=== PATIENT | male | born 1970 | race Caucasian/White ===

== ENCOUNTER 2017-11-14 18:24 | Emergency (ER) | payer MEDICAID, SELFPAY ==
[2017-11-14 18:26] VITALS: BP 196/112; PULSE 100; RESP 18; TEMP 36.4; O2SAT 94; BMI 51.5
--- NOTE | 2017-11-14 19:15 | RAD_ITS ---
STUDY: X-RAY - LEFT FOOT CLINICAL: Male, 47 years old. Pain, swelling TECHNIQUE: 3 view(s) of the foot. COMPARISON: None. FINDINGS: Normal talus, calcaneus, and tarsal bones. Normal visualized subtalar, talonavicular, calcaneocuboid, tarsal and tarsometatarsal articulations. Normal metatarsi. Normal metatarsophalangeal joint of the great toe. Normal tibial and fibular sesamoid bones. Normal interphalangeal joint of the great toe. Normal phalanges of the great toe. Normal second through fifth metatarsophalangeal joints. Normal interphalangeal joints and phalanges of the lesser toes. Radiopaque foreign body in the ball of the foot between the first and second metatarsal heads. RAD/Foot min 3 Views IMPRESSION: No fracture or dislocation. Small radiopaque foreign body ball of the foot between the first and second metatarsal heads. Electronically Signed: Richard Campa DO at 20:45 EDT , Service support ,
--- NOTE | 2017-11-14 19:16 | RAD_ITS ---
STUDY: X-RAY - RIGHT FOOT CLINICAL: Male, 47 years old. Pain TECHNIQUE: 3 view(s) of the foot. COMPARISON: None. FINDINGS: Normal talus, calcaneus, and tarsal bones. Normal visualized subtalar, talonavicular, calcaneocuboid, tarsal and tarsometatarsal articulations. Normal metatarsi. Normal metatarsophalangeal joint of the great toe. Normal tibial and fibular sesamoid bones. Normal interphalangeal joint of the great toe. Normal phalanges of the great toe. Normal second through fifth metatarsophalangeal joints. Normal interphalangeal joints and phalanges of the lesser toes. The soft tissue structures are unremarkable. RAD/Foot min 3 Views IMPRESSION: Normal x-ray examination of the foot. Electronically Signed: Richard Campa DO at 21:42 EDT , Service support ,
--- NOTE | 2017-11-14 19:33 | ED.VISSUMM ---
- ER Visit Summary Date of Service: 11/14/17 Chief Complaint: Bilateral foot pain History of Present Illness: The patient is a 47 M presenting with bilateral foot pain. She states this has been ongoing for the past 5-6 months. He has an appointment with his primary care physician on November 24. He states he walks frequently. He [facility]. The pain is in the bottom of his feet. He also states he ran out of his Lasix a month ago. He denies chest pain or shortness of breath. Denies fever or other complaints. Physical Examination: Vitals are stable. Patient is afebrile. Alert no acute distress. HEENT exam is unremarkable. Neck is supple. Lungs are clear and equal bilaterally. Heart is regular rate and rhythm. Abdomen is soft nontender nondistended. Extremities symmetric edema, no warmth or signs of cellulitis. Normal distal pulses. Skin is warm and dry. No focal neurologic deficit. Remainder of exam is unremarkable. Emergency Department Course and Treatment: BGT 154. Right foot x-ray shows no acute process. Left foot x-ray shows no fracture or dislocation. Small radiopaque foreign body ball of the foot between the first and second metatarsal heads. Patient is given Keflex and lasix. He is advised to follow-up with podiatry and his primary care physician. Advised return ED if worsening complaints. Disposition: Discharge home Impression: Bilateral foot pain, foreign body left foot. This note was generated with [employer] dictation software. It may contain incorrect words, spelling, and punctuation that were not noted in review of the chart prior to signing ED Disposition - Plan for ED Patient: Chief Complaint: Lower Extremity Injury Referrals: Care Physician,No Primary [Primary Care Provider] -
[2017-11-14 19:56] LABS: Bedside Glucose 154 mg/dL (70-110)
--- NOTE | 2017-11-14 21:56 | ED.DEP ---
ED Disposition - Plan for ED Patient: Chief Complaint: Lower Extremity Injury Instructions: ED Foreign Body Soft Tissue Prescriptions: Cephalexin [Keflex] 500 mg PO Q6 #40 capsule Furosemide [Lasix] 60 mg PO DAILY #90 tablet Referrals: Care Physician,Mariella Primary [Primary Care Provider] - Jesus Ramos DPM [STAFF PHYSICIAN] -
[2017-11-14] MEDS: Cephalexin 250 MG Capsule 500 MG PO (22:04)
[2017-11-14] MEDS: oxyCODONE 5 MG Tablet PO (22:04)
== END 2017-11-14 22:06 | disposition home or self-care (01) ==
PROVIDERS: Emergency Provider Emergency Medicine
DX: M79.672 Pain in left foot (principal); M79.671 Pain in right foot; S90.852A Superficial foreign body, left foot, initial encounter; E11.9 Type 2 diabetes mellitus without complications; I10 Essential (primary) hypertension
CPT/HCPCS: 73630; 82962; 99283

== ENCOUNTER 2017-12-11 15:31 | Emergency (ER) | payer MEDICAID, SELFPAY ==
[2017-12-11 15:33] VITALS: BP 163/97; PULSE 106; RESP 17; TEMP 36.7; O2SAT 97; BMI 58.4
--- NOTE | 2017-12-11 15:52 | ED.VISSUMM ---
- ER Visit Summary Date of Service: 12/11/17 Chief Complaint: [] Right knee pain after fall yesterday History of Present Illness: The patient is a 47 M [] patient indicates he slipped and fell struck his right knee while walking up stairs yesterday he has had persistent pain he comes in for evaluation he has no head neck chest or abdominal pain no other extremity pain no hip pain no tib-fib foot or ankle pain he is a very large gentleman he denies any past history Physical Examination: [] On exam again very large body habitus he is awake and alert he points directly to his right knee no other complaints head neck chest unremarkable lungs are clear the heart tones are distant abdomen is obese the lower extremities revealed bilateral brawny edema 4+ that he states is not new and chronic he has had for some time the right knee has mild discomfort to the right knee there is no instability deformity. His hip is nontender he has full extension of the knee he has discomfort with flexion his tib-fib ankle and foot are unremarkable the rest of his exam is entirely unremarkable neurologically he is awake alert moving all 4 resting comforting the bed as long as he does not move the knee he has no complaints Test Results: [] Emergency Department Course and Treatment: [] X-ray shows nothing acute other than arthritis see that report of explained the above the patient also the concept of an occult injury he does have crutches at home he can use he will ice the knee follow-up his family physician is given referral to orthopedics [place] [facility] tablets at bedtime and is to return for change in symptoms Treatment Plan: [] Disposition: [] Home stable Impression: [] Acute right knee injury This note was generated with [employer] dictation software. It may contain incorrect words, spelling, and punctuation that were not noted in review of the chart prior to signing ED Disposition - Plan for ED Patient: Chief Complaint: Lower Extremity Injury Referrals: Care Physician,No Primary [Primary Care Provider] -
--- NOTE | 2017-12-11 16:02 | RAD_ITS ---
STUDY: X-RAY - RIGHT KNEE REASON FOR EXAM: Male, 47 years old. Increased right knee pain and swelling after fall. TECHNIQUE: 4 view(s) of the knee. COMPARISON: None. FINDINGS: Normal visualized distal femur. Normal visualized proximal tibia and fibula. Normal proximal tibiofibular articulation. There is moderate degenerative arthrosis of the medial femorotibial compartment with moderate joint space narrowing. There is moderate degenerative arthrosis of the lateral femorotibial compartment with moderate joint space narrowing. There is moderate degenerative arthrosis of the patellofemoral articulation. Moderate suprapatellar effusion is present. RAD/Knee 4 or More Views IMPRESSION: Moderate tricompartmental osteoarthrosis with no evidence of acute fracture. Electronically Signed: Agustin Kaur DO at 16:52 EDT , Service support ,
[2017-12-11] MEDS: HYDROcodone Bitartrate/Apap 5/325 Tablet PO (16:25)
--- NOTE | 2017-12-11 16:58 | ED.DEP ---
ED Disposition - Plan for ED Patient: Chief Complaint: Lower Extremity Injury Instructions: ED Meniscal Injury Knee Poss Prescriptions: Hydrocodone Bitart/Apap 5-325 [[place] 5MG-325MG] 1 tab PO Q4H PRN PRN 2 Days #7 tab PRN Reason: Pain Naproxen [Naprosyn] 500 mg PO BID PRN #20 tab Referrals: Care Physician,No Primary [Primary Care Provider] - Maciel Funes MD [STAFF PHYSICIAN] -
--- NOTE | 2017-12-11 17:00 | ED.DEP ---
ED Disposition - Plan for ED Patient: Chief Complaint: Lower Extremity Injury Instructions: ED Meniscal Injury Knee Poss Prescriptions: Hydrocodone Bitart/Apap 5-325 [[place] 5MG-325MG] 1 tab PO Q4H PRN PRN 2 Days #7 tab PRN Reason: Pain Naproxen [Naprosyn] 500 mg PO BID PRN #20 tab Referrals: Maciel Funes MD [STAFF PHYSICIAN] - Care Physician,No Primary [Primary Care Provider] -
--- NOTE | 2017-12-11 17:28 | ED.RN ---
pt stated he had crutches at home and was used to using them. denied need for new crutches.
== END 2017-12-11 17:29 | disposition home or self-care (01) ==
PROVIDERS: Emergency Provider Emergency Medicine
DX: S89.91XA Unspecified injury of right lower leg, initial encounter (principal); M17.11 Unilateral primary osteoarthritis, right knee; W01.198A Fall on same level from slipping, tripping and stumbling with subsequent striking against other object, initial encounter; Y93.01 Activity, walking, marching and hiking; Y92.89 Other specified places as the place of occurrence of the external cause; Y99.8 Other external cause status
CPT/HCPCS: 73564; 99283

== ENCOUNTER 2018-03-07 01:33 | Emergency (ER) | payer MEDICAID, SELFPAY ==
[2018-03-07 01:33] VITALS: BP 124/91; PULSE 104; RESP 22; TEMP 36.8; O2SAT 92; BMI 58.6
--- NOTE | 2018-03-07 01:58 | CT_ITS ---
CT/Abdomen/Pelvis W IV Cont ONLY IMPRESSION: Atelectasis and/or small infiltrate in the visualized lingula. Fatty liver. Moderate splenomegaly, slightly increased from previous exam. Previous cholecystectomy. Small hiatal hernia. No evidence for acute pathology. No demonstrated urinary calculi or hydronephrosis. No evidence for diverticulitis or appendicitis. Electronically Signed: Raymundo Jain MD at 3:18 EDT , Service support ,
--- NOTE | 2018-03-07 02:01 | ED.DCSUM_ITS ---
- ER Visit Summary Date of Service: 03/07/18 Chief Complaint: Abdominal pain History of Present Illness: The patient is a 47 M who presents for 12 hours of abdominal pain. Patient states the pain is mainly in the right side of his abdomen and feels like someone is punching him repeatedly. Pain waxes and wanes in intensity. Patient denies any associated nausea, vomiting, diarrhea, constipation, urinary complaints. No chest pain or shortness of breath. Patient states he has been gassy today. Pain is worse if he lays down. He had similar pain 3 months ago that resolved without any intervention. Medical history remarkable for borderline diabetes, GERD, [place] surgery for reflux, cholecystectomy. Patient still has his appendix. He is not on any medications. He does smoke tobacco. No alcohol use. Physical Examination: Vital signs: afebrile, hemodynamically stable, no hypoxia on room air General: well nourished, well developed, orbitally obese, in no distress Skin: warm, dry, no rash, no pallor HEENT: normocephalic and atraumatic; PERRL, EOMI, moist mucous membranes Cardiovascular: Tachycardic rate and rhythm without murmurs, nonpitting peripheral edema, 2+ pulses all distal extremities Respiratory: No increased work of breathing, lungs show occasional mild expiratory wheezes, no rales, rhonchi Abdominal: Abdomen is soft, obese, tender in the right mid and lower quadrant, hyperactive bowel sounds, no guarding or rebound, no masses; exam limited secondary to body habitus MSK: Moves all extremities, no deformities, normal strength, chronic skin changes of the bilateral lower extremities Neuro: Awake and alert, oriented ?4. No facial droop, sensation and motor function intact and symmetric Test Results: Abnormal Lab Results 03/07/18 03/07/18 03/07/18 01:43 01:43 03:10 WBC 10.9 RBC 5.49 Hgb 15.8 Hct 47.6 MCV 86.7 MCH 28.8 MCHC 33.2 RDW 13.5 RDW Differential 42.4 Plt Count 69 L MPV 13.7 H Immature Gran % (Auto) 0.500 Neut % (Auto) 74.6 H Lymph % (Auto) 13.5 L [place] % (Auto) 8.4 Eos % (Auto) 2.8 Baso % (Auto) 0.2 Absolute Neuts (auto) 8.2 H Absolute Lymphs (auto) 1.48 Total Counted Not Reportable Sodium 136 Potassium 3.9 Chloride 99 Carbon Dioxide 29.0 Anion Gap 8 BUN 7 Creatinine 1.05 Estim Creat Clear Calc 92.63 Est GFR (MDRD) Af Amer 97 Est GFR (MDRD) Non-Af 80 BUN/Creatinine Ratio 6.7 L Glucose 257 H Calcium 8.3 L Total Bilirubin 0.30 AST 17 ALT 39 Alkaline Phosphatase 78 Total Protein 7.1 Albumin 3.1 L Globulin 4.0 Albumin/Globulin Ratio 0.8 L Lipase 134 Urine Color Yellow Urine Clarity Clear Urine pH 6.0 Ur Specific [place] 1.020 Urine Protein Negative Urine Glucose (UA) 250 H Urine Ketones Negative Urine Occult Blood 10 H Urine Nitrite Negative Urine Bilirubin Negative Urine Urobilinogen Normal Ur Leukocyte Esterase Negative Urine RBC 0 SEEN Urine WBC 0 SEEN Ur Squamous Epith Cells 0 SEEN Urine Bacteria 0 SEEN Urine Mucus 0 SEEN Clinical Impression(s) from Imaging Studies Abdomen/Pelvis CT 03/07/18 01:58 IMPRESSION: Atelectasis and/or small infiltrate in the visualized lingula. Fatty liver. Moderate splenomegaly, slightly increased from previous exam. Previous cholecystectomy. Small hiatal hernia. No evidence for acute pathology. No demonstrated urinary calculi or hydronephrosis. No evidence for diverticulitis or appendicitis. Electronically Signed: Raymundo Jain MD at 3:18 EDT , Service support , Medications Given Discontinued Medications Hydrocodone Bitart/Acetaminophen ([place] 5mg-325mg) 1 tablet PO X1 ONE Stop: 03/07/18 03:35 Last Admin: 03/07/18 03:39 Dose: 1 tablet Dicyclomine HCl (Bentyl) 20 mg PO X1 ONE Stop: 03/07/18 03:35 Last Admin: 03/07/18 03:39 Dose: 20 mg Sodium Chloride () 1,000 mls @ 1,000 mls/hr IV .Q1H ONE Stop: 03/07/18 02:57 Last Admin: 03/07/18 02:05 Dose: 1,000 mls/hr Morphine Sulfate () 8 mg IV X1 ONE Stop: 03/07/18 01:59 Last Admin: 03/07/18 02:05 Dose: 8 mg Ondansetron HCl (Zofran) 4 mg IV X1 ONE Stop: 03/07/18 01:59 Last Admin: 03/07/18 02:05 Dose: 4 mg Emergency Department Course and Treatment: Patient was given morphine and Zofran for symptomatic relief as well as IV hydration. Labs were checked and CT of the abdomen and pelvis performed. Labs showed a blood glucose of 257, which is sufficient for the diagnosis of diabetes. Patient had no hepatic derangements, electrolyte derangements, and no leukocytosis. Patient had thrombocytopenia which is chronic for patient per chart review. Urinalysis was negative for infection. Patient did have glucosuria but no ketonuria. CT the abdomen and pelvis showed no appendicitis or diverticulitis. It showed no acute process to explain patient's symptoms that would require surgery or admission for further workup. There was concern for possible lingular infiltrate versus atelectasis. Patient has no symptoms concerning for pneumonia , such as fever, cough or shortness of breath, and his exam was not concerning for pneumonia. Thus this is likely atelectasis. Patient was reevaluated and stated he felt better but still had some pain. He was given a dose of [place] and Bentyl for further pain relief. He was given a prescription for Bentyl and Zofran for symptomatic control at home. He will use [id number] pain medication for further pain control. He is to follow-up with his doctor at his scheduled visit this week to discuss his blood sugar and diagnosis of diabetes as well as his abdominal pain. Patient was not started on metformin, as he had contrast today and also has an appointment with his doctor in a few days. Thus management of his diabetes will be deferred to the primary care doctor. Treatment Plan: [] Disposition: [] Impression: New diagnosis of diabetes, abdominal pain This note was generated with [employer] dictation software. It may contain incorrect words, spelling, and punctuation that were not noted in review of the chart prior to signing ED Disposition - Plan for ED Patient: Disposition: Home or Assisted Living Chief Complaint: Abd Pain Instructions: ED Abdominal Pain Unkn Cause, ED Hyperglycemia New Susp Diabetes Prescriptions: Ondansetron [Zofran Odt] 4 mg PO Q8H PRN PRN #10 tab PRN Reason: Nausea Dicyclomine HCl [Bentyl] 20 mg PO TIDAC #20 cap Referrals: Care Physician,No Primary [Primary Care Provider] - Doctor,Your [STAFF PHYSICIAN] - Keep Phil appointment (BLOOD GLUCOSE = 257) Additional Instructions: Your workup today did not show a definite reason for your abdominal pain. Your appendix was normal, and there were no concerning findings that would require admission or surgery. Please use the Zofran as needed for nausea. You may use the dicyclomine for crampy abdominal pain. You may also use [id number] pain medication as needed for additional pain control. Your blood sugar was 257 on your workup, which is consistent with diabetes. Please discuss this with your doctor at your appointment this week, as you will need management of your diabetes. You were not started on any medications today , such as metformin, because you received IV contrast dye during your workup and also because you have a follow-up with your primary care doctor within a few days. If you have any worsening of your condition or any new concerning symptoms, please return immediately to the emergency department for another evaluation.
[2018-03-07] MEDS: Ondansetron 4 MG/2 ML Vial IV (02:05)
[2018-03-07] MEDS: morphine 8 MG/ML Syringe IV (02:05)
[2018-03-07] MEDS: 0.9% Normal Saline 1,000 ML 1000 ML IV (02:05)
[2018-03-07 02:07] LABS: Absolute Lymphocyte Count 1.48 X10^3/ul (0.83-4.51); Absolute Neutrophil Count 8.2 X10^3/uL (2.0-7.7); Basophil# 0.02 X10^3/uL; Basophil% 0.2 % (0-1); Eosinophil# 0.31 X10^3/uL; Eosinophils% 2.8 % (0-5); Hematocrit 47.6 % (40-54); Hemoglobin 15.8 g/dl (13.0-16.5); Lymphocyte # 1.48 X10^3/ul (4.0); Lymphocyte % 13.5 % (19-41); Mean Corp Hgb Conc 33.2 g/gl (32-36); Mean Corpuscular Hgb 28.8 pg (27.0-32.0); Mean Corpuscular Volume 86.7 fL (80-94); Mean Platelet Vol. 13.7 fl (6.2-12.0); Monocyte# 0.92 X10^3/uL; Monocyte% 8.4 % (0-10); Neutrophil # 8.15 X10^3/uL (2.7-7.7); Neutrophil % 74.6 % (47-70); POSITIVE COUNT NO; POSITIVE DIFFERENTIAL NO; POSITIVE MORPHOLOGY NO; Platelet Count 69 K/mm3 (150-450); RBC Distribution Width CV 13.5 % (11.6-14.6); RBC Distribution Width SD 42.4 fl (35.1-43.9); Red Blood Count 5.49 M/mm3 (4.6-6.2); White Blood Count 10.9 K/mm3 (4.4-11.0)
[2018-03-07 02:21] LABS: ALB/GLOB Ratio 0.8 RATIO (0.9-2.4); AST(SGOT) 17 U/L (15-37); Alanine Aminotransfer ALT/SGPT 39 U/L (16-61); Albumin, Serum 3.1 g/dL (3.2-5.0); Alkaline Phosphatase 78 U/L (45-117); Anion Gap 8 (5-15); BUN 7 mg/dL (7-18); BUN/Creat Ratio 6.7 RATIO (10-20); Calcium,Total 8.3 mg/dL (8.5-10.1); Chloride 99 mmol/L (98-107); Creatinine, Serum 1.05 mg/dL (0.70-1.30); EST Glomerular Filtration Rate 80 mL/min (>60); Est Glom Filt Rate - Afr Amer 97 mL/min (>60); Estimated Creatinine Clearance 92.63 ml/min; Glucose 257 mg/dL (74-106); Lipase 134 U/L (73-393); Potassium 3.9 mmol/L (3.5-5.1); Protein, Total 7.1 g/dL (6.4-8.2); Sodium Level 136 mmol/L (136-145)
[2018-03-07 03:15] LABS: Bacteria 0 SEEN /hpf (None Seen); Mucous, Urine 0 SEEN /hpf (<or=2+); Red Blood Cells-Urine 0 SEEN /hpf (0-5); Squamous Epithelial Cells - UA 0 SEEN /hpf (0-5); White Blood Cells 0 SEEN /hpf (0-5)
[2018-03-07 03:16] LABS: Color, Urine Yellow (Yellow); Glucose, Dipstick 250 mg/dl (Normal); Ketone-Dipstick Negative (Negative); Leukocyte Esterase-Dipstick Negative /ul (Negative); Nitrite-Dipstick Negative (Negative); Occult Blood-Urine 10 /ul (Negative); Protein-Dipstick Negative (Negative); Urine Bilirubin Dipstick Negative (Negative); Urine Clarity Clear (Clear); Urine Urobilinogen Normal (Normal)
--- NOTE | 2018-03-07 03:35 | ED.DEP ---
ED Disposition - Plan for ED Patient: Disposition: Home or Assisted Living Chief Complaint: Abd Pain Instructions: ED Abdominal Pain Unkn Cause, ED Hyperglycemia New Susp Diabetes Prescriptions: Ondansetron [Zofran Odt] 4 mg PO Q8H PRN PRN #10 tab PRN Reason: Nausea Dicyclomine HCl [Bentyl] 20 mg PO TIDAC #20 cap Referrals: Care Physician,No Primary [Primary Care Provider] - Doctor,Your [STAFF PHYSICIAN] - Keep Phil appointment (BLOOD GLUCOSE = 257) Additional Instructions: Your workup today did not show a definite reason for your abdominal pain. Your appendix was normal, and there were no concerning findings that would require admission or surgery. Please use the Zofran as needed for nausea. You may use the dicyclomine for crampy abdominal pain. You may also use [id number] pain medication as needed for additional pain control. Your blood sugar was 257 on your workup, which is consistent with diabetes. Please discuss this with your doctor at your appointment this week, as you will need management of your diabetes. You were not started on any medications today, such as metformin, because you received IV contrast dye during your workup and also because you have a follow-up with your primary care doctor within a few days. If you have any worsening of your condition or any new concerning symptoms, please return immediately to the emergency department for another evaluation.
--- NOTE | 2018-03-07 03:38 | DCINST.ED_ITS ---
ED Disposition - Plan for ED Patient: Disposition: Home or Assisted Living Chief Complaint: Abd Pain Instructions: ED Abdominal Pain Unkn Cause, ED Hyperglycemia New Susp Diabetes Prescriptions: Ondansetron [Zofran Odt] 4 mg PO Q8H PRN PRN #10 tab PRN Reason: Nausea Dicyclomine HCl [Bentyl] 20 mg PO TIDAC #20 cap Referrals: Care Physician,No Primary [Primary Care Provider] - Doctor,Your [STAFF PHYSICIAN] - Keep Phil appointment (BLOOD GLUCOSE = 257) Additional Instructions: Your workup today did not show a definite reason for your abdominal pain. Your appendix was normal, and there were no concerning findings that would require admission or surgery. Please use the Zofran as needed for nausea. You may use the dicyclomine for crampy abdominal pain. You may also use [id number] pain medication as needed for additional pain control. Your blood sugar was 257 on your workup, which is consistent with diabetes. Please discuss this with your doctor at your appointment this week, as you will need management of your diabetes. You were not started on any medications today , such as metformin, because you received IV contrast dye during your workup and also because you have a follow-up with your primary care doctor within a few days. If you have any worsening of your condition or any new concerning symptoms, please return immediately to the emergency department for another evaluation.
[2018-03-07] MEDS: HYDROcodone Bitartrate/Apap 5/325 Tablet PO (03:39)
[2018-03-07] MEDS: Dicyclomine 10 MG Capsule 20 MG PO (03:39)
[2018-03-07 03:42] VITALS: BP 135/77; PULSE 97; RESP 18; O2SAT 92
== END 2018-03-07 03:43 | disposition home or self-care (01) ==
PROVIDERS: Emergency Provider Emergency Medicine
DX: R10.9 Unspecified abdominal pain (principal); E11.9 Type 2 diabetes mellitus without complications; E66.9 Obesity, unspecified; K21.9 Gastro-esophageal reflux disease without esophagitis; Z72.0 Tobacco use; Z90.49 Acquired absence of other specified parts of digestive tract
CPT/HCPCS: 74177; 80053; 81001; 83690; 85025; 96361; 96374; 96375; 99284; J7030; Q9967; A4216; J2405

== ENCOUNTER 2018-03-10 08:43 | Emergency (ER) | payer MEDICAID, SELFPAY ==
[2018-03-10 08:45] VITALS: BP 186/102; PULSE 104; RESP 16; TEMP 36.7; O2SAT 93; BMI 55.7
--- NOTE | 2018-03-10 09:26 | ED.DCSUM_ITS ---
- ER Visit Summary Date of Service: 03/10/18 Chief Complaint: Fall with right knee pain History of Present Illness: The patient is a 47 M known history of osteoarthritis to both knees. Last evening around 7:30 PM he tripped and stumbled and fell landing on his right knee. Complaining of worsening pain since that time. He does have chronic knee pain. He is going to see a specialist about that next week. He denies any other injuries from the fall. Physical Examination: Well-appearing morbidly obese male. Vital signs are stable and afebrile. H EENT exam unremarkable atraumatic. C-spine nontender. Back nontender. Lungs clear to auscultation. Heart regular rhythm no murmur. Chest wall nontender. Abdomen is soft nontender, nondistended normal bowel sounds no peritoneal signs. No signs of trauma. Pelvic girdle intact. He can move all 4 extremities are neurovascular intact. He is mild discomfort with flexion-extension of his right knee but he is able to do it. Right hip ankle and foot are nontender. He does have chronic swelling of both legs from lymphedema. Dorsi and plantar flexion is intact. Specifically the right knee the ligaments appear to be intact. The quadriceps patellar tendon and infrapatellar tendon appear to be intact. He can lift his leg off the bed. No gross bony deformities. Neurologically is awake and alert without focal motor deficits. Test Results: Right knee x-ray shows arthritic changes but no acute process. Mild joint space narrowing. No fracture. Emergency Department Course and Treatment: Patient treated with 2 p.o. [place]. Treatment Plan: [place] for pain. Limited Motrin. Ice and elevate the right knee. Follow-up with his specialist next week. Disposition: Discharge Impression: Right knee contusion status post fall Acute on chronic right knee pain with a history of osteoarthritis This note was generated with [employer] dictation software. It may contain incorrect words, spelling, and punctuation that were not noted in review of the chart prior to signing ED Disposition - Plan for ED Patient: Chief Complaint: Other, Pain/Inj Referrals: Gavin Raymundo MD [Primary Care Provider] -
[2018-03-10] MEDS: HYDROcodone Bitartrate/Apap 5/325 Tablet PO (09:28)
--- NOTE | 2018-03-10 09:52 | ED.DEP ---
ED Disposition - Plan for ED Patient: Disposition: Home or Assisted Living Chief Complaint: Other, Pain/Inj Instructions: ED Contusion Lower Ext Prescriptions: Hydrocodone/Acetaminophen [[place] 7.5-325 Tablet] 1 ea PO Q6H PRN PRN #20 tab PRN Reason: Pain Referrals: Gavin Raymundo MD [Primary Care Provider] - Additional Instructions: Ice and elevate the right knee. [place] for pain and Motrin for pain and inflammation. Follow-up with your specialist next week.
--- NOTE | 2018-03-10 09:56 | DCINST.ED_ITS ---
ED Disposition - Plan for ED Patient: Disposition: Home or Assisted Living Chief Complaint: Other, Pain/Inj Instructions: ED Contusion Lower Ext Prescriptions: Hydrocodone/Acetaminophen [[place] 7.5-325 Tablet] 1 ea PO Q6H PRN PRN #20 tab PRN Reason: Pain Referrals: Gavin Raymundo MD [Primary Care Provider] - Additional Instructions: Ice and elevate the right knee. [place] for pain and Motrin for pain and inflammation. Follow-up with your specialist next week.
== END 2018-03-10 10:15 | disposition home or self-care (01) ==
PROVIDERS: Emergency Provider Emergency Medicine; Family Provider Internal Medicine; PCP Internal Medicine
DX: M17.0 Bilateral primary osteoarthritis of knee (principal); S80.01XA Contusion of right knee, initial encounter; W01.0XXA Fall on same level from slipping, tripping and stumbling without subsequent striking against object, initial encounter; Y93.9 Activity, unspecified; Y92.9 Unspecified place or not applicable; Y99.9 Unspecified external cause status; R19.7 Diarrhea, unspecified; E11.9 Type 2 diabetes mellitus without complications; I10 Essential (primary) hypertension; Z72.0 Tobacco use
CPT/HCPCS: 73562; 99283

== ENCOUNTER → 2018-03-25 12:34 | Outpatient (CLI) | payer MEDICAID, SELFPAY ==
--- NOTE | 2018-03-25 12:36 | VDLE_ITS ---
Reason For Study: SWELLING RIGHT LEFT GSV is normal. GSV is normal. CFV is compressible, spontaneous, phasic, CFV is compressible, spontaneous, phasic, competent and demonstrates normal competent, and demonstrates normal augmentation. augmentation. FV, POP V, and T/P Trunk dilated and non- FV is compressible, spontaneous, phasic, compressible with intraluminal echoes. competent and demonstrates normal PTV is compressible. augmentation. RT PerV is compressible. POP V is compressible, spontaneous, phasic, Procedure competent and demonstrates normal Exam performed in department. augmentation. A preliminary report was called and/or faxed T/P Trunk is compressible. to [place]. PTV is compressible. LT PerV is compressible. Interpretation Summary Acute deep vein thrombosis is noted in the right femoral vein. Acute deep vein thrombosis is noted in the right popliteal vein. Acute deep vein thrombosis is noted in the right tibio-peroneal trunk. The remainder of the right lower extremity deep venous system is patent and compressible. The right common femoral vein is competent. Deep veins of the left lower extremity are patent and compressible segmentally. There is no evidence of left lower extremity deep vein thrombosis. Valvular competence appears intact within the proximal deep venous system on the left . The greater saphenous veins appear bilaterally patent and compressible segmentally. Ordering Physician: Gavin Raymundo Referring Physician: Gavin Raymundo Performed By: Hilda Fritz RVT and Student
--- NOTE | 2018-03-28 07:31 | LEAS ---
Arterial Study - Arterial Study Arterial Study: This is a 47-year-old male with a history of hypertension, diabetes mellitus, obesity, and smoking. The patient presents with bilateral lower extremity pain. Suspecting the presence of atherosclerotic peripheral arterial occlusive disease, the patient was brought to the noninvasive vascular laboratory at this time for the purpose of bilateral noninvasive lower extremity arterial assessment. Doppler signal assessment was used to evaluate the pulses at ankle level bilaterally. The posterior tibial and dorsalis pedis pulses were triphasic bilaterally. Segmental limb pressures were obtained bilaterally. The right ankle pressure, as determined by posterior tibial pulse, was measured at 201 mmHg. The right ankle pressure, as determined by dorsalis pedis pulse, was measured at 177 mmHg. The right digital pressure was measured at 192 mmHg. The left ankle pressure, as determined by posterior tibial pulse, was measured at 212 mmHg. The left ankle pressure, as determined by dorsalis pedis pulse, was measured at 210 mmHg. The left digital pressure was measured at 169 mmHg. Resting ankle-brachial indices were calculated bilaterally. The resting right ankle-brachial index was calculated to be 1.16. The resting left ankle-brachial index was calculated to be 1.22. Digital-brachial indices were calculated bilaterally. The right digital-brachial index was calculated to be 1.10. The left digital-brachial index was calculated to be 0.97. Impression: Based upon the findings of this resting noninvasive lower extremity arterial study, there is no evidence of significant atherosclerotic peripheral arterial occlusive disease in the lower extremities bilaterally. Triphasic waveforms were noted at ankle level bilaterally. Resting ankle-brachial indices were bilaterally normal. Digital-brachial indices were also normal bilaterally. In summary, this represents a normal resting noninvasive lower extremity arterial study bilaterally.
--- NOTE | 2018-03-28 07:37 | LEAS_ITS ---
Arterial Study - Arterial Study Arterial Study: This is a 47-year-old male with a history of hypertension, diabetes mellitus, obesity, and smoking. The patient presents with bilateral lower extremity pain. Suspecting the presence of atherosclerotic peripheral arterial occlusive disease, the patient was brought to the noninvasive vascular laboratory at this time for the purpose of bilateral noninvasive lower extremity arterial assessment. Doppler signal assessment was used to evaluate the pulses at ankle level bilaterally. The posterior tibial and dorsalis pedis pulses were triphasic bilaterally. Segmental limb pressures were obtained bilaterally. The right ankle pressure, as determined by posterior tibial pulse, was measured at 201 mmHg. The right ankle pressure, as determined by dorsalis pedis pulse, was measured at 177 mmHg. The right digital pressure was measured at 192 mmHg. The left ankle pressure, as determined by posterior tibial pulse, was measured at 212 mmHg. The left ankle pressure, as determined by dorsalis pedis pulse, was measured at 210 mmHg. The left digital pressure was measured at 169 mmHg. Resting ankle-brachial indices were calculated bilaterally. The resting right ankle-brachial index was calculated to be 1.16. The resting left ankle- brachial index was calculated to be 1.22. Digital-brachial indices were calculated bilaterally. The right digital- brachial index was calculated to be 1.10. The left digital-brachial index was calculated to be 0.97. Impression: Based upon the findings of this resting noninvasive lower extremity arterial study, there is no evidence of significant atherosclerotic peripheral arterial occlusive disease in the lower extremities bilaterally. Triphasic waveforms were noted at ankle level bilaterally. Resting ankle-brachial indices were bilaterally normal. Digital-brachial indices were also normal bilaterally. In summary, this represents a normal resting noninvasive lower extremity arterial study bilaterally.
== END ==
PROVIDERS: Family Provider Internal Medicine; PCP Internal Medicine; Visit Provider Internal Medicine
DX: I73.9 Peripheral vascular disease, unspecified (principal); M79.89 Other specified soft tissue disorders
CPT/HCPCS: 93922; 93970

== ENCOUNTER → 2018-04-13 10:30 | Outpatient (CLI) | payer MEDICAID, SELFPAY ==
[2018-04-13 12:28] LABS: Anion Gap 3 (5-15); BUN 5 mg/dL (7-18); BUN/Creat Ratio 6.3 RATIO (10-20); Calcium,Total 8.2 mg/dL (8.5-10.1); Chloride 99 mmol/L (98-107); Cholesterol 171 mg/dL (200); Creatinine, Serum 0.79 mg/dL (0.70-1.30); EST Glomerular Filtration Rate 112 mL/min (>60); Est Glom Filt Rate - Afr Amer 135 mL/min (>60); Glucose 225 mg/dL (74-106); High Density Lipoprotein 39 mg/dL; Potassium 3.9 mmol/L (3.5-5.1); Sodium Level 135 mmol/L (136-145); Triglycerides 138 mg/dL; Very Low Density Lipoprotein 28 mg/dL (5-40)
[2018-04-13 12:29] LABS: Hemoglobin A1c 8.8 % (4.2-6.3)
== END ==
PROVIDERS: Family Provider Internal Medicine; PCP Internal Medicine; Referring Provider Internal Medicine; Visit Provider Internal Medicine
DX: E11.9 Type 2 diabetes mellitus without complications (principal); I10 Essential (primary) hypertension
CPT/HCPCS: 36415; 80048; 80061; 83036

== ENCOUNTER 2018-04-26 12:03 | Outpatient (RCR) | payer MEDICAID, SELFPAY ==
--- NOTE | 2018-04-27 14:59 | HP.OTEVAL ---
Patient's Visit Information EUSEBIA HECTOR is a 47 year old M, referred to Occupational Therapy by Gavin Raymundo MD, with a diagnosis of lymphedema. Date of Evaluation: 04/26/18 Occupational Therapist: Marley Coulter, ISHMAELR/Holley, CHT - Subjective Subjective: pt arrives to OT for evaluation for LE lymphedema- pt states he has struggled with LE edema for years. He states he was told to get compression hose for his LE but insurance would not pay for them. pt states he understands insurance will not cover the compression hose but he is going to try to get assistance from [employer]. Pt states he has been through lymphedema mtg. before but states he does not follow any exercise or skin care. - Pain bilateral leg pain 7 Pain Intensity Range: 3, 9 - Lymphedema (Circumferential Measure) Ankle: right 37cm left 32cm Lower calf: right 43cm left 35mc Largest calf: right 57cm left 53cm Below knee: right 54cm left 50cm - Lower Limb Functional Index Lower Extremity Functional Score: 25 - Goals Demonstrate adequate knowledge of self-massage by 2nd week: Yes Demonstrate adequate knowledge skin care/prec by 2nd week: Yes Demonstrate adequate knowledge therapeutic exercises by d/c: Yes Select approp compression garment w/donning/care/wear by d/c: Yes Voice need to replace compression garment every 4-6mo by dc: Yes - Rehabilitation General Assessment: Pt demo with stage III lymphedema- skin discoloration and dry flaking skin- noted scratch barrow due to itchy skin. pt demo need for Ed on lymphedema mtg, skin care and use of compression garments. Therapist ed. pt on skin care- need of compression garment, and ex to help mtg LE lymphedema. pt demo understanding and reported he was going to get script from and get his compression socks from [facility]- pt know insurance does not cover the compression socks- he states he does not have the money right now but is going to see if he can get help from [employer]. Advised 30-40mmHg compression sock with closed toe. Rehabilitation Potential: Questionable - Anticipated Interventions Anticipated Interventions: Education re Diagnosis, Manual Lymph Drainage, Education re Life-long lymphedema Management, Education re Skin Care and Precautions, Education re Self Massage Techniques, Education re Correct Donning Tech,Care&Wearing Sched Comp Garments, Home Program - Visit Plan TEXT: Thank you for the opportunity to evaluate your patient. For Medicare and Medicare HMO plans, please review the plan of care and approve it. It will need to be FAXED BACK to us at [phone] for Medicare purposes. Please let me know if there are questions or concerns regarding this plan of care. Physician Signature: Date:
--- NOTE | 2018-10-17 14:39 | HP.OT.NRP ---
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 The following Plan of Care was established for this patient: - Anticipated Interventions Anticipated Interventions: Education re Diagnosis, Manual Lymph Drainage, Education re Life-long lymphedema Management, Education re Skin Care and Precautions, Education re Self Massage Techniques, Education re Correct Donning Tech,Care&Wearing Sched Comp Garments, Home Program This patient was last seen in our office 04/26/19. Pertinent comments regarding their Occupational therapy will appear below: PT was seen for inital OT eval only. No further apts scheduled and due to timelapse in therapy services pt D/C at this time. At this point I will be discontinuing this patient from occupational therapy. I would be happy to see this patient again in the future if found appropriate by the physician. Thank you! Marley Coulter, OTR/L, CHT
== END 2018-04-26 19:00 | disposition home or self-care (01) ==
LOC: OT 12:03
PROVIDERS: Family Provider Internal Medicine; PCP Internal Medicine; Referring Provider Internal Medicine; Visit Provider Internal Medicine
DX: I89.0 Lymphedema, not elsewhere classified (principal)
CPT/HCPCS: 97166

== ENCOUNTER 2018-05-11 08:24 | Outpatient (RCR) | payer MEDICAID, SELFPAY | END 2018-05-11 23:59 | LOC: DC 08:24 | PROVIDERS: Family Provider Internal Medicine; PCP Internal Medicine; Visit Provider Internal Medicine | DX: E11.9 Type 2 diabetes mellitus without complications (principal); Z71.3 Dietary counseling and surveillance ==

== ENCOUNTER → 2018-05-19 20:14 | Outpatient (CLI) | payer MEDICAID, SELFPAY | PROVIDERS: Family Provider Internal Medicine; PCP Internal Medicine; Visit Provider Internal Medicine | DX: G47.30 Sleep apnea, unspecified (principal) | CPT/HCPCS: 95811 ==

== ENCOUNTER 2018-08-13 10:10 | Inpatient (IN) | payer MEDICAID, SELFPAY ==
[2018-08-13 10:12] VITALS: BP 161/92; PULSE 104; RESP 16; TEMP 36.3; O2SAT 94; BMI 55.0
--- NOTE | 2018-08-13 10:47 | VDLE_ITS ---
Reason For Study: SWELLING RIGHT SFJ is compressible. There is a vascularized echoic structure in the right groin region that measures 4.2 x 1.87 cm. FV is compressible, spontaneous, phasic, competent and demonstrates normal augmentation. POP V is compressible, spontaneous, phasic, competent and demonstrates normal augmentation. T/P Trunk is compressible. PTV is compressible. RT PerV is compressible. GSV is normal. Procedure Technically limited study due to pt body habitus. CFV was not well visualized due to pannus. FV and proximal calf veins were not well visualized. Interpretation Summary Deep veins of the right lower extremity are patent and compressible segmentally. There is no evidence of right lower extremity deep vein thrombosis. Valvular competence appears intact within the proximal deep venous system on the right . The right greater saphenous vein appears patent and compressible segmentally. The right common femoral vein, femoral vein, and proximal calf veins were not well visualized. A vascularized structure is noted in the right groin, measuring 4.2 cm x 1.87 cm. This may represent lymphadenopathy. Clinical correlation is advised. Ordering Physician: Alice Jolly Performed By: Genoveva Blandon, MARCOS, RVT
[2018-08-13 11:22] LABS: Absolute Lymphocyte Count 1.03 X10^3/ul (0.83-4.51); Absolute Neutrophil Count 12.2 X10^3/uL (2.0-7.7); Anion Gap 7 (5-15); BUN 14 mg/dL (7-18); BUN/Creat Ratio 15.4 RATIO (10-20); Basophil# 0.03 X10^3/uL; Basophil% 0.2 % (0-1); Calcium,Total 9.1 mg/dL (8.5-10.1); Chloride 95 mmol/L (98-107); Creatinine, Serum 0.91 mg/dL (0.70-1.30); EST Glomerular Filtration Rate 94 mL/min (>60); Eosinophil# 0.09 X10^3/uL; Eosinophils% 0.6 % (0-5); Est Glom Filt Rate - Afr Amer 114 mL/min (>60); Estimated Creatinine Clearance 105.73 ml/min; Glucose 403 mg/dL (74-106); Hematocrit 46.7 % (40-54); Hemoglobin 15.4 g/dl (13.0-16.5); Lymphocyte # 1.03 X10^3/ul (4.0); Lymphocyte % 7.1 % (19-41); Mean Corpuscular Hgb 28.8 pg (27.0-32.0); Mean Corpuscular Volume 87.5 fL (80-94); Mean Platelet Vol. 13.1 fl (6.2-12.0); Monocyte# 1.14 X10^3/uL; Monocyte% 7.8 % (0-10); Neutrophil # 12.16 X10^3/uL (2.7-7.7); Neutrophil % 83.3 % (47-70); POSITIVE COUNT NO; POSITIVE DIFFERENTIAL NO; POSITIVE MORPHOLOGY NO; Platelet Count 125 K/mm3 (150-450); Potassium 4.1 mmol/L (3.5-5.1); RBC Distribution Width SD 44.8 fl (35.1-43.9); Red Blood Count 5.34 M/mm3 (4.6-6.2); Sodium Level 132 mmol/L (136-145); White Blood Count 14.6 K/mm3 (4.4-11.0)
[2018-08-13 11:39] LABS: Lactic Acid 1.7 mmol/L (0.4-2.0)
--- NOTE | 2018-08-13 12:01 | ED.VISSUMM ---
- ER Visit Summary Date of Service: 08/13/18 Chief Complaint: [Redness and swelling to the right thigh] History of Present Illness: The patient is a 48 M [presents the emergency department with 3-day history of redness and swelling to his right thigh. Patient complains of pain in the right leg. Patient denies any fever or chills. Patient is concerned because he was diagnosed with DVT a month ago and will had been on Eliquis however he states that he has been off of that for 2-3 weeks due to the fact that he did not get any refills on his medication. Patient denies any chest pain or shortness of breath. He] Physical Examination: [HEENT-PERRLA, EOMI. Cranial nerves II through XII grossly intact. TMs clear. Mucous membranes moist. No adenopathy. Cardiovascular-regular rate and rhythm without murmur or ectopy Lungs-clear to auscultation, chest wall stable without crepitus or subcu emphysema Abdomen-normoactive bowel sounds, soft, nontender, no rebound or rigidity, no peritoneal signs. Extremities-intact ?4, normal range of motion, normal pulses. Right leg-patient has diffuse erythema and cellulitis of the lower extremity involving the lower leg as well as the upper thigh. Test Results: [Venous duplex of the right leg was negative for DVT. CBC with differential showed a white of 14.6, hemoglobin 15, hematocrit 47, placed 125. Chemistries unremarkable. Glucose was elevated 403. Lactate was 1.7.] Emergency Department Course and Treatment: [Patient was started on Unasyn 3 g IV.] Treatment Plan: [Admit for IV antibiotics] Disposition: [Admit] Impression: [Cellulitis right leg Hyperglycemia] This note was generated with [employer] dictation software. It may contain incorrect words, spelling, and punctuation that were not noted in review of the chart prior to signing ED Disposition - Plan for ED Patient: Referrals: Gavin Raymundo MD [Primary Care Provider] -
[2018-08-13 12:32] VITALS: BP 171/108; PULSE 98; RESP 18
--- NOTE | 2018-08-13 12:36 | PCM.HP.STD ---
Problem List (1) Thrombocytopenia Status: Chronic (2) DVT (deep venous thrombosis) Status: Resolved (3) Sleep apnea Status: Chronic (4) Osteoarthritis Status: Chronic (5) Bilateral lower extremity edema Status: Chronic (6) Type 2 diabetes mellitus Status: Chronic (7) History of gallstones Status: Resolved (8) History of esophageal disorder Status: Chronic (9) Hypertension Status: Chronic History of Present Illness Date of Admission: 08/13/18 Chief Complaint: Right thigh swelling and redness. The patient is a 48 year old M who presents to the Emergency Room due right lower extremity redness, warmth and discomfort. Patient states he was concerned for DVT. He was diagnosed with DVT around March or April 2018 in the right lower extremity. He took Eliquis for 1 month and then stopped taking on his own. Patient reports in the past 3 days his right thigh area became red, warm to touch and painful. He denies fever, chills. Denies chest pain, shortness of breath. Lower extremity ultrasounds in ER negative for DVT. Patient reports he is not taking any medications currently and has a history of type 2 diabetes mellitus, hypertension, osteoarthritis, KRYSTAL, tobacco dependence, peripheral vascular disease/chronic lymphedema, chronic thrombocytopenia and history of DVT as noted above. Blood pressure elevated in ER. Blood glucose greater than 400 on admission. When asked patient why he is not taking his medications and stopped taking his Eliquis after 1 month, patient states he ran out. He states he called his primary care physician office and is not sending new scripts. Discussed with primary care provider who states patient refuses to be seen in office. Past Medical History Past Medical History (Chronic Problems): Chronic Problems (Last Reviewed 04/19/18 @ 15:19 by Ailin Brady) Thrombocytopenia (Chronic) Sleep apnea (Chronic) Osteoarthritis (Chronic) Bilateral lower extremity edema (Chronic) Type 2 diabetes mellitus (Chronic) History of esophageal disorder (Chronic) Hypertension (Chronic) Medical History: Medical History (Last Reviewed 04/19/18 @ 15:19 by Ailin Brady) DVT (deep venous thrombosis) (Acute) I82.409 History of gallstones (Acute) Z87.19 History of esophageal disorder (Chronic) Z87.19 Hypertension (Chronic) I10 Allergies ketorolac [From Toradol] Adverse Reaction (Verified 08/13/18 10:11) Upset Stomach NSAIDS (Non-Steroidal Anti-Inflamma Adverse Reaction (Verified 08/13/18 10:11) Upset Stomach Home Medications: Ambulatory Orders Medication Instructions Recorded Ondansetron [Zofran Odt] 4 mg PO Q8H PRN PRN #10 tab 03/07/18 apixaban 5 mg (74 tabs) tablets in See Rx Instructions PO PER PKG DIR 03/25/18 a dose pack #74 tab metformin 1,000 mg tablet 1,000 mg PO BID #180 tab 04/13/18 lisinopril 40 mg tablet 40 mg PO DAILY #90 tab 04/19/18 tramadol 50 mg tablet 50 mg PO Q12H PRN #60 tab 04/19/18 Blood Pressure Test Kit [Blood 1 unit .ROUTE .MEDSULY 08/13/18 Pressure Monitor Manual] Blood Sugar Diagnostic [Contour 0 unit .ROUTE .MEDSUPPLY 08/13/18 Test Strip] Blood-Glucose Meter [Contour] 0 unit .ROUTE .MEDSUPPLY 08/13/18 Compr.stocking,Thigh,Reg,Large 0 unit .ROUTE .MEDSUPPLY 08/13/18 [Compression Thigh Stocking] Lancets 0 unit .ROUTE .MEDSUPPLY 08/13/18 Surgical History: - - Amando fundoplication, cholecystectomy. Psychiatric History: No pertinent psych hx Lives: Alone Smoking Status: Current every day smoker Tobacco Use: Cigarettes Alcohol: None Drugs: None - *Family History Maternal Family History: Family History (Last Reviewed 08/13/18 @ 12:38 by PAT Hunt) Mother Hypertension Diabetes Heart disease Sister Hypertension Diabetes Crohns disease Brother Diabetes Paternal Family History: Family History (Last Reviewed 08/13/18 @ 12:38 by PAT Hunt) Mother Hypertension Diabetes Heart disease Sister Hypertension Diabetes Crohns disease Brother Diabetes Review of Systems Constitutional: Denies: Chills, Fever, Weight Change HEENT: Denies: Head Aches, Sinus Congestion, Sinus Drainage Cardiovascular: Reports: Edema - Chronic bilateral lower extremities. Denies: Chest Pain, Palpitations Respiratory: Denies: Cough, Shortness of breath at rest, Sputum production Gastrointestinal: Denies: Abdominal Pain, Nausea, Vomiting Genitourinary: Denies: Dysuria Musculoskeletal: Reports: - - Right thigh pain. Denies: Joint Pain, Joint Tenderness Skin: Reports: - - Right thigh redness, warmth. Neurological: Denies: Numbness, Tingling, Focal weakness Psychiatric: Denies: Anxiety, Depression, Homicidal Ideations, Suicidal Ideations Hematologic/ Lymphatic: Denies: Easy Bruising, Easy Bleeding VTE Information - Inpt Only VTE Present on Admission: No VTE Mechan Device Prophylaxis: None VTE Pharm Prophylaxis ordered?: Yes - Physical Exam General: Alert, Oriented x3, Cooperative, No apparent distress HEENT: Atraumatic, PERRLA, EOMI, Normocephalic Neck: Supple, No JVD, Negative Carotid Bruits Lungs: Clear to auscultation, Diminished Cardiovascular: Regular rate, Regular Rhythm, Normal S1, Normal S2, No murmurs Abdomen: Bowel Sounds Present, Soft, Non Tender, Non-Distended, Obese Extremities: No clubbing, No cyanosis, Capillary Refill Less than 3 Seconds, Edema - Bilateral lower extremities, chronic Skin: - - Chronic venous stasis changes bilateral lower extremities with dryness/flaking, right groin area with beefy red area/gunner appearance, diffuse erythema right thigh with warmth. Musculoskeletal: No Tenderness to Palpation of Joints or Extremities Neurological: Cranial nerves II-XII grossly intact, Neuro grossly intact Psych/Mental Status: Normal Affect, Appropriate Vital Signs Temp Pulse Resp BP Pulse Ox 97.4 F L 98 18 171/108 H 94 08/13/18 10:12 08/13/18 12:32 08/13/18 12:32 08/13/18 12:32 08/13/18 10:12 Weight: 395 lb Body Mass Index (BMI) 55.0 Finger Stick Blood Glucose 154 Laboratory Tests Past 24 Hrs 08/13/18 08/13/18 08/13/18 10:53 10:53 10:53 WBC 14.6 H RBC 5.34 Hgb 15.4 Hct 46.7 MCV 87.5 MCH 28.8 MCHC 33.0 RDW 14.0 RDW Differential 44.8 H Plt Count 125 L MPV 13.1 H Immature Gran % (Auto) 1.000 H Neut % (Auto) 83.3 H Lymph % (Auto) 7.1 L [place] % (Auto) 7.8 Eos % (Auto) 0.6 Baso % (Auto) 0.2 Absolute Neuts (auto) 12.2 H Absolute Lymphs (auto) 1.03 Total Counted Not Reportable Sodium 132 L Potassium 4.1 Chloride 95 L Carbon Dioxide 30.0 Anion Gap 7 BUN 14 Creatinine 0.91 Estim Creat Clear Calc 105.73 Est GFR (MDRD) Af Amer 114 Est GFR (MDRD) Non-Af 94 BUN/Creatinine Ratio 15.4 Glucose 403 H Lactic Acid 1.7 Calcium 9.1 Assessment/Plan All Active Problems (Last Reviewed 04/19/18 @ 15:19 by Ailin Brady) DVT (deep venous thrombosis) (Resolved) History of gallstones (Resolved) 1. Right lower extremity cellulitis-diffuse erythema right thigh. Right groin area with beefy red area/gunner appearance. Started on IV Unasyn in the ER. Add Diflucan. Mild leukocytosis. Afebrile. PRN pain regimen. Elevate right lower extremity. 2. Type 2 diabetes mellitus with hyperglycemia on admission-glucose greater than 400 on admission. Hemoglobin A1c from April 2018 8.8%. Patient was placed on metformin in the past which she has not been taking. Accu-Chek ACHS with SSI. Resume metformin at discharge. 3. Hypertension, uncontrolled due to noncompliance-resume previously prescribed lisinopril. Hydralazine as needed for systolic blood pressure greater than 160. 4. Osteoarthritis-patient takes tramadol every 12 as needed. 5. Recent history of DVT April 2018-previously prescribed Eliquis which he took for a month, then discontinued. Duplex ultrasound on admission negative for DVT. 6. Obstructive sleep apnea-patient with sleep study May 2018, prescribed BiPAP 26/04. Patient non-compliant. 7. Chronic venous stasis bilateral lower extremities/chronic lymphedema-Jens wraps bilateral lower extremities. 8. Chronic thrombocytopenia-patient was referred to hematology which he has not followed up with. 9. Morbid obesity- Encourage diet and lifestyle modifications. DVT prophylaxis- Lovenox SC This patient was seen by PAT Hunt under the supervision of Dr. Arriaza.
[2018-08-13 14:22] VITALS: BMI 55.0; BMI 55.1
[2018-08-13 14:30] VITALS: PULSE 110
[2018-08-13] MEDS: Lisinopril 40 MG Tablet PO (14:49)
[2018-08-13] MEDS: Insulin Lispro 100 UNIT/ML INSULN.PEN SC (14:53)
[2018-08-13 15:39] LABS: Hemoglobin A1c 10.5 % (4.2-6.3)
[2018-08-13 15:41] LABS: Bedside Glucose 325 mg/dL (70-110)
--- NOTE | 2018-08-13 16:23 | CM.UR ---
apns completed. Met face to face with patient, introduced myself and explained my role. He states he has his sister to help if needed. States he rides bus for transportation. Denies any needs. States CPAP went to old address and he is trying to track it down. The landlord is trying to contact the tenants to see if they received it. Complained that pcp is only giving meds on monthly supplies with no refills. States he would call but never get anything taken care of. Instructed that he when he is out of refills to have the pharmacy send a refill request to provider--explained that will get filled faster then him calling the office. Natanael Magaña RN, CCM.
[2018-08-13] MEDS: 0.9% Normal Saline 1,000 ML 150 ML IV (18:18)
[2018-08-13] MEDS: Enoxaparin 40 MG/0.4 ML Syringe SC (18:19)
[2018-08-13 18:20] VITALS: BP 158/65; PULSE 101
[2018-08-13] MEDS: Metoprolol(XL)Succ 25 MG Tablet PO (18:20)
[2018-08-13] MEDS: traMADol 50 MG Tablet PO (18:37)
[2018-08-13 22:00] VITALS: BP 137/68; PULSE 88; RESP 16; TEMP 37.4; O2SAT 92
[2018-08-13] MEDS: oxyCODONE 5 MG Tablet PO (22:12)
[2018-08-13] MEDS: Insulin Lispro 100 UNIT/ML INSULN.PEN 20 UNIT SC (22:13)
[2018-08-13] MEDS: Acetaminophen 325 MG Tablet 650 MG PO (22:13)
[2018-08-13] MEDS: 0.9% NaCl Peripheral Flush Adult/Peds IV (22:17)
[2018-08-13 22:45] VITALS: PULSE 89; O2SAT 92
[2018-08-13 23:25] LABS: Bedside Glucose 458 mg/dL (70-110)
[2018-08-14] VITALS (7 sets, daily range): BP systolic 134–144; BP diastolic 71–82; PULSE 83–100; RESP 16–18; TEMP 36.6–37; O2SAT 94–96
[2018-08-14 00:10] LABS: Bedside Glucose > 500 mg/dL (70-110)
[2018-08-14] MEDS: 0.9% NaCl Peripheral Flush Adult/Peds IV (00:10)
[2018-08-14 00:32] LABS: Glucose 260 mg/dL (74-106)
[2018-08-14] MEDS: Enoxaparin 40 MG/0.4 ML Syringe SC (05:57)
[2018-08-14] MEDS: oxyCODONE 5 MG Tablet PO ×3 (05:57→22:33)
[2018-08-14] MEDS: 0.9% Normal Saline 1,000 ML 150 ML IV ×2 (05:58→14:50)
[2018-08-14 07:03] LABS: Erythrocyte Sedimentation Rate 35 mm/hr (0-15)
[2018-08-14] MEDS: Insulin Lispro 100 UNIT/ML INSULN.PEN SC ×4 (07:04→22:34)
[2018-08-14 07:06] LABS: Hematocrit 49.7 % (40-54); Hemoglobin 15.7 g/dl (13.0-16.5); Mean Corp Hgb Conc 31.6 g/gl (32-36); Mean Corpuscular Hgb 28.9 pg (27.0-32.0); Mean Corpuscular Volume 91.4 fL (80-94); Mean Platelet Vol. 12.6 fl (6.2-12.0); Platelet Count 141 K/mm3 (150-450); RBC Distribution Width CV 14.4 % (11.6-14.6); RBC Distribution Width SD 48.4 fl (35.1-43.9); Red Blood Count 5.44 M/mm3 (4.6-6.2); White Blood Count 13.3 K/mm3 (4.4-11.0)
[2018-08-14 07:16] LABS: Bedside Glucose 165 mg/dL (70-110)
[2018-08-14 07:19] LABS: Scan Indicated on CBC? Y/N NO
[2018-08-14 07:22] LABS: ALB/GLOB Ratio 0.6 RATIO (0.9-2.4); AST(SGOT) 26 U/L (15-37); Alanine Aminotransfer ALT/SGPT 37 U/L (16-61); Albumin, Serum 2.6 g/dL (3.2-5.0); Alkaline Phosphatase 87 U/L (45-117); Anion Gap 9 (5-15); BUN 14 mg/dL (7-18); BUN/Creat Ratio 17.2 RATIO (10-20); Calcium,Total 8.8 mg/dL (8.5-10.1); Chloride 101 mmol/L (98-107); Cholesterol 140 mg/dL (200); Creatinine, Serum 0.81 mg/dL (0.70-1.30); EST Glomerular Filtration Rate 108 mL/min (>60); Est Glom Filt Rate - Afr Amer 130 mL/min (>60); Estimated Creatinine Clearance 118.79 ml/min; Globulin 4.6 g/dL (2.2-4.2); Glucose 127 mg/dL (74-106); High Density Lipoprotein 25 mg/dL; Magnesium 2.2 mg/dL (1.6-2.6); Phosphorus 3.9 mg/dL (2.5-4.9); Potassium 3.7 mmol/L (3.5-5.1); Protein, Total 7.2 g/dL (6.4-8.2); Sodium Level 143 mmol/L (136-145); Triglycerides 142 mg/dL; Very Low Density Lipoprotein 28 mg/dL (5-40)
[2018-08-14] MEDS: Metoprolol(XL)Succ 25 MG Tablet PO (09:31)
[2018-08-14] MEDS: Lisinopril 40 MG Tablet PO (09:33)
[2018-08-14] MEDS: Docusate Sodium 100 MG Capsule PO ×2 (09:33→22:34)
--- NOTE | 2018-08-14 12:14 | PN_ITS ---
Subjective: Patient seen and examined. Reports improvement in right lower extremity pain, redness, warmth. Denies fever, chills. States he ambulated to restroom without any right lower extremity pain. Denies other current complaints. - Physical Exam General: Alert, Oriented x3, Cooperative HEENT: Atraumatic, PERRLA, EOMI, Normocephalic Neck: Supple, No JVD, Negative Carotid Bruits Lungs: Clear to auscultation, Diminished Cardiovascular: Regular rate, Regular Rhythm, Normal S1, Normal S2, No murmurs Abdomen: Bowel Sounds Present, Soft, Non Tender, Non-Distended, Obese Extremities: No clubbing, No cyanosis, Edema - Bilateral lower extremities, chronic. Right greater than left. Skin: - - Chronic venous stasis changes bilateral lower extremities with dryness/flaking, right groin area with beefy red area/gunner appearance, diffuse erythema right thigh with warmth, improving. Musculoskeletal: No Tenderness to Palpation of Joints or Extremities Neurological: Cranial nerves II-XII grossly intact, Neuro grossly intact Psych/Mental Status: Normal Affect, Appropriate Vital Signs Temp Pulse Resp BP Pulse Ox 98.6 F 84 18 144/78 H 96 08/14/18 07:39 08/14/18 09:31 08/14/18 07:39 08/14/18 07:39 08/14/18 07:39 Oxygen Flow Rate (L/min) 2 Oxygen Delivery Method Nasal Cannula Weight: 395 lb Body Mass Index (BMI) 55.0 Finger Stick Blood Glucose 154 Intake and Output for Last 24 Hours 08/12/18 08/13/18 08/14/18 23:59 23:59 23:59 Intake Total 3902 / 3902 Balance 3902 / 3902 Laboratory Tests Past 24 Hrs 08/13/18 08/14/18 08/14/18 10:53 00:15 05:35 WBC 13.3 H RBC 5.44 Hgb 15.7 Hct 49.7 MCV 91.4 MCH 28.9 MCHC 31.6 L RDW 14.4 RDW Differential 48.4 H Plt Count 141 L MPV 12.6 H ESR 35 H Sodium Potassium Chloride Carbon Dioxide Anion Gap BUN Creatinine Estim Creat Clear Calc Est GFR (MDRD) Af Amer Est GFR (MDRD) Non-Af BUN/Creatinine Ratio Glucose 260 H Hemoglobin A1c 10.5 H Calcium Phosphorus Magnesium Total Bilirubin AST ALT Alkaline Phosphatase C-React Prot Ext Range Total Protein Albumin Globulin Albumin/Globulin Ratio Triglycerides Cholesterol LDL Cholesterol VLDL Cholesterol HDL Cholesterol 08/14/18 05:35 WBC RBC Hgb Hct MCV MCH MCHC RDW RDW Differential Plt Count MPV ESR Sodium 143 Potassium 3.7 Chloride 101 Carbon Dioxide 33.0 H Anion Gap 9 BUN 14 Creatinine 0.81 Estim Creat Clear Calc 118.79 Est GFR (MDRD) Af Amer 130 Est GFR (MDRD) Non-Af 108 BUN/Creatinine Ratio 17.2 Glucose 127 H Hemoglobin A1c Calcium 8.8 Phosphorus 3.9 Magnesium 2.2 Total Bilirubin 0.40 AST 26 ALT 37 Alkaline Phosphatase 87 C-React Prot Ext Range 90.10 H Total Protein 7.2 Albumin 2.6 L Globulin 4.6 H Albumin/Globulin Ratio 0.6 L Triglycerides 142 Cholesterol 140 LDL Cholesterol 87 VLDL Cholesterol 28 HDL Cholesterol 25 L POC Glucose 08/14/18 08/14/18 08/13/18 06:57 00:00 22:00 POC Glucose 165 H > 500 H* 458 H* 08/13/18 14:52 POC Glucose 325 H Medical Necessity - Tobacco Use Smoking Status: Current every day smoker Tobacco Use: Cigarettes Assessment/Plan All Active Problems (Last Reviewed 04/19/18 @ 15:19 by Ailin Brady) DVT (deep venous thrombosis) (Resolved) History of gallstones (Resolved) 1. Right lower extremity cellulitis-diffuse erythema right thigh. Right groin area with beefy red area/gunner appearance. Continue IV Unasyn and Diflucan. Mild leukocytosis, improving. Afebrile. PRN pain regimen. Elevate right lower extremity. 2. Type 2 diabetes mellitus with hyperglycemia on admission-glucose greater than 400 on admission. Hemoglobin A1c from April 2018 8.8%. Repeat hemoglobin A1c this admission 10.5%. Patient was placed on metformin in the past which she has not been taking. Accu-Chek ACHS with SSI. Resume metformin. 3. Hypertension, uncontrolled due to noncompliance-resume previously prescribed lisinopril. Hydralazine as needed for systolic blood pressure greater than 160. 4. Osteoarthritis-patient takes tramadol every 12 as needed. 5. Recent history of DVT April 2018-previously prescribed Eliquis which he took for a month, then discontinued. Duplex ultrasound on admission negative for DVT. 6. Obstructive sleep apnea-patient with sleep study May 2018, prescribed BiPAP 26/04. Patient non-compliant. 7. Chronic venous stasis bilateral lower extremities/chronic lymphedema-Jens wraps bilateral lower extremities. 8. Chronic thrombocytopenia-patient was referred to hematology which he has not followed up with. 9. Morbid obesity- Encourage diet and lifestyle modifications. 10. Tobacco dependence-encourage smoking cessation. DVT prophylaxis- Lovenox SC Discharge planning: [facility] will need [facility] possibly home health at discharge. This patient was seen by PAT Hunt under the supervision of Dr. Arriaza.
[2018-08-14 13:51] LABS: Bedside Glucose 286 mg/dL (70-110)
[2018-08-14 17:01] LABS: Bedside Glucose 236 mg/dL (70-110)
[2018-08-14 23:16] LABS: Bedside Glucose 195 mg/dL (70-110)
[2018-08-15 04:30] VITALS: BP 138/89; PULSE 89; RESP 16; TEMP 36.8; O2SAT 94
[2018-08-15 05:22] LABS: Hematocrit 51.3 % (40-54); Hemoglobin 16.1 g/dl (13.0-16.5); Mean Corp Hgb Conc 31.4 g/gl (32-36); Mean Corpuscular Hgb 28.6 pg (27.0-32.0); Mean Corpuscular Volume 91.3 fL (80-94); Mean Platelet Vol. 12.6 fl (6.2-12.0); Platelet Count 154 K/mm3 (150-450); RBC Distribution Width CV 14.3 % (11.6-14.6); RBC Distribution Width SD 47.7 fl (35.1-43.9); Red Blood Count 5.62 M/mm3 (4.6-6.2)
[2018-08-15 05:30] LABS: Scan Indicated on CBC? Y/N NO
[2018-08-15 05:40] LABS: Anion Gap 7 (5-15); BUN 11 mg/dL (7-18); BUN/Creat Ratio 14.6 RATIO (10-20); Calcium,Total 8.8 mg/dL (8.5-10.1); Chloride 100 mmol/L (98-107); Creatinine, Serum 0.76 mg/dL (0.70-1.30); EST Glomerular Filtration Rate 117 mL/min (>60); Est Glom Filt Rate - Afr Amer 142 mL/min (>60); Glucose 144 mg/dL (74-106); Potassium 3.9 mmol/L (3.5-5.1); Sodium Level 140 mmol/L (136-145)
[2018-08-15] MEDS: oxyCODONE 5 MG Tablet PO ×2 (06:33→13:03)
[2018-08-15] MEDS: Insulin Lispro 100 UNIT/ML INSULN.PEN SC ×2 (06:36→11:39)
[2018-08-15] MEDS: Enoxaparin 40 MG/0.4 ML Syringe SC (06:36)
[2018-08-15 06:56] LABS: Bedside Glucose 169 mg/dL (70-110)
[2018-08-15 08:05] VITALS: BP 146/75; PULSE 90; RESP 18; TEMP 36.9; O2SAT 94
[2018-08-15] MEDS: Docusate Sodium 100 MG Capsule PO (08:05)
[2018-08-15 08:06] VITALS: PULSE 90
[2018-08-15] MEDS: Metoprolol(XL)Succ 25 MG Tablet PO (08:06)
[2018-08-15] MEDS: Lisinopril 40 MG Tablet PO (08:06)
[2018-08-15] MEDS: traMADol 50 MG Tablet PO (08:06)
--- NOTE | 2018-08-15 11:17 | CASEMGMT ---
RN CM Note Intro role of CM to patient in room. discussed physician recommendation for skilled home health and/or CCN on dc. Pt is agreeable to [facility] through [facility] and when dc'd from Home Health, is agreeable to [facility]. -Call to Vania @ [facility]. They do not do wound care. Chart reviewed and ismael wraps are being applied, but appears to not have active wound care. Vania states they are able to take referral. Information/order faxed to [phone]. -Call to Noemy @ [facility], they will take referral. Notified that pt will have skilled HHS on dc. Information faxed to [phone]. Srinivas MTZ RN [facility]
--- NOTE | 2018-08-15 11:42 | DCINST_ITS ---
You will use the following diet at home:: Calorie/Carbohydrate Controlled (specify 1200, 1400, etc) Discharge Activity: Return to Normal Activity Call your doctor if you observe: Shortness of breath, Dizziness, Fainting spells, Chest pain Allergies/Adverse Reactions: Allergies ketorolac [From Toradol] Adverse Reaction (Verified 08/13/18 10:11) Upset Stomach NSAIDS (Non-Steroidal Anti-Inflamma Adverse Reaction (Verified 08/13/18 10:11) Upset Stomach Medications to take at Discharge Ondansetron [Zofran Odt] 4 mg PO Q8H PRN PRN #10 tab 03/07/18 tramadol 50 mg tablet 50 mg PO Q12H PRN #60 tab 04/19/18 Blood Pressure Test Kit [Blood Pressure Monitor Manual] 1 unit .ROUTE .MEDSUPPLY 08/13/18 Blood Sugar Diagnostic [Contour Test Strip] 0 unit .ROUTE .MEDSUPPLY 08/13/18 Blood-Glucose Meter [Contour] 0 unit .ROUTE .MEDSUPPLY 08/13/18 Compr.stocking,Thigh,Reg,Large [Compression Thigh Stocking] 0 unit .ROUTE .MEDSUPPLY 08/13/18 Lancets 0 unit .ROUTE .MEDSUPPLY 08/13/18 Amox/Clavulanate Tablet [Augmentin Tablet] 875 mg PO Q12H #14 tablet 08/15/18 Apixaban [Eliquis] See Rx Instructions PO PER PKG DIR #120 tab 08/15/18 Lisinopril [Zestril] 40 mg PO DAILY #60 tab 08/15/18 Metformin HCl [Glucophage] 1,000 mg PO BID #120 tab 08/15/18 Metoprolol(XL)Succ [Toprol Xl (Beta Valente)] 25 mg PO DAILY #60 tablet 08/15/18 The following prescriptions were given: Amox/Clavulanate Tablet [Augmentin Tablet] 875 mg PO Q12H #14 tablet Apixaban [Eliquis] See Rx Instructions PO PER PKG DIR #120 tab Lisinopril [Zestril] 40 mg PO DAILY #60 tab Metoprolol(XL)Succ [Toprol Xl (Beta Valente)] 25 mg PO DAILY #60 tablet Metformin HCl [Glucophage] 1,000 mg PO BID #120 tab Primary Care Physician: Gavin Raymundo MD [Primary Care Provider] - Please follow up with your Primary Care Physician in: 1 Week Test Results: Test results from this visit will be discussed in further detail at your follow- up appointment, if applicable. Proposed Discharge Date: 08/15/18
[2018-08-15 12:06] LABS: Bedside Glucose 222 mg/dL (70-110)
--- NOTE | 2018-08-15 12:54 | PCM.DC.SUM ---
<Amanda Newman - Last Filed: 08/15/18 13:02> Discharge Date and Diagnosis Date of Admission: 08/13/18 Date of Discharge: 08/15/18 - Primary Discharge Diagnosis 1. Right lower extremity cellulitis 2. Type 2 diabetes mellitus, uncontrolled secondary to noncompliance 3. Hypertension, uncontrolled due to noncompliance 4. Osteoarthritis 5. Recent history of DVT April 2018 6. Obstructive sleep apnea 7. Chronic venous stasis bilateral lower extremities/chronic lymphedema 8. Chronic thrombocytopenia 9. Morbid obesity 10. Tobacco dependence - Secondary Discharge Diagnosis Chronic Problems (Last Reviewed 04/19/18 @ 15:19 by Ailin Brady) Thrombocytopenia (Chronic) Sleep apnea (Chronic) Osteoarthritis (Chronic) Bilateral lower extremity edema (Chronic) Type 2 diabetes mellitus (Chronic) History of esophageal disorder (Chronic) Hypertension (Chronic) Hospital Course and Treatment Operations: None Procedures: None Summary of Care Provided: The patient is a 48 year old M admitted 08/13/18 due to right thigh swelling and redness. 1. Right lower extremity cellulitis-diffuse erythema right thigh on admission. Patient received IV Unasyn during admission. Discharged on Augmentin 875 mg p.o. twice daily for 7 days. Follow-up with primary care physician in 1 week. 2. Type 2 diabetes mellitus with hyperglycemia on admission-glucose greater than 400 on admission. Hemoglobin A1c from April 2018 8.8%. Repeat hemoglobin A1c this admission 10.5%. Patient was placed on metformin in the past which she has not been taking. Resume metformin thousand milligrams twice daily at discharge. 3. Hypertension, uncontrolled due to noncompliance-resume previously prescribed lisinopril. Metoprolol 25 mg daily added. 4. Osteoarthritis-patient takes tramadol every 12 as needed. 5. Recent history of DVT April 2018-previously prescribed Eliquis which he took for a month, then discontinued. Duplex ultrasound on admission negative for DVT. However, given patient did not complete recommended course of Eliquis for acute DVT, will resume Eliquis 5 mg p.o. twice daily at discharge. 6. Obstructive sleep apnea-patient with sleep study May 2018, prescribed BiPAP 26/04. Patient non-compliant. 7. Chronic venous stasis bilateral lower extremities/chronic lymphedema-Jens wraps bilateral lower extremities. 8. Chronic thrombocytopenia-patient was referred to hematology which he has not followed up with. 9. Morbid obesity- Encourage diet and lifestyle modifications. 10. Tobacco dependence-encourage smoking cessation. General: Alert, Oriented x3, Cooperative HEENT: Atraumatic, PERRLA, EOMI, Normocephalic Neck: Supple, No JVD, Negative Carotid Bruits Lungs: Clear to auscultation, Diminished Cardiovascular: Regular rate, Regular Rhythm, Normal S1, Normal S2, No murmurs Abdomen: Bowel Sounds Present, Soft, Non Tender, Non-Distended, Obese Extremities: No clubbing, No cyanosis, Edema - Bilateral lower extremities, chronic. Skin: Chronic venous stasis changes bilateral lower extremities with dryness/flaking, right thigh erythema improved. Musculoskeletal: No Tenderness to Palpation of Joints or Extremities Neurological: Cranial nerves II-XII grossly intact, Neuro grossly intact Psych/Mental Status: Normal Affect, Appropriate Patient seen and examined prior to discharge. Physical assessment as noted above. Patient is stable for discharge with follow up recommendations as noted above. This patient was seen by PAT Hunt under the supervision of Dr. Villavicencio. - Physical Exam Vital Signs Temp Pulse Resp BP Pulse Ox 98.5 F 90 18 146/75 H 94 08/15/18 08:05 08/15/18 08:06 08/15/18 08:05 08/15/18 08:05 08/15/18 08:05 Oxygen Flow Rate (L/min) 2 Oxygen Delivery Method Nasal Cannula Weight: 395 lb 0.035 oz Body Mass Index (BMI) 55.0 Finger Stick Blood Glucose 154 Intake and Output for Last 24 Hours 08/13/18 08/14/18 08/15/18 23:59 23:59 23:59 Intake Total 5160 / 5160 1242 / 1242 Balance 5160 / 5160 1242 / 1242 Microbiology Past 72 Hours 08/13/18 10:53 Blood Culture - Preliminary Blood Culture (Wb) - Left Forearm No growth in 48 hours. 08/13/18 12:00 Blood Culture - Preliminary Blood Culture (Wb) - Anticubital Left No growth in 48 hours. Laboratory Tests Past 24 Hrs 08/15/18 08/15/18 05:00 05:00 WBC 14.0 H RBC 5.62 Hgb 16.1 Hct 51.3 MCV 91.3 MCH 28.6 MCHC 31.4 L RDW 14.3 RDW Differential 47.7 H Plt Count 154 MPV 12.6 H Sodium 140 Potassium 3.9 Chloride 100 Carbon Dioxide 33.0 H Anion Gap 7 BUN 11 Creatinine 0.76 Estim Creat Clear Calc 126.60 Est GFR (MDRD) Af Amer 142 Est GFR (MDRD) Non-Af 117 BUN/Creatinine Ratio 14.6 Glucose 144 H Calcium 8.8 POC Glucose 08/15/18 08/15/18 08/14/18 11:38 06:35 22:29 POC Glucose 222 H 169 H 195 H 08/14/18 08/14/18 16:46 11:53 POC Glucose 236 H 286 H Discharge Diet: 1800 Calorie Control Diet, Carb Control Diet Discharge Activity: Return to Normal Activity Call your doctor if you observe: Shortness of breath, Dizziness, Fainting spells, Chest pain Home Medications: Medications to take at Discharge Ondansetron [Zofran Odt] 4 mg PO Q8H PRN PRN #10 tab 03/07/18 tramadol 50 mg tablet 50 mg PO Q12H PRN #60 tab 04/19/18 Blood Pressure Test Kit [Blood Pressure Monitor Manual] 1 unit .ROUTE .MEDSUPPLY 08/13/18 Blood Sugar Diagnostic [Contour Test Strip] 0 unit .ROUTE .MEDSUPPLY 08/13/18 Blood-Glucose Meter [Contour] 0 unit .ROUTE .MEDSUPPLY 08/13/18 Compr.stocking,Thigh,Reg,Large [Compression Thigh Stocking] 0 unit .ROUTE .MEDSUPPLY 08/13/18 Lancets 0 unit .ROUTE .MEDSUPPLY 08/13/18 Amox/Clavulanate Tablet [Augmentin Tablet] 875 mg PO Q12H #14 tablet 08/15/18 Apixaban [Eliquis] See Rx Instructions PO PER PKG DIR #120 tab 08/15/18 Lisinopril [Zestril] 40 mg PO DAILY #60 tab 08/15/18 Metformin HCl [Glucophage] 1,000 mg PO BID #120 tab 08/15/18 Metoprolol(XL)Succ [Toprol Xl (Beta Valente)] 25 mg PO DAILY #60 tablet 08/15/18 Following Prescrptions Were Given to Patient: Amox/Clavulanate Tablet [Augmentin Tablet] 875 mg PO Q12H #14 tablet Apixaban [Eliquis] See Rx Instructions PO PER PKG DIR #120 tab Lisinopril [Zestril] 40 mg PO DAILY #60 tab Metoprolol(XL)Succ [Toprol Xl (Beta Valente)] 25 mg PO DAILY #60 tablet Metformin HCl [Glucophage] 1,000 mg PO BID #120 tab Other Amb Orders: Glucometer Location: None Selected Primary Care Physician: Gavin Raymundo MD [Primary Care Provider] - Please follow up with your Primary Care Physician in: 1 Week Disposition: Home with Home Health Minutes spent on discharge:: 35 Patient Condition:: Stable Medical Necessity - Tobacco Use Smoking Status: Current every day smoker Tobacco Use: Cigarettes Meaningful Use Info Meaningful Use Diagnoses (Choose all that apply): None applicable <Kiko Villavicencio - Last Filed: 08/15/18 16:02> Discharge Date and Diagnosis - Secondary Discharge Diagnosis Chronic Problems (Last Reviewed 04/19/18 @ 15:19 by Ailin Brady) Thrombocytopenia (Chronic) Sleep apnea (Chronic) Osteoarthritis (Chronic) Bilateral lower extremity edema (Chronic) Type 2 diabetes mellitus (Chronic) History of esophageal disorder (Chronic) Hypertension (Chronic) Hospital Course and Treatment Summary of Care Provided: The patient is a 48 year old M [] - Physical Exam Vital Signs Temp Pulse Resp BP Pulse Ox 98.5 F 90 18 146/75 H 94 08/15/18 08:05 08/15/18 08:06 08/15/18 08:05 08/15/18 08:05 08/15/18 08:05 Oxygen Flow Rate (L/min) 2 Oxygen Delivery Method Nasal Cannula Weight: 395 lb 0.035 oz Body Mass Index (BMI) 55.0 Finger Stick Blood Glucose 154 Intake and Output for Last 24 Hours 08/13/18 08/14/18 08/15/18 23:59 23:59 23:59 Intake Total 5160 / 5160 1242 / 1242 Balance 5160 / 5160 1242 / 1242 Microbiology Past 72 Hours 08/13/18 10:53 Blood Culture - Preliminary Blood Culture (Wb) - Left Forearm No growth in 48 hours. 08/13/18 12:00 Blood Culture - Preliminary Blood Culture (Wb) - Anticubital Left No growth in 48 hours. Laboratory Tests Past 24 Hrs 08/15/18 08/15/18 05:00 05:00 WBC 14.0 H RBC 5.62 Hgb 16.1 Hct 51.3 MCV 91.3 MCH 28.6 MCHC 31.4 L RDW 14.3 RDW Differential 47.7 H Plt Count 154 MPV 12.6 H Sodium 140 Potassium 3.9 Chloride 100 Carbon Dioxide 33.0 H Anion Gap 7 BUN 11 Creatinine 0.76 Estim Creat Clear Calc 126.60 Est GFR (MDRD) Af Amer 142 Est GFR (MDRD) Non-Af 117 BUN/Creatinine Ratio 14.6 Glucose 144 H Calcium 8.8 POC Glucose 08/15/18 08/15/18 08/14/18 11:38 06:35 22:29 POC Glucose 222 H 169 H 195 H 08/14/18 16:46 POC Glucose 236 H Code Visit Addendum: Dr. Villavicencio I personally examined the patient and reviewed the chart. I agree with the above. 48-year-old male who presented with right lower extremity cellulitis. He was recently diagnosed, in March with a right DVT, and stopped taking his anticoagulation. He states that he is looking and feeling much better after a couple days worth of Unasyn. He would like to go home today and will be discharged on p.o. Augmentin and will need to follow-up with his primary care doctor. Also attempt to get him home health to help with his care. Inpatient E&M: [id number] Disch Hosp
[2018-08-15 14:15] VITALS: BP 135/70; PULSE 90; RESP 18; TEMP 36.9; O2SAT 93
--- NOTE | 2018-08-16 15:44 | CASEMGMT ---
ASHLEY PAZ Discharge Follow-up Phone Call: MARLIN: 12 Strata: 4 Call Date: 08/16/18 Discharge Date: 08/15/18 Time of Call: 1545 Duration: 3 min Admitting Diagnosis: Cellulitis ASHLEY PAZ completed follow-up phone call after recent hospitalization. Patient states that his leg still hurts but he followed up with PCP today and was instructed that if redness gets worse to return to ED. Patient states he was able to fill prescriptions without any issues and has been taking as prescribed. Patient denied any questions or concerns regarding discharge instructions. Patient states that [facility] will be out to see him tomorrow. Patient denied further needs at this time.
== END 2018-08-15 14:29 | disposition home health service (06) | DRG 383 ==
LOC: ED 11:07 → MS3 12:29
PROVIDERS: Nurse Practitioner Family; Student in an Organized Health Care Education/Training Program; Admitting Provider Internal Medicine; Emergency Provider Emergency Medicine; Family Provider Internal Medicine; PCP Internal Medicine; Visit Provider Family Medicine
DX: L03.115 Cellulitis of right lower limb (principal); G47.33 Obstructive sleep apnea (adult) (pediatric); E11.65 Type 2 diabetes mellitus with hyperglycemia; E66.01 Morbid (severe) obesity due to excess calories; Z68.43 Body mass index [BMI] 50.0-59.9, adult; E87.1 Hypo-osmolality and hyponatremia; D69.6 Thrombocytopenia, unspecified; I10 Essential (primary) hypertension; Z23 Encounter for immunization; F17.210 Nicotine dependence, cigarettes, uncomplicated; M19.90 Unspecified osteoarthritis, unspecified site; I89.0 Lymphedema, not elsewhere classified; I87.8 Other specified disorders of veins; Z91.14 Patient's other noncompliance with medication regimen; Z86.718 Personal history of other venous thrombosis and embolism; Z82.49 Family history of ischemic heart disease and other diseases of the circulatory system
CPT/HCPCS: 36415; 80048; 80053; 80061; 82947; 82962; 83036; 83605; 83735; 84100; 85025; 85027; 85652; 86140; 87040; 93971; 94762; 99283; 99406; J7030; 90686; A4216; J0295

== ENCOUNTER 2018-09-25 00:35 | Emergency (ER) | payer MEDICAID, SELFPAY ==
[2018-09-08 13:39] VITALS: BMI 55.0
[2018-09-25 00:36] VITALS: BP 178/99; PULSE 100; RESP 20; TEMP 36.8; O2SAT 94; BMI 53.9
--- NOTE | 2018-09-25 01:04 | CT_ITS ---
STUDY: CT ABDOMEN AND PELVIS WITHOUT CONTRAST REASON FOR EXAM: Male, 48 years old. Periumbilical pain. Patient has had a cholecystectomy. RADIATION DOSAGE (If Supplied By Facility): CTDIvol = ( 20.55 ) mGy, DLP = ( 1532.74 ) mGycm TECHNIQUE: Transaxial images were obtained from the dome of the diaphragm to the symphysis pubis without oral contrast, and without intravenous contrast. Sagittal and coronal images were reconstructed. Individualized dose optimization techniques were used for this CT. COMPARISON: None. FINDINGS: The visualized lung bases are unremarkable. The visualized portions of the heart are within normal limits. Normal liver. There are surgical clips in the gallbladder fossa consistent with a prior cholecystectomy. There is mild splenomegaly. Normal pancreas. Normal bilateral adrenal glands. Normal right kidney. Normal left kidney. There is a small hiatal hernia. There is no evidence for dilated bowel, ascites or pneumoperitoneum. Small bowel has a grossly normal appearance. Stool is visible throughout the colon with scattered colonic diverticula. The appendix is visualized and appears normal. Normal abdominal aorta. Normal inferior vena cava. Normal retroperitoneum. Normal urinary bladder. There are prostatic calcifications. There is a small umbilical hernia containing fat. 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 There is multilevel spondylosis of the thoracic spine. The lumbar vertebral bodies have normal height and alignment. CT/Abdomen/Pelvis W IV Cont ONLY IMPRESSION: 1. No CT evidence of acute intra-abdominal disease. 2. Mild splenomegaly. 3. Colonic diverticulosis. 4. Small hiatal hernia. 5. Cholecystectomy. Electronically Signed: Jaquelin Huerta MD at 2:40 EDT , Service support ,
[2018-09-25 01:16] LABS: Bacteria 0 SEEN /hpf (None Seen); Mucous, Urine 0 SEEN /hpf (<or=2+); Squamous Epithelial Cells - UA 0 SEEN /hpf (0-5); White Blood Cells 0 SEEN /hpf (0-5)
[2018-09-25 01:19] LABS: Color, Urine Yellow (Yellow); Glucose, Dipstick 100 mg/dl (Normal); Ketone-Dipstick 5 mg/dl (Negative); Leukocyte Esterase-Dipstick Negative /ul (Negative); Nitrite-Dipstick Negative (Negative); Occult Blood-Urine 10 /ul (Negative); Protein-Dipstick 30 mg/dl (Negative); Specific Gravity, Urine 1.025 (1.002-1.030); Urine Bilirubin Dipstick Negative (Negative); Urine Clarity Sl. Cloudy (Clear); Urine Urobilinogen Normal (Normal)
[2018-09-25 01:52] LABS: AST(SGOT) 18 U/L (15-37); Alanine Aminotransfer ALT/SGPT 35 U/L (16-61); Albumin, Serum 3.4 g/dL (3.2-5.0); Alkaline Phosphatase 71 U/L (45-117); Anion Gap 4 (5-15); BUN 14 mg/dL (7-18); BUN/Creat Ratio 17.5 RATIO (10-20); Bilirubin, Direct 0.09 mg/dL (0.00-0.30); Calcium,Total 8.2 mg/dL (8.5-10.1); Chloride 101 mmol/L (98-107); EST Glomerular Filtration Rate 109 mL/min (>60); Est Glom Filt Rate - Afr Amer 132 mL/min (>60); Estimated Creatinine Clearance 120.27 ml/min; Glucose 215 mg/dL (74-106); Lipase 115 U/L (73-393); Potassium 3.9 mmol/L (3.5-5.1); Protein, Total 7.4 g/dL (6.4-8.2); Sodium Level 135 mmol/L (136-145)
[2018-09-25 01:57] LABS: Hematocrit 48.4 % (40-54); Mean Corp Hgb Conc 33.1 g/gl (32-36); Mean Corpuscular Hgb 28.6 pg (27.0-32.0); Mean Corpuscular Volume 86.6 fL (80-94); Mean Platelet Vol. 11.5 fl (6.2-12.0); Neutrophil % 77.3 % (47-70); POSITIVE COUNT NO; POSITIVE DIFFERENTIAL NO; POSITIVE MORPHOLOGY NO; Platelet Count 102 K/mm3 (150-450); RBC Distribution Width CV 13.7 % (11.6-14.6); RBC Distribution Width SD 43.2 fl (35.1-43.9); Red Blood Count 5.59 M/mm3 (4.6-6.2); White Blood Count 9.1 K/mm3 (4.4-11.0)
[2018-09-25 01:58] LABS: Absolute Lymphocyte Count 1.22 X10^3/ul (0.83-4.51); Absolute Neutrophil Count 7.1 X10^3/uL (2.0-7.7); Basophil# 0.03 X10^3/uL; Basophil% 0.3 % (0-1); Eosinophil# 0.15 X10^3/uL; Eosinophils% 1.6 % (0-5); Lymphocyte # 1.22 X10^3/ul (4.0); Lymphocyte % 13.4 % (19-41); Monocyte# 0.61 X10^3/uL; Monocyte% 6.7 % (0-10); Neutrophil # 7.06 X10^3/uL (2.7-7.7)
[2018-09-25 02:03] LABS: Red Blood Cells-Urine 0-5 SEEN /hpf (0-5)
--- NOTE | 2018-09-25 03:00 | ED.VISSUMM ---
- ER Visit Summary Date of Service: 09/25/18 Chief Complaint: [] History of Present Illness: The patient is a 48 M [] Physical Examination: [] Test Results: [] Emergency Department Course and Treatment: [] Treatment Plan: [] Disposition: [] Impression: [] This note was generated with [employer] dictation software. It may contain incorrect words, spelling, and punctuation that were not noted in review of the chart prior to signing ED Disposition - Plan for ED Patient: Referrals: Gavin Raymundo MD [Primary Care Provider] -
--- NOTE | 2018-09-25 03:02 | ED.VISSUMM ---
- ER Visit Summary Date of Service: 09/25/18 Chief Complaint: Periumbilical abdominal pain History of Present Illness: The patient is a 48 M history of noncemented diabetes and hypertension. Patient had a prior cholecystectomy. He states that he thinks he is constipated. However he had a bowel movement today at 3 PM. He said since 5 PM he has had periumbilical abdominal pain. He denies any trauma. He denies any nausea, vomiting or diarrhea. No melena. No fever. No back pain. No dysuria. Physical Examination: Middle-aged male. No acute distress. Vital signs are stable and afebrile. HEENT exam unremarkable. Neck nontender no lymphadenopathy. Lungs clear to auscultation bilaterally. Heart regular rhythm no murmur. Abdomen soft. Morbidly obese. Periumbilical tenderness. But no rebound, guarding or rigidity. He does appear to have a small umbilical hernia. It is not incarcerated or strangulated. There are no peritoneal signs. There are no masses. No signs of obstruction. Positive bowel sounds. Patient moving all 4 extremities. His chronic venous stasis changes and edema both lower extremities. His back is nontender. Neurologically is awake and alert. Test Results: CBC shows a white count of 9. Hemoglobin is 16. Electrolytes unremarkable normal creatinine and gap. Liver enzymes normal. Lipase normal. UA normal. CT abdomen pelvis with IV contrast shows no acute abnormality. He has a small umbilical hernia. Mild splenomegaly. Diverticulosis. Small hiatal hernia. Emergency Department Course and Treatment: Repeat exams at both oh 2:14 AM and 03 100 a.m. patient's abdomen is benign. We went over all his test results. More than likely his pain is caused by the umbilical hernia. Treatment Plan: Follow-up with a general surgeon about his umbilical hernia. Disposition: Discharge Impression: Abdominal pain uncertain etiology Umbilical hernia This note was generated with [employer] dictation software. It may contain incorrect words, spelling, and punctuation that were not noted in review of the chart prior to signing ED Disposition - Plan for ED Patient: Referrals: Gavin Raymundo MD [Primary Care Provider] -
--- NOTE | 2018-09-25 03:05 | ED.DEP ---
ED Disposition - Plan for ED Patient: Disposition: Home or Assisted Living Instructions: ED Abdominal Pain Unkn Cause Referrals: Gavin Raymundo MD [Primary Care Provider] - As Needed Additional Instructions: Your lab work is normal tonight. Your CAT scan shows a small hernia around her bellybutton this may be the cause your pain. There is no signs of constipation. Follow-up with your primary care physician. They can refer you to a local general surgeon for evaluation of possible umbilical hernia repair.
[2018-09-25 03:12] VITALS: BP 145/77; PULSE 93; RESP 18; O2SAT 97
--- NOTE | 2018-09-25 03:31 | ED.DCSUM_ITS ---
- ER Visit Summary Date of Service: 09/25/18 Chief Complaint: [] History of Present Illness: The patient is a 48 M [] Physical Examination: [] Test Results: [] Emergency Department Course and Treatment: [] Treatment Plan: [] Disposition: [] Impression: [] This note was generated with [employer] dictation software. It may contain incorrect words, spelling, and punctuation that were not noted in review of the chart prior to signing ED Disposition - Plan for ED Patient: Referrals: Gavin Raymundo MD [Primary Care Provider] -
== END 2018-09-25 03:13 | disposition home or self-care (01) ==
PROVIDERS: Emergency Provider Emergency Medicine; Family Provider Internal Medicine; PCP Internal Medicine
DX: R10.9 Unspecified abdominal pain (principal); K42.9 Umbilical hernia without obstruction or gangrene; E11.9 Type 2 diabetes mellitus without complications; I10 Essential (primary) hypertension; Z90.49 Acquired absence of other specified parts of digestive tract; Z72.0 Tobacco use
CPT/HCPCS: 74177; 80048; 80076; 81001; 83690; 85025; 99283; Q9967; A4216

== ENCOUNTER → 2019-05-08 | Outpatient (CLI) | payer MEDICAID, SELFPAY ==
[2019-03-28 15:00] VITALS: BMI 53.9
[2019-05-08 12:40] LABS: Anion Gap 3 (5-15); BUN 8 mg/dL (7-18); Calcium,Total 8.6 mg/dL (8.5-10.1); Chloride 103 mmol/L (98-107); Cholesterol 162 mg/dL (200); EST Glomerular Filtration Rate 110 mL/min (>60); Est Glom Filt Rate - Afr Amer 133 mL/min (>60); Glucose 137 mg/dL (74-106); High Density Lipoprotein 40 mg/dL; Potassium 4.4 mmol/L (3.5-5.1); Sodium Level 139 mmol/L (136-145); Thyroid Stim Hormone (TSH) 2.11 uIU/mL (0.358-3.74); Triglycerides 157 mg/dL; Very Low Density Lipoprotein 31 mg/dL (5-40)
[2019-05-08 12:44] LABS: Hemoglobin A1c 7.9 % (4.2-6.3)
== END | disposition home or self-care (01) ==
LOC: BIMLAB 09:03
PROVIDERS: Family Provider Internal Medicine; PCP Internal Medicine; Visit Provider Nurse Practitioner Family
DX: E11.9 Type 2 diabetes mellitus without complications (principal); I10 Essential (primary) hypertension
CPT/HCPCS: 36415; 80048; 80061; 83036; 84443

== ENCOUNTER → 2019-05-11 15:00 | Outpatient (CLI) | payer MEDICAID, SELFPAY ==
[2019-05-11 14:07] VITALS: BMI 53.9
[2019-05-12 13:15] LABS: Microalbumin,Random Urine 16.8 mg/L (NO RANGE EST.); Microalbumin:Creatinine Ratio 12.4 mg/g CRE (<30 mg/g CRE)
== END ==
PROVIDERS: Family Provider Internal Medicine; PCP Internal Medicine; Visit Provider Nurse Practitioner Family
DX: E11.9 Type 2 diabetes mellitus without complications (principal); I10 Essential (primary) hypertension
CPT/HCPCS: 82043; 82570

== ENCOUNTER 2019-06-19 23:50 | Emergency (ER) | payer MEDICAID, SELFPAY ==
[2019-06-02 10:28] VITALS: BMI 55.6
[2019-06-19 23:50] VITALS: BP 166/95; PULSE 102; RESP 16; TEMP 36.8; O2SAT 98; BMI 56.5
--- NOTE | 2019-06-20 00:09 | ED.DCSUM_ITS ---
History of Present Illness Chief Complaint: Upper Extremity Injury Informant: Patient Onset: Weeks Context: Gradual Onset Timing: Waxes and wanes Current Severity: Moderate Maximum Severity: Moderate Narrative: Patient presents with right forearm pain for the past couple of weeks. 2 weeks ago he was helping a friend work on a lawnmower when it started to drop and he t ried to catch it. He has pain in the forearm. He was seen by his PCP and had x-rays taken that were unremarkable. He has been on Ultram, 1 tab twice daily to help control pain. He is currently out of pain meds and that increased pain tonight. There has been no new injury. - Past Medical History (1) Hypertension Status: Chronic (2) Osteoarthritis Status: Chronic (3) Sleep apnea Status: Chronic (4) Thrombocytopenia Status: Chronic (5) Type 2 diabetes mellitus Status: Chronic Past Medical History - Allergies and Home Meds Allergies/Adverse Reactions: Allergies ketorolac [From Toradol] Adverse Reaction (Verified 06/19/19 23:55) Upset Stomach NSAIDS (Non-Steroidal Anti-Inflamma Adverse Reaction (Verified 06/19/19 23:55) Upset Stomach Primary Care Physician: Gavin Raymundo MD [Primary Care Provider] - Surgical History: - - Amando fundoplication, cholecystectomy. Lives: Spouse/ Significant Other Smoking Status: Never smoker Review of Systems General: Denies: Chills, Fever Eyes: Denies: Visual changes - bilaterally ENT: Denies: Bilateral ear pain Cardiovascular: Denies: Chest pain Respiratory: Denies: Dyspnea, Cough Gastrointestinal: Denies: Abdominal pain, Nausea, Vomiting, Diarrhea Musculoskeletal: Reports: Arthralgias Neurological: Reports: Parasthesia - Occasional paresthesias in fingertips Hematologic: Denies: Easy bruising Allergy: Denies: Uticaria Physical Exam Vital Signs/Narrative: Vital Signs Temp Pulse Resp BP Pulse Ox 06/19/19 23:50 98.3 F 102 H 16 166/95 H 98 Inital Vital Signs reviewed: Yes General: Well nourished, Well developed Head: Normocephalic ENT: Moist mucous membranes Cardiovascular: Regular rate, Regular rhythm Respiratory: No distress, CTA bilaterally Abdomen: Soft, Nontender Extremities: - - Mild muscular tenderness over the proximal forearm. Full range of motion noted at all joint spaces. No sign of infection. Strong distal pulses. Skin: Normal color Neurological: Alert, Oriented x3, Normal Strength, Normal Sensation Psychological: Normal affect Diagnostic/Tx/Re-eval - Medical Decision Making Oars report was performed. Patient was given a prescription for 14 tabs of Ult lynne on June 02. There was another prescription for 14 tabs of Ultram on June 14. Patient be given new prescription for Ultram. He will also be given a sling. He is to follow-up with orthopedics on the as scheduled. ED Disposition - Plan for ED Patient: Disposition: Home or Assisted Living Diagnosis: Right forearm pain Instructions: CONTUSION, Upper Extremity Prescriptions: traMADol [Ultram] 50 mg PO Q4H PRN PRN 3 Days #20 tablet PRN Reason: Pain Referrals: Gavin Raymundo MD [Primary Care Provider] - Additional Instructions: Keep scheduled appointment with orthopedics.
[2019-06-20 00:14] VITALS: BP 158/80; BP 162/89; PULSE 95; RESP 16; RESP 19; O2SAT 95; O2SAT 97
[2019-06-20] MEDS: traMADol 50 MG Tablet 100 MG PO (00:26)
== END 2019-06-20 00:33 | disposition home or self-care (01) ==
PROVIDERS: Emergency Provider Emergency Medicine; Family Provider Internal Medicine; PCP Internal Medicine
DX: M79.631 Pain in right forearm (principal); E11.9 Type 2 diabetes mellitus without complications; G47.30 Sleep apnea, unspecified; I10 Essential (primary) hypertension; M19.90 Unspecified osteoarthritis, unspecified site; Z88.6 Allergy status to analgesic agent; Z90.49 Acquired absence of other specified parts of digestive tract; D69.6 Thrombocytopenia, unspecified
CPT/HCPCS: 99283

== ENCOUNTER 2019-07-17 08:42 | Inpatient (IN) | payer MEDICAID, SELFPAY ==
[2019-07-17 08:44] VITALS: BP 131/92; PULSE 111; RESP 17; TEMP 37; O2SAT 94; BMI 54.9
--- NOTE | 2019-07-17 08:59 | RAD_ITS ---
STUDY: X-RAY - LEFT FOOT CLINICAL: Male, 49 years old. LEFT LITTLE TOE REDNESS, EDEMA, BLEEDING, PAIN TECHNIQUE: 3 view(s) of the foot. COMPARISON: None. FINDINGS: Normal talus, calcaneus, and tarsal bones. Normal visualized subtalar, talonavicular, calcaneocuboid, tarsal and tarsometatarsal articulations. Normal metatarsi. Normal metatarsophalangeal joint of the great toe. Normal tibial and fibular sesamoid bones. Normal interphalangeal joint of the great toe. Normal phalanges of the great toe. Normal second through fifth metatarsophalangeal joints. Normal interphalangeal joints and phalanges of the lesser toes. Diffuse soft tissue swelling. RAD/Foot min 3 Views IMPRESSION: Diffuse soft tissue swelling Electronically Signed: Jeronimo Gomez, at 10:00 EST , Service support ,
--- NOTE | 2019-07-17 08:59 | ED.DCSUM_ITS ---
History of Present Illness Chief Complaint: Cellulitis Detail of Chief Complaint: My left little toe blew up . Onset: Today Context: Sudden Onset Timing: Continuous Quality: Swelling left little toe with bleeding Location: Left little toe Current Severity: Mild Maximum Severity: Moderate Worsened by: Water from shower Relieved by: Nothing Associated Symptoms: Thirst, dry mouth and redness to left lower extremity Narrative: Patient is a 49-year-old male with history of obstructive sleep apnea, hypertension and lymphedema who presents because his left little toe began to bleed when water struck his toe while taking a shower. He is unaware of any drainage. He states he does not feel well. He feels fatigued. He denies fever. He denies history of osteomyelitis. He denies symptoms of claudication. He denies history of diabetes. Patient was unaware that his toe was discolored and swollen. He was unaware that his left foot was red. Prior similar symptoms: No Recent Illness/Hospitalization: No - Past Medical History (1) Hypertension Status: Chronic (2) Osteoarthritis Status: Chronic (3) Sleep apnea Status: Chronic (4) Thrombocytopenia Status: Chronic (5) Type 2 diabetes mellitus Status: Chronic Past Medical History - Allergies and Home Meds Allergies/Adverse Reactions: Allergies ketorolac [From Toradol] Adverse Reaction (Verified 07/17/19 08:44) Upset Stomach NSAIDS (Non-Steroidal Anti-Inflamma Adverse Reaction (Verified 07/17/19 08:44) Upset Stomach Primary Care Physician: Gavin Raymundo MD [Primary Care Provider] - Prior records reviewed: Yes - Old records patient has type 2 diabetes. Surgical History: - - Amando fundoplication, cholecystectomy. Lives: Alone Smoking Status: Current every day smoker Alcohol: Rare Drugs: None Review of Systems General: Reports: Malaise. Denies: Chills, Fever, Subjective Eyes: Denies: Visual changes - bilaterally, Blurred Vision - bilaterally, Diplopia ENT: Denies: Bilateral ear pain, Rhinorrhea, Sore throat Cardiovascular: Denies: Chest pain, Palpitations Respiratory: Denies: Dyspnea, Cough, Dyspnea on exertion, Orthopnea, Paroxysmal nocturnal dyspnea Gastrointestinal: Denies: Abdominal pain, Nausea, Vomiting, Diarrhea, Melena, Hematochezia Genitourinary: Reports: Frequency. Denies: Dysuria, Hematuria Musculoskeletal: Reports: Swelling, Extremity Pain. Denies: Myalgias, Arthralgias, Neck pain, Back pain Skin: Reports: Wounds. Denies: Rash Neurological: Reports: Weakness. Denies: Headache, Parasthesia Endocrine: Denies: Polyuria, Polydipsia Hematologic: Denies: Easy bruising, Easy bleeding Allergy: Denies: Uticaria, Swelling of the mouth, Swelling of the tongue Physical Exam Vital Signs/Narrative: Vital Signs Temp Pulse Resp BP Pulse Ox 07/17/19 08:44 98.6 F 111 H 17 131/92 H 94 Inital Vital Signs reviewed: Yes General: Well nourished, Well developed, Obese, No Acute Distress Head: Normocephalic, Atraumatic Eyes: Perrl, EOMI. Negative for: Pale conjunctiva, Scleral icterus ENT: No rhinorrhea, TM's clear, Dry mucous membranes Neck: Supple, Nontender, No lymphadenopathy, No JVD Cardiovascular: Regular rhythm, No murmurs, Normal S1, Normal S2, Tachycardia Respiratory: No distress, CTA bilaterally, Chest nontender Abdomen: Soft, Nontender, Nondistended, Normal bowel sounds Rectal: Deferred Back: Nontender Extremities: - - Mcgee has venous dermatitis noted bilaterally. There is discoloration of the left little toe with serosanguineous colored drainage noted. There is an odor appreciated. There is evidence of cellulitis. There is no popliteal lymphadenopathy. Difficult assess for inguinal based on body h abitus. He denies tenderness. DP and PT pulse are not palpable. Skin: Normal color, Rash - Venous stasis dermatitis bilaterally. Negative for: Cyanosis, Diaphoresis, Jaundice Neurological: Alert, Oriented x3, Cranial nerves II-XII grossly intact, Normal Strength. Negative for: Normal Sensation Psychological: Normal affect Diagnostic/Tx/Re-eval Chest X-Ray - ED: Read by ED Physician, - - 3 view x-ray left foot reveals no evidence of osteomyelitis. There is no subq air noted. There is no evidence of fracture, subluxation or dislocation. There is no evidence of foreign body. Impressions Foot X-Ray 07/17/19 08:59 IMPRESSION: Diffuse soft tissue swelling Electronically Signed: Jeronimo Gomez, at 10:00 EST , Service support , 07/17/19 08:59 Foot min 3 Views [RAD] Stat Laboratory Results 07/17/19 07/17/19 07/17/19 09:15 09:15 09:15 WBC 16.3 H RBC 5.59 Hgb 15.6 Hct 47.7 MCV 85.3 MCH 27.9 MCHC 32.7 RDW Std Deviation 40.9 RDW Coeff of Maria Fernanda 13.2 Plt Count 196 MPV 11.4 Immature Gran % (Auto) 1.300 H Neut % (Auto) 85.8 H Lymph % (Auto) 4.6 L [place] % (Auto) 7.2 Eos % (Auto) 0.6 Baso % (Auto) 0.5 Absolute Neuts (auto) 14.0 H Absolute Lymphs (auto) 0.75 L Nucleated RBC % 0 ESR 56 H Sodium 131 L Potassium 3.9 Chloride 97 L Carbon Dioxide 29.0 Anion Gap 5 BUN 11 Creatinine 0.91 Estim Creat Clear Calc 104.58 Est GFR (MDRD) Af Amer 113 Est GFR (MDRD) Non-Af 94 BUN/Creatinine Ratio 12.0 Glucose 258 H Lactic Acid 1.4 Calcium 8.4 L Total Bilirubin 1.00 AST 10 L ALT 21 Alkaline Phosphatase 67 Total Protein 7.5 Albumin 2.9 L Globulin 4.6 H Albumin/Globulin Ratio 0.6 L White count is elevated. Lactate is normal. Radiologist agrees with no evidence of osteomyelitis. Patient does have sepsis. Hospitalist has been paged for admission. ESR is elevated 56. - Medical Decision Making [place] patient appears dehydrated. With him having increased thirst and urination need to assess blood sugar since there is a past history of type 2 diabetes even though patient denies. Concern patient has infection. Antibiotics were not administered immediately since twice antibiotics will defer if patient has severe sepsis versus not. X-ray was obtained to evaluate for any evidence of osteomyelitis. Appropriate blood work was obtained. He did receive a liter of normal saline. White count was elevated greater than 16,000. Blood cultures were ordered and 4.5 g of Zosyn was ordered. Vancomycin was also ordered.. ED Disposition - Plan for ED Patient: Disposition: Acute Care Hospital [facility] Diagnosis: Cellulitis of foot, left, Sepsis, Hyperglycemia due to type 2 diabetes mellitus, Sinus tachycardia seen on pvc monitor Referrals: Gavin Raymundo MD [Primary Care Provider] -
[2019-07-17] MEDS: 0.9% Normal Saline 1,000 ML 1000 ML IV (09:20)
[2019-07-17 09:35] LABS: Absolute Lymphocyte Count 0.75 X10^3/uL (0.83-4.51); Basophil# 0.08 X10^3/uL; Basophil% 0.5 % (0-1); Eosinophils% 0.6 % (0-5); Hematocrit 47.7 % (40-54); Hemoglobin 15.6 g/dL (13.0-16.5); Lymphocyte # 0.75 X10^3/ul (4.0); Lymphocyte % 4.6 % (19-41); Mean Corp Hgb Conc 32.7 g/dL (32-36); Mean Corpuscular Hgb 27.9 pg (27.0-32.0); Mean Corpuscular Volume 85.3 fL (80-94); Mean Platelet Vol. 11.4 fl (6.2-12.0); Monocyte# 1.17 X10^3/uL; Monocyte% 7.2 % (0-10); NRBC Flagged by Analyzer 0 % (0-5); Neutrophil # 13.99 X10^3/uL (2.7-7.7); Neutrophil % 85.8 % (47-70); Platelet Count 196 K/mm3 (150-450); RBC Distribution Width CV 13.2 % (11.6-14.6); RBC Distribution Width SD 40.9 fl (35.1-43.9); Red Blood Count 5.59 M/mm3 (4.6-6.2); White Blood Count 16.3 K/mm3 (4.4-11.0)
[2019-07-17 09:39] LABS: Erythrocyte Sedimentation Rate 56 mm/hr (0-15)
[2019-07-17 09:48] LABS: ALB/GLOB Ratio 0.6 RATIO (0.9-2.4); AST(SGOT) 10 U/L (15-37); Alanine Aminotransfer ALT/SGPT 21 U/L (16-61); Albumin, Serum 2.9 g/dL (3.2-5.0); Alkaline Phosphatase 67 U/L (45-117); Anion Gap 5 (5-15); BUN 11 mg/dL (7-18); Calcium,Total 8.4 mg/dL (8.5-10.1); Chloride 97 mmol/L (98-107); Creatinine, Serum 0.91 mg/dL (0.70-1.30); EST Glomerular Filtration Rate 94 mL/min (>60); Est Glom Filt Rate - Afr Amer 113 mL/min (>60); Estimated Creatinine Clearance 104.58 ml/min; Globulin 4.6 g/dL (2.2-4.2); Glucose 258 mg/dL (74-106); Potassium 3.9 mmol/L (3.5-5.1); Protein, Total 7.5 g/dL (6.4-8.2); Sodium Level 131 mmol/L (136-145)
[2019-07-17 09:54] LABS: Lactic Acid 1.4 mmol/L (0.4-1.9)
[2019-07-17] MEDS: Morphine 4 MG/ML Syringe IV (10:03)
--- NOTE | 2019-07-17 10:08 | NURSING ---
DR BARNETT FOR DR TORRES
[2019-07-17 10:09] VITALS: BP 130/85; PULSE 79; RESP 18; TEMP 36.8; O2SAT 97
--- NOTE | 2019-07-17 10:18 | NURSING ---
313 CELLULITIS WHTI SEPSIS, HYPERGLYCEMIA ANIBAL
[2019-07-17 11:19] VITALS: BMI 54.9; BMI 55.0
[2019-07-17 11:42] VITALS: BP 144/81; PULSE 101; RESP 18; TEMP 36.9; O2SAT 92
[2019-07-17] MEDS: Insulin Lispro 100 UNIT/ML INSULN.PEN SC ×3 (12:03→21:36)
[2019-07-17] MEDS: Acetaminophen 325 MG Tablet 650 MG PO ×2 (12:03→21:37)
[2019-07-17 12:15] LABS: Bedside Glucose 246 mg/dL (70-110)
--- NOTE | 2019-07-17 12:53 | PCM.RX.CS ---
Consult Pharmacy has been consulted to manage selected antiobiotic: Vancomycin Type of Consult: New start Suspected Infection: Skin/Soft tissue Prior Doses of Antibiotics Received/Current Regimen: Vancomycin 2000mg IV x1 in the ER on 07/17/19 at 1035 Labs: Sodium 131 mmol/L (136-145) L 07/17/19 09:15 Potassium 3.9 mmol/L (3.5-5.1) 07/17/19 09:15 Chloride 97 mmol/L (98-107) L 07/17/19 09:15 Carbon Dioxide 29.0 mmol/L (21.0-32.0) 07/17/19 09:15 Anion Gap 5 (5-15) 07/17/19 09:15 BUN 11 mg/dL (7-18) 07/17/19 09:15 Creatinine 0.91 mg/dL (0.70-1.30) 07/17/19 09:15 Est GFR (MDRD) Af Amer 113 mL/min (>60) 07/17/19 09:15 Est GFR (MDRD) Non-Af 94 mL/min (>60) 07/17/19 09:15 BUN/Creatinine Ratio 12.0 RATIO (10-20) 07/17/19 09:15 Glucose 258 mg/dL (74-106) H 07/17/19 09:15 Weight used for dosin kg Estimated Creatinine Clearance: 162ml/min Goal Trough: 15-20 mcg/mL Pharmacy Plan for Drug Dosing: Pt received a x1 dose of Vancomycin in the ER on 07/17/19 at 1035. Ordered goal trough for the pt is 15-20. Initial recommendation for the pt based on weight and renal function is Vancomycin 1500mg q8h to start 07/17/19 at 1800. Trough will be drawn before the 4th total dose on 07/18/19 at 0930. CrCl was calculated based on an adjusted body weight of 116.7kg Pharmacy Service will continue to monitor and adjust dosing as required. Follow-Up Labs: Trough Vancomycin - 07/18/19 @ 0930
--- NOTE | 2019-07-17 15:52 | ART_ITS ---
Reason For Study: Ulcer/Gangrene Lt 5th toe Procedure A bilateral lower extremity continuous wave Doppler with analog waveform analysis,segmental pressures,and ankle brachial indexes without exercise. Left Segmental Pressures Left brachial= 146mmHg. Left posterior tibial artery = 191mmHg. The left posterior tibial artery waveforms are triphasic. Right Segmental Pressures Right brachial= 149mmHg. Right posterior tibial artery = 185mmHg. Right dorsalis pedis artery = 184mmHg. Right digit = 136 mmHg. The right dorsalis pedis waveforms are triphasic. The right posterior tibial artery waveforms are triphasic. Indices The right ankle brachial index by the dorsalis pedis is 1.23. The right ankle brachial index by the posterior tibial artery is 1.24. The right digital-brachial index is 0.91. The left ankle brachial index by the posterior tibial artery is 1.28. Interpretation Summary Triphasic Doppler waveforms are noted at ankle level bilaterally. Pulse-volume recordings appear satisfactory at calf, ankle, and digital levels bilaterally. Resting ankle-brachial indices are normal bilaterally. The right digital-brachial index is normal. The left digital-brachial index was not determined. Arterial flow appears normal at ankle level bilaterally, and at digital level on the right. Arterial flow at digital level on the left was not fully assessed. Clinical correlation is advised. Ordering Physician: Jesus Ramos Referring Physician: Gavin Raymundo Performed By: Bella Evans RVT
--- NOTE | 2019-07-17 16:11 | HP.PCM_ITS ---
History of Present Illness Date of Admission: 07/17/19 Chief Complaint: Left lower extremity cellulitis The patient is a 49 year old M with a PMH as below who presents with left lower extremity cellulitis. He states that he was feeling fine today however he got up to take shower and when he looked down into the tub he noticed blood coming from his toe. That is when he decided to come into the hospital, prior to this morning he did not notice any issues with his lower extremity. On evaluation he was found to have a leukocytosis though he was afebrile. He also was found to have cellulitis and a swollen left pinky toe. He denies any significant lower extremity pain but he does have a history of diabetes and neuropathy, with decreased sensation. Foot x-ray was negative for any bony destruction. He denies any shortness of breath, chest pain, lightheadedness, dizziness. Past Medical History Past Medical History (Chronic Problems): Chronic Problems (Last Reviewed 06/02/19 @ 10:27 by Chen Ward) Dry skin dermatitis (Chronic) Thrombocytopenia (Chronic) Sleep apnea (Chronic) Osteoarthritis (Chronic) Bilateral lower extremity edema (Chronic) Type 2 diabetes mellitus (Chronic) History of esophageal disorder (Chronic) Hypertension (Chronic) Medical History: Medical History (Last Reviewed 06/02/19 @ 10:27 by Chen Ward) History of esophageal disorder (Chronic) Z87.19 Hypertension (Chronic) I10 DVT (deep venous thrombosis) (Resolved) I82.409 History of gallstones (Resolved) Z87.19 Allergies ketorolac [From Toradol] Adverse Reaction (Verified 07/17/19 08:44) Upset Stomach NSAIDS (Non-Steroidal Anti-Inflamma Adverse Reaction (Verified 07/17/19 08:44) Upset Stomach Home Medications: Ambulatory Orders Medication Instructions Recorded acetaminophen 500 mg tablet 500 mg PO Q6H #90 tab 02/07/19 blood sugar diagnostic 1 strip MISCELLANEOUS .MEDSUPPLY 02/07/19 #100 ea lisinopril 40 mg tablet 40 mg PO DAILY #90 tab 02/07/19 metformin 1,000 mg tablet 1,000 mg PO BID #180 tab 02/07/19 hydrocortisone 2.5 % topical cream 1 applic TOPICAL BID #30 g 02/22/19 metoprolol succinate 25 mg 25 mg PO DAILY #90 tab 02/22/19 tablet,extended release 24 hr dulaglutide 1.5 mg/0.5 mL 1.5 mg SC QWEEK #6 ml 03/28/19 subcutaneous pen injector alcohol swabs 4 pad TOPICAL DAILY #4000 ea 04/25/19 lancets 28 gauge 28 gauge MISCELLANEOUS .MEDSUPPLY 05/19/19 #100 ea hydrochlorothiazide 12.5 mg tablet 12.5 mg PO DAILY #90 tab 06/02/19 tramadol 50 mg tablet 50 mg PO Q12H PRN #14 tab 06/27/19 Surgical History: - - Amando fundoplication, cholecystectomy. Psychiatric History: No pertinent psych hx Lives: Alone Smoking Status: Current every day smoker Tobacco Use: Cigarettes Alcohol: Rare Drugs: None - *Family History Maternal Family History: Family History (Last Reviewed 06/02/19 @ 10:27 by Chen Ward) Mother Hypertension Diabetes Heart disease Sister Hypertension Diabetes Crohns disease Brother Diabetes Review of Systems Constitutional: Denies: Chills, Fever, Weight Change HEENT: Denies: Head Aches, Sinus Congestion, Sinus Drainage Cardiovascular: Denies: Chest Pain, Palpitations Respiratory: Denies: Cough, Shortness of breath at rest, Sputum production Gastrointestinal: Denies: Abdominal Pain, Nausea, Vomiting Genitourinary: Denies: Dysuria Musculoskeletal: Denies: Joint Pain, Joint Tenderness Skin: Reports: Wounds - Left pinky toe swollen and bleeding. Denies: Rash Neurological: Reports: Numbness, Tingling. Denies: Focal weakness Psychiatric: Denies: Anxiety, Depression Hematologic/ Lymphatic: Denies: Easy Bruising, Easy Bleeding VTE Information - Inpt Only VTE Present on Admission: No Patient Problems: Active and Suspected Problems (Last Reviewed 06/02/19 @ 10:27 by Chen Ward) Cellulitis of foot, left (Acute) Sepsis (Acute) Hyperglycemia due to type 2 diabetes mellitus (Acute) Sinus tachycardia seen on [facility] (Acute) - Physical Exam Vitals/I&O's: Vital Signs Temp Pulse Resp BP Pulse Ox 98.5 F 101 H 18 144/81 H 92 07/17/19 11:42 07/17/19 11:42 07/17/19 11:42 07/17/19 11:42 07/17/19 11:42 Oxygen Delivery Method Room Air Weight: 394 lb 2.984 oz Body Mass Index (BMI) 54.9 Finger Stick Blood Glucose 154 Intake and Output for Last 24 Hours 07/15/19 07/16/19 07/17/19 23:59 23:59 23:59 Intake Total 100 / 100 Balance 100 / 100 General: Alert, Oriented x3, Cooperative, No apparent distress HEENT: Atraumatic, PERRLA, EOMI, Normocephalic Oral: Moist Mucosa Neck: Supple, No JVD Lungs: Clear to auscultation, Normal air movement, No rhonchi, No wheeze, No rales, Diminished Cardiovascular: Regular rate, Regular Rhythm, Normal S1, Normal S2, No murmurs Abdomen: Soft, Non Tender, Non-Distended, No Hepato-splenomegaly, Obese Extremities: Edema, - - Left pinky toe appears necrotic with drainage as well as some cellulitis extending up the foot Skin: No rashes, No breakdown Neurological: Neuro grossly intact, Sensory exam intact to light touch and pain - Though he does have slight diminished sensation in his lower extremities Psych/Mental Status: Normal Affect, Appropriate Laboratory Results 07/17/19 09:15: WBC 16.3 H, RBC 5.59, Hgb 15.6, Hct 47.7, MCV 85.3, MCH 27.9, MCHC 32.7, RDW Std Deviation 40.9, RDW Coeff of Maria Fernanda 13.2, Plt Count 196, MPV 11.4, Immature Gran % (Auto) 1.300 H, Neut % (Auto) 85.8 H, Lymph % (Auto) 4.6 L , [place] % (Auto) 7.2, Eos % (Auto) 0.6, Baso % (Auto) 0.5, Absolute Neuts (auto) 14.0 H, Absolute Lymphs (auto) 0.75 L, Nucleated RBC % 0, ESR 56 H 07/17/19 09:15: Sodium 131 L, Potassium 3.9, Chloride 97 L, Carbon Dioxide 29.0, Anion Gap 5, BUN 11, Creatinine 0.91, Estim Creat Clear Calc 104.58, Est GFR (MDRD) Af Amer 113, Est GFR (MDRD) Non-Af 94, BUN/Creatinine Ratio 12.0, Glucose 258 H, Calcium 8.4 L, Total Bilirubin 1.00, AST 10 L, ALT 21, Alkaline Phosphatase 67, Total Protein 7.5, Albumin 2.9 L, Globulin 4.6 H, Albumin/Globulin Ratio 0.6 L 07/17/19 09:15: Lactic Acid 1.4 07/17/19 11:45: POC Glucose 246 H Current Medications Acetaminophen (Tylenol) 650 mg PO Q6H PRN PRN PRN Reason: Pain Score 1-3/Temp > 100.7 F Last Admin: 07/17/19 12:03 Dose: 650 mg Documented by: Enoxaparin Sodium (Lovenox) 40 mg SC DAILY [facility] Glucagon () 1 mg IM .X1 PRN PRN Reason: Hypoglycemia Sodium Chloride () 1,000 mls @ 100 mls/hr IV .Q10H BLAIR Vancomycin IV Pharmacy to Dose (1 ea/ Sodium Chloride) 500 mls @ 250 mls/hr IV X1 PRN; Protocol PRN Reason: Rx to Dose Sodium Chloride () 250 mls @ 15 mls/hr IV .[id number] PRN PRN Reason: Saline Flush Dextrose (Dextrose 10%-Water) 250 mls @ 999 mls/hr IV .Q16M PRN; Protocol PRN Reason: HYPOGLYCEMIA Piperacillin Sod/Tazobactam (Sod 3.375 gm/ Sodium Chloride) 50 mls @ 12.5 mls/hr IV Q8 BLAIR Vancomycin HCl 1,500 mg/ (Sodium Chloride) 530 mls @ 250 mls/hr IV Q8H BLAIR Insulin Glargine (Lantus (Bkc)) 5 units SC QHS BLAIR Insulin Human Lispro (Humalog Kwikpen (Bkc)) 0 unit SC ACHS BLAIR; Protocol Last Admin: 07/17/19 12:03 Dose: 4 u Documented by: Sodium Chloride () 10 - 40 ml IV UD PRN PRN Reason: SALINE FLUSH Assessment/Plan All Active Problems (Last Reviewed 06/02/19 @ 10:27 by Chen Ward) Cellulitis of foot, left (Acute) Sepsis (Acute) Hyperglycemia due to type 2 diabetes mellitus (Acute) Sinus tachycardia seen on [facility] facility psychiatrist (Acute) Cellulitis of right lower extremity (Acute) DVT (deep venous thrombosis) (Resolved) History of gallstones (Resolved) 1. Abscess secondary to left lower extremity cellulitis with gangrenous left pinky toe/chronic venous stasis changes -Leukocytosis of 16 without any fevers -Lactate on admission was 1.4 -Continue vancomycin and Zosyn, will obtain a wound MRSA PCR -Consult to podiatry for likely surgical intervention 2. DM 2/morbid obesity -He is on metformin and dulaglutide -On admission blood sugar was 246, states that he does not have diabetes -We will start him on long-acting insulin as well as sliding scale insulin -A1c is 10.2 in February 07, 2019 -BMI is in the 50s, discussed weight loss and lifestyle modifications, will put him on a calorie restricted diet 3. HTN -Blood pressures in the 130s to 140s -Continue with his home blood pressure medications -We will monitor his renal function with his lisinopril and hydrochlorothiazide DVT: Lovenox He has a history of noncompliance and not following up with his primary care doctor, this will significantly complicate his care both on the inpatient side as well as on the outpatient side. Code Visit Inpatient E&M: 21980 Init Hosp L3
--- NOTE | 2019-07-17 16:17 | CHAPLAIN ---
Type of Pastoral Visit _x__ Initial Visit ___ Follow-up Visit ___ On-call Visit ___ General Patient Visit ___ Spiritual Assessment ___ Family Conference ___ Bereavement ___ Rapid Response ___ Code Blue ___ Other (describe below) Pastoral Care Referral From _x__ Patient ___ Family ___ Nurse ___ Physician ___ Flatwork Supervisor ___ School Bus Driver ___ Other (describe below) Sacrament/Intervention ___ Active listening ___ Anointing ___ Sabianism ___ Bereavement ___ Communion ___ Acmi exploration ___ ___ Life review ___ Prayer ___ Reconciliation ___ Sacrament of Sick _x__ Supportive presence ___ Wedding ___ Other (describe below) Pastoral Comments patient states his need and urgent decision about toe amputation; DR comes into room and visit ends; offer of future support is given and pt asks for return visit at another time
[2019-07-17 16:56] LABS: Bedside Glucose 237 mg/dL (70-110)
[2019-07-17 17:30] LABS: M R Staph aureus DNA By PCR Negative (Negative); Probe Check PASS; Specimen Processing Control PASS; Staph aureus DNA By PCR NEGATIVE (Negative)
[2019-07-17] MEDS: 0.9% Saline Lock 10 ML Syringe IV (18:19)
--- NOTE | 2019-07-17 18:30 | PCM.CONS.GEN ---
Reason for Consult Date of Consultation: 07/17/19 Reason for Consultation: Left foot/5th toe infection History of Present Illness: The patient is a 49 year old gentleman with multiple medical problems including diabetes presented with left lower extremity cellulitis and necrotic 5th toe. He relates he has been doing well, relates he noticed blood from left 5th toe, he came to hospital for further evaluation and treatment. He was admitted with cellulitis, found that left 5th toe is necrotic. His WBC is elevated, ESR and CRP elevated. There is cellulitis with edema to the left 5th toe, along with some oder. He relates there is pain but has hx of peripheral neuropathy. Foot xrays of the left foot have been obtained and were negative for gas or bone destruction. Patient relates he is a smoker, has been trying to cut down on how much he smokes. He has no other pedal complaints. Past Medical History Past Medical History (Chronic Problems): Chronic Problems (Last Reviewed 06/02/19 @ 10:27 by Chen Ward) Dry skin dermatitis (Chronic) Thrombocytopenia (Chronic) Sleep apnea (Chronic) Osteoarthritis (Chronic) Bilateral lower extremity edema (Chronic) Type 2 diabetes mellitus (Chronic) History of esophageal disorder (Chronic) Hypertension (Chronic) Medical History: Medical History (Last Reviewed 06/02/19 @ 10:27 by Chen Ward) History of esophageal disorder (Chronic) Z87.19 Hypertension (Chronic) I10 DVT (deep venous thrombosis) (Resolved) I82.409 History of gallstones (Resolved) Z87.19 Allergies ketorolac [From Toradol] Adverse Reaction (Verified 07/17/19 08:44) Upset Stomach NSAIDS (Non-Steroidal Anti-Inflamma Adverse Reaction (Verified 07/17/19 08:44) Upset Stomach Home Medications: Ambulatory Orders Medication Instructions Recorded acetaminophen 500 mg tablet 500 mg PO Q6H #90 tab 02/07/19 blood sugar diagnostic 1 strip MISCELLANEOUS .MEDSUPPLY 02/07/19 #100 ea lisinopril 40 mg tablet 40 mg PO DAILY #90 tab 02/07/19 metformin 1,000 mg tablet 1,000 mg PO BID #180 tab 02/07/19 hydrocortisone 2.5 % topical cream 1 applic TOPICAL BID #30 g 02/22/19 metoprolol succinate 25 mg 25 mg PO DAILY #90 tab 02/22/19 tablet,extended release 24 hr dulaglutide 1.5 mg/0.5 mL 1.5 mg SC QWEEK #6 ml 03/28/19 subcutaneous pen injector alcohol swabs 4 pad TOPICAL DAILY #4000 ea 04/25/19 lancets 28 gauge 28 gauge MISCELLANEOUS .MEDSUPPLY 05/19/19 #100 ea hydrochlorothiazide 12.5 mg tablet 12.5 mg PO DAILY #90 tab 06/02/19 tramadol 50 mg tablet 50 mg PO Q12H PRN #14 tab 06/27/19 Surgical History: - - Amando fundoplication, cholecystectomy. Psychiatric History: No pertinent psych hx Lives: Alone Smoking Status: Current every day smoker Tobacco Use: Cigarettes Alcohol: Rare Drugs: None - *Family History Maternal Family History: Family History (Last Reviewed 06/02/19 @ 10:27 by Chen Ward) Mother Hypertension Diabetes Heart disease Sister Hypertension Diabetes Crohns disease Brother Diabetes Patient Problems: Active and Suspected Problems (Last Reviewed 06/02/19 @ 10:27 by Chen Ward) Cellulitis of foot, left (Acute) Sepsis (Acute) Hyperglycemia due to type 2 diabetes mellitus (Acute) Sinus tachycardia seen on security monitor (Acute) - Physical Exam Vitals/I&O's: Vital Signs Temp Pulse Resp BP Pulse Ox 98.5 F 101 H 18 144/81 H 92 07/17/19 11:42 07/17/19 11:42 07/17/19 11:42 07/17/19 11:42 07/17/19 11:42 Oxygen Delivery Method Room Air Weight: 178.8 kg Body Mass Index (BMI) 54.9 Finger Stick Blood Glucose 154 Intake and Output for Last 24 Hours 07/15/19 07/16/19 07/17/19 23:59 23:59 23:59 Intake Total 100 / 100 Balance 100 / 100 General: Alert, Oriented x3, Cooperative, No apparent distress Extremities: Capillary Refill Less than 3 Seconds, - - There is noted to be gangrene and necrosis with drainage from the left 5th toe with some maloder present, there is cellulitis to the foot as well. There is a superficial abrasion to the dorsal 1st ID space left foot with no evidence of infection, down to superficial subcutaneous tissue layer, otherwise there are no other open lesions to the foot, ankle or leg. Pedal pulses palpable to the left foot, CFT < 2 seconds to all toes with exception of the left 5th toe which is necrotic. Decreased sensation to the foot consistent with peripheral neuropathy. Musculoskeletal: No Tenderness to Palpation of Joints or Extremities Psych/Mental Status: Alert and oriented to time, place, person, mood and affect Laboratory Results 07/17/19 09:15: WBC 16.3 H, RBC 5.59, Hgb 15.6, Hct 47.7, MCV 85.3, MCH 27.9, MCHC 32.7, RDW Std Deviation 40.9, RDW Coeff of Maria Fernanda 13.2, Plt Count 196, MPV 11.4, Immature Gran % (Auto) 1.300 H, Neut % (Auto) 85.8 H, Lymph % (Auto) 4.6 L, [place] % (Auto) 7.2, Eos % (Auto) 0.6, Baso % (Auto) 0.5, Absolute Neuts (auto) 14.0 H, Absolute Lymphs (auto) 0.75 L, Nucleated RBC % 0, ESR 56 H 07/17/19 09:15: Sodium 131 L, Potassium 3.9, Chloride 97 L, Carbon Dioxide 29.0, Anion Gap 5, BUN 11, Creatinine 0.91, Estim Creat Clear Calc 104.58, Est GFR (MDRD) Af Amer 113, Est GFR (MDRD) Non-Af 94, BUN/Creatinine Ratio 12.0, Glucose 258 H, Calcium 8.4 L, Total Bilirubin 1.00, AST 10 L, ALT 21, Alkaline Phosphatase 67, Total Protein 7.5, Albumin 2.9 L, Globulin 4.6 H, Albumin/Globulin Ratio 0.6 L 07/17/19 09:15: Lactic Acid 1.4 07/17/19 11:45: POC Glucose 246 H 07/17/19 15:45: S.aureus Protein A PCR NEGATIVE, MRSA (PCR) Negative 07/17/19 16:38: POC Glucose 237 H Current Medications Acetaminophen (Tylenol) 650 mg PO Q6H PRN PRN PRN Reason: Pain Score 1-3/Temp > 100.7 F Last Admin: 07/17/19 12:03 Dose: 650 mg Documented by: Enoxaparin Sodium (Lovenox) 40 mg SC DAILY [facility] Glucagon () 1 mg IM .X1 PRN PRN Reason: Hypoglycemia Hydrochlorothiazide () 12.5 mg PO DAILY [facility] Sodium Chloride () 1,000 mls @ 100 mls/hr IV .Q10H [facility] Vancomycin IV Pharmacy to Dose (1 ea/ Sodium Chloride) 500 mls @ 250 mls/hr IV X1 PRN; Protocol PRN Reason: Rx to Dose Sodium Chloride () 250 mls @ 15 mls/hr IV .[id number] PRN PRN Reason: Saline Flush Dextrose (Dextrose 10%-Water) 250 mls @ 999 mls/hr IV .Q16M PRN; Protocol PRN Reason: HYPOGLYCEMIA Piperacillin Sod/Tazobactam (Sod 3.375 gm/ Sodium Chloride) 50 mls @ 12.5 mls/hr IV Q8 [facility] Last Admin: 07/17/19 18:16 Dose: 12.5 mls/hr Documented by: Vancomycin HCl 1,500 mg/ (Sodium Chloride) 530 mls @ 250 mls/hr IV Q8H [facility] Last Admin: 07/17/19 18:17 Dose: 250 mls/hr Documented by: Insulin Glargine (Lantus (Bkc)) 5 units SC QHS [facility] Insulin Human Lispro (Humalog Kwikpen (Bkc)) 0 unit SC ACHS [facility]; Protocol Last Admin: 07/17/19 16:39 Dose: 4 u Documented by: Lisinopril (Zestril) 40 mg PO DAILY [facility] Metoprolol Succinate (Toprol Xl (Beta Valente)) 25 mg PO DAILY [facility] Sodium Chloride () 10 - 40 ml IV UD PRN PRN Reason: SALINE FLUSH Last Admin: 07/17/19 18:19 Dose: 20 ml Documented by: Tramadol HCl (Ultram) 50 mg PO Q12H PRN PRN PRN Reason: Pain Score 1-10/10 Assessment/Plan All Active Problems (Last Reviewed 06/02/19 @ 10:27 by Chen Ward) Cellulitis of foot, left (Acute) Sepsis (Acute) Hyperglycemia due to type 2 diabetes mellitus (Acute) Sinus tachycardia seen on security monitor (Acute) Cellulitis of right lower extremity (Acute) DVT (deep venous thrombosis) (Resolved) History of gallstones (Resolved) Gangrene left 5th toe Cellulitis left foot Diabetes with peripheral neuropathy Possible lower extremity peripheral arterial disease Tobacco Use Reviewed diagnostic data. Given the findings the left 5th toe is nonsalvagable, and we discussed debridement/amputation of the left 5th toe - reviewed rationale of this with patient in great detail. He was agreeable, and we will plan to proceed with this tomorrow afternoon. Today a culture was obtained from the left 5th toe and was sent to microbiology. Patient has been started on IV antibiotics - Vancomycin and Zosyn. Noninvasive lower extremity arterial study was ordered. Reviewed with patient the importance of proper blood sugar control as well as advised tobacco cessation in order to help optimize healing. Patient understands risks of nonhealing. Podiatry will continue to follow. Spoke with and reviewed with Dr. Villavicencio.
[2019-07-17] MEDS: traMADol 50 MG Tablet PO (19:58)
[2019-07-17 20:00] VITALS: BP 125/78; PULSE 95; RESP 18; TEMP 36.9; O2SAT 94
[2019-07-17 21:56] LABS: Bedside Glucose 241 mg/dL (70-110)
[2019-07-17] MEDS: 0.9% Normal Saline 1,000 ML 100 ML IV (22:56)
[2019-07-18] VITALS (11 sets, daily range): BP systolic 121–154; BP diastolic 78–94; PULSE 86–91; RESP 16–18; TEMP 36.4–36.7; O2SAT 91–98; BMI 55.1
--- NOTE | 2019-07-18 05:55 | EKG12_ITS ---
Test Reason : MORNING EKG Blood Pressure : / mmHG Vent. Rate : 084 BPM Atrial Rate : 084 BPM P-R Int : 144 ms QRS Dur : 090 ms QT Int : 390 ms P-R-T Axes : 012 062 069 degrees QTc Int : 460 ms Normal sinus rhythm Normal ECG Confirmed by DIANDRA STAFFORD, MIKE ([id number]), supervising editor trailer LOS REY ([id number]) on 07/19/2019 11:54:32 AM Referred By: Kiko Villavicencio Confirmed By:MIKE JIM MD
[2019-07-18 06:20] LABS: Absolute Neutrophil Count 7.2 X10^3/uL (2.0-7.7); Basophil# 0.04 X10^3/uL; Basophil% 0.4 % (0-1); Eosinophil# 0.21 X10^3/uL; Eosinophils% 2.2 % (0-5); Hematocrit 44.6 % (40-54); Hemoglobin 13.9 g/dL (13.0-16.5); Lymphocyte % 12.5 % (19-41); Mean Corp Hgb Conc 31.2 g/dL (32-36); Mean Corpuscular Hgb 27.1 pg (27.0-32.0); Mean Corpuscular Volume 86.9 fL (80-94); Mean Platelet Vol. 11.2 fl (6.2-12.0); Monocyte# 0.74 X10^3/uL; Monocyte% 7.7 % (0-10); NRBC Flagged by Analyzer 0 % (0-5); Neutrophil # 7.22 X10^3/uL (2.7-7.7); Platelet Count 173 K/mm3 (150-450); RBC Distribution Width CV 13.6 % (11.6-14.6); RBC Distribution Width SD 43.6 fl (35.1-43.9); Red Blood Count 5.13 M/mm3 (4.6-6.2); White Blood Count 9.6 K/mm3 (4.4-11.0)
[2019-07-18 06:36] LABS: Anion Gap 3 (5-15); BUN 11 mg/dL (7-18); BUN/Creat Ratio 13.2 RATIO (10-20); Calcium,Total 7.8 mg/dL (8.5-10.1); Chloride 105 mmol/L (98-107); Creatinine, Serum 0.83 mg/dL (0.70-1.30); EST Glomerular Filtration Rate 104 mL/min (>60); Est Glom Filt Rate - Afr Amer 126 mL/min (>60); Estimated Creatinine Clearance 114.66 ml/min; Glucose 200 mg/dL (74-106); Potassium 3.9 mmol/L (3.5-5.1); Sodium Level 137 mmol/L (136-145)
[2019-07-18] MEDS: Insulin Lispro 100 UNIT/ML INSULN.PEN SC ×4 (06:46→21:50)
--- NOTE | 2019-07-18 08:55 | AMP_PTH ---
PATIENT: EUSEBIA HECTOR LOC: MS3 U#:[id number] AGE/SX: 49/M ROOM: MT313 RE07/17/[address]: Dr. Kiko Villavicencio MD : 1970 BED: 1 DIS: 07/20/2019 SPEC #: [id number] RECD: 07/18/19 13:57 STATUS: CHRISSY ANI #: [id number] VALENTINA: 07/18/19 08:[address]: Jesus Ramos DEPT: SURGICAL PATHOLOGY RECD BY: Darlin Watson ENTERED: 07/19/19 10:42 SP TYPE: Amputation OTHR DR: MD Dr. Kiko Gaffney MD Dr. Robert Leininger, MD Tissues: A - Toe, NOS B - Bone of foot, NOS Procedures: Decalcification bone/plaque Surgery Specimen Level IV HEADER OPERATION: Left amputation toe, 5th/debridement, foot PRE-OP DIAGNOSIS: Gangrene left 5th toe TISSUE SUBMITTED: A. Left 5th toe, B. Clearance fragment left 5th metatarsal MICROSCOPIC DIAGNOSIS A. Left fifth toe, amputation: Skin and soft tissue with ulceration and associated acute and chronic inflammation and granulation. Bone with acute osteomyelitis. B. Clearance fragment, left fifth metatarsal, biopsy: Osseocartilaginous fragments with acute osteomyelitis. AM:marely 07/24/19 COMMENT Case has been reviewed in consultation with Dr. Ac who concurs with the above diagnosis. IDC:CHRISTIAN MICROSCOPIC DESCRIPTION Slides are reviewed. GROSS DESCRIPTION A - Received in fixative is one container labeled with the patient's name and designated left fifth toe. The specimen consists of two irregular fragments. One fragment consists of a portion of nail, skin, bone and soft tissue measuring 3.5 cm in length and 2.5 cm in diameter. The second fragment consists mostly of bone measuring 3.5 cm in length and 1.5 cm in average diameter. The skin contains an area of ulceration measuring 1.7 x 1.2 x 0.2 cm. Tree Wrapper longitudinal segment of both fragments are submitted in two cassettes after decalcification. B - Received in fixative is one container labeled with the patient's name and designated clearance fragment. The specimen consists of two irregular fragments of calderon bone measuring 1 x 0.2 x 0.2 cm. The specimen is totally submitted in one cassette after decalcification. / AM:marely 07/19/19 TC:2 CPT: 92427 x2, 94772 x2
--- NOTE | 2019-07-18 09:36 | PCM.PN.HOSP ---
Patient Problems: Active and Suspected Problems (Last Reviewed 06/02/19 @ 10:27 by Chen Ward) Cellulitis of foot, left (Acute) Sepsis (Acute) Hyperglycemia due to type 2 diabetes mellitus (Acute) Sinus tachycardia seen on senior sales associate (Acute) Subjective: Feels about the same, is having a little bit of leg pain on the left Vitals/I&O's: Vital Signs Temp Pulse Resp BP Pulse Ox 97.8 F 89 16 154/91 H 94 07/18/19 07:33 07/18/19 07:33 07/18/19 07:33 07/18/19 07:33 07/18/19 07:33 Oxygen Delivery Method Room Air Weight: 394 lb 2.984 oz Body Mass Index (BMI) 54.9 Finger Stick Blood Glucose 154 Intake and Output for Last 24 Hours 07/16/19 07/17/19 07/18/19 23:59 23:59 23:59 Intake Total 2220 / 2220 821.67 / 821.67 Output Total 300 / 300 Balance 2220 / 2220 521.67 / 521.67 General: Alert, Oriented x3, Cooperative, No apparent distress HEENT: Atraumatic, PERRLA, EOMI, Normocephalic Oral: Moist Mucosa Neck: Supple, No JVD Lungs: Clear to auscultation, Normal air movement, No rhonchi, No wheeze, No rales, Diminished Cardiovascular: Regular rate, Regular Rhythm, Normal S1, Normal S2, No murmurs Abdomen: Soft, Non Tender, Non-Distended, No Hepato-splenomegaly, Obese Extremities: Edema 2+ non-pitting, - - Left pinky toe appears necrotic with drainage as well as some cellulitis extending up the foot Skin: No rashes, No breakdown Neurological: Neuro grossly intact, Sensory exam intact to light touch and pain - Though he does have slight diminished sensation in his lower extremities Psych/Mental Status: Normal Affect, Appropriate Laboratory Results 07/17/19 09:15: ESR 56 H 07/17/19 09:15: Sodium 131 L, Potassium 3.9, Chloride 97 L, Carbon Dioxide 29.0, Anion Gap 5, BUN 11, Creatinine 0.91, Estim Creat Clear Calc 104.58, Est GFR (MDRD) Af Amer 113, Est GFR (MDRD) Non-Af 94, BUN/Creatinine Ratio 12.0, Glucose 258 H, Calcium 8.4 L, Total Bilirubin 1.00, AST 10 L, ALT 21, Alkaline Phosphatase 67, Total Protein 7.5, Albumin 2.9 L, Globulin 4.6 H, Albumin/Globulin Ratio 0.6 L 07/17/19 09:15: Lactic Acid 1.4 07/17/19 11:45: POC Glucose 246 H 07/17/19 15:45: S.aureus Protein A PCR NEGATIVE, MRSA (PCR) Negative 07/17/19 16:38: POC Glucose 237 H 07/17/19 21:32: POC Glucose 241 H 07/18/19 05:20: WBC 9.6, RBC 5.13, Hgb 13.9, Hct 44.6, MCV 86.9, MCH 27.1, MCHC 31.2 L, RDW Std Deviation 43.6, RDW Coeff of Maria Fernanda 13.6, Plt Count 173, MPV 11.2, Immature Gran % (Auto) 2.200 H, Neut % (Auto) 75.0 H, Lymph % (Auto) 12.5 L, [place] % (Auto) 7.7, Eos % (Auto) 2.2, Baso % (Auto) 0.4, Absolute Neuts (auto) 7.2, Absolute Lymphs (auto) 1.20, Nucleated RBC % 0 07/18/19 05:20: Sodium 137, Potassium 3.9, Chloride 105, Carbon Dioxide 29.0, Anion Gap 3 L, BUN 11, Creatinine 0.83, Estim Creat Clear Calc 114.66, Est GFR (MDRD) Af Amer 126, Est GFR (MDRD) Non-Af 104, BUN/Creatinine Ratio 13.2, Glucose 200 H, Calcium 7.8 L 07/18/19 05:20: Hemoglobin A1c 9.0 H 07/18/19 09:15: Vancomycin Trough Pending Current Medications Acetaminophen (Tylenol) 650 mg PO Q6H PRN PRN PRN Reason: Pain Score 1-3/Temp > 100.7 F Last Admin: 07/17/19 21:37 Dose: 650 mg Documented by: Enoxaparin Sodium (Lovenox) 40 mg SC DAILY [facility] Glucagon () 1 mg IM .X1 PRN PRN Reason: Hypoglycemia Hydrochlorothiazide () 12.5 mg PO DAILY [facility] Sodium Chloride () 1,000 mls @ 100 mls/hr IV .Q10H [facility] Last Infusion: 07/18/19 04:06 Dose: 100 mls/hr Documented by: Vancomycin IV Pharmacy to Dose (1 ea/ Sodium Chloride) 500 mls @ 250 mls/hr IV X1 PRN; Protocol PRN Reason: Rx to Dose Sodium Chloride () 250 mls @ 15 mls/hr IV .[id number] PRN PRN Reason: Saline Flush Last Infusion: 07/18/19 06:47 Dose: 0 mls/hr Documented by: Dextrose (Dextrose 10%-Water) 250 mls @ 999 mls/hr IV .Q16M PRN; Protocol PRN Reason: HYPOGLYCEMIA Piperacillin Sod/Tazobactam (Sod 3.375 gm/ Sodium Chloride) 50 mls @ 12.5 mls/hr IV Q8 [facility] Last Admin: 07/18/19 06:45 Dose: 12.5 mls/hr Documented by: Vancomycin HCl 1,500 mg/ (Sodium Chloride) 530 mls @ 250 mls/hr IV Q8H [facility] Last Infusion: 07/18/19 04:07 Dose: Infused Documented by: Insulin Glargine (Lantus (Bk)) 5 units SC QHS [facility] Last Admin: 07/17/19 21:37 Dose: 5 units Documented by: Insulin Human Lispro (Humalog Kwikpen (Bk)) 0 unit SC ACHS [facility]; Protocol Last Admin: 07/18/19 06:46 Dose: 4 u Documented by: Lisinopril (Zestril) 40 mg PO DAILY [facility] Metoprolol Succinate (Toprol Xl (Beta Valente)) 25 mg PO DAILY [facility] Sodium Chloride () 10 - 40 ml IV UD PRN PRN Reason: SALINE FLUSH Last Admin: 07/17/19 18:19 Dose: 20 ml Documented by: Tramadol HCl (Ultram) 50 mg PO Q12H PRN PRN PRN Reason: Pain Score 1-10/10 Last Admin: 07/17/19 19:58 Dose: 50 mg Documented by: STROKE Vital Signs/Narrative: Vital Signs Temp Pulse Resp BP Pulse Ox 07/18/19 07:33 97.8 F 89 16 154/91 H 94 Medical Necessity - Tobacco Use Smoking Status: Current every day smoker Tobacco Use: Cigarettes Assessment/Plan All Active Problems (Last Reviewed 06/02/19 @ 10:27 by Chen Ward) Cellulitis of foot, left (Acute) Sepsis (Acute) Hyperglycemia due to type 2 diabetes mellitus (Acute) Sinus tachycardia seen on senior sales associate (Acute) Cellulitis of right lower extremity (Acute) DVT (deep venous thrombosis) (Resolved) History of gallstones (Resolved) 1. Abscess secondary to left lower extremity cellulitis with gangrenous left pinky toe/chronic venous stasis changes -Leukocytosis resolved, afebrile, cultures are pending -Lactate on admission was 1.4 -Continue vancomycin and Zosyn, MRSA PCR was negative -Consult ID -Appreciate podiatry recs, vascular studies are pending -OR today for toe amputation 2. DM 2/morbid obesity -He is on metformin and dulaglutide -On admission blood sugar was 246, states that he does not have diabetes -We will start him on long-acting insulin as well as sliding scale insulin -A1c is 10.2 in February 07, 2019 -BMI is in the 50s, discussed weight loss and lifestyle modifications, will put him on a calorie restricted diet 3. HTN -Blood pressures in the 130s to 140s -Continue with his home blood pressure medications -We will monitor his renal function with his lisinopril and hydrochlorothiazide DVT: Carolynx Code Visit Inpatient E&M: 64398 Subs Hosp L2
--- NOTE | 2019-07-18 09:45 | CON.PCM_ITS ---
Problem List (1) Cellulitis of foot, left Status: Acute Reason for Consult: gangrene Consulted by: Dr. Villavicencio History of Present Illness: The patient is a 49 year old M with uncontrolled T2DM, tobacco abuse, presented yesterday with 5 days of L 5th toe pain. No inciting trauma, no animal exposures, no unusual contamination. No fever. Was in shower, had large amount of blood and pus spontaneously drain. Came to ED, admitted on vanc/zosyn. Pain and redness improved today. Seen by Dr. Ramos, surgery planned. No n/v/d. Full ROS performed and neg except as noted above. - Medical History Past Medical History (Chronic Problems): Chronic Problems (Last Reviewed 06/02/19 @ 10:27 by Chen Ward) Dry skin dermatitis (Chronic) Thrombocytopenia (Chronic) Sleep apnea (Chronic) Osteoarthritis (Chronic) Bilateral lower extremity edema (Chronic) Type 2 diabetes mellitus (Chronic) History of esophageal disorder (Chronic) Hypertension (Chronic) Allergies/Adverse Reactions: Allergies ketorolac [From Toradol] Adverse Reaction (Verified 07/17/19 08:44) Upset Stomach NSAIDS (Non-Steroidal Anti-Inflamma Adverse Reaction (Verified 07/17/19 08:44) Upset Stomach Home Medications: Ambulatory Orders Medication Instructions Recorded acetaminophen 500 mg tablet 500 mg PO Q6H #90 tab 02/07/19 blood sugar diagnostic 1 strip MISCELLANEOUS .MEDSUPPLY 02/07/19 #100 ea lisinopril 40 mg tablet 40 mg PO DAILY #90 tab 02/07/19 metformin 1,000 mg tablet 1,000 mg PO BID #180 tab 02/07/19 hydrocortisone 2.5 % topical cream 1 applic TOPICAL BID #30 g 02/22/19 metoprolol succinate 25 mg 25 mg PO DAILY #90 tab 02/22/19 tablet,extended release 24 hr dulaglutide 1.5 mg/0.5 mL 1.5 mg SC QWEEK #6 ml 03/28/19 subcutaneous pen injector alcohol swabs 4 pad TOPICAL DAILY #4000 ea 04/25/19 lancets 28 gauge 28 gauge MISCELLANEOUS .MEDSUPPLY 05/19/19 #100 ea hydrochlorothiazide 12.5 mg tablet 12.5 mg PO DAILY #90 tab 06/02/19 tramadol 50 mg tablet 50 mg PO Q12H PRN #14 tab 06/27/19 - Social History Tobacco Use: cigarettes Vital Signs Temp Pulse Resp BP Pulse Ox 97.8 F 89 16 154/91 H 94 07/18/19 07:33 07/18/19 07:33 07/18/19 07:33 07/18/19 07:33 07/18/19 07:33 Oxygen Delivery Method Room Air Weight: 178.8 kg Body Mass Index (BMI) 54.9 Finger Stick Blood Glucose 154 Laboratory Tests Past 24 Hrs 07/17/19 07/17/19 07/17/19 09:15 09:15 15:45 WBC RBC Hgb Hct MCV MCH MCHC RDW Std Deviation RDW Coeff of Maria Fernanda Plt Count MPV Immature Gran % (Auto) Neut % (Auto) Lymph % (Auto) [place] % (Auto) Eos % (Auto) Baso % (Auto) Absolute Neuts (auto) Absolute Lymphs (auto) Nucleated RBC % Sodium 131 L Potassium 3.9 Chloride 97 L Carbon Dioxide 29.0 Anion Gap 5 BUN 11 Creatinine 0.91 Estim Creat Clear Calc 104.58 Est GFR (MDRD) Af Amer 113 Est GFR (MDRD) Non-Af 94 BUN/Creatinine Ratio 12.0 Glucose 258 H Hemoglobin A1c Lactic Acid 1.4 Calcium 8.4 L Total Bilirubin 1.00 AST 10 L ALT 21 Alkaline Phosphatase 67 Total Protein 7.5 Albumin 2.9 L Globulin 4.6 H Albumin/Globulin Ratio 0.6 L Vancomycin Trough S.aureus Protein A PCR NEGATIVE MRSA (PCR) Negative 07/18/19 07/18/19 07/18/19 05:20 05:20 05:20 WBC 9.6 RBC 5.13 Hgb 13.9 Hct 44.6 MCV 86.9 MCH 27.1 MCHC 31.2 L RDW Std Deviation 43.6 RDW Coeff of Maria Fernanda 13.6 Plt Count 173 MPV 11.2 Immature Gran % (Auto) 2.200 H Neut % (Auto) 75.0 H Lymph % (Auto) 12.5 L [place] % (Auto) 7.7 Eos % (Auto) 2.2 Baso % (Auto) 0.4 Absolute Neuts (auto) 7.2 Absolute Lymphs (auto) 1.20 Nucleated RBC % 0 Sodium 137 Potassium 3.9 Chloride 105 Carbon Dioxide 29.0 Anion Gap 3 L BUN 11 Creatinine 0.83 Estim Creat Clear Calc 114.66 Est GFR (MDRD) Af Amer 126 Est GFR (MDRD) Non-Af 104 BUN/Creatinine Ratio 13.2 Glucose 200 H Hemoglobin A1c 9.0 H Lactic Acid Calcium 7.8 L Total Bilirubin AST ALT Alkaline Phosphatase Total Protein Albumin Globulin Albumin/Globulin Ratio Vancomycin Trough S.aureus Protein A PCR MRSA (PCR) 07/18/19 09:15 WBC RBC Hgb Hct MCV MCH MCHC RDW Std Deviation RDW Coeff of Maria Fernanda Plt Count MPV Immature Gran % (Auto) Neut % (Auto) Lymph % (Auto) [place] % (Auto) Eos % (Auto) Baso % (Auto) Absolute Neuts (auto) Absolute Lymphs (auto) Nucleated RBC % Sodium Potassium Chloride Carbon Dioxide Anion Gap BUN Creatinine Estim Creat Clear Calc Est GFR (MDRD) Af Amer Est GFR (MDRD) Non-Af BUN/Creatinine Ratio Glucose Hemoglobin A1c Lactic Acid Calcium Total Bilirubin AST ALT Alkaline Phosphatase Total Protein Albumin Globulin Albumin/Globulin Ratio Vancomycin Trough Pending S.aureus Protein A PCR MRSA (PCR) - Other Studies Radiology: [] reviewed Other Studies: [] Route of nutrition/ use of supplements: [] Nutritional Intake: [] IV Site: [] [place]ulkner Catheter: [] - Physical Exam General: Alert, Oriented x3, Cooperative, No apparent distress HEENT: Atraumatic, PERRLA, EOMI Neck: Supple, No Nodes Lungs: Clear to auscultation, Normal air movement Cardiovascular: Regular rate, Regular Rhythm, No murmurs Abdomen: Soft, Non Tender, Non-Distended, Obese Extremities: Edema Skin: Ulcer/ Wound - foot wrapped IV Site: Peripheral, without redness Musculoskeletal: No Tenderness to Palpation of Joints or Extremities Neurological: Cranial nerves II-XII grossly intact - Assessment/Plan Antibiotics: [] Assessment/Plan: [] Active and Suspected Problems (Last Reviewed 06/02/19 @ 10:27 by Chen Ward) Cellulitis of foot, left (Acute) Sepsis (Acute) Hyperglycemia due to type 2 diabetes mellitus (Acute) Sinus tachycardia seen on registered nurse cardiac (Acute) sepsis due to L 5th toe gangrene with uncontrolled DM - cont vanc/zosyn. OR planned for today. Staph aureus pcr neg. Wbc now normalized. Will follow, thank you, d/w Dr. Villavicencio.
[2019-07-18] MEDS: Metoprolol(XL)Succ 25 MG Tablet PO (09:47)
--- NOTE | 2019-07-18 10:53 | CASEMGMT ---
RN CM Note: pt not in room to complete RN CM assessment at this time. Srinivas BSN RN ACM
[2019-07-18 11:10] LABS: Bedside Glucose 217 mg/dL (70-110)
--- NOTE | 2019-07-18 11:49 | NURSING ---
Pt going down to surgery with Dr Ramos today at noon so will leave dressing in place.
[2019-07-18] MEDS: Bupivacaine Mpf 0.5% 30 ML VIAL (12:08)
[2019-07-18] MEDS: Lactated Ringers 1,000 ML 100 ML IV ×2 (12:15→18:35)
--- NOTE | 2019-07-18 12:37 | OP.PCM_ITS ---
Report of Operation Date of Procedure: 07/18/19 Pre-Operative Diagnosis: Gangrene, necrotic ulcer down to bone left 5th toe, osteomyelitis 5th toe, cellulitis left foot Post-Operative Diagnosis: Same Surgery/Procedure Performed:: Debridement of all nonviable, infected, necrotic soft tissue and bone left foot w/ left 5th toe amputation, bone biopsy of left 5th metatarsal director technical: None Type of Anesthesia:: Local MAC Specimen's removed: 1. Left 5th toe bone sent to microbiology. 2. Left 5th toe sent to pathology. 3. Clearance fragment left 5th metatarsal sent to microbiology and pathology Estimated Blood Loss (mL): 1mL Description of Procedure: Indications: The patient is a 49 year old male with multiple medical problems including uncontrolled diabetes, peripheral neuropathy who presented with left 5th toe ulceration with necrosis down to bone, and significant cellulitis to the toe extending to the foot and ankle. We discussed the options with the patient in great detail, and patient elected to proceed with the procedure. This was discussed with him in detail, reviewed the possible benefits vs risks. They were advised the risks include, but are not limited to pain, further infections, need for further surgery, nonhealing, delay healing, scarring, poor cosmetic result, numbness, weakness, loss of function, complex regional pain syndrome, blood clots, loss of limb, loss of life. They expressed understanding and agreement, they were able to repeat back, all questions were answered. The consent form was reviewed and it was freely signed. No guarantees were given nor implied. Operative Procedure: The patient was brought into the operating room, and was place on the operating room table in the supine position. He was carefully secured to the operating room table with a safely belt around his waist. A time out was performed, the patient was properly identified and the surgical plan was confirmed. He was already on IV antibiotics per Infectious Disease. A well padded pneumatic tourniquet was placed around the left ankle. The patient received MAC anesthesia per the anesthesiologist, then a total of 10mL of 0.5% Marcaine plain was given as a left foot 5th ray block after the skin was cleansed with 70% isopropyl alcohol. The left foot was scrubbed, prepped and draped in the usual aseptic fashion. The left foot was elevated for 3 minutes, and the left ankle pneumatic tourniquet was inflated to 250mmHg. There was noted to be significant necrosis down to bone of the 5th toe with drainage, edema and maloder consistent with infection. Using a 15 scalpel blade, all nonviable, necrotic, infected soft tissue and bone was debrided, this entailed having to remove the entire 5th toe at the level of the 5th metatarsal phalangeal joint. The toe was disarticulated at the 5th metatarsal phalangeal joint. All of the phalanges of the 5th toe were noted to be nonviable, soft, with areas of yellow/black and mcintyre discoloration consistent with osteomyelitis. There was also purulence in the soft tissues of the toe with chronic abscess formation. All nonviable bone and soft tissue was debrided in excisional fashion. A bone culture was obtained from the toe and was sent to microbiology for further evaluation. The removed tissue was sent to pathology for further evaluation as well. The site was flushed out with copious amounts of normal saline solution. The head of the 5th metatarsal was visualized and appears to have some degenerative changes from osteoarthritis, but otherwise overall appeared to be healthy viable and free of infection. Using a bone cutting rongeur a piece of the bone was resected from the head of the 5th metatarsal and it was sent to microbiology and pathology as a clearance fragments. All remaining tissues appeared to be healthy and viable, free of any infection. The site was again flushed out with copious amounts of normal saline solution. A flap was created with the remaining viable skin using a 15 blade, the skin edges were brought together and were reapproximated using 3-0 Prolene. The pneumatic tourniquet was deflated, and there was immediate return of good vascular flow to the left foot, with normal temperature gradient and CFT < 2 seconds to the amputation site and to all remaining toes. Total tourniquet time was 25 minutes. A dressing was applied which consisted of betadine soaked adaptic, 4x4 gauze, kerlix and ismael dressing. Patient tolerated the above procedure well with no complications. He was transferred back to the floor with vital signs stable and in good condition.e will be followed as inpatient. Post op xrays were ordered of the left foot - these were reviewed which confirmed 5th toe debridement/removal. There is also noted to be foreign body to the plantar 1st intermetatarsal space - upon reviewed of yesterday's xrays this was present as well. Clinically there is no evidence of infection, there was a wound to the dorsal 1st IM space which was small and stable, we will need to treat this with local wound care, and we may need to eventually go back for foreign body removal once infection clears. No weightbearing left foot, keep left foot elevated. Grafts/Implants Used: None - Complications None
--- NOTE | 2019-07-18 13:02 | RAD_ITS ---
STUDY: X-RAY - LEFT FOOT CLINICAL: Male, 49 years old. Postop. TECHNIQUE: 3 view(s) of the foot. COMPARISON: 07/17/2019 radiographs. FINDINGS: Interval amputation of the fifth toe. The fifth metatarsal remains and is unremarkable. Prominent soft tissue swelling of the operative bed. RAD/Foot min 3 Views IMPRESSION: Interval amputation of the fifth toe. No acute fracture or apparent complication. Electronically Signed: Max Rollins, at 3:18 EST Tel , Service support ,
[2019-07-18] MEDS: Lisinopril 40 MG Tablet PO (13:42)
[2019-07-18] MEDS: hydroCHLOROthiazide 12.5mg 12.5 MG PO (13:42)
--- NOTE | 2019-07-18 16:04 | CHAPLAIN ---
Type of Pastoral Visit ___ Initial Visit _x__ Follow-up Visit ___ On-call Visit ___ General Patient Visit ___ Spiritual Assessment ___ Family Conference ___ Bereavement ___ Rapid Response ___ Code Blue ___ Other (describe below) Pastoral Care Referral From _x__ Patient ___ Family ___ Nurse ___ Physician ___ Development And Housing Director ___ Manager Target ___ Other (describe below) Sacrament/Intervention _x__ Active listening ___ Anointing ___ Episcopal ___ Bereavement ___ Communion ___ Cami exploration ___ ___ Life review _x__ Prayer ___ Reconciliation ___ Sacrament of Sick _x__ Supportive presence ___ Wedding ___ Other (describe below) Pastoral Comments
[2019-07-18 16:16] LABS: Bedside Glucose 228 mg/dL (70-110)
[2019-07-18] MEDS: traMADol 50 MG Tablet PO (16:51)
[2019-07-18 17:00] LABS: Bedside Glucose 192 mg/dL (70-110)
[2019-07-18] MEDS: Morphine 2 MG/ML Syringe IV (21:41)
[2019-07-18 23:11] LABS: Bedside Glucose 188 mg/dL (70-110)
[2019-07-19 02:06] VITALS: BP 126/58; PULSE 86; RESP 16; TEMP 36.3; O2SAT 93
--- NOTE | 2019-07-19 06:27 | PN_ITS ---
Patient Problems: Active and Suspected Problems (Last Reviewed 06/02/19 @ 10:27 by Chen Ward) Cellulitis of foot, left (Acute) Sepsis (Acute) Hyperglycemia due to type 2 diabetes mellitus (Acute) Sinus tachycardia seen on court monitor (Acute) Subjective: Patient was seen this morning for follow up on left foot. He was sitting up in chair resting comfortably. No complaints of fever, chills, nausea or vomiting. No new complaints this morning. - Physical Exam Vitals/I&O's: Vital Signs Temp Pulse Resp BP Pulse Ox 97.4 F L 86 16 126/58 H 93 07/19/19 02:06 07/19/19 02:06 07/19/19 02:06 07/19/19 02:06 07/19/19 02:06 Oxygen Delivery Method Room Air Weight: 178.8 kg Body Mass Index (BMI) 55.1 Finger Stick Blood Glucose 154 Intake and Output for Last 24 Hours 07/17/19 07/18/19 07/19/19 23:59 23:59 23:59 Intake Total 2220 / 2220 3406.75 / 3406.75 1110 / 1110 Output Total 300 / 300 Balance 2220 / 2220 3106.75 / 3106.75 1110 / 1110 General: Alert, Oriented x3, Cooperative, No apparent distress Extremities: Capillary Refill Less than 3 Seconds, - - s/p debridement 5th toe, remaining tissues healthy and viable, sutures intact, no maloder, no necrosis, no fluctuance, no crepitus, no streaking - cellulitis resolving and much improved. Reviewed noninvasive lower extremity arterial studies and good flow noted to foot. Musculoskeletal: No Tenderness to Palpation of Joints or Extremities Psych/Mental Status: Alert and oriented to time, place, person, mood and affect Microbiology Past 72 Hours 07/17/19 15:45 Wound - Left Foot Gram Stain - Final 07/17/19 15:45 Wound - Left Foot Wound Culture - Preliminary Gram positive organism Laboratory Results 07/18/19 05:20: Sodium 137, Potassium 3.9, Chloride 105, Carbon Dioxide 29.0, Anion Gap 3 L, BUN 11, Creatinine 0.83, Estim Creat Clear Calc 114.66, Est GFR ( MDRD) Af Amer 126, Est GFR (MDRD) Non-Af 104, BUN/Creatinine Ratio 13.2, Glucose 200 H, Calcium 7.8 L 07/18/19 05:20: Hemoglobin A1c 9.0 H 07/18/19 06:44: POC Glucose 228 H 07/18/19 09:15: Vancomycin Trough 11.0 07/18/19 10:51: POC Glucose 217 H 07/18/19 16:46: POC Glucose 192 H 07/18/19 21:49: POC Glucose 188 H Current Medications Acetaminophen (Tylenol) 650 mg PO Q6H PRN PRN PRN Reason: Pain Score 1-10/Temp > 100.7 F Last Admin: 07/17/19 21:37 Dose: 650 mg Documented by: Enoxaparin Sodium (Lovenox) 40 mg SC DAILY [facility] Last Admin: 07/18/19 13:43 Dose: Not Given Documented by: Glucagon () 1 mg IM .X1 PRN PRN Reason: Hypoglycemia Hydrochlorothiazide () 12.5 mg PO DAILY [facility] Last Admin: 07/18/19 13:42 Dose: 12.5 mg Documented by: Vancomycin IV Pharmacy to Dose (1 ea/ Sodium Chloride) 500 mls @ 250 mls/hr IV X1 PRN; Protocol PRN Reason: Rx to Dose Sodium Chloride () 250 mls @ 15 mls/hr IV .[id number] PRN PRN Reason: Saline Flush Last Infusion: 07/19/19 02:08 Dose: 15 mls/hr Documented by: Dextrose (Dextrose 10%-Water) 250 mls @ 999 mls/hr IV .Q16M PRN; Protocol PRN Reason: HYPOGLYCEMIA Piperacillin Sod/Tazobactam (Sod 3.375 gm/ Sodium Chloride) 50 mls @ 12.5 mls/hr IV Q8 [facility] Last Infusion: 07/19/19 02:08 Dose: Infused Documented by: Vancomycin HCl 1,500 mg/ (Sodium Chloride) 530 mls @ 250 mls/hr IV Q8H [facility] Last Infusion: 07/19/19 04:14 Dose: Infused Documented by: Lactated Ringer's () 1,000 mls @ 100 mls/hr IV .Q10H [facility] Last Infusion: 07/19/19 04:14 Dose: 100 mls/hr Documented by: Insulin Glargine (Lantus (Bkc)) 10 units SC QHS [facility] Last Admin: 07/18/19 21:51 Dose: 10 u Documented by: Insulin Human Lispro (Humalog Kwikpen (Bkc)) 0 unit SC [facility]; Protocol Last Admin: 07/18/19 21:50 Dose: 2 u Documented by: Lisinopril (Zestril) 40 mg PO DAILY [facility] Last Admin: 07/18/19 13:42 Dose: 40 mg Documented by: Metoprolol Succinate (Toprol Xl (Beta Valente)) 25 mg PO DAILY [facility] Last Admin: 07/18/19 09:47 Dose: 25 mg Documented by: Morphine Sulfate () 2 mg IV Q6H PRN PRN PRN Reason: Pain Score 7-10/10 Last Admin: 07/18/19 21:41 Dose: 2 mg Documented by: Oxycodone HCl (Oxyir) 5 mg PO Q4H PRN PRN PRN Reason: Pain Score 4-6/10 Sodium Chloride () 10 - 40 ml IV UD PRN PRN Reason: SALINE FLUSH Last Admin: 07/17/19 18:19 Dose: 20 ml Documented by: Medical Necessity - Tobacco Use Smoking Status: Current every day smoker Tobacco Use: Cigarettes Assessment/Plan All Active Problems (Last Reviewed 06/02/19 @ 10:27 by Chen Ward) Cellulitis of foot, left (Acute) Sepsis (Acute) Hyperglycemia due to type 2 diabetes mellitus (Acute) Sinus tachycardia seen on court monitor (Acute) Cellulitis of right lower extremity (Acute) DVT (deep venous thrombosis) (Resolved) History of gallstones (Resolved) Gangrene left 5th toe s/p debridement amputation on 07/18/19 Cellulitis left foot Diabetes with peripheral neuropathy Possible lower extremity peripheral arterial disease Tobacco Use Dressing change performed left foot this morning. Site healing, and cellulitis resolved. Remaining tissue appears healthy and viable. Painted site with Betadine solution and applied gauze, kerlix and ismael dressing - keep clean, dry and intact - change daily. Ok to put weight on left heel, no weight on forefoot. Keep foot elevated. Patient on antibiotics per ID, continue to follow culture results. Reviewed noninvasive lower extremity arterial studies and good flow noted. From podiatry standpoint ok to d/c home (patient relates he has sister who will help him) when ok with medicine team and ID service. Leave dressing clean, dry and intact and patient to follow up in 2-3 days at office, sooner if needed. Otherwise will continue to follow daily while inpatient.
[2019-07-19] MEDS: Insulin Lispro 100 UNIT/ML INSULN.PEN SC ×4 (06:39→22:20)
[2019-07-19 06:56] LABS: Bedside Glucose 179 mg/dL (70-110)
[2019-07-19 09:01] VITALS: BP 132/76; PULSE 89; RESP 16; TEMP 37.3; O2SAT 94
[2019-07-19 09:24] VITALS: PULSE 89
[2019-07-19] MEDS: Enoxaparin 40 MG/0.4 ML Syringe SC (09:24)
[2019-07-19] MEDS: Metoprolol(XL)Succ 25 MG Tablet PO (09:24)
[2019-07-19] MEDS: hydroCHLOROthiazide 12.5mg 12.5 MG PO (09:24)
[2019-07-19] MEDS: Lisinopril 40 MG Tablet PO (09:24)
[2019-07-19] MEDS: oxyCODONE 5 MG Tablet PO ×2 (09:29→17:43)
[2019-07-19] MEDS: 0.9% Saline Lock 10 ML Syringe IV (10:58)
[2019-07-19 11:01] LABS: Bedside Glucose 238 mg/dL (70-110)
--- NOTE | 2019-07-19 11:40 | PCM.PN.HOSP ---
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) Subjective: Has a little bit of pain at the surgical site but otherwise doing okay Vitals/I&O's: Vital Signs Temp Pulse Resp BP Pulse Ox 99.2 F H 89 16 132/76 H 94 07/19/19 09:01 07/19/19 09:24 07/19/19 09:01 07/19/19 09:01 07/19/19 09:01 Oxygen Delivery Method Room Air Weight: 394 lb 2.984 oz Body Mass Index (BMI) 55.1 Finger Stick Blood Glucose 154 Intake and Output for Last 24 Hours 07/17/19 07/18/19 07/19/19 23:59 23:59 23:59 Intake Total 2220 / 2220 3406.75 / 3406.75 1227.75 / 1227.75 Output Total 300 / 300 Balance 2220 / 2220 3106.75 / 3106.75 1227.75 / 1227.75 General: Alert, Oriented x3, Cooperative, No apparent distress HEENT: Atraumatic, PERRLA, EOMI, Normocephalic Oral: Moist Mucosa Neck: Supple, No JVD Lungs: Clear to auscultation, Normal air movement, No rhonchi, No wheeze, No rales, Diminished Cardiovascular: Regular rate, Regular Rhythm, Normal S1, Normal S2, No murmurs Abdomen: Soft, Non Tender, Non-Distended, No Hepato-splenomegaly, Obese Extremities: Edema 2+ non-pitting, - -s/p amputation of left pinky toe, dressing is CDI Skin: No rashes, No breakdown Neurological: Neuro grossly intact, Sensory exam intact to light touch and pain - Though he does have slight diminished sensation in his lower extremities Psych/Mental Status: Normal Affect, Appropriate Microbiology Past 72 Hours 07/17/19 15:45 Wound - Left Foot Gram Stain - Final 07/17/19 15:45 Wound - Left Foot Wound Culture - Preliminary Gram positive organism 07/17/19 15:45 Wound - Left Foot Anaerobic Culture - Preliminary 07/17/19 09:59 Blood Culture (Wb) - Right Hand Blood Culture - Preliminary No growth in 48 hours. 07/17/19 09:49 Blood Culture (Wb) - Anticubital Left Blood Culture - Preliminary No growth in 48 hours. Laboratory Results 07/18/19 06:44: POC Glucose 228 H 07/18/19 16:46: POC Glucose 192 H 07/18/19 21:49: POC Glucose 188 H 07/19/19 06:38: POC Glucose 179 H 07/19/19 10:54: POC Glucose 238 H Current Medications Acetaminophen (Tylenol) 650 mg PO Q6H PRN PRN PRN Reason: Pain Score 1-10/Temp > 100.7 F Last Admin: 07/17/19 21:37 Dose: 650 mg Documented by: Enoxaparin Sodium (Lovenox) 40 mg SC DAILY [facility] Last Admin: 07/19/19 09:24 Dose: 40 mg Documented by: Glucagon () 1 mg IM .X1 PRN PRN Reason: Hypoglycemia Hydrochlorothiazide () 12.5 mg PO DAILY [facility] Last Admin: 07/19/19 09:24 Dose: 12.5 mg Documented by: Vancomycin IV Pharmacy to Dose (1 ea/ Sodium Chloride) 500 mls @ 250 mls/hr IV X1 PRN; Protocol PRN Reason: Rx to Dose Sodium Chloride () 250 mls @ 15 mls/hr IV .[id number] PRN PRN Reason: Saline Flush Last Infusion: 07/19/19 06:39 Dose: 0 mls/hr Documented by: Dextrose (Dextrose 10%-Water) 250 mls @ 999 mls/hr IV .Q16M PRN; Protocol PRN Reason: HYPOGLYCEMIA Piperacillin Sod/Tazobactam (Sod 3.375 gm/ Sodium Chloride) 50 mls @ 12.5 mls/hr IV Q8 [facility] Last Infusion: 07/19/19 10:40 Dose: Infused Documented by: Vancomycin HCl 1,500 mg/ (Sodium Chloride) 530 mls @ 250 mls/hr IV Q8H [facility] Last Admin: 07/19/19 09:30 Dose: 200 mls/hr Documented by: Lactated Ringer's () 1,000 mls @ 100 mls/hr IV .Q10H [facility] Last Infusion: 07/19/19 04:14 Dose: 100 mls/hr Documented by: Insulin Glargine (Lantus (Bkc)) 10 units SC QHS [facility] Last Admin: 07/18/19 21:51 Dose: 10 u Documented by: Insulin Human Lispro (Humalog Kwikpen (Bk)) 0 unit SC [facility]; Protocol Last Admin: 07/19/19 10:57 Dose: 4 u Documented by: Lisinopril (Zestril) 40 mg PO DAILY [facility] Last Admin: 07/19/19 09:24 Dose: 40 mg Documented by: Metoprolol Succinate (Toprol Xl (Beta Valente)) 25 mg PO DAILY [facility] Last Admin: 07/19/19 09:24 Dose: 25 mg Documented by: Morphine Sulfate () 2 mg IV Q6H PRN PRN PRN Reason: Pain Score 7-10/10 Last Admin: 07/18/19 21:41 Dose: 2 mg Documented by: Oxycodone HCl (Oxyir) 5 mg PO Q4H PRN PRN PRN Reason: Pain Score 4-6/10 Last Admin: 07/19/19 09:29 Dose: 5 mg Documented by: Sodium Chloride () 10 - 40 ml IV UD PRN PRN Reason: SALINE FLUSH Last Admin: 07/19/19 10:58 Dose: 20 ml Documented by: STROKE Vital Signs/Narrative: Vital Signs Temp Pulse Resp BP Pulse Ox 07/19/19 09:24 89 07/19/19 09:01 99.2 F H 89 16 132/76 H 94 Medical Necessity - Tobacco Use Smoking Status: Current every day smoker Tobacco Use: Cigarettes Assessment/Plan All Active Problems (Last Reviewed 06/02/19 @ 10:27 by Chen Ward) Cellulitis of foot, left (Acute) Sepsis (Acute) Hyperglycemia due to type 2 diabetes mellitus (Acute) 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 Sepsis secondary to left lower extremity cellulitis with gangrenous left pinky toe s/p amputation 07/18/2019/chronic venous stasis changes -Leukocytosis resolved, afebrile, cultures are pending -Lactate on admission was 1.4 -Continue vancomycin and Zosyn, MRSA PCR was negative -Consult ID -Appreciate podiatry recs, vascular studies are unremarkable as he had dressings on his LLE -Cx are pending 2. DM 2/morbid obesity -He is on metformin and dulaglutide -On admission blood sugar was 246, states that he does not have diabetes -We will start him on long-acting insulin as well as sliding scale insulin -A1c is 10.2 in February 07, 2019 -BMI is in the 50s, discussed weight loss and lifestyle modifications, will put him on a calorie restricted diet 3. HTN -Blood pressures in the 130s to 140s -Continue with his home blood pressure medications -We will monitor his renal function with his lisinopril and hydrochlorothiazide DVT: Lovenox Code Visit Inpatient E&M: 74678 Subs Hosp L2
[2019-07-19 13:34] VITALS: BP 165/76; PULSE 82; RESP 16; TEMP 36.7; O2SAT 92
--- NOTE | 2019-07-19 14:25 | CASEMGMT ---
RN CM Face to Face with patient for initial transition planning/care coordination assessment. RN CM introduced self and role at [facility]. Patient sitting in chair, alert and oriented. Patient willing to participate in assessment and is able to answer all questions appropriately. Care providers, pharmacy, and demographics verified. Patient wishes to discharge home, will monitor for need for HHC pending course of treatment. Patient states he has no further needs or concerns at this time. CM to follow for discharge planning needs that may arise. PCP: Zackary Specialists: Richard podiatrlety Preferred Pharmacy: [facility] Insurance: [employer] Prescription Benefit: yes Living Will/HPOA: none LNOK: Brother Living Arrangements: Patient lives alone in 1st floor apartment with no steps to enter the home. Transportation: [facility] DME/HHC: Patient is being setup with [facility] through [employer]. Patient may benefit from walker at discharge. CM to assist with setup. Patient has had [facility] in the past. Disposition Plan: Patient to discharge home with family support and follow-up plans in place. Will monitor for need for HHC. Bella MTZ, RN, CM
[2019-07-19 16:05] VITALS: BP 140/75; PULSE 80; RESP 16; TEMP 36.9; O2SAT 96
[2019-07-19] MEDS: Lactated Ringers 1,000 ML 100 ML IV (16:13)
[2019-07-19 16:25] LABS: Bedside Glucose 169 mg/dL (70-110)
--- NOTE | 2019-07-19 16:36 | PCM.PN.ID ---
Patient Problems: Active and Suspected Problems (Last Reviewed 06/02/19 @ 10:27 by Chen Ward) Cellulitis of foot, left (Acute) Sepsis (Acute) Hyperglycemia due to type 2 diabetes mellitus (Acute) Sinus tachycardia seen on shelter monitor (Acute) Subjective: Feeling good, pain controlled, no fever, no n/v/d - Physical Exam Vitals/I&O's: Vital Signs Temp Pulse Resp BP Pulse Ox 98.5 F 80 16 140/75 H 96 07/19/19 16:05 07/19/19 16:05 07/19/19 16:05 07/19/19 16:05 07/19/19 16:05 Oxygen Delivery Method Room Air Weight: 178.8 kg Body Mass Index (BMI) 55.1 Finger Stick Blood Glucose 154 Intake and Output for Last 24 Hours 07/17/19 07/18/19 07/19/19 23:59 23:59 23:59 Intake Total 2220 / 2220 3406.75 / 3406.75 2186.08 / 2186.08 Output Total 300 / 300 Balance 2220 / 2220 3106.75 / 3106.75 2186.08 / 2186.08 General: Alert, Cooperative, No apparent distress Lungs: Clear to auscultation, Normal air movement Cardiovascular: Regular rate, Regular Rhythm Abdomen: Soft, Non Tender, Non-Distended Skin: Ulcer/ Wound - foot wrapped Microbiology Past 72 Hours 07/18/19 12:20 Tissue - Toe Gram Stain - Final 07/18/19 12:20 Tissue - Toe Wound Culture - Preliminary Gram positive organism 07/18/19 13:00 Tissue - Toe Gram Stain - Final 07/18/19 13:00 Tissue - Toe Wound Culture - Preliminary Gram positive organism 07/17/19 15:45 Wound - Left Foot Gram Stain - Final 07/17/19 15:45 Wound - Left Foot Wound Culture - Preliminary Gram positive organism 07/17/19 15:45 Wound - Left Foot Anaerobic Culture - Preliminary 07/17/19 09:59 Blood Culture (Wb) - Right Hand Blood Culture - Preliminary No growth in 48 hours. 07/17/19 09:49 Blood Culture (Wb) - Anticubital Left Blood Culture - Preliminary No growth in 48 hours. Laboratory Results 07/18/19 16:46: POC Glucose 192 H 07/18/19 21:49: POC Glucose 188 H 07/19/19 06:38: POC Glucose 179 H 07/19/19 10:54: POC Glucose 238 H 07/19/19 16:11: POC Glucose 169 H Current Medications Acetaminophen (Tylenol) 650 mg PO Q6H PRN PRN PRN Reason: Pain Score 1-10/Temp > 100.7 F Last Admin: 07/17/19 21:37 Dose: 650 mg Documented by: Enoxaparin Sodium (Lovenox) 40 mg SC DAILY [facility] Last Admin: 07/19/19 09:24 Dose: 40 mg Documented by: Glucagon () 1 mg IM .X1 PRN PRN Reason: Hypoglycemia Hydrochlorothiazide () 12.5 mg PO DAILY [facility] Last Admin: 07/19/19 09:24 Dose: 12.5 mg Documented by: Vancomycin IV Pharmacy to Dose (1 ea/ Sodium Chloride) 500 mls @ 250 mls/hr IV X1 PRN; Protocol PRN Reason: Rx to Dose Sodium Chloride () 250 mls @ 15 mls/hr IV .[id number] PRN PRN Reason: Saline Flush Last Infusion: 07/19/19 06:39 Dose: 0 mls/hr Documented by: Dextrose (Dextrose 10%-Water) 250 mls @ 999 mls/hr IV .Q16M PRN; Protocol PRN Reason: HYPOGLYCEMIA Piperacillin Sod/Tazobactam (Sod 3.375 gm/ Sodium Chloride) 50 mls @ 12.5 mls/hr IV Q8 [facility] Last Admin: 07/19/19 13:33 Dose: 12.5 mls/hr Documented by: Vancomycin HCl 1,500 mg/ (Sodium Chloride) 530 mls @ 250 mls/hr IV Q8H [facility] Last Infusion: 07/19/19 13:07 Dose: Infused Documented by: Lactated Ringer's () 1,000 mls @ 100 mls/hr IV .Q10H [facility] Last Admin: 07/19/19 16:13 Dose: 100 mls/hr Documented by: Insulin Glargine (Lantus (Bk)) 10 units SC QHS [facility] Last Admin: 07/18/19 21:51 Dose: 10 u Documented by: Insulin Human Lispro (Humalog Kwikpen (Bk)) 0 unit SC ACHS [facility]; Protocol Last Admin: 07/19/19 10:57 Dose: 4 u Documented by: Lisinopril (Zestril) 40 mg PO DAILY [facility] Last Admin: 07/19/19 09:24 Dose: 40 mg Documented by: Metoprolol Succinate (Toprol Xl (Beta Valente)) 25 mg PO DAILY [facility] Last Admin: 07/19/19 09:24 Dose: 25 mg Documented by: Morphine Sulfate () 2 mg IV Q6H PRN PRN PRN Reason: Pain Score 7-10/10 Last Admin: 07/18/19 21:41 Dose: 2 mg Documented by: Oxycodone HCl (Oxyir) 5 mg PO Q4H PRN PRN PRN Reason: Pain Score 4-6/10 Last Admin: 07/19/19 09:29 Dose: 5 mg Documented by: Sodium Chloride () 10 - 40 ml IV UD PRN PRN Reason: SALINE FLUSH Last Admin: 07/19/19 10:58 Dose: 20 ml Documented by: Medical Necessity - Tobacco Use Smoking Status: Current every day smoker Tobacco Use: Cigarettes Route of nutrition/ use of supplements: [] Nutritional Intake: [] IV Site: [] Faulkner Catheter: [] - Assessment/Plan Antibiotics: [] Assessment/Plan: [] Active and Suspected Problems (Last Reviewed 06/02/19 @ 10:27 by Chen Ward) Cellulitis of foot, left (Acute) Sepsis (Acute) Hyperglycemia due to type 2 diabetes mellitus (Acute) Sinus tachycardia seen on shelter monitor (Acute) sepsis due to L 5th toe gangrene with uncontrolled DM - cont vanc/zosyn. S/p OR yesterday. Staph aureus pcr neg. Wbc now normalized. Cxs with GPCs. Plan on home with po abx tomorrow now that he has had good source control. Will follow, d/w Dr. Villavicencio.
[2019-07-19 22:09] VITALS: BP 149/81; PULSE 84; RESP 18; TEMP 36.5; O2SAT 94
[2019-07-19 23:01] LABS: Bedside Glucose 203 mg/dL (70-110)
[2019-07-20 02:01] VITALS: BP 148/78; PULSE 85; RESP 16; TEMP 37.2; O2SAT 93
[2019-07-20] MEDS: oxyCODONE 5 MG Tablet PO ×3 (02:12→11:14)
[2019-07-20] MEDS: Lactated Ringers 1,000 ML 100 ML IV (05:57)
[2019-07-20 06:01] LABS: Absolute Lymphocyte Count 1.39 X10^3/uL (0.83-4.51); Basophil# 0.04 X10^3/uL; Basophil% 0.6 % (0-1); Eosinophil# 0.22 X10^3/uL; Hematocrit 42.1 % (40-54); Hemoglobin 13.2 g/dL (13.0-16.5); Lymphocyte # 1.39 X10^3/ul (4.0); Lymphocyte % 19.1 % (19-41); Mean Corp Hgb Conc 31.4 g/dL (32-36); Mean Corpuscular Hgb 26.9 pg (27.0-32.0); Mean Corpuscular Volume 85.9 fL (80-94); Mean Platelet Vol. 11.2 fl (6.2-12.0); Monocyte# 0.52 X10^3/uL; Monocyte% 7.2 % (0-10); NRBC Flagged by Analyzer 0 % (0-5); Neutrophil # 4.95 X10^3/uL (2.7-7.7); Platelet Count 169 K/mm3 (150-450); RBC Distribution Width CV 13.2 % (11.6-14.6); RBC Distribution Width SD 41.8 fl (35.1-43.9); White Blood Count 7.3 K/mm3 (4.4-11.0)
[2019-07-20 06:13] LABS: Anion Gap 6 (5-15); BUN 10 mg/dL (7-18); Calcium,Total 8.8 mg/dL (8.5-10.1); Chloride 105 mmol/L (98-107); Creatinine, Serum 0.83 mg/dL (0.70-1.30); EST Glomerular Filtration Rate 104 mL/min (>60); Est Glom Filt Rate - Afr Amer 126 mL/min (>60); Estimated Creatinine Clearance 111.16 ml/min; Glucose 169 mg/dL (74-106); Potassium 3.7 mmol/L (3.5-5.1); Sodium Level 142 mmol/L (136-145)
[2019-07-20] MEDS: Insulin Lispro 100 UNIT/ML INSULN.PEN SC ×2 (06:43→11:14)
[2019-07-20 06:56] LABS: Bedside Glucose 163 mg/dL (70-110)
[2019-07-20] MEDS: Acetaminophen 325 MG Tablet 650 MG PO (07:32)
[2019-07-20 07:34] VITALS: BP 148/68; PULSE 87; RESP 18; TEMP 36.4; O2SAT 92
[2019-07-20 07:37] VITALS: PULSE 70
--- NOTE | 2019-07-20 07:45 | DCINST_ITS ---
Weight Bearing Status: Partial weight bearing - Ok to put weight on left heel, but no weight on toes or ball of foot Keep extremity elevated above heart level: Left Leg - Keep left foot elevated at all times Call your doctor if your incision/area has: Continuous Slow Oozing, Sudden Increased Bleeding, Foul Smelling Discharge Call your doctor if you observe: Fever of 101 or Higher, Uncontrolled pain Cleanse incision/area with: - - Left foot dressing: Leave dressing clean, dry and intact until Wednesday, then change dressing daily. Apply betadine solution to incision site with overlying gauze and ismael dressing. Change daily starting on Wednesday. Allergies/Adverse Reactions: Allergies ketorolac [From Toradol] Adverse Reaction (Verified 07/17/19 08:44) Upset Stomach NSAIDS (Non-Steroidal Anti-Inflamma Adverse Reaction (Verified 07/17/19 08:44) Upset Stomach Medications to take at Discharge acetaminophen 500 mg tablet 500 mg PO Q6H #90 tab 02/07/19 blood sugar diagnostic 1 strip MISCELLANEOUS .MEDSUPPLY #100 ea 02/07/19 lisinopril 40 mg tablet 40 mg PO DAILY #90 tab 02/07/19 metformin 1,000 mg tablet 1,000 mg PO BID #180 tab 02/07/19 hydrocortisone 2.5 % topical cream 1 applic TOPICAL BID #30 g 02/22/19 metoprolol succinate 25 mg tablet,extended release 24 hr 25 mg PO DAILY #90 tab 02/22/19 dulaglutide 1.5 mg/0.5 mL subcutaneous pen injector 1.5 mg SC QWEEK #6 ml 03/28/19 alcohol swabs 4 pad TOPICAL DAILY #4000 ea 04/25/19 lancets 28 gauge 28 gauge MISCELLANEOUS .MEDSUPPLY #100 ea 05/19/19 hydrochlorothiazide 12.5 mg tablet 12.5 mg PO DAILY #90 tab 06/02/19 tramadol 50 mg tablet 50 mg PO Q12H PRN #14 tab 06/27/19 Primary Care Physician: Gavin Raymundo MD [Primary Care Provider] - Test Results: Test results from this visit will be discussed in further detail at your follow- up appointment, if applicable. Please Follow Up With: Jesus Ramos DPM When: 1 week, sooner if needed
--- NOTE | 2019-07-20 09:29 | NURSING ---
wound photo: left foot
[2019-07-20] MEDS: Amox/Clavulanate 875 MG Tablet PO (10:23)
[2019-07-20 10:27] VITALS: BP 154/74; PULSE 82
[2019-07-20] MEDS: Lisinopril 40 MG Tablet PO (10:27)
[2019-07-20] MEDS: Metoprolol(XL)Succ 25 MG Tablet PO (10:27)
[2019-07-20] MEDS: hydroCHLOROthiazide 12.5mg 12.5 MG PO (10:27)
[2019-07-20] MEDS: Enoxaparin 40 MG/0.4 ML Syringe SC (10:27)
--- NOTE | 2019-07-20 10:36 | PN.ID_ITS ---
Patient Problems: Active and Suspected Problems (Last Reviewed 06/02/19 @ 10:27 by Chen Ward) Cellulitis of foot, left (Acute) Sepsis (Acute) Hyperglycemia due to type 2 diabetes mellitus (Acute) Sinus tachycardia seen on satellite project site monitor (Acute) Subjective: Feeling ok, no fever, no n/v/d. - Physical Exam Vitals/I&O's: Vital Signs Temp Pulse Resp BP Pulse Ox 97.6 F L 82 18 154/74 H 92 07/20/19 07:34 07/20/19 10:27 07/20/19 07:34 07/20/19 10:27 07/20/19 07:34 Oxygen Delivery Method Room Air Weight: 178.8 kg Body Mass Index (BMI) 55.1 Finger Stick Blood Glucose 154 Intake and Output for Last 24 Hours 07/18/19 07/19/19 07/20/19 23:59 23:59 23:59 Intake Total 3406.75 / 3406.75 3566.08 / 3566.08 2608.33 / 2608.33 Output Total 300 / 300 Balance 3106.75 / 3106.75 3566.08 / 3566.08 2608.33 / 2608.33 General: Alert, Cooperative, No apparent distress Lungs: Clear to auscultation, Normal air movement Cardiovascular: Regular rate, Regular Rhythm Abdomen: Soft, Non Tender, Non-Distended Skin: Ulcer/ Wound - foot wrapped Microbiology Past 72 Hours 07/18/19 12:20 Tissue - Toe Gram Stain - Final 07/18/19 12:20 Tissue - Toe Wound Culture - Preliminary Gram positive organism 07/18/19 12:20 Tissue - Toe Anaerobic Culture - Preliminary Checking for anaerobes, further studies to follow. 07/18/19 13:00 Tissue - Toe Gram Stain - Final 07/18/19 13:00 Tissue - Toe Wound Culture - Preliminary Gram positive organism 07/18/19 13:00 Tissue - Toe Anaerobic Culture - Preliminary Checking for anaerobes, further studies to follow. 07/17/19 15:45 Wound - Left Foot Gram Stain - Final 07/17/19 15:45 Wound - Left Foot Wound Culture - Preliminary Staphylococcus simulans Gram positive carlos 07/17/19 09:59 Blood Culture (Wb) - Right Hand Blood Culture - Preliminary No growth in 48 hours. 07/17/19 09:49 Blood Culture (Wb) - Anticubital Left Blood Culture - Preliminary No growth in 48 hours. Laboratory Results 07/19/19 10:54: POC Glucose 238 H 07/19/19 16:11: POC Glucose 169 H 07/19/19 22:19: POC Glucose 203 H 07/20/19 05:26: WBC 7.3, RBC 4.90, Hgb 13.2, Hct 42.1, MCV 85.9, MCH 26.9 L, MCHC 31.4 L, RDW Std Deviation 41.8, RDW Coeff of Maria Fernanda 13.2, Plt Count 169, MPV 11.2, Immature Gran % (Auto) 2.100 H, Neut % (Auto) 68.0, Lymph % (Auto) 19.1, Benson % (Auto) 7.2, Eos % (Auto) 3.0, Baso % (Auto) 0.6, Absolute Neuts (auto) 5.0, Absolute Lymphs (auto) 1.39, Nucleated RBC % 0 07/20/19 05:26: Sodium 142, Potassium 3.7, Chloride 105, Carbon Dioxide 31.0, Anion Gap 6, BUN 10, Creatinine 0.83, Estim Creat Clear Calc 111.16, Est GFR (MDRD) Af Amer 126, Est GFR (MDRD) Non-Af 104, BUN/Creatinine Ratio 12.0, Glucose 169 H, Calcium 8.8 07/20/19 06:40: POC Glucose 163 H Current Medications Acetaminophen (Tylenol) 650 mg PO Q6H PRN PRN PRN Reason: Pain Score 1-10/Temp > 100.7 F Last Admin: 07/20/19 07:32 Dose: 650 mg Documented by: Amoxicillin/Clavulanate Potassium (Augmentin Tablet) 875 mg PO BID [facility] Last Admin: 07/20/19 10:23 Dose: 875 mg Documented by: Enoxaparin Sodium (Lovenox) 40 mg SC DAILY [facility] Last Admin: 07/20/19 10:27 Dose: 40 mg Documented by: Glucagon () 1 mg IM .X1 PRN PRN Reason: Hypoglycemia Hydrochlorothiazide () 12.5 mg PO DAILY [facility] Last Admin: 07/20/19 10:27 Dose: 12.5 mg Documented by: Sodium Chloride () 250 mls @ 15 mls/hr IV .[id number] PRN PRN Reason: Saline Flush Last Infusion: 07/19/19 06:39 Dose: 0 mls/hr Documented by: Dextrose (Dextrose 10%-Water) 250 mls @ 999 mls/hr IV .Q16M PRN; Protocol PRN Reason: HYPOGLYCEMIA Lactated Ringer's () 1,000 mls @ 100 mls/hr IV .Q10H [facility] Last Admin: 07/20/19 05:57 Dose: 100 mls/hr Documented by: Insulin Glargine (Lantus (Bk)) 10 units SC QHS [facility] Last Admin: 07/19/19 22:25 Dose: 10 u Documented by: Insulin Human Lispro (Humalog Kwikpen ([facility])) 0 unit SC ACHS [facility]; Protocol Last Admin: 07/20/19 06:43 Dose: 2 u Documented by: Lisinopril (Zestril) 40 mg PO DAILY [facility] Last Admin: 07/20/19 10:27 Dose: 40 mg Documented by: Metoprolol Succinate (Toprol Xl (Beta Valente)) 25 mg PO DAILY [facility] Last Admin: 07/20/19 10:27 Dose: 25 mg Documented by: Morphine Sulfate () 2 mg IV Q6H PRN PRN PRN Reason: Pain Score 7-10/10 Last Admin: 07/18/19 21:41 Dose: 2 mg Documented by: Oxycodone HCl (Oxyir) 5 mg PO Q4H PRN PRN PRN Reason: Pain Score 4-6/10 Last Admin: 07/20/19 06:46 Dose: 5 mg Documented by: Sodium Chloride () 10 - 40 ml IV UD PRN PRN Reason: SALINE FLUSH Last Admin: 07/19/19 10:58 Dose: 20 ml Documented by: Medical Necessity - Tobacco Use Smoking Status: Current every day smoker Tobacco Use: Cigarettes Route of nutrition/ use of supplements: [] Nutritional Intake: [] IV Site: [] Faulkner Catheter: [] - Assessment/Plan Antibiotics: [] Assessment/Plan: [] Active and Suspected Problems (Last Reviewed 06/02/19 @ 10:27 by Chen Ward) Cellulitis of foot, left (Acute) Sepsis (Acute) Hyperglycemia due to type 2 diabetes mellitus (Acute) Sinus tachycardia seen on satellite project site monitor (Acute) sepsis due to L 5th toe gangrene with uncontrolled DM - On vanc/zosyn. S/p OR 07/18/19. Staph aureus pcr neg. Wbc now normalized. Cxs with MS-staph simulans and GPR. Clearance cx also with GPC. Ok for home today on 4 weeks of po augmentin now that he has had good source control. ID followup with me in 2 weeks at wound center. Will follow cxs. Will follow, d/w Dr. Villavicencio.
[2019-07-20 11:06] LABS: Bedside Glucose 182 mg/dL (70-110)
--- NOTE | 2019-07-20 11:31 | PCM.DC ---
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 frame tender (Acute) You will use the following diet at home:: Calorie/Carbohydrate Controlled (specify 1200, 1400, etc) - 1800 Your food should be the consistency of: Regular Your liquids should be the consistency of: Regular/Thin Discharge Activity: Return to Normal Activity Weight Bearing Status: Partial weight bearing - Ok to put weight on left heel, but no weight on toes or ball of foot Keep extremity elevated above heart level: Left Leg - Keep left foot elevated at all times Call your doctor if your incision/area has: Continuous Slow Oozing, Sudden Increased Bleeding, Foul Smelling Discharge Call your doctor if you observe: Fever of 101 or Higher, Shortness of breath, Dizziness, Fainting spells, Swelling in the ankles, Chest pain, Increased palpitations (irregular heartbeat), Uncontrolled pain Cleanse incision/area with: - - Left foot dressing: Leave dressing clean, dry and intact until Wednesday, then change dressing daily. Apply betadine solution to incision site with overlying gauze and ismael dressing. Change daily starting on Wednesday. Allergies/Adverse Reactions: Allergies ketorolac [From Toradol] Adverse Reaction (Verified 07/17/19 08:44) Upset Stomach NSAIDS (Non-Steroidal Anti-Inflamma Adverse Reaction (Verified 07/17/19 08:44) Upset Stomach Medications to take at Discharge acetaminophen 500 mg tablet 500 mg PO Q6H #90 tab 02/07/19 blood sugar diagnostic 1 strip MISCELLANEOUS .MEDSUPPLY #100 ea 02/07/19 lisinopril 40 mg tablet 40 mg PO DAILY #90 tab 02/07/19 metformin 1,000 mg tablet 1,000 mg PO BID #180 tab 02/07/19 hydrocortisone 2.5 % topical cream 1 applic TOPICAL BID #30 g 02/22/19 metoprolol succinate 25 mg tablet,extended release 24 hr 25 mg PO DAILY #90 tab 02/22/19 dulaglutide 1.5 mg/0.5 mL subcutaneous pen injector 1.5 mg SC QWEEK #6 ml 03/28/19 alcohol swabs 4 pad TOPICAL DAILY #4000 ea 04/25/19 lancets 28 gauge 28 gauge MISCELLANEOUS .MEDSUPPLY #100 ea 05/19/19 hydrochlorothiazide 12.5 mg tablet 12.5 mg PO DAILY #90 tab 06/02/19 tramadol 50 mg tablet 50 mg PO Q12H PRN #14 tab 06/27/19 Amox/Clavulanate Tablet [Augmentin Tablet] 875 mg PO BID #56 tab 07/20/19 Oxycodone [Oxyir] 5 mg PO Q4H PRN PRN 3 Days #10 tablet 07/20/19 The following prescriptions were given: Amox/Clavulanate Tablet [Augmentin Tablet] 875 mg PO BID #56 tab Transmission Status: Received by [id number] Oxycodone [Oxyir] 5 mg PO Q4H PRN PRN 3 Days #10 tablet PRN Reason: Pain Score 4-6/10 Transmission Status: Received by [id number] Primary Care Physician: Gavin Raymundo MD [Primary Care Provider] - Please follow up with your Primary Care Physician in: 3-5 days Test Results: Test results from this visit will be discussed in further detail at your follow-up appointment, if applicable. Please Follow Up With: Jesus Ramos DPM When: 1 week, sooner if needed Please Follow Up With: Stoney Soto MD - At wound center When: 2 weeks
--- NOTE | 2019-07-20 11:36 | PCM.DC.SUM ---
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 seen on glass artist (Acute) - Secondary Discharge Diagnosis Chronic Problems (Last Reviewed 06/02/19 @ 10:27 by Chen Ward) Dry skin dermatitis (Chronic) Thrombocytopenia (Chronic) Sleep apnea (Chronic) Osteoarthritis (Chronic) Bilateral lower extremity edema (Chronic) Type 2 diabetes mellitus (Chronic) History of esophageal disorder (Chronic) Hypertension (Chronic) Hospital Course and Treatment Imaging Results: Left Foot XR: IMPRESSION: Diffuse soft tissue swelling Arterial Study: Procedure A bilateral lower extremity continuous wave Doppler with analog waveform analysis,segmental pressures,and ankle brachial indexes without exercise. Left Segmental Pressures Left brachial= 146mmHg. Left posterior tibial artery = 191mmHg. The left posterior tibial artery waveforms are triphasic. Right Segmental Pressures Right brachial= 149mmHg. Right posterior tibial artery = 185mmHg. Right dorsalis pedis artery = 184mmHg. Right digit = 136 mmHg. The right dorsalis pedis waveforms are triphasic. The right posterior tibial artery waveforms are triphasic. Indices The right ankle brachial index by the dorsalis pedis is 1.23. The right ankle brachial index by the posterior tibial artery is 1.24. The right digital-brachial index is 0.91. The left ankle brachial index by the posterior tibial artery is 1.28. Interpretation Summary Triphasic Doppler waveforms are noted at ankle level bilaterally. Pulse-volume recordings appear satisfactory at calf, ankle, and digital levels bilaterally. Resting ankle-brachial indices are normal bilaterally. The right digital-brachial index is normal. The left digital-brachial index was not determined. Arterial flow appears normal at ankle level bilaterally, and at digital level on the right. Arterial flow at digital level on the left was not fully assessed. Clinical correlation is advised. 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 Left 5th toe bone sent to microbiology. 2. Left 5th toe sent to pathology. 3. Clearance fragment left 5th metatarsal sent to microbiology and pathology Estimated Blood Loss (mL): 1mL Consultations 07/17/19 11:18 Consult: Onc/Wound/landscape engineer Routine Comment: Reason for Consult:: Left toe Podiatry ID Operations: - - Left toe amputation Procedures: None Summary of Care Provided: Per HPI: The patient is a 49 year old M with a PMH as below who presents with left lower extremity cellulitis. He states that he was feeling fine today however he got up to take shower and when he looked down into the tub he noticed blood coming from his toe. That is when he decided to come into the hospital, prior to this morning he did not notice any issues with his lower extremity. On evaluation he was found to have a leukocytosis though he was afebrile. He also was found to have cellulitis and a swollen left pinky toe. He denies any significant lower extremity pain but he does have a history of diabetes and neuropathy, with decreased sensation. Foot x-ray was negative for any bony destruction. He denies any shortness of breath, chest pain, lightheadedness, dizziness. Hospital Course: 1. Sepsis secondary to left lower extremity cellulitis with gangrenous left pinky toe status post amputation 07/18/2019/chronic venous stasis [id number] morbidly obese male with diabetes presents with left lower extremity cellulitis. He states he noticed it when he was taking a shower and he looked down and there was blood coming from his foot. He was having any significant pain prior to surgery. However he did have some pain postoperatively that the Ultram that he is normally on was not helping with. He obtained decent pain control with oxycodone and he was discharged with 10 tablets in the need to follow-up with both podiatry as well as his primary care physician in the next week. He underwent amputation and because of a good source control and initial culture data with Staphylococcus simulans that was pansensitive, infectious disease felt that he would be able to be discharged today on 4 weeks of p.o. Augmentin and follow-up with infectious disease in 2 weeks. He did have vascular studies which were grossly unremarkable however the left lower extremity study could not be completed because of the bandaging around his foot. I did discuss with him the need for weight loss and lifestyle modifications because of his morbid obesity. I discussed the plan with him in terms of discharge today on the risks and benefits of going home. He did express understanding. 2. 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 (Acute) - Physical Exam Vitals/I&O's: Vital Signs Temp Pulse Resp BP Pulse Ox 97.6 F L 82 18 154/74 H 92 07/20/19 07:34 07/20/19 10:27 07/20/19 07:34 07/20/19 10:27 07/20/19 07:34 Oxygen Delivery Method Room Air Weight: 394 lb 2.984 oz Body Mass Index (BMI) 55.1 Finger Stick Blood Glucose 154 Intake and Output for Last 24 Hours 07/18/19 07/19/19 07/20/19 23:59 23:59 23:59 Intake Total 3406.75 / 3406.75 3566.08 / 3566.08 2608.33 / 2608.33 Output Total 300 / 300 Balance 3106.75 / 3106.75 3566.08 / 3566.08 2608.33 / 2608.33 General: Alert, Oriented x3, Cooperative, No apparent distress HEENT: Atraumatic, PERRLA, EOMI, Normocephalic Oral: Moist Mucosa Neck: Supple, No JVD Lungs: Clear to auscultation, Normal air movement, No rhonchi, No wheeze, No rales, Diminished Cardiovascular: Regular rate, Regular Rhythm, Normal S1, Normal S2, No murmurs Abdomen: Soft, Non Tender, Non-Distended, No Hepato-splenomegaly, Obese Extremities: Edema 2+ non-pitting, - -s/p amputation of left pinky toe, dressing is CDI Skin: No rashes, No breakdown Neurological: Neuro grossly intact, Sensory exam intact to light touch and pain Psych/Mental Status: Normal Affect, Appropriate Microbiology Past 72 Hours 07/18/19 12:20 Tissue - Toe Gram Stain - Final 07/18/19 12:20 Tissue - Toe Wound Culture - Preliminary Gram positive organism 07/18/19 12:20 Tissue - Toe Anaerobic Culture - Preliminary Checking for anaerobes, further studies to follow. 07/18/19 13:00 Tissue - Toe Gram Stain - Final 07/18/19 13:00 Tissue - Toe Wound Culture - Preliminary Gram positive organism 07/18/19 13:00 Tissue - Toe Anaerobic Culture - Preliminary Checking for anaerobes, further studies to follow. 07/17/19 15:45 Wound - Left Foot Gram Stain - Final 07/17/19 15:45 Wound - Left Foot Wound Culture - Preliminary Staphylococcus simulans Gram positive carlos 07/17/19 09:59 Blood Culture (Wb) - Right Hand Blood Culture - Preliminary No growth in 48 hours. 07/17/19 09:49 Blood Culture (Wb) - Anticubital Left Blood Culture - Preliminary No growth in 48 hours. Laboratory Results 07/19/19 16:11: POC Glucose 169 H 07/19/19 22:19: POC Glucose 203 H 07/20/19 05:26: WBC 7.3, RBC 4.90, Hgb 13.2, Hct 42.1, MCV 85.9, MCH 26.9 L, MCHC 31.4 L, RDW Std Deviation 41.8, RDW Coeff of Maria Fernanda 13.2, Plt Count 169, MPV 11.2, Immature Gran % (Auto) 2.100 H, Neut % (Auto) 68.0, Lymph % (Auto) 19.1, [place] % (Auto) 7.2, Eos % (Auto) 3.0, Baso % (Auto) 0.6, Absolute Neuts (auto) 5.0, Absolute Lymphs (auto) 1.39, Nucleated RBC % 0 07/20/19 05:26: Sodium 142, Potassium 3.7, Chloride 105, Carbon Dioxide 31.0, Anion Gap 6, BUN 10, Creatinine 0.83, Estim Creat Clear Calc 111.16, Est GFR (MDRD) Af Amer 126, Est GFR (MDRD) Non-Af 104, BUN/Creatinine Ratio 12.0, Glucose 169 H, Calcium 8.8 07/20/19 06:40: POC Glucose 163 H 07/20/19 10:54: POC Glucose 182 H Current Medications Acetaminophen (Tylenol) 650 mg PO Q6H PRN PRN PRN Reason: Pain Score 1-10/Temp > 100.7 F Last Admin: 07/20/19 07:32 Dose: 650 mg Documented by: Amoxicillin/Clavulanate Potassium (Augmentin Tablet) 875 mg PO BID [facility] Last Admin: 07/20/19 10:23 Dose: 875 mg Documented by: Enoxaparin Sodium (Lovenox) 40 mg SC DAILY [facility] Last Admin: 07/20/19 10:27 Dose: 40 mg Documented by: Glucagon () 1 mg IM .X1 PRN PRN Reason: Hypoglycemia Hydrochlorothiazide () 12.5 mg PO DAILY [facility] Last Admin: 07/20/19 10:27 Dose: 12.5 mg Documented by: Sodium Chloride () 250 mls @ 15 mls/hr IV .[id number] PRN PRN Reason: Saline Flush Last Infusion: 07/19/19 06:39 Dose: 0 mls/hr Documented by: Dextrose (Dextrose 10%-Water) 250 mls @ 999 mls/hr IV .Q16M PRN; Protocol PRN Reason: HYPOGLYCEMIA Lactated Ringer's () 1,000 mls @ 100 mls/hr IV .Q10H [facility] Last Admin: 07/20/19 05:57 Dose: 100 mls/hr Documented by: Insulin Glargine (Lantus (Bkc)) 10 units SC QHS [facility] Last Admin: 07/19/19 22:25 Dose: 10 u Documented by: Insulin Human Lispro (Humalog Kwikpen (Bk)) 0 unit SC ACHS [facility]; Protocol Last Admin: 07/20/19 11:14 Dose: 2 u Documented by: Lisinopril (Zestril) 40 mg PO DAILY [facility] Last Admin: 07/20/19 10:27 Dose: 40 mg Documented by: Metoprolol Succinate (Toprol Xl (Beta Valente)) 25 mg PO DAILY [facility] Last Admin: 07/20/19 10:27 Dose: 25 mg Documented by: Morphine Sulfate () 2 mg IV Q6H PRN PRN PRN Reason: Pain Score 7-10/10 Last Admin: 07/18/19 21:41 Dose: 2 mg Documented by: Oxycodone HCl (Oxyir) 5 mg PO Q4H PRN PRN PRN Reason: Pain Score 4-6/10 Last Admin: 07/20/19 11:14 Dose: 5 mg Documented by: Sodium Chloride () 10 - 40 ml IV UD PRN PRN Reason: SALINE FLUSH Last Admin: 07/19/19 10:58 Dose: 20 ml Documented by: Discharge Activity: Return to Normal Activity Weight Bearing Status: Partial weight bearing - Ok to put weight on left heel, but no weight on toes or ball of foot Keep extremity elevated above heart level: Left Leg - Keep left foot elevated at all times Call your doctor if your incision/area has: Continuous Slow Oozing, Sudden Increased Bleeding, Foul Smelling Discharge Call your doctor if you observe: Fever of 101 or Higher, Shortness of breath, Dizziness, Fainting spells, Swelling in the ankles, Chest pain, Increased palpitations (irregular heartbeat), Uncontrolled pain Cleanse incision/area with: - - Left foot dressing: Leave dressing clean, dry and intact until Wednesday, then change dressing daily. Apply betadine solution to incision site with overlying gauze and ismael dressing. Change daily starting on Wednesday. Home Medications: Medications to take at Discharge acetaminophen 500 mg tablet 500 mg PO Q6H #90 tab 02/07/19 blood sugar diagnostic 1 strip MISCELLANEOUS .MEDSUPPLY #100 ea 02/07/19 lisinopril 40 mg tablet 40 mg PO DAILY #90 tab 02/07/19 metformin 1,000 mg tablet 1,000 mg PO BID #180 tab 02/07/19 hydrocortisone 2.5 % topical cream 1 applic TOPICAL BID #30 g 02/22/19 metoprolol succinate 25 mg tablet,extended release 24 hr 25 mg PO DAILY #90 tab 02/22/19 dulaglutide 1.5 mg/0.5 mL subcutaneous pen injector 1.5 mg SC QWEEK #6 ml 03/28/19 alcohol swabs 4 pad TOPICAL DAILY #4000 ea 04/25/19 lancets 28 gauge 28 gauge MISCELLANEOUS .MEDSUPPLY #100 ea 05/19/19 hydrochlorothiazide 12.5 mg tablet 12.5 mg PO DAILY #90 tab 06/02/19 tramadol 50 mg tablet 50 mg PO Q12H PRN #14 tab 06/27/19 Amox/Clavulanate Tablet [Augmentin Tablet] 875 mg PO BID #56 tab 07/20/19 Oxycodone [Oxyir] 5 mg PO Q4H PRN PRN 3 Days #10 tablet 07/20/19 Following Prescrptions Were Given to Patient: Amox/Clavulanate Tablet [Augmentin Tablet] 875 mg PO BID #56 tab Transmission Status: Received by [facility]/pharmacy #[id number] Oxycodone [Oxyir] 5 mg PO Q4H PRN PRN 3 Days #10 tablet PRN Reason: Pain Score 4-6/10 Transmission Status: Received by [facility]/pharmacy #[id number] Primary Care Physician: Gavin Raymundo MD [Primary Care Provider] - Please follow up with your Primary Care Physician in: 3-5 days Please Follow Up With: Jesus Ramos DPM When: 1 week, sooner if needed Please Follow Up With: Stoney Soto MD - At wound center When: 2 weeks Disposition: Home Minutes spent on discharge:: 35 Patient Condition:: Stable Medical Necessity - Tobacco Use Smoking Status: Current every day smoker Tobacco Use: Cigarettes Meaningful Use Info Meaningful Use Diagnoses (Choose all that apply): None applicable Code Visit Inpatient E&M: 95818 Disch Hosp
--- NOTE | 2019-07-20 12:00 | CASEMGMT ---
ASHLEY PAZ in to discuss discharge needs with patient. Patient states that his sister will be helping with dressing changes. ASHLEY PAZ explained to patient that HHC may come once per week to see patient if he would like HHC. Patient states his sister will help him with wound care and he will follow-up with podiatry and PCP. Patient states he checks his BS regularly. ASHLEY PAZ inquired about walker for patient. Patient states sister obtained walker for him. Patient denies further needs at this time.
--- NOTE | 2019-07-21 13:24 | CASEMGMT ---
Addendum entered by Bella Conley 07/21/19 13:44: Lace/Strata: 06/14 Original Note: Case Management DC F/u Call: DC Date: 07/20/2019 DC Diagnosis: Cellulitis of foot, left (Acute), Sepsis (Acute), Hyperglycemia due to type 2 diabetes mellitus (Acute), Sinus tachycardia seen on hospital monitor (Acute) DC Disposition: Home Lace/Strata: 05/14 Called patient on cell phone listed on demographics, patient answered, introduced self and role. Patient states he is doing good, confirmed filled his DC medications. Denies any questions, concerns, or issues with [facility]CI, medications, or f/u. Patient scheduled f/u appointment with Dr Raymundo 07/24/2019 at 0930, Dr Richard DPM on 07/27/2019 at 0945. Thanked patient for receiving care here at [facility] and ended conversation. Shannon Conley RNCM
== END 2019-07-20 13:55 | disposition home or self-care (01) | DRG 710 ==
LOC: ED 10:06 → MS3 10:23
PROVIDERS: Anesthesiology; Podiatrist; Admitting Provider Family Medicine; Emergency Provider Emergency Medicine; Family Provider Internal Medicine; PCP Internal Medicine; Referring Provider Family Medicine; Visit Provider Family Medicine
PROC: 0Y6Y0Z0 Detachment at Left 5th Toe, Complete, Open Approach (ICD-10-PCS; principal; 2019-07-18 08:40)
DX: A41.9 Sepsis, unspecified organism (principal); L03.116 Cellulitis of left lower limb; Z68.43 Body mass index [BMI] 50.0-59.9, adult; I10 Essential (primary) hypertension; E11.42 Type 2 diabetes mellitus with diabetic polyneuropathy; E11.65 Type 2 diabetes mellitus with hyperglycemia; E11.69 Type 2 diabetes mellitus with other specified complication; E11.52 Type 2 diabetes mellitus with diabetic peripheral angiopathy with gangrene; F17.210 Nicotine dependence, cigarettes, uncomplicated; E66.01 Morbid (severe) obesity due to excess calories; L02.612 Cutaneous abscess of left foot; M86.8X7 Other osteomyelitis, ankle and foot; L85.3 Xerosis cutis; M19.90 Unspecified osteoarthritis, unspecified site; G47.30 Sleep apnea, unspecified; B95.7 Other staphylococcus as the cause of diseases classified elsewhere; Z79.84 Long term (current) use of oral hypoglycemic drugs
CPT/HCPCS: 36415; 73630; 80048; 80053; 80202; 82962; 83036; 83605; 85025; 85652; 87015; 87040; 87070; 87075; 87077; 87102; 87116; 87176; 87186; 87205; 87206; 87640; 88304; 88305; 88311; 93005; 93923; 97802; 99284; 99406; J7030; J7040; J7050; J7120; A4216; J2405

== ENCOUNTER 2019-07-31 11:51 | Emergency (ER) | payer MEDICAID, SELFPAY ==
[2019-07-24 09:31] VITALS: BMI 55.1
[2019-07-31 11:52] VITALS: BP 185/99; PULSE 103; RESP 17; TEMP 36.8; O2SAT 96; BMI 50.9
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
[2019-07-31 12:53] VITALS: BP 179/105; PULSE 101; RESP 16; O2SAT 98
== END 2019-07-31 12:53 | disposition home or self-care (01) ==
PROVIDERS: Emergency Provider Emergency Medicine; PCP Internal Medicine
DX: S50.11XA Contusion of right forearm, initial encounter (principal); V43.62XA Car passenger injured in collision with other type car in traffic accident, initial encounter; Y93.9 Activity, unspecified; Y92.410 Unspecified street and highway as the place of occurrence of the external cause; Y99.9 Unspecified external cause status; E11.9 Type 2 diabetes mellitus without complications; I10 Essential (primary) hypertension
CPT/HCPCS: 99282

== ENCOUNTER → 2019-09-12 | Outpatient (CLI) | payer MEDICAID, SELFPAY ==
[2019-09-05 14:49] VITALS: BMI 50.9
== END | disposition home or self-care (01) ==
PROVIDERS: PCP Internal Medicine; Referring Provider Podiatrist; Visit Provider Podiatrist
DX: L02.612 Cutaneous abscess of left foot (principal)
CPT/HCPCS: 87070; 87077; 87186; 87205

== ENCOUNTER 2019-09-18 08:39 | Day surgery (SDC) | payer MEDICAID, SELFPAY ==
[2019-08-04 13:23] VITALS: BMI 50.9
[2019-09-12 14:32] LABS: ALB/GLOB Ratio 0.8 RATIO (0.9-2.4); AST(SGOT) 12 U/L (15-37); Alanine Aminotransfer ALT/SGPT 27 U/L (16-61); Albumin, Serum 3.3 g/dL (3.2-5.0); Alkaline Phosphatase 60 U/L (45-117); Anion Gap 2 (5-15); BUN 10 mg/dL (7-18); BUN/Creat Ratio 11.2 RATIO (10-20); Calcium,Total 9.1 mg/dL (8.5-10.1); Chloride 102 mmol/L (98-107); Creatinine, Serum 0.89 mg/dL (0.70-1.30); EST Glomerular Filtration Rate 96 mL/min (>60); Est Glom Filt Rate - Afr Amer 116 mL/min (>60); Globulin 3.9 g/dL (2.2-4.2); Glucose 225 mg/dL (74-106); Potassium 4.2 mmol/L (3.5-5.1); Protein, Total 7.2 g/dL (6.4-8.2); Sodium Level 136 mmol/L (136-145)
[2019-09-13 15:16] LABS: Hemoglobin 15.7 g/dL (13.0-16.5); Red Blood Count 5.56 M/mm3 (4.6-6.2); White Blood Count 11.8 K/mm3 (4.4-11.0)
[2019-09-13 15:17] LABS: Hematocrit 47.9 % (40-54); Mean Corp Hgb Conc 32.8 g/dL (32-36); Mean Corpuscular Hgb 28.2 pg (27.0-32.0); Mean Corpuscular Volume 86.2 fL (80-94); Platelet Count 104 K/mm3 (150-450); RBC Distribution Width CV 13.9 % (11.6-14.6); RBC Distribution Width SD 43.1 fl (35.1-43.9)
[2019-09-13 15:18] LABS: Eosinophils% 1.4 % (0-5); Lymphocyte % 12.5 % (19-41); Monocyte% 5.6 % (0-10); Neutrophil % 78.6 % (47-70)
[2019-09-13 15:19] LABS: Absolute Neutrophil Count 9.3 X10^3/uL (2.0-7.7); Basophil% 0.6 % (0-1)
[2019-09-13 15:20] LABS: Absolute Lymphocyte Count 1.48 X10^3/uL (0.83-4.51); Basophil# 0.07 X10^3/uL; Eosinophil# 0.17 X10^3/uL; Lymphocyte # 1.48 X10^3/ul (4.0); Monocyte# 0.66 X10^3/uL; NRBC Flagged by Analyzer 0 % (0-5)
[2019-09-14 13:37] VITALS: BMI 50.9
[2019-09-18] VITALS (8 sets, daily range): BP systolic 120–145; BP diastolic 71–95; PULSE 92–100; RESP 18; TEMP 36.4–37.2; O2SAT 92–98; BMI 55.8
--- NOTE | 2019-09-18 09:15 | RAD_ITS ---
STUDY: X-RAY - LEFT FOOT CLINICAL: Male, 49 years old. REMOVAL FB LEFT FOOT IN SURGERY. TECHNIQUE: 2 view(s) of the foot. COMPARISON: 07/18/2019 FINDINGS: 2 intraoperative images demonstrate amputation of the fifth digit. No radiodense foreign body is visible. RAD/Foot 2 Views IMPRESSION: Intraoperative images. Electronically Signed: Charles Liriano MD at 11:56 EDT Tel , Service support ,
[2019-09-18] MEDS: Lactated Ringers 1,000 ML 100 ML IV (09:20)
[2019-09-18 09:36] LABS: Bedside Glucose 160 mg/dL (70-110)
--- NOTE | 2019-09-18 09:47 | DCINST_ITS ---
Discharge Diet: Light diet - advance as tolerated Discharge Activity: May Not Drive Weight Bearing Status: Partial weight bearing - Limit weightbearing on left foot, No weight bearing Keep extremity elevated above heart level: Left Leg - Keep left foot elevated as much as possible Call your doctor if your incision/area has: Continuous Slow Oozing, Sudden Increased Bleeding, Foul Smelling Discharge Call your doctor if you observe: Fever of 101 or Higher, Shortness of breath, Chest pain, Calf discomfort, Uncontrolled pain Cleanse incision/area with: Do not get Incision Wet, Keep Dressing Clean & Dry, - - Keep dressing clean, dry and intact for 3 days, then change dressing daily - paint site with betadine solution and apply gauze dressing - change daily starting on . Allergies/Adverse Reactions: Allergies ketorolac [From Toradol] Adverse Reaction (Verified 09/13/19 14:57) Upset Stomach NSAIDS (Non-Steroidal Anti-Inflamma Adverse Reaction (Verified 09/13/19 14:57) Upset Stomach Medications to take at Discharge blood sugar diagnostic 1 strip MISCELLANEOUS .MEDSUPPLY #100 ea 02/07/19 lisinopril 40 mg tablet 40 mg PO DAILY #90 tab 02/07/19 metformin 1,000 mg tablet 1,000 mg PO BID #180 tab 02/07/19 metoprolol succinate 25 mg tablet,extended release 24 hr 25 mg PO DAILY #90 tab 02/22/19 dulaglutide 1.5 mg/0.5 mL subcutaneous pen injector 1.5 mg SC QWEEK #6 ml 03/28/19 alcohol swabs 4 pad TOPICAL DAILY #4000 ea 04/25/19 hydrochlorothiazide 25 mg tablet 25 mg PO DAILY #90 tab 07/24/19 albuterol sulfate 90 mcg/actuation aerosol inhaler 1 - 2 puff INHALATION Q6H PRN #8.5 g 08/04/19 lancets 28 gauge See Rx Instructions .ROUTE .COMPLEX #100 unspecified 09/01/19 amlodipine 10 mg tablet 10 mg PO DAILY #90 tab 09/05/19 glimepiride 4 mg tablet 4 mg PO QAM #90 tab 09/05/19 hydrocortisone 2.5 % topical cream 1 applic TOPICAL BID #454 g 09/05/19 Acetaminophen 500 mg PO Q6H PRN 09/13/19 traMADol [Ultram] 50 mg PO Q8H PRN PRN 3 Days #10 tab 09/18/19 The following prescriptions were given: traMADol [Ultram] 50 mg PO Q8H PRN PRN 3 Days #10 tab PRN Reason: Pain Score 1-04/20 Transmission Status: Received by [facility]/pharmacy #[id number] Primary Care Physician: Gavin Raymundo MD [Primary Care Provider] - Test Results: Test results from this visit will be discussed in further detail at your follow- up appointment, if applicable. Please Follow Up With: Jesus Ramos DPM When: 1 week, sooner if needed
--- NOTE | 2019-09-18 09:50 | PCM.OPRPT ---
Report of Operation Date of Procedure: 09/18/19 Pre-Operative Diagnosis: Foreign body left foot Post-Operative Diagnosis: Same Surgery/Procedure Performed:: Removal of deep foreign body from left foot. Debridement of ulcer left foot down to fascia layer cloud solutions architect: yes - Dr. Ines Steiner Type of Anesthesia:: Local MAC Specimen's removed: Foreign body from left foot sent to pathology Description of Procedure: Indications: The patient is a 49 year old gentleman who has chronic ulcer to the 1st intermetatasal space and there is noted to be foreign body on xray of the left foot. We discussed the options with the patient, and patient elected to proceed with procedures.This was discussed in great detail, and ultimately patient elected to proceed with this procedure. Discussed and reviewed the possible benefits vs risks. Patient expressed understanding and agreement, and able to repeat back, all questions were answered. The consent form was reviewed and it was freely signed by the patient. No guaranties were given nor implied. Operative Procedure: The patient was brought into the operating room, and was place on the operating room table in the supine position. He was carefully secured to the operating room table with a safely belt around his waist. A time out was performed, the patient was properly identified and the surgical plan was confirmed. Patient was given 2 gram of IV Ancef for antibiotic prophylaxis. A well padded pneumatic tourniquet was placed around the left ankle. The patient received a total of 10mL of 0.5% Marcaine plain was given as a left foot block after the skin was cleansed with 70% isopropyl alcohol. The left foot was scrubbed, prepped and draped in the usual aseptic fashion. The left foot was exsanguinated using as Esmarch bandage, and the left ankle pneumatic tourniquet was inflated to 250mmHg. There was noted to be an ulceration dorsal 1st intermetatarsal space which probed to the fascia layer with some fibrotic tissue. The ulceration was debrided in excisional fashion using a 15 blade down to the fascia layer. The area of debridement was 0.8cm x 0.8cm and 1.5cm in depth. The ulceration was healthy and viable post debridement. The site was flushed out with copious amounts of normal saline solution. Intraoperative fluoroscopy was used and the foreign body was noted. Because the foreign body was in the plantar space a small incision was made to the plantar 1st intermetatasal space Careful dissection was completed through the subcutaneous tissue. The foreign body was identified on intraoperative fluoroscopy. Visualizing the foreign body it was removed in toto. It was consistent with a piece of glass to the deep plantar space (fascia/muscle layer). It was passed from the surgical site as specimen to go to pathology for further evaluation. The site was flushed out with copious amounts of normal saline solution. The remaining tissues were noted to be healthy and viable. The skin was reapproximated using 3-0 Nylon. The pneumatic tourniquet was deflated (total tourniquet time was 19 minutes), and there was immediate return of good vascular flow to the left foot, with normal temperature gradient and CFT < 2 seconds to all toes. A dressing was applied which consisted of adaptic, 4x4 gauze, kerlix, webril and and ismael dressing. Patient tolerated the above procedure well with no complications. He was transported from the operating room to the recovery room in good condition. Post operative orders placed. Post operating instructions were reviewed with patient. Keep left foot elevated, keep dressing left foot clean, dry and intact, and limit weightbearing left foot. He is to change dressing daily starting in 3 days - paint w/ Betadine solution and apply gauze dressing. Continue with Augmentin as culture was positive for strep. Xrays were obtained and confirmed removal of the foreign body with no complications. Patient to follow up in 1 week, sooner if needed. Grafts/Implants Used: None - Complications None
[2019-09-18] MEDS: Bupivacaine Mpf 0.5% 30 ML VIAL (09:53)
--- NOTE | 2019-09-18 10:30 | FORE_PTH ---
PATIENT: EUSEBIA HECTOR [place] [facility] [id number] AGE/SX: 49/M ROOM: RE09/18/[address]: Dr. Jesus Ramos DPM : 1970 BED: DIS: 09/18/2019 SPEC #: [id number] RECD: 09/18/19 12:59 STATUS: CHRISSY RELucrecia #: [id number] VALENTINA: 09/18/19 10:[address]: Jesus Ramos DEPT: SURGICAL PATHOLOGY RECD BY: Aaron Edwards ENTERED: 09/18/19 14:03 SP TYPE: FOREIGN B JAY DR: MD Soto Gaffney, RISK MANAGEMENT PROFESSIONAL-Shara Tissues: FOREIGN BODY Procedures: Surgery Specimen Level I HEADER OPERATION: Removal foreign body foot PRE-OP DIAGNOSIS: Foreign body TISSUE SUBMITTED: Foreign body left foot MICROSCOPIC DIAGNOSIS Foreign body of left foot, removal: Unremarkable fragment of glass (gross diagnosis only). AM:marely 09/19/19 MICROSCOPIC DESCRIPTION Slides are reviewed. GROSS DESCRIPTION Received is one container labeled with the patient's name and designated foreign body left foot. The specimen consists of an irregular fragment of clear glass measuring 0.3 x 0.2 x 0.1 cm. No sections are submitted (gross only). / AM:marely 09/18/19 CPT: 97277
--- NOTE | 2019-09-18 11:11 | RAD_ITS ---
STUDY: X-RAY - LEFT FOOT CLINICAL: Male, 49 years old. POST OP PORTABLE, LEFT FOOT REMOVAL OF FOREIGN BODY. TECHNIQUE: 3 view(s) of the foot. COMPARISON: 07/18/2019 FINDINGS: Fifth digit amputation. Soft tissue swelling. No fractures or osteolytic lesions are seen. No retained radiodense foreign body is identified. RAD/Foot min 3 Views IMPRESSION: No retained radiodense foreign body is identified. Electronically Signed: Charles Liriano MD at 12:26 EDT Tel , Service support ,
== END 2019-09-18 11:43 | disposition home or self-care (01) ==
LOC: SDC 08:40 → AC 08:40
PROVIDERS: Nurse Practitioner Family; PCP Internal Medicine; Referring Provider Podiatrist; Visit Provider Podiatrist
PROC: (CPT 11043; principal; 2019-09-18 10:15)
DX: S90.852A Superficial foreign body, left foot, initial encounter (principal); W45.8XXA Other foreign body or object entering through skin, initial encounter; L97.529 Non-pressure chronic ulcer of other part of left foot with unspecified severity; I10 Essential (primary) hypertension; E11.9 Type 2 diabetes mellitus without complications; E66.9 Obesity, unspecified; F17.210 Nicotine dependence, cigarettes, uncomplicated; Z86.718 Personal history of other venous thrombosis and embolism; Z68.43 Body mass index [BMI] 50.0-59.9, adult
CPT/HCPCS: 11043; 28192; 36415; 73620; 73630; 76000; 80053; 82962; 85025; 88300; J7120; J2405

== ENCOUNTER 2020-01-23 10:02 | Inpatient (IN) | payer MEDICAID, SELFPAY ==
[2019-11-29 15:44] VITALS: BMI 55.8
[2020-01-23] VITALS (8 sets, daily range): BP systolic 144–173; BP diastolic 75–101; PULSE 89–107; RESP 14–20; TEMP 36.7–37.1; O2SAT 94–98; BMI 48.8; BMI 55.2
--- NOTE | 2020-01-23 10:49 | ED.VIS.GEN ---
History of Present Illness Chief Complaint: Lower Extremity Injury Onset: Today Narrative: 49-year-old male with uncontrolled diabetes presents with concern for osteomyelitis of the right second toe. Patient was seen by vacuum forming machine operator this morning and advised to go to the hospital for admission and amputation. Patient denies any fever, chills, nausea, vomiting. States that he dropped a piece of wood on this toe approximately 10 days ago but was refusing to come to the emergency department. Past Medical History - Allergies and Home Meds Allergies/Adverse Reactions: Allergies ketorolac [From Toradol] Adverse Reaction (Verified 01/23/20 10:05) Upset Stomach NSAIDS (Non-Steroidal Anti-Inflamma Adverse Reaction (Verified 01/23/20 10:05) Upset Stomach Primary Care Physician: Gavin Raymundo MD [Primary Care Provider] - Prior records reviewed: Yes Past Medical History: - - DM HTN Obesity Surgical History: - - Amando fundoplication, cholecystectomy. Smoking Status: Current every day smoker Review of Systems General: Denies: Chills, Fever, Sweats Eyes: Denies: Visual changes - bilaterally, Diplopia ENT: Denies: Rhinorrhea, Sore throat Cardiovascular: Denies: Chest pain, Palpitations Respiratory: Denies: Dyspnea, Cough, Dyspnea on exertion Gastrointestinal: Denies: Abdominal pain, Nausea, Vomiting, Diarrhea, Melena, Hematochezia Genitourinary: Denies: Dysuria, Hematuria, Frequency Musculoskeletal: Denies: Back pain, Extremity Pain Skin: Reports: Wounds. Denies: Rash Neurological: Denies: Headache, Weakness, Numbness Physical Exam Vital Signs/Narrative: Vital Signs Temp Pulse Resp BP Pulse Ox 01/23/20 10:03 98.5 F 103 H 20 H 168/101 H 96 Inital Vital Signs reviewed: Yes General: Well nourished, Well developed, No Acute Distress Head: Normocephalic, Atraumatic Eyes: Perrl, EOMI ENT: Moist mucous membranes, No rhinorrhea Neck: Supple, Nontender Cardiovascular: Regular rate, Regular rhythm, No murmurs Respiratory: No distress, CTA bilaterally, Chest nontender Abdomen: Soft, Nontender, Nondistended, Normal bowel sounds Back: Nontender, Normal Inspection Extremities: Nontender, No edema Skin: Normal color, No rash, - - Open wound to the dorsal aspect of the right second toe. Foul odor. Scant drainage. Neurological: Alert, Oriented x3, Cranial nerves II-XII grossly intact, Normal Strength, Normal Sensation Psychological: Normal affect, Normal Mood Diagnostic/Tx/Re-eval - Medical Decision Making Patient appears well nontoxic. Vital signs show slight tachycardia. Patient is stable at this time. Lab work will be drawn. Patient was given Zosyn and vancomycin and will be admitted to the hospitalist service at request of Dr. Ramos. Impression: 1. Right second toe osteomyelitis ED Disposition - Plan for ED Patient: Disposition: Acute Care Hospital [facility] Referrals: Gavin Raymundo MD [Primary Care Provider] -
--- NOTE | 2020-01-23 11:02 | NURSING ---
DR LOIS BOGGS
--- NOTE | 2020-01-23 11:04 | NURSING ---
MED SURG KITTOE OSTEOMYELITIS
--- NOTE | 2020-01-23 11:17 | PCM.HP.STD ---
Problem List (1) Sepsis Status: Resolved (2) Hyperglycemia due to type 2 diabetes mellitus Status: Resolved (3) Sinus tachycardia seen on framing consultant Status: Resolved (4) Dry skin dermatitis Status: Chronic (5) Cellulitis of right lower extremity Status: Acute (6) Thrombocytopenia Status: Chronic (7) Sleep apnea Status: Chronic (8) Osteoarthritis Status: Chronic (9) Bilateral lower extremity edema Status: Chronic (10) Type 2 diabetes mellitus Status: Chronic (11) History of esophageal disorder Status: Chronic (12) Hypertension Status: Chronic History of Present Illness Date of Admission: 01/23/20 Chief Complaint: Second right toe infection The patient is a 49 year old M multiple comorbidities including morbid obesity with BMI of 55, diabetes mellitus type 2 who presented with an ulceration and drainage involving the second left toe. Patient had apparently bumped her right to about a week prior to his admission. He initially has stated in getting medical care however on the morning of his presentation he did notice worsening of his symptoms. He called his primary care physician and was instructed to present to the ED.. Patient's evaluation in the ED was consistent with osteomyelitis in the second right toe. Antibiotics initiated in the ED admitted to regular nursing floor with consultation placed to both podiatry medicine as well as infectious disease Past Medical History Past Medical History (Chronic Problems): Chronic Problems (Last Reviewed 01/23/20 @ 12:[address] To Cameron MD) Dry skin dermatitis (Chronic) Thrombocytopenia (Chronic) Sleep apnea (Chronic) Osteoarthritis (Chronic) Bilateral lower extremity edema (Chronic) Type 2 diabetes mellitus (Chronic) History of esophageal disorder (Chronic) Hypertension (Chronic) Medical History: Medical History (Last Reviewed 01/23/20 @ 12:[address] To Cameron MD) History of esophageal disorder (Chronic) Z87.19 Hypertension (Chronic) I10 Amputation of toe of left foot S98.132A 07/2019, pinkie toe DVT (deep venous thrombosis) (Resolved) I82.409 History of gallstones (Resolved) Z87.19 Allergies ketorolac [From Toradol] Adverse Reaction (Verified 01/23/20 10:05) Upset Stomach NSAIDS (Non-Steroidal Anti-Inflamma Adverse Reaction (Verified 01/23/20 10:05) Upset Stomach Home Medications: Ambulatory Orders Medication Instructions Recorded blood sugar diagnostic 1 strip MISCELLANEOUS .MEDSUPPLY 02/07/19 #100 ea lisinopril 40 mg tablet 40 mg PO DAILY #90 tab 02/07/19 metformin 1,000 mg tablet 1,000 mg PO BID #180 tab 02/07/19 metoprolol succinate 25 mg 25 mg PO DAILY #90 tab 02/22/19 tablet,extended release 24 hr dulaglutide 1.5 mg/0.5 mL 1.5 mg SC QWEEK #6 ml 03/28/19 subcutaneous pen injector alcohol swabs 4 pad TOPICAL DAILY #4000 ea 04/25/19 hydrochlorothiazide 25 mg tablet 25 mg PO DAILY #90 tab 07/24/19 albuterol sulfate 90 mcg/actuation 1 - 2 puff INHALATION Q6H PRN #8.5 08/04/19 aerosol inhaler g lancets 28 gauge See Rx Instructions .ROUTE 09/01/19 .COMPLEX #100 unspecified amlodipine 10 mg tablet 10 mg PO DAILY #90 tab 09/05/19 hydrocortisone 2.5 % topical cream 1 applic TOPICAL BID #454 g 09/05/19 Acetaminophen 500 mg PO Q6H PRN 09/13/19 [email or web address],[email or web address],xlrg See Rx Instructions .ROUTE 11/29/19 .MEDSUPPLY #2 ea glimepiride 4 mg tablet 4 mg PO QAM #90 tab 11/29/19 Surgical History: - - Amando fundoplication, cholecystectomy. Psychiatric History: No pertinent psych hx Smoking Status: Current every day smoker - *Family History Maternal Family History: Family History (Last Reviewed 01/23/20 @ 12:[address] To Cameron MD) Mother Hypertension Diabetes Heart disease Sister Hypertension Diabetes Crohns disease Brother Diabetes Review of Systems Constitutional: Denies: Anorexia, Chills, Fever, Night Sweats, Weight Change HEENT: Denies: Head Aches, Sinus Congestion, Sinus Drainage Cardiovascular: Denies: Chest Pain, Orthopnea, Palpitations, Paroxysmal Noc. Dyspnea Respiratory: Denies: Cough, Shortness of breath at rest, Shortness of breath upon exertion, Sputum production Gastrointestinal: Denies: Abdominal Pain, Hematemesis, Hematochezia, Nausea, Melena, Vomiting Genitourinary: Denies: Dysuria, Frequency, Hematuria, Urgency Musculoskeletal: Denies: Joint Pain, Joint Tenderness Skin: Reports: Rash, Skin Changes, Wounds Neurological: Denies: Focal weakness, Numbness, Tingling Psychiatric: Denies: Homicidal Ideations, Suicidal Ideations Hematologic/ Lymphatic: Denies: Easy Bruising, Easy Bleeding VTE Information - Inpt Only VTE Present on Admission: No VTE Mechan Device Prophylaxis: None VTE Pharm Prophylaxis ordered?: No Reason prophylaxis not ordered:: Medical Contraindication Objective: GENERAL: cooperative HEENT: Atraumatic; EYES; Anicteric, Normal Conjunctiva NECK; supple, normal thyroid, RESPIRATORY: Diminished to auscultation CARDIOVASCULAR: Regular S1 S2, GI: soft, normoactive bowel sounds, : No Renal angle tenderness; EXTREMITIES: No edema, no clubbing, MUSCULOSKELETAL: Ulceration involving the second toe NEURO: Awake; no lateralizing signs. SKIN: stasis dermatitis involving the lower extremities PSYCH; Flat affect - Physical Exam Vitals/I&O's: Vital Signs Temp Pulse Resp BP Pulse Ox 98.7 F 94 18 161/84 H 95 01/23/20 11:14 01/23/20 11:14 01/23/20 11:14 01/23/20 11:14 01/23/20 11:14 Oxygen Delivery Method Room Air Weight: 158.757 kg Body Mass Index (BMI) 48.8 Finger Stick Blood Glucose 154 Laboratory Results 01/23/20 11:05: WBC Pending, RBC Pending, Hgb Pending, Hct Pending, MCV Pending, MCH Pending, MCHC Pending, RDW Std Deviation Pending, RDW Coeff of Maria Fernanda Pending, Plt Count Pending, Neut % (Auto) Pending, Absolute Neuts (auto) Pending, ESR Pending 01/23/20 11:05: Sodium Pending, Potassium Pending, Chloride Pending, Carbon Dioxide Pending, Anion Gap Pending, BUN Pending, Creatinine Pending, Est GFR (MDRD) Af Amer Pending, Est GFR (MDRD) Non-Af Pending, BUN/Creatinine Ratio Pending, Glucose Pending, Calcium Pending, C-React Prot High Sens Pending Current Medications Vancomycin HCl 1,500 mg/ (Sodium Chloride) 530 mls @ 250 mls/hr IV X1 ONE Stop: 01/23/20 13:07 Assessment/Plan All Active Problems (Last Reviewed 01/23/20 @ 12:[address] To Cameron MD) Cellulitis of foot, left (Acute) Sepsis (Resolved) Hyperglycemia due to type 2 diabetes mellitus (Resolved) Sinus tachycardia seen on framing consultant (Resolved) Cellulitis of right lower extremity (Acute) DVT (deep venous thrombosis) (Resolved) History of gallstones (Resolved) Patient is a 49-year-old gentleman presented with second left toe infection 1. Diabetic foot infection involving the second left toe ?Patient presentation consistent with cellulitis as well as osteomyelitis. Admitted to regular nursing floor started on broad-spectrum antibiotic therapy with Flagyl and Levaquin as well as vancomycin. Consult was placed to both podiatry medicine and infectious disease. Did order for wound cultures as well as MRSA PCR 2. Diabetes mellitus type II -Control with complications including diabetic polyneuropathy as well as diabetic foot infections, patient's oral hypoglycemics held. Placed on long acting insulin, Accu-Cheks a.c. and at bedtime and covered with sliding scale insulin 3. Hypertension - Blood pressure controlled, home medications continued with dose adjustment as needed 4. Thrombocytopenia Do suspect underlying nonalcoholic fatty liver disease contributing to patient low platelet count 5. Morbid obesity with BMI of 55.2 ?Weight loss advised including patient being advised to follow-up with PCP for possible referral for evaluation for gastric bypass 6. Tobacco dependence - Counseled on cessation, offered nicotine patch for tobacco cravings 7. DVT prophylaxis ?Avoided the use of chemoprophylaxis in view of patient low platelet count Inpatient E&M: 86034 Init Hosp L3
--- NOTE | 2020-01-23 11:19 | NURSING ---
DR ABREU IN ER
[2020-01-23 11:21] LABS: Basophil# 0.04 X10^3/uL; Basophil% 0.5 % (0-1); Eosinophil# 0.16 X10^3/uL; Hematocrit 48.4 % (40-54); Hemoglobin 15.9 g/dL (13.0-16.5); Mean Corp Hgb Conc 32.9 g/dL (32-36); Mean Corpuscular Hgb 28.5 pg (27.0-32.0); Mean Corpuscular Volume 86.7 fL (80-94); Mean Platelet Vol. 12.2 fl (6.2-12.0); Monocyte# 0.44 X10^3/uL; Monocyte% 5.6 % (0-10); NRBC Flagged by Analyzer 0 % (0-5); Neutrophil # 6.02 X10^3/uL (2.7-7.7); Neutrophil % 76.8 % (47-70); POSITIVE COUNT YES; Platelet Count 85 K/mm3 (150-450); RBC Distribution Width CV 13.2 % (11.6-14.6); RBC Distribution Width SD 41.6 fl (35.1-43.9); Red Blood Count 5.58 M/mm3 (4.6-6.2); White Blood Count 7.9 K/mm3 (4.4-11.0)
[2020-01-23 11:22] LABS: Differential Indicated SCAN CRITERIA MET
[2020-01-23 11:38] LABS: Anion Gap 5 (5-15); BUN 6 mg/dL (7-18); BUN/Creat Ratio 7.8 RATIO (10-20); Calcium,Total 8.4 mg/dL (8.5-10.1); Chloride 99 mmol/L (98-107); Creatinine, Serum 0.77 mg/dL (0.70-1.30); EST Glomerular Filtration Rate 114 mL/min (>60); Est Glom Filt Rate - Afr Amer 138 mL/min (>60); Glucose 243 mg/dL (74-106); Potassium 3.9 mmol/L (3.5-5.1); Sodium Level 135 mmol/L (136-145)
[2020-01-23 11:43] LABS: Platelet Estimate MOD DEC (ADEQ); Red Cell Morphology NORM C+C NORMAL (NORM C&C)
[2020-01-23 11:44] LABS: Erythrocyte Sedimentation Rate 42 mm/hr (0-15)
--- NOTE | 2020-01-23 12:10 | NURSING ---
wound photo: right 2nd toe
--- NOTE | 2020-01-23 12:18 | RAD_ITS ---
STUDY: X-RAY - RIGHT FOOT CLINICAL: Male, 49 years old. 2ND DIGIT OSTEOMYELITIS TECHNIQUE: 3 view(s) of the foot. COMPARISON: None. FINDINGS: There is a plantar calcaneal spur. Normal visualized subtalar, talonavicular, calcaneocuboid, tarsal and tarsometatarsal articulations. Normal metatarsi. Normal metatarsophalangeal joint of the great toe. Normal tibial and fibular sesamoid bones. Normal interphalangeal joint of the great toe. Normal phalanges of the great toe. Normal second through fifth metatarsophalangeal joints. Diffuse soft tissue swelling. Prominent soft tissue swelling overlying the second toe. There appears to be resorption of the distal portion of the distal phalanx of the second toe. RAD/Foot min 3 Views IMPRESSION: Soft tissue swelling overlying the second toe with erosive changes involving the tuft of the distal phalanx of the second toe. Electronically Signed: Jeronimo Gomez, at 13:04 EDT , Service support ,
[2020-01-23 12:59] LABS: AST(SGOT) 15 U/L (15-37); Alanine Aminotransfer ALT/SGPT 28 U/L (16-61); Alkaline Phosphatase 66 U/L (45-117); Bilirubin, Direct 0.15 mg/dL (0.00-0.30); Globulin 4.2 g/dL (2.2-4.2); Phosphorus 2.4 mg/dL (2.5-4.9); Prealbumin 19.4 mg/dL (20.0-40.0); Protein, Total 7.2 g/dL (6.4-8.2)
[2020-01-23] MEDS: metroNIDAZOLE 500 MG/100 ML BAG 100 MG IV ×2 (14:05→22:53)
[2020-01-23] MEDS: 0.9% Normal Saline 1,000 ML 75 ML IV (14:05)
--- NOTE | 2020-01-23 14:39 | PCM.RX.CS ---
Consult Pharmacy has been consulted to manage selected antiobiotic: Vancomycin Type of Consult: New start Suspected Infection: Skin/Soft tissue, Osteomyelitis Prior Doses of Antibiotics Received/Current Regimen: VANCOMYCIN IV 1500MG GIVEN 01/22 @ 1153 IN ED Labs: Sodium 135 mmol/L (136-145) L 01/23/20 11:05 Potassium 3.9 mmol/L (3.5-5.1) 01/23/20 11:05 Chloride 99 mmol/L (98-107) 01/23/20 11:05 Carbon Dioxide 31.0 mmol/L (21.0-32.0) 01/23/20 11:05 Anion Gap 5 (5-15) 01/23/20 11:05 BUN 6 mg/dL (7-18) L 01/23/20 11:05 Creatinine 0.77 mg/dL (0.70-1.30) 01/23/20 11:05 Est GFR (MDRD) Af Amer 138 mL/min (>60) 01/23/20 11:05 Est GFR (MDRD) Non-Af 114 mL/min (>60) 01/23/20 11:05 BUN/Creatinine Ratio 7.8 RATIO (10-20) L 01/23/20 11:05 Glucose 243 mg/dL (74-106) H 01/23/20 11:05 Weight used for dosin.5 kg Estimated Creatinine Clearance: 192 Goal Trough: 15-20 mcg/mL Pharmacy Plan for Drug Dosing: NEW START IV VANCOMYCIN Consulting Physician: LOIS Indication: DIABETIC FOOT CELLULITIS/OSTEOMYELITIS Goal Trough: 15-20 MG/DL SrCr: 0.77 CrCl: 192 MG/DL - USING ADJ BW Comments: PT RECEIVED A 1500MG DOSE IN ED AT 1153 Vancomcyin Dose: 1500MG Q8H STARTING AT 1800. WILL DRAW TROUGH BEFORE 4TH DOSE PER POLICY Pharmacy Service will continue to monitor and adjust dosing as required. Labs to be done on [date and time ordered]: 01/24/20 @ 8230
[2020-01-23] MEDS: Insulin Lispro 100 UNIT/ML INSULN.PEN SC ×2 (16:02→22:57)
[2020-01-23 16:11] LABS: Bedside Glucose 238 mg/dL (70-110)
--- NOTE | 2020-01-23 17:06 | PCM.CONS.GEN ---
Reason for Consult Date of Consultation: 01/23/20 Reason for Consultation: Right 2nd toe History of Present Illness: The patient is a 49 year old male w/ hx of DM and other medical problems presented with maloderous swollen 2nd toe with ulceration present. He relates he injured it on 01/13/2020, but delayed coming in until today. He relates he has been putting betadine on it and was taking some left over antibiotic. Patient is concerned he is going to miss his brother's wedding on Wednesday. Patient has no other concerns, no complaints of fever, chills, nausea or vomiting. Past Medical History Past Medical History (Chronic Problems): Chronic Problems (Last Reviewed 01/23/20 @ 12:[address] To Cameron MD) Dry skin dermatitis (Chronic) Thrombocytopenia (Chronic) Sleep apnea (Chronic) Osteoarthritis (Chronic) Bilateral lower extremity edema (Chronic) Type 2 diabetes mellitus (Chronic) History of esophageal disorder (Chronic) Hypertension (Chronic) Medical History: Medical History (Last Reviewed 01/23/20 @ 12:[address] To Cameron MD) History of esophageal disorder (Chronic) Z87.19 Hypertension (Chronic) I10 Amputation of toe of left foot S98.132A 07/2019, pinkie toe DVT (deep venous thrombosis) (Resolved) I82.409 History of gallstones (Resolved) Z87.19 Allergies ketorolac [From Toradol] Adverse Reaction (Verified 01/23/20 10:05) Upset Stomach NSAIDS (Non-Steroidal Anti-Inflamma Adverse Reaction (Verified 01/23/20 10:05) Upset Stomach Home Medications: Ambulatory Orders Medication Instructions Recorded albuterol sulfate 90 mcg/actuation 1 - 2 puff INHALATION Q6H PRN #8.5 08/04/19 aerosol inhaler g Acetaminophen 500 mg PO Q6H PRN 09/13/19 Amlodipine Besylate [Norvasc] 10 mg PO DAILY 01/23/20 Dulaglutide [Trulicity] 1.5 mg SUBCUT QWEEK 01/23/20 Glimepiride 4 mg PO QAM 01/23/20 Hydrochlorothiazide [Hctz] 25 mg PO DAILY 01/23/20 Hydrocortisone 1 applic TOPICAL BID 01/23/20 Lisinopril 40 mg PO DAILY 01/23/20 Metformin HCl 1,000 mg PO BID 01/23/20 Metoprolol Succinate [Toprol Xl] 25 mg PO DAILY 01/23/20 Surgical History: - - Amando fundoplication, cholecystectomy. Psychiatric History: No pertinent psych hx Smoking Status: Current every day smoker - *Family History Maternal Family History: Family History (Last Reviewed 01/23/20 @ 12:[address] To Cameron MD) Mother Hypertension Diabetes Heart disease Sister Hypertension Diabetes Crohns disease Brother Diabetes Review of Systems Constitutional: Denies: Chills, Fever, Malaise Musculoskeletal: Reports: Foot Pain - right 2nd toe Skin: Reports: Wounds - Physical Exam Vitals/I&O's: Vital Signs Temp Pulse Resp BP Pulse Ox 98.7 F 96 16 147/75 H 94 01/23/20 16:03 01/23/20 16:03 01/23/20 16:03 01/23/20 16:03 01/23/20 16:03 Oxygen Delivery Method Room Air Weight: 179.5 kg Body Mass Index (BMI) 55.2 Finger Stick Blood Glucose 154 Intake and Output for Last 24 Hours 01/21/20 01/22/20 01/23/20 23:59 23:59 23:59 Intake Total 681.25 / 681.25 Balance 681.25 / 681.25 General: Alert, Oriented x3, Cooperative, No apparent distress Extremities: No Calf Tenderness, - - Right 2nd toe with ulcer dorsal aspect down to bone, there is maloder, cellulitis, edema and drainage c/w infection. No other open lesions, no streaking, no visible abscess, no fluctuance present bilateral. There is POP to the 2nd toe, right, otherwise no other pain to the foot or ankle bilateral. Sensation decreased c/w peripheral neuropathy bilateral foot/ankle. Pulses intact to foot/ankle bilateral. Chronic venous skin changes bilateral lower extremitty. Psych/Mental Status: Appropriate, Alert and oriented to time, place, person, mood and affect Laboratory Results 01/23/20 11:05: WBC 7.9, RBC 5.58, Hgb 15.9, Hct 48.4, MCV 86.7, MCH 28.5, MCHC 32.9, RDW Std Deviation 41.6, RDW Coeff of Maria Fernanda 13.2, Plt Count 85 L, MPV 12.2 H, Immature Gran % (Auto) 1.100 H, Neut % (Auto) 76.8 H, Lymph % (Auto) 14.0 L, [place] % (Auto) 5.6, Eos % (Auto) 2.0, Baso % (Auto) 0.5, Absolute Neuts (auto) 6.0, Absolute Lymphs (auto) 1.10, Nucleated RBC % 0, Platelet Estimate MOD DEC, RBC Morphology NORM C+C, ESR 42 H 01/23/20 11:05: Sodium 135 L, Potassium 3.9, Chloride 99, Carbon Dioxide 31.0, Anion Gap 5, BUN 6 L, Creatinine 0.77, Estim Creat Clear Calc 123.60, Est GFR (MDRD) Af Amer 138, Est GFR (MDRD) Non-Af 114, BUN/Creatinine Ratio 7.8 L, Glucose 243 H, Calcium 8.4 L, C-React Prot High Sens 12.80 H 01/23/20 11:05: Hemoglobin A1c 11.0 H 01/23/20 11:05: Phosphorus 2.4 L, Total Bilirubin 0.50, Direct Bilirubin 0.15, AST 15, ALT 28, Alkaline Phosphatase 66, C-React Prot Ext Range 12.90 H, Total Protein 7.2, Albumin 3.0 L, Globulin 4.2, Prealbumin 19.4 L 01/23/20 12:00: S.aureus Protein A PCR Cancelled, MRSA (PCR) Cancelled 01/23/20 15:35: COVID-19 (ASHLEY) Pending 01/23/20 15:57: POC Glucose 238 H Current Medications Acetaminophen (Tylenol) 650 mg PO Q6H PRN PRN PRN Reason: Pain Score 1-10/Temp > 100.7 F Al Hydroxide/Mg Hydroxide (Mylanta Ii) 30 ml PO Q6H PRN PRN PRN Reason: Gastric Burning Albuterol Sulfate (Ventolin Aerosols) 2.5 mg INHALATION Q2H PRN PRN PRN Reason: DYSPNEA/WHEEZING/SOB Amlodipine Besylate (Norvasc) 10 mg PO DAILY BLAIR Dextrose (D50w Syringe) 0 gm IV X1 PRN; Protocol PRN Reason: Hypoglycemia Glucagon () 1 mg IM .X1 PRN PRN Reason: Hypoglycemia Hydrochlorothiazide (Hctz) 25 mg PO DAILY BLAIR Metronidazole (Flagyl) 500 mg in 100 mls @ 100 mls/hr IV Q8 BLAIR Last Infusion: 01/23/20 15:05 Dose: Infused Documented by: Levofloxacin (Levaquin Iv) 750 mg in 150 mls @ 100 mls/hr IV Q24 [facility] Sodium Chloride () 1,000 mls @ 75 mls/hr IV .[id number] [facility] Last Infusion: 01/23/20 15:05 Dose: 75 mls/hr Documented by: Vancomycin IV Pharmacy to Dose (1 ea/ Sodium Chloride) 500 mls @ 250 mls/hr IV X1 PRN; Protocol PRN Reason: Rx to Dose Sodium Chloride () 250 mls @ 15 mls/hr IV .[id number] PRN PRN Reason: Saline Flush Sodium Chloride () 250 mls @ 15 mls/hr IV .[id number] PRN PRN Reason: Additional IVPB Infusion Vancomycin HCl 1,500 mg/ (Sodium Chloride) 530 mls @ 250 mls/hr IV Q8H [facility] Insulin Glargine (Lantus (Bk)) 10 units SC BID [facility] Insulin Human Lispro (Humalog Kwikpen ([facility])) 0 unit SC ACHS [facility]; Protocol Last Admin: 01/23/20 16:02 Dose: 4 units Documented by: Lisinopril (Zestril) 40 mg PO DAILY [facility] Melatonin (Melatonin) 3 mg PO QHS PRN PRN PRN Reason: INSOMNIA Metoprolol Succinate (Toprol Xl (Beta Valente)) 25 mg PO DAILY [facility] Morphine Sulfate () 4 mg IV Q3H PRN PRN PRN Reason: Pain Score 6-10/10 Nitroglycerin (Nitrostat) 0.4 mg SUBLINGUAL Q5M PRN PRN Reason: CARDIAC/CHEST PAIN Nutritional Formula ([place] Flavor) [facility] Ondansetron HCl (Zofran) 4 mg IV Q8H PRN PRN PRN Reason: NAUSEA/VOMITING Oxycodone HCl (Oxyir) 5 mg PO Q4H PRN PRN PRN Reason: Pain Score 4-5/10 Promethazine HCl (Phenergan) 25 mg IM Q6H PRN PRN PRN Reason: Breakthrough nausea/vomiting Senna/Docusate Sodium (Senokot-S, Michelle-Colace) 2 tablet PO BID PRN PRN PRN Reason: Constipation Sodium Chloride () 10 - 40 ml IV UD PRN PRN Reason: SALINE FLUSH Assessment/Plan All Active Problems (Last Reviewed 01/23/20 @ 12:[address] To Cameron MD) Cellulitis of foot, left (Acute) Sepsis (Resolved) Hyperglycemia due to type 2 diabetes mellitus (Resolved) Sinus tachycardia seen on laboratory monitor (Resolved) Cellulitis of right lower extremity (Acute) DVT (deep venous thrombosis) (Resolved) History of gallstones (Resolved) Osteomyelitis right 2nd toe Ulcer down to necrotic bone right 2nd toe Uncontrolled diabetes Reviewed diagnostic data. Right foot xrays were obtained at our office - there is osteolysis to the 2nd toe, no gas noted. Labs with normal WBC, patient afebrile. Given findings of right 2nd toe discussed options, antibiotics as well as debridement/amputation. Reviewed with patient in detail. A culture has been obtained, broad spectrum IV antibiotics Levofloxacin and Vancomycin have been started, continue to follow culture. Patient would also like to proceed w/ debridement/amputation right 2nd toe. We will plan to proceed w/ this tomorrow. NPO after midnight. Patient did have LEAS in Jul 2019 and did show good arterial flow to feet. Reviewed importance of proper blood sugar/diabetes control to optimize healing and foot/ankle health. Appreciate medicine team assistance.
[2020-01-23 23:05] LABS: Bedside Glucose 221 mg/dL (70-110)
[2020-01-24] VITALS (11 sets, daily range): BP systolic 97–167; BP diastolic 57–99; PULSE 83–90; RESP 16–18; TEMP 36.4–37.1; O2SAT 92–96; BMI 55.2
--- NOTE | 2020-01-24 05:00 | EKG12_ITS ---
Test Reason : AM EKG Blood Pressure : / mmHG Vent. Rate : 085 BPM Atrial Rate : 085 BPM P-R Int : 144 ms QRS Dur : 082 ms QT Int : 386 ms P-R-T Axes : 011 051 063 degrees QTc Int : 459 ms Normal sinus rhythm Normal ECG When compared with ECG of 18-JUL-2019 04:26, No significant change was found Confirmed by NEVILLE STAFFORD, TRAY ([id number]), copy editor YESENIA GONZALEZ ([id number]) on 01/26/2020 9:10:16 AM Referred By: LOIS Confirmed By:ADI LOZADA MD
[2020-01-24] MEDS: metroNIDAZOLE 500 MG/100 ML BAG 100 MG IV ×3 (05:03→21:29)
[2020-01-24] MEDS: Metoprolol(XL)Succ 25 MG Tablet PO (05:14)
[2020-01-24] MEDS: 0.9% Saline Lock 10 ML Syringe IV (05:14)
[2020-01-24] MEDS: Insulin Lispro 100 UNIT/ML INSULN.PEN SC ×4 (05:25→21:30)
[2020-01-24 05:26] LABS: Bedside Glucose 246 mg/dL (70-110)
--- NOTE | 2020-01-24 07:14 | RAD_ITS ---
STUDY: X-RAY - RIGHT FOOT CLINICAL: Male, 49 years old. AMPUTATION 2ND TOE, 15 SEC FLUORO TIME TECHNIQUE: 2 view(s) of the foot. COMPARISON: Comparison is made with prior study January 23, 2020. FINDINGS: Intraoperative imaging provided for amputation of the distal and middle phalanges of the second toe as well as the distal aspect of the proximal phalanx. RAD/Foot 2 Views IMPRESSION: Status post resection of the middle and distal phalanges of the second toe as well as the distal portion of the proximal phalanx of the second toe. Electronically Signed: Jeronimo Gomez, at 12:33 EDT , Service support ,
[2020-01-24 07:19] LABS: Absolute Lymphocyte Count 1.23 X10^3/uL (0.83-4.51); Absolute Neutrophil Count 5.6 X10^3/uL (2.0-7.7); Basophil# 0.05 X10^3/uL; Basophil% 0.7 % (0-1); Eosinophils% 2.6 % (0-5); Hematocrit 48.5 % (40-54); Hemoglobin 15.5 g/dL (13.0-16.5); Lymphocyte # 1.23 X10^3/ul (4.0); Lymphocyte % 16.2 % (19-41); Mean Corpuscular Hgb 28.3 pg (27.0-32.0); Mean Corpuscular Volume 88.5 fL (80-94); Mean Platelet Vol. 12.2 fl (6.2-12.0); Monocyte# 0.39 X10^3/uL; Monocyte% 5.1 % (0-10); NRBC Flagged by Analyzer 0 % (0-5); Neutrophil # 5.62 X10^3/uL (2.7-7.7); Neutrophil % 74.1 % (47-70); POSITIVE COUNT YES; Platelet Count 77 K/mm3 (150-450); RBC Distribution Width CV 13.1 % (11.6-14.6); RBC Distribution Width SD 42.5 fl (35.1-43.9); Red Blood Count 5.48 M/mm3 (4.6-6.2); White Blood Count 7.6 K/mm3 (4.4-11.0)
--- NOTE | 2020-01-24 07:21 | PCM.PN.HOSP ---
Reason for Visit: second left toe infection Subjective: Patient is a 49-year-old gentleman presented with second left toe infection - Patient scheduled to undergo partial right second toe amputation Objective: GENERAL: cooperative HEENT: Atraumatic; EYES; Anicteric, Normal Conjunctiva NECK; supple, normal thyroid, RESPIRATORY: Diminished to auscultation CARDIOVASCULAR: Regular S1 S2, GI: soft, normoactive bowel sounds, : No Renal angle tenderness; EXTREMITIES: No edema, no clubbing, MUSCULOSKELETAL: Ulceration involving the second toe NEURO: Awake; no lateralizing signs. SKIN: stasis dermatitis involving the lower extremities PSYCH; Flat affect Vitals/I&O's: Vital Signs Temp Pulse Resp BP Pulse Ox 97.6 F L 84 18 167/99 H 95 01/24/20 05:15 01/24/20 05:15 01/24/20 05:15 01/24/20 05:15 01/24/20 05:15 Oxygen Delivery Method Room Air Weight: 179.5 kg Body Mass Index (BMI) 55.2 Finger Stick Blood Glucose 154 Intake and Output for Last 24 Hours 01/22/20 01/23/20 01/24/20 23:59 23:59 23:59 Intake Total 2336.25 / 2686.25 1210.0 / 1210.0 Balance 2336.25 / 2686.25 1210.0 / 1210.0 Laboratory Results 01/23/20 11:05: WBC 7.9, RBC 5.58, Hgb 15.9, Hct 48.4, MCV 86.7, MCH 28.5, MCHC 32.9, RDW Std Deviation 41.6, RDW Coeff of Maria Fernanda 13.2, Plt Count 85 L, MPV 12.2 H, Immature Gran % (Auto) 1.100 H, Neut % (Auto) 76.8 H, Lymph % (Auto) 14.0 L, Christian % (Auto) 5.6, Eos % (Auto) 2.0, Baso % (Auto) 0.5, Absolute Neuts (auto) 6.0, Absolute Lymphs (auto) 1.10, Nucleated RBC % 0, Platelet Estimate MOD DEC, RBC Morphology NORM C+C, ESR 42 H 01/23/20 11:05: Sodium 135 L, Potassium 3.9, Chloride 99, Carbon Dioxide 31.0, Anion Gap 5, BUN 6 L, Creatinine 0.77, Estim Creat Clear Calc 123.60, Est GFR (MDRD) Af Amer 138, Est GFR (MDRD) Non-Af 114, BUN/Creatinine Ratio 7.8 L, Glucose 243 H, Calcium 8.4 L, C-React Prot High Sens 12.80 H 01/23/20 11:05: Hemoglobin A1c 11.0 H 01/23/20 11:05: Phosphorus 2.4 L, Total Bilirubin 0.50, Direct Bilirubin 0.15, AST 15, ALT 28, Alkaline Phosphatase 66, C-React Prot Ext Range 12.90 H, Total Protein 7.2, Albumin 3.0 L, Globulin 4.2, Prealbumin 19.4 L 01/23/20 12:00: S.aureus Protein A PCR Cancelled, MRSA (PCR) Cancelled 01/23/20 15:35: COVID-19 (ASHLEY) Negative 01/23/20 15:57: POC Glucose 238 H 01/23/20 22:45: POC Glucose 221 H 01/24/20 05:19: POC Glucose 246 H 01/24/20 07:10: WBC 7.6, RBC 5.48, Hgb 15.5, Hct 48.5, MCV 88.5, MCH 28.3, MCHC 32.0, RDW Std Deviation 42.5, RDW Coeff of Maria Fernanda 13.1, Plt Count 77 L, MPV 12.2 H, Immature Gran % (Auto) 1.300 H, Neut % (Auto) 74.1 H, Lymph % (Auto) 16.2 L, Christian % (Auto) 5.1, Eos % (Auto) 2.6, Baso % (Auto) 0.7, Absolute Neuts (auto) 5.6, Absolute Lymphs (auto) 1.23, Nucleated RBC % 0 01/24/20 07:10: Sodium Pending, Potassium Pending, Chloride Pending, Carbon Dioxide Pending, Anion Gap Pending, BUN Pending, Creatinine Pending, Est GFR (MDRD) Af Amer Pending, Est GFR (MDRD) Non-Af Pending, BUN/Creatinine Ratio Pending, Glucose Pending, Calcium Pending, Total Bilirubin Pending, AST Pending, ALT Pending, Alkaline Phosphatase Pending, Total Protein Pending, Albumin Pending Current Medications Acetaminophen (Tylenol) 650 mg PO Q6H PRN PRN PRN Reason: Pain Score 1-10/Temp > 100.7 F Al Hydroxide/Mg Hydroxide (Mylanta Ii) 30 ml PO Q6H PRN PRN PRN Reason: Gastric Burning Albuterol Sulfate (Ventolin Aerosols) 2.5 mg INHALATION Q2H PRN PRN PRN Reason: DYSPNEA/WHEEZING/SOB Amlodipine Besylate (Norvasc) 10 mg PO DAILY [facility] Dextrose (D50w Syringe) 0 gm IV X1 PRN; Protocol PRN Reason: Hypoglycemia Glucagon () 1 mg IM .X1 PRN PRN Reason: Hypoglycemia Hydrochlorothiazide (Hctz) 25 mg PO DAILY [facility] Metronidazole (Flagyl) 500 mg in 100 mls @ 100 mls/hr IV Q8 [facility] Last Infusion: 01/24/20 06:05 Dose: Infused Documented by: Levofloxacin (Levaquin Iv) 750 mg in 150 mls @ 100 mls/hr IV Q24 [facility] Sodium Chloride () 1,000 mls @ 75 mls/hr IV .[id number] [facility] Last Infusion: 01/24/20 06:10 Dose: 75 mls/hr Documented by: Vancomycin IV Pharmacy to Dose (1 ea/ Sodium Chloride) 500 mls @ 250 mls/hr IV X1 PRN; Protocol PRN Reason: Rx to Dose Sodium Chloride () 250 mls @ 15 mls/hr IV .[id number] PRN PRN Reason: Saline Flush Sodium Chloride () 250 mls @ 15 mls/hr IV .[id number] PRN PRN Reason: Additional IVPB Infusion Vancomycin HCl 1,500 mg/ (Sodium Chloride) 530 mls @ 250 mls/hr IV Q8H [facility] Last Infusion: 01/24/20 04:29 Dose: Infused Documented by: Insulin Glargine (Lantus (Bkc)) 10 units SC BID [facility] Last Admin: 01/23/20 22:58 Dose: 10 u Documented by: Insulin Human Lispro (Humalog Kwikpen (Bkc)) 0 unit SC ACHS [facility]; Protocol Last Admin: 01/24/20 05:25 Dose: 4 units Documented by: Lisinopril (Zestril) 40 mg PO DAILY [facility] Melatonin (Melatonin) 3 mg PO QHS PRN PRN PRN Reason: INSOMNIA Metoprolol Succinate (Toprol Xl (Beta Valente)) 25 mg PO DAILY [facility] Last Admin: 01/24/20 05:14 Dose: 25 mg Documented by: Morphine Sulfate () 4 mg IV Q3H PRN PRN PRN Reason: Pain Score 6-10/10 Nitroglycerin (Nitrostat) 0.4 mg SUBLINGUAL Q5M PRN PRN Reason: CARDIAC/CHEST PAIN Nutritional Formula ([place] Flavor) [facility] Last Admin: 01/23/20 17:38 Dose: Not Given Documented by: Ondansetron HCl (Zofran) 4 mg IV Q8H PRN PRN PRN Reason: NAUSEA/VOMITING Oxycodone HCl (Oxyir) 5 mg PO Q4H PRN PRN PRN Reason: Pain Score 4-5/10 Promethazine HCl (Phenergan) 25 mg IM Q6H PRN PRN PRN Reason: Breakthrough nausea/vomiting Senna/Docusate Sodium (Senokot-S, Michelle-Colace) 2 tablet PO BID PRN PRN PRN Reason: Constipation Sodium Chloride () 10 - 40 ml IV UD PRN PRN Reason: SALINE FLUSH Last Admin: 01/24/20 05:14 Dose: 10 ml Documented by: STROKE Vital Signs/Narrative: Vital Signs Temp Pulse Resp BP Pulse Ox 01/24/20 05:15 97.6 F L 84 18 167/99 H 95 01/24/20 05:14 84 01/24/20 05:08 97.6 F L 84 18 167/99 H 95 Medical Necessity - Tobacco Use Smoking Status: Current every day smoker Assessment/Plan All Active Problems (Last Reviewed 01/23/20 @ 12:[address] To Cameron MD) Cellulitis of foot, left (Acute) Sepsis (Resolved) Hyperglycemia due to type 2 diabetes mellitus (Resolved) Sinus tachycardia seen on cafeteria monitor (Resolved) Cellulitis of right lower extremity (Acute) DVT (deep venous thrombosis) (Resolved) History of gallstones (Resolved) Patient is a 49-year-old gentleman presented with second left toe infection 1. Diabetic foot infection involving the second left toe ?Patient presentation consistent with cellulitis as well as osteomyelitis. Admitted to regular nursing floor started on broad-spectrum antibiotic therapy with Flagyl and Levaquin as well as vancomycin. Consult was placed to both podiatry medicine and infectious disease. Did order for wound cultures as well as MRSA PCR -01/24/2020: Patient scheduled to undergo partial right second toe amputation 2. Diabetes mellitus type II - UnControlled with complications including diabetic polyneuropathy as well as diabetic foot infections, patient's oral hypoglycemics held. Placed on long acting insulin, Accu-Cheks a.c. and at bedtime and covered with sliding scale insulin ?01/24/2020 hemoglobin A1c was 11 3. Hypertension - Blood pressure controlled, home medications continued with dose adjustment as needed 4. Thrombocytopenia Do suspect underlying nonalcoholic fatty liver disease contributing to patient low platelet count 5. Morbid obesity with BMI of 55.2 ?Weight loss advised including patient being advised to follow-up with PCP for possible referral for evaluation for gastric bypass 6. Tobacco dependence - Counseled on cessation, offered nicotine patch for tobacco cravings 7. DVT prophylaxis ?Avoided the use of chemoprophylaxis in view of patient low platelet count Inpatient E&M: 52427 Subs Hosp L3
--- NOTE | 2020-01-24 07:30 | BON_PTH ---
PATIENT: EUSEBIA HECTOR LOC: MS3 U#:[id number] AGE/SX: 49/M ROOM: NH325 RE01/23/[address]: Dr. To Cameron MD : 1970 BED: 1 DIS: 01/25/2020 SPEC #: [id number] RECD: 01/24/20 09:54 STATUS: CHRISSY RE #: [id number] VALENTINA: 01/24/20 07:[address]: Genevieve John DEPT: SURGICAL PATHOLOGY RECD BY: Darlin Watson ENTERED: 01/24/20 11:44 SP TYPE: Bone OTHR DR: MD Dr. Gavin Silverio MD Dr. Jeffrey Wunning, DPM Dr. Stoney Soto MD Tissues: A - Bone of foot, NOS B - Bone of foot, NOS Procedures: Decalcification bone/plaque Surgery Specimen Level IV HEADER OPERATION: Debridement of nonviable, infected and necrotic soft tissue PRE-OP DIAGNOSIS: Osteomyelitis right second toe TISSUE SUBMITTED: A - Soft tissue and bone, right foot, B - Clearance fragment, right foot MICROSCOPIC DIAGNOSIS A. Skin, soft tissue and bone of right foot, excision: Skin and soft tissue with ulceration and associated acute and chronic inflammation and granulation. Hyperkeratosis. Bone with chronic reparative and reactive change. No evidence of osteomyelitis. B. Right foot bone, clearance fragment, biopsy: Skin and soft tissue with reactive change. Bone with reparative change. No evidence of osteomyelitis. AM:marely 01/29/20 MICROSCOPIC DESCRIPTION Slides are reviewed. GROSS DESCRIPTION A - Received in fixative is one container labeled with the patient's name and designated soft tissue and bone right foot. The specimen consists of a piece of bone with underlying tissue measuring 3 x 1.5 x 1 cm. No obvious area of ulceration is noted. Also present in the container is a detached piece of bone measuring 2 x 1 x 1 cm. Bull Bucker sections are submitted in two cassettes as follows: 1 - skin with underlying tissue, 2 - bone after decalcification. Bone is submitted in entirety. B - Received in fixative is one container labeled with the patient's name and designated clearance fragment right foot. The specimen consists of three pieces of bone that in aggregate measure 1.8 x 1 x 0.3 cm. The entire specimen is submitted in one cassette after decalcification. / SJ:marely 01/24/20 TC:2 CPT: 27588 x2, 74644 x2
[2020-01-24] MEDS: Bupivacaine Mpf 0.5% 30 ML VIAL (07:35)
[2020-01-24 07:45] LABS: ALB/GLOB Ratio 0.7 RATIO (0.9-2.4); AST(SGOT) 13 U/L (15-37); Alanine Aminotransfer ALT/SGPT 27 U/L (16-61); Albumin, Serum 2.9 g/dL (3.2-5.0); Alkaline Phosphatase 62 U/L (45-117); Anion Gap 3 (5-15); BUN 9 mg/dL (7-18); BUN/Creat Ratio 11.7 RATIO (10-20); Calcium,Total 8.3 mg/dL (8.5-10.1); Chloride 100 mmol/L (98-107); Creatinine, Serum 0.77 mg/dL (0.70-1.30); EST Glomerular Filtration Rate 114 mL/min (>60); Est Glom Filt Rate - Afr Amer 138 mL/min (>60); Globulin 4.1 g/dL (2.2-4.2); Glucose 231 mg/dL (74-106); Potassium 4.3 mmol/L (3.5-5.1); Sodium Level 137 mmol/L (136-145)
--- NOTE | 2020-01-24 08:15 | PCM.OPRPT ---
Problem List (1) Osteomyelitis of toe of right foot Status: Acute (2) Cellulitis of right lower extremity Status: Acute Report of Operation Date of Procedure: 01/24/20 Pre-Operative Diagnosis: Infected right second toe with ulcer and suspected osteomyelitis Post-Operative Diagnosis: Infected right second toe with ulcer and suspected osteomyelitis Surgery/Procedure Performed:: partial right second toe amputation Description of Surgical Findings:: Hemostasis: No tourniquet utilized, anatomic dissection performed Materials: 3-0 nylon Specimens were sent Complications: None The patient tolerated the procedure and anesthesia well. He was transported to the PACU with vital signs stable and vascular status intact to the right lower extremity. Postoperative x-rays were obtained prior to leaving the operating room demonstrating adequate resection of the infected second toe. No acute injuries or soft tissue emphysema or foreign body were noted. Postoperative orders will be entered. He will resume IV antibiotics on the medical floor. artificial glass eye maker: none - Surgeon: Genevieve John DPM Type of Anesthesia:: Local MAC - Preoperative: Having cc of one-to-one mixture of 0.5% Marcaine plain and 1% lidocaine plain administered in typical right foot second ray block fashion Specimen's removed: 1. Pathology: Soft tissue and bone right foot. 2. Microbiology: Soft tissue and bone right foot (aerobic, anaerobic, acid-fast, fungal). 3. Pathology: Right second toe clearance fragment. 4. Microbiology: Right second toe clearance fragment (aerobic, anaerobic, acid-fast, fungal) Estimated Blood Loss (mL): < 50mL Description of Procedure: Indications: This 49-year-old male with significant past medical history of diabetes with peripheral neuropathy (hemoglobin A1c 11%), hypertension, sleep apnea, thrombocytopenia, obesity, and osteoarthritis presented to the foot and ankle center earlier this week with an ulcer that began within the past couple of weeks. Specifically, he relates he injured this on January 12 but elected not to seek medical treatment. There was progressive odor, illness, swelling and drainage. He was advised to get admitted to the hospital for antibiotics and surgical intervention. He has a limb threatening infection. There is positive probe to bone. The x-rays of the right foot do not demonstrate an acute fracture, dislocation, soft tissue emphysema, or foreign body. There is dorsal contraction of lesser toes consistent with a hammertoe deformity and foot edema. His preoperative diagnostic data with lab work was additionally reviewed. He did not demonstrate leukocytosis however he does have elevation in sedimentation rate (42) and C-reactive protein (12.9). The preoperative indications, planned procedure, possible benefits, risks, anticipated healing time and management were discussed in detail with the patient. No guarantees were made. He understands complications and risks may include but are not limited to the following: delayed or nonhealing, pain, scarring, infection, need for revisional surgery, allergy, blood clot, loss of limb, function, life, transfer lesion or new ulcer formation. He understands COVID-19 is a current situation and her chronic ulcer is preventing her from performing her daily activities. He understands the inherent risks with the virus being present in the community and understands significant precautions are being taken to prevent communicable spread during her hospital session. He therefore elects to proceed forward with the procedure at this time. I answered all of his questions. The surgical consent and the surgical limb were signed. The preoperative diagnostic data was also reviewed including labs. He does appear he also thrombocytopenia and this is noted will be taken to consideration during the surgical procedure. Procedure in detail: The patient was transferred to the operating room via cart and placed on the operating table in the supine position. Final verification of the patient, surgery, and limb designation were performed via the timeout procedure. IV MAC sedation was initiated by the anesthesia team and local anesthetic was administered by the podiatry team. No tourniquet was utilized. His lower extremity was bumped to allow good exposure. The right lower extremity was prepped and draped in the usual aseptic manner. Surgery began as a following: Attention was first directed to the right second toe in which a fishmouth incision was made to allow for removal of the devitalized ulcer with nonviable skin and bone of the second toe. The toe was disarticulated at the proximal interphalangeal joint level. This was removed from the table and sent to pathology and microbiology as noted. This was copiously irrigated with normal saline. All tendons were pulled to length and debrided. Clean instrumentation, adjacent drapes, and gloves were applied to prevent contamination prior to the clearance fragment selection. A clearance fragment was obtained from the diaphysis of the proximal phalanx second toe bone and sent to both microbiology and pathology. Pressure was applied to maintain hemostasis and minimal electrocauterization was necessary. No pulsatile bleeding at this time. There was brisk capillary refill time to the resected areas and the tissue appeared to be healthy without infection or necrosis. There was no purulence, odor, streaking, discolored, or deterioration of the remaining third toe. Saline irrigation was performed again. Gentle no touch technique closure was used to reapproximate the surgical wound with 3-0 nylon with simple suture technique. A postoperative x-ray was obtained with the mini C arm demonstrating adequate resection of part of the second toe. No acute injuries or foreign bodies were identified. A postoperative dressing was applied with Betadine soaked gauze, gauze, Kerlix, and an Jens wrap applied in a noncompressive manner. After procedure: The patient tolerated the procedure and anesthesia well. He was transported to the PACU with vital signs stable and vascular status intact to right lower extremity. He was advised to keep his dressing clean, dry, and intact until follow-up. He was advised to only put weight on her heel with her surgical shoe. It is noted he has neuropathy and I do not anticipate a lot of pain with this procedure. He was advised to elevate the right limb for pain control and edema management. Postoperative x-ray was reviewed as noted. I will continue to follow him closely while in house. He is already started on a vancomycin, levofloxacin, and Flagyl. His culture and pathology results are pending. Infectious disease specialist was also consulted. He understands this may be a great stage procedure and he is at risk for continued limb loss. It is also noted that he had noninvasive vascular studies performed to lower extremities in July 2019 which appeared normal. He had good waveforms, normal ABIs, and normal digital brachial indices. Nutritional services have also been consulted to optimize his diabetes habits and healing potential. His postoperative orders were entered electronically. Genevieve John DPM, [facility] Grafts/Implants Used: none - Complications none - Admit VTE Documentation VTE Present on Admission: No VTE Mechan Device Prophylaxis: SCD's VTE Pharm Prophylaxis ordered?: No Reason prophylaxis not ordered:: Procedure Not Indicated - will consider after surgery
[2020-01-24] MEDS: levoFLOXacin IV 750 MG/150 ML BAG 100 MG IV (09:13)
[2020-01-24] MEDS: hydroCHLOROthiazide 25 MG Tablet PO (09:18)
[2020-01-24] MEDS: Lisinopril 40 MG Tablet PO (09:19)
[2020-01-24] MEDS: amLODIPine 10 MG Tablet PO (09:19)
[2020-01-24] MEDS: oxyCODONE 5 MG Tablet PO ×3 (09:25→21:40)
[2020-01-24] MEDS: 0.9% Normal Saline 1,000 ML 75 ML IV (09:31)
[2020-01-24 10:03] LABS: Vancomycin, Trough Level 10.2 ug/mL (5.0-15.0)
--- NOTE | 2020-01-24 10:08 | PHA.PHARE_ITS ---
Consult Pharmacy has been consulted to manage selected antiobiotic: Vancomycin Type of Consult: Follow-up Labs: Sodium 137 mmol/L (136-145) 01/24/20 07:10 Potassium 4.3 mmol/L (3.5-5.1) 01/24/20 07:10 Chloride 100 mmol/L (98-107) 01/24/20 07:10 Carbon Dioxide 34.0 mmol/L (21.0-32.0) H 01/24/20 07:10 Anion Gap 3 (5-15) L 01/24/20 07:10 BUN 9 mg/dL (7-18) 01/24/20 07:10 Creatinine 0.77 mg/dL (0.70-1.30) 01/24/20 07:10 Est GFR (MDRD) Af Amer 138 mL/min (>60) 01/24/20 07:10 Est GFR (MDRD) Non-Af 114 mL/min (>60) 01/24/20 07:10 BUN/Creatinine Ratio 11.7 RATIO (-20) 01/24/20 07:10 Glucose 231 mg/dL (74-106) H 01/24/20 07:10 Vancomycin Trough 10.2 ug/mL (5.0-15.0) 01/24/20 09:05 Weight used for dosin kg Goal Trough: 15-20 mcg/mL Pharmacy Plan for Drug Dosing: Trough below goal. Concerned with dose/interval compared to patient's BSA that he is likely not yet close to steady state and an increase in dose may result in a large increase in eventual trough. Recommend to continue same dose and re- check trough tomorrow at same time. Pharmacy Service will continue to monitor and adjust dosing as required. Follow-Up Labs: Trough Vancomycin - 01/24 @ [id number]
--- NOTE | 2020-01-24 10:20 | CASEMGMT ---
ASHLEY CM Face to Face with patient for initial transition planning/care coordination assessment. RN CM introduced self and role at [facility]. Patient sitting in chair, alert and oriented. Patient willing to participate in assessment and is able to answer all questions appropriately. Care providers, pharmacy, and demographics verified. Patient wishes to discharge home, with possible HHC, will monitor for need. RN CM informed patient that HHC will not come daily and would need someone to assist with dressing changes. Patient states that his sister would be able to assist. Patient states he has no further needs or concerns at this time. CM to follow for discharge planning needs that may arise. PCP: Zackary Specialists: Richard convertible top installer Preferred Pharmacy: [facility] Insurance: [employer] Prescription Benefit: yes Living Will/HPOA: none LNOK: brother, sister Living Arrangements: Patient lives alone in first floor apartment with no steps to enter. Patient states he is independent at home. Transportation: [employer] or cousin DME/HHC: Patient states he does not have any DME at home. CM to monitor for need for DME and HHC at discharge pending course of treatment. Disposition Plan: Patient to discharge home with family support and follow-up plans in place. Will monitor for HHC. Bella MTZ, RN, CM
[2020-01-24 11:56] LABS: Bedside Glucose 265 mg/dL (70-110)
--- NOTE | 2020-01-24 16:05 | CON.PCM_ITS ---
Problem List (1) Osteomyelitis of toe of right foot Status: Acute Reason for Consult: osteo Consulted by: Dr. Cameron History of Present Illness: The patient is a 49 year old M with obesity, uncontrolled DM, presented with one week of worsening R 2nd toe redness, swelling, serous drainage, and mild pain after dropping something on that toe. No fever, no chills, no recent abx. Denies neuropathy. Came to ED, admitted on vanc/levaquin/flagyl, taken to OR this AM by Dr. John for distal toe amputation. Feeling ok now. Full ROS performed and neg except as noted above. - Medical History Past Medical History (Chronic Problems): Chronic Problems (Last Reviewed 01/23/20 @ 12:[address] To Cameron MD) Dry skin dermatitis (Chronic) Thrombocytopenia (Chronic) Sleep apnea (Chronic) Osteoarthritis (Chronic) Bilateral lower extremity edema (Chronic) Type 2 diabetes mellitus (Chronic) History of esophageal disorder (Chronic) Hypertension (Chronic) Allergies/Adverse Reactions: Allergies ketorolac [From Toradol] Adverse Reaction (Verified 01/23/20 10:05) Upset Stomach NSAIDS (Non-Steroidal Anti-Inflamma Adverse Reaction (Verified 01/23/20 10:05) Upset Stomach Home Medications: Ambulatory Orders Medication Instructions Recorded albuterol sulfate 90 mcg/actuation 1 - 2 puff INHALATION Q6H PRN #8.5 08/04/19 aerosol inhaler g Acetaminophen 500 mg PO Q6H PRN 09/13/19 Amlodipine Besylate [Norvasc] 10 mg PO DAILY 01/23/20 Dulaglutide [Trulicity] 1.5 mg SUBCUT QWEEK 01/23/20 Glimepiride 4 mg PO QAM 01/23/20 Hydrochlorothiazide [Hctz] 25 mg PO DAILY 01/23/20 Hydrocortisone 1 applic TOPICAL BID 01/23/20 Lisinopril 40 mg PO DAILY 01/23/20 Metformin HCl 1,000 mg PO BID 01/23/20 Metoprolol Succinate [Toprol Xl] 25 mg PO DAILY 01/23/20 - Social History SMOKING STATUS:: Former smoker Vital Signs Temp Pulse Resp BP Pulse Ox 98.4 F 83 18 129/77 H 96 01/24/20 14:30 01/24/20 14:30 01/24/20 14:30 01/24/20 14:30 01/24/20 14:30 Oxygen Delivery Method Room Air Weight: 179.5 kg Body Mass Index (BMI) 55.2 Finger Stick Blood Glucose 154 Microbiology Past 72 Hours 01/24/20 07:50 Gram Stain - Final Other - Other 01/24/20 07:50 Gram Stain - Final Other - Other 01/23/20 12:00 Gram Stain - Final Wound - Toe Wound Culture - Preliminary Gram negative carlos Gram positive organism Alpha hemolytic organism Laboratory Tests Past 24 Hrs 01/23/20 01/24/20 01/24/20 15:35 07:10 07:10 WBC 7.6 RBC 5.48 Hgb 15.5 Hct 48.5 MCV 88.5 MCH 28.3 MCHC 32.0 RDW Std Deviation 42.5 RDW Coeff of Maria Fernanda 13.1 Plt Count 77 L MPV 12.2 H Immature Gran % (Auto) 1.300 H Neut % (Auto) 74.1 H Lymph % (Auto) 16.2 L [place] % (Auto) 5.1 Eos % (Auto) 2.6 Baso % (Auto) 0.7 Absolute Neuts (auto) 5.6 Absolute Lymphs (auto) 1.23 Nucleated RBC % 0 Sodium 137 Potassium 4.3 Chloride 100 Carbon Dioxide 34.0 H Anion Gap 3 L BUN 9 Creatinine 0.77 Estim Creat Clear Calc 123.60 Est GFR (MDRD) Af Amer 138 Est GFR (MDRD) Non-Af 114 BUN/Creatinine Ratio 11.7 Glucose 231 H Calcium 8.3 L Total Bilirubin 0.50 AST 13 L ALT 27 Alkaline Phosphatase 62 Total Protein 7.0 Albumin 2.9 L Globulin 4.1 Albumin/Globulin Ratio 0.7 L Vancomycin Trough COVID-19 ([facility]) Negative 01/24/20 09:05 WBC RBC Hgb Hct MCV MCH MCHC RDW Std Deviation RDW Coeff of Maria Fernanda Plt Count MPV Immature Gran % (Auto) Neut % (Auto) Lymph % (Auto) [place] % (Auto) Eos % (Auto) Baso % (Auto) Absolute Neuts (auto) Absolute Lymphs (auto) Nucleated RBC % Sodium Potassium Chloride Carbon Dioxide Anion Gap BUN Creatinine Estim Creat Clear Calc Est GFR (MDRD) Af Amer Est GFR (MDRD) Non-Af BUN/Creatinine Ratio Glucose Calcium Total Bilirubin AST ALT Alkaline Phosphatase Total Protein Albumin Globulin Albumin/Globulin Ratio Vancomycin Trough 10.2 COVID-19 ([facility]) - Other Studies Radiology: [] reviewed Other Studies: [] Route of nutrition/ use of supplements: [] Nutritional Intake: [] IV Site: [] Faulkner Catheter: [] - Physical Exam General: Alert, Oriented x3, Cooperative, No apparent distress HEENT: Atraumatic, PERRLA, EOMI Neck: Supple, No Nodes Lungs: Clear to auscultation, Normal air movement Cardiovascular: Regular rate, Regular Rhythm Abdomen: Soft, Non Tender, Non-Distended, Obese Extremities: Edema Skin: Ulcer/ Wound - reviewed photo R foot IV Site: Peripheral, without redness Musculoskeletal: No Tenderness to Palpation of Joints or Extremities Neurological: Cranial nerves II-XII grossly intact - Assessment/Plan Antibiotics: [] Assessment/Plan: [] Active and Suspected Problems (Last Reviewed 01/23/20 @ 12:[address] To Cameron MD) Osteomyelitis of toe of right foot (Acute) R toe osteo with uncontrolled DM - now s/p distal amputation 01/24/[address] John. Wound cx pending. Will cover with vanc/ceftriaxone/flagyl for now. If clean margins, should only need short course po abx at discharge. Will follow, thank you.
[2020-01-24 17:05] LABS: Bedside Glucose 260 mg/dL (70-110)
[2020-01-24 22:01] LABS: Bedside Glucose 263 mg/dL (70-110)
[2020-01-25 02:32] VITALS: BP 126/76; PULSE 84; RESP 18; TEMP 36.9; O2SAT 94
[2020-01-25] MEDS: metroNIDAZOLE 500 MG/100 ML BAG 100 MG IV (05:50)
[2020-01-25 06:25] LABS: Absolute Lymphocyte Count 1.33 X10^3/uL (0.83-4.51); Absolute Neutrophil Count 7.1 X10^3/uL (2.0-7.7); Basophil# 0.05 X10^3/uL; Basophil% 0.5 % (0-1); Eosinophils% 2.1 % (0-5); Hematocrit 49.1 % (40-54); Hemoglobin 15.6 g/dL (13.0-16.5); Lymphocyte # 1.33 X10^3/ul (4.0); Lymphocyte % 14.3 % (19-41); Mean Corp Hgb Conc 31.8 g/dL (32-36); Mean Platelet Vol. 12.9 fl (6.2-12.0); Monocyte# 0.51 X10^3/uL; Monocyte% 5.5 % (0-10); NRBC Flagged by Analyzer 0 % (0-5); Neutrophil # 7.11 X10^3/uL (2.7-7.7); Neutrophil % 76.3 % (47-70); POSITIVE COUNT YES; Platelet Count 76 K/mm3 (150-450); RBC Distribution Width CV 13.3 % (11.6-14.6); RBC Distribution Width SD 42.4 fl (35.1-43.9); Red Blood Count 5.58 M/mm3 (4.6-6.2); White Blood Count 9.3 K/mm3 (4.4-11.0)
--- NOTE | 2020-01-25 06:50 | PCM.PROGNOTE ---
Patient Problems: Active and Suspected Problems (Last Reviewed 01/23/20 @ 12:[address] To Cameron MD) Osteomyelitis of toe of right foot (Acute) Subjective: This 49-year-old male with diabetes was seen postoperative day #1 partial right second toe amputation. He relates his pain at worst is a 5 out of 10. He denies fever, chill, nausea, vomiting, leg pain, shortness of breath, chest pain. He has a surgical shoe in place and has a walker at home already. - Physical Exam Vitals/I&O's: Vital Signs Temp Pulse Resp BP Pulse Ox 98.5 F 84 18 126/76 H 94 01/25/20 02:32 01/25/20 02:32 01/25/20 02:32 01/25/20 02:32 01/25/20 02:32 Oxygen Delivery Method Room Air Weight: 179.5 kg Body Mass Index (BMI) 55.2 Finger Stick Blood Glucose 154 Intake and Output for Last 24 Hours 01/23/20 01/24/20 01/25/20 23:59 23:59 23:59 Intake Total 2336.25 / 2686.25 4187.50 / 4187.50 1221.25 / 1221.25 Balance 2336.25 / 2686.25 4187.50 / 4187.50 1221.25 / 1221.25 General: Alert, Oriented x3, Cooperative Extremities: No cyanosis, Capillary Refill Less than 3 Seconds, No Calf Tenderness - Negative Tammie and Andrade sign bilateral, Diminished Peripheral Pulses, Edema Skin: Incision - Well aligned and coapted to partial second toe amputation site. No gapping, necrosis, erythema, streaking. No odor has resolved. The car apartments are soft to palpate around the surgical site. There is no bogginess or fluctuance on palpation. There is no crepitus. Musculoskeletal: No Tenderness to Palpation of Joints or Extremities, - - Partial right second toe amputation Neurological: - - Lack of normal epicritic sensation light touch is consistent with neuropathy status Psych/Mental Status: Normal Affect, Appropriate Microbiology Past 72 Hours 01/24/20 07:50 Other - Other Gram Stain - Final 01/24/20 07:50 Other - Other Gram Stain - Final 01/23/20 12:00 Wound - Toe Gram Stain - Final 01/23/20 12:00 Wound - Toe Wound Culture - Preliminary Gram negative carlos Gram positive organism Alpha hemolytic organism Laboratory Results 01/24/20 07:10: WBC 7.6, RBC 5.48, Hgb 15.5, Hct 48.5, MCV 88.5, MCH 28.3, MCHC 32.0, RDW Std Deviation 42.5, RDW Coeff of Maria Fernanda 13.1, Plt Count 77 L, MPV 12.2 H, Immature Gran % (Auto) 1.300 H, Neut % (Auto) 74.1 H, Lymph % (Auto) 16.2 L, [place] % (Auto) 5.1, Eos % (Auto) 2.6, Baso % (Auto) 0.7, Absolute Neuts (auto) 5.6, Absolute Lymphs (auto) 1.23, Nucleated RBC % 0 01/24/20 07:10: Sodium 137, Potassium 4.3, Chloride 100, Carbon Dioxide 34.0 H, Anion Gap 3 L, BUN 9, Creatinine 0.77, Estim Creat Clear Calc 123.60, Est GFR (MDRD) Af Amer 138, Est GFR (MDRD) Non-Af 114, BUN/Creatinine Ratio 11.7, Glucose 231 H, Calcium 8.3 L, Total Bilirubin 0.50, AST 13 L, ALT 27, Alkaline Phosphatase 62, Total Protein 7.0, Albumin 2.9 L, Globulin 4.1, Albumin/Globulin Ratio 0.7 L 01/24/20 09:05: Vancomycin Trough 10.2 01/24/20 11:20: POC Glucose 265 H 01/24/20 16:28: POC Glucose 260 H 01/24/20 21:28: POC Glucose 263 H 01/25/20 06:14: WBC 9.3, RBC 5.58, Hgb 15.6, Hct 49.1, MCV 88.0, MCH 28.0, MCHC 31.8 L, RDW Std Deviation 42.4, RDW Coeff of Maria Fernanda 13.3, Plt Count 76 L, MPV 12.9 H, Immature Gran % (Auto) 1.300 H, Neut % (Auto) 76.3 H, Lymph % (Auto) 14.3 L, [place] % (Auto) 5.5, Eos % (Auto) 2.1, Baso % (Auto) 0.5, Absolute Neuts (auto) 7.1, Absolute Lymphs (auto) 1.33, Nucleated RBC % 0 01/25/20 06:14: Sodium Pending, Potassium Pending, Chloride Pending, Carbon Dioxide Pending, Anion Gap Pending, BUN Pending, Creatinine Pending, Est GFR (MDRD) Af Amer Pending, Est GFR (MDRD) Non-Af Pending, BUN/Creatinine Ratio Pending, Glucose Pending, Calcium Pending, Total Bilirubin Pending, AST Pending, ALT Pending, Alkaline Phosphatase Pending, Total Protein Pending, Albumin Pending Current Medications Acetaminophen (Tylenol) 650 mg PO Q6H PRN PRN PRN Reason: Pain Score 1-10/Temp > 100.7 F Al Hydroxide/Mg Hydroxide (Mylanta Ii) 30 ml PO Q6H PRN PRN PRN Reason: Gastric Burning Albuterol Sulfate (Ventolin Aerosols) 2.5 mg INHALATION Q2H PRN PRN PRN Reason: DYSPNEA/WHEEZING/SOB Amlodipine Besylate (Norvasc) 10 mg PO DAILY [facility] Last Admin: 01/24/20 09:19 Dose: 10 mg Documented by: Dextrose (D50w Syringe) 0 gm IV X1 PRN; Protocol PRN Reason: Hypoglycemia Glucagon () 1 mg IM .X1 PRN PRN Reason: Hypoglycemia Hydrochlorothiazide (Hctz) 25 mg PO DAILY [facility] Last Admin: 01/24/20 09:18 Dose: 25 mg Documented by: Metronidazole (Flagyl) 500 mg in 100 mls @ 100 mls/hr IV Q8 [facility] Last Admin: 01/25/20 05:50 Dose: 100 mls/hr Documented by: Sodium Chloride () 1,000 mls @ 75 mls/hr IV .[id number] [facility] Last Infusion: 01/25/20 05:50 Dose: 0 mls/hr Documented by: Vancomycin IV Pharmacy to Dose (1 ea/ Sodium Chloride) 500 mls @ 250 mls/hr IV X1 PRN; Protocol PRN Reason: Rx to Dose Sodium Chloride () 250 mls @ 15 mls/hr IV .[id number] PRN PRN Reason: Saline Flush Sodium Chloride () 250 mls @ 15 mls/hr IV .[id number] PRN PRN Reason: Additional IVPB Infusion Vancomycin HCl 1,500 mg/ (Sodium Chloride) 530 mls @ 250 mls/hr IV Q8H [facility] Last Infusion: 01/25/20 04:34 Dose: Infused Documented by: Ceftriaxone Sodium 2 gm/ (Sodium Chloride) 50 mls @ 100 mls/hr IV Q24 [facility] Last Infusion: 01/24/20 17:30 Dose: Infused Documented by: Insulin Glargine (Lantus ([facility])) 10 units SC BID [facility] Last Admin: 01/24/20 21:30 Dose: 10 u Documented by: Insulin Human Lispro (Humalog Kwikpen ([facility])) 0 unit SC ACHS [facility]; Protocol Last Admin: 01/24/20 21:30 Dose: 6 units Documented by: Lisinopril (Zestril) 40 mg PO DAILY [facility] Last Admin: 01/24/20 09:19 Dose: 40 mg Documented by: Melatonin (Melatonin) 3 mg PO QHS PRN PRN PRN Reason: INSOMNIA Metoprolol Succinate (Toprol Xl (Beta Valente)) 25 mg PO DAILY [facility] Last Admin: 01/24/20 05:14 Dose: 25 mg Documented by: Morphine Sulfate () 4 mg IV Q3H PRN PRN PRN Reason: Pain Score 6-10/10 Nitroglycerin (Nitrostat) 0.4 mg SUBLINGUAL Q5M PRN PRN Reason: CARDIAC/CHEST PAIN Nutritional Formula (Glen - Coffee Flavor) [facility] Last Admin: 01/24/20 16:29 Dose: Not Given Documented by: Ondansetron HCl (Zofran) 4 mg IV Q8H PRN PRN PRN Reason: NAUSEA/VOMITING Oxycodone HCl (Oxyir) 5 mg PO Q4H PRN PRN PRN Reason: Pain Score 4-5/10 Last Admin: 01/24/20 21:40 Dose: 5 mg Documented by: Promethazine HCl (Phenergan) 25 mg IM Q6H PRN PRN PRN Reason: Breakthrough nausea/vomiting Senna/Docusate Sodium (Senokot-S, Michelle-Colace) 2 tablet PO BID PRN PRN PRN Reason: Constipation Sodium Chloride () 10 - 40 ml IV UD PRN PRN Reason: SALINE FLUSH Last Admin: 01/24/20 05:14 Dose: 10 ml Documented by: Medical Necessity - Tobacco Use Smoking Status: Current every day smoker Assessment/Plan All Active Problems (Last Reviewed 01/23/20 @ 12:[address] To Cameron MD) Osteomyelitis of toe of right foot (Acute) Cellulitis of foot, left (Acute) Sepsis (Resolved) Hyperglycemia due to type 2 diabetes mellitus (Resolved) Sinus tachycardia seen on telemetry monitor (Resolved) Cellulitis of right lower extremity (Acute) DVT (deep venous thrombosis) (Resolved) History of gallstones (Resolved) POD #1 partial right second toe amputation secondary to osteomyelitis right 2nd toe and ulcer down to necrotic bone oe Uncontrolled diabetes Reviewed diagnostic data and his case this morning. He is afebrile and his vitals remained stable. His white blood cell count is 9.3. CMP this morning is pending. His postoperative x-ray demonstrates adequate partial resection of the second toe. No acute injuries, soft tissue emphysema, or retained foreign body is noted. His cultures obtained from surgery including the clearance fragment that was sent to microbiology and also pathology are pending. Infectious disease consultation is appreciated. To continue on vancomycin, ceftriaxone, and Flagyl. Likely he will be able to be discharged on oral antibiotics. During resection and surgery the new margin appeared healthy without current infectious tissue. A new Betadine gauze dressing was applied today. To keep clean, dry, and intact. After discharge, I recommend he follows up at the [facility] center in 1 week. He was advised to try to maintain a nonweightbearing status but it is okay to place the heel down for transfers only. He already has a walker at home. He was also advised to elevate the limb while at rest and to keep his Jens wrap intact to help with lower extremity edema. Reviewed importance of proper blood sugar/diabetes control to optimize healing and foot/ankle health. Appreciate medicine team assistance. Please not hesitate to call if you have any questions. Okay to discharge from a podiatry surgical standpoint. Medical stabilization will be confirmed. Genevieve John DPM, [facility] [phone]
--- NOTE | 2020-01-25 06:58 | DCINST_ITS ---
Discharge Activity: May Shower - use shower bag to keep surgical site clean and dry, Use Walker Weight Bearing Status: Partial weight bearing - heel weightbear for transfers with surgical shoe Keep extremity elevated above heart level: Right Leg Call your doctor if your incision/area has: Continuous Slow Oozing, Sudden Increased Bleeding, Increased Pain/ Swelling, Increased Redness, Foul Smelling Discharge, Swelling at the incision site Call your doctor if you observe: Fever of 101 or Higher, Calf discomfort, Uncontrolled pain Cleanse incision/area with: Keep Dressing Clean & Dry Allergies/Adverse Reactions: Allergies ketorolac [From Toradol] Adverse Reaction (Verified 01/23/20 10:05) Upset Stomach NSAIDS (Non-Steroidal Anti-Inflamma Adverse Reaction (Verified 01/23/20 10:05) Upset Stomach Medications to take at Discharge albuterol sulfate 90 mcg/actuation aerosol inhaler 1 - 2 puff INHALATION Q6H PRN #8.5 g 08/04/19 Acetaminophen 500 mg PO Q6H PRN 09/13/19 Amlodipine Besylate [Norvasc] 10 mg PO DAILY 01/23/20 Dulaglutide [Trulicity] 1.5 mg SUBCUT QWEEK 01/23/20 Glimepiride 4 mg PO QAM 01/23/20 Hydrochlorothiazide [Hctz] 25 mg PO DAILY 01/23/20 Hydrocortisone 1 applic TOPICAL BID 01/23/20 Lisinopril 40 mg PO DAILY 01/23/20 Metformin HCl 1,000 mg PO BID 01/23/20 Metoprolol Succinate [Toprol Xl] 25 mg PO DAILY 01/23/20 Primary Care Physician: Gavin Raymundo MD [Primary Care Provider] - Test Results: Test results from this visit will be discussed in further detail at your follow- up appointment, if applicable. Please Follow Up With: Genevieve John DPM When: 1 week [facility]. Call [phone] sooner if questions/concerns. Proposed Discharge Date: 01/25/20
[2020-01-25 07:00] LABS: Bedside Glucose 210 mg/dL (70-110)
[2020-01-25] MEDS: Insulin Lispro 100 UNIT/ML INSULN.PEN SC ×2 (07:07→10:34)
[2020-01-25 07:10] LABS: ALB/GLOB Ratio 0.7 RATIO (0.9-2.4); AST(SGOT) 24 U/L (15-37); Alanine Aminotransfer ALT/SGPT 32 U/L (16-61); Albumin, Serum 2.9 g/dL (3.2-5.0); Alkaline Phosphatase 62 U/L (45-117); Anion Gap 5 (5-15); BUN 10 mg/dL (7-18); BUN/Creat Ratio 13.4 RATIO (10-20); Calcium,Total 8.3 mg/dL (8.5-10.1); Chloride 100 mmol/L (98-107); Creatinine, Serum 0.75 mg/dL (0.70-1.30); EST Glomerular Filtration Rate 118 mL/min (>60); Est Glom Filt Rate - Afr Amer 143 mL/min (>60); Estimated Creatinine Clearance 126.89 ml/min; Globulin 4.3 g/dL (2.2-4.2); Glucose 196 mg/dL (74-106); Potassium 3.9 mmol/L (3.5-5.1); Protein, Total 7.2 g/dL (6.4-8.2); Sodium Level 133 mmol/L (136-145)
[2020-01-25] MEDS: oxyCODONE 5 MG Tablet PO (07:10)
--- NOTE | 2020-01-25 07:49 | PN_ITS ---
Patient Problems: Active and Suspected Problems (Last Reviewed 01/23/20 @ 12:[address] To Cameron MD) Osteomyelitis of toe of right foot (Acute) Objective: GENERAL: cooperative HEENT: Atraumatic; EYES; Anicteric, Normal Conjunctiva NECK; supple, normal thyroid, RESPIRATORY: Diminished to auscultation CARDIOVASCULAR: Regular S1 S2, GI: soft, normoactive bowel sounds, : No Renal angle tenderness; EXTREMITIES: No edema, no clubbing, MUSCULOSKELETAL: Ulceration involving the second toe NEURO: Awake; no lateralizing signs. SKIN: stasis dermatitis involving the lower extremities PSYCH; Flat affect Vitals/I&O's: Vital Signs Temp Pulse Resp BP Pulse Ox 98.5 F 84 18 126/76 H 94 01/25/20 02:32 01/25/20 02:32 01/25/20 02:32 01/25/20 02:32 01/25/20 02:32 Oxygen Delivery Method Room Air Weight: 179.5 kg Body Mass Index (BMI) 55.2 Finger Stick Blood Glucose 154 Intake and Output for Last 24 Hours 01/23/20 01/24/20 01/25/20 23:59 23:59 23:59 Intake Total 2336.25 / 2686.25 4187.50 / 4187.50 1321.25 / 1321.25 Balance 2336.25 / 2686.25 4187.50 / 4187.50 1321.25 / 1321.25 Microbiology Past 72 Hours 01/24/20 07:50 Other - Other Gram Stain - Final 01/24/20 07:50 Other - Other Gram Stain - Final 01/23/20 12:00 Wound - Toe Gram Stain - Final 01/23/20 12:00 Wound - Toe Wound Culture - Preliminary Gram negative carlos Gram positive organism Alpha hemolytic organism Laboratory Results 01/24/20 09:05: Vancomycin Trough 10.2 01/24/20 11:20: POC Glucose 265 H 01/24/20 16:28: POC Glucose 260 H 01/24/20 21:28: POC Glucose 263 H 01/25/20 06:14: WBC 9.3, RBC 5.58, Hgb 15.6, Hct 49.1, MCV 88.0, MCH 28.0, MCHC 31.8 L, RDW Std Deviation 42.4, RDW Coeff of Maria Fernanda 13.3, Plt Count 76 L, MPV 12.9 H, Immature Gran % (Auto) 1.300 H, Neut % (Auto) 76.3 H, Lymph % (Auto) 14.3 L, [place] % (Auto) 5.5, Eos % (Auto) 2.1, Baso % (Auto) 0.5, Absolute Neuts (auto) 7.1, Absolute Lymphs (auto) 1.33, Nucleated RBC % 0 01/25/20 06:14: Sodium 133 L, Potassium 3.9, Chloride 100, Carbon Dioxide 28.0, Anion Gap 5, BUN 10, Creatinine 0.75, Estim Creat Clear Calc 126.89, Est GFR (MDRD) Af Amer 143, Est GFR (MDRD) Non-Af 118, BUN/Creatinine Ratio 13.4, Glucose 196 H, Calcium 8.3 L, Total Bilirubin 0.50, AST 24, ALT 32, Alkaline Phosphatase 62, Total Protein 7.2, Albumin 2.9 L, Globulin 4.3 H, Albumin/Globulin Ratio 0.7 L 01/25/20 06:31: POC Glucose 210 H Current Medications Acetaminophen (Tylenol) 650 mg PO Q6H PRN PRN PRN Reason: Pain Score 1-10/Temp > 100.7 F Al Hydroxide/Mg Hydroxide (Mylanta Ii) 30 ml PO Q6H PRN PRN PRN Reason: Gastric Burning Albuterol Sulfate (Ventolin Aerosols) 2.5 mg INHALATION Q2H PRN PRN PRN Reason: DYSPNEA/WHEEZING/SOB Amlodipine Besylate (Norvasc) 10 mg PO DAILY [facility] Last Admin: 01/24/20 09:19 Dose: 10 mg Documented by: Dextrose (D50w Syringe) 0 gm IV X1 PRN; Protocol PRN Reason: Hypoglycemia Glucagon () 1 mg IM .X1 PRN PRN Reason: Hypoglycemia Hydrochlorothiazide (Hctz) 25 mg PO DAILY [facility] Last Admin: 01/24/20 09:18 Dose: 25 mg Documented by: Metronidazole (Flagyl) 500 mg in 100 mls @ 100 mls/hr IV Q8 [facility] Last Infusion: 01/25/20 06:50 Dose: Infused Documented by: Sodium Chloride () 1,000 mls @ 75 mls/hr IV .[id number] [facility] Last Infusion: 01/25/20 06:50 Dose: 75 mls/hr Documented by: Vancomycin IV Pharmacy to Dose (1 ea/ Sodium Chloride) 500 mls @ 250 mls/hr IV X1 PRN; Protocol PRN Reason: Rx to Dose Sodium Chloride () 250 mls @ 15 mls/hr IV .[id number] PRN PRN Reason: Saline Flush Sodium Chloride () 250 mls @ 15 mls/hr IV .[id number] PRN PRN Reason: Additional IVPB Infusion Vancomycin HCl 1,500 mg/ (Sodium Chloride) 530 mls @ 250 mls/hr IV Q8H [facility] Last Infusion: 01/25/20 04:34 Dose: Infused Documented by: Ceftriaxone Sodium 2 gm/ (Sodium Chloride) 50 mls @ 100 mls/hr IV Q24 [facility] Last Infusion: 01/24/20 17:30 Dose: Infused Documented by: Insulin Glargine (Lantus (Bk)) 10 units SC BID [facility] Last Admin: 01/24/20 21:30 Dose: 10 u Documented by: Insulin Human Lispro (Humalog Kwikpen ([facility])) 0 unit SC ACHS [facility]; Protocol Last Admin: 01/25/20 07:07 Dose: 4 units Documented by: Lisinopril (Zestril) 40 mg PO DAILY [facility] Last Admin: 01/24/20 09:19 Dose: 40 mg Documented by: Melatonin (Melatonin) 3 mg PO QHS PRN PRN PRN Reason: INSOMNIA Metoprolol Succinate (Toprol Xl (Beta Valente)) 25 mg PO DAILY [facility] Last Admin: 01/24/20 05:14 Dose: 25 mg Documented by: Morphine Sulfate () 4 mg IV Q3H PRN PRN PRN Reason: Pain Score 6-10/10 Nitroglycerin (Nitrostat) 0.4 mg SUBLINGUAL Q5M PRN PRN Reason: CARDIAC/CHEST PAIN Nutritional Formula (Glen - [place] Flavor) [facility] Last Admin: 01/24/20 16:29 Dose: Not Given Documented by: Ondansetron HCl (Zofran) 4 mg IV Q8H PRN PRN PRN Reason: NAUSEA/VOMITING Oxycodone HCl (Oxyir) 5 mg PO Q4H PRN PRN PRN Reason: Pain Score 4-5/10 Last Admin: 01/25/20 07:10 Dose: 5 mg Documented by: Promethazine HCl (Phenergan) 25 mg IM Q6H PRN PRN PRN Reason: Breakthrough nausea/vomiting Senna/Docusate Sodium (Senokot-S, Michelle-Colace) 2 tablet PO BID PRN PRN PRN Reason: Constipation Sodium Chloride () 10 - 40 ml IV UD PRN PRN Reason: SALINE FLUSH Last Admin: 01/24/20 05:14 Dose: 10 ml Documented by: Medical Necessity - Tobacco Use Smoking Status: Current every day smoker Assessment/Plan All Active Problems (Last Reviewed 01/23/20 @ 12:[address] To Cameron MD) Osteomyelitis of toe of right foot (Acute) Cellulitis of foot, left (Acute) Sepsis (Resolved) Hyperglycemia due to type 2 diabetes mellitus (Resolved) Sinus tachycardia seen on nuclear monitoring technician (Resolved) Cellulitis of right lower extremity (Acute) DVT (deep venous thrombosis) (Resolved) History of gallstones (Resolved) Patient is a 49-year-old gentleman presented with second left toe infection 1. Diabetic foot infection involving the second left toe ?Patient presentation consistent with cellulitis as well as osteomyelitis. Admitted to regular nursing floor started on broad-spectrum antibiotic therapy with Flagyl and Levaquin as well as vancomycin. Consult was placed to both podiatry medicine and infectious disease. Did order for wound cultures as well as MRSA PCR -01/24/2020: Patient scheduled to undergo partial right second toe amputation 2. Diabetes mellitus type II - UnControlled with complications including diabetic polyneuropathy as well as diabetic foot infections, patient's oral hypoglycemics held. Placed on long acting insulin, Accu-Cheks a.c. and at bedtime and covered with sliding scale insulin ?01/24/2020 hemoglobin A1c was 11 3. Hypertension - Blood pressure controlled, home medications continued with dose adjustment as needed 4. Thrombocytopenia Do suspect underlying nonalcoholic fatty liver disease contributing to patient low platelet count 5. Morbid obesity with BMI of 55.2 ?Weight loss advised including patient being advised to follow-up with PCP for possible referral for evaluation for gastric bypass 6. Tobacco dependence - Counseled on cessation, offered nicotine patch for tobacco cravings 7. DVT prophylaxis ?Avoided the use of chemoprophylaxis in view of patient low platelet count
[2020-01-25] MEDS: 0.9% Normal Saline 1,000 ML 75 ML IV (08:20)
[2020-01-25 08:21] VITALS: BP 135/73; PULSE 88; RESP 18; TEMP 36.6; O2SAT 94
--- NOTE | 2020-01-25 10:14 | PCM.PN.ID ---
Patient Problems: Active and Suspected Problems (Last Reviewed 01/23/20 @ 12:[address] To Cameron MD) Osteomyelitis of toe of right foot (Acute) Subjective: Feeling well, no fever, no n/v/d. - Physical Exam Vitals/I&O's: Vital Signs Temp Pulse Resp BP Pulse Ox 97.8 F 88 18 135/73 H 94 01/25/20 08:21 01/25/20 08:21 01/25/20 08:21 01/25/20 08:21 01/25/20 08:21 Oxygen Delivery Method Room Air Weight: 179.5 kg Body Mass Index (BMI) 55.2 Finger Stick Blood Glucose 154 Intake and Output for Last 24 Hours 01/23/20 01/24/20 01/25/20 23:59 23:59 23:59 Intake Total 2336.25 / 2686.25 4187.50 / 4187.50 1537.50 / 1537.50 Balance 2336.25 / 2686.25 4187.50 / 4187.50 1537.50 / 1537.50 General: Alert, Cooperative, No apparent distress Lungs: Clear to auscultation, Normal air movement Cardiovascular: Regular rate, Regular Rhythm Abdomen: Soft, Non Tender, Non-Distended Extremities: Edema Skin: Ulcer/ Wound - foot wrapped Microbiology Past 72 Hours 01/23/20 12:00 Wound - Toe Gram Stain - Final 01/23/20 12:00 Wound - Toe Wound Culture - Preliminary Proteus mirabilis Gram positive organism Alpha hemolytic organism 01/23/20 12:00 Wound - Toe Anaerobic Culture - Preliminary Checking for anaerobes, further studies to follow. 01/24/20 07:50 Other - Other Gram Stain - Final 01/24/20 07:50 Other - Other Gram Stain - Final Laboratory Results 01/24/20 11:20: POC Glucose 265 H 01/24/20 16:28: POC Glucose 260 H 01/24/20 21:28: POC Glucose 263 H 01/25/20 06:14: WBC 9.3, RBC 5.58, Hgb 15.6, Hct 49.1, MCV 88.0, MCH 28.0, MCHC 31.8 L, RDW Std Deviation 42.4, RDW Coeff of Maria Fernanda 13.3, Plt Count 76 L, MPV 12.9 H, Immature Gran % (Auto) 1.300 H, Neut % (Auto) 76.3 H, Lymph % (Auto) 14.3 L, [place] % (Auto) 5.5, Eos % (Auto) 2.1, Baso % (Auto) 0.5, Absolute Neuts (auto) 7.1, Absolute Lymphs (auto) 1.33, Nucleated RBC % 0 01/25/20 06:14: Sodium 133 L, Potassium 3.9, Chloride 100, Carbon Dioxide 28.0, Anion Gap 5, BUN 10, Creatinine 0.75, Estim Creat Clear Calc 126.89, Est GFR (MDRD) Af Amer 143, Est GFR (MDRD) Non-Af 118, BUN/Creatinine Ratio 13.4, Glucose 196 H, Calcium 8.3 L, Total Bilirubin 0.50, AST 24, ALT 32, Alkaline Phosphatase 62, Total Protein 7.2, Albumin 2.9 L, Globulin 4.3 H, Albumin/Globulin Ratio 0.7 L 01/25/20 06:31: POC Glucose 210 H 01/25/20 09:25: Vancomycin Trough Pending Current Medications Acetaminophen (Tylenol) 650 mg PO Q6H PRN PRN PRN Reason: Pain Score 1-10/Temp > 100.7 F Al Hydroxide/Mg Hydroxide (Mylanta Ii) 30 ml PO Q6H PRN PRN PRN Reason: Gastric Burning Albuterol Sulfate (Ventolin Aerosols) 2.5 mg INHALATION Q2H PRN PRN PRN Reason: DYSPNEA/WHEEZING/SOB Amlodipine Besylate (Norvasc) 10 mg PO DAILY [facility] Last Admin: 01/24/20 09:19 Dose: 10 mg Documented by: Dextrose (D50w Syringe) 0 gm IV X1 PRN; Protocol PRN Reason: Hypoglycemia Glucagon () 1 mg IM .X1 PRN PRN Reason: Hypoglycemia Hydrochlorothiazide (Hctz) 25 mg PO DAILY [facility] Last Admin: 01/24/20 09:18 Dose: 25 mg Documented by: Metronidazole (Flagyl) 500 mg in 100 mls @ 100 mls/hr IV Q8 [facility] Last Infusion: 01/25/20 06:50 Dose: Infused Documented by: Sodium Chloride () 1,000 mls @ 75 mls/hr IV .[id number] [facility] Last Infusion: 01/25/20 09:43 Dose: 0 mls/hr Documented by: Vancomycin IV Pharmacy to Dose (1 ea/ Sodium Chloride) 500 mls @ 250 mls/hr IV X1 PRN; Protocol PRN Reason: Rx to Dose Sodium Chloride () 250 mls @ 15 mls/hr IV .[id number] PRN PRN Reason: Saline Flush Sodium Chloride () 250 mls @ 15 mls/hr IV .[id number] PRN PRN Reason: Additional IVPB Infusion Vancomycin HCl 1,500 mg/ (Sodium Chloride) 530 mls @ 250 mls/hr IV Q8H [facility] Last Infusion: 01/25/20 04:34 Dose: Infused Documented by: Ceftriaxone Sodium 2 gm/ (Sodium Chloride) 50 mls @ 100 mls/hr IV Q24 [facility] Last Admin: 01/25/20 09:42 Dose: 100 mls/hr Documented by: Insulin Glargine (Lantus (Bkc)) 10 units SC BID [facility] Last Admin: 01/24/20 21:30 Dose: 10 u Documented by: Insulin Human Lispro (Humalog Kwikpen (Bkc)) 0 unit SC ACHS [facility]; Protocol Last Admin: 01/25/20 07:07 Dose: 4 units Documented by: Lisinopril (Zestril) 40 mg PO DAILY [facility] Last Admin: 01/24/20 09:19 Dose: 40 mg Documented by: Melatonin (Melatonin) 3 mg PO QHS PRN PRN PRN Reason: INSOMNIA Metoprolol Succinate (Toprol Xl (Beta Valente)) 25 mg PO DAILY [facility] Last Admin: 01/24/20 05:14 Dose: 25 mg Documented by: Morphine Sulfate () 4 mg IV Q3H PRN PRN PRN Reason: Pain Score 6-10/10 Nitroglycerin (Nitrostat) 0.4 mg SUBLINGUAL Q5M PRN PRN Reason: CARDIAC/CHEST PAIN Nutritional Formula ([place] Flavor) 1 packet PO BIDCM [facility] Last Admin: 01/25/20 09:39 Dose: Not Given Documented by: Ondansetron HCl (Zofran) 4 mg IV Q8H PRN PRN PRN Reason: NAUSEA/VOMITING Oxycodone HCl (Oxyir) 5 mg PO Q4H PRN PRN PRN Reason: Pain Score 4-5/10 Last Admin: 01/25/20 07:10 Dose: 5 mg Documented by: Promethazine HCl (Phenergan) 25 mg IM Q6H PRN PRN PRN Reason: Breakthrough nausea/vomiting Senna/Docusate Sodium (Senokot-S, Michelle-Colace) 2 tablet PO BID PRN PRN PRN Reason: Constipation Sodium Chloride () 10 - 40 ml IV UD PRN PRN Reason: SALINE FLUSH Last Admin: 01/24/20 05:14 Dose: 10 ml Documented by: Medical Necessity - Tobacco Use Smoking Status: Current every day smoker Route of nutrition/ use of supplements: [] Nutritional Intake: [] IV Site: [] Faulkner Catheter: [] - Assessment/Plan Antibiotics: [] Assessment/Plan: [] Active and Suspected Problems (Last Reviewed 01/23/20 @ 12:[address] To Cameron MD) Osteomyelitis of toe of right foot (Acute) R toe osteo with uncontrolled DM - now s/p distal amputation 01/24/[address] John. Wound cx with proteus and GPC x2. Surg cx and path pending. Ok for d/c home on 5 days /feb. If margins are (+), will need course extended. Will follow as needed, wrote rx, d/w primary team.
[2020-01-25] MEDS: amLODIPine 10 MG Tablet PO (10:30)
[2020-01-25 10:31] VITALS: PULSE 88
[2020-01-25] MEDS: Metoprolol(XL)Succ 25 MG Tablet PO (10:31)
[2020-01-25] MEDS: Lisinopril 40 MG Tablet PO (10:31)
[2020-01-25] MEDS: hydroCHLOROthiazide 25 MG Tablet PO (10:31)
--- NOTE | 2020-01-25 10:39 | PCM.DC ---
- Discharge Diagnoses Current Active Problems: Current Active and Chronic Problems (Last Reviewed 01/23/20 @ 12:[address] To Cameron MD) Osteomyelitis of toe of right foot (Acute) You will use the following diet at home:: Calorie/Carbohydrate Controlled (specify 1200, 1400, etc) - 1800 Your food should be the consistency of: Regular Discharge Activity: May Shower - use shower bag to keep surgical site clean and dry, Use Walker Weight Bearing Status: Partial weight bearing - heel weightbear for transfers with surgical shoe Keep extremity elevated above heart level: Right Leg Call your doctor if your incision/area has: Continuous Slow Oozing, Sudden Increased Bleeding, Increased Pain/ Swelling, Increased Redness, Foul Smelling Discharge, Swelling at the incision site Call your doctor if you observe: Fever of 101 or Higher, Calf discomfort, Uncontrolled pain Cleanse incision/area with: Keep Dressing Clean & Dry Allergies/Adverse Reactions: Allergies ketorolac [From Toradol] Adverse Reaction (Verified 01/23/20 10:05) Upset Stomach NSAIDS (Non-Steroidal Anti-Inflamma Adverse Reaction (Verified 01/23/20 10:05) Upset Stomach Medications to take at Discharge albuterol sulfate 90 mcg/actuation aerosol inhaler 1 - 2 puff INHALATION Q6H PRN #8.5 g 08/04/19 Acetaminophen 500 mg PO Q6H PRN 09/13/19 Amlodipine Besylate [Norvasc] 10 mg PO DAILY 01/23/20 Dulaglutide [Trulicity] 1.5 mg SUBCUT QWEEK 01/23/20 Glimepiride 4 mg PO QAM 01/23/20 Hydrochlorothiazide [Hctz] 25 mg PO DAILY 01/23/20 Hydrocortisone 1 applic TOPICAL BID 01/23/20 Lisinopril 40 mg PO DAILY 01/23/20 Metformin HCl 1,000 mg PO BID 01/23/20 Metoprolol Succinate [Toprol Xl] 25 mg PO DAILY 01/23/20 Amoxicillin/Potassium Clav [Augmentin 875-125 Tablet] 1 ea PO BID #10 tab 01/25/20 Doxycycline 100 mg PO BID #10 cap 01/25/20 The following prescriptions were given: Amoxicillin/Potassium Clav [Augmentin 875-125 Tablet] 1 ea PO BID #10 tab Transmission Status: Received by [facility]/pharmacy #[id number] Doxycycline 100 mg PO BID #10 cap Transmission Status: Re[facility] by [id number] Primary Care Physician: Gavin Raymundo MD [Primary Care Provider] - Please follow up with your Primary Care Physician in: IN 1-2 WEEKS Test Results: Test results from this visit will be discussed in further detail at your follow-up appointment, if applicable. Please Follow Up With: Genevieve John DPM When: [facility]. Call [phone] sooner if questions/concerns. Proposed Discharge Date: 01/25/20
--- NOTE | 2020-01-25 10:42 | DS.PCM_ITS ---
Discharge Date and Diagnosis - Problem List Patient Problems: Active and Suspected Problems (Last Reviewed 01/23/20 @ 12:[address] To Cameron MD) Osteomyelitis of toe of right foot (Acute) Date of Admission: 01/23/20 Date of Discharge: 01/25/20 - Primary Discharge Diagnosis Acute Problems: Active Problems (Last Reviewed 01/23/20 @ 12:[address] To Cameorn MD) Osteomyelitis of toe of right foot (Acute) - Secondary Discharge Diagnosis Chronic Problems: Chronic Problems (Last Reviewed 01/23/20 @ 12:[address] To Cameron MD) Dry skin dermatitis (Chronic) Thrombocytopenia (Chronic) Sleep apnea (Chronic) Osteoarthritis (Chronic) Bilateral lower extremity edema (Chronic) Type 2 diabetes mellitus (Chronic) History of esophageal disorder (Chronic) Hypertension (Chronic) Hospital Course and Treatment Imaging Results: Clinical Impression(s) from Imaging Studies Foot X-Ray 01/23/20 12:18 IMPRESSION: Soft tissue swelling overlying the second toe with erosive changes involving the tuft of the distal phalanx of the second toe. Electronically Signed: Jeronimo Gomez, at 13:04 EDT , Service support , Foot X-Ray 01/24/20 07:14 IMPRESSION: Status post resection of the middle and distal phalanges of the second toe as well as the distal portion of the proximal phalanx of the second toe. Electronically Signed: Jeronimo Gomez at 12:33 EDT , Service support , Operations: - - Left toe amputation Summary of Care Provided: Patient is a 49-year-old gentleman presented with second left toe infection 1. Diabetic foot infection involving the second left toe ?Patient presentation consistent with cellulitis as well as osteomyelitis. Admitted to regular nursing floor started on broad-spectrum antibiotic therapy with Flagyl and Levaquin as well as vancomycin. Consult was placed to both podiatry medicine and infectious disease. Did order for wound cultures as well as MRSA PCR -01/24/2020: Patient underwent partial right second toe amputation ?01/25/2020 this was discussed with Dr. Soto with infectious disease regarding patient antibiotic therapy. 2. Diabetes mellitus type II - UnControlled with complications including diabetic polyneuropathy as well as diabetic foot infections, patient's oral hypoglycemics held. Placed on long acting insulin, Accu-Cheks a.c. and at bedtime and covered with sliding scale insulin ?01/24/2020 hemoglobin A1c was 11 3. Hypertension - Blood pressure controlled, home medications continued with dose adjustment as needed 4. Thrombocytopenia Do suspect underlying nonalcoholic fatty liver disease contributing to patient low platelet count 5. Morbid obesity with BMI of 55.2 ?Weight loss advised including patient being advised to follow-up with PCP for possible referral for evaluation for gastric bypass 6. Tobacco dependence - Counseled on cessation, offered nicotine patch for tobacco cravings 7. DVT prophylaxis ?Avoided the use of chemoprophylaxis in view of patient low platelet count Patient Problems: Active and Suspected Problems (Last Reviewed 01/23/20 @ 12:[address] To Cameron MD) Osteomyelitis of toe of right foot (Acute) Objective: GENERAL: cooperative HEENT: Atraumatic; EYES; Anicteric, Normal Conjunctiva NECK; supple, normal thyroid, RESPIRATORY: Diminished to auscultation CARDIOVASCULAR: Regular S1 S2, GI: soft, normoactive bowel sounds, NEURO: Awake; no lateralizing signs. SKIN: stasis dermatitis involving the lower extremities PSYCH; Flat affect - Physical Exam Vitals/I&O's: Vital Signs Temp Pulse Resp BP Pulse Ox 97.8 F 88 18 135/73 H 94 01/25/20 08:21 01/25/20 10:31 01/25/20 08:21 01/25/20 08:21 01/25/20 08:21 Oxygen Delivery Method Room Air Weight: 179.5 kg Body Mass Index (BMI) 55.2 Finger Stick Blood Glucose 154 Intake and Output for Last 24 Hours 01/23/20 01/24/20 01/25/20 23:59 23:59 23:59 Intake Total 2336.25 / 2686.25 4187.50 / 4187.50 1610.00 / 1610.00 Balance 2336.25 / 2686.25 4187.50 / 4187.50 1610.00 / 1610.00 Microbiology Past 72 Hours 01/23/20 12:00 Wound - Toe Gram Stain - Final 01/23/20 12:00 Wound - Toe Wound Culture - Preliminary Proteus mirabilis Gram positive organism Alpha hemolytic organism 01/23/20 12:00 Wound - Toe Anaerobic Culture - Preliminary Checking for anaerobes, further studies to follow. 01/24/20 07:50 Other - Other Gram Stain - Final 01/24/20 07:50 Other - Other Gram Stain - Final Laboratory Results 01/24/20 11:20: POC Glucose 265 H 01/24/20 16:28: POC Glucose 260 H 01/24/20 21:28: POC Glucose 263 H 01/25/20 06:14: WBC 9.3, RBC 5.58, Hgb 15.6, Hct 49.1, MCV 88.0, MCH 28.0, MCHC 31.8 L, RDW Std Deviation 42.4, RDW Coeff of Maria Fernanda 13.3, Plt Count 76 L, MPV 12.9 H, Immature Gran % (Auto) 1.300 H, Neut % (Auto) 76.3 H, Lymph % (Auto) 14.3 L, [place] % (Auto) 5.5, Eos % (Auto) 2.1, Baso % (Auto) 0.5, Absolute Neuts (auto) 7.1, Absolute Lymphs (auto) 1.33, Nucleated RBC % 0 01/25/20 06:14: Sodium 133 L, Potassium 3.9, Chloride 100, Carbon Dioxide 28.0, Anion Gap 5, BUN 10, Creatinine 0.75, Estim Creat Clear Calc 126.89, Est GFR (MDRD) Af Amer 143, Est GFR (MDRD) Non-Af 118, BUN/Creatinine Ratio 13.4, Glucose 196 H, Calcium 8.3 L, Total Bilirubin 0.50, AST 24, ALT 32, Alkaline Phosphatase 62, Total Protein 7.2, Albumin 2.9 L, Globulin 4.3 H, Albumin/Globulin Ratio 0.7 L 01/25/20 06:31: POC Glucose 210 H 01/25/20 09:25: Vancomycin Trough Pending Current Medications Acetaminophen (Tylenol) 650 mg PO Q6H PRN PRN PRN Reason: Pain Score 1-10/Temp > 100.7 F Al Hydroxide/Mg Hydroxide (Mylanta Ii) 30 ml PO Q6H PRN PRN PRN Reason: Gastric Burning Albuterol Sulfate (Ventolin Aerosols) 2.5 mg INHALATION Q2H PRN PRN PRN Reason: DYSPNEA/WHEEZING/SOB Amlodipine Besylate (Norvasc) 10 mg PO DAILY [facility] Last Admin: 01/25/20 10:30 Dose: 10 mg Documented by: Dextrose (D50w Syringe) 0 gm IV X1 PRN; Protocol PRN Reason: Hypoglycemia Glucagon () 1 mg IM .X1 PRN PRN Reason: Hypoglycemia Hydrochlorothiazide (Hctz) 25 mg PO DAILY [facility] Last Admin: 01/25/20 10:31 Dose: 25 mg Documented by: Metronidazole (Flagyl) 500 mg in 100 mls @ 100 mls/hr IV Q8 [facility] Last Infusion: 01/25/20 06:50 Dose: Infused Documented by: Sodium Chloride () 1,000 mls @ 75 mls/hr IV .[id number] [facility] Last Infusion: 01/25/20 10:30 Dose: 0 mls/hr Documented by: Vancomycin IV Pharmacy to Dose (1 ea/ Sodium Chloride) 500 mls @ 250 mls/hr IV X1 PRN; Protocol PRN Reason: Rx to Dose Sodium Chloride () 250 mls @ 15 mls/hr IV .[id number] PRN PRN Reason: Saline Flush Sodium Chloride () 250 mls @ 15 mls/hr IV .[id number] PRN PRN Reason: Additional IVPB Infusion Vancomycin HCl 1,500 mg/ (Sodium Chloride) 530 mls @ 250 mls/hr IV Q8H [facility] Last Admin: 01/25/20 10:30 Dose: 250 mls/hr Documented by: Ceftriaxone Sodium 2 gm/ (Sodium Chloride) 50 mls @ 100 mls/hr IV Q24 [facility] Last Infusion: 01/25/20 10:12 Dose: Infused Documented by: Insulin Glargine (Lantus (Bkc)) 10 units SC BID [facility] Last Admin: 01/25/20 10:33 Dose: 10 u Documented by: Insulin Human Lispro (Humalog Kwikpen (Bk)) 0 unit SC ACHS [facility]; Protocol Last Admin: 01/25/20 10:34 Dose: 6 units Documented by: Lisinopril (Zestril) 40 mg PO DAILY [facility] Last Admin: 01/25/20 10:31 Dose: 40 mg Documented by: Melatonin (Melatonin) 3 mg PO QHS PRN PRN PRN Reason: INSOMNIA Metoprolol Succinate (Toprol Xl (Beta Valente)) 25 mg PO DAILY [facility] Last Admin: 01/25/20 10:31 Dose: 25 mg Documented by: Morphine Sulfate () 4 mg IV Q3H PRN PRN PRN Reason: Pain Score 6-10/10 Nitroglycerin (Nitrostat) 0.4 mg SUBLINGUAL Q5M PRN PRN Reason: CARDIAC/CHEST PAIN Nutritional Formula ([place] Flavor) [facility] Admin: 01/25/20 09:39 Dose: Not Given Documented by: Ondansetron HCl (Zofran) 4 mg IV Q8H PRN PRN PRN Reason: NAUSEA/VOMITING Oxycodone HCl (Oxyir) 5 mg PO Q4H PRN PRN PRN Reason: Pain Score 4-5/10 Last Admin: 01/25/20 07:10 Dose: 5 mg Documented by: Promethazine HCl (Phenergan) 25 mg IM Q6H PRN PRN PRN Reason: Breakthrough nausea/vomiting Senna/Docusate Sodium (Senokot-S, Michelle-Colace) 2 tablet PO BID PRN PRN PRN Reason: Constipation Sodium Chloride () 10 - 40 ml IV UD PRN PRN Reason: SALINE FLUSH Last Admin: 01/24/20 05:14 Dose: 10 ml Documented by: Discharge Diet: 1800 Calorie Control Diet Discharge Activity: May Shower - use shower bag to keep surgical site clean and dry, Use Walker Weight Bearing Status: Partial weight bearing - heel weightbear for transfers with surgical shoe Keep extremity elevated above heart level: Right Leg Call your doctor if your incision/area has: Continuous Slow Oozing, Sudden Increased Bleeding, Increased Pain/ Swelling, Increased Redness, Foul Smelling Discharge, Swelling at the incision site Call your doctor if you observe: Fever of 101 or Higher, Calf discomfort, Uncontrolled pain Cleanse incision/area with: Keep Dressing Clean & Dry Home Medications: Medications to take at Discharge albuterol sulfate 90 mcg/actuation aerosol inhaler 1 - 2 puff INHALATION Q6H PRN #8.5 g 08/04/19 Acetaminophen 500 mg PO Q6H PRN 09/13/19 Amlodipine Besylate [Norvasc] 10 mg PO DAILY 01/23/20 Dulaglutide [Trulicity] 1.5 mg SUBCUT QWEEK 01/23/20 Glimepiride 4 mg PO QAM 01/23/20 Hydrochlorothiazide [Hctz] 25 mg PO DAILY 01/23/20 Hydrocortisone 1 applic TOPICAL BID 01/23/20 Lisinopril 40 mg PO DAILY 01/23/20 Metformin HCl 1,000 mg PO BID 01/23/20 Metoprolol Succinate [Toprol Xl] 25 mg PO DAILY 01/23/20 Amoxicillin/Potassium Clav [Augmentin 875-125 Tablet] 1 ea PO BID #10 tab 01/25/20 Doxycycline 100 mg PO BID #10 cap 01/25/20 Following Prescrptions Were Given to Patient: Amoxicillin/Potassium Clav [Augmentin 875-125 Tablet] 1 ea PO BID #10 tab Transmission Status: [id number] Doxycycline 100 mg PO BID #10 cap Transmission Status: [facility] #[id number] Primary Care Physician: Gavin Raymundo MD [Primary Care Provider] - Please follow up with your Primary Care Physician in: IN 1-2 WEEKS Please Follow Up With: Genevieve John DPM When: [facility]. Call [phone] sooner if questions/concerns. Disposition: Home Minutes spent on discharge:: 35 Patient Condition:: Stable Medical Necessity - Tobacco Use Smoking Status: Current every day smoker Meaningful Use Info Meaningful Use Diagnoses (Choose all that apply): None applicable Inpatient E&M: 06336 Disch Hosp
[2020-01-25 11:17] LABS: Vancomycin, Trough Level 13.2 ug/mL (5.0-15.0)
[2020-01-25 12:00] LABS: Bedside Glucose 268 mg/dL (70-110)
--- NOTE | 2020-01-25 12:56 | CASEMGMT ---
ASHLEY PAZ discussed discharge planning with patient. Per patient, hand developer does not want dressing changed [facility] Patient is declining need for HHC at this time. Patient states that he has access to a walker at his apartment.
[2020-01-25 13:08] VITALS: BP 140/81; PULSE 93; RESP 18; TEMP 36.9; O2SAT 94
--- NOTE | 2020-01-25 15:03 | PHA.DC.MC ---
Pharmacy Service has performed discharge medication reconciliation and counseling for this patient. 1. DOXYCYCLINE 100MG PO BID X5 DAYS 2. AUGMENTIN 875/125MG PO BID X5 DAYS The patient's discharge medication list was reviewed for discrepancies and discrepancies were resolved. Home Medications albuterol sulfate 90 mcg/actuation aerosol inhaler 1 - 2 puff INHALATION Q6H PRN #8.5 g 08/04/19 Acetaminophen 500 mg PO Q6H PRN 09/13/19 Amlodipine Besylate [Norvasc] 10 mg PO DAILY 01/23/20 Dulaglutide [Trulicity] 1.5 mg SUBCUT QWEEK 01/23/20 Glimepiride 4 mg PO QAM 01/23/20 Hydrochlorothiazide [Hctz] 25 mg PO DAILY 01/23/20 Hydrocortisone 1 applic TOPICAL BID 01/23/20 Lisinopril 40 mg PO DAILY 01/23/20 Metformin HCl 1,000 mg PO BID 01/23/20 Metoprolol Succinate [Toprol Xl] 25 mg PO DAILY 01/23/20 Amoxicillin/Potassium Clav [Augmentin 875-125 Tablet] 1 ea PO BID #10 tab 01/25/20 Doxycycline 100 mg PO BID #10 cap 01/25/20 The patient was counseled on the following discharge medications and changes in medications for homegoing were reviewed. The Reason for Use, instructions for use, and potential side effects were reviewed for all new medications. The patient's questions regarding all of their medications were answered. The patient was able to verbally demonstrate an understanding of their discharge medications. Patient counseled by pharmacy stock clerkMicheal
--- NOTE | 2020-01-26 16:45 | CASEMGMT ---
RN CM Discharge Follow-up Phone Call: MARLIN: Indy Strata: 3 Call Date: 01/26/20 Discharge Date: 01/25/20 Time of Call: [id number] Duration: Admitting Diagnosis: Osteomyelitis of the toe RN CM attempted to complete follow-up phone call after recent hospitalization. No answer, voice mail box full and unable to leave message.
== END 2020-01-25 13:14 | disposition home or self-care (01) | DRG 314 ==
LOC: ED 11:06 → MS3 11:18
PROVIDERS: Podiatrist; Admitting Provider Internal Medicine; Emergency Provider Emergency Medicine; PCP Internal Medicine; Visit Provider Internal Medicine
PROC: 0Y6R0Z1 Detachment at Right 2nd Toe, High, Open Approach (ICD-10-PCS; principal; 2020-01-24 07:15)
DX: M86.9 Osteomyelitis, unspecified (principal); E11.628 Type 2 diabetes mellitus with other skin complications; E11.42 Type 2 diabetes mellitus with diabetic polyneuropathy; L03.115 Cellulitis of right lower limb; E11.621 Type 2 diabetes mellitus with foot ulcer; L97.514 Non-pressure chronic ulcer of other part of right foot with necrosis of bone; L85.3 Xerosis cutis; D69.6 Thrombocytopenia, unspecified; G47.30 Sleep apnea, unspecified; M19.90 Unspecified osteoarthritis, unspecified site; R60.0 Localized edema; I10 Essential (primary) hypertension; M20.40 Other hammer toe(s) (acquired), unspecified foot; K76.0 Fatty (change of) liver, not elsewhere classified; F17.200 Nicotine dependence, unspecified, uncomplicated; E11.69 Type 2 diabetes mellitus with other specified complication; E66.01 Morbid (severe) obesity due to excess calories; Z68.43 Body mass index [BMI] 50.0-59.9, adult; Z83.3 Family history of diabetes mellitus; Z82.49 Family history of ischemic heart disease and other diseases of the circulatory system
CPT/HCPCS: 36415; 73620; 73630; 76000; 80048; 80053; 80076; 80202; 82962; 83036; 84100; 84134; 85025; 85652; 86140; 86141; 87015; 87040; 87070; 87075; 87076; 87077; 87102; 87116; 87186; 87205; 87206; 87635; 88304; 88305; 88311; 93005; 97802; 99284; 99406; G2023; J7030; J7040; J7050; A4216; J0696; U0003

== ENCOUNTER → 2020-03-25 10:37 | Outpatient (CLI) | payer MEDICAID, SELFPAY ==
[2020-02-05 08:41] VITALS: BMI 55.2
--- NOTE | 2020-03-25 10:41 | MRI_ITS ---
STUDY: MRI LEFT FOREFOOT WITHOUT CONTRAST REASON FOR EXAM: Nonhealing area at the base of the first and second toes, question residual metal foreign body postop attempted removal. TECHNIQUE: Standardized fat and water weighted pulse sequences were obtained in all 3 orthogonal planes. COMPARISON: Radiographs 09/18/2019. FINDINGS: Although there is image degradation secondary to patient motion, there is still significant diagnostically useful information available from this examination. Normal metatarsophalangeal joint of the hallux. Normal tibial and fibular sesamoids, with normal sesamoids-first metatarsal articulations. Normal interphalangeal joint of the hallux. Normal proximal and distal phalanges of the great toe. Normal medial and lateral heads of the flexor hallucis brevis tendons. Normal flexor and extensor hallucis longus tendons. Normal second through fourth metatarsophalangeal (MTP) joints. Normal interphalangeal joints of the second through fourth toes. Normal proximal, middle and distal phalanges of the second through fourth toes. There is amputation of the fifth digit at the level of the metacarpophalangeal joint. There are hammertoe deformities. Normal first through fourth intermetatarsal spaces. Normal flexor and extensor tendons of the second through fourth toes. Normal visualized metatarsi. Normal intrinsic muscles of the forefoot. There is mild edema in the dorsal subcutis adipose space. There is no focal fluid collection to indicate soft tissue abscess. There is no demonstrated signal void to indicate foreign body. MRI/Lower Ext/No Jt/w/o IMPRESSION: Mild edema in the dorsal subcutis adipose space. No demonstrated soft tissue abscess, foreign body or osteomyelitis. Electronically Signed: Rodney Benjamin MD at 12:47 EDT Tel , Service support ,
== END ==
PROVIDERS: PCP Internal Medicine; Referring Provider Podiatrist; Visit Provider Podiatrist
DX: L97.529 Non-pressure chronic ulcer of other part of left foot with unspecified severity (principal)
CPT/HCPCS: 73718

== ENCOUNTER 2020-07-16 12:00 | Inpatient (IN) | payer MEDICAID, SELFPAY ==
[2020-02-05 08:41] VITALS: BMI 55.2
[2020-07-16 12:01] VITALS: BP 162/115; PULSE 129; RESP 17; TEMP 35.8; O2SAT 95; BMI 51.0
--- NOTE | 2020-07-16 12:12 | ED.DCSUM_ITS ---
History of Present Illness Chief Complaint: Lower Extremity Injury Informant: Patient Narrative: 2-year-old male with history of diabetic foot ulcer on his right foot presents for pain and swelling in the dorsum of his right foot. He states that his previous ulcer had been improving until last week. Today he states there was a lot of blood came out of the ulcer and it ruptured. He has pain with ambulation. He denies systemic signs or symptoms. He states he sees patient for podiatry. He has not called his user interface developer. He has not been on any antibiotics. - Past Medical History (1) Osteomyelitis of toe of right foot Status: Chronic (2) Cellulitis of foot, left Status: Deleted (3) Hyperglycemia due to type 2 diabetes mellitus Status: Deleted Past Medical History - Allergies and Home Meds Allergies/Adverse Reactions: Allergies ketorolac [From Toradol] Adverse Reaction (Verified 07/16/20 12:01) Upset Stomach NSAIDS (Non-Steroidal Anti-Inflamma Adverse Reaction (Verified 07/16/20 12:01) Upset Stomach Prior records reviewed: Yes Past Medical History: - - Reviewed in problem list Surgical History: - - Amando fundoplication, cholecystectomy. Lives: Alone Smoking Status: Current every day smoker Alcohol: None Drugs: None - Family History Maternal Family History: Family History (Last Reviewed 07/16/20 @ 16:[address] Mc Gonzales DO) Mother Hypertension Diabetes Heart disease Sister Hypertension Diabetes Crohns disease Brother Diabetes Paternal Family History: Family History (Last Reviewed 07/16/20 @ 16:[address] Mc Gonzales DO) Mother Hypertension Diabetes Heart disease Sister Hypertension Diabetes Crohns disease Brother Diabetes Family History: Reports: - - Denies known paternal medical history including cardiac history. Review of Systems General: Denies: Chills, Fever, Sweats Eyes: Denies: Visual changes - bilaterally, Diplopia ENT: Denies: Rhinorrhea, Sore throat Cardiovascular: Denies: Chest pain, Palpitations Respiratory: Denies: Dyspnea, Cough, Dyspnea on exertion Gastrointestinal: Denies: Abdominal pain, Nausea, Vomiting, Diarrhea, Melena, Hematochezia Genitourinary: Denies: Dysuria, Hematuria, Frequency Musculoskeletal: Reports: Swelling - Right foot, Extremity Pain - Right foot Skin: Reports: Wounds - Ulceration on undersurface of right foot., -. Denies: Rash Neurological: Denies: Headache, Weakness Physical Exam Vital Signs/Narrative: Vital Signs Temp Pulse Resp BP Pulse Ox 07/16/20 12:01 96.4 F L 129 H 17 162/115 H 95 General: Well developed, Obese, Unkempt Head: Normocephalic, Atraumatic Eyes: Perrl, EOMI ENT: Moist mucous membranes, No rhinorrhea Cardiovascular: Regular rate, Regular rhythm Respiratory: No distress, CTA bilaterally Extremities: Tenderness - Right foot plantar surface, - - Right foot is tender to palpation on the plantar surface. There is a 3 cm stage III ulcer on the distal plantar surface. Does not appear to be any drainage. No crepitance.. Negative for: Calf Tenderness Skin: Negative for: Cyanosis, Diaphoresis Neurological: Alert, Oriented x3 Psychological: Normal affect, Normal Mood Diagnostic/Tx/Re-eval Clinical Impression(s) from Imaging Studies Foot X-Ray 07/16/20 12:12 IMPRESSION: Status post partial dictation the second toe. This is unchanged. Destruction of the distal portion of the fourth metatarsal as well as the proximal pharynx of the fourth toe. Minimal resorptive changes at the head of the fifth metatarsal. Soft tissue swelling. Ulcerated lesion along the plantar aspect of the foot at the fourth and fifth metatarsal phalangeal joints. Electronically Signed: Jeronimo Gomez, at 13:21 EST , Service support , Laboratory Data 07/16/20 07/16/20 13:16 13:16 WBC 9.7 RBC 5.71 Hgb 14.7 Hct 46.9 MCV 82.1 MCH 25.7 L MCHC 31.3 L RDW Std Deviation 41.1 RDW Coeff of Maria Fernanda 13.6 Plt Count 121 L MPV 11.8 Immature Gran % (Auto) 0.500 Neut % (Auto) 78.3 H Lymph % (Auto) 12.9 L [place] % (Auto) 6.8 Eos % (Auto) 1.1 Baso % (Auto) 0.4 Absolute Neuts (auto) 7.6 Absolute Lymphs (auto) 1.25 Nucleated RBC % 0 ESR 85 H Sodium 135 L Potassium 3.9 Chloride 99 Carbon Dioxide 30.0 Anion Gap 6 BUN 7 Creatinine 0.87 Estim Creat Clear Calc 108.19 Est GFR (MDRD) Af Amer 119 Est GFR (MDRD) Non-Af 98 BUN/Creatinine Ratio 8.0 L Glucose 260 H Calcium 8.7 C-React Prot Ext Range 61.10 H - Medical Decision Making 50-year-old male presenting with right foot pain and worsening ulceration on the right foot. X-ray of the right foot does show new findings of bony destruction of the fourth metatarsal and phalanx as well as the fifth phalanx. Patient was discussed with Dr. Ramos felt the patient need to be admitted for IV antibiotics. He will be on consult. Patient's lab work does not show any leukocytosis. His sed rate and CRP are elevated. Function is normal. Patient was given vancomycin and Zosyn in the ED. He will be admitted for osteomyelitis. Ration: 1. Osteomyelitis fourth metatarsal and phalanx 2. Osteomyelitis fifth metatarsal ED Disposition - Plan for ED Patient:
--- NOTE | 2020-07-16 12:12 | RAD_ITS ---
STUDY: X-RAY - RIGHT FOOT CLINICAL: Male, 50 years old. Open wound on bottom of foot, pain. TECHNIQUE: 3 view(s) of the foot. COMPARISON: Comparison is made with prior study dated 01/23/2020. FINDINGS: Small plantar spurs. Normal visualized subtalar, talonavicular, calcaneocuboid, tarsal and tarsometatarsal articulations. At this time, there is evidence of a destruction of the distal aspect of the fourth metatarsal. Minimal resorption of the distal aspect of the fifth metatarsal. Normal metatarsophalangeal joint of the great toe. Normal tibial and fibular sesamoid bones. Normal interphalangeal joint of the great toe. Normal phalanges of the great toe. There is destruction of the proximal phalanx of the fourth toe. The patient is status post amputation of the second toe to the proximal portion of the proximal phalanx of the second toe. Soft tissue swelling. There is evidence of an ulcerated lesion underlying the plantar aspect of the fourth and fifth metatarsophalangeal joints. RAD/Foot min 3 Views IMPRESSION: Status post partial dictation the second toe. This is unchanged. Destruction of the distal portion of the fourth metatarsal as well as the proximal pharynx of the fourth toe. Minimal resorptive changes at the head of the fifth metatarsal. Soft tissue swelling. Ulcerated lesion along the plantar aspect of the foot at the fourth and fifth metatarsal phalangeal joints. Electronically Signed: Jeronimo Gomez, at 13:21 EST , Service support ,
[2020-07-16] MEDS: Ondansetron 4 MG/2 ML Vial IM (13:11)
[2020-07-16] MEDS: Morphine 4 MG/ML Syringe IV (13:12)
[2020-07-16 13:22] VITALS: BP 115/68; PULSE 116; RESP 20; TEMP 35.8; O2SAT 94
[2020-07-16 13:57] LABS: Anion Gap 6 (5-15); BUN 7 mg/dL (7-18); Calcium,Total 8.7 mg/dL (8.5-10.1); Chloride 99 mmol/L (98-107); Creatinine, Serum 0.87 mg/dL (0.70-1.30); EST Glomerular Filtration Rate 98 mL/min (>60); Est Glom Filt Rate - Afr Amer 119 mL/min (>60); Estimated Creatinine Clearance 108.19 ml/min; Glucose 260 mg/dL (74-106); Potassium 3.9 mmol/L (3.5-5.1); Sodium Level 135 mmol/L (136-145)
[2020-07-16 13:58] LABS: Erythrocyte Sedimentation Rate 85 mm/hr (0-20)
[2020-07-16 14:00] LABS: Absolute Lymphocyte Count 1.25 X10^3/uL (0.83-4.51); Absolute Neutrophil Count 7.6 X10^3/uL (2.0-7.7); Basophil# 0.04 X10^3/uL; Basophil% 0.4 % (0-1); Eosinophil# 0.11 X10^3/uL; Eosinophils% 1.1 % (0-5); Hematocrit 46.9 % (40-54); Hemoglobin 14.7 g/dL (13.0-16.5); Lymphocyte # 1.25 X10^3/ul (4.0); Lymphocyte % 12.9 % (19-41); Mean Corp Hgb Conc 31.3 g/dL (32-36); Mean Corpuscular Hgb 25.7 pg (27.0-32.0); Mean Corpuscular Volume 82.1 fL (80-94); Mean Platelet Vol. 11.8 fl (6.2-12.0); Monocyte# 0.66 X10^3/uL; Monocyte% 6.8 % (0-10); NRBC Flagged by Analyzer 0 % (0-5); Neutrophil # 7.57 X10^3/uL (2.7-7.7); Neutrophil % 78.3 % (47-70); Platelet Count 121 K/mm3 (150-450); RBC Distribution Width CV 13.6 % (11.6-14.6); RBC Distribution Width SD 41.1 fl (35.1-43.9); Red Blood Count 5.71 M/mm3 (4.6-6.2); White Blood Count 9.7 K/mm3 (4.4-11.0)
--- NOTE | 2020-07-16 15:42 | PCM.HP.STD ---
<Amanda Newman FELT HAT MELLOWING MACHINE OPERATOR - Last Filed: 07/16/20 16:08> Problem List (1) Osteomyelitis of toe of right foot Status: Chronic (2) KRYSTAL (obstructive sleep apnea) Status: Chronic (3) Sinus tachycardia seen on monitoring engineer Status: Resolved (4) Dry skin dermatitis Status: Chronic (5) Thrombocytopenia Status: Chronic (6) Osteoarthritis Status: Chronic (7) Bilateral lower extremity edema Status: Chronic (8) Type 2 diabetes mellitus Status: Chronic (9) History of esophageal disorder Status: Chronic (10) Hypertension Status: Chronic History of Present Illness Date of Admission: 07/16/20 Chief Complaint: Right foot wound, pain. The patient is a 50 year old M who presents to the emergency room due to worsening right foot wound and pain. Patient states he has had a wound on the plantar aspect of his right foot for a while now which has worsened over the past week and today busted open. Patient reports increased drainage and significant pain. He denies fever, chills. Denies nausea, vomiting. Denies other associated symptoms or complaints. Denies other wound areas. He has a past medical history of type 2 diabetes mellitus, hypertension, morbid obesity, tobacco dependence, KRYSTAL. He has history of multiple foot wounds and is status post amputation on right second toe and left fifth digit. Past Medical History Past Medical History (Chronic Problems): Chronic Problems (Last Reviewed 02/05/20 @ 08:36 by Kiki Ng) Osteomyelitis of toe of right foot (Chronic) KRYSTAL (obstructive sleep apnea) (Chronic) Dry skin dermatitis (Chronic) Thrombocytopenia (Chronic) Osteoarthritis (Chronic) Bilateral lower extremity edema (Chronic) Type 2 diabetes mellitus (Chronic) History of esophageal disorder (Chronic) Hypertension (Chronic) Medical History: Medical History (Last Reviewed 02/05/20 @ 08:36 by Kiki Ng) History of esophageal disorder (Chronic) Z87.19 Hypertension (Chronic) I10 Amputation of toe of left foot S98.132A 07/2019, pinkie toe DVT (deep venous thrombosis) (Resolved) I82.409 History of gallstones (Resolved) Z87.19 Allergies ketorolac [From Toradol] Adverse Reaction (Verified 07/16/20 12:01) Upset Stomach NSAIDS (Non-Steroidal Anti-Inflamma Adverse Reaction (Verified 07/16/20 12:01) Upset Stomach Home Medications: Ambulatory Orders Medication Instructions Recorded Dulaglutide [Trulicity] 1.5 mg SUBCUT QWEEK 01/23/20 Metformin HCl 1,000 mg PO BID 01/23/20 Surgical History: - - Amando fundoplication, cholecystectomy, toe amputations x2. Psychiatric History: No pertinent psych hx Lives: Alone Smoking Status: Current every day smoker Alcohol: None Drugs: None - *Family History Maternal Family History: Family History (Last Reviewed 07/16/20 @ 15:48 by Amanda Newman NP, FELT HAT MELLOWING MACHINE OPERATOR-C) Mother Hypertension Diabetes Heart disease Sister Hypertension Diabetes Crohns disease Brother Diabetes Paternal Family History: Family History (Last Reviewed 07/16/20 @ 15:48 by Amanda Newman NP, FELT HAT MELLOWING MACHINE OPERATOR-C) Mother Hypertension Diabetes Heart disease Sister Hypertension Diabetes Crohns disease Brother Diabetes History Items: - - Denies known paternal medical history including cardiac history. Review of Systems Constitutional: Denies: Chills, Fever, Weight Change HEENT: Denies: Head Aches, Sinus Congestion, Sinus Drainage Cardiovascular: Denies: Chest Pain, Palpitations Respiratory: Denies: Cough, Shortness of breath at rest, Sputum production Gastrointestinal: Denies: Abdominal Pain, Nausea, Vomiting Genitourinary: Denies: Dysuria Musculoskeletal: Reports: - - Right foot pain. Denies: Joint Pain, Joint Tenderness Skin: Reports: - - Right foot wound Neurological: Denies: Numbness, Tingling, Focal weakness Psychiatric: Denies: Anxiety, Depression, Homicidal Ideations, Suicidal Ideations Hematologic/ Lymphatic: Denies: Easy Bruising, Easy Bleeding VTE Information - Inpt Only VTE Present on Admission: No VTE Mechan Device Prophylaxis: None VTE Pharm Prophylaxis ordered?: Yes - Physical Exam Vitals/I&O's: Vital Signs Temp Pulse Resp BP Pulse Ox 96.4 F L 116 H 20 H 115/68 94 07/16/20 13:22 07/16/20 13:22 07/16/20 13:22 07/16/20 13:22 07/16/20 13:22 Oxygen Delivery Method Room Air Weight: 365 lb 15.477 oz Body Mass Index (BMI) 51.0 Finger Stick Blood Glucose 154 General: Alert, Oriented x3, Cooperative HEENT: Atraumatic, PERRLA, EOMI, Normocephalic Neck: Supple, No JVD, Negative Carotid Bruits Lungs: Clear to auscultation, Normal air movement Cardiovascular: Regular rate, No murmurs Abdomen: Bowel Sounds Present, Soft, Non Tender, Non-Distended, Obese Extremities: No clubbing, No cyanosis, Capillary Refill Less than 3 Seconds, Edema - Chronic lower extremity edema Skin: No rashes, No breakdown, - - Significant dryness bilateral lower extremities. Right foot wound on the plantar aspect of the foot with foul-smelling drainage. Musculoskeletal: No Tenderness to Palpation of Joints or Extremities Neurological: Cranial nerves II-XII grossly intact, Neuro grossly intact Psych/Mental Status: Normal Affect, Appropriate Laboratory Results 07/16/20 13:16: WBC 9.7, RBC 5.71, Hgb 14.7, Hct 46.9, MCV 82.1, MCH 25.7 L, MCHC 31.3 L, RDW Std Deviation 41.1, RDW Coeff of Maria Fernanda 13.6, Plt Count 121 L, MPV 11.8, Immature Gran % (Auto) 0.500, Neut % (Auto) 78.3 H, Lymph % (Auto) 12.9 L, [place] % (Auto) 6.8, Eos % (Auto) 1.1, Baso % (Auto) 0.4, Absolute Neuts (auto) 7.6, Absolute Lymphs (auto) 1.25, Nucleated RBC % 0, ESR 85 H 07/16/20 13:16: Sodium 135 L, Potassium 3.9, Chloride 99, Carbon Dioxide 30.0, Anion Gap 6, BUN 7, Creatinine 0.87, Estim Creat Clear Calc 108.19, Est GFR (MDRD) Af Amer 119, Est GFR (MDRD) Non-Af 98, BUN/Creatinine Ratio 8.0 L, Glucose 260 H, Calcium 8.7, C-React Prot Ext Range 61.10 H Current Medications Piperacillin Sod/Tazobactam (Sod 3.375 gm/ Sodium Chloride) 50 mls @ 100 mls/hr IV X1 ONE Stop: 07/16/20 15:56 Vancomycin HCl 2,000 mg/ (Sodium Chloride) 540 mls @ 250 mls/hr IV X1 ONE Stop: 07/16/20 18:24 Assessment/Plan All Active Problems (Last Reviewed 02/05/20 @ 08:36 by Kiki Ng) Sinus tachycardia seen on monitoring engineer (Resolved) DVT (deep venous thrombosis) (Resolved) History of gallstones (Resolved) 1. Infected nonhealing chronic right plantar diabetic foot ulcer with probable osteomyelitis-obtain wound cultures. Podiatry and infectious disease consult. Obtain ABIs. Begin Vancomycin, zosyn. Wound RN consult. 2. Type 2 diabetes mellitus-hold oral regimen. Hemoglobin A1c January 28 2011%. Accu-Cheks with sliding scale insulin. Repeat hemoglobin A1c. 3. Hypertension-appears he was previously on metoprolol and lisinopril however is no longer taking. He has not had recent follow-up with PCP. Initiate lisinopril 10 mg daily. 4. Morbid obesity-encouraged diet lifestyle applications. 5. Tobacco dependence-encourage cessation. Declines nicotine replacement patch. DVT prophylaxis-Lovenox subcu This patient was seen by PAT Hunt under the supervision of Dr. Gonzales. <Mc Gonzales - Last Filed: 07/16/20 16:33> Problem List (1) Osteomyelitis of toe of right foot Status: Chronic (2) KRYSTAL (obstructive sleep apnea) Status: Chronic (3) Sinus tachycardia seen on monitoring engineer Status: Resolved (4) Dry skin dermatitis Status: Chronic (5) Thrombocytopenia Status: Chronic (6) Osteoarthritis Status: Chronic (7) Bilateral lower extremity edema Status: Chronic (8) Type 2 diabetes mellitus Status: Chronic (9) History of esophageal disorder Status: Chronic (10) Hypertension Status: Chronic History of Present Illness The patient is a 50 year old M [place] with a right foot wound and pain. Patient was found to have osteomyelitis of the fourth and fifth digits of the right foot. Patient would be admitted for further evaluation of this right foot wound and osteomyelitis. [] Past Medical History Medical History: Medical History (Last Reviewed 07/16/20 @ 16:[address] Mc Gonzales, DO) History of esophageal disorder (Chronic) Z87.19 Hypertension (Chronic) I10 Amputation of toe of left foot S98.132A 07/2019, pinkie toe DVT (deep venous thrombosis) (Resolved) I82.409 History of gallstones (Resolved) Z87.19 Allergies ketorolac [From Toradol] Adverse Reaction (Verified 07/16/20 12:01) Upset Stomach NSAIDS (Non-Steroidal Anti-Inflamma Adverse Reaction (Verified 07/16/20 12:01) Upset Stomach Surgical History: - Psychiatric History: No pertinent psych hx Lives: Alone Smoking Status: Current every day smoker Alcohol: None Drugs: None - *Family History Maternal Family History: Family History (Last Reviewed 07/16/20 @ 16:[address] Mc Gonzales DO) Mother Hypertension Diabetes Heart disease Sister Hypertension Diabetes Crohns disease Brother Diabetes Paternal Family History: Family History (Last Reviewed 07/16/20 @ 16:[address] Mc Gonzales DO) Mother Hypertension Diabetes Heart disease Sister Hypertension Diabetes Crohns disease Brother Diabetes Review of Systems Constitutional: Denies: Chills, Fever, Weight Change HEENT: Denies: Head Aches, Sinus Congestion, Sinus Drainage Cardiovascular: Denies: Chest Pain, Palpitations Respiratory: Denies: Cough, Shortness of breath at rest Gastrointestinal: Denies: Abdominal Pain, Nausea, Vomiting Genitourinary: Denies: Dysuria Musculoskeletal: Reports: -. Denies: Joint Pain, Joint Tenderness Skin: Reports: - Neurological: Denies: Focal weakness, Numbness, Tingling Psychiatric: Denies: Anxiety, Depression, Homicidal Ideations, Suicidal Ideations Hematologic/ Lymphatic: Denies: Easy Bruising, Easy Bleeding VTE Information - Inpt Only VTE Present on Admission: No VTE Mechan Device Prophylaxis: None VTE Pharm Prophylaxis ordered?: Yes - Physical Exam Vitals/I&O's: Vital Signs Temp Pulse Resp BP Pulse Ox 36.9 C 97 18 157/67 H 95 07/16/20 16:03 07/16/20 16:03 07/16/20 16:03 07/16/20 16:03 07/16/20 16:03 Oxygen Delivery Method Room Air Weight: 166 kg Body Mass Index (BMI) 51.0 Finger Stick Blood Glucose 154 General: Alert, Cooperative HEENT: Atraumatic, Normocephalic Lungs: Clear to auscultation, Normal air movement Cardiovascular: Regular rate, No murmurs Abdomen: Bowel Sounds Present, Soft, Non Tender, Non-Distended, Obese Extremities: No clubbing, No cyanosis, Capillary Refill Less than 3 Seconds, Edema, Peripheral Pulses Normal Skin: No rashes, No breakdown, - Neurological: Cranial nerves II-XII grossly intact, Neuro grossly intact Psych/Mental Status: Normal Affect, Appropriate Laboratory Results 07/16/20 13:16: WBC 9.7, RBC 5.71, Hgb 14.7, Hct 46.9, MCV 82.1, MCH 25.7 L, MCHC 31.3 L, RDW Std Deviation 41.1, RDW Coeff of Maria Fernanda 13.6, Plt Count 121 L, MPV 11.8, Immature Gran % (Auto) 0.500, Neut % (Auto) 78.3 H, Lymph % (Auto) 12.9 L, [place] % (Auto) 6.8, Eos % (Auto) 1.1, Baso % (Auto) 0.4, Absolute Neuts (auto) 7.6, Absolute Lymphs (auto) 1.25, Nucleated RBC % 0, ESR 85 H 07/16/20 13:16: Sodium 135 L, Potassium 3.9, Chloride 99, Carbon Dioxide 30.0, Anion Gap 6, BUN 7, Creatinine 0.87, Estim Creat Clear Calc 108.19, Est GFR (MDRD) Af Amer 119, Est GFR (MDRD) Non-Af 98, BUN/Creatinine Ratio 8.0 L, Glucose 260 H, Calcium 8.7, C-React Prot Ext Range 61.10 H Current Medications Vancomycin HCl 2,000 mg/ (Sodium Chloride) 540 mls @ 250 mls/hr IV X1 ONE Stop: 07/16/20 18:24 Sodium Chloride (0.9% Saline Lock 10 Ml Syringe) 10 - 40 ml IV UD PRN PRN Reason: SALINE FLUSH Assessment/Plan Patient seen and examined independently. Data reviewed. I agree with the above note by the nurse practitioner. 1. Right fourth and fifth MTP osteomyelitis: Discussed with patient that he will eventually need amputation. Will need to continue with IV antibiotics with vancomycin and Pipracil/tazobactam. Check ankle-brachial indices. Podiatry and infectious disease consultation. 2. Diabetes mellitus type 2: Insulin glargine and sliding scale insulin monitor. Previous A1c was 11 from January 23, 2020. 3. VTE prophylaxis with enoxaparin. Inpatient E&M: 78202 In Hosp L3
[2020-07-16 16:03] VITALS: BP 157/67; PULSE 97; RESP 17; RESP 18; TEMP 36.9; O2SAT 95
[2020-07-16 16:16] VITALS: BMI 51.0
[2020-07-16 17:26] VITALS: BP 145/79; PULSE 91; RESP 18; TEMP 36.8; O2SAT 96
[2020-07-16 17:28] VITALS: BMI 50.7
--- NOTE | 2020-07-16 17:28 | PCM.RX.CS ---
Consult Pharmacy has been consulted to manage selected antiobiotic: Vancomycin Type of Consult: New start Suspected Infection: Osteomyelitis Prior Doses of Antibiotics Received/Current Regimen: 2000MG X1 IN E.R. STARTING AT 16:48 TODAY Labs: Sodium 135 mmol/L (136-145) L 07/16/20 13:16 Potassium 3.9 mmol/L (3.5-5.1) 07/16/20 13:16 Chloride 99 mmol/L (98-107) 07/16/20 13:16 Carbon Dioxide 30.0 mmol/L (21.0-32.0) 07/16/20 13:16 Anion Gap 6 (5-15) 07/16/20 13:16 BUN 7 mg/dL (7-18) 07/16/20 13:16 Creatinine 0.87 mg/dL (0.70-1.30) 07/16/20 13:16 Est GFR (MDRD) Af Amer 119 mL/min (>60) 07/16/20 13:16 Est GFR (MDRD) Non-Af 98 mL/min (>60) 07/16/20 13:16 BUN/Creatinine Ratio 8.0 RATIO (10-20) L 07/16/20 13:16 Glucose 260 mg/dL (74-106) H 07/16/20 13:16 Weight used for dosin kg Estimated Creatinine Clearance: >100ML/MIN Goal Trough: 15-20 mcg/mL Pharmacy Plan for Drug Dosing: Starting 8 hours after the E.R. dose, continue with 1500mg IV q8h per [facility] dosing protocol. Will check the trough before the 4th total dose tomorrow. Pharmacy Service will continue to monitor and adjust dosing as required. Follow-Up Labs: Trough Vancomycin Labs to be done on [date and time ordered]: 07/17/20 16:30
[2020-07-16] MEDS: Morphine 2 MG/ML Syringe IV ×2 (17:48→21:11)
[2020-07-16] MEDS: 0.9% Saline Lock 10 ML Syringe IV ×2 (17:54→21:11)
[2020-07-16 17:57] LABS: Hemoglobin A1c 10.6 % (3.8-5.6)
[2020-07-16 18:01] LABS: Bedside Glucose 154 mg/dL (70-110)
[2020-07-16] MEDS: Insulin Lispro 100 UNIT/ML INSULN.PEN SC ×2 (18:08→22:03)
--- NOTE | 2020-07-16 18:08 | MRI_ITS ---
STUDY: MRI RIGHT FOREFOOT WITHOUT CONTRAST REASON FOR EXAM: Right chronic foot infection, diabetic, toe amputation 4 months ago. TECHNIQUE: Standardized fat and water weighted pulse sequences were obtained in all 3 orthogonal planes. COMPARISON: Radiographs 07/16/2020. FINDINGS: Although there is image degradation secondary to patient motion, there is still significant diagnostically useful information available from this examination. There is bone edema of the fourth metatarsal, fourth proximal phalanx and fourth middle phalangeal base (inversion recovery sagittal images 19-21) with corresponding decreased T1 bone marrow signal and osseous destruction of the fourth metatarsal head and fourth proximal phalanx (T1 series 7 images 21-28). There is bone edema of the fifth metatarsal and phalanges of the fifth digit (inversion recovery sagittal images 20-26) with corresponding decreased T1 bone marrow signal (T1 axial series 7 images 22-32) with pathologic fracture of the fifth metatarsal neck (T2 series 5 image 25). There is no demonstrated osteomyelitis of the first through third metatarsals or phalanges of the first and third digits. There is amputation of the second digit at the level of the proximal phalangeal diaphysis. There is edema in the subcutis adipose space and ulcerations at the plantar aspect of the forefoot and at the lateral aspect of the fifth metatarsophalangeal joint. There is no demonstrated focal fluid collection to indicate soft tissue abscess. MRI/Lower Ext/No Jt/w/o IMPRESSION: Osteomyelitis of the fourth and fifth metatarsals, phalanges of the fifth digit and fourth proximal and middle phalanges. Pathologic fracture of the fifth metatarsal neck. Electronically Signed: Rodney Benjamin MD at 7:31 EST Tel , Service support ,
--- NOTE | 2020-07-16 18:09 | ART_ITS ---
Reason For Study: Chronic ulcers Procedure A bilateral lower extremity continuous wave Doppler with analog waveform analysis,segmental pressures,and ankle brachial indexes without exercise. Left Segmental Pressures Left posterior tibial artery = 150mmHg. Left dorsalis pedis artery = 133mmHg. Left digit = 132 mmHg. The left dorsalis pedis waveforms are triphasic. The left posterior tibial artery waveforms are triphasic. Right Segmental Pressures Right brachial= 123mmHg. Right posterior tibial artery = 144mmHg. Right dorsalis pedis artery = 141mmHg. Right digit = 91 mmHg. The right dorsalis pedis waveforms are triphasic. The right posterior tibial artery waveforms are triphasic. Indices The right ankle brachial index by the dorsalis pedis is 1.15. The right ankle brachial index by the posterior tibial artery is 1.17. The right digital-brachial index is 0.74. The left ankle brachial index by the dorsalis pedis is 1.08. The left ankle brachial index by the posterior tibial artery is 1.22. The left digital-brachial index is 1.07. Interpretation Summary Triphasic Doppler waveforms are noted at ankle level bilaterally. Pulse-volume recordings appear satisfactory at all levels bilaterally. Resting ankle-brachial indices are normal bilaterally. Digital-brachial indices are normal bilaterally. There is no evidence of significant arterial occlusive disease in the lower extremities bilaterally. Ordering Physician: Jesus Ramos Referring Physician: Gavin Raymundo Performed By: Bella Evans RVT
--- NOTE | 2020-07-16 18:10 | PCM.CONS.GEN ---
Reason for Consult Date of Consultation: 07/16/20 Reason for Consultation: Right foot ulcer/infection History of Present Illness: The patient is a 50 year old male with multiple medical problems including uncontrolled diabetes presented to the ER today for worsening (chronic) ulcer right foot. He developed ulceration and I last saw him in office Mar 2020, he was no show to follow up appointment. We tried to call him multiple times and even sent him a letter advising him to follow up. He never did follow up as advised. Patient is very nonadherent. He now has much worse ulceration, with infection. Xrays with clear evidence of osteomyelitis to the 4th and 5th rays on the right foot, ESR and CRP is elevated. WBC normal, patient afebrile and otherwise relates he feels ok. He does relate to pain to the foot, patient does have hx of diabetic neuropathy. He also has hx of right 2nd toe amputation and left 5th toe amputation. Patient relates his blood sugars are not controlled, he relates he is lazy and does not take his medication. He also continues to smoke tobacco. He also has a recurrent wound on the left foot at the level of the 1st interdigital space, he relates he will heal and then re open. Past Medical History Past Medical History (Chronic Problems): Chronic Problems (Last Reviewed 07/16/20 @ 16:[address] 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 Mc Gonzales, ) History of esophageal disorder (Chronic) Z87.19 Hypertension (Chronic) I10 Amputation of toe of left foot S98.132A 07/2019, pinkie toe DVT (deep venous thrombosis) (Resolved) I82.409 History of gallstones (Resolved) Z87.19 Allergies ketorolac [From Toradol] Adverse Reaction (Verified 07/16/20 12:01) Upset Stomach NSAIDS (Non-Steroidal Anti-Inflamma Adverse Reaction (Verified 07/16/20 12:01) Upset Stomach Home Medications: Ambulatory Orders Medication Instructions Recorded Dulaglutide [Trulicity] 1.5 mg SUBCUT QWEEK 01/23/20 Metformin HCl 1,000 mg PO BID 01/23/20 Surgical History: - Psychiatric History: No pertinent psych hx Lives: Alone Smoking Status: Current every day smoker Tobacco Use: Cigarettes Alcohol: None Drugs: None - *Family History Maternal Family History: Family History (Last Reviewed 07/16/20 @ 16:[address] Mc Gonzales DO) Mother Hypertension Diabetes Heart disease Sister Hypertension Diabetes Crohns disease Brother Diabetes Paternal Family History: Family History (Last Reviewed 07/16/20 @ 16:[address] Mc Gonzales DO) Mother Hypertension Diabetes Heart disease Sister Hypertension Diabetes Crohns disease Brother Diabetes History Items: - - Denies known paternal medical history including cardiac history. Review of Systems Constitutional: Denies: Chills, Fever Gastrointestinal: Denies: Nausea, Vomiting Musculoskeletal: Reports: Foot Pain Skin: Reports: Wounds - Physical Exam Vitals/I&O's: Vital Signs Temp Pulse Resp BP Pulse Ox 98.3 F 91 18 145/79 H 96 07/16/20 17:26 07/16/20 17:26 07/16/20 17:26 07/16/20 17:26 07/16/20 17:26 Oxygen Delivery Method Room Air Weight: 164.9 kg Body Mass Index (BMI) 50.7 Finger Stick Blood Glucose 154 Intake and Output for Last 24 Hours 07/14/20 07/15/20 07/16/20 23:59 23:59 23:59 Intake Total 50 / 50 Balance 50 / 50 General: Alert, Oriented x3, Cooperative, No apparent distress Cardiovascular: - - No evidence of acute ischemia to the foot or ankle bilateral. Extremities: Capillary Refill Less than 3 Seconds, No Calf Tenderness, Edema - right foot, - - Right foot: Extensive ulceration to the 4th and 5th rays, extending sub 2nd and 3rd met heads, probes to 4th and 5th metatarsals and toes with necrosis present, there is maloder present, no visible abscess, there is edema present, no crepitus or fluctuance, no visible streaking, no blisters. Skin: - - There is ulcer down to subcutaneous tissue left foot at 1st ID space, no probe to bone or deep tissue, no evidence of infection - tissue healthy and viable. Chronic venous stasis skin changes bilateral lower extremity. Musculoskeletal: - - Patient relates to pain to the right lateral forefoot with palpation. Psych/Mental Status: Normal Affect, Alert and oriented to time, place, person, mood and affect Laboratory Results 07/16/20 13:16: WBC 9.7, RBC 5.71, Hgb 14.7, Hct 46.9, MCV 82.1, MCH 25.7 L, MCHC 31.3 L, RDW Std Deviation 41.1, RDW Coeff of Maria Fernanda 13.6, Plt Count 121 L, MPV 11.8, Immature Gran % (Auto) 0.500, Neut % (Auto) 78.3 H, Lymph % (Auto) 12.9 L, Republic % (Auto) 6.8, Eos % (Auto) 1.1, Baso % (Auto) 0.4, Absolute Neuts (auto) 7.6, Absolute Lymphs (auto) 1.25, Nucleated RBC % 0, ESR 85 H 07/16/20 13:16: Sodium 135 L, Potassium 3.9, Chloride 99, Carbon Dioxide 30.0, Anion Gap 6, BUN 7, Creatinine 0.87, Estim Creat Clear Calc 108.19, Est GFR (MDRD) Af Amer 119, Est GFR (MDRD) Non-Af 98, BUN/Creatinine Ratio 8.0 L, Glucose 260 H, Calcium 8.7, C-React Prot Ext Range 61.10 H 07/16/20 13:16: Hemoglobin A1c 10.6 H 07/16/20 17:56: POC Glucose 154 H Current Medications Acetaminophen (Acetaminophen 325 Mg Tablet) 650 mg PO Q6H PRN PRN PRN Reason: Pain Score 1-10/Temp > 100.7 F Dextrose (Dextrose 50%-Water 25 Gm/50 Ml Disp.Syrin) 0 gm IV X1 PRN; Protocol PRN Reason: Hypoglycemia Enoxaparin Sodium (Enoxaparin 40 Mg/0.4 Ml Syringe) 40 mg SC DAILY BLAIR Glucagon (Glucagon 1 Mg/Ml Syringe) 1 mg IM .X1 PRN PRN Reason: Hypoglycemia Vancomycin HCl 2,000 mg/ (Sodium Chloride) 540 mls @ 250 mls/hr IV X1 ONE Stop: 07/16/20 18:24 Last Admin: 07/16/20 16:48 Dose: 250 mls/hr Documented by: Vancomycin IV Pharmacy to Dose (1 ea/ Sodium Chloride) 500 mls @ 250 mls/hr IV X1 PRN; Protocol PRN Reason: Rx to Dose Piperacillin Sod/Tazobactam (Sod 3.375 gm/ Sodium Chloride) 50 mls @ 12.5 mls/hr IV Q8 BLAIR Vancomycin HCl 1,500 mg/ (Sodium Chloride) 530 mls @ 250 mls/hr IV Q8H BLAIR Insulin Glargine (Insulin Glargine 100 Units/Ml Pen) 20 units SC QHS BLAIR Insulin Human Lispro (Insulin Lispro 100 Unit/Ml Insuln.Pen) 0 unit SC ACHS BLAIR; Protocol Lisinopril (Lisinopril 10 Mg Tablet) 10 mg PO DAILY BLAIR Morphine Sulfate (Morphine 2 Mg/Ml Syringe) 2 mg IV Q3H PRN PRN PRN Reason: Pain Score 6-10 Last Admin: 07/16/20 17:48 Dose: 2 mg Documented by: Ondansetron HCl (Ondansetron 4 Mg/2 Ml Vial) 4 mg IV Q8H PRN PRN PRN Reason: NAUSEA/VOMITING Oxycodone HCl (Oxycodone 5 Mg Tablet) 10 mg PO Q4H PRN PRN PRN Reason: Pain Score 4-5 Sodium Chloride (0.9% Saline Lock 10 Ml Syringe) 10 - 40 ml IV UD PRN PRN Reason: SALINE FLUSH Last Admin: 07/16/20 17:54 Dose: 10 ml Documented by: Assessment/Plan All Active Problems (Last Reviewed 07/16/20 @ 16:[address] 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 Reviewed labs and right foot xrays. There is radiographic evidence of bone destruction to the 4th and 5th toes and metatarsals. Patient will at least need a 4th and 5th ray amputation right foot, as these do not appear salvagable due to the extent of the infection. We discussed concern of possible 2nd and 3rd ray/metatarsal involvement as well, and discussed possible transmetatarsal amputation (TMA) to the right foot. MRI was ordered for further evaluation to see extent of involvement of the osteomyelitis - would like to see if 2nd and 3rd rays/metatarsals are involved - if so recommend TMA. Patient is agreeable to get MRI for further evaluation. Also new LEAS noninvasive vascular studies were ordered. Timing of surgery will be possibly Wednesday or pending further workup. Wound care to right foot in meantime: betadine, gauze, kerlix and ismael dressing changes. Patient is on board spectrum antibiotics, Vanc and Zosyn, ID has been consulted. A deep wound culture has been obtained and sent to microbiology. Left foot ulcer: no evidence of infection at this time. A left foot xray was ordered. Wound care: aquacel Ag and gauze dressing changes daily. Reviewed importance of strict blood sugar control as well as tobacco cessation to help optimize healing. Podiatry will continue to follow closely. Thank you for consultation.
--- NOTE | 2020-07-16 18:12 | RAD_ITS ---
STUDY: X-RAY - LEFT FOOT CLINICAL: Male, 50 years old. ulcer between 1st and 2nd toes TECHNIQUE: 3 view(s) of the foot. COMPARISON: 09/18/2019. FINDINGS: No significant change. Stable appearance of amputation of the fifth digit. No acute abnormalities. No fractures, dislocations, or focal destructive lesions of the bones. Normal talus, calcaneus, and tarsal bones. Degenerative changes of the visualized subtalar, talonavicular, calcaneocuboid, tarsal and tarsometatarsal articulations. Normal metatarsi. Normal metatarsophalangeal joint of the great toe. Normal tibial and fibular sesamoid bones. Normal interphalangeal joint of the great toe. Normal phalanges of the great toe. Normal second through fifth metatarsophalangeal joints. Normal interphalangeal joints and phalanges of the lesser toes. The soft tissue structures are unremarkable. No gross soft tissue air. RAD/Foot min 3 Views IMPRESSION: No definite change or acute abnormality. There has been indentation of the fifth digit. Electronically Signed: Omer Mathews MD at 19:57 EST , Service support ,
--- NOTE | 2020-07-16 18:19 | NURSING ---
Pandemic documentation Date 07/16/2020 Time 1731
[2020-07-16] MEDS: oxyCODONE 5 MG Tablet 10 MG PO (22:08)
[2020-07-16 22:10] LABS: Bedside Glucose 218 mg/dL (70-110)
[2020-07-16 23:30] VITALS: BP 129/72; PULSE 89; RESP 18; TEMP 36.3; O2SAT 92
[2020-07-17] VITALS (12 sets, daily range): BP systolic 101–171; BP diastolic 60–84; PULSE 79–92; RESP 18; TEMP 36.3–36.9; O2SAT 90–100; BMI 50.7
--- NOTE | 2020-07-17 | BON_PTH ---
PATIENT: EUSEBIA HECTOR LOC: MS3 U#:[id number] AGE/SX: 50/M ROOM: MI319 RE07/16/[address]: Dr. To Cameron MD : 1970 BED: 1 DIS: 07/23/2020 SPEC #: [id number] RECD: 07/17/20 14:00 STATUS: CHRISSY REQ #: [id number] VALENTINA: 07/17/20 00:[address]: Jesus Ramos DEPT: SURGICAL PATHOLOGY RECD BY: Dannie Dean ENTERED: 07/18/20 07:41 SP TYPE: Bone OTHR DR: DO Dr. Gavin Vazquez MD Dr. Ghasem E Ashelfah, MD Dr. Jeffrey Wunning, DPM Dr. Stoney Soto MD Tissues: A - Foot, NOS B - Bone of foot, NOS C - Bone of foot, NOS Procedures: Decalcification bone/plaque Surgery Specimen Level III Surgery Specimen Level IV Comments: @ Ordering doctor for DEC edited from to DR.JWUNNI Cora BAILEY at 07/18/20940 @ Ordering doctor for SUIV edited from to @ marianne BAILEY at 07/18/20 09 @ Submitting doctor edited from to DR.JWUNNI Cora BAILEY at 07/18/20940 HEADER OPERATION: Right foot debridement with fourth and fifth ray amputation PRE-OP DIAGNOSIS: Osteomyelitis / right foot ulcer TISSUE SUBMITTED: A - Biopsy ulcer left foot, B - Right fourth and fifth metatarsal amputation, C - Clearance fragments fourth and fifth metatarsal MICROSCOPIC DIAGNOSIS A. Left foot ulcer, biopsy: Focal ulceration and acute inflammation. Focal verrucous changes. B. Fourth and fifth metatarsal amputation: Focal ulceration, associated acute inflammation and granulation tissue reaction. Bone with acute osteomyelitis. C. Clearance fragments fourth and fifth metatarsal: Pieces of bone with chronic inflammation and reactive changes. Negative for acute osteomyelitis. SJ:marely 07/24/2020 COMMENT Case has been reviewed in consultation with Dr. Mcbride who concurs with the above diagnosis. IDC:AM MICROSCOPIC DESCRIPTION Slides are reviewed. GROSS DESCRIPTION A - Received in fixative is one container labeled with the patient's name and designated biopsy ulcer left foot. The specimen consists of calderon skin measuring in aggregate 1.5 x 0.3 x 0.2 cm. The specimen is submitted in its entirety in one cassette. B - Received in fixative is one container labeled with the patient's name and designated fourth and fifth metatarsal amputation. The specimen consists of multiple (greater than 15 fragments of light to dark calderon skin and soft tissue and bone ranging in size from 1.5 to 7.8 cm. The largest fragment consists of fourth and fifth toes. The fifth toe in the medial aspect contains a cutaneous ulcer with scab formation measuring 1.5 cm in greatest dimension. The fifth toe contains no lesions and no nail is identified. Agriculture Engineer sections are submitted in four cassettes after decalcification as follows: 1 - fifth toe, longitudinally sectioned, 2 - fourth toe, longitudinally sectioned, 3 - healthcare sales representative sections of soft tissue fragments in container, 4 - healthcare sales representative sections of bone fragments in container. C - Received in fixative is one container labeled with the patient's name and designated clearance fragment fourth and fifth metatarsal. The specimen consists of one irregular fragment of calderon-white bone measuring 2.5 x 1.6 x 0.2 cm. The specimen is totally submitted in one cassette after decalcification. / AM:marely 07/18/2020 TC:2 CPT: 42880, 94154 x2, 44667 x2
[2020-07-17 01:15] LABS: Bedside Glucose 206 mg/dL (70-110)
[2020-07-17 04:16] LABS: Bedside Glucose 165 mg/dL (70-110)
[2020-07-17 06:02] LABS: Absolute Lymphocyte Count 1.35 X10^3/uL (0.83-4.51); Absolute Neutrophil Count 3.9 X10^3/uL (2.0-7.7); Basophil# 0.05 X10^3/uL; Basophil% 0.8 % (0-1); Eosinophils% 3.3 % (0-5); Hematocrit 44.1 % (40-54); Lymphocyte # 1.35 X10^3/ul (4.0); Mean Corp Hgb Conc 31.7 g/dL (32-36); Mean Corpuscular Hgb 26.7 pg (27.0-32.0); Mean Corpuscular Volume 84.2 fL (80-94); Mean Platelet Vol. 11.9 fl (6.2-12.0); Monocyte# 0.58 X10^3/uL; Monocyte% 9.4 % (0-10); NRBC Flagged by Analyzer 0 % (0-5); Neutrophil % 63.5 % (47-70); POSITIVE COUNT YES; Platelet Count 95 K/mm3 (150-450); RBC Distribution Width CV 13.9 % (11.6-14.6); RBC Distribution Width SD 42.9 fl (35.1-43.9); Red Blood Count 5.24 M/mm3 (4.6-6.2); White Blood Count 6.1 K/mm3 (4.4-11.0)
[2020-07-17 06:29] LABS: Anion Gap 4 (5-15); BUN 9 mg/dL (7-18); BUN/Creat Ratio 11.3 RATIO (10-20); Calcium,Total 8.6 mg/dL (8.5-10.1); Chloride 104 mmol/L (98-107); EST Glomerular Filtration Rate 110 mL/min (>60); Est Glom Filt Rate - Afr Amer 133 mL/min (>60); Estimated Creatinine Clearance 117.66 ml/min; Glucose 170 mg/dL (74-106); Potassium 3.8 mmol/L (3.5-5.1); Sodium Level 137 mmol/L (136-145)
[2020-07-17] MEDS: Morphine 2 MG/ML Syringe IV ×4 (06:37→21:51)
[2020-07-17] MEDS: 0.9% Saline Lock 10 ML Syringe IV ×2 (06:38→21:51)
[2020-07-17] MEDS: Insulin Lispro 100 UNIT/ML INSULN.PEN SC ×3 (06:42→22:44)
--- NOTE | 2020-07-17 09:05 | NURSING ---
wound photo: right plantar foot
--- NOTE | 2020-07-17 09:07 | NURSING ---
wound photo: right lateral foot
--- NOTE | 2020-07-17 09:08 | NURSING ---
wound photo: right medial 5th toe
--- NOTE | 2020-07-17 09:08 | NURSING ---
wound photo: left foot
--- NOTE | 2020-07-17 10:45 | CASEMGMT ---
RN CM Face to Face with patient for initial transition planning/care coordination assessment. RN CM introduced self and role at [facility]. Patient sitting in chair, alert and oriented. Patient willing to participate in assessment and is able to answer all questions appropriately. Care providers, pharmacy, and demographics verified. Patient wishes to discharge home but will consider SNF if necessary . Patient states he has no further needs or concerns at this time. CM to follow for discharge planning needs that may arise. 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 Patient states he is independent at home. [facility] DME/HHC: Patient states he has grab bars and glucometer at home. Patient has had [facility] in the past. CM will monitor for HHC vs SNF pending course of treatment and progress with therapy. Disposition Plan: TBD Bella MTZ, RN, CM
[2020-07-17 10:58] LABS: M R Staph aureus DNA By PCR POSITIVE (Negative); Probe Check PASS; Staph aureus DNA By PCR POSITIVE (Negative)
[2020-07-17 11:00] LABS: Bedside Glucose 167 mg/dL (70-110)
[2020-07-17 12:21] LABS: Hemoglobin A1c 10.3 % (3.8-5.6)
--- NOTE | 2020-07-17 13:11 | PCM.OPRPT ---
Report of Operation Date of Procedure: 07/17/20 Pre-Operative Diagnosis: 1. Necrotic ulceration down to bone with osteomyelitis, abscess right foot. 2. Chronic ulceration left foot Post-Operative Diagnosis: Same Surgery/Procedure Performed:: Debridement of all nonviable, infected, and necrotic soft tissue and bone with partial 4th and 5th ray amputation right foot. Ulcer biopsy left foot structural welder: None Type of Anesthesia:: General Specimen's removed: 1. Debrided soft tissue and bone 4th and 5th rays right foot sent to pathology with bone culture sent to microbiology. 2. Clearance fragment from 4th and 5th metatarsals right foot sent to pathology and microbiology. 3. Biopsy of left foot ulcer sent to pathology Estimated Blood Loss (mL): 10mL Description of Procedure: Indications: This is a 50 year old gentleman with uncontrolled diabetes, tobacco use and very nonadherent with medical care who has significant infection to the right foot. There is deep infection and necrosis to the right foot with osteomyelitis to the 4th and 5th rays. This was seen on xrays as well as MRI. We discussed the options and patient was agreeable to right foot 4th and 5th ray amputation with debridement of all nonviable, infected and necrotic soft tissue and bone. He also has a chronic on and off ulceration to the dorsal left foot at level of the 1st interdigital space. Due to this we discussed a biopsy of the site for further evaluation. Reviewed the procedures with him in detail, reviewed the possible benefits vs risks, goals, and expectations. He was advised the risks included but are not limited to worsening infection, blood clots, bleeding, need for further surgery, nonhealing, fractures, pain, loss of limb, deformity, charcot foot, deformity, weakness, inability to walk, chronic disability, loss of life. He understands he is a very high risk of more proximal amputation such as transmetatarsal amputation or even a below or above knee amputation. Advised this will be a very long healing process, and ultimately this may not heal. He understands he will need to get this blood sugar under control, as well as stop all tobacco use to help optimize healing. The consent forms were reviewed with him and he agreed and freely signed them. No guarantees were given, no warranties were given. Also of note pre op left foot xrays obtained and reviewed - no noted signs of osteomyelitis, no gas, no foreign body noted. Operative procedure: The patient was brought back to the operating room and was placed on the operating room table in the supine position. The patient received general anesthesia per the anesthesia team. The patient was already on IV antibiotics, Vancomycin and Zosyn. A time out was performed and the patient was properly identified and the surgical plan was confirmed. A well padded right ankle pneumatic tourniquet was appled around the right ankle. Left foot ulcer biopsy: The skin was cleansed with Betadine solution. The foot was also draped in clean fashion. There was noted to be ulceration to the dorsal 1st interdigital space down to the subcutaneous tissue layer. It measured ~1cm in length and 0.5cm in width and 0.3cm in depth. The ulcer is granular with some hypertrophic margins. Three 3mm punch biopsies were obtained from the ulcer site being sure to get a good applications sales representative sample, which included the margins and base of the ulceration site. The biopsies were placed in formalin and sent to pathology for further evaluation. The site was cleansed with Betadine solution, and a gauze, kerlix and ismael dressing applied. Right foot debridement of soft tissue and bone: The right foot was scrubbed, prepped, and draped in the usual aseptic fashion. It was noted the right foot had extensive ulceration to the 4th and 5th rays extending sub 3rd and 2nd metatarsal heads. The tissue at the 4th and 5th rays was very necrotic down to exposed necrotic bone, there was significant necrotic fascia and subcutaneous tissue at this level as well, there was significant maloder and drainage consistent with infection. There was also significant edema present. The aggregate size of the ulcers was visualized at 8.5cm x 5cm and probed at least 4cm deep in to the foot in all directions. There was significant probing, tunneling, and undermining present at the site. The right foot was elevated and the right ankle tourniquet was inflated to 250mmHg. At this time all nonviable, infected, necrotic soft tissue and bone was resected and excised from the foot using a 15 blade as well as a rongeur. There was deep abscess to the 4th and 5th rays with extensive nonviable and necrotic tissue which was all excised down to healthy viable bleeding soft tissue and bone. The 4th and 5th toes were removed in this process as well as the majority of the 4th and 5th metatarsals (using a powered sagittal saw) as these were significant necrotic and infected. The ulceration sub 2nd/3rd met heads (was mostly sub 3rd met head) also had nonviable tissue down to fascia layer and was debrided using a 15 blade removing all nonviable tissue. All debrided tissue was sent as specimen to pathology, and also to bone culture from the nonviable bone fo the 4th and 5th metatarsals and toes was sent to microbiology as culture. The bases of the 4th and 5th metatarsals did appear to be healthy and viable, which were left intact. The site was flushed with copious amounts of normal saline solution. A bone culture was taken from the residual 4th and 5th metatarsal bases and sent to pathology and microbiology. There was no exposed 1,2,3 metatarsal bones or bones of these toes - these did not appear to be infected or involved at this time. Post debridement the ulcer measured 9cm x 6cm and 2.3cm in depth. The site was packed with betadine soaked gauze, then overlying dressing was applied which consisted of 4x4 gauze, Surgicel, Kerlix, Webril and ismael bandages. The tourniquet was deflated and there was immediate return of flow to the foot, CFT < 2 seconds to 1,2,3 toes. Total tourniquet time was 26 minutes. Also of note prior to dressing application a total of 10mL of 0.5% Bupivacaine was given as a local nerve block around the surgical site right foot. The patient was transported from the operating room to the recovery room with vital signs stable and in good condition. Post operative orders placed. No weightbearing right foot, keep foot elevated. Right foot xrays were obtained which confirmed 4th / 5th partial ray amputation of the right foot. Patient will be followed as inpatient. Grafts/Implants Used: None - Complications None
[2020-07-17] MEDS: Bupivacaine Mpf 0.5% 30 ML VIAL (13:18)
--- NOTE | 2020-07-17 13:37 | PN_ITS ---
<Amanda Newman MANUFACTURING MECHANIC - Last Filed: 07/17/20 13:43> Subjective: Patient seen and examined. Reports continued right foot pain. Denies other symptoms or complaints. Denies fever, chills. - Physical Exam Vitals/I&O's: Vital Signs Temp Pulse Resp BP Pulse Ox 97.3 F L 83 18 151/72 H 93 07/17/20 09:50 07/17/20 09:50 07/17/20 09:50 07/17/20 09:50 07/17/20 09:50 Oxygen Delivery Method Room Air Weight: 363 lb 8.676 oz Body Mass Index (BMI) 50.7 Finger Stick Blood Glucose 154 Intake and Output for Last 24 Hours 07/15/20 07/16/20 07/17/20 23:59 23:59 23:59 Intake Total 590 / 1090 1130 / 1130 Output Total 0 / 0 Balance 590 / 1090 1130 / 1130 General: Alert, Oriented x3, Cooperative HEENT: Atraumatic, PERRLA, EOMI, Normocephalic Neck: Supple, No JVD, Negative Carotid Bruits Lungs: Clear to auscultation, Normal air movement Cardiovascular: Regular rate, No murmurs Abdomen: Bowel Sounds Present, Soft, Non Tender, Non-Distended, Obese Extremities: No clubbing, No cyanosis, Capillary Refill Less than 3 Seconds, Edema - Chronic lower extremity swelling Skin: - - Significant dryness bilateral lower extremities. Right foot wound on the plantar aspect of the foot with foul-smelling drainage. Musculoskeletal: No Tenderness to Palpation of Joints or Extremities Neurological: Cranial nerves II-XII grossly intact, Neuro grossly intact Psych/Mental Status: Normal Affect, Appropriate Microbiology Past 72 Hours 07/16/20 17:45 Wound - Right Foot Gram Stain - Final 07/16/20 17:45 Wound - Right Foot Wound Culture - Preliminary Gram positive organism 07/17/20 00:01 Mucosa - Nose SARS-CoV-2 Antigen (Rapid) - Final Laboratory Results 07/16/20 13:16: WBC 9.7, RBC 5.71, Hgb 14.7, Hct 46.9, MCV 82.1, MCH 25.7 L, MCHC 31.3 L, RDW Std Deviation 41.1, RDW Coeff of Maria Fernanda 13.6, Plt Count 121 L, MPV 11.8, Immature Gran % (Auto) 0.500, Neut % (Auto) 78.3 H, Lymph % (Auto) 12.9 L, Sierra % (Auto) 6.8, Eos % (Auto) 1.1, Baso % (Auto) 0.4, Absolute Neuts (auto) 7.6, Absolute Lymphs (auto) 1.25, Nucleated RBC % 0, ESR 85 H 07/16/20 13:16: Sodium 135 L, Potassium 3.9, Chloride 99, Carbon Dioxide 30.0, Anion Gap 6, BUN 7, Creatinine 0.87, Estim Creat Clear Calc 108.19, Est GFR (MDRD) Af Amer 119, Est GFR (MDRD) Non-Af 98, BUN/Creatinine Ratio 8.0 L, Glucose 260 H, Calcium 8.7, C-React Prot Ext Range 61.10 H 07/16/20 13:16: Hemoglobin A1c 10.6 H 07/16/20 17:56: POC Glucose 154 H 07/16/20 21:55: POC Glucose 218 H 07/17/20 01:03: POC Glucose 206 H 07/17/20 04:10: POC Glucose 165 H 07/17/20 05:42: WBC 6.1, RBC 5.24, Hgb 14.0, Hct 44.1, MCV 84.2, MCH 26.7 L, MCHC 31.7 L, RDW Std Deviation 42.9, RDW Coeff of Maria Fernanda 13.9, Plt Count 95 L, MPV 11.9, Immature Gran % (Auto) 1.000 H, Neut % (Auto) 63.5, Lymph % (Auto) 22.0, Sierra % (Auto) 9.4, Eos % (Auto) 3.3, Baso % (Auto) 0.8, Absolute Neuts (auto) 3.9, Absolute Lymphs (auto) 1.35, Nucleated RBC % 0 07/17/20 05:42: Sodium 137, Potassium 3.8, Chloride 104, Carbon Dioxide 29.0, Anion Gap 4 L, BUN 9, Creatinine 0.80, Estim Creat Clear Calc 117.66, Est GFR (MDRD) Af Amer 133, Est GFR (MDRD) Non-Af 110, BUN/Creatinine Ratio 11.3, Glucose 170 H, Calcium 8.6 07/17/20 05:42: Hemoglobin A1c 10.3 H 07/17/20 08:00: S.aureus Protein A PCR POSITIVE H, MRSA (PCR) POSITIVE H 07/17/20 09:47: POC Glucose 167 H Current Medications Acetaminophen (Acetaminophen 325 Mg Tablet) 650 mg PO Q6H PRN PRN PRN Reason: Pain Score 1-10/Temp > 100.7 F Dextrose (Dextrose 50%-Water 25 Gm/50 Ml Disp.Syrin) 0 gm IV X1 PRN; Protocol PRN Reason: Hypoglycemia Enoxaparin Sodium (Enoxaparin 40 Mg/0.4 Ml Syringe) 40 mg SC DAILY [facility] Glucagon (Glucagon 1 Mg/Ml Syringe) 1 mg IM .X1 PRN PRN Reason: Hypoglycemia Vancomycin IV Pharmacy to Dose (1 ea/ Sodium Chloride) 500 mls @ 250 mls/hr IV X1 PRN; Protocol PRN Reason: Rx to Dose Piperacillin Sod/Tazobactam (Sod 3.375 gm/ Sodium Chloride) 50 mls @ 12.5 mls/hr IV Q8 [facility] Last Infusion: 07/17/20 10:37 Dose: Infused Documented by: Vancomycin HCl 1,500 mg/ (Sodium Chloride) 530 mls @ 250 mls/hr IV Q8H [facility] Last Admin: 07/17/20 09:39 Dose: 250 mls/hr Documented by: Insulin Glargine (Insulin Glargine 100 Units/Ml Pen) 20 units SC QHS [facility] Last Admin: 07/16/20 22:02 Dose: 10 units Documented by: Insulin Human Lispro (Insulin Lispro 100 Unit/Ml Insuln.Pen) 0 unit SC ACHS [facility]; Protocol Last Admin: 07/17/20 06:42 Dose: 2 units Documented by: Lisinopril (Lisinopril 10 Mg Tablet) 10 mg PO DAILY [facility] Morphine Sulfate (Morphine 2 Mg/Ml Syringe) 2 mg IV Q3H PRN PRN PRN Reason: Pain Score 6-10 Last Admin: 07/17/20 09:45 Dose: 2 mg Documented by: Ondansetron HCl (Ondansetron 4 Mg/2 Ml Vial) 4 mg IV Q8H PRN PRN PRN Reason: NAUSEA/VOMITING Oxycodone HCl (Oxycodone 5 Mg Tablet) 10 mg PO Q4H PRN PRN PRN Reason: Pain Score 4-5 Last Admin: 07/16/20 22:08 Dose: 10 mg Documented by: Sodium Chloride (0.9% Saline Lock 10 Ml Syringe) 10 - 40 ml IV UD PRN PRN Reason: SALINE FLUSH Last Admin: 07/17/20 06:38 Dose: 10 ml Documented by: Medical Necessity - Tobacco Use Smoking Status: Current every day smoker Tobacco Use: Cigarettes Assessment/Plan 1. 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 Podiatry and infectious disease consult. ABIs ordered. Continue vancomycin, zosyn. Wound RN consult. Patient underwent debridement of infected and necrotic tissue and bone with partial fourth and fifth amputation right foot. MRSA and MSSA PCR positive. 2. Type 2 diabetes mellitus-hold oral regimen. Hemoglobin A1c 10.3%. Accu- Cheks with sliding scale insulin. Initiated on Lantus 20 units nightly. 3. Hypertension-appears he was previously on metoprolol and lisinopril however is no longer taking. He has not had recent follow-up with PCP. Initiate lisinopril 10 mg daily. 4. Morbid obesity-encouraged diet lifestyle applications. 5. Tobacco dependence-encourage cessation. Declines nicotine replacement patch. DVT prophylaxis-Lovenox subcu This patient was seen by PAT Hunt under the supervision of Dr. Mitchell. <Jazzy Mitchell E - Last Filed: 07/18/20 09:02> - Physical Exam Vitals/I&O's: Vital Signs Temp Pulse Resp BP Pulse Ox 97.6 F L 91 18 130/78 H 99 07/17/20 14:18 07/17/20 14:18 07/17/20 14:18 07/17/20 14:18 07/17/20 14:18 Oxygen Flow Rate (L/min) 2 Oxygen Delivery Method Nasal Cannula Weight: 363 lb 8.676 oz Body Mass Index (BMI) 50.7 Finger Stick Blood Glucose 138 Intake and Output for Last 24 Hours 07/15/20 07/16/20 07/17/20 23:59 23:59 23:59 Intake Total 590 / 1090 1660 / 1660 Output Total 0 / 0 Balance 590 / 1090 1660 / 1660 Microbiology Past 72 Hours 07/16/20 17:45 Wound - Right Foot Gram Stain - Final 07/16/20 17:45 Wound - Right Foot Wound Culture - Preliminary Gram positive organism 07/17/20 00:01 Mucosa - Nose SARS-CoV-2 Antigen (Rapid) - Final Laboratory Results 07/16/20 13:16: Hemoglobin A1c 10.6 H 07/16/20 17:56: POC Glucose 154 H 07/16/20 21:55: POC Glucose 218 H 07/17/20 01:03: POC Glucose 206 H 07/17/20 04:10: POC Glucose 165 H 07/17/20 05:42: WBC 6.1, RBC 5.24, Hgb 14.0, Hct 44.1, MCV 84.2, MCH 26.7 L, MCHC 31.7 L, RDW Std Deviation 42.9, RDW Coeff of Maria Fernanda 13.9, Plt Count 95 L, MPV 11.9, Immature Gran % (Auto) 1.000 H, Neut % (Auto) 63.5, Lymph % (Auto) 22.0, Sierra % (Auto) 9.4, Eos % (Auto) 3.3, Baso % (Auto) 0.8, Absolute Neuts (auto) 3.9, Absolute Lymphs (auto) 1.35, Nucleated RBC % 0 07/17/20 05:42: Sodium 137, Potassium 3.8, Chloride 104, Carbon Dioxide 29.0, Anion Gap 4 L, BUN 9, Creatinine 0.80, Estim Creat Clear Calc 117.66, Est GFR (MDRD) Af Amer 133, Est GFR (MDRD) Non-Af 110, BUN/Creatinine Ratio 11.3, Glucose 170 H, Calcium 8.6 07/17/20 05:42: Hemoglobin A1c 10.3 H 07/17/20 08:00: S.aureus Protein A PCR POSITIVE H, MRSA (PCR) POSITIVE H 07/17/20 09:47: POC Glucose 167 H 07/17/20 13:28: POC Glucose 138 H Current Medications Acetaminophen (Acetaminophen 325 Mg Tablet) 650 mg PO Q6H PRN PRN PRN Reason: Pain Score 1-10/Temp > 100.7 F Dextrose (Dextrose 50%-Water 25 Gm/50 Ml Disp.Syrin) 0 gm IV X1 PRN; Protocol PRN Reason: Hypoglycemia Enoxaparin Sodium (Enoxaparin 40 Mg/0.4 Ml Syringe) 40 mg SC DAILY [facility] Glucagon (Glucagon 1 Mg/Ml Syringe) 1 mg IM .X1 PRN PRN Reason: Hypoglycemia Vancomycin IV Pharmacy to Dose (1 ea/ Sodium Chloride) 500 mls @ 250 mls/hr IV X1 PRN; Protocol PRN Reason: Rx to Dose Piperacillin Sod/Tazobactam (Sod 3.375 gm/ Sodium Chloride) 50 mls @ 12.5 mls/hr IV Q8 [facility] Last Infusion: 07/17/20 10:37 Dose: Infused Documented by: Vancomycin HCl 1,500 mg/ (Sodium Chloride) 530 mls @ 250 mls/hr IV Q8H [facility] Last Infusion: 07/17/20 13:58 Dose: Infused Documented by: Insulin Glargine (Insulin Glargine 100 Units/Ml Pen) 20 units SC QHS [facility] Last Admin: 07/16/20 22:02 Dose: 10 units Documented by: Insulin Human Lispro (Insulin Lispro 100 Unit/Ml Insuln.Pen) 0 unit SC ACHS [facility]; Protocol Last Admin: 07/17/20 06:42 Dose: 2 units Documented by: Lisinopril (Lisinopril 10 Mg Tablet) 10 mg PO DAILY [facility] Morphine Sulfate (Morphine 2 Mg/Ml Syringe) 2 mg IV Q3H PRN PRN PRN Reason: Pain Score 6-10 Last Admin: 07/17/20 09:45 Dose: 2 mg Documented by: Ondansetron HCl (Ondansetron 4 Mg/2 Ml Vial) 4 mg IV Q8H PRN PRN PRN Reason: NAUSEA/VOMITING Oxycodone HCl (Oxycodone 5 Mg Tablet) 10 mg PO Q4H PRN PRN PRN Reason: Pain Score 4-5 Last Admin: 07/16/20 22:08 Dose: 10 mg Documented by: Sodium Chloride (0.9% Saline Lock 10 Ml Syringe) 10 - 40 ml IV UD PRN PRN Reason: SALINE FLUSH Last Admin: 07/17/20 06:38 Dose: 10 ml Documented by: Assessment/Plan Hospitalist note: I am seeing this patient in conjunction with Amanda Newman. I independently seen and examined the patient. Progress note above, laboratory data and imaging studies reviewed and I concur with above treatment plan. Patient just came out from the OR, he is alert but sleepy, arousable. He complained of significant right foot pain. His vital signs are stable. - Physical Exam General: Alert, sleepy but arousable, cooperative, No apparent distress. HEENT: Atraumatic, PERRLA, EOMI. Neck: Supple, No JVD, Negative Carotid Bruits, Trachea Midline, Thyroid Normal. Lungs: Clear to auscultation, Normal air movement, No rhonchi, No wheeze, No rales. Cardiovascular: Regular rate, Regular Rhythm, Normal S1, Normal S2, PMI Normal. Abdomen: Bowel Sounds Present, Soft, Non Tender, Non-Distended, No Hepato- splenomegaly. Extremities: No clubbing, No cyanosis, No edema, surgical incision/wound of the right foot Skin: No rashes, No breakdown Neurological: Cranial nerves are intact, neuro grossly intact Vital Signs are stable. Assessment and plan: #1 infected/necrotic nonhealing diabetic plantar ulcer of the right foot/osteomyelitis of the fourth and fifth metatarsals: Status post debridement, partial fourth and fifth ray amputation of the right foot, postoperative day 0. Patient is on IV vancomycin and Zosyn. Wound cultures pending. Podiatry medicine as well as infectious disease are on the case. Plan to continue same treatment. #2 other chronic medical problems: Stable, continue current medications as above. This note was generated with Chatty dictation software. It may contain incorrect words, spelling, and punctuation that were not noted in checking the note before signing. Inpatient E&M: 41013 Subs Hosp L2
--- NOTE | 2020-07-17 14:00 | RAD_ITS ---
STUDY: X-RAY - RIGHT FOOT CLINICAL: Male, 50 years old. POST OP TECHNIQUE: 3 view(s) of the foot. COMPARISON: 07/16/2020. FINDINGS: Since prior study, there has been amputation of the fourth and fifth metatarsals and digits, just beyond the metatarsal bases. There is extensive soft tissue air and irregularity related to the recent surgery. Stable appearance of previous amputation of the second digit. RAD/Foot min 3 Views IMPRESSION: Immediately status post amputation of the fourth and fifth rays. Electronically Signed: Omer Mathews MD at 17:17 EST , Service support ,
[2020-07-17 14:10] LABS: Bedside Glucose 138 mg/dL (70-110)
[2020-07-17] MEDS: Lisinopril 10 MG Tablet PO (15:10)
--- NOTE | 2020-07-17 15:13 | CHAPLAIN ---
Type of Pastoral Visit ___ Initial Visit ___ Follow-up Visit ___ On-call Visit ___ General Patient Visit ___ Spiritual Assessment ___ Family Conference ___ Bereavement ___ Rapid Response ___ Code Blue _x__ Other (describe below) Pastoral Care Referral From ___ Patient ___ Family ___ Nurse ___ Physician ___ Print Manager ___ Mud Plant Operator ___ Other (describe below) Sacrament/Intervention ___ Active listening ___ Anointing ___ Shinto ___ Bereavement ___ Communion ___ Cami exploration ___ ___ Life review ___ Prayer ___ Reconciliation ___ Sacrament of Sick ___ Supportive presence ___ Wedding ___ Other (describe below) Pastoral Comments patient out of room when attempt to visit was made
[2020-07-17 15:21] LABS: Bedside Glucose 134 mg/dL (70-110)
--- NOTE | 2020-07-17 15:55 | CON.PCM_ITS ---
Problem List (1) Osteomyelitis of toe of right foot Status: Chronic Reason for Consult: osteo Consulted by: Dr. Mitchell History of Present Illness: The patient is a 50 year old M with DM, admitted 01/2020 with R 1st toe osteo. Now with 2 weeks of progressive R foot pain, swelling, redness, drainage. No fever or chills, no inciting event, no recent abx. Came to ED, seen by podiatry, MRI done, taken to OR today for partial ray resection. Feeling ok, on vanc/zosyn. Full ROS performed and neg except as noted above. - Medical History Past Medical History (Chronic Problems): Chronic Problems (Last Reviewed 07/16/20 @ 16:[address] Mc Gonzales, DO) Osteomyelitis of toe of right foot (Chronic) KRYSTAL (obstructive sleep apnea) (Chronic) Dry skin dermatitis (Chronic) Thrombocytopenia (Chronic) Osteoarthritis (Chronic) Bilateral lower extremity edema (Chronic) Type 2 diabetes mellitus (Chronic) History of esophageal disorder (Chronic) Hypertension (Chronic) Allergies/Adverse Reactions: Allergies ketorolac [From Toradol] Adverse Reaction (Verified 07/16/20 12:01) Upset Stomach NSAIDS (Non-Steroidal Anti-Inflamma Adverse Reaction (Verified 07/16/20 12:01) Upset Stomach Home Medications: Ambulatory Orders Medication Instructions Recorded Dulaglutide [Trulicity] 1.5 mg SUBCUT QWEEK 01/23/20 Metformin HCl 1,000 mg PO BID 01/23/20 - Social History SMOKING STATUS:: Former smoker Vital Signs Temp Pulse Resp BP Pulse Ox 97.8 F 87 18 125/68 H 92 07/17/20 15:00 07/17/20 15:00 07/17/20 15:00 07/17/20 15:00 07/17/20 15:00 Oxygen Flow Rate (L/min) 2 Oxygen Delivery Method Room Air Weight: 164.9 kg Body Mass Index (BMI) 50.7 Finger Stick Blood Glucose 138 Microbiology Past 72 Hours 07/16/20 17:45 Gram Stain - Final Wound - Right Foot Wound Culture - Preliminary Gram positive organism 07/17/20 00:01 SARS-CoV-2 Antigen (Rapid) - Final Mucosa - Nose Laboratory Tests Past 24 Hrs 07/16/20 07/17/20 07/17/20 13:16 05:42 05:42 WBC 6.1 RBC 5.24 Hgb 14.0 Hct 44.1 MCV 84.2 MCH 26.7 L MCHC 31.7 L RDW Std Deviation 42.9 RDW Coeff of Maria Fernanda 13.9 Plt Count 95 L MPV 11.9 Immature Gran % (Auto) 1.000 H Neut % (Auto) 63.5 Lymph % (Auto) 22.0 Parmer % (Auto) 9.4 Eos % (Auto) 3.3 Baso % (Auto) 0.8 Absolute Neuts (auto) 3.9 Absolute Lymphs (auto) 1.35 Nucleated RBC % 0 Sodium 137 Potassium 3.8 Chloride 104 Carbon Dioxide 29.0 Anion Gap 4 L BUN 9 Creatinine 0.80 Estim Creat Clear Calc 117.66 Est GFR (MDRD) Af Amer 133 Est GFR (MDRD) Non-Af 110 BUN/Creatinine Ratio 11.3 Glucose 170 H Hemoglobin A1c 10.6 H Calcium 8.6 S.aureus Protein A PCR MRSA (PCR) 07/17/20 07/17/20 05:42 08:00 WBC RBC Hgb Hct MCV MCH MCHC RDW Std Deviation RDW Coeff of Maria Fernanda Plt Count MPV Immature Gran % (Auto) Neut % (Auto) Lymph % (Auto) Parmer % (Auto) Eos % (Auto) Baso % (Auto) Absolute Neuts (auto) Absolute Lymphs (auto) Nucleated RBC % Sodium Potassium Chloride Carbon Dioxide Anion Gap BUN Creatinine Estim Creat Clear Calc Est GFR (MDRD) Af Amer Est GFR (MDRD) Non-Af BUN/Creatinine Ratio Glucose Hemoglobin A1c 10.3 H Calcium S.aureus Protein A PCR POSITIVE H MRSA (PCR) POSITIVE H - Other Studies Radiology: [] reviewed Other Studies: [] Route of nutrition/ use of supplements: [] Nutritional Intake: [] IV Site: [] Faulkner Catheter: [] - Physical Exam General: Alert, Cooperative, No apparent distress HEENT: Atraumatic, PERRLA, EOMI Neck: Supple, No Nodes Lungs: Clear to auscultation, Normal air movement Cardiovascular: Regular rate, Regular Rhythm Abdomen: Soft, Non Tender, Non-Distended Extremities: Edema Skin: Ulcer/ Wound IV Site: Peripheral, without redness Musculoskeletal: No Tenderness to Palpation of Joints or Extremities Neurological: Cranial nerves II-XII grossly intact - Assessment/Plan Antibiotics: [] Assessment/Plan: [] R foot osteo - pcr (+) mrsa, now s/p OR 07/17/20 for partial ray resection. On vanc/zosyn. Will follow, thank you
[2020-07-17 17:05] LABS: Bedside Glucose 178 mg/dL (70-110)
[2020-07-17 17:20] LABS: Bedside Glucose 189 mg/dL (70-110)
[2020-07-17] MEDS: Acetaminophen 325 MG Tablet 650 MG PO (17:48)
[2020-07-17] MEDS: oxyCODONE 5 MG Tablet 10 MG PO (17:48)
--- NOTE | 2020-07-17 19:13 | PCM.RX.CS ---
Consult Pharmacy has been consulted to manage selected antiobiotic: Vancomycin Type of Consult: Follow-up Labs: Sodium 137 mmol/L (136-145) 07/17/20 05:42 Potassium 3.8 mmol/L (3.5-5.1) 07/17/20 05:42 Chloride 104 mmol/L (98-107) 07/17/20 05:42 Carbon Dioxide 29.0 mmol/L (21.0-32.0) 07/17/20 05:42 Anion Gap 4 (5-15) L 07/17/20 05:42 BUN 9 mg/dL (7-18) 07/17/20 05:42 Creatinine 0.80 mg/dL (0.70-1.30) 07/17/20 05:42 Est GFR (MDRD) Af Amer 133 mL/min (>60) 07/17/20 05:42 Est GFR (MDRD) Non-Af 110 mL/min (>60) 07/17/20 05:42 BUN/Creatinine Ratio 11.3 RATIO (10-20) 07/17/20 05:42 Glucose 170 mg/dL (74-106) H 07/17/20 05:42 Vancomycin Trough 18.0 ug/mL (5.0-15.0) H 07/17/20 16:30 Microbiology: Microbiology 07/16/20 17:45 Wound - Right Foot Gram Stain - Final 07/16/20 17:45 Wound - Right Foot Wound Culture - Preliminary Gram positive organism 07/17/20 00:01 Mucosa - Nose SARS-CoV-2 Antigen (Rapid) - Final Goal Trough: 15-20 mcg/mL Pharmacy Plan for Drug Dosing: VANCOMYCIN LEVEL RECEIVED Current Vancomycin Dose: 1500mg IV Q8h Number of Doses Received: 3 (1 initial dose, 2 scheduled) Vancomycin Level: 18 Hours Since Last Dose: 7hr Renal Function: 0.8 Renal Function Trend: stable Lab/Micro: Wound Cx: G(+) organism Vancomycin Plan/Comments: Patient had level drawn which resulted in a value of 18 (goal 15-20). Patient within therapeutic range. Will continue current dose and check a trough in 2 days to ensure pt still within therapeutic range. Pending Level: 07/19/20 @1630 Pharmacy Service will continue to monitor and adjust dosing as required.
[2020-07-17 22:55] LABS: Bedside Glucose 185 mg/dL (70-110)
[2020-07-18] MEDS: 0.9% Saline Lock 10 ML Syringe IV ×3 (03:26→21:48)
[2020-07-18] MEDS: Morphine 2 MG/ML Syringe IV ×3 (03:26→21:47)
[2020-07-18 06:17] LABS: Hematocrit 42.3 % (40-54); Mean Corp Hgb Conc 30.7 g/dL (32-36); Mean Corpuscular Hgb 26.3 pg (27.0-32.0); Mean Corpuscular Volume 85.6 fL (80-94); Mean Platelet Vol. 11.8 fl (6.2-12.0); Platelet Count 103 K/mm3 (150-450); RBC Distribution Width CV 13.8 % (11.6-14.6); RBC Distribution Width SD 42.9 fl (35.1-43.9); Red Blood Count 4.94 M/mm3 (4.6-6.2); White Blood Count 7.4 K/mm3 (4.4-11.0)
[2020-07-18 06:20] VITALS: BP 124/53; PULSE 90; RESP 18; TEMP 35.9; O2SAT 94
[2020-07-18 06:38] LABS: Anion Gap 2 (5-15); BUN 11 mg/dL (7-18); BUN/Creat Ratio 9.6 RATIO (10-20); Calcium,Total 8.3 mg/dL (8.5-10.1); Chloride 102 mmol/L (98-107); Creatinine, Serum 1.15 mg/dL (0.70-1.30); EST Glomerular Filtration Rate 72 mL/min (>60); Est Glom Filt Rate - Afr Amer 87 mL/min (>60); Estimated Creatinine Clearance 81.85 ml/min; Glucose 158 mg/dL (74-106); Potassium 4.3 mmol/L (3.5-5.1); Sodium Level 136 mmol/L (136-145)
[2020-07-18] MEDS: Insulin Lispro 100 UNIT/ML INSULN.PEN SC ×3 (06:38→21:40)
[2020-07-18 07:06] LABS: Bedside Glucose 168 mg/dL (70-110)
[2020-07-18 08:16] VITALS: BP 124/70; PULSE 89; RESP 16; TEMP 36.8; O2SAT 93
--- NOTE | 2020-07-18 08:23 | PCM.PROGNOTE ---
Subjective: Patient was seen this morning for follow up on right and left feet. He is resting in recliner with feet up. He relates to some pain to the right foot, does not appear to be severe at this time. He has no complaints of fever, chills, nausea or vomiting. - Physical Exam Vitals/I&O's: Vital Signs Temp Pulse Resp BP Pulse Ox 98.2 F 89 16 124/70 H 93 07/18/20 08:16 07/18/20 08:16 07/18/20 08:16 07/18/20 08:16 07/18/20 08:16 Oxygen Flow Rate (L/min) 2 Oxygen Delivery Method Room Air Weight: 164.9 kg Body Mass Index (BMI) 50.7 Finger Stick Blood Glucose 138 Intake and Output for Last 24 Hours 07/16/20 07/17/20 07/18/20 23:59 23:59 23:59 Intake Total 590 / 1090 2840 / 3320 1060 / 1060 Output Total 1550 / 2000 1350 / 1350 Balance 590 / 1090 1290 / 1320 -290 / -290 General: Alert, Oriented x3, Cooperative, No apparent distress Extremities: Capillary Refill Less than 3 Seconds, No Calf Tenderness, - - s/p right foot debridement 4th and 5th rays, done to bone, tissues healthy and viable, bleeding controlled at this time, no purulence, no visible abscess, no necrosis noted; left foot s/p biopsy to ulcer 1st interdigital space - tissues healthy and viable, down to subcutaneous tissue Skin: - - No acute ischemia to the foot or ankle bilateral. Psych/Mental Status: Appropriate, Alert and oriented to time, place, person, mood and affect Microbiology Past 72 Hours 07/16/20 17:45 Wound - Right Foot Gram Stain - Final 07/16/20 17:45 Wound - Right Foot Wound Culture - Preliminary Gram positive organism 07/17/20 00:01 Mucosa - Nose SARS-CoV-2 Antigen (Rapid) - Final Laboratory Results 07/17/20 05:42: Hemoglobin A1c 10.3 H 07/17/20 06:35: POC Glucose 178 H 07/17/20 08:00: S.aureus Protein A PCR POSITIVE H, MRSA (PCR) POSITIVE H 07/17/20 09:47: POC Glucose 167 H 07/17/20 13:28: POC Glucose 138 H 07/17/20 15:13: POC Glucose 134 H 07/17/20 16:30: Vancomycin Trough 18.0 H 07/17/20 17:08: POC Glucose 189 H 07/17/20 22:42: POC Glucose 185 H 07/18/20 06:10: WBC 7.4, RBC 4.94, Hgb 13.0, Hct 42.3, MCV 85.6, MCH 26.3 L, MCHC 30.7 L, RDW Std Deviation 42.9, RDW Coeff of Maria Fernanda 13.8, Plt Count 103 L, MPV 11.8 07/18/20 06:10: Sodium 136, Potassium 4.3, Chloride 102, Carbon Dioxide 32.0, Anion Gap 2 L, BUN 11, Creatinine 1.15, Estim Creat Clear Calc 81.85, Est GFR (MDRD) Af Amer 87, Est GFR (MDRD) Non-Af 72, BUN/Creatinine Ratio 9.6 L, Glucose 158 H, Calcium 8.3 L 07/18/20 06:36: POC Glucose 168 H Current Medications Acetaminophen (Acetaminophen 325 Mg Tablet) 650 mg PO Q6H PRN PRN PRN Reason: Pain Score 1-10/Temp > 100.7 F Last Admin: 07/17/20 17:48 Dose: 650 mg Documented by: Dextrose (Dextrose 50%-Water 25 Gm/50 Ml Disp.Syrin) 0 gm IV X1 PRN; Protocol PRN Reason: Hypoglycemia Enoxaparin Sodium (Enoxaparin 40 Mg/0.4 Ml Syringe) 40 mg SC DAILY [facility] Glucagon (Glucagon 1 Mg/Ml Syringe) 1 mg IM .X1 PRN PRN Reason: Hypoglycemia Vancomycin IV Pharmacy to Dose (1 ea/ Sodium Chloride) 500 mls @ 250 mls/hr IV X1 PRN; Protocol PRN Reason: Rx to Dose Piperacillin Sod/Tazobactam (Sod 3.375 gm/ Sodium Chloride) 50 mls @ 12.5 mls/hr IV Q8 [facility] Last Admin: 07/18/20 06:38 Dose: 12.5 mls/hr Documented by: Vancomycin HCl 1,500 mg/ (Sodium Chloride) 530 mls @ 250 mls/hr IV Q8H [facility] Last Infusion: 07/18/20 03:44 Dose: Infused Documented by: Sodium Chloride () 250 mls @ 15 mls/hr IV .[id number] PRN PRN Reason: Saline Flush Last Infusion: 07/17/20 20:03 Dose: 15 mls/hr Documented by: Sodium Chloride () 250 mls @ 15 mls/hr IV .[id number] PRN PRN Reason: Additional IVPB Infusion Insulin Glargine (Insulin Glargine 100 Units/Ml Pen) 20 units SC QHS [facility] Last Admin: 07/17/20 22:43 Dose: 20 units Documented by: Insulin Human Lispro (Insulin Lispro 100 Unit/Ml Insuln.Pen) 0 unit SC ACHS [facility]; Protocol Last Admin: 07/18/20 06:38 Dose: 2 units Documented by: Lisinopril (Lisinopril 10 Mg Tablet) 10 mg PO DAILY [facility] Last Admin: 07/17/20 15:10 Dose: 10 mg Documented by: Morphine Sulfate (Morphine 2 Mg/Ml Syringe) 2 mg IV Q3H PRN PRN PRN Reason: Pain Score 6-10 Last Admin: 07/18/20 08:15 Dose: 2 mg Documented by: Ondansetron HCl (Ondansetron 4 Mg/2 Ml Vial) 4 mg IV Q8H PRN PRN PRN Reason: NAUSEA/VOMITING Oxycodone HCl (Oxycodone 5 Mg Tablet) 10 mg PO Q4H PRN PRN PRN Reason: Pain Score 4-5 Last Admin: 07/17/20 17:48 Dose: 10 mg Documented by: Sodium Chloride (0.9% Saline Lock 10 Ml Syringe) 10 - 40 ml IV UD PRN PRN Reason: SALINE FLUSH Last Admin: 07/18/20 03:26 Dose: 10 ml Documented by: Medical Necessity - Tobacco Use Smoking Status: Current every day smoker Tobacco Use: Cigarettes Assessment/Plan All Active Problems (Last Reviewed 07/16/20 @ 16:[address] Mc Gonzales, DO) Sinus tachycardia seen on front desk monitor (Resolved) DVT (deep venous thrombosis) (Resolved) History of gallstones (Resolved) Right foot ulcer down to necrotic bone w/ osteomyelitis s/p debridement on 07/17/2020 Diabetic neuropathy bilateral foot Uncontrolled diabetes Tobacco use Recurrent left foot ulcer down to subcutaneous tissue Reviewed diagnostic data. Feet evaluated. Tissues appear healthy and viable at this time. Right foot- dakin's soln, gauze, kerlix and ismael; Left foot - aquacel ag and gauze/ismael dressing. Change left foot dressing daily. We will likely plan for a wound vac to right foot tomorrow. No weightbearing right foot, keep right foot elevated at all times. Also new LEAS noninvasive vascular studies were ordered. Patient is on broad spectrum antibiotics, Vanc and Zofelix, ID/Dr. Soto on culture. Reviewed culture results. Reviewed importance of strict blood sugar control as well as tobacco cessation to help optimize healing. d/c planning - recommend nursing facility placement if possible. Podiatry will continue to follow closely.
--- NOTE | 2020-07-18 08:44 | NURSING ---
wound photo: right foot
--- NOTE | 2020-07-18 09:02 | PN_ITS ---
Subjective: Chief complaint: Follow-up after admission for infected diabetic right plantar foot nonhealing ulcer/wound/right foot abscess/osteomyelitis. Patient seen and examined. No acute events overnight. This morning, complaining of right foot pain, 8-9 out of 10 in severity, not radiating. Denies fever or chills. His vital signs are stable. - Physical Exam Vitals/I&O's: Vital Signs Temp Pulse Resp BP Pulse Ox 98.2 F 89 16 124/70 H 93 07/18/20 08:16 07/18/20 08:16 07/18/20 08:16 07/18/20 08:16 07/18/20 08:16 Oxygen Flow Rate (L/min) 2 Oxygen Delivery Method Room Air Weight: 363 lb 8.676 oz Body Mass Index (BMI) 50.7 Finger Stick Blood Glucose 138 Intake and Output for Last 24 Hours 07/16/20 07/17/20 07/18/20 23:59 23:59 23:59 Intake Total 590 / 1090 2840 / 3320 1060 / 1060 Output Total 1550 / 2000 1350 / 1350 Balance 590 / 1090 1290 / 1320 -290 / -290 General: Alert, Oriented x3, Cooperative, No apparent distress HEENT: Atraumatic, PERRLA, EOMI, Normocephalic Oral: Moist Mucosa, No Gingival or Mucosal Lesions/ Ulcerations Neck: Supple, No JVD, Negative Carotid Bruits, Trachea Midline, Thyroid Normal Size and Texture Lungs: Clear to auscultation, Normal air movement, No rhonchi, No wheeze, No rales Cardiovascular: Regular rate, Regular Rhythm, Normal S1, Normal S2, PMI Normal Abdomen: Bowel Sounds Present, Soft, Non Tender, Non-Distended, No Hepato- splenomegaly, Obese Extremities: No clubbing, No cyanosis, Edema - Stasis dermatitis. Skin: No rashes, Ulcer/ Wound Lymphatic: No Cervical, Supraclavicular, or Inguinal Adenopathy Neurological: Cranial nerves II-XII grossly intact, Motor Exam 5/5 strength throughout Psych/Mental Status: Normal Affect, Appropriate, Alert and oriented to time, pl ismael, person, mood and affect Microbiology Past 72 Hours 07/16/20 17:45 Wound - Right Foot Gram Stain - Final 07/16/20 17:45 Wound - Right Foot Wound Culture - Preliminary Gram positive organism 07/17/20 00:01 Mucosa - Nose SARS-CoV-2 Antigen (Rapid) - Final Laboratory Results 07/17/20 05:42: Hemoglobin A1c 10.3 H 07/17/20 06:35: POC Glucose 178 H 07/17/20 08:00: S.aureus Protein A PCR POSITIVE H, MRSA (PCR) POSITIVE H 07/17/20 09:47: POC Glucose 167 H 07/17/20 13:28: POC Glucose 138 H 07/17/20 15:13: POC Glucose 134 H 07/17/20 16:30: Vancomycin Trough 18.0 H 07/17/20 17:08: POC Glucose 189 H 07/17/20 22:42: POC Glucose 185 H 07/18/20 06:10: WBC 7.4, RBC 4.94, Hgb 13.0, Hct 42.3, MCV 85.6, MCH 26.3 L, MCHC 30.7 L, RDW Std Deviation 42.9, RDW Coeff of Maria Fernanda 13.8, Plt Count 103 L, MPV 11.8 07/18/20 06:10: Sodium 136, Potassium 4.3, Chloride 102, Carbon Dioxide 32.0, Anion Gap 2 L, BUN 11, Creatinine 1.15, Estim Creat Clear Calc 81.85, Est GFR (MDRD) Af Amer 87, Est GFR (MDRD) Non-Af 72, BUN/Creatinine Ratio 9.6 L, Glucose 158 H, Calcium 8.3 L 07/18/20 06:36: POC Glucose 168 H Microbiology 07/16/20 17:45 Wound - Right Foot Gram Stain - Final 07/16/20 17:45 Wound - Right Foot Wound Culture - Preliminary Gram positive organism 07/17/20 00:01 Mucosa - Nose SARS-CoV-2 Antigen (Rapid) - Final Clinical Impression(s) from Imaging Studies Foot X-Ray 07/16/20 12:12 IMPRESSION: Status post partial dictation the second toe. This is unchanged. Destruction of the distal portion of the fourth metatarsal as well as the proximal pharynx of the fourth toe. Minimal resorptive changes at the head of the fifth metatarsal. Soft tissue swelling. Ulcerated lesion along the plantar aspect of the foot at the fourth and fifth metatarsal phalangeal joints. Electronically Signed: Jeronimo Gomez, at 13:21 EST , Service support , Lower Extremity MRI 07/16/20 18:08 IMPRESSION: Osteomyelitis of the fourth and fifth metatarsals, phalanges of the fifth digit and fourth proximal and middle phalanges. Pathologic fracture of the fifth metatarsal neck. Electronically Signed: Rodney Benjaimn MD at 7:31 EST Tel , Service support , Foot X-Ray 07/16/20 18:12 IMPRESSION: No definite change or acute abnormality. There has been indentation of the fifth digit. Electronically Signed: Omer Mathews MD at 19:57 EST , Service support , Foot X-Ray 07/17/20 14:00 IMPRESSION: Immediately status post amputation of the fourth and fifth rays. Electronically Signed: Omer Mathews MD at 17:17 EST , Service support , Current Medications Acetaminophen (Acetaminophen 325 Mg Tablet) 650 mg PO Q6H PRN PRN PRN Reason: Pain Score 1-10/Temp > 100.7 F Last Admin: 07/17/20 17:48 Dose: 650 mg Documented by: Dextrose (Dextrose 50%-Water 25 Gm/50 Ml Disp.Syrin) 0 gm IV X1 PRN; Protocol PRN Reason: Hypoglycemia Enoxaparin Sodium (Enoxaparin 40 Mg/0.4 Ml Syringe) 40 mg SC DAILY [facility] Glucagon (Glucagon 1 Mg/Ml Syringe) 1 mg IM .X1 PRN PRN Reason: Hypoglycemia Vancomycin IV Pharmacy to Dose (1 ea/ Sodium Chloride) 500 mls @ 250 mls/hr IV X1 PRN; Protocol PRN Reason: Rx to Dose Piperacillin Sod/Tazobactam (Sod 3.375 gm/ Sodium Chloride) 50 mls @ 12.5 mls/hr IV Q8 [facility] Last Admin: 07/18/20 06:38 Dose: 12.5 mls/hr Documented by: Vancomycin HCl 1,500 mg/ (Sodium Chloride) 530 mls @ 250 mls/hr IV Q8H [facility] Last Infusion: 07/18/20 03:44 Dose: Infused Documented by: Sodium Chloride () 250 mls @ 15 mls/hr IV .[id number] PRN PRN Reason: Saline Flush Last Infusion: 07/17/20 20:03 Dose: 15 mls/hr Documented by: Sodium Chloride () 250 mls @ 15 mls/hr IV .[id number] PRN PRN Reason: Additional IVPB Infusion Insulin Glargine (Insulin Glargine 100 Units/Ml Pen) 20 units SC QHS [facility] Last Admin: 07/17/20 22:43 Dose: 20 units Documented by: Insulin Human Lispro (Insulin Lispro 100 Unit/Ml Insuln.Pen) 0 unit SC ACHS [facility]; Protocol Last Admin: 07/18/20 06:38 Dose: 2 units Documented by: Lisinopril (Lisinopril 10 Mg Tablet) 10 mg PO DAILY [facility] Last Admin: 07/17/20 15:10 Dose: 10 mg Documented by: Morphine Sulfate (Morphine 2 Mg/Ml Syringe) 2 mg IV Q3H PRN PRN PRN Reason: Pain Score 6-10 Last Admin: 07/18/20 08:15 Dose: 2 mg Documented by: Ondansetron HCl (Ondansetron 4 Mg/2 Ml Vial) 4 mg IV Q8H PRN PRN PRN Reason: NAUSEA/VOMITING Oxycodone HCl (Oxycodone 5 Mg Tablet) 10 mg PO Q4H PRN PRN PRN Reason: Pain Score 4-5 Last Admin: 07/17/20 17:48 Dose: 10 mg Documented by: Sodium Chloride (0.9% Saline Lock 10 Ml Syringe) 10 - 40 ml IV UD PRN PRN Reason: SALINE FLUSH Last Admin: 07/18/20 03:26 Dose: 10 ml Documented by: Sodium Hypochlorite (Dakin's Nadya Half Strength (=0.25%)) 1 applic TOPICAL DAILY [facility]; Protocol Medical Necessity - Tobacco Use Smoking Status: Current every day smoker Tobacco Use: Cigarettes Assessment/Plan This is a 60 years old male patient presented to the emergency room because of increasing pain and swelling of the dorsum of the right foot in the setting of chronic nonhealing diabetic right foot ulcer, found to have infected necrotic nonhealing plantar ulcer of the right foot with osteomyelitis and he underwent surgery. #1 infected/necrotic nonhealing diabetic plantar ulcer of the right foot/osteomyelitis of the fourth and fifth metatarsals: Status post debridement, partial fourth and fifth ray amputation of the right foot, postoperative day 1. Remained on IV vancomycin and Zosyn. He has been afebrile, no leukocytosis. MRSA screen was positive. Wound cultures revealed staph aureus, gram-negative carlos, sensitivities pending. Podiatry medicine as well as infectious disease are on the case. Plan to continue same treatment, pain control, plan for placement of wound VAC tomorrow. Patient will need placement to retirement facility. #2 type 2 diabetes mellitus: Uncontrolled. Currently, blood sugar has been stable. Currently, he is on Lantus and sliding scale and sliding scale, Metform in held. Hemoglobin A1c was 10.6%. Plan to continue same treatment. #3 hypertension: Blood pressure stable, continue lisinopril. #4 chronic thrombocytopenia: Unclear etiology. Platelet count is at baseline, no active bleeding. Plan to monitor. #5 DVT prophylaxis: Subcu Lovenox. This note was generated with [employer] dictation software. It may contain incorrect words, spelling, and punctuation that were not noted in checking the note before signing. Inpatient E&M: 91782 Subs Hosp L2
[2020-07-18] MEDS: Lisinopril 10 MG Tablet PO (09:03)
[2020-07-18] MEDS: Enoxaparin 40 MG/0.4 ML Syringe SC (09:03)
[2020-07-18] MEDS: oxyCODONE 5 MG Tablet 10 MG PO ×3 (09:07→19:31)
[2020-07-18] MEDS: DAKIN'S SOL HALF STRENGTH (=0.25%) 1 APPLIC TOPICAL (09:47)
--- NOTE | 2020-07-18 10:10 | PCM.PN.ID ---
Subjective: Feeling ok, mild soreness in foot, no fever, no n/v/d. - Physical Exam Vitals/I&O's: Vital Signs Temp Pulse Resp BP Pulse Ox 98.2 F 89 16 124/70 H 93 07/18/20 08:16 07/18/20 08:16 07/18/20 08:16 07/18/20 08:16 07/18/20 08:16 Oxygen Flow Rate (L/min) 2 Oxygen Delivery Method Room Air Weight: 164.9 kg Body Mass Index (BMI) 50.7 Finger Stick Blood Glucose 138 Intake and Output for Last 24 Hours 07/16/20 07/17/20 07/18/20 23:59 23:59 23:59 Intake Total 590 / 1090 2840 / 3320 1256.5 / 1256.5 Output Total 1550 / 2000 1350 / 1350 Balance 590 / 1090 1290 / 1320 -93.5 / -93.5 General: Alert, Cooperative, No apparent distress Lungs: Clear to auscultation, Normal air movement Cardiovascular: Regular rate, Regular Rhythm Abdomen: Soft, Non Tender, Non-Distended Skin: No rashes Microbiology Past 72 Hours 07/16/20 17:45 Wound - Right Foot Gram Stain - Final 07/16/20 17:45 Wound - Right Foot Wound Culture - Preliminary Gram positive organism 07/17/20 00:01 Mucosa - Nose SARS-CoV-2 Antigen (Rapid) - Final Laboratory Results 07/17/20 05:42: Hemoglobin A1c 10.3 H 07/17/20 06:35: POC Glucose 178 H 07/17/20 08:00: S.aureus Protein A PCR POSITIVE H, MRSA (PCR) POSITIVE H 07/17/20 09:47: POC Glucose 167 H 07/17/20 13:28: POC Glucose 138 H 07/17/20 15:13: POC Glucose 134 H 07/17/20 16:30: Vancomycin Trough 18.0 H 07/17/20 17:08: POC Glucose 189 H 07/17/20 22:42: POC Glucose 185 H 07/18/20 06:10: WBC 7.4, RBC 4.94, Hgb 13.0, Hct 42.3, MCV 85.6, MCH 26.3 L, MCHC 30.7 L, RDW Std Deviation 42.9, RDW Coeff of Maria Fernanda 13.8, Plt Count 103 L, MPV 11.8 07/18/20 06:10: Sodium 136, Potassium 4.3, Chloride 102, Carbon Dioxide 32.0, Anion Gap 2 L, BUN 11, Creatinine 1.15, Estim Creat Clear Calc 81.85, Est GFR (MDRD) Af Amer 87, Est GFR (MDRD) Non-Af 72, BUN/Creatinine Ratio 9.6 L, Glucose 158 H, Calcium 8.3 L 07/18/20 06:36: POC Glucose 168 H Current Medications Acetaminophen (Acetaminophen 325 Mg Tablet) 650 mg PO Q6H PRN PRN PRN Reason: Pain Score 1-10/Temp > 100.7 F Last Admin: 07/17/20 17:48 Dose: 650 mg Documented by: Dextrose (Dextrose 50%-Water 25 Gm/50 Ml Disp.Syrin) 0 gm IV X1 PRN; Protocol PRN Reason: Hypoglycemia Enoxaparin Sodium (Enoxaparin 40 Mg/0.4 Ml Syringe) 40 mg SC DAILY [facility] Last Admin: 07/18/20 09:03 Dose: 40 mg Documented by: Glucagon (Glucagon 1 Mg/Ml Syringe) 1 mg IM .X1 PRN PRN Reason: Hypoglycemia Vancomycin IV Pharmacy to Dose (1 ea/ Sodium Chloride) 500 mls @ 250 mls/hr IV X1 PRN; Protocol PRN Reason: Rx to Dose Piperacillin Sod/Tazobactam (Sod 3.375 gm/ Sodium Chloride) 50 mls @ 12.5 mls/hr IV Q8 [facility] Last Admin: 07/18/20 06:38 Dose: 12.5 mls/hr Documented by: Vancomycin HCl 1,500 mg/ (Sodium Chloride) 530 mls @ 250 mls/hr IV Q8H [facility] Last Admin: 07/18/20 09:03 Dose: 250 mls/hr Documented by: Sodium Chloride () 250 mls @ 15 mls/hr IV .[id number] PRN PRN Reason: Saline Flush Last Infusion: 07/18/20 09:09 Dose: 0 mls/hr Documented by: Sodium Chloride () 250 mls @ 15 mls/hr IV .[id number] PRN PRN Reason: Additional IVPB Infusion Insulin Glargine (Insulin Glargine 100 Units/Ml Pen) 20 units SC QHS [facility] Last Admin: 07/17/20 22:43 Dose: 20 units Documented by: Insulin Human Lispro (Insulin Lispro 100 Unit/Ml Insuln.Pen) 0 unit SC ACHS [facility]; Protocol Last Admin: 07/18/20 06:38 Dose: 2 units Documented by: Lisinopril (Lisinopril 10 Mg Tablet) 10 mg PO DAILY [facility] Last Admin: 07/18/20 09:03 Dose: 10 mg Documented by: Morphine Sulfate (Morphine 2 Mg/Ml Syringe) 2 mg IV Q3H PRN PRN PRN Reason: Pain Score 6-10 Last Admin: 07/18/20 08:15 Dose: 2 mg Documented by: Ondansetron HCl (Ondansetron 4 Mg/2 Ml Vial) 4 mg IV Q8H PRN PRN PRN Reason: NAUSEA/VOMITING Oxycodone HCl (Oxycodone 5 Mg Tablet) 10 mg PO Q4H PRN PRN PRN Reason: Pain Score 4-5 Last Admin: 07/18/20 09:07 Dose: 10 mg Documented by: Sodium Chloride (0.9% Saline Lock 10 Ml Syringe) 10 - 40 ml IV UD PRN PRN Reason: SALINE FLUSH Last Admin: 07/18/20 03:26 Dose: 10 ml Documented by: Sodium Hypochlorite (Dakin's Nadya Half Strength (=0.25%)) 1 applic TOPICAL DAILY [facility]; Protocol Last Admin: 07/18/20 09:47 Dose: 1 applicatio Documented by: Medical Necessity - Tobacco Use Smoking Status: Current every day smoker Tobacco Use: Cigarettes Route of nutrition/ use of supplements: [] Nutritional Intake: [] IV Site: [] Faulkner Catheter: [] - Assessment/Plan Antibiotics: [] Assessment/Plan: [] R foot osteo - pcr (+) mrsa, now s/p OR 07/17/20 for partial ray resection. On vanc/zosyn. he is open to going to a facility. Will follow
[2020-07-18 11:11] LABS: Bedside Glucose 201 mg/dL (70-110)
--- NOTE | 2020-07-18 11:50 | CASEMGMT ---
ASHLEY PAZ in to discuss discharge planning with patient. Patient is agreeable to go to SNF at discharge. ASHLEY PAZ provided patient with list of in-network facilities. After reviewing list patient would like [facility]. ASHLEY PAZ updated ALLISON Morales.
--- NOTE | 2020-07-18 13:32 | CASEMGMT ---
Social Work Note Pt is agreeable to [facility]. SW placed a call to Sonja at [facility] and provided referral. SW faxed referral. Plan: [facility] pending acceptance and pre-cert Bella Morales MSW, AUTOMATIC STEEL TIE ADJUSTER
[2020-07-18 14:13] VITALS: BP 110/80; PULSE 71; RESP 16; TEMP 36.5; O2SAT 92
--- NOTE | 2020-07-18 15:50 | CASEMGMT ---
Social Work Note SW received call from Sonja at [facility] stating pt exceeds their weight limit, unable to accept pt. SW in to speak with pt. SW updated pt that [facility] is not able to accept pt. Pt states next choice is [facility]. ALLISON placed a call to [facility] and spoke with Mila. Mila states admissions has left for the day. ALLISON informed Mila that this worker will be faxing a referral over for pt. Mila states she will relay the message to admissions for tomorrow. Plan: SNF pending acceptance and pre-cert Bella Morales HEAD ATHLETIC TRAINER/STRENGTH COACH, RFID SPECIALIST
[2020-07-18 16:00] LABS: Bedside Glucose 150 mg/dL (70-110)
--- NOTE | 2020-07-18 16:09 | CHAPLAIN ---
Type of Pastoral Visit _x__ Initial Visit ___ Follow-up Visit ___ On-call Visit ___ General Patient Visit ___ Spiritual Assessment ___ Family Conference ___ Bereavement ___ Rapid Response ___ Code Blue ___ Other (describe below) Pastoral Care Referral From _x__ Patient ___ Family ___ Nurse ___ Physician ___ Chiropractic Teacher ___ Tyre Fitter ___ Other (describe below) Sacrament/Intervention _x__ Active listening ___ Anointing ___ Jehovah'S Witness ___ Bereavement ___ Communion _x__ Cami exploration ___ _x__ Life review _x__ Prayer ___ Reconciliation ___ Sacrament of Sick _x__ Supportive presence ___ Wedding ___ Other (describe below) Pastoral Comments
[2020-07-18 17:37] LABS: Vancomycin, Trough Level 21.6 ug/mL (5.0-15.0)
--- NOTE | 2020-07-18 19:32 | PCM.RX.CS ---
Consult Pharmacy has been consulted to manage selected antiobiotic: Vancomycin Type of Consult: Follow-up Suspected Infection: Osteomyelitis Prior Doses of Antibiotics Received/Current Regimen: Currently on 1500mg iv q8h. Labs: Sodium 136 mmol/L (136-145) 07/18/20 06:10 Potassium 4.3 mmol/L (3.5-5.1) 07/18/20 06:10 Chloride 102 mmol/L (98-107) 07/18/20 06:10 Carbon Dioxide 32.0 mmol/L (21.0-32.0) 07/18/20 06:10 Anion Gap 2 (5-15) L 07/18/20 06:10 BUN 11 mg/dL (7-18) 07/18/20 06:10 Creatinine 1.15 mg/dL (0.70-1.30) 07/18/20 06:10 Est GFR (MDRD) Af Amer 87 mL/min (>60) 07/18/20 06:10 Est GFR (MDRD) Non-Af 72 mL/min (>60) 07/18/20 06:10 BUN/Creatinine Ratio 9.6 RATIO (10-20) L 07/18/20 06:10 Glucose 158 mg/dL (74-106) H 07/18/20 06:10 Vancomycin Trough 21.6 ug/mL (5.0-15.0) H 07/18/20 16:35 Microbiology: Microbiology 07/16/20 17:45 Wound - Right Foot Gram Stain - Final 07/16/20 17:45 Wound - Right Foot Wound Culture - Preliminary Staphylococcus aureus Gram negative carlos Gram positive carlos 07/17/20 13:31 Bone - Right Foot Gram Stain - Final 07/17/20 13:31 Bone - Right Foot Wound Culture - Preliminary No growth-Final to follow 07/17/20 13:02 Bone - Right Foot Gram Stain - Final 07/17/20 13:02 Bone - Right Foot Wound Culture - Preliminary Mixed Gram Positive Organisms 07/17/20 00:01 Mucosa - Nose SARS-CoV-2 Antigen (Rapid) - Final Weight used for dosin kg Estimated Creatinine Clearance: >100ml/min Goal Trough: 15-20 mcg/mL Pharmacy Plan for Drug Dosing: Trough today was 21.6 (goal 15-20mcg/ml). Will hold further dosing and get a random level in AM 1.8.21. Will determine further dosing at that time. Pharmacy Service will continue to monitor and adjust dosing as required. Follow-Up Labs: Trough Vancomycin - random level 07.19.20 @0600
[2020-07-18 20:15] VITALS: BP 130/72; PULSE 86; RESP 18; TEMP 36.7; O2SAT 94
[2020-07-18 21:45] LABS: Bedside Glucose 192 mg/dL (70-110)
[2020-07-19 01:58] VITALS: BP 130/75; PULSE 78; RESP 18; TEMP 36.5; O2SAT 93
[2020-07-19] MEDS: 0.9% Saline Lock 10 ML Syringe IV (02:03)
[2020-07-19] MEDS: Morphine 2 MG/ML Syringe IV (02:03)
[2020-07-19] MEDS: oxyCODONE 5 MG Tablet 10 MG PO ×3 (06:27→19:37)
[2020-07-19 07:36] LABS: Vancomycin, Random Level 18.1 ug/mL (0.0-15.0)
[2020-07-19 07:47] VITALS: BP 132/79; PULSE 82; RESP 16; TEMP 36.4; O2SAT 98
--- NOTE | 2020-07-19 07:47 | PCM.RX.CS ---
Consult Pharmacy has been consulted to manage selected antiobiotic: Vancomycin Type of Consult: Follow-up Suspected Infection: Osteomyelitis Prior Doses of Antibiotics Received/Current Regimen: Was on 1500mg iv q8h. Held 07.18.20 due to trough level 21.6. Labs: Sodium 136 mmol/L (136-145) 07/18/20 06:10 Potassium 4.3 mmol/L (3.5-5.1) 07/18/20 06:10 Chloride 102 mmol/L (98-107) 07/18/20 06:10 Carbon Dioxide 32.0 mmol/L (21.0-32.0) 07/18/20 06:10 Anion Gap 2 (5-15) L 07/18/20 06:10 BUN 11 mg/dL (7-18) 07/18/20 06:10 Creatinine 1.15 mg/dL (0.70-1.30) 07/18/20 06:10 Est GFR (MDRD) Af Amer 87 mL/min (>60) 07/18/20 06:10 Est GFR (MDRD) Non-Af 72 mL/min (>60) 07/18/20 06:10 BUN/Creatinine Ratio 9.6 RATIO (10-20) L 07/18/20 06:10 Glucose 158 mg/dL (74-106) H 07/18/20 06:10 Vancomycin Trough 21.6 ug/mL (5.0-15.0) H 07/18/20 16:35 Random Vancomycin 18.1 ug/mL (0.0-15.0) H 07/19/20 06:45 Microbiology: Microbiology 07/16/20 17:45 Wound - Right Foot Gram Stain - Final 07/16/20 17:45 Wound - Right Foot Wound Culture - Preliminary Staphylococcus aureus Gram negative carlos Gram positive carlos 07/17/20 13:31 Bone - Right Foot Gram Stain - Final 07/17/20 13:31 Bone - Right Foot Wound Culture - Preliminary No growth-Final to follow 07/17/20 13:02 Bone - Right Foot Gram Stain - Final 07/17/20 13:02 Bone - Right Foot Wound Culture - Preliminary Mixed Gram Positive Organisms 07/17/20 00:01 Mucosa - Nose SARS-CoV-2 Antigen (Rapid) - Final Weight used for dosin kg Estimated Creatinine Clearance: >100ml/min Goal Trough: 15-20 mcg/mL Pharmacy Plan for Drug Dosing: Random level this AM 18.1 (goal 15-20mcg/ml) 14 hrs post last dose. Renal same. Will change dose from 1500mg iv q8h to 1500mg iv q12h starting this AM. A repeat trough is ordered for 07.20.20 before 4th dose of new regimen. Pharmacy Service will continue to monitor and adjust dosing as required. Follow-Up Labs: Trough Vancomycin - 1.9.21 @2130 before 2200 dose
--- NOTE | 2020-07-19 08:02 | PN_ITS ---
Subjective: Patient was seen this morning for follow up on feet. He relates he slept well, no new complaints. No fever, chills, nausea or vomiting. He is looking at nursing facility options. - Physical Exam Vitals/I&O's: Vital Signs Temp Pulse Resp BP Pulse Ox 97.6 F L 82 16 132/79 H 98 07/19/20 07:47 07/19/20 07:47 07/19/20 07:47 07/19/20 07:47 07/19/20 07:47 Oxygen Flow Rate (L/min) 2 Oxygen Delivery Method Room Air Weight: 164.9 kg Body Mass Index (BMI) 50.7 Finger Stick Blood Glucose 138 Intake and Output for Last 24 Hours 07/17/20 07/18/20 07/19/20 23:59 23:59 23:59 Intake Total 2840 / 3320 3470.0 / 3820.0 850 / 850 Output Total 1550 / 2000 3475 / 4775 3075 / 3075 Balance 1290 / 1320 -5.0 / -955.0 -2225 / -2225 General: Alert, Oriented x3, Cooperative, No apparent distress Extremities: Capillary Refill Less than 3 Seconds, Edema - bilateral lower extremity with chronic venous stasis skin changes., - - s/p right foot debridement 4th and 5th rays, done to bone, tissues healthy and viable, bleeding controlled at this time, no purulence, no visible abscess, no necrosis noted Psych/Mental Status: Appropriate, Alert and oriented to time, place, person, mood and affect Microbiology Past 72 Hours 07/16/20 17:45 Wound - Right Foot Gram Stain - Final 07/16/20 17:45 Wound - Right Foot Wound Culture - Preliminary Staphylococcus aureus Gram negative carlos Gram positive carlos 07/17/20 13:31 Bone - Right Foot Gram Stain - Final 07/17/20 13:31 Bone - Right Foot Wound Culture - Preliminary No growth-Final to follow 07/17/20 13:02 Bone - Right Foot Gram Stain - Final 07/17/20 13:02 Bone - Right Foot Wound Culture - Preliminary Mixed Gram Positive Organisms 07/17/20 00:01 Mucosa - Nose SARS-CoV-2 Antigen (Rapid) - Final Laboratory Results 07/17/20 08:00: S.aureus Protein A PCR POSITIVE H, MRSA (PCR) POSITIVE H 07/18/20 11:02: POC Glucose 201 H 07/18/20 15:57: POC Glucose 150 H 07/18/20 16:35: Vancomycin Trough 21.6 H 07/18/20 21:39: POC Glucose 192 H 07/19/20 06:45: Random Vancomycin 18.1 H Current Medications Acetaminophen (Acetaminophen 325 Mg Tablet) 650 mg PO Q6H PRN PRN PRN Reason: Pain Score 1-10/Temp > 100.7 F Last Admin: 07/17/20 17:48 Dose: 650 mg Documented by: Dextrose (Dextrose 50%-Water 25 Gm/50 Ml Disp.Syrin) 0 gm IV X1 PRN; Protocol PRN Reason: Hypoglycemia Enoxaparin Sodium (Enoxaparin 40 Mg/0.4 Ml Syringe) 40 mg SC DAILY [facility] Last Admin: 07/18/20 09:03 Dose: 40 mg Documented by: Glucagon (Glucagon 1 Mg/Ml Syringe) 1 mg IM .X1 PRN PRN Reason: Hypoglycemia Vancomycin IV Pharmacy to Dose (1 ea/ Sodium Chloride) 500 mls @ 250 mls/hr IV X1 PRN; Protocol PRN Reason: Rx to Dose Piperacillin Sod/Tazobactam (Sod 3.375 gm/ Sodium Chloride) 50 mls @ 12.5 mls/hr IV Q8 [facility] Last Admin: 07/19/20 05:23 Dose: 12.5 mls/hr Documented by: Sodium Chloride () 250 mls @ 15 mls/hr IV .[id number] PRN PRN Reason: Saline Flush Last Infusion: 07/18/20 15:20 Dose: Infused Documented by: Sodium Chloride () 250 mls @ 15 mls/hr IV .[id number] PRN PRN Reason: Additional IVPB Infusion Vancomycin HCl 1,500 mg/ (Sodium Chloride) 530 mls @ 250 mls/hr IV Q12H [facility] Insulin Glargine (Insulin Glargine 100 Units/Ml Pen) 20 units SC QHS [facility] Last Admin: 07/18/20 21:41 Dose: 20 units Documented by: Insulin Human Lispro (Insulin Lispro 100 Unit/Ml Insuln.Pen) 0 unit SC ACHS [facility]; Protocol Last Admin: 07/19/20 06:23 Dose: Not Given Documented by: Lisinopril (Lisinopril 10 Mg Tablet) 10 mg PO DAILY [facility] Last Admin: 07/18/20 09:03 Dose: 10 mg Documented by: Morphine Sulfate (Morphine 2 Mg/Ml Syringe) 2 mg IV Q3H PRN PRN PRN Reason: Pain Score 6-10 Last Admin: 07/19/20 02:03 Dose: 2 mg Documented by: Ondansetron HCl (Ondansetron 4 Mg/2 Ml Vial) 4 mg IV Q8H PRN PRN PRN Reason: NAUSEA/VOMITING Oxycodone HCl (Oxycodone 5 Mg Tablet) 10 mg PO Q4H PRN PRN PRN Reason: Pain Score 4-5 Last Admin: 07/19/20 06:27 Dose: 10 mg Documented by: Sodium Chloride (0.9% Saline Lock 10 Ml Syringe) 10 - 40 ml IV UD PRN PRN Reason: SALINE FLUSH Last Admin: 07/19/20 02:03 Dose: 10 ml Documented by: Sodium Hypochlorite (Dakin's Nadya Half Strength (=0.25%)) 1 applic TOPICAL DAILY [facility]; Protocol Last Admin: 07/18/20 09:47 Dose: 1 applicatio Documented by: Medical Necessity - Tobacco Use Smoking Status: Current every day smoker Tobacco Use: Cigarettes Assessment/Plan Right foot ulcer down to necrotic bone w/ osteomyelitis s/p debridement on 07/17/2020 Diabetic neuropathy bilateral foot Uncontrolled diabetes Tobacco use Recurrent left foot ulcer down to subcutaneous tissue Reviewed diagnostic data. Awaiting surgical pathology results. Plan for a wound vac to right foot today. No weightbearing right foot, keep right foot elevated at all times. Also new LEAS noninvasive vascular studies were ordered - reviewed and appears to have good arterial flow to feet. Leg edema: patient with venous insufficiency, ordered venous doppler for further evaluation. Patient is on broad spectrum antibiotics, Vanc and Zosyn, ID/Dr. Soto on culture. Reviewed culture results. Reviewed importance of strict blood sugar control as well as tobacco cessation to help optimize healing. d/c planning - recommend nursing facility placement if possible. Podiatry will continue to follow closely.
--- NOTE | 2020-07-19 08:04 | VDLE_ITS ---
Reason For Study: Swelling RIGHT LEFT GSV is normal. GSV is normal. CFV is compressible, spontaneous, phasic, CFV is compressible, spontaneous, phasic, competent and demonstrates normal competent, and demonstrates normal augmentation. augmentation. FV is compressible, spontaneous, phasic, FV is compressible, spontaneous, phasic, competent and demonstrates normal competent and demonstrates normal augmentation. augmentation. PTV is compressible. POP V is compressible, spontaneous, phasic, RT PerV is compressible. competent and demonstrates normal Rt PopV and Rt T/P Trunk are dilated and augmentation. partially compressible consistent with acute T/P Trunk is compressible. DVT. PTV is compressible. Procedure LT PerV is compressible. Exam performed portable in patient room. A preliminary report was called and/or faxed to Olga RAMIREZ. Interpretation Summary Acute deep vein thrombosis is noted in the right popliteal vein. Acute deep vein thrombosis is noted in the right tibio-peroneal trunk. The remainder of the right lower extremity deep venous system is patent and compressible. Deep veins of the left lower extremity are patent and compressible segmentally. There is no evidence of left lower extremity deep vein thrombosis. Valvular competence appears intact within the proximal deep venous systems bilaterally. The great saphenous veins appear bilaterally patent and compressible segmentally. Ordering Physician: Jesus Ramos Referring Physician: Gavin Raymundo Performed By: Tabatha Mensah, MARCOS, RVT
[2020-07-19 08:33] LABS: Bedside Glucose 137 mg/dL (70-110)
[2020-07-19] MEDS: Enoxaparin 40 MG/0.4 ML Syringe SC (09:39)
[2020-07-19] MEDS: Lisinopril 10 MG Tablet PO (09:40)
--- NOTE | 2020-07-19 10:31 | PN_ITS ---
Subjective: Chief complaint: Follow-up after admission for infected diabetic right plantar foot nonhealing ulcer/wound/right foot abscess/osteomyelitis. Patient seen and examined. No acute events overnight. Still complaining of right foot pain, gets better with pain medications. No other complaints. Denied fever or chills. Vital signs are stable. - Physical Exam Vitals/I&O's: Vital Signs Temp Pulse Resp BP Pulse Ox 97.6 F L 82 16 132/79 H 98 07/19/20 07:47 07/19/20 07:47 07/19/20 07:47 07/19/20 07:47 07/19/20 07:47 Oxygen Flow Rate (L/min) 2 Oxygen Delivery Method Room Air Weight: 363 lb 8.676 oz Body Mass Index (BMI) 50.7 Finger Stick Blood Glucose 138 Intake and Output for Last 24 Hours 07/17/20 07/18/20 07/19/20 23:59 23:59 23:59 Intake Total 2840 / 3320 3470.0 / 3820.0 900 / 900 Output Total 1550 / 2000 3475 / 4775 3075 / 3075 Balance 1290 / 1320 -5.0 / -955.0 -2175 / -2175 General: Alert, Oriented x3, Cooperative, No apparent distress HEENT: Atraumatic, PERRLA, EOMI, Normocephalic Oral: Moist Mucosa, No Gingival or Mucosal Lesions/ Ulcerations Neck: Supple, No JVD, Negative Carotid Bruits, Trachea Midline, Thyroid Normal Size and Texture Lungs: Clear to auscultation, No rhonchi, No wheeze, No rales, Diminished Cardiovascular: Regular rate, Regular Rhythm, Normal S1, Normal S2, PMI Normal Abdomen: Bowel Sounds Present, Soft, Non Tender, Non-Distended, No Hepato- splenomegaly, Obese Extremities: No clubbing, No cyanosis, Edema - Stasis dermatitis, lymphedema. Skin: No rashes, Ulcer/ Wound Lymphatic: No Cervical, Supraclavicular, or Inguinal Adenopathy Neurological: Cranial nerves II-XII grossly intact, Neuro grossly intact Psych/Mental Status: Normal Affect, Appropriate, Alert and oriented to time, place, person, mood and affect Microbiology Past 72 Hours 07/17/20 13:02 Bone - Right Foot Gram Stain - Final 07/17/20 13:02 Bone - Right Foot Wound Culture - Preliminary Staphylococcus aureus Alpha Hemolytic Streptococcus Beta streptococcus 07/17/20 13:02 Bone - Right Foot Anaerobic Culture - Preliminary Checking for anaerobes, further studies to follow. 07/16/20 17:45 Wound - Right Foot Gram Stain - Final 07/16/20 17:45 Wound - Right Foot Wound Culture - Preliminary Meth. resistant Staph. aureus Pseudomonas stutzeri Gram positive carlos 07/16/20 17:45 Wound - Right Foot Anaerobic Culture - Preliminary Checking for anaerobes, further studies to follow. 07/17/20 13:31 Bone - Right Foot Gram Stain - Final 07/17/20 13:31 Bone - Right Foot Wound Culture - Preliminary No growth-Final to follow 07/17/20 13:31 Bone - Right Foot Anaerobic Culture - Preliminary No growth in 48 hours. 07/17/20 00:01 Mucosa - Nose SARS-CoV-2 Antigen (Rapid) - Final Laboratory Results 07/17/20 08:00: S.aureus Protein A PCR POSITIVE H, MRSA (PCR) POSITIVE H 07/18/20 11:02: POC Glucose 201 H 07/18/20 15:57: POC Glucose 150 H 07/18/20 16:35: Vancomycin Trough 21.6 H 07/18/20 21:39: POC Glucose 192 H 07/19/20 06:23: POC Glucose 137 H 07/19/20 06:45: Random Vancomycin 18.1 H Microbiology 07/17/20 13:02 Bone - Right Foot Gram Stain - Final 07/17/20 13:02 Bone - Right Foot Wound Culture - Preliminary Staphylococcus aureus Alpha Hemolytic Streptococcus Beta streptococcus 07/17/20 13:02 Bone - Right Foot Anaerobic Culture - Preliminary Checking for anaerobes, further studies to follow. 07/16/20 17:45 Wound - Right Foot Gram Stain - Final 07/16/20 17:45 Wound - Right Foot Wound Culture - Preliminary Meth. resistant Staph. aureus Pseudomonas stutzeri Gram positive carlos 07/16/20 17:45 Wound - Right Foot Anaerobic Culture - Preliminary Checking for anaerobes, further studies to follow. 07/17/20 13:31 Bone - Right Foot Gram Stain - Final 07/17/20 13:31 Bone - Right Foot Wound Culture - Preliminary No growth-Final to follow 07/17/20 13:31 Bone - Right Foot Anaerobic Culture - Preliminary No growth in 48 hours. 07/17/20 00:01 Mucosa - Nose SARS-CoV-2 Antigen (Rapid) - Final Current Medications Acetaminophen (Acetaminophen 325 Mg Tablet) 650 mg PO Q6H PRN PRN PRN Reason: Pain Score 1-10/Temp > 100.7 F Last Admin: 07/17/20 17:48 Dose: 650 mg Documented by: Dextrose (Dextrose 50%-Water 25 Gm/50 Ml Disp.Syrin) 0 gm IV X1 PRN; Protocol PRN Reason: Hypoglycemia Enoxaparin Sodium (Enoxaparin 40 Mg/0.4 Ml Syringe) 40 mg SC DAILY [facility] Last Admin: 07/19/20 09:39 Dose: 40 mg Documented by: Glucagon (Glucagon 1 Mg/Ml Syringe) 1 mg IM .X1 PRN PRN Reason: Hypoglycemia Vancomycin IV Pharmacy to Dose (1 ea/ Sodium Chloride) 500 mls @ 250 mls/hr IV X1 PRN; Protocol PRN Reason: Rx to Dose Piperacillin Sod/Tazobactam (Sod 3.375 gm/ Sodium Chloride) 50 mls @ 12.5 mls/hr IV Q8 [facility] Last Infusion: 07/19/20 09:29 Dose: Infused Documented by: Sodium Chloride () 250 mls @ 15 mls/hr IV .[id number] PRN PRN Reason: Saline Flush Last Infusion: 07/18/20 15:20 Dose: Infused Documented by: Sodium Chloride () 250 mls @ 15 mls/hr IV .[id number] PRN PRN Reason: Additional IVPB Infusion Vancomycin HCl 1,500 mg/ (Sodium Chloride) 530 mls @ 250 mls/hr IV Q12H [facility] Last Admin: 07/19/20 09:40 Dose: 250 mls/hr Documented by: Insulin Glargine (Insulin Glargine 100 Units/Ml Pen) 20 units SC QHS [facility] Last Admin: 07/18/20 21:41 Dose: 20 units Documented by: Insulin Human Lispro (Insulin Lispro 100 Unit/Ml Insuln.Pen) 0 unit SC ACHS [facility]; Protocol Last Admin: 07/19/20 06:23 Dose: Not Given Documented by: Lisinopril (Lisinopril 10 Mg Tablet) 10 mg PO DAILY [facility] Last Admin: 07/19/20 09:40 Dose: 10 mg Documented by: Morphine Sulfate (Morphine 2 Mg/Ml Syringe) 2 mg IV Q3H PRN PRN PRN Reason: Pain Score 6-10 Last Admin: 07/19/20 02:03 Dose: 2 mg Documented by: Ondansetron HCl (Ondansetron 4 Mg/2 Ml Vial) 4 mg IV Q8H PRN PRN PRN Reason: NAUSEA/VOMITING Oxycodone HCl (Oxycodone 5 Mg Tablet) 10 mg PO Q4H PRN PRN PRN Reason: Pain Score 4-5 Last Admin: 07/19/20 06:27 Dose: 10 mg Documented by: Sodium Chloride (0.9% Saline Lock 10 Ml Syringe) 10 - 40 ml IV UD PRN PRN Reason: SALINE FLUSH Last Admin: 07/19/20 02:03 Dose: 10 ml Documented by: Sodium Hypochlorite (Dakin's Nadya Half Strength (=0.25%)) 1 applic TOPICAL DAILY [facility]; Protocol Last Admin: 07/19/20 09:40 Dose: Not Given Documented by: Medical Necessity - Tobacco Use Smoking Status: Current every day smoker Tobacco Use: Cigarettes Assessment/Plan This is a 60 years old male patient presented to the emergency room because of increasing pain and swelling of the dorsum of the right foot in the setting of chronic nonhealing diabetic right foot ulcer, found to have infected necrotic nonhealing plantar ulcer of the right foot with osteomyelitis and he underwent surgery. #1 Polymicrobial infected/necrotic nonhealing diabetic plantar ulcer of the right foot/osteomyelitis of the fourth and fifth metatarsals: Status post debridement, partial fourth and fifth ray amputation of the right foot, postope rative day 2, status post wound VAC placement today. Remained on IV vancomycin and Zosyn. He has been afebrile, no leukocytosis. MRSA screen was positive. Wound cultures revealed MSSA, Pseudomonas stutzeri and gram-negative rods, final is pending. Podiatry medicine as well as infectious disease are on the case. Plan to continue same treatment, patient will need placement to longterm facility. #2 type 2 diabetes mellitus: Uncontrolled. Currently, blood sugar has been stable. Currently, he is on Lantus and sliding scale and sliding scale, Metformin held. Hemoglobin A1c was 10.6%. Plan to continue same treatment. #3 hypertension: Blood pressure stable, continue lisinopril. #4 chronic thrombocytopenia: Unclear etiology. Platelet count is at baseline, no active bleeding. Plan to monitor. #5 DVT prophylaxis: Subcu Lovenox. This note was generated with [employer] dictation software. It may contain incorrect words, spelling, and punctuation that were not noted in checking the note before signing. Inpatient E&M: [id number] Subs Hosp L2
--- NOTE | 2020-07-19 11:22 | CASEMGMT ---
Social Work Note SW placed a call to [facility] for update on referral. Admissions not available. SW left message for admissions to call this worker back regarding referral. SW waiting for call back. Plan: SNF pending acceptance and pre-cert Bella Morales MSW, REAL ESTATE INSPECTOR
[2020-07-19] MEDS: Insulin Lispro 100 UNIT/ML INSULN.PEN SC ×2 (11:26→21:40)
[2020-07-19 11:30] VITALS: BP 136/72; PULSE 84; RESP 16; TEMP 37; O2SAT 94
[2020-07-19 11:30] LABS: Bedside Glucose 205 mg/dL (70-110)
--- NOTE | 2020-07-19 12:10 | CASEMGMT ---
Addendum entered by Bella Morales 07/19/20 15:55: IV antibiotics scripts received. ALLISON placed a call to Rosa at [facility] and left message regarding IV antibiotics and stop date. SW waiting for call back. Addendum entered by Bella Morales 07/19/20 13:45: SW received call from Rosa at [facility] stating she would like to know how long pt will be on IV antibiotics. Rosa states that typically [facility] doesn't pay for IV antibiotics so she would like to know how long pt will be on IV antibiotics to determine costs and see if [facility] will accept or not. SW informed Rosa that the ID physician hasn't been in yet today, will get script for IV antibiotics once ID see's pt today. Rosa states understanding. Original Note: Social Work Note SW received call from Mary Ann at [facility] stating they are not able to accept pt as their weight limit is 350. SW in to speak with pt. SW updated pt that [facility] is not able to accept. SW informed pt that there are other SNF in [facility], and [place] that accept pt's insurance. Pt states he would be agreeable to the senior living [address] in [place], I think it is [facility]. SW informed pt that this worker can make referral to [facility]. SW asked pt if he had another choice in the event [facility] is not able to accept pt, and pt states if [facility] is not able to accept pt, pt will return home. Pt denied wanting to go to any other SNF. SW informed pt that this worker will update him on [facility] calls this worker regarding referral. Pt states understanding. SW placed a call to Rosa in admissions at [facility]. SW left message regarding referral. SW faxed referral. Plan: [facility] pending acceptance and pre-cert Bella Morales MIRROR INSTALLER, PANEL CUTTER
[2020-07-19 14:27] VITALS: BP 154/79; PULSE 83; RESP 16; TEMP 36.6; O2SAT 94
--- NOTE | 2020-07-19 15:13 | PN.ID_ITS ---
Subjective: Feeling ok, no fever - Physical Exam Vitals/I&O's: Vital Signs Temp Pulse Resp BP Pulse Ox 97.9 F 83 16 154/79 H 94 07/19/20 14:27 07/19/20 14:27 07/19/20 14:27 07/19/20 14:27 07/19/20 14:27 Oxygen Flow Rate (L/min) 2 Oxygen Delivery Method Room Air Weight: 164.9 kg Body Mass Index (BMI) 50.7 Finger Stick Blood Glucose 138 Intake and Output for Last 24 Hours 07/17/20 07/18/20 07/19/20 23:59 23:59 23:59 Intake Total 2840 / 3320 3470.0 / 3820.0 1880 / 1880 Output Total 1550 / 2000 3475 / 4775 4650 / 4650 Balance 1290 / 1320 -5.0 / -955.0 -2770 / -2770 General: Alert, Cooperative, No apparent distress Lungs: Clear to auscultation, Normal air movement Cardiovascular: Regular rate, Regular Rhythm Abdomen: Soft, Non Tender, Non-Distended Skin: Ulcer/ Wound - foot wrapped Microbiology Past 72 Hours 07/17/20 13:02 Bone - Right Foot Gram Stain - Final 07/17/20 13:02 Bone - Right Foot Wound Culture - Preliminary Staphylococcus aureus Alpha Hemolytic Streptococcus Streptococcus group B 07/17/20 13:02 Bone - Right Foot Anaerobic Culture - Preliminary Checking for anaerobes, further studies to follow. 07/16/20 17:45 Wound - Right Foot Gram Stain - Final 07/16/20 17:45 Wound - Right Foot Wound Culture - Preliminary Meth. resistant Staph. aureus Pseudomonas stutzeri Gram positive carlos 07/16/20 17:45 Wound - Right Foot Anaerobic Culture - Preliminary Checking for anaerobes, further studies to follow. 07/17/20 13:31 Bone - Right Foot Gram Stain - Final 07/17/20 13:31 Bone - Right Foot Wound Culture - Preliminary No growth-Final to follow 07/17/20 13:31 Bone - Right Foot Anaerobic Culture - Preliminary No growth in 48 hours. 07/17/20 00:01 Mucosa - Nose SARS-CoV-2 Antigen (Rapid) - Final Laboratory Results 07/18/20 15:57: POC Glucose 150 H 07/18/20 16:35: Vancomycin Trough 21.6 H 07/18/20 21:39: POC Glucose 192 H 07/19/20 06:23: POC Glucose 137 H 07/19/20 06:45: Random Vancomycin 18.1 H 07/19/20 11:22: POC Glucose 205 H Current Medications Acetaminophen (Acetaminophen 325 Mg Tablet) 650 mg PO Q6H PRN PRN PRN Reason: Pain Score 1-10/Temp > 100.7 F Last Admin: 07/17/20 17:48 Dose: 650 mg Documented by: Dextrose (Dextrose 50%-Water 25 Gm/50 Ml Disp.Syrin) 0 gm IV X1 PRN; Protocol PRN Reason: Hypoglycemia Enoxaparin Sodium (Enoxaparin 40 Mg/0.4 Ml Syringe) 40 mg SC DAILY [facility] Last Admin: 07/19/20 09:39 Dose: 40 mg Documented by: Glucagon (Glucagon 1 Mg/Ml Syringe) 1 mg IM .X1 PRN PRN Reason: Hypoglycemia Vancomycin IV Pharmacy to Dose (1 ea/ Sodium Chloride) 500 mls @ 250 mls/hr IV X1 PRN; Protocol PRN Reason: Rx to Dose Piperacillin Sod/Tazobactam (Sod 3.375 gm/ Sodium Chloride) 50 mls @ 12.5 mls/hr IV Q8 [facility] Last Admin: 07/19/20 14:20 Dose: 12.5 mls/hr Documented by: Sodium Chloride () 250 mls @ 15 mls/hr IV .[id number] PRN PRN Reason: Saline Flush Last Infusion: 07/18/20 15:20 Dose: Infused Documented by: Sodium Chloride () 250 mls @ 15 mls/hr IV .[id number] PRN PRN Reason: Additional IVPB Infusion Vancomycin HCl 1,500 mg/ (Sodium Chloride) 530 mls @ 250 mls/hr IV Q12H [facility] Last Infusion: 07/19/20 12:14 Dose: Infused Documented by: Insulin Glargine (Insulin Glargine 100 Units/Ml Pen) 20 units SC QHS [facility] Last Admin: 07/18/20 21:41 Dose: 20 units Documented by: Insulin Human Lispro (Insulin Lispro 100 Unit/Ml Insuln.Pen) 0 unit SC ACHS [facility]; Protocol Last Admin: 07/19/20 11:26 Dose: 4 units Documented by: Lisinopril (Lisinopril 10 Mg Tablet) 10 mg PO DAILY [facility] Last Admin: 07/19/20 09:40 Dose: 10 mg Documented by: Morphine Sulfate (Morphine 2 Mg/Ml Syringe) 2 mg IV Q3H PRN PRN PRN Reason: Pain Score 6-10 Last Admin: 07/19/20 02:03 Dose: 2 mg Documented by: Ondansetron HCl (Ondansetron 4 Mg/2 Ml Vial) 4 mg IV Q8H PRN PRN PRN Reason: NAUSEA/VOMITING Oxycodone HCl (Oxycodone 5 Mg Tablet) 10 mg PO Q4H PRN PRN PRN Reason: Pain Score 4-5 Last Admin: 07/19/20 11:29 Dose: 10 mg Documented by: Sodium Chloride (0.9% Saline Lock 10 Ml Syringe) 10 - 40 ml IV UD PRN PRN Reason: SALINE FLUSH Last Admin: 07/19/20 02:03 Dose: 10 ml Documented by: Sodium Hypochlorite (Dakin's Nadya Half Strength (=0.25%)) 1 applic TOPICAL DAILY [facility]; Protocol Last Admin: 07/19/20 09:40 Dose: Not Given Documented by: Medical Necessity - Tobacco Use Smoking Status: Current every day smoker Tobacco Use: Cigarettes Route of nutrition/ use of supplements: [] Nutritional Intake: [] IV Site: [] [place]ulkner Catheter: [] - Assessment/Plan Antibiotics: [] Assessment/Plan: [] R foot osteo - pcr (+) mrsa, now s/p OR 07/17/20 for partial ray resection. On vanc/zosyn. He is open to going to a facility. Wound and surg cx with MRSA, strep x2, GPR, pseudomonas. Will write for picc and 6 weeks vanc/zosyn, stop date 08/28/20, weekly bmp, cbc, vanc trough, and esr. ID followup in 2 weeks. If he is not going to a facility, will have to see how abx can be simplified. Will follow
--- NOTE | 2020-07-19 16:10 | NURSING ---
called access specialist notified that pt ordered picc line. they will call back with time.
[2020-07-19 16:21] LABS: Bedside Glucose 138 mg/dL (70-110)
[2020-07-19 20:18] VITALS: BP 148/70; PULSE 85; RESP 18; TEMP 36.8; O2SAT 94
[2020-07-19] MEDS: APIXABAN 5 MG TABLET PO (21:39)
[2020-07-19 21:41] LABS: Bedside Glucose 194 mg/dL (70-110)
[2020-07-20 02:23] VITALS: BP 144/70; PULSE 81; RESP 18; TEMP 36.5; O2SAT 95
[2020-07-20] MEDS: Insulin Lispro 100 UNIT/ML INSULN.PEN SC ×4 (06:44→21:33)
[2020-07-20] MEDS: oxyCODONE 5 MG Tablet 10 MG PO ×4 (06:47→21:42)
[2020-07-20 06:51] LABS: Bedside Glucose 178 mg/dL (70-110)
[2020-07-20 08:25] VITALS: BP 126/77; PULSE 76; RESP 18; TEMP 36.5; O2SAT 96
--- NOTE | 2020-07-20 09:05 | PCM.PROGNOTE ---
Subjective: Chief complaint: Follow-up after admission for infected diabetic right plantar foot nonhealing ulcer/wound/right foot abscess/osteomyelitis. He developed acute right lower extremity DVT. Patient seen and examined. No acute events overnight. Right foot pain is getting better, manageable with current pain medications. No other complaints. Vital signs are stable. - Physical Exam Vitals/I&O's: Vital Signs Temp Pulse Resp BP Pulse Ox 97.7 F L 81 18 144/70 H 95 07/20/20 02:23 07/20/20 02:23 07/20/20 02:23 07/20/20 02:23 07/20/20 02:23 Oxygen Flow Rate (L/min) 2 Oxygen Delivery Method Room Air Weight: 363 lb 8.676 oz Body Mass Index (BMI) 50.7 Finger Stick Blood Glucose 138 Intake and Output for Last 24 Hours 07/18/20 07/19/20 07/20/20 23:59 23:59 23:59 Intake Total 3470.0 / 3820.0 3110 / 3360 800 / 800 Output Total 3475 / 4775 5600 / 7500 4900 / 4900 Balance -5.0 / -955.0 -2490 / -4140 -4100 / -4100 General: Alert, Oriented x3, Cooperative, No apparent distress HEENT: Atraumatic, PERRLA, EOMI, Normocephalic Oral: Moist Mucosa, No Gingival or Mucosal Lesions/ Ulcerations Neck: Supple, No JVD, Negative Carotid Bruits, Trachea Midline, Thyroid Normal Size and Texture Lungs: Clear to auscultation, Normal air movement, No rhonchi, No wheeze, No rales Cardiovascular: Regular rate, Regular Rhythm, Normal S1, Normal S2, PMI Normal Abdomen: Bowel Sounds Present, Soft, Non Tender, Non-Distended, No Hepato-splenomegaly, Obese Extremities: No clubbing, No cyanosis, Edema - Stasis dermatitis, lymphedema. Skin: No rashes, Ulcer/ Wound Lymphatic: No Cervical, Supraclavicular, or Inguinal Adenopathy Neurological: Cranial nerves II-XII grossly intact, Neuro grossly intact Psych/Mental Status: Normal Affect, Appropriate, Alert and oriented to time, place, person, mood and affect Microbiology Past 72 Hours 07/16/20 17:45 Wound - Right Foot Gram Stain - Final 07/16/20 17:45 Wound - Right Foot Wound Culture - Preliminary Meth. resistant Staph. aureus Pseudomonas stutzeri Gram positive carlos 07/16/20 17:45 Wound - Right Foot Anaerobic Culture - Preliminary Checking for anaerobes, further studies to follow. 07/17/20 13:02 Bone - Right Foot Gram Stain - Final 07/17/20 13:02 Bone - Right Foot Wound Culture - Final Meth. resistant Staph. aureus Pediococcus pentosaceus Streptococcus agalactiae (B) 07/17/20 13:02 Bone - Right Foot Anaerobic Culture - Preliminary Checking for anaerobes, further studies to follow. 07/17/20 13:31 Bone - Right Foot Gram Stain - Final 07/17/20 13:31 Bone - Right Foot Wound Culture - Preliminary No growth-Final to follow 07/17/20 13:31 Bone - Right Foot Anaerobic Culture - Preliminary No growth in 48 hours. Laboratory Results 07/19/20 11:22: POC Glucose 205 H 07/19/20 16:18: POC Glucose 138 H 07/19/20 21:37: POC Glucose 194 H 07/20/20 06:43: POC Glucose 178 H Current Medications Acetaminophen (Acetaminophen 325 Mg Tablet) 650 mg PO Q6H PRN PRN PRN Reason: Pain Score 1-10/Temp > 100.7 F Last Admin: 07/17/20 17:48 Dose: 650 mg Documented by: Apixaban (Apixaban 5 Mg Tablet) 5 mg PO BID [facility] Last Admin: 07/19/20 21:39 Dose: 5 mg Documented by: Dextrose (Dextrose 50%-Water 25 Gm/50 Ml Disp.Syrin) 0 gm IV X1 PRN; Protocol PRN Reason: Hypoglycemia Glucagon (Glucagon 1 Mg/Ml Syringe) 1 mg IM .X1 PRN PRN Reason: Hypoglycemia Vancomycin IV Pharmacy to Dose (1 ea/ Sodium Chloride) 500 mls @ 250 mls/hr IV X1 PRN; Protocol PRN Reason: Rx to Dose Piperacillin Sod/Tazobactam (Sod 3.375 gm/ Sodium Chloride) 50 mls @ 12.5 mls/hr IV Q8 [facility] Last Admin: 07/20/20 06:41 Dose: 12.5 mls/hr Documented by: Sodium Chloride () 250 mls @ 15 mls/hr IV .[id number] PRN PRN Reason: Saline Flush Last Infusion: 07/18/20 15:20 Dose: Infused Documented by: Sodium Chloride () 250 mls @ 15 mls/hr IV .[id number] PRN PRN Reason: Additional IVPB Infusion Vancomycin HCl 1,500 mg/ (Sodium Chloride) 530 mls @ 250 mls/hr IV Q12H [facility] Last Infusion: 07/19/20 23:40 Dose: Infused Documented by: Insulin Glargine (Insulin Glargine 100 Units/Ml Pen) 20 units SC QHS [facility] Last Admin: 07/19/20 21:40 Dose: 20 units Documented by: Insulin Human Lispro (Insulin Lispro 100 Unit/Ml Insuln.Pen) 0 unit SC ACHS [facility]; Protocol Last Admin: 07/20/20 06:44 Dose: 2 units Documented by: Lisinopril (Lisinopril 10 Mg Tablet) 10 mg PO DAILY [facility] Last Admin: 07/19/20 09:40 Dose: 10 mg Documented by: Morphine Sulfate (Morphine 2 Mg/Ml Syringe) 2 mg IV Q3H PRN PRN PRN Reason: Pain Score 6-10 Last Admin: 07/19/20 02:03 Dose: 2 mg Documented by: Ondansetron HCl (Ondansetron 4 Mg/2 Ml Vial) 4 mg IV Q8H PRN PRN PRN Reason: NAUSEA/VOMITING Oxycodone HCl (Oxycodone 5 Mg Tablet) 10 mg PO Q4H PRN PRN PRN Reason: Pain Score 4-5 Last Admin: 07/20/20 06:47 Dose: 10 mg Documented by: Sodium Chloride (0.9% Saline Lock 10 Ml Syringe) 10 - 40 ml IV UD PRN PRN Reason: SALINE FLUSH Last Admin: 07/19/20 02:03 Dose: 10 ml Documented by: Sodium Hypochlorite (Dakin's Nadya Half Strength (=0.25%)) 1 applic TOPICAL DAILY [facility]; Protocol Last Admin: 07/19/20 09:40 Dose: Not Given Documented by: Medical Necessity - Tobacco Use Smoking Status: Current every day smoker Tobacco Use: Cigarettes Assessment/Plan This is a 60 years old male patient presented to the emergency room because of increasing pain and swelling of the dorsum of the right foot in the setting of chronic nonhealing diabetic right foot ulcer, found to have infected necrotic nonhealing plantar ulcer of the right foot with osteomyelitis and he underwent surgery. #1 Polymicrobial infected/necrotic nonhealing diabetic plantar ulcer of the right foot/osteomyelitis of the fourth and fifth metatarsals: Status post debridement, partial fourth and fifth ray amputation of the right foot, postoperative day 3, status post wound VAC placement today. Remained on IV vancomycin and Zosyn. Vital signs are stable, afebrile. Wound culture revealed MRSA, Streptococcus agalactiae, sensitivity reviewed. Podiatry medicine as well as infectious disease are on the case. Plan to continue same treatment, awaiting placement to correction facility, repeat CBC and BMP tomorrow morning. #2 acute right lower extremity DVT: Venous Doppler revealed right popliteal and chronic tibiofemoral trunk DVT. He is on Eliquis, will continue. #3 type 2 diabetes mellitus: Uncontrolled. Currently, blood sugar has been stable. Currently, he is on Lantus and sliding scale and sliding scale, Metformin held. Hemoglobin A1c was 10.6%. Plan to continue same treatment. #4 hypertension: Blood pressure stable, continue lisinopril. #5 chronic thrombocytopenia: Unclear etiology. Platelet count is at baseline, no active bleeding. Plan to monitor. #6 DVT prophylaxis: Continue Eliquis for acute DVT.. This note was generated with [employer] dictation software. It may contain incorrect words, spelling, and punctuation that were not noted in checking the note before signing. Inpatient E&M: 48981 Subs Hosp L2
[2020-07-20] MEDS: 0.9% Saline Lock 10 ML Syringe IV ×2 (09:45→21:42)
[2020-07-20] MEDS: Morphine 2 MG/ML Syringe IV (09:45)
[2020-07-20] MEDS: DAKIN'S SOL HALF STRENGTH (=0.25%) 1 APPLIC TOPICAL (09:46)
[2020-07-20] MEDS: Lisinopril 10 MG Tablet PO (09:46)
[2020-07-20] MEDS: APIXABAN 5 MG TABLET PO ×2 (09:46→21:33)
--- NOTE | 2020-07-20 11:14 | PCM.PROGNOTE ---
Subjective: Patient was seen this morning for follow up on feet. He had venous doppler yesterday was possible for acute DVT, he is now on Eliquis. Patient is resting comfortably in chair with feet up, no complaints, no complaints of fever, chills, nausea or vomiting. - Physical Exam Vitals/I&O's: Vital Signs Temp Pulse Resp BP Pulse Ox 97.7 F L 76 18 126/77 H 96 07/20/20 08:25 07/20/20 08:25 07/20/20 08:25 07/20/20 08:25 07/20/20 08:25 Oxygen Flow Rate (L/min) 2 Oxygen Delivery Method Room Air Weight: 164.9 kg Body Mass Index (BMI) 50.7 Finger Stick Blood Glucose 138 Intake and Output for Last 24 Hours 07/18/20 07/19/20 07/20/20 23:59 23:59 23:59 Intake Total 3470.0 / 3820.0 3110 / 3360 850 / 850 Output Total 3475 / 4775 5600 / 7500 5200 / 5200 Balance -5.0 / -955.0 -2490 / -4140 -4350 / -4350 General: Alert, Oriented x3, Cooperative, No apparent distress Extremities: Capillary Refill Less than 3 Seconds, - - s/p right foot debridement 4th and 5th rays, with intact wound vac, no active bleeding or complication. Left foot ulcer 1st ID space healing well, tissues healthy and granular down to subcutaneous tissue with no evidence of bleeding or infection. Psych/Mental Status: Appropriate, Alert and oriented to time, place, person, mood and affect Microbiology Past 72 Hours 07/16/20 17:45 Wound - Right Foot Gram Stain - Final 07/16/20 17:45 Wound - Right Foot Wound Culture - Preliminary Meth. resistant Staph. aureus Pseudomonas stutzeri Gram positive carlos 07/16/20 17:45 Wound - Right Foot Anaerobic Culture - Preliminary Checking for anaerobes, further studies to follow. 07/17/20 13:02 Bone - Right Foot Gram Stain - Final 07/17/20 13:02 Bone - Right Foot Wound Culture - Final Meth. resistant Staph. aureus Pediococcus pentosaceus Streptococcus agalactiae (B) 07/17/20 13:02 Bone - Right Foot Anaerobic Culture - Preliminary Checking for anaerobes, further studies to follow. 07/17/20 13:31 Bone - Right Foot Gram Stain - Final 07/17/20 13:31 Bone - Right Foot Wound Culture - Preliminary No growth-Final to follow 07/17/20 13:31 Bone - Right Foot Anaerobic Culture - Preliminary No growth in 48 hours. Laboratory Results 07/19/20 11:22: POC Glucose 205 H 07/19/20 16:18: POC Glucose 138 H 07/19/20 21:37: POC Glucose 194 H 07/20/20 06:43: POC Glucose 178 H Current Medications Acetaminophen (Acetaminophen 325 Mg Tablet) 650 mg PO Q6H PRN PRN PRN Reason: Pain Score 1-10/Temp > 100.7 F Last Admin: 07/17/20 17:48 Dose: 650 mg Documented by: Apixaban (Apixaban 5 Mg Tablet) 5 mg PO BID [facility] Last Admin: 07/20/20 09:46 Dose: 5 mg Documented by: Dextrose (Dextrose 50%-Water 25 Gm/50 Ml Disp.Syrin) 0 gm IV X1 PRN; Protocol PRN Reason: Hypoglycemia Glucagon (Glucagon 1 Mg/Ml Syringe) 1 mg IM .X1 PRN PRN Reason: Hypoglycemia Vancomycin IV Pharmacy to Dose (1 ea/ Sodium Chloride) 500 mls @ 250 mls/hr IV X1 PRN; Protocol PRN Reason: Rx to Dose Piperacillin Sod/Tazobactam (Sod 3.375 gm/ Sodium Chloride) 50 mls @ 12.5 mls/hr IV Q8 [facility] Last Infusion: 07/20/20 10:41 Dose: Infused Documented by: Sodium Chloride () 250 mls @ 15 mls/hr IV .[id number] PRN PRN Reason: Saline Flush Last Infusion: 07/18/20 15:20 Dose: Infused Documented by: Sodium Chloride () 250 mls @ 15 mls/hr IV .[id number] PRN PRN Reason: Additional IVPB Infusion Vancomycin HCl 1,500 mg/ (Sodium Chloride) 530 mls @ 250 mls/hr IV Q12H [facility] Last Admin: 07/20/20 09:41 Dose: 250 mls/hr Documented by: Insulin Glargine (Insulin Glargine 100 Units/Ml Pen) 20 units SC QHS [facility] Last Admin: 07/19/20 21:40 Dose: 20 units Documented by: Insulin Human Lispro (Insulin Lispro 100 Unit/Ml Insuln.Pen) 0 unit SC ACHS [facility]; Protocol Last Admin: 07/20/20 06:44 Dose: 2 units Documented by: Lisinopril (Lisinopril 10 Mg Tablet) 10 mg PO DAILY [facility] Last Admin: 07/20/20 09:46 Dose: 10 mg Documented by: Morphine Sulfate (Morphine 2 Mg/Ml Syringe) 2 mg IV Q3H PRN PRN PRN Reason: Pain Score 6-10 Last Admin: 07/20/20 09:45 Dose: 2 mg Documented by: Ondansetron HCl (Ondansetron 4 Mg/2 Ml Vial) 4 mg IV Q8H PRN PRN PRN Reason: NAUSEA/VOMITING Oxycodone HCl (Oxycodone 5 Mg Tablet) 10 mg PO Q4H PRN PRN PRN Reason: Pain Score 4-5 Last Admin: 07/20/20 06:47 Dose: 10 mg Documented by: Sodium Chloride (0.9% Saline Lock 10 Ml Syringe) 10 - 40 ml IV UD PRN PRN Reason: SALINE FLUSH Last Admin: 07/20/20 09:45 Dose: 10 ml Documented by: Sodium Hypochlorite (Dakin's Nadya Half Strength (=0.25%)) 1 applic TOPICAL DAILY [facility]; Protocol Last Admin: 07/20/20 09:46 Dose: 1 applicatio Documented by: Medical Necessity - Tobacco Use Smoking Status: Current every day smoker Tobacco Use: Cigarettes Assessment/Plan Right foot ulcer down to necrotic bone w/ osteomyelitis s/p debridement on 07/17/2020 Diabetic neuropathy bilateral foot Uncontrolled diabetes Tobacco use Recurrent left foot ulcer down to subcutaneous tissue Acute right lower extremity DVT Reviewed diagnostic data. Awaiting surgical pathology results. Continue with wound vac right foot ulcer. Left foot ulcer: Aquacel ag, 4x4 gauze and ismael dressing changes, which was completed today. No weightbearing right foot, keep right foot elevated at all times. Noninvasive vascular studies were ordered - reviewed and appears to have good arterial flow to feet. Leg edema: patient with venous insufficiency, ordered venous doppler for further evaluation - was positive for acute DVT. Patient is on broad spectrum antibiotics, Vanc and Oleg, ID/Dr. Soto on culture. Reviewed culture results. Reviewed importance of strict blood sugar control as well as tobacco cessation to help optimize healing. d/c planning - recommend nursing facility placement. Podiatry will continue to follow closely.
[2020-07-20 11:30] LABS: Bedside Glucose 151 mg/dL (70-110)
--- NOTE | 2020-07-20 13:30 | NURSING ---
Access[facility] called for update on PICC line ETA, they stated they did not have him on the schedule. Order information given at this time, nurse will be to our facility between [id number]. Zen RAMIREZ aware.
[2020-07-20 14:30] VITALS: BP 145/67; PULSE 89; RESP 18; TEMP 36.6; O2SAT 95
[2020-07-20 17:01] LABS: Bedside Glucose 171 mg/dL (70-110)
[2020-07-20 21:49] VITALS: BP 151/91; PULSE 87; RESP 18; TEMP 36.7; O2SAT 94
[2020-07-20 21:51] LABS: Bedside Glucose 204 mg/dL (70-110)
[2020-07-20 22:53] LABS: Vancomycin, Trough Level 16.5 ug/mL (5.0-15.0)
--- NOTE | 2020-07-20 23:24 | PCM.RX.CS ---
Consult Pharmacy has been consulted to manage selected antiobiotic: Vancomycin Type of Consult: Follow-up Suspected Infection: Osteomyelitis Labs: Sodium 136 mmol/L (136-145) 07/18/20 06:10 Potassium 4.3 mmol/L (3.5-5.1) 07/18/20 06:10 Chloride 102 mmol/L (98-107) 07/18/20 06:10 Carbon Dioxide 32.0 mmol/L (21.0-32.0) 07/18/20 06:10 Anion Gap 2 (5-15) L 07/18/20 06:10 BUN 11 mg/dL (7-18) 07/18/20 06:10 Creatinine 1.15 mg/dL (0.70-1.30) 07/18/20 06:10 Est GFR (MDRD) Af Amer 87 mL/min (>60) 07/18/20 06:10 Est GFR (MDRD) Non-Af 72 mL/min (>60) 07/18/20 06:10 BUN/Creatinine Ratio 9.6 RATIO (10-20) L 07/18/20 06:10 Glucose 158 mg/dL (74-106) H 07/18/20 06:10 Vancomycin Trough 16.5 ug/mL (5.0-15.0) H 07/20/20 21:15 Random Vancomycin 18.1 ug/mL (0.0-15.0) H 07/19/20 06:45 Microbiology: Microbiology 07/16/20 17:45 Wound - Right Foot Gram Stain - Final 07/16/20 17:45 Wound - Right Foot Wound Culture - Preliminary Meth. resistant Staph. aureus Pseudomonas stutzeri Gram positive carlos 07/16/20 17:45 Wound - Right Foot Anaerobic Culture - Preliminary Checking for anaerobes, further studies to follow. 07/17/20 13:02 Bone - Right Foot Gram Stain - Final 07/17/20 13:02 Bone - Right Foot Wound Culture - Final Meth. resistant Staph. aureus Pediococcus pentosaceus Streptococcus agalactiae (B) 07/17/20 13:02 Bone - Right Foot Anaerobic Culture - Preliminary Checking for anaerobes, further studies to follow. 07/17/20 13:31 Bone - Right Foot Gram Stain - Final 07/17/20 13:31 Bone - Right Foot Wound Culture - Preliminary No growth-Final to follow 07/17/20 13:31 Bone - Right Foot Anaerobic Culture - Preliminary No growth in 48 hours. 07/17/20 00:01 Mucosa - Nose SARS-CoV-2 Antigen (Rapid) - Final Weight used for dosin.9 kg Estimated Creatinine Clearance: >120 Goal Trough: 15-20 mcg/mL Pharmacy Plan for Drug Dosing: Vancomycin trough level of 16.5 was within target range of 15-20. Will continue same dosing and re-draw trough 07/24/20. Pharmacy Service will continue to monitor and adjust dosing as required. Follow-Up Labs: Trough Vancomycin Labs to be done on [date and time ordered]: 07/24/20 @[id number]
[2020-07-21 03:37] VITALS: BP 138/83; PULSE 81; RESP 16; TEMP 36.5; O2SAT 98
[2020-07-21 05:56] LABS: Absolute Lymphocyte Count 0.99 X10^3/uL (0.83-4.51); Absolute Neutrophil Count 5.6 X10^3/uL (2.0-7.7); Basophil# 0.03 X10^3/uL; Basophil% 0.4 % (0-1); Eosinophil# 0.25 X10^3/uL; Eosinophils% 3.3 % (0-5); Hematocrit 40.1 % (40-54); Hemoglobin 12.6 g/dL (13.0-16.5); Lymphocyte # 0.99 X10^3/ul (4.0); Lymphocyte % 13.1 % (19-41); Mean Corp Hgb Conc 31.4 g/dL (32-36); Mean Corpuscular Hgb 26.1 pg (27.0-32.0); Mean Corpuscular Volume 83.2 fL (80-94); Mean Platelet Vol. 11.2 fl (6.2-12.0); Monocyte# 0.66 X10^3/uL; Monocyte% 8.7 % (0-10); NRBC Flagged by Analyzer 0 % (0-5); Neutrophil # 5.59 X10^3/uL (2.7-7.7); Neutrophil % 73.8 % (47-70); POSITIVE COUNT YES; Platelet Count 91 K/mm3 (150-450); RBC Distribution Width CV 13.8 % (11.6-14.6); RBC Distribution Width SD 42.3 fl (35.1-43.9); Red Blood Count 4.82 M/mm3 (4.6-6.2); White Blood Count 7.6 K/mm3 (4.4-11.0)
[2020-07-21] MEDS: Acetaminophen 325 MG Tablet 650 MG PO ×2 (06:27→16:05)
[2020-07-21] MEDS: oxyCODONE 5 MG Tablet 10 MG PO ×4 (06:27→21:41)
[2020-07-21 06:36] LABS: Bedside Glucose 142 mg/dL (70-110)
[2020-07-21 06:38] LABS: Anion Gap 5 (5-15); BUN 13 mg/dL (7-18); BUN/Creat Ratio 11.3 RATIO (10-20); Calcium,Total 8.9 mg/dL (8.5-10.1); Chloride 103 mmol/L (98-107); Creatinine, Serum 1.15 mg/dL (0.70-1.30); EST Glomerular Filtration Rate 72 mL/min (>60); Est Glom Filt Rate - Afr Amer 87 mL/min (>60); Estimated Creatinine Clearance 81.85 ml/min; Glucose 140 mg/dL (74-106); Potassium 3.6 mmol/L (3.5-5.1); Sodium Level 141 mmol/L (136-145)
[2020-07-21 07:55] VITALS: BP 176/82; PULSE 80; RESP 16; TEMP 36.4; O2SAT 94
--- NOTE | 2020-07-21 08:27 | PCM.PROGNOTE ---
Subjective: Patient was seen today for follow up on feet, no new complaints. No complaints of fever, chills, nausea or vomiting. He is waiting on nursing facility approval. - Physical Exam Vitals/I&O's: Vital Signs Temp Pulse Resp BP Pulse Ox 97.6 F L 80 16 176/82 H 94 07/21/20 07:55 07/21/20 07:55 07/21/20 07:55 07/21/20 07:55 07/21/20 07:55 Oxygen Flow Rate (L/min) 2 Oxygen Delivery Method Room Air Weight: 164.9 kg Body Mass Index (BMI) 50.7 Finger Stick Blood Glucose 138 Intake and Output for Last 24 Hours 07/19/20 07/20/20 07/21/20 23:59 23:59 23:59 Intake Total 3110 / 3360 1960 / 1959 50 / 50 Output Total 5600 / 7500 46915 / 18243 2600 / 2600 Balance -2490 / -4140 -8115 / -8115 -2550 / -2550 General: Alert, Oriented x3, Cooperative, No apparent distress Extremities: Capillary Refill Less than 3 Seconds, - - Dressings bilateral feet clean, dry and intact with no strikethrough. Microbiology Past 72 Hours 07/17/20 13:31 Bone - Right Foot Gram Stain - Final 07/17/20 13:31 Bone - Right Foot Wound Culture - Final No growth aerobically. 07/17/20 13:31 Bone - Right Foot Anaerobic Culture - Preliminary No growth in 48 hours. 07/16/20 17:45 Wound - Right Foot Gram Stain - Final 07/16/20 17:45 Wound - Right Foot Wound Culture - Preliminary Meth. resistant Staph. aureus Pseudomonas stutzeri Gram positive carlos 07/16/20 17:45 Wound - Right Foot Anaerobic Culture - Preliminary Checking for anaerobes, further studies to follow. 07/17/20 13:02 Bone - Right Foot Gram Stain - Final 07/17/20 13:02 Bone - Right Foot Wound Culture - Final Meth. resistant Staph. aureus Pediococcus pentosaceus Streptococcus agalactiae (B) 07/17/20 13:02 Bone - Right Foot Anaerobic Culture - Preliminary Checking for anaerobes, further studies to follow. Laboratory Results 07/20/20 11:23: POC Glucose 151 H 07/20/20 16:55: POC Glucose 171 H 07/20/20 21:15: Vancomycin Trough 16.5 H 07/20/20 21:32: POC Glucose 204 H 07/21/20 05:34: WBC 7.6, RBC 4.82, Hgb 12.6 L, Hct 40.1, MCV 83.2, MCH 26.1 L, MCHC 31.4 L, RDW Std Deviation 42.3, RDW Coeff of Maria Fernanda 13.8, Plt Count 91 L, MPV 11.2, Immature Gran % (Auto) 0.700, Neut % (Auto) 73.8 H, Lymph % (Auto) 13.1 L, [place] % (Auto) 8.7, Eos % (Auto) 3.3, Baso % (Auto) 0.4, Absolute Neuts (auto) 5.6, Absolute Lymphs (auto) 0.99, Nucleated RBC % 0 07/21/20 05:34: Sodium 141, Potassium 3.6, Chloride 103, Carbon Dioxide 33.0 H, Anion Gap 5, BUN 13, Creatinine 1.15, Estim Creat Clear Calc 81.85, Est GFR (MDRD) Af Amer 87, Est GFR (MDRD) Non-Af 72, BUN/Creatinine Ratio 11.3, Glucose 140 H, Calcium 8.9 07/21/20 06:30: POC Glucose 142 H Current Medications Acetaminophen (Acetaminophen 325 Mg Tablet) 650 mg PO Q6H PRN PRN PRN Reason: Pain Score 1-10/Temp > 100.7 F Last Admin: 07/21/20 06:27 Dose: 650 mg Documented by: Apixaban (Apixaban 5 Mg Tablet) 5 mg PO BID [facility] Last Admin: 07/20/20 21:33 Dose: 5 mg Documented by: Dextrose (Dextrose 50%-Water 25 Gm/50 Ml Disp.Syrin) 0 gm IV X1 PRN; Protocol PRN Reason: Hypoglycemia Glucagon (Glucagon 1 Mg/Ml Syringe) 1 mg IM .X1 PRN PRN Reason: Hypoglycemia Hydralazine HCl (Hydralazine 20 Mg/Ml Vial) 10 mg IV Q8H PRN PRN PRN Reason: for SBP>160 Vancomycin IV Pharmacy to Dose (1 ea/ Sodium Chloride) 500 mls @ 250 mls/hr IV X1 PRN; Protocol PRN Reason: Rx to Dose Piperacillin Sod/Tazobactam (Sod 3.375 gm/ Sodium Chloride) 50 mls @ 12.5 mls/hr IV Q8 [facility] Last Admin: 07/21/20 06:27 Dose: 12.5 mls/hr Documented by: Sodium Chloride () 250 mls @ 15 mls/hr IV .[id number] PRN PRN Reason: Saline Flush Last Infusion: 07/18/20 15:20 Dose: Infused Documented by: Sodium Chloride () 250 mls @ 15 mls/hr IV .[id number] PRN PRN Reason: Additional IVPB Infusion Vancomycin HCl 1,500 mg/ (Sodium Chloride) 530 mls @ 250 mls/hr IV Q12H [facility] Last Infusion: 07/20/20 23:42 Dose: Infused Documented by: Insulin Glargine (Insulin Glargine 100 Units/Ml Pen) 20 units SC QHS [facility] Last Admin: 07/20/20 21:33 Dose: 20 units Documented by: Insulin Human Lispro (Insulin Lispro 100 Unit/Ml Insuln.Pen) 0 unit SC ACHS [facility]; Protocol Last Admin: 07/21/20 06:31 Dose: Not Given Documented by: Lisinopril (Lisinopril 10 Mg Tablet) 10 mg PO DAILY [facility] Last Admin: 07/20/20 09:46 Dose: 10 mg Documented by: Morphine Sulfate (Morphine 2 Mg/Ml Syringe) 2 mg IV Q3H PRN PRN PRN Reason: Pain Score 6-10 Last Admin: 07/20/20 09:45 Dose: 2 mg Documented by: Ondansetron HCl (Ondansetron 4 Mg/2 Ml Vial) 4 mg IV Q8H PRN PRN PRN Reason: NAUSEA/VOMITING Oxycodone HCl (Oxycodone 5 Mg Tablet) 10 mg PO Q4H PRN PRN PRN Reason: Pain Score 4-5 Last Admin: 07/21/20 06:27 Dose: 10 mg Documented by: Sodium Chloride (0.9% Saline Lock 10 Ml Syringe) 10 - 40 ml IV UD PRN PRN Reason: SALINE FLUSH Last Admin: 07/20/20 21:42 Dose: 10 ml Documented by: Sodium Hypochlorite (Dakin's Nadya Half Strength (=0.25%)) 1 applic TOPICAL DAILY [facility]; Protocol Last Admin: 07/21/20 07:55 Dose: Not Given Documented by: Medical Necessity - Tobacco Use Smoking Status: Current every day smoker Tobacco Use: Cigarettes Assessment/Plan Right foot ulcer down to necrotic bone w/ osteomyelitis s/p debridement on 07/17/2020 Diabetic neuropathy bilateral foot Uncontrolled diabetes Tobacco use Recurrent left foot ulcer down to subcutaneous tissue Acute right lower extremity DVT Reviewed diagnostic data. Awaiting surgical pathology results. Continue with wound vac right foot ulcer. Left foot ulcer: Aquacel ag, 4x4 gauze and ismael dressing changes. No weightbearing right foot, keep right foot elevated at all times. Noninvasive vascular studies were ordered - reviewed and appears to have good arterial flow to feet. Leg edema: patient with venous insufficiency, ordered venous doppler for further evaluation - was positive for acute DVT. Patient is on broad spectrum antibiotics, Vanc and Zosyn, ID/Dr. Soto on culture. Reviewed culture results. Reviewed importance of strict blood sugar control as well as tobacco cessation to help optimize healing. d/c planning - recommend nursing facility placement. Podiatry will continue to follow closely.
--- NOTE | 2020-07-21 08:58 | PN_ITS ---
Subjective: Chief complaint: Follow-up after admission for infected diabetic right plantar foot nonhealing ulcer/wound/right foot abscess/osteomyelitis. He developed acute right lower extremity DVT. Patient seen and examined. No acute events overnight. Today, he denied any complaints. No significant right foot pain. Blood pressure slightly elevated this morning, other vital signs are stable. - Physical Exam Vitals/I&O's: Vital Signs Temp Pulse Resp BP Pulse Ox 97.6 F L 80 16 176/82 H 94 07/21/20 07:55 07/21/20 07:55 07/21/20 07:55 07/21/20 07:55 07/21/20 07:55 Oxygen Flow Rate (L/min) 2 Oxygen Delivery Method Room Air Weight: 363 lb 8.676 oz Body Mass Index (BMI) 50.7 Finger Stick Blood Glucose 138 Intake and Output for Last 24 Hours 07/19/20 07/20/20 07/21/20 23:59 23:59 23:59 Intake Total 3110 / 3360 1960 / 1960 50 / 50 Output Total 5600 / 7500 90045 / 73100 2600 / 2600 Balance -2490 / -4140 -8115 / -8115 -2550 / -2550 General: Alert, Oriented x3, Cooperative, No apparent distress HEENT: Atraumatic, PERRLA, EOMI, Normocephalic Oral: Moist Mucosa, No Gingival or Mucosal Lesions/ Ulcerations Neck: Supple, No JVD, Negative Carotid Bruits, Trachea Midline, Thyroid Normal Size and Texture Lungs: Clear to auscultation, Normal air movement, No wheeze, No rales Cardiovascular: Regular rate, Regular Rhythm, Normal S1, Normal S2, PMI Normal Abdomen: Bowel Sounds Present, Soft, Non Tender, Non-Distended, No Hepato- splenomegaly, Obese Extremities: No clubbing, No cyanosis, Edema - Stasis dermatitis, lymphedema. Skin: No rashes, Ulcer/ Wound Neurological: Cranial nerves II-XII grossly intact, Neuro grossly intact Psych/Mental Status: Normal Affect, Appropriate Microbiology Past 72 Hours 07/17/20 13:31 Bone - Right Foot Gram Stain - Final 07/17/20 13:31 Bone - Right Foot Wound Culture - Final No growth aerobically. 07/17/20 13:31 Bone - Right Foot Anaerobic Culture - Preliminary No growth in 48 hours. 07/16/20 17:45 Wound - Right Foot Gram Stain - Final 07/16/20 17:45 Wound - Right Foot Wound Culture - Preliminary Meth. resistant Staph. aureus Pseudomonas stutzeri Gram positive carlos 07/16/20 17:45 Wound - Right Foot Anaerobic Culture - Preliminary Checking for anaerobes, further studies to follow. 07/17/20 13:02 Bone - Right Foot Gram Stain - Final 07/17/20 13:02 Bone - Right Foot Wound Culture - Final Meth. resistant Staph. aureus Pediococcus pentosaceus Streptococcus agalactiae (B) 07/17/20 13:02 Bone - Right Foot Anaerobic Culture - Preliminary Checking for anaerobes, further studies to follow. Laboratory Results 07/20/20 11:23: POC Glucose 151 H 07/20/20 16:55: POC Glucose 171 H 07/20/20 21:15: Vancomycin Trough 16.5 H 07/20/20 21:32: POC Glucose 204 H 07/21/20 05:34: WBC 7.6, RBC 4.82, Hgb 12.6 L, Hct 40.1, MCV 83.2, MCH 26.1 L, MCHC 31.4 L, RDW Std Deviation 42.3, RDW Coeff of Maria Fernanda 13.8, Plt Count 91 L, MPV 11.2, Immature Gran % (Auto) 0.700, Neut % (Auto) 73.8 H, Lymph % (Auto) 13.1 L, [place] % (Auto) 8.7, Eos % (Auto) 3.3, Baso % (Auto) 0.4, Absolute Neuts (auto) 5.6, Absolute Lymphs (auto) 0.99, Nucleated RBC % 0 07/21/20 05:34: Sodium 141, Potassium 3.6, Chloride 103, Carbon Dioxide 33.0 H, Anion Gap 5, BUN 13, Creatinine 1.15, Estim Creat Clear Calc 81.85, Est GFR (MDRD) Af Amer 87, Est GFR (MDRD) Non-Af 72, BUN/Creatinine Ratio 11.3, Glucose 140 H, Calcium 8.9 07/21/20 06:30: POC Glucose 142 H Current Medications Acetaminophen (Acetaminophen 325 Mg Tablet) 650 mg PO Q6H PRN PRN PRN Reason: Pain Score 1-10/Temp > 100.7 F Last Admin: 07/21/20 06:27 Dose: 650 mg Documented by: Apixaban (Apixaban 5 Mg Tablet) 5 mg PO BID [facility] Last Admin: 07/20/20 21:33 Dose: 5 mg Documented by: Dextrose (Dextrose 50%-Water 25 Gm/50 Ml Disp.Syrin) 0 gm IV X1 PRN; Protocol PRN Reason: Hypoglycemia Glucagon (Glucagon 1 Mg/Ml Syringe) 1 mg IM .X1 PRN PRN Reason: Hypoglycemia Hydralazine HCl (Hydralazine 20 Mg/Ml Vial) 10 mg IV Q8H PRN PRN PRN Reason: for SBP>160 Vancomycin IV Pharmacy to Dose (1 ea/ Sodium Chloride) 500 mls @ 250 mls/hr IV X1 PRN; Protocol PRN Reason: Rx to Dose Piperacillin Sod/Tazobactam (Sod 3.375 gm/ Sodium Chloride) 50 mls @ 12.5 mls/hr IV Q8 [facility] Last Admin: 07/21/20 06:27 Dose: 12.5 mls/hr Documented by: Sodium Chloride () 250 mls @ 15 mls/hr IV .[id number] PRN PRN Reason: Saline Flush Last Infusion: 07/18/20 15:20 Dose: Infused Documented by: Sodium Chloride () 250 mls @ 15 mls/hr IV .[id number] PRN PRN Reason: Additional IVPB Infusion Vancomycin HCl 1,500 mg/ (Sodium Chloride) 530 mls @ 250 mls/hr IV Q12H [facility] Last Infusion: 07/20/20 23:42 Dose: Infused Documented by: Insulin Glargine (Insulin Glargine 100 Units/Ml Pen) 20 units SC QHS [facility] Last Admin: 07/20/20 21:33 Dose: 20 units Documented by: Insulin Human Lispro (Insulin Lispro 100 Unit/Ml Insuln.Pen) [facility]; Protocol Last Admin: 07/21/20 06:31 Dose: Not Given Documented by: Lisinopril (Lisinopril 10 Mg Tablet) 10 mg PO DAILY [facility] Last Admin: 07/20/20 09:46 Dose: 10 mg Documented by: Morphine Sulfate (Morphine 2 Mg/Ml Syringe) 2 mg IV Q3H PRN PRN PRN Reason: Pain Score 6-10 Last Admin: 07/20/20 09:45 Dose: 2 mg Documented by: Ondansetron HCl (Ondansetron 4 Mg/2 Ml Vial) 4 mg IV Q8H PRN PRN PRN Reason: NAUSEA/VOMITING Oxycodone HCl (Oxycodone 5 Mg Tablet) 10 mg PO Q4H PRN PRN PRN Reason: Pain Score 4-5 Last Admin: 07/21/20 06:27 Dose: 10 mg Documented by: Sodium Chloride (0.9% Saline Lock 10 Ml Syringe) 10 - 40 ml IV UD PRN PRN Reason: SALINE FLUSH Last Admin: 07/20/20 21:42 Dose: 10 ml Documented by: Sodium Hypochlorite (Dakin's Nadya Half Strength (=0.25%)) 1 applic TOPICAL DAILY [facility]; Protocol Last Admin: 07/21/20 07:55 Dose: Not Given Documented by: Medical Necessity - Tobacco Use Smoking Status: Current every day smoker Tobacco Use: Cigarettes Assessment/Plan This is a 60 years old male patient presented to the emergency room because of increasing pain and swelling of the dorsum of the right foot in the setting of chronic nonhealing diabetic right foot ulcer, found to have infected necrotic nonhealing plantar ulcer of the right foot with osteomyelitis and he underwent surgery. #1 Polymicrobial infected/necrotic nonhealing diabetic plantar ulcer of the right foot/osteomyelitis of the fourth and fifth metatarsals: Status post debridement, partial fourth and fifth ray amputation of the right foot, postoperative day 4, status post wound VAC placement today. Remained on IV vancomycin and Zosyn. Vital signs are stable, afebrile. Repeat CBC and BMP today was unremarkable apart from chronic thrombocytopenia. Wound culture re vealed MRSA, Streptococcus agalactiae, sensitivity reviewed. Podiatry medicine as well as infectious disease are on the case. Plan to continue same treatment, awaiting placement to halfway facility. #2 acute right lower extremity DVT: Venous Doppler revealed right popliteal and chronic tibiofemoral trunk DVT. Continue Eliquis. #3 type 2 diabetes mellitus: Uncontrolled. Currently, blood sugar has been stable. Currently, he is on Lantus and sliding scale and sliding scale, Metformin held. Hemoglobin A1c was 10.6%. Plan to continue same treatment. #4 hypertension: Blood pressure slightly elevated this morning, continue lisinopril. Start IV Thorazine as needed. #5 chronic thrombocytopenia: Unclear etiology. Platelet count is at baseline, no active bleeding. Plan to monitor. #6 DVT prophylaxis: Continue Eliquis for acute DVT. This note was generated with [employer] dictation software. It may contain incorrect words, spelling, and punctuation that were not noted in checking the note before signing. Inpatient E&M: 00076 Subs Hosp L2
[2020-07-21] MEDS: APIXABAN 5 MG TABLET PO ×2 (09:52→21:33)
[2020-07-21] MEDS: Lisinopril 10 MG Tablet PO (09:52)
[2020-07-21] MEDS: Insulin Lispro 100 UNIT/ML INSULN.PEN SC ×2 (11:02→21:32)
[2020-07-21 11:05] LABS: Bedside Glucose 197 mg/dL (70-110)
[2020-07-21 12:31] VITALS: BP 149/78; PULSE 79; RESP 16; TEMP 36.4; O2SAT 94
[2020-07-21 16:06] VITALS: BP 147/83; PULSE 79; RESP 16; TEMP 36.5; O2SAT 96
[2020-07-21 16:06] LABS: Bedside Glucose 147 mg/dL (70-110)
[2020-07-21 21:45] VITALS: BP 155/87; PULSE 79; RESP 18; TEMP 36.7; O2SAT 99
[2020-07-21 21:50] LABS: Bedside Glucose 205 mg/dL (70-110)
[2020-07-22] VITALS (10 sets, daily range): BP systolic 148–184; BP diastolic 73–112; PULSE 75–87; RESP 16–18; TEMP 36.3–36.9; O2SAT 95–98
[2020-07-22] MEDS: hydrALAZINE 20 MG/ML Vial 10 MG IV ×2 (02:13→22:15)
[2020-07-22] MEDS: 0.9% Saline Lock 10 ML Syringe IV ×3 (02:14→22:19)
[2020-07-22] MEDS: oxyCODONE 5 MG Tablet 10 MG PO ×4 (02:25→20:32)
[2020-07-22] MEDS: Acetaminophen 325 MG Tablet 650 MG PO ×3 (02:25→20:32)
--- NOTE | 2020-07-22 06:21 | PCM.PROGNOTE ---
Subjective: This 50-year-old diabetic male was seen bedside of right status post open fourth and fifth ray resection with drainage. He is a wound VAC in place and relates his pain is moderate. He denies fever, chill, nausea, vomiting, loss of appetite or calf pain. He is waiting for long term facility placement. He also is status post punch biopsy on the left foot. He relates after discharge from the hospital he plans to follow-up as advised with his physicians and participate more in his medical plan. - Physical Exam Vitals/I&O's: Vital Signs Temp Pulse Resp BP Pulse Ox 98 F 82 18 156/90 H 96 07/22/20 02:17 07/22/20 02:30 07/22/20 02:17 07/22/20 02:30 07/22/20 02:17 Oxygen Flow Rate (L/min) 2 Oxygen Delivery Method Room Air Weight: 164.9 kg Body Mass Index (BMI) 50.7 Finger Stick Blood Glucose 138 Intake and Output for Last 24 Hours 07/20/20 07/21/20 07/22/20 23:59 23:59 23:59 Intake Total 1960 / 1960 2560.5 / 2560.5 50 / 50 Output Total 70652 / 84312 3800 / 3800 1275 / 1275 Balance -8115 / -8115 -1239.5 / -1239.5 -1225 / -1225 General: Alert, Oriented x3, Cooperative HEENT: Atraumatic Extremities: No cyanosis, Capillary Refill Less than 3 Seconds, No Calf Tenderness - Negative Andrade and Homans signs bilateral lower extremities, Diminished Peripheral Pulses, Edema - Skin wrinkles noted bilateral suggests reduced lower extremity edema Skin: Ulcer/ Wound - Right: Open ray resection with granular healthy base. There is no active bleeding, maceration, or necrosis. Left: Punch biopsy site is healthy and granular without local signs of infection. There is no bilateral purulence, erythema, odor, streaking fluctuance, or bogginess Musculoskeletal: Muscle Wasting, - - Surgical ray resections right. Compartments remain soft to palpate bilateral lower extremities Neurological: - - Lack of normal epicritic sensation light touch is consistent with neuropathy status Psych/Mental Status: Normal Affect, Appropriate Microbiology Past 72 Hours 07/16/20 17:45 Wound - Right Foot Gram Stain - Final 07/16/20 17:45 Wound - Right Foot Wound Culture - Preliminary Meth. resistant Staph. aureus Pseudomonas stutzeri Gram positive carlos 07/16/20 17:45 Wound - Right Foot Anaerobic Culture - Preliminary Checking for anaerobes, further studies to follow. 07/17/20 13:31 Bone - Right Foot Gram Stain - Final 07/17/20 13:31 Bone - Right Foot Wound Culture - Final No growth aerobically. 07/17/20 13:31 Bone - Right Foot Anaerobic Culture - Preliminary No growth in 48 hours. 07/17/20 13:02 Bone - Right Foot Gram Stain - Final 07/17/20 13:02 Bone - Right Foot Wound Culture - Final Meth. resistant Staph. aureus Pediococcus pentosaceus Streptococcus agalactiae (B) 07/17/20 13:02 Bone - Right Foot Anaerobic Culture - Preliminary Checking for anaerobes, further studies to follow. Laboratory Results 07/21/20 05:34: Sodium 141, Potassium 3.6, Chloride 103, Carbon Dioxide 33.0 H, Anion Gap 5, BUN 13, Creatinine 1.15, Estim Creat Clear Calc 81.85, Est GFR (MDRD) Af Amer 87, Est GFR (MDRD) Non-Af 72, BUN/Creatinine Ratio 11.3, Glucose 140 H, Calcium 8.9 07/21/20 06:30: POC Glucose 142 H 07/21/20 11:00: POC Glucose 197 H 07/21/20 16:00: POC Glucose 147 H 07/21/20 21:30: POC Glucose 205 H Current Medications Acetaminophen (Acetaminophen 325 Mg Tablet) 650 mg PO Q6H PRN PRN PRN Reason: Pain Score 1-10/Temp > 100.7 F Last Admin: 07/22/20 02:25 Dose: 650 mg Documented by: Apixaban (Apixaban 5 Mg Tablet) 5 mg PO BID [facility] Last Admin: 07/21/20 21:33 Dose: 5 mg Documented by: Dextrose (Dextrose 50%-Water 25 Gm/50 Ml Disp.Syrin) 0 gm IV X1 PRN; Protocol PRN Reason: Hypoglycemia Glucagon (Glucagon 1 Mg/Ml Syringe) 1 mg IM .X1 PRN PRN Reason: Hypoglycemia Hydralazine HCl (Hydralazine 20 Mg/Ml Vial) 10 mg IV Q8H PRN PRN PRN Reason: for SBP>160 Last Admin: 07/22/20 02:13 Dose: 10 mg Documented by: Vancomycin IV Pharmacy to Dose (1 ea/ Sodium Chloride) 500 mls @ 250 mls/hr IV X1 PRN; Protocol PRN Reason: Rx to Dose Piperacillin Sod/Tazobactam (Sod 3.375 gm/ Sodium Chloride) 50 mls @ 12.5 mls/hr IV Q8 [facility] Last Infusion: 07/22/20 01:31 Dose: Infused Documented by: Sodium Chloride () 250 mls @ 15 mls/hr IV .[id number] PRN PRN Reason: Saline Flush Last Infusion: 07/22/20 01:31 Dose: 15 mls/hr Documented by: Sodium Chloride () 250 mls @ 15 mls/hr IV .[id number] PRN PRN Reason: Additional IVPB Infusion Vancomycin HCl 1,500 mg/ (Sodium Chloride) 530 mls @ 250 mls/hr IV Q12H [facility] Last Infusion: 07/21/20 23:39 Dose: Infused Documented by: Insulin Glargine (Insulin Glargine 100 Units/Ml Pen) 20 units SC QHS [facility] Last Admin: 07/21/20 21:32 Dose: 20 units Documented by: Insulin Human Lispro (Insulin Lispro 100 Unit/Ml Insuln.Pen) 0 unit SC [facility]; Protocol Last Admin: 07/21/20 21:32 Dose: 4 units Documented by: Lisinopril (Lisinopril 10 Mg Tablet) 10 mg PO DAILY [facility] Last Admin: 07/21/20 09:52 Dose: 10 mg Documented by: Morphine Sulfate (Morphine 2 Mg/Ml Syringe) 2 mg IV Q3H PRN PRN PRN Reason: Pain Score 6-10 Last Admin: 07/20/20 09:45 Dose: 2 mg Documented by: Ondansetron HCl (Ondansetron 4 Mg/2 Ml Vial) 4 mg IV Q8H PRN PRN PRN Reason: NAUSEA/VOMITING Oxycodone HCl (Oxycodone 5 Mg Tablet) 10 mg PO Q4H PRN PRN PRN Reason: Pain Score 4-5 Last Admin: 07/22/20 02:25 Dose: 10 mg Documented by: Sodium Chloride (0.9% Saline Lock 10 Ml Syringe) 10 - 40 ml IV UD PRN PRN Reason: SALINE FLUSH Last Admin: 07/22/20 02:14 Dose: 10 ml Documented by: Sodium Hypochlorite (Dakin's Nadya Half Strength (=0.25%)) 1 applic TOPICAL DAILY [facility]; Protocol Last Admin: 07/21/20 07:55 Dose: Not Given Documented by: Medical Necessity - Tobacco Use Smoking Status: Current every day smoker Tobacco Use: Cigarettes Assessment/Plan Right foot ulcer down to necrotic bone w/ osteomyelitis s/p debridement on 07/17/2020 (Dr. Ramos) Diabetic neuropathy bilateral foot Uncontrolled diabetes Tobacco use Recurrent left foot ulcer down to subcutaneous tissue now s/p punch biopsy 07/17/2020 Acute right lower extremity DVT Reviewed diagnostic data. He is afebrile and his vital signs remained stable. He did not have leukocytosis yesterday; white blood cell count 7.6. Continue with wound vac right foot ulcer. His ulcer surgical site was evaluated today and a dry dressing was applied. Wound VAC will be reapplied later today. Left foot ulcer: Aquacel ag, 4x4 gauze and jens dressing changes. The site appears stable. His biopsy results are pending. No weightbearing right foot, keep right foot elevated at all times. Noninvasive vascular studies were ordered - reviewed and appears to have good arterial flow to feet. Leg edema: patient with venous insufficiency. To elevate and wear Jens wraps for compression at this time. It is noted he was also positive for acute DVT; medical management per hospitalist service with [facility]. Patient is on broad spectrum antibiotics, Vanc and Zosyn, ID/Dr. Soto on culture. PICC line ordered; stop date 08-28-20. Reviewed culture results; polymicrobial. Clearance fragments of the fourth and fifth rays are negative for bacterial growth and the final result is pending. Reviewed importance of strict blood sugar control as well as tobacco cessation to help optimize healing. Compliance will be needed in the outpatient setting this was discussed. d/c planning - recommend nursing facility placement. [facility] approval still pending. Podiatry will continue to follow closely. Please do not hesitate to call if you have any questions. Genevieve John DPM, [facility] [phone]
[2020-07-22 06:45] LABS: Bedside Glucose 124 mg/dL (70-110)
--- NOTE | 2020-07-22 08:20 | PN_ITS ---
Reason for Visit: 1. Infected diabetic right plantar foot nonhealing ulcer with osteomyelitis 2. Acute lower extremity DVT Subjective: Patient is a 50-year-old gentleman on admission for infected diabetic right plantar foot nonhealing ulcer with osteomyelitis. Hospital stay complicated by development of acute right lower extremity DVT Objective: GENERAL: cooperative HEENT: Atraumatic; EYES; Anicteric, Normal Conjunctiva NECK; supple, normal thyroid, RESPIRATORY: Diminished to auscultation CARDIOVASCULAR: Regular S1 S2, GI: soft, normoactive bowel sounds, : No Renal angle tenderness; EXTREMITIES: Right foot in surgical dressing MUSCULOSKELETAL: no muscle waisting NEURO: Awake; no lateralizing signs. SKIN: No Rash PSYCH; Flat affect Vitals/I&O's: Vital Signs Temp Pulse Resp BP Pulse Ox 97.5 F L 80 16 148/81 H 98 07/22/20 07:52 07/22/20 07:52 07/22/20 07:52 07/22/20 07:52 07/22/20 07:52 Oxygen Flow Rate (L/min) 2 Oxygen Delivery Method Room Air Weight: 164.9 kg Body Mass Index (BMI) 50.7 Finger Stick Blood Glucose 138 Intake and Output for Last 24 Hours 07/20/20 07/21/20 07/22/20 23:59 23:59 23:59 Intake Total 1960 / 1960 2560.5 / 2560.5 50 / 50 Output Total 30494 / 55325 3800 / 3800 2225 / 2225 Balance -8115 / -8115 -1239.5 / -1239.5 -2175 / -2175 Microbiology Past 72 Hours 07/16/20 17:45 Wound - Right Foot Gram Stain - Final 07/16/20 17:45 Wound - Right Foot Wound Culture - Preliminary Meth. resistant Staph. aureus Pseudomonas stutzeri Gram positive carlos 07/16/20 17:45 Wound - Right Foot Anaerobic Culture - Preliminary Checking for anaerobes, further studies to follow. 07/17/20 13:31 Bone - Right Foot Gram Stain - Final 07/17/20 13:31 Bone - Right Foot Wound Culture - Final No growth aerobically. 07/17/20 13:31 Bone - Right Foot Anaerobic Culture - Preliminary No growth in 48 hours. 07/17/20 13:02 Bone - Right Foot Gram Stain - Final 07/17/20 13:02 Bone - Right Foot Wound Culture - Final Meth. resistant Staph. aureus Pediococcus pentosaceus Streptococcus agalactiae (B) 07/17/20 13:02 Bone - Right Foot Anaerobic Culture - Preliminary Checking for anaerobes, further studies to follow. Laboratory Results 07/21/20 11:00: POC Glucose 197 H 07/21/20 16:00: POC Glucose 147 H 07/21/20 21:30: POC Glucose 205 H 07/22/20 06:35: POC Glucose 124 H Current Medications Acetaminophen (Acetaminophen 325 Mg Tablet) 650 mg PO Q6H PRN PRN PRN Reason: Pain Score 1-10/Temp > 100.7 F Last Admin: 07/22/20 02:25 Dose: 650 mg Documented by: Apixaban (Apixaban 5 Mg Tablet) 5 mg PO BID [facility] Last Admin: 07/21/20 21:33 Dose: 5 mg Documented by: Dextrose (Dextrose 50%-Water 25 Gm/50 Ml Disp.Syrin) 0 gm IV X1 PRN; Protocol PRN Reason: Hypoglycemia Glucagon (Glucagon 1 Mg/Ml Syringe) 1 mg IM .X1 PRN PRN Reason: Hypoglycemia Hydralazine HCl (Hydralazine 20 Mg/Ml Vial) 10 mg IV Q8H PRN PRN PRN Reason: for SBP>160 Last Admin: 07/22/20 02:13 Dose: 10 mg Documented by: Vancomycin IV Pharmacy to Dose (1 ea/ Sodium Chloride) 500 mls @ 250 mls/hr IV X1 PRN; Protocol PRN Reason: Rx to Dose Piperacillin Sod/Tazobactam (Sod 3.375 gm/ Sodium Chloride) 50 mls @ 12.5 mls/hr IV Q8 [facility] Last Admin: 07/22/20 06:33 Dose: 12.5 mls/hr Documented by: Sodium Chloride () 250 mls @ 15 mls/hr IV .[id number] PRN PRN Reason: Saline Flush Last Infusion: 07/22/20 01:31 Dose: 15 mls/hr Documented by: Sodium Chloride () 250 mls @ 15 mls/hr IV .[id number] PRN PRN Reason: Additional IVPB Infusion Vancomycin HCl 1,500 mg/ (Sodium Chloride) 530 mls @ 250 mls/hr IV Q12H [facility] Last Infusion: 07/21/20 23:39 Dose: Infused Documented by: Insulin Glargine (Insulin Glargine 100 Units/Ml Pen) 20 units SC QHS [facility] Last Admin: 07/21/20 21:32 Dose: 20 units Documented by: Insulin Human Lispro (Insulin Lispro 100 Unit/Ml Insuln.Pen) 0 unit SC ACHS S ; Protocol Last Admin: 07/22/20 06:36 Dose: Not Given Documented by: Lisinopril (Lisinopril 10 Mg Tablet) 10 mg PO DAILY [facility] Last Admin: 07/21/20 09:52 Dose: 10 mg Documented by: Morphine Sulfate (Morphine 2 Mg/Ml Syringe) 2 mg IV Q3H PRN PRN PRN Reason: Pain Score 6-10 Last Admin: 07/20/20 09:45 Dose: 2 mg Documented by: Ondansetron HCl (Ondansetron 4 Mg/2 Ml Vial) 4 mg IV Q8H PRN PRN PRN Reason: NAUSEA/VOMITING Oxycodone HCl (Oxycodone 5 Mg Tablet) 10 mg PO Q4H PRN PRN PRN Reason: Pain Score 4-5 Last Admin: 07/22/20 06:32 Dose: 10 mg Documented by: Sodium Chloride (0.9% Saline Lock 10 Ml Syringe) 10 - 40 ml IV UD PRN PRN Reason: SALINE FLUSH Last Admin: 07/22/20 02:14 Dose: 10 ml Documented by: Sodium Hypochlorite (Dakin's Nadya Half Strength (=0.25%)) 1 applic TOPICAL DAILY [facility]; Protocol Last Admin: 07/21/20 07:55 Dose: Not Given Documented by: STROKE Vital Signs/Narrative: Vital Signs Temp Pulse Resp BP Pulse Ox 07/22/20 07:52 97.5 F L 80 16 148/81 H 98 Medical Necessity - Tobacco Use Smoking Status: Current every day smoker Tobacco Use: Cigarettes Assessment/Plan Patient is a 50-year-old gentleman on admission for infected diabetic right plantar foot nonhealing ulcer with osteomyelitis. Hospital stay complicated by development of acute right lower extremity DVT 1. Polymicrobial infected/necrotic nonhealing diabetic plantar ulcer of the right foot/osteomyelitis of the fourth and fifth metatarsal Status post partial fourth and fifth ray amputation of the right foot on 07/17/[address] Jesus Ramos, a wound VAC placed on 07/21/2020. Patient is currently on vancomycin as well as Zosyn Microbiology 07/16/20 17:45 Gram Stain - Final Wound - Right Foot Wound Culture - Preliminary Meth. resistant Staph. aureus Pseudomonas stutzeri Gram positive carlos Anaerobic Culture - Preliminary Checking for anaerobes, further studies to follow. 07/17/20 13:31 Gram Stain - Final Bone - Right Foot Wound Culture - Final No growth aerobically. Anaerobic Culture - Preliminary No growth in 48 hours. Consultation placed to both podiatry medicine as well as infectious disease 2. Acute right lower extremity DVT ?Currently on Eliquis 3. Diabetes mellitus type II - uncontrolled with hemoglobin A1c of 10.6 -patient's oral hypoglycemics held. -Placed on long acting insulin, Accu-Cheks a.c. and at bedtime and covered with sliding scale insulin 4. Hypertension - Blood pressure controlled, home medications continued with dose adjustment as needed 5. Chronic thrombocytopenia ?Platelet count at baseline 6. Morbid obesity - With a BMI of 50.7 patient was counseled on weight reduction Inpatient E&M: [id number] [facility] L[facility]
[2020-07-22] MEDS: APIXABAN 5 MG TABLET PO ×2 (10:08→22:15)
[2020-07-22] MEDS: Lisinopril 10 MG Tablet PO (10:08)
--- NOTE | 2020-07-22 10:58 | CASEMGMT ---
Social Work Note ALLISON placed a call to Rosa at [facility] regarding referral. Rosa states she never received this worker's voicemail from Wednesday with stop dates for IV antibiotics. ALLISON provided IV antibiotics again for Orsa. Rosa states she will speak with facility regarding IV antibiotics and then give this worker a call back. Bella Morales ENGINE SETTER, HUMAN SERVICES CARE SPECIALIST
[2020-07-22 11:06] LABS: Bedside Glucose 157 mg/dL (70-110)
[2020-07-22] MEDS: DAKIN'S SOL HALF STRENGTH (=0.25%) 1 APPLIC TOPICAL (11:07)
[2020-07-22] MEDS: Insulin Lispro 100 UNIT/ML INSULN.PEN SC ×3 (11:08→22:16)
--- NOTE | 2020-07-22 13:24 | NURSING ---
wound photo: right foot
[2020-07-22] MEDS: Morphine 2 MG/ML Syringe IV (13:34)
--- NOTE | 2020-07-22 14:08 | CASEMGMT ---
Addendum entered by Bella Morales 07/22/20 16:41: SW received call from Rosa at [facility] stating due to pt's IV antibiotics and wound vac care, they are unable to accept pt. SW in to speak with pt. SW updated pt that [facility] is not able to accept pt. Pt states the physician mentioned possibly different antibiotics at discharge and pt may be able to go home. SW explained [facility], how RN will NOT be out everyday. Pt states she would like to speak to his sister in law regarding SNFs. SW to follow up with pt tomorrow. Original Note: Social Work Note SW placed a call to Rosa at [facility] again to inquire if [facility] is able to accept pt or not. SW waiting for call back. Bella Morales SHUTTLER, HOT BILLET SHEAR OPERATOR
--- NOTE | 2020-07-22 15:42 | PCM.PN.ID ---
Subjective: Feeling ok, tired of being here. No fever. - Physical Exam Vitals/I&O's: Vital Signs Temp Pulse Resp BP Pulse Ox 98 F 75 16 151/74 H 95 07/22/20 14:35 07/22/20 14:35 07/22/20 14:35 07/22/20 14:35 07/22/20 14:35 Oxygen Flow Rate (L/min) 2 Oxygen Delivery Method Room Air Weight: 164.9 kg Body Mass Index (BMI) 50.7 Finger Stick Blood Glucose 138 Intake and Output for Last 24 Hours 07/20/20 07/21/20 07/22/20 23:59 23:59 23:59 Intake Total 1960 / 1960 2560.5 / 2560.5 1524.50 / 1524.50 Output Total 14398 / 44249 3800 / 3800 3475 / 3475 Balance -8115 / -8115 -1239.5 / -1239.5 -1950.50 / -1950.50 General: Alert, Cooperative, No apparent distress Lungs: Clear to auscultation, Normal air movement Cardiovascular: Regular rate, Regular Rhythm Abdomen: Soft, Non Tender, Non-Distended Skin: Ulcer/ Wound - reviewed photo Microbiology Past 72 Hours 07/17/20 13:02 Bone - Right Foot Gram Stain - Final 07/17/20 13:02 Bone - Right Foot Wound Culture - Final Meth. resistant Staph. aureus Pediococcus pentosaceus Streptococcus agalactiae (B) 07/17/20 13:02 Bone - Right Foot Anaerobic Culture - Preliminary Gram negative carlos Gram negative carlos#2 Anaerobic cocci 07/16/20 17:45 Wound - Right Foot Gram Stain - Final 07/16/20 17:45 Wound - Right Foot Wound Culture - Preliminary Meth. resistant Staph. aureus Pseudomonas stutzeri Gram positive carlos 07/16/20 17:45 Wound - Right Foot Anaerobic Culture - Preliminary Gram negative carlos Gram negative carlos#2 Anaerobic cocci 07/17/20 13:31 Bone - Right Foot Gram Stain - Final 07/17/20 13:31 Bone - Right Foot Wound Culture - Final No growth aerobically. 07/17/20 13:31 Bone - Right Foot Anaerobic Culture - Preliminary Checking for anaerobes, further studies to follow. Laboratory Results 07/17/20 08:00: S.aureus Protein A PCR POSITIVE H, MRSA (PCR) POSITIVE H 07/21/20 16:00: POC Glucose 147 H 07/21/20 21:30: POC Glucose 205 H 07/22/20 06:35: POC Glucose 124 H 07/22/20 11:02: POC Glucose 157 H Current Medications Acetaminophen (Acetaminophen 325 Mg Tablet) 650 mg PO Q6H PRN PRN PRN Reason: Pain Score 1-10/Temp > 100.7 F Last Admin: 07/22/20 11:08 Dose: 650 mg Documented by: Apixaban (Apixaban 5 Mg Tablet) 5 mg PO BID [facility] Last Admin: 07/22/20 10:08 Dose: 5 mg Documented by: Dextrose (Dextrose 50%-Water 25 Gm/50 Ml Disp.Syrin) 0 gm IV X1 PRN; Protocol PRN Reason: Hypoglycemia Glucagon (Glucagon 1 Mg/Ml Syringe) 1 mg IM .X1 PRN PRN Reason: Hypoglycemia Hydralazine HCl (Hydralazine 20 Mg/Ml Vial) 10 mg IV Q8H PRN PRN PRN Reason: for SBP>160 Last Admin: 07/22/20 02:13 Dose: 10 mg Documented by: Vancomycin IV Pharmacy to Dose (1 ea/ Sodium Chloride) 500 mls @ 250 mls/hr IV X1 PRN; Protocol PRN Reason: Rx to Dose Piperacillin Sod/Tazobactam (Sod 3.375 gm/ Sodium Chloride) 50 mls @ 12.5 mls/hr IV Q8 [facility] Last Admin: 07/22/20 13:36 Dose: 12.5 mls/hr Documented by: Sodium Chloride () 250 mls @ 15 mls/hr IV .[id number] PRN PRN Reason: Saline Flush Last Infusion: 07/22/20 13:37 Dose: 0 mls/hr Documented by: Sodium Chloride () 250 mls @ 15 mls/hr IV .[id number] PRN PRN Reason: Additional IVPB Infusion Vancomycin HCl 1,500 mg/ (Sodium Chloride) 530 mls @ 250 mls/hr IV Q12H [facility] Last Infusion: 07/22/20 12:23 Dose: Infused Documented by: Insulin Glargine (Insulin Glargine 100 Units/Ml Pen) 20 units SC QHS [facility] Last Admin: 07/21/20 21:32 Dose: 20 units Documented by: Insulin Human Lispro (Insulin Lispro 100 Unit/Ml Insuln.Pen) 0 unit SC ACHS [facility]; Protocol Last Admin: 07/22/20 11:08 Dose: 2 units Documented by: L-Arginine/L-Glutamine/Calcium HMB (Glen (Unflavored) Packet) 1 packet PO BIDCM [facility] Lisinopril (Lisinopril 10 Mg Tablet) 10 mg PO DAILY [facility] Last Admin: 07/22/20 10:08 Dose: 10 mg Documented by: Morphine Sulfate (Morphine 2 Mg/Ml Syringe) 2 mg IV Q3H PRN PRN PRN Reason: Pain Score 6-10 Last Admin: 07/22/20 13:34 Dose: 2 mg Documented by: Ondansetron HCl (Ondansetron 4 Mg/2 Ml Vial) 4 mg IV Q8H PRN PRN PRN Reason: NAUSEA/VOMITING Oxycodone HCl (Oxycodone 5 Mg Tablet) 10 mg PO Q4H PRN PRN PRN Reason: Pain Score 4-5 Last Admin: 07/22/20 11:08 Dose: 10 mg Documented by: Sodium Chloride (0.9% Saline Lock 10 Ml Syringe) 10 - 40 ml IV UD PRN PRN Reason: SALINE FLUSH Last Admin: 07/22/20 02:14 Dose: 10 ml Documented by: Sodium Hypochlorite (Dakin's Nadya Half Strength (=0.25%)) 1 applic TOPICAL DAILY [facility]; Protocol Last Admin: 07/22/20 11:07 Dose: 1 applicatio Documented by: Medical Necessity - Tobacco Use Smoking Status: Current every day smoker Tobacco Use: Cigarettes Route of nutrition/ use of supplements: [] Nutritional Intake: [] IV Site: [] Faulnker Catheter: [] - Assessment/Plan Antibiotics: [] Assessment/Plan: [] R foot osteo - pcr (+) mrsa, now s/p OR 07/17/20 for partial ray resection. On vanc/zosyn. He is open to going to a facility. Wound and surg cx with MRSA, strep, pediococcus, GPR, pseudomonas stutzeri. Wrote picc and 6 weeks vanc/zosyn, stop date 08/28/20, weekly bmp, cbc, vanc trough, and esr. ID followup in 2 weeks. If he is not going to a facility, will have to see how abx can be simplified. Will follow
[2020-07-22] MEDS: Juven (unflavored) Packet 1 PACKET PO (16:04)
[2020-07-22 16:11] LABS: Bedside Glucose 174 mg/dL (70-110)
[2020-07-22 22:40] LABS: Bedside Glucose 161 mg/dL (70-110)
[2020-07-23 04:07] VITALS: BP 145/85; PULSE 94; RESP 18; TEMP 36.4; O2SAT 100
[2020-07-23] MEDS: oxyCODONE 5 MG Tablet 10 MG PO ×2 (04:11→17:05)
[2020-07-23 07:01] LABS: Bedside Glucose 140 mg/dL (70-110)
[2020-07-23 08:00] VITALS: BP 140/93; PULSE 82; RESP 18; TEMP 36.6; O2SAT 97
[2020-07-23] MEDS: 0.9% Saline Lock 10 ML Syringe IV (08:01)
[2020-07-23] MEDS: Lisinopril 10 MG Tablet PO (08:01)
[2020-07-23] MEDS: Morphine 2 MG/ML Syringe IV (08:01)
[2020-07-23] MEDS: APIXABAN 5 MG TABLET PO (08:02)
--- NOTE | 2020-07-23 08:05 | NURSING ---
wound photo: left foot
--- NOTE | 2020-07-23 08:06 | PCM.PN.HOSP ---
Reason for Visit: 1. Infected diabetic right plantar foot nonhealing ulcer with osteomyelitis 2. Acute lower extremity DVT Subjective: Patient is a 50-year-old gentleman on admission for infected diabetic right plantar foot nonhealing ulcer with osteomyelitis. Hospital stay complicated by development of acute right lower extremity DVT 07/23/2020; patient seen had a relatively uneventful night. Still awaiting for placement. Patient has apparently been rejected by 3 facilities. Patient may need to go home with IV antibiotics were discussed with ID about adjusting antibiotics which may be able to be given at home at less frequent intervals Objective: GENERAL: cooperative HEENT: Atraumatic; EYES; Anicteric, Normal Conjunctiva NECK; supple, normal thyroid, RESPIRATORY: Diminished to auscultation CARDIOVASCULAR: Regular S1 S2, GI: soft, normoactive bowel sounds, : No Renal angle tenderness; EXTREMITIES: Right foot in surgical dressing MUSCULOSKELETAL: no muscle waisting NEURO: Awake; no lateralizing signs. SKIN: No Rash PSYCH; Flat affect Vitals/I&O's: Vital Signs Temp Pulse Resp BP Pulse Ox 97.6 F L 94 18 145/85 H 100 07/23/20 04:07 07/23/20 04:07 07/23/20 04:07 07/23/20 04:07 07/23/20 04:07 Oxygen Flow Rate (L/min) 2 Oxygen Delivery Method Room Air Weight: 164.9 kg Body Mass Index (BMI) 50.7 Finger Stick Blood Glucose 138 Intake and Output for Last 24 Hours 07/21/20 07/22/20 07/23/20 23:59 23:59 23:59 Intake Total 2560.5 / 2560.5 3024.50 / 3024.50 1078 / 1078 Output Total 3800 / 3800 5025 / 5025 2175 / 2175 Balance -1239.5 / -1239.5 -2000.50 / -2000.50 -1097 / -1097 Microbiology Past 72 Hours 07/17/20 13:02 Bone - Right Foot Gram Stain - Final 07/17/20 13:02 Bone - Right Foot Wound Culture - Final Meth. resistant Staph. aureus Pediococcus pentosaceus Streptococcus agalactiae (B) 07/17/20 13:02 Bone - Right Foot Anaerobic Culture - Preliminary Gram negative carlos Gram negative carlos#2 Anaerobic cocci 07/16/20 17:45 Wound - Right Foot Gram Stain - Final 07/16/20 17:45 Wound - Right Foot Wound Culture - Preliminary Meth. resistant Staph. aureus Pseudomonas stutzeri Gram positive carlos 07/16/20 17:45 Wound - Right Foot Anaerobic Culture - Preliminary Gram negative carlos Gram negative carlos#2 Anaerobic cocci 07/17/20 13:31 Bone - Right Foot Gram Stain - Final 07/17/20 13:31 Bone - Right Foot Wound Culture - Final No growth aerobically. 07/17/20 13:31 Bone - Right Foot Anaerobic Culture - Preliminary Checking for anaerobes, further studies to follow. Laboratory Results 07/17/20 08:00: S.aureus Protein A PCR POSITIVE H, MRSA (PCR) POSITIVE H 07/22/20 11:02: POC Glucose 157 H 07/22/20 16:01: POC Glucose 174 H 07/22/20 22:02: POC Glucose 161 H 07/23/20 06:27: POC Glucose 140 H Current Medications Acetaminophen (Acetaminophen 325 Mg Tablet) 650 mg PO Q6H PRN PRN PRN Reason: Pain Score 1-10/Temp > 100.7 F Last Admin: 07/22/20 20:32 Dose: 650 mg Documented by: Apixaban (Apixaban 5 Mg Tablet) 5 mg PO BID [facility] Last Admin: 07/23/20 08:02 Dose: 5 mg Documented by: Dextrose (Dextrose 50%-Water 25 Gm/50 Ml Disp.Syrin) 0 gm IV X1 PRN; Protocol PRN Reason: Hypoglycemia Glucagon (Glucagon 1 Mg/Ml Syringe) 1 mg IM .X1 PRN PRN Reason: Hypoglycemia Hydralazine HCl (Hydralazine 20 Mg/Ml Vial) 10 mg IV Q8H PRN PRN PRN Reason: for SBP>160 Last Admin: 07/22/20 22:15 Dose: 10 mg Documented by: Vancomycin IV Pharmacy to Dose (1 ea/ Sodium Chloride) 500 mls @ 250 mls/hr IV X1 PRN; Protocol PRN Reason: Rx to Dose Piperacillin Sod/Tazobactam (Sod 3.375 gm/ Sodium Chloride) 50 mls @ 12.5 mls/hr IV Q8 [facility] Last Admin: 07/23/20 06:28 Dose: 12.5 mls/hr Documented by: Sodium Chloride () 250 mls @ 15 mls/hr IV .[id number] PRN PRN Reason: Saline Flush Last Admin: 07/23/20 04:11 Dose: 15 mls/hr Documented by: Sodium Chloride () 250 mls @ 15 mls/hr IV .[id number] PRN PRN Reason: Additional IVPB Infusion Vancomycin HCl 1,500 mg/ (Sodium Chloride) 530 mls @ 250 mls/hr IV Q12H [facility] Last Infusion: 07/23/20 00:11 Dose: Infused Documented by: Insulin Glargine (Insulin Glargine 100 Units/Ml Pen) 20 units SC QHS [facility] Last Admin: 07/22/20 22:16 Dose: 20 units Documented by: Insulin Human Lispro (Insulin Lispro 100 Unit/Ml Insuln.Pen) 0 unit SC ACHS [facility]; Protocol Last Admin: 07/23/20 06:28 Dose: Not Given Documented by: L-Arginine/L-Glutamine/Calcium HMB (Glen (Unflavored) Packet) 1 packet PO BIDCM [facility] Last Admin: 07/23/20 07:55 Dose: Not Given Documented by: Lisinopril (Lisinopril 10 Mg Tablet) 10 mg PO DAILY [facility] Last Admin: 07/23/20 08:01 Dose: 10 mg Documented by: Morphine Sulfate (Morphine 2 Mg/Ml Syringe) 2 mg IV Q3H PRN PRN PRN Reason: Pain Score 6-10 Last Admin: 07/23/20 08:01 Dose: 2 mg Documented by: Ondansetron HCl (Ondansetron 4 Mg/2 Ml Vial) 4 mg IV Q8H PRN PRN PRN Reason: NAUSEA/VOMITING Oxycodone HCl (Oxycodone 5 Mg Tablet) 10 mg PO Q4H PRN PRN PRN Reason: Pain Score 4-5 Last Admin: 07/23/20 04:11 Dose: 10 mg Documented by: Sodium Chloride (0.9% Saline Lock 10 Ml Syringe) 10 - 40 ml IV UD PRN PRN Reason: SALINE FLUSH Last Admin: 07/23/20 08:01 Dose: 10 ml Documented by: STROKE Vital Signs/Narrative: Vital Signs Temp Pulse Resp BP Pulse Ox 07/23/20 04:07 97.6 F L 94 18 145/85 H 100 Medical Necessity - Tobacco Use Smoking Status: Current every day smoker Tobacco Use: Cigarettes Assessment/Plan Patient is a 50-year-old gentleman on admission for infected diabetic right plantar foot nonhealing ulcer with osteomyelitis. Hospital stay complicated by development of acute right lower extremity DVT 1. Polymicrobial infected/necrotic nonhealing diabetic plantar ulcer of the right foot/osteomyelitis of the fourth and fifth metatarsal Status post partial fourth and fifth ray amputation of the right foot on 07/17/[address] Jesus Ramos, a wound VAC placed on 07/21/2020. Patient is currently on vancomycin as well as Zosyn Microbiology 07/16/20 17:45 Gram Stain - Final Wound - Right Foot Wound Culture - Preliminary Meth. resistant Staph. aureus Pseudomonas stutzeri Gram positive carlos Anaerobic Culture - Preliminary Checking for anaerobes, further studies to follow. 07/17/20 13:31 Gram Stain - Final Bone - Right Foot Wound Culture - Final No growth aerobically. Anaerobic Culture - Preliminary No growth in 48 hours. Consultation placed to both podiatry medicine as well as infectious disease - 07/23/2020; patient seen had a relatively uneventful night. Still awaiting for placement. Patient has apparently been rejected by 3 facilities. Patient may need to go home with IV antibiotics were discussed with ID about adjusting antibiotics which may be able to be given at home at less frequent intervals 2. Acute right lower extremity DVT ?Currently on Eliquis 3. Diabetes mellitus type II - uncontrolled with hemoglobin A1c of 10.6 -patient's oral hypoglycemics held. -Placed on long acting insulin, Accu-Cheks a.c. and at bedtime and covered with sliding scale insulin 4. Hypertension - Blood pressure controlled, home medications continued with dose adjustment as needed 5. Chronic thrombocytopenia ?Platelet count at baseline 6. Morbid obesity - With a BMI of 50.7 patient was counseled on weight reduction Inpatient E&M: [id number] [facility] L2
[2020-07-23 09:18] LABS: Hematocrit 44.8 % (40-54); Hemoglobin 13.8 g/dL (13.0-16.5); Mean Corp Hgb Conc 30.8 g/dL (32-36); Mean Corpuscular Hgb 25.8 pg (27.0-32.0); Mean Corpuscular Volume 83.9 fL (80-94); Mean Platelet Vol. 12.3 fl (6.2-12.0); POSITIVE COUNT YES; Platelet Count 76 K/mm3 (150-450); RBC Distribution Width CV 13.9 % (11.6-14.6); RBC Distribution Width SD 42.9 fl (35.1-43.9); Red Blood Count 5.34 M/mm3 (4.6-6.2); White Blood Count 7.1 K/mm3 (4.4-11.0)
[2020-07-23 09:22] LABS: Scan Indicated on CBC? Y/N NO
[2020-07-23 09:38] LABS: Anion Gap 5 (5-15); BUN 13 mg/dL (7-18); BUN/Creat Ratio 9.9 RATIO (10-20); Calcium,Total 9.4 mg/dL (8.5-10.1); Chloride 103 mmol/L (98-107); Creatinine, Serum 1.31 mg/dL (0.70-1.30); EST Glomerular Filtration Rate 62 mL/min (>60); Est Glom Filt Rate - Afr Amer 74 mL/min (>60); Estimated Creatinine Clearance 71.85 ml/min; Glucose 154 mg/dL (74-106); Potassium 3.6 mmol/L (3.5-5.1); Sodium Level 141 mmol/L (136-145)
--- NOTE | 2020-07-23 11:09 | PCM.PN.ID ---
Subjective: Feeling ok, no fever - Physical Exam Vitals/I&O's: Vital Signs Temp Pulse Resp BP Pulse Ox 97.8 F 82 18 140/93 H 97 07/23/20 08:00 07/23/20 08:00 07/23/20 08:00 07/23/20 08:00 07/23/20 08:00 Oxygen Flow Rate (L/min) 2 Oxygen Delivery Method Room Air Weight: 164.9 kg Body Mass Index (BMI) 50.7 Finger Stick Blood Glucose 138 Intake and Output for Last 24 Hours 07/21/20 07/22/20 07/23/20 23:59 23:59 23:59 Intake Total 2560.5 / 2560.5 3024.50 / 3024.50 1078 / 1078 Output Total 3800 / 3800 5025 / 5025 2175 / 2175 Balance -1239.5 / -1239.5 -2000.50 / -2000.50 -1097 / -1097 General: Alert, Cooperative, No apparent distress Lungs: Clear to auscultation, Normal air movement Cardiovascular: Regular rate, Regular Rhythm Abdomen: Soft, Non Tender, Non-Distended Skin: Ulcer/ Wound - reviewed photo Microbiology Past 72 Hours 07/17/20 13:02 Bone - Right Foot Gram Stain - Final 07/17/20 13:02 Bone - Right Foot Wound Culture - Final Meth. resistant Staph. aureus Pediococcus pentosaceus Streptococcus agalactiae (B) 07/17/20 13:02 Bone - Right Foot Anaerobic Culture - Preliminary Bacteroides thetaiotaomicron Gram negative carlos#2 Anaerobic cocci 07/16/20 17:45 Wound - Right Foot Gram Stain - Final 07/16/20 17:45 Wound - Right Foot Wound Culture - Preliminary Meth. resistant Staph. aureus Pseudomonas stutzeri Gram positive carlos 07/16/20 17:45 Wound - Right Foot Anaerobic Culture - Final Bacteroides thetaiotaomicron Clostridium clostridioforme Anaerobic cocci 07/17/20 13:31 Bone - Right Foot Gram Stain - Final 07/17/20 13:31 Bone - Right Foot Wound Culture - Final No growth aerobically. 07/17/20 13:31 Bone - Right Foot Anaerobic Culture - Preliminary Checking for anaerobes, further studies to follow. Laboratory Results 07/17/20 08:00: S.aureus Protein A PCR POSITIVE H, MRSA (PCR) POSITIVE H 07/22/20 16:01: POC Glucose 174 H 07/22/20 22:02: POC Glucose 161 H 07/23/20 06:27: POC Glucose 140 H 07/23/20 08:45: WBC 7.1, RBC 5.34, Hgb 13.8, Hct 44.8, MCV 83.9, MCH 25.8 L, MCHC 30.8 L, RDW Std Deviation 42.9, RDW Coeff of Maria Fernanda 13.9, Plt Count 76 L, MPV 12.3 H 07/23/20 08:45: Sodium 141, Potassium 3.6, Chloride 103, Carbon Dioxide 33.0 H, Anion Gap 5, BUN 13, Creatinine 1.31 H, Estim Creat Clear Calc 71.85, Est GFR (MDRD) Af Amer 74, Est GFR (MDRD) Non-Af 62, BUN/Creatinine Ratio 9.9 L, Glucose 154 H, Calcium 9.4 Current Medications Acetaminophen (Acetaminophen 325 Mg Tablet) 650 mg PO Q6H PRN PRN PRN Reason: Pain Score 1-10/Temp > 100.7 F Last Admin: 07/22/20 20:32 Dose: 650 mg Documented by: Apixaban (Apixaban 5 Mg Tablet) 5 mg PO BID [facility] Last Admin: 07/23/20 08:02 Dose: 5 mg Documented by: Dextrose (Dextrose 50%-Water 25 Gm/50 Ml Disp.Syrin) 0 gm IV X1 PRN; Protocol PRN Reason: Hypoglycemia Glucagon (Glucagon 1 Mg/Ml Syringe) 1 mg IM .X1 PRN PRN Reason: Hypoglycemia Hydralazine HCl (Hydralazine 20 Mg/Ml Vial) 10 mg IV Q8H PRN PRN PRN Reason: for SBP>160 Last Admin: 07/22/20 22:15 Dose: 10 mg Documented by: Vancomycin IV Pharmacy to Dose (1 ea/ Sodium Chloride) 500 mls @ 250 mls/hr IV X1 PRN; Protocol PRN Reason: Rx to Dose Piperacillin Sod/Tazobactam (Sod 3.375 gm/ Sodium Chloride) 50 mls @ 12.5 mls/hr IV Q8 [facility] Last Admin: 07/23/20 06:28 Dose: 12.5 mls/hr Documented by: Sodium Chloride () 250 mls @ 15 mls/hr IV .[id number] PRN PRN Reason: Saline Flush Last Admin: 07/23/20 04:11 Dose: 15 mls/hr Documented by: Sodium Chloride () 250 mls @ 15 mls/hr IV .[id number] PRN PRN Reason: Additional IVPB Infusion Vancomycin HCl 1,500 mg/ (Sodium Chloride) 530 mls @ 250 mls/hr IV Q12H [facility] Last Admin: 07/23/20 09:57 Dose: 250 mls/hr Documented by: Insulin Glargine (Insulin Glargine 100 Units/Ml Pen) 20 units SC QHS [facility] Last Admin: 07/22/20 22:16 Dose: 20 units Documented by: Insulin Human Lispro (Insulin Lispro 100 Unit/Ml Insuln.Pen) 0 unit SC ACHS [facility]; Protocol Last Admin: 07/23/20 06:28 Dose: Not Given Documented by: L-Arginine/L-Glutamine/Calcium HMB (Glen (Unflavored) Packet) 1 packet PO BIDCM [facility] Last Admin: 07/23/20 07:55 Dose: Not Given Documented by: Lisinopril (Lisinopril 10 Mg Tablet) 10 mg PO DAILY [facility] Last Admin: 07/23/20 08:01 Dose: 10 mg Documented by: Morphine Sulfate (Morphine 2 Mg/Ml Syringe) 2 mg IV Q3H PRN PRN PRN Reason: Pain Score 6-10 Last Admin: 07/23/20 08:01 Dose: 2 mg Documented by: Ondansetron HCl (Ondansetron 4 Mg/2 Ml Vial) 4 mg IV Q8H PRN PRN PRN Reason: NAUSEA/VOMITING Oxycodone HCl (Oxycodone 5 Mg Tablet) 10 mg PO Q4H PRN PRN PRN Reason: Pain Score 4-5 Last Admin: 07/23/20 04:11 Dose: 10 mg Documented by: Sodium Chloride (0.9% Saline Lock 10 Ml Syringe) 10 - 40 ml IV UD PRN PRN Reason: SALINE FLUSH Last Admin: 07/23/20 08:01 Dose: 10 ml Documented by: Medical Necessity - Tobacco Use Smoking Status: Current every day smoker Tobacco Use: Cigarettes Route of nutrition/ use of supplements: [] Nutritional Intake: [] IV Site: [] Faulkner Catheter: [] - Assessment/Plan Antibiotics: [] Assessment/Plan: [] R foot osteo - pcr (+) mrsa, now s/p OR 07/17/20 for partial ray resection. On vanc/zosyn. He is open to going to a facility. Wound and surg cx with MRSA, strep, pediococcus, GPR, pseudomonas stutzeri, multiple anaerobes. Cannot be accepted to any facility due to insurance coverage. Will change abx to po linezolid/levaquin/flagyl for 2 week course. Bone margins were clear based on micro, path pending. ID followup in 2 weeks. He does not drink etoh. Encouraged him not to restart smoking. Will follow, d/w cyanide case hardener
[2020-07-23 11:35] LABS: Bedside Glucose 146 mg/dL (70-110)
--- NOTE | 2020-07-23 12:10 | CASEMGMT ---
ASHLEY PAZ NOTE: Per SW, Bella, unable to find SNF acceptance and pt is agreeable to going home w/HHC. Per PT notes, pt is able to ambulate w/a walker and maintain NWB status. ASHLEY PAZ to room to discuss discharge planning w/pt. He was provided w/list of HHC agencies w/ quality performance measures and he states 1st preference is [facility]. He states if [place] unable to accept him, he states he has no other preference. Discussed any DME needs. He states he needs a walker. Provided w/a list of local DME companies and he has no preference and is agreeable to [facility]. Pt denies need for other DME. He states he may need a tub/transfer bench for the tub/shower, but he is not sure if it will fit. ASHLEY PAZ recommended he have [facility] PT evaluate and give recommendations when they come to his home. He states thinks this would be best and states plans to sponge bathe in the interim until they evaluate his safety to shower. Pt denies need for C aide. Pt denies other discharge planning needs/concerns. He states he feels safe w/discharging home and that his cousin will take him home @ d/c. Referral packet faxed to [facility] and call placed to Cord[facility]. Referral made for SN, PT/OT. Adriano MTZ RN, CM
--- NOTE | 2020-07-23 12:32 | PN_ITS ---
Subjective: This 50-year-old diabetic male was seen bedside of right status post open fourth and fifth ray resection with drainage. He is a wound VAC in place and relates his pain is controlled. He denies fever, chill, nausea, vomiting, loss of appetite or calf pain. He was not approved for correction facility placement and will be discharged home within the next day. - Physical Exam Vitals/I&O's: Vital Signs Temp Pulse Resp BP Pulse Ox 97.8 F 82 18 140/93 H 97 07/23/20 08:00 07/23/20 08:00 07/23/20 08:00 07/23/20 08:00 07/23/20 08:00 Oxygen Flow Rate (L/min) 2 Oxygen Delivery Method Room Air Weight: 164.9 kg Body Mass Index (BMI) 50.7 Finger Stick Blood Glucose 138 Intake and Output for Last 24 Hours 07/21/20 07/22/20 07/23/20 23:59 23:59 23:59 Intake Total 2560.5 / 2560.5 3024.50 / 3024.50 1658 / 1658 Output Total 3800 / 3800 5025 / 5025 2175 / 2175 Balance -1239.5 / -1239.5 -2000.50 / -2000.50 -517 / -517 General: Alert, Oriented x3, Cooperative HEENT: Atraumatic Extremities: No Calf Tenderness, Edema Skin: - - Left lower extremity clean and intact. Wound VAC to right lower extremity is intact with no evidence of leaking. This is further secured with an Jens wrap Musculoskeletal: No Tenderness to Palpation of Joints or Extremities, Muscle Wasting, - - Fourth and fifth ray resection right. Active range of motion digits bilateral lower extremities Psych/Mental Status: Normal Affect, Appropriate Microbiology Past 72 Hours 07/17/20 13:02 Bone - Right Foot Gram Stain - Final 07/17/20 13:02 Bone - Right Foot Wound Culture - Final Meth. resistant Staph. aureus Pediococcus pentosaceus Streptococcus agalactiae (B) 07/17/20 13:02 Bone - Right Foot Anaerobic Culture - Preliminary Bacteroides thetaiotaomicron Gram negative carlos#2 Anaerobic cocci 07/16/20 17:45 Wound - Right Foot Gram Stain - Final 07/16/20 17:45 Wound - Right Foot Wound Culture - Preliminary Meth. resistant Staph. aureus Pseudomonas stutzeri Gram positive carlos 07/16/20 17:45 Wound - Right Foot Anaerobic Culture - Final Bacteroides thetaiotaomicron Clostridium clostridioforme Anaerobic cocci 07/17/20 13:31 Bone - Right Foot Gram Stain - Final 07/17/20 13:31 Bone - Right Foot Wound Culture - Final No growth aerobically. 07/17/20 13:31 Bone - Right Foot Anaerobic Culture - Preliminary Checking for anaerobes, further studies to follow. Laboratory Results 07/17/20 08:00: S.aureus Protein A PCR POSITIVE H, MRSA (PCR) POSITIVE H 07/22/20 16:01: POC Glucose 174 H 07/22/20 22:02: POC Glucose 161 H 07/23/20 06:27: POC Glucose 140 H 07/23/20 08:45: WBC 7.1, RBC 5.34, Hgb 13.8, Hct 44.8, MCV 83.9, MCH 25.8 L, MCHC 30.8 L, RDW Std Deviation 42.9, RDW Coeff of Maria Fernanda 13.9, Plt Count 76 L, MPV 12.3 H 07/23/20 08:45: Sodium 141, Potassium 3.6, Chloride 103, Carbon Dioxide 33.0 H, Anion Gap 5, BUN 13, Creatinine 1.31 H, Estim Creat Clear Calc 71.85, Est GFR (MDRD) Af Amer 74, Est GFR (MDRD) Non-Af 62, BUN/Creatinine Ratio 9.9 L, Glucose 154 H, Calcium 9.4 07/23/20 11:27: POC Glucose 146 H Current Medications Acetaminophen (Acetaminophen 325 Mg Tablet) 650 mg PO Q6H PRN PRN PRN Reason: Pain Score 1-10/Temp > 100.7 F Last Admin: 07/22/20 20:32 Dose: 650 mg Documented by: Apixaban (Apixaban 5 Mg Tablet) 5 mg PO BID [facility] Last Admin: 07/23/20 08:02 Dose: 5 mg Documented by: Dextrose (Dextrose 50%-Water 25 Gm/50 Ml Disp.Syrin) 0 gm IV X1 PRN; Protocol PRN Reason: Hypoglycemia Glucagon (Glucagon 1 Mg/Ml Syringe) 1 mg IM .X1 PRN PRN Reason: Hypoglycemia Hydralazine HCl (Hydralazine 20 Mg/Ml Vial) 10 mg IV Q8H PRN PRN PRN Reason: for SBP>160 Last Admin: 07/22/20 22:15 Dose: 10 mg Documented by: Vancomycin IV Pharmacy to Dose (1 ea/ Sodium Chloride) 500 mls @ 250 mls/hr IV X1 PRN; Protocol PRN Reason: Rx to Dose Piperacillin Sod/Tazobactam (Sod 3.375 gm/ Sodium Chloride) 50 mls @ 12.5 mls/hr IV Q8 [facility] Last Infusion: 07/23/20 10:28 Dose: Infused Documented by: Sodium Chloride () 250 mls @ 15 mls/hr IV .[id number] PRN PRN Reason: Saline Flush Last Admin: 07/23/20 04:11 Dose: 15 mls/hr Documented by: Sodium Chloride () 250 mls @ 15 mls/hr IV .[id number] PRN PRN Reason: Additional IVPB Infusion Vancomycin HCl 1,500 mg/ (Sodium Chloride) 530 mls @ 250 mls/hr IV Q12H [facility] Last Infusion: 07/23/20 12:06 Dose: Infused Documented by: Insulin Glargine (Insulin Glargine 100 Units/Ml Pen) 20 units SC QHS [facility] Last Admin: 07/22/20 22:16 Dose: 20 units Documented by: Insulin Human Lispro (Insulin Lispro 100 Unit/Ml Insuln.Pen) 0 unit SC ACHS [facility]; Protocol Last Admin: 07/23/20 11:29 Dose: Not Given Documented by: L-Arginine/L-Glutamine/Calcium HMB (Glen (Unflavored) Packet) 1 packet PO BIDCM [facility] Last Admin: 07/23/20 07:55 Dose: Not Given Documented by: Lisinopril (Lisinopril 10 Mg Tablet) 10 mg PO DAILY [facility] Last Admin: 07/23/20 08:01 Dose: 10 mg Documented by: Morphine Sulfate (Morphine 2 Mg/Ml Syringe) 2 mg IV Q3H PRN PRN PRN Reason: Pain Score 6-10 Last Admin: 07/23/20 08:01 Dose: 2 mg Documented by: Ondansetron HCl (Ondansetron 4 Mg/2 Ml Vial) 4 mg IV Q8H PRN PRN PRN Reason: NAUSEA/VOMITING Oxycodone HCl (Oxycodone 5 Mg Tablet) 10 mg PO Q4H PRN PRN PRN Reason: Pain Score 4-5 Last Admin: 07/23/20 04:11 Dose: 10 mg Documented by: Sodium Chloride (0.9% Saline Lock 10 Ml Syringe) 10 - 40 ml IV UD PRN PRN Reason: SALINE FLUSH Last Admin: 07/23/20 08:01 Dose: 10 ml Documented by: Medical Necessity - Tobacco Use Smoking Status: Current every day smoker Tobacco Use: Cigarettes Assessment/Plan Right foot ulcer down to necrotic bone w/ osteomyelitis s/p debridement on 07/17/2020 (Dr. Ramos) Diabetic neuropathy bilateral foot Uncontrolled diabetes Tobacco use Recurrent left foot ulcer down to subcutaneous tissue now s/p punch biopsy 07/17/2020 Acute right lower extremity DVT Reviewed diagnostic data. He is afebrile and his vital signs remained stable. He did not have leukocytosis; white blood cell count 7.1. Continue with wound vac right foot ulcer; 150 mmHg continuous every 72 hrs. Left foot ulcer: Aquacel ag, 4x4 gauze and jens dressing changes. No weightbearing right foot, keep right foot elevated at all times. Patient is on broad spectrum antibiotics, Vanc and Zosyn, ID/Dr. Soto on culture. PICC line ordered; stop date 08-28-20. Reviewed culture results; polymicrobial. Clearance fragments of the fourth and fifth rays are negative for bacterial growth and the final result is pending. F/u ID 2 wks d/c planning - Will be d/c home. He was not approved for SNF. DVT and medical management per hospitalist service is appreciated. To follow up with Dr. Ramos at [facility] in 1 week. Genevieve John DPM, FACFAS [facility] [phone]
--- NOTE | 2020-07-23 12:50 | CASEMGMT ---
Addendum entered by Grisel Vincent 07/23/20 16:06: Call received back from [facility]. She was made aware pt is ready for discharge today and that next wound vac change is due tomorrow 07/24. She states they are able to accept pt and able to do start of care tomorrow for wound vac dsg change. Call placed back to [facility] and referral cancelled. Pt made aware [facility] able to accept and start of care will be tomorrow. He was provided w/their contact information. Dr Cameron made aware [facility] has been set up for pt for start of care tomorrow. RNPeri, made aware. Green sheet placed on chart w/instructions to fax d/c instructions and summary to [facility] once they are available. [facility]: Addendum entered by Grisel Vincent 07/23/20 15:49: Call placed to [facility]. They do not have the staffing to accept pt at this time. Addendum entered by Grisel Vincent 07/23/20 15:39: Call placed to [facility] and referral made. Addendum entered by Grisel Vincent 07/23/20 15:23: Referral packet faxed to [facility] and to [facility]. Call placed to [facility] and spoke w/Destinee. She states she will call this RN CM back re: acceptance. Addendum entered by Grisel Vincent 07/23/20 15:13: Call received back from [facility]. They are not in-network w/pt's specific [employer] insurance. He states they attempted a one-time authorization for approval, but would this was not approved. Addendum entered by Grisel Vincent 07/23/20 14:58: Per Vanessa wound nurse, approval for Wound Vac has been received. Addendum entered by Grisel Vincent 07/23/20 14:55: Call placed to [facility] and referral made. Awaiting response re: acceptance. Script for WW faxed to [facility]. Call placed to Vicky at [facility] and she was made aware anticipate pt being discharged home today. She states they will deliver the walker to pt's room today. Original Note: ASHLEY PAZ NOTE: Call received from Cordelia @ [facility]. They are not able to accept pt d/t staffing. Adriano MTZ RN CM
--- NOTE | 2020-07-23 12:53 | CASEMGMT ---
Social Work Note Pt is able to discharge on PO antibiotics now. ALLISON in to speak with pt. ALLISON updated pt that he can discharge on PO antibiotics. ALLISON updated pt that this worker can check with [facility] again now that pt is on PO, they may be willing to accept pt now. ALLISON explained other option of home with [facility] and RN changing wound vac. Pt agreeable to home with [facility]. Pt states he is able to ambulate and prefers to return home. ALLISON updated RN CM. Plan: Home with [facility] Bella Morales TESTING CONSULTANT, CIVIL TRANSPORTATION ENGINEER
[2020-07-23 14:00] VITALS: BP 154/86; PULSE 100; RESP 16; TEMP 36.6; O2SAT 100
--- NOTE | 2020-07-23 16:58 | PCM.DC ---
- Discharge Diagnoses Current Active Problems: Current Active and Chronic Problems (Last Updated 07/18/20 @ 08:[address] Jazzy Mitchell MD) Osteomyelitis of toe of right foot (Chronic) KRYSTAL (obstructive sleep apnea) (Chronic) Dry skin dermatitis (Chronic) Thrombocytopenia (Chronic) Osteoarthritis (Chronic) Bilateral lower extremity edema (Chronic) Type 2 diabetes mellitus (Chronic) History of esophageal disorder (Chronic) Hypertension (Chronic) You will use the following diet at home:: Calorie/Carbohydrate Controlled (specify 1200, 1400, etc) - 1800 Discharge Activity: Return to Normal Activity, May not drive while taking narcotic pain medications. Allergies/Adverse Reactions: Allergies ketorolac [From Toradol] Adverse Reaction (Verified 07/16/20 12:01) Upset Stomach NSAIDS (Non-Steroidal Anti-Inflamma Adverse Reaction (Verified 07/16/20 12:01) Upset Stomach Medications to take at Discharge Dulaglutide [Trulicity] 1.5 mg SUBCUT QWEEK 01/23/20 Metformin HCl 1,000 mg PO BID 01/23/20 Acetaminophen [Tylenol Tablet] 650 mg PO Q6H PRN PRN tablet 07/23/20 Apixaban [Eliquis] 5 mg PO BID #120 tab 07/23/20 Glen (unflavored) [Glen Packet] 1 packet PO BIDCM #120 packet 07/23/20 Linezolid 600 mg PO BID #28 tab 07/23/20 Lisinopril [Zestril] 10 mg PO DAILY #60 tab 07/23/20 Metronidazole [Flagyl] 500 mg PO TID #42 tab 07/23/20 levoFLOXacin tablet [Levaquin tablet] 750 mg PO DAILY #14 tab 07/23/20 The following prescriptions were given: Apixaban [Eliquis] 5 mg PO BID #120 tab Transmission Status: Pending to [facility] Metronidazole [Flagyl] 500 mg PO TID #42 tab Prescription Printed Glen (unflavored) [Glen Packet] 1 packet PO BIDCM #120 packet Transmission Status: Pending to [facility] levoFLOXacin tablet [Levaquin tablet] 750 mg PO DAILY #14 tab Prescription Printed Linezolid 600 mg PO BID #28 tab Prescription Printed Lisinopril [Zestril] 10 mg PO DAILY #60 tab Transmission Status: Pending to [facility] Primary Care Physician: Gavin Raymundo MD [Primary Care Provider] - Please follow up with your Primary Care Physician in: in 1 week Test Results: Test results from this visit will be discussed in further detail at your follow-up appointment, if applicable. Please Follow Up With: Stoney Soto MD When: in 2 weeks Proposed Discharge Date: 07/23/20
--- NOTE | 2020-07-23 17:01 | PCM.DC.SUM ---
Discharge Date and Diagnosis Date of Admission: 07/16/20 Date of Discharge: 07/23/20 - Primary Discharge Diagnosis Acute Problems: Polymicrobial infected/necrotic nonhealing diabetic plantar ulcer of the right foot/osteomyelitis of the fourth and fifth metatarsa - Secondary Discharge Diagnosis Chronic Problems: Chronic Problems (Last Updated 07/18/20 @ 08:[address] Jazzy Mitchell MD) Osteomyelitis of toe of right foot (Chronic) KRYSTAL (obstructive sleep apnea) (Chronic) Dry skin dermatitis (Chronic) Thrombocytopenia (Chronic) Osteoarthritis (Chronic) Bilateral lower extremity edema (Chronic) Type 2 diabetes mellitus (Chronic) History of esophageal disorder (Chronic) Hypertension (Chronic) Hospital Course and Treatment Imaging Results: Microbiology 07/17/20 13:02 Bone - Right Foot Gram Stain - Final 07/17/20 13:02 Bone - Right Foot Wound Culture - Final Meth. resistant Staph. aureus Pediococcus pentosaceus Streptococcus agalactiae (B) 07/17/20 13:02 Bone - Right Foot Anaerobic Culture - Preliminary Bacteroides thetaiotaomicron Gram negative carlos#2 Anaerobic cocci 07/16/20 17:45 Wound - Right Foot Gram Stain - Final 07/16/20 17:45 Wound - Right Foot Wound Culture - Preliminary Meth. resistant Staph. aureus Pseudomonas stutzeri Gram positive carlos 07/16/20 17:45 Wound - Right Foot Anaerobic Culture - Final Bacteroides thetaiotaomicron Clostridium clostridioforme Anaerobic cocci 07/17/20 13:31 Bone - Right Foot Gram Stain - Final 07/17/20 13:31 Bone - Right Foot Wound Culture - Final No growth aerobically. 07/17/20 13:31 Bone - Right Foot Anaerobic Culture - Preliminary Checking for anaerobes, further studies to follow. 07/17/20 00:01 Mucosa - Nose SARS-CoV-2 Antigen (Rapid) - Final Clinical Impression(s) from Imaging Studies Foot X-Ray 07/16/20 12:12 IMPRESSION: Status post partial dictation the second toe. This is unchanged. Destruction of the distal portion of the fourth metatarsal as well as the proximal pharynx of the fourth toe. Minimal resorptive changes at the head of the fifth metatarsal. Soft tissue swelling. Ulcerated lesion along the plantar aspect of the foot at the fourth and fifth metatarsal phalangeal joints. Electronically Signed: Jeronimo Gomez, at 13:21 EST , Service support , Lower Extremity MRI 07/16/20 18:08 IMPRESSION: Osteomyelitis of the fourth and fifth metatarsals, phalanges of the fifth digit and fourth proximal and middle phalanges. Pathologic fracture of the fifth metatarsal neck. Electronically Signed: Rodney Benjamin MD at 7:31 EST Tel , Service support , Foot X-Ray 07/16/20 18:12 IMPRESSION: No definite change or acute abnormality. There has been indentation of the fifth digit. Electronically Signed: Omer Mathews MD at 19:57 EST , Service support , Foot X-Ray 07/17/20 14:00 IMPRESSION: Immediately status post amputation of the fourth and fifth rays. Electronically Signed: Omer Mathews MD at 17:17 EST , Service support , Consultations 07/16/20 17:15 Consult: Onc/Wound/coding compliance auditor Routine Comment: Operations: - - Left toe amputation Summary of Care Provided: Patient is a 50-year-old gentleman on admission for infected diabetic right plantar foot nonhealing ulcer with osteomyelitis. Hospital stay complicated by development of acute right lower extremity DVT 1. Polymicrobial infected/necrotic nonhealing diabetic plantar ulcer of the right foot/osteomyelitis of the fourth and fifth metatarsal Status post partial fourth and fifth ray amputation of the right foot on 07/17/[address] Jesus Ramos, a wound VAC placed on 07/21/2020. Patient is currently on vancomycin as well as Zosyn. Consultation placed to both podiatry medicine as well as infectious disease - 07/23/2020; patient seen had a relatively uneventful night. Still awaiting for placement. Patient has apparently been rejected by 3 facilities. Patient may need to go home with IV antibiotics were discussed with ID about adjusting antibiotics which may be able to be given at home at less frequent intervals - antibiotics adjusted to PO version by ID. Patient was discharged home with home Health 2. Acute right lower extremity DVT ?Currently on Eliquis. Rx written on DC 3. Diabetes mellitus type II - uncontrolled with hemoglobin A1c of 10.6 -patient's oral hypoglycemics held. -Placed on long acting insulin, Accu-Cheks a.c. and at bedtime and covered with sliding scale insulin 4. Hypertension - Blood pressure controlled, home medications continued with dose adjustment as needed 5. Chronic thrombocytopenia ?Platelet count at baseline 6. Tobacco dependence - Counselled on cessation 7. Morbid obesity - With a BMI of 50.7 patient was counseled on weight reduction - Physical Exam Vitals/I&O's: Vital Signs Temp Pulse Resp BP Pulse Ox 97.8 F 100 16 154/86 H 100 07/23/20 14:00 07/23/20 14:00 07/23/20 14:00 07/23/20 14:00 07/23/20 14:00 Oxygen Flow Rate (L/min) 2 Oxygen Delivery Method Room Air Weight: 164.9 kg Body Mass Index (BMI) 50.7 Finger Stick Blood Glucose 138 Intake and Output for Last 24 Hours 07/21/20 07/22/20 07/23/20 23:59 23:59 23:59 Intake Total 2560.5 / 2560.5 3024.50 / 3024.50 2108 / 2108 Output Total 3800 / 3800 5025 / 5025 3025 / 3025 Balance -1239.5 / -1239.5 -2000.50 / -2000.50 -917 / -917 General: Alert HEENT: Atraumatic Neurological: Neuro grossly intact Microbiology Past 72 Hours 07/17/20 13:02 Bone - Right Foot Gram Stain - Final 07/17/20 13:02 Bone - Right Foot Wound Culture - Final Meth. resistant Staph. aureus Pediococcus pentosaceus Streptococcus agalactiae (B) 07/17/20 13:02 Bone - Right Foot Anaerobic Culture - Preliminary Bacteroides thetaiotaomicron Gram negative carlos#2 Anaerobic cocci 07/16/20 17:45 Wound - Right Foot Gram Stain - Final 07/16/20 17:45 Wound - Right Foot Wound Culture - Preliminary Meth. resistant Staph. aureus Pseudomonas stutzeri Gram positive carlos 07/16/20 17:45 Wound - Right Foot Anaerobic Culture - Final Bacteroides thetaiotaomicron Clostridium clostridioforme Anaerobic cocci 07/17/20 13:31 Bone - Right Foot Gram Stain - Final 07/17/20 13:31 Bone - Right Foot Wound Culture - Final No growth aerobically. 07/17/20 13:31 Bone - Right Foot Anaerobic Culture - Preliminary Checking for anaerobes, further studies to follow. Laboratory Results 07/22/20 22:02: POC Glucose 161 H 07/23/20 06:27: POC Glucose 140 H 07/23/20 08:45: WBC 7.1, RBC 5.34, Hgb 13.8, Hct 44.8, MCV 83.9, MCH 25.8 L, MCHC 30.8 L, RDW Std Deviation 42.9, RDW Coeff of Maria Fernanda 13.9, Plt Count 76 L, MPV 12.3 H 07/23/20 08:45: Sodium 141, Potassium 3.6, Chloride 103, Carbon Dioxide 33.0 H, Anion Gap 5, BUN 13, Creatinine 1.31 H, Estim Creat Clear Calc 71.85, Est GFR (MDRD) Af Amer 74, Est GFR (MDRD) Non-Af 62, BUN/Creatinine Ratio 9.9 L, Glucose 154 H, Calcium 9.4 07/23/20 11:27: POC Glucose 146 H Current Medications Acetaminophen (Acetaminophen 325 Mg Tablet) 650 mg PO Q6H PRN PRN PRN Reason: Pain Score 1-10/Temp > 100.7 F Last Admin: 07/22/20 20:32 Dose: 650 mg Documented by: Apixaban (Apixaban 5 Mg Tablet) 5 mg PO BID BLAIR Last Admin: 07/23/20 08:02 Dose: 5 mg Documented by: Dextrose (Dextrose 50%-Water 25 Gm/50 Ml Disp.Syrin) 0 gm IV X1 PRN; Protocol PRN Reason: Hypoglycemia Glucagon (Glucagon 1 Mg/Ml Syringe) 1 mg IM .X1 PRN PRN Reason: Hypoglycemia Hydralazine HCl (Hydralazine 20 Mg/Ml Vial) 10 mg IV Q8H PRN PRN PRN Reason: for SBP>160 Last Admin: 07/22/20 22:15 Dose: 10 mg Documented by: Vancomycin IV Pharmacy to Dose (1 ea/ Sodium Chloride) 500 mls @ 250 mls/hr IV X1 PRN; Protocol PRN Reason: Rx to Dose Piperacillin Sod/Tazobactam (Sod 3.375 gm/ Sodium Chloride) 50 mls @ 12.5 mls/hr IV Q8 [facility] Last Admin: 07/23/20 13:37 Dose: 12.5 mls/hr Documented by: Sodium Chloride () 250 mls @ 15 mls/hr IV .[id number] PRN PRN Reason: Saline Flush Last Admin: 07/23/20 04:11 Dose: 15 mls/hr Documented by: Sodium Chloride () 250 mls @ 15 mls/hr IV .[id number] PRN PRN Reason: Additional IVPB Infusion Vancomycin HCl 1,500 mg/ (Sodium Chloride) 530 mls @ 250 mls/hr IV Q12H [facility] Last Infusion: 07/23/20 12:06 Dose: Infused Documented by: Insulin Glargine (Insulin Glargine 100 Units/Ml Pen) 20 units SC QHS [facility] Last Admin: 07/22/20 22:16 Dose: 20 units Documented by: Insulin Human Lispro (Insulin Lispro 100 Unit/Ml Insuln.Pen) [facility]; Protocol Last Admin: 07/23/20 11:29 Dose: Not Given Documented by: L-Arginine/L-Glutamine/Calcium HMB (Glen (Unflavored) Packet) 1 packet PO BIDCM [facility] Last Admin: 07/23/20 07:55 Dose: Not Given Documented by: Lisinopril (Lisinopril 10 Mg Tablet) 10 mg PO DAILY [facility] Last Admin: 07/23/20 08:01 Dose: 10 mg Documented by: Morphine Sulfate (Morphine 2 Mg/Ml Syringe) 2 mg IV Q3H PRN PRN PRN Reason: Pain Score 6-10 Last Admin: 07/23/20 08:01 Dose: 2 mg Documented by: Ondansetron HCl (Ondansetron 4 Mg/2 Ml Vial) 4 mg IV Q8H PRN PRN PRN Reason: NAUSEA/VOMITING Oxycodone HCl (Oxycodone 5 Mg Tablet) 10 mg PO Q4H PRN PRN PRN Reason: Pain Score 4-5 Last Admin: 07/23/20 04:11 Dose: 10 mg Documented by: Sodium Chloride (0.9% Saline Lock 10 Ml Syringe) 10 - 40 ml IV UD PRN PRN Reason: SALINE FLUSH Last Admin: 07/23/20 08:01 Dose: 10 ml Documented by: Discharge Diet: 1800 Calorie Control Diet Discharge Activity: Return to Normal Activity, May not drive while taking narcotic pain medications. Home Medications: Medications to take at Discharge Dulaglutide [Trulicity] 1.5 mg SUBCUT QWEEK 01/23/20 Metformin HCl 1,000 mg PO BID 01/23/20 Acetaminophen [Tylenol Tablet] 650 mg PO Q6H PRN PRN tablet 07/23/20 Apixaban [Eliquis] 5 mg PO BID #120 tab 07/23/20 Glen (unflavored) [Glen Packet] 1 packet PO BIDCM #120 packet 07/23/20 Linezolid 600 mg PO BID #28 tab 07/23/20 Lisinopril [Zestril] 10 mg PO DAILY #60 tab 07/23/20 Metronidazole [Flagyl] 500 mg PO TID #42 tab 07/23/20 levoFLOXacin tablet [Levaquin tablet] 750 mg PO DAILY #14 tab 07/23/20 Following Prescriptions Were Given to Patient: Apixaban [Eliquis] 5 mg PO BID #120 tab Transmission Status: Pending to [facility] Metronidazole [Flagyl] 500 mg PO TID #42 tab Prescription Printed Glen (unflavored) [Glen Packet] 1 packet PO BIDCM #120 packet Transmission Status: Pending to [facility] levoFLOXacin tablet [Levaquin tablet] 750 mg PO DAILY #14 tab Prescription Printed Linezolid 600 mg PO BID #28 tab Prescription Printed Lisinopril [Zestril] 10 mg PO DAILY #60 tab Transmission Status: Pending to [facility] Primary Care Physician: Gavin Raymundo MD [Primary Care Provider] - Please follow up with your Primary Care Physician in: in 1 week Please Follow Up With: Stoney Soto MD When: in 2 weeks Disposition: Home with Home Health Minutes spent on discharge:: 45 Patient Condition:: Stable Medical Necessity - Tobacco Use Smoking Status: Current every day smoker Tobacco Use: Cigarettes Meaningful Use Info Meaningful Use Diagnoses (Choose all that apply): None applicable Inpatient E&M: 73177 Disch Hosp
[2020-07-23] MEDS: Acetaminophen 325 MG Tablet 650 MG PO (17:04)
[2020-07-23 17:05] LABS: Bedside Glucose 118 mg/dL (70-110)
--- NOTE | 2020-07-23 17:53 | DCINST_ITS ---
Discharge Diet: 1800 Calorie Control Diet Discharge Activity: Return to Normal Activity, May not drive while taking narcotic pain medications., May Shower - with shower bag to right foot (surgical site) Weight Bearing Status: Partial weight bearing - heel right for transfers only; use assistive device. use surgical shoe and weightbear as tolerated to left foot also Keep extremity elevated above heart level: Right Leg Call your doctor if your incision/area has: Continuous Slow Oozing, Sudden Increased Bleeding, Increased Pain/ Swelling, Increased Redness, Foul Smelling Discharge, Swelling at the incision site Call your doctor if you observe: Fever of 101 or Higher, Calf discomfort, Uncontrolled pain Cleanse incision/area with: Keep Dressing Clean & Dry Additional Dressing/Incision Instructions:: Left: change wound/biopsy site every 24-48 hours with aquacel ag and dry gauze. right: wound vac every 72 hours; 150 mmHg continuous Allergies/Adverse Reactions: Allergies ketorolac [From Toradol] Adverse Reaction (Verified 07/16/20 12:01) Upset Stomach NSAIDS (Non-Steroidal Anti-Inflamma Adverse Reaction (Verified 07/16/20 12:01) Upset Stomach Medications to take at Discharge Dulaglutide [Trulicity] 1.5 mg SUBCUT QWEEK 01/23/20 Metformin HCl 1,000 mg PO BID 01/23/20 Acetaminophen [Tylenol Tablet] 650 mg PO Q6H PRN PRN tab 07/23/20 Apixaban [Eliquis] 5 mg PO BID #120 tab 07/23/20 Glen (unflavored) [Glen Packet] 1 packet PO BIDCM #120 packet 07/23/20 Linezolid 600 mg PO BID #28 tab 07/23/20 Lisinopril [Zestril] 10 mg PO DAILY #60 tab 07/23/20 Metronidazole [Flagyl] 500 mg PO TID #42 tab 07/23/20 levoFLOXacin tablet [Levaquin tablet] 750 mg PO DAILY #14 tab 07/23/20 The following prescriptions were given: Apixaban [Eliquis] 5 mg PO BID #120 tab Transmission Status: Received by [facility] Metronidazole [Flagyl] 500 mg PO TID #42 tab Prescription Printed Glen (unflavored) [Glen Packet] 1 packet PO BIDCM #120 packet Transmission Status: Received by [facility] levoFLOXacin tablet [Levaquin tablet] 750 mg PO DAILY #14 tab Prescription Printed Linezolid 600 mg PO BID #28 tab Prescription Printed Lisinopril [Zestril] 10 mg PO DAILY #60 tab Transmission Status: Received by [facility] Primary Care Physician: Gavin Raymundo MD [Primary Care Provider] - Please follow up with your Primary Care Physician in: in 1 week Test Results: Test results from this visit will be discussed in further detail at your follow- up appointment, if applicable. Please Follow Up With: Stoney Soto MD When: in 2 weeks Please Follow Up With: Jesus Ramos DPM When: 1 week [facility]; [phone] Proposed Discharge Date: 07/23/20
--- NOTE | 2020-07-25 11:41 | CASEMGMT ---
ASHLEY PAZ Discharge Follow-up Phone Call: MARLIN: Ivelisse Strata: 4 Call Date: 07/25/2020 Discharge Date: 07/23/2020 Time of Call: 1145 Duration: 1 min Admitting Diagnosis: Infected right plantar diabetic foot ulcer RN JACKSON attempted to complete call after recent hospitalization. No answer, voice message left with return contact information. Patient was setup with C with [facility] at discharge.
== END 2020-07-23 18:15 | disposition home health service (06) | DRG 305 ==
LOC: ED 12:22 → MS3 16:30
PROVIDERS: Anesthesiology; Hospitalist; Internal Medicine Infectious Disease; Nurse Practitioner Family; Podiatrist; Emergency Provider Student in an Organized Health Care Education/Training Program; PCP Internal Medicine; Visit Provider Internal Medicine
PROC: 0Y6M0ZF Detachment at Right Foot, Partial 5th Ray, Open Approach (ICD-10-PCS; principal; 2020-07-17 12:00)
DX: M86.671 Other chronic osteomyelitis, right ankle and foot (principal); E11.621 Type 2 diabetes mellitus with foot ulcer; L97.514 Non-pressure chronic ulcer of other part of right foot with necrosis of bone; G47.33 Obstructive sleep apnea (adult) (pediatric); D69.6 Thrombocytopenia, unspecified; L85.3 Xerosis cutis; I87.2 Venous insufficiency (chronic) (peripheral); I82.401 Acute embolism and thrombosis of unspecified deep veins of right lower extremity; A49.02 Methicillin resistant Staphylococcus aureus infection, unspecified site; I10 Essential (primary) hypertension; M19.90 Unspecified osteoarthritis, unspecified site; Z79.01 Long term (current) use of anticoagulants; Z79.4 Long term (current) use of insulin; Z79.899 Other long term (current) drug therapy; Z82.49 Family history of ischemic heart disease and other diseases of the circulatory system; Z83.3 Family history of diabetes mellitus; Z86.718 Personal history of other venous thrombosis and embolism; E66.01 Morbid (severe) obesity due to excess calories; Z68.43 Body mass index [BMI] 50.0-59.9, adult; E11.40 Type 2 diabetes mellitus with diabetic neuropathy, unspecified; E11.69 Type 2 diabetes mellitus with other specified complication; E11.65 Type 2 diabetes mellitus with hyperglycemia; F17.210 Nicotine dependence, cigarettes, uncomplicated
CPT/HCPCS: 36415; 36569; 73630; 73718; 80048; 80202; 82962; 83036; 85025; 85027; 85652; 86140; 87015; 87070; 87075; 87077; 87102; 87116; 87176; 87186; 87205; 87206; 87426; 87640; 88304; 88305; 88311; 93923; 93970; 97110; 97116; 97162; 97166; 97530; 97535; 99284; J7040; J7050; A4216; J2405

== ENCOUNTER 2020-08-06 09:45 | Outpatient (RCR) | payer MEDICAID, SELFPAY ==
[2020-07-17 10:00] VITALS: BMI 50.7
[2020-07-30 10:05] VITALS: BP 155/95; PULSE 100; RESP 18; TEMP 36; BMI 110.7
--- NOTE | 2020-07-30 11:36 | PCM.WC.HP ---
(1) Non-pressure chronic ulcer of other part of right foot with fat layer exposed Status: Acute Code(s): L97.512 - Non-pressure chronic ulcer of other part of right foot with fat layer exposed (2) Non-pressure chronic ulcer of other part of left foot with fat layer exposed Status: Acute Code(s): L97.522 - Non-pressure chronic ulcer of other part of left foot with fat layer exposed (3) Bilateral lower extremity edema Status: Chronic Code(s): R60.0 - Localized edema (4) Osteomyelitis of toe of right foot Status: Chronic Code(s): M86.9 - Osteomyelitis, unspecified (5) Type 2 diabetes mellitus Status: Chronic Code(s): E11.9 - Type 2 diabetes mellitus without complications History of Present Illness Date of Service: 08/02/20 Chief Complaint: Right foot plantar lateral ulceration status post fourth and fifth ray partial amputation. Left foot ulceration dorsal first interspace History of Wound: Patient is a 50-year-old male who presents to the wound care center for follow-up of hospital visit after surgical amputation of right fourth and fifth digits after osteomyelitis. Patient had removal of the fourth and fifth partial ray's by Dr. Ramos on 07/17/2020. Positive margins was noted on clearance fragments of right fourth and fifth rays. A biopsy was also obtained of left ulcer site near the first interspace dorsally. Patient has large deficit to foot given removal of infection severity. Patient is on a wound VAC. Patient was discharged on levofloxacin linezolid and Flagyl. Patient has since had wound VAC on with some issues with home health care application. Patient has no new pedal complaints. Past Medical History Past Medical History: Chronic Problems (Last Updated 07/18/20 @ 08:[address] Jazzy Mitchell MD) Osteomyelitis of toe of right foot (Chronic) KRYSTAL (obstructive sleep apnea) (Chronic) Dry skin dermatitis (Chronic) Thrombocytopenia (Chronic) Osteoarthritis (Chronic) Bilateral lower extremity edema (Chronic) Type 2 diabetes mellitus (Chronic) History of esophageal disorder (Chronic) Hypertension (Chronic) Surgical History: - - Right fourth fifth ray amputation partial Allergies/Adverse Reactions: Allergies ketorolac [From Toradol] Adverse Reaction (Verified 07/31/20 13:29) Upset Stomach NSAIDS (Non-Steroidal Anti-Inflamma Adverse Reaction (Verified 07/31/20 13:29) Upset Stomach Home Medications: Ambulatory Orders Medication Instructions Recorded Metformin HCl 1,000 mg PO BID 01/23/20 Acetaminophen [Tylenol Tablet] 650 mg PO Q6H PRN PRN tab 07/23/20 Apixaban [Eliquis] 5 mg PO BID #120 tab 07/23/20 Linezolid 600 mg PO BID #28 tab 07/23/20 Metronidazole [Flagyl] 500 mg PO TID #42 tab 07/23/20 levoFLOXacin tablet [Levaquin 750 mg PO DAILY #14 tab 07/23/20 tablet] lisinopril 20 mg tablet 20 mg PO DAILY 07/26/20 Hydrocodone Bitart/Apap 5-325 1 tab PO Q6H PRN PRN 7 Days #20 tab 07/30/20 [[place] 5MG-325MG] dulaglutide 3 mg/0.5 mL 3 mg SC QWEEK #2 ml 07/31/20 subcutaneous pen injector sitagliptin 100 mg tablet 100 mg PO DAILY #60 tab 07/31/20 - Family History Paternal Family History: Family History (Last Reviewed 07/16/20 @ 16:[address] Mc Gonzales, DO) Mother Hypertension Diabetes Heart disease Sister Hypertension Diabetes Crohns disease Brother Diabetes - - Denies known paternal medical history including cardiac history. Smoking Status: Current some day smoker Review of Systems Constitutional: Denies: Chills, Fever HEENT: Denies: Hard of Hearing Cardiovascular: Reports: Edema. Denies: Chest Pain Gastrointestinal: Denies: Nausea, Vomiting Musculoskeletal: Reports: - - Amputations to bilateral feet Skin: Reports: Wounds - Bilateral feet Neurological: Reports: Numbness, Tingling - Physical Exam Vital Signs Temp Pulse Resp BP 96.8 F L 100 18 155/95 H 07/30/20 10:05 07/30/20 10:05 07/30/20 10:05 07/30/20 10:05 General: Alert, Oriented x3 HEENT: Atraumatic Abdomen: Obese Extremities: No clubbing, No cyanosis, No Calf Tenderness, Cool - Left worse than right, Edema, Peripheral Pulses Normal, - - Elongated dystrophic discolored thickened yellowed toenails noted 1,3 right and 1,2,3,4 left Skin: Ulcer/ Wound - Left foot dorsal first interspace and right plantar lateral foot. No malodor, erythema, purulence, probing to bone, streaking, or other signs of infection. Skin is atrophic and hairless. Granular base with serosanguineous drainage after debridement. Right foot ulcer mild periwound maceration not Wound Measurements and Assessment WC - Nurse 1 - General Ulcer Measurement Start: 07/30/20 09:57 Freq: Status: Active Protocol: Activity Type Activity Date Activity User E-Sign Co-Sign Detail Recorded Client Recorded Date Recorded By Document 07/30/20 10:05 [email or web address] [id number] 07/30/20 10:27 MW 07/30/20 10:05 Wound Center Nurse 1 [Ulcer Assessment] #1 Right lateral foot/amp site -Combined with other wound No -Current Size (cm) - Length 8.0 -Current Size (cm) - Width 9.2 -Current Size (cm) - Depth 0.6 -Total Square Cm 73.60 -Date of Last Picture (Recall this 07/30/20 field) -Photo Taken Yes -Epithelialization None Present -Tunneling No -Undermining/Tunneling No -Circular Undermining No -Exudate Amt Large -Exudate Type Serosanguineous -Wound Margin Thickened -Granulation Amt Large (67-100%) -Granulation Quality Red -Slough/Fibrin Yes -Necrosis Amt Small (1-33%) -Necrotic Tissue Type Adherent Slough -Structure Exposed N/A -Texture (Michelle-wound Skin Appearance) Assessed, Localized Edema ,Scarring -Moisture (Michelle-wound Skin Appearance Assessed, ) Maceration -Color (Michelle-wound Skin Appearance) Assessed, Hemosiderin Staining -Temperature (Michelle-wound Skin No Abnormality Appearance) (Pt Warm) -Tenderness on Palpation (Michelle-wound Yes Skin Appearance) -Ulcer Cleansing soap and water -Foul Odor after Cleansing No -Anesthetic Used 4% Lidocaine Solution [Edema Assessment] -Lower Limb Edema Present Yes -Right Calf (cm) 51.0 -Right Ankle (cm) 29.5 -Left Calf (cm) 46.5 -Left Ankle (cm) 28.0 WC - Nurse 2 - General Ulcer CM Notes Start: 07/30/20 09:57 Freq: Status: Active Protocol: Activity Type Activity Date Activity User E-Sign Co-Sign Detail Recorded Client Recorded Date Recorded By Document 07/30/20 10:56 [id number] 07/30/20 11:01 07/30/20 10:56 Wound Center Nurse 2 [Procedure/Treatment] 2-left dorsal foot -Time 11:01 -Correct Patient Yes -Correct Side, Site, Position Yes -Correct Procedure Yes -Procedure Performed Yes -Type of Procedure Debridement -Clinical Debridement Subcutaneous -Tissue Removed Subcutaneous -Post Debridement (cm) - Length 1.0 -Post Debridement (cm) - Width 0.5 -Post Debridement (cm) - Depth 0.4 -Total Square (Post) (cm) 0.50 -Area of Debridement (cm) - Length 1.0 -Area of Debridement (cm) - Width 0.5 -Total Square (Area) (cm) 0.50 -Tunneling No -Undermining/Tunneling No -Circular Undermining No -Wound/Ulcer Outcome Not Healed -Ulcer Cleansing Rinsed/ Irrigated with Saline -Foul Odor after Cleansing No -Bioengineered Tissue No -Bleeding Controlled with Pressure -Offloading No -Treatment Response Procedure Tolerated Well -Debridement - Subq, 1st 20sq cm No #1 Right lateral foot/amp site -Time 10:57 -Correct Patient Yes -Correct Side, Site, Position Yes -Correct Procedure Yes -Procedure Performed Yes -Type of Procedure Debridement -Clinical Debridement Subcutaneous -Tissue Removed Subcutaneous -Post Debridement (cm) - Length 7.5 -Post Debridement (cm) - Width 8.5 -Post Debridement (cm) - Depth 3.1 -Total Square (Post) (cm) 63.75 -Area of Debridement (cm) - Length 7.5 -Area of Debridement (cm) - Width 8.5 -Total Square (Area) (cm) 63.75 -Tunneling No -Undermining/Tunneling No -Circular Undermining No -Wound/Ulcer Outcome Not Healed -Ulcer Cleansing Rinsed/ Irrigated with Saline -Foul Odor after Cleansing No -Bioengineered Tissue No -Bleeding Controlled with Pressure -Offloading Yes -Type of Offloading Camwalker -Treatment Response Procedure Tolerated Well -Debridement - Subq, 1st 20sq cm Yes -Debridement, SubQ, ea addt'l 20sq cm 3 or part thereof [See Physician Procedure note for Specifics] Pain Scale: 0-10 Numeric [Pain] -Is Patient Pain Free? Yes Musculoskeletal: - - Right second partial digit amp and fourth and fifth ray partial amputations, left 5th toe amputation Neurological: - - Lack of epicritic sensation consistent with neuropathy Psych/Mental Status: Normal Affect, Appropriate Debridement Note Post-Debridement Measurements/Treatment WC - Nurse 2 - General Ulcer CM Notes Start: 07/30/20 09:57 Freq: Status: Active Protocol: Activity Type Activity Date Activity User E-Sign Co-Sign Detail Recorded Client Recorded Date Recorded By Document 07/30/20 10:56 [id number] 07/30/20 11:01 07/30/20 10:56 Wound Center Nurse 2 2-left dorsal foot -Time 11:01 -Correct Patient Yes -Correct Side, Site, Position Yes -Correct Procedure Yes -Procedure Performed Yes -Type of Procedure Debridement -Clinical Debridement Subcutaneous -Tissue Removed Subcutaneous -Post Debridement (cm) - Length 1.0 -Post Debridement (cm) - Width 0.5 -Post Debridement (cm) - Depth 0.4 -Total Square (Post) (cm) 0.50 -Area of Debridement (cm) - Length 1.0 -Area of Debridement (cm) - Width 0.5 -Total Square (Area) (cm) 0.50 -Tunneling No -Undermining/Tunneling No -Circular Undermining No -Wound/Ulcer Outcome Not Healed -Ulcer Cleansing Rinsed/ Irrigated with Saline -Foul Odor after Cleansing No -Bioengineered Tissue No -Bleeding Controlled with Pressure -Offloading No -Treatment Response Procedure Tolerated Well -Debridement - Subq, 1st 20sq cm No #1 Right lateral foot/amp site -Time 10:57 -Correct Patient Yes -Correct Side, Site, Position Yes -Correct Procedure Yes -Procedure Performed Yes -Type of Procedure Debridement -Clinical Debridement Subcutaneous -Tissue Removed Subcutaneous -Post Debridement (cm) - Length 7.5 -Post Debridement (cm) - Width 8.5 -Post Debridement (cm) - Depth 3.1 -Total Square (Post) (cm) 63.75 -Area of Debridement (cm) - Length 7.5 -Area of Debridement (cm) - Width 8.5 -Total Square (Area) (cm) 63.75 -Tunneling No -Undermining/Tunneling No -Circular Undermining No -Wound/Ulcer Outcome Not Healed -Ulcer Cleansing Rinsed/ Irrigated with Saline -Foul Odor after Cleansing No -Bioengineered Tissue No -Bleeding Controlled with Pressure -Offloading Yes -Type of Offloading Camwalker -Treatment Response Procedure Tolerated Well -Debridement - Subq, 1st 20sq cm Yes -Debridement, SubQ, ea addt'l 20sq cm 3 or part thereof Pain Scale: 0-10 Numeric Is Patient Pain Free? Yes Wound debrided: Plantar lateral foot Laterality: Right Wound Grade/Stage: Sams 3 Type of Debridement: Excisional debridement Anesthesia Used: 4% Lidocaine Solution Depth: in the subcutaneous layer Percentage of wound debrided: 100 Instrument Used: 5mm curette Tissue Removed: Tissue removed includes fibrous, devitalized, biofilm, and slough tissue Severity: Fat Layer Exposed Amount of bleeding with debridement: Mild Bleeding Controlled with: Pressure Patient tolerated procedure well - Additional Wound Wound debrided: Dorsal first interspace left foot Laterality: Left Wound Grade/Stage: Sams 2 Type of Debridement: Excisional debridement Anesthesia Used: 4% Lidocaine Solution Depth: in the subcutaneous layer Percentage of wound debrided: 100 Instrument Used: 5mm curette Tissue Removed: Tissue removed includes fibrous, devitalized, biofilm, and slough tissue Severity: Fat Layer Exposed Amount of bleeding with debridement: Mild Bleeding Controlled with: Pressure Patient tolerated procedure: Patient tolerated procedure well Assessment/Plan Active Problems (Last Updated 07/18/20 @ 08:[address] Jazzy Mitchell MD) Non-pressure chronic ulcer of other part of right foot with fat layer exposed (Acute) Non-pressure chronic ulcer of other part of left foot with fat layer exposed (Acute) Osteomyelitis of toe of right foot (Chronic) Bilateral lower extremity edema (Chronic) Type 2 diabetes mellitus (Chronic) Assessment: Left foot ulceration dorsal first interspace Sams 2. Right foot plantar lateral aspect of foot status post osteomyelitis and fourth fifth ray resection Sams grade 3. Uncontrolled diabetes with neuropathy. Onychogryphosis. Obesity Plan: Patient seen and examined. Bilateral foot wounds were sharply debrided without incident with well tolerant by patient. Patient related that he is to see his primary care provider tomorrow. Patient noted to have a last A1c of 10.3. Discussed with patient the importance of offloading ulcer site, good nutrition including protein vitamin C, proper blood sugar control, and proper wound care to optimize healing. Patient relates that he is walking on his foot as little as possible when he does put any pressure he is in severe pain. Given recent surgery patient was given prescription for [place]. Patient to continue wound VAC with tracking to dorsal foot. We will consider advanced wound products such as TheraSkin in the future. Patient may also be a good candidate for HBO given recent osteomyelitis. Nails of left 1,2,3,4 and right 1,3 bilateral feet were sharply debrided with nail nippers in length and thickness by angling to nail nippers. This was done without incident. This was medically necessary due to patient's findings of neuropathy and care by a nonprofessional is not recommended. Patient to follow-up in 1 week. This note was generated with [employer] dictation software. It may contain incorrect words, spelling, and punctuation that were not noted in checking the note before signing.
[2020-08-06 09:44] VITALS: BP 149/81; PULSE 101; RESP 20; TEMP 35.8; BMI 110.7
--- NOTE | 2020-08-06 10:15 | PCM.WC.PN ---
(1) Non-pressure chronic ulcer of other part of right foot with fat layer exposed Status: Acute Code(s): L97.512 - Non-pressure chronic ulcer of other part of right foot with fat layer exposed (2) Non-pressure chronic ulcer of other part of left foot with fat layer exposed Status: Acute Code(s): L97.522 - Non-pressure chronic ulcer of other part of left foot with fat layer exposed (3) Bilateral lower extremity edema Status: Chronic Code(s): R60.0 - Localized edema (4) Osteomyelitis of toe of right foot Status: Chronic Code(s): M86.9 - Osteomyelitis, unspecified (5) Type 2 diabetes mellitus Status: Chronic Code(s): E11.9 - Type 2 diabetes mellitus without complications Type of Wound Date of Service: 08/06/20 Chief Complaint: Right foot plantar lateral ulceration status post fourth and fifth ray partial amputation. Left foot ulceration dorsal first interspace History of Wound: Patient is a 50-year-old male who presents to the wound care center for follow-up of hospital visit after surgical amputation of right fourth and fifth digits after osteomyelitis. Patient had removal of the fourth and fifth partial ray's by Dr. Ramos on 07/17/2020. Positive margins was noted on clearance fragments of right fourth and fifth rays. A biopsy was also obtained of left ulcer site near the first interspace dorsally which showed verrucual changes. Patient has large deficit to foot given removal of infection severity. Patient is on a wound VAC. Patient was discharged on levofloxacin linezolid and Flagyl. Patient has since had wound VAC on with some issues with home health care application. Patient has no new pedal complaints. Progress of Wound: Improving right foot ulceration. Stable left foot ulceration Subjective: Patient seen and examined bedside. Patient denies any new pedal complaints. Patient denies any nausea, fever, chills, chest pain, shortness of breath, cough, streaking, purulence, vomiting. - Physical Exam Vital Signs Temp Pulse Resp BP 96.4 F L 101 H 20 H 149/81 H 08/06/20 09:44 08/06/20 09:44 08/06/20 09:44 08/06/20 09:44 General: Alert, Oriented x3 HEENT: Atraumatic Abdomen: Obese Extremities: No clubbing, No cyanosis, Capillary Refill Less than 3 Seconds, No Calf Tenderness, Diminished Peripheral Pulses, Edema Skin: Ulcer/ Wound - Right plantar lateral foot and left dorsal first interspace ulcerations. No malodor, erythema, purulence, probing to bone, streaking, or other signs of infection. Skin is atrophic and hairless. Granular base with serosanguineous drainage after debridement. Less maceration noted to right foot Wound Measurements and Assessment WC - Nurse 1 - General Ulcer Measurement Start: 07/30/20 09:57 Freq: Status: Active Protocol: Activity Type Activity Date Activity User E-Sign Co-Sign Detail Recorded Client Recorded Date Recorded By Document 08/06/20 09:44 DL [id number] 08/06/20 09:53 DL 08/06/20 09:44 Wound Center Nurse 1 [Ulcer Assessment] 2-left dorsal foot -Current Size (cm) - Length 0.8 -Current Size (cm) - Width 0.3 -Current Size (cm) - Depth 0.2 -Total Square Cm 0.24 -Photo Taken No -Exudate Amt None Present -Wound Margin Distinct, Outline Attached -Granulation Amt None Present (0 %) -Necrosis Amt Large (67-100%) -Necrotic Tissue Type Adherent Slough -Structure Exposed N/A -Texture (Michelle-wound Skin Appearance) Scarring -Moisture (Michelle-wound Skin Appearance Dry/Scaly ) -Color (Michelle-wound Skin Appearance) Hemosiderin Staining -Temperature (Michelle-wound Skin No Abnormality Appearance) (Pt Warm) -Tenderness on Palpation (Michelle-wound No Skin Appearance) -Ulcer Cleansing Wound Cleanser -Foul Odor after Cleansing No -Anesthetic Used 4% Lidocaine Solution #1 Right lateral foot/amp site -Current Size (cm) - Length 8 -Current Size (cm) - Width 6.5 -Current Size (cm) - Depth 0.4 -Total Square Cm 52.0 -Photo Taken No -Exudate Amt Medium -Exudate Type Serosanguineous -Wound Margin Distinct, Outline Attached -Granulation Amt Large (67-100%) -Granulation Quality Red -Necrosis Amt Small (1-33%) -Necrotic Tissue Type Adherent Slough -Structure Exposed N/A -Texture (Michelle-wound Skin Appearance) Scarring -Moisture (Michelle-wound Skin Appearance Maceration ) -Color (Michelle-wound Skin Appearance) Hemosiderin Staining -Temperature (Michelle-wound Skin No Abnormality Appearance) (Pt Warm) -Tenderness on Palpation (Michelle-wound No Skin Appearance) -Ulcer Cleansing Wound Cleanser -Foul Odor after Cleansing No -Anesthetic Used 4% Lidocaine Solution WC - Nurse 2 - General Ulcer CM Notes Start: 07/30/20 09:57 Freq: Status: Active Protocol: Activity Type Activity Date Activity User E-Sign Co-Sign Detail Recorded Client Recorded Date Recorded By Document 08/06/20 10:03 JERSON [id number] 08/06/20 10:09 JERSON 08/06/20 10:03 Wound Center Nurse 2 [Procedure/Treatment] 2-left dorsal foot -Time 10:03 -Correct Patient Yes -Correct Side, Site, Position Yes -Correct Procedure Yes -Procedure Performed Yes -Type of Procedure Debridement -Clinical Debridement Subcutaneous -Tissue Removed Subcutaneous -Post Debridement (cm) - Length 1 -Post Debridement (cm) - Width 0.3 -Post Debridement (cm) - Depth 0.2 -Total Square (Post) (cm) 0.3 -Area of Debridement (cm) - Length 1 -Area of Debridement (cm) - Width 0.3 -Total Square (Area) (cm) 0.3 -Tunneling No -Undermining/Tunneling No -Circular Undermining No -Wound/Ulcer Outcome Not Healed -Ulcer Cleansing Rinsed/ Irrigated with Saline -Foul Odor after Cleansing No -Bioengineered Tissue No -Bleeding Controlled with Pressure -Offloading No -Treatment Response Procedure Tolerated Well -Debridement - Subq, 1st 20sq cm Yes -Debridement, SubQ, ea addt'l 20sq cm 2 or part thereof #1 Right lateral foot/amp site -Time 10:04 -Correct Patient Yes -Correct Side, Site, Position Yes -Correct Procedure Yes -Procedure Performed Yes -Type of Procedure Debridement -Clinical Debridement Subcutaneous -Tissue Removed Subcutaneous -Post Debridement (cm) - Length 6.5 -Post Debridement (cm) - Width 6.2 -Post Debridement (cm) - Depth 1 -Total Square (Post) (cm) 40.30 -Area of Debridement (cm) - Length 6.5 -Area of Debridement (cm) - Width 6.2 -Total Square (Area) (cm) 40.30 -Tunneling No -Undermining/Tunneling No -Circular Undermining No -Wound/Ulcer Outcome Not Healed -Ulcer Cleansing Rinsed/ Irrigated with Saline -Foul Odor after Cleansing No -Bioengineered Tissue No -Bleeding Controlled with Pressure -Offloading No -Treatment Response Procedure Tolerated Well -Debridement - Subq, 1st 20sq cm No -Debridement, SubQ, ea addt'l 20sq cm 2 or part thereof [See Physician Procedure note for Specifics] Pain Scale: 0-10 Numeric [Pain] -Is Patient Pain Free? Yes Musculoskeletal: - - Unable to reach feet due to body habitus. Right fourth and fifth ray resection, partial second toe amp. Left fifth digit amp. Neurological: - - Lack of epicritic sensation consistent with neuropathy Psych/Mental Status: Normal Affect, Appropriate, Alert and oriented to time, place, person, mood and affect Debridement Note Post-Debridement Measurements/Treatment WC - Nurse 2 - General Ulcer CM Notes Start: 07/30/20 09:57 Freq: Status: Active Protocol: Activity Type Activity Date Activity User E-Sign Co-Sign Detail Recorded Client Recorded Date Recorded By Document 07/30/20 10:56 [id number] 07/30/20 11:01 Document 08/06/20 10:03 [id number] 08/06/20 10:09 07/30/20 08/06/20 10:56 10:03 Wound Center Nurse 2 2-left dorsal foot -Time 11:01 10:03 -Correct Patient Yes Yes -Correct Side, Site, Position Yes Yes -Correct Procedure Yes Yes -Procedure Performed Yes Yes -Type of Procedure Debridement Debridement -Clinical Debridement Subcutaneous Subcutaneous -Tissue Removed Subcutaneous Subcutaneous -Post Debridement (cm) - Length 1.0 1 -Post Debridement (cm) - Width 0.5 0.3 -Post Debridement (cm) - Depth 0.4 0.2 -Total Square (Post) (cm) 0.50 0.3 -Area of Debridement (cm) - Length 1.0 1 -Area of Debridement (cm) - Width 0.5 0.3 -Total Square (Area) (cm) 0.50 0.3 -Tunneling No No -Undermining/Tunneling No No -Circular Undermining No No -Wound/Ulcer Outcome Not Healed Not Healed -Ulcer Cleansing Rinsed/ Rinsed/ Irrigated with Irrigated with Saline Saline -Foul Odor after Cleansing No No -Bioengineered Tissue No No -Bleeding Controlled with Pressure Pressure -Offloading No No -Treatment Response Procedure Procedure Tolerated Well Tolerated Well -Debridement - Subq, 1st 20sq cm No Yes -Debridement, SubQ, ea addt'l 20sq cm 2 or part thereof #1 Right lateral foot/amp site -Time 10:57 10:04 -Correct Patient Yes Yes -Correct Side, Site, Position Yes Yes -Correct Procedure Yes Yes -Procedure Performed Yes Yes -Type of Procedure Debridement Debridement -Clinical Debridement Subcutaneous Subcutaneous -Tissue Removed Subcutaneous Subcutaneous -Post Debridement (cm) - Length 7.5 6.5 -Post Debridement (cm) - Width 8.5 6.2 -Post Debridement (cm) - Depth 3.1 1 -Total Square (Post) (cm) 63.75 40.30 -Area of Debridement (cm) - Length 7.5 6.5 -Area of Debridement (cm) - Width 8.5 6.2 -Total Square (Area) (cm) 63.75 40.30 -Tunneling No No -Undermining/Tunneling No No -Circular Undermining No No -Wound/Ulcer Outcome Not Healed Not Healed -Ulcer Cleansing Rinsed/ Rinsed/ Irrigated with Irrigated with Saline Saline -Foul Odor after Cleansing No No -Bioengineered Tissue No No -Bleeding Controlled with Pressure Pressure -Offloading Yes No -Type of Offloading Camwalker -Treatment Response Procedure Procedure Tolerated Well Tolerated Well -Debridement - Subq, 1st 20sq cm Yes No -Debridement, SubQ, ea addt'l 20sq cm 3 2 or part thereof Pain Scale: 0-10 Numeric Is Patient Pain Free? Yes Yes Wound debrided: Lateral plantar foot Laterality: Right Wound Grade/Stage: Sams 3 Type of Debridement: Excisional debridement Anesthesia Used: 4% Lidocaine Solution Depth: in the subcutaneous layer Percentage of wound debrided: 100 Instrument Used: 3mm curette Tissue Removed: Tissue removed includes fibrous, devitalized, biofilm, and slough tissue Severity: Fat Layer Exposed Amount of bleeding with debridement: Mild Bleeding Controlled with: Pressure Patient tolerated procedure well - Additional Wound Wound debrided: Dorsal first interspace Laterality: Left Wound Grade/Stage: Sams 2 Type of Debridement: Excisional debridement Anesthesia Used: 4% Lidocaine Solution Depth: in the subcutaneous layer Percentage of wound debrided: 100 Instrument Used: 3mm curette Tissue Removed: Tissue removed includes fibrous, devitalized, biofilm, and slough tissue Severity: Fat Layer Exposed Amount of bleeding with debridement: Mild Bleeding Controlled with: Pressure Patient tolerated procedure: Patient tolerated procedure well Assessment/Plan Active Problems (Last Updated 07/18/20 @ 08:[address] Jazzy Mitchell MD) Non-pressure chronic ulcer of other part of right foot with fat layer exposed (Acute) Non-pressure chronic ulcer of other part of left foot with fat layer exposed (Acute) Osteomyelitis of toe of right foot (Chronic) Bilateral lower extremity edema (Chronic) Type 2 diabetes mellitus (Chronic) Assessment: Left foot ulceration dorsal first interspace Sams 2. Right foot plantar lateral aspect of foot status post osteomyelitis and fourth fifth ray resection Sams grade 3. Uncontrolled diabetes with neuropathy. Morbid obesity Plan: Patient seen and examined. Bilateral foot wounds were sharply debrided without incident with well tolerant by patient due to neuropathy. Patient noted to have a last A1c of 10.3. Patient noted to have positive margins from recent surgery amputation of fourth and fifth rays right foot. Verruca changes noted to ulcer biopsy of left dorsal first interspace. Discussed with patient the importance of offloading ulcer site, good nutrition including protein vitamin C, proper blood sugar control, and proper wound care to optimize healing. Patient relates that he is walking on his foot as little as possible when he does put any pressure he is in severe pain. He has a cam boot. And physical therapy has been working with him at home. Given recent surgery patient was given prescription for [place] 07/30/2020. Patient did not ask for another refill this visit. Patient to continue wound VAC with tracking to dorsal foot. Patient relates that the [facility] [employer] states that they cannot come on on the weekends to complete a Wednesday wound VAC change scheduled. Due to him seeing me on Tuesdays it was decided that we will try a twice a week VAC change schedule and see how that is tolerated. Ideally patient would have 3 changes per week. To continue for Fibracol to the left ulceration. We will consider advanced wound products such as TheraSkin in the future. Patient may also be a good candidate for HBO given recent osteomyelitis. Patient to follow-up in 1 week. This note was generated with [employer] software. It may contain incorrect words, spelling, and punctuation that were not noted in checking the note before signing.
== END 2020-08-11 23:59 ==
LOC: WC 09:45
PROVIDERS: PCP Internal Medicine; Referring Provider Podiatrist; Visit Provider Podiatrist Foot & Ankle Surgery
DX: E11.621 Type 2 diabetes mellitus with foot ulcer (principal); L97.512 Non-pressure chronic ulcer of other part of right foot with fat layer exposed; L97.522 Non-pressure chronic ulcer of other part of left foot with fat layer exposed; M86.171 Other acute osteomyelitis, right ankle and foot; R60.0 Localized edema; E11.40 Type 2 diabetes mellitus with diabetic neuropathy, unspecified; E11.65 Type 2 diabetes mellitus with hyperglycemia; E11.69 Type 2 diabetes mellitus with other specified complication; E66.01 Morbid (severe) obesity due to excess calories; G47.33 Obstructive sleep apnea (adult) (pediatric); I10 Essential (primary) hypertension; M19.90 Unspecified osteoarthritis, unspecified site; L60.2 Onychogryphosis; Z79.01 Long term (current) use of anticoagulants; Z79.84 Long term (current) use of oral hypoglycemic drugs; Z79.899 Other long term (current) drug therapy; Z82.49 Family history of ischemic heart disease and other diseases of the circulatory system; Z83.3 Family history of diabetes mellitus; Z88.6 Allergy status to analgesic agent
CPT/HCPCS: 11042; 11045; 97605; 99213; G0463

== ENCOUNTER 2020-09-03 09:45 | Outpatient (RCR) | payer MEDICAID, SELFPAY ==
[2020-08-12 00:40] VITALS: BP 149/81; PULSE 101; RESP 20; TEMP 35.8; BMI 50.7
[2020-08-13 09:55] VITALS: BP 122/78; PULSE 76; RESP 18; TEMP 35.9; BMI 50.7
--- NOTE | 2020-08-13 10:30 | PCM.WC.PN ---
(1) Non-pressure chronic ulcer of other part of right foot with fat layer exposed Status: Acute Code(s): L97.512 - Non-pressure chronic ulcer of other part of right foot with fat layer exposed (2) Non-pressure chronic ulcer of other part of left foot with fat layer exposed Status: Acute Code(s): L97.522 - Non-pressure chronic ulcer of other part of left foot with fat layer exposed (3) Osteomyelitis of toe of right foot Status: Chronic Code(s): M86.9 - Osteomyelitis, unspecified (4) Bilateral lower extremity edema Status: Chronic Code(s): R60.0 - Localized edema (5) Type 2 diabetes mellitus Status: Chronic Qualifiers: Diabetes mellitus complication status: with skin complications Diabetes mellitus complication detail: with foot ulcer Code(s): E11.9 - Type 2 diabetes mellitus without complications Type of Wound Date of Service: 08/13/20 Chief Complaint: Right foot plantar lateral ulceration status post fourth and fifth ray partial amputation. Left foot ulceration dorsal first interspace History of Wound: Patient is a 50-year-old male who presents to the wound care center for follow-up of hospital visit after surgical amputation of right fourth and fifth digits after osteomyelitis. Patient had removal of the fourth and fifth partial ray's by Dr. Ramos on 07/17/2020. Positive margins was noted on clearance fragments of right fourth and fifth rays. A biopsy was also obtained of left ulcer site near the first interspace dorsally which showed verrucual changes. Patient has large deficit to foot given removal of infection severity. Patient is on a wound VAC. Patient was discharged on levofloxacin linezolid and Flagyl. Patient has since had wound VAC on. Patient states that they have sorted out the home health care issue and the VAC is being applied properly with washing of the lower extremities. Patient has no new pedal complaints. Progress of Wound: Improving right foot ulceration. Stable left foot ulceration Subjective: Patient seen and examined bedside. Patient denies any new pedal complaints. Patient denies any nausea, fever, chills, chest pain, shortness of breath, cough, streaking, purulence, vomiting. Patient reports home health care issue has been started out with dressing changes - Physical Exam Vital Signs Temp Pulse Resp BP 96.7 F L 76 18 122/78 H 08/13/20 09:55 08/13/20 09:55 02/02/21 09:55 08/13/20 09:55 General: Alert, Oriented x3 HEENT: Atraumatic Abdomen: Obese Extremities: No clubbing, No cyanosis, Capillary Refill Less than 3 Seconds, No Calf Tenderness, Diminished Peripheral Pulses, Edema, - - Left second digit tuft noted callus with some discoloration due to dried blood in it. This was debrided away with a curette with no underlying ulceration noted. Skin: Ulcer/ Wound - Right lateral foot. No malodor, erythema, purulence, probing to bone, streaking, or other signs of infection. Skin is atrophic and hairless. Maceration to periwound has improved. Granular base with serosanguineous drainage after debridement less depth noted, - - Left dorsal first interspace ulceration. No malodor, erythema, purulence, probing to bone, streaking, or other signs of infection. Skin is atrophic and hairless. Granular base with serosanguineous drainage after debridement depth is less Wound Measurements and Assessment WC - Nurse 1 - General Ulcer Measurement Start: 08/13/20 09:55 Freq: Status: Active Protocol: Activity Type Activity Date Activity User E-Sign Co-Sign Detail Recorded Client Recorded Date Recorded By Document 08/13/20 09:55 JERSON [id number] 08/13/20 10:05 JERSON 08/13/20 09:55 Wound Center Nurse 1 [Ulcer Assessment] 2-left dorsal foot -Combined with other wound No -Current Size (cm) - Length 0.1 -Current Size (cm) - Width 0.1 -Current Size (cm) - Depth 0.1 -Total Square Cm 0.01 -Photo Taken No -Epithelialization Large 67-100% -Tunneling No -Undermining/Tunneling No -Circular Undermining No -Exudate Amt None Present -Wound Margin Flat & Intact -Granulation Amt None Present (0 %) -Slough/Fibrin Yes -Necrosis Amt Small (1-33%) -Necrotic Tissue Type Adherent Slough -Structure Exposed N/A -Texture (Michelle-wound Skin Appearance) Assessed -Moisture (Michelle-wound Skin Appearance Assessed,Dry/ ) Scaly -Color (Michelle-wound Skin Appearance) Assessed -Temperature (Michelle-wound Skin No Abnormality Appearance) (Pt Warm) -Tenderness on Palpation (Michelle-wound No Skin Appearance) -Ulcer Cleansing Wound Cleanser -Foul Odor after Cleansing No -Anesthetic Used 4% Lidocaine Solution #1 Right lateral foot/amp site -Combined with other wound No -Current Size (cm) - Length 4.8 -Current Size (cm) - Width 8.1 -Current Size (cm) - Depth 0.3 -Total Square Cm 38.88 -Photo Taken No -Epithelialization Large 67-100% -Tunneling No -Undermining/Tunneling No -Circular Undermining No -Exudate Amt Medium -Exudate Type Serosanguineous -Wound Margin Flat & Intact -Granulation Amt Large (67-100%) -Granulation Quality Red -Slough/Fibrin Yes -Necrosis Amt Small (1-33%) -Necrotic Tissue Type Adherent Slough -Structure Exposed N/A -Texture (Michelle-wound Skin Appearance) Assessed -Moisture (Michelle-wound Skin Appearance Assessed, ) Weeping -Color (Michelle-wound Skin Appearance) Assessed -Temperature (Michelle-wound Skin No Abnormality Appearance) (Pt Warm) -Tenderness on Palpation (Michelle-wound No Skin Appearance) -Ulcer Cleansing Rinsed/ Irrigated with Saline -Foul Odor after Cleansing No -Anesthetic Used 4% Lidocaine Solution [Edema Assessment] -Lower Limb Edema Present No Musculoskeletal: No Tenderness to Palpation of Joints or Extremities, - - Toe amputations Neurological: - - Lack of epicritic sensation consistent with neuropathy Psych/Mental Status: Normal Affect, Appropriate Debridement Note Wound debrided: Dorsal first interspace Laterality: Left Wound Grade/Stage: Sams 1 Type of Debridement: Excisional debridement Anesthesia Used: 4% Lidocaine Solution Depth: in the subcutaneous layer Percentage of wound debrided: 100 Instrument Used: 3mm curette Tissue Removed: Tissue removed includes fibrous, devitalized, biofilm, and slough tissue Severity: Fat Layer Exposed Amount of bleeding with debridement: Mild Bleeding Controlled with: Pressure Patient tolerated procedure well - Additional Wound Wound debrided: Lateral foot Laterality: Right Wound Grade/Stage: Sams 3 Type of Debridement: Excisional debridement Anesthesia Used: 4% Lidocaine Solution Depth: in the subcutaneous layer Percentage of wound debrided: 100 Instrument Used: 5mm curette Tissue Removed: Tissue removed includes fibrous, devitalized, biofilm, and slough tissue Severity: Fat Layer Exposed Amount of bleeding with debridement: Moderate Bleeding Controlled with: Pressure Patient tolerated procedure: Patient tolerated procedure well Assessment/Plan Assessment: Left foot ulceration dorsal first interspace Sams 1. Right foot plantar lateral aspect of foot status post osteomyelitis and fourth fifth ray resection Sams grade 3. Uncontrolled diabetes with neuropathy. Morbid obesity Plan: Patient seen and examined. Bilateral foot wounds were sharply debrided without incident with well tolerant by patient due to neuropathy after verbal assent obtained. Patient noted to have a last A1c of 10.3. Patient noted to have positive margins from recent surgery amputation of fourth and fifth rays right foot. Verruca changes noted to ulcer biopsy of left dorsal first interspace. Patient is still taking antibiotics. Discussed with patient the importance of offloading ulcer site, good nutrition including protein vitamin C, proper blood sugar control, and proper wound care to optimize healing. Patient relates that he is walking on his foot as little as possible when he does put any pressure he has pain which has improved. He has a cam boot. And physical therapy has been working with him at home. Given recent surgery patient was given prescription for [place] 07/30/2020. Patient did not ask for another refill this visit. Patient to continue wound VAC with tracking to dorsal foot. To continue for Fibracol to the left ulceration. Applied for TheraSkin for right foot ulceration. If approved this will be applied under VAC at next visit. Patient may also be a good candidate for HBO given recent osteomyelitis. Patient to follow-up in 1 week. This note was generated with [employer] dictation software. It may contain incorrect words, spelling, and punctuation that were not noted in checking the note before signing.
[2020-08-20 10:26] VITALS: BP 153/82; PULSE 115; RESP 18; TEMP 36; BMI 50.7
--- NOTE | 2020-08-20 12:32 | PCM.WC.PN ---
(1) Non-pressure chronic ulcer of other part of right foot with fat layer exposed Status: Acute Code(s): L97.512 - Non-pressure chronic ulcer of other part of right foot with fat layer exposed (2) Non-pressure chronic ulcer of other part of left foot with fat layer exposed Status: Acute Code(s): L97.522 - Non-pressure chronic ulcer of other part of left foot with fat layer exposed (3) Osteomyelitis of toe of right foot Status: Chronic Code(s): M86.9 - Osteomyelitis, unspecified (4) Bilateral lower extremity edema Status: Chronic Code(s): R60.0 - Localized edema (5) Type 2 diabetes mellitus Status: Chronic Qualifiers: Diabetes mellitus complication status: with skin complications Diabetes mellitus complication detail: with foot ulcer Code(s): E11.9 - Type 2 diabetes mellitus without complications Type of Wound Date of Service: 08/20/20 Chief Complaint: Right foot plantar lateral ulceration status post fourth and fifth ray partial amputation. Left foot ulceration dorsal first interspace History of Wound: Patient is a 50-year-old male who presents to the wound care center for follow-up of hospital visit after surgical amputation of right fourth and fifth digits after osteomyelitis. Patient had removal of the fourth and fifth partial ray's by Dr. Ramos on 07/17/2020. Positive margins was noted on clearance fragments of right fourth and fifth rays. A biopsy was also obtained of left ulcer site near the first interspace dorsally which showed verrucual changes. Patient has large deficit to foot given removal of infection severity. Patient is on a wound VAC. Patient was discharged on levofloxacin linezolid and Flagyl. Patient has since had wound VAC on. Patient states that they have largely sorted out the home health care issue with the wound VAC being applied properly with washing of the lower extremities. Patient relates the foam was placed directly on his skin to top of foot bridging which is reason for new wound today. Progress of Wound: Improving right foot ulceration. worsening of left foot ulceration. new dorsal right foot ucleration Subjective: Patient seen and examined resting comfortably. Patient relates new wound to top of right foot where wound vac foam was placed directly on skin. Patient denies any nausea, fever, chills, chest pain, shortness of breath, cough, streaking, purulence, vomiting. - Physical Exam Vital Signs Temp Pulse Resp BP 96.8 F L 115 H 18 153/82 H 08/20/20 10:26 08/20/20 10:26 08/20/20 10:26 08/20/20 10:26 General: Alert, Oriented x3 HEENT: Atraumatic Abdomen: Obese Extremities: No clubbing, No cyanosis, Capillary Refill Less than 3 Seconds, No Calf Tenderness, Diminished Peripheral Pulses, Edema Skin: Ulcer/ Wound - left dorsal 1st intersapce, right dorsal foot, right lateral/plantar foot. No malodor, erythema, purulence, probing to bone, streaking, or other signs of infection. Skin is atrophic and hairless. Granular base with serosanguineous drainage after debridement, - - some increase in depth and surrounding maceration noted to dorsal 1st left interspace ulceration Wound Measurements and Assessment WC - Nurse 1 - General Ulcer Measurement Start: 08/13/20 09:55 Freq: Status: Active Protocol: Activity Type Activity Date Activity User E-Sign Co-Sign Detail Recorded Client Recorded Date Recorded By Document 08/20/20 10:26 [facility] [id number] 08/20/20 10:36 [facility] 08/20/20 10:26 Wound Center Nurse 1 [Ulcer Assessment] #3- r dorsal foot -Combined with other wound No -Current Size (cm) - Length 1.1 -Current Size (cm) - Width 1.5 -Current Size (cm) - Depth 0.1 -Total Square Cm 1.65 -Photo Taken No -Epithelialization None Present -Tunneling No -Undermining/Tunneling No -Circular Undermining No -Exudate Amt Small -Exudate Type Serosanguineous -Wound Margin Distinct, Outline Attached -Granulation Amt Small (1-33%) -Granulation Quality Red -Slough/Fibrin Yes -Necrosis Amt Medium (34-66%) -Necrotic Tissue Type Adherent Slough -Texture (Michelle-wound Skin Appearance) Assessed, Scarring -Moisture (Michelle-wound Skin Appearance Assessed ) -Color (Michelle-wound Skin Appearance) Assessed -Temperature (Michelle-wound Skin No Abnormality Appearance) (Pt Warm) -Tenderness on Palpation (Michelle-wound No Skin Appearance) -Ulcer Cleansing soapy water -Foul Odor after Cleansing No -Anesthetic Used 4% Lidocaine Solution 2-left dorsal foot -Combined with other wound No -Current Size (cm) - Length 0.9 -Current Size (cm) - Width 0.3 -Current Size (cm) - Depth 0.1 -Total Square Cm 0.27 -Photo Taken No -Epithelialization None Present -Tunneling No -Undermining/Tunneling No -Circular Undermining No -Exudate Amt Small -Exudate Type Serosanguineous -Wound Margin Distinct, Outline Attached -Granulation Amt Small (1-33%) -Granulation Quality [place] -Slough/Fibrin Yes -Necrosis Amt Large (67-100%) -Necrotic Tissue Type Adherent Slough -Texture (Michelle-wound Skin Appearance) Assessed -Moisture (Michelle-wound Skin Appearance Assessed, ) Maceration -Color (Michelle-wound Skin Appearance) Assessed -Temperature (Michelle-wound Skin No Abnormality Appearance) (Pt Warm) -Tenderness on Palpation (Michelle-wound No Skin Appearance) -Ulcer Cleansing soapy water -Foul Odor after Cleansing No -Anesthetic Used 4% Lidocaine Solution #1 Right lateral foot/amp site -Combined with other wound No -Current Size (cm) - Length 7.5 -Current Size (cm) - Width 4.5 -Current Size (cm) - Depth 0.1 -Total Square Cm 33.75 -Photo Taken No -Epithelialization Small 1-33% -Tunneling No -Undermining/Tunneling No -Circular Undermining No -Exudate Amt Large -Exudate Type Serosanguineous -Wound Margin Distinct, Outline Attached -Granulation Amt Large (67-100%) -Granulation Quality Red -Slough/Fibrin Yes -Necrosis Amt Small (1-33%) -Necrotic Tissue Type Adherent Slough -Texture (Michelle-wound Skin Appearance) Assessed, Scarring -Moisture (Michelle-wound Skin Appearance Assessed ) -Color (Michelle-wound Skin Appearance) Assessed -Temperature (Michelle-wound Skin No Abnormality Appearance) (Pt Warm) -Tenderness on Palpation (Michelle-wound No Skin Appearance) -Ulcer Cleansing soapy water -Foul Odor after Cleansing No -Anesthetic Used 4% Lidocaine Solution WC - Nurse 2 - General Ulcer CM Notes Start: 08/13/20 09:55 Freq: Status: Active Protocol: Activity Type Activity Date Activity User E-Sign Co-Sign Detail Recorded Client Recorded Date Recorded By Document 08/20/20 11:36 JERSON [id number] 08/20/20 11:42 JERSON 08/20/20 11:36 Wound Center Nurse 2 [Procedure/Treatment] #3- r dorsal foot -Time 11:37 -Correct Patient Yes -Correct Side, Site, Position Yes -Correct Procedure Yes -Procedure Performed Yes -Type of Procedure Debridement -Clinical Debridement Subcutaneous -Tissue Removed Subcutaneous -Post Debridement (cm) - Length 0.5 -Post Debridement (cm) - Width 0.8 -Post Debridement (cm) - Depth 0.1 -Total Square (Post) (cm) 0.40 -Area of Debridement (cm) - Length 0.5 -Area of Debridement (cm) - Width 0.8 -Total Square (Area) (cm) 0.40 -Tunneling No -Undermining/Tunneling No -Circular Undermining No -Wound/Ulcer Outcome Not Healed -Ulcer Cleansing Rinsed/ Irrigated with Saline -Foul Odor after Cleansing No -Bioengineered Tissue No -Bleeding Controlled with Pressure -Offloading Yes -Type of Offloading Surgical Shoe -Treatment Response Procedure Tolerated Well -Debridement - Subq, 1st 20sq cm No 2-left dorsal foot -Time 11:37 -Correct Patient Yes -Correct Side, Site, Position Yes -Correct Procedure Yes -Procedure Performed Yes -Type of Procedure Debridement -Clinical Debridement Subcutaneous -Tissue Removed Subcutaneous -Post Debridement (cm) - Length 0.8 -Post Debridement (cm) - Width 0.3 -Post Debridement (cm) - Depth 0.5 -Total Square (Post) (cm) 0.24 -Area of Debridement (cm) - Length 0.8 -Area of Debridement (cm) - Width 0.3 -Total Square (Area) (cm) 0.24 -Tunneling No -Undermining/Tunneling No -Circular Undermining No -Wound/Ulcer Outcome Not Healed -Ulcer Cleansing Rinsed/ Irrigated with Saline -Foul Odor after Cleansing No -Bioengineered Tissue No -Bleeding Controlled with Pressure -Offloading Yes -Type of Offloading Surgical Shoe -Treatment Response Procedure Tolerated Well -Debridement - Subq, 1st 20sq cm No #1 Right lateral foot/amp site -Time 11:40 -Correct Patient Yes -Correct Side, Site, Position Yes -Correct Procedure Yes -Procedure Performed Yes -Type of Procedure Debridement -Clinical Debridement Subcutaneous -Tissue Removed Subcutaneous -Post Debridement (cm) - Length 5 -Post Debridement (cm) - Width 5 -Post Debridement (cm) - Depth 0.5 -Total Square (Post) (cm) 25 -Area of Debridement (cm) - Length 5 -Area of Debridement (cm) - Width 5 -Total Square (Area) (cm) 25 -Tunneling No -Undermining/Tunneling No -Circular Undermining No -Wound/Ulcer Outcome Not Healed -Ulcer Cleansing Rinsed/ Irrigated with Saline -Foul Odor after Cleansing No -Bioengineered Tissue No -Bleeding Controlled with Pressure -Offloading Yes -Type of Offloading Surgical Shoe -Treatment Response Procedure Tolerated Well -Debridement - Subq, 1st 20sq cm Yes -Debridement, SubQ, ea addt'l 20sq cm 1 or part thereof [See Physician Procedure note for Specifics] Pain Scale: 0-10 Numeric [Pain] -Is Patient Pain Free? Yes WC - Nurse 3 - General Ulcer D/C NN Start: 08/13/20 09:55 Freq: Status: Active Protocol: Activity Type Activity Date Activity User E-Sign Co-Sign Detail Recorded Client Recorded Date Recorded By Document 08/20/20 12:09 [facility] [id number] 08/20/20 12:11 [facility] 08/20/20 12:09 Wound Care Nurse 3 [Wound Dressing] #3- r dorsal foot -Ulcer Cleansing Rinsed/ Irrigated with Saline -Foul Odor after Cleansing No -Primary Dressing Applied Fibracol Plus 4x4 -Primary Dressing Covered/Secured Dry Gauze & with Roll Gauze, Secured with Tape -Other Covering drsg per d romain paste up artist -Fibracol Plus 4x4 1 2-left dorsal foot -Ulcer Cleansing Rinsed/ Irrigated with Saline -Foul Odor after Cleansing No -Primary Dressing Applied Fibracol Plus 4x4 -Primary Dressing Covered/Secured Dry Gauze & with Roll Gauze, Secured with Tape -Other Covering drsg per d romain paste up artist -Fibracol Plus 4x4 0 #1 Right lateral foot/amp site -Ulcer Cleansing Rinsed/ Irrigated with Saline -Foul Odor after Cleansing No -Negative Pressure Wound Therapy Continue -Setting (mmHg) 150 -Negative Pressure is Continuous -NPWT Application Charge ($) NPWT </= 50 sq cm [Compression Applied] Right -Compression Wrap Jens Wrap [Post Procedure Tolerated] -Treatment Response Procedure Tolerated Well Pain Scale: 0-10 Numeric [Pain] -Is Patient Pain Free? Yes WC - Visit Discharge [Visit Discharge Information] -Discharge Condition Stable -Ambulatory Status Ambulatory -Transportation Private Auto [Facility Notification] -Facility Type Home Health Musculoskeletal: No Tenderness to Palpation of Joints or Extremities Neurological: - - lack of epicritic sensation Psych/Mental Status: Normal Affect, Appropriate Debridement Note Post-Debridement Measurements/Treatment - Nurse 2 - General Ulcer CM Notes Start: 08/13/20 09:55 Freq: Status: Active Protocol: Activity Type Activity Date Activity User E-Sign Co-Sign Detail Recorded Client Recorded Date Recorded By Document 08/13/20 10:24 [id number] 08/13/20 10:31 Document 08/20/20 11:36 [id number] 08/20/20 11:42 08/13/20 08/20/20 10:24 11:36 Wound Center Nurse 2 #3- r dorsal foot -Time 11:37 -Correct Patient Yes -Correct Side, Site, Position Yes -Correct Procedure Yes -Procedure Performed Yes -Type of Procedure Debridement -Clinical Debridement Subcutaneous -Tissue Removed Subcutaneous -Post Debridement (cm) - Length 0.5 -Post Debridement (cm) - Width 0.8 -Post Debridement (cm) - Depth 0.1 -Total Square (Post) (cm) 0.40 -Area of Debridement (cm) - Length 0.5 -Area of Debridement (cm) - Width 0.8 -Total Square (Area) (cm) 0.40 -Tunneling No -Undermining/Tunneling No -Circular Undermining No -Wound/Ulcer Outcome Not Healed -Ulcer Cleansing Rinsed/ Irrigated with Saline -Foul Odor after Cleansing No -Bioengineered Tissue No -Bleeding Controlled with Pressure -Offloading Yes -Type of Offloading Surgical Shoe -Treatment Response Procedure Tolerated Well -Debridement - Subq, 1st 20sq cm No 2-left dorsal foot -Time 10:29 11:37 -Correct Patient Yes Yes -Correct Side, Site, Position Yes Yes -Correct Procedure Yes Yes -Procedure Performed Yes Yes -Type of Procedure Debridement Debridement -Clinical Debridement Subcutaneous Subcutaneous -Tissue Removed Subcutaneous Subcutaneous -Post Debridement (cm) - Length 0.7 0.8 -Post Debridement (cm) - Width 0.3 0.3 -Post Debridement (cm) - Depth 0.1 0.5 -Total Square (Post) (cm) 0.21 0.24 -Area of Debridement (cm) - Length 0.7 0.8 -Area of Debridement (cm) - Width 0.3 0.3 -Total Square (Area) (cm) 0.21 0.24 -Tunneling No No -Undermining/Tunneling No No -Circular Undermining No No -Wound/Ulcer Outcome Not Healed Not Healed -Ulcer Cleansing Rinsed/ Rinsed/ Irrigated with Irrigated with Saline Saline -Foul Odor after Cleansing No No -Bioengineered Tissue No No -Bleeding Controlled with Pressure Pressure -Offloading No Yes -Type of Offloading Surgical Shoe -Treatment Response Procedure Procedure Tolerated Well Tolerated Well -Debridement - Subq, 1st 20sq cm No No #1 Right lateral foot/amp site -Time 10:29 11:40 -Correct Patient Yes Yes -Correct Side, Site, Position Yes Yes -Correct Procedure Yes Yes -Procedure Performed Yes Yes -Type of Procedure Debridement Debridement -Clinical Debridement Subcutaneous Subcutaneous -Tissue Removed Subcutaneous Subcutaneous -Post Debridement (cm) - Length 6 5 -Post Debridement (cm) - Width 5 5 -Post Debridement (cm) - Depth 0.6 0.5 -Total Square (Post) (cm) 30 25 -Area of Debridement (cm) - Length 6 5 -Area of Debridement (cm) - Width 5 5 -Total Square (Area) (cm) 30 25 -Tunneling No No -Undermining/Tunneling No No -Circular Undermining No No -Wound/Ulcer Outcome Not Healed Not Healed -Ulcer Cleansing Rinsed/ Rinsed/ Irrigated with Irrigated with Saline Saline -Foul Odor after Cleansing No No -Bioengineered Tissue No No -Bleeding Controlled with Pressure Pressure -Offloading Yes Yes -Type of Offloading Camwalker Surgical Shoe -Treatment Response Procedure Procedure Tolerated Well Tolerated Well -Debridement - Subq, 1st 20sq cm Yes Yes -Debridement, SubQ, ea addt'l 20sq cm 1 1 or part thereof Pain Scale: 0-10 Numeric Is Patient Pain Free? Yes Yes WC - Nurse 3 - General Ulcer D/C NN Start: 08/13/20 09:55 Freq: Status: Active Protocol: Activity Type Activity Date Activity User E-Sign Co-Sign Detail Recorded Client Recorded Date Recorded By Document 08/13/20 11:29 DL [id number] 08/13/20 11:30 DL Document 08/20/20 12:09 [facility] [id number] 08/20/20 12:11 [facility] 08/13/20 08/20/20 11:29 12:09 Wound Care Nurse 3 #3- r dorsal foot -Ulcer Cleansing Rinsed/ Irrigated with Saline -Foul Odor after Cleansing No -Primary Dressing Applied Fibracol Plus 4x4 -Primary Dressing Covered/Secured with Dry Gauze & Roll Gauze, Secured with Tape -Other Covering drsg per d romain paste up artist -Fibracol Plus 4x4 1 2-left dorsal foot -Ulcer Cleansing Rinsed/ Rinsed/ Irrigated with Irrigated with Saline Saline -Foul Odor after Cleansing No No -Primary Dressing Applied Fibracol Plus Fibracol Plus 4x4 4x4 -Primary Dressing Covered/Secured with Dry Gauze, Dry Gauze & Secured with Roll Gauze, Tape Secured with Tape -Other Covering drsg per d romain paste up artist -Fibracol Plus 4x4 1 0 #1 Right lateral foot/amp site -Ulcer Cleansing Wound Cleanser Rinsed/ Irrigated with Saline -Foul Odor after Cleansing No -Negative Pressure Wound Therapy Continue Continue -Setting (mmHg) 150 150 -Negative Pressure is Continuous Continuous -NPWT Application Charge ($) NPWT > 50 sq cm NPWT </= 50 sq cm Right -Compression Wrap Jens Wrap Treatment Response Procedure Procedure Tolerated Well Tolerated Well Pain Scale: 0-10 Numeric Is Patient Pain Free? Yes Yes WC - Visit Discharge Discharge Condition Stable Stable Ambulatory Status Ambulatory Ambulatory Transportation [facility] Facility Type Home Health Home Health Wound debrided: dorsal 1st interspace Laterality: Left Wound Grade/Stage: sams 1 Type of Debridement: Excisional debridement Anesthesia Used: 4% Lidocaine Solution Depth: in the subcutaneous layer Percentage of wound debrided: 100 Instrument Used: 3mm curette Tissue Removed: Tissue removed includes fibrous, devitalized, biofilm, and slough tissue Severity: Fat Layer Exposed Amount of bleeding with debridement: Mild Patient tolerated procedure well - Additional Wound Wound debrided: dorsal foot Laterality: Right Wound Grade/Stage: sams 1 Type of Debridement: Excisional debridement Anesthesia Used: 4% Lidocaine Solution Depth: in the subcutaneous layer Percentage of wound debrided: 100 Instrument Used: 5mm curette Tissue Removed: Tissue removed includes fibrous, devitalized, biofilm, and slough tissue Severity: Fat Layer Exposed Amount of bleeding with debridement: Mild Bleeding Controlled with: Pressure Patient tolerated procedure: Patient tolerated procedure well - Additional Wound Wound debrided: lateral plantar foot Laterality: Right Wound Grade/Stage: sams 3 Type of Debridement: Excisional debridement Anesthesia Used: 4% Lidocaine Solution Depth: in the subcutaneous layer Percentage of wound debrided: 100 Instrument Used: 5mm curette Tissue Removed: Tissue removed includes fibrous, devitalized, biofilm, and slough tissue Severity: Fat Layer Exposed Amount of bleeding with debridement: Mild Bleeding Controlled with: Pressure Patient tolerated procedure: Patient tolerated procedure well Assessment/Plan Active Problems (Last Updated 07/18/20 @ 08:[address] Jazzy Mitchell MD) Non-pressure chronic ulcer of other part of right foot with fat layer exposed (Acute) Non-pressure chronic ulcer of other part of left foot with fat layer exposed (Acute) Osteomyelitis of toe of right foot (Chronic) Bilateral lower extremity edema (Chronic) Type 2 diabetes mellitus (Chronic) Assessment: Left foot ulceration dorsal first interspace Sams 1. Right foot plantar lateral aspect of foot status post osteomyelitis and fourth fifth ray resection Sams grade 3. dorsal right foot ulceration sams grade 1. Uncontrolled diabetes with neuropathy. Morbid obesity Plan: Patient seen and examined. Bilateral foot wounds were sharply debrided without incident with well tolerant by patient due to neuropathy after verbal assent obtained. Patient noted to have a last A1c of 10.3. Patient noted to have positive margins from recent surgery amputation of fourth and fifth rays right foot. Verruca changes noted to ulcer biopsy of left dorsal first interspace. Patient is still taking antibiotics. Discussed with patient the importance of offloading ulcer site, good nutrition including protein vitamin C, proper blood sugar control, and proper wound care to optimize healing. Patient relates that he is walking on his foot as little as possible when he does put any pressure he has pain which has improved. He has a cam boot. And physical therapy has been working with him at home. Given recent surgery patient was given prescription for Emerson 07/30/2020. Patient did not ask for another refill this visit. Patient to continue wound VAC with tracking to dorsal foot. Patient instructed to advocate for himself if foam is placed onto skin directly again as this is likely source of new dorsal right foot ulceration. To continue for Fibracol to the left ulceration and dorsal right foot. Applied for TheraSkin for right foot ulceration. If approved this will be applied under VAC at next visit. Less depth noted today with granular base. Patient may also be a good candidate for HBO given recent osteomyelitis. Patient to follow-up in 1 week. This note was generated with [employer] dictation software. It may contain incorrect words, spelling, and punctuation that were not noted in checking the note before signing.
[2020-08-27 10:58] VITALS: BP 140/78; PULSE 101; RESP 18; TEMP 35.9; BMI 50.7
--- NOTE | 2020-08-27 11:27 | WC ---
08/27/20 [facility] approval for [employer] Auth# [id number] Approved for 5 units of [id number] and 5 units of [id number] per Rosana at [facility].
--- NOTE | 2020-08-27 11:55 | PN.PCM_ITS ---
(1) Non-pressure chronic ulcer of other part of right foot with fat layer exposed Status: Acute Code(s): L97.512 - Non-pressure chronic ulcer of other part of right foot with fat layer exposed (2) Non-pressure chronic ulcer of other part of left foot with fat layer exposed Status: Acute Code(s): L97.522 - Non-pressure chronic ulcer of other part of left foot with fat layer exposed (3) Osteomyelitis of toe of right foot Status: Chronic Code(s): M86.9 - Osteomyelitis, unspecified (4) Bilateral lower extremity edema Status: Chronic Code(s): R60.0 - Localized edema (5) Type 2 diabetes mellitus Status: Chronic Qualifiers: Diabetes mellitus complication status: with skin complications Diabetes mellitus complication detail: with foot ulcer Code(s): E11.9 - Type 2 diabetes mellitus without complications (6) Foot ulcer, left Status: Acute Code(s): L97.529 - Non-pressure chronic ulcer of other part of left foot with unspecified severity Type of Wound Date of Service: 08/27/20 Chief Complaint: Right foot plantar lateral ulceration status post fourth and fifth ray partial amputation. Left foot ulceration dorsal first interspace History of Wound: Patient is a 50-year-old male who presents to the wound care center for follow-up of hospital visit after surgical amputation of right fourth and fifth digits after osteomyelitis. Patient had removal of the fourth and fifth partial ray's by Dr. Ramos on 07/17/2020. Positive margins was noted on clearance fragments of right fourth and fifth rays. A biopsy was also obtained of left ulcer site near the first interspace dorsally which showed verrucual changes. Patient has large deficit to foot given removal of infection severity. Patient has been on a wound VAC since discharge. Patient was discharged on levofloxacin linezolid and Flagyl. Patient states that they have largely sorted out the home health care issue with the wound VAC being applied properly but is having issues with them properly washing of the lower extremities. He states that the only rinse it with saline and do not use soap. Patient was approved for application of TheraSkin today. Progress of Wound: Improving right foot ulceration with some malodor noted likely secondary to not proper cleaning of area. Stable left foot ulceration. dorsal right foot ucleration healed Subjective: Patient seen and examined resting comfortably. Patient denies any new pedal complaints. Patient denies any nausea, fever, chills, chest pain, shortness of breath, cough, streaking, purulence, vomiting. Patient relates that the home health care agency is not washing his feet properly - Physical Exam Vital Signs Temp Pulse Resp BP 96.7 F L 101 H 18 140/78 H 08/27/20 10:58 08/27/20 10:58 08/27/20 10:58 08/27/20 10:58 General: Alert, Oriented x3 HEENT: Atraumatic Abdomen: Obese Extremities: No clubbing, No cyanosis, Capillary Refill Less than 3 Seconds, No Calf Tenderness, Diminished Peripheral Pulses, Edema Skin: Ulcer/ Wound - Right lateral foot. No erythema, purulence, probing to bone, streaking, or other signs of infection. Skin is atrophic and hairless. Granular base with serosanguineous drainage after debridement. Wound is noted to have lessened in size with healthy granular base. There is some malodor noted, - - Left dorsal first interspace ulceration. No malodor, erythema, purulence, probing to bone, streaking, or other signs of infection. There is some increase in maceration with no improvement noted to site. Skin is atrophic and hairless. Granular base with serosanguineous drainage after debridement Wound Measurements and Assessment WC - Nurse 1 - General Ulcer Measurement Start: 08/13/20 09:55 Freq: Status: Active Protocol: Activity Type Activity Date Activity User E-Sign Co-Sign Detail Recorded Client Recorded Date Recorded By Document 08/27/20 10:58 [id number] 08/27/20 11:10 08/27/20 10:58 Wound Center Nurse 1 [Ulcer Assessment] #3- r dorsal foot -Combined with other wound No -Current Size (cm) - Length 0 -Current Size (cm) - Width 0 -Current Size (cm) - Depth 0 -Total Square Cm 0 -Date of Last Picture (Recall this 08/27/20 field) -Photo Taken No -Epithelialization Large 67-100% 2-left dorsal foot -Combined with other wound No -Current Size (cm) - Length 0.8 -Current Size (cm) - Width 0.2 -Current Size (cm) - Depth 0.3 -Total Square Cm 0.16 -Photo Taken No -Epithelialization Large 67-100% -Tunneling No -Undermining/Tunneling No -Circular Undermining No -Exudate Amt Small -Exudate Type Serosanguineous -Wound Margin Flat & Intact -Granulation Amt Large (67-100%) -Granulation Quality Red -Slough/Fibrin Yes -Necrosis Amt Small (1-33%) -Necrotic Tissue Type Adherent Slough -Structure Exposed N/A -Texture (Michelle-wound Skin Appearance) Assessed, Localized Edema -Moisture (Michelle-wound Skin Appearance Assessed,Dry/ ) Scaly -Color (Michelle-wound Skin Appearance) Assessed -Temperature (Michelle-wound Skin No Abnormality Appearance) (Pt Warm) -Tenderness on Palpation (Michelle-wound No Skin Appearance) -Ulcer Cleansing Wound Cleanser -Foul Odor after Cleansing No -Anesthetic Used 4% Lidocaine Solution #1 Right lateral foot/amp site -Combined with other wound No -Current Size (cm) - Length 7.6 -Current Size (cm) - Width 3.0 -Current Size (cm) - Depth 0.1 -Total Square Cm 22.80 -Photo Taken No -Epithelialization Large 67-100% -Tunneling No -Undermining/Tunneling No -Circular Undermining No -Exudate Amt Large -Exudate Type Serosanguineous -Wound Margin Flat & Intact -Granulation Amt Large (67-100%) -Granulation Quality Red -Slough/Fibrin Yes -Necrosis Amt Small (1-33%) -Necrotic Tissue Type Adherent Slough -Structure Exposed N/A -Texture (Michelle-wound Skin Appearance) Assessed, Localized Edema -Moisture (Michelle-wound Skin Appearance Assessed,Dry/ ) Scaly -Color (Michelle-wound Skin Appearance) Assessed -Temperature (Michelle-wound Skin No Abnormality Appearance) (Pt Warm) -Tenderness on Palpation (Michelle-wound No Skin Appearance) -Ulcer Cleansing Wound Cleanser -Foul Odor after Cleansing No -Anesthetic Used 4% Lidocaine Solution WC - Nurse 2 - General Ulcer CM Notes Start: 08/13/20 09:55 Freq: Status: Active Protocol: Activity Type Activity Date Activity User E-Sign Co-Sign Detail Recorded Client Recorded Date Recorded By Document 08/27/20 11:21 JERSON [id number] 08/27/20 11:39 JERSON 08/27/20 11:21 Wound Center Nurse 2 [Procedure/Treatment] 2-left dorsal foot -Time 11:22 -Correct Patient Yes -Correct Side, Site, Position Yes -Correct Procedure Yes -Procedure Performed Yes -Type of Procedure Debridement -Clinical Debridement Subcutaneous -Tissue Removed Subcutaneous -Post Debridement (cm) - Length 0.8 -Post Debridement (cm) - Width 0.3 -Post Debridement (cm) - Depth 0.4 -Total Square (Post) (cm) 0.24 -Area of Debridement (cm) - Length 0.8 -Area of Debridement (cm) - Width 0.3 -Total Square (Area) (cm) 0.24 -Tunneling No -Undermining/Tunneling No -Circular Undermining No -Wound/Ulcer Outcome Not Healed -Ulcer Cleansing Rinsed/ Irrigated with Saline -Foul Odor after Cleansing No -Bioengineered Tissue No -Bleeding Controlled with Pressure -Offloading No -Treatment Response Procedure Tolerated Well -Debridement - Subq, 1st 20sq cm Yes #1 Right lateral foot/amp site -Time 11:23 -Correct Patient Yes -Correct Side, Site, Position Yes -Correct Procedure Yes -Procedure Performed Yes -Type of Procedure Debridement -Clinical Debridement Subcutaneous -Tissue Removed Subcutaneous -Post Debridement (cm) - Length 5.5 -Post Debridement (cm) - Width 3.0 -Post Debridement (cm) - Depth 0.3 -Total Square (Post) (cm) 16.50 -Area of Debridement (cm) - Length 5.5 -Area of Debridement (cm) - Width 3.0 -Total Square (Area) (cm) 16.50 -Tunneling No -Undermining/Tunneling No -Circular Undermining No -Wound/Ulcer Outcome Not Healed -Ulcer Cleansing Rinsed/ Irrigated with Saline -Foul Odor after Cleansing No -Bioengineered Tissue Yes -Type of Bioengineered Tissue Theraskin -Expiration Date 02/25/25 -Product Lot Number [id number] -Percent Used 100 -Lot number of Saline Used [id number] -Bleeding Controlled with Pressure -Offloading Yes -Type of Offloading Camwalker -Treatment Response Procedure Tolerated Well -Debridement - Subq, 1st 20sq cm No -Apply Skin Sub - 1st 25 sq cm - Feet 1 -Theraskin (per sq cm) 39 [See Physician Procedure note for Specifics] Pain Scale: 0-10 Numeric [Pain] -Is Patient Pain Free? Yes WC - Nurse 3 - General Ulcer D/C NN Start: 08/13/20 09:55 Freq: Status: Active Protocol: Activity Type Activity Date Activity User E-Sign Co-Sign Detail Recorded Client Recorded Date Recorded By Document 08/27/20 11:42 [id number] 08/27/20 11:43 08/27/20 11:42 Wound Care Nurse 3 [Wound Dressing] 2-left dorsal foot -Ulcer Cleansing Rinsed/ Irrigated with Saline -Foul Odor after Cleansing No -Primary Dressing Applied Aquacel AG 4x4 -Primary Dressing Covered/Secured Dry Gauze & with Roll Gauze, Secured with Tape -Aquacel AG 4x4 1 #1 Right lateral foot/amp site -Ulcer Cleansing Rinsed/ Irrigated with Saline -Foul Odor after Cleansing No -Primary Dressing Covered/Secured Dry Gauze & with Roll Gauze, Secured with Tape [Compression Applied] Right -Compression Wrap Jens Wrap Pain Scale: 0-10 Numeric [Pain] -Is Patient Pain Free? Yes - Visit Discharge [Visit Discharge Information] -Discharge Condition Stable -Ambulatory Status Ambulatory -Transportation Private Auto -Accompanied by brother -Medication Reconcilliation completed Yes & provided to patient/care provider -Clinical Summary of Care Provided Yes Musculoskeletal: No Tenderness to Palpation of Joints or Extremities, - - Amputation to right partial second digit and fourth and fifth rays as well as left fifth digit Neurological: - - Lack of epicritic sensation consistent with neuropathy Psych/Mental Status: Normal Affect, Appropriate Debridement Note Post-Debridement Measurements/Treatment - Nurse 2 - General Ulcer CM Notes Start: 08/13/20 09:55 Freq: Status: Active Protocol: Activity Type Activity Date Activity User E-Sign Co-Sign Detail Recorded Client Recorded Date Recorded By Document 08/13/20 10:24 [id number] 08/13/20 10:31 Document 08/20/20 11:36 [id number] 08/20/20 11:42 Document 08/27/20 11:21 [id number] 08/27/20 11:39 08/13/20 08/20/20 08/27/20 10:24 11:36 11:21 Wound Center Nurse 2 #3- r dorsal foot -Time 11:37 -Correct Patient Yes -Correct Side, Site, Position Yes -Correct Procedure Yes -Procedure Performed Yes -Type of Procedure Debridement -Clinical Debridement Subcutaneous -Tissue Removed Subcutaneous -Post Debridement (cm) - Length 0.5 -Post Debridement (cm) - Width 0.8 -Post Debridement (cm) - Depth 0.1 -Total Square (Post) (cm) 0.40 -Area of Debridement (cm) - Length 0.5 -Area of Debridement (cm) - Width 0.8 -Total Square (Area) (cm) 0.40 -Tunneling No -Undermining/Tunneling No -Circular Undermining No -Wound/Ulcer Outcome Not Healed -Ulcer Cleansing Rinsed/ Irrigated with Saline -Foul Odor after Cleansing No -Bioengineered Tissue No -Bleeding Controlled with Pressure -Offloading Yes -Type of Offloading Surgical Shoe -Treatment Response Procedure Tolerated Well -Debridement - Subq, 1st 20sq cm No 2-left dorsal foot -Time 10: 11:37 11:22 -Correct Patient Yes Yes Yes -Correct Side, Site, Position Yes Yes Yes -Correct Procedure Yes Yes Yes -Procedure Performed Yes Yes Yes -Type of Procedure Debridement Debridement Debridement -Clinical Debridement Subcutaneous Subcutaneous Subcutaneous -Tissue Removed Subcutaneous Subcutaneous Subcutaneous -Post Debridement (cm) - Length 0.7 0.8 0.8 -Post Debridement (cm) - Width 0.3 0.3 0.3 -Post Debridement (cm) - Depth 0.1 0.5 0.4 -Total Square (Post) (cm) 0.21 0.24 0.24 -Area of Debridement (cm) - Length 0.7 0.8 0.8 -Area of Debridement (cm) - Width 0.3 0.3 0.3 -Total Square (Area) (cm) 0.21 0.24 0.24 -Tunneling No No No -Undermining/Tunneling No No No -Circular Undermining No No No -Wound/Ulcer Outcome Not Healed Not Healed Not Healed -Ulcer Cleansing Rinsed/ Rinsed/ Rinsed/ Irrigated with Irrigated with Irrigated with Saline Saline Saline -Foul Odor after Cleansing No No No -Bioengineered Tissue No No No -Bleeding Controlled with Pressure Pressure Pressure -Offloading No Yes No -Type of Offloading Surgical Shoe -Treatment Response Procedure Procedure Procedure Tolerated Well Tolerated Well Tolerated Well -Debridement - Subq, 1st 20sq cm No No Yes #1 Right lateral foot/amp site -Time 10:29 11:40 11:23 -Correct Patient Yes Yes Yes -Correct Side, Site, Position Yes Yes Yes -Correct Procedure Yes Yes Yes -Procedure Performed Yes Yes Yes -Type of Procedure Debridement Debridement Debridement -Clinical Debridement Subcutaneous Subcutaneous Subcutaneous -Tissue Removed Subcutaneous Subcutaneous Subcutaneous -Post Debridement (cm) - Length 6 5 5.5 -Post Debridement (cm) - Width 5 5 3.0 -Post Debridement (cm) - Depth 0.6 0.5 0.3 -Total Square (Post) (cm) 30 25 16.50 -Area of Debridement (cm) - Length 6 5 5.5 -Area of Debridement (cm) - Width 5 5 3.0 -Total Square (Area) (cm) 30 25 16.50 -Tunneling No No No -Undermining/Tunneling No No No -Circular Undermining No No No -Wound/Ulcer Outcome Not Healed Not Healed Not Healed -Ulcer Cleansing Rinsed/ Rinsed/ Rinsed/ Irrigated with Irrigated with Irrigated with Saline Saline Saline -Foul Odor after Cleansing No No No -Bioengineered Tissue No No Yes -Type of Bioengineered Tissue Theraskin -Expiration Date 02/25/25 -Product Lot Number [id number] -Percent Used 100 -Lot number of Saline Used [id number] -Bleeding Controlled with Pressure Pressure Pressure -Offloading Yes Yes Yes -Type of Offloading Camwalker Surgical Shoe Camwalker -Treatment Response Procedure Procedure Procedure Tolerated Well Tolerated Well Tolerated Well -Debridement - Subq, 1st 20sq cm Yes Yes No -Debridement, SubQ, ea addt'l 20sq cm 1 1 or part thereof -Apply Skin Sub - 1st 25 sq cm - Feet 1 -Theraskin (per sq cm) 39 Pain Scale: 0-10 Numeric Is Patient Pain Free? Yes Yes Yes - Nurse 3 - General Ulcer D/C NN Start: 08/13/20 09:55 Freq: Status: Active Protocol: Activity Type Activity Date Activity User E-Sign Co-Sign Detail Recorded Client Recorded Date Recorded By Document 08/13/20 11:29 DL [id number] 08/13/20 11:30 DL Document 08/20/20 12:09 [id number] [id number] 08/20/20 12:11 BM Document 08/27/20 11:42 JERSON [id number] 08/27/20 11:43 JERSON 08/13/20 08/20/2021 11:29 12:09 11:42 Wound Care Nurse 3 #3- r dorsal foot -Ulcer Cleansing Rinsed/ Irrigated with Saline -Foul Odor after Cleansing No -Primary Dressing Applied Fibracol Plus 4x4 -Primary Dressing Covered/Secured with Dry Gauze & Roll Gauze, Secured with Tape -Other Covering drsg per d romain branch operations specialist -Fibracol Plus 4x4 1 2-left dorsal foot -Ulcer Cleansing Rinsed/ Rinsed/ Rinsed/ Irrigated with Irrigated with Irrigated with Saline Saline Saline -Foul Odor after Cleansing No No No -Primary Dressing Applied Fibracol Plus Fibracol Plus Aquacel AG 4x4 4x4 4x4 -Primary Dressing Covered/Secured with Dry Gauze, Dry Gauze & Dry Gauze & Secured with Roll Gauze, Roll Gauze, Tape Secured with Secured with Tape Tape -Other Covering drsg per d romain branch operations specialist -Aquacel AG 4x4 1 -Fibracol Plus 4x4 1 0 #1 Right lateral foot/amp site -Ulcer Cleansing Wound Cleanser Rinsed/ Rinsed/ Irrigated with Irrigated with Saline Saline -Foul Odor after Cleansing No No -Negative Pressure Wound Therapy Continue Continue -Setting (mmHg) 150 150 -Negative Pressure is Continuous Continuous -Primary Dressing Covered/Secured with Dry Gauze & Roll Gauze, Secured with Tape -NPWT Application Charge ($) NPWT > 50 sq cm NPWT </= 50 sq cm Right -Compression Wrap Jens Wrap Jens Wrap Treatment Response Procedure Procedure Tolerated Well Tolerated Well Pain Scale: 0-10 Numeric Is Patient Pain Free? Yes Yes Yes WC - Visit Discharge Discharge Condition Stable Stable Stable Ambulatory Status Ambulatory Ambulatory Ambulatory Transportation Private Auto Private Auto Private Auto Accompanied by brother Medication Reconcilliation completed & Yes provided to patient/care provider Clinical Summary of Care Provided Yes Facility Type Home Health Home Health Wound debrided: Lateral foot Laterality: Right Wound Grade/Stage: Sams 3 Type of Debridement: Excisional debridement Anesthesia Used: 4% Lidocaine Solution Depth: in the subcutaneous layer Percentage of wound debrided: 100 Instrument Used: 5mm curette Tissue Removed: Tissue removed includes fibrous, devitalized, biofilm, and slough tissue Severity: Fat Layer Exposed Amount of bleeding with debridement: Mild Bleeding Controlled with: Pressure Patient tolerated procedure well - Additional Wound Wound debrided: Dorsal first interspace Laterality: Left Wound Grade/Stage: Sams 1 Type of Debridement: Excisional debridement Depth: in the subcutaneous layer Percentage of wound debrided: 100 Instrument Used: 3mm curette Tissue Removed: Tissue removed includes fibrous, devitalized, biofilm, and slough tissue Severity: Fat Layer Exposed Amount of bleeding with debridement: Mild Bleeding Controlled with: Pressure Patient tolerated procedure: Patient tolerated procedure well Assessment/Plan Active Problems (Last Updated 07/18/20 @ 08:[address] Jazzy Mitchell MD) Non-pressure chronic ulcer of other part of right foot with fat layer exposed (A cute) Non-pressure chronic ulcer of other part of left foot with fat layer exposed (Acute) Foot ulcer, left (Acute) Osteomyelitis of toe of right foot (Chronic) Bilateral lower extremity edema (Chronic) Type 2 diabetes mellitus (Chronic) Assessment: Left foot ulceration dorsal first interspace Sams 1. Right foot plantar lateral aspect of foot status post osteomyelitis and fourth fifth ray resection Sams grade 3. dorsal right foot ulceration healed. Uncontrolled diabetes with neuropathy. Morbid obesity Plan: Patient seen and examined. Bilateral foot wounds were sharply debrided without incident with well tolerant by patient due to neuropathy after verbal assent obtained. Patient noted to have a last A1c of 10.3 patient relates re cent blood sugars have been in the low 100s. Patient noted to have positive margins from recent surgery amputation of fourth and fifth rays right foot. Verruca changes noted to ulcer biopsy of left dorsal first interspace. Patient is still taking antibiotics. Discussed with patient the importance of offloading ulcer site, good nutrition including protein vitamin C, proper blood sugar control, and proper wound care to optimize healing. Patient relates that he is walking on his foot as little as possible when he does put any pressure he has pain which has improved. He has a cam boot. Patient was approved for TheraSkin application today. Decision was made not to place VAC over as the malodor noted to the right lower extremity was severe and patient may benefit from more frequent washing of the limb and allowing break from the VAC. May resume VAC at future date. Patient instructed to advocate for himself if foam is placed onto skin directly again or if leg is not being properly cleaned. Patient states that when home health care showed up he had soap base and water and washcloth already to go but home health care nurse refused to utilize and only rinsed the leg with saline. To use Aquacel silver to the left ulceration. TheraSkin graft application #1 was applied to right foot after sharp debridement which was well tolerated and verbal consent by the patient for the procedure and application. This was secured with wound veil and steri strips. 4x4, kerlix jens were then applied. Less depth noted today with granular base to right foot ulcer. Patient to follow-up in 1 week. This note was generated with [employer] dictation software. It may contain incorrect words, spelling, and punctuation that were not noted in checking the note before signing.
[2020-09-03 09:18] VITALS: BP 142/74; PULSE 104; RESP 17; BMI 50.7
--- NOTE | 2020-09-03 23:36 | PCM.WC.PN ---
(1) Non-pressure chronic ulcer of other part of right foot with fat layer exposed Status: Acute Code(s): L97.512 - Non-pressure chronic ulcer of other part of right foot with fat layer exposed (2) Non-pressure chronic ulcer of other part of left foot with fat layer exposed Status: Chronic Code(s): L97.522 - Non-pressure chronic ulcer of other part of left foot with fat layer exposed (3) Osteomyelitis of toe of right foot Status: Chronic Code(s): M86.9 - Osteomyelitis, unspecified (4) Bilateral lower extremity edema Status: Chronic Code(s): R60.0 - Localized edema (5) Type 2 diabetes mellitus Status: Chronic Qualifiers: Diabetes mellitus complication status: with skin complications Diabetes mellitus complication detail: with foot ulcer Code(s): E11.9 - Type 2 diabetes mellitus without complications (6) Foot ulcer, left Status: Chronic Code(s): L97.529 - Non-pressure chronic ulcer of other part of left foot with unspecified severity Type of Wound Date of Service: 09/03/20 Chief Complaint: Right foot plantar lateral ulceration status post fourth and fifth ray partial amputation. Left foot ulceration dorsal first interspace History of Wound: Patient is a 50-year-old male who presents to the wound care center for follow-up of hospital visit after surgical amputation of right fourth and fifth digits after osteomyelitis. Patient had removal of the fourth and fifth partial ray's by Dr. Ramos on 07/17/2020. Positive margins was noted on clearance fragments of right fourth and fifth rays. A biopsy was also obtained of left ulcer site near the first interspace dorsally which showed verrucual changes. Patient has large deficit to foot given removal of infection severity. Patient was on a wound VAC since discharge. Patient was discharged on levofloxacin linezolid and Flagyl. Patient states that they have largely sorted out the home health care issue with the wound VAC being applied properly but is having issues with them properly washing of the lower extremities. He states that the only rinse it with saline and do not use soap. Patient was approved for application of TheraSkin. Progress of Wound: right foot ulceration with intact wound veil noted. Stable left foot ulceration. dorsal right foot ucleration healed Subjective: Patient seen and examined resting comfortably. Patient denies any new pedal complaints. Patient denies any nausea, fever, chills, chest pain, shortness of breath, cough, streaking, purulence, vomiting. - Physical Exam Vital Signs Temp Pulse Resp BP 96.7 F L 104 H 17 142/74 H 08/27/20 10:58 09/03/20 09:18 09/03/20 09:18 09/03/20 09:18 General: Alert, Oriented x3 HEENT: Atraumatic Abdomen: Obese Extremities: No clubbing, No cyanosis, Capillary Refill Less than 3 Seconds, No Calf Tenderness, Diminished Peripheral Pulses, Edema Skin: Ulcer/ Wound - right lateral foot. at sight af 4/5 ray amputation. Wound veil and steri strips intact with underlying graft, left inplace. Left dorsal 1st interspace. No malodor, erythema, purulence, probing to bone, streaking, or other signs of infection. Skin is atrophic and hairless. Granular base Wound Measurements and Assessment WC - Nurse 1 - General Ulcer Measurement Start: 08/13/20 09:55 Freq: Status: Active Protocol: Activity Type Activity Date Activity User E-Sign Co-Sign Detail Recorded Client Recorded Date Recorded By Document 09/03/20 09:18 MS [id number] 09/03/20 09:26 MS 09/03/20 09:18 Wound Center Nurse 1 [Ulcer Assessment] 2-left dorsal foot -Current Size (cm) - Length 1 -Current Size (cm) - Width 0.3 -Current Size (cm) - Depth 0.1 -Total Square Cm 0.3 -Exudate Amt Small -Wound Margin Distinct, Outline Attached -Slough/Fibrin No -Moisture (Michelle-wound Skin Appearance Dry/Scaly ) -Color (Michelle-wound Skin Appearance) Hemosiderin Staining -Temperature (Michelle-wound Skin No Abnormality Appearance) (Pt Warm) -Tenderness on Palpation (Michelle-wound No Skin Appearance) -Ulcer Cleansing soap and water -Foul Odor after Cleansing No -Anesthetic Used 4% Lidocaine Solution WC - Nurse 2 - General Ulcer CM Notes Start: 08/13/20 09:55 Freq: Status: Active Protocol: Activity Type Activity Date Activity User E-Sign Co-Sign Detail Recorded Client Recorded Date Recorded By Document 09/03/20 09:47 [id number] 09/03/20 09:53 JF 09/03/20 09:47 Wound Center Nurse 2 [Procedure/Treatment] -Time 09:48 -Correct Patient Yes -Correct Side, Site, Position Yes -Correct Procedure Yes -Procedure Performed Yes -Type of Procedure Debridement -Clinical Debridement Subcutaneous -Tissue Removed Subcutaneous -Post Debridement (cm) - Length 0.8 -Post Debridement (cm) - Width 0.3 -Post Debridement (cm) - Depth 0.3 -Total Square (Post) (cm) 0.24 -Area of Debridement (cm) - Length 0.8 -Area of Debridement (cm) - Width 0.3 -Total Square (Area) (cm) 0.24 -Tunneling No -Undermining/Tunneling No -Circular Undermining No -Wound/Ulcer Outcome Not Healed -Ulcer Cleansing Rinsed/ Irrigated with Saline -Foul Odor after Cleansing No -Bioengineered Tissue No -Bleeding Controlled with Pressure -Offloading No -Treatment Response Procedure Tolerated Well -Debridement - Subq, 1st 20sq cm Yes #1 Right lateral foot/amp site -Correct Patient No -Correct Side, Site, Position No -Correct Procedure No -Procedure Performed No -Wound/Ulcer Outcome Not Healed [See Physician Procedure note for Specifics] Pain Scale: 0-10 Numeric [Pain] -Is Patient Pain Free? Yes - Nurse 3 - General Ulcer D/C NN Start: 08/13/20 09:55 Freq: Status: Active Protocol: Activity Type Activity Date Activity User E-Sign Co-Sign Detail Recorded Client Recorded Date Recorded By Document 09/03/20 10:06 MS [id number] 09/03/20 10:08 MS 09/03/20 10:06 Wound Care Nurse 3 [Wound Dressing] 2-left dorsal foot -Ulcer Cleansing Rinsed/ Irrigated with Saline -Foul Odor after Cleansing No -Primary Dressing Applied Aquacel AG 4x4 -Primary Dressing Covered/Secured Dry Gauze, with Secured with Tape -Aquacel AG 4x4 1 #1 Right lateral foot/amp site -Other Dressing abd [Compression Applied] Right -Other jens Pain Scale: 0-10 Numeric [Pain] -Is Patient Pain Free? Yes - Visit Discharge [Visit Discharge Information] -Discharge Condition Stable -Ambulatory Status Ambulatory Musculoskeletal: No Tenderness to Palpation of Joints or Extremities, Muscle Wasting Neurological: - - lack of epicritic sensation consistent with neuropathy Psych/Mental Status: Normal Affect, Appropriate Debridement Note Post-Debridement Measurements/Treatment - Nurse 2 - General Ulcer CM Notes Start: 08/13/20 09:55 Freq: Status: Active Protocol: Activity Type Activity Date Activity User E-Sign Co-Sign Detail Recorded Client Recorded Date Recorded By Document 08/13/20 10:24 [id number] 08/13/20 10:31 Document 08/20/20 11:36 [id number] 08/20/20 11:42 Document 08/27/20 11:21 [id number] 08/27/20 11:39 Document 09/03/20 09:47 [id number] 09/03/20 09:53 08/13/20 08/20/20 08/27/20 10:24 11:36 11:21 Wound Center Nurse 2 #3- r dorsal foot -Time 11:37 -Correct Patient Yes -Correct Side, Site, Position Yes -Correct Procedure Yes -Procedure Performed Yes -Type of Procedure Debridement -Clinical Debridement Subcutaneous -Tissue Removed Subcutaneous -Post Debridement (cm) - Length 0.5 -Post Debridement (cm) - Width 0.8 -Post Debridement (cm) - Depth 0.1 -Total Square (Post) (cm) 0.40 -Area of Debridement (cm) - Length 0.5 -Area of Debridement (cm) - Width 0.8 -Total Square (Area) (cm) 0.40 -Tunneling No -Undermining/Tunneling No -Circular Undermining No -Wound/Ulcer Outcome Not Healed -Ulcer Cleansing Rinsed/ Irrigated with Saline -Foul Odor after Cleansing No -Bioengineered Tissue No -Bleeding Controlled with Pressure -Offloading Yes -Type of Offloading Surgical Shoe -Treatment Response Procedure Tolerated Well -Debridement - Subq, 1st 20sq cm No 2-left dorsal foot -Time 10:29 11:37 11:22 -Correct Patient Yes Yes Yes -Correct Side, Site, Position Yes Yes Yes -Correct Procedure Yes Yes Yes -Procedure Performed Yes Yes Yes -Type of Procedure Debridement Debridement Debridement -Clinical Debridement Subcutaneous Subcutaneous Subcutaneous -Tissue Removed Subcutaneous Subcutaneous Subcutaneous -Post Debridement (cm) - Length 0.7 0.8 0.8 -Post Debridement (cm) - Width 0.3 0.3 0.3 -Post Debridement (cm) - Depth 0.1 0.5 0.4 -Total Square (Post) (cm) 0.21 0.24 0.24 -Area of Debridement (cm) - Length 0.7 0.8 0.8 -Area of Debridement (cm) - Width 0.3 0.3 0.3 -Total Square (Area) (cm) 0.21 0.24 0.24 -Tunneling No No No -Undermining/Tunneling No No No -Circular Undermining No No No -Wound/Ulcer Outcome Not Healed Not Healed Not Healed -Ulcer Cleansing Rinsed/ Rinsed/ Rinsed/ Irrigated with Irrigated with Irrigated with Saline Saline Saline -Foul Odor after Cleansing No No No -Bioengineered Tissue No No No -Bleeding Controlled with Pressure Pressure Pressure -Offloading No Yes No -Type of Offloading Surgical Shoe -Treatment Response Procedure Procedure Procedure Tolerated Well Tolerated Well Tolerated Well -Debridement - Subq, 1st 20sq cm No No Yes #1 Right lateral foot/amp site -Time 10:29 11:40 11:23 -Correct Patient Yes Yes Yes -Correct Side, Site, Position Yes Yes Yes -Correct Procedure Yes Yes Yes -Procedure Performed Yes Yes Yes -Type of Procedure Debridement Debridement Debridement -Clinical Debridement Subcutaneous Subcutaneous Subcutaneous -Tissue Removed Subcutaneous Subcutaneous Subcutaneous -Post Debridement (cm) - Length 6 5 5.5 -Post Debridement (cm) - Width 5 5 3.0 -Post Debridement (cm) - Depth 0.6 0.5 0.3 -Total Square (Post) (cm) 30 25 16.50 -Area of Debridement (cm) - Length 6 5 5.5 -Area of Debridement (cm) - Width 5 5 3.0 -Total Square (Area) (cm) 30 25 16.50 -Tunneling No No No -Undermining/Tunneling No No No -Circular Undermining No No No -Wound/Ulcer Outcome Not Healed Not Healed Not Healed -Ulcer Cleansing Rinsed/ Rinsed/ Rinsed/ Irrigated with Irrigated with Irrigated with Saline Saline Saline -Foul Odor after Cleansing No No No -Bioengineered Tissue No No Yes -Type of Bioengineered Tissue Theraskin -Expiration Date 02/25/25 -Product Lot Number [id number] -Percent Used 100 -Lot number of Saline Used [id number] -Bleeding Controlled with Pressure Pressure Pressure -Offloading Yes Yes Yes -Type of Offloading Camwalker Surgical Shoe Camwalker -Treatment Response Procedure Procedure Procedure Tolerated Well Tolerated Well Tolerated Well -Debridement - Subq, 1st 20sq cm Yes Yes No -Debridement, SubQ, ea addt'l 20sq cm 1 1 or part thereof -Apply Skin Sub - 1st 25 sq cm - Feet 1 -Theraskin (per sq cm) 39 Pain Scale: 0-10 Numeric Is Patient Pain Free? Yes Yes Yes 09/03/20 09:47 Wound Center Nurse 2 #3- r dorsal foot -Time -Correct Patient -Correct Side, Site, Position -Correct Procedure -Procedure Performed -Type of Procedure -Clinical Debridement -Tissue Removed -Post Debridement (cm) - Length -Post Debridement (cm) - Width -Post Debridement (cm) - Depth -Total Square (Post) (cm) -Area of Debridement (cm) - Length -Area of Debridement (cm) - Width -Total Square (Area) (cm) -Tunneling -Undermining/Tunneling -Circular Undermining -Wound/Ulcer Outcome -Ulcer Cleansing -Foul Odor after Cleansing -Bioengineered Tissue -Bleeding Controlled with -Offloading -Type of Offloading -Treatment Response -Debridement - Subq, 1st 20sq cm 2-left dorsal foot -Time 09:48 -Correct Patient Yes -Correct Side, Site, Position Yes -Correct Procedure Yes -Procedure Performed Yes -Type of Procedure Debridement -Clinical Debridement Subcutaneous -Tissue Removed Subcutaneous -Post Debridement (cm) - Length 0.8 -Post Debridement (cm) - Width 0.3 -Post Debridement (cm) - Depth 0.3 -Total Square (Post) (cm) 0.24 -Area of Debridement (cm) - Length 0.8 -Area of Debridement (cm) - Width 0.3 -Total Square (Area) (cm) 0.24 -Tunneling No -Undermining/Tunneling No -Circular Undermining No -Wound/Ulcer Outcome Not Healed -Ulcer Cleansing Rinsed/ Irrigated with Saline -Foul Odor after Cleansing No -Bioengineered Tissue No -Bleeding Controlled with Pressure -Offloading No -Type of Offloading -Treatment Response Procedure Tolerated Well -Debridement - Subq, 1st 20sq cm Yes #1 Right lateral foot/amp site -Time -Correct Patient No -Correct Side, Site, Position No -Correct Procedure No -Procedure Performed No -Type of Procedure -Clinical Debridement -Tissue Removed -Post Debridement (cm) - Length -Post Debridement (cm) - Width -Post Debridement (cm) - Depth -Total Square (Post) (cm) -Area of Debridement (cm) - Length -Area of Debridement (cm) - Width -Total Square (Area) (cm) -Tunneling -Undermining/Tunneling -Circular Undermining -Wound/Ulcer Outcome Not Healed -Ulcer Cleansing -Foul Odor after Cleansing -Bioengineered Tissue -Type of Bioengineered Tissue -Expiration Date -Product Lot Number -Percent Used -Lot number of Saline Used -Bleeding Controlled with -Offloading -Type of Offloading -Treatment Response -Debridement - Subq, 1st 20sq cm -Debridement, SubQ, ea addt'l 20sq cm or part thereof -Apply Skin Sub - 1st 25 sq cm - Feet -Theraskin (per sq cm) Pain Scale: 0-10 Numeric Is Patient Pain Free? Yes WC - Nurse 3 - General Ulcer D/C NN Start: 08/13/20 09:55 Freq: Status: Active Protocol: Activity Type Activity Date Activity User E-Sign Co-Sign Detail Recorded Client Recorded Date Recorded By Document 08/13/20 11:29 DL [id number] 08/13/20 11:30 DL Document 08/20/20 12:09 BMF [id number] 08/20/20 12:11 BMF Document 08/27/20 11:42 JF [id number] 08/27/20 11:43 JF Document 09/03/20 10:06 MS [id number] 09/03/20 10:08 MS 08/13/20 08/20/20 08/27/20 11:29 12:09 11:42 Wound Care Nurse 3 #3- r dorsal foot -Ulcer Cleansing Rinsed/ Irrigated with Saline -Foul Odor after Cleansing No -Primary Dressing Applied Fibracol Plus 4x4 -Primary Dressing Covered/Secured with Dry Gauze & Roll Gauze, Secured with Tape -Other Covering drsg per d romain stitch bonding machine tender helper -Fibracol Plus 4x4 1 2-left dorsal foot -Ulcer Cleansing Rinsed/ Rinsed/ Rinsed/ Irrigated with Irrigated with Irrigated with Saline Saline Saline -Foul Odor after Cleansing No No No -Primary Dressing Applied Fibracol Plus Fibracol Plus Aquacel AG 4x4 4x4 4x4 -Primary Dressing Covered/Secured with Dry Gauze, Dry Gauze & Dry Gauze & Secured with Roll Gauze, Roll Gauze, Tape Secured with Secured with Tape Tape -Other Covering drsg per d romain stitch bonding machine tender helper -Aquacel AG 4x4 1 -Fibracol Plus 4x4 1 0 #1 Right lateral foot/amp site -Ulcer Cleansing Wound Cleanser Rinsed/ Rinsed/ Irrigated with Irrigated with Saline Saline -Foul Odor after Cleansing No No -Negative Pressure Wound Therapy Continue Continue -Setting (mmHg) 150 150 -Negative Pressure is Continuous Continuous -Other Dressing -Primary Dressing Covered/Secured with Dry Gauze & Roll Gauze, Secured with Tape -NPWT Application Charge ($) NPWT > 50 sq cm NPWT </= 50 sq cm Right -Compression Wrap Jens Wrap Jens Wrap -Other Treatment Response Procedure Procedure Tolerated Well Tolerated Well Pain Scale: 0-10 Numeric Is Patient Pain Free? Yes Yes Yes WC - Visit Discharge Discharge Condition Stable Stable Stable Ambulatory Status Ambulatory Ambulatory Ambulatory Transportation Private Auto Private Auto Private Auto Accompanied by brother Medication Reconcilliation completed & Yes provided to patient/care provider Clinical Summary of Care Provided Yes Facility Type [facility] 09/03/20 10:06 Wound Care Nurse 3 #3- r dorsal foot -Ulcer Cleansing -Foul Odor after Cleansing -Primary Dressing Applied -Primary Dressing Covered/Secured with -Other Covering -Fibracol Plus 4x4 2-left dorsal foot -Ulcer Cleansing Rinsed/ Irrigated with Saline -Foul Odor after Cleansing No -Primary Dressing Applied Aquacel AG 4x4 -Primary Dressing Covered/Secured with Dry Gauze, Secured with Tape -Other Covering -Aquacel AG 4x4 1 -Fibracol Plus 4x4 #1 Right lateral foot/amp site -Ulcer Cleansing -Foul Odor after Cleansing -Negative Pressure Wound Therapy -Setting (mmHg) -Negative Pressure is -Other Dressing abd -Primary Dressing Covered/Secured with -NPWT Application Charge ($) Right -Compression Wrap -Other jens Treatment Response Pain Scale: 0-10 Numeric Is Patient Pain Free? Yes WC - Visit Discharge Discharge Condition Stable Ambulatory Status Ambulatory Transportation Accompanied by Medication Reconcilliation completed & provided to patient/care provider Clinical Summary of Care Provided Facility Type Wound debrided: dorsal 1st interspace Laterality: Left Wound Grade/Stage: sams 1 Type of Debridement: Excisional debridement Anesthesia Used: 4% Lidocaine Solution Depth: in the subcutaneous layer Percentage of wound debrided: 100 Instrument Used: 3mm curette Tissue Removed: Tissue removed includes fibrous, devitalized, biofilm, and slough tissue Severity: Fat Layer Exposed Amount of bleeding with debridement: Mild Bleeding Controlled with: Pressure Patient tolerated procedure well No debridement was completed today - of right lateral foot ulcer due to graft incorporation Assessment/Plan Active Problems (Last Reviewed 09/04/20 @ 09:28 by Renetta Bradley) Non-pressure chronic ulcer of other part of right foot with fat layer exposed (Acute) Non-pressure chronic ulcer of other part of left foot with fat layer exposed (Chronic) Foot ulcer, left (Chronic) Osteomyelitis of toe of right foot (Chronic) Bilateral lower extremity edema (Chronic) Type 2 diabetes mellitus (Chronic) Assessment: Left foot ulceration dorsal first interspace Sams 1. Right foot plantar lateral aspect of foot status post osteomyelitis and fourth fifth ray resection Sams grade 3. dorsal right foot ulceration healed. Uncontrolled diabetes with neuropathy. Morbid obesity Plan: Patient seen and examined. Left foot wounds were sharply debrided without incident with well tolerant by patient due to neuropathy after verbal assent obtained. Patient noted to have a last A1c of 10.3 patient relates recent blood sugars have been in the low 100s. Patient noted to have positive margins from recent surgery amputation of fourth and fifth rays right foot. Verruca changes noted to ulcer biopsy of left dorsal first interspace. Patient is still taking antibiotics. Discussed with patient the importance of offloading ulcer site, good nutrition including protein vitamin C, proper blood sugar control, and proper wound care to optimize healing. Patient relates that he is walking on his foot as little as possible when he does put any pressure he has pain which has improved. He has a cam boot. Patient was approved for TheraSkin application today. Decision was made not to place VAC over as the malodor noted to the right lower extremity was severe and patient may benefit from more frequent washing of the limb and allowing break from the VAC. May resume VAC at future date. Patient instructed to advocate for himself if foam is placed onto skin directly again or if leg is not being properly cleaned. To use Aquacel silver to the left ulceration. TheraSkin graft application #[address] under steri strips and wound veil. Less depth noted today with granular base to left foot ulcer. Patient to follow-up in 1 week. This note was generated with Dragon dictation software. It may contain incorrect words, spelling, and punctuation that were not noted in checking the note before signing.
== END 2020-09-08 23:59 ==
LOC: WC 09:45
PROVIDERS: PCP Internal Medicine; Referring Provider Podiatrist; Visit Provider Podiatrist Foot & Ankle Surgery
DX: E11.621 Type 2 diabetes mellitus with foot ulcer (principal); L97.512 Non-pressure chronic ulcer of other part of right foot with fat layer exposed; L97.522 Non-pressure chronic ulcer of other part of left foot with fat layer exposed; R60.0 Localized edema; M86.9 Osteomyelitis, unspecified; E66.01 Morbid (severe) obesity due to excess calories; E11.40 Type 2 diabetes mellitus with diabetic neuropathy, unspecified; Z89.421 Acquired absence of other right toe(s)
CPT/HCPCS: 11042; 11045; 15275; 97605; 97606; Q4121

== ENCOUNTER 2020-10-08 08:00 | Outpatient (RCR) | payer MEDICAID, SELFPAY ==
[2020-09-04 09:31] VITALS: BMI 47.7
[2020-09-09 00:33] VITALS: BP 142/74; PULSE 104; RESP 17; TEMP 35.9
[2020-09-10 10:55] VITALS: BP 132/82; PULSE 101; RESP 22; TEMP 36.7; BMI 47.7
--- NOTE | 2020-09-11 13:31 | PN.PCM_ITS ---
(1) Obese Status: Acute Code(s): E66.9 - Obesity, unspecified (2) Non-pressure chronic ulcer of other part of right foot with fat layer exposed Status: Chronic Code(s): L97.512 - Non-pressure chronic ulcer of other part of right foot with fat layer exposed (3) Non-pressure chronic ulcer of other part of left foot with fat layer exposed Status: Chronic Code(s): L97.522 - Non-pressure chronic ulcer of other part of left foot with fat layer exposed (4) Osteomyelitis of toe of right foot Status: Resolved Code(s): M86.9 - Osteomyelitis, unspecified (5) KRYSTAL (obstructive sleep apnea) Status: Chronic Code(s): G47.33 - Obstructive sleep apnea (adult) (pediatric) (6) Bilateral lower extremity edema Status: Chronic Code(s): R60.0 - Localized edema (7) Type 2 diabetes mellitus Status: Chronic Qualifiers: Diabetes mellitus complication status: with neurologic complications Diabetes mellitus complication detail: with polyneuropathy Code(s): E11.9 - Type 2 diabetes mellitus without complications Type of Wound Date of Service: 09/10/20 Chief Complaint: Right foot plantar lateral ulceration status post fourth and fifth ray partial amputation. Left foot ulceration dorsal first interspace History of Wound: Patient is a 50-year-old male who presents to the wound care center for follow-up of hospital visit after surgical amputation of right fourth and fifth digits after osteomyelitis. Patient had removal of the fourth and fifth partial ray's by Dr. Ramos on 07/17/2020. Positive margins was noted on clearance fragments of right fourth and fifth rays. A biopsy was also obtained of left ulcer site near the first interspace dorsally which showed verrucual changes. Patient has large deficit to foot given removal of infection severity. Patient was on a wound VAC since discharge. Patient was discharged on levofloxacin linezolid and Flagyl. Patient states that they have largely sorted out the home health care issue with the wound VAC being applied properly but is having issues with them properly washing of the lower extremities. He states that the only rinse it with saline and do not use soap. Patient was approved for application of TheraSkin. Progress of Wound: right foot ulceration improved. Stable left foot ulceration. dorsal right foot ucleration healed. new plantar left foot ulceration Subjective: Patient seen and examined resting comfortably. Patient denies any new pedal complaints. Patient denies any nausea, fever, chills, chest pain, shortness of breath, cough, streaking, purulence, vomiting. - Physical Exam Vital Signs Temp Pulse Resp BP 98.1 F 101 H 22 H 132/82 H 09/10/20 10:55 09/10/20 10:55 09/10/20 10:55 09/10/20 10:55 General: Alert, Oriented x3 HEENT: Atraumatic Abdomen: Obese Extremities: No clubbing, No cyanosis, Capillary Refill Less than 3 Seconds, No Calf Tenderness, Diminished Peripheral Pulses, Edema Skin: Ulcer/ Wound - lateral right foot and dorsal left interspace. Granular base, no signs of infection, no erythema or edema, doesn't probe to bone, serosanginous drainage, no malodor, - - plantar 1st metatarsal new ulceration. Into sub q, callus cap, no malodor, no probing, serosanginous drainage, gruanular base Wound Measurements and Assessment WC - Nurse 1 - General Ulcer Measurement Start: 09/10/20 10:55 Freq: Status: Active Protocol: Activity Type Activity Date Activity User E-Sign Co-Sign Detail Recorded Client Recorded Date Recorded By Document 09/10/20 10:55 DL [id number] 09/10/20 11:10 DL 09/10/20 10:55 Wound Center Nurse 1 [Ulcer Assessment] 2-left dorsal foot -Current Size (cm) - Length 0.7 -Current Size (cm) - Width 0.2 -Current Size (cm) - Depth 0.1 -Total Square Cm 0.14 -Photo Taken No -Exudate Amt None Present -Wound Margin Flat & Intact -Granulation Amt Small (1-33%) -Granulation Quality Red -Necrosis Amt Small (1-33%) -Necrotic Tissue Type Adherent Slough -Structure Exposed N/A -Texture (Michelle-wound Skin Appearance) Scarring -Moisture (Michelle-wound Skin Appearance Dry/Scaly ) -Color (Michelle-wound Skin Appearance) Hemosiderin Staining -Temperature (Michelle-wound Skin No Abnormality Appearance) (Pt Warm) -Tenderness on Palpation (Michelle-wound No Skin Appearance) -Ulcer Cleansing Wound Cleanser -Foul Odor after Cleansing No -Anesthetic Used 4% Lidocaine Solution #1 Right lateral foot/amp site -Current Size (cm) - Length 4 -Current Size (cm) - Width 1.5 -Current Size (cm) - Depth 0.1 -Total Square Cm 6.0 -Photo Taken No -Exudate Amt Medium -Exudate Type Serosanguineous -Wound Margin Thickened -Granulation Amt Medium (34-66%) -Granulation Quality Red -Necrosis Amt Medium (34-66%) -Necrotic Tissue Type Adherent Slough -Structure Exposed N/A -Texture (Michelle-wound Skin Appearance) Scarring -Moisture (Michelle-wound Skin Appearance Dry/Scaly ) -Color (Michelle-wound Skin Appearance) Hemosiderin Staining -Temperature (Michelle-wound Skin No Abnormality Appearance) (Pt Warm) -Tenderness on Palpation (Michelle-wound No Skin Appearance) -Ulcer Cleansing Wound Cleanser -Foul Odor after Cleansing No -Anesthetic Used 4% Lidocaine Solution [Edema Assessment] -Right Calf (cm) 47.5 -Right Ankle (cm) 29 WC - Nurse 2 - General Ulcer CM Notes Start: 09/10/20 10:55 Freq: Status: Active Protocol: Activity Type Activity Date Activity User E-Sign Co-Sign Detail Recorded Client Recorded Date Recorded By Document 09/10/20 11:43 JERSON [id number] 09/10/20 12:01 JERSON 09/10/20 11:43 Wound Center Nurse 2 [Procedure/Treatment] 3-left plantar foot -Time 12:01 -Correct Patient Yes -Correct Side, Site, Position Yes -Correct Procedure Yes -Procedure Performed Yes -Type of Procedure Debridement -Clinical Debridement Subcutaneous -Tissue Removed Subcutaneous -Post Debridement (cm) - Length 0.5 -Post Debridement (cm) - Width 0.5 -Post Debridement (cm) - Depth 0.5 -Total Square (Post) (cm) 0.25 -Area of Debridement (cm) - Length 0.5 -Area of Debridement (cm) - Width 0.5 -Total Square (Area) (cm) 0.25 -Tunneling No -Undermining/Tunneling No -Circular Undermining No -Wound/Ulcer Outcome Not Healed -Ulcer Cleansing Rinsed/ Irrigated with Saline -Foul Odor after Cleansing No -Bioengineered Tissue No -Bleeding Controlled with Pressure -Offloading No -Treatment Response Procedure Tolerated Well -Debridement - Subq, 1st 20sq cm No 2-left dorsal foot -Time 11:47 -Correct Patient Yes -Correct Side, Site, Position Yes -Correct Procedure Yes -Procedure Performed Yes -Type of Procedure Debridement -Clinical Debridement Subcutaneous -Tissue Removed Subcutaneous -Post Debridement (cm) - Length 0.8 -Post Debridement (cm) - Width 0.2 -Post Debridement (cm) - Depth 0.2 -Total Square (Post) (cm) 0.16 -Area of Debridement (cm) - Length 0.8 -Area of Debridement (cm) - Width 0.2 -Total Square (Area) (cm) 0.16 -Tunneling No -Undermining/Tunneling No -Circular Undermining No -Wound/Ulcer Outcome Not Healed -Ulcer Cleansing Rinsed/ Irrigated with Saline -Foul Odor after Cleansing No -Bioengineered Tissue No -Bleeding Controlled with Pressure -Offloading No -Treatment Response Procedure Tolerated Well -Debridement - Subq, 1st 20sq cm Yes #1 Right lateral foot/amp site -Time 11:43 -Correct Patient Yes -Correct Side, Site, Position Yes -Correct Procedure Yes -Procedure Performed Yes -Type of Procedure Debridement -Clinical Debridement Subcutaneous -Tissue Removed Subcutaneous -Post Debridement (cm) - Length 7 -Post Debridement (cm) - Width 2 -Post Debridement (cm) - Depth 0.2 -Total Square (Post) (cm) 14 -Area of Debridement (cm) - Length 7 -Area of Debridement (cm) - Width 2 -Total Square (Area) (cm) 14 -Tunneling No -Undermining/Tunneling No -Circular Undermining No -Wound/Ulcer Outcome Not Healed -Ulcer Cleansing Rinsed/ Irrigated with Saline -Foul Odor after Cleansing No -Bioengineered Tissue Yes -Type of Bioengineered Tissue Theraskin -Expiration Date 02/25/25 -Product Lot Number [id number] -Percent Used 100 -Lot number of Saline Used [id number] -Bleeding Controlled with Pressure -Offloading Yes -Type of Offloading Camwalker -Treatment Response Procedure Tolerated Well -Debridement - Subq, 1st 20sq cm No -Apply Skin Sub - 1st 25 sq cm - Legs 1 -Theraskin (per sq cm) 39 [See Physician Procedure note for Specifics] Pain Scale: 0-10 Numeric [Pain] -Is Patient Pain Free? Yes WC - Nurse 3 - General Ulcer D/C NN Start: 09/10/20 10:55 Freq: Status: Active Protocol: Activity Type Activity Date Activity User E-Sign Co-Sign Detail Recorded Client Recorded Date Recorded By Document 09/10/20 12:16 GULSHAN [id number] 09/10/20 12:18 DL 09/10/20 12:16 Wound Care Nurse 3 [Wound Dressing] 3-left plantar foot -Foul Odor after Cleansing No -Other Dressing theraskin -Primary Dressing Covered/Secured Dry Gauze & with Roll Gauze, Secured with Tape 2-left dorsal foot -Foul Odor after Cleansing No -Other Dressing Theraskin -Primary Dressing Covered/Secured Dry Gauze & with Roll Gauze, Secured with Tape #1 Right lateral foot/amp site -Foul Odor after Cleansing No -Other Dressing Theraskin -Primary Dressing Covered/Secured Dry Gauze & with Roll Gauze, Secured with Tape [Compression Applied] Right -Compression Wrap Jens Wrap [Post Procedure Tolerated] -Treatment Response Procedure Tolerated Well Pain Scale: 0-10 Numeric [Pain] -Is Patient Pain Free? Yes WC - Visit Discharge [Visit Discharge Information] -Discharge Condition Stable -Ambulatory Status Ambulatory -Transportation Private Auto Musculoskeletal: No Tenderness to Palpation of Joints or Extremities, - - toe amputations Neurological: - - lack of epicritic sensation consistent with neuropathy Psych/Mental Status: Normal Affect, Appropriate Debridement Note Post-Debridement Measurements/Treatment - Nurse 2 - General Ulcer CM Notes Start: 09/10/20 10:55 Freq: Status: Active Protocol: Activity Type Activity Date Activity User E-Sign Co-Sign Detail Recorded Client Recorded Date Recorded By Document 09/10/20 11:43 JERSON [id number] 09/10/20 12:01 JERSON 09/10/20 11:43 Wound Center Nurse 2 3-left plantar foot -Time 12:01 -Correct Patient Yes -Correct Side, Site, Position Yes -Correct Procedure Yes -Procedure Performed Yes -Type of Procedure Debridement -Clinical Debridement Subcutaneous -Tissue Removed Subcutaneous -Post Debridement (cm) - Length 0.5 -Post Debridement (cm) - Width 0.5 -Post Debridement (cm) - Depth 0.5 -Total Square (Post) (cm) 0.25 -Area of Debridement (cm) - Length 0.5 -Area of Debridement (cm) - Width 0.5 -Total Square (Area) (cm) 0.25 -Tunneling No -Undermining/Tunneling No -Circular Undermining No -Wound/Ulcer Outcome Not Healed -Ulcer Cleansing Rinsed/ Irrigated with Saline -Foul Odor after Cleansing No -Bioengineered Tissue No -Bleeding Controlled with Pressure -Offloading No -Treatment Response Procedure Tolerated Well -Debridement - Subq, 1st 20sq cm No 2-left dorsal foot -Time 11:47 -Correct Patient Yes -Correct Side, Site, Position Yes -Correct Procedure Yes -Procedure Performed Yes -Type of Procedure Debridement -Clinical Debridement Subcutaneous -Tissue Removed Subcutaneous -Post Debridement (cm) - Length 0.8 -Post Debridement (cm) - Width 0.2 -Post Debridement (cm) - Depth 0.2 -Total Square (Post) (cm) 0.16 -Area of Debridement (cm) - Length 0.8 -Area of Debridement (cm) - Width 0.2 -Total Square (Area) (cm) 0.16 -Tunneling No -Undermining/Tunneling No -Circular Undermining No -Wound/Ulcer Outcome Not Healed -Ulcer Cleansing Rinsed/ Irrigated with Saline -Foul Odor after Cleansing No -Bioengineered Tissue No -Bleeding Controlled with Pressure -Offloading No -Treatment Response Procedure Tolerated Well -Debridement - Subq, 1st 20sq cm Yes #1 Right lateral foot/amp site -Time 11:43 -Correct Patient Yes -Correct Side, Site, Position Yes -Correct Procedure Yes -Procedure Performed Yes -Type of Procedure Debridement -Clinical Debridement Subcutaneous -Tissue Removed Subcutaneous -Post Debridement (cm) - Length 7 -Post Debridement (cm) - Width 2 -Post Debridement (cm) - Depth 0.2 -Total Square (Post) (cm) 14 -Area of Debridement (cm) - Length 7 -Area of Debridement (cm) - Width 2 -Total Square (Area) (cm) 14 -Tunneling No -Undermining/Tunneling No -Circular Undermining No -Wound/Ulcer Outcome Not Healed -Ulcer Cleansing Rinsed/ Irrigated with Saline -Foul Odor after Cleansing No -Bioengineered Tissue Yes -Type of Bioengineered Tissue Theraskin -Expiration Date 02/25/25 -Product Lot Number [id number] -Percent Used 100 -Lot number of Saline Used [id number] -Bleeding Controlled with Pressure -Offloading Yes -Type of Offloading Camwalker -Treatment Response Procedure Tolerated Well -Debridement - Subq, 1st 20sq cm No -Apply Skin Sub - 1st 25 sq cm - Legs 1 -Theraskin (per sq cm) 39 Pain Scale: 0-10 Numeric Is Patient Pain Free? Yes - Nurse 3 - General Ulcer D/C NN Start: 09/10/20 10:55 Freq: Status: Active Protocol: Activity Type Activity Date Activity User E-Sign Co-Sign Detail Recorded Client Recorded Date Recorded By Document 09/10/20 12:16 DL [id number] 09/10/20 12:18 DL 09/10/20 12:16 Wound Care Nurse 3 3-left plantar foot -Foul Odor after Cleansing No -Other Dressing theraskin -Primary Dressing Covered/Secured with Dry Gauze & Roll Gauze, Secured with Tape 2-left dorsal foot -Foul Odor after Cleansing No -Other Dressing Theraskin -Primary Dressing Covered/Secured with Dry Gauze & Roll Gauze, Secured with Tape #1 Right lateral foot/amp site -Foul Odor after Cleansing No -Other Dressing Theraskin -Primary Dressing Covered/Secured with Dry Gauze & Roll Gauze, Secured with Tape Right -Compression Wrap Jens Wrap Treatment Response Procedure Tolerated Well Pain Scale: 0-10 Numeric Is Patient Pain Free? Yes - Visit Discharge Discharge Condition Stable Ambulatory Status Ambulatory Transportation Private Auto Wound debrided: lateral foot Laterality: Right Wound Grade/Stage: sams 3 Type of Debridement: Excisional debridement Anesthesia Used: 4% Lidocaine Solution Depth: in the subcutaneous layer Percentage of wound debrided: 100 Instrument Used: 5mm curette Tissue Removed: Tissue removed includes fibrous, devitalized, biofilm, and slough tissue Severity: Fat Layer Exposed Amount of bleeding with debridement: Mild Bleeding Controlled with: Pressure Patient tolerated procedure well - Additional Wound Wound debrided: dorsal 1st interspace Laterality: Left Wound Grade/Stage: sams 1 Type of Debridement: Excisional debridement Anesthesia Used: 4% Lidocaine Solution Depth: in the subcutaneous layer Percentage of wound debrided: 100 Instrument Used: 3mm curette Tissue Removed: Tissue removed includes fibrous, devitalized, biofilm, and slough tissue Severity: Fat Layer Exposed Amount of bleeding with debridement: Mild Bleeding Controlled with: Pressure Patient tolerated procedure: Patient tolerated procedure well - Additional Wound Wound debrided: plantar 1st metatarsal Laterality: Left Wound Grade/Stage: sams 1 Type of Debridement: Excisional debridement Anesthesia Used: 4% Lidocaine Solution Depth: in the subcutaneous layer Percentage of wound debrided: 100 Instrument Used: 3mm curette Tissue Removed: Tissue removed includes fibrous, devitalized, biofilm, and slough tissue Amount of bleeding with debridement: Mild Bleeding Controlled with: Pressure Patient tolerated procedure: Patient tolerated procedure well Assessment/Plan Active Problems (Last Reviewed 09/04/20 @ 09:28 by Renetta Bradley) Non-pressure chronic ulcer of other part of right foot with fat layer exposed (Chronic) Non-pressure chronic ulcer of other part of left foot with fat layer exposed (Chronic) Obese (Acute) KRYSTAL (obstructive sleep apnea) (Chronic) Bilateral lower extremity edema (Chronic) Type 2 diabetes mellitus (Chronic) Assessment: Left foot ulceration dorsal first interspace Sams 1. Left foot ucleration plantar 1st metatarsal head sams 1. Right foot plantar lateral aspect of foot status post osteomyelitis and fourth fifth ray resection Sams grade 3. dorsal right foot ulceration healed. Uncontrolled diabetes with neuropathy. Morbid obesity Plan: Patient seen and examined. Left foot wounds were sharply debrided without incident with well tolerant by patient due to neuropathy after verbal assent obtained. Patient noted to have a last A1c of 10.3 patient relates recent blood sugars have been in the low 100s. Patient noted to have positive margins from recent surgery amputation of fourth and fifth rays right foot. Verruca changes noted to ulcer biopsy of left dorsal first interspace. Discussed with patient the importance of offloading ulcer site, good nutrition including protein vitamin C, proper blood sugar control, and proper wound care to optimize healing. Patient relataes he has lost 30 pounds since being hospitalized. He admits to walking some to do this but mostly with diet. Patient relates that he is walking on his foot as little as possible when he does put any pressure he has pain which has improved. He has a cam boot. Patient was approved for TheraSkin application today. Decision was made not discontinue wound VAC. Patient instructed to advocate for himself if foam is placed onto skin directly again or if leg is not being properly cleaned. To use Aquacel silver to the left ulceration. TheraSkin graft application #[address] under steri strips and wound veil. Less depth noted today with granular base to left foot ulcer. Patient to follow-up in 1 week. This note was generated with [employer] software. It may contain incorrect words, spelling, and punctuation that were not noted in checking the note before signing.
[2020-09-17 10:08] VITALS: BP 121/82; PULSE 96; RESP 18; TEMP 36; BMI 47.7
--- NOTE | 2020-09-17 12:36 | PCM.WC.PN ---
(1) Obese Status: Acute Code(s): E66.9 - Obesity, unspecified (2) Non-pressure chronic ulcer of other part of right foot with fat layer exposed Status: Chronic Code(s): L97.512 - Non-pressure chronic ulcer of other part of right foot with fat layer exposed (3) Non-pressure chronic ulcer of other part of left foot with fat layer exposed Status: Chronic Code(s): L97.522 - Non-pressure chronic ulcer of other part of left foot with fat layer exposed (4) Osteomyelitis of toe of right foot Status: Resolved Code(s): M86.9 - Osteomyelitis, unspecified (5) KRYSTAL (obstructive sleep apnea) Status: Chronic Code(s): G47.33 - Obstructive sleep apnea (adult) (pediatric) (6) Bilateral lower extremity edema Status: Chronic Code(s): R60.0 - Localized edema (7) Type 2 diabetes mellitus Status: Chronic Qualifiers: Diabetes mellitus complication status: with neurologic complications Diabetes mellitus complication detail: with polyneuropathy Code(s): E11.9 - Type 2 diabetes mellitus without complications Type of Wound Date of Service: 09/17/20 Chief Complaint: Right foot plantar lateral ulceration status post fourth and fifth ray partial amputation. Left foot ulceration dorsal first interspace History of Wound: Patient is a 50-year-old male who presents to the wound care center for follow-up of hospital visit after surgical amputation of right fourth and fifth digits after osteomyelitis. Patient had removal of the fourth and fifth partial ray's by Dr. Ramos on 07/17/2020. Positive margins was noted on clearance fragments of right fourth and fifth rays. A biopsy was also obtained of left ulcer site near the first interspace dorsally which showed verrucual changes. Patient has large deficit to foot given removal of infection severity. Patient was on a wound VAC since discharge. Patient was discharged on levofloxacin linezolid and Flagyl. Patient states that they have largely sorted out the home health care issue with the wound VAC being applied properly but is having issues with them properly washing of the lower extremities. He has since discontinued the wound VAC. He states that the only rinse it with saline and do not use soap. Patient was approved for application of TheraSkin. Progress of Wound: right foot ulceration improved. Improved dorsal interspace left foot ulceration. dorsal right foot ucleration healed. Stable plantar left foot ulceration Subjective: Patient seen and examined resting comfortably. Patient denies any new pedal complaints. Patient denies any nausea, fever, chills, chest pain, shortness of breath, cough, streaking, purulence, vomiting. - Physical Exam Vital Signs Temp Pulse Resp BP 96.8 F L 96 18 121/82 H 09/17/20 10:08 09/17/20 10:08 09/17/20 10:08 09/17/20 10:08 General: Alert, Oriented x3 HEENT: Atraumatic Abdomen: Obese Extremities: No clubbing, No cyanosis, Capillary Refill Less than 3 Seconds, No Calf Tenderness, Diminished Peripheral Pulses, Edema Skin: Ulcer/ Wound - Right lateral foot and left plantar forefoot ulcer and left dorsal first interspace ulceration. No malodor, erythema, purulence, probing to bone, streaking, or other signs of infection. Skin is atrophic and hairless. Granular base Wound Measurements and Assessment WC - Nurse 1 - General Ulcer Measurement Start: 09/10/20 10:55 Freq: Status: Active Protocol: Activity Type Activity Date Activity User E-Sign Co-Sign Detail Recorded Client Recorded Date Recorded By Document 09/17/20 10:08 MW [id number] 09/17/20 10:17 MW 09/17/20 10:08 Wound Center Nurse 1 [Ulcer Assessment] 3-left plantar foot -Combined with other wound No -Photo Taken No -Epithelialization None Present -Exudate Amt Medium -Exudate Type Serosanguineous -Texture (Michelle-wound Skin Appearance) Assessed, Localized Edema -Moisture (Michelle-wound Skin Appearance Assessed,Dry/ ) Scaly -Color (Michelle-wound Skin Appearance) Assessed, Hemosiderin Staining -Temperature (Michelle-wound Skin No Abnormality Appearance) (Pt Warm) -Ulcer Cleansing MICHELLE ULCER SOAP /WATER -Foul Odor after Cleansing No 2-left dorsal foot -Combined with other wound No -Photo Taken No -Exudate Amt Medium -Exudate Type Serosanguineous -Texture (Michelle-wound Skin Appearance) Assessed, Localized Edema -Moisture (Michelle-wound Skin Appearance Assessed,Dry/ ) Scaly -Color (Michelle-wound Skin Appearance) Assessed, Hemosiderin Staining -Temperature (Michelle-wound Skin No Abnormality Appearance) (Pt Warm) -Tenderness on Palpation (Michelle-wound Yes Skin Appearance) -Ulcer Cleansing MICHELLE ULCER SOAP / WATER -Foul Odor after Cleansing No #1 Right lateral foot/amp site -Combined with other wound No -Epithelialization None Present -Exudate Amt Medium -Exudate Type Serosanguineous -Texture (Michelle-wound Skin Appearance) Assessed, Localized Edema -Moisture (Michelle-wound Skin Appearance Assessed,Dry/ ) Scaly -Color (Michelle-wound Skin Appearance) Assessed, Hemosiderin Staining -Temperature (Michelle-wound Skin No Abnormality Appearance) (Pt Warm) -Tenderness on Palpation (Michelle-wound Yes Skin Appearance) -Ulcer Cleansing MICHELLE ULCER SOAP / WATER -Foul Odor after Cleansing No [Edema Assessment] -Lower Limb Edema Present No WC - Nurse 2 - General Ulcer CM Notes Start: 09/10/20 10:55 Freq: Status: Active Protocol: Activity Type Activity Date Activity User E-Sign Co-Sign Detail Recorded Client Recorded Date Recorded By Document 09/17/20 10:48 JERSON [id number] 09/17/20 11:01 JERSON 09/17/20 10:48 Wound Center Nurse 2 [Procedure/Treatment] 3-left plantar foot -Time 10:59 -Correct Patient Yes -Correct Side, Site, Position Yes -Correct Procedure Yes -Procedure Performed Yes -Type of Procedure Debridement -Clinical Debridement Subcutaneous -Tissue Removed Subcutaneous -Post Debridement (cm) - Length 0.5 -Post Debridement (cm) - Width 0.5 -Post Debridement (cm) - Depth 0.5 -Total Square (Post) (cm) 0.25 -Area of Debridement (cm) - Length 0.5 -Area of Debridement (cm) - Width 0.5 -Total Square (Area) (cm) 0.25 -Tunneling No -Undermining/Tunneling No -Circular Undermining No -Wound/Ulcer Outcome Not Healed -Ulcer Cleansing Rinsed/ Irrigated with Saline -Foul Odor after Cleansing No -Bioengineered Tissue No -Bleeding Controlled with Pressure -Offloading No -Treatment Response Procedure Tolerated Well -Debridement - Subq, 1st 20sq cm Yes 2-left dorsal foot -Time 10:49 -Correct Patient Yes -Correct Side, Site, Position Yes -Correct Procedure Yes -Procedure Performed Yes -Type of Procedure Debridement -Clinical Debridement Subcutaneous -Tissue Removed Subcutaneous -Post Debridement (cm) - Length 0.1 -Post Debridement (cm) - Width 0.1 -Post Debridement (cm) - Depth 0.1 -Total Square (Post) (cm) 0.01 -Area of Debridement (cm) - Length 0.1 -Area of Debridement (cm) - Width 0.1 -Total Square (Area) (cm) 0.01 -Tunneling No -Undermining/Tunneling No -Circular Undermining No -Wound/Ulcer Outcome Not Healed -Ulcer Cleansing Rinsed/ Irrigated with Saline -Foul Odor after Cleansing No -Bioengineered Tissue No -Bleeding Controlled with Pressure -Offloading No -Treatment Response Procedure Tolerated Well -Debridement - Subq, 1st 20sq cm No #1 Right lateral foot/amp site -Time 10:50 -Correct Patient Yes -Correct Side, Site, Position Yes -Correct Procedure Yes -Procedure Performed Yes -Type of Procedure Debridement -Clinical Debridement Subcutaneous -Tissue Removed Subcutaneous -Post Debridement (cm) - Length 4 -Post Debridement (cm) - Width 1.5 -Post Debridement (cm) - Depth 0.1 -Total Square (Post) (cm) 6.0 -Area of Debridement (cm) - Length 4 -Area of Debridement (cm) - Width 1.5 -Total Square (Area) (cm) 6.0 -Tunneling No -Undermining/Tunneling No -Circular Undermining No -Wound/Ulcer Outcome Not Healed -Ulcer Cleansing Rinsed/ Irrigated with Saline -Foul Odor after Cleansing No -Bioengineered Tissue Yes -Type of Bioengineered Tissue Theraskin -Expiration Date 12/25/23 -Product Lot Number [id number] -Percent Used 100 -Lot number of Saline Used [id number] -Bleeding Controlled with Pressure -Offloading Yes -Type of Offloading Camwalker -Treatment Response Procedure Tolerated Well -Debridement - Subq, 1st 20sq cm No -Apply Skin Sub - 1st 25 sq cm - Feet 1 -Theraskin (per sq cm) 13 [See Physician Procedure note for Specifics] Pain Scale: 0-10 Numeric [Pain] -Is Patient Pain Free? Yes WC - Nurse 3 - General Ulcer D/C NN Start: 09/10/20 10:55 Freq: Status: Active Protocol: Activity Type Activity Date Activity User E-Sign Co-Sign Detail Recorded Client Recorded Date Recorded By Document 09/17/20 11:07 MS [id number] 09/17/20 11:09 MS 09/17/20 11:07 Wound Care Nurse 3 [Wound Dressing] 3-left plantar foot -Ulcer Cleansing Not Cleansed -Other Dressing THERASKIN -Primary Dressing Covered/Secured Dry Gauze, with Secured with Tape 2-left dorsal foot -Ulcer Cleansing Not Cleansed -Other Dressing THERSKIN -Primary Dressing Covered/Secured Dry Gauze, with Secured with Tape #1 Right lateral foot/amp site -Ulcer Cleansing Not Cleansed -Other Dressing THERSKIN -Primary Dressing Covered/Secured Dry Gauze, with Secured with Tape [Compression Applied] Left -Other JENS WRAP Right -Other JENS WRAP - Visit Discharge [Visit Discharge Information] -Discharge Condition Stable -Ambulatory Status Ambulatory -Medication Reconcilliation completed No & provided to patient/care provider -Clinical Summary of Care Provided Yes Musculoskeletal: - - toe Amputations noted Neurological: - - Lack of epicritic sensation consistent with neuropathy Psych/Mental Status: Normal Affect, Appropriate Debridement Note Post-Debridement Measurements/Treatment WC - Nurse 2 - General Ulcer CM Notes Start: 09/10/20 10:55 Freq: Status: Active Protocol: Activity Type Activity Date Activity User E-Sign Co-Sign Detail Recorded Client Recorded Date Recorded By Document 09/10/20 11:43 JF [id number] 09/10/20 12:01 Document 09/17/20 10:48 JF [id number] 09/17/20 11:01 09/10/20 09/17/20 11:43 10:48 Wound Center Nurse 2 3-left plantar foot -Time 12:01 10:59 -Correct Patient Yes Yes -Correct Side, Site, Position Yes Yes -Correct Procedure Yes Yes -Procedure Performed Yes Yes -Type of Procedure Debridement Debridement -Clinical Debridement Subcutaneous Subcutaneous -Tissue Removed Subcutaneous Subcutaneous -Post Debridement (cm) - Length 0.5 0.5 -Post Debridement (cm) - Width 0.5 0.5 -Post Debridement (cm) - Depth 0.5 0.5 -Total Square (Post) (cm) 0.25 0.25 -Area of Debridement (cm) - Length 0.5 0.5 -Area of Debridement (cm) - Width 0.5 0.5 -Total Square (Area) (cm) 0.25 0.25 -Tunneling No No -Undermining/Tunneling No No -Circular Undermining No No -Wound/Ulcer Outcome Not Healed Not Healed -Ulcer Cleansing Rinsed/ Rinsed/ Irrigated with Irrigated with Saline Saline -Foul Odor after Cleansing No No -Bioengineered Tissue No No -Bleeding Controlled with Pressure Pressure -Offloading No No -Treatment Response Procedure Procedure Tolerated Well Tolerated Well -Debridement - Subq, 1st 20sq cm No Yes 2-left dorsal foot -Time 11:47 10:49 -Correct Patient Yes Yes -Correct Side, Site, Position Yes Yes -Correct Procedure Yes Yes -Procedure Performed Yes Yes -Type of Procedure Debridement Debridement -Clinical Debridement Subcutaneous Subcutaneous -Tissue Removed Subcutaneous Subcutaneous -Post Debridement (cm) - Length 0.8 0.1 -Post Debridement (cm) - Width 0.2 0.1 -Post Debridement (cm) - Depth 0.2 0.1 -Total Square (Post) (cm) 0.16 0.01 -Area of Debridement (cm) - Length 0.8 0.1 -Area of Debridement (cm) - Width 0.2 0.1 -Total Square (Area) (cm) 0.16 0.01 -Tunneling No No -Undermining/Tunneling No No -Circular Undermining No No -Wound/Ulcer Outcome Not Healed Not Healed -Ulcer Cleansing Rinsed/ Rinsed/ Irrigated with Irrigated with Saline Saline -Foul Odor after Cleansing No No -Bioengineered Tissue No No -Bleeding Controlled with Pressure Pressure -Offloading No No -Treatment Response Procedure Procedure Tolerated Well Tolerated Well -Debridement - Subq, 1st 20sq cm Yes No #1 Right lateral foot/amp site -Time 11:43 10:50 -Correct Patient Yes Yes -Correct Side, Site, Position Yes Yes -Correct Procedure Yes Yes -Procedure Performed Yes Yes -Type of Procedure Debridement Debridement -Clinical Debridement Subcutaneous Subcutaneous -Tissue Removed Subcutaneous Subcutaneous -Post Debridement (cm) - Length 7 4 -Post Debridement (cm) - Width 2 1.5 -Post Debridement (cm) - Depth 0.2 0.1 -Total Square (Post) (cm) 14 6.0 -Area of Debridement (cm) - Length 7 4 -Area of Debridement (cm) - Width 2 1.5 -Total Square (Area) (cm) 14 6.0 -Tunneling No No -Undermining/Tunneling No No -Circular Undermining No No -Wound/Ulcer Outcome Not Healed Not Healed -Ulcer Cleansing Rinsed/ Rinsed/ Irrigated with Irrigated with Saline Saline -Foul Odor after Cleansing No No -Bioengineered Tissue Yes Yes -Type of Bioengineered Tissue Theraskin Theraskin -Expiration Date 02/25/25 12/25/23 -Product Lot Number [id number] -Percent Used 100 100 -Lot number of Saline Used [id number] -Bleeding Controlled with Pressure Pressure -Offloading Yes Yes -Type of Offloading Camwalker Camwalker -Treatment Response Procedure Procedure Tolerated Well Tolerated Well -Debridement - Subq, 1st 20sq cm No No -Apply Skin Sub - 1st 25 sq cm - Legs 1 -Apply Skin Sub - 1st 25 sq cm - Feet 1 -Theraskin (per sq cm) 39 13 Pain Scale: 0-10 Numeric Is Patient Pain Free? Yes Yes WC - Nurse 3 - General Ulcer D/C NN Start: 09/10/20 10:55 Freq: Status: Active Protocol: Activity Type Activity Date Activity User E-Sign Co-Sign Detail Recorded Client Recorded Date Recorded By Document 09/10/20 12:16 DL [id number] 09/10/20 12:18 DL Document 09/17/20 11:07 MS [id number] 09/17/20 11:09 MS 09/10/20 09/17/20 12:16 11:07 Wound Care Nurse 3 3-left plantar foot -Ulcer Cleansing Not Cleansed -Foul Odor after Cleansing No -Other Dressing theraskin THER[place]IN -Primary Dressing Covered/Secured with Dry Gauze & Dry Gauze, Roll Gauze, Secured with Secured with Tape Tape 2-left dorsal foot -Ulcer Cleansing Not Cleansed -Foul Odor after Cleansing No -Other Dressing Theraskin THERSKIN -Primary Dressing Covered/Secured with Dry Gauze & Dry Gauze, Roll Gauze, Secured with Secured with Tape Tape #1 Right lateral foot/amp site -Ulcer Cleansing Not Cleansed -Foul Odor after Cleansing No -Other Dressing Theraskin THERSKIN -Primary Dressing Covered/Secured with Dry Gauze & Dry Gauze, Roll Gauze, Secured with Secured with Tape Tape Left -Other JENS WRAP Right -Compression Wrap Jens Wrap -Other JENS WRAP Treatment Response Procedure Tolerated Well Pain Scale: 0-10 Numeric Is Patient Pain Free? Yes WC - Visit Discharge Discharge Condition Stable Stable Ambulatory Status Ambulatory Ambulatory Transportation Private Auto Medication Reconcilliation completed & No provided to patient/care provider Clinical Summary of Care Provided Yes Wound debrided: Lateral foot Laterality: Right Wound Grade/Stage: Sams 3 Type of Debridement: Excisional debridement Anesthesia Used: 4% Lidocaine Solution Depth: in the subcutaneous layer Percentage of wound debrided: 100 Instrument Used: 7mm curette Tissue Removed: Tissue removed includes fibrous, devitalized, biofilm, and slough tissue Severity: Fat Layer Exposed Amount of bleeding with debridement: Mild Bleeding Controlled with: Pressure Patient tolerated procedure well - Additional Wound Wound debrided: Dorsal interspace first Laterality: Left Wound Grade/Stage: Sams 1 Type of Debridement: Excisional debridement Anesthesia Used: 4% Lidocaine Solution Depth: in the subcutaneous layer Percentage of wound debrided: 100 Instrument Used: 3mm curette Tissue Removed: Tissue removed includes fibrous, devitalized, biofilm, and slough tissue Severity: Fat Layer Exposed Amount of bleeding with debridement: Mild Bleeding Controlled with: Pressure Patient tolerated procedure: Patient tolerated procedure well - Additional Wound Wound debrided: Plantar forefoot Laterality: Left Wound Grade/Stage: Sams 1 Type of Debridement: Excisional debridement Anesthesia Used: 4% Lidocaine Solution Depth: in the subcutaneous layer Percentage of wound debrided: 100 Instrument Used: 3mm curette Tissue Removed: Tissue removed includes fibrous, devitalized, biofilm, and slough tissue Severity: Fat Layer Exposed Amount of bleeding with debridement: Mild Bleeding Controlled with: Pressure Patient tolerated procedure: Patient tolerated procedure well Assessment/Plan Active Problems (Last Reviewed 09/04/20 @ 09:28 by Renetta Bradley) Non-pressure chronic ulcer of other part of right foot with fat layer exposed (Chronic) Non-pressure chronic ulcer of other part of left foot with fat layer exposed (Chronic) Obese (Acute) KRYSTAL (obstructive sleep apnea) (Chronic) Bilateral lower extremity edema (Chronic) Type 2 diabetes mellitus (Chronic) Assessment: Left foot ulceration dorsal first interspace Sams 1. Left foot ucleration plantar 1st metatarsal head sams 1. Right foot plantar lateral aspect of foot status post osteomyelitis and fourth fifth ray resection Sams grade 3. dorsal right foot ulceration healed. Uncontrolled diabetes with neuropathy. Morbid obesity Plan: Patient seen and examined. Left foot wounds were sharply debrided without incident with well tolerant by patient due to neuropathy after verbal assent obtained. Patient noted to have a last A1c of 10.3 patient relates recent blood sugars have been in the low 100s. Patient noted to have positive margins from recent surgery amputation of fourth and fifth rays right foot. Verruca changes noted to ulcer biopsy of left dorsal first interspace. Discussed with patient the importance of offloading ulcer site, good nutrition including protein vitamin C, proper blood sugar control, and proper wound care to optimize healing. Patient relataes he has lost 30 pounds since being hospitalized. He admits to walking some to do this but mostly with diet. Patient relates that he is walking on his foot as little as possible when he does put any pressure he has pain which has improved. He has a cam boot. Patient was approved for TheraSkin and another application done today. Patient instructed to advocate for himself if foam is placed onto skin directly again or if leg is not being properly cleaned. To use Aquacel silver to the left ulceration. TheraSkin graft application #[address] under steri strips and wound veil. I recommend application of advanced wound healing product to the right foot. Prior authorization was confirmed. The indications, benefits, anticipated application and healing time management were reviewed in detail. Verbal consent was obtained in the procedure for today. Site was debrided and graft was applied according to standard protocol and was further secured with a wound veil and Steri-Strips. Less depth noted today with granular base to left foot ulcer. Patient to follow-up in 1 week. This note was generated with [employer] dictation software. It may contain incorrect words, spelling, and punctuation that were not noted in checking the note before signing.
[2020-09-24 09:48] VITALS: BP 149/89; PULSE 91; RESP 20; TEMP 36.2; BMI 47.7
--- NOTE | 2020-09-24 10:44 | PN.PCM_ITS ---
(1) Obese Status: Acute Code(s): E66.9 - Obesity, unspecified (2) Non-pressure chronic ulcer of other part of right foot with fat layer exposed Status: Chronic Code(s): L97.512 - Non-pressure chronic ulcer of other part of right foot with fat layer exposed (3) Non-pressure chronic ulcer of other part of left foot with fat layer exposed Status: Chronic Code(s): L97.522 - Non-pressure chronic ulcer of other part of left foot with fat layer exposed (4) Osteomyelitis of toe of right foot Status: Resolved Code(s): M86.9 - Osteomyelitis, unspecified (5) KRYSTAL (obstructive sleep apnea) Status: Chronic Code(s): G47.33 - Obstructive sleep apnea (adult) (pediatric) (6) Bilateral lower extremity edema Status: Chronic Code(s): R60.0 - Localized edema (7) Type 2 diabetes mellitus Status: Chronic Qualifiers: Diabetes mellitus complication status: with neurologic complications Diabetes mellitus complication detail: with polyneuropathy Code(s): E11.9 - Type 2 diabetes mellitus without complications Type of Wound Date of Service: 09/24/20 Chief Complaint: Right foot plantar lateral ulceration status post fourth and fifth ray partial amputation. Left foot ulceration dorsal first interspace. Left foot plantar foot ulceration History of Wound: Patient is a 50-year-old male who presents to the wound care center for follow-up of hospital visit after surgical amputation of right fourth and fifth digits after osteomyelitis. Patient had removal of the fourth and fifth partial ray's by Dr. Ramos on 07/17/2020. Positive margins was noted on clearance fragments of right fourth and fifth rays. A biopsy was also obtained of left ulcer site near the first interspace dorsally which showed verrucual changes. Patient has large deficit to foot given removal of infection severity. Patient was on a wound VAC since discharge. Patient was discharged on levofloxacin linezolid and Flagyl. Patient states that they have largely sorted out the home health care issue with the wound VAC being applied properly but is having issues with them properly washing of the lower extremities. He has since discontinued the wound VAC. He states that the only rinse it with saline and do not use soap. Patient was approved for application of TheraSkin. Patient also has wound to the dorsal left first interspace and plantar left foot. He relates that the dorsal wound is recurrent. Progress of Wound: right foot ulceration improved. Improved dorsal interspace left foot ulceration. dorsal right foot ucleration healed. Stable plantar left foot ulceration Subjective: Patient seen and examined resting comfortably. Patient denies any new pedal complaints. Patient denies any nausea, fever, chills, chest pain, shortness of breath, cough, streaking, purulence, vomiting. - Physical Exam Vital Signs Temp Pulse Resp BP 97.2 F L 91 20 H 149/89 H 09/24/20 09:48 09/24/20 09:48 09/24/20 09:48 09/24/20 09:48 General: Alert, Oriented x3 HEENT: Atraumatic Abdomen: Obese Extremities: Capillary Refill Less than 3 Seconds, No Calf Tenderness, Diminished Peripheral Pulses, Edema - Right worse than left. Right foot skin is shiny. Skin: Ulcer/ Wound - Right lateral foot ulceration covered with graft Adaptic touch and Steri-Strips. Left foot ulcerations noted to improved in size. No malodor, erythema, purulence, probing to bone, streaking, fluctuation, crepitus, or other signs of infection. Skin is atrophic and hairless. Granular base Wound Measurements and Assessment WC - Nurse 1 - General Ulcer Measurement Start: 09/10/20 10:55 Freq: Status: Active Protocol: Activity Type Activity Date Activity User E-Sign Co-Sign Detail Recorded Client Recorded Date Recorded By Document 09/24/20 09:48 DL [id number] 09/24/20 10:00 DL 09/24/20 09:48 Wound Center Nurse 1 [Ulcer Assessment] 3-left plantar foot -Photo Taken No -Exudate Amt Small -Exudate Type Serosanguineous -Texture (Michelle-wound Skin Appearance) Scarring -Moisture (Michelle-wound Skin Appearance Dry/Scaly ) -Color (Michelle-wound Skin Appearance) Hemosiderin Staining -Temperature (Michelle-wound Skin No Abnormality Appearance) (Pt Warm) -Tenderness on Palpation (Michelle-wound No Skin Appearance) -Ulcer Cleansing Wound Cleanser -Foul Odor after Cleansing No 2-left dorsal foot -Photo Taken No -Exudate Amt Small -Exudate Type Serosanguineous -Texture (Michelle-wound Skin Appearance) Scarring -Moisture (Michelle-wound Skin Appearance Dry/Scaly ) -Color (Michelle-wound Skin Appearance) Hemosiderin Staining -Temperature (Michelle-wound Skin No Abnormality Appearance) (Pt Warm) -Tenderness on Palpation (Michelle-wound No Skin Appearance) -Ulcer Cleansing Wound Cleanser -Foul Odor after Cleansing No #1 Right lateral foot/amp site -Photo Taken No -Exudate Amt Medium -Texture (Michelle-wound Skin Appearance) No Abnormality, Scarring -Moisture (Michelle-wound Skin Appearance Dry/Scaly ) -Color (Michelle-wound Skin Appearance) Hemosiderin Staining -Temperature (Michelle-wound Skin No Abnormality Appearance) (Pt Warm) -Tenderness on Palpation (Michelle-wound No Skin Appearance) -Ulcer Cleansing Wound Cleanser -Foul Odor after Cleansing No WC - Nurse 2 - General Ulcer CM Notes Start: 09/10/20 10:55 Freq: Status: Active Protocol: Activity Type Activity Date Activity User E-Sign Co-Sign Detail Recorded Client Recorded Date Recorded By Document 09/24/20 10:27 JERSON [id number] 09/24/20 10:35 JERSON 09/24/20 10:27 Wound Center Nurse 2 [Procedure/Treatment] 3-left plantar foot -Time 10:34 -Correct Patient Yes -Correct Side, Site, Position Yes -Correct Procedure Yes -Procedure Performed Yes -Type of Procedure Debridement -Clinical Debridement Subcutaneous -Tissue Removed Subcutaneous -Post Debridement (cm) - Length 0.3 -Post Debridement (cm) - Width 0.3 -Post Debridement (cm) - Depth 0.2 -Total Square (Post) (cm) 0.09 -Area of Debridement (cm) - Length 0.3 -Area of Debridement (cm) - Width 0.3 -Total Square (Area) (cm) 0.09 -Tunneling No -Undermining/Tunneling No -Circular Undermining No -Wound/Ulcer Outcome Not Healed -Ulcer Cleansing Rinsed/ Irrigated with Saline -Foul Odor after Cleansing No -Bioengineered Tissue No -Bleeding Controlled with Pressure -Offloading No -Treatment Response Procedure Tolerated Well -Debridement - Subq, 1st 20sq cm Yes 2-left dorsal foot -Correct Patient No -Correct Side, Site, Position No -Correct Procedure No -Procedure Performed No #1 Right lateral foot/amp site -Correct Patient No -Correct Side, Site, Position No -Correct Procedure No -Procedure Performed No -Wound/Ulcer Outcome Not Healed [See Physician Procedure note for Specifics] Pain Scale: 0-10 Numeric [Pain] -Is Patient Pain Free? Yes Musculoskeletal: No Tenderness to Palpation of Joints or Extremities, - - Foot amputation Neurological: - - Decrease in epicritic sensation consistent with neuropathy Psych/Mental Status: Normal Affect, Appropriate Debridement Note Post-Debridement Measurements/Treatment WC - Nurse 2 - General Ulcer CM Notes Start: 09/10/20 10:55 Freq: Status: Active Protocol: Activity Type Activity Date Activity User E-Sign Co-Sign Detail Recorded Client Recorded Date Recorded By Document 09/10/20 11:43 [id number] 09/10/20 12:01 Document 09/17/20 10:48 [id number] 09/17/20 11:01 Document 09/24/20 10:27 [id number] 09/24/20 10:35 09/10/20 09/17/20 09/24/20 11:43 10:48 10:27 Wound Center Nurse 2 3-left plantar foot -Time 12:01 10:59 10:34 -Correct Patient Yes Yes Yes -Correct Side, Site, Position Yes Yes Yes -Correct Procedure Yes Yes Yes -Procedure Performed Yes Yes Yes -Type of Procedure Debridement Debridement Debridement -Clinical Debridement Subcutaneous Subcutaneous Subcutaneous -Tissue Removed Subcutaneous Subcutaneous Subcutaneous -Post Debridement (cm) - Length 0.5 0.5 0.3 -Post Debridement (cm) - Width 0.5 0.5 0.3 -Post Debridement (cm) - Depth 0.5 0.5 0.2 -Total Square (Post) (cm) 0.25 0.25 0.09 -Area of Debridement (cm) - Length 0.5 0.5 0.3 -Area of Debridement (cm) - Width 0.5 0.5 0.3 -Total Square (Area) (cm) 0.25 0.25 0.09 -Tunneling No No No -Undermining/Tunneling No No No -Circular Undermining No No No -Wound/Ulcer Outcome Not Healed Not Healed Not Healed -Ulcer Cleansing Rinsed/ Rinsed/ Rinsed/ Irrigated with Irrigated with Irrigated with Saline Saline Saline -Foul Odor after Cleansing No No No -Bioengineered Tissue No No No -Bleeding Controlled with Pressure Pressure Pressure -Offloading No No No -Treatment Response Procedure Procedure Procedure Tolerated Well Tolerated Well Tolerated Well -Debridement - Subq, 1st 20sq cm No Yes Yes 2-left dorsal foot -Time 11:47 10:49 -Correct Patient Yes Yes No -Correct Side, Site, Position Yes Yes No -Correct Procedure Yes Yes No -Procedure Performed Yes Yes No -Type of Procedure Debridement Debridement -Clinical Debridement Subcutaneous Subcutaneous -Tissue Removed Subcutaneous Subcutaneous -Post Debridement (cm) - Length 0.8 0.1 -Post Debridement (cm) - Width 0.2 0.1 -Post Debridement (cm) - Depth 0.2 0.1 -Total Square (Post) (cm) 0.16 0.01 -Area of Debridement (cm) - Length 0.8 0.1 -Area of Debridement (cm) - Width 0.2 0.1 -Total Square (Area) (cm) 0.16 0.01 -Tunneling No No -Undermining/Tunneling No No -Circular Undermining No No -Wound/Ulcer Outcome Not Healed Not Healed -Ulcer Cleansing Rinsed/ Rinsed/ Irrigated with Irrigated with Saline Saline -Foul Odor after Cleansing No No -Bioengineered Tissue No No -Bleeding Controlled with Pressure Pressure -Offloading No No -Treatment Response Procedure Procedure Tolerated Well Tolerated Well -Debridement - Subq, 1st 20sq cm Yes No #1 Right lateral foot/amp site -Time 11:43 10:50 -Correct Patient Yes Yes No -Correct Side, Site, Position Yes Yes No -Correct Procedure Yes Yes No -Procedure Performed Yes Yes No -Type of Procedure Debridement Debridement -Clinical Debridement Subcutaneous Subcutaneous -Tissue Removed Subcutaneous Subcutaneous -Post Debridement (cm) - Length 7 4 -Post Debridement (cm) - Width 2 1.5 -Post Debridement (cm) - Depth 0.2 0.1 -Total Square (Post) (cm) 14 6.0 -Area of Debridement (cm) - Length 7 4 -Area of Debridement (cm) - Width 2 1.5 -Total Square (Area) (cm) 14 6.0 -Tunneling No No -Undermining/Tunneling No No -Circular Undermining No No -Wound/Ulcer Outcome Not Healed Not Healed Not Healed -Ulcer Cleansing Rinsed/ Rinsed/ Irrigated with Irrigated with Saline Saline -Foul Odor after Cleansing No No -Bioengineered Tissue Yes Yes -Type of Bioengineered Tissue Theraskin Therdulce mariain -Expiration Date 02/25/25 12/25/23 -Product Lot Number [id number] -Percent Used 100 100 -Lot number of Saline Used [id number] -Bleeding Controlled with Pressure Pressure -Offloading Yes Yes -Type of Offloading Camwalker Camwalker -Treatment Response Procedure Procedure Tolerated Well Tolerated Well -Debridement - Subq, 1st 20sq cm No No -Apply Skin Sub - 1st 25 sq cm - Legs 1 -Apply Skin Sub - 1st 25 sq cm - Feet 1 -Theraskin (per sq cm) 39 13 Pain Scale: 0-10 Numeric Is Patient Pain Free? Yes Yes Yes - Nurse 3 - General Ulcer D/C NN Start: 09/10/20 10:55 Freq: Status: Active Protocol: Activity Type Activity Date Activity User E-Sign Co-Sign Detail Recorded Client Recorded Date Recorded By Document 09/10/20 12:16 DL [id number] 09/10/20 12:18 DL Document 09/17/20 11:07 MS [id number] 09/17/20 11:09 MS 09/10/20 09/17/20 12:16 11:07 Wound Care Nurse 3 3-left plantar foot -Ulcer Cleansing Not Cleansed -Foul Odor after Cleansing No -Other Dressing theraskin THERASKIN -Primary Dressing Covered/Secured with Dry Gauze & Dry Gauze, Roll Gauze, Secured with Secured with Tape Tape 2-left dorsal foot -Ulcer Cleansing Not Cleansed -Foul Odor after Cleansing No -Other Dressing Theraskin THERSKIN -Primary Dressing Covered/Secured with Dry Gauze & Dry Gauze, Roll Gauze, Secured with Secured with Tape Tape #1 Right lateral foot/amp site -Ulcer Cleansing Not Cleansed -Foul Odor after Cleansing No -Other Dressing Theraskin THERSKIN -Primary Dressing Covered/Secured with Dry Gauze & Dry Gauze, Roll Gauze, Secured with Secured with Tape Tape Left -Other JENS WRAP Right -Compression Wrap Jens Wrap -Other JENS WRAP Treatment Response Procedure Tolerated Well Pain Scale: 0-10 Numeric Is Patient Pain Free? Yes WC - Visit Discharge Discharge Condition Stable Stable Ambulatory Status Ambulatory Ambulatory Transportation Private Auto Medication Reconcilliation completed & No provided to patient/care provider Clinical Summary of Care Provided Yes Wound debrided: Lateral foot Laterality: Right No debridement was completed today - Graft was left in place. Resecured with Steri-Strips as needed - Additional Wound Wound debrided: Plantar foot ulcer Laterality: Left Wound Grade/Stage: Sams 1 Type of Debridement: Excisional debridement Anesthesia Used: 4% Lidocaine Solution Depth: in the subcutaneous layer Percentage of wound debrided: 100 Instrument Used: 3mm curette Tissue Removed: Tissue removed includes fibrous, devitalized, biofilm, and slough tissue Severity: Fat Layer Exposed Amount of bleeding with debridement: Mild Bleeding Controlled with: Pressure Patient tolerated procedure: Patient tolerated procedure well - Additional Wound Wound debrided: Dorsal first aspirated ulceration Laterality: Left Amount of bleeding with debridement: None - No debridement today Assessment/Plan Active Problems (Last Reviewed 09/04/20 @ 09:28 by Renetta Bradley) Non-pressure chronic ulcer of other part of right foot with fat layer exposed (Chronic) Non-pressure chronic ulcer of other part of left foot with fat layer exposed (Chronic) Obese (Acute) KRYSTAL (obstructive sleep apnea) (Chronic) Bilateral lower extremity edema (Chronic) Type 2 diabetes mellitus (Chronic) Assessment: Left foot ulceration dorsal first interspace Sams 1. Left foot ucleration plantar 1st metatarsal head sams 1. Right foot plantar lateral aspect of foot status post osteomyelitis and fourth fifth ray resection Sams grade 3. dorsal right foot ulceration healed. Edema. Uncontrolled diabetes with neuropathy. Morbid obesity Plan: Patient seen and examined. There is noted to be a significant increase in edema to the right lower extremity. Specially at the level of the foot. Discussed with patient that his compression need to start just behind the toes otherwise the foot will swell up more. Patient states that this just noticed today. Advised patient to watch this and if any questions or concerns to contact the office. Left foot wounds were sharply debrided without incident with well tolerant by patient due to neuropathy after verbal assent obtained. Patient noted to have a last A1c of 10.3 patient relates recent blood sugars have been in the low 100s. Patient noted to have positive margins from recent surgery amputation of fourth and fifth rays right foot. Verruca changes noted to ulcer biopsy of left dorsal first interspace. Discussed with patient the importance of offloading ulcer site, good nutrition including protein vitamin C, proper blood sugar control, and proper wound care to optimize healing. Patient relataes he has lost 30 pounds since being hospitalized. He admits to walking some to do this but mostly with diet. Patient relates that he is walking on his foot as little as possible when he does put any pressure he has pain which has improved. He has a cam boot. Patient has his cam boot is falling apart. Recommend the patient contact physician office to give him the cam boot to see if a replacement can be obtained. Patient was approved for TheraSkin. Graft left in place this week and will reapply next week. Hydrogel dressing placed to left foot ulcer. Steri-Strips reinforce were necessary. Patient instructed to advocate for himself if foam is placed onto skin directly again or if leg is not being properly cleaned. I recommend application of advanced wound healing product to the right foot. Prior authorization was confirmed. The indications, benefits, anticipated application and healing time management were reviewed in detail. Verbal consent was obtained in the procedure for today. Site was debrided and graft was applied according to standard protocol and was further secured with a wound veil and Steri-Strips. Less depth noted today with granular base to left foot ulcer. Patient to follow-up in 1 week. This note was generated with [employer] dictation software. It may contain incorrect words, spelling, and punctuation that were not noted in checking the note before signing.
[2020-10-01 08:03] VITALS: BP 191/100; RESP 16; TEMP 37.3; BMI 47.7
--- NOTE | 2020-10-01 11:07 | PN.PCM_ITS ---
(1) Obese Status: Acute Code(s): E66.9 - Obesity, unspecified (2) Non-pressure chronic ulcer of other part of right foot with fat layer exposed Status: Chronic Code(s): L97.512 - Non-pressure chronic ulcer of other part of right foot with fat layer exposed (3) Non-pressure chronic ulcer of other part of left foot with fat layer exposed Status: Chronic Code(s): L97.522 - Non-pressure chronic ulcer of other part of left foot with fat layer exposed (4) Osteomyelitis of toe of right foot Status: Resolved Code(s): M86.9 - Osteomyelitis, unspecified (5) KRYSTAL (obstructive sleep apnea) Status: Chronic Code(s): G47.33 - Obstructive sleep apnea (adult) (pediatric) (6) Bilateral lower extremity edema Status: Chronic Code(s): R60.0 - Localized edema (7) Type 2 diabetes mellitus Status: Chronic Qualifiers: Diabetes mellitus complication status: with neurologic complications Diabetes mellitus complication detail: with polyneuropathy Code(s): E11.9 - Type 2 diabetes mellitus without complications Type of Wound Date of Service: 10/01/20 Chief Complaint: Right foot plantar lateral ulceration status post fourth and fifth ray partial amputation. Left foot ulceration dorsal first interspace. Left foot plantar foot ulceration History of Wound: Patient is a 50-year-old male who presents to the wound care center for follow-up of hospital visit after surgical amputation of right fourth and fifth digits after osteomyelitis. Patient had removal of the fourth and fifth partial ray's by Dr. Ramos on 07/17/2020. Positive margins was noted on clearance fragments of right fourth and fifth rays. A biopsy was also obtained of left ulcer site near the first interspace dorsally which showed verrucual changes. Patient has large deficit to foot given removal of infection severity. Patient was on a wound VAC since discharge. Patient was discharged on levofloxacin linezolid and Flagyl. Patient states that they have largely sorted out the home health care issue with the wound VAC being applied properly but is having issues with them properly washing of the lower extremities. He has since discontinued the wound VAC. He states that the only rinse it with saline and do not use soap. Patient was approved for application of TheraSkin. Patient also has wound to the dorsal left first interspace and plantar left foot. He relates that the dorsal wound is recurrent. Patient relates weight loss which is improved his health overall. Progress of Wound: right foot ulceration improved. Improved dorsal interspace left foot ulceration. dorsal right foot ucleration healed. Stable plantar left foot ulceration Subjective: Patient seen and examined resting comfortably. Patient denies any new pedal co mplaints. Patient denies any nausea, fever, chills, chest pain, shortness of breath, cough, streaking, purulence, vomiting. - Physical Exam Vital Signs Temp Pulse Resp BP 99.1 F 91 16 191/100 H 10/01/20 08:03 09/24/20 09:48 10/01/20 08:03 10/01/20 08:03 General: Alert, Oriented x3 HEENT: Atraumatic Extremities: No clubbing, No cyanosis, Capillary Refill Less than 3 Seconds, No Calf Tenderness, Diminished Peripheral Pulses, Edema Skin: Ulcer/ Wound - Right lateral foot, left dorsal first interspace and left plantar medial foot ulcers. No malodor, erythema, purulence, probing to bone, streaking, fluctuation, crepitus, or other signs of infection. Skin is atrophic and hairless. Granular base Wound Measurements and Assessment WC - Nurse 1 - General Ulcer Measurement Start: 09/10/20 10:55 Freq: Status: Active Protocol: Activity Type Activity Date Activity User E-Sign Co-Sign Detail Recorded Client Recorded Date Recorded By Document 10/01/20 08:03 [facility] [id number] 10/01/20 08:16 [facility] 10/01/20 08:03 Wound Center Nurse 1 [Ulcer Assessment] 3-left plantar foot -Combined with other wound No -Current Size (cm) - Length 0.1 -Current Size (cm) - Width 0.1 -Current Size (cm) - Depth 0.1 -Total Square Cm 0.01 -Photo Taken No -Epithelialization Large 67-100% -Tunneling No -Undermining/Tunneling No -Circular Undermining No -Exudate Amt None Present -Texture (Michelle-wound Skin Appearance) Assessed,Callus ,Scarring -Moisture (Michelle-wound Skin Appearance Assessed,Dry/ ) Scaly -Color (Michelle-wound Skin Appearance) Assessed -Temperature (Michelle-wound Skin No Abnormality Appearance) (Pt Warm) -Tenderness on Palpation (Michelle-wound No Skin Appearance) -Ulcer Cleansing soapy water -Foul Odor after Cleansing No -Anesthetic Used 5% Lidocaine Gel 2-left dorsal foot -Combined with other wound No -Current Size (cm) - Length 0.6 -Current Size (cm) - Width 0.2 -Current Size (cm) - Depth 0.3 -Total Square Cm 0.12 -Photo Taken No -Epithelialization Small 1-33% -Tunneling No -Undermining/Tunneling No -Circular Undermining No -Exudate Amt Small -Exudate Type Serosanguineous -Wound Margin Distinct, Outline Attached -Granulation Amt Large (67-100%) -Granulation Quality Red -Slough/Fibrin Yes -Necrosis Amt Small (1-33%) -Necrotic Tissue Type Adherent Slough -Texture (Michelle-wound Skin Appearance) Assessed, Scarring -Moisture (Michelle-wound Skin Appearance Assessed,Dry/ ) Scaly -Color (Michelle-wound Skin Appearance) Assessed -Temperature (Michelle-wound Skin No Abnormality Appearance) (Pt Warm) -Tenderness on Palpation (Michelle-wound No Skin Appearance) -Ulcer Cleansing soapy water -Foul Odor after Cleansing No -Anesthetic Used 5% Lidocaine Gel #1 Right lateral foot/amp site -Combined with other wound No -Current Size (cm) - Length 3.7 -Current Size (cm) - Width 2.4 -Current Size (cm) - Depth 0.1 -Total Square Cm 8.88 -Photo Taken No -Epithelialization Small 1-33% -Tunneling No -Undermining/Tunneling No -Circular Undermining No -Exudate Amt Medium -Exudate Type Serosanguineous -Wound Margin Distinct, Outline Attached -Granulation Amt Medium (34-66%) -Granulation Quality Pale,Red -Slough/Fibrin Yes -Necrosis Amt Medium (34-66%) -Necrotic Tissue Type Adherent Slough -Texture (Michelle-wound Skin Appearance) Assessed, Scarring -Moisture (Michelle-wound Skin Appearance Assessed, ) Maceration,Dry/ Scaly -Color (Michelle-wound Skin Appearance) Assessed,Palor -Temperature (Michelle-wound Skin No Abnormality Appearance) (Pt Warm) -Tenderness on Palpation (Michelle-wound No Skin Appearance) -Ulcer Cleansing soapy water -Foul Odor after Cleansing No -Anesthetic Used 5% Lidocaine Gel WC - Nurse 2 - General Ulcer CM Notes Start: 09/10/20 10:55 Freq: Status: Active Protocol: Activity Type Activity Date Activity User E-Sign Co-Sign Detail Recorded Client Recorded Date Recorded By Document 10/01/20 08:26 JERSON [id number] 10/01/20 08:34 JERSON 10/01/20 08:26 Wound Center Nurse 2 [Procedure/Treatment] 3-left plantar foot -Time 08:28 -Correct Patient Yes -Correct Side, Site, Position Yes -Correct Procedure Yes -Procedure Performed Yes -Type of Procedure Debridement -Clinical Debridement Subcutaneous -Tissue Removed Subcutaneous -Post Debridement (cm) - Length 0.4 -Post Debridement (cm) - Width 0.4 -Post Debridement (cm) - Depth 0.3 -Total Square (Post) (cm) 0.16 -Area of Debridement (cm) - Length 0.4 -Area of Debridement (cm) - Width 0.4 -Total Square (Area) (cm) 0.16 -Tunneling No -Undermining/Tunneling No -Circular Undermining No -Wound/Ulcer Outcome Not Healed -Ulcer Cleansing Rinsed/ Irrigated with Saline -Foul Odor after Cleansing No -Bioengineered Tissue No -Bleeding Controlled with Pressure -Offloading No -Treatment Response Procedure Tolerated Well -Debridement - Subq, 1st 20sq cm Yes 2-left dorsal foot -Time 08:29 -Correct Patient Yes -Correct Side, Site, Position Yes -Correct Procedure Yes -Procedure Performed Yes -Type of Procedure Debridement -Clinical Debridement Subcutaneous -Tissue Removed Subcutaneous -Post Debridement (cm) - Length 1 -Post Debridement (cm) - Width 0.3 -Post Debridement (cm) - Depth 0.3 -Total Square (Post) (cm) 0.3 -Area of Debridement (cm) - Length 1 -Area of Debridement (cm) - Width 0.3 -Total Square (Area) (cm) 0.3 -Tunneling No -Undermining/Tunneling No -Circular Undermining No -Wound/Ulcer Outcome Not Healed -Ulcer Cleansing Rinsed/ Irrigated with Saline -Foul Odor after Cleansing No -Bioengineered Tissue No -Bleeding Controlled with Pressure -Offloading No -Treatment Response Procedure Tolerated Well -Debridement - Subq, 1st 20sq cm No #1 Right lateral foot/amp site -Time 08:29 -Correct Patient Yes -Correct Side, Site, Position Yes -Correct Procedure Yes -Procedure Performed Yes -Type of Procedure Debridement -Clinical Debridement Subcutaneous -Tissue Removed Subcutaneous -Post Debridement (cm) - Length 3.8 -Post Debridement (cm) - Width 0.7 -Post Debridement (cm) - Depth 0.2 -Total Square (Post) (cm) 2.66 -Area of Debridement (cm) - Length 3.8 -Area of Debridement (cm) - Width 0.7 -Total Square (Area) (cm) 2.66 -Tunneling No -Undermining/Tunneling No -Circular Undermining No -Wound/Ulcer Outcome Not Healed -Ulcer Cleansing Rinsed/ Irrigated with Saline -Foul Odor after Cleansing No -Bioengineered Tissue Yes -Type of Bioengineered Tissue Theraskin -Expiration Date 01/05/24 -Product Lot Number [id number] -Percent Used 100 -Lot number of Saline Used [id number] -Bleeding Controlled with Pressure -Offloading Yes -Type of Offloading Surgical Shoe -Treatment Response Procedure Tolerated Well -Debridement - Subq, 1st 20sq cm No -Apply Skin Sub - 1st 25 sq cm - Feet 1 -Theraskin (per sq cm) 13 [See Physician Procedure note for Specifics] Pain Scale: 0-10 Numeric [Pain] -Is Patient Pain Free? Yes - Nurse 3 - General Ulcer D/C NN Start: 09/10/20 10:55 Freq: Status: Active Protocol: Activity Type Activity Date Activity User E-Sign Co-Sign Detail Recorded Client Recorded Date Recorded By Document 10/01/20 08:49 [facility] [id number] 10/01/20 08:49 [facility] 10/01/20 08:49 Wound Care Nurse 3 [Wound Dressing] 3-left plantar foot -Other Dressing theraskin -Primary Dressing Covered/Secured Dry Gauze & with Roll Gauze, Secured with Tape 2-left dorsal foot -Other Dressing theraskin -Primary Dressing Covered/Secured Dry Gauze & with Roll Gauze, Secured with Tape #1 Right lateral foot/amp site -Other Dressing theraskin -Primary Dressing Covered/Secured Dry Gauze & with Roll Gauze, Secured with Tape,Other -Other Covering abd [Compression Applied] Left -Compression Wrap Jens Wrap Right -Compression Wrap Jens Wrap [Post Procedure Tolerated] -Treatment Response Procedure Tolerated Well Pain Scale: 0-10 Numeric [Pain] -Is Patient Pain Free? Yes - Visit Discharge [Visit Discharge Information] -Discharge Condition Stable -Ambulatory Status Ambulatory -Transportation Private Auto [Facility Notification] -Facility Type Home Health Musculoskeletal: - - Toe amputation noted Neurological: - - Decrease in epicritic sensation consistent with neuropathy Psych/Mental Status: Normal Affect, Appropriate Debridement Note Post-Debridement Measurements/Treatment - Nurse 2 - General Ulcer CM Notes Start: 09/10/20 10:55 Freq: Status: Active Protocol: Activity Type Activity Date Activity User E-Sign Co-Sign Detail Recorded Client Recorded Date Recorded By Document 09/10/20 11:43 [id number] 09/10/20 12:01 Document 09/17/20 10:48 [id number] 09/17/20 11:01 Document 09/24/20 10:27 [id number] 09/24/20 10:35 Document 10/01/20 08:26 [id number] 10/01/20 08:34 09/10/20 09/17/20 09/24/20 11:43 10:48 10:27 Wound Center Nurse 2 3-left plantar foot -Time 12:01 10:59 10:34 -Correct Patient Yes Yes Yes -Correct Side, Site, Position Yes Yes Yes -Correct Procedure Yes Yes Yes -Procedure Performed Yes Yes Yes -Type of Procedure Debridement Debridement Debridement -Clinical Debridement Subcutaneous Subcutaneous Subcutaneous -Tissue Removed Subcutaneous Subcutaneous Subcutaneous -Post Debridement (cm) - Length 0.5 0.5 0.3 -Post Debridement (cm) - Width 0.5 0.5 0.3 -Post Debridement (cm) - Depth 0.5 0.5 0.2 -Total Square (Post) (cm) 0.25 0.25 0.09 -Area of Debridement (cm) - Length 0.5 0.5 0.3 -Area of Debridement (cm) - Width 0.5 0.5 0.3 -Total Square (Area) (cm) 0.25 0.25 0.09 -Tunneling No No No -Undermining/Tunneling No No No -Circular Undermining No No No -Wound/Ulcer Outcome Not Healed Not Healed Not Healed -Ulcer Cleansing Rinsed/ Rinsed/ Rinsed/ Irrigated with Irrigated with Irrigated with Saline Saline Saline -Foul Odor after Cleansing No No No -Bioengineered Tissue No No No -Bleeding Controlled with Pressure Pressure Pressure -Offloading No No No -Treatment Response Procedure Procedure Procedure Tolerated Well Tolerated Well Tolerated Well -Debridement - Subq, 1st 20sq cm No Yes Yes 2-left dorsal foot -Time 11:47 10:49 -Correct Patient Yes Yes No -Correct Side, Site, Position Yes Yes No -Correct Procedure Yes Yes No -Procedure Performed Yes Yes No -Type of Procedure Debridement Debridement -Clinical Debridement Subcutaneous Subcutaneous -Tissue Removed Subcutaneous Subcutaneous -Post Debridement (cm) - Length 0.8 0.1 -Post Debridement (cm) - Width 0.2 0.1 -Post Debridement (cm) - Depth 0.2 0.1 -Total Square (Post) (cm) 0.16 0.01 -Area of Debridement (cm) - Length 0.8 0.1 -Area of Debridement (cm) - Width 0.2 0.1 -Total Square (Area) (cm) 0.16 0.01 -Tunneling No No -Undermining/Tunneling No No -Circular Undermining No No -Wound/Ulcer Outcome Not Healed Not Healed -Ulcer Cleansing Rinsed/ Rinsed/ Irrigated with Irrigated with Saline Saline -Foul Odor after Cleansing No No -Bioengineered Tissue No No -Bleeding Controlled with Pressure Pressure -Offloading No No -Treatment Response Procedure Procedure Tolerated Well Tolerated Well -Debridement - Subq, 1st 20sq cm Yes No #1 Right lateral foot/amp site -Time 11:43 10:50 -Correct Patient Yes Yes No -Correct Side, Site, Position Yes Yes No -Correct Procedure Yes Yes No -Procedure Performed Yes Yes No -Type of Procedure Debridement Debridement -Clinical Debridement Subcutaneous Subcutaneous -Tissue Removed Subcutaneous Subcutaneous -Post Debridement (cm) - Length 7 4 -Post Debridement (cm) - Width 2 1.5 -Post Debridement (cm) - Depth 0.2 0.1 -Total Square (Post) (cm) 14 6.0 -Area of Debridement (cm) - Length 7 4 -Area of Debridement (cm) - Width 2 1.5 -Total Square (Area) (cm) 14 6.0 -Tunneling No No -Undermining/Tunneling No No -Circular Undermining No No -Wound/Ulcer Outcome Not Healed Not Healed Not Healed -Ulcer Cleansing Rinsed/ Rinsed/ Irrigated with Irrigated with Saline Saline -Foul Odor after Cleansing No No -Bioengineered Tissue Yes Yes -Type of Bioengineered Tissue Theraskin Theraskin -Expiration Date 02/25/25 12/25/23 -Product Lot Number [id number] -Percent Used 100 100 -Lot number of Saline Used [id number] -Bleeding Controlled with Pressure Pressure -Offloading Yes Yes -Type of Offloading Camwalker Camwalker -Treatment Response Procedure Procedure Tolerated Well Tolerated Well -Debridement - Subq, 1st 20sq cm No No -Apply Skin Sub - 1st 25 sq cm - Legs 1 -Apply Skin Sub - 1st 25 sq cm - Feet 1 -Theraskin (per sq cm) 39 13 Pain Scale: 0-10 Numeric Is Patient Pain Free? Yes Yes Yes 10/01/20 08:26 Wound Center Nurse 2 3-left plantar foot -Time 08:28 -Correct Patient Yes -Correct Side, Site, Position Yes -Correct Procedure Yes -Procedure Performed Yes -Type of Procedure Debridement -Clinical Debridement Subcutaneous -Tissue Removed Subcutaneous -Post Debridement (cm) - Length 0.4 -Post Debridement (cm) - Width 0.4 -Post Debridement (cm) - Depth 0.3 -Total Square (Post) (cm) 0.16 -Area of Debridement (cm) - Length 0.4 -Area of Debridement (cm) - Width 0.4 -Total Square (Area) (cm) 0.16 -Tunneling No -Undermining/Tunneling No -Circular Undermining No -Wound/Ulcer Outcome Not Healed -Ulcer Cleansing Rinsed/ Irrigated with Saline -Foul Odor after Cleansing No -Bioengineered Tissue No -Bleeding Controlled with Pressure -Offloading No -Treatment Response Procedure Tolerated Well -Debridement - Subq, 1st 20sq cm Yes 2-left dorsal foot -Time 08:29 -Correct Patient Yes -Correct Side, Site, Position Yes -Correct Procedure Yes -Procedure Performed Yes -Type of Procedure Debridement -Clinical Debridement Subcutaneous -Tissue Removed Subcutaneous -Post Debridement (cm) - Length 1 -Post Debridement (cm) - Width 0.3 -Post Debridement (cm) - Depth 0.3 -Total Square (Post) (cm) 0.3 -Area of Debridement (cm) - Length 1 -Area of Debridement (cm) - Width 0.3 -Total Square (Area) (cm) 0.3 -Tunneling No -Undermining/Tunneling No -Circular Undermining No -Wound/Ulcer Outcome Not Healed -Ulcer Cleansing Rinsed/ Irrigated with Saline -Foul Odor after Cleansing No -Bioengineered Tissue No -Bleeding Controlled with Pressure -Offloading No -Treatment Response Procedure Tolerated Well -Debridement - Subq, 1st 20sq cm No #1 Right lateral foot/amp site -Time 08:29 -Correct Patient Yes -Correct Side, Site, Position Yes -Correct Procedure Yes -Procedure Performed Yes -Type of Procedure Debridement -Clinical Debridement Subcutaneous -Tissue Removed Subcutaneous -Post Debridement (cm) - Length 3.8 -Post Debridement (cm) - Width 0.7 -Post Debridement (cm) - Depth 0.2 -Total Square (Post) (cm) 2.66 -Area of Debridement (cm) - Length 3.8 -Area of Debridement (cm) - Width 0.7 -Total Square (Area) (cm) 2.66 -Tunneling No -Undermining/Tunneling No -Circular Undermining No -Wound/Ulcer Outcome Not Healed -Ulcer Cleansing Rinsed/ Irrigated with Saline -Foul Odor after Cleansing No -Bioengineered Tissue Yes -Type of Bioengineered Tissue Theraskin -Expiration Date 01/05/24 -Product Lot Number [id number] -Percent Used 100 -Lot number of Saline Used [id number] -Bleeding Controlled with Pressure -Offloading Yes -Type of Offloading Surgical Shoe -Treatment Response Procedure Tolerated Well -Debridement - Subq, 1st 20sq cm No -Apply Skin Sub - 1st 25 sq cm - Legs -Apply Skin Sub - 1st 25 sq cm - Feet 1 -Theraskin (per sq cm) 13 Pain Scale: 0-10 Numeric Is Patient Pain Free? Yes WC - Nurse 3 - General Ulcer D/C NN Start: 09/10/20 10:55 Freq: Status: Active Protocol: Activity Type Activity Date Activity User E-Sign Co-Sign Detail Recorded Client Recorded Date Recorded By Document 09/10/20 12:16 DL [id number] 09/10/20 12:18 DL Document 09/17/20 11:07 MS [id number] 09/17/20 11:09 MS Document 09/24/20 11:33 JF [id number] 09/24/20 11:34 JF Document 10/01/20 08:49 BMF [id number] 10/01/20 08:49 BMF 09/10/20 09/17/20 09/24/20 12:16 11:07 11:33 Wound Care Nurse 3 3-left plantar foot -Ulcer Cleansing Not Cleansed Rinsed/ Irrigated with Saline -Foul Odor after Cleansing No No -Primary Dressing Applied C Hydrogel ($) -Other Dressing theraskin THERASKIN -Primary Dressing Covered/Secured with Dry Gauze & Dry Gauze, Dry Gauze & Roll Gauze, Secured with Roll Gauze, Secured with Tape Secured with Tape Tape 2-left dorsal foot -Ulcer Cleansing Not Cleansed Rinsed/ Irrigated with Saline -Foul Odor after Cleansing No No -Other Dressing Theraskin THERSKIN -Primary Dressing Covered/Secured with Dry Gauze & Dry Gauze, Dry Gauze & Roll Gauze, Secured with Roll Gauze, Secured with Tape Secured with Tape Tape #1 Right lateral foot/amp site -Ulcer Cleansing Not Cleansed Rinsed/ Irrigated with Saline -Foul Odor after Cleansing No No -Other Dressing Theraskin THERSKIN -Primary Dressing Covered/Secured with Dry Gauze & Dry Gauze, Dry Gauze & Roll Gauze, Secured with Roll Gauze, Secured with Tape Secured with Tape Tape -Other Covering Left -Compression Wrap Jens Wrap -Other JENS WRAP Right -Compression Wrap Jens Wrap Jens Wrap -Other JENS WRAP Treatment Response Procedure Tolerated Well Pain Scale: 0-10 Numeric Is Patient Pain Free? Yes Yes WC - Visit Discharge Discharge Condition Stable Stable Stable Ambulatory Status Ambulatory Ambulatory Ambulatory Transportation Private Auto Private Auto Medication Reconcilliation completed & No Yes provided to patient/care provider Clinical Summary of Care Provided Yes Yes Facility Type 10/01/20 08:49 Wound Care Nurse 3 3-left plantar foot -Ulcer Cleansing -Foul Odor after Cleansing -Primary Dressing Applied -Other Dressing theraskin -Primary Dressing Covered/Secured with Dry Gauze & Roll Gauze, Secured with Tape 2-left dorsal foot -Ulcer Cleansing -Foul Odor after Cleansing -Other Dressing theraskin -Primary Dressing Covered/Secured with Dry Gauze & Roll Gauze, Secured with Tape #1 Right lateral foot/amp site -Ulcer Cleansing -Foul Odor after Cleansing -Other Dressing theraskin -Primary Dressing Covered/Secured with Dry Gauze & Roll Gauze, Secured with Tape,Other -Other Covering abd Left -Compression Wrap Jens Wrap -Other Right -Compression Wrap Jens Wrap -Other Treatment Response Procedure Tolerated Well Pain Scale: 0-10 Numeric Is Patient Pain Free? Yes WC - Visit Discharge Discharge Condition Stable Ambulatory Status Ambulatory Transportation Private Auto Medication Reconcilliation completed & provided to patient/care provider Clinical Summary of Care Provided Facility Type Home Health Wound debrided: Lateral forefoot Laterality: Right Wound Grade/Stage: Sams 3 Type of Debridement: Excisional debridement Anesthesia Used: 4% Lidocaine Solution Depth: in the subcutaneous layer Percentage of wound debrided: 100 Instrument Used: 5mm curette Tissue Removed: Tissue removed includes fibrous, devitalized, biofilm, and slough tissue Severity: Fat Layer Exposed Amount of bleeding with debridement: Mild Bleeding Controlled with: Pressure Patient tolerated procedure well - Additional Wound Wound debrided: Left dorsal first interspace Laterality: Left Wound Grade/Stage: Sams 1 Type of Debridement: Excisional debridement Anesthesia Used: 4% Lidocaine Solution Depth: in the subcutaneous layer Percentage of wound debrided: 100 Instrument Used: 3mm curette Tissue Removed: Tissue removed includes fibrous, devitalized, biofilm, and slough tissue Severity: Fat Layer Exposed Amount of bleeding with debridement: Mild Bleeding Controlled with: Pressure Patient tolerated procedure: Patient tolerated procedure well - Additional Wound Wound debrided: Plantar medial forefoot Laterality: Left Wound Grade/Stage: Sams 1 Type of Debridement: Excisional debridement Anesthesia Used: 4% Lidocaine Solution Depth: in the subcutaneous layer Percentage of wound debrided: 100 Instrument Used: 3mm curette Tissue Removed: Tissue removed includes fibrous, devitalized, biofilm, and slough tissue Severity: Fat Layer Exposed Amount of bleeding with debridement: Mild Bleeding Controlled with: Pressure Patient tolerated procedure: Patient tolerated procedure well Assessment/Plan Active Problems (Last Reviewed 09/04/20 @ 09:28 by Renetta Bradley) Non-pressure chronic ulcer of other part of right foot with fat layer exposed (Chronic) Non-pressure chronic ulcer of other part of left foot with fat layer exposed (Chronic) Obese (Acute) KRYSTAL (obstructive sleep apnea) (Chronic) Bilateral lower extremity edema (Chronic) Type 2 diabetes mellitus (Chronic) Assessment: Left foot ulceration dorsal first interspace Sams 1. Left foot ucleration plantar 1st metatarsal head sams 1. Right foot plantar lateral aspect of foot status post osteomyelitis and fourth fifth ray resection Sams grade 3. dorsal right foot ulceration healed. Edema. Uncontrolled diabetes with neuropathy. Morbid obesity Plan: Patient seen and examined. Amount of edema noted to forefoot has improved. Discussed with patient that his compression needs to start just behind the toes. Patient states that he just noticed today. Advised patient to watch this and if any questions or concerns to contact the office. foot wounds were sharply debrided without incident with well tolerant by patient due to neuropathy after verbal assent obtained. Patient noted to have a last A1c of 10.3 patient relates recent blood sugars have been in the low 100s. Patient noted to have positive margins from recent surgery amputation of fourth and fifth rays right foot. Verruca changes noted to ulcer biopsy of left dorsal first interspace. Discussed with patient the importance of offloading ulcer site, good nutrition including protein vitamin C, proper blood sugar control, and proper wound care to optimize healing. Patient relates he has lost 30 pounds since being hospitalized. He admits to walking some to do this but mostly with diet. Patient relates that he is walking on his foot as little as possible when he does put any pressure he has pain which has improved. He has a cam boot. Patient was approved for TherAura Systemsin. Another graft application was carried out today. Hydrogel dressing placed to left foot ulcer. I recommend application of advanced wound healing product to the indicated ulceration. Prior authorization was confirmed. The indications, benefits, anticipated application and healing time management were reviewed in detail. Verbal consent was obtained in the procedure for today. Site was debrided and graft was applied according to standard protocol and was further secured with a Adaptic touch and Steri-Strips. Less depth noted today with granular base to left foot ulcer. Patient to follow-up in 1 week. This note was generated with [employer] dictation software. It may contain incorrect words, spelling, and punctuation that were not noted in checking the note before signing.
[2020-10-08 08:00] VITALS: BP 139/85; PULSE 96; RESP 16; BMI 47.7
--- NOTE | 2020-10-08 08:11 | WC ---
david left intact to r lat foot/amp site
--- NOTE | 2020-10-08 08:28 | PCM.WC.PN ---
(1) Non-pressure chronic ulcer of other part of left foot with fat layer exposed Status: Chronic Code(s): L97.522 - Non-pressure chronic ulcer of other part of left foot with fat layer exposed (2) Non-pressure chronic ulcer of other part of right foot with fat layer exposed Status: Chronic Code(s): L97.512 - Non-pressure chronic ulcer of other part of right foot with fat layer exposed (3) Obese Status: Acute Code(s): E66.9 - Obesity, unspecified (4) Osteomyelitis of toe of right foot Status: Resolved Code(s): M86.9 - Osteomyelitis, unspecified (5) KRYSTAL (obstructive sleep apnea) Status: Chronic Code(s): G47.33 - Obstructive sleep apnea (adult) (pediatric) (6) Bilateral lower extremity edema Status: Chronic Code(s): R60.0 - Localized edema (7) Type 2 diabetes mellitus Status: Chronic Qualifiers: Diabetes mellitus complication status: with neurologic complications Diabetes mellitus complication detail: with polyneuropathy Code(s): E11.9 - Type 2 diabetes mellitus without complications Type of Wound Date of Service: 10/08/20 Chief Complaint: Right foot plantar lateral ulceration status post fourth and fifth ray partial amputation. Left foot ulceration dorsal first interspace. Left foot plantar foot ulceration History of Wound: Patient is a 50-year-old male who presents to the wound care center for follow-up of hospital visit after surgical amputation of right fourth and fifth digits after osteomyelitis. Patient had removal of the fourth and fifth partial ray's by Dr. Ramos on 07/17/2020. Positive margins was noted on clearance fragments of right fourth and fifth rays. A biopsy was also obtained of left ulcer site near the first interspace dorsally which showed verrucual changes. Patient has large deficit to foot given removal of infection severity. Patient was on a wound VAC since discharge. Patient was discharged on levofloxacin linezolid and Flagyl. Patient states that they have largely sorted out the home health care issue with the wound VAC being applied properly but is having issues with them properly washing of the lower extremities. He has since discontinued the wound VAC. He states that the only rinse it with saline and do not use soap. Patient was approved for application of TheraSkin. Patient also has wound to the dorsal left first interspace and plantar left foot. He relates that the dorsal wound is recurrent. Patient relates weight loss which is improved his health overall. Progress of Wound: Left foot dorsal ulcer is healed. Left foot plantar ulcer has gotten smaller. Right foot ulcers stable under Steri-Strips and wound veil with graft application Subjective: Patient seen and examined resting comfortably. Patient denies any new pedal complaints. Patient denies any nausea, fever, chills, chest pain, shortness of breath, cough, streaking, purulence, vomiting. - Physical Exam Vital Signs Temp Pulse Resp BP 99.1 F 96 16 139/85 H 10/01/20 08:03 10/08/20 08:00 10/08/20 08:00 10/08/20 08:00 General: Alert, Oriented x3 HEENT: Atraumatic Abdomen: Obese Extremities: No clubbing, No cyanosis, Capillary Refill Less than 3 Seconds, No Calf Tenderness, Diminished Peripheral Pulses, Edema Skin: Ulcer/ Wound - Right lateral foot with graft secured with Adaptic touch and Steri-Strips. Left dorsal first interspace ulceration noted to be healed. Left plantar medial foot ulceration no malodor, erythema, purulence, probing to bone, streaking, fluctuation, crepitus, or other signs of infection., - - Skin is atrophic and hairless Wound Measurements and Assessment WC - Nurse 1 - General Ulcer Measurement Start: 09/10/20 10:55 Freq: Status: Active Protocol: Activity Type Activity Date Activity User E-Sign Co-Sign Detail Recorded Client Recorded Date Recorded By Document 10/08/20 08:00 [facility] [id number] 10/08/20 08:10 [facility] 10/08/20 08:00 Wound Center Nurse 1 [Ulcer Assessment] 3-left plantar foot -Combined with other wound No -Current Size (cm) - Length 0.2 -Current Size (cm) - Width 0.2 -Current Size (cm) - Depth 0.5 -Total Square Cm 0.04 -Epithelialization Large 67-100% -Tunneling No -Undermining/Tunneling Yes -Undermining/Tunneling Starts (O' 12 clock) -Undermining/Tunneling Ends (O'clock) 12 -Maximum Distance (cm) 0.3 -Circular Undermining Yes -Exudate Amt None Present -Wound Margin Distinct, Outline Attached -Granulation Amt None Present (0 %) -Slough/Fibrin Yes -Necrosis Amt Large (67-100%) -Necrotic Tissue Type Adherent Slough -Texture (Michelle-wound Skin Appearance) Assessed,Callus -Moisture (Michelle-wound Skin Appearance Assessed,Dry/ ) Scaly -Color (Michelle-wound Skin Appearance) Assessed -Temperature (Michelle-wound Skin No Abnormality Appearance) (Pt Warm) -Tenderness on Palpation (Michelle-wound No Skin Appearance) -Ulcer Cleansing soapy water -Foul Odor after Cleansing No -Anesthetic Used 5% Lidocaine Gel 2-left dorsal foot -Combined with other wound No -Current Size (cm) - Length 0.1 -Current Size (cm) - Width 0.1 -Current Size (cm) - Depth 0.1 -Total Square Cm 0.01 -Epithelialization Large 67-100% -Tunneling No -Undermining/Tunneling No -Circular Undermining No -Exudate Amt None Present -Texture (Michelle-wound Skin Appearance) Assessed, Scarring -Moisture (Michelle-wound Skin Appearance Assessed ) -Color (Michelle-wound Skin Appearance) Assessed -Temperature (Michelle-wound Skin No Abnormality Appearance) (Pt Warm) -Tenderness on Palpation (Michelle-wound No Skin Appearance) -Ulcer Cleansing soapy water -Foul Odor after Cleansing No -Anesthetic Used 5% Lidocaine Gel #1 Right lateral foot/amp site -Combined with other wound No -Current Size (cm) - Length 0.1 -Current Size (cm) - Width 0.1 -Current Size (cm) - Depth 0.1 -Total Square Cm 0.01 -Texture (Michelle-wound Skin Appearance) Assessed -Moisture (Michelle-wound Skin Appearance Assessed ) -Color (Michelle-wound Skin Appearance) Assessed WC - Nurse 2 - General Ulcer CM Notes Start: 09/10/20 10:55 Freq: Status: Active Protocol: Activity Type Activity Date Activity User E-Sign Co-Sign Detail Recorded Client Recorded Date Recorded By Document 10/08/20 08:25 JERSON [id number] 10/08/20 08:27 JERSON 10/08/20 08:25 Wound Center Nurse 2 [Procedure/Treatment] 3-left plantar foot -Time 08:25 -Correct Patient Yes -Correct Side, Site, Position Yes -Correct Procedure Yes -Procedure Performed Yes -Type of Procedure Debridement -Clinical Debridement Subcutaneous -Tissue Removed Subcutaneous -Post Debridement (cm) - Length 0.1 -Post Debridement (cm) - Width 0.1 -Post Debridement (cm) - Depth 0.1 -Total Square (Post) (cm) 0.01 -Area of Debridement (cm) - Length 0.1 -Area of Debridement (cm) - Width 0.1 -Total Square (Area) (cm) 0.01 -Tunneling No -Undermining/Tunneling No -Circular Undermining No -Wound/Ulcer Outcome Not Healed -Ulcer Cleansing Rinsed/ Irrigated with Saline -Foul Odor after Cleansing No -Bioengineered Tissue No -Bleeding Controlled with Pressure -Offloading No -Treatment Response Procedure Tolerated Well -Debridement - Subq, 1st 20sq cm Yes 2-left dorsal foot -Correct Patient No -Correct Side, Site, Position No -Correct Procedure No -Procedure Performed No -Post Debridement (cm) - Length 0 -Post Debridement (cm) - Width 0 -Post Debridement (cm) - Depth 0 -Total Square (Post) (cm) 0 -Area of Debridement (cm) - Length 0 -Area of Debridement (cm) - Width 0 -Total Square (Area) (cm) 0 -Wound/Ulcer Outcome Healed- Epithelialized #1 Right lateral foot/amp site -Correct Patient No -Correct Side, Site, Position No -Correct Procedure No -Procedure Performed No -Wound/Ulcer Outcome Not Healed [See Physician Procedure note for Specifics] Pain Scale: 0-10 Numeric [Pain] -Is Patient Pain Free? Yes Musculoskeletal: No Tenderness to Palpation of Joints or Extremities, - - Multiple toe amputations noted Neurological: - - Decrease in epicritic sensation consistent with neuropathy Psych/Mental Status: Normal Affect, Appropriate Debridement Note Post-Debridement Measurements/Treatment WC - Nurse 2 - General Ulcer CM Notes Start: 09/10/20 10:55 Freq: Status: Active Protocol: Activity Type Activity Date Activity User E-Sign Co-Sign Detail Recorded Client Recorded Date Recorded By Document 09/10/20 11:43 JERSON [id number] 09/10/20 12:01 Document 09/17/20 10:48 JERSON [id number] 09/17/20 11:01 Document 09/24/20 10:27 JERSON [id number] 09/24/20 10:35 Document 10/01/20 08:26 JERSON [id number] 10/01/20 08:34 Document 10/08/20 08:25 [id number] 10/08/20 08:27 JF 09/10/20 09/17/20 09/24/20 11:43 10:48 10:27 Wound Center Nurse 2 3-left plantar foot -Time 12:01 10:59 10:34 -Correct Patient Yes Yes Yes -Correct Side, Site, Position Yes Yes Yes -Correct Procedure Yes Yes Yes -Procedure Performed Yes Yes Yes -Type of Procedure Debridement Debridement Debridement -Clinical Debridement Subcutaneous Subcutaneous Subcutaneous -Tissue Removed Subcutaneous Subcutaneous Subcutaneous -Post Debridement (cm) - Length 0.5 0.5 0.3 -Post Debridement (cm) - Width 0.5 0.5 0.3 -Post Debridement (cm) - Depth 0.5 0.5 0.2 -Total Square (Post) (cm) 0.25 0.25 0.09 -Area of Debridement (cm) - Length 0.5 0.5 0.3 -Area of Debridement (cm) - Width 0.5 0.5 0.3 -Total Square (Area) (cm) 0.25 0.25 0.09 -Tunneling No No No -Undermining/Tunneling No No No -Circular Undermining No No No -Wound/Ulcer Outcome Not Healed Not Healed Not Healed -Ulcer Cleansing Rinsed/ Rinsed/ Rinsed/ Irrigated with Irrigated with Irrigated with Saline Saline Saline -Foul Odor after Cleansing No No No -Bioengineered Tissue No No No -Bleeding Controlled with Pressure Pressure Pressure -Offloading No No No -Treatment Response Procedure Procedure Procedure Tolerated Well Tolerated Well Tolerated Well -Debridement - Subq, 1st 20sq cm No Yes Yes 2-left dorsal foot -Time 11:47 10:49 -Correct Patient Yes Yes No -Correct Side, Site, Position Yes Yes No -Correct Procedure Yes Yes No -Procedure Performed Yes Yes No -Type of Procedure Debridement Debridement -Clinical Debridement Subcutaneous Subcutaneous -Tissue Removed Subcutaneous Subcutaneous -Post Debridement (cm) - Length 0.8 0.1 -Post Debridement (cm) - Width 0.2 0.1 -Post Debridement (cm) - Depth 0.2 0.1 -Total Square (Post) (cm) 0.16 0.01 -Area of Debridement (cm) - Length 0.8 0.1 -Area of Debridement (cm) - Width 0.2 0.1 -Total Square (Area) (cm) 0.16 0.01 -Tunneling No No -Undermining/Tunneling No No -Circular Undermining No No -Wound/Ulcer Outcome Not Healed Not Healed -Ulcer Cleansing Rinsed/ Rinsed/ Irrigated with Irrigated with Saline Saline -Foul Odor after Cleansing No No -Bioengineered Tissue No No -Bleeding Controlled with Pressure Pressure -Offloading No No -Treatment Response Procedure Procedure Tolerated Well Tolerated Well -Debridement - Subq, 1st 20sq cm Yes No #1 Right lateral foot/amp site -Time 11:43 10:50 -Correct Patient Yes Yes No -Correct Side, Site, Position Yes Yes No -Correct Procedure Yes Yes No -Procedure Performed Yes Yes No -Type of Procedure Debridement Debridement -Clinical Debridement Subcutaneous Subcutaneous -Tissue Removed Subcutaneous Subcutaneous -Post Debridement (cm) - Length 7 4 -Post Debridement (cm) - Width 2 1.5 -Post Debridement (cm) - Depth 0.2 0.1 -Total Square (Post) (cm) 14 6.0 -Area of Debridement (cm) - Length 7 4 -Area of Debridement (cm) - Width 2 1.5 -Total Square (Area) (cm) 14 6.0 -Tunneling No No -Undermining/Tunneling No No -Circular Undermining No No -Wound/Ulcer Outcome Not Healed Not Healed Not Healed -Ulcer Cleansing Rinsed/ Rinsed/ Irrigated with Irrigated with Saline Saline -Foul Odor after Cleansing No No -Bioengineered Tissue Yes Yes -Type of Bioengineered Tissue Theraskin Theraskin -Expiration Date 02/25/25 12/25/23 -Product Lot Number [id number] -Percent Used 100 100 -Lot number of Saline Used [id number] -Bleeding Controlled with Pressure Pressure -Offloading Yes Yes -Type of Offloading Camwalker Camwalker -Treatment Response Procedure Procedure Tolerated Well Tolerated Well -Debridement - Subq, 1st 20sq cm No No -Apply Skin Sub - 1st 25 sq cm - Legs 1 -Apply Skin Sub - 1st 25 sq cm - Feet 1 -Theraskin (per sq cm) 39 13 Pain Scale: 0-10 Numeric Is Patient Pain Free? Yes Yes Yes 10/01/20 10/08/20 08:26 08:25 Wound Center Nurse 2 3-left plantar foot -Time 08:28 08:25 -Correct Patient Yes Yes -Correct Side, Site, Position Yes Yes -Correct Procedure Yes Yes -Procedure Performed Yes Yes -Type of Procedure Debridement Debridement -Clinical Debridement Subcutaneous Subcutaneous -Tissue Removed Subcutaneous Subcutaneous -Post Debridement (cm) - Length 0.4 0.1 -Post Debridement (cm) - Width 0.4 0.1 -Post Debridement (cm) - Depth 0.3 0.1 -Total Square (Post) (cm) 0.16 0.01 -Area of Debridement (cm) - Length 0.4 0.1 -Area of Debridement (cm) - Width 0.4 0.1 -Total Square (Area) (cm) 0.16 0.01 -Tunneling No No -Undermining/Tunneling No No -Circular Undermining No No -Wound/Ulcer Outcome Not Healed Not Healed -Ulcer Cleansing Rinsed/ Rinsed/ Irrigated with Irrigated with Saline Saline -Foul Odor after Cleansing No No -Bioengineered Tissue No No -Bleeding Controlled with Pressure Pressure -Offloading No No -Treatment Response Procedure Procedure Tolerated Well Tolerated Well -Debridement - Subq, 1st 20sq cm Yes Yes 2-left dorsal foot -Time 08:29 -Correct Patient Yes No -Correct Side, Site, Position Yes No -Correct Procedure Yes No -Procedure Performed Yes No -Type of Procedure Debridement -Clinical Debridement Subcutaneous -Tissue Removed Subcutaneous -Post Debridement (cm) - Length 1 0 -Post Debridement (cm) - Width 0.3 0 -Post Debridement (cm) - Depth 0.3 0 -Total Square (Post) (cm) 0.3 0 -Area of Debridement (cm) - Length 1 0 -Area of Debridement (cm) - Width 0.3 0 -Total Square (Area) (cm) 0.3 0 -Tunneling No -Undermining/Tunneling No -Circular Undermining No -Wound/Ulcer Outcome Not Healed Healed- Epithelialized -Ulcer Cleansing Rinsed/ Irrigated with Saline -Foul Odor after Cleansing No -Bioengineered Tissue No -Bleeding Controlled with Pressure -Offloading No -Treatment Response Procedure Tolerated Well -Debridement - Subq, 1st 20sq cm No #1 Right lateral foot/amp site -Time 08:29 -Correct Patient Yes No -Correct Side, Site, Position Yes No -Correct Procedure Yes No -Procedure Performed Yes No -Type of Procedure Debridement -Clinical Debridement Subcutaneous -Tissue Removed Subcutaneous -Post Debridement (cm) - Length 3.8 -Post Debridement (cm) - Width 0.7 -Post Debridement (cm) - Depth 0.2 -Total Square (Post) (cm) 2.66 -Area of Debridement (cm) - Length 3.8 -Area of Debridement (cm) - Width 0.7 -Total Square (Area) (cm) 2.66 -Tunneling No -Undermining/Tunneling No -Circular Undermining No -Wound/Ulcer Outcome Not Healed Not Healed -Ulcer Cleansing Rinsed/ Irrigated with Saline -Foul Odor after Cleansing No -Bioengineered Tissue Yes -Type of Bioengineered Tissue Theraskin -Expiration Date 01/05/24 -Product Lot Number [id number] -Percent Used 100 -Lot number of Saline Used [id number] -Bleeding Controlled with Pressure -Offloading Yes -Type of Offloading Surgical Shoe -Treatment Response Procedure Tolerated Well -Debridement - Subq, 1st 20sq cm No -Apply Skin Sub - 1st 25 sq cm - Legs -Apply Skin Sub - 1st 25 sq cm - Feet 1 -Theraskin (per sq cm) 13 Pain Scale: 0-10 Numeric Is Patient Pain Free? Yes Yes WC - Nurse 3 - General Ulcer D/C NN Start: 09/10/20 10:55 Freq: Status: Active Protocol: Activity Type Activity Date Activity User E-Sign Co-Sign Detail Recorded Client Recorded Date Recorded By Document 09/10/20 12:16 DL [id number] 09/10/20 12:18 DL Document 09/17/20 11:07 MS [id number] 09/17/20 11:09 MS Document 09/24/20 11:33 [id number] 09/24/20 11:34 JF Document 10/01/20 08:49 [facility] [id number] 10/01/20 08:49 BM 09/10/20 09/17/20 09/24/20 12:16 11:07 11:33 Wound Care Nurse 3 3-left plantar foot -Ulcer Cleansing Not Cleansed Rinsed/ Irrigated with Saline -Foul Odor after Cleansing No No -Primary Dressing Applied C Hydrogel ($) -Other Dressing theraskin THERASKIN -Primary Dressing Covered/Secured with Dry Gauze & Dry Gauze, Dry Gauze & Roll Gauze, Secured with Roll Gauze, Secured with Tape Secured with Tape Tape 2-left dorsal foot -Ulcer Cleansing Not Cleansed Rinsed/ Irrigated with Saline -Foul Odor after Cleansing No No -Other Dressing Theraskin THERSKIN -Primary Dressing Covered/Secured with Dry Gauze & Dry Gauze, Dry Gauze & Roll Gauze, Secured with Roll Gauze, Secured with Tape Secured with Tape Tape #1 Right lateral foot/amp site -Ulcer Cleansing Not Cleansed Rinsed/ Irrigated with Saline -Foul Odor after Cleansing No No -Other Dressing Theraskin THERSKIN -Primary Dressing Covered/Secured with Dry Gauze & Dry Gauze, Dry Gauze & Roll Gauze, Secured with Roll Gauze, Secured with Tape Secured with Tape Tape -Other Covering Left -Compression Wrap Jens Wrap -Other JENS WRAP Right -Compression Wrap Jens Wrap Jens Wrap -Other JENS WRAP Treatment Response Procedure Tolerated Well Pain Scale: 0-10 Numeric Is Patient Pain Free? Yes Yes WC - Visit Discharge Discharge Condition Stable Stable Stable Ambulatory Status Ambulatory Ambulatory Ambulatory Transportation Private Auto Private Auto Medication Reconcilliation completed & No Yes provided to patient/care provider Clinical Summary of Care Provided Yes Yes Facility Type 10/01/20 08:49 Wound Care Nurse 3 3-left plantar foot -Ulcer Cleansing -Foul Odor after Cleansing -Primary Dressing Applied -Other Dressing theraskin -Primary Dressing Covered/Secured with Dry Gauze & Roll Gauze, Secured with Tape 2-left dorsal foot -Ulcer Cleansing -Foul Odor after Cleansing -Other Dressing theraskin -Primary Dressing Covered/Secured with Dry Gauze & Roll Gauze, Secured with Tape #1 Right lateral foot/amp site -Ulcer Cleansing -Foul Odor after Cleansing -Other Dressing theraskin -Primary Dressing Covered/Secured with Dry Gauze & Roll Gauze, Secured with Tape,Other -Other Covering abd Left -Compression Wrap Jens Wrap -Other Right -Compression Wrap Jens Wrap -Other Treatment Response Procedure Tolerated Well Pain Scale: 0-10 Numeric Is Patient Pain Free? Yes WC - Visit Discharge Discharge Condition Stable Ambulatory Status Ambulatory Transportation Private Auto Medication Reconcilliation completed & provided to patient/care provider Clinical Summary of Care Provided Facility Type Home Health Wound debrided: Plantar medial forefoot Laterality: Left Wound Grade/Stage: Sams 1 Type of Debridement: Excisional debridement Anesthesia Used: 4% Lidocaine Solution Depth: in the subcutaneous layer Percentage of wound debrided: 100 Instrument Used: 3mm curette Tissue Removed: Tissue removed includes fibrous, devitalized, biofilm, and slough tissue Severity: Fat Layer Exposed Bleeding Controlled with: Pressure Patient tolerated procedure well Assessment/Plan Active Problems (Last Reviewed 09/04/20 @ 09:28 by Renetta Bradley) Non-pressure chronic ulcer of other part of right foot with fat layer exposed (Chronic) Non-pressure chronic ulcer of other part of left foot with fat layer exposed (Chronic) Obese (Acute) KRYSTAL (obstructive sleep apnea) (Chronic) Bilateral lower extremity edema (Chronic) Type 2 diabetes mellitus (Chronic) Assessment: Left foot ulceration dorsal first interspace Sams 1-healed. Left foot ucleration plantar 1st metatarsal head sams 1. Right foot plantar lateral aspect of foot status post osteomyelitis and fourth fifth ray resection Sams grade 3. dorsal right foot ulceration healed. Edema. Uncontrolled diabetes with neuropathy. Morbid obesity Plan: Patient seen and examined. foot wounds were sharply debrided without incident with well tolerant by patient due to neuropathy after verbal assent obtained. Right foot graft was left intact resecured with more Steri-Strips. Patient noted to have a last A1c of 10.3 patient relates recent blood sugars have been in the low 100s. Patient noted to have positive margins from recent surgery amputation of fourth and fifth rays right foot. Verruca changes noted to ulcer biopsy of left dorsal first interspace. Discussed with patient the importance of offloading ulcer site, good nutrition including protein vitamin C, proper blood sugar control, and proper wound care to optimize healing. Patient relates he has lost 30 pounds since being hospitalized. He admits to walking some to do this but mostly with diet. Patient relates that he is walking on his foot as little as possible when he does put any pressure he has pain which has improved. He has a cam boot. Patient was approved for TheraSkin. TheraSkin dressing was clean dry intact to right foot. Hydrogel dressing placed to left foot ulcer. Less depth noted today with granular base to left foot plantar ulcer. Dorsal left foot ulcer has healed. Patient to follow-up in 1 week. This note was generated with [employer] software. It may contain incorrect words, spelling, and punctuation that were not noted in checking the note before signing.
== END 2020-10-09 23:59 ==
LOC: WC 08:00
PROVIDERS: PCP Internal Medicine; Referring Provider Podiatrist; Visit Provider Podiatrist Foot & Ankle Surgery
DX: E11.621 Type 2 diabetes mellitus with foot ulcer (principal); L97.512 Non-pressure chronic ulcer of other part of right foot with fat layer exposed; L97.522 Non-pressure chronic ulcer of other part of left foot with fat layer exposed; E11.40 Type 2 diabetes mellitus with diabetic neuropathy, unspecified; G47.33 Obstructive sleep apnea (adult) (pediatric); R60.0 Localized edema; E66.01 Morbid (severe) obesity due to excess calories; Z89.421 Acquired absence of other right toe(s)
CPT/HCPCS: 11042; 15271; 15275; Q4121

== ENCOUNTER 2020-10-28 19:26 | Emergency (ER) | payer MEDICAID, SELFPAY ==
[2020-10-22 08:02] VITALS: BMI 47.7
[2020-10-28 19:27] VITALS: BP 156/93; PULSE 100; RESP 18; TEMP 36.3; O2SAT 99; BMI 41.1
--- NOTE | 2020-10-28 19:53 | ED.VIS.GEN ---
History of Present Illness Chief Complaint: Lower Extremity Injury Informant: Patient Narrative: 50-year-old male presenting with right foot pain. He states he had surgery on this a couple of months ago. Patient states that he had amputations of his lateral foot and toes. Patient states he was previously on Nazlini and antibiotics however he has recovered. He notes pain with ambulation especially with weightbearing. He states he feels better when it is elevated. Patient states that he has no new trauma that he knows of. He is in a walking boot. Patient has been seen by wound care. His home health care nurse came today and dressed his wound. She stated that his wound looks fine. He continued to complain of pain and then sent to the ER. He no longer has any pain medication that is narcotic. Patient states he feels otherwise well has not had fever, chills, nausea, vomiting. He denies any calf pain. Past Medical History - Allergies and Home Meds Allergies/Adverse Reactions: Allergies ketorolac [From Toradol] Adverse Reaction (Verified 10/28/20 19:29) Upset Stomach NSAIDS (Non-Steroidal Anti-Inflamma Adverse Reaction (Verified 10/28/20 19:29) Upset Stomach Primary Care Physician: Gavin Raymundo MD [Primary Care Provider] - Prior records reviewed: Yes Past Medical History: - - Osteomyelitis, obstructive sleep apnea, hypertension, diabetes, history of DVT on Eliquis. Surgical History: - - Right fourth fifth ray amputation partial Lives: Alone Smoking Status: Current some day smoker Alcohol: None Drugs: None - Family History Paternal Family History: Family History (Last Reviewed 09/04/20 @ 09:28 by Renetta Bradley) Mother Hypertension Diabetes Heart disease Sister Hypertension Diabetes Crohns disease Brother Diabetes Family History: Reports: - - Denies known paternal medical history including cardiac history. Review of Systems General: Denies: Chills, Fever, Sweats Eyes: Denies: Visual changes - bilaterally, Diplopia ENT: Denies: Rhinorrhea, Sore throat Cardiovascular: Denies: Chest pain, Palpitations Respiratory: Denies: Dyspnea, Cough, Dyspnea on exertion Gastrointestinal: Denies: Abdominal pain, Nausea, Vomiting, Diarrhea, Melena, Hematochezia Genitourinary: Denies: Dysuria, Hematuria, Frequency Musculoskeletal: Reports: Extremity Pain - Right foot. Denies: Neck pain, Back pain Skin: Reports: -. Denies: Rash, Abscess Neurological: Denies: Headache, Weakness, Numbness Psych: Denies: Depression, Anxiety, Suicidal thoughts, Suicidal ideations, -, - Physical Exam Vital Signs/Narrative: Vital Signs Temp Pulse Resp BP Pulse Ox 10/28/20 19:27 97.3 F L 100 18 156/93 H 99 Inital Vital Signs reviewed: Yes General: Obese, No Acute Distress Head: Normocephalic, Atraumatic Eyes: Perrl, EOMI ENT: Moist mucous membranes, Sinus tenderness Neck: Supple Cardiovascular: Regular rate, Regular rhythm Respiratory: No distress, CTA bilaterally Extremities: - - Tenderness palpation on the plantar surface of the distal right foot. DP/PT +2/4 and symmetric bilaterally. Sensation intact. There is tenderness to palpation over previous surgical site. There is no drainage or discharge from the site. There is no cellulitic change. Skin: Negative for: Cyanosis, Diaphoresis Neurological: Alert, Oriented x3, Cranial nerves II-XII grossly intact Psychological: Normal affect, Normal Mood Diagnostic/Tx/Re-eval Clinical Impression(s) from Imaging Studies Foot X-Ray 10/28/20 20:15 IMPRESSION: New erosive changes of the bases of the first through fifth metatarsals as well as widening of the first tarsometatarsal joint. This is concerning for osteomyelitis and septic arthritis. Status post amputation of the second, fourth and fifth rays. Electronically Signed: Julio C Santiago MD at 20:53 EDT Tel , Service support , Laboratory Data 10/28/20 10/28/20 10/28/20 20:15 20:15 20:15 WBC 10.4 RBC 5.31 Hgb 13.3 Hct 43.1 MCV 81.2 MCH 25.0 L MCHC 30.9 L RDW Std Deviation 43.8 RDW Coeff of Maria Fernanda 14.8 H Plt Count 327 MPV 11.5 Immature Gran % (Auto) 1.400 H Neut % (Auto) 74.9 H Lymph % (Auto) 13.6 L [place] % (Auto) 7.1 Eos % (Auto) 2.4 Baso % (Auto) 0.6 Absolute Neuts (auto) 7.8 H Absolute Lymphs (auto) 1.42 Nucleated RBC % 0 ESR > 130 H Sodium 133 L Potassium 4.2 Chloride 100 Carbon Dioxide 30.0 Anion Gap 3 L BUN 6 L Creatinine 0.87 Estim Creat Clear Calc 108.19 Est GFR (MDRD) Af Amer 120 Est GFR (MDRD) Non-Af 99 BUN/Creatinine Ratio 6.9 L Glucose 121 H Calcium 9.3 C-React Prot Ext Range 10/28/20 20:15 WBC RBC Hgb Hct MCV MCH MCHC RDW Std Deviation RDW Coeff of Maria Fernanda Plt Count MPV Immature Gran % (Auto) Neut % (Auto) Lymph % (Auto) [place] % (Auto) Eos % (Auto) Baso % (Auto) Absolute Neuts (auto) Absolute Lymphs (auto) Nucleated RBC % ESR Sodium Potassium Chloride Carbon Dioxide Anion Gap BUN Creatinine Estim Creat Clear Calc Est GFR (MDRD) Af Amer Est GFR (MDRD) Non-Af BUN/Creatinine Ratio Glucose Calcium C-React Prot Ext Range 96.00 H - Medical Decision Making 2-year-old male presenting with right foot pain. He has had amputation of the distal foot partially previously by Dr. Ramos. Patient states his pain initially improved however now is worse. He denies any fever, chills, systemic signs or symptoms. He had lab work shows no leukocytosis. Renal function electrolytes unremarkable. His CRP and sed rate are both elevated. Patient has no obvious open wound or fluctuant mass. Patient has x-ray of the right foot which shows inflammatory changes at the bases of the first through fifth metatarsals as well as slight widening of the first metatarsal as interpreted by myself and radiology does agree. Patient was discussed with Dr. Ramos who reviewed the x-rays and felt as if the patient has Charcot foot. He has an appointment with Dr. Garduno tomorrow and he is to keep this appointment. He did recommend the patient go home on doxycycline 100 mg p.o. twice daily as well as Augmentin 875 mg twice daily. Patient is to be strictly nonweightbearing on the right foot. I did confirm he has a wheelchair at home. Patient given return precautions. He stable at discharge. Impression: 1. Charcot foot ED Disposition - Plan for ED Patient: Disposition: Home or Assisted Living Instructions: What Is Charcot Foot?, Osteomyelitis Prescriptions: Amox/Clavulanate Tablet [Augmentin Tablet] 875 mg PO Q12H #20 tab Prescription Printed Doxycycline 100 mg PO BID #20 capsule Prescription Printed Hydrocodone Bitart/Apap 5-325 [Nazlini 5MG-325MG] 1 tablet PO Q6H PRN PRN 3 Days #12 tab PRN Reason: Pain Prescription Printed Referrals: Gavin Raymundo MD [Primary Care Provider] -
--- NOTE | 2020-10-28 20:15 | RAD_ITS ---
INDICATION: foot pain EXAMINATION/TECHNIQUE: X-RAY - RIGHT XR Foot Min 3 Views COMPARISON: 07/17/2020. FINDINGS: Status post amputation of the fourth and fifth metatarsals and digits, just beyond the metatarsal bases. Status post amputation of the second digit. Since prior study, there are erosive changes of the bases of the first through fifth metatarsals as well as widening of the first tarsometatarsal joint. RAD/Foot min 3 Views IMPRESSION: New erosive changes of the bases of the first through fifth metatarsals as well as widening of the first tarsometatarsal joint. This is concerning for osteomyelitis and septic arthritis. Status post amputation of the second, fourth and fifth rays. Electronically Signed: Julio C Santiago MD at 20:53 EDT Tel , Service support ,
[2020-10-28 20:20] LABS: Absolute Lymphocyte Count 1.42 X10^3/uL (0.83-4.51); Absolute Neutrophil Count 7.8 X10^3/uL (2.0-7.7); Basophil# 0.06 X10^3/uL; Basophil% 0.6 % (0-1); Eosinophil# 0.25 X10^3/uL; Eosinophils% 2.4 % (0-5); Hematocrit 43.1 % (40-54); Hemoglobin 13.3 g/dL (13.0-16.5); Lymphocyte # 1.42 X10^3/ul (0.83-4.51); Lymphocyte % 13.6 % (19-41); Mean Corp Hgb Conc 30.9 g/dL (32-36); Mean Corpuscular Volume 81.2 fL (80-94); Mean Platelet Vol. 11.5 fl (6.2-12.0); Monocyte# 0.74 X10^3/uL; Monocyte% 7.1 % (0-10); NRBC Flagged by Analyzer 0 % (0-5); Neutrophil # 7.82 X10^3/uL (2.7-7.7); Neutrophil % 74.9 % (47-70); Platelet Count 327 K/mm3 (150-450); RBC Distribution Width CV 14.8 % (11.6-14.6); RBC Distribution Width SD 43.8 fl (35.1-43.9); Red Blood Count 5.31 M/mm3 (4.6-6.2); White Blood Count 10.4 K/mm3 (4.4-11.0)
[2020-10-28] MEDS: Ondansetron 4 MG/2 ML Vial IV (20:25)
[2020-10-28] MEDS: Morphine 4 MG/ML Syringe IV (20:27)
[2020-10-28 20:43] LABS: Anion Gap 3 (5-15); BUN 6 mg/dL (7-18); BUN/Creat Ratio 6.9 RATIO (10-20); Calcium,Total 9.3 mg/dL (8.5-10.1); Chloride 100 mmol/L (98-107); Creatinine, Serum 0.87 mg/dL (0.70-1.30); EST Glomerular Filtration Rate 99 mL/min (>60); Est Glom Filt Rate - Afr Amer 120 mL/min (>60); Estimated Creatinine Clearance 108.19 ml/min; Glucose 121 mg/dL (74-106); Potassium 4.2 mmol/L (3.5-5.1); Sodium Level 133 mmol/L (136-145)
[2020-10-28 21:52] LABS: Erythrocyte Sedimentation Rate > 130 mm/hr (0-20)
[2020-10-28] MEDS: Amox/Clavulanate 875 MG Tablet PO (22:08)
[2020-10-28] MEDS: Doxycycline 100 MG CAPSULE PO (22:08)
== END 2020-10-28 22:12 | disposition home or self-care (01) ==
PROVIDERS: Emergency Provider Student in an Organized Health Care Education/Training Program; PCP Internal Medicine
DX: A52.16 Charcot's arthropathy (tabetic) (principal); E66.9 Obesity, unspecified; G47.33 Obstructive sleep apnea (adult) (pediatric); I10 Essential (primary) hypertension; E11.9 Type 2 diabetes mellitus without complications; Z82.49 Family history of ischemic heart disease and other diseases of the circulatory system; Z83.3 Family history of diabetes mellitus; Z86.718 Personal history of other venous thrombosis and embolism; Z88.6 Allergy status to analgesic agent
CPT/HCPCS: 73630; 80048; 85025; 85652; 86140; 99285; A4216; J2405

== ENCOUNTER 2020-10-29 08:00 | Outpatient (RCR) | payer MEDICAID, SELFPAY ==
[2020-10-10 00:41] VITALS: BP 139/85; PULSE 96; RESP 16; TEMP 37.3
[2020-10-15 07:57] VITALS: BP 160/94; PULSE 106; RESP 16; TEMP 37; BMI 47.7
--- NOTE | 2020-10-15 08:24 | PCM.WC.PN ---
(1) Non-pressure chronic ulcer of other part of right foot with fat layer exposed Status: Chronic Code(s): L97.512 - Non-pressure chronic ulcer of other part of right foot with fat layer exposed (2) Non-pressure chronic ulcer of other part of left foot with fat layer exposed Status: Resolved Code(s): L97.522 - Non-pressure chronic ulcer of other part of left foot with fat layer exposed (3) Obese Status: Chronic Code(s): E66.9 - Obesity, unspecified (4) Osteomyelitis of toe of right foot Status: Resolved Code(s): M86.9 - Osteomyelitis, unspecified (5) Bilateral lower extremity edema Status: Chronic Code(s): R60.0 - Localized edema (6) Type 2 diabetes mellitus Status: Chronic Code(s): E11.9 - Type 2 diabetes mellitus without complications (7) History of amputation of foot Status: Chronic Code(s): Z89.439 - Acquired absence of unspecified foot Type of Wound Date of Service: 10/15/20 Chief Complaint: Right foot plantar lateral ulceration status post fourth and fifth ray partial amputation. Left foot ulceration dorsal first interspace-healed. Left foot plantar foot ulceration-healed History of Wound: Patient is a 50-year-old male who presents to the wound care center for follow-up of hospital visit after surgical amputation of right fourth and fifth digits after osteomyelitis. Patient had removal of the fourth and fifth partial ray's by Dr. Ramos on 07/17/2020. Positive margins was noted on clearance fragments of right fourth and fifth rays. A biopsy was also obtained of left ulcer site near the first interspace dorsally which showed verrucual changes. Patient has large deficit to foot given removal of infection severity. Patient was on a wound VAC since discharge. Patient was discharged on levofloxacin linezolid and Flagyl. Patient states that they have largely sorted out the home health care issue with the wound VAC being applied properly but is having issues with them properly washing of the lower extremities. He has since discontinued the wound VAC. He states that the only rinse it with saline and do not use soap. Patient was approved for application of TheraSkin. Patient relates weight loss which is improved his health overall. Progress of Wound: Left foot dorsal ulcer is healed. Left foot plantar ulcer has healed. Right foot ulcers much improved smaller appearance. Subjective: Patient seen and examined resting comfortably. Patient denies any new pedal complaints. Patient denies any nausea, fever, chills, chest pain, shortness of breath, cough, streaking, purulence, vomiting. No new pedal complaints. He does state that his toe mouth. Has not been putting the compression up to his knees - Physical Exam Vital Signs Temp Pulse Resp BP 98.6 F 106 H 16 160/94 H 10/15/20 07:57 10/15/20 07:57 10/15/20 07:57 10/15/20 07:57 General: Alert, Oriented x3 HEENT: Atraumatic Abdomen: Obese Extremities: No clubbing, No cyanosis, Capillary Refill Less than 3 Seconds, No Calf Tenderness, Diminished Peripheral Pulses, Edema - Noted cut off of compression to mid ghosh. Right worse than left. Right lower extremity is Bonnick parents due to this. Compression is helping though it needs to be placed from toes to knees Skin: Ulcer/ Wound - Right lateral foot. No malodor, erythema, purulence, probing to bone, streaking, fluctuation, crepitus, or other signs of infection. Skin is atrophic and hairless. Granular base wound is noted to have decreased in size., - - Ulceration to left dorsal first interspace and plantar medial forefoot have healed. Wound Measurements and Assessment WC - Nurse 1 - General Ulcer Measurement Start: 10/15/20 07:57 Freq: Status: Active Protocol: Activity Type Activity Date Activity User E-Sign Co-Sign Detail Recorded Client Recorded Date Recorded By Document 10/15/20 07:57 [facility] [id number] 10/15/20 08:09 [facility] 10/15/20 07:57 Wound Center Nurse 1 [Ulcer Assessment] 3-left plantar foot -Combined with other wound No -Current Size (cm) - Length 0.1 -Current Size (cm) - Width 0.1 -Current Size (cm) - Depth 0.2 -Total Square Cm 0.01 -Photo Taken No -Epithelialization None Present -Tunneling No -Undermining/Tunneling No -Circular Undermining No -Exudate Amt None Present -Wound Margin Distinct, Outline Attached -Granulation Amt None Present (0 %) -Slough/Fibrin Yes -Necrosis Amt Small (1-33%) -Necrotic Tissue Type Adherent Slough -Texture (Michelle-wound Skin Appearance) Assessed,Callus ,Scarring -Moisture (Michelle-wound Skin Appearance Assessed,Dry/ ) Scaly -Color (Michelle-wound Skin Appearance) Assessed -Temperature (Michelle-wound Skin No Abnormality Appearance) (Pt Warm) -Tenderness on Palpation (Michelle-wound No Skin Appearance) -Ulcer Cleansing soapy water -Foul Odor after Cleansing No -Anesthetic Used 4% Lidocaine Solution #1 Right lateral foot/amp site -Combined with other wound No -Current Size (cm) - Length 2.5 -Current Size (cm) - Width 1.8 -Current Size (cm) - Depth 0.4 -Total Square Cm 4.50 -Photo Taken No -Epithelialization None Present -Tunneling No -Undermining/Tunneling No -Circular Undermining No -Exudate Amt Medium -Exudate Type Serosanguineous -Wound Margin Distinct, Outline Attached -Granulation Amt Small (1-33%) -Granulation Quality Red -Slough/Fibrin Yes -Necrosis Amt Large (67-100%) -Necrotic Tissue Type Adherent Slough -Texture (Michelle-wound Skin Appearance) Assessed, Scarring -Moisture (Michelle-wound Skin Appearance Assessed,Dry/ ) Scaly -Color (Michelle-wound Skin Appearance) Assessed -Temperature (Michelle-wound Skin No Abnormality Appearance) (Pt Warm) -Tenderness on Palpation (Michelle-wound No Skin Appearance) -Ulcer Cleansing soapy water -Foul Odor after Cleansing No -Anesthetic Used 4% Lidocaine Solution [Edema Assessment] -Lower Limb Edema Present Yes -Right Calf (cm) 49.6 -Right Ankle (cm) 28.8 -Left Calf (cm) 44.8 -Left Ankle (cm) 26.4 WC - Nurse 2 - General Ulcer CM Notes Start: 10/15/20 07:57 Freq: Status: Active Protocol: Activity Type Activity Date Activity User E-Sign Co-Sign Detail Recorded Client Recorded Date Recorded By Document 10/15/20 08:17 JERSON [id number] 10/15/20 08:24 JERSON 10/15/20 08:17 Wound Center Nurse 2 [Procedure/Treatment] 3-left plantar foot -Correct Patient No -Correct Side, Site, Position No -Correct Procedure No -Procedure Performed No -Post Debridement (cm) - Length 0 -Post Debridement (cm) - Width 0 -Post Debridement (cm) - Depth 0 -Total Square (Post) (cm) 0 -Area of Debridement (cm) - Length 0 -Area of Debridement (cm) - Width 0 -Total Square (Area) (cm) 0 -Wound/Ulcer Outcome Healed- Epithelialized #1 Right lateral foot/amp site -Time 08:17 -Correct Patient Yes -Correct Side, Site, Position Yes -Correct Procedure Yes -Procedure Performed Yes -Type of Procedure Debridement -Clinical Debridement Subcutaneous -Tissue Removed Subcutaneous -Post Debridement (cm) - Length 3.9 -Post Debridement (cm) - Width 0.7 -Post Debridement (cm) - Depth 0.2 -Total Square (Post) (cm) 2.73 -Area of Debridement (cm) - Length 3.9 -Area of Debridement (cm) - Width 0.7 -Total Square (Area) (cm) 2.73 -Tunneling No -Undermining/Tunneling No -Circular Undermining No -Wound/Ulcer Outcome Not Healed -Ulcer Cleansing Rinsed/ Irrigated with Saline -Foul Odor after Cleansing No -Bioengineered Tissue Yes -Type of Bioengineered Tissue Theraskin -Expiration Date 09/04/24 -Product Lot Number [id number] -Percent Used 100 -Lot number of Saline Used [id number] -Bleeding Controlled with Pressure -Offloading Yes -Type of Offloading Surgical Shoe -Treatment Response Procedure Tolerated Well -Debridement - Subq, 1st 20sq cm No -Apply Skin Sub - 1st 25 sq cm - Feet 1 -Theraskin (per sq cm) 26 [See Physician Procedure note for Specifics] Pain Scale: 0-10 Numeric [Pain] -Is Patient Pain Free? Yes Musculoskeletal: No Tenderness to Palpation of Joints or Extremities, - - Bilateral toe amputations Neurological: - - Decrease in epicritic sensation Psych/Mental Status: Normal Affect, Appropriate Debridement Note Post-Debridement Measurements/Treatment WC - Nurse 2 - General Ulcer CM Notes Start: 10/15/20 07:57 Freq: Status: Active Protocol: Activity Type Activity Date Activity User E-Sign Co-Sign Detail Recorded Client Recorded Date Recorded By Document 10/15/20 08:17 JERSON [id number] 10/15/20 08:24 JERSON 10/15/20 08:17 Wound Center Nurse 2 3-left plantar foot -Correct Patient No -Correct Side, Site, Position No -Correct Procedure No -Procedure Performed No -Post Debridement (cm) - Length 0 -Post Debridement (cm) - Width 0 -Post Debridement (cm) - Depth 0 -Total Square (Post) (cm) 0 -Area of Debridement (cm) - Length 0 -Area of Debridement (cm) - Width 0 -Total Square (Area) (cm) 0 -Wound/Ulcer Outcome Healed- Epithelialized #1 Right lateral foot/amp site -Time 08:17 -Correct Patient Yes -Correct Side, Site, Position Yes -Correct Procedure Yes -Procedure Performed Yes -Type of Procedure Debridement -Clinical Debridement Subcutaneous -Tissue Removed Subcutaneous -Post Debridement (cm) - Length 3.9 -Post Debridement (cm) - Width 0.7 -Post Debridement (cm) - Depth 0.2 -Total Square (Post) (cm) 2.73 -Area of Debridement (cm) - Length 3.9 -Area of Debridement (cm) - Width 0.7 -Total Square (Area) (cm) 2.73 -Tunneling No -Undermining/Tunneling No -Circular Undermining No -Wound/Ulcer Outcome Not Healed -Ulcer Cleansing Rinsed/ Irrigated with Saline -Foul Odor after Cleansing No -Bioengineered Tissue Yes -Type of Bioengineered Tissue Theraskin -Expiration Date 09/04/24 -Product Lot Number [id number] -Percent Used 100 -Lot number of Saline Used [id number] -Bleeding Controlled with Pressure -Offloading Yes -Type of Offloading Surgical Shoe -Treatment Response Procedure Tolerated Well -Debridement - Subq, 1st 20sq cm No -Apply Skin Sub - 1st 25 sq cm - Feet 1 -Theraskin (per sq cm) 26 Pain Scale: 0-10 Numeric Is Patient Pain Free? Yes Wound debrided: Lateral forefoot Laterality: Right Wound Grade/Stage: Sams 3 Type of Debridement: Excisional debridement Anesthesia Used: 4% Lidocaine Solution Depth: in the subcutaneous layer Percentage of wound debrided: 70 Instrument Used: 3mm curette Tissue Removed: Tissue removed includes fibrous, devitalized, biofilm, and slough tissue Severity: Fat Layer Exposed Amount of bleeding with debridement: Mild Bleeding Controlled with: Pressure Patient tolerated procedure well Assessment/Plan Assessment: Left foot ulceration dorsal first interspace Sams 1-healed. Left foot ucleration plantar 1st metatarsal head sams 1-healed. Right foot plantar lateral aspect of foot status post osteomyelitis and fourth fifth ray resection Sams grade 3. dorsal right foot ulceration healed. Edema. Uncontrolled diabetes with neuropathy. Morbid obesity Plan: Patient seen and examined. Right foot wounds were sharply debrided without incident with well tolerant by patient due to neuropathy after verbal assent obtained. Left foot wounds noted to have healed. Patient noted to have a last A1c of 10.3 patient relates recent blood sugars have been in the low 100s. Patient noted to have positive margins from recent surgery amputation of fourth and fifth rays right foot. Verruca changes noted to ulcer biopsy of left dorsal first interspace. Discussed with patient the importance of offloading ulcer site, good nutrition including protein vitamin C, proper blood sugar control, and proper wound care to optimize healing. Patient relates he has lost 30 pounds since being hospitalized. He admits to walking some to do this but mostly with diet. Patient relates that he is walking on his foot as little as possible when he does put any pressure he has pain which has improved. He has a cam boot. Patient noted to have edema to bilateral lower extremities. It is visible that the compression is only on going up to mid ghosh. Reviewed with patient the need to go from toes to knee for compression in order to get the fluid off of him. Shellie put these orders into his home health care note. Patient advised to advocate for himself when home health care comes to do the dressings. Patient was approved for Cardiio. I recommend application of advanced wound healing product to the indicated ulceration. Prior authorization was confirmed. The indications, benefits, anticipated application and healing time management were reviewed in detail. Verbal consent was obtained in the procedure for today. Site was debrided and graft was applied according to standard protocol and was further secured with a Adaptic touch and Steri-Strips. Patient to follow-up in 1 week. This note was generated with [employer] dictation software. It may contain incorrect words, spelling, and punctuation that were not noted in checking the note before signing.
[2020-10-22 08:02] VITALS: BP 141/87; PULSE 96; RESP 18; TEMP 35.4; BMI 47.7
--- NOTE | 2020-10-22 08:44 | PCM.WC.PN ---
(1) Non-pressure chronic ulcer of other part of right foot with fat layer exposed Status: Chronic Code(s): L97.512 - Non-pressure chronic ulcer of other part of right foot with fat layer exposed (2) Non-pressure chronic ulcer of other part of left foot with fat layer exposed Status: Resolved Code(s): L97.522 - Non-pressure chronic ulcer of other part of left foot with fat layer exposed (3) Obese Status: Chronic Code(s): E66.9 - Obesity, unspecified (4) Osteomyelitis of toe of right foot Status: Resolved Code(s): M86.9 - Osteomyelitis, unspecified (5) Bilateral lower extremity edema Status: Chronic Code(s): R60.0 - Localized edema (6) Type 2 diabetes mellitus Status: Chronic Code(s): E11.9 - Type 2 diabetes mellitus without complications (7) History of amputation of foot Status: Chronic Code(s): Z89.439 - Acquired absence of unspecified foot Type of Wound Date of Service: 10/22/20 Chief Complaint: Right foot plantar lateral ulceration status post fourth and fifth ray partial amputation. Left foot ulceration dorsal first interspace-healed. Left foot plantar foot ulceration-healed History of Wound: Patient is a 50-year-old male who presents to the wound care center for follow-up of hospital visit after surgical amputation of right fourth and fifth digits after osteomyelitis. Patient had removal of the fourth and fifth partial ray's by Dr. Ramos on 07/17/2020. Positive margins was noted on clearance fragments of right fourth and fifth rays. A biopsy was also obtained of left ulcer site near the first interspace dorsally which showed verrucual changes. Patient has large deficit to foot given removal of infection severity. Patient was on a wound VAC since discharge. Patient was discharged on levofloxacin linezolid and Flagyl. Patient states that they have largely sorted out the home health care issue with the wound VAC being applied properly but is having issues with them properly washing of the lower extremities. He has since discontinued the wound VAC. He states that the only rinse it with saline and do not use soap. Patient was approved for application of TheraSkin. Patient relates weight loss which is improved his health overall. Progress of Wound: Left foot dorsal ulcer is healed. Left foot plantar ulcer has healed. Right foot ulcers covered by wound veil and skin graft substitute, stable Subjective: Patient seen and examined resting comfortably. Patient denies any new pedal complaints. Patient denies any nausea, fever, chills, chest pain, shortness of breath, cough, streaking, purulence, vomiting. - Physical Exam Vital Signs Temp Pulse Resp BP 95.7 F L 96 18 141/87 H 10/22/20 08:02 10/22/20 08:02 10/22/20 08:02 10/22/20 08:02 General: Alert, Oriented x3 HEENT: Atraumatic Abdomen: Obese Extremities: No clubbing, No cyanosis, Capillary Refill Less than 3 Seconds, No Calf Tenderness - Negative Andrade sign, Diminished Peripheral Pulses, Edema - Right worse than left. Skin: Ulcer/ Wound - Right lateral foot. Covered with overlying dressing and Steri-Strips. Skin graft substitute dressing left intact. Left foot ulcerations remain healed Wound Measurements and Assessment - Nurse 1 - General Ulcer Measurement Start: 10/15/20 07:57 Freq: Status: Active Protocol: Activity Type Activity Date Activity User E-Sign Co-Sign Detail Recorded Client Recorded Date Recorded By Document 10/22/20 08:02 [facility] [id number] 10/22/20 08:11 [facility] 10/22/20 08:02 Wound Center Nurse 1 [Ulcer Assessment] #1 Right lateral foot/amp site -Combined with other wound No -Current Size (cm) - Length 0.1 -Current Size (cm) - Width 0.1 -Current Size (cm) - Depth 0.1 -Total Square Cm 0.01 -Texture (Michelle-wound Skin Appearance) Assessed -Moisture (Michelle-wound Skin Appearance Assessed ) -Color (Michelle-wound Skin Appearance) Assessed -Temperature (Michelle-wound Skin No Abnormality Appearance) (Pt Warm) [Edema Assessment] -Lower Limb Edema Present Yes -Right Calf (cm) 50.2 -Right Ankle (cm) 32 WC - Nurse 2 - General Ulcer CM Notes Start: 10/15/20 07:57 Freq: Status: Active Protocol: Activity Type Activity Date Activity User E-Sign Co-Sign Detail Recorded Client Recorded Date Recorded By Document 10/22/20 08:38 [id number] 10/22/20 08:39 JERSON 10/22/20 08:38 Wound Center Nurse 2 [Procedure/Treatment] #1 Right lateral foot/amp site -Correct Patient No -Correct Side, Site, Position No -Correct Procedure No -Procedure Performed No -Wound/Ulcer Outcome Not Healed [See Physician Procedure note for Specifics] Pain Scale: 0-10 Numeric [Pain] -Is Patient Pain Free? Yes - Nurse 3 - General Ulcer D/C NN Start: 10/15/20 07:57 Freq: Status: Active Protocol: Activity Type Activity Date Activity User E-Sign Co-Sign Detail Recorded Client Recorded Date Recorded By Document 10/22/20 08:38 [id number] 10/22/20 08:42 DL 10/22/20 08:38 Wound Care Nurse 3 [Wound Dressing] #1 Right lateral foot/amp site -Foul Odor after Cleansing No -Other Dressing graft left inplace -Primary Dressing Covered/Secured Dry Gauze & with Roll Gauze, Secured with Tape -Other Covering jens [Post Procedure Tolerated] -Treatment Response Procedure Tolerated Well Pain Scale: 0-10 Numeric [Pain] -Is Patient Pain Free? Yes - Visit Discharge [Visit Discharge Information] -Discharge Condition Stable -Ambulatory Status Ambulatory -Transportation Private Auto Musculoskeletal: - - Multiple foot amputations Neurological: - - Decrease in epicritic sensation Psych/Mental Status: Normal Affect, Appropriate Debridement Note Post-Debridement Measurements/Treatment - Nurse 2 - General Ulcer CM Notes Start: 10/15/20 07:57 Freq: Status: Active Protocol: Activity Type Activity Date Activity User E-Sign Co-Sign Detail Recorded Client Recorded Date Recorded By Document 10/15/20 08:17 [id number] 10/15/20 08:24 Document 10/22/20 08:38 [id number] 10/22/20 08:39 10/15/20 10/22/20 08:17 08:38 Wound Center Nurse 2 3-left plantar foot -Correct Patient No -Correct Side, Site, Position No -Correct Procedure No -Procedure Performed No -Post Debridement (cm) - Length 0 -Post Debridement (cm) - Width 0 -Post Debridement (cm) - Depth 0 -Total Square (Post) (cm) 0 -Area of Debridement (cm) - Length 0 -Area of Debridement (cm) - Width 0 -Total Square (Area) (cm) 0 -Wound/Ulcer Outcome Healed- Epithelialized #1 Right lateral foot/amp site -Time 08:17 -Correct Patient Yes No -Correct Side, Site, Position Yes No -Correct Procedure Yes No -Procedure Performed Yes No -Type of Procedure Debridement -Clinical Debridement Subcutaneous -Tissue Removed Subcutaneous -Post Debridement (cm) - Length 3.9 -Post Debridement (cm) - Width 0.7 -Post Debridement (cm) - Depth 0.2 -Total Square (Post) (cm) 2.73 -Area of Debridement (cm) - Length 3.9 -Area of Debridement (cm) - Width 0.7 -Total Square (Area) (cm) 2.73 -Tunneling No -Undermining/Tunneling No -Circular Undermining No -Wound/Ulcer Outcome Not Healed Not Healed -Ulcer Cleansing Rinsed/ Irrigated with Saline -Foul Odor after Cleansing No -Bioengineered Tissue Yes -Type of Bioengineered Tissue Theraskin -Expiration Date 09/04/24 -Product Lot Number [id number] -Percent Used 100 -Lot number of Saline Used [id number] -Bleeding Controlled with Pressure -Offloading Yes -Type of Offloading Surgical Shoe -Treatment Response Procedure Tolerated Well -Debridement - Subq, 1st 20sq cm No -Apply Skin Sub - 1st 25 sq cm - Feet 1 -Theraskin (per sq cm) 26 Pain Scale: 0-10 Numeric Is Patient Pain Free? Yes Yes - Nurse 3 - General Ulcer D/C NN Start: 10/15/20 07:57 Freq: Status: Active Protocol: Activity Type Activity Date Activity User E-Sign Co-Sign Detail Recorded Client Recorded Date Recorded By Document 10/15/20 08:33 [facility] [id number] 10/15/20 08:33 [facility] Document 10/22/20 08:38 [id number] 10/22/20 08:42 10/15/20 10/22/20 08:33 08:38 Wound Care Nurse 3 #1 Right lateral foot/amp site -Foul Odor after Cleansing No -Other Dressing theraskin graft left inplace -Primary Dressing Covered/Secured with Dry Gauze & Dry Gauze & Roll Gauze, Roll Gauze, Secured with Secured with Tape,Other Tape -Other Covering abd jens Right -Compression Wrap Jens Wrap Left -Compression Wrap Jens Wrap Treatment Response Procedure Procedure Tolerated Well Tolerated Well Pain Scale: 0-10 Numeric Is Patient Pain Free? Yes Yes WC - Visit Discharge Discharge Condition Stable Stable Ambulatory Status Ambulatory Ambulatory Transportation Private Auto Private Auto Facility Type Home Health Assessment/Plan Active Problems (Last Reviewed 09/04/20 @ 09:28 by Renetta Bradley) Non-pressure chronic ulcer of other part of right foot with fat layer exposed (Chronic) Obese (Chronic) History of amputation of foot (Chronic) Bilateral lower extremity edema (Chronic) Type 2 diabetes mellitus (Chronic) Assessment: Left foot ulceration dorsal first interspace Sams 1-healed. Left foot ucleration plantar 1st metatarsal head sams 1-healed. Right foot plantar lateral aspect of foot status post osteomyelitis and fourth fifth ray resection Sams grade 3. dorsal right foot ulceration healed. Edema. Uncontrolled diabetes with neuropathy. Morbid obesity Plan: Patient seen and examined. Skin graft substitute and overlying dressing to right foot remains intact and does not show any signs of infection. Left foot wounds remain healed. Patient noted to have a last A1c of 10.3 patient relates recent blood sugars have been in the low 100s. Patient noted to have positive margins from recent surgery amputation of fourth and fifth rays right foot. Verruca changes noted to ulcer biopsy of left dorsal first interspace. Discussed with patient the importance of offloading ulcer site, good nutrition including protein vitamin C, proper blood sugar control, and proper wound care to optimize healing. Patient relates he has lost 30 pounds since being hospitalized. He admits to walking some to do this but mostly with diet. Patient relates that he is walking on his foot as little as possible when he does put any pressure he has pain which has improved. He has a cam boot. Patient noted to have edema to bilateral lower extremities. It is visible that the compression is only on going up to mid ghosh. Reviewed with patient the need to go from toes to knee for compression in order to get the fluid off of him. Put these orders into his home health care note. Patient advised to advocate for himself when home health care comes to do the dressings. Patient was approved for [facility] [employer]. Patient to follow-up in 1 week. This note was generated with [employer] dictation software. It may contain incorrect words, spelling, and punctuation that were not noted in checking the note before signing. 20 to 29 minutes was spent on this encounter. This included both face to face and non face to face care, which includes but not limited to time preparing for the visit (which includes but not limited to reviewing medical record, any pertinent paperwork, as well as previous imaging and/or test results), reviewing/obtaining the noted history, performing the noted examination, counseling and providing education to the patient as well as to patient's family and/or patient caregivers per patient request. This also includes ordering any medication(s), test(s), and/or procedure(s) as indicated and as documented in the medical record, interpreting / sharing this information when indicated (and with patient's permission) as documented, communicating with other healthcare providers as needed/as requested, the time documenting information in the medical record, as well as any further care coordination.
[2020-10-29 08:04] VITALS: BP 119/71; PULSE 93; RESP 20; TEMP 35.5; BMI 47.7
--- NOTE | 2020-10-29 08:39 | PN.PCM_ITS ---
(1) Non-pressure chronic ulcer of other part of right foot with fat layer exposed Status: Chronic Code(s): L97.512 - Non-pressure chronic ulcer of other part of right foot with fat layer exposed (2) Non-pressure chronic ulcer of other part of left foot with fat layer exposed Status: Resolved Code(s): L97.522 - Non-pressure chronic ulcer of other part of left foot with fat layer exposed (3) Obese Status: Chronic Code(s): E66.9 - Obesity, unspecified (4) Osteomyelitis of toe of right foot Status: Resolved Code(s): M86.9 - Osteomyelitis, unspecified (5) Bilateral lower extremity edema Status: Chronic Code(s): R60.0 - Localized edema (6) Type 2 diabetes mellitus Status: Chronic Code(s): E11.9 - Type 2 diabetes mellitus without complications (7) History of amputation of foot Status: Chronic Code(s): Z89.439 - Acquired absence of unspecified foot (8) Osteomyelitis Status: Suspected Qualifiers: Osteomyelitis location: foot Laterality: right Code(s): M86.9 - Osteomyelitis, unspecified (9) Charcot arthropathy of midfoot Status: Suspected Code(s): M14.679 - Charcot's joint, unspecified ankle and foot (10) Right foot pain Status: Acute Code(s): M79.671 - Pain in right foot Type of Wound Date of Service: 10/29/20 Chief Complaint: Right foot plantar lateral ulceration status post fourth and fifth ray partial amputation-healed. Left foot ulceration dorsal first inte rspace-healed. Left foot plantar foot ulceration-healed. New right foot pain History of Wound: Patient is a 50-year-old male who presents to the wound care center for follow-up of hospital visit after surgical amputation of right fourth and fifth digits after osteomyelitis. Patient had removal of the fourth and fifth partial ray's by Dr. Ramos on 07/17/2020. Positive margins was noted on clearance fragments of right fourth and fifth rays. A biopsy was also obtained of left ulcer site near the first interspace dorsally which showed verrucual changes. Patient has large deficit to foot given removal of infection severity. Patient was on a wound VAC since discharge. Patient was discharged on levofloxacin linezolid and Flagyl. Patient states that they have largely sorted out the home health care issue with the wound VAC being applied properly but is having issues with them properly washing of the lower extremities. He has since discontinued the wound VAC. He states that the only rinse it with saline and do not use soap. Patient was approved for application of TheraSkin. Patient relates weight loss which is improved his health overall. Patient went to the hospital emergency department on 10/28/2020 for worsening right foot pain with ambulation. Patient was worked up and was noted to have a white blood cell count of 10.4, ESR greater than 130, CRP of 96. X-rays were obtained which showed fractures along the base of metatarsals 1 2 and 3. This is concerning for osteomyelitis or Charcot arthropathy. Patient was discharged with instructions to be strict nonweightbearing to his right foot. Patient was to follow-up with me today for further evaluation. Progress of Wound: Left foot dorsal ulcer is healed. Left foot plantar ulcer has healed. Right foot healed. New right foot pain Subjective: Patient seen and examined resting comfortably. Patient had new right foot pain syndrome to the emergency department yesterday. Patient relates pain with ambulation. Patient denies any nausea, fever, chills, chest pain, shortness of breath, cough, streaking, purulence, vomiting. - Physical Exam Vital Signs Temp Pulse Resp BP 96 F L 93 20 H 119/71 10/29/20 08:04 10/29/20 08:04 10/29/20 08:04 10/29/20 08:04 General: Alert, Oriented x3 HEENT: Atraumatic Abdomen: Obese Extremities: No clubbing, No cyanosis, Capillary Refill Less than 3 Seconds, No Calf Tenderness, Diminished Peripheral Pulses - Absent DP on the right likely due to swelling, 2/4 PT right. 2 out of 4 DP PT on left, Edema - Right significantly worse than left lower extremity, - - Right foot noted to be warmer than left foot significantly. Skin: Ulcer/ Wound - Ulceration to right lateral foot and left dorsal and plantar first MPJ area are healed. No surrounding erythema, no signs of infection. Wound Measurements and Assessment WC - Nurse 1 - General Ulcer Measurement Start: 10/15/20 07:57 Freq: Status: Active Protocol: Activity Type Activity Date Activity User E-Sign Co-Sign Detail Recorded Client Recorded Date Recorded By Document 10/29/20 08:04 DL [id number] 10/29/20 08:13 DL 10/29/20 08:04 Wound Center Nurse 1 [Ulcer Assessment] #1 Right lateral foot/amp site -Current Size (cm) - Length 0.1 -Current Size (cm) - Width 0.1 -Current Size (cm) - Depth 0.1 -Total Square Cm 0.01 -Photo Taken No -Exudate Amt Small -Exudate Type Serosanguineous -Wound Margin Thickened -Granulation Amt Small (1-33%) -Granulation Quality Lander -Necrosis Amt Large (67-100%) -Necrotic Tissue Type Adherent Slough -Structure Exposed N/A -Texture (Michelle-wound Skin Appearance) Localized Edema ,Scarring -Moisture (Michelle-wound Skin Appearance Dry/Scaly ) -Color (Michelle-wound Skin Appearance) Hemosiderin Staining -Temperature (Michelle-wound Skin No Abnormality Appearance) (Pt Warm) -Tenderness on Palpation (Michelle-wound No Skin Appearance) -Ulcer Cleansing Wound Cleanser -Foul Odor after Cleansing No -Anesthetic Used 4% Lidocaine Solution [Edema Assessment] -Right Calf (cm) 49 -Right Ankle (cm) 29.5 WC - Nurse 2 - General Ulcer CM Notes Start: 10/15/20 07:57 Freq: Status: Active Protocol: Activity Type Activity Date Activity User E-Sign Co-Sign Detail Recorded Client Recorded Date Recorded By Document 10/29/20 08:22 [id number] 10/29/20 08:26 JERSON 10/29/20 08:22 Wound Center Nurse 2 [Procedure/Treatment] #1 Right lateral foot/amp site -Correct Patient No -Correct Side, Site, Position No -Correct Procedure No -Procedure Performed No -Post Debridement (cm) - Length 0 -Post Debridement (cm) - Width 0 -Post Debridement (cm) - Depth 0 -Total Square (Post) (cm) 0 -Area of Debridement (cm) - Length 0 -Area of Debridement (cm) - Width 0 -Total Square (Area) (cm) 0 -Wound/Ulcer Outcome Healed- Epithelialized [See Physician Procedure note for Specifics] Pain Scale: 0-10 Numeric [Pain] -Is Patient Pain Free? Yes WC - Nurse 3 - General Ulcer D/C NN Start: 10/15/20 07:57 Freq: Status: Active Protocol: Activity Type Activity Date Activity User E-Sign Co-Sign Detail Recorded Client Recorded Date Recorded By Document 10/29/20 08:27 [id number] 10/29/20 08:27 10/29/20 08:27 Wound Care Nurse 3 [Compression Applied] Right -Compression Wrap Jens Wrap Pain Scale: 0-10 Numeric [Pain] -Is Patient Pain Free? Yes - Visit Discharge [Visit Discharge Information] -Discharge Condition Stable -Ambulatory Status Wheelchair -Transportation Private Auto -Medication Reconcilliation completed Yes & provided to patient/care provider -Clinical Summary of Care Provided Yes Musculoskeletal: Tenderness - Right midfoot, - - History toe amputations Neurological: - - Absent epicritic sensation to feet bilaterally Psych/Mental Status: Normal Affect, Appropriate Debridement Note Post-Debridement Measurements/Treatment - Nurse 2 - General Ulcer CM Notes Start: 10/15/20 07:57 Freq: Status: Active Protocol: Activity Type Activity Date Activity User E-Sign Co-Sign Detail Recorded Client Recorded Date Recorded By Document 10/15/20 08:17 [id number] 10/15/20 08:24 Document 10/22/20 08:38 [id number] 10/22/20 08:39 Document 10/29/20 08:22 [id number] 10/29/20 08:26 10/15/20 10/22/20 10/29/20 08:17 08:38 08:22 Wound Center Nurse 2 3-left plantar foot -Correct Patient No -Correct Side, Site, Position No -Correct Procedure No -Procedure Performed No -Post Debridement (cm) - Length 0 -Post Debridement (cm) - Width 0 -Post Debridement (cm) - Depth 0 -Total Square (Post) (cm) 0 -Area of Debridement (cm) - Length 0 -Area of Debridement (cm) - Width 0 -Total Square (Area) (cm) 0 -Wound/Ulcer Outcome Healed- Epithelialized #1 Right lateral foot/amp site -Time 08:17 -Correct Patient Yes No No -Correct Side, Site, Position Yes No No -Correct Procedure Yes No No -Procedure Performed Yes No No -Type of Procedure Debridement -Clinical Debridement Subcutaneous -Tissue Removed Subcutaneous -Post Debridement (cm) - Length 3.9 0 -Post Debridement (cm) - Width 0.7 0 -Post Debridement (cm) - Depth 0.2 0 -Total Square (Post) (cm) 2.73 0 -Area of Debridement (cm) - Length 3.9 0 -Area of Debridement (cm) - Width 0.7 0 -Total Square (Area) (cm) 2.73 0 -Tunneling No -Undermining/Tunneling No -Circular Undermining No -Wound/Ulcer Outcome Not Healed Not Healed Healed- Epithelialized -Ulcer Cleansing Rinsed/ Irrigated with Saline -Foul Odor after Cleansing No -Bioengineered Tissue Yes -Type of Bioengineered Tissue Theraskin -Expiration Date 09/04/24 -Product Lot Number [id number] -Percent Used 100 -Lot number of Saline Used [id number] -Bleeding Controlled with Pressure -Offloading Yes -Type of Offloading Surgical Shoe -Treatment Response Procedure Tolerated Well -Debridement - Subq, 1st 20sq cm No -Apply Skin Sub - 1st 25 sq cm - Feet 1 -Theraskin (per sq cm) 26 Pain Scale: 0-10 Numeric Is Patient Pain Free? Yes Yes Yes - Nurse 3 - General Ulcer D/C NN Start: 10/15/20 07:57 Freq: Status: Active Protocol: Activity Type Activity Date Activity User E-Sign Co-Sign Detail Recorded Client Recorded Date Recorded By Document 10/15/20 08:33 [facility] [id number] 10/15/20 08:33 [facility] Document 10/22/20 08:38 DL [id number] 10/22/20 08:42 DL Document 10/29/20 08:27 [id number] 10/29/20 08:27 10/15/20 10/22/20 10/29/20 08:33 08:38 08:27 Wound Care Nurse 3 #1 Right lateral foot/amp site -Foul Odor after Cleansing No -Other Dressing theraskin graft left inplace -Primary Dressing Covered/Secured with Dry Gauze & Dry Gauze & Roll Gauze, Roll Gauze, Secured with Secured with Tape,Other Tape -Other Covering abd jens Right -Compression Wrap Jens Wrap Jens Wrap Left -Compression Wrap Jens Wrap Treatment Response Procedure Procedure Tolerated Well Tolerated Well Pain Scale: 0-10 Numeric Is Patient Pain Free? Yes Yes Yes - Visit Discharge Discharge Condition Stable Stable Stable Ambulatory Status Ambulatory Ambulatory Wheelchair Transportation Private Auto Private Auto Private Auto Medication Reconcilliation completed & Yes provided to patient/care provider Clinical Summary of Care Provided Yes Facility Type Home Health Assessment/Plan Active Problems (Last Reviewed 09/04/20 @ 09:28 by Renetta Bradley) Non-pressure chronic ulcer of other part of right foot with fat layer exposed (Chronic) Obese (Chronic) History of amputation of foot (Chronic) Bilateral lower extremity edema (Chronic) Type 2 diabetes mellitus (Chronic) Assessment: Left foot ulceration dorsal first interspace Sams 1-healed. Left foot ucleration plantar 1st metatarsal head sams 1-healed. Right foot plantar lateral ulceration history of Sams 3-healed. dorsal right foot ulceration healed. Edema. Uncontrolled diabetes with neuropathy. Morbid obesity. Osteomyelitis versus Charcot arthropathy right foot. Pain right foot Plan: Patient seen and examined. All ulcerations noted to have healed to right and left foot. Patient presented to the emergency department 10/28/2020 for worsening right foot pain. I personally reviewed the emergency room documentation work-up. Patient was worked up by the emergency department at that time which included labs which were significant for white blood cell count of 10.4, ESR greater than 130, CRP 96. X-rays were obtained which showed fracture to the base of metatarsals 1 2 and 3 which were concerning for osteomyelitis versus Charcot arthropathy. Patient at that time was instructed to be strict nonweightbearing is to follow-up with me today and at the wound care center. Discussed with the patient at length potential causes for his foot pain. Discussed his lab results as well has his x-ray results. Discussed with the patient and described at length what Charcot versus osteomyelitis would mean. Discussed need to work this up further in order to prevent future complications. Discussed admitting him into the hospital for this further work- up. Discussed the importance of nonweightbearing to the right foot. Discussed potential for further amputation if work-up reveals bone infection. Discussed that the wound has healed to his right foot and has not demonstrated clinical signs of infection but patient has had a history of bone infection at this site and even though it was treated there is always the potential for bacteria to have remained. Discussed the importance of strict nonweightbearing to the right foot if further work-up demonstrates Charcot. All questions were answered. Patient will be admitted to podiatry service. Have discussed case with Dr. Ramos who is on-call this week. Shanita the further work-up will likely include an MRI with potential bone biopsy or further surgical intervention. Patient noted to have a last A1c of 10.3 on 07/17/2020. Patient relates that he is walking on his foot as little as possible when he does put any pressure he has pain which has improved. He has a cam boot. He presented today in a wheelchair in order to obtain nonweightbearing. Patient noted to have edema to bilateral lower extremities. Right is significantly worse than the left. Compression was placed on the right lower extremity via Jens wraps. Patient was sent to the hospital for direct admission for further work-up. All questions were answered to patient satisfaction. This note was generated with [employer] dictation software. It may contain incorrect words, spelling, and punctuation that were not noted in checking the note before signing. Problems addressed require a moderate medical decision making level which includes a chronic illnesses with exacerbation, progression, or side effects of treatment; or undiagnosed new problem with uncertain prognosis; or acute illness with systemic symptoms; or acute complicated injury
== END 2020-10-29 08:45 | disposition short-term general hospital (02) ==
LOC: WC 08:00
PROVIDERS: PCP Internal Medicine; Referring Provider Podiatrist; Visit Provider Podiatrist Foot & Ankle Surgery
DX: E11.621 Type 2 diabetes mellitus with foot ulcer (principal); L97.512 Non-pressure chronic ulcer of other part of right foot with fat layer exposed; L97.522 Non-pressure chronic ulcer of other part of left foot with fat layer exposed; E66.9 Obesity, unspecified; R60.0 Localized edema; E11.9 Type 2 diabetes mellitus without complications; M86.9 Osteomyelitis, unspecified; Z89.439 Acquired absence of unspecified foot; E11.40 Type 2 diabetes mellitus with diabetic neuropathy, unspecified; E11.65 Type 2 diabetes mellitus with hyperglycemia; E66.01 Morbid (severe) obesity due to excess calories; E11.69 Type 2 diabetes mellitus with other specified complication
CPT/HCPCS: 15275; 99213; Q4121; G0463

== ENCOUNTER 2020-10-29 09:04 | Inpatient (IN) | payer MEDICAID, SELFPAY ==
[2020-10-29] VITALS (10 sets, daily range): BP systolic 118–153; BP diastolic 66–91; PULSE 79–89; RESP 16–20; TEMP 36.3–36.8; O2SAT 93–99; BMI 41.1; BMI 45.1; BMI 45.2
--- NOTE | 2020-10-29 09:02 | MRI_ITS ---
We are attempting to reach an attending provider to discuss findings. An addendum with communication details will be sent when the communication is complete. STUDY: MRI RIGHT MIDFOOT REASON FOR EXAM: Male, 50 years old. osteomyelitis vs charcot foot TECHNIQUE: Standardized fat and water weighted pulse sequences were obtained in all 3 orthogonal planes. COMPARISON: 07/16/2020. FINDINGS: Patient motion. Advanced progressive midfoot bone marrow replacement and bone destruction with significant bone marrow edema, soft tissue swelling and joint effusions (sagittal images 5 through 28 series 4). Bones involved include the first metatarsal, second metatarsal, third metatarsal, fourth metatarsal stump, fifth metatarsal stump, medial cuneiform, middle cuneiform, lateral cuneiform, cuboid and navicular. Surgical amputation at the second digit. Surgical amputation at the fourth and fifth metatarsals. Diffuse soft tissue swelling/cellulitis with lateral wound (axial image 21 series 6) and plantar ulceration (sagittal image 29 series 3). Surgical truncation of the flexor and extensor tendons at the amputated digits. Remainder of the visualized flexor and extensor tendons intact. Moderate peroneus longus tendinosis. Mild extensor digitorum tenosynovitis (axial image 4 series 6). Diffuse muscle atrophy. Chronic Lisfranc ligament rupture. MRI/Lower Ext/No Jt/w/o IMPRESSION: Advanced progressive midfoot bone marrow replacement and bone destruction with significant soft tissue swelling, joint effusions and bone marrow edema (findings highly suspicious for acute osteomyelitis versus rapidly progressing Charcot arthropathy; correlate WBC, blood cultures, ESR and CRP) Chronic Lisfranc ligament rupture Moderate peroneus longus tendinosis and mild extensor digitorum tenosynovitis Diffuse soft tissue swelling/cellulitis with wound/ulceration Electronically Signed: Mc Pruitt DO at 11:12 EDT Tel , Service support ,
--- NOTE | 2020-10-29 10:59 | HP.PCM_ITS ---
Problem List (1) Osteomyelitis of left foot Status: Acute Qualifiers: Osteomyelitis type: subacute Qualified Code(s): M86.272 - Subacute osteomyelitis, left ankle and foot (2) Non-pressure chronic ulcer of other part of right foot with fat layer exposed Status: Chronic (3) Non-pressure chronic ulcer of other part of left foot with fat layer exposed Status: Inactive (4) Foot ulcer, left Status: Inactive (5) Obese Status: Chronic (6) History of amputation of foot Status: Chronic (7) Charcot arthropathy of midfoot Status: Suspected (8) Right foot pain Status: Acute (9) Osteomyelitis of toe of right foot Status: Resolved (10) KRYSTAL (obstructive sleep apnea) Status: Chronic (11) Dry skin dermatitis Status: Chronic (12) Thrombocytopenia Status: Chronic (13) Osteoarthritis Status: Chronic (14) Bilateral lower extremity edema Status: Chronic (15) Type 2 diabetes mellitus Status: Chronic (16) History of esophageal disorder Status: Chronic (17) Hypertension Status: Chronic History of Present Illness Date of Admission: 10/29/20 Chief Complaint: Right foot pain for 3 weeks The patient is a 50 year old M with history of diabetes mellitus type 2 and other comorbidities was admitted from wound center when patient complain of right foot pain mainly on weightbearing for last 2 to 3 weeks. The pain is mainly on plantar aspect of right lateral half of foot. Patient denies fever chills, nausea vomiting, headache or other systemic symptoms. Patient was admitted on first week of July 2020 for right foot wound/ulcer and had fourth fifth ray amputation for metatarsal osteomyelitis. Patient also had right second toe amputation in the past. Patient says he does not have ulcer or wound at this time but it is painful to walk on the foot. [] He states his glucose control usually been 130s to 140s. Past Medical History Past Medical History (Chronic Problems): Chronic Problems (Last Reviewed 09/04/20 @ 09:28 by Renetta Bradley) Non-pressure chronic ulcer of other part of right foot with fat layer exposed (Chronic) Obese (Chronic) History of amputation of foot (Chronic) KRYSTAL (obstructive sleep apnea) (Chronic) Dry skin dermatitis (Chronic) Thrombocytopenia (Chronic) Osteoarthritis (Chronic) Bilateral lower extremity edema (Chronic) Type 2 diabetes mellitus (Chronic) History of esophageal disorder (Chronic) Hypertension (Chronic) Medical History: Medical History (Last Reviewed 09/04/20 @ 09:28 by Renetta Bradley) History of esophageal disorder (Chronic) Z87.19 Hypertension (Chronic) I10 Amputation of toe of left foot S98.132A 07/2019, pinkie toe DVT (deep venous thrombosis) (Inactive) I82.409 Allergies ketorolac [From Toradol] Adverse Reaction (Verified 10/28/20 19:29) Upset Stomach NSAIDS (Non-Steroidal Anti-Inflamma Adverse Reaction (Verified 10/28/20 19:29) Upset Stomach Home Medications: Ambulatory Orders Medication Instructions Recorded Metformin HCl 1,000 mg PO BID 01/23/20 Acetaminophen [Tylenol Tablet] 650 mg PO Q6H PRN PRN tab 07/23/20 Hydrocodone Bitart/Apap 5-325 1 tablet PO Q6H PRN PRN 3 Days #12 10/28/20 [[place] 5MG-325MG] tab Amox/Clavulanate Tablet [Augmentin 875 mg PO Q12H 10/29/20 Tablet] Doxycycline 100 mg PO BID 10/29/20 Lisinopril 20 mg PO DAILY 10/29/20 Sitagliptin Phosphate [Januvia] 100 mg PO DAILY 10/29/20 Surgical History: - - Right fourth fifth ray amputation partial Psychiatric History: No pertinent psych hx Smoking Status: Current every day smoker - *Family History Paternal Family History: Family History (Last Reviewed 09/04/20 @ 09:28 by Renetta Bradley) Mother Hypertension Diabetes Heart disease Sister Hypertension Diabetes Crohns disease Brother Diabetes History Items: - - Denies known paternal medical history including cardiac history. Review of Systems Constitutional: Denies: Chills, Fever, Weight Change HEENT: Denies: Head Aches, Sinus Congestion, Sinus Drainage Cardiovascular: Denies: Chest Pain, Palpitations Respiratory: Denies: Cough, Shortness of breath at rest, Sputum production Gastrointestinal: Denies: Abdominal Pain, Constipation, Diarrhea, Hematemesis, Hematochezia, Nausea, Melena, Vomiting Genitourinary: Denies: Dysuria Musculoskeletal: Reports: Joint Pain, Joint stiffness, Joint swelling, Joint Tenderness, Leg Pain Skin: Denies: Rash, Wounds Neurological: Reports: Balance problems, Numbness. Denies: Focal weakness, Tingling Psychiatric: Denies: Anxiety, Depression, Homicidal Ideations, Suicidal Ideations Hematologic/ Lymphatic: Denies: Easy Bruising, Easy Bleeding VTE Information - Inpt Only VTE Present on Admission: No VTE Mechan Device Prophylaxis: None VTE Pharm Prophylaxis ordered?: Yes Patient Problems: Active and Suspected Problems (Last Reviewed 09/04/20 @ 09:28 by Renetta Bradley) Charcot arthropathy of midfoot (Suspected) Right foot pain (Acute) Osteomyelitis of left foot (Acute) Objective: Physical exam General: Alert, Oriented x3, Cooperative, BMI 45.2 kg/m?, morbid obesity HEENT: Atraumatic, PERRLA, EOMI, Normocephalic Oral: No Gingival or Mucosal Lesions/ Ulcerations Neck: Supple, No JVD, Negative Carotid Bruits Lungs: Air entry diminished in bilateral lung bases. No crepitation/rhonchi Cardiovascular: Regular rate, Regular Rhythm, Normal S1, Normal S2, No murmurs Abdomen: Bowel Sounds Present, Soft, Non Tender, Non-Distended : No renal angle tenderness. No suprapubic tenderness. Extremities: Right second, fourth and fifth toe amputation. Tenderness over lateral half of the right foot. Jens wrap bandage on. No edema Skin: No rashes, No breakdown Musculoskeletal: Tenderness to the palpation of right midfoot joints. Neurological: Cranial nerves II-XII grossly intact, Deep Tendon Reflexes 2+/4 and Symmetrical. Decreased sensation over right foot. Psych/Mental Status: Normal Affect, Appropriate. - Physical Exam Vitals/I&O's: Body Mass Index (BMI) 41.1 Finger Stick Blood Glucose 138 Assessment/Plan All Active Problems (Last Reviewed 09/04/20 @ 09:28 by Renetta Bradley) Right foot pain (Acute) Osteomyelitis of left foot (Acute) Osteomyelitis of toe of right foot (Resolved) There is a 50-year-old patient who was admitted from wound center for right foot pain for 3 weeks. 1.. Persistent right foot pain with concern of infection/osteomyelitis: Radiologist Dr. Velarde called me to inform that patient has rapidly progressive bone destruction of right midfoot associated with soft tissue swelling, joint effusion and bone marrow edema suggestive of acute mastoiditis. Discussed with assurance services manager health care Dr. Ramos. Patient is going for bone biopsy. Will start antibiotic after bone biopsy. Previous bone culture in July 2020 showed MRSA, Streptococcus agalactiae, Fusobacterium, anaerobic cocci, pseudomonas, Clostridium and bacteroids species. Patient had arterial Doppler study in July, and reported no evidence of significant arterial occlusive disease lower extremities bilaterally. Resting KRIS and distal brachial indices normal bilaterally. 2. Right lower extremity DVT in July 2020. Patient only had 1 month of probably Eliquis. Will repeat venous Doppler to see the status of blood clot. 3. Type 2 diabetes mellitus-hold oral regimen. A1c 10.3% on July 17. Repeat A1c. Continue Accu-Cheks and before meals and at bedtime with a scheduled dose insulin 4. Hypertension-blood pressure is well controlled. Continue home medications 4. Morbid obesity-encouraged diet lifestyle applications. 5. Tobacco dependence-encourage cessation. DVT prophylaxis-patient is going for surgery therefore start Eliquis 2.5 mg twice daily after 6 to 8 hours of surgery when hemostasis is achieved. If venous Doppler positive of VTE, will need therapeutic dose of Eliquis. Clinical Impression(s) from Imaging Studies Lower Extremity MRI 10/29/20 09:02 IMPRESSION: Advanced progressive midfoot bone marrow replacement and bone destruction with significant soft tissue swelling, joint effusions and bone marrow edema (findings highly suspicious for acute osteomyelitis versus rapidly progressing Charcot arthropathy; correlate WBC, blood cultures, ESR and CRP) Chronic Lisfranc ligament rupture Moderate peroneus longus tendinosis and mild extensor digitorum tenosynovitis Diffuse soft tissue swelling/cellulitis with wound/ulceration Inpatient E&M: 64568 Subs Hosp L2
--- NOTE | 2020-10-29 12:06 | VDLE_ITS ---
Reason For Study: Pain RIGHT GSV is normal. CFV is compressible, spontaneous, phasic, competent and demonstrates normal augmentation. FV is compressible, spontaneous, phasic, competent and demonstrates normal augmentation. PTV is compressible. RT PerV is compressible. Rt PopV and Rt T/P Trunk partially compressible consistent with acute DVT. No noticable change as compared to 07/19/20. Procedure This is a venous duplex using B-mode, color flow and spectral Doppler. Exam performed portable in patient room. A preliminary report was called and/or faxed to [facility]. VL/Venous Duplex US, Unilateral Interpretation Summary Partially compressible right popliteal and tibioperoneal trunk with hyperechoic thrombus consistent with chronic deep venous thrombosis. Patent and compressible right great saphenous vein No apparent change from the previous examination of July 2020 Ordering Physician: Justin Al Referring Physician: Gavin Raymundo Performed By: Bella Evans RVT
[2020-10-29 12:52] LABS: Absolute Neutrophil Count 6.1 X10^3/uL (2.0-7.7); Basophil# 0.05 X10^3/uL; Basophil% 0.6 % (0-1); Eosinophil# 0.18 X10^3/uL; Eosinophils% 2.3 % (0-5); Hematocrit 40.5 % (40-54); Hemoglobin 12.5 g/dL (13.0-16.5); Lymphocyte % 11.4 % (19-41); Mean Corp Hgb Conc 30.9 g/dL (32-36); Mean Corpuscular Hgb 25.3 pg (27.0-32.0); Mean Platelet Vol. 11.6 fl (6.2-12.0); Monocyte% 7.6 % (0-10); NRBC Flagged by Analyzer 0 % (0-5); Neutrophil # 6.08 X10^3/uL (2.7-7.7); Neutrophil % 76.7 % (47-70); Platelet Count 289 K/mm3 (150-450); RBC Distribution Width CV 14.6 % (11.6-14.6); RBC Distribution Width SD 43.9 fl (35.1-43.9); Red Blood Count 4.94 M/mm3 (4.6-6.2); White Blood Count 7.9 K/mm3 (4.4-11.0)
[2020-10-29 13:14] LABS: ALB/GLOB Ratio 0.4 RATIO (0.9-2.4); AST(SGOT) 9 U/L (15-37); Alanine Aminotransfer ALT/SGPT 18 U/L (16-61); Albumin, Serum 2.4 g/dL (3.2-5.0); Alkaline Phosphatase 88 U/L (45-117); Anion Gap 5 (5-15); BUN 5 mg/dL (7-18); BUN/Creat Ratio 6.7 RATIO (10-20); Chloride 100 mmol/L (98-107); Creatinine, Serum 0.75 mg/dL (0.70-1.30); EST Glomerular Filtration Rate 118 mL/min (>60); Est Glom Filt Rate - Afr Amer 142 mL/min (>60); Globulin 5.6 g/dL (2.2-4.2); Glucose 112 mg/dL (74-106); Potassium 4.2 mmol/L (3.5-5.1); Prealbumin 10.3 mg/dL (20.0-40.0); Sodium Level 135 mmol/L (136-145)
[2020-10-29 13:21] LABS: Hemoglobin A1c 6.8 % (3.8-5.6)
[2020-10-29 13:48] LABS: Vitamin D,25 Hydroxy 10.6 ng/mL
--- NOTE | 2020-10-29 14:00 | RAD_ITS ---
STUDY: Fluoroscopically guided bone biopsy. CLINICAL: Male, 50 years old. BONE BIOPSY TECHNIQUE: COMPARISON: None. FINDINGS: The images reveal status post amputation of the fourth and fifth metacarpal bones and corresponding toes. There is a radiopaque metallic structure projecting over the first metatarsal base and medial tarsometatarsal joints. RAD/Foot 2 Views IMPRESSION: Fluoroscopic guidance provided for bone biopsy procedure. For details please see operative report. Electronically Signed: Theresa De Los Santos MD at 1:00 EDT , Service support ,
[2020-10-29] MEDS: Lactated Ringers 1,000 ML 100 ML IV (14:11)
--- NOTE | 2020-10-29 14:30 | BONBX_PTH ---
PATIENT: EUSEBIA HECTOR LOC: MS3 U#:[id number] AGE/SX: 50/M ROOM: W[facility]312 RE10/29/[address]: Dr. Justin Al MD : 1970 BED: 1 DIS: 10/31/2020 SPEC #: [id number] RECD: 10/30/20 07:30 STATUS: CHRISSY REQ #: [id number] VALENTINA: 10/29/20 14:[address]: Jesus Ramos DEPT: SURGICAL PATHOLOGY RECD BY: Nica Sams ENTERED: 10/30/20 11:04 SP TYPE: Bone OTHR DR: MD Dr. Jesus Gaffney, DPM MD Dr. Stoney Webb MD Tissues: A - Foot, NOS B - Foot, NOS Procedures: Decalcification bone/plaque Surgery Specimen Level V Comments: @ Ordering doctor for DEC edited from to @ marianne BAILYE at 10/30/201451 @ Ordering doctor for SUV edited from to @ by LYNN at 10/30/20 145 @ Submitting doctor edited from to DR.JWUNNI Cora BAILEY at 10/30/202 HEADER OPERATION: Left foot bone biopsy PRE-OP DIAGNOSIS: Osteomyelitis left foot TISSUE SUBMITTED: A - Bone biopsy tarsometatarsal joint #1, B - Bone biopsy tarsometatarsal joint #2 MICROSCOPIC DIAGNOSIS A. Bone biopsy tarsometatarsal joint #1: Pieces of bone with chronic inflammation and reactive changes, negative for acute osteomyelitis. B. Bone biopsy tarsometatarsal joint #2: Pieces of bone with attached pieces of fibroconnective tissue with chronic inflammation and reactive changes, negative for acute osteomyelitis. SJ:marely 10/31/2020 MICROSCOPIC DESCRIPTION Slides are reviewed. GROSS DESCRIPTION A - Received in fixative is one container labeled with the patient's name and designated bone biopsy tarsometatarsal joint #1. The specimen consists of two irregular fragments of calderon bone measuring in aggregate 1 x 0.5 x 0.5 cm. The specimen is submitted in its entirety in one cassette after decalcification. B - Received in fixative is one container labeled with the patient's name and designated bone biopsy tarsometatarsal joint #2. The specimen consists of two elongated fragments of calderon-white bone each measuring 1 cm in length and each with a diameter of 0.2 cm. Adherent to one fragment is an elongated blood clot measuring 1.5 x 0.2 cm. The specimen is submitted in its entirety in one cassette after decalcification. / JUDITH:marely 10/30/20 TC:3 CPT: 32843 x2, 06657 x2
[2020-10-29 15:11] LABS: Bedside Glucose 111 mg/dL (70-110)
[2020-10-29] MEDS: Bupivacaine Mpf 0.5% 30 ML VIAL (15:20)
[2020-10-29] MEDS: Lidocaine 1% (30 ml sdv) 30 ML Vial (15:42)
--- NOTE | 2020-10-29 15:46 | OP.PCM_ITS ---
Report of Operation Date of Procedure: 10/29/20 Pre-Operative Diagnosis: Osteomyelitis, charcot neuroarthropathy right foot Post-Operative Diagnosis: Same Surgery/Procedure Performed:: Bone biopsy of tarsometatarsal joint right foot head golf professional: yes - Dr. Alonzo Type of Anesthesia:: Local MAC, Local Specimen's removed: 1. Bone biopsy from tarsometatarsal joint right foot sent to pathology and microbiology #1. 2. Bone biopsy from tarsometatarsal joint right foot sent to pathology and microbiology #2 Estimated Blood Loss (mL): 5mL Description of Procedure: Indications: This is a 50 year old who has concern for charcot neuroarthropathy vs osteomyelitis to the right foot at the level of the tarsometatarsal joint. He is diabetic with peripheral neuropathy, medical nonadherence, he is morbidity obese and is a smoker, he has not quit despite extensive discussions on the importance of quitting, he also has a history of osteomyelitis. There are significant destructive changes to the tarsometatarsal joint with significant progression since July 2020. ESR and CRP are elevated. Patient was admitted for further workup and management. Due to the findings we discussed bone biopsy for further evaluation. The rationale of the procedure was discussed with him in detail, reviewed the possible benefits vs risks, and potential complications. Reviewed the goals and expectations. Reviewed alternative options. Explained to patient he is a very high risk for limb loss given the findings. The patient expressed understanding and agreement and elected to proceed forward with the biopsy for further evaluation at this time. The consent forms were reviewed with him, and he freely signed them. All of his questions were answered. Operative procedure: The patient was brought back into the operating room and was placed on the operating room in the supine position. The patient was secured to the operating room table with a safety belt around his waist. The patient received MAC anesthesia per the anesthesia team, the foot was cleansed with 70% Isopropyl alcohol and a 50/50 mixture of 10mL of 1% Lidocaine plain and 0.5% Bupivacaine plain was given as a local block around the midfoot. The right lower extremity was scrubbed, prepped, and draped in the usual aseptic fashion. A time out was performed and the patient was properly identified and the surgical plan was confirmed. Pre operative antibiotics were not given until after the biopsy taken. Further attention was directed to the right foot. It was noted to have swelling, but no open lesions, no visible abscess, no cellulitis, no erythema, no necrosis, no blistering was present. There was instability to the tarsometatarsal joint. Using a 15 scalpel blade a small less than 1cm linear longitudinal incision was made to the dorsal medial midfoot and another one overlying the dorsal central midfoot. Careful dissection was completed down through the subcutaneous tissue layer to the tarsometatarsal joints and bones. Under the guidance of intra-operative fluoroscopy, and using the Nas bone biopsy tray, a bone biopsy was completed at these levels, being sure to obtain bone from the sites. The bone from these sites was noted to be yellowish, soft with degenerative changes noted. These were sent to pathology and microbiology for further evaluation. There was no noted purulence, no visible abscess, no cellulitis, and no visible crystals noted. Fluoroscopic images of the biopsy sites were saved and placed in patient's chart. The sites were flushed out with copious amounts of normal saline solution. The skin was reapproximated using 3-0 Nylon. An additional 6mL of 0.5% Bupivacaine was given as a local nerve block around the surgical site for pain control. A dressing was applied which consisted of Betadine soaked Adaptic, 4x4 gauze, Kerlix and ismael bandage. There is no evidence of ischemia to the foot or ankle. The patient tolerated the above procedure well and the anesthesia well with no complications. He was transported from the operating room to the recovery room with vital signs stable and in good condition. Patient will be transferred back to the floor and continued to be followed as an inpatient. Grafts/Implants Used: None - Complications None
[2020-10-29 16:46] LABS: Bedside Glucose 88 mg/dL (70-110)
--- NOTE | 2020-10-29 17:03 | PCM.RX.CS ---
Consult Pharmacy has been consulted to manage selected antiobiotic: Vancomycin Type of Consult: New start Suspected Infection: Osteomyelitis Labs: Sodium 135 mmol/L (136-145) L 10/29/20 12:28 Potassium 4.2 mmol/L (3.5-5.1) 10/29/20 12:28 Chloride 100 mmol/L (98-107) 10/29/20 12:28 Carbon Dioxide 30.0 mmol/L (21.0-32.0) 10/29/20 12:28 Anion Gap 5 (5-15) 10/29/20 12:28 BUN 5 mg/dL (7-18) L 10/29/20 12:28 Creatinine 0.75 mg/dL (0.70-1.30) 10/29/20 12:28 Est GFR (MDRD) Af Amer 142 mL/min (>60) 10/29/20 12:28 Est GFR (MDRD) Non-Af 118 mL/min (>60) 10/29/20 12:28 BUN/Creatinine Ratio 6.7 RATIO (10-20) L 10/29/20 12:28 Glucose 112 mg/dL (74-106) H 10/29/20 12:28 Goal Trough: 15-20 mcg/mL Pharmacy Plan for Drug Dosing: NEW START IV VANCOMYCIN Consulting Physician: Dr. lA Indication: Osteomyelitis Goal Trough: 15-20 SrCr: 0.75 CrCl: 173 mL/min (using AdjBW = 103.9kg) Comments: Initial dose 2g IV x1 ordered and administered 10/29 @1649 Vancomcyin Dose: 1500mg IV Q8h to start 10/30/20 @0100 Pending Level: 10/30/20 @1630, prior to 4th toal dose per protocol Pharmacy Service will continue to monitor and adjust dosing as required.
--- NOTE | 2020-10-29 17:23 | PCM.CONS.GEN ---
Reason for Consult Date of Consultation: 10/29/20 Reason for Consultation: Right foot Osteomyelitis vs Charcot Neuroarthropathy History of Present Illness: The patient is a 50 year old male with multiple medical problems was admitted today for concern for osteomyelitis vs charcot neuroarthropathy of the right foot. Patient was seen in the ER last night for right foot pain. Xrays were taken and showed significant destructive changes to the tarsometatarsal joints of the right foot. WBC was normal, patient afebrile, but ESR and CRP significantly elevated. Patient has been following a the wound center with Dr. Otoole for healing 4th/5th ray amputation wound. Patient had 4th/5th ray amputation on the right foot in Jul 2020 due to osteomyelitis with significant infection. The patient was also diagnosed with a DVT to the lower extremity at that time but appears he did not complete full course of anticoagulation. Patient has swelling, and warmth to the right foot as well. Antibiotics have not been started this admission until a bone biopsy is completed. Patient relates his blood sugars have been better controlled. He relates he continues to smoke tobacco. Past Medical History Past Medical History (Chronic Problems): Chronic Problems (Last Reviewed 09/04/20 @ 09:28 by Renetta Bradley) Non-pressure chronic ulcer of other part of right foot with fat layer exposed (Chronic) Obese (Chronic) History of amputation of foot (Chronic) KRYSTAL (obstructive sleep apnea) (Chronic) Dry skin dermatitis (Chronic) Thrombocytopenia (Chronic) Osteoarthritis (Chronic) Bilateral lower extremity edema (Chronic) Type 2 diabetes mellitus (Chronic) History of esophageal disorder (Chronic) Hypertension (Chronic) Medical History: Medical History (Last Reviewed 09/04/20 @ 09:28 by Renetta Bradley) History of esophageal disorder (Chronic) Z87.19 Hypertension (Chronic) I10 Amputation of toe of left foot S98.132A 07/2019, pinkie toe DVT (deep venous thrombosis) (Inactive) I82.409 Allergies ketorolac [From Toradol] Adverse Reaction (Verified 10/28/20 19:29) Upset Stomach NSAIDS (Non-Steroidal Anti-Inflamma Adverse Reaction (Verified 10/28/20 19:29) Upset Stomach Home Medications: Ambulatory Orders Medication Instructions Recorded Metformin HCl 1,000 mg PO BID 01/23/20 Acetaminophen [Tylenol Tablet] 650 mg PO Q6H PRN PRN tab 07/23/20 Hydrocodone Bitart/Apap 5-325 1 tablet PO Q6H PRN PRN 3 Days #12 10/28/20 [[place] 5MG-325MG] tab Amox/Clavulanate Tablet [Augmentin 875 mg PO Q12H 10/29/20 Tablet] Doxycycline 100 mg PO BID 10/29/20 Lisinopril 20 mg PO DAILY 10/29/20 Sitagliptin Phosphate [Januvia] 100 mg PO DAILY 10/29/20 Surgical History: - - Right fourth fifth ray amputation partial Psychiatric History: No pertinent psych hx Smoking Status: Current every day smoker Tobacco Use: Cigarettes - *Family History Paternal Family History: Family History (Last Reviewed 09/04/20 @ 09:28 by Renetta Bradley) Mother Hypertension Diabetes Heart disease Sister Hypertension Diabetes Crohns disease Brother Diabetes History Items: - - Denies known paternal medical history including cardiac history. Patient Problems: Active and Suspected Problems (Last Reviewed 09/04/20 @ 09:28 by Renetta Bradley) Charcot arthropathy of midfoot (Suspected) Right foot pain (Acute) Osteomyelitis of left foot (Acute) - Physical Exam Vitals/I&O's: Vital Signs Temp Pulse Resp BP Pulse Ox 97.8 F 79 18 153/91 H 96 10/29/20 16:30 10/29/20 16:30 10/29/20 16:30 10/29/20 16:30 10/29/20 16:30 Oxygen Delivery Method Room Air Weight: 146.9 kg Body Mass Index (BMI) 45.1 Finger Stick Blood Glucose 138 Intake and Output for Last 24 Hours 10/27/20 10/28/20 10/29/20 23:59 23:59 23:59 Intake Total 1006.5 / 1006.5 Output Total 400 / 400 Balance 606.5 / 606.5 General: Alert, Oriented x3, Cooperative, No apparent distress Musculoskeletal: - - Right foot with edema and increased temperature. Midfoot is unstable right foot. Ulcers are healed right foot with no drainage, no cellulitis, no visible abscess. Psych/Mental Status: Normal Affect, Appropriate, Alert and oriented to time, place, person, mood and affect Laboratory Results 10/29/20 09:06: C-React Prot Ext Range Cancelled 10/29/20 12:28: WBC 7.9, RBC 4.94, Hgb 12.5 L, Hct 40.5, MCV 82.0, MCH 25.3 L, MCHC 30.9 L, RDW Std Deviation 43.9, RDW Coeff of Maria Fernanda 14.6, Plt Count 289, MPV 11.6, Immature Gran % (Auto) 1.400 H, Neut % (Auto) 76.7 H, Lymph % (Auto) 11.4 L, [place] % (Auto) 7.6, Eos % (Auto) 2.3, Baso % (Auto) 0.6, Absolute Neuts (auto) 6.1, Absolute Lymphs (auto) 0.90, Nucleated RBC % 0 10/29/20 12:28: Sodium 135 L, Potassium 4.2, Chloride 100, Carbon Dioxide 30.0, Anion Gap 5, BUN 5 L, Creatinine 0.75, Estim Creat Clear Calc 125.50, Est GFR (MDRD) Af Amer 142, Est GFR (MDRD) Non-Af 118, BUN/Creatinine Ratio 6.7 L, Glucose 112 H, Calcium 9.0, Total Bilirubin 0.40, AST 9 L, ALT 18, Alkaline Phosphatase 88, Total Protein 8.0, Albumin 2.4 L, Globulin 5.6 H, Albumin/Globulin Ratio 0.4 L 10/29/20 12:28: Hemoglobin A1c 6.8 H 10/29/20 12:28: Vitamin D 25-Hydroxy 10.6 10/29/20 12:28: C-React Prot Ext Range 81.70 H, Prealbumin 10.3 L 10/29/20 14:08: POC Glucose 111 H 10/29/20 16:43: POC Glucose 88 Current Medications Acetaminophen (Acetaminophen 325 Mg Tablet) 650 mg PO Q6H PRN PRN PRN Reason: Pain Score 1-10/Temp > 100.7 F Al Hydroxide/Mg Hydroxide (Mag Hydrox/Al Hydrox/Simeth 30 Ml Udc) 30 ml PO Q6H PRN PRN PRN Reason: Gastric Burning Albuterol Sulfate (Albuterol 2.5 Mg/3 Ml Vial.Neb.) 2.5 mg INHALATION Q2H PRN PRN PRN Reason: SOB/Wheezing Apixaban (Apixaban 5 Mg Tablet) 5 mg PO BID [facility] Dextrose (Dextrose 50%-Water 25 Gm/50 Ml Disp.Syrin) 0 gm IV X1 PRN; Protocol PRN Reason: Hypoglycemia Glucagon (Glucagon 1 Mg/Ml Syringe) 1 mg IM .X1 PRN PRN Reason: Hypoglycemia Hydromorphone HCl (Hydromorphone 0.5 Mg/0.5 Ml Syringe) 0.5 mg IV Q4H PRN PRN PRN Reason: Pain Score 6-10 Sodium Chloride () 250 mls @ 15 mls/hr IV .[id number] PRN PRN Reason: Saline Flush Last Infusion: 10/29/20 17:15 Dose: 0 mls/hr Documented by: Sodium Chloride () 250 mls @ 15 mls/hr IV .[id number] PRN PRN Reason: Additional IVPB Infusion Piperacillin Sod/Tazobactam (Sod 3.375 gm/ Sodium Chloride) 50 mls @ 12.5 mls/hr IV Q8 [facility] Vancomycin IV Pharmacy to Dose (1 each/ Sodium Chloride) 500 mls @ 250 mls/hr IV PRN PRN; Protocol PRN Reason: VANCO DOSING PROTOCOL Vancomycin HCl 2,000 mg/ (Sodium Chloride) 540 mls @ 250 mls/hr IV X1 ONE Stop: 10/29/20 18:39 Last Admin: 10/29/20 16:49 Dose: 250 mls/hr Documented by: Vancomycin HCl 1,500 mg/ (Sodium Chloride) 530 mls @ 250 mls/hr IV Q8H [facility] Insulin Human Lispro (Insulin Lispro 100 Unit/Ml Insuln.Pen) 0 unit SC ACHS [facility]; Protocol Last Admin: 10/29/20 16:44 Dose: Not Given Documented by: Insulin Human NPH (Insulin Nph Human 100 Units/Ml Pen) 5 units SC QHS [facility] Linagliptin (Linagliptin 5 Mg Tablet) 5 mg PO DAILY [facility] Lisinopril (Lisinopril 20 Mg Tablet) 20 mg PO DAILY [facility] Nitroglycerin (Nitroglycerin (Inpatient Use) 0.4 Mg Tab.Subl) 0.4 mg SL Q5M PRN PRN Reason: CARDIAC/CHEST PAIN Oxycodone HCl (Oxycodone 5 Mg Tablet) 5 mg PO Q4H PRN PRN PRN Reason: Pain Score 4-5 Prochlorperazine Edisylate (Prochlorperazine 10 Mg/2 Ml Vial) 5 mg IV Q4H PRN PRN PRN Reason: Breakthrough Nausea/Vomiting Senna/Docusate Sodium (Senna/Docusate Sodium 1 Tablet) 2 tablet PO BID PRN PRN PRN Reason: Constipation Sodium Chloride (0.9% Saline Lock 10 Ml Syringe) 10 - 40 ml IV UD PRN PRN Reason: SALINE FLUSH Assessment/Plan All Active Problems (Last Reviewed 09/04/20 @ 09:28 by Renetta Bradley) Right foot pain (Acute) Osteomyelitis of left foot (Acute) Osteomyelitis of toe of right foot (Resolved) Osteomyelitis right tarsometatasal joints vs Charcot neuroarthropathy Diabetes with peripheral neuropathy Tobacco use Vitamin D deficiency Other comorbidities Reviewed diagnostic data. MRI of the right foot has been obtained, and reviewed, I did review with the radiologist, who relates findings a concerning for osteomyelitis but could also be Charcot neuroarthropathy. Right foot xrays with significant destructive changes to the tarsometatarsal joints, there is no gas to the tissues, there is no abscess on MRI. Discussed bone biopsy with patient for further evaluation, which he would like to proceed with. Hold antibiotics until after biopsy. No weightbearing right foot. Keep foot elevated. Vitamin D check. Patient with hx of DVT, venous doppler to recheck which has been ordered by hospitalist/medicine team. Again recommended smoking/tobacco cessation with patient and the importance of this to help optimize foot healing. Patient is at very high risk for limb loss given severity of the bone changes to the foot. Podiatry will continue to follow. Discussed with Dr. Al.
[2020-10-29] MEDS: APIXABAN 5 MG TABLET PO (21:28)
[2020-10-29] MEDS: Insulin NPH Human 100 UNITS/ML PEN SC (21:35)
[2020-10-29 21:45] LABS: Bedside Glucose 134 mg/dL (70-110)
[2020-10-30 04:30] VITALS: BP 128/68; PULSE 72; RESP 16; TEMP 36.7; O2SAT 96
[2020-10-30] MEDS: oxyCODONE 5 MG Tablet PO (06:16)
[2020-10-30 06:21] LABS: Bedside Glucose 106 mg/dL (70-110)
[2020-10-30 06:42] LABS: Absolute Lymphocyte Count 1.03 X10^3/uL (0.83-4.51); Absolute Neutrophil Count 6.7 X10^3/uL (2.0-7.7); Basophil# 0.03 X10^3/uL; Basophil% 0.3 % (0-1); Eosinophils% 2.3 % (0-5); Hematocrit 40.1 % (40-54); Hemoglobin 12.3 g/dL (13.0-16.5); Lymphocyte # 1.03 X10^3/ul (0.83-4.51); Lymphocyte % 11.8 % (19-41); Mean Corp Hgb Conc 30.7 g/dL (32-36); Mean Corpuscular Hgb 25.1 pg (27.0-32.0); Mean Corpuscular Volume 81.8 fL (80-94); Mean Platelet Vol. 11.3 fl (6.2-12.0); Monocyte# 0.72 X10^3/uL; Monocyte% 8.2 % (0-10); NRBC Flagged by Analyzer 0 % (0-5); Neutrophil # 6.68 X10^3/uL (2.7-7.7); Neutrophil % 76.4 % (47-70); Platelet Count 260 K/mm3 (150-450); RBC Distribution Width CV 14.6 % (11.6-14.6); RBC Distribution Width SD 43.5 fl (35.1-43.9); White Blood Count 8.8 K/mm3 (4.4-11.0)
[2020-10-30 06:50] LABS: International Normalized Ratio 1.3; Prothrombin Time (Protime)PT. 15.2 SECONDS (11.7-14.9)
[2020-10-30 07:04] LABS: Magnesium 2.2 mg/dL (1.6-2.6); Phosphorus 3.2 mg/dL (2.5-4.9)
--- NOTE | 2020-10-30 07:18 | PN_ITS ---
Patient Problems: Active and Suspected Problems (Last Reviewed 09/04/20 @ 09:28 by Renetta Bradley) Charcot arthropathy of midfoot (Suspected) Right foot pain (Acute) Osteomyelitis of left foot (Acute) Subjective: Patient was seen this morning for follow up on right foot. He relates he slept well, and relates foot is feeling better. No complaints of fever, chills, nausea or vomiting. - Physical Exam Vitals/I&O's: Vital Signs Temp Pulse Resp BP Pulse Ox 98.1 F 72 16 128/68 H 96 10/30/20 04:30 10/30/20 04:30 10/30/20 04:30 10/30/20 04:30 10/30/20 04:30 Oxygen Delivery Method Room Air Weight: 147.7 kg Body Mass Index (BMI) 45.1 Finger Stick Blood Glucose 138 Intake and Output for Last 24 Hours 10/28/20 10/29/20 10/30/20 23:59 23:59 23:59 Intake Total 1546.5 / 1546.5 1780 / 1780 Output Total 400 / 400 1350 / 1350 Balance 1146.5 / 1146.5 430 / 430 General: Alert, Oriented x3, Cooperative, No apparent distress Extremities: Capillary Refill Less than 3 Seconds, No Calf Tenderness, - - Two small incisions to the right foot - well coapted, no dehiscence, sutures are intact, there is no cellulitis to the foot or ankle bilateral, no open lesions bilateral foot or ankle. Psych/Mental Status: Alert and oriented to time, place, person, mood and affect Laboratory Results 10/29/20 09:06: C-React Prot Ext Range Cancelled 10/29/20 12:28: WBC 7.9, RBC 4.94, Hgb 12.5 L, Hct 40.5, MCV 82.0, MCH 25.3 L, MCHC 30.9 L, RDW Std Deviation 43.9, RDW Coeff of Maria Fernanda 14.6, Plt Count 289, MPV 11.6, Immature Gran % (Auto) 1.400 H, Neut % (Auto) 76.7 H, Lymph % (Auto) 11.4 L, [place] % (Auto) 7.6, Eos % (Auto) 2.3, Baso % (Auto) 0.6, Absolute Neuts (auto) 6.1, Absolute Lymphs (auto) 0.90, Nucleated RBC % 0 10/29/20 12:28: Sodium 135 L, Potassium 4.2, Chloride 100, Carbon Dioxide 30.0, Anion Gap 5, BUN 5 L, Creatinine 0.75, Estim Creat Clear Calc 125.50, Est GFR (MDRD) Af Amer 142, Est GFR (MDRD) Non-Af 118, BUN/Creatinine Ratio 6.7 L, Glucose 112 H, Calcium 9.0, Total Bilirubin 0.40, AST 9 L, ALT 18, Alkaline Phosphatase 88, Total Protein 8.0, Albumin 2.4 L, Globulin 5.6 H, Albumin/Globulin Ratio 0.4 L 10/29/20 12:28: Hemoglobin A1c 6.8 H 10/29/20 12:28: Vitamin D 25-Hydroxy 10.6 10/29/20 12:28: C-React Prot Ext Range 81.70 H, Prealbumin 10.3 L 10/29/20 14:08: POC Glucose 111 H 10/29/20 16:43: POC Glucose 88 10/29/20 21:34: POC Glucose 134 H 10/30/20 06:10: WBC 8.8, RBC 4.90, Hgb 12.3 L, Hct 40.1, MCV 81.8, MCH 25.1 L, MCHC 30.7 L, RDW Std Deviation 43.5, RDW Coeff of Maria Fernanda 14.6, Plt Count 260, MPV 11.3, Immature Gran % (Auto) 1.000 H, Neut % (Auto) 76.4 H, Lymph % (Auto) 11.8 L, [place] % (Auto) 8.2, Eos % (Auto) 2.3, Baso % (Auto) 0.3, Absolute Neuts (auto) 6.7, Absolute Lymphs (auto) 1.03, Nucleated RBC % 0 10/30/20 06:10: PT 15.2 H, INR 1.3 10/30/20 06:10: Phosphorus 3.2, Magnesium 2.2 10/30/20 06:14: POC Glucose 106 Current Medications Acetaminophen (Acetaminophen 325 Mg Tablet) 650 mg PO Q6H PRN PRN PRN Reason: Pain Score 1-10/Temp > 100.7 F Al Hydroxide/Mg Hydroxide (Mag Hydrox/Al Hydrox/Simeth 30 Ml Udc) 30 ml PO Q6H PRN PRN PRN Reason: Gastric Burning Albuterol Sulfate (Albuterol 2.5 Mg/3 Ml Vial.Neb.) 2.5 mg INHALATION Q2H PRN PRN PRN Reason: SOB/Wheezing Apixaban (Apixaban 5 Mg Tablet) 5 mg PO BID [facility] Last Admin: 10/29/20 21:28 Dose: 5 mg Documented by: Dextrose (Dextrose 50%-Water 25 Gm/50 Ml Disp.Syrin) 0 gm IV X1 PRN; Protocol PRN Reason: Hypoglycemia Glucagon (Glucagon 1 Mg/Ml Syringe) 1 mg IM .X1 PRN PRN Reason: Hypoglycemia Hydromorphone HCl (Hydromorphone 0.5 Mg/0.5 Ml Syringe) 0.5 mg IV Q4H PRN PRN PRN Reason: Pain Score 6-10 Sodium Chloride () 250 mls @ 15 mls/hr IV .[id number] PRN PRN Reason: Saline Flush Last Infusion: 10/29/20 18:59 Dose: 15 mls/hr Documented by: Sodium Chloride () 250 mls @ 15 mls/hr IV .[id number] PRN PRN Reason: Additional IVPB Infusion Piperacillin Sod/Tazobactam (Sod 3.375 gm/ Sodium Chloride) 50 mls @ 12.5 mls/hr IV Q8 [facility] Last Admin: 10/30/20 06:09 Dose: 12.5 mls/hr Documented by: Vancomycin IV Pharmacy to Dose (1 each/ Sodium Chloride) 500 mls @ 250 mls/hr IV PRN PRN; Protocol PRN Reason: VANCO DOSING PROTOCOL Vancomycin HCl 1,500 mg/ (Sodium Chloride) 530 mls @ 250 mls/hr IV Q8H [facility] Last Infusion: 10/30/20 03:11 Dose: Infused Documented by: Insulin Human Lispro (Insulin Lispro 100 Unit/Ml Insuln.Pen) 0 unit SC ACHS [facility]; Protocol Last Admin: 10/30/20 06:16 Dose: Not Given Documented by: Insulin Human NPH (Insulin Nph Human 100 Units/Ml Pen) 5 units SC QHS [facility] Last Admin: 10/29/20 21:35 Dose: 5 u Documented by: Linagliptin (Linagliptin 5 Mg Tablet) 5 mg PO DAILY [facility] Lisinopril (Lisinopril 20 Mg Tablet) 20 mg PO DAILY [facility] Nitroglycerin (Nitroglycerin (Inpatient Use) 0.4 Mg Tab.Subl) 0.4 mg SL Q5M PRN PRN Reason: CARDIAC/CHEST PAIN Oxycodone HCl (Oxycodone 5 Mg Tablet) 5 mg PO Q4H PRN PRN PRN Reason: Pain Score 4-5 Last Admin: 10/30/20 06:16 Dose: 5 mg Documented by: Prochlorperazine Edisylate (Prochlorperazine 10 Mg/2 Ml Vial) 5 mg IV Q4H PRN PRN PRN Reason: Breakthrough Nausea/Vomiting Senna/Docusate Sodium (Senna/Docusate Sodium 1 Tablet) 2 tablet PO BID PRN PRN PRN Reason: Constipation Sodium Chloride (0.9% Saline Lock 10 Ml Syringe) 10 - 40 ml IV UD PRN PRN Reason: SALINE FLUSH Medical Necessity - Tobacco Use Smoking Status: Current every day smoker Tobacco Use: Cigarettes Assessment/Plan All Active Problems (Last Reviewed 09/04/20 @ 09:28 by Renetta Bradley) Right foot pain (Acute) Osteomyelitis of left foot (Acute) Osteomyelitis of toe of right foot (Resolved) Osteomyelitis right tarsometatasal joints vs Charcot neuroarthropathy Diabetes with peripheral neuropathy Tobacco use Vitamin D deficiency Other comorbidities Reviewed diagnostic data. MRI of the right foot has been obtained, and reviewed, I did review with the radiologist, who relates findings a concerning for osteomyelitis but could also be Charcot neuroarthropathy. Right foot xrays with significant destructive changes to the tarsometatarsal joints, there is no gas to the tissues, there is no abscess on MRI. Bone biopsy has been obtained and results are pending at this time. Patient is on IV antibiotics - Vancomycin and Zosyn. No weightbearing right foot. Keep foot elevated. Vitamin D was noted to be lowat 10.6 - recommend Vitamin D supplementation. Patient with hx of DVT, venous doppler to recheck which has been ordered by hospitalist/medicine team. Again recommended smoking/tobacco cessation with patient and the importance of this to help optimize foot healing. Patient is at very high risk for limb loss given severity of the bone changes to the foot. Podiatry will continue to follow.
[2020-10-30 07:41] VITALS: O2SAT 91
[2020-10-30] MEDS: LINAGLIPTIN 5 MG TABLET PO (09:08)
[2020-10-30] MEDS: APIXABAN 5 MG TABLET PO ×2 (09:08→21:57)
[2020-10-30] MEDS: Lisinopril 20 MG Tablet PO (09:08)
--- NOTE | 2020-10-30 09:25 | CASEMGMT ---
Addendum entered by Grisel Vincent 10/30/20 10:12: Pt states he received Meals on Wheels and also family brings food to him at times. Original Note: RN CM CALL CENTER NURSE CM to room to meet with pt for initial transition planning/care coordination assessment. RN CM introduced self and role at [facility]. Patient resting in bed, alert and oriented. Patient willing to participate in assessment and is able to answer all questions appropriately. Care providers, pharmacy, and demographics verified. PCP: Dr Raymundo Specialists: Dr Ramos, chief technician. Dr Otoole [facility] Preferred Pharmacy: [facility] Insurance: [employer] Prescription Benefit: yes Living Will/HPOA: none LNOK: Brother Living Arrangements: Patient lives alone in a first floor apartment with no steps to enter. Patient states he is independent at home. Transportation: [employer], family DME: Patient states he has grab bars, glucometer, and walker at home. Pt states HHC is working on getting him a W/C, but he has not received it yet. HHC: Patient has had [facility] in the past. Is active w/[facility]: nurse comes 2 x's/week for dressing changes. Call placed to [facility] at this time and spoke w/Giovana. She was made aware pt has been admitted to [facility]. Patient wishes to discharge home with resumption of [facility], if he is able to, but will consider SNF if necessary . CM to follow for discharge planning needs that may arise. Discharge Plan: TBD CM will monitor for HHC vs SNF pending course of treatment. Adriano MTZ RN, CM
[2020-10-30 10:30] VITALS: BP 133/82; PULSE 88; RESP 16; TEMP 36.7; O2SAT 95
[2020-10-30 12:51] LABS: Bedside Glucose 131 mg/dL (70-110)
--- NOTE | 2020-10-30 14:38 | CASEMGMT ---
Call from Rosa at [facility] and she states that they did try to set pt up with a wheelchair but when the [employer] company called to deliver, pt declined w/c at that time. Rosa states to let her know about [facility] and if pt will need this set up again. CM to follow. Jennifer RAMIREZ CM
[2020-10-30 16:30] VITALS: BP 122/70; PULSE 80; RESP 16; TEMP 36.6; O2SAT 96
--- NOTE | 2020-10-30 17:13 | CON.PCM_ITS ---
Problem List (1) Right foot pain Status: Acute Reason for Consult: R foot pain Consulted by: Dr. John History of Present Illness: The patient is a 50 year old M with h/o DM foot osteo, presented with 2-3 weeks of R foot pain, some swelling. No redness or drainage. No recent abx other than doxy and augmentin from ED 10/28. Admitted, taken to OR 10/29 for bone biopsies. Then started on vanc/zosyn. No fever, no n/v/d. No covid vaccinat ion. Full ROS performed and neg except as noted above. - Medical History Past Medical History (Chronic Problems): Chronic Problems (Last Reviewed 09/04/20 @ 09:28 by Renetta Bradley) Non-pressure chronic ulcer of other part of right foot with fat layer exposed (Chronic) Obese (Chronic) History of amputation of foot (Chronic) KRYSTAL (obstructive sleep apnea) (Chronic) Dry skin dermatitis (Chronic) Thrombocytopenia (Chronic) Osteoarthritis (Chronic) Bilateral lower extremity edema (Chronic) Type 2 diabetes mellitus (Chronic) History of esophageal disorder (Chronic) Hypertension (Chronic) Allergies/Adverse Reactions: Allergies ketorolac [From Toradol] Adverse Reaction (Verified 10/28/20 19:29) Upset Stomach NSAIDS (Non-Steroidal Anti-Inflamma Adverse Reaction (Verified 10/28/20 19:29) Upset Stomach Home Medications: Ambulatory Orders Medication Instructions Recorded Metformin HCl 1,000 mg PO BID 01/23/20 Acetaminophen [Tylenol Tablet] 650 mg PO Q6H PRN PRN tab 07/23/20 Hydrocodone Bitart/Apap 5-325 1 tablet PO Q6H PRN PRN 3 Days #12 10/28/20 [[place] 5MG-325MG] tab Amox/Clavulanate Tablet [Augmentin 875 mg PO Q12H 10/29/20 Tablet] Doxycycline 100 mg PO BID 10/29/20 Lisinopril 20 mg PO DAILY 10/29/20 Sitagliptin Phosphate [Januvia] 100 mg PO DAILY 10/29/20 - Social History SMOKING STATUS:: Former smoker Vital Signs Temp Pulse Resp BP Pulse Ox 98.1 F 88 16 133/82 H 95 10/30/20 10:30 10/30/20 10:30 10/30/20 10:30 10/30/20 10:30 10/30/20 10:30 Oxygen Delivery Method Room Air Weight: 147.7 kg Body Mass Index (BMI) 45.1 Finger Stick Blood Glucose 138 Microbiology Past 72 Hours 10/29/20 Unknown Gram Stain - Final Bone - Right Foot 10/29/20 Unknown Gram Stain - Final Bone - Right Foot Laboratory Tests Past 24 Hrs 10/30/20 10/30/20 10/30/20 06:10 06:10 06:10 WBC 8.8 RBC 4.90 Hgb 12.3 L Hct 40.1 MCV 81.8 MCH 25.1 L MCHC 30.7 L RDW Std Deviation 43.5 RDW Coeff of Maria Fernanda 14.6 Plt Count 260 MPV 11.3 Immature Gran % (Auto) 1.000 H Neut % (Auto) 76.4 H Lymph % (Auto) 11.8 L [place] % (Auto) 8.2 Eos % (Auto) 2.3 Baso % (Auto) 0.3 Absolute Neuts (auto) 6.7 Absolute Lymphs (auto) 1.03 Nucleated RBC % 0 PT 15.2 H INR 1.3 Phosphorus 3.2 Magnesium 2.2 Vancomycin Trough 10/30/20 16:21 WBC RBC Hgb Hct MCV MCH MCHC RDW Std Deviation RDW Coeff of Maria Fernanda Plt Count MPV Immature Gran % (Auto) Neut % (Auto) Lymph % (Auto) [place] % (Auto) Eos % (Auto) Baso % (Auto) Absolute Neuts (auto) Absolute Lymphs (auto) Nucleated RBC % PT INR Phosphorus Magnesium Vancomycin Trough Pending - Other Studies Radiology: [] reviewed Other Studies: [] Route of nutrition/ use of supplements: [] Nutritional Intake: [] IV Site: [] [place] Catheter: [] - Physical Exam General: Alert, Oriented x3, Cooperative, No apparent distress HEENT: Atraumatic, PERRLA, EOMI Neck: Supple, No Nodes Lungs: Clear to auscultation, Normal air movement Cardiovascular: Regular rate, Regular Rhythm Abdomen: Soft, Non Tender, Non-Distended Extremities: Edema Skin: Ulcer/ Wound - foot wrapped IV Site: Peripheral, without redness Musculoskeletal: No Tenderness to Palpation of Joints or Extremities Neurological: Cranial nerves II-XII grossly intact - Assessment/Plan Antibiotics: [] Assessment/Plan: [] Active and Suspected Problems (Last Reviewed 09/04/20 @ 09:28 by Renetta Bradley) Charcot arthropathy of midfoot (Suspected) Right foot pain (Acute) Osteomyelitis of left foot (Acute) On empiric vanc/zosyn, bone bx and cx from 10/29 pending. Recommended covid vaccine after discharge. Will follow, thank you
[2020-10-30 17:20] LABS: Vancomycin, Trough Level 16.6 ug/mL (5.0-15.0)
[2020-10-30 17:50] LABS: Bedside Glucose 146 mg/dL (70-110)
--- NOTE | 2020-10-30 18:01 | PN_ITS ---
Patient Problems: Active and Suspected Problems (Last Reviewed 09/04/20 @ 09:28 by Renetta Bradley) Charcot arthropathy of midfoot (Suspected) Right foot pain (Acute) Osteomyelitis of left foot (Acute) Reason for Visit: Follow-up for severe right foot pain most probably rapid progressive osteomyelitis Objective: Patient does not have shortness of breath or chest pain or fever. General: Alert, Oriented x3, Cooperative HEENT: Atraumatic, PERRLA, EOMI, Normocephalic Oral: No Gingival or Mucosal Lesions/ Ulcerations Neck: Supple, No JVD, Negative Carotid Bruits Lungs: Air entry diminished in bilateral lung bases. No crepitation/rhonchi Cardiovascular: Regular rate, Regular Rhythm, Normal S1, Normal S2, No murmurs Abdomen: Bowel Sounds Present, Soft, Non Tender, Non-Distended : No renal angle tenderness. No suprapubic tenderness. Extremities: Right second, fourth and fifth toe amputation. Jens wrap bandage on. No edema. Skin: No rashes, No breakdown Musculoskeletal: Tenderness present over right midfoot joints. Neurological: Cranial nerves II-XII grossly intact, Deep Tendon Reflexes 2+/4 and Symmetrical, Neuro grossly intact Psych/Mental Status: Normal Affect, Appropriate. Vitals/I&O's: Vital Signs Temp Pulse Resp BP Pulse Ox 97.9 F 80 16 122/70 H 96 10/30/20 16:30 10/30/20 16:30 10/30/20 16:30 10/30/20 16:30 10/30/20 16:30 Oxygen Delivery Method Room Air Weight: 325 lb 9.964 oz Body Mass Index (BMI) 45.1 Finger Stick Blood Glucose 138 Intake and Output for Last 24 Hours 10/28/20 10/29/20 10/30/20 23:59 23:59 23:59 Intake Total 1546.5 / 1546.5 2603.5 / 2603.5 Output Total 400 / 400 2400 / 2400 Balance 1146.5 / 1146.5 203.5 / 203.5 Microbiology Past 72 Hours 10/29/20 Unknown Bone - Right Foot Gram Stain - Final 10/29/20 Unknown Bone - Right Foot Gram Stain - Final Laboratory Results 10/29/20 21:34: POC Glucose 134 H 10/30/20 06:10: WBC 8.8, RBC 4.90, Hgb 12.3 L, Hct 40.1, MCV 81.8, MCH 25.1 L, MCHC 30.7 L, RDW Std Deviation 43.5, RDW Coeff of Maria Fernanda 14.6, Plt Count 260, MPV 11.3, Immature Gran % (Auto) 1.000 H, Neut % (Auto) 76.4 H, Lymph % (Auto) 11.8 L, [place] % (Auto) 8.2, Eos % (Auto) 2.3, Baso % (Auto) 0.3, Absolute Neuts (auto) 6.7, Absolute Lymphs (auto) 1.03, Nucleated RBC % 0 10/30/20 06:10: PT 15.2 H, INR 1.3 10/30/20 06:10: Phosphorus 3.2, Magnesium 2.2 10/30/20 06:14: POC Glucose 106 10/30/20 11:49: POC Glucose 131 H 10/30/20 16:21: Vancomycin Trough 16.6 H 10/30/20 17:44: POC Glucose 146 H Current Medications Acetaminophen (Acetaminophen 325 Mg Tablet) 650 mg PO Q6H PRN PRN PRN Reason: Pain Score 1-10/Temp > 100.7 F Al Hydroxide/Mg Hydroxide (Mag Hydrox/Al Hydrox/Simeth 30 Ml Udc) 30 ml PO Q6H PRN PRN PRN Reason: Gastric Burning Albuterol Sulfate (Albuterol 2.5 Mg/3 Ml Vial.Neb.) 2.5 mg INHALATION Q2H PRN PRN PRN Reason: SOB/Wheezing Apixaban (Apixaban 5 Mg Tablet) 5 mg PO BID [facility] Last Admin: 10/30/20 09:08 Dose: 5 mg Documented by: Dextrose (Dextrose 50%-Water 25 Gm/50 Ml Disp.Syrin) 0 gm IV X1 PRN; Protocol PRN Reason: Hypoglycemia Ergocalciferol (Ergocalciferol 50,000 Unit Capsule) 50,000 unit PO Q7D [facility] Glucagon (Glucagon 1 Mg/Ml Syringe) 1 mg IM .X1 PRN PRN Reason: Hypoglycemia Hydromorphone HCl (Hydromorphone 0.5 Mg/0.5 Ml Syringe) 0.5 mg IV Q4H PRN PRN PRN Reason: Pain Score 6-10 Sodium Chloride () 250 mls @ 15 mls/hr IV .[id number] PRN PRN Reason: Saline Flush Last Infusion: 10/30/20 11:13 Dose: Infused Documented by: Sodium Chloride () 250 mls @ 15 mls/hr IV .[id number] PRN PRN Reason: Additional IVPB Infusion Piperacillin Sod/Tazobactam (Sod 3.375 gm/ Sodium Chloride) 50 mls @ 12.5 mls/hr IV Q8 [facility] Last Admin: 10/30/20 15:57 Dose: 12.5 mls/hr Documented by: Vancomycin IV Pharmacy to Dose (1 each/ Sodium Chloride) 500 mls @ 250 mls/hr IV PRN PRN; Protocol PRN Reason: VANCO DOSING PROTOCOL Vancomycin HCl 1,500 mg/ (Sodium Chloride) 530 mls @ 250 mls/hr IV Q8H [facility] Last Admin: 10/30/20 17:30 Dose: 250 mls/hr Documented by: Insulin Human Lispro (Insulin Lispro 100 Unit/Ml Insuln.Pen) 0 unit SC ACHS [facility]; Protocol Last Admin: 10/30/20 17:45 Dose: Not Given Documented by: Insulin Human NPH (Insulin Nph Human 100 Units/Ml Pen) 5 units SC QHS [facility] Last Admin: 10/29/20 21:35 Dose: 5 u Documented by: Linagliptin (Linagliptin 5 Mg Tablet) 5 mg PO DAILY [facility] Last Admin: 10/30/20 09:08 Dose: 5 mg Documented by: Lisinopril (Lisinopril 20 Mg Tablet) 20 mg PO DAILY [facility] Last Admin: 10/30/20 09:08 Dose: 20 mg Documented by: Nitroglycerin (Nitroglycerin (Inpatient Use) 0.4 Mg Tab.Subl) 0.4 mg SL Q5M PRN PRN Reason: CARDIAC/CHEST PAIN Oxycodone HCl (Oxycodone 5 Mg Tablet) 5 mg PO Q4H PRN PRN PRN Reason: Pain Score 4-5 Last Admin: 10/30/20 06:16 Dose: 5 mg Documented by: Prochlorperazine Edisylate (Prochlorperazine 10 Mg/2 Ml Vial) 5 mg IV Q4H PRN PRN PRN Reason: Breakthrough Nausea/Vomiting Senna/Docusate Sodium (Senna/Docusate Sodium 1 Tablet) 2 tablet PO BID PRN PRN PRN Reason: Constipation Sodium Chloride (0.9% Saline Lock 10 Ml Syringe) 10 - 40 ml IV UD PRN PRN Reason: SALINE FLUSH STROKE Vital Signs/Narrative: Vital Signs Temp Pulse Resp BP Pulse Ox 10/30/20 16:30 97.9 F 80 16 122/70 H 96 Medical Necessity - Tobacco Use Smoking Status: Current every day smoker Tobacco Use: Cigarettes Assessment/Plan All Active Problems (Last Reviewed 09/04/20 @ 09:28 by Renetta Bradley) Right foot pain (Acute) Osteomyelitis of left foot (Acute) Osteomyelitis of toe of right foot (Resolved) There is a 50-year-old patient who was admitted from wound center for right foot pain for 3 weeks. 1.. Persistent right foot pain with concern of infection/osteomyelitis: Radiologist Dr. Velarde called me to inform that patient has rapidly pro gressive bone destruction of right midfoot associated with soft tissue swelling, joint effusion and bone marrow edema suggestive of acute mastoiditis. Discussed with skoog machine operator Dr. Ramos. Patient is going for bone biopsy. Will start antibiotic after bone biopsy. Previous bone culture in July 2020 showed MRSA, Streptococcus agalactiae, Fusobacterium, anaerobic cocci, pseudomonas, Clostridium and bacteroids species. Patient had arterial Doppler study in July, and reported no evidence of significant arterial occlusive disease lower extremities bilaterally. Resting KRIS and distal brachial indices normal bilaterally. 10/30: Patient had bone biopsy done on 10/29. Started on IV vancomycin and Zosyn. Seen by ID. Initial Gram stain does not show organism. Patient did not had Co vid vaccine. She had low vitamin D 25 hydroxy therefore started on vitamin D replacement. 2. Right lower extremity DVT in July 2020. Patient only had 1 month of probably Eliquis. Will repeat venous Doppler to see the status of blood clot. 3. Type 2 diabetes mellitus-hold oral regimen. A1c 10.3% on July 17. Repeat A1c. Continue Accu-Cheks and before meals and at bedtime with a scheduled dose insulin 4. Hypertension-blood pressure is well controlled. Continue home medications 4. Morbid obesity-encouraged diet lifestyle applications. 5. Tobacco dependence-encourage cessation. DVT prophylaxis-patient is going for surgery therefore start Eliquis 2.5 mg twice daily after 6 to 8 hours of surgery when hemostasis is achieved. If venous Doppler positive of VTE, will need therapeutic dose of Eliquis. Clinical Impression(s) from Imaging Studies Lower Extremity MRI 10/29/20 09:02 IMPRESSION: Advanced progressive midfoot bone marrow replacement and bone destruction with significant soft tissue swelling, joint effusions and bone marrow edema (findings highly suspicious for acute osteomyelitis versus rapidly progressing Charcot arthropathy; correlate WBC, blood cultures, ESR and CRP) Chronic Lisfranc ligament rupture Moderate peroneus longus tendinosis and mild extensor digitorum tenosynovitis Diffuse soft tissue swelling/cellulitis with wound/ulceration Inpatient E&M: 04020 Subs Hosp L2
[2020-10-30 22:02] VITALS: BP 119/70; PULSE 82; RESP 18; TEMP 36.9; O2SAT 97
--- NOTE | 2020-10-30 22:05 | PCM.RX.CS ---
Consult Pharmacy has been consulted to manage selected antiobiotic: Vancomycin Type of Consult: Follow-up Suspected Infection: Skin/Soft tissue Labs: Sodium 135 mmol/L (136-145) L 10/29/20 12:28 Potassium 4.2 mmol/L (3.5-5.1) 10/29/20 12:28 Chloride 100 mmol/L (98-107) 10/29/20 12:28 Carbon Dioxide 30.0 mmol/L (21.0-32.0) 10/29/20 12:28 Anion Gap 5 (5-15) 10/29/20 12:28 BUN 5 mg/dL (7-18) L 10/29/20 12:28 Creatinine 0.75 mg/dL (0.70-1.30) 10/29/20 12:28 Est GFR (MDRD) Af Amer 142 mL/min (>60) 10/29/20 12:28 Est GFR (MDRD) Non-Af 118 mL/min (>60) 10/29/20 12:28 BUN/Creatinine Ratio 6.7 RATIO (10-20) L 10/29/20 12:28 Glucose 112 mg/dL (74-106) H 10/29/20 12:28 Vancomycin Trough 16.6 ug/mL (5.0-15.0) H 10/30/20 16:21 Microbiology: Microbiology 10/29/20 Unknown Bone - Right Foot Gram Stain - Final 10/29/20 Unknown Bone - Right Foot Gram Stain - Final Goal Trough: 15-20 mcg/mL Pharmacy Plan for Drug Dosing: Pharmacy Service will continue to monitor and adjust dosing as required. TROUGH 16.6 NO CHANGES FOLLOW UP TROUGH IN 4 DAYS Labs to be done on [date and time ordered]: 11/03 @ 5501
[2020-10-30 22:36] LABS: Bedside Glucose 110 mg/dL (70-110)
[2020-10-31 03:30] VITALS: BP 130/78; PULSE 84; RESP 18; TEMP 36.8; O2SAT 97
[2020-10-31] MEDS: 0.9% Saline Lock 10 ML Syringe IV (06:28)
[2020-10-31 06:45] LABS: Bedside Glucose 106 mg/dL (70-110)
--- NOTE | 2020-10-31 07:00 | NURSING ---
Pt transferred to Room 312 at this time. Report given to Pamella RAMIREZ. No concerns voiced by pt. Pt being transported by CLIENT EVALUATOR. All belongings and medications with pt.
--- NOTE | 2020-10-31 07:56 | PN_ITS ---
Patient Problems: Active and Suspected Problems (Last Reviewed 09/04/20 @ 09:28 by Renetta Bradley) Charcot arthropathy of midfoot (Suspected) Right foot pain (Acute) Osteomyelitis of left foot (Acute) Subjective: Patient was seen this morning. He relates he wants to go home. No fever, chills, nausea or vomiting. - Physical Exam Vitals/I&O's: Vital Signs Temp Pulse Resp BP Pulse Ox 98.2 F 84 18 130/78 H 97 10/31/20 03:30 10/31/20 03:30 10/31/20 03:30 10/31/20 03:30 10/31/20 03:30 Oxygen Delivery Method Room Air Weight: 149.4 kg Body Mass Index (BMI) 45.1 Finger Stick Blood Glucose 138 Intake and Output for Last 24 Hours 10/29/20 10/30/20 10/31/20 23:59 23:59 23:59 Intake Total 1546.5 / 1546.5 3183.5 / 3483.5 880.00 / 880.00 Output Total 400 / 400 2400 / 3125 2024 / 2024 Balance 1146.5 / 1146.5 783.5 / 358.5 -1145.00 / -1145.00 General: Alert, Oriented x3, Cooperative, No apparent distress Skin: - - Incision sites well coapted, no dehiscence, no cellulitis, no visible abscess, no fluctuance, no crepitus, no maloder to the right foot. Psych/Mental Status: Normal Affect, Alert and oriented to time, place, person, mood and affect Microbiology Past 72 Hours 10/29/20 Unknown Bone - Right Foot Gram Stain - Final 10/29/20 Unknown Bone - Right Foot Gram Stain - Final Laboratory Results 10/30/20 11:49: POC Glucose 131 H 10/30/20 16:21: Vancomycin Trough 16.6 H 10/30/20 17:44: POC Glucose 146 H 10/30/20 22:00: POC Glucose 110 10/31/20 06:26: POC Glucose 106 Current Medications Acetaminophen (Acetaminophen 325 Mg Tablet) 650 mg PO Q6H PRN PRN PRN Reason: Pain Score 1-10/Temp > 100.7 F Al Hydroxide/Mg Hydroxide (Mag Hydrox/Al Hydrox/Simeth 30 Ml Udc) 30 ml PO Q6H PRN PRN PRN Reason: Gastric Burning Albuterol Sulfate (Albuterol 2.5 Mg/3 Ml Vial.Neb.) 2.5 mg INHALATION Q2H PRN PRN PRN Reason: SOB/Wheezing Apixaban (Apixaban 5 Mg Tablet) 5 mg PO BID [facility] Last Admin: 10/30/20 21:57 Dose: 5 mg Documented by: Dextrose (Dextrose 50%-Water 25 Gm/50 Ml Disp.Syrin) 0 gm IV X1 PRN; Protocol PRN Reason: Hypoglycemia Ergocalciferol (Ergocalciferol 50,000 Unit Capsule) 50,000 unit PO Q7D [facility] Last Admin: 10/30/20 20:27 Dose: 50,000 unit Documented by: Glucagon (Glucagon 1 Mg/Ml Syringe) 1 mg IM .X1 PRN PRN Reason: Hypoglycemia Hydromorphone HCl (Hydromorphone 0.5 Mg/0.5 Ml Syringe) 0.5 mg IV Q4H PRN PRN PRN Reason: Pain Score 6-10 Sodium Chloride () 250 mls @ 15 mls/hr IV .[id number] PRN PRN Reason: Saline Flush Last Infusion: 10/30/20 11:13 Dose: Infused Documented by: Sodium Chloride () 250 mls @ 15 mls/hr IV .[id number] PRN PRN Reason: Additional IVPB Infusion Piperacillin Sod/Tazobactam (Sod 3.375 gm/ Sodium Chloride) 50 mls @ 12.5 mls/hr IV Q8 [facility] Last Admin: 10/31/20 06:51 Dose: 12.5 mls/hr Documented by: Vancomycin IV Pharmacy to Dose (1 each/ Sodium Chloride) 500 mls @ 250 mls/hr IV PRN PRN; Protocol PRN Reason: VANCO DOSING PROTOCOL Vancomycin HCl 1,500 mg/ (Sodium Chloride) 530 mls @ 250 mls/hr IV Q8H [facility] Last Infusion: 10/31/20 06:55 Dose: Infused Documented by: Insulin Human Lispro (Insulin Lispro 100 Unit/Ml Insuln.Pen) 0 unit SC ACHS [facility]; Protocol Last Admin: 10/31/20 06:29 Dose: Not Given Documented by: Insulin Human NPH (Insulin Nph Human 100 Units/Ml Pen) 5 units SC QHS [facility] Last Admin: 10/30/20 22:01 Dose: Not Given Documented by: Linagliptin (Linagliptin 5 Mg Tablet) 5 mg PO DAILY [facility] Last Admin: 10/30/20 09:08 Dose: 5 mg Documented by: Lisinopril (Lisinopril 20 Mg Tablet) 20 mg PO DAILY [facility] Last Admin: 10/30/20 09:08 Dose: 20 mg Documented by: Nitroglycerin (Nitroglycerin (Inpatient Use) 0.4 Mg Tab.Subl) 0.4 mg SL Q5M PRN PRN Reason: CARDIAC/CHEST PAIN Oxycodone HCl (Oxycodone 5 Mg Tablet) 5 mg PO Q4H PRN PRN PRN Reason: Pain Score 4-5 Last Admin: 10/30/20 06:16 Dose: 5 mg Documented by: Prochlorperazine Edisylate (Prochlorperazine 10 Mg/2 Ml Vial) 5 mg IV Q4H PRN PRN PRN Reason: Breakthrough Nausea/Vomiting Senna/Docusate Sodium (Senna/Docusate Sodium 1 Tablet) 2 tablet PO BID PRN PRN PRN Reason: Constipation Sodium Chloride (0.9% Saline Lock 10 Ml Syringe) 10 - 40 ml IV UD PRN PRN Reason: SALINE FLUSH Last Admin: 10/31/20 06:28 Dose: 20 ml Documented by: Medical Necessity - Tobacco Use Smoking Status: Current every day smoker Tobacco Use: Cigarettes Assessment/Plan All Active Problems (Last Reviewed 09/04/20 @ 09:28 by Renetta Bradley) Right foot pain (Acute) Osteomyelitis of left foot (Acute) Osteomyelitis of toe of right foot (Resolved) Osteomyelitis right tarsometatasal joints vs Charcot neuroarthropathy Diabetes with peripheral neuropathy Tobacco use Vitamin D deficiency Other comorbidities Reviewed diagnostic data. MRI of the right foot has been obtained, and reviewed, I did review with the radiologist, who relates findings a concerning for osteomyelitis but could also be Charcot neuroarthropathy. Right foot xrays with significant destructive changes to the tarsometatarsal joints, there is no gas to the tissues, there is no abscess on MRI. Bone biopsy has been obtained and results are pending at this time - microbiology and pathology. Patient is on IV antibiotics w/ ID service/Dr. Soto on consult. No weightbearing right foot. Keep foot elevated. Vitamin D was noted to be lowat 10.6 - pt on Vitamin D supplementation. Recent DVT right LE: Patient on Eliquis. Again recommended smoking/tobacco cessation with patient and the importance of this to help optimize foot healing. Patient is at very high risk for limb loss given severity of the bone changes to the foot. Podiatry will continue to follow.
[2020-10-31 08:46] VITALS: BP 123/65; PULSE 70; RESP 18; TEMP 36.7; O2SAT 97
[2020-10-31] MEDS: LINAGLIPTIN 5 MG TABLET PO (09:34)
[2020-10-31] MEDS: APIXABAN 5 MG TABLET PO (09:35)
[2020-10-31] MEDS: Lisinopril 20 MG Tablet PO (09:35)
[2020-10-31 09:38] LABS: Anion Gap 6 (5-15); BUN 7 mg/dL (7-18); BUN/Creat Ratio 10.2 RATIO (10-20); Calcium,Total 8.4 mg/dL (8.5-10.1); Chloride 106 mmol/L (98-107); Creatinine, Serum 0.68 mg/dL (0.70-1.30); EST Glomerular Filtration Rate 130 mL/min (>60); Est Glom Filt Rate - Afr Amer 157 mL/min (>60); Estimated Creatinine Clearance 138.42 ml/min; Glucose 105 mg/dL (74-106); Potassium 3.7 mmol/L (3.5-5.1); Sodium Level 140 mmol/L (136-145)
--- NOTE | 2020-10-31 10:18 | DCINST_ITS ---
- Discharge Diagnoses Current Active Problems: Current Active and Chronic Problems (Last Reviewed 09/04/20 @ 09:28 by Renetta Bradley) Non-pressure chronic ulcer of other part of right foot with fat layer exposed (Chronic) Obese (Chronic) History of amputation of foot (Chronic) Right foot pain (Acute) Osteomyelitis of left foot (Acute) KRYSTAL (obstructive sleep apnea) (Chronic) Dry skin dermatitis (Chronic) Thrombocytopenia (Chronic) Osteoarthritis (Chronic) Bilateral lower extremity edema (Chronic) Type 2 diabetes mellitus (Chronic) History of esophageal disorder (Chronic) Hypertension (Chronic) You will use the following diet at home:: Calorie/Carbohydrate Controlled (specify 1200, 1400, etc) - 1800 ADA diet Your food should be the consistency of: Regular Your liquids should be the consistency of: Regular/Thin Discharge Activity: May Not Drive - Follow with PCP. Patient had right foot pain Weight Bearing Status: No weight bearing - In right foot Keep extremity elevated above heart level: Right Leg Call your doctor if you observe: Fever of 101 or Higher, Coldness, Increased Pain, Numbness or Tingling, Change in Color, Inability to urinate, Inability to have a bowel movement, Shortness of breath, Dizziness, Fainting spells, Swelling in the ankles, Chest pain, Prolonged hiccoughing, Increased palpitations (irregular heartbeat), Calf discomfort, Uncontrolled pain Allergies/Adverse Reactions: Allergies ketorolac [From Toradol] Adverse Reaction (Verified 10/28/20 19:29) Upset Stomach NSAIDS (Non-Steroidal Anti-Inflamma Adverse Reaction (Verified 10/28/20 19:29) Upset Stomach Medications to take at Discharge Metformin HCl 1,000 mg PO BID 01/23/20 Acetaminophen [Tylenol Tablet] 650 mg PO Q6H PRN PRN tab 07/23/20 Hydrocodone Bitart/Apap 5-325 [Jupiter 5/325] 1 tablet PO Q6H PRN PRN 3 Days #12 tab 10/28/20 Lisinopril 20 mg PO DAILY 10/29/20 Sitagliptin Phosphate [Januvia] 100 mg PO DAILY 10/29/20 Amox/Clavulanate Tablet [Augmentin Tablet] 875 mg PO Q12H #14 tablet 10/31/20 Apixaban [Eliquis] 5 mg PO BID #60 tab.ds.pk 04/22/21 Doxycycline 100 mg PO BID #14 capsule 10/31/20 Ergocalciferol [Vitamin D] 50,000 unit PO Q7D #4 capsule 10/31/20 The following prescriptions were given: Amox/Clavulanate Tablet [Augmentin Tablet] 875 mg PO Q12H #14 tablet Transmission Status: Pending to [facility]/pharmacy #[id number] Doxycycline 100 mg PO BID #14 capsule Transmission Status: Pending to [facility]/pharmacy #[id number] Apixaban [Eliquis] 5 mg PO BID #60 tab.ds.pk Transmission Status: Pending to [facility]/pharmacy #[id number] Ergocalciferol [Vitamin D] 50,000 unit PO Q7D #4 capsule Transmission Status: Pending to [facility]/pharmacy #[id number] Primary Care Physician: Gavin Raymundo MD [Primary Care Provider] - Please follow up with your Primary Care Physician in: IN 2 WEEKS Test Results: Test results from this visit will be discussed in further detail at your follow- up appointment, if applicable. Please Follow Up With: Jesus Ramos DPM When: IN 1-2 WEEKS Please Follow Up With: Stoney Soto MD When: As needed in 3 to 4 weeks
--- NOTE | 2020-10-31 10:20 | PCM.DC.SUM ---
Discharge Date and Diagnosis - Problem List Patient Problems: Active and Suspected Problems (Last Reviewed 09/04/20 @ 09:28 by Renetta Bradley) Charcot arthropathy of midfoot (Suspected) Right foot pain (Acute) Osteomyelitis of left foot (Acute) Date of Admission: 10/29/20 Date of Discharge: 10/31/20 - Primary Discharge Diagnosis Acute Problems: Active Problems (Last Reviewed 09/04/20 @ 09:28 by Renetta Bradley) Right foot pain (Acute) Osteomyelitis of left foot (Acute) Suspected Problems: Suspected Problems (Last Reviewed 09/04/20 @ 09:28 by Renetta Bradley) Charcot arthropathy of midfoot (Suspected) - Secondary Discharge Diagnosis Chronic Problems: Chronic Problems (Last Reviewed 09/04/20 @ 09:28 by Renetta Bradley) Non-pressure chronic ulcer of other part of right foot with fat layer exposed (Chronic) Obese (Chronic) History of amputation of foot (Chronic) KRYSTAL (obstructive sleep apnea) (Chronic) Dry skin dermatitis (Chronic) Thrombocytopenia (Chronic) Osteoarthritis (Chronic) Bilateral lower extremity edema (Chronic) Type 2 diabetes mellitus (Chronic) History of esophageal disorder (Chronic) Hypertension (Chronic) Hospital Course and Treatment Operations: - - Left toe amputation Summary of Care Provided: ] There is a 50-year-old patient who was admitted from wound center for right foot pain for 3 weeks. 1.. Persistent right foot pain with concern of infection/osteomyelitis or Charcot joint: Radiologist Dr. Velarde called me to inform that patient has rapidly progressive bone destruction of right midfoot associated with soft tissue swelling, joint effusion and bone marrow edema suggestive of acute mastoiditis. Discussed with personal protection specialist Dr. Ramos. Patient is going for bone biopsy. Will start antibiotic after bone biopsy. Previous bone culture in July 2020 showed MRSA, Streptococcus agalactiae, Fusobacterium, anaerobic cocci, pseudomonas, Clostridium and bacteroids species. Patient had arterial Doppler study in July, and reported no evidence of significant arterial occlusive disease lower extremities bilaterally. Resting KRIS and distal brachial indices normal bilaterally. Patient had bone biopsy done on 10/29. Started on IV vancomycin and Zosyn. Seen by ID. Initial Gram stain does not show organism. Cussed with ID and recommended 7 days course of doxy 100 mg twice daily and Augmentin 875 mg twice daily. Prescriptions given. Patient did not had Covid vaccine. She had low vitamin D 25 hydroxy therefore started on vitamin D replacement. 2. Right lower extremity DVT in July 2020. Patient only had 1 month of probably Eliquis. Venous Doppler shows partially compressible right popliteal and tibioperoneal trunk consistent with chronic deep vein thrombosis; No apparent change from the previous examination of July 2020. Prescription a given for 2-month supply of Eliquis 5 mg twice daily. Recommended total 3 months of anticoagulant treatment, starting from this present admission. 3. Type 2 diabetes mellitus-hold oral regimen. A1c 10.3% on July 17. Repeat A1c. Continue Accu-Cheks and before meals and at bedtime with a scheduled dose insulin 4. Hypertension-blood pressure is well controlled. Continue home medications 4. Morbid obesity-encouraged diet lifestyle applications. 5. Tobacco dependence-encourage cessation. Discharge medication reconciliation done. Discharge follow-up instructions completed. Discharge process discussed with the patient and all questions were answered to patient's satisfaction. Total time spent, exact 35 minutes on discharge meds reconciliation, examination, coordination of care with nurses and ancillary staff, review of imaging and blood test and discussion with the patient on follow-up instructions Clinical Impression(s) from Imaging Studies Lower Extremity MRI 10/29/20 09:02 IMPRESSION: Advanced progressive midfoot bone marrow replacement and bone destruction with significant soft tissue swelling, joint effusions and bone marrow edema (findings highly suspicious for acute osteomyelitis versus rapidly progressing Charcot arthropathy; correlate WBC, blood cultures, ESR and CRP) Chronic Lisfranc ligament rupture Moderate peroneus longus tendinosis and mild extensor digitorum tenosynovitis Diffuse soft tissue swelling/cellulitis with wound/ulceration Electronically Signed: Mc Pruitt DO at 11:12 EDT Tel , Service support , ADDENDUM: 10/29/20 1126 IMPRESSION: Advanced progressive midfoot bone marrow replacement and bone destruction with significant soft tissue swelling, joint effusions and bone marrow edema (findings highly suspicious for acute osteomyelitis versus rapidly progressing Charcot arthropathy; correlate WBC, blood cultures, ESR and CRP) Chronic Lisfranc ligament rupture Moderate peroneus longus tendinosis and mild extensor digitorum tenosynovitis Diffuse soft tissue swelling/cellulitis with wound/ulceration N.B. : The above information has been verbally conveyed by Mc Pruitt DO to Dr. Servando MD, on 10/29/2020 11:19:47 (ET). Electronically Signed: Mc Pruitt DO at 11:12 EDT Tel , Service support , Venous Doppler Study 10/29/20 12:06 Interpretation Summary Partially compressible right popliteal and tibioperoneal trunk with hyperechoic thrombus consistent with chronic deep venous thrombosis. Patent and compressible right great saphenous vein No apparent change from the previous examination of July 2020 Foot X-Ray 10/29/20 14:00 IMPRESSION: Fluoroscopic guidance provided for bone biopsy procedure. For details please see operative report. Electronically Signed: Theresa De Los Santos MD at 1:00 EDT , Service support , Patient Problems: Active and Suspected Problems (Last Reviewed 09/04/20 @ 09:28 by Renetta Bradley) Charcot arthropathy of midfoot (Suspected) Right foot pain (Acute) Osteomyelitis of left foot (Acute) Objective: Patient denies right foot pain. Advised no weightbearing. General: Alert, Oriented x3, Cooperative, morbid obesity 45.9 kg/m?, present on admission HEENT: Atraumatic, PERRLA, EOMI, Normocephalic Oral: No Gingival or Mucosal Lesions/ Ulcerations Neck: Supple, No JVD, Negative Carotid Bruits Lungs: Air entry diminished in bilateral lung bases. No crepitation/rhonchi Cardiovascular: Regular rate, Regular Rhythm, Normal S1, Normal S2, No murmurs Abdomen: Bowel Sounds Present, Soft, Non Tender, Non-Distended : No renal angle tenderness. No suprapubic tenderness. Extremities: Right second, fourth and fifth toe amputation. Jens wrap bandage on. No edema. Skin: No rashes, No breakdown Musculoskeletal: Tenderness present over right midfoot joints. Neurological: Cranial nerves II-XII grossly intact, Deep Tendon Reflexes 2+/4 and Symmetrical, Neuro grossly intact Psych/Mental Status: Normal Affect, Appropriate. - Physical Exam Vitals/I&O's: Vital Signs Temp Pulse Resp BP Pulse Ox 98.1 F 70 18 123/65 H 97 10/31/20 08:46 10/31/20 08:46 10/31/20 08:46 10/31/20 08:46 10/31/20 08:46 Oxygen Delivery Method Room Air Weight: 329 lb 5.93 oz Body Mass Index (BMI) 45.1 Finger Stick Blood Glucose 138 Intake and Output for Last 24 Hours 10/29/20 10/30/20 10/31/20 23:59 23:59 23:59 Intake Total 1546.5 / 1546.5 3183.5 / 3483.5 880.00 / 880.00 Output Total 400 / 400 2400 / 3125 2024 / 2024 Balance 1146.5 / 1146.5 783.5 / 358.5 -1145.00 / -1145.00 Microbiology Past 72 Hours 10/29/20 Unknown Bone - Right Foot Gram Stain - Final 10/29/20 Unknown Bone - Right Foot Gram Stain - Final Laboratory Results 10/30/20 11:49: POC Glucose 131 H 10/30/20 16:21: Vancomycin Trough 16.6 H 10/30/20 17:44: POC Glucose 146 H 10/30/20 22:00: POC Glucose 110 10/31/20 06:26: POC Glucose 106 10/31/20 08:58: Sodium 140, Potassium 3.7, Chloride 106, Carbon Dioxide 28.0, Anion Gap 6, BUN 7, Creatinine 0.68 L, Estim Creat Clear Calc 138.42, Est GFR (MDRD) Af Amer 157, Est GFR (MDRD) Non-Af 130, BUN/Creatinine Ratio 10.2, Glucose 105, Calcium 8.4 L Current Medications Acetaminophen (Acetaminophen 325 Mg Tablet) 650 mg PO Q6H PRN PRN PRN Reason: Pain Score 1-10/Temp > 100.7 F Al Hydroxide/Mg Hydroxide (Mag Hydrox/Al Hydrox/Simeth 30 Ml Udc) 30 ml PO Q6H PRN PRN PRN Reason: Gastric Burning Albuterol Sulfate (Albuterol 2.5 Mg/3 Ml Vial.Neb.) 2.5 mg INHALATION Q2H PRN PRN PRN Reason: SOB/Wheezing Apixaban (Apixaban 5 Mg Tablet) 5 mg PO BID [facility] Last Admin: 10/31/20 09:35 Dose: 5 mg Documented by: Dextrose (Dextrose 50%-Water 25 Gm/50 Ml Disp.Syrin) 0 gm IV X1 PRN; Protocol PRN Reason: Hypoglycemia Ergocalciferol (Ergocalciferol 50,000 Unit Capsule) 50,000 unit PO Q7D [facility] Last Admin: 10/30/20 20:27 Dose: 50,000 unit Documented by: Glucagon (Glucagon 1 Mg/Ml Syringe) 1 mg IM .X1 PRN PRN Reason: Hypoglycemia Hydromorphone HCl (Hydromorphone 0.5 Mg/0.5 Ml Syringe) 0.5 mg IV Q4H PRN PRN PRN Reason: Pain Score 6-10 Sodium Chloride () 250 mls @ 15 mls/hr IV .[id number] PRN PRN Reason: Saline Flush Last Infusion: 10/30/20 11:13 Dose: Infused Documented by: Sodium Chloride () 250 mls @ 15 mls/hr IV .[id number] PRN PRN Reason: Additional IVPB Infusion Piperacillin Sod/Tazobactam (Sod 3.375 gm/ Sodium Chloride) 50 mls @ 12.5 mls/hr IV Q8 [facility] Last Admin: 10/31/20 06:51 Dose: 12.5 mls/hr Documented by: Vancomycin IV Pharmacy to Dose (1 each/ Sodium Chloride) 500 mls @ 250 mls/hr IV PRN PRN; Protocol PRN Reason: VANCO DOSING PROTOCOL Vancomycin HCl 1,500 mg/ (Sodium Chloride) 530 mls @ 250 mls/hr IV Q8H [facility] Last Infusion: 10/31/20 06:55 Dose: Infused Documented by: Insulin Human Lispro (Insulin Lispro 100 Unit/Ml Insuln.Pen) 0 unit SC ACHS [facility]; Protocol Last Admin: 10/31/20 06:29 Dose: Not Given Documented by: Insulin Human NPH (Insulin Nph Human 100 Units/Ml Pen) 5 units SC QHS [facility] Last Admin: 10/30/20 22:01 Dose: Not Given Documented by: Linagliptin (Linagliptin 5 Mg Tablet) 5 mg PO DAILY [facility] Last Admin: 10/31/20 09:34 Dose: 5 mg Documented by: Lisinopril (Lisinopril 20 Mg Tablet) 20 mg PO DAILY [facility] Last Admin: 10/31/20 09:35 Dose: 20 mg Documented by: Nitroglycerin (Nitroglycerin (Inpatient Use) 0.4 Mg Tab.Subl) 0.4 mg SL Q5M PRN PRN Reason: CARDIAC/CHEST PAIN Oxycodone HCl (Oxycodone 5 Mg Tablet) 5 mg PO Q4H PRN PRN PRN Reason: Pain Score 4-5 Last Admin: 10/30/20 06:16 Dose: 5 mg Documented by: Prochlorperazine Edisylate (Prochlorperazine 10 Mg/2 Ml Vial) 5 mg IV Q4H PRN PRN PRN Reason: Breakthrough Nausea/Vomiting Senna/Docusate Sodium (Senna/Docusate Sodium 1 Tablet) 2 tablet PO BID PRN PRN PRN Reason: Constipation Sodium Chloride (0.9% Saline Lock 10 Ml Syringe) 10 - 40 ml IV UD PRN PRN Reason: SALINE FLUSH Last Admin: 10/31/20 06:28 Dose: 20 ml Documented by: Discharge Activity: May Not Drive - Follow with PCP. Patient had right foot pain Weight Bearing Status: No weight bearing - In right foot Keep extremity elevated above heart level: Right Leg Call your doctor if you observe: Fever of 101 or Higher, Coldness, Increased Pain, Numbness or Tingling, Change in Color, Inability to urinate, Inability to have a bowel movement, Shortness of breath, Dizziness, Fainting spells, Swelling in the ankles, Chest pain, Prolonged hiccoughing, Increased palpitations (irregular heartbeat), Calf discomfort, Uncontrolled pain Home Medications: Medications to take at Discharge Metformin HCl 1,000 mg PO BID 01/23/20 Acetaminophen [Tylenol Tablet] 650 mg PO Q6H PRN PRN tab 07/23/20 Hydrocodone Bitart/Apap 5-325 [Sloan 5/325] 1 tablet PO Q6H PRN PRN 3 Days #12 tab 10/28/20 Lisinopril 20 mg PO DAILY 10/29/20 Sitagliptin Phosphate [Januvia] 100 mg PO DAILY 10/29/20 Amox/Clavulanate Tablet [Augmentin Tablet] 875 mg PO Q12H #14 tablet 10/31/20 Apixaban [Eliquis] 5 mg PO BID #60 tab.ds.pk 10/31/20 Doxycycline 100 mg PO BID #14 capsule 10/31/20 Ergocalciferol [Vitamin D] 50,000 unit PO Q7D #4 capsule 10/31/20 Following Prescriptions Were Given to Patient: Amox/Clavulanate Tablet [Augmentin Tablet] 875 mg PO Q12H #14 tablet Transmission Status: Received by [facility]/pharmacy #[id number] Doxycycline 100 mg PO BID #14 capsule Transmission Status: Received by [facility]/pharmacy #[id number] Apixaban [Eliquis] 5 mg PO BID #60 tab.ds.pk Transmission Status: Received by [facility]/pharmacy #[id number] Ergocalciferol [Vitamin D] 50,000 unit PO Q7D #4 capsule Transmission Status: Received by [facility]/pharmacy #[id number] Primary Care Physician: Gavin Raymundo MD [Primary Care Provider] - Please follow up with your Primary Care Physician in: IN 2 WEEKS Please Follow Up With: Jesus Ramos DPM When: IN 1-2 WEEKS Please Follow Up With: Stoney Soto MD When: As needed in 3 to 4 weeks Medical Necessity - Tobacco Use Smoking Status: Current every day smoker Tobacco Use: Cigarettes Meaningful Use Info Meaningful Use Diagnoses (Choose all that apply): None applicable Inpatient E&M: [id number] [facility]
[2020-10-31] MEDS: Insulin Lispro 100 UNIT/ML INSULN.PEN SC (10:40)
[2020-10-31 10:46] LABS: Bedside Glucose 187 mg/dL (70-110)
--- NOTE | 2020-10-31 10:46 | CASEMGMT ---
RN CM in to pt room. Pt agreeable to N to resume care. Pt asking about w/c. States he was never called and declined the w/c. He states last he heard that it was in process and info was needed from MD. Pt has rx for Eliquis. This CM called [facility] and pt copay is $0. TC to N, spoke with Tyson. Aware pt is dc'ing today and regarding w/c. Info faxed to N. Pt denies further needs.
--- NOTE | 2020-10-31 10:53 | PCM.PN.ID ---
Patient Problems: Active and Suspected Problems (Last Reviewed 09/04/20 @ 09:28 by Renetta Bradley) Charcot arthropathy of midfoot (Suspected) Right foot pain (Acute) Osteomyelitis of left foot (Acute) Subjective: Feeling better, no n/v/d, no fever - Physical Exam Vitals/I&O's: Vital Signs Temp Pulse Resp BP Pulse Ox 98.1 F 70 18 123/65 H 97 10/31/20 08:46 10/31/20 08:46 10/31/20 08:46 10/31/20 08:46 10/31/20 08:46 Oxygen Delivery Method Room Air Weight: 149.4 kg Body Mass Index (BMI) 45.1 Finger Stick Blood Glucose 138 Intake and Output for Last 24 Hours 10/29/20 10/30/20 10/31/20 23:59 23:59 23:59 Intake Total 1546.5 / 1546.5 3183.5 / 3483.5 880.00 / 880.00 Output Total 400 / 400 2400 / 3125 2024 / 2024 Balance 1146.5 / 1146.5 783.5 / 358.5 -1145.00 / -1145.00 General: Alert, Cooperative, No apparent distress Lungs: Clear to auscultation, Normal air movement Cardiovascular: Regular rate, Regular Rhythm Abdomen: Soft, Non Tender, Non-Distended Skin: Ulcer/ Wound - foot wrapped Microbiology Past 72 Hours 10/29/20 Unknown Bone - Right Foot Gram Stain - Final 10/29/20 Unknown Bone - Right Foot Gram Stain - Final Laboratory Results 10/30/20 11:49: POC Glucose 131 H 10/30/20 16:21: Vancomycin Trough 16.6 H 10/30/20 17:44: POC Glucose 146 H 10/30/20 22:00: POC Glucose 110 10/31/20 06:26: POC Glucose 106 10/31/20 08:58: Sodium 140, Potassium 3.7, Chloride 106, Carbon Dioxide 28.0, Anion Gap 6, BUN 7, Creatinine 0.68 L, Estim Creat Clear Calc 138.42, Est GFR (MDRD) Af Amer 157, Est GFR (MDRD) Non-Af 130, BUN/Creatinine Ratio 10.2, Glucose 105, Calcium 8.4 L 10/31/20 10:38: POC Glucose 187 H Current Medications Acetaminophen (Acetaminophen 325 Mg Tablet) 650 mg PO Q6H PRN PRN PRN Reason: Pain Score 1-10/Temp > 100.7 F Al Hydroxide/Mg Hydroxide (Mag Hydrox/Al Hydrox/Simeth 30 Ml Udc) 30 ml PO Q6H PRN PRN PRN Reason: Gastric Burning Albuterol Sulfate (Albuterol 2.5 Mg/3 Ml Vial.Neb.) 2.5 mg INHALATION Q2H PRN PRN PRN Reason: SOB/Wheezing Apixaban (Apixaban 5 Mg Tablet) 5 mg PO BID [facility] Last Admin: 10/31/20 09:35 Dose: 5 mg Documented by: Dextrose (Dextrose 50%-Water 25 Gm/50 Ml Disp.Syrin) 0 gm IV X1 PRN; Protocol PRN Reason: Hypoglycemia Ergocalciferol (Ergocalciferol 50,000 Unit Capsule) 50,000 unit PO Q7D [facility] Last Admin: 10/30/20 20:27 Dose: 50,000 unit Documented by: Glucagon (Glucagon 1 Mg/Ml Syringe) 1 mg IM .X1 PRN PRN Reason: Hypoglycemia Hydromorphone HCl (Hydromorphone 0.5 Mg/0.5 Ml Syringe) 0.5 mg IV Q4H PRN PRN PRN Reason: Pain Score 6-10 Sodium Chloride () 250 mls @ 15 mls/hr IV .[id number] PRN PRN Reason: Saline Flush Last Infusion: 10/30/20 11:13 Dose: Infused Documented by: Sodium Chloride () 250 mls @ 15 mls/hr IV .[id number] PRN PRN Reason: Additional IVPB Infusion Piperacillin Sod/Tazobactam (Sod 3.375 gm/ Sodium Chloride) 50 mls @ 12.5 mls/hr IV Q8 [facility] Last Admin: 10/31/20 06:51 Dose: 12.5 mls/hr Documented by: Vancomycin IV Pharmacy to Dose (1 each/ Sodium Chloride) 500 mls @ 250 mls/hr IV PRN PRN; Protocol PRN Reason: VANCO DOSING PROTOCOL Vancomycin HCl 1,500 mg/ (Sodium Chloride) 530 mls @ 250 mls/hr IV Q8H [facility] Last Admin: 10/31/20 10:29 Dose: 250 mls/hr Documented by: Insulin Human Lispro (Insulin Lispro 100 Unit/Ml Insuln.Pen) 0 unit SC ACHS [facility]; Protocol Last Admin: 10/31/20 10:40 Dose: 2 units Documented by: Insulin Human NPH (Insulin Nph Human 100 Units/Ml Pen) 5 units SC QHS [facility] Last Admin: 10/30/20 22:01 Dose: Not Given Documented by: Linagliptin (Linagliptin 5 Mg Tablet) 5 mg PO DAILY [facility] Last Admin: 10/31/20 09:34 Dose: 5 mg Documented by: Lisinopril (Lisinopril 20 Mg Tablet) 20 mg PO DAILY [facility] Last Admin: 10/31/20 09:35 Dose: 20 mg Documented by: Nitroglycerin (Nitroglycerin (Inpatient Use) 0.4 Mg Tab.Subl) 0.4 mg SL Q5M PRN PRN Reason: CARDIAC/CHEST PAIN Oxycodone HCl (Oxycodone 5 Mg Tablet) 5 mg PO Q4H PRN PRN PRN Reason: Pain Score 4-5 Last Admin: 10/30/20 06:16 Dose: 5 mg Documented by: Prochlorperazine Edisylate (Prochlorperazine 10 Mg/2 Ml Vial) 5 mg IV Q4H PRN PRN PRN Reason: Breakthrough Nausea/Vomiting Senna/Docusate Sodium (Senna/Docusate Sodium 1 Tablet) 2 tablet PO BID PRN PRN PRN Reason: Constipation Sodium Chloride (0.9% Saline Lock 10 Ml Syringe) 10 - 40 ml IV UD PRN PRN Reason: SALINE FLUSH Last Admin: 10/31/20 06:28 Dose: 20 ml Documented by: Medical Necessity - Tobacco Use Smoking Status: Current every day smoker Tobacco Use: Cigarettes Route of nutrition/ use of supplements: [] Nutritional Intake: [] IV Site: [] [place] Catheter: [] - Assessment/Plan Antibiotics: [] Assessment/Plan: [] Active and Suspected Problems (Last Reviewed 09/04/20 @ 09:28 by Renetta Bradley) Charcot arthropathy of midfoot (Suspected) Right foot pain (Acute) Osteomyelitis of left foot (Acute) On empiric vanc/zosyn, bone bx and cx from 10/29 neg so far. Recommended covid vaccine after discharge. Ok for home with one week of po doxy and augmentin, will need course extended/adjusted based on further cxs. I do not see any pending path orders. Will follow
[2020-10-31 12:50] VITALS: BP 132/82; PULSE 89; RESP 18; TEMP 36.8; O2SAT 96
== END 2020-10-31 13:08 | disposition home or self-care (01) | DRG 344 ==
LOC: PCU 10-30 11:11 → MS3 10-31 07:29
PROVIDERS: Admitting Provider Podiatrist; PCP Internal Medicine; Visit Provider Internal Medicine
PROC: 0QBN0ZX Excision of Right Metatarsal, Open Approach, Diagnostic (ICD-10-PCS; principal; 2020-10-29 14:15)
DX: M86.272 Subacute osteomyelitis, left ankle and foot (principal); E11.610 Type 2 diabetes mellitus with diabetic neuropathic arthropathy; L97.512 Non-pressure chronic ulcer of other part of right foot with fat layer exposed; E11.621 Type 2 diabetes mellitus with foot ulcer; L97.522 Non-pressure chronic ulcer of other part of left foot with fat layer exposed; G47.33 Obstructive sleep apnea (adult) (pediatric); D69.6 Thrombocytopenia, unspecified; I10 Essential (primary) hypertension; E66.01 Morbid (severe) obesity due to excess calories; M19.90 Unspecified osteoarthritis, unspecified site; L85.3 Xerosis cutis; Z89.439 Acquired absence of unspecified foot; Z86.718 Personal history of other venous thrombosis and embolism; Z68.42 Body mass index [BMI] 45.0-49.9, adult; F17.210 Nicotine dependence, cigarettes, uncomplicated; E11.42 Type 2 diabetes mellitus with diabetic polyneuropathy; E11.69 Type 2 diabetes mellitus with other specified complication; M65.9 Synovitis and tenosynovitis, unspecified; E55.9 Vitamin D deficiency, unspecified; Z82.49 Family history of ischemic heart disease and other diseases of the circulatory system; Z91.19 Patient's noncompliance with other medical treatment and regimen; Z83.3 Family history of diabetes mellitus; Z79.01 Long term (current) use of anticoagulants
CPT/HCPCS: 36415; 73620; 73630; 73718; 76000; 80048; 80053; 80202; 82306; 82962; 83036; 83735; 84100; 84134; 85025; 85610; 85652; 86140; 87015; 87070; 87075; 87077; 87102; 87116; 87176; 87186; 87205; 87206; 88307; 88311; 93971; 96374; 96375; 97162; 97166; 97803; 99213; 99251; 99285; 99406; J7040; J7050; J7120; A4216; G0463; J2405

== ENCOUNTER 2020-12-31 20:01 | Emergency (ER) | payer MEDICAID, SELFPAY ==
[2020-12-03 15:50] VITALS: BMI 45.1
[2020-12-31 20:02] VITALS: BP 150/82; PULSE 107; RESP 18; TEMP 36; O2SAT 97; BMI 47.5
[2020-12-31 20:04] VITALS: BP 150/82; PULSE 106; RESP 18; O2SAT 97
--- NOTE | 2020-12-31 20:58 | RAD_ITS ---
STUDY: X-RAY - RIGHT HAND REASON FOR EXAM: Male, 50 years old. pain/injury TECHNIQUE: 4 view(s) of the hand. COMPARISON: None. FINDINGS: There are healed fracture deformities of the proximal shaft of the third metacarpal bone and fourth middle carpal base. Mild to moderate soft tissue swelling is present over the dorsum of the hand. Small intraosseous cysts are present in the pisiform. Normal radiocarpal articulation. Normal distal radioulnar joint. Normal visualized carpal bones. Normal carpal articulations Normal carpometacarpal articulation of the thumb. Normal second through fifth carpometacarpal joints. Normal metacarpophalangeal joint of the thumb. Normal interphalangeal joint of the thumb. Normal proximal and distal phalanges of the thumb. Normal metacarpophalangeal joints of the second through fifth fingers. Normal proximal and distal interphalangeal joints of the second through fifth fingers. Normal phalanges of the second through fifth fingers. RAD/Hand Min 3 Views IMPRESSION: 1. There are healed fracture deformities of the proximal shaft of the third metacarpal bone and fourth middle carpal base. Mild to moderate soft tissue swelling is present over the dorsum of the hand. Electronically Signed: Horacio Cota MD at 21:20 EDT , Service support ,
--- NOTE | 2020-12-31 21:00 | EDS_ITS ---
HPI History of Present Illness Chief Complaint: Upper Extremity Injury Informant: patient Occured/Mechanism Mechanism/Context: Yes other see comment below Comment: Helping to carry riding lawnmower, injured his hand in the process Onset/Context/Timing Onset: Days (2) Context: Sudden Onset Timing: Continuous Quality of Pain: Aching Location: Right hand Current Severity: Moderate Maximum Severity: Moderate Worsened by: Certain movements/palpation Relieved by: Remaining still Associated Symptoms Associated Symptoms: Negative for Parasthesia, Weakness and Loss of Funtion Narrative Narrative: [id number] male states he injured his right hand 2 days ago, he was helping someone to carry/lift a riding lawnmower, the other person's and fell and he tried to catch it with his right hand, injuring it acutely. No wounds to the skin. [facility] Medical History Amputation of toe of left foot Charcot arthropathy of midfoot DVT (deep venous thrombosis) History of esophageal disorder Hypertension KRYSTAL (obstructive sleep apnea) Osteoarthritis Type 2 diabetes mellitus Home Medications metformin 1,000 mg PO BID 01/23/20 [History Last Taken 10/29/20] acetaminophen 650 mg PO Q6H PRN PRN tab 07/23/20 [Rx Last Taken Unknown] lisinopril 20 mg PO DAILY 10/29/20 [History Last Taken 10/29/20] sitagliptin 100 mg PO DAILY 10/29/20 [History Last Taken 10/29/20] amoxicillin-pot clavulanate 875 mg PO Q12H #14 tablet 10/31/20 [Rx Last Taken Unknown] apixaban 5 mg PO BID #60 tab.ds.pk 10/31/20 [Rx Last Taken Unknown] doxycycline monohydrate 100 mg PO BID #14 capsule 10/31/20 [Rx Last Taken Unknown] ergocalciferol (vitamin D2) 50,000 unit PO Q7D #4 capsule 10/31/20 [Rx Last Taken Unknown] Handicap Placard #1 ea 12/05/20 [Rx Last Taken Unknown] Allergy/AdvReac Type Severity Reaction Status Date / Time ketorolac [From Toradol] AdvReac Upset Verified 12/31/20 20:02 Stomach NSAIDS (Non-Steroidal AdvReac Upset Verified 12/31/20 20:02 Anti-Inflamma Stomach Family History Mother Hypertension Diabetes Heart disease Sister Hypertension Diabetes Crohns disease Brother Diabetes Social History Smoking Status: Current every day smoker alcohol intake: never substance use type: does not use what type of physical activity do you participate in: walking frequency: daily ROS ROS ED Constitutional Constitutional ED: Denies chills or fever(s) Musculoskeletal Musculoskeletal: Reports extremity pain; Denies neck pain Integumentary Denies Abrasions, rash or wounds Neurologic Neurologic: Denies paresthesias or weakness EXAM Physical Exam Const Vital Signs: 12/31/20 20:02 12/31/20 20:04 Temperature 96.8 F L Temperature Source Temporal Pulse Rate 107 H 106 H Respiratory Rate 18 18 Blood Pressure 150/82 H 150/82 H Blood Pressure Mean 104 104 Pulse Ox 97 97 Oxygen Delivery Method Room Air Room Air Positive well nourished and well developed General Appearance ED: well developed and NAD Neck full ROM and supple Back/Spine normal ROM and normal to inspection Extremity normal to inspection and full ROM Extremity Narrative: Tenderness in the right hand, metacarpals 3-5 approximately, more in the distal half of them. No deformities. Full range of motion of all digits and joints, including intact FDS/FDP/extensors throughout all fingers. Normal inspection, no evidence of any skin injury/break. Nontender at the wrist and elsewhere in the right upper extremity. Neuro oriented x3, no focal motor deficits and no sensory deficits noted Sensorium / Orientation: alert Psych mental status grossly normal and thought process normal Skin no wounds Rashes: no rashes MDM MDM MDM Narrative Medical decision making narrative: X-rays of the right hand were obtained. They were read by radiology, showing old healed fractures of the third metacarpal, as well as the base of the fourth metacarpal. Patient is not tender in these areas, furthermore there was a an x-ray of the right hand in 2010 that showed the old fracture of the third metacarpal. Patient is reassured that he likely simply contused his hand. Supportive care is advised. Discharge Plan Triage Chief Complaint: Upper Extremity Injury ED Provider: Arthur Valenzuela Dx/Rx/DC Orders Clinical Impression: Contusion of hand, right Instructions: ED Hand Contusion Prescriptions: No Action (DME) Handicap Placard See Rx Instructions .ROUTE .MEDSUPPLY Qty: 1 RF: 0 metformin 1,000 MG tablet 1,000 mg PO BID RF: 0 acetaminophen 325 MG tablet 650 mg PO Q6H PRN PRN (Reason: Pain Score 1-10/Temp > 100.7 F) RF: 0 lisinopril 20 MG tablet 20 mg PO DAILY RF: 0 sitagliptin 100 MG tablet 100 mg PO DAILY RF: 0 ergocalciferol (vitamin D2) 50,000 UNIT capsule 50,000 unit PO Q7D Qty: 4 RF: 0 apixaban 5 MG tablets,dose pack 5 mg PO BID Qty: 60 RF: 1 doxycycline monohydrate 100 MG capsule 100 mg PO BID Qty: 14 RF: 0 amoxicillin-pot clavulanate 875 MG tablet 875 mg PO Q12H Qty: 14 RF: 0 Primary Care Provider: Gavin Raymundo Referrals: Gavin Raymundo MD [Primary Care Provider] - 1 Week if not improving Disposition Disposition: Home, Self Care
== END 2020-12-31 22:00 | disposition home or self-care (01) ==
PROVIDERS: Emergency Provider Emergency Medicine; PCP Internal Medicine
DX: S60.221A Contusion of right hand, initial encounter (principal); X50.0XXA Overexertion from strenuous movement or load, initial encounter; Y93.89 Activity, other specified; Y92.9 Unspecified place or not applicable; Y99.9 Unspecified external cause status; E11.9 Type 2 diabetes mellitus without complications; G47.33 Obstructive sleep apnea (adult) (pediatric); I10 Essential (primary) hypertension; M19.90 Unspecified osteoarthritis, unspecified site; F17.200 Nicotine dependence, unspecified, uncomplicated; Z79.01 Long term (current) use of anticoagulants; Z79.1 Long term (current) use of non-steroidal anti-inflammatories (NSAID); Z79.84 Long term (current) use of oral hypoglycemic drugs
CPT/HCPCS: 73130; 99282

== ENCOUNTER 2021-01-13 21:50 | Inpatient (IN) | payer MEDICAID, SELFPAY ==
[2021-01-01 14:01] VITALS: BMI 47.5
[2021-01-13 21:50] VITALS: BP 139/67; PULSE 114; RESP 20; TEMP 35.8; O2SAT 91; BMI 41.8
--- NOTE | 2021-01-13 22:45 | EKG12_ITS ---
Test Reason : WOUND Blood Pressure : / mmHG Vent. Rate : 098 BPM Atrial Rate : 098 BPM P-R Int : 130 ms QRS Dur : 086 ms QT Int : 354 ms P-R-T Axes : 004 060 055 degrees QTc Int : 451 ms Normal sinus rhythm Normal ECG Confirmed by DIANDRA STAFFORD, MIKE ([id number]), social director CHARLIE THOMAS ([id number]) on 01/15/2021 1:59:30 PM Referred By: MR Confirmed By:MIKE JIM MD
--- NOTE | 2021-01-13 22:45 | RAD_ITS ---
STUDY: X-RAY - RIGHT FOOT CLINICAL: Male, 50 years old. infection TECHNIQUE: 3 view(s) of the foot. COMPARISON: None. FINDINGS: Large plantar wound with soft tissue ulceration. Extensive diffuse soft tissue swelling and edema. Osseous destruction of the mid foot which is likely osteomyelitis and/or possible superimposed Charcot joint. Prior amputation of the fourth and fifth toes as well as the distal second toe. RAD/Foot min 3 Views IMPRESSION: Larger plantar soft tissue ulceration with suspected osteomyelitis Electronically Signed: Jarret Kaiser DO at 0:31 EDT Tel , Service support ,
--- NOTE | 2021-01-13 23:08 | EDS_ITS ---
HPI History of Present Illness Chief Complaint: Wound Narrative Narrative: Patient presenting for evaluation due to infection of the right foot. Patient is about 2 months status post amputation of his toes on that foot. He has been dealing with wound care, had improvement of all of his wounds on his foot is been wearing a walking boot since then. Patient states that on last week he had an emergence of pain in that foot as well as a development of an ulcer. He also states that he developed a strange rash over his arms bilaterally. States that initially he thought maybe that was poison hyacinth, but did not hurt itch or burn but some calamine lotion on it and the did get any better. He does report that he is been having some subjective fevers. He now has foul drainage coming from his right foot. Pain is moderate, worse with palpation movement and ambulation PFSH [facility] Medical History Amputation of toe of left foot Cellulitis Charcot arthropathy of midfoot DVT (deep venous thrombosis) History of esophageal disorder Hypertension KRYSTAL (obstructive sleep apnea) Osteoarthritis Type 2 diabetes mellitus Venous insufficiency Home Medications metformin 1,000 mg PO BID 01/23/20 [History Last Taken 10/29/20] acetaminophen 650 mg PO Q6H PRN PRN tab 07/23/20 [Rx Last Taken Unknown] lisinopril 20 mg PO DAILY 10/29/20 [History Last Taken 10/29/20] sitagliptin 100 mg PO DAILY 10/29/20 [History Last Taken 10/29/20] apixaban 5 mg PO BID #60 tab.ds.pk 10/31/20 [Rx Last Taken Unknown] Handicap Placard #1 ea 12/05/20 [Rx Last Taken Unknown] dulaglutide [Trulicity] mg SUBCUT QWEEK 01/13/21 [History Last Taken Unknown] Allergy/AdvReac Type Severity Reaction Status Date / Time ketorolac [From Toradol] AdvReac Upset Verified 01/13/21 22:15 Stomach NSAIDS (Non-Steroidal AdvReac Upset Verified 01/13/21 22:15 Anti-Inflamma Stomach Family History Mother Hypertension Diabetes Heart disease Sister Hypertension Diabetes Crohns disease Brother Diabetes Social History Smoking Status: Current every day smoker tobacco type: cigarettes alcohol intake: never substance use type: does not use what type of physical activity do you participate in: walking frequency: daily ROS ROS ED Constitutional Constitutional ED: Reports fever(s) and subjective ENT ENT ED: Denies rhinorrhea Cardiovascular Cardiovascular: Denies chest pain Respiratory/Chest Respiratory/Chest: Denies cough or dyspnea Gastrointestinal Gastrointestinal: Denies abdominal pain, diarrhea, nausea or vomiting Genitourinary Genitourinary ED: Denies dysuria or hematuria Musculoskeletal Musculoskeletal: Reports other Details: Right foot pain and ulcer Integumentary Reports rash Neurologic Neurologic: Denies paresthesias or weakness Psychiatric Psychiatric: Denies depression Endocrine Endocrinology: Denies fatigue Allergic/Immunologic Allergic/Immunologic ED: Denies urticaria EXAM Physical Exam Const Vital Signs: 01/13/21 21:50 01/13/21 23:26 01/13/21 23:37 Temperature 96.4 F L 99.8 F H Temperature Source Temporal Oral Pulse Rate 114 H Respiratory Rate 20 H Blood Pressure 139/67 H Blood Pressure Mean 91 Pulse Ox 91 94 Oxygen Delivery Method Room Air Room Air 01/14/21 00:11 Temperature 99.8 F H Temperature Source Oral Pulse Rate 90 Respiratory Rate 25 H Blood Pressure 117/63 Blood Pressure Mean 81 Pulse Ox 95 Oxygen Delivery Method Room Air Positive well nourished, well developed and obese General Appearance ED: well developed and NAD Nutritional Appearance: obese HEENT Reports moist mucous membranes Negative for trauma or tenderness Eyes EOMs intact bilaterally Neck no lymphadenopathy, supple and no JVD Chest Wall inspection of chest normal Resp normal respiratory effort and clear to auscultation bilaterally Cardio regular rhythm, no murmurs and peripheral pulses 2+ throughout Rate: tachycardic GI normal to inspection, nondistended, normoactive bowel sounds, non-tender and no masses Palpation: soft Back/Spine normal to inspection Extremity Extremity Narrative: Chronic skin changes noted of the patient's lower extremities bilaterally. Examination of the patient's right foot shows approximately a 8 cm in diameter full-thickness ulcer over the lateral portion of the patient's sole of his foot. Is robles and dusky at the base with foul- smelling purulent drainage. There is no lymphangitic streaking. Patient does have evidence of slight petechia on the arms and legs, no purpura are noted. General Extremety ED: Negative for tenderness Neuro oriented x3 and no sensory deficits noted Sensorium / Orientation: alert Motor Exam: strength 5/5 throughout Psych mental status grossly normal Skin no rashes or lesions noted MDM MDM MDM Narrative Medical decision making narrative: Patient presented due to concern for infection in the right foot. Patient does have evidence of sepsis likely stemming from that. Sepsis work-up was initiated. Patient was noted to have a leukocytosis of 13.9. He has normal lactic acid. He has no significant electrolyte derangements. X-ray of the patient's foot by my personal review as well as radiology demonstrates evidence of osteomyelitis and a large ulcer. Patient was given Zosyn, ultimately trended back the patient's cultures and he was also given vancomycin due to a past history of MRSA. I spoke with podiatry who did recommend the patient be n.p.o. for likely operation tomorrow. I will admit the patient under the hospitalist. Lab Data Labs: Laboratory Results - last 24 hr 01/13/21 01/13/21 01/13/21 23:20 23:20 23:20 WBC 13.9 H RBC 4.42 L Hgb 11.8 L Hct 36.0 L MCV 81.4 MCH 26.7 L MCHC 32.8 RDW Std Deviation 46.2 H RDW Coeff of Maria Fernanda 15.5 H Plt Count 205 MPV 12.1 H Immature Gran % (Auto) 1.700 H Neut % (Auto) 83.9 H Lymph % (Auto) 5.2 L [place] % (Auto) 9.0 Eos % (Auto) 0.1 Baso % (Auto) 0.1 Absolute Neuts (auto) 11.7 H Absolute Lymphs (auto) 0.72 L Nucleated RBC % 0 PT 15.9 H INR 1.3 APTT 39.2 H Sodium 132 L Potassium 3.3 L Chloride 99 Carbon Dioxide 26.0 Anion Gap 7 BUN 16 Creatinine 1.03 Estim Creat Clear Calc 91.38 Est GFR (MDRD) Af Amer 98 Est GFR (MDRD) Non-Af 81 BUN/Creatinine Ratio 15.5 Glucose 125 H Lactic Acid Calcium 8.3 L Total Bilirubin 0.50 AST 22 ALT 19 Alkaline Phosphatase 58 Total Protein 7.3 Albumin 2.5 L Globulin 4.8 H Albumin/Globulin Ratio 0.5 L 01/13/21 23:20 WBC RBC Hgb Hct MCV MCH MCHC RDW Std Deviation RDW Coeff of Maria Fernanda Plt Count MPV Immature Gran % (Auto) Neut % (Auto) Lymph % (Auto) [place] % (Auto) Eos % (Auto) Baso % (Auto) Absolute Neuts (auto) Absolute Lymphs (auto) Nucleated RBC % PT INR APTT Sodium Potassium Chloride Carbon Dioxide Anion Gap BUN Creatinine Estim Creat Clear Calc Est GFR (MDRD) Af Amer Est GFR (MDRD) Non-Af BUN/Creatinine Ratio Glucose Lactic Acid 1.1 Calcium Total Bilirubin AST ALT Alkaline Phosphatase Total Protein Albumin Globulin Albumin/Globulin Ratio Radiography Diagnostic Testing: Radiology Impression Foot X-Ray 01/13/21 22:45 IMPRESSION: Larger plantar soft tissue ulceration with suspected osteomyelitis Electronically Signed: Jarret Kaiser DO at 0:31 EDT Tel , Service support , EKG Initial EKG: Attestation: I personally reviewed and interpreted this EKG as follows: (Sinus rhythm at [address] segments normal T waves normal LA and QTc intervals no evidence of acute ischemia or arrhythmia) Discharge Plan Triage Chief Complaint: Wound ED Provider: Rell Rosenthal Dx/Rx/DC Orders Clinical Impression: Sepsis, Osteomyelitis Prescriptions: No Action (DME) Handicap Placard See Rx Instructions .ROUTE .MEDSUPPLY Qty: 1 RF: 0 metformin 1,000 MG tablet 1,000 mg PO BID RF: 0 acetaminophen 325 MG tablet 650 mg PO Q6H PRN PRN (Reason: Pain Score 1-10/Temp > 100.7 F) RF: 0 lisinopril 20 MG tablet 20 mg PO DAILY RF: 0 sitagliptin 100 MG tablet 100 mg PO DAILY RF: 0 apixaban 5 MG tablets,dose pack 5 mg PO BID Qty: 60 RF: 1 Trulicity 3 mg/0.5 mL pen injector SUBCUT QWEEK RF: 0 Primary Care Provider: Gavin Raymundo Referrals: Gavin Raymundo MD [Primary Care Provider] - Disposition Disposition: Acute Care [facility]
[2021-01-13] MEDS: Morphine 4 MG/ML Syringe IV (23:19)
[2021-01-13] MEDS: Ondansetron 4 MG/2 ML Vial IV (23:20)
[2021-01-13 23:26] VITALS: O2SAT 94
[2021-01-13 23:37] VITALS: TEMP 37.7
[2021-01-14 00:11] VITALS: BP 117/63; PULSE 90; RESP 25; TEMP 37.7; O2SAT 95
[2021-01-14 00:14] LABS: Absolute Lymphocyte Count 0.72 X10^3/uL (0.83-4.51); Absolute Neutrophil Count 11.7 X10^3/uL (2.0-7.7); Basophil# 0.02 X10^3/uL; Basophil% 0.1 % (0-1); Eosinophil# 0.01 X10^3/uL; Eosinophils% 0.1 % (0-5); Hemoglobin 11.8 g/dL (13.0-16.5); Lymphocyte # 0.72 X10^3/ul (0.83-4.51); Lymphocyte % 5.2 % (19-41); Mean Corp Hgb Conc 32.8 g/dL (32-36); Mean Corpuscular Hgb 26.7 pg (27.0-32.0); Mean Corpuscular Volume 81.4 fL (80-94); Mean Platelet Vol. 12.1 fl (6.2-12.0); Monocyte# 1.25 X10^3/uL; NRBC Flagged by Analyzer 0 % (0-5); Neutrophil # 11.65 X10^3/uL (2.7-7.7); Neutrophil % 83.9 % (47-70); Platelet Count 205 K/mm3 (150-450); RBC Distribution Width CV 15.5 % (11.6-14.6); RBC Distribution Width SD 46.2 fl (35.1-43.9); Red Blood Count 4.42 M/mm3 (4.6-6.2); White Blood Count 13.9 K/mm3 (4.4-11.0)
[2021-01-14 00:31] LABS: ALB/GLOB Ratio 0.5 RATIO (0.9-2.4); AST(SGOT) 22 U/L (15-37); Alanine Aminotransfer ALT/SGPT 19 U/L (16-61); Albumin, Serum 2.5 g/dL (3.2-5.0); Alkaline Phosphatase 58 U/L (45-117); Anion Gap 7 (5-15); BUN 16 mg/dL (7-18); BUN/Creat Ratio 15.5 RATIO (10-20); Calcium,Total 8.3 mg/dL (8.5-10.1); Chloride 99 mmol/L (98-107); Creatinine, Serum 1.03 mg/dL (0.70-1.30); EST Glomerular Filtration Rate 81 mL/min (>60); Est Glom Filt Rate - Afr Amer 98 mL/min (>60); Estimated Creatinine Clearance 91.38 ml/min; Globulin 4.8 g/dL (2.2-4.2); Glucose 125 mg/dL (74-106); Potassium 3.3 mmol/L (3.5-5.1); Protein, Total 7.3 g/dL (6.4-8.2); Sodium Level 132 mmol/L (136-145)
[2021-01-14 00:32] LABS: Lactic Acid 1.1 mmol/L (0.4-1.9)
[2021-01-14 00:45] LABS: International Normalized Ratio 1.3; Prothrombin Time (Protime)PT. 15.9 SECONDS (11.7-14.9)
[2021-01-14 00:46] LABS: Partial Thromboplast Time 39.2 Seconds (24.1-36.2)
--- NOTE | 2021-01-14 01:23 | PCM.HP.STD ---
HPI - General General Date of Admission: 01/14/21 HPI Narrative EUSEBIA HECTOR, is a 50 M with a significant history of diabetes and charcot foot who presents to emergency department with a draining wound on the plantar side of his right foot that he noticed about a week ago. Patient used to wear surgical boot so is unsure of exact progression of wound. However he thinks that the wound started with a boil that burst opened. Associated for symptom is excruciating pain of the right foot. He described the pain as sharpness; numbness and tingling. The pain worsens with activity and improves with rest. Patient follows up with Dr. Ramos, band singer. He reports that 2 to 3 months he had amputation of fourth and fifth metatarsal; and skin grafts to sites. [facility] Medical History Amputation of toe of left foot Cellulitis Charcot arthropathy of midfoot DVT (deep venous thrombosis) History of esophageal disorder Hypertension KRYSTAL (obstructive sleep apnea) Osteoarthritis Type 2 diabetes mellitus Venous insufficiency Home Medications metformin 1,000 mg PO BID 01/23/20 [History Last Taken 01/13/21] acetaminophen 650 mg PO Q6H PRN PRN tab 07/23/20 [Rx Last Taken Unknown] lisinopril 20 mg PO DAILY 10/29/20 [History Last Taken 01/13/21] sitagliptin 100 mg PO DAILY 10/29/20 [History Last Taken 01/13/21] apixaban 5 mg PO BID #60 tab.ds.pk 10/31/20 [Rx Last Taken 01/13/21 16:00] Handicap Placard #1 ea 12/05/20 [Rx Last Taken Unknown] dulaglutide [Trulicity] 3 mg SUBCUT TU 01/13/21 [History Last Taken 01/07/21] Allergy/AdvReac Type Severity Reaction Status Date / Time ketorolac [From Toradol] AdvReac Upset Verified 01/13/21 22:15 Stomach NSAIDS (Non-Steroidal AdvReac Upset Verified 01/13/21 22:15 Anti-Inflamma Stomach Family History Mother Hypertension Diabetes Heart disease Sister Hypertension Diabetes Crohns disease Brother Diabetes Surgical History History of cholecystectomy History of esophageal surgery Status post amputation of right foot through metatarsal bone Social History Smoking Status: Current every day smoker tobacco type: cigarettes alcohol intake: never substance use type: does not use what type of physical activity do you participate in: walking frequency: daily ROS ROS Narrative 12 point review of system is negative except as stated in HPI. Vital Signs Vital Signs Vital Signs: 01/13/21 21:50 01/13/21 23:26 01/13/21 23:37 Temperature 96.4 F L 99.8 F H Temperature Source Temporal Oral Pulse Rate 114 H Respiratory Rate 20 H Blood Pressure 139/67 H Blood Pressure Mean 91 Pulse Ox 91 94 Oxygen Delivery Method Room Air Room Air 01/14/21 00:11 Temperature 99.8 F H Temperature Source Oral Pulse Rate 90 Respiratory Rate 25 H Blood Pressure 117/63 Blood Pressure Mean 81 Pulse Ox 95 Oxygen Delivery Method Room Air Weight Weight: 136.078 kg Body Mass Index (BMI) 41.8 Physical Exam Narrative Physical exam: General: Well-nourished, well-developed, no acute distress Head: Normocephalic, atraumatic, no tenderness Eyes: PERRLA, EOMI ENT, no trauma, moist mucous membranes, no rhinorrhea Neck: Nontender, full range of motion, no spinal tenderness, deformities, step-off CVS: Regular rate and rhythm Respiratory no acute distress, rhonchi. Abdomen: Soft, nontender, nondistended, normal bowel sounds, no masses : Deferred Back: Nontender, no CVA tenderness, no midline spinal tenderness, deformities, step-offs Extremities: Amputated fourth and fifth metatarsal of right foot. Amputated second digit of right foot. Amputated fifth digit of left toe. Edematous right foot Skin: Scattered petechial rash. Ulcer at the plantar side of right foot. Ulcer between big toe and second toe of left foot. Neuro: Alert, oriented, cranial nerves II through XII grossly intact. Results Lab / Micro Data Result Diagrams: 01/13/21 23:20 01/13/21 23:20 Labs: Laboratory Results - last 24 hr 01/13/21 01/13/21 01/13/21 23:20 23:20 23:20 WBC 13.9 H RBC 4.42 L Hgb 11.8 L Hct 36.0 L MCV 81.4 MCH 26.7 L MCHC 32.8 RDW Std Deviation 46.2 H RDW Coeff of Maria Fernanda 15.5 H Plt Count 205 MPV 12.1 H Immature Gran % (Auto) 1.700 H Neut % (Auto) 83.9 H Lymph % (Auto) 5.2 L [place] % (Auto) 9.0 Eos % (Auto) 0.1 Baso % (Auto) 0.1 Absolute Neuts (auto) 11.7 H Absolute Lymphs (auto) 0.72 L Nucleated RBC % 0 PT 15.9 H INR 1.3 APTT 39.2 H Sodium 132 L Potassium 3.3 L Chloride 99 Carbon Dioxide 26.0 Anion Gap 7 BUN 16 Creatinine 1.03 Estim Creat Clear Calc 91.38 Est GFR (MDRD) Af Amer 98 Est GFR (MDRD) Non-Af 81 BUN/Creatinine Ratio 15.5 Glucose 125 H Lactic Acid Calcium 8.3 L Total Bilirubin 0.50 AST 22 ALT 19 Alkaline Phosphatase 58 Total Protein 7.3 Albumin 2.5 L Globulin 4.8 H Albumin/Globulin Ratio 0.5 L 01/13/21 23:20 WBC RBC Hgb Hct MCV MCH MCHC RDW Std Deviation RDW Coeff of Maria Fernanda Plt Count MPV Immature Gran % (Auto) Neut % (Auto) Lymph % (Auto) [place] % (Auto) Eos % (Auto) Baso % (Auto) Absolute Neuts (auto) Absolute Lymphs (auto) Nucleated RBC % PT INR APTT Sodium Potassium Chloride Carbon Dioxide Anion Gap BUN Creatinine Estim Creat Clear Calc Est GFR (MDRD) Af Amer Est GFR (MDRD) Non-Af BUN/Creatinine Ratio Glucose Lactic Acid 1.1 Calcium Total Bilirubin AST ALT Alkaline Phosphatase Total Protein Albumin Globulin Albumin/Globulin Ratio Radiology Impression Foot X-Ray 01/13/21 22:45 IMPRESSION: Larger plantar soft tissue ulceration with suspected osteomyelitis Electronically Signed: Jarret Kaiser DO at 0:31 EDT Tel , Service support , Assessment & Plan Assessment/Plan (1) Osteomyelitis: QUALIFIERS: Laterality: right Osteomyelitis location: foot Osteomyelitis type: other acute Qualified Code(s): M86.171 - Other acute osteomyelitis, right ankle and foot (2) Sepsis: QUALIFIERS: Sepsis acute organ dysfunction status: without acute organ dysfunction Sepsis type: sepsis due to unspecified organism Qualified Code(s): A41.9 - Sepsis, unspecified organism (3) Type 2 diabetes mellitus: QUALIFIERS: Diabetes mellitus complication detail: with neuropathic arthropathy Diabetes mellitus complication status: with diabetic arthropathy Diabetes mellitus intermediate insulin use: without intermediate use Qualified Code(s): 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 Lactic acid less than 2. Infected wound of right dorsal foot. Foot x-ray:Larger plantar soft tissue ulceration with suspected osteomyelitis. Actual foot x-ray image was independently interpreted. I agree with the latest interpretation. Blood culture x2 was ordered at the emergency department; follow. Review of records showed a bone culture of the right foot on 10/29/2020 showed Streptococcus agalactiae. Also bone culture of the right foot on 07/17/2020 showed MRSA and other organisms. Imaging department doctor reported discussed the case with Dr. Ramos band singer who recommended that patient be kept n.p.o. for possible intervention. Podiatry consult and if the disease consult. Started on Zosyn and vancomycin in the emergency department and continued. We will keep n.p.o. Gentle IV hydration while n.p.o. Diabetes mellitus Patient with euglycemia on presentation Hold home Metformin and sitagliptin Accu-Chek [id number] with correction scale insulin ordered. Tobacco abuse Counselled. Declined nicotine patch History of DVT Hold Eliquis in the setting of a possible surgical intervention. Morbid Obesity BMI:41.8. Complicates care. Lifestyle modification recommended. DVT prophylaxis: SCD ordered Charges/Coding Visit Charges Inpatient E&M: 06360 Init Hosp L3
[2021-01-14 01:27] VITALS: BP 112/58; PULSE 89; RESP 20; TEMP 37.3; O2SAT 95
[2021-01-14 02:32] VITALS: BP 130/64; PULSE 88; RESP 18; TEMP 37.4; O2SAT 95; BMI 45.7
[2021-01-14] MEDS: Morphine 2 MG/ML Syringe IV ×4 (03:05→22:37)
[2021-01-14] MEDS: 0.9% Normal Saline 1,000 ML 50 ML IV (03:05)
--- NOTE | 2021-01-14 03:56 | PCM.RX.CS ---
Consult Pharmacy has been consulted to manage selected antiobiotic: Vancomycin Type of Consult: New start Suspected Infection: Sepsis Labs: Sodium 132 mmol/L (136-145) L 01/13/21 23:20 Potassium 3.3 mmol/L (3.5-5.1) L 01/13/21 23:20 Chloride 99 mmol/L (98-107) 01/13/21 23:20 Carbon Dioxide 26.0 mmol/L (21.0-32.0) 01/13/21 23:20 Anion Gap 7 (5-15) 01/13/21 23:20 BUN 16 mg/dL (7-18) 01/13/21 23:20 Creatinine 1.03 mg/dL (0.70-1.30) 01/13/21 23:20 Est GFR (MDRD) Af Amer 98 mL/min (>60) 01/13/21 23:20 Est GFR (MDRD) Non-Af 81 mL/min (>60) 01/13/21 23:20 BUN/Creatinine Ratio 15.5 RATIO (10-20) 01/13/21 23:20 Glucose 125 mg/dL (74-106) H 01/13/21 23:20 Weight used for dosin.8 kg Estimated Creatinine Clearance: 127 Goal Trough: 15-20 mcg/mL Pharmacy Plan for Drug Dosing: Pharmacy Service will continue to monitor and adjust dosing as required. Medications Vancomycin HCl 1,500 mg/ (Sodium Chloride) 530 mls @ 250 mls/hr IV Q8H BLAIR Discontinued Medications Vancomycin HCl 2,000 mg/ (Sodium Chloride) 540 mls @ 250 mls/hr IV X1 ONE Stop: 01/14/21 03:17 Last Admin: 01/14/21 03:39 Dose: Infused Documented by: Follow-Up Labs: Trough Vancomycin Labs to be done on [date and time ordered]: 01/15 @ 8811
[2021-01-14 05:36] LABS: Bedside Glucose 110 mg/dL (70-110)
--- NOTE | 2021-01-14 06:00 | EKG12_ITS ---
Test Reason : AM EKG Blood Pressure : / mmHG Vent. Rate : 078 BPM Atrial Rate : 078 BPM P-R Int : 144 ms QRS Dur : 092 ms QT Int : 404 ms P-R-T Axes : 018 048 042 degrees QTc Int : 460 ms Normal sinus rhythm Normal ECG When compared with ECG of 24-JAN-2020 04:54, No significant change was found Confirmed by VALERIA STAFFORD, JOHN ([id number]), research editor YESENIA GONZALEZ ([id number]) on 01/21/2021 7:50:36 AM Referred By: BRIAN Confirmed By:JOHN SHAW MD
[2021-01-14 06:06] LABS: Absolute Lymphocyte Count 1.43 X10^3/uL (0.83-4.51); Absolute Neutrophil Count 10.3 X10^3/uL (2.0-7.7); Basophil# 0.04 X10^3/uL; Basophil% 0.3 % (0-1); Eosinophil# 0.08 X10^3/uL; Eosinophils% 0.6 % (0-5); Hematocrit 36.6 % (40-54); Hemoglobin 12.6 g/dL (13.0-16.5); Lymphocyte # 1.43 X10^3/ul (0.83-4.51); Lymphocyte % 10.9 % (19-41); Mean Corp Hgb Conc 34.4 g/dL (32-36); Mean Corpuscular Hgb 28.2 pg (27.0-32.0); Mean Corpuscular Volume 81.9 fL (80-94); Mean Platelet Vol. 11.3 fl (6.2-12.0); Monocyte# 1.17 X10^3/uL; Monocyte% 8.9 % (0-10); NRBC Flagged by Analyzer 0 % (0-5); Neutrophil # 10.28 X10^3/uL (2.7-7.7); Neutrophil % 78.3 % (47-70); Platelet Count 209 K/mm3 (150-450); RBC Distribution Width CV 15.7 % (11.6-14.6); RBC Distribution Width SD 46.9 fl (35.1-43.9); Red Blood Count 4.47 M/mm3 (4.6-6.2); White Blood Count 13.1 K/mm3 (4.4-11.0)
[2021-01-14 06:33] LABS: Anion Gap 8 (5-15); BUN 13 mg/dL (7-18); BUN/Creat Ratio 14.4 RATIO (10-20); Calcium,Total 8.4 mg/dL (8.5-10.1); Chloride 101 mmol/L (98-107); EST Glomerular Filtration Rate 95 mL/min (>60); Est Glom Filt Rate - Afr Amer 115 mL/min (>60); Estimated Creatinine Clearance 104.58 ml/min; Glucose 109 mg/dL (74-106); Potassium 3.4 mmol/L (3.5-5.1); Sodium Level 136 mmol/L (136-145)
--- NOTE | 2021-01-14 07:13 | PCM.CONS.GEN ---
Assessment & Plan Assessment/Plan (1) Tobacco abuse: (2) Type 2 diabetes mellitus: QUALIFIERS: Diabetes mellitus intermodal dispatcher insulin use: without intermodal dispatcher use Diabetes mellitus complication status: with diabetic arthropathy Diabetes mellitus complication detail: with neuropathic arthropathy Qualified Code(s): E11.610 - Type 2 diabetes mellitus with diabetic neuropathic arthropathy PLAN: Patient seen and examined at bedside resting comfortably. Patient noted to have 3 distinct wounds to his right foot. These been there approximately 1 week. There is concern for infection especially down to level of bone as 2 of the wounds probe to this level. Patient has history of Charcot foot that began in October 2020. There has been some noted collapse of the midfoot with fracturing noted. There is some healing noted at this time. At that time other was no wounds. 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 He is currently utilizing a cam walker. Patient to remain nonweightbearing to the right lower extremity Continue daily dressing changes of quarter inch iodoform packing to both tunneling wounds to both the fifth ray amputation site and plantar wound. Silver to be applied to the lateral foot wound. Cover with dry sterile dressing. Wound cultures were taken today will follow results MRI ordered to assess potential osteomyelitis. It is noted that the foot may light up due to Charcot changes as well. Discussed with the patient possibility of going to the operating room in order to clean out ulceration sites and obtain bone cultures to assess infection. Discussed that I want to get an MRI first. Discussed that operation may take place tomorrow if MRI is concerning for osteomyelitis. Discontinue patient n.p.o. status at this time. Patient is noted to be on Vanco and Zosyn with ID consult placed Tentative OR surgical debridement pending MRI results. Follow wound cultures. Thank you for the consult. Podiatry will continue to follow. Please contact if any questions or concerns This note was generated with [employer] dictation software. It may contain incorrect words, spelling, and punctuation that were not noted in checking the note before signing. 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 Patient has significant medical history including history of osteomyelitis and foot wound, tobacco abuse, diabetes, venous insufficiency, Charcot, obesity. Patient relates that he continues to lose weight and his blood sugars are much better controlled in the low 100s now. He relates he noticed a blister to the bottom of his foot about 1 week ago. He relates it was like a boil. He relates it poped and clearish fluid came out. He denies any pus. He denies any systemic signs of illness. He relates he has been wearing his CAM boot. Dr Ramos had ordered a CAM boot for him and it has been casted. He is supposed to pick it up from [employer] tomorrow. He has history of Charcot foot to his right foot that started in October 2020. He has also a history of osteomyelitis to the fifth digit requiring a amputation of his partial fifth ray. He has been seen at the wound care center for healing complications from that surgery. Patient had just healed this wound when the Charcot event happened. Is noted that he had complete midfoot collapse across metatarsals 1 through 5 with the Charcot event. It is noted he had bone cultures obtained 10/29/2020 with Streptococcus agalactiae. He was discharged from the hospital with doxycycline and Augmentin per infectious disease recommendations in October. He denies any nausea, fever, chills, vomiting, diarrhea, constipation, chest pain, shortness of breath FOR[facility]LY [facility], [facility] Medical History Amputation of toe of left foot Cellulitis Charcot arthropathy of midfoot DVT (deep venous thrombosis) History of esophageal disorder Hypertension KRYSTAL (obstructive sleep apnea) Osteoarthritis Type 2 diabetes mellitus Venous insufficiency Home Medications metformin 1,000 mg PO BID 01/23/20 [History Last Taken 01/13/21] acetaminophen 650 mg PO Q6H PRN PRN tab 07/23/20 [Rx Last Taken Unknown] lisinopril 20 mg PO DAILY 10/29/20 [History Last Taken 01/13/21] sitagliptin 100 mg PO DAILY 10/29/20 [History Last Taken 01/13/21] apixaban 5 mg PO BID #60 tab.ds.pk 10/31/20 [Rx Last Taken 01/13/21 16:00] Handicap Placard #1 ea 12/05/20 [Rx Last Taken Unknown] dulaglutide [Trulicity] 3 mg SUBCUT TU 01/13/21 [History Last Taken 01/07/21] Allergy/AdvReac Type Severity Reaction Status Date / Time ketorolac [From Toradol] AdvReac Upset Verified 01/13/21 22:15 Stomach NSAIDS (Non-Steroidal AdvReac Upset Verified 01/13/21 22:15 Anti-Inflamma Stomach Family History Mother Hypertension Diabetes Heart disease Sister Hypertension Diabetes Crohns disease Brother Diabetes Surgical History History of cholecystectomy History of esophageal surgery Status post amputation of right foot through metatarsal bone Social History Smoking Status: Current every day smoker tobacco type: cigarettes alcohol intake: never substance use type: does not use what type of physical activity do you participate in: walking frequency: daily ROS Constitutional Constitutional: Denies chills or fever(s) Cardiovascular Cardiovascular: Denies chest pain Respiratory/Chest Respiratory/Chest: Denies cough Gastrointestinal Gastrointestinal: Denies nausea or vomiting Musculoskeletal Musculoskeletal: Denies muscle cramps or muscle weakness Integumentary Integumentary: Reports wounds Neurologic Neurologic: Reports numbness and tingling Physical Exam Const alert and no apparent distress General Appearance: cooperative and comfortable HEENT Head and Scalp: atraumatic Resp normal respiratory effort Effort and Inspection: able to speak in complete sentences Extremity normal capillary refill and no calf tenderness General Extremity: edema right lower extremity (foot especially) moderate, no tenderness to palpation of joints or extremities and other findings Other Details: Capillary refill time less than 3 seconds noted to digits ; Negative for clubbing or cyanosis Peripheral Pulses: Yes posterior tibial pulses present right 1+ and dorsalis pedis pulses present right (nonpalpable) Skin General Skin Exam: atrophy and dry skin; Negative for ecchymosis, erythema, eschar, pallor or dermatitis Rashes: no rashes Wounds: wounds noted Wound Narrative: ulcers noted to right midfoot plantar [id number] and lateral 1.5x1x0.1cm as well as at 5th ray resection amputation site 1.5x0.5x2cm No purulence, streaking, fluctuation, crepitus, or abscess felt. There is mild malodor, serosanginous drainage, probing to bone to both plantar wound as well as to amputation site ulcer. Skin is atrophic and hairless. There is significant foot edema. This has been present for several months secondary to charcot foot. Largely fibrotic base with mcintyre discoloration noted to plantar wound. Neuro Gait (Neuro): normal gait, antalgic and assistive device used other (CAM boot) Sensory Exam: extremities light-touch: decreased Motor Exam: strength 5/5 throughout and general weakness Psych Appearance: appropriate Attitude: calm Lab / Micro Data Result Diagrams: 01/14/21 05:42 01/14/21 05:42 Labs: Laboratory Results - last 24 hr 01/13/21 01/13/21 01/13/21 23:20 23:20 23:20 WBC 13.9 H RBC 4.42 L Hgb 11.8 L Hct 36.0 L MCV 81.4 MCH 26.7 L MCHC 32.8 RDW Std Deviation 46.2 H RDW Coeff of Maria Fernanda 15.5 H Plt Count 205 MPV 12.1 H Immature Gran % (Auto) 1.700 H Neut % (Auto) 83.9 H Lymph % (Auto) 5.2 L [place] % (Auto) 9.0 Eos % (Auto) 0.1 Baso % (Auto) 0.1 Absolute Neuts (auto) 11.7 H Absolute Lymphs (auto) 0.72 L Nucleated RBC % 0 PT 15.9 H INR 1.3 APTT 39.2 H Sodium 132 L Potassium 3.3 L Chloride 99 Carbon Dioxide 26.0 Anion Gap 7 BUN 16 Creatinine 1.03 Estim Creat Clear Calc 91.38 Est GFR (MDRD) Af Amer 98 Est GFR (MDRD) Non-Af 81 BUN/Creatinine Ratio 15.5 Glucose 125 H Lactic Acid Calcium 8.3 L Total Bilirubin 0.50 AST 22 ALT 19 Alkaline Phosphatase 58 Total Protein 7.3 Albumin 2.5 L Globulin 4.8 H Albumin/Globulin Ratio 0.5 L POC Glucose 01/13/21 01/14/21 01/14/21 23:20 05:31 05:42 WBC RBC Hgb Hct MCV MCH MCHC RDW Std Deviation RDW Coeff of Maria Fernanda Plt Count MPV Immature Gran % (Auto) Neut % (Auto) Lymph % (Auto) [place] % (Auto) Eos % (Auto) Baso % (Auto) Absolute Neuts (auto) Absolute Lymphs (auto) Nucleated RBC % PT INR APTT Sodium 136 Potassium 3.4 L Chloride 101 Carbon Dioxide 27.0 Anion Gap 8 BUN 13 Creatinine 0.90 Estim Creat Clear Calc 104.58 Est GFR (MDRD) Af Amer 115 Est GFR (MDRD) Non-Af 95 BUN/Creatinine Ratio 14.4 Glucose 109 H Lactic Acid 1.1 Calcium 8.4 L Total Bilirubin AST ALT Alkaline Phosphatase Total Protein Albumin Globulin Albumin/Globulin Ratio POC Glucose 110 01/14/21 05:42 WBC 13.1 H RBC 4.47 L Hgb 12.6 L Hct 36.6 L MCV 81.9 MCH 28.2 MCHC 34.4 RDW Std Deviation 46.9 H RDW Coeff of Maria Ferannda 15.7 H Plt Count 209 MPV 11.3 Immature Gran % (Auto) 1.000 H Neut % (Auto) 78.3 H Lymph % (Auto) 10.9 L [place] % (Auto) 8.9 Eos % (Auto) 0.6 Baso % (Auto) 0.3 Absolute Neuts (auto) 10.3 H Absolute Lymphs (auto) 1.43 Nucleated RBC % 0 PT INR APTT Sodium Potassium Chloride Carbon Dioxide Anion Gap BUN Creatinine Estim Creat Clear Calc Est GFR (MDRD) Af Amer Est GFR (MDRD) Non-Af BUN/Creatinine Ratio Glucose Lactic Acid Calcium Total Bilirubin AST ALT Alkaline Phosphatase Total Protein Albumin Globulin Albumin/Globulin Ratio POC Glucose Radiology Impression Foot X-Ray 01/13/21 22:45 IMPRESSION: Larger plantar soft tissue ulceration with suspected osteomyelitis Electronically Signed: Jarret Kaiser DO at 0:31 EDT Tel , Service support ,
--- NOTE | 2021-01-14 07:29 | PN.HOSP_ITS ---
Subjective Subjective Patient seen and examined. Still complains of right foot pain. He denies any fever or chills and review of systems otherwise negative. Podiatry on board. He has remained hemodynamically stable. Objective Data Objective Data Vital Signs: Vital Signs Temp Pulse Resp BP Pulse Ox 99.4 F H 88 18 130/64 H 95 01/14/21 02:32 01/14/21 02:32 01/14/21 02:32 01/14/21 02:32 01/14/21 02:32 Oxygen Delivery Method Room Air Weight: 328 lb 0.765 oz Body Mass Index (BMI) 45.7 Intake & Output: Intake and Output for Last 24 Hours 01/12/21 01/13/21 01/14/21 23:59 23:59 23:59 Intake Total 685.00 / 685.00 Balance 685.00 / 685.00 Lab / Micro Data Result Diagrams: 01/14/21 05:42 01/14/21 05:42 Labs: Laboratory Results - last 24 hr 01/13/21 01/13/21 01/13/21 23:20 23:20 23:20 WBC 13.9 H RBC 4.42 L Hgb 11.8 L Hct 36.0 L MCV 81.4 MCH 26.7 L MCHC 32.8 RDW Std Deviation 46.2 H RDW Coeff of Maria Fernanda 15.5 H Plt Count 205 MPV 12.1 H Immature Gran % (Auto) 1.700 H Neut % (Auto) 83.9 H Lymph % (Auto) 5.2 L Person % (Auto) 9.0 Eos % (Auto) 0.1 Baso % (Auto) 0.1 Absolute Neuts (auto) 11.7 H Absolute Lymphs (auto) 0.72 L Nucleated RBC % 0 PT 15.9 H INR 1.3 APTT 39.2 H Sodium 132 L Potassium 3.3 L Chloride 99 Carbon Dioxide 26.0 Anion Gap 7 BUN 16 Creatinine 1.03 Estim Creat Clear Calc 91.38 Est GFR (MDRD) Af Amer 98 Est GFR (MDRD) Non-Af 81 BUN/Creatinine Ratio 15.5 Glucose 125 H Lactic Acid Calcium 8.3 L Total Bilirubin 0.50 AST 22 ALT 19 Alkaline Phosphatase 58 Total Protein 7.3 Albumin 2.5 L Globulin 4.8 H Albumin/Globulin Ratio 0.5 L POC Glucose 01/13/21 01/14/21 01/14/21 23:20 05:31 05:42 WBC RBC Hgb Hct MCV MCH MCHC RDW Std Deviation RDW Coeff of Maria Fernanda Plt Count MPV Immature Gran % (Auto) Neut % (Auto) Lymph % (Auto) Person % (Auto) Eos % (Auto) Baso % (Auto) Absolute Neuts (auto) Absolute Lymphs (auto) Nucleated RBC % PT INR APTT Sodium 136 Potassium 3.4 L Chloride 101 Carbon Dioxide 27.0 Anion Gap 8 BUN 13 Creatinine 0.90 Estim Creat Clear Calc 104.58 Est GFR (MDRD) Af Amer 115 Est GFR (MDRD) Non-Af 95 BUN/Creatinine Ratio 14.4 Glucose 109 H Lactic Acid 1.1 Calcium 8.4 L Total Bilirubin AST ALT Alkaline Phosphatase Total Protein Albumin Globulin Albumin/Globulin Ratio POC Glucose 110 01/14/21 05:42 WBC 13.1 H RBC 4.47 L Hgb 12.6 L Hct 36.6 L MCV 81.9 MCH 28.2 MCHC 34.4 RDW Std Deviation 46.9 H RDW Coeff of Maria Fernanda 15.7 H Plt Count 209 MPV 11.3 Immature Gran % (Auto) 1.000 H Neut % (Auto) 78.3 H Lymph % (Auto) 10.9 L Person % (Auto) 8.9 Eos % (Auto) 0.6 Baso % (Auto) 0.3 Absolute Neuts (auto) 10.3 H Absolute Lymphs (auto) 1.43 Nucleated RBC % 0 PT INR APTT Sodium Potassium Chloride Carbon Dioxide Anion Gap BUN Creatinine Estim Creat Clear Calc Est GFR (MDRD) Af Amer Est GFR (MDRD) Non-Af BUN/Creatinine Ratio Glucose Lactic Acid Calcium Total Bilirubin AST ALT Alkaline Phosphatase Total Protein Albumin Globulin Albumin/Globulin Ratio POC Glucose Radiography Diagnostic Testing: Radiology Impression Foot X-Ray 01/13/21 22:45 IMPRESSION: Larger plantar soft tissue ulceration with suspected osteomyelitis Electronically Signed: Jarret Kaiser DO at 0:31 EDT Tel , Service support , Physical Exam Const alert, oriented x3 and no apparent distress Exam Limitations: no limitations HEENT head/scalp atraumatic and moist oral mucous membranes Head and Scalp: normocephalic Eyes PERRL, EOMs intact bilaterally and conjunctivae normal Neck no lymphadenopathy Resp normal respiratory effort, no retractions, no use of accessory muscles and clear to auscultation bilaterally Cardio regular rate, regular rhythm, S1 normal heart sound, S2 normal heart sound and no murmurs GI normal to inspection, nondistended, normoactive bowel sounds, soft to palpation, non-tender and non-distended Extremity Extremity Narrative: right foot wrapped in bandage Peripheral Pulses: Yes pulses 2+ throughout Skin Skin Narrative: right foot wrapped in bandage Neuro oriented x3 Sensorium / Orientation: awake and alert Psych affect normal Assessment & Plan Assessment/Plan (1) Sepsis: QUALIFIERS: Sepsis type: sepsis due to unspecified organism Sepsis acute organ dysfunction status: without acute organ dysfunction Qualified Code(s): A41.9 - Sepsis, unspecified organism (2) Osteomyelitis: QUALIFIERS: Osteomyelitis type: other acute Osteomyelitis location: foot Laterality: right Qualified Code(s): M86.171 - Other acute osteomyelitis, right ankle and foot PLAN: #Sepsis due to acute osteomyelitis * xray of the foot showed a large plantar, soft tissue ulceration with suspected osteomyelitis * on IV vancomycin and zosyn * MRI ordered; blood cultuers pending * currenlty NPO for possible surgical intervention by podiatry * being gently hydrated with IVF * PT/OT on board * #Type 2 diabetes mellitus * Home meds of Metformin and sitagliptin on hold. * On insulin sliding scale. Accu-Cheks AC at bedtime. * #History of DVT: Eliquis is currently on hold in light of possible surgical in tervention. #Super morbid obesity: BMI is 45.8. Complicates acute care, recovery and expected prognosis. DVT prophylaxis: SCDs Charges/Coding Visit Charges Inpatient E&M: 92404 Subs Hosp L3
--- NOTE | 2021-01-14 07:43 | MRI_ITS ---
STUDY: MRI RIGHT MIDFOOT REASON FOR EXAM: New plantar and lateral foot ulcers, neuropathic osteoarthropathy versus osteomyelitis. TECHNIQUE: Standardized fat and water weighted pulse sequences were obtained in all 3 orthogonal planes. COMPARISON: MRI images 10/29/2020 and radiographs 01/13/2021. FINDINGS: There is bone edema of the tarsal bones of the midfoot, bases and diaphyses of the first, second and third metatarsals, and remaining amputated fourth and fifth metatarsals (inversion recovery sagittal images 11-26) with with arthropathy of the tarsometatarsal and midfoot articulations. There is chronic rupture of Lisfranc ligament. These changes are most suggestive of neuropathic osteoarthropathy. There are is interval development of osseous erosion of the plantar aspect of the cuboid (T2 series 6 images 22-26; T1 sagittal images 16, 17) with an underlying skin ulcer and therefore consistent with osteomyelitis. There is a focal fluid collection at the plantar aspect of the first and second metatarsal diaphyses (T2 series 6 images 11, 12) measuring approximately 2.5 x 2.2 cm (AP x transverse) containing small pockets of gas suggestive of abscess. There is an ulcer at the lateral aspect of the foot (T1 series 5 images 12-14). There is diffuse edema in the subcutis adipose space. There is a tibiotalar joint effusion (inversion recovery sagittal image 20). There is a talonavicular joint effusion (inversion recovery sagittal image 23) and subluxation of the talonavicular joint. There is a calcaneonavicular joint effusion (inversion recovery sagittal images 14-16). There is mild tibialis anterior tenosynovitis (inversion recovery sagittal image 22). MRI/Lower Ext/No Jt/w/o IMPRESSION: Interval development of osseous erosion of the plantar aspect of the cuboid with underlying ulcer consistent with osteomyelitis. Soft tissue abscess at the plantar aspect of the first and second metatarsals. Bone edema of the tarsal bones of the midfoot and metatarsals with arthropathy, most suggestive of neuropathic osteoarthropathy. Edema in the subcutis adipose space and ulceration at the lateral aspect of the foot. Mild tibialis anterior tenosynovitis. Tibiotalar, talonavicular and calcaneocuboid joint effusions. Electronically Signed: Rodney Benjamin MD at 10:50 EDT Tel , Service support ,
[2021-01-14 07:48] LABS: Hemoglobin A1c 5.9 % (3.8-5.6)
[2021-01-14 08:30] VITALS: BP 117/56; PULSE 81; RESP 16; TEMP 36.7; O2SAT 96
[2021-01-14] MEDS: Potassium Chloride Oral Tablet 20 MEQ 40 MEQ PO (08:53)
--- NOTE | 2021-01-14 09:00 | NURSING ---
pt to MRI via bed
[2021-01-14] MEDS: Lisinopril 20 MG Tablet PO (10:42)
[2021-01-14 11:29] LABS: M R Staph aureus DNA By PCR Negative (Negative); Probe Check PASS; Specimen Processing Control PASS; Staph aureus DNA By PCR NEGATIVE (Negative)
[2021-01-14 12:15] LABS: Bedside Glucose 141 mg/dL (70-110)
--- NOTE | 2021-01-14 12:15 | CASEMGMT ---
ASHLEY PAZ Assessment: Face to Face with pt for initial transition planning/care coordination assessment. ASHLEY PAZ introduced self and role at [facility], pt voices understanding and consents to assessment. Pt is A/O x4 and answers all questions appropriately at this time. Pt sitting up in bed in no distress. Care providers, pharmacy, and demographics verified/updated. Admitting Dx: sepsis secondary to osteomyelitis PCP: Zackary Specialists:Richard, podiatry [facility] Insurance: [employer] Prescription Benefit: yes LW/HPOA: Pt denies having a LW/DPOA. LNOK: Ed Rosalind, brother Living Arrangements: Pt lives in a ground level apartment with no steps to enter. Pt states he is able to bathe self and dress self. States he is sponge bathing. Pt denies concerns at home. Transportation: Pt does not drive, he uses transportation through [employer]. Denies concerns with transportation. DME/HHC/SNF: Pt has a walker, w/c and grab bars in his home. Pt denies need for further DME. Pt has previously had [facility] as well as [facility]. Pt states he is willing to have [place] back. Pt states he was not comfortable with the nursing skills. Discussed with patient the possibility of needing [facility] for wound care again and potential IV antibiotics. Pt states that he just recently finished giving his brother IV antibiotics at home. He states he could perform these himself if need be. Pt denied need for a list of HHC providers including quality and resource use data and consistent with the patient?s preferred geographic region, medical needs, and insurance network. He states he will use anyone that accepts him except for N. Pt states no concerns with going home at time of dc. Pt states no further concerns/needs. CM to follow. Advised pt to ask CM if any further question/concerns/needs arise, voices understanding. Pt Goal: Home with HHC Plan: Home with HHC
--- NOTE | 2021-01-14 14:26 | CHAPLAIN ---
Type of Pastoral Visit _x__ Initial Visit ___ Follow-up Visit ___ On-call Visit ___ General Patient Visit ___ Spiritual Assessment ___ Family Conference ___ Bereavement ___ Rapid Response ___ Code Blue ___ Other (describe below) Pastoral Care Referral From _x__ Patient ___ Family ___ Nurse ___ Physician ___ Switch Repairer ___ Counter Checker ___ Other (describe below) Sacrament/Intervention _x__ Active listening ___ Anointing ___ Mandaen ___ Bereavement ___ Communion ___ Cami exploration ___ ___ Life review _x__ Prayer ___ Reconciliation ___ Sacrament of Sick _x__ Supportive presence ___ Wedding ___ Other (describe below) Pastoral Comments surgery scheduled for tomorrow
--- NOTE | 2021-01-14 16:00 | CASEMGMT ---
Late entry: The following [facility] agencies were contacted who were on the [employer] website as providers but stated they [facility] not [facility]: [facility], [facility], Shira, and [facility]. The following do not staff [place]: [facility], [facility], [facility]), [place] [facility] and [facility]. [facility] and [facility] are reviewing the patient's information. Although pt prefers not to have [facility]. Will wait for acceptance.
[2021-01-14 17:05] LABS: Bedside Glucose 132 mg/dL (70-110)
[2021-01-14] MEDS: 0.9% Saline Lock 10 ML Syringe IV (17:50)
[2021-01-14 22:30] VITALS: BP 111/63; PULSE 80; RESP 18; TEMP 36.8; O2SAT 94
[2021-01-14 22:45] LABS: Bedside Glucose 133 mg/dL (70-110)
[2021-01-15] VITALS (13 sets, daily range): BP systolic 101–125; BP diastolic 61–71; PULSE 74–84; RESP 16–18; TEMP 36.2–36.8; O2SAT 92–98; BMI 46.0
[2021-01-15 01:53] LABS: Vancomycin, Trough Level 19.3 ug/mL (5.0-15.0)
--- NOTE | 2021-01-15 02:12 | PCM.RX.CS ---
Consult Pharmacy has been consulted to manage selected antiobiotic: Vancomycin Type of Consult: Follow-up Labs: Sodium 136 mmol/L (136-145) 01/14/21 05:42 Potassium 3.4 mmol/L (3.5-5.1) L 01/14/21 05:42 Chloride 101 mmol/L (98-107) 01/14/21 05:42 Carbon Dioxide 27.0 mmol/L (21.0-32.0) 01/14/21 05:42 Anion Gap 8 (5-15) 01/14/21 05:42 BUN 13 mg/dL (7-18) 01/14/21 05:42 Creatinine 0.90 mg/dL (0.70-1.30) 01/14/21 05:42 Est GFR (MDRD) Af Amer 115 mL/min (>60) 01/14/21 05:42 Est GFR (MDRD) Non-Af 95 mL/min (>60) 01/14/21 05:42 BUN/Creatinine Ratio 14.4 RATIO (10-20) 01/14/21 05:42 Glucose 109 mg/dL (74-106) H 01/14/21 05:42 Vancomycin Trough 19.3 ug/mL (5.0-15.0) H 01/15/21 01:27 Microbiology: Microbiology 01/13/21 15:00 Mucosa - Nose SARS-CoV-2 Antigen (Rapid) - Final 01/13/21 23:20 Blood Culture (Wb) - Left Hand Blood Culture - Preliminary 01/14/21 07:00 Wound - Right Foot Gram Stain - Final Goal Trough: 15-20 mcg/mL Pharmacy Plan for Drug Dosing: Pharmacy Service will continue to monitor and adjust dosing as required. TROUGH 19.3 AND SCr DECREASED TO 0.9. NO CHANGES Follow-Up Labs: Trough Vancomycin Labs to be done on [date and time ordered]: 01/19 @ 3872
[2021-01-15 05:22] LABS: Absolute Lymphocyte Count 1.23 X10^3/uL (0.83-4.51); Basophil# 0.05 X10^3/uL; Basophil% 0.4 % (0-1); Eosinophil# 0.27 X10^3/uL; Eosinophils% 2.4 % (0-5); Hematocrit 36.7 % (40-54); Hemoglobin 11.6 g/dL (13.0-16.5); Lymphocyte # 1.23 X10^3/ul (0.83-4.51); Lymphocyte % 10.7 % (19-41); Mean Corp Hgb Conc 31.6 g/dL (32-36); Mean Corpuscular Hgb 26.2 pg (27.0-32.0); Mean Corpuscular Volume 82.8 fL (80-94); Mean Platelet Vol. 11.6 fl (6.2-12.0); Monocyte# 0.81 X10^3/uL; Monocyte% 7.1 % (0-10); NRBC Flagged by Analyzer 0 % (0-5); Neutrophil # 8.96 X10^3/uL (2.7-7.7); Platelet Count 177 K/mm3 (150-450); RBC Distribution Width CV 15.9 % (11.6-14.6); RBC Distribution Width SD 48.6 fl (35.1-43.9); Red Blood Count 4.43 M/mm3 (4.6-6.2); White Blood Count 11.5 K/mm3 (4.4-11.0)
[2021-01-15 05:41] LABS: Anion Gap 7 (5-15); BUN 19 mg/dL (7-18); BUN/Creat Ratio 25.5 RATIO (10-20); Calcium,Total 8.4 mg/dL (8.5-10.1); Chloride 104 mmol/L (98-107); Creatinine, Serum 0.74 mg/dL (0.70-1.30); EST Glomerular Filtration Rate 118 mL/min (>60); Est Glom Filt Rate - Afr Amer 143 mL/min (>60); Glucose 104 mg/dL (74-106); Potassium 3.5 mmol/L (3.5-5.1); Sodium Level 138 mmol/L (136-145)
[2021-01-15] MEDS: Morphine 2 MG/ML Syringe IV (05:54)
--- NOTE | 2021-01-15 07:22 | PN.HOSP_ITS ---
Subjective Subjective Patient seen and examined. He still complains of pain in his foot. Review of systems otherwise negative. He has remained hemodynamically stable. Objective Data Objective Data Vital Signs: Vital Signs Temp Pulse Resp BP Pulse Ox 98.2 F 79 18 112/65 95 01/15/21 05:55 01/15/21 05:55 01/15/21 05:55 01/15/21 05:55 01/15/21 05:55 Oxygen Delivery Method Room Air Weight: 328 lb 0.765 oz Body Mass Index (BMI) 45.7 Intake & Output: Intake and Output for Last 24 Hours 01/13/21 01/14/21 01/15/21 23:59 23:59 23:59 Intake Total 1845.00 / 1845.00 904.17 / 904.17 Output Total 750 / 750 500 / 500 Balance 1095.00 / 1095.00 404.17 / 404.17 Lab / Micro Data Result Diagrams: 01/15/21 05:06 01/15/21 05:06 Labs: Laboratory Results - last 24 hr 01/14/21 01/14/21 01/14/21 05:42 07:00 12:11 WBC RBC Hgb Hct MCV MCH MCHC RDW Std Deviation RDW Coeff of Maria Fernanda Plt Count MPV Immature Gran % (Auto) Neut % (Auto) Lymph % (Auto) Coffee % (Auto) Eos % (Auto) Baso % (Auto) Absolute Neuts (auto) Absolute Lymphs (auto) Nucleated RBC % Sodium Potassium Chloride Carbon Dioxide Anion Gap BUN Creatinine Estim Creat Clear Calc Est GFR (MDRD) Af Amer Est GFR (MDRD) Non-Af BUN/Creatinine Ratio Glucose Hemoglobin A1c 5.9 H Calcium Vancomycin Trough S.aureus Protein A PCR NEGATIVE MRSA (PCR) Negative POC Glucose 141 H 01/14/21 01/14/21 01/15/21 16:59 22:36 01:27 WBC RBC Hgb Hct MCV MCH MCHC RDW Std Deviation RDW Coeff of Maria Fernanda Plt Count MPV Immature Gran % (Auto) Neut % (Auto) Lymph % (Auto) Coffee % (Auto) Eos % (Auto) Baso % (Auto) Absolute Neuts (auto) Absolute Lymphs (auto) Nucleated RBC % Sodium Potassium Chloride Carbon Dioxide Anion Gap BUN Creatinine Estim Creat Clear Calc Est GFR (MDRD) Af Amer Est GFR (MDRD) Non-Af BUN/Creatinine Ratio Glucose Hemoglobin A1c Calcium Vancomycin Trough 19.3 H S.aureus Protein A PCR MRSA (PCR) POC Glucose 132 H 133 H 01/15/21 01/15/21 05:06 05:06 WBC 11.5 H RBC 4.43 L Hgb 11.6 L Hct 36.7 L MCV 82.8 MCH 26.2 L MCHC 31.6 L D RDW Std Deviation 48.6 H RDW Coeff of Maria Fernanda 15.9 H Plt Count 177 MPV 11.6 Immature Gran % (Auto) 1.400 H Neut % (Auto) 78.0 H Lymph % (Auto) 10.7 L Coffee % (Auto) 7.1 Eos % (Auto) 2.4 Baso % (Auto) 0.4 Absolute Neuts (auto) 9.0 H Absolute Lymphs (auto) 1.23 Nucleated RBC % 0 Sodium 138 Potassium 3.5 Chloride 104 Carbon Dioxide 27.0 Anion Gap 7 BUN 19 H Creatinine 0.74 Estim Creat Clear Calc 127.20 Est GFR (MDRD) Af Amer 143 Est GFR (MDRD) Non-Af 118 BUN/Creatinine Ratio 25.5 H Glucose 104 Hemoglobin A1c Calcium 8.4 L Vancomycin Trough S.aureus Protein A PCR MRSA (PCR) POC Glucose Micro: Microbiology 01/13/21 15:00 Mucosa - Nose SARS-CoV-2 Antigen (Rapid) - Final 01/13/21 23:20 Blood Culture (Wb) - Left Hand Blood Culture - Preliminary 01/14/21 07:00 Wound - Right Foot Gram Stain - Final Radiography Diagnostic Testing: Radiology Impression Lower Extremity MRI 01/14/21 07:43 IMPRESSION: Interval development of osseous erosion of the plantar aspect of the cuboid with underlying ulcer consistent with osteomyelitis. Soft tissue abscess at the plantar aspect of the first and second metatarsals. Bone edema of the tarsal bones of the midfoot and metatarsals with arthropathy, most suggestive of neuropathic osteoarthropathy. Edema in the subcutis adipose space and ulceration at the lateral aspect of the foot. Mild tibialis anterior tenosynovitis. Tibiotalar, talonavicular and calcaneocuboid joint effusions. Electronically Signed: Rodney Benjamin MD at 10:50 EDT Tel , Service support , Physical Exam Const alert, oriented x3 and no apparent distress Exam Limitations: no limitations HEENT head/scalp atraumatic and moist oral mucous membranes Head and Scalp: normocephalic Eyes PERRL, EOMs intact bilaterally and conjunctivae normal Neck no lymphadenopathy Resp normal respiratory effort, no retractions, no use of accessory muscles and clear to auscultation bilaterally Cardio regular rate, regular rhythm, S1 normal heart sound, S2 normal heart sound and no murmurs GI normal to inspection, nondistended, normoactive bowel sounds, soft to palpation, non-tender and non-distended Extremity no clubbing, cyanosis or edema Extremity Narrative: right foot wrapped in bandage Peripheral Pulses: Yes pulses 2+ throughout Skin Skin Narrative: right foot wrapped in bandage Neuro oriented x3 Sensorium / Orientation: awake and alert Psych affect normal Assessment & Plan Assessment/Plan (1) Sepsis: QUALIFIERS: Sepsis type: sepsis due to unspecified organism Sepsis acute organ dysfunction status: without acute organ dysfunction Qualified Code(s): A41.9 - Sepsis, unspecified organism (2) Osteomyelitis: QUALIFIERS: Osteomyelitis type: other acute Osteomyelitis location: foot Laterality: right Qualified Code(s): M86.171 - Other acute osteomyelitis, right ankle and foot PLAN: #Sepsis due to acute osteomyelitis * xray of the foot showed a large plantar, soft tissue ulceration with suspected osteomyelitis * on IV vancomycin and zosyn * MRI of the rivht foot showed evidence of osteomyelitis of the plantar aspect of the foot with soft tissue abscess at the plantar aspect and bone edema of the tarsal bones of the midfoot. * preliminary blood cultures show gram positive cocci in chains. wound gram stain showing 4+ rbcs and 1+ wbcs as well as 3+ gram positve cocci and 1+ gram negative rods, with rare gram positive rods. * podiatry on board * PT/OT on board * #Type 2 diabetes mellitus * Home meds of Metformin and sitagliptin on hold. * On insulin sliding scale. Accu-Cheks AC at bedtime. * #History of DVT: Eliquis is currently on hold in light of possible surgical intervention. #Super morbid obesity: BMI is 45.8. Complicates acute care, recovery and expected prognosis. DVT prophylaxis: SCDs Charges/Coding Visit Charges Inpatient E&M: 28376 Subs Hosp L2
[2021-01-15] MEDS: Morphine 4 MG/ML Syringe IV ×3 (09:48→21:21)
--- NOTE | 2021-01-15 09:55 | CASEMGMT ---
RN CM in to pt room to make aware that this CM called multiple agencies and as of now the only agency who will accept is [facility], which is provider pt requested not to have. Pt states he will take them back if they are the only choice. Pt then states he spoke to his brother lastnight and he feels since he lives alone that he may need to go to a facility for some therapy short term. [facility]. He states if neither of them take him, then he will go home. TC to [facility] to make aware to keep referral for now and that pt is having surgery today, spoke with Giovana. Referral info sent yesterday. CM to follow.
--- NOTE | 2021-01-15 11:29 | CASEMGMT ---
Addendum entered by Pepper Petit 01/15/21 12:14: Social Work SW spoke with [facility] and they do have beds available. Initial clinical information faxed. Will follow up tomorrow. GURMEET Sahni Original Note: Social Work SW received referral that pt is to have surgery today and may need SNF at time of discharge. SW met with pt in room and provided a list of SNF providers including quality and resource use data and consistent with the patient's preferred geographic region, medical needs, and insurance network. Pt initially stating he thinks he can return home however, upon discussing possible need for dressing changes to foot and IV ATB pt states he would likely be better off in a SNF for a short stay as he does not want to be dependent upon his brother for his medical care. Pt reviewed list provided and pt preferred providers are [facility].[place] [facility]. Pt surgery scheduled for today. SW will follow up after surgery for SNF placement. GURMEET Sahni
[2021-01-15 11:50] LABS: Bedside Glucose 91 mg/dL (70-110)
--- NOTE | 2021-01-15 12:23 | RAD_ITS ---
STUDY: X-RAY - RIGHT FOOT CLINICAL: Male, 50 years old. I D TECHNIQUE: 2 view(s) of the foot. COMPARISON: Comparison is made with prior study dated 01/13/2021. FINDINGS: Intraoperative imaging provided for incision and drainage. RAD/Foot 2 Views IMPRESSION: Intraoperative images are provided for incision and drainage. Electronically Signed: Jeronimo Gomez MD at 15:30 EDT , Service support ,
--- NOTE | 2021-01-15 12:27 | PCM.OPRPT ---
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: (2) Tobacco abuse: (3) Osteomyelitis: (4) Type 2 diabetes mellitus: (5) Charcot arthropathy of midfoot: (6) Obese: (7) History of amputation of foot: (8) Right foot pain: (9) Bilateral lower extremity edema: (10) Venous insufficiency: Report of Operation Date of Procedure: 01/15/21 Pre-Operative Diagnosis: Right foot ulcer down to bone suspected osteomyelitis Diabetes with neuropathy Charcot foot Post-Operative Diagnosis: Same Surgery/Procedure Performed:: Debridement of ulceration into the level of bone with biopsy of bone and wound VAC application Description of Surgical Findings:: materials:wound vac, pulse lavage hemostasis: ankle tournaquet 250mmhg local: 20cc 1% lidocaine plain and 0.5% marcaine plain in 1:1 mix Surgeon: Cheri Otoole research archaeologist: None (Oh Greco PGY1) Type of Anesthesia: Local MAC Specimen's removed: bone cuboid right foot post lavage cultures Drains: wound vac Estimated Blood Loss (mL): 75 Description of Procedure: Indication for procedure: Patient is a 50-year-old male who presents with worsening foot infection and ulceration to his right lower extremity. Patient is been seen by Dr. Ramos and myself in the past. Patient seen by me in the past for healing of foot ulceration which had since healed. Patient saw Dr. Ramos for Charcot foot right foot. Patient has been in a cam boot since then and has had a [employer] boot ordered. Patient had wound development to the bottom aspect of his foot approximately 1 week duration before going to the hospital. Imaging was obtained which is suspicious for both Charcot arthropathy changes as well as osteomyelitis to the plantar cuboid bone. Imaging was also suspicious for abscess underneath the first and second metatarsals. Discussed with the patient the need to go to surgery in order to clean out the ulceration sites as well as to take a biopsy of the bone. Discussed with patient that a more aggressive bone debridement to help smooth out the plantar aspect the foot to help prevent future ulcerations would also be recommended. Patient was agreement with this type of bone debridement. Discussed application of wound VAC to help facilitate more healing. Patient is agreement with treatment plan. Patient is continuing antibiotics on the floor. It is noted that ID is consulted as well. Patient is aware that the wound will not be able to be closed during surgery given its size. Patient is aware that he will need to go undergo wound healing afterwards. Discussed returning to the wound care center after discharge for continued care. Discussed possibility of IV antibiotics Discussed possibility of COVID exposure. Patient had all risk benefits alternatives the complications including but not limited to infection, delayed healing, nonhealing, need for further surgery or amputation was discussed with the patient. No guarantees were given or implied. Patient agreed to proceed with the procedure. All questions were answered. Description of procedure: Patient was seen in the preoperative holding area where chart was reviewed and patient was examined and all questions were answered to patient satisfaction. Patient then transferred to the OR and placed on the OR table in supine position. After administration of IV line IV sedation additional 20 cc of half percent Marcaine plain and 1% lidocaine plain one-to-one mixture was injected in ankle block type fashion. A well-padded ankle tourniquet was applied but not inflated at this time. The operative foot and ankle were then prepped and draped in the usual sterile fashion. The operative limb was elevated and exsanguinated and the ankle tourniquet was inflated at 250mmHg. It was then lowered on sterile field. The plantar ulceration as well as the fourth and fifth ray amputation site ulceration were then debrided with a #15 blade with fresh skin edges made. It is noted that the 2 wounds communicate with 1 another. It is also noted that the wound probes near the fourth metatarsal remnant but does not probe to bone. Is also noted that the wound does probe to the cuboid bone plantar aspect. There is copious amounts of devitalized slough tissue especially to the plantar foot wound. This was all excised sharply with a #15 blade and pickups and hemostats distal include muscle and tendon as well as subcutaneous tissue. The tunneling between the 2 wounds was also debrided as much as possible. There did not seem to be any tracking noted to the medial aspect of the foot where the MRI demonstrated abscesses. It is noted though upon compression of the foot that pus was tracking more from the distal aspect of the foot. Skin about 1 cc of pus was expressed. It was decided not to try to track the wound to these potential sites as there is not much pus to be found and the malodor had resolved. Site was then flushed with cold months normal sterile saline utilizing a pulse lavage to all ulcer sites. A sagittal saw was then introduced in order to debride the plantar aspect of the cuboid bone. This was sent as specimen. A rongure and bur were also utilized to remove the bone and provide a smooth plantar surface. Mini C arm was also utilized with fluoroscopy in order to assess the bone. No sharp bony edges were felt as well as demonstrated on x-ray exam. Swab cultures were also obtained post lavage. Site was then flushed again with normal sterile saline to remove any remaining bony pieces. Once this was done it was decided that bleeding was well enough controlled in order to apply a wound VAC. Black foam was placed to both the plantar and fourth and fifth digit amputation site ulcerations with good seal. Is also noted that there is a wound to the lateral aspect of the foot that had Xeroform placed upon it to protect the site underneath the wound VAC. This wound is superficial in nature. Once wound VAC was applied 4 x 4's and Jens wrap were then placed. The ankle tourniquet was deflated with prompt brisk hyperemic response noted to all digits patient's right foot that were remaining. It is noted there is significant swelling so Jens wrap compression was continued up to the level of the knee. Patient was then transferred from OR to PACU positive in bed status intact. After. Postoperative my patient be transferred back up to the floor for continued care. Podiatry will continue to monitor. Will appreciate ID input upon resulting of the OR cultures. Discussion with the patient showed that he was amendable to going to a facility for recovery. I recommend continuing wound VAC therapy and SNF placement to best optimize patient for healing potential. There is 3 different ulceration sites noted to right foot. There is 1 to the plantar aspect of the right lateral foot that predebridement measured 3.3 x 3.8 x 2 cm and post debridement measured 3.5 x 4 x 7 cm. Another ulceration is noted to the lateral foot at the fourth and fifth ray amputation site which predebridement measured 1.8 x 0.7 x 0.2 cm and post debridement measured 2 x 1.3 x 7 cm. There is also wound to the lateral aspect of the midfoot measuring predebridement 1.8 x 1.3 x 0.1 cm and post debridement 1.9 x 1.4 x 0.2 cm. The wound to the plantar foot and fifth ray amputation went into the level of bone. The lateral foot ulceration went into subcu. These were sharply debrided with a 15 blade as noted above with removal of all devitalized tissue Complications none Admit VTE Documentation VTE Present on Admission: Yes VTE Mechan Device Prophylaxis: SCD's VTE Pharm Prophylaxis ordered?: Yes
--- NOTE | 2021-01-15 12:30 | BON_PTH ---
PATIENT: EUSEBIA HECTOR LOC: 3 U#:[id number] AGE/SX: 50/M ROOM: [facility] [place] RE01/14/[address]: Dr. To Cameron MD : 1970 BED: 1 DIS: 01/21/2021 SPEC #: [id number] RECD: 01/15/21 14:13 STATUS: CHRISSY REQ #: [id number] VALENTINA: 01/15/21 12:[address]: Cheri Otoole DEPT: SURGICAL PATHOLOGY RECD BY: Nica Sams ENTERED: 01/16/21 07:38 SP TYPE: Bone OTHR DR: MD Dr. Del Gaffney MD Dr. Kelly Kubiak, DPM MD Dr. 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 CHRISTIAN:marely 01/22/2021 MICROSCOPIC DESCRIPTION Slides are reviewed. GROSS DESCRIPTION Received in fixative is one container labeled with the patient's name and designated right foot bone, cuboid. The specimen consists of two irregular fragments of calderon bone that in aggregate measure 1.5 x 0.5 x 0.3 cm. The specimen is totally submitted in one cassette after decalcification. / AM:marely 01/16/21 TC:2 CPT: 62785, 68241
[2021-01-15] MEDS: Bupivacaine Mpf 0.5% 30 ML VIAL (13:00)
[2021-01-15] MEDS: Lidocaine 1% (30 ml sdv) 30 ML Vial (13:00)
--- NOTE | 2021-01-15 14:10 | RAD_ITS ---
STUDY: X-RAY - RIGHT FOOT CLINICAL: Male, 50 years old. post op TECHNIQUE: 3 view(s) of the foot. COMPARISON: 01/13/2021 FINDINGS: Diffuse soft tissue swelling has increased since the prior study along the plantar surface. Prior amputation of the second digit and fourth/fifth metatarsals redemonstrated. Unhealed fractures at the base of the first through third metatarsals with moderate degree of bony derangement. Lateral displacement of the third and fourth metatarsals, away from the first metatarsal. Overall similar since prior study. RAD/Foot min 3 Views IMPRESSION: 1. Increased soft tissue swelling of the plantar foot. Status post superficial/vacuum surgical drainage catheter. 2. Extensive bony derangement of the midfoot likely related to neuropathic arthropathy and/or previous injury. Possibility of osteomyelitis is also considered. Little interval change of osseous structures since prior study. Electronically Signed: Junaid De La Garza MD ([place]) at 17:12 EDT , Service support ,
[2021-01-15] MEDS: Lisinopril 20 MG Tablet PO (15:06)
[2021-01-15 15:44] LABS: Probe Check PASS; Staph aureus DNA By PCR POSITIVE (Negative)
--- NOTE | 2021-01-15 15:44 | CM.UR ---
Pt screened with [facility] Palliative Care Screening Tool due to strata 3, pt did not meet criteria.
[2021-01-15 15:46] LABS: M R Staph aureus DNA By PCR POSITIVE (Negative)
[2021-01-15 17:40] LABS: Bedside Glucose 103 mg/dL (70-110)
[2021-01-15] MEDS: 0.9% Normal Saline 1,000 ML 50 ML IV (18:20)
--- NOTE | 2021-01-15 18:46 | NURSING ---
Called [facility] and spoke with Olga regarding wound vac serial number [id number]. confirmation number [id number]
[2021-01-15] MEDS: 0.9% Saline Lock 10 ML Syringe IV (21:21)
[2021-01-15 22:05] LABS: Bedside Glucose 120 mg/dL (70-110)
[2021-01-16] VITALS (8 sets, daily range): BP systolic 105–119; BP diastolic 55–70; PULSE 76–81; RESP 16–18; TEMP 36.4–36.7; O2SAT 92–97
[2021-01-16] MEDS: Morphine 4 MG/ML Syringe IV ×3 (03:48→21:09)
[2021-01-16] MEDS: 0.9% Saline Lock 10 ML Syringe IV ×2 (03:48→18:09)
[2021-01-16 06:26] LABS: Bedside Glucose 95 mg/dL (70-110)
[2021-01-16 06:48] LABS: Absolute Lymphocyte Count 1.25 X10^3/uL (0.83-4.51); Absolute Neutrophil Count 10.8 X10^3/uL (2.0-7.7); Basophil# 0.06 X10^3/uL; Basophil% 0.4 % (0-1); Eosinophil# 0.38 X10^3/uL; Eosinophils% 2.8 % (0-5); Hematocrit 36.3 % (40-54); Hemoglobin 11.4 g/dL (13.0-16.5); Lymphocyte # 1.25 X10^3/ul (0.83-4.51); Lymphocyte % 9.2 % (19-41); Mean Corp Hgb Conc 31.4 g/dL (32-36); Mean Corpuscular Hgb 26.8 pg (27.0-32.0); Mean Corpuscular Volume 85.4 fL (80-94); Mean Platelet Vol. 11.7 fl (6.2-12.0); Monocyte# 0.88 X10^3/uL; Monocyte% 6.5 % (0-10); NRBC Flagged by Analyzer 0 % (0-5); Neutrophil # 10.78 X10^3/uL (2.7-7.7); Neutrophil % 79.6 % (47-70); Platelet Count 197 K/mm3 (150-450); RBC Distribution Width SD 50.6 fl (35.1-43.9); Red Blood Count 4.25 M/mm3 (4.6-6.2); White Blood Count 13.6 K/mm3 (4.4-11.0)
[2021-01-16 07:18] LABS: Anion Gap 7 (5-15); BUN 15 mg/dL (7-18); BUN/Creat Ratio 18.4 RATIO (10-20); Calcium,Total 8.2 mg/dL (8.5-10.1); Chloride 105 mmol/L (98-107); Creatinine, Serum 0.82 mg/dL (0.70-1.30); EST Glomerular Filtration Rate 106 mL/min (>60); Est Glom Filt Rate - Afr Amer 129 mL/min (>60); Estimated Creatinine Clearance 114.79 ml/min; Glucose 96 mg/dL (74-106); Potassium 3.6 mmol/L (3.5-5.1); Sodium Level 138 mmol/L (136-145)
--- NOTE | 2021-01-16 07:25 | PN.HOSP_ITS ---
Subjective Subjective Patient seen and examined. He had debridement with bone biopsy and wound vac application of the right foot yesterday. He has no complaints today and pain is well controlled. Review of systems is otherwise negative. Objective Data Objective Data Vital Signs: Vital Signs Temp Pulse Resp BP Pulse Ox 97.6 F L 81 16 105/55 L 94 01/16/21 03:39 01/16/21 03:39 01/16/21 03:39 01/16/21 03:39 01/16/21 03:39 Oxygen Delivery Method Room Air Weight: 330 lb 6.4 oz Body Mass Index (BMI) 46.0 Intake & Output: Intake and Output for Last 24 Hours 01/14/21 01/15/21 01/16/21 23:59 23:59 23:59 Intake Total 1845.00 / 1845.00 2945.00 / 3595.00 1730 / 1730 Output Total 750 / 750 1875 / 2575 2500 / 2500 Balance 1095.00 / 1095.00 1070.00 / 1020.00 -770 / -770 Lab / Micro Data Result Diagrams: 01/16/21 06:14 01/16/21 06:14 Labs: Laboratory Results - last 24 hr 01/15/21 01/15/21 01/15/21 11:17 13:20 16:42 WBC RBC Hgb Hct MCV MCH MCHC RDW Std Deviation RDW Coeff of Maria Fernanda Plt Count MPV Immature Gran % (Auto) Neut % (Auto) Lymph % (Auto) Early % (Auto) Eos % (Auto) Baso % (Auto) Absolute Neuts (auto) Absolute Lymphs (auto) Nucleated RBC % Sodium Potassium Chloride Carbon Dioxide Anion Gap BUN Creatinine Estim Creat Clear Calc Est GFR (MDRD) Af Amer Est GFR (MDRD) Non-Af BUN/Creatinine Ratio Glucose Calcium S.aureus Protein A PCR POSITIVE H MRSA (PCR) POSITIVE H POC Glucose 91 103 01/15/21 01/16/21 01/16/21 21:06 06:09 06:14 WBC 13.6 H RBC 4.25 L Hgb 11.4 L Hct 36.3 L MCV 85.4 MCH 26.8 L MCHC 31.4 L RDW Std Deviation 50.6 H RDW Coeff of Maria Fernanda 16.0 H Plt Count 197 MPV 11.7 Immature Gran % (Auto) 1.500 H Neut % (Auto) 79.6 H Lymph % (Auto) 9.2 L Early % (Auto) 6.5 Eos % (Auto) 2.8 Baso % (Auto) 0.4 Absolute Neuts (auto) 10.8 H Absolute Lymphs (auto) 1.25 Nucleated RBC % 0 Sodium Potassium Chloride Carbon Dioxide Anion Gap BUN Creatinine Estim Creat Clear Calc Est GFR (MDRD) Af Amer Est GFR (MDRD) Non-Af BUN/Creatinine Ratio Glucose Calcium S.aureus Protein A PCR MRSA (PCR) POC Glucose 120 H 95 01/16/21 06:14 WBC RBC Hgb Hct MCV MCH MCHC RDW Std Deviation RDW Coeff of Maria Fernanda Plt Count MPV Immature Gran % (Auto) Neut % (Auto) Lymph % (Auto) [place] % (Auto) Eos % (Auto) Baso % (Auto) Absolute Neuts (auto) Absolute Lymphs (auto) Nucleated RBC % Sodium 138 Potassium 3.6 Chloride 105 Carbon Dioxide 26.0 Anion Gap 7 BUN 15 Creatinine 0.82 Estim Creat Clear Calc 114.79 Est GFR (MDRD) Af Amer 129 Est GFR (MDRD) Non-Af 106 BUN/Creatinine Ratio 18.4 Glucose 96 Calcium 8.2 L S.aureus Protein A PCR MRSA (PCR) POC Glucose Micro: Microbiology 01/14/21 07:00 Wound - Right Foot Gram Stain - Final 01/14/21 07:00 Wound - Right Foot Wound Culture - Preliminary Streptococcus group B Gram positive carlos 01/13/21 23:20 Blood Culture (Wb) - Left Hand Blood Culture - Preliminary Streptococcus agalactiae (B) 01/13/21 15:00 Mucosa - Nose SARS-CoV-2 Antigen (Rapid) - Final Radiography Diagnostic Testing: Radiology Impression Foot X-Ray 01/15/21 12:23 IMPRESSION: Intraoperative images are provided for incision and drainage. Electronically Signed: Jeronimo Gomez MD at 15:30 EDT , Service support , Physical Exam Const alert, oriented x3 and no apparent distress Exam Limitations: no limitations HEENT head/scalp atraumatic and moist oral mucous membranes Head and Scalp: normocephalic Eyes PERRL, EOMs intact bilaterally and conjunctivae normal Neck no lymphadenopathy Resp normal respiratory effort, no retractions, no use of accessory muscles and clear to auscultation bilaterally Cardio regular rate, regular rhythm, S1 normal heart sound, S2 normal heart sound and no murmurs GI normal to inspection, nondistended, normoactive bowel sounds, soft to palpation, non-tender and non-distended Extremity no clubbing, cyanosis or edema Extremity Narrative: right foot wrapped in bandage; wound vac in place Skin Skin Narrative: right foot wrapped in bandage Neuro oriented x3 Sensorium / Orientation: awake and alert Psych affect normal Assessment & Plan Assessment/Plan (1) Sepsis: QUALIFIERS: Sepsis type: sepsis due to unspecified organism Sepsis acute organ dysfunction status: without acute organ dysfunction Qualified Code(s): A41.9 - Sepsis, unspecified organism (2) Osteomyelitis: QUALIFIERS: Osteomyelitis type: other acute Osteomyelitis location: foot Laterality: right Qualified Code(s): M86.171 - Other acute osteomyelitis, right ankle and foot PLAN: #Sepsis due to acute osteomyelitis * on IV vancomycin and zosyn * MRI of the [facility] foot showed evidence of osteomyelitis of the plantar aspect of the foot with soft tissue abscess at the plantar aspect and bone edema of the tarsal bones of the midfoot. * preliminary blood cultures show gram positive cocci in chains. wound gram stain showing 4+ rbcs and 1+ wbcs as well as 3+ gram positve cocci and 1+ gram negative rods, with rare gram positive rods. * podiatry on board * s/p right foot debridement with wound vac application. * PT/OT on board * #Type 2 diabetes mellitus * Home meds of Metformin and sitagliptin on hold. * On insulin sliding scale. Accu-Cheks AC at bedtime. * #History of DVT: Eliquis is currently on hold in light of possible surgical intervention. Will resume when OK with surgery. #Super morbid obesity: BMI is 45.8. Complicates acute care, recovery and expected prognosis. DVT prophylaxis: SCDs. Resume eliquis when Ok with surgery Charges/Coding Visit Charges Inpatient E&M: 98856 Subs Hosp L2
[2021-01-16] MEDS: oxyCODONE 5 MG Tablet PO ×2 (08:51→16:25)
[2021-01-16] MEDS: Acetaminophen 325 MG Tablet 650 MG PO ×2 (08:51→16:25)
[2021-01-16] MEDS: Lisinopril 20 MG Tablet PO (10:26)
--- NOTE | 2021-01-16 11:16 | CASEMGMT ---
Addendum entered by Bella Morales 01/16/21 11:34: ALLISON received call from Sonja at [facility] stating she is waiting for confirmation from Business office if they can accept pt or not. Sonja to call this worker back. Original Note: Social Work Note ALLISON faxed updated clinicals to [facility], will fax PT/OT when available. Plan: [facility] pending acceptance and pre-cert Bella Morales COSMETICS SUPERVISOR, AFTER SCHOOL TEACHER
--- NOTE | 2021-01-16 13:05 | CASEMGMT ---
Social Work Note SW received message from Sonja at [facility] stating they are not able to accept pt. Pt's second choice for SNF is [facility]. SW placed a call to Chani at [facility] and left message regarding referral. SW faxed referral. Plan: SNF pending acceptance and pre-cert Bella Morales ED SPECIAL EDUCATION TEACHER, LABORATORY VETERINARIAN
--- NOTE | 2021-01-16 13:45 | PN_ITS ---
Subjective Subjective Patient seen and examined resting comfortably. He is status post I&D of his right foot. He relates his pain is well controlled with medication. He relates no issues with the wound VAC. Patient denies any new pedal complaints. Patient denies any nausea, fever, chills, chest pain, shortness of breath, cough, str eaking, purulence, vomiting. Objective Data Objective Data Vital Signs: Vital Signs Temp Pulse Resp BP Pulse Ox 97.5 F L 81 16 119/70 92 01/16/21 09:21 01/16/21 09:21 01/16/21 09:30 01/16/21 09:21 01/16/21 10:57 Oxygen Delivery Method Room Air Weight: 149.867 kg Body Mass Index (BMI) 46.0 Intake & Output: Intake and Output for Last 24 Hours 01/14/21 01/15/21 01/16/21 23:59 23:59 23:59 Intake Total 1845.00 / 1845.00 2945.00 / 3595.00 2507.5 / 2507.5 Output Total 750 / 750 1875 / 2575 2900 / 2900 Balance 1095.00 / 1095.00 1070.00 / 1020.00 -392.5 / -392.5 Lab / Micro Data Result Diagrams: 01/16/21 06:14 01/16/21 06:14 Labs: Laboratory Results - last 24 hr 01/15/21 01/15/21 01/15/21 13:20 16:42 21:06 WBC RBC Hgb Hct MCV MCH MCHC RDW Std Deviation RDW Coeff of Maria Fernanda Plt Count MPV Immature Gran % (Auto) Neut % (Auto) Lymph % (Auto) [place] % (Auto) Eos % (Auto) Baso % (Auto) Absolute Neuts (auto) Absolute Lymphs (auto) Nucleated RBC % Sodium Potassium Chloride Carbon Dioxide Anion Gap BUN Creatinine Estim Creat Clear Calc Est GFR (MDRD) Af Amer Est GFR (MDRD) Non-Af BUN/Creatinine Ratio Glucose Calcium S.aureus Protein A PCR POSITIVE H MRSA (PCR) POSITIVE H POC Glucose 103 120 H 01/16/21 01/16/21 01/16/21 06:09 06:14 06:14 WBC 13.6 H RBC 4.25 L Hgb 11.4 L Hct 36.3 L MCV 85.4 MCH 26.8 L MCHC 31.4 L RDW Std Deviation 50.6 H RDW Coeff of Maria Fernanda 16.0 H Plt Count 197 MPV 11.7 Immature Gran % (Auto) 1.500 H Neut % (Auto) 79.6 H Lymph % (Auto) 9.2 L [place] % (Auto) 6.5 Eos % (Auto) 2.8 Baso % (Auto) 0.4 Absolute Neuts (auto) 10.8 H Absolute Lymphs (auto) 1.25 Nucleated RBC % 0 Sodium 138 Potassium 3.6 Chloride 105 Carbon Dioxide 26.0 Anion Gap 7 BUN 15 Creatinine 0.82 Estim Creat Clear Calc 114.79 Est GFR (MDRD) Af Amer 129 Est GFR (MDRD) Non-Af 106 BUN/Creatinine Ratio 18.4 Glucose 96 Calcium 8.2 L S.aureus Protein A PCR MRSA (PCR) POC Glucose 95 Micro: Microbiology 01/15/21 13:23 Bone - Right Foot Gram Stain - Final 01/15/21 13:23 Bone - Right Foot Wound Culture - Preliminary Beta streptococcus 01/15/21 13:20 Tissue - Aerobic & Anaerobic Swabs Gram Stain - Final 01/15/21 13:20 Tissue - Aerobic & Anaerobic Swabs Wound Culture - Preliminary Gram positive organism 01/14/21 07:00 Wound - Right Foot Gram Stain - Final 01/14/21 07:00 Wound - Right Foot Wound Culture - Preliminary Streptococcus group B Gram positive carlos 01/14/21 07:00 Wound - Right Foot Anaerobic Culture - Preliminary Checking for anaerobes, further studies to follow. 01/13/21 23:20 Blood Culture (Wb) - Left Hand Blood Culture - Final Streptococcus agalactiae (B) 01/13/21 23:15 Blood Culture (Wb) - Anticubital Left Blood Culture - Preliminary No growth in 48 hours. 01/13/21 15:00 Mucosa - Nose SARS-CoV-2 Antigen (Rapid) - Final Radiography Diagnostic Testing: Radiology Impression Foot X-Ray 01/15/21 12:23 IMPRESSION: Intraoperative images are provided for incision and drainage. Electronically Signed: Jeronimo Gomez MD at 15:30 EDT , Service support , Physical Exam Const alert and no apparent distress General Appearance: cooperative and comfortable Resp normal respiratory effort Effort and Inspection: able to speak in complete sentences Extremity normal capillary refill and no calf tenderness General Extremity: edema right lower extremity (foot especially) moderate, no tenderness to palpation of joints or extremities and other findings Other Details: Capillary refill time less than 3 seconds noted to digits ; Negative for clubbing or cyanosis Skin General Skin Exam: atrophy and dry skin; Negative for ecchymosis, erythema, eschar, pallor or dermatitis Rashes: no rashes Wounds: wounds noted Wound Narrative: Wounds noted to right lower extremity x3. These are covered with a wound VAC with good seal no issues. There is noted amputation of fourth and fifth ray as well as second digit. 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: (2) Tobacco abuse: (3) Osteomyelitis: QUALIFIERS: Laterality: right Osteomyelitis location: foot Osteomyelitis type: other acute Qualified Code(s): M86.171 - Other acute osteomyelitis, right ankle and foot (4) Type 2 diabetes mellitus: QUALIFIERS: Diabetes mellitus complication detail: with neuropathic arthropathy Diabetes mellitus complication status: with diabetic arthropathy Diabetes mellitus usp insulin use: without ad terminal makeup operator use Qualified Code(s): E11.610 - Type 2 diabetes mellitus with diabetic neuropathic arthropathy (5) Charcot arthropathy of midfoot: (6) Obese: QUALIFIERS: Body mass index: BMI 40.0-44.9 Obesity classification: adult class 3 (BMI >= 40) Obesity type: due to excess calories Serious obesity comorbidity presence: with serious comorbidity Qualified Code(s): E66.01 - Morbid (severe) obesity due to excess calories; Z68.41 - Body mass index [BMI]40.0-44.9, adult (7) History of amputation of foot: (8) Right foot pain: (9) Bilateral lower extremity edema: (10) Venous insufficiency: PLAN: Noted wound VAC with good seal of the right foot. Patient seen and examined at bedside resting comfortably. Patient is status post I&D with bone debridement of right foot 01/15/[address] Otoole. Patient noted to have Charcot foot to the right foot. He reports no issues after surgery. Patient to remain nonweightbearing to the right lower extremity Continue wound VAC therapy change 3 times a week with black foam to the plantar and ray resection amputation site ulcerations and Xeroform to the lateral foot ulceration covered by wound VAC. This should be well-padded. Compression to be placed on top with Jesn wrap from toes to knee. Initial wound cultures demonstrate group B streptococcus and gram-positive rods from the foot wound. There is also noted to be strep agalactiae noted in his 1 blood culture. OR cultures of the cuboid bone is positive for beta Streptococcus. MRI was reviewed showing both Charcot changes and concern for osteomyelitis of the plantar cuboid area with ulcerations. Patient is noted to be on Vanco and Zosyn with ID consult placed I recommend IV antibiotics as further surgical debridement would unstable to foot further because it caused more potential collapse. Patient is also not a good risk for higher level amputation. Patient noted to have a [place] boot made for him and is ready to be picked up. This probably gives patient the best chance to prevent future ulcerations once his current ulcerations have healed. Nonweightbearing to the right lower extremity Podiatry will continue to follow. Please contact if any questions or concerns. Patient is to follow-up at the wound care center upon discharge with myself. Patient is agreeable to going to a SNF. This note was generated with [employer] dictation software. It may contain incorrect words, spelling, and punctuation that were not noted in checking the note before signing.
[2021-01-16 14:56] LABS: Bedside Glucose 107 mg/dL (70-110)
--- NOTE | 2021-01-16 15:04 | NURSING ---
This RN reviewed SN charting
[2021-01-16 16:35] LABS: Bedside Glucose 103 mg/dL (70-110)
[2021-01-16 21:16] LABS: Bedside Glucose 164 mg/dL (70-110)
[2021-01-17] MEDS: oxyCODONE 5 MG Tablet PO ×3 (02:19→21:01)
[2021-01-17] MEDS: Acetaminophen 325 MG Tablet 650 MG PO ×3 (02:19→21:02)
[2021-01-17 02:23] LABS: Absolute Lymphocyte Count 1.21 X10^3/uL (0.83-4.51); Absolute Neutrophil Count 8.2 X10^3/uL (2.0-7.7); Basophil# 0.07 X10^3/uL; Basophil% 0.6 % (0-1); Eosinophil# 0.39 X10^3/uL; Eosinophils% 3.6 % (0-5); Hematocrit 37.9 % (40-54); Hemoglobin 11.8 g/dL (13.0-16.5); Lymphocyte # 1.21 X10^3/ul (0.83-4.51); Mean Corp Hgb Conc 31.1 g/dL (32-36); Mean Corpuscular Hgb 26.3 pg (27.0-32.0); Mean Corpuscular Volume 84.6 fL (80-94); Mean Platelet Vol. 11.7 fl (6.2-12.0); Monocyte# 0.87 X10^3/uL; Monocyte% 7.9 % (0-10); NRBC Flagged by Analyzer 0 % (0-5); Neutrophil % 74.7 % (47-70); Platelet Count 203 K/mm3 (150-450); RBC Distribution Width SD 49.6 fl (35.1-43.9); Red Blood Count 4.48 M/mm3 (4.6-6.2)
[2021-01-17 02:28] VITALS: BP 145/73; PULSE 79; RESP 18; TEMP 36.7; O2SAT 95
[2021-01-17 03:41] LABS: Anion Gap 6 (5-15); BUN 15 mg/dL (7-18); BUN/Creat Ratio 15.2 RATIO (10-20); Chloride 108 mmol/L (98-107); Creatinine, Serum 0.99 mg/dL (0.70-1.30); EST Glomerular Filtration Rate 85 mL/min (>60); Est Glom Filt Rate - Afr Amer 103 mL/min (>60); Estimated Creatinine Clearance 95.08 ml/min; Glucose 99 mg/dL (74-106); Potassium 3.8 mmol/L (3.5-5.1); Sodium Level 141 mmol/L (136-145)
--- NOTE | 2021-01-17 03:58 | PCM.RX.CS ---
Consult Pharmacy has been consulted to manage selected antiobiotic: Vancomycin Type of Consult: Follow-up Suspected Infection: Sepsis Prior Doses of Antibiotics Received/Current Regimen: Medications Vancomycin HCl 1,500 mg/ (Sodium Chloride) 530 mls @ 250 mls/hr IV Q8H BLAIR Last Admin: 01/17/21 02:19 Dose: 250 mls/hr Labs: Sodium 141 mmol/L (136-145) 01/17/21 02:15 Potassium 3.8 mmol/L (3.5-5.1) 01/17/21 02:15 Chloride 108 mmol/L (98-107) H 01/17/21 02:15 Carbon Dioxide 27.0 mmol/L (21.0-32.0) 01/17/21 02:15 Anion Gap 6 (5-15) 01/17/21 02:15 BUN 15 mg/dL (7-18) 01/17/21 02:15 Creatinine 0.99 mg/dL (0.70-1.30) 01/17/21 02:15 Est GFR (MDRD) Af Amer 103 mL/min (>60) 01/17/21 02:15 Est GFR (MDRD) Non-Af 85 mL/min (>60) 01/17/21 02:15 BUN/Creatinine Ratio 15.2 RATIO (10-20) 01/17/21 02:15 Glucose 99 mg/dL (74-106) 01/17/21 02:15 Vancomycin Trough 25.0 ug/mL (5.0-15.0) H 01/17/21 02:15 Microbiology: Microbiology 01/15/21 13:23 Bone - Right Foot Gram Stain - Final 01/15/21 13:23 Bone - Right Foot Wound Culture - Preliminary Beta streptococcus 01/15/21 13:20 Tissue - Aerobic & Anaerobic Swabs Gram Stain - Final 01/15/21 13:20 Tissue - Aerobic & Anaerobic Swabs Wound Culture - Preliminary Gram positive organism 01/14/21 07:00 Wound - Right Foot Gram Stain - Final 01/14/21 07:00 Wound - Right Foot Wound Culture - Preliminary Streptococcus group B Gram positive carlos 01/14/21 07:00 Wound - Right Foot Anaerobic Culture - Preliminary Checking for anaerobes, further studies to follow. 01/13/21 23:20 Blood Culture (Wb) - Left Hand Blood Culture - Final Streptococcus agalactiae (B) 01/13/21 23:15 Blood Culture (Wb) - Anticubital Left Blood Culture - Preliminary No growth in 48 hours. 01/13/21 15:00 Mucosa - Nose SARS-CoV-2 Antigen (Rapid) - Final Weight used for dosin kg Estimated Creatinine Clearance: 95 Goal Trough: 15-20 mcg/mL Pharmacy Plan for Drug Dosing: Vancomycin trough level of 25.0 was high. Current dosing will be halted. Another random level will be drawn 01/17/21 at 1430, and further dosing will be determined from that level. Pharmacy Service will continue to monitor and adjust dosing as required. Follow-Up Labs: Trough Vancomycin - random Labs to be done on [date and time ordered]: 01/17/21 @1430
[2021-01-17 06:40] LABS: Bedside Glucose 86 mg/dL (70-110)
[2021-01-17 09:09] VITALS: BP 141/79; PULSE 82; RESP 18; TEMP 36.7; O2SAT 97
[2021-01-17 09:14] VITALS: PULSE 80
[2021-01-17] MEDS: Lisinopril 20 MG Tablet PO (09:35)
--- NOTE | 2021-01-17 09:52 | CASEMGMT ---
Social Work Note SW received message from Cahni at [facility] stating they are not able to accept pt. Pt's third choice for SNF was [facility]. ALLISON placed a call to Myrtle at [facility] and provided referral. ALLISON Faxed referral to [facility]. Plan: SNF pending acceptance and pre-cert. Bella Morales PECAN SHELLER, AUTOMOTIVE SERVICE MANAGEMENT TEACHER
--- NOTE | 2021-01-17 11:00 | PN.HOSP_ITS ---
Subjective Subjective Patient seen and examined. He had no complaints today. Review of systems is otherwise negative. He has remained hemodynamically stable. He is awaiting placement. Objective Data Objective Data Vital Signs: Vital Signs Temp Pulse Resp BP Pulse Ox 98.0 F 80 18 141/79 H 97 01/17/21 09:09 01/17/21 09:14 01/17/21 09:09 01/17/21 09:09 01/17/21 09:09 Oxygen Delivery Method Room Air Weight: 330 lb 6.4 oz Body Mass Index (BMI) 46.0 Intake & Output: Intake and Output for Last 24 Hours 01/15/21 01/16/21 01/17/21 23:59 23:59 23:59 Intake Total 2945.00 / 3595.00 3617.5 / 3817.5 1046.5 / 1046.5 Output Total 1875 / 2575 4020 / 4020 900 / 900 Balance 1070.00 / 1020.00 -402.5 / -202.5 146.5 / 146.5 Lab / Micro Data Result Diagrams: 01/17/21 02:15 01/17/21 02:15 Labs: Laboratory Results - last 24 hr 01/16/21 01/16/21 01/16/21 11:39 16:18 20:32 WBC RBC Hgb Hct MCV MCH MCHC RDW Std Deviation RDW Coeff of Maria Fernanda Plt Count MPV Immature Gran % (Auto) Neut % (Auto) Lymph % (Auto) [place] % (Auto) Eos % (Auto) Baso % (Auto) Absolute Neuts (auto) Absolute Lymphs (auto) Nucleated RBC % Sodium Potassium Chloride Carbon Dioxide Anion Gap BUN Creatinine Estim Creat Clear Calc Est GFR (MDRD) Af Amer Est GFR (MDRD) Non-Af BUN/Creatinine Ratio Glucose Calcium Vancomycin Trough POC Glucose 107 103 164 H 01/17/21 01/17/21 01/17/21 02:15 02:15 02:15 WBC 11.0 RBC 4.48 L Hgb 11.8 L Hct 37.9 L MCV 84.6 MCH 26.3 L MCHC 31.1 L RDW Std Deviation 49.6 H RDW Coeff of Maria Fernanda 16.0 H Plt Count 203 MPV 11.7 Immature Gran % (Auto) 2.200 H Neut % (Auto) 74.7 H Lymph % (Auto) 11.[address] [place] % (Auto) 7.9 Eos % (Auto) 3.6 Baso % (Auto) 0.6 Absolute Neuts (auto) 8.2 H Absolute Lymphs (auto) 1.21 Nucleated RBC % 0 Sodium 141 Potassium 3.8 Chloride 108 H Carbon Dioxide 27.0 Anion Gap 6 BUN 15 Creatinine 0.99 Estim Creat Clear Calc 95.08 Est GFR (MDRD) Af Amer 103 Est GFR (MDRD) Non-Af 85 BUN/Creatinine Ratio 15.2 Glucose 99 Calcium 8.0 L Vancomycin Trough 25.0 H POC Glucose 01/17/21 06:35 WBC RBC Hgb Hct MCV MCH MCHC RDW Std Deviation RDW Coeff of Maria Fernanda Plt Count MPV Immature Gran % (Auto) Neut % (Auto) Lymph % (Auto) [place] % (Auto) Eos % (Auto) Baso % (Auto) Absolute Neuts (auto) Absolute Lymphs (auto) Nucleated RBC % Sodium Potassium Chloride Carbon Dioxide Anion Gap BUN Creatinine Estim Creat Clear Calc Est GFR (MDRD) Af Amer Est GFR (MDRD) Non-Af BUN/Creatinine Ratio Glucose Calcium Vancomycin Trough POC Glucose 86 Micro: Microbiology 01/15/21 13:23 Bone - Right Foot Gram Stain - Final 01/15/21 13:23 Bone - Right Foot Wound Culture - Preliminary Streptococcus agalactiae (B) Gram positive carlos 01/15/21 13:23 Bone - Right Foot Anaerobic Culture - Preliminary Checking for anaerobes, further studies to follow. 01/15/21 13:20 Tissue - Aerobic & Anaerobic Swabs Gram Stain - Final 01/15/21 13:20 Tissue - Aerobic & Anaerobic Swabs Wound Culture - Preliminary Staphylococcus aureus Streptococcus agalactiae (B) Gram positive carlos 01/15/21 13:20 Tissue - Aerobic & Anaerobic Swabs Anaerobic Culture - Preliminary Checking for anaerobes, further studies to follow. 01/14/21 07:00 Wound - Right Foot Gram Stain - Final 01/14/21 07:00 Wound - Right Foot Wound Culture - Preliminary Streptococcus agalactiae (B) Corynebacterium minutissimum 01/14/21 07:00 Wound - Right Foot Anaerobic Culture - Preliminary Checking for anaerobes, further studies to follow. 01/13/21 23:20 Blood Culture (Wb) - Left Hand Blood Culture - Final Streptococcus agalactiae (B) 01/13/21 23:15 Blood Culture (Wb) - Anticubital Left Blood Culture - Preliminary No growth in 48 hours. 01/13/21 15:00 Mucosa - Nose SARS-CoV-2 Antigen (Rapid) - Final Radiography Diagnostic Testing: Radiology Impression Foot X-Ray 01/15/21 14:10 IMPRESSION: 1. Increased soft tissue swelling of the plantar foot. Status post superficial/vacuum surgical drainage catheter. 2. Extensive bony derangement of the midfoot likely related to neuropathic arthropathy and/or previous injury. Possibility of osteomyelitis is also considered. Little interval change of osseous structures since prior study. Electronically Signed: Junaid De La Garza MD ([place]) at 17:12 EDT , Service support , Physical Exam Const alert, oriented x3 and no apparent distress Exam Limitations: no limitations HEENT head/scalp atraumatic and moist oral mucous membranes Head and Scalp: normocephalic Eyes PERRL, EOMs intact bilaterally and conjunctivae normal Neck no lymphadenopathy Resp normal respiratory effort, no retractions, no use of accessory muscles and clear to auscultation bilaterally Cardio regular rate, regular rhythm, S1 normal heart sound, S2 normal heart sound and no murmurs GI normal to inspection, nondistended, normoactive bowel sounds, soft to palpation, non-tender and non-distended Extremity no clubbing, cyanosis or edema Extremity Narrative: right foot wrapped in bandage; wound vac in place Skin Skin Narrative: right foot wrapped in bandage; bandage soaked with breakthrough bleeding Neuro oriented x3 Sensorium / Orientation: awake and alert Psych affect normal Assessment & Plan Assessment/Plan (1) Sepsis: QUALIFIERS: Sepsis type: sepsis due to unspecified organism Sepsis acute organ dysfunction status: without acute organ dysfunction Qualified Code(s): A41.9 - Sepsis, unspecified organism (2) Osteomyelitis: QUALIFIERS: Osteomyelitis type: other acute Osteomyelitis location: foot Laterality: right Qualified Code(s): M86.171 - Other acute osteomyelitis, right ankle and foot PLAN: #Sepsis due to acute osteomyelitis * on IV vancomycin and zosyn * s/p debridement of the right foot ulcer by podiatry. today is POD 2. Has wound vac in place * MRI of the right foot showed evidence of osteomyelitis of the plantar aspect of the foot with soft tissue abscess at the plantar aspect and bone edema of the tarsal bones of the midfoot. * blood cultures gowing Strep Agalactiae. * wound cultures growing Strep agalactiae * podiatry on board * PT/OT on board * ID consulted; await rec's/ Patient may need senior care antibiotics * #Type 2 diabetes mellitus * Home meds of Metformin and sitagliptin on hold. * On insulin sliding scale. Accu-Cheks AC at bedtime. * #History of DVT: Eliquis is currently on hold in light of possible surgical intervention. Will resume when OK with surgery. #Super morbid obesity: BMI is 45.8. Complicates acute care, recovery and expected prognosis. DVT prophylaxis: SCDs. Resume eliquis when Ok with surgery Disposition: awaiting placement Charges/Coding Visit Charges Inpatient E&M: 19621 Subs Hosp L2
[2021-01-17 11:16] LABS: Bedside Glucose 100 mg/dL (70-110)
--- NOTE | 2021-01-17 12:36 | CON.PCM.ID_ITS ---
Assessment & Plan Assessment/Plan (1) Osteomyelitis of toe of right foot: PLAN: Based on the microbiology data we will treat with Unasyn 3 g IV every 6 hours for a total of 6 weeks through February 26. I did order a PICC line for IV access. I also ordered weekly blood work including a CBC, BMP, ESR while on Unasyn. HPI Consult Data Date of Consult: 01/17/21 HPI Narrative HPI Narrative: EUSEBIA HECTOR, is a 50 M who presents with progression of his right foot ulcer and concern of a complicated diabetic foot infection/osteomyelitis. During this hospitalization patient underwent diagnostic MRI of the right foot that showed evidence of deep infection including osteomyelitis. On Wednesday patient was taken to the operating room for debridement of the right foot and placement of wound VAC. In talking with the patient he denies any fevers or chills. No significant constitutional symptoms. He has had previous partial amputation of his right foot, he states t hat he has had a chronic foot ulcer for least 6 months. Currently on vancomycin plus Zosyn. Operative cultures as well as previous cultures of his right foot reviewed. Patient denies any gastrointestinal distress no cardiopulmonary symptoms. He does have underlying diabetes mellitus complicated by peripheral neuropathy and Charcot foot on the right foot. [facility] Medical History Amputation of toe of left foot Cellulitis Charcot arthropathy of midfoot DVT (deep venous thrombosis) History of esophageal disorder Hypertension KRYSTAL (obstructive sleep apnea) Osteoarthritis Type 2 diabetes mellitus Venous insufficiency Home Medications metformin 1,000 mg PO BID 01/23/20 [History Last Taken 01/13/21] acetaminophen 650 mg PO Q6H PRN PRN tab 07/23/20 [Rx Last Taken Unknown] lisinopril 20 mg PO DAILY 10/29/20 [History Last Taken 01/13/21] sitagliptin 100 mg PO DAILY 10/29/20 [History Last Taken 01/13/21] apixaban 5 mg PO BID #60 tab.ds.pk 10/31/20 [Rx Last Taken 01/13/21 16:00] Handicap Placard #1 ea 12/05/20 [Rx Last Taken Unknown] dulaglutide [Trulicity] 3 mg SUBCUT TU 01/13/21 [History Last Taken 01/07/21] Allergy/AdvReac Type Severity Reaction Status Date / Time ketorolac [From Toradol] AdvReac Upset Verified 01/13/21 22:15 Stomach NSAIDS (Non-Steroidal AdvReac Upset Verified 01/13/21 22:15 Anti-Inflamma Stomach Family History Mother Hypertension Diabetes Heart disease Sister Hypertension Diabetes Crohns disease Brother Diabetes Surgical History History of cholecystectomy History of esophageal surgery Status post amputation of right foot through metatarsal bone Social History Smoking Status: Current every day smoker tobacco type: cigarettes alcohol intake: never substance use type: does not use what type of physical activity do you participate in: walking frequency: daily ROS ROS Narrative Noncontributory Physical Exam Narrative Alert responsive does not appear toxic lungs are clear heart exam S1-S2 abdomen is obese but soft. Right foot postop dressings in place along with a wound VAC. Left foot looks benign Lab / Micro Data Result Diagrams: 01/17/21 02:15 01/17/21 02:15 Labs: Laboratory Results - last 24 hr 01/16/21 01/16/21 01/16/21 11:39 16:18 20:32 WBC RBC Hgb Hct MCV MCH MCHC RDW Std Deviation RDW Coeff of Maria Fernanda Plt Count MPV Immature Gran % (Auto) Neut % (Auto) Lymph % (Auto) [place] % (Auto) Eos % (Auto) Baso % (Auto) Absolute Neuts (auto) Absolute Lymphs (auto) Nucleated RBC % Sodium Potassium Chloride Carbon Dioxide Anion Gap BUN Creatinine Estim Creat Clear Calc Est GFR (MDRD) Af Amer Est GFR (MDRD) Non-Af BUN/Creatinine Ratio Glucose Calcium Vancomycin Trough POC Glucose 107 103 164 H 01/17/21 01/17/21 01/17/21 02:15 02:15 02:15 WBC 11.0 RBC 4.48 L Hgb 11.8 L Hct 37.9 L MCV 84.6 MCH 26.3 L MCHC 31.1 L RDW Std Deviation 49.6 H RDW Coeff of Maria Fernanda 16.0 H Plt Count 203 MPV 11.7 Immature Gran % (Auto) 2.200 H Neut % (Auto) 74.7 H Lymph % (Auto) 11.0 L [place] % (Auto) 7.9 Eos % (Auto) 3.6 Baso % (Auto) 0.6 Absolute Neuts (auto) 8.2 H Absolute Lymphs (auto) 1.21 Nucleated RBC % 0 Sodium 141 Potassium 3.8 Chloride 108 H Carbon Dioxide 27.0 Anion Gap 6 BUN 15 Creatinine 0.99 Estim Creat Clear Calc 95.08 Est GFR (MDRD) Af Amer 103 Est GFR (MDRD) Non-Af 85 BUN/Creatinine Ratio 15.2 Glucose 99 Calcium 8.0 L Vancomycin Trough 25.0 H POC Glucose 01/17/21 01/17/21 06:35 11:01 WBC RBC Hgb Hct MCV MCH MCHC RDW Std Deviation RDW Coeff of Maria Fernanda Plt Count MPV Immature Gran % (Auto) Neut % (Auto) Lymph % (Auto) [place] % (Auto) Eos % (Auto) Baso % (Auto) Absolute Neuts (auto) Absolute Lymphs (auto) Nucleated RBC % Sodium Potassium Chloride Carbon Dioxide Anion Gap BUN Creatinine Estim Creat Clear Calc Est GFR (MDRD) Af Amer Est GFR (MDRD) Non-Af BUN/Creatinine Ratio Glucose Calcium Vancomycin Trough POC Glucose 86 100 Micro: Microbiology 01/15/21 13:23 Gram Stain - Final Bone - Right Foot Wound Culture - Preliminary Streptococcus agalactiae (B) Gram positive carlos Anaerobic Culture - Preliminary Checking for anaerobes, further studies to follow. 01/15/21 13:20 Gram Stain - Final Tissue - Aerobic & Anaerobic Swabs Wound Culture - Preliminary Staphylococcus aureus Streptococcus agalactiae (B) Gram positive carlos Anaerobic Culture - Preliminary Checking for anaerobes, further studies to follow. 01/14/21 07:00 Gram Stain - Final Wound - Right Foot Wound Culture - Preliminary Streptococcus agalactiae (B) Corynebacterium minutissimum Anaerobic Culture - Preliminary Checking for anaerobes, further studies to follow. Radiology Impression Foot X-Ray 01/15/21 14:10 IMPRESSION: 1. Increased soft tissue swelling of the plantar foot. Status post superficial/vacuum surgical drainage catheter. 2. Extensive bony derangement of the midfoot likely related to neuropathic arthropathy and/or previous injury. Possibility of osteomyelitis is also considered. Little interval change of osseous structures since prior study. Electronically Signed: Junaid De La Garza MD ([place]) at 17:12 EDT , Service support ,
--- NOTE | 2021-01-17 13:03 | PN_ITS ---
Subjective Subjective Patient seen and examined resting comfortably. He is status post I&D of his right foot with widespread debridement. He relates his pain is well controlled with medication. He has a wound vac in place. I was contacted earlier today about strikethrough after he likely walked on while using the rest room. Patient denies any new pedal complaints. Patient denies any nausea, fever, chills, chest pain, shortness of breath, cough, diarrhea, vomiting. He was seen by infectious disease specialist, Dr. Marie, this afternoon as well. [facility] facility placement is pending. Objective Data Objective Data Vital Signs: Vital Signs Temp Pulse Resp BP Pulse Ox 98.0 F 80 18 141/79 H 97 01/17/21 09:09 01/17/21 09:14 01/17/21 09:09 01/17/21 09:09 01/17/21 09:09 Oxygen Delivery Method Room Air Weight: 149.867 kg Body Mass Index (BMI) 46.0 Intake & Output: Intake and Output for Last 24 Hours 01/15/21 01/16/21 01/17/21 23:59 23:59 23:59 Intake Total 2945.00 / 3595.00 3617.5 / 3817.5 1096.5 / 1096.5 Output Total 1875 / 2575 4020 / 4020 900 / 900 Balance 1070.00 / 1020.00 -402.5 / -202.5 196.5 / 196.5 Lab / Micro Data Result Diagrams: 01/17/21 02:15 01/17/21 02:15 Labs: Laboratory Results - last 24 hr 01/16/21 01/16/21 01/16/21 11:39 16:18 20:32 WBC RBC Hgb Hct MCV MCH MCHC RDW Std Deviation RDW Coeff of Maria Fernanda Plt Count MPV Immature Gran % (Auto) Neut % (Auto) Lymph % (Auto) [place] % (Auto) Eos % (Auto) Baso % (Auto) Absolute Neuts (auto) Absolute Lymphs (auto) Nucleated RBC % Sodium Potassium Chloride Carbon Dioxide Anion Gap BUN Creatinine Estim Creat Clear Calc Est GFR (MDRD) Af Amer Est GFR (MDRD) Non-Af BUN/Creatinine Ratio Glucose Calcium Vancomycin Trough POC Glucose 107 103 164 H 01/17/21 01/17/21 01/17/21 02:15 02:15 02:15 WBC 11.0 RBC 4.48 L Hgb 11.8 L Hct 37.9 L MCV 84.6 MCH 26.3 L MCHC 31.1 L RDW Std Deviation 49.6 H RDW Coeff of Maria Fernanda 16.0 H Plt Count 203 MPV 11.7 Immature Gran % (Auto) 2.200 H Neut % (Auto) 74.7 H Lymph % (Auto) 11.0 L [place] % (Auto) 7.9 Eos % (Auto) 3.6 Baso % (Auto) 0.6 Absolute Neuts (auto) 8.2 H Absolute Lymphs (auto) 1.21 Nucleated RBC % 0 Sodium 141 Potassium 3.8 Chloride 108 H Carbon Dioxide 27.0 Anion Gap 6 BUN 15 Creatinine 0.99 Estim Creat Clear Calc 95.08 Est GFR (MDRD) Af Amer 103 Est GFR (MDRD) Non-Af 85 BUN/Creatinine Ratio 15.2 Glucose 99 Calcium 8.0 L Vancomycin Trough 25.0 H POC Glucose 01/17/21 01/17/21 06:35 11:01 WBC RBC Hgb Hct MCV MCH MCHC RDW Std Deviation RDW Coeff of Maria Fernanda Plt Count MPV Immature Gran % (Auto) Neut % (Auto) Lymph % (Auto) [place] % (Auto) Eos % (Auto) Baso % (Auto) Absolute Neuts (auto) Absolute Lymphs (auto) Nucleated RBC % Sodium Potassium Chloride Carbon Dioxide Anion Gap BUN Creatinine Estim Creat Clear Calc Est GFR (MDRD) Af Amer Est GFR (MDRD) Non-Af BUN/Creatinine Ratio Glucose Calcium Vancomycin Trough POC Glucose 86 100 Micro: Microbiology 01/15/21 13:23 Bone - Right Foot Gram Stain - Final 01/15/21 13:23 Bone - Right Foot Wound Culture - Preliminary Streptococcus agalactiae (B) Gram positive carlos 01/15/21 13:23 Bone - Right Foot Anaerobic Culture - Preliminary Checking for anaerobes, further studies to follow. 01/15/21 13:20 Tissue - Aerobic & Anaerobic Swabs Gram Stain - Final 01/15/21 13:20 Tissue - Aerobic & Anaerobic Swabs Wound Culture - Preliminary Staphylococcus aureus Streptococcus agalactiae (B) Gram positive carlos 01/15/21 13:20 Tissue - Aerobic & Anaerobic Swabs Anaerobic Culture - Preliminary Checking for anaerobes, further studies to follow. 01/14/21 07:00 Wound - Right Foot Gram Stain - Final 01/14/21 07:00 Wound - Right Foot Wound Culture - Preliminary Streptococcus agalactiae (B) Corynebacterium minutissimum 01/14/21 07:00 Wound - Right Foot Anaerobic Culture - Preliminary Checking for anaerobes, further studies to follow. 01/13/21 23:20 Blood Culture (Wb) - Left Hand Blood Culture - Final Streptococcus agalactiae (B) 01/13/21 23:15 Blood Culture (Wb) - Anticubital Left Blood Culture - Preliminary No growth in 48 hours. 01/13/21 15:00 Mucosa - Nose SARS-CoV-2 Antigen (Rapid) - Final Radiography Diagnostic Testing: Radiology Impression Foot X-Ray 01/15/21 14:10 IMPRESSION: 1. Increased soft tissue swelling of the plantar foot. Status post superficial/vacuum surgical drainage catheter. 2. Extensive bony derangement of the midfoot likely related to neuropathic arthropathy and/or previous injury. Possibility of osteomyelitis is also considered. Little interval change of osseous structures since prior study. Electronically Signed: Junaid De La Garza MD ([place]) at 17:12 EDT , Service support , Physical Exam Const alert and no apparent distress General Appearance: cooperative and comfortable Resp normal respiratory effort Effort and Inspection: able to speak in complete sentences Extremity normal capillary refill and no calf tenderness General Extremity: edema right lower extremity (foot especially) moderate, no tenderness to palpation of joints or extremities and other findings Other Details: Capillary refill time less than 3 seconds noted to digits ; Negative for clubbing or cyanosis Skin General Skin Exam: atrophy and dry skin; Negative for ecchymosis, erythema, eschar, pallor or dermatitis Rashes: no rashes Wounds: wounds noted other granular base tunnel from plantar midfoot to dorsal lateral foot. no active hematogenous drainage noted upon vac removal. serosangenous drainage. no purulence on expression. no adjacent fluctuance or bogginess. 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: (2) Tobacco abuse: (3) Osteomyelitis: QUALIFIERS: Laterality: right Osteomyelitis location: foot Osteomyelitis type: other acute Qualified Code(s): M86.171 - Other acute osteomyelitis, right ankle and foot (4) Type 2 diabetes mellitus: QUALIFIERS: Diabetes mellitus complication detail: with neuropathic arthropathy Diabetes mellitus complication status: with diabetic arthropathy Diabetes mellitus salvage determiner insulin use: without salvage determiner use Qualified Code(s): E11.610 - Type 2 diabetes mellitus with diabetic neuropathic arthropathy (5) Charcot arthropathy of midfoot: (6) Obese: QUALIFIERS: Body mass index: BMI 40.0-44.9 Obesity classification: adult class 3 (BMI >= 40) Obesity type: due to excess calories Serious obesity comorbidity presence: with serious comorbidity Qualified Code(s): E66.01 - Morbid (severe) obesity due to excess calories; Z68.41 - Body mass index [BMI]40.0-44.9, adult (7) History of amputation of foot: (8) Right foot pain: (9) Bilateral lower extremity edema: (10) Venous insufficiency: PLAN: I reviewed and discussed his case. VAC removed and wound site erickson luated. Patient is status post I&D with bone debridement of right foot 01/15/[address] Otoole. Patient noted to have Charcot foot to the right foot. He reports no issues after surgery. Patient to remain nonweightbearing to the right lower extremity. Will work with pt for nwb status and see if walker versus knee roller is appropriate. Betadine wet to dry applied. Will consider vac placement again this weekend or early next week. Initial wound cultures demonstrate group B streptococcus and gram-positive rods from the foot wound. There is also noted to be strep agalactiae noted in his 1 blood culture. OR cultures of the cuboid bone is positive for beta Streptococcus. MRI was reviewed showing both Charcot changes and concern for osteomyelitis of the plantar cuboid area with ulcerations. WBC decreased to 11. ID recs appreciated.PICC line ordered. Unasyn 3 g q 8 hrs with stop date 02/26/21 and serial labs recommended. He is at risk for further amputation of foot or leg. Patient noted to have a [place] boot made for him and is ready to be picked up. This probably gives patient the best chance to prevent future ulcerations once his current ulcerations have healed.I advised him to hold on picking this up at this acute management time. Medical management per hospitalist is appreciated. Hemoglobin A1C noted at 5.9 %. [place] for nutritional supplementation is recommended. Podiatry will continue to follow while in house. To follow up with Dr. Otoole at wound care center at time of discharge. SNF placement pending; social work notes were reviewed. Discussed case with nursing staff. I answered all of his questions. Please contact if any questions or concerns. This note was generated with [employer] dictation software. It may contain incorrect words, spelling, and punctuation that were not noted in checking the note before signing.
[2021-01-17 13:52] VITALS: O2SAT 91
--- NOTE | 2021-01-17 14:00 | CASEMGMT ---
Social Work Note ALLISON received message from Myrtle at [facility] stating they are able to accept pt. SW in to speak with pt. SW introduced self and role at [facility]. SW updated pt that this worker did send referrals to both [facility] and [facility] and both are not able to accept pt but [facility] is able to accept pt. At first pt stated that he wasn't going to go to [facility]. SW informed pt that [facility] was his third choice. Pt states he knows he gave [facility] has his third choice. But then states he is agreeable to [facility]. ALLISON explained pre-cert process. Pt states understanding. ALLISON Faxed IV antibiotic script to [facility], Original on pt's chart. ALLISON placed a call to Myrtle at [facility] and asked her to submit for pre-cert. Myrtle to submit for pre-cert. Plan: [facility] pending pre-cert Bella Morales PNP, CELL TECHNICIAN
[2021-01-17 14:04] VITALS: BP 152/85; PULSE 76; PULSE 80; RESP 16; TEMP 36.8; O2SAT 94
[2021-01-17 15:30] LABS: Vancomycin, Random Level 20.4 ug/mL (0.0-15.0)
--- NOTE | 2021-01-17 15:59 | CASEMGMT ---
Social Work Note ALLISON placed a call to Myrtle at [facility], Myrtle states it is not likely she will get pre-cert over the weekend. Myrtle states [facility] will need a COVID test on day of discharge. ALLISON completed convalescent 7000 in [place]. ALLISON placed Green sheet, transport forms, COVID tool, and convalescent 7000 on pt's chart in the event pre-cert is obtained. Plan: [facility] pending pre-cert. Pre-cert must be obtained before can discharge. Pt will need COVID test on day of discharge. Bella Morales JUDICIAL ADMINISTRATIVE ASSISTANT, ESTIMATOR PRINTING
[2021-01-17] MEDS: 0.9% Saline Lock 10 ML Syringe IV (17:47)
[2021-01-17 17:56] LABS: Bedside Glucose 121 mg/dL (70-110)
[2021-01-17 20:43] VITALS: BP 143/79; PULSE 71; RESP 16; TEMP 36.9; O2SAT 94
[2021-01-17 22:00] LABS: Bedside Glucose 121 mg/dL (70-110)
[2021-01-18 03:12] VITALS: BP 147/86; PULSE 76; RESP 18; TEMP 36.8; O2SAT 93
[2021-01-18] MEDS: oxyCODONE 5 MG Tablet PO ×3 (03:17→19:15)
[2021-01-18] MEDS: Acetaminophen 325 MG Tablet 650 MG PO ×2 (03:18→12:05)
[2021-01-18 05:58] LABS: Absolute Lymphocyte Count 1.08 X10^3/uL (0.83-4.51); Absolute Neutrophil Count 6.8 X10^3/uL (2.0-7.7); Basophil# 0.05 X10^3/uL; Basophil% 0.5 % (0-1); Eosinophils% 4.3 % (0-5); Hematocrit 36.6 % (40-54); Hemoglobin 11.4 g/dL (13.0-16.5); Lymphocyte # 1.08 X10^3/ul (0.83-4.51); Lymphocyte % 11.6 % (19-41); Mean Corp Hgb Conc 31.1 g/dL (32-36); Mean Corpuscular Hgb 26.3 pg (27.0-32.0); Mean Corpuscular Volume 84.5 fL (80-94); Monocyte# 0.72 X10^3/uL; Monocyte% 7.7 % (0-10); NRBC Flagged by Analyzer 0 % (0-5); Neutrophil # 6.84 X10^3/uL (2.7-7.7); Neutrophil % 73.4 % (47-70); Platelet Count 212 K/mm3 (150-450); RBC Distribution Width CV 15.7 % (11.6-14.6); RBC Distribution Width SD 47.9 fl (35.1-43.9); Red Blood Count 4.33 M/mm3 (4.6-6.2); White Blood Count 9.3 K/mm3 (4.4-11.0)
[2021-01-18 06:31] LABS: Bedside Glucose 97 mg/dL (70-110)
[2021-01-18 06:40] LABS: Anion Gap 3 (5-15); BUN 15 mg/dL (7-18); BUN/Creat Ratio 14.3 RATIO (10-20); Calcium,Total 8.6 mg/dL (8.5-10.1); Chloride 108 mmol/L (98-107); Creatinine, Serum 1.05 mg/dL (0.70-1.30); EST Glomerular Filtration Rate 79 mL/min (>60); Est Glom Filt Rate - Afr Amer 96 mL/min (>60); Estimated Creatinine Clearance 89.64 ml/min; Glucose 96 mg/dL (74-106); Potassium 3.9 mmol/L (3.5-5.1); Sodium Level 142 mmol/L (136-145)
[2021-01-18 07:18] VITALS: O2SAT 93
--- NOTE | 2021-01-18 07:48 | PN.HOSP_ITS ---
Subjective Subjective Patient seen and examined. He had an uneventful night and has no complaints. Pain is well controlled. Review of systems otherwise negative. He is awaiting placement. Objective Data Objective Data Vital Signs: Vital Signs Temp Pulse Resp BP Pulse Ox 98.2 F 76 18 147/86 H 93 01/18/21 03:12 01/18/21 03:12 01/18/21 03:12 01/18/21 03:12 01/18/21 07:18 Oxygen Delivery Method Room Air Weight: 330 lb 6.4 oz Body Mass Index (BMI) 46.0 Intake & Output: Intake and Output for Last 24 Hours 01/16/21 01/17/21 01/18/21 23:59 23:59 23:59 Intake Total 3617.5 / 3817.5 1663.25 / 1663.25 679.25 / 679.25 Output Total 4020 / 4020 2350 / 2350 1325 / 1325 Balance -402.5 / -202.5 -686.75 / -686.75 -645.75 / -645.75 Lab / Micro Data Result Diagrams: 01/18/21 05:20 01/18/21 05:20 Labs: Laboratory Results - last 24 hr 01/17/21 01/17/21 01/17/21 11:01 14:30 16:32 WBC RBC Hgb Hct MCV MCH MCHC RDW Std Deviation RDW Coeff of Maria Fernanda Plt Count MPV Immature Gran % (Auto) Neut % (Auto) Lymph % (Auto) [place] % (Auto) Eos % (Auto) Baso % (Auto) Absolute Neuts (auto) Absolute Lymphs (auto) Nucleated RBC % Sodium Potassium Chloride Carbon Dioxide Anion Gap BUN Creatinine Estim Creat Clear Calc Est GFR (MDRD) Af Amer Est GFR (MDRD) Non-Af BUN/Creatinine Ratio Glucose Calcium Random Vancomycin 20.4 H POC Glucose 100 121 H 01/17/21 01/18/21 01/18/21 21:19 05:20 05:20 WBC 9.3 RBC 4.33 L Hgb 11.4 L Hct 36.6 L MCV 84.5 MCH 26.3 L MCHC 31.1 L RDW Std Deviation 47.9 H RDW Coeff of Maria Fernanda 15.7 H Plt Count 212 MPV 12.0 Immature Gran % (Auto) 2.500 H Neut % (Auto) 73.4 H Lymph % (Auto) 11.6 L [place] % (Auto) 7.7 Eos % (Auto) 4.3 Baso % (Auto) 0.5 Absolute Neuts (auto) 6.8 Absolute Lymphs (auto) 1.08 Nucleated RBC % 0 Sodium 142 Potassium 3.9 Chloride 108 H Carbon Dioxide 31.0 Anion Gap 3 L BUN 15 Creatinine 1.05 Estim Creat Clear Calc 89.64 Est GFR (MDRD) Af Amer 96 Est GFR (MDRD) Non-Af 79 BUN/Creatinine Ratio 14.3 Glucose 96 Calcium 8.6 Random Vancomycin POC Glucose 121 H 01/18/21 06:17 WBC RBC Hgb Hct MCV MCH MCHC RDW Std Deviation RDW Coeff of Maria Fernanda Plt Count MPV Immature Gran % (Auto) Neut % (Auto) Lymph % (Auto) [place] % (Auto) Eos % (Auto) Baso % (Auto) Absolute Neuts (auto) Absolute Lymphs (auto) Nucleated RBC % Sodium Potassium Chloride Carbon Dioxide Anion Gap BUN Creatinine Estim Creat Clear Calc Est GFR (MDRD) Af Amer Est GFR (MDRD) Non-Af BUN/Creatinine Ratio Glucose Calcium Random Vancomycin POC Glucose 97 Micro: Microbiology 01/15/21 13:23 Bone - Right Foot Gram Stain - Final 01/15/21 13:23 Bone - Right Foot Wound Culture - Preliminary Streptococcus agalactiae (B) Gram positive carlos 01/15/21 13:23 Bone - Right Foot Anaerobic Culture - Preliminary Checking for anaerobes, further studies to follow. 01/15/21 13:20 Tissue - Aerobic & Anaerobic Swabs Gram Stain - Final 01/15/21 13:20 Tissue - Aerobic & Anaerobic Swabs Wound Culture - Preliminary Staphylococcus aureus Streptococcus agalactiae (B) Gram positive carlos 01/15/21 13:20 Tissue - Aerobic & Anaerobic Swabs Anaerobic Culture - Preliminary Checking for anaerobes, further studies to follow. 01/14/21 07:00 Wound - Right Foot Gram Stain - Final 01/14/21 07:00 Wound - Right Foot Wound Culture - Preliminary Streptococcus agalactiae (B) Corynebacterium minutissimum 01/14/21 07:00 Wound - Right Foot Anaerobic Culture - Preliminary Checking for anaerobes, further studies to follow. 01/13/21 23:20 Blood Culture (Wb) - Left Hand Blood Culture - Final Streptococcus agalactiae (B) 01/13/21 23:15 Blood Culture (Wb) - Anticubital Left Blood Culture - Preliminary No growth in 48 hours. 01/13/21 15:00 Mucosa - Nose SARS-CoV-2 Antigen (Rapid) - Final Physical Exam Const alert, oriented x3 and no apparent distress Exam Limitations: no limitations HEENT head/scalp atraumatic and moist oral mucous membranes Head and Scalp: normocephalic Eyes PERRL, EOMs intact bilaterally and conjunctivae normal Neck no lymphadenopathy Resp normal respiratory effort, no retractions, no use of accessory muscles and clear to auscultation bilaterally Cardio regular rate, regular rhythm, S1 normal heart sound, S2 normal heart sound and no murmurs GI normal to inspection, nondistended, normoactive bowel sounds, soft to palpation, non-tender and non-distended Extremity no clubbing, cyanosis or edema Extremity Narrative: right foot wrapped in bandage; wound vac in place Skin Skin Narrative: right foot wrapped in bandage Neuro oriented x3 Sensorium / Orientation: awake and alert Psych affect normal Assessment & Plan Assessment/Plan (1) Sepsis: QUALIFIERS: Sepsis acute organ dysfunction status: without acute organ dysfunction Sepsis type: sepsis due to unspecified organism Qualified Code(s): A41.9 - Sepsis, unspecified organism (2) Osteomyelitis: QUALIFIERS: Laterality: right Osteomyelitis location: foot Osteomyelitis type: other acute Qualified Code(s): M86.171 - Other acute osteomyelitis, right ankle and foot PLAN: #Sepsis due to acute osteomyelitis * vanc and zosyn switched to IV unasyn per ID * s/p debridement of the right foot ulcer by podiatry. today is POD 3. * MRI of the right foot showed evidence of osteomyelitis of the plantar aspect of the foot with soft tissue abscess at the plantar aspect and bone edema of the tarsal bones of the midfoot. * blood and wound cultures growing Strep Agalactiae. * podiatry on board * PT/OT on board * ID on board, recommends IV unasyn for 6 weeks. PICC line ordered. * #Type 2 diabetes mellitus * Home meds of Metformin and sitagliptin on hold. * On insulin sliding scale. Accu-Cheks AC at bedtime. * #History of DVT:will resume eliquis today. #Super morbid obesity: BMI is 45.8. Complicates acute care, recovery and expected prognosis. DVT prophylaxis: SCDs. Resume eliquis today, ok with podiatry Disposition: awaiting placement Charges/Coding Visit Charges Inpatient E&M: 84073 Subs Hosp L2
[2021-01-18 08:11] VITALS: BP 137/81; PULSE 77; RESP 16; TEMP 36.6; O2SAT 96
[2021-01-18] MEDS: Lisinopril 20 MG Tablet PO (08:15)
[2021-01-18] MEDS: Morphine 4 MG/ML Syringe IV (08:23)
[2021-01-18] MEDS: 0.9% Saline Lock 10 ML Syringe IV ×2 (08:23→20:34)
--- NOTE | 2021-01-18 09:32 | PCM.PROGNOTE ---
Subjective Subjective This patient seen and examined resting comfortably. He is status post I&D of his right foot with widespread debridement. He relates his pain is well controlled with medication. He denies foot pain. He denies any nausea, fever, chills, chest pain, shortness of breath, cough, diarrhea, vomiting. prison facility placement is pending. Objective Data Objective Data Vital Signs: Vital Signs Temp Pulse Resp BP Pulse Ox 97.9 F 77 16 137/81 H 96 01/18/21 08:11 01/18/21 08:11 01/18/21 08:11 01/18/21 08:11 01/18/21 08:11 Oxygen Delivery Method Room Air Weight: 149.867 kg Body Mass Index (BMI) 46.0 Intake & Output: Intake and Output for Last 24 Hours 01/16/21 01/17/21 01/18/21 23:59 23:59 23:59 Intake Total 3617.5 / 3817.5 1663.25 / 1663.25 791.25 / 791.25 Output Total 4020 / 4020 2350 / 2350 1325 / 1325 Balance -402.5 / -202.5 -686.75 / -686.75 -533.75 / -533.75 Lab / Micro Data Result Diagrams: 01/18/21 05:20 01/18/21 05:20 Labs: Laboratory Results - last 24 hr 01/17/21 01/17/21 01/17/21 11:01 14:30 16:32 WBC RBC Hgb Hct MCV MCH MCHC RDW Std Deviation RDW Coeff of Maria Fernanda Plt Count MPV Immature Gran % (Auto) Neut % (Auto) Lymph % (Auto) [place] % (Auto) Eos % (Auto) Baso % (Auto) Absolute Neuts (auto) Absolute Lymphs (auto) Nucleated RBC % Sodium Potassium Chloride Carbon Dioxide Anion Gap BUN Creatinine Estim Creat Clear Calc Est GFR (MDRD) Af Amer Est GFR (MDRD) Non-Af BUN/Creatinine Ratio Glucose Calcium Random Vancomycin 20.4 H POC Glucose 100 121 H 01/17/21 01/18/21 01/18/21 21:19 05:20 05:20 WBC 9.3 RBC 4.33 L Hgb 11.4 L Hct 36.6 L MCV 84.5 MCH 26.3 L MCHC 31.1 L RDW Std Deviation 47.9 H RDW Coeff of Maria Fernanda 15.7 H Plt Count 212 MPV 12.0 Immature Gran % (Auto) 2.500 H Neut % (Auto) 73.4 H Lymph % (Auto) 11.6 L [place] % (Auto) 7.7 Eos % (Auto) 4.3 Baso % (Auto) 0.5 Absolute Neuts (auto) 6.8 Absolute Lymphs (auto) 1.08 Nucleated RBC % 0 Sodium 142 Potassium 3.9 Chloride 108 H Carbon Dioxide 31.0 Anion Gap 3 L BUN 15 Creatinine 1.05 Estim Creat Clear Calc 89.64 Est GFR (MDRD) Af Amer 96 Est GFR (MDRD) Non-Af 79 BUN/Creatinine Ratio 14.3 Glucose 96 Calcium 8.6 Random Vancomycin POC Glucose 121 H 01/18/21 06:17 WBC RBC Hgb Hct MCV MCH MCHC RDW Std Deviation RDW Coeff of Maria Fernanda Plt Count MPV Immature Gran % (Auto) Neut % (Auto) Lymph % (Auto) [place] % (Auto) Eos % (Auto) Baso % (Auto) Absolute Neuts (auto) Absolute Lymphs (auto) Nucleated RBC % Sodium Potassium Chloride Carbon Dioxide Anion Gap BUN Creatinine Estim Creat Clear Calc Est GFR (MDRD) Af Amer Est GFR (MDRD) Non-Af BUN/Creatinine Ratio Glucose Calcium Random Vancomycin POC Glucose 97 Micro: Microbiology 01/15/21 13:23 Bone - Right Foot Gram Stain - Final 01/15/21 13:23 Bone - Right Foot Wound Culture - Final Streptococcus agalactiae (B) Corynebacterium minutissimum 01/15/21 13:23 Bone - Right Foot Anaerobic Culture - Preliminary Checking for anaerobes, further studies to follow. 01/15/21 13:20 Tissue - Aerobic & Anaerobic Swabs Gram Stain - Final 01/15/21 13:20 Tissue - Aerobic & Anaerobic Swabs Wound Culture - Final Meth. resistant Staph. aureus Streptococcus agalactiae (B) Corynebacterium minutissimum 01/15/21 13:20 Tissue - Aerobic & Anaerobic Swabs Anaerobic Culture - Preliminary Checking for anaerobes, further studies to follow. 01/14/21 07:00 Wound - Right Foot Gram Stain - Final 01/14/21 07:00 Wound - Right Foot Wound Culture - Preliminary Streptococcus agalactiae (B) Corynebacterium minutissimum 01/14/21 07:00 Wound - Right Foot Anaerobic Culture - Preliminary Checking for anaerobes, further studies to follow. 01/13/21 23:20 Blood Culture (Wb) - Left Hand Blood Culture - Final Streptococcus agalactiae (B) 01/13/21 23:15 Blood Culture (Wb) - Anticubital Left Blood Culture - Preliminary No growth in 48 hours. 01/13/21 15:00 Mucosa - Nose SARS-CoV-2 Antigen (Rapid) - Final Physical Exam Const alert and no apparent distress General Appearance: cooperative and comfortable Resp normal respiratory effort Effort and Inspection: able to speak in complete sentences Extremity normal capillary refill and no calf tenderness General Extremity: edema right lower extremity (foot especially) moderate, no tenderness to palpation of joints or extremities and other findings Other Details: Capillary refill time less than 3 seconds noted to digits ; Negative for clubbing or cyanosis Skin General Skin Exam: atrophy and dry skin; Negative for ecchymosis, erythema, eschar, pallor or dermatitis Rashes: no rashes Wounds: wounds noted other granular base. no purulence on expression. 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: (2) Tobacco abuse: (3) Osteomyelitis: QUALIFIERS: Osteomyelitis type: other acute Osteomyelitis location: foot Laterality: right Qualified Code(s): M86.171 - Other acute osteomyelitis, right ankle and foot (4) Type 2 diabetes mellitus: QUALIFIERS: Diabetes mellitus fpc insulin use: without fpc use Diabetes mellitus complication status: with diabetic arthropathy Diabetes mellitus complication detail: with neuropathic arthropathy Qualified Code(s): E11.610 - Type 2 diabetes mellitus with diabetic neuropathic arthropathy (5) Charcot arthropathy of midfoot: (6) Obese: QUALIFIERS: Obesity type: due to excess calories Obesity classification: adult class 3 (BMI >= 40) Serious obesity comorbidity presence: with serious comorbidity Body mass index: BMI 40.0-44.9 Qualified Code(s): E66.01 - Morbid (severe) obesity due to excess calories; Z68.41 - Body mass index [BMI]40.0-44.9, adult (7) History of amputation of foot: (8) Right foot pain: (9) Bilateral lower extremity edema: (10) Venous insufficiency: PLAN: I reviewed and discussed his case. VAC removed and wound site evaluated. Patient is status post I&D with bone debridement of right foot 01/15/[address] Otoole. Patient noted to have Charcot foot to the right foot. He reports no issues after surgery. Patient to remain nonweightbearing to the right lower extremity. Will work with pt for nwb status and see if walker versus knee roller is appropriate. I reapplied the wound VAC this morning and he will continue with 150 mmHg continuous. The foam was applied to both the plantar and dorsal sites and was bridged together. Initial wound cultures demonstrate group B streptococcus, MRSA, and corynebacterium from the foot wound. There is also noted to be strep agalactiae noted in his 1 blood culture. OR cultures of the cuboid bone is positive for beta Streptococcus and corynebacterium. MRI was reviewed showing both Charcot changes and concern for osteomyelitis of the plantar cuboid area with ulcerations. WBC decreased to 9.3. ID recs appreciated.PICC line ordered. Unasyn 3 g q 8 hrs with stop date 02/26/21 and serial labs recommended. He is at risk for further amputation of foot or leg. Patient noted to have a [place] boot made for him and is ready to be picked up. This probably gives patient the best chance to prevent future ulcerations once his current ulcerations have healed.I advised him to hold on picking this up at this acute management time. Medical management per hospitalist is appreciated. Hemoglobin A1C noted at 5.9 %. [place] for nutritional supplementation is recommended. Podiatry will continue to follow while in house. To follow up with Dr. Otoole at wound care center at time of discharge. SNF placement pending; social work notes were reviewed. Discussed case with nursing staff. I answered all of his questions. Please contact if any questions or concerns. This note was generated with [employer] software. It may contain incorrect words, spelling, and punctuation that were not noted in checking the note before signing.
[2021-01-18 12:16] LABS: Bedside Glucose 108 mg/dL (70-110)
[2021-01-18 13:52] VITALS: BP 151/86; PULSE 68; RESP 18; TEMP 36.6; O2SAT 95
[2021-01-18 16:25] LABS: Bedside Glucose 112 mg/dL (70-110)
[2021-01-18 20:21] VITALS: BP 155/76; PULSE 69; RESP 16; TEMP 36.8; O2SAT 94
[2021-01-18] MEDS: Morphine 2 MG/ML Syringe IV (20:31)
[2021-01-18] MEDS: APIXABAN 5 MG TABLET PO (21:19)
[2021-01-18 21:21] LABS: Bedside Glucose 135 mg/dL (70-110)
[2021-01-19 02:38] VITALS: BP 143/71; PULSE 67; RESP 16; TEMP 36.5; O2SAT 97
[2021-01-19] MEDS: oxyCODONE 5 MG Tablet PO ×3 (02:43→20:11)
[2021-01-19] MEDS: Acetaminophen 325 MG Tablet 650 MG PO ×2 (02:44→20:10)
[2021-01-19 06:22] LABS: Absolute Lymphocyte Count 1.25 X10^3/uL (0.83-4.51); Absolute Neutrophil Count 5.1 X10^3/uL (2.0-7.7); Basophil# 0.05 X10^3/uL; Basophil% 0.6 % (0-1); Eosinophil# 0.45 X10^3/uL; Eosinophils% 5.8 % (0-5); Hematocrit 35.3 % (40-54); Lymphocyte # 1.25 X10^3/ul (0.83-4.51); Lymphocyte % 16.1 % (19-41); Mean Corp Hgb Conc 31.2 g/dL (32-36); Mean Corpuscular Hgb 26.1 pg (27.0-32.0); Mean Corpuscular Volume 83.8 fL (80-94); Mean Platelet Vol. 11.6 fl (6.2-12.0); Monocyte# 0.66 X10^3/uL; Monocyte% 8.5 % (0-10); NRBC Flagged by Analyzer 0 % (0-5); Neutrophil # 5.09 X10^3/uL (2.7-7.7); Neutrophil % 65.9 % (47-70); Platelet Count 207 K/mm3 (150-450); RBC Distribution Width CV 15.7 % (11.6-14.6); Red Blood Count 4.21 M/mm3 (4.6-6.2); White Blood Count 7.7 K/mm3 (4.4-11.0)
[2021-01-19 06:35] LABS: Bedside Glucose 91 mg/dL (70-110)
[2021-01-19 06:40] LABS: Anion Gap 5 (5-15); BUN 16 mg/dL (7-18); BUN/Creat Ratio 15.5 RATIO (10-20); Calcium,Total 8.3 mg/dL (8.5-10.1); Chloride 106 mmol/L (98-107); Creatinine, Serum 1.03 mg/dL (0.70-1.30); EST Glomerular Filtration Rate 81 mL/min (>60); Est Glom Filt Rate - Afr Amer 98 mL/min (>60); Estimated Creatinine Clearance 91.38 ml/min; Glucose 95 mg/dL (74-106); Potassium 3.5 mmol/L (3.5-5.1); Sodium Level 141 mmol/L (136-145)
[2021-01-19 07:15] VITALS: O2SAT 93
--- NOTE | 2021-01-19 07:39 | PN_ITS ---
Subjective Subjective This patient seen and examined resting comfortably. He is status post I&D of his right foot with widespread debridement. He relates his pain is well controlled with medication. He denies foot pain. He denies any fever, nausea, vomiting, chills, or calf pain. His wound vac is intact to the right foot. [facility] facility placement is pending. Objective Data Objective Data Vital Signs: Vital Signs Temp Pulse Resp BP Pulse Ox 97.7 F L 67 16 143/71 H 97 01/19/21 02:38 01/19/21 02:38 01/19/21 02:38 01/19/21 02:38 01/19/21 02:38 Oxygen Delivery Method Room Air Weight: 149.867 kg Body Mass Index (BMI) 46.0 Intake & Output: Intake and Output for Last 24 Hours 01/17/21 01/18/21 01/19/21 23:59 23:59 23:59 Intake Total 1663.25 / 1663.25 2758.00 / 3458.00 1707.75 / 1707.75 Output Total 2350 / 2350 2225 / 4025 3225 / 3225 Balance -686.75 / -686.75 533.00 / -567.00 -1517.25 / -1517.25 Lab / Micro Data Result Diagrams: 01/19/21 05:21 01/19/21 05:21 Labs: Laboratory Results - last 24 hr 01/18/21 01/18/21 01/18/21 12:00 16:21 21:17 WBC RBC Hgb Hct MCV MCH MCHC RDW Std Deviation RDW Coeff of Maria Fernanda Plt Count MPV Immature Gran % (Auto) Neut % (Auto) Lymph % (Auto) [place] % (Auto) Eos % (Auto) Baso % (Auto) Absolute Neuts (auto) Absolute Lymphs (auto) Nucleated RBC % Sodium Potassium Chloride Carbon Dioxide Anion Gap BUN Creatinine Estim Creat Clear Calc Est GFR (MDRD) Af Amer Est GFR (MDRD) Non-Af BUN/Creatinine Ratio Glucose Calcium POC Glucose 108 112 H 135 H 01/19/21 01/19/21 01/19/21 05:21 05:21 06:19 WBC 7.7 RBC 4.21 L Hgb 11.0 L Hct 35.3 L MCV 83.8 MCH 26.1 L MCHC 31.2 L RDW Std Deviation 48.0 H RDW Coeff of Maria Fernanda 15.7 H Plt Count 207 MPV 11.6 Immature Gran % (Auto) 3.100 H Neut % (Auto) 65.9 Lymph % (Auto) 16.1 L [place] % (Auto) 8.5 Eos % (Auto) 5.8 H Baso % (Auto) 0.6 Absolute Neuts (auto) 5.1 Absolute Lymphs (auto) 1.25 Nucleated RBC % 0 Sodium 141 Potassium 3.5 Chloride 106 Carbon Dioxide 30.0 Anion Gap 5 BUN 16 Creatinine 1.03 Estim Creat Clear Calc 91.38 Est GFR (MDRD) Af Amer 98 Est GFR (MDRD) Non-Af 81 BUN/Creatinine Ratio 15.5 Glucose 95 Calcium 8.3 L POC Glucose 91 Micro: Microbiology 01/14/21 07:00 Wound - Right Foot Gram Stain - Final 01/14/21 07:00 Wound - Right Foot Wound Culture - Preliminary Streptococcus agalactiae (B) Corynebacterium minutissimum Gram positive carlos 01/14/21 07:00 Wound - Right Foot Anaerobic Culture - Preliminary Checking for anaerobes, further studies to follow. 01/15/21 13:23 Bone - Right Foot Gram Stain - Final 01/15/21 13:23 Bone - Right Foot Wound Culture - Final Streptococcus agalactiae (B) Corynebacterium minutissimum 01/15/21 13:23 Bone - Right Foot Anaerobic Culture - Preliminary Checking for anaerobes, further studies to follow. 01/15/21 13:20 Tissue - Aerobic & Anaerobic Swabs Gram Stain - Final 01/15/21 13:20 Tissue - Aerobic & Anaerobic Swabs Wound Culture - Final Meth. resistant Staph. aureus Streptococcus agalactiae (B) Corynebacterium minutissimum 01/15/21 13:20 Tissue - Aerobic & Anaerobic Swabs Anaerobic Culture - Preliminary Checking for anaerobes, further studies to follow. 01/13/21 23:20 Blood Culture (Wb) - Left Hand Blood Culture - Final Streptococcus agalactiae (B) 01/13/21 23:15 Blood Culture (Wb) - Anticubital Left Blood Culture - Preliminary No growth in 48 hours. 01/13/21 15:00 Mucosa - Nose SARS-CoV-2 Antigen (Rapid) - Final Physical Exam Const alert and no apparent distress General Appearance: cooperative and comfortable Resp normal respiratory effort Effort and Inspection: able to speak in complete sentences Extremity normal capillary refill and no calf tenderness General Extremity: edema right lower extremity (foot especially) moderate, no tenderness to palpation of joints or extremities and other findings Other Details: Capillary refill time less than 3 seconds noted to digits ; Negative for clubbing or cyanosis Skin General Skin Exam: atrophy and dry skin; Negative for ecchymosis, erythema, eschar, pallor or dermatitis Rashes: no rashes Wounds: wounds noted other wound vac on continuous intact; no adjacent erythema or odor. 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: (2) Tobacco abuse: (3) Osteomyelitis: QUALIFIERS: Osteomyelitis type: other acute Osteomyelitis location: foot Laterality: right Qualified Code(s): M86.171 - Other acute osteomyelitis, right ankle and foot (4) Type 2 diabetes mellitus: QUALIFIERS: Diabetes mellitus long-term insulin use: 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 Diabetes mellitus complication status: with diabetic arthropathy Diabetes mellitus complication detail: with neuropathic arthropathy Qualified Code(s): E11.610 - Type 2 diabetes mellitus with diabetic neuropathic arthropathy (5) Charcot arthropathy of midfoot: (6) Obese: QUALIFIERS: Obesity type: due to excess calories Obesity class ification: adult class 3 (BMI >= 40) Serious obesity comorbidity presence: with serious comorbidity Body mass index: BMI 40.0-44.9 Qualified Code(s): E66.01 - Morbid (severe) obesity due to excess calories; Z68.41 - Body mass index [BMI]40.0-44.9, adult (7) History of amputation of foot: (8) Right foot pain: (9) Bilateral lower extremity edema: (10) Venous insufficiency: PLAN: I reviewed and discussed his case. VAC removed and wound site evaluated. He is afebrile and vital signs are stable. Patient is status post I&D with bone debridement of right foot 01/15/[address] Otoole. Patient noted to have Charcot foot to the right foot. He reports no issues after surgery. Patient to remain nonweightbearing to the right lower extremity. Will work with pt for nwb status and see if walker versus knee roller is appropriate. To continue wound VAC at 150 mmHg continuous. Initial wound cultures demonstrate group B streptococcus, MRSA, and corynebacterium from the foot wound. There is also noted to be strep agalactiae noted in his blood culture. OR cultures of the cuboid bone was positive for beta Streptococcus and corynebacterium. MRI was reviewed showing both Charcot changes and concern for osteomyelitis of the plantar cuboid area with ulcerations. WBC decreased to 7.7. ID recs appreciated. PICC line placed. Unasyn 3 g q 8 hrs with stop date 02/26/21 and serial labs recommended. He is at risk for further amputation of foot or leg.BIG [place] walker ready at [place] once healed. Medical management per hospitalist is appreciated. [place] for nutritional supplementation is recommended. Podiatry will continue to follow while in house. To follow up with Dr. Otoole at wound care center at time of discharge. SNF placement pending; social work notes were reviewed. I answered all of his questions. Please contact if any questions or concerns. Genevieve John DPM, [facility] [phone] This note was generated with [employer] dictation software. It may contain incorrect words, spelling, and punctuation that were not noted in checking the note before signing.
[2021-01-19 07:55] VITALS: BP 154/91; PULSE 68; RESP 16; TEMP 36.4; O2SAT 93
[2021-01-19] MEDS: Lisinopril 10 MG Tablet 30 MG PO (09:00)
[2021-01-19] MEDS: APIXABAN 5 MG TABLET PO ×2 (09:00→21:32)
[2021-01-19 11:00] LABS: Bedside Glucose 132 mg/dL (70-110)
--- NOTE | 2021-01-19 14:02 | PN.HOSP_ITS ---
Subjective Subjective Patient states he is feeling well. Denies any significant complaints of pain. Moving his bowels well. Frustrated as he is waiting for discharge per insurance company pre-CERT. Objective Data Objective Data Vital Signs: Vital Signs Temp Pulse Resp BP Pulse Ox 97.6 F L 68 16 154/91 H 93 01/19/21 07:55 01/19/21 07:55 01/19/21 07:55 01/19/21 07:55 01/19/21 07:55 Oxygen Delivery Method Room Air Weight: 149.867 kg Body Mass Index (BMI) 46.0 Intake & Output: Intake and Output for Last 24 Hours 01/17/21 01/18/21 01/19/21 23:59 23:59 23:59 Intake Total 1663.25 / 1663.25 2758.00 / 3458.00 2319.75 / 2319.75 Output Total 2350 / 2350 2225 / 4025 3475 / 3475 Balance -686.75 / -686.75 533.00 / -567.00 -1155.25 / -1155.25 Lab / Micro Data Result Diagrams: 01/19/21 05:21 01/19/21 05:21 Labs: Laboratory Results - last 24 hr 01/18/21 01/18/21 01/19/21 16:21 21:17 05:21 WBC 7.7 RBC 4.21 L Hgb 11.0 L Hct 35.3 L MCV 83.8 MCH 26.1 L MCHC 31.2 L RDW Std Deviation 48.0 H RDW Coeff of Maria Fernanda 15.7 H Plt Count 207 MPV 11.6 Immature Gran % (Auto) 3.100 H Neut % (Auto) 65.9 Lymph % (Auto) 16.1 L [place] % (Auto) 8.5 Eos % (Auto) 5.8 H Baso % (Auto) 0.6 Absolute Neuts (auto) 5.1 Absolute Lymphs (auto) 1.25 Nucleated RBC % 0 Sodium Potassium Chloride Carbon Dioxide Anion Gap BUN Creatinine Estim Creat Clear Calc Est GFR (MDRD) Af Amer Est GFR (MDRD) Non-Af BUN/Creatinine Ratio Glucose Calcium POC Glucose 112 H 135 H 01/19/21 01/19/21 01/19/21 05:21 06:19 10:57 WBC RBC Hgb Hct MCV MCH MCHC RDW Std Deviation RDW Coeff of Maria Fernanda Plt Count MPV Immature Gran % (Auto) Neut % (Auto) Lymph % (Auto) [place] % (Auto) Eos % (Auto) Baso % (Auto) Absolute Neuts (auto) Absolute Lymphs (auto) Nucleated RBC % Sodium 141 Potassium 3.5 Chloride 106 Carbon Dioxide 30.0 Anion Gap 5 BUN 16 Creatinine 1.03 Estim Creat Clear Calc 91.38 Est GFR (MDRD) Af Amer 98 Est GFR (MDRD) Non-Af 81 BUN/Creatinine Ratio 15.5 Glucose 95 Calcium 8.3 L POC Glucose 91 132 H Micro: Microbiology 01/14/21 07:00 Wound - Right Foot Gram Stain - Final 01/14/21 07:00 Wound - Right Foot Wound Culture - Final Streptococcus agalactiae (B) Corynebacterium minutissimum Atopobium vaginae 01/14/21 07:00 Wound - Right Foot Anaerobic Culture - Preliminary Checking for anaerobes, further studies to follow. 01/13/21 23:15 Blood Culture (Wb) - Anticubital Left Blood Culture - Final No growth in 5 days. 01/15/21 13:23 Bone - Right Foot Gram Stain - Final 01/15/21 13:23 Bone - Right Foot Wound Culture - Final Streptococcus agalactiae (B) Corynebacterium minutissimum 01/15/21 13:23 Bone - Right Foot Anaerobic Culture - Preliminary Checking for anaerobes, further studies to follow. 01/15/21 13:20 Tissue - Aerobic & Anaerobic Swabs Gram Stain - Final 01/15/21 13:20 Tissue - Aerobic & Anaerobic Swabs Wound Culture - Final Meth. resistant Staph. aureus Streptococcus agalactiae (B) Corynebacterium minutissimum 01/15/21 13:20 Tissue - Aerobic & Anaerobic Swabs Anaerobic Culture - Preliminary Checking for anaerobes, further studies to follow. 01/13/21 23:20 Blood Culture (Wb) - Left Hand Blood Culture - Final Streptococcus agalactiae (B) 01/13/21 15:00 Mucosa - Nose SARS-CoV-2 Antigen (Rapid) - Final Physical Exam Const alert, oriented x3, no apparent distress and well nourished Constitutional Narrative: Morbidly obese white male sitting up in bed, watching television, appears comfortable, nontoxic Exam Limitations: no limitations HEENT head/scalp atraumatic Head and Scalp: normocephalic Resp normal respiratory effort, no retractions, no use of accessory muscles and clear to auscultation bilaterally Resp Narrative: Distant but clear Cardio regular rate, regular rhythm, S1 normal heart sound, S2 normal heart sound, no murmurs, no rub, no gallops, no clicks and no JVD GI normal to inspection, nondistended, normoactive bowel sounds, soft to palpation, non-tender and non-distended Extremity Extremity Narrative: Wound VAC on right lower extremity, multiple amputated toes, dressing in place, cap refill is good Peripheral Pulses: Yes pulses 2+ throughout Neuro oriented x3 Sensorium / Orientation: awake and alert Assessment & Plan Assessment/Plan (1) Osteomyelitis of left foot: QUALIFIERS: Osteomyelitis type: subacute Qualified Code(s): M86.272 - Subacute osteomyelitis, left ankle and foot (2) Type 2 diabetes mellitus: QUALIFIERS: Diabetes mellitus skilled nursing insulin use: without skilled nursing use Diabetes mellitus complication status: with diabetic arthropathy Diabetes mellitus complication detail: with neuropathic arthropathy Qualified Code(s): E11.610 - Type 2 diabetes mellitus with diabetic neuropathic arthropathy (3) Hypertension: (4) Sepsis: QUALIFIERS: Sepsis type: sepsis due to unspecified organism Sepsis acute organ dysfunction status: without acute organ dysfunction Qualified Code(s): A41.9 - Sepsis, unspecified organism PLAN: Sepsis secondary to acute osteomyelitis of the left lower extremity/Bacteremia -Surgical debridement completed on 01/15/2021 -MRI of the right foot showed evidence of osteomyelitis of the plantar aspect of the foot with soft tissue abscess at the plantar aspect and bone edema of the tarsal bones of the midfoot. -Wound VAC in place--> patient to continue at discharge -Polymicrobial bone infection (group B streptococcus, MRSA, and corynebacterium) -Blood Cx + for strep agalactiae -Patient on Unasyn until 02/26/2021 -PICC in right upper extremity -Patient is at risk for further amputations -Podiatry has arranged for a [place] walker -We will follow with Dr. Otoole at the wound center at discharge -ID and podiatry are following DM-2 -Continue Januvia, Trulicity, and metformin -Recommend tight glycemic control -Accu-Cheks -Carb controlled diet -Blood sugars are well controlled Hypertension -Continue lisinopril but increase from 20 mg to 30 mg daily as blood pressures have been consistently elevated History of DVT -Continue apixaban KRYSTAL -Patient noncompliant with CPAP at night Super morbid obesity -BMI 46 -Recommend weight loss -Complicates overall care and prognosis DVT prophylaxis -Patient fully anticoagulated CODE STATUS -Full code Charges/Coding Visit Charges Inpatient E&M: 12249 Subs Hosp L2
[2021-01-19 14:21] VITALS: BP 155/73; PULSE 67; RESP 16; TEMP 36.5; O2SAT 97
[2021-01-19 16:06] LABS: Bedside Glucose 102 mg/dL (70-110)
[2021-01-19 19:59] VITALS: BP 155/89; PULSE 68; RESP 18; TEMP 36.8; O2SAT 97
[2021-01-19 21:41] LABS: Bedside Glucose 97 mg/dL (70-110)
[2021-01-20 02:20] VITALS: BP 144/69; PULSE 73; RESP 18; TEMP 36.4; O2SAT 94
[2021-01-20 06:40] LABS: Bedside Glucose 98 mg/dL (70-110)
[2021-01-20 07:45] VITALS: BP 181/96; PULSE 75; RESP 18; TEMP 36.6; O2SAT 98
[2021-01-20] MEDS: oxyCODONE 5 MG Tablet PO ×2 (07:49→16:13)
[2021-01-20] MEDS: APIXABAN 5 MG TABLET PO ×2 (07:49→22:29)
[2021-01-20] MEDS: Lisinopril 10 MG Tablet 30 MG PO (07:50)
[2021-01-20] MEDS: Acetaminophen 325 MG Tablet 650 MG PO ×2 (07:50→16:13)
--- NOTE | 2021-01-20 10:19 | CASEMGMT ---
Addendum entered by Bella Morales 01/20/21 14:52: SW placed a call to [facility] and spoke with Nehal and updated her to disregard referral as pt is wanting to discharge home. Original Note: Social Work Note SW updated that pt is now requesting to discharge home. SW in to speak with pt. Pt confirms he wishes to discharge home. SW explained pt will have wound vac and IV antibiotics at discharge. Pt states he has had HHC in the past, [facility], is agreeable to having them again. Pt states he has a neighbor who is/used to be an RN Aide who has told pt she would be able to assist if pt needed it. SW updated RN CM. Bella Morales SENIOR CARE MANAGER, BODY COMPONENT ENGINEER
--- NOTE | 2021-01-20 11:07 | PN.HOSP_ITS ---
Subjective Subjective Patient is a 50-year-old gentleman admitted with sepsis secondary to osteomyelitis involving the right lower extremity with bacteremia. Patient underwent Debridement of ulceration into the level of bone with biopsy of bone and wound VAC application on 01/15/2021 Objective Data Objective Data Vital Signs: Vital Signs Temp Pulse Resp BP Pulse Ox 97.9 F 75 18 181/96 H 98 01/20/21 07:45 01/20/21 07:45 01/20/21 07:45 01/20/21 07:45 01/20/21 07:45 Oxygen Delivery Method Room Air Weight: 149.867 kg Body Mass Index (BMI) 46.0 Intake & Output: Intake and Output for Last 24 Hours 01/18/21 01/19/21 01/20/21 23:59 23:59 23:59 Intake Total 2758.00 / 3458.00 3381.50 / 3981.50 1324.25 / 1324.25 Output Total 2225 / 4025 5025 / 6025 1700 / 1700 Balance 533.00 / -567.00 -1643.50 / -2043.50 -375.75 / -375.75 Lab / Micro Data Result Diagrams: 01/19/21 05:21 01/19/21 05:21 Labs: Laboratory Results - last 24 hr 01/19/21 16:03: POC Glucose 102 01/19/21 21:31: POC Glucose 97 01/20/21 06:33: POC Glucose 98 Micro: Microbiology 01/14/21 07:00 Wound - Right Foot Gram Stain - Final 01/14/21 07:00 Wound - Right Foot Wound Culture - Final Streptococcus agalactiae (B) Corynebacterium minutissimum Atopobium vaginae 01/14/21 07:00 Wound - Right Foot Anaerobic Culture - Preliminary Checking for anaerobes, further studies to follow. 01/13/21 23:15 Blood Culture (Wb) - Anticubital Left Blood Culture - Final No growth in 5 days. 01/15/21 13:23 Bone - Right Foot Gram Stain - Final 01/15/21 13:23 Bone - Right Foot Wound Culture - Final Streptococcus agalactiae (B) Corynebacterium minutissimum 01/15/21 13:23 Bone - Right Foot Anaerobic Culture - Preliminary Checking for anaerobes, further studies to follow. 01/15/21 13:20 Tissue - Aerobic & Anaerobic Swabs Gram Stain - Final 01/15/21 13:20 Tissue - Aerobic & Anaerobic Swabs Wound Culture - Final Meth. resistant Staph. aureus Streptococcus agalactiae (B) Corynebacterium minutissimum 01/15/21 13:20 Tissue - Aerobic & Anaerobic Swabs Anaerobic Culture - Preliminary Checking for anaerobes, further studies to follow. 01/13/21 23:20 Blood Culture (Wb) - Left Hand Blood Culture - Final Streptococcus agalactiae (B) 01/13/21 15:00 Mucosa - Nose SARS-CoV-2 Antigen (Rapid) - Final Physical Exam Narrative GENERAL: cooperative HEENT: Atraumatic; EYES; Anicteric, Normal Conjunctiva NECK; supple, normal thyroid, RESPIRATORY: Diminished to auscultation CARDIOVASCULAR: Regular S1 S2, GI: soft, normoactive bowel sounds, : No Renal angle tenderness; EXTREMITIES: Wound VAC right foot MUSCULOSKELETAL: no muscle waisting NEURO: Awake; no lateralizing signs. SKIN: No Rash PSYCH; Flat affect Assessment & Plan Assessment/Plan (1) Osteomyelitis of left foot: QUALIFIERS: Osteomyelitis type: subacute Qualified Code(s): M86. 272 - Subacute osteomyelitis, left ankle and foot (2) Type 2 diabetes mellitus: QUALIFIERS: Diabetes mellitus terminal block assembler insulin use: without terminal block assembler use Diabetes mellitus complication status: with diabetic arthropathy Diabetes mellitus complication detail: with neuropathic arthropathy Qualified Code(s): E11.610 - Type 2 diabetes mellitus with diabetic neuropathic arthropathy (3) Hypertension: (4) Sepsis: QUALIFIERS: Sepsis type: sepsis due to unspecified organism Sepsis acute organ dysfunction status: without acute organ dysfunction Qualified Code(s): A41.9 - Sepsis, unspecified organism PLAN: Patient is a 50-year-old gentleman admitted with sepsis secondary to osteomyelitis involving the right lower extremity with bacteremia. Patient underwent Debridement of ulceration into the level of bone with biopsy of bone and wound VAC application on 01/15/2021 1. Sepsis secondary to osteomyelitis involving the right foot with bacteremia ?Wound cultures grew group B strep MRSA and corynebacterium. Blood cultures positive for strep agalactiae. Patient was seen by infectious disease recommended treating patient with Unasyn for 6 weeks. Patient also underwent surgical debridement on 01/15/2021 2. Diabetes mellitus type II -patient's oral hypoglycemics held. Placed on long acting insulin, Accu-Cheks a.c. and at bedtime and covered with sliding scale insulin 3. Morbid obesity - With a BMI of 46.1 patient was counseled on weight reduction 4. Hypertension - Blood pressure controlled, home medications continued with dose adjustment as needed 5. Obstructive sleep apnea ?Patient apparently noncompliant with CPAP at night 6. History of previous DVT ?Patient is on apixaban Charges/Coding Visit Charges Inpatient E&M: 77125 Subs Hosp L2
--- NOTE | 2021-01-20 11:23 | PN_ITS ---
Subjective Subjective Patient was seen this morning for follow up on right foot. He is sitting in chair with feet up. He relates he wants to go home, he relates he does not want to go to nursing facility. He relates he will be able to stay off foot. [facility] set up and approval is pending. Objective Data Objective Data Vital Signs: Vital Signs Temp Pulse Resp BP Pulse Ox 97.9 F 75 18 181/96 H 98 01/20/21 07:45 01/20/21 07:45 01/20/21 07:45 01/20/21 07:45 01/20/21 07:45 Oxygen Delivery Method Room Air Weight: 149.867 kg Body Mass Index (BMI) 46.0 Intake & Output: Intake and Output for Last 24 Hours 01/18/21 01/19/21 01/20/21 23:59 23:59 23:59 Intake Total 2758.00 / 3458.00 3381.50 / 3981.50 1324.25 / 1324.25 Output Total 2225 / 4025 5025 / 6025 1700 / 1700 Balance 533.00 / -567.00 -1643.50 / -2043.50 -375.75 / -375.75 Lab / Micro Data Result Diagrams: 01/19/21 05:21 01/19/21 05:21 Labs: Laboratory Results - last 24 hr 01/19/21 16:03: POC Glucose 102 01/19/21 21:31: POC Glucose 97 01/20/21 06:33: POC Glucose 98 Micro: Microbiology 01/14/21 07:00 Wound - Right Foot Gram Stain - Final 01/14/21 07:00 Wound - Right Foot Wound Culture - Final Streptococcus agalactiae (B) Corynebacterium minutissimum Atopobium vaginae 01/14/21 07:00 Wound - Right Foot Anaerobic Culture - Preliminary Checking for anaerobes, further studies to follow. 01/13/21 23:15 Blood Culture (Wb) - Anticubital Left Blood Culture - Final No growth in 5 days. 01/15/21 13:23 Bone - Right Foot Gram Stain - Final 01/15/21 13:23 Bone - Right Foot Wound Culture - Final Streptococcus agalactiae (B) Corynebacterium minutissimum 01/15/21 13:23 Bone - Right Foot Anaerobic Culture - Preliminary Checking for anaerobes, further studies to follow. 01/15/21 13:20 Tissue - Aerobic & Anaerobic Swabs Gram Stain - Final 01/15/21 13:20 Tissue - Aerobic & Anaerobic Swabs Wound Culture - Final Meth. resistant Staph. aureus Streptococcus agalactiae (B) Corynebacterium minutissimum 01/15/21 13:20 Tissue - Aerobic & Anaerobic Swabs Anaerobic Culture - Preliminary Checking for anaerobes, further studies to follow. 01/13/21 23:20 Blood Culture (Wb) - Left Hand Blood Culture - Final Streptococcus agalactiae (B) 01/13/21 15:00 Mucosa - Nose SARS-CoV-2 Antigen (Rapid) - Final Physical Exam Const alert and no apparent distress General Appearance: cooperative and comfortable Resp normal respiratory effort Effort and Inspection: able to speak in complete sentences Extremity normal capillary refill and no calf tenderness General Extremity: edema right lower extremity (foot especially) moderate, no tenderness to palpation of joints or extremities and other findings Other Details: Capillary refill time less than 3 seconds noted to digits ; Negative for clubbing or cyanosis Skin General Skin Exam: atrophy and dry skin; Negative for ecchymosis, erythema, eschar, pallor or dermatitis Rashes: no rashes Wounds: wounds noted other Wound Narrative: Right foot: There is granular ulcerations to the plantar and dorsal midfoot down to bone - tissues healthy and viable, granular - appear to be healing well, no cellulitis, no purulence, no fluctuance, no visible abscess, no crepitus - healing well without complication at this time. No evidence of ischemia to the foot or ankle bilateral. No open lesions to the left foot. 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: (2) Tobacco abuse: (3) Osteomyelitis: QUALIFIERS: Laterality: right Osteomyelitis location: foot Osteomyelitis type: other acute Qualified Code(s): M86.171 - Other acute osteomyelitis, right ankle and foot (4) Type 2 diabetes mellitus: QUALIFIERS: Diabetes mellitus complication detail: with neuropathic arthropathy Diabetes mellitus complication status: with diabetic arthropathy Diabetes mellitus exterminator helper termite insulin use: without [facility] use Qualified Code(s): E11.610 - Type 2 diabetes mellitus with diabetic neuropathic arthropathy (5) Charcot arthropathy of midfoot: (6) Obese: QUALIFIERS: Body mass index: BMI 40.0-44.9 Obesity classification: adult class 3 (BMI >= 40) Obesity type: due to excess calories Serious obesity comorbidity presence: with serious comorbidity Qualified Code(s): E66.01 - Morbid (severe) obesity due to excess calories; Z68.41 - Body mass index [BMI]40.0-44.9, adult (7) History of amputation of foot: (8) Right foot pain: (9) Bilateral lower extremity edema: (10) Venous insufficiency: PLAN: s/p debridement right foot on 01/15/2021, VAC removed and wound site evaluated - it is healing and doing well. He is afebrile and vital signs are stable. Patient to remain nonweightbearing to the right lower extremity. Use wheelchair or knee walker. To continue wound VAC at 150 mmHg continuous - change MWF. Reviewed culture results. Wound cultures demonstrate group B streptococcus, MRSA, and corynebacterium from the foot wound. There is also noted to be strep agalactiae noted in his blood culture. OR cultures of the cuboid bone was positive for beta Streptococcus and corynebacterium. MRI was reviewed showing both Charcot changes and concern for osteomyelitis of the plantar cuboid area with ulcerations. WBC now normal. ID recs appreciated. PICC line placed. Unasyn 3 g q 8 hrs with stop date 02/26/21 and serial labs recommended. He is at risk for further amputation of foot or leg. He has a [employer] walker ready at [facility] once healed. Medical management per hospitalist is appreciated. [place] for nutritional supplementation is recommended. Patient with hx of LE DVT: Anticoagulation per medicine team. Podiatry will continue to follow while in house. To follow up with Dr. Otoole at wound care center at time of discharge. SNF placement has been recommended - however he refuses SNF placement and has elected to go home. He relates he will be able to stay off foot and receive appropriate care - he relates he did it before.
--- NOTE | 2021-01-20 11:40 | CASEMGMT ---
ASHLEY PAZ in to discuss discharge planning with patient. Patient states he would like to discharge home with [facility]. Patient states that he has neighbors that are will to help with care and that he has done his brother's IV ATBs previously. ASHLEY PAZ educated patient that his IV ATBs are every 6 hours for 6 weeks. Patient states understanding. Patient is agreeable to [facility] as he is active with them and no other agency is willing to accept the patient per previous attempted referrals. ASHLEY PAZ provided list of in-network infusion companies to patient and he would [facility]. ASHLEY PAZ called and spoke with Giovana at [facility], requesting updated clinicals. ASHLEY PAZ faxed updated clinicals to [facility]. ASHLEY PAZ sent referral to I for IV ATBs. P
[2021-01-20 12:31] LABS: Bedside Glucose 90 mg/dL (70-110)
--- NOTE | 2021-01-20 12:42 | CASEMGMT ---
Addendum entered by Bella Wood 01/20/21 14:28: ASHLEY PAZ received signed wound vac ordered from Dr. Ramos. ASHLEY PAZ faxed signed order to . ASHLEY PAZ updated Darletta regarding referrals and orders sent. Signed vac order placed in chart. Original Note: ASHLEY PAZ received call back from [facility] and they are able to accept the patient. ASHLEY PAZ updated regarding possible discharge for tomorrow 01/21 pending IV atb setup and home wound vac setup. ASHLEY PAZ completed order for home wound vac order online with [facility]. Dr. Ramos updated and sent wound vac order to sign. Clinical information and unsigned order for wound vac faxed to . ASHLEY PAZ updated Darletta regarding referrals made.
[2021-01-20 14:01] VITALS: BP 152/78; PULSE 67; RESP 18; TEMP 36.6; O2SAT 95
--- NOTE | 2021-01-20 15:00 | CASEMGMT ---
RN CM NOTE: Per Dr Ramos, pt may be interested in Knee Walker and a script was given to this RN CM. Script given to pt at this time. He was made aware insurances usually do not cover this item, but informed of locations he may be able to purchase these [id number], if he chooses to do so. He was also provided w/list of local DME companies. Pt voices appreciation. Adriano MTZ RN CM
[2021-01-20 16:16] LABS: Bedside Glucose 110 mg/dL (70-110)
[2021-01-20 20:00] VITALS: BP 152/64; PULSE 71; RESP 18; TEMP 37.1; O2SAT 98
[2021-01-20] MEDS: 0.9% Saline Lock 10 ML Syringe IV (20:26)
[2021-01-20] MEDS: Morphine 2 MG/ML Syringe IV (20:27)
[2021-01-20 22:35] LABS: Bedside Glucose 136 mg/dL (70-110)
[2021-01-21 02:00] VITALS: BP 139/62; PULSE 63; RESP 18; TEMP 36.8; O2SAT 96
[2021-01-21] MEDS: oxyCODONE 5 MG Tablet PO (02:58)
[2021-01-21 06:46] LABS: Bedside Glucose 82 mg/dL (70-110)
--- NOTE | 2021-01-21 07:05 | PCM.PN.HOSP ---
Subjective Subjective Patient seen had a relatively uneventful night. The initial plan was for patient to be discharged to long term facility however now requesting to go home with home health care. Case management/social work and case arranging for home health Objective Data Objective Data Vital Signs: Vital Signs Temp Pulse Resp BP Pulse Ox 98.3 F 63 18 139/62 H 96 01/21/21 02:00 01/21/21 02:00 01/21/21 02:00 01/21/21 02:00 01/21/21 02:00 Oxygen Delivery Method Room Air Weight: 149.867 kg Body Mass Index (BMI) 46.0 Intake & Output: Intake and Output for Last 24 Hours 01/19/21 01/20/21 01/21/21 23:59 23:59 23:59 Intake Total 3381.50 / 3981.50 4824.75 / 4824.75 397.25 / 397.25 Output Total 5025 / 6025 3600 / 4100 1250 / 1250 Balance -1643.50 / -2043.50 1224.75 / 724.75 -852.75 / -852.75 Lab / Micro Data Result Diagrams: 01/19/21 05:21 01/19/21 05:21 Labs: Laboratory Results - last 24 hr 01/20/21 12:02: POC Glucose 90 01/20/21 16:06: POC Glucose 110 01/20/21 22:28: POC Glucose 136 H 01/21/21 06:36: POC Glucose 82 Micro: Microbiology 01/15/21 13:20 Tissue - Aerobic & Anaerobic Swabs Gram Stain - Final 01/15/21 13:20 Tissue - Aerobic & Anaerobic Swabs Wound Culture - Final Meth. resistant Staph. aureus Streptococcus agalactiae (B) Corynebacterium minutissimum 01/15/21 13:20 Tissue - Aerobic & Anaerobic Swabs Anaerobic Culture - Preliminary Anaerobic cocci 01/14/21 07:00 Wound - Right Foot Gram Stain - Final 01/14/21 07:00 Wound - Right Foot Wound Culture - Final Streptococcus agalactiae (B) Corynebacterium minutissimum Atopobium vaginae 01/14/21 07:00 Wound - Right Foot Anaerobic Culture - Preliminary Checking for anaerobes, further studies to follow. 01/13/21 23:15 Blood Culture (Wb) - Anticubital Left Blood Culture - Final No growth in 5 days. 01/15/21 13:23 Bone - Right Foot Gram Stain - Final 01/15/21 13:23 Bone - Right Foot Wound Culture - Final Streptococcus agalactiae (B) Corynebacterium minutissimum 01/15/21 13:23 Bone - Right Foot Anaerobic Culture - Preliminary Checking for anaerobes, further studies to follow. 01/13/21 23:20 Blood Culture (Wb) - Left Hand Blood Culture - Final Streptococcus agalactiae (B) 01/13/21 15:00 Mucosa - Nose SARS-CoV-2 Antigen (Rapid) - Final Physical Exam Narrative GENERAL: cooperative HEENT: Atraumatic; EYES; Anicteric, Normal Conjunctiva NECK; supple, normal thyroid, RESPIRATORY: Diminished to auscultation CARDIOVASCULAR: Regular S1 S2, GI: soft, normoactive bowel sounds, : No Renal angle tenderness; EXTREMITIES: Wound VAC right foot MUSCULOSKELETAL: no muscle waisting NEURO: Awake; no lateralizing signs. SKIN: No Rash PSYCH; Flat affect Assessment & Plan Assessment/Plan (1) Osteomyelitis of left foot: QUALIFIERS: Osteomyelitis type: subacute Qualified Code(s): M86.272 - Subacute osteomyelitis, left ankle and foot (2) Type 2 diabetes mellitus: QUALIFIERS: Diabetes mellitus complication detail: with neuropathic arthropathy Diabetes mellitus complication status: with diabetic arthropathy Diabetes mellitus prison insulin use: without watermaster use Qualified Code(s): E11.610 - Type 2 diabetes mellitus with diabetic neuropathic arthropathy (3) Hypertension: (4) Sepsis: QUALIFIERS: Sepsis acute organ dysfunction status: without acute organ dysfunction Sepsis type: sepsis due to unspecified organism Qualified Code(s): A41.9 - Sepsis, unspecified organism PLAN: Patient is a 50-year-old gentleman admitted with sepsis secondary to osteomyelitis involving the right lower extremity with bacteremia. Patient underwent Debridement of ulceration into the level of bone with biopsy of bone and wound VAC application on 01/15/2021 1. Sepsis secondary to osteomyelitis involving the right foot with bacteremia ?Wound cultures grew group B strep MRSA and corynebacterium. Blood cultures positive for strep agalactiae. Patient was seen by infectious disease recommended treating patient with Unasyn for 6 weeks. Patient also underwent surgical debridement on 01/15/2021 2. Diabetes mellitus type II -patient's oral hypoglycemics held. Placed on long acting insulin, Accu-Cheks a.c. and at bedtime and covered with sliding scale insulin 3. Morbid obesity - With a BMI of 46.1 patient was counseled on weight reduction 4. Hypertension - Blood pressure controlled, home medications continued with dose adjustment as needed 5. Obstructive sleep apnea ?Patient apparently noncompliant with CPAP at night 6. History of previous DVT ?Patient is on apixaban 7. Physical deconditioning - Requested for PT OT eval and social services manager to assist with discharge planning .The initial plan was for patient to be discharged to long term facility however now requesting to go home with home health care. Case management/social work and case arranging for home health Charges/Coding Visit Charges Inpatient E&M: 71244 Subs Hosp L2
[2021-01-21] MEDS: Lisinopril 10 MG Tablet 30 MG PO (07:53)
[2021-01-21] MEDS: APIXABAN 5 MG TABLET PO (07:54)
[2021-01-21 08:00] VITALS: BP 170/88; PULSE 81; RESP 18; TEMP 36.6; O2SAT 97
[2021-01-21 08:25] VITALS: PULSE 81; O2SAT 97
--- NOTE | 2021-01-21 09:13 | NURSING ---
Home VAC approved. will switch pt to home VAC once discharge orders are in. Wound VAC dressing was changed yesterday by nursing staff. Good seal noted at 150mmHg low continuous suction.
--- NOTE | 2021-01-21 10:08 | CASEMGMT ---
Addendum entered by Grisel Vincent 01/21/21 11:47: Script for doxycycline monohydrate PO from Dr Soto faxed to [facility]. Call placed to [facility] and confirmation received that fax did go through. Addendum entered by Grisel Vincent 01/21/21 11:44: Discharge instructions and summary faxed to [facility] at this time. Original Note: ASHLEY PAZ NOTE: Call placed to [facility] and spoke w/Regine. She was made aware plan is for pt to discharge today after 1200 IV dose Unasyn and SOC for 1st IV home infusion for 1800 today. She states she will call [facility] and pt to coordinate delivery of medication/supplies. Call placed to Marlin @ [facility] and she was notified of above discharge plan. Pt made aware of above and denies having questions re: discharge plan. Inquired if pt feels he needs therapy or an aide w/HHC. He declines wanting either of these services. Adriano MTZ RN, CM
--- NOTE | 2021-01-21 10:12 | PCM.PN.ID ---
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 Otoole on 01/15/21. Surg cx now also showing MRSA, cont unasyn with stop date 02/26/21, will add po doxy for MRSA coverage. MRSA not seen in bone cx. ID followup in 2 weeks. Wrote rx. Will follow, d/w Dr. Cameron and adult protective caseworker (3) Type 2 diabetes mellitus: QUALIFIERS: Diabetes mellitus group home insulin use: 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 Diabetes mellitus complication status: with diabetic arthropathy Diabetes mellitus complication detail: with neuropathic arthropathy Qualified Code(s): E11.610 - Type 2 diabetes mellitus with diabetic neuropathic arthropathy
[2021-01-21] MEDS: Doxycycline 100 MG CAPSULE PO (10:18)
--- NOTE | 2021-01-21 10:54 | DS.PCM_ITS ---
Providers Date of Admission: 01/14/21 Primary Care Physician: Dr. Gavin Raymundo MD Consultations 01/14/21 02:24 Consult: Infectious Disease Routine Consulting Provider: Reilly Marie Reason for Consult: osteomyelitis EMERGENT Consult: No Notified: Yes Date Notified: 01/14/21 Time Notified: 09:41 Method of Notification: office Consult: Podiatry Routine Consulting Provider: Cheri Otoole Reason for Consult: Osteomyelitis EMERGENT Consult: No Notified: Yes Date Notified: 01/14/21 Time Notified: 07:13 Method of Notification: Text 01/20/21 11:02 Consult: Onc/Wound/electro mechanical assembler Routine Comment: Reason for Consult:: wound vac foot Reason For Visit: SEPSIS 2NDARY TO OSTEOMYELITIS Diagnosis Discharge Diagnosis (1) 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: Status: Acute Code(s): L97.414 - Non-pressure chronic ulcer of right heel and midfoot with necrosis of bone (2) Osteomyelitis: Status: Suspected Code(s): M86.9 - Osteomyelitis, unspecified Qualifiers: Laterality: right Osteomyelitis location: foot Osteomyelitis type: other acute Qualified Code(s): M86.171 - Other acute osteomyelitis, right ankle and foot (3) Type 2 diabetes mellitus: Status: Acute Code(s): E11.9 - Type 2 diabetes mellitus without complications Qualifiers: Diabetes mellitus complication detail: with neuropathic arthropathy Diabetes mellitus complication status: with diabetic arthropathy Diabetes mellitus exterminator helper insulin use: without exterminator helper use Qualified Code(s): E11.610 - Type 2 diabetes mellitus with diabetic neuropathic arthropathy Medications at Discharge Home Medications metformin 1,000 mg PO BID 01/23/20 acetaminophen 650 mg PO Q6H PRN PRN tab 07/23/20 lisinopril 20 mg PO DAILY 10/29/20 sitagliptin 100 mg PO DAILY 10/29/20 apixaban 5 mg PO BID #60 tab.ds.pk 10/31/20 Handicap Placard #1 ea 12/05/20 Trulicity 3 mg SUBCUT TU 01/13/21 ampicillin-sulbactam 3 g IV Q6 #1 ea 01/21/21 doxycycline monohydrate 100 mg PO BID #84 tab 01/21/21 Hospital Course Summary of Care Provided Minutes Spent on Discharge: 35 Hospital Course: 1. Sepsis secondary to osteomyelitis involving the right foot with bacteremia ?Wound cultures grew group B strep MRSA and corynebacterium. Blood cultures positive for strep agalactiae. Patient was seen by infectious disease recommended treating patient with Unasyn for 6 weeks. Patient also underwent surgical debridement on 01/15/2021. Doxycycline was also added to patient's therapy for 2 weeks 2. Diabetes mellitus type II -patient's oral hypoglycemics held. Placed on long acting insulin, Accu-Cheks a.c. and at bedtime and covered with sliding scale insulin 3. Morbid obesity - With a BMI of 46.1 patient was counseled on weight reduction 4. Hypertension - Blood pressure controlled, home medications continued with dose adjustment as needed 5. Obstructive sleep apnea ?Patient apparently noncompliant with CPAP at night 6. History of previous DVT ?Patient is on apixaban 7. Physical deconditioning - Requested for PT OT eval and social service coordinator to assist with discharge planning .The initial plan was for patient [facility] however now requesting to go home with home health care. Case management/social work and case arranged for home health Physical Exam Narrative GENERAL: cooperative HEENT: Atraumatic; EYES; Anicteric, Normal Conjunctiva NECK; supple, normal thyroid, RESPIRATORY: Diminished to auscultation CARDIOVASCULAR: Regular S1 S2, GI: soft, normoactive bowel sounds, : No Renal angle tenderness; EXTREMITIES: Wound VAC right foot MUSCULOSKELETAL: no muscle waisting NEURO: Awake; no lateralizing signs. SKIN: No Rash PSYCH; Flat affect Weight / BMI Weight Weight: 149.867 kg Body Mass Index (BMI) 46.0 ABG / Lab / Microbiology Data Result Diagrams: 01/19/21 05:21 01/19/21 05:21 Laboratory: Laboratory Results - last 24 hr 01/20/21 12:02: POC Glucose 90 01/20/21 16:06: POC Glucose 110 01/20/21 22:28: POC Glucose 136 H 01/21/21 06:36: POC Glucose 82 Microbiology: Microbiology 01/15/21 13:23 Bone - Right Foot Gram Stain - Final 01/15/21 13:23 Bone - Right Foot Wound Culture - Final Streptococcus agalactiae (B) Corynebacterium minutissimum 01/15/21 13:23 Bone - Right Foot Anaerobic Culture - Final Bacteroides thetaiotaomicron Prevotella disiens Clostridium ramosum Bacteroides caccae 01/15/21 13:20 Tissue - Aerobic & Anaerobic Swabs Gram Stain - Final 01/15/21 13:20 Tissue - Aerobic & Anaerobic Swabs Wound Culture - Final Meth. resistant Staph. aureus Streptococcus agalactiae (B) Corynebacterium minutissimum 01/15/21 13:20 Tissue - Aerobic & Anaerobic Swabs Anaerobic Culture - Final Anaerobic cocci Bacteroides thetaiotaomicron 01/14/21 07:00 Wound - Right Foot Gram Stain - Final 01/14/21 07:00 Wound - Right Foot Wound Culture - Final Streptococcus agalactiae (B) Corynebacterium minutissimum Atopobium vaginae 01/14/21 07:00 Wound - Right Foot Anaerobic Culture - Final Anaerobic cocci Bacteroides thetaiotaomicron Prevotella disiens Clostridium paraputrificum 01/13/21 23:15 Blood Culture (Wb) - Anticubital Left Blood Culture - Final No growth in 5 days. 01/13/21 23:20 Blood Culture (Wb) - Left Hand Blood Culture - Final Streptococcus agalactiae (B) 01/13/21 15:00 Mucosa - Nose SARS-CoV-2 Antigen (Rapid) - Final D/C Instructions Discharge Diet: 1800 Calorie Control Diet Discharge Activity: Return to Normal Activity Call your doctor if you observe: Fever of 101 or Higher, Shortness of breath, Fainting spells and Chest pain Meaningful Use Info Meaningful Use Diagnoses (Choose all that apply): None applicable Discharge Plan Admission Admit Date/Time: 01/14/21 01:22 Attending Provider: To Cameron Primary Care Provider: Gavin Raymundo Consulting Providers: Reilly Marie ; Cheri Otoole Instructions Additional Instructions / Restrictions: -Change wound VAC to right lower extremity 3 times a week with black foam placed at 150 mmHg low continuous pressure. This is to be covered with the tubing well-padded with Christos dressing placed on top. This is to be covered with compression such as an Jens wrap from toes to knee. Should also continue compression from toes to knee on the left lower extremity. Compression wrap should be changed every other day or sooner if they fall down. -wash with soap and water; do not soak -maintain non weightbearing status to right lower extremity with use of assistive device Discharge Orders/Prescriptions Prescriptions: New doxycycline monohydrate 100 mg tablet 100 mg PO BID Qty: 84 RF: 0 ampicillin-sulbactam 3 gram Recon Soln 3 g IV Q6 Qty: 1 RF: 0 Continued (DME) Handicap Placard See Rx Instructions .ROUTE .MEDSUPPLY Qty: 1 RF: 0 metformin 1,000 MG tablet 1,000 mg PO BID RF: 0 acetaminophen 325 MG tablet 650 mg PO Q6H PRN PRN (Reason: Pain Score 1-10/Temp > 100.7 F) RF: 0 lisinopril 20 MG tablet 20 mg PO DAILY RF: 0 sitagliptin 100 MG tablet 100 mg PO DAILY RF: 0 apixaban 5 MG tablets,dose pack 5 mg PO BID Qty: 60 RF: 1 Trulicity 3 mg/0.5 mL pen injector 3 mg SUBCUT TU RF: 0 Referrals / Follow Up: Wound Health [Outside] (with Dr. Otoole please call for appointment at [phone] in 1 week) Gavin Raymundo MD [Primary Care Provider] - In 1 Week Reilly Marie MD [STAFF PHYSICIAN] - Within 2 Weeks Disposition Disposition (needs filled in before D/C Order can be placed): Home Health Service Charges/Coding Visit Charges Inpatient E&M: 05093 Disch Hosp
--- NOTE | 2021-01-21 11:08 | PCM.DC ---
Discharge Instructions Diet Discharge Diet: 1800 Calorie Control Diet Dressing / Incision Call your doctor if you observe: Fever of 101 or Higher, Shortness of breath, Fainting spells and Chest pain Follow Up Care Test Results: Test results from this visit will be discussed in further detail at your follow-up appointment, if applicable. Discharge Plan Admission Admit Date/Time: 01/14/21 01:22 Attending Provider: To Cameron Primary Care Provider: Gavin Raymundo Consulting Providers: Reilly Marie ; Cheri Otoole Instructions Additional Instructions / Restrictions: -Change wound VAC to right lower extremity 3 times a week with black foam placed at 150 mmHg low continuous pressure. This is to be covered with the tubing well-padded with Christos dressing placed on top. This is to be covered with compression such as an Jens wrap from toes to knee. Should also continue compression from toes to knee on the left lower extremity. Compression wrap should be changed every other day or sooner if they fall down. -wash with soap and water; do not soak -maintain non weightbearing status to right lower extremity with use of assistive device Discharge Orders/Prescriptions Prescriptions: New doxycycline monohydrate 100 mg tablet 100 mg PO BID Qty: 84 RF: 0 ampicillin-sulbactam 3 gram Recon Soln 3 g IV Q6 Qty: 1 RF: 0 Continued (DME) Handicap Placard See Rx Instructions .ROUTE .MEDSUPPLY Qty: 1 RF: 0 metformin 1,000 MG tablet 1,000 mg PO BID RF: 0 acetaminophen 325 MG tablet 650 mg PO Q6H PRN PRN (Reason: Pain Score 1-10/Temp > 100.7 F) RF: 0 lisinopril 20 MG tablet 20 mg PO DAILY RF: 0 sitagliptin 100 MG tablet 100 mg PO DAILY RF: 0 apixaban 5 MG tablets,dose pack 5 mg PO BID Qty: 60 RF: 1 Trulicity 3 mg/0.5 mL pen injector 3 mg SUBCUT TU RF: 0 Referrals / Follow Up: Wound Health [Outside] (with Dr. Otoole please call for appointment at [phone] in 1 week) Gavin Raymundo MD [Primary Care Provider] - In 1 Week Reilly Marie MD [STAFF PHYSICIAN] - Within 2 Weeks Disposition Disposition (needs filled in before D/C Order can be placed): Home Health Service
[2021-01-21 11:30] LABS: Bedside Glucose 110 mg/dL (70-110)
--- NOTE | 2021-01-22 14:51 | CASEMGMT ---
ASHLEY PAZ Discharge Follow-up Phone Call: MARLIN: Oly Strata: 4 Call Date: 01/22/21 Discharge Date: 01/21/21 Time of Call: 1450 Duration: 1 min Admitting Diagnosis: sepsis secondary to osteomyelitis RN JACKSON attempted to complete follow-up phone call after recent hospitalization. No answer, voice message left with return contact information. Patient was setup with [facility] for wound vac and IV ATBs. Follow-up appt scheduled with PCP on 01/28
== END 2021-01-21 13:12 | disposition home health service (06) | DRG 314 ==
LOC: ED 01-14 01:27 → MS3 01-14 02:11
PROVIDERS: Anesthesiology; Internal Medicine; Podiatrist Foot & Ankle Surgery; Student in an Organized Health Care Education/Training Program; Admitting Provider Hospitalist; Emergency Provider Emergency Medicine; PCP Internal Medicine; Visit Provider Internal Medicine
PROC: 0QBL0ZZ Excision of Right Tarsal, Open Approach (ICD-10-PCS; principal; 2021-01-15 12:20)
DX: E11.69 Type 2 diabetes mellitus with other specified complication (principal); M86.171 Other acute osteomyelitis, right ankle and foot; E11.610 Type 2 diabetes mellitus with diabetic neuropathic arthropathy; L97.414 Non-pressure chronic ulcer of right heel and midfoot with necrosis of bone; E11.42 Type 2 diabetes mellitus with diabetic polyneuropathy; E11.621 Type 2 diabetes mellitus with foot ulcer; B95.1 Streptococcus, group B, as the cause of diseases classified elsewhere; B95.4 Other streptococcus as the cause of diseases classified elsewhere; E66.01 Morbid (severe) obesity due to excess calories; Z68.42 Body mass index [BMI] 45.0-49.9, adult; Z89.439 Acquired absence of unspecified foot; G47.33 Obstructive sleep apnea (adult) (pediatric); M19.90 Unspecified osteoarthritis, unspecified site; I87.2 Venous insufficiency (chronic) (peripheral); I10 Essential (primary) hypertension; F17.210 Nicotine dependence, cigarettes, uncomplicated; R21 Rash and other nonspecific skin eruption; Z79.899 Other long term (current) drug therapy; Z79.01 Long term (current) use of anticoagulants; Z79.84 Long term (current) use of oral hypoglycemic drugs; Z86.718 Personal history of other venous thrombosis and embolism; Z91.19 Patient's noncompliance with other medical treatment and regimen
CPT/HCPCS: 36415; 36569; 73620; 73630; 73718; 76000; 80048; 80053; 80202; 82962; 83036; 83605; 85025; 85610; 85730; 87015; 87040; 87070; 87075; 87077; 87102; 87116; 87186; 87205; 87206; 87426; 87640; 88304; 88305; 88311; 93005; 97110; 97162; 97166; 97530; 97535; 97802; 97803; 99285; 99406; J7030; J7040; J7050; A4216; J0295; J2405

== ENCOUNTER 2021-01-22 00:28 | Emergency (ER) | payer MEDICAID, SELFPAY ==
[2021-01-15 11:18] VITALS: BMI 46.0
[2021-01-22 00:29] VITALS: BP 166/86; PULSE 95; RESP 18; TEMP 36.9; O2SAT 95; BMI 47.7
--- NOTE | 2021-01-22 01:03 | EDS_ITS ---
HPI History of Present Illness Chief Complaint: Wound Check Informant: patient Narrative Narrative: 50-year-old male presenting for wound check. Patient was discharged from the hospital yesterday. He was concerned when he was at home he noted his wound VAC was alarming that it was leaking. He has a PICC line in place and his home nurse came to give him his antibiotics tonight. He states he was not sent home with any pain medications. He discussed with Dr. Ramos prior to arrival. Prior similar symptoms: Yes Recent Illness/Hospitalization: Yes [facility] Medical History Amputation of toe of left foot Cellulitis Charcot arthropathy of midfoot DVT (deep venous thrombosis) History of esophageal disorder Hypertension KRYSTAL (obstructive sleep apnea) Osteoarthritis Type 2 diabetes mellitus Venous insufficiency Home Medications metformin 1,000 mg PO BID 01/23/20 [History Last Taken 01/13/21] acetaminophen 650 mg PO Q6H PRN PRN tab 07/23/20 [Rx Last Taken Unknown] lisinopril 20 mg PO DAILY 10/29/20 [History Last Taken 01/13/21] sitagliptin 100 mg PO DAILY 10/29/20 [History Last Taken 01/13/21] apixaban 5 mg PO BID #60 tab.ds.pk 10/31/20 [Rx Last Taken 01/13/21 16:00] Handicap Placard #1 ea 12/05/20 [Rx Last Taken Unknown] Trulicity 3 mg SUBCUT TU 01/13/21 [History Last Taken 01/07/21] ampicillin-sulbactam 3 g IV Q6 #1 ea 01/21/21 [Rx Last Taken Unknown] doxycycline monohydrate 100 mg PO BID #84 tab 01/21/21 [Rx Last Taken Unknown] Allergy/AdvReac Type Severity Reaction Status Date / Time ketorolac [From Toradol] AdvReac Upset Verified 01/13/21 22:15 Stomach NSAIDS (Non-Steroidal AdvReac Upset Verified 01/13/21 22:15 Anti-Inflamma Stomach Family History Mother Hypertension Diabetes Heart disease Sister Hypertension Diabetes Crohns disease Brother Diabetes Surgical History History of cholecystectomy History of esophageal surgery Status post amputation of right foot through metatarsal bone Social History Smoking Status: Current every day smoker tobacco type: cigarettes alcohol intake: never substance use type: does not use what type of physical activity do you participate in: walking frequency: daily ROS ROS ED Constitutional Constitutional ED: Denies fever(s) Cardiovascular Cardiovascular: Denies chest pain Respiratory/Chest Respiratory/Chest: Denies dyspnea Gastrointestinal Gastrointestinal: Denies abdominal pain, nausea or vomiting Musculoskeletal Musculoskeletal: Reports other Details: Right foot pain Integumentary Denies rash Neurologic Neurologic: Denies headache(s) Psychiatric Psychiatric: Denies suicidal thoughts EXAM Physical Exam Const Vital Signs: 01/22/21 00:29 01/22/21 01:45 Temperature 98.4 F Temperature Source Temporal Pulse Rate 95 Respiratory Rate 18 18 Blood Pressure 166/86 H Blood Pressure Mean 112 Pulse Ox 95 Oxygen Delivery Method Room Air Positive well nourished and well developed General Appearance ED: well developed HEENT Reports normocephalic and head/scalp atraumatic Eyes PERRL and EOMs intact bilaterally Neck supple General: Negative for tenderness Chest Wall inspection of chest normal Resp normal respiratory effort and clear to auscultation bilaterally Cardio regular rate and regular rhythm no CVA tenderness Extremity Extremity Narrative: Right foot wound VAC in place. Dressing is sealed and no leakage is noted on wound VAC currently. Neuro oriented x3 Sensorium / Orientation: alert Psych mental status grossly normal MDM MDM MDM Narrative Medical decision making narrative: Discussed with Dr. Ramos. Recommends repeat x-ray and blood work. White count is 11.4. Right foot x-ray read by myself and radiology shows unchanged findings suggestive of neuropathic arthropathy and status post amputations. Cannot exclude osteomyelitis. On reevaluation, patient's wound VAC continues to be functioning in the emergency department. He feels improved and will follow-up with Dr. Ramos tomorrow. Lab Data Attestation: I reviewed the patient's lab results. Labs: Laboratory Results - last 24 hr 01/22/21 01/22/21 01:26 01:26 WBC 11.4 H RBC 4.79 Hgb 12.4 L Hct 39.4 L MCV 82.3 MCH 25.9 L MCHC 31.5 L RDW Std Deviation 46.7 H RDW Coeff of Maria Fernanda 15.5 H Plt Count 166 MPV 11.0 Immature Gran % (Auto) 2.400 H Neut % (Auto) 78.0 H Lymph % (Auto) 10.3 L [place] % (Auto) 6.5 Eos % (Auto) 2.4 Baso % (Auto) 0.4 Absolute Neuts (auto) 8.9 H Absolute Lymphs (auto) 1.18 Nucleated RBC % 0 Sodium 139 Potassium 3.5 Chloride 106 Carbon Dioxide 28.0 Anion Gap 5 BUN 16 Creatinine 1.08 Estim Creat Clear Calc 87.15 Est GFR (MDRD) Af Amer 93 Est GFR (MDRD) Non-Af 77 BUN/Creatinine Ratio 14.8 Glucose 113 H Calcium 8.6 Radiography Diagnostic Testing: Radiology Impression Foot X-Ray 01/22/21 01:15 IMPRESSION: Unchanged findings suggestive of neuropathic arthropathy and status post amputations at the level described above. Cannot exclude osteomyelitis. Correlation recommended. Electronically Signed: Theresa De Los Santos MD at 1:49 EDT , Service support , Discharge Plan Triage Chief Complaint: Wound Check ED Provider: Luiza Garcia Dx/Rx/DC Orders Clinical Impression: Visit for wound check Instructions: ED Wound Check (Infection) Prescriptions: No Action (DME) Handicap Placard See Rx Instructions .ROUTE .MEDSUPPLY Qty: 1 RF: 0 metformin 1,000 MG tablet 1,000 mg PO BID RF: 0 acetaminophen 325 MG tablet 650 mg PO Q6H PRN PRN (Reason: Pain Score 1-10/Temp > 100.7 F) RF: 0 lisinopril 20 MG tablet 20 mg PO DAILY RF: 0 sitagliptin 100 MG tablet 100 mg PO DAILY RF: 0 apixaban 5 MG tablets,dose pack 5 mg PO BID Qty: 60 RF: 1 Trulicity 3 mg/0.5 mL pen injector 3 mg SUBCUT TU RF: 0 doxycycline monohydrate 100 mg tablet 100 mg PO BID Qty: 84 RF: 0 ampicillin-sulbactam 3 gram Recon Soln 3 g IV Q6 Qty: 1 RF: 0 Primary Care Provider: Gavin Raymundo Referrals: Gavin Raymundo MD [Primary Care Provider] - Jesus Ramos DPM [STAFF PHYSICIAN] - Disposition Disposition: Home, Self Care
--- NOTE | 2021-01-22 01:15 | RAD_ITS ---
STUDY: X-RAY - RIGHT FOOT CLINICAL: Male, 50 years old. pain TECHNIQUE: 3 view(s) of the foot. COMPARISON: None. FINDINGS: Normal visualized talus and calcaneus. Destructive changes involving the cuneiform bones, partial destruction of the navicular and cuboid bone. Destructive changes involving the bases of the first second and third metatarsal bones. Status post amputation of the fourth and fifth metatarsals fourth and fifth toes. Status post amputation of the second toe from the mid distal proximal phalanx. Soft tissue swelling along the dorsum of the foot seen. RAD/Foot min 3 Views IMPRESSION: Unchanged findings suggestive of neuropathic arthropathy and status post amputations at the level described above. Cannot exclude osteomyelitis. Correlation recommended. Electronically Signed: Theresa De Los Santos MD at 1:49 EDT , Service support ,
[2021-01-22 01:39] LABS: Absolute Lymphocyte Count 1.18 X10^3/uL (0.83-4.51); Absolute Neutrophil Count 8.9 X10^3/uL (2.0-7.7); Basophil# 0.05 X10^3/uL; Basophil% 0.4 % (0-1); Eosinophil# 0.27 X10^3/uL; Eosinophils% 2.4 % (0-5); Hematocrit 39.4 % (40-54); Hemoglobin 12.4 g/dL (13.0-16.5); Lymphocyte # 1.18 X10^3/ul (0.83-4.51); Lymphocyte % 10.3 % (19-41); Mean Corp Hgb Conc 31.5 g/dL (32-36); Mean Corpuscular Hgb 25.9 pg (27.0-32.0); Mean Corpuscular Volume 82.3 fL (80-94); Monocyte# 0.74 X10^3/uL; Monocyte% 6.5 % (0-10); NRBC Flagged by Analyzer 0 % (0-5); Neutrophil # 8.91 X10^3/uL (2.7-7.7); Platelet Count 166 K/mm3 (150-450); RBC Distribution Width CV 15.5 % (11.6-14.6); RBC Distribution Width SD 46.7 fl (35.1-43.9); Red Blood Count 4.79 M/mm3 (4.6-6.2); White Blood Count 11.4 K/mm3 (4.4-11.0)
[2021-01-22 01:45] VITALS: RESP 18
[2021-01-22 01:45] LABS: Anion Gap 5 (5-15); BUN 16 mg/dL (7-18); BUN/Creat Ratio 14.8 RATIO (10-20); Calcium,Total 8.6 mg/dL (8.5-10.1); Chloride 106 mmol/L (98-107); Creatinine, Serum 1.08 mg/dL (0.70-1.30); EST Glomerular Filtration Rate 77 mL/min (>60); Est Glom Filt Rate - Afr Amer 93 mL/min (>60); Estimated Creatinine Clearance 87.15 ml/min; Glucose 113 mg/dL (74-106); Potassium 3.5 mmol/L (3.5-5.1); Sodium Level 139 mmol/L (136-145)
== END 2021-01-22 03:00 | disposition home or self-care (01) ==
PROVIDERS: Emergency Provider Emergency Medicine; PCP Internal Medicine
DX: Z48.00 Encounter for change or removal of nonsurgical wound dressing (principal); F17.210 Nicotine dependence, cigarettes, uncomplicated; Z89.431 Acquired absence of right foot; Z90.49 Acquired absence of other specified parts of digestive tract; E11.9 Type 2 diabetes mellitus without complications; G47.33 Obstructive sleep apnea (adult) (pediatric); I10 Essential (primary) hypertension; I87.2 Venous insufficiency (chronic) (peripheral); M19.90 Unspecified osteoarthritis, unspecified site; Z79.01 Long term (current) use of anticoagulants; Z79.1 Long term (current) use of non-steroidal anti-inflammatories (NSAID); Z79.84 Long term (current) use of oral hypoglycemic drugs
CPT/HCPCS: 73630; 80048; 85025; 99282; A4216

== ENCOUNTER 2021-02-04 08:30 | Outpatient (RCR) | payer MEDICAID, SELFPAY ==
[2021-01-29 13:10] VITALS: BP 120/67; PULSE 100; RESP 17; TEMP 36.3; BMI 47.7
--- NOTE | 2021-01-29 14:27 | PN.PCM_ITS ---
History of Present Illness Date of Service: 01/29/21 Chief Complaint: Right foot plantar lateral ulceration status post fourth and fifth ray partial amputation-healed History of Wound: Patient is a 50-year-old male who presents to the wound care center for follow-up of hospital visit after surgical debridement with Dr. Otoole on 01-15-21 including bone. He has been wearing a wound VAC. He was last seen by infectious disease on 01-22-21 in which MRSA was additionally identified in the adjacent wound in addition to his other organism growth in the bone. He is on IV Unasyn with a stop date of 02-26-21. He denies redness. His pain has increased to moderate level. Progress of Wound: stable Objective Data Objective Data Vital Signs: Vital Signs Temp Pulse Resp BP 97.4 F L 100 17 120/67 01/29/21 13:10 01/29/21 13:10 01/29/21 13:10 01/29/21 13:10 Body Mass Index (BMI) 47.7 Physical Exam Const alert and oriented x3 General Appearance: cooperative HEENT normocephalic Extremity Extremity Narrative: No calf tenderness Diminished pulses Muscle wasting noted Charcot foot with rocker-bottom deformity and fourth and fifth ray resection Compartments remain soft to palpate right lower extremity General Extremity: edema and no tenderness to palpation of joints or extremities; Negative for cyanosis Skin Skin Narrative: no purulence, no streaking, no erythema. There is peripheral ulcer maceration with a faint odor. There is devitalized subcutaneous and plantar muscle/tendon tissue. There is also positive probe to deep structures. No bogginess or fluctuance. General Skin Exam: Negative for erythema Neuro Neuro Narrative: lack of normal epicritic sensation via light touch is consistent with neuropathy status Psych cooperative and affect normal Debridement Note Debridement Note Post-Debridement Measurements and Additional Note: Post-Debridement Measurements/Treatment WC - Nurse 1 - General Ulcer Assessment Start: 01/29/21 13:06 Freq: Status: Active Protocol: NIGEL Activity Type Activity Date Activity User E-Sign Co-Sign Detail Recorded Client Recorded Date Recorded By Document 01/29/21 13:10 ML [id number] 01/29/21 13:30 ML Edit Result 01/29/21 13:10 ML (1) [id number] 01/29/21 13:36 ML Edit Result 01/29/21 13:10 ML (2) [id number] 01/29/21 13:36 ML (1) Type of service => Initial Visit Arrival Mode => Ambulatory Transfer Assistance => None Patient Identification Verified (Name & => Yes ) Patient Requires Transmission-Based => No Precautions Safety Precautions => NA Temperature (97.8 F-99.1 F) => 97.4 F L Temperature Source => Temporal Respiratory Rate (12-18) => 17 Respiratory rate source => Observation Have you changed medications since your => No last visit? Any new allergies or adverse reactions => No Had a fall/change in ADL's that may => No increase risk of falls Signs or symptoms of abuse and/or => No neglect since last visit Have you been in the hospital since your => No last visit? Has dressing in place as prescribed => Yes Has compression in place as prescribed => N/A Has offloadiing in place as prescribed => N/A Experienced any changes in pain level or => No management Left Footwear => Regular Shoe Right Footwear => No Footwear (2) Pulse Rate (60-100) => 100 Pulse Location => Monitor Blood Pressure (90/60-120/80) => 120/67 Blood Pressure Mean (mm Hg) => 84 Source => Monitor Position => Sitting Blood Pressure Location => Left Arm Is Patient Pain Free? => Yes 01/29/21 13:10 WC - Today's Visit Information Type of service Initial Visit Arrival Mode Ambulatory Transfer Assistance None Patient Identification Verified (Name & Yes ) Patient Requires Transmission-Based No Precautions Safety Precautions NA Height and Weight Body Mass Index (BMI) 47.7 BMI Classification Obese Vital Signs Temperature (97.8 F-99.1 F) 97.4 F L Temperature Source Temporal Pulse Rate (60-100) 100 Pulse Location Monitor Respiratory Rate (12-18) 17 Respiratory rate source Observation Blood Pressure (90/60-120/80) 120/67 Blood Pressure Mean (mm Hg) 84 Source Monitor Position Sitting Blood Pressure Location Left Arm History Since Last Visit- (Skip if this is Patient's initial visit) Have you changed medications since your No last visit? Any new allergies or adverse reactions No Had a fall/change in ADL's that may No increase risk of falls Signs or symptoms of abuse and/or No neglect since last visit Have you been in the hospital since your No last visit? Has dressing in place as prescribed Yes Has compression in place as prescribed N/A Has offloadiing in place as prescribed N/A Experienced any changes in pain level or No management Left Footwear Regular Shoe Right Footwear No Footwear Pain Scale: 0-10 Numeric Is Patient Pain Free? Yes WC - Nurse 1 - General Ulcer Measurement Start: 01/29/21 13:06 Freq: Status: Active Protocol: Activity Type Activity Date Activity User E-Sign Co-Sign Detail Recorded Client Recorded Date Recorded By Document 01/29/21 13:10 ML [id number] 01/29/21 13:30 ML 01/29/21 13:10 Wound Center Nurse 1 #5 RIGHT LATERAL FOOT POST OP -Current Size (cm) - Length 1 -Current Size (cm) - Width 0.6 -Current Size (cm) - Depth 0.7 -Total Square Cm 0.6 -Epithelialization Medium 34-66% -Exudate Amt Medium -Exudate Type Serosanguineous -Wound Margin Distinct, Outline Attached -Granulation Amt Medium (34-66%) -Necrosis Amt Medium (34-66%) -Necrotic Tissue Type Adherent Slough -Texture (Michelle-wound Skin Appearance) Callus -Moisture (Michelle-wound Skin Appearance) Maceration,Dry/ Scaly -Color (Michelle-wound Skin Appearance) Assessed -Temperature (Michelle-wound Skin No Abnormality Appearance) (Pt Warm) -Ulcer Cleansing Wound Cleanser -Foul Odor after Cleansing Yes -Anesthetic Used 4% Lidocaine Solution #4 R PLANTAR POST OP -Current Size (cm) - Length 3 -Current Size (cm) - Width 4 -Current Size (cm) - Depth 1.7 -Total Square Cm 12 -Epithelialization Medium 34-66% -Tunneling Position (O'clock) 11 -Tunneling Distance (cm) 1.1 -Exudate Amt Large -Exudate Type Serosanguineous -Wound Margin Distinct, Outline Attached -Granulation Amt Medium (34-66%) -Slough/Fibrin Yes -Necrosis Amt Medium (34-66%) -Necrotic Tissue Type Adherent Slough -Texture (Michelle-wound Skin Appearance) Assessed -Moisture (Michelle-wound Skin Appearance) Assessed -Color (Imchelle-wound Skin Appearance) Assessed -Temperature (Michelle-wound Skin No Abnormality Appearance) (Pt Warm) -Tenderness on Palpation (Michelle-wound No Skin Appearance) -Ulcer Cleansing Wound Cleanser -Foul Odor after Cleansing Yes -Anesthetic Used 4% Lidocaine Solution WC - Nurse 2 - General Ulcer CM Notes Start: 01/29/21 13:06 Freq: Status: Active Protocol: Activity Type Activity Date Activity User E-Sign Co-Sign Detail Recorded Client Recorded Date Recorded By Document 01/29/21 14:10 JERSON [id number] 01/29/21 14:17 JERSON 01/29/21 14:10 Wound Center Nurse 2 #5 RIGHT LATERAL FOOT POST OP -Time 14:11 -Correct Patient Yes -Correct Side, Site, Position Yes -Correct Procedure Yes -Procedure Performed Yes -Type of Procedure Debridement -Clinical Debridement Subcutaneous -Tissue Removed Subcutaneous -Post Debridement (cm) - Length 1 -Post Debridement (cm) - Width 0.7 -Post Debridement (cm) - Depth 0.7 -Total Square (Post) (cm) 0.7 -Area of Debridement (cm) - Length 1 -Area of Debridement (cm) - Width 0.7 -Total Square (Area) (cm) 0.7 -Tunneling No -Undermining/Tunneling No -Circular Undermining No -Wound/Ulcer Outcome Not Healed -Ulcer Cleansing Rinsed/ Irrigated with Saline -Foul Odor after Cleansing No -Bioengineered Tissue No -Bleeding Controlled with Pressure -Offloading Yes -Type of Offloading Surgical Shoe -Treatment Response Procedure Tolerated Well -Debridement - Subq, 1st 20sq cm Yes #4 R PLANTAR POST OP -Time 14:14 -Correct Patient Yes -Correct Side, Site, Position Yes -Correct Procedure Yes -Procedure Performed Yes -Type of Procedure Debridement -Clinical Debridement Muscle / Fascia -Tissue Removed Muscle -Post Debridement (cm) - Length 3.2 -Post Debridement (cm) - Width 4.2 -Post Debridement (cm) - Depth 2 -Total Square (Post) (cm) 13.44 -Area of Debridement (cm) - Length 3.2 -Area of Debridement (cm) - Width 4.2 -Total Square (Area) (cm) 13.44 -Tunneling No -Undermining/Tunneling No -Circular Undermining No -Wound/Ulcer Outcome Not Healed -Ulcer Cleansing Rinsed/ Irrigated with Saline -Foul Odor after Cleansing No -Bioengineered Tissue No -Bleeding Controlled with Pressure -Offloading Yes -Type of Offloading Surgical Shoe -Treatment Response Procedure Tolerated Well -Debridement - Muscle / Fascia, 1st Yes 20sq cm Pain Scale: 0-10 Numeric Is Patient Pain Free? 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: CODE(S): L97.414 - Non-pressure chronic ulcer of right heel and midfoot with necrosis of bone (2) Charcot arthropathy of midfoot: CODE(S): M14.679 - Charcot's joint, unspecified ankle and foot (3) Venous insufficiency: CODE(S): I87.2 - Venous insufficiency (chronic) (peripheral) (4) History of amputation of foot: CODE(S): Z89.439 - Acquired absence of unspecified foot (5) Bilateral lower extremity edema: CODE(S): R60.0 - Localized edema (6) Type 2 diabetes mellitus with diabetic polyneuropathy: CODE(S): E11.42 - Type 2 diabetes mellitus with diabetic polyneuropathy (7) Osteomyelitis of left foot: CODE(S): M86.9 - Osteomyelitis, unspecified QUALIFIERS: Osteomyelitis type: subacute Qualified Code(s): M86.272 - Subacute osteomyelitis, left ankle and foot (8) Ulcer of right foot with necrosis of muscle: CODE(S): L97.513 - Non-pressure chronic ulcer of other part of right foot with necrosis of muscle PLAN: I reviewed and discussed his case. It is noted that he is s/p debridement right foot on 01/15/[address] Otoole including bone. He has since been treated with a wound VAC and offloading. Debridement was performed today in the clinical setting including excisional muscle/tendon tissue. This is further documented in the nursing panel. Patient to remain nonweightbearing to the right lower extremity. Use wheelchair or knee walker. There are some maceration and mild odor noted. I recommend a break from the wound VAC this upcoming week. I recommend daily dressing changes with Dakin wet-to-dry gauze. To wash the peripheral area with antibacterial soap and water also. Reviewed culture results. Wound cultures demonstrate group B streptococcus, MRSA, and corynebacterium from the foot wound. There is also noted to be strep agalactiae noted in his blood culture. OR cultures of the cuboid bone was positive for beta Streptococcus and corynebacterium. MRI was reviewed showing both Charcot changes and concern for osteomyelitis of the plantar cuboid area wi th ulcerations. ID recs appreciated. PICC line placed. Unasyn 3 g q 8 hrs with stop date 02/26/21 and serial labs recommended. Doxycycline was also added. He is at risk for further amputation of foot or leg. He has a [place] walker ready at [employer] ([email or web address] once healed. I recommend [place] for nutritional supplementation to optimize healing. To follow-up with the wound healing center next week with Dr. Otoole or call the office sooner if he has any development of local or systemic illness progression. I answered all his questions. Note: [employer] speech recognition guidance services coordinator software was used to create portions of this document. Sound-alike and misspelled words, as well as other guidance services coordinator errors may be contained in the documentation.
[2021-02-04 08:12] VITALS: BP 144/75; PULSE 95; RESP 22; TEMP 37; BMI 47.7
--- NOTE | 2021-02-04 09:07 | PCM.WC.PN ---
History of Present Illness Date of Service: 02/04/21 Chief Complaint: Right foot plantar lateral ulceration status post fourth and fifth ray partial amputation-healed History of Wound: Patient is a 50-year-old male who presents to the wound care center for follow-up of hospital visit after surgical debridement with Dr. Otoole on 01-15-21 including bone. He has been wearing a wound VAC. Patient was discharged from the hospital on doxycycline and Augmentin per infectious disease. He denies redness. His pain has increased to moderate level. Patient is continue wound VAC therapy with assistance of home health care Progress of Wound: Improved Subjective Subjective Patient seen and examined resting comfortably. Patient denies any new pedal complaints. Patient denies any nausea, fever, chills, chest pain, shortness of breath, cough, streaking, purulence, vomiting. Objective Data Objective Data Vital Signs: Vital Signs Temp Pulse Resp BP 98.6 F 95 22 H 144/75 H 02/04/21 08:12 02/04/21 08:12 02/04/21 08:12 02/04/21 08:12 Body Mass Index (BMI) 47.7 Physical Exam Const alert and oriented x3 General Appearance: cooperative HEENT normocephalic Extremity Extremity Narrative: No calf tenderness Diminished pulses Muscle wasting noted Charcot foot with rocker-bottom deformity and fourth and fifth ray resection Compartments remain soft to palpate right lower extremity General Extremity: edema and no tenderness to palpation of joints or extremities; Negative for cyanosis Skin Skin Narrative: no purulence, no streaking, no erythema. Periwound maceration has resolved. There is devitalized subcutaneous and plantar muscle/tendon tissue. There is also positive probe to deep structures. No bogginess or fluctuance. Total lateral and plantar foot ulcerations no longer communicate. No signs of infection. Plantar wound goes to the level of muscle and lateral wound goes to level of fascia. General Skin Exam: Negative for erythema Neuro Neuro Narrative: lack of normal epicritic sensation via light touch is consistent with neuropathy status Psych cooperative and affect normal Debridement Note Debridement Note Post-Debridement Measurements and Additional Note: Post-Debridement Measurements/Treatment SANDEEP - Nurse 1 - General Ulcer Assessment Start: 01/29/21 13:06 Freq: Status: Active Protocol: NIGEL Activity Type Activity Date Activity User E-Sign Co-Sign Detail Recorded Client Recorded Date Recorded By Document 01/29/21 13:10 ML [id number] 01/29/21 13:30 ML Edit Result 01/29/21 13:10 ML (1) [id number] 01/29/21 13:36 ML Edit Result 01/29/21 13:10 ML (2) [id number] 01/29/21 13:36 ML Document 02/04/21 08:12 DL [id number] 02/04/21 08:27 DL (1) Type of service => Initial Visit Arrival Mode => Ambulatory Transfer Assistance => None Patient Identification Verified (Name & => Yes ) Patient Requires Transmission-Based => No Precautions Safety Precautions => NA Temperature (97.8 F-99.1 F) => 97.4 F L Temperature Source => Temporal Respiratory Rate (12-18) => 17 Respiratory rate source => Observation Have you changed medications since your => No last visit? Any new allergies or adverse reactions => No Had a fall/change in ADL's that may => No increase risk of falls Signs or symptoms of abuse and/or => No neglect since last visit Have you been in the hospital since your => No last visit? Has dressing in place as prescribed => Yes Has compression in place as prescribed => N/A Has offloadiing in place as prescribed => N/A Experienced any changes in pain level or => No management Left Footwear => Regular Shoe Right Footwear => No Footwear (2) Pulse Rate (60-100) => 100 Pulse Location => Monitor Blood Pressure (90/60-120/80) => 120/67 Blood Pressure Mean (mm Hg) => 84 Source => Monitor Position => Sitting Blood Pressure Location => Left Arm Is Patient Pain Free? => Yes 01/29/21 02/04/21 13:10 08:12 WC - Today's Visit Information Type of service Initial Visit Follow-up Visit (Physician/REGISTRY RN ) Arrival Mode Ambulatory Wheelchair Transfer Assistance None None Patient Identification Verified (Name & Yes Yes ) Patient Requires Transmission-Based No No Precautions Safety Precautions NA Finger Stick Blood Sugar(mg/dl) (if 98 indicated): Blood Sugar Stated by Patient Height and Weight Body Mass Index (BMI) 47.7 47.7 BMI Classification Obese Obese Vital Signs Temperature (97.8 F-99.1 F) 97.4 F L 98.6 F Temperature Source Temporal Temporal Pulse Rate (60-100) 100 95 Pulse Location Monitor Monitor Respiratory Rate (12-18) 17 22 H Respiratory rate source Observation Observation Blood Pressure (90/60-120/80) 120/67 144/75 H Blood Pressure Mean (mm Hg) 84 98 Source Monitor Monitor Position Sitting Blood Pressure Location Left Arm History Since Last Visit- (Skip if this is Patient's initial visit) Have you changed medications since your No No last visit? Any new allergies or adverse reactions No No Had a fall/change in ADL's that may No No increase risk of falls Signs or symptoms of abuse and/or No No neglect since last visit Have you been in the hospital since your No No last visit? Has dressing in place as prescribed Yes Yes Has compression in place as prescribed N/A Yes Has offloadiing in place as prescribed N/A Yes Experienced any changes in pain level or No No management Left Footwear Regular Shoe Right Footwear No Footwear Surgical Shoe with pressure relief insole Pain Scale: 0-10 Numeric Is Patient Pain Free? Yes Yes - Nurse 1 - General Ulcer Measurement Start: 01/29/21 13:06 Freq: Status: Active Protocol: Activity Type Activity Date Activity User E-Sign Co-Sign Detail Recorded Client Recorded Date Recorded By Document 01/29/21 13:10 ML [id number] 01/29/21 13:30 ML Document 02/04/21 08:12 DL [id number] 02/04/21 08:27 DL 01/29/21 02/04/21 13:10 08:12 Wound Center Nurse 1 #5 RIGHT LATERAL FOOT POST OP -Combined with other wound No -Current Size (cm) - Length 1 1.2 -Current Size (cm) - Width 0.6 0.8 -Current Size (cm) - Depth 0.7 0.7 -Total Square Cm 0.6 0.96 -Photo Taken No -Epithelialization Medium 34-66% None Present -Tunneling No -Undermining/Tunneling No -Exudate Amt Medium Medium -Exudate Type Serosanguineous Serosanguineous -Wound Margin Distinct, Thickened & Outline Rolled Under Attached -Granulation Amt Medium (34-66%) Medium (34-66%) -Granulation Quality [place] -Slough/Fibrin Yes -Necrosis Amt Medium (34-66%) Medium (34-66%) -Necrotic Tissue Type Adherent Slough Adherent Slough -Structure Exposed N/A -Texture (Michelle-wound Skin Appearance) Callus Assessed, Localized Edema -Moisture (Michelle-wound Skin Appearance) Maceration,Dry/ Assessed,Dry/ Scaly Scaly -Color (Michelle-wound Skin Appearance) Assessed No Abnormality, Assessed -Temperature (Michelle-wound Skin No Abnormality No Abnormality Appearance) (Pt Warm) (Pt Warm) -Tenderness on Palpation (Michelle-wound Yes Skin Appearance) -Ulcer Cleansing Wound Cleanser soap and water -Foul Odor after Cleansing Yes No -Anesthetic Used 4% Lidocaine 4% Lidocaine Solution Solution #4 R PLANTAR POST OP -Combined with other wound No -Current Size (cm) - Length 3 3.0 -Current Size (cm) - Width 4 3.8 -Current Size (cm) - Depth 1.7 1.4 -Total Square Cm 12 11.40 -Photo Taken No -Epithelialization Medium 34-66% None Present -Tunneling No -Tunneling Position (O'clock) 11 -Tunneling Distance (cm) 1.1 -Undermining/Tunneling No -Circular Undermining No -Exudate Amt Large Medium -Exudate Type Serosanguineous Serosanguineous -Wound Margin Distinct, Flat & Intact Outline Attached -Granulation Amt Medium (34-66%) Medium (34-66%) -Granulation Quality [place] -Slough/Fibrin Yes Yes -Necrosis Amt Medium (34-66%) Medium (34-66%) -Necrotic Tissue Type Adherent Slough Adherent Slough -Structure Exposed N/A -Texture (Michelle-wound Skin Appearance) Assessed Assessed,Callus ,Localized Edema -Moisture (Michelle-wound Skin Appearance) Assessed Assessed, Maceration -Color (Michelle-wound Skin Appearance) Assessed No Abnormality, Assessed -Temperature (Michelle-wound Skin No Abnormality No Abnormality Appearance) (Pt Warm) (Pt Warm) -Tenderness on Palpation (Michelle-wound No Yes Skin Appearance) -Ulcer Cleansing Wound Cleanser soap and water -Foul Odor after Cleansing Yes No -Anesthetic Used 4% Lidocaine 4% Lidocaine Solution Solution Lower Limb Edema Present No WC - Nurse 2 - General Ulcer CM Notes Start: 01/29/21 13:06 Freq: Status: Active Protocol: Activity Type Activity Date Activity User E-Sign Co-Sign Detail Recorded Client Recorded Date Recorded By Document 01/29/21 14:10 JF [id number] 01/29/21 14:17 JF Document 02/04/21 08:50 JF [id number] 02/04/21 08:54 01/29/21 02/04/21 14:10 08:50 Wound Center Nurse 2 #5 RIGHT LATERAL FOOT POST OP -Time 14:11 08:51 -Correct Patient Yes Yes -Correct Side, Site, Position Yes Yes -Correct Procedure Yes Yes -Procedure Performed Yes Yes -Type of Procedure Debridement Debridement -Clinical Debridement Subcutaneous Subcutaneous -Tissue Removed Subcutaneous Subcutaneous -Post Debridement (cm) - Length 1 1.1 -Post Debridement (cm) - Width 0.7 0.7 -Post Debridement (cm) - Depth 0.7 0.6 -Total Square (Post) (cm) 0.7 0.77 -Area of Debridement (cm) - Length 1 1.1 -Area of Debridement (cm) - Width 0.7 0.7 -Total Square (Area) (cm) 0.7 0.77 -Tunneling No No -Undermining/Tunneling No No -Circular Undermining No No -Wound/Ulcer Outcome Not Healed Not Healed -Ulcer Cleansing Rinsed/ Rinsed/ Irrigated with Irrigated with Saline Saline -Foul Odor after Cleansing No No -Bioengineered Tissue No No -Bleeding Controlled with Pressure Pressure -Offloading Yes Yes -Type of Offloading Surgical Shoe Surgical Shoe -Treatment Response Procedure Procedure Tolerated Well Tolerated Well -Debridement - Subq, 1st 20sq cm Yes Yes #4 R PLANTAR POST OP -Time 14:14 08:52 -Correct Patient Yes Yes -Correct Side, Site, Position Yes Yes -Correct Procedure Yes Yes -Procedure Performed Yes Yes -Type of Procedure Debridement Debridement -Clinical Debridement Muscle / Fascia Subcutaneous -Tissue Removed Muscle Subcutaneous -Post Debridement (cm) - Length 3.2 3.1 -Post Debridement (cm) - Width 4.2 3.5 -Post Debridement (cm) - Depth 2 2 -Total Square (Post) (cm) 13.44 10.85 -Area of Debridement (cm) - Length 3.2 3.1 -Area of Debridement (cm) - Width 4.2 3.5 -Total Square (Area) (cm) 13.44 10.85 -Tunneling No No -Undermining/Tunneling No No -Circular Undermining No No -Wound/Ulcer Outcome Not Healed Not Healed -Ulcer Cleansing Rinsed/ Rinsed/ Irrigated with Irrigated with Saline Saline -Foul Odor after Cleansing No No -Bioengineered Tissue No No -Bleeding Controlled with Pressure Pressure -Offloading Yes Yes -Type of Offloading Surgical Shoe Surgical Shoe -Treatment Response Procedure Procedure Tolerated Well Tolerated Well -Debridement - Subq, 1st 20sq cm No -Debridement - Muscle / Fascia, 1st Yes 20sq cm Pain Scale: 0-10 Numeric Is Patient Pain Free? Yes - Nurse 3 - General Ulcer D/C NN Start: 01/29/21 13:06 Freq: Status: Active Protocol: Activity Type Activity Date Activity User E-Sign Co-Sign Detail Recorded Client Recorded Date Recorded By Document 01/29/21 14:41 TOÑA [id number] 01/29/21 14:42 TOÑA 01/29/21 14:41 Wound Care Nurse 3 #5 RIGHT LATERAL FOOT POST OP -Ulcer Cleansing Rinsed/ Irrigated with Saline -Other Dressing wet to dry -Primary Dressing Covered/Secured with Dry Gauze, Secured with Tape #4 R PLANTAR POST OP -Other Dressing wet to dry -Primary Dressing Covered/Secured with Dry Gauze, Secured with Tape Left -Compression Wrap Jens Wrap Pain Scale: 0-10 Numeric Is Patient Pain Free? Yes - Visit Discharge Discharge Condition Stable Ambulatory Status Wheelchair Transportation Private Auto Wound debrided: lateral foot Laterality: Right Wound Grade/Stage: Sams 3 Type of Debridement: Excisional debridement Anesthesia Used: 4% Lidocaine Solution Depth: in the subcutaneous layer Percentage of wound debrided: 100 Instrument Used: 3mm curette Tissue Removed: includes fibrous, devitalized, biofilm, callus and slough tissue Severity: Fat Layer Exposed Amount of bleeding with debridement: Mild Bleeding Controlled with: Pressure Patient tolerated procedure: Patient tolerated procedure well Additional Wound Wound debrided: Plantar foot Laterality: Right Type of Debridement: Excisional debridement Anesthesia Used: 4% Lidocaine Solution Depth: to muscle Percentage of wound debrided: 100 Instrument Used: 3mm curette Tissue Removed: Includes fibrous, devitalized, biofilm, callus and slough tissue Severity: Necrosis of Muscle Amount of bleeding with debridement: Mild Bleeding Controlled with: Pressure Patient tolerated procedure: Patient tolerated procedure well Assessment/Plan Assessment/Plan (1) 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: CODE(S): L97.414 - Non-pressure chronic ulcer of right heel and midfoot with necrosis of bone (2) Charcot arthropathy of midfoot: CODE(S): M14.679 - Charcot's joint, unspecified ankle and foot (3) Venous insufficiency: CODE(S): I87.2 - Venous insufficiency (chronic) (peripheral) (4) History of amputation of foot: CODE(S): Z89.439 - Acquired absence of unspecified foot (5) Bilateral lower extremity edema: CODE(S): R60.0 - Localized edema (6) Type 2 diabetes mellitus with diabetic polyneuropathy: CODE(S): E11.42 - Type 2 diabetes mellitus with diabetic polyneuropathy (7) Osteomyelitis of left foot: CODE(S): M86.9 - Osteomyelitis, unspecified QUALIFIERS: Osteomyelitis type: subacute Qualified Code(s): M86.272 - Subacute osteomyelitis, left ankle and foot (8) Ulcer of right foot with necrosis of muscle: CODE(S): L97.513 - Non-pressure chronic ulcer of other part of right foot with necrosis of muscle PLAN: Patient seen and examined. Wounds are noted to have improved since last seen. I reviewed and discussed his case. It is noted that he is s/p debridement right foot on 01/15/[address] Otoole including bone. He has since been treated with a wound VAC and offloading. Debridement was performed today in the clinical setting including excisional muscle/tendon tissue to the plantar wound and subcu to the lateral wound. This is further documented in the nursing panel. Patient to remain nonweightbearing to the right lower extremity. Use wheelchair or knee walker. Patient to continue 3 times a week wound VAC changes. Discussed doing bridging to the dorsal foot. Discussed washing area prior to reapplication. Reviewed culture results. Wound cultures demonstrate group B streptococcus, MRSA, and corynebacterium from the foot wound. There is also noted to be strep agalactiae noted in his blood culture. OR cultures of the cuboid bone was positive for beta Streptococcus and corynebacterium. MRI was reviewed showing both Charcot changes and concern for osteomyelitis of the plantar cuboid area with ulcerations. Patient is noted to be taking doxycycline and Augmentin per infectious disease, Dr. Soto. He is at risk for further amputation of foot or leg. He has a CABAZON walker ready at [employer] once healed. I recommend [facility] for nutritional supplementation to optimize healing. All questions answered We will apply for TheraSkin wound graft as I recommend advanced wound graft therapy in order to speed healing process To follow-up in 1 week Note: [employer] speech recognition regional clinical research associate software was used to create portions of this document. Sound-alike and misspelled words, as well as other regional clinical research associate errors may be contained in the documentation.
== END 2021-02-08 23:59 ==
LOC: WC 08:30
PROVIDERS: PCP Internal Medicine; Visit Provider Podiatrist Foot & Ankle Surgery
DX: E11.621 Type 2 diabetes mellitus with foot ulcer (principal); L97.513 Non-pressure chronic ulcer of other part of right foot with necrosis of muscle; L97.414 Non-pressure chronic ulcer of right heel and midfoot with necrosis of bone; M86.272 Subacute osteomyelitis, left ankle and foot; M14.679 Charcot's joint, unspecified ankle and foot; I87.2 Venous insufficiency (chronic) (peripheral); E11.42 Type 2 diabetes mellitus with diabetic polyneuropathy; R60.0 Localized edema; Z89.439 Acquired absence of unspecified foot; Z98.890 Other specified postprocedural states
CPT/HCPCS: 11042; 11043; 97605; 99213; G0463

== ENCOUNTER 2021-03-11 10:00 | Outpatient (RCR) | payer MEDICAID, SELFPAY ==
[2021-02-09 00:38] VITALS: BP 144/75; PULSE 95; RESP 22; TEMP 37
[2021-02-11 09:15] VITALS: BP 135/69; PULSE 88; RESP 18; TEMP 36.6; BMI 47.7
[2021-02-11 13:18] LABS: M R Staph aureus DNA By PCR Negative (Negative); Probe Check PASS; Specimen Processing Control PASS; Staph aureus DNA By PCR NEGATIVE (Negative)
--- NOTE | 2021-02-11 14:01 | PN.PCM_ITS ---
History of Present Illness Date of Service: 02/11/21 Chief Complaint: Right foot plantar lateral ulceration status post fourth and fifth ray partial amputation-healed History of Wound: Patient is a 50-year-old male who presents to the wound care center for follow-up of hospital visit after surgical debridement with Dr. Otoole on 01-15-21 including bone. He has been wearing a wound VAC. Patient was discharged from the hospital on doxycycline and Augmentin per infectious disease. He denies redness. His pain has increased to moderate level. Patient is continue wound VAC therapy with assistance of home health care. Patient has obtained a knee scooter as well as an electric scooter to be able to offload his ulceration site Progress of Wound: Worsened as wound now probes to bone Subjective Subjective Patient seen and examined resting comfortably. Patient denies any new pedal complaints. Patient denies any nausea, fever, chills, chest pain, shortness of breath, cough, streaking, purulence, vomiting. Objective Data Objective Data Vital Signs: Vital Signs Temp Pulse Resp BP 97.8 F 88 18 135/69 H 02/11/21 09:15 02/11/21 09:15 02/11/21 09:15 02/11/21 09:15 Oxygen Delivery Method Room Air Body Mass Index (BMI) 47.7 Lab / Micro Data Micro: Microbiology 02/11/21 09:47 Wound - Heel, Left Gram Stain - Final 02/11/21 09:47 Wound - Heel, Left Wound Culture - Preliminary Streptococcus group B Gram positive carlos 02/11/21 09:47 Wound - Heel, Left Anaerobic Culture - Preliminary Checking for anaerobes, further studies to follow. Physical Exam Narrative Const alert and oriented x3 General Appearance: cooperative HEENT normocephalic Extremity Extremity Narrative: No calf tenderness Diminished pulses Compartments remain soft to palpate right lower extremity General Extremity: edema and no tenderness to palpation of joints or extremities; Negative for cyanosis Skin Skin Narrative: Ulceration noted to plantar and lateral right foot with plantar foot probing to bone and lateral to subcu no purulence, no streaking, no erythema. Periwound maceration has worsened to plantar foot. There is devitalized subcutaneous and plantar muscle/tendon tissue. There is also positive probe to deep structures with more bone exposed noted today. No bogginess or fluctuance. Total lateral and plantar foot ulcerations no longer communicate. No signs of infection. Increased serous drainage noted from plantar foot which was cultured. General Skin Exam: Negative for erythema MSK Muscle wasting noted Charcot foot with rocker-bottom deformity and fourth and fifth ray resection right Neuro Neuro Narrative: lack of normal epicritic sensation via light touch is consistent with neuropathy status Psych cooperative and affect normal Debridement Note Debridement Note Post-Debridement Measurements and Additional Note: Post-Debridement Measurements/Treatment WC - Nurse 1 - General Ulcer Assessment Start: 02/11/21 09:15 Freq: Status: Active Protocol: NIGEL Activity Type Activity Date Activity User E-Sign Co-Sign Detail Recorded Client Recorded Date Recorded By Document 02/11/21 09:15 MW [id number] 02/11/21 09:23 MW 02/11/21 09:15 WC - Today's Visit Information Type of service Follow-up Visit (Physician/[employer] HELPER ) Arrival Mode Ambulatory, Other Arrival Mode (Other) knee walker Transfer Assistance None Accompanied by self Patient Identification Verified (Name & Yes ) Patient Requires Transmission-Based No Precautions Safety Precautions NA Finger Stick Blood Sugar(mg/dl) (if 102 indicated): Blood Sugar Stated by Patient Height and Weight Body Mass Index (BMI) 47.7 BMI Classification Obese Vital Signs Temperature (97.8 F-99.1 F) 97.8 F Temperature Source Temporal Pulse Rate (60-100) 88 Pulse Location Monitor Respiratory Rate (12-18) 18 Respiratory rate source Observation Oxygen Delivery Method Room Air Blood Pressure (90/60-120/80) 135/69 H Blood Pressure Mean (mm Hg) 91 Source Monitor Position Sitting Blood Pressure Location Left Arm History Since Last Visit- (Skip if this is Patient's initial visit) Have you changed medications since your No last visit? Any new allergies or adverse reactions No Had a fall/change in ADL's that may No increase risk of falls Signs or symptoms of abuse and/or No neglect since last visit Have you been in the hospital since your No last visit? Has dressing in place as prescribed No Has compression in place as prescribed Yes Has offloadiing in place as prescribed N/A Experienced any changes in pain level or No management Left Footwear Regular Shoe Right Footwear Surgical Shoe with pressure relief insole Pain Scale: 0-10 Numeric Is Patient Pain Free? Yes SANDEEP - Nurse 1 - General Ulcer Measurement Start: 02/11/21 09:15 Freq: Status: Active Protocol: Activity Type Activity Date Activity User E-Sign Co-Sign Detail Recorded Client Recorded Date Recorded By Document 02/11/21 09:15 MW [id number] 02/11/21 09:23 MW Edit Result 02/11/21 09:15 MW (1) [id number] 02/11/21 09:25 MW (1) #4 R PLANTAR POST OP - Tunneling No => Yes - Tunneling Position (O'clock) => 10 - Tunneling Distance (cm) => 1.8 02/11/21 09:15 Wound Center Nurse 1 #5 RIGHT LATERAL FOOT POST OP -Combined with other wound No -Current Size (cm) - Length 0.7 -Current Size (cm) - Width 0.2 -Current Size (cm) - Depth 0.7 -Total Square Cm 0.14 -Photo Taken No -Epithelialization Small 1-33% -Undermining/Tunneling No -Circular Undermining No -Exudate Amt Small -Exudate Type Serosanguineous -Wound Margin Flat & Intact -Granulation Amt Large (67-100%) -Granulation Quality [place] -Slough/Fibrin Yes -Necrosis Amt Small (1-33%) -Necrotic Tissue Type Adherent Slough -Structure Exposed N/A -Texture (Michelle-wound Skin Appearance) Assessed, Scarring -Moisture (Michelle-wound Skin Appearance) No Abnormality, Assessed -Color (Michelle-wound Skin Appearance) Assessed, Hemosiderin Staining -Temperature (Michelle-wound Skin No Abnormality Appearance) (Pt Warm) -Tenderness on Palpation (Michelle-wound Yes Skin Appearance) -Ulcer Cleansing soap and water -Foul Odor after Cleansing No -Anesthetic Used 4% Lidocaine Solution #4 R PLANTAR POST OP -Combined with other wound No -Current Size (cm) - Length 2.8 -Current Size (cm) - Width 3.6 -Current Size (cm) - Depth 1.8 -Total Square Cm 10.08 -Photo Taken No -Epithelialization None Present -Tunneling Yes -Tunneling Position (O'clock) 10 -Tunneling Distance (cm) 1.8 -Undermining/Tunneling No -Circular Undermining No -Exudate Amt Medium -Exudate Type Purulent -Wound Margin Thickened -Granulation Amt Large (67-100%) -Granulation Quality Red -Slough/Fibrin Yes -Necrosis Amt Small (1-33%) -Necrotic Tissue Type Adherent Slough -Structure Exposed N/A -Texture (Michelle-wound Skin Appearance) Assessed,Callus ,Scarring -Moisture (Michelle-wound Skin Appearance) Assessed,Dry/ Scaly -Color (Michlele-wound Skin Appearance) Assessed, Hemosiderin Staining -Temperature (Michelle-wound Skin No Abnormality Appearance) (Pt Warm) -Tenderness on Palpation (Michelle-wound Yes Skin Appearance) -Ulcer Cleansing soap and water -Foul Odor after Cleansing No -Anesthetic Used 4% Lidocaine Solution Lower Limb Edema Present No WC - Nurse 2 - General Ulcer CM Notes Start: 02/11/21 09:15 Freq: Status: Active Protocol: Activity Type Activity Date Activity User E-Sign Co-Sign Detail Recorded Client Recorded Date Recorded By Document 02/11/21 09:40 JERSON [id number] 02/11/21 09:52 JERSON 02/11/21 09:40 Wound Center Nurse 2 #5 RIGHT LATERAL FOOT POST OP -Time 09:42 -Correct Patient Yes -Correct Side, Site, Position Yes -Correct Procedure Yes -Procedure Performed Yes -Type of Procedure Debridement -Clinical Debridement Subcutaneous -Tissue Removed Subcutaneous -Post Debridement (cm) - Length 1.5 -Post Debridement (cm) - Width 0.4 -Post Debridement (cm) - Depth 0.6 -Total Square (Post) (cm) 0.60 -Area of Debridement (cm) - Length 1.5 -Area of Debridement (cm) - Width 0.4 -Total Square (Area) (cm) 0.60 -Tunneling No -Circular Undermining No -Wound/Ulcer Outcome Not Healed -Ulcer Cleansing Rinsed/ Irrigated with Saline -Foul Odor after Cleansing No -Bioengineered Tissue No -Bleeding Controlled with Pressure -Offloading Yes -Type of Offloading Surgical Shoe -Treatment Response Procedure Tolerated Well -Debridement - Subq, 1st 20sq cm Yes #4 R PLANTAR POST OP -Time 09:51 -Correct Patient Yes -Correct Side, Site, Position Yes -Correct Procedure Yes -Procedure Performed Yes -Type of Procedure Debridement -Clinical Debridement Muscle / Fascia -Tissue Removed Muscle -Post Debridement (cm) - Length 3 -Post Debridement (cm) - Width 3.3 -Post Debridement (cm) - Depth 1.8 -Total Square (Post) (cm) 9.9 -Area of Debridement (cm) - Length 3 -Area of Debridement (cm) - Width 3.3 -Total Square (Area) (cm) 9.9 -Tunneling No -Circular Undermining No -Wound/Ulcer Outcome Not Healed -Ulcer Cleansing Rinsed/ Irrigated with Saline -Foul Odor after Cleansing No -Bioengineered Tissue No -Bleeding Controlled with Pressure -Offloading Yes -Type of Offloading Surgical Shoe -Treatment Response Procedure Tolerated Well -Debridement - Muscle / Fascia, 1st Yes 20sq cm Pain Scale: 0-10 Numeric Is Patient Pain Free? Yes - Nurse 3 - General Ulcer D/C NN Start: 02/11/21 09:15 Freq: Status: Active Protocol: Activity Type Activity Date Activity User E-Sign Co-Sign Detail Recorded Client Recorded Date Recorded By Document 02/11/21 10:08 MW [id number] 02/11/21 10:09 MW 02/11/21 10:08 Wound Care Nurse 3 #5 RIGHT LATERAL FOOT POST OP -Ulcer Cleansing Rinsed/ Irrigated with Saline -Foul Odor after Cleansing No -Negative Pressure Wound Therapy N/A -Other Dressing betadine -Primary Dressing Covered/Secured with Dry Gauze & Roll Gauze, Secured with Tape -Other Covering abd pad #4 R PLANTAR POST OP -Ulcer Cleansing Rinsed/ Irrigated with Saline -Foul Odor after Cleansing No -Negative Pressure Wound Therapy N/A -Other Dressing betadine -Primary Dressing Covered/Secured with Dry Gauze & Roll Gauze, Secured with Tape -Other Covering abd pad Right -Compression Wrap Jens Wrap Treatment Response Procedure Tolerated Well Pain Scale: 0-10 Numeric Is Patient Pain Free? Yes Teaching: Wound Center Dressing Your Wound -Person Taught Patient -Teaching Method Discussion, Demonstration -Response to teaching Verbalize understanding WC - Visit Discharge Discharge Condition Stable Ambulatory Status Ambulatory, Walker Transportation Private Auto Accompanied by self Medication Reconcilliation completed & No provided to patient/care provider Clinical Summary of Care Provided Yes Wound debrided: Lateral forefoot amputation site Laterality: Right Wound Grade/Stage: Sams 1 Type of Debridement: Excisional debridement Anesthesia Used: 4% Lidocaine Solution Depth: in the subcutaneous layer Percentage of wound debrided: 100 Instrument Used: 3mm curette Tissue Removed: includes fibrous, devitalized, biofilm, callus and slough tissue Severity: Fat Layer Exposed Amount of bleeding with debridement: Mild Bleeding Controlled with: Pressure Patient tolerated procedure: Patient tolerated procedure well Additional Wound Wound debrided: Plantar right foot Laterality: Right Wound Grade/Stage: Sams 3 Type of Debridement: Excisional debridement Anesthesia Used: 4% Lidocaine Solution Depth: to bone (Debrided to muscle) Percentage of wound debrided: 100 Instrument Used: 3mm curette Tissue Removed: Includes fibrous, devitalized, biofilm, callus and slough tissue Severity: Necrosis of Muscle (Probes to bone) Amount of bleeding with debridement: Mild Bleeding Controlled with: Pressure Patient tolerated procedure: Patient tolerated procedure well Assessment/Plan Assessment/Plan (1) Non-pressure chronic ulcer of other part of right foot with fat layer exposed: CODE(S): L97.512 - Non-pressure chronic ulcer of other part of right foot with fat layer exposed (2) 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: CODE(S): L97.414 - Non-pressure chronic ulcer of right heel and midfoot with necrosis of bone (3) Osteomyelitis: CODE(S): M86.9 - Osteomyelitis, unspecified QUALIFIERS: Osteomyelitis type: other acute Osteomyelitis location: foot Laterality: right Qualified Code(s): M86.171 - Other acute osteomyelitis, right ankle and foot (4) Type 2 diabetes mellitus with diabetic polyneuropathy: CODE(S): E11.42 - Type 2 diabetes mellitus with diabetic polyneuropathy QUALIFIERS: Diabetes mellitus prison insulin use: unspecified manager long term care insulin use status Qualified Code(s): E11.42 - Type 2 diabetes mellitus with diabetic polyneuropathy (5) Obese: CODE(S): E66.9 - Obesity, unspecified QUALIFIERS: Obesity type: due to excess calories Obesity classification: adult class 3 (BMI >= 40) Serious obesity comorbidity presence: with serious comorbidity Body mass index: BMI 40.0-44.9 Qualified Code(s): E66.01 - Morbid (severe) obesity due to excess calories; Z68.41 - Body mass index [BMI]40.0-44.9, adult (6) History of amputation of foot: CODE(S): Z89.439 - Acquired absence of unspecified foot QUALIFIERS: Laterality: right Qualified Code(s): Z89.431 - Acquired absence of right foot (7) Charcot's joint, right ankle and foot: CODE(S): M14.671 - Charcot's joint, right ankle and foot (8) Bilateral lower extremity edema: CODE(S): R60.0 - Localized edema PLAN: Patient seen and examined. Wounds are noted to have more drainage since last seen with some maceration noted. I reviewed and discussed his case. It is noted that he is s/p debridement right foot on 01/15/[address] Otoole including bone. He has since been treated with a wound VAC and offloading. Debridement was performed today in the clinical setting including excisional muscle/tendon tissue to the plantar wound and subcu to the lateral wound. This is further documented in the nursing panel. Patient to remain nonweightbearing to the right lower extremity. Use wheelchair or knee walker. Patient is noted to also have gotten an electric scooter in order to offload his foot Patient to continue 3 times a week wound VAC changes. Discussed doing bridging to the dorsal foot. Discussed washing area prior to reapplication. Patient is noted to be waiting for more wound VAC supplies that should be delivered tomorrow at home health care states they will come out to put the wound VAC on. Patient was discharged from the wound care center with a Betadine wet-to-dry dressing until the wound VAC could be replaced. Reviewed culture results 01/15/2021. Wound cultures demonstrate group B streptococcus, MRSA, and corynebacterium from the foot wound. There is also noted to be strep agalactiae noted in his blood culture. OR cultures of the cuboid bone was positive for beta Streptococcus and corynebacterium. MRI was reviewed showing both Charcot changes and concern for osteomyelitis of the plantar cuboid area with ulcerations. Patient is noted to be taking doxycycline and Augmentin per infectious disease, Dr. Soto. Given increased amount of drainage new cultures were obtained today. So far did appear to be growing the same bacteria that was noted on previous cultures of strep group B and gram-positive rods. Patient is to continue taking antibiotics as prescribed by infectious disease. He is at risk for further amputation of foot or leg. He has a [place] walker ready at [facility] once healed. If he feels he can get his foot in there with a minimal dressing he can begin wearing this for offloading. I recommend [place] for nutritional supplementation to optimize healing. All questions answered We will apply for TheraSkin wound graft as I recommend advanced wound graft therapy in order to speed healing process. This is still pending for approval To follow-up in 1 week Note: [employer] speech recognition title clerk software was used to create portions of this document. Sound-alike and misspelled words, as well as other title clerk errors may be contained in the documentation. The problems addressed require a low medical decision making level which includes two or more minor problems, a stable chronic illness, or an acute uncomplicated illness or injury.
[2021-02-18 11:32] VITALS: BP 131/77; PULSE 94; RESP 18; TEMP 36.3; BMI 47.7
--- NOTE | 2021-02-18 12:43 | PCM.WC.PN ---
History of Present Illness Date of Service: 02/18/21 Chief Complaint: Right foot plantar lateral ulceration status post fourth and fifth ray partial amputation-healed History of Wound: Patient is a 50-year-old male who presents to the wound care center for follow-up of hospital visit after surgical debridement with Dr. Otoole on 01-15-21 including bone. He has been wearing a wound VAC. Patient was discharged from the hospital on doxycycline and Augmentin per infectious disease. He denies redness. His pain has increased to moderate level. Patient is continue wound VAC therapy with assistance of home health care. Patient has obtained a knee scooter as well as an electric scooter to be able to offload his ulceration site Progress of Wound: Stable Subjective Subjective He relates he is still taking the antibiotics. Patient seen and examined resting comfortably. Patient denies any new pedal complaints. Patient denies any nausea, fever, chills, chest pain, shortness of breath, cough, streaking, purulence, vomiting. Objective Data Objective Data Vital Signs: Vital Signs Temp Pulse Resp BP 97.3 F L 94 18 131/77 H 02/18/21 11:32 02/18/21 11:32 02/18/21 11:32 02/18/21 11:32 Oxygen Delivery Method Room Air Body Mass Index (BMI) 47.7 Lab / Micro Data Micro: Microbiology 02/11/21 09:47 Wound - Heel, Left Gram Stain - Final 02/11/21 09:47 Wound - Heel, Left Wound Culture - Final Streptococcus agalactiae (B) Proprionibacterium acnes 02/11/21 09:47 Wound - Heel, Left Anaerobic Culture - Final Anaerobic cocci Physical Exam Narrative Const alert and oriented x3 General Appearance: cooperative HEENT normocephalic Extremity Extremity Narrative: No calf tenderness Diminished pulses Compartments remain soft to palpate right lower extremity General Extremity: edema and no tenderness to palpation of joints or extremities; Negative for cyanosis Skin Skin Narrative: Ulceration noted to plantar and lateral right foot with plantar foot wound probing to bone and lateral wound to subcu. no purulence, no streaking, no erythema. Periwound maceration has improved to plantar foot. There is devitalized subcutaneous and plantar muscle/tendon tissue. There is also positive probe to deep structures with less bone exposed noted today. No bogginess or fluctuance. Total lateral and plantar foot ulcerations no longer communicate. No signs of infection. Decreased serous drainage noted from plantar foot General Skin Exam: Negative for erythema MSK Muscle wasting noted Charcot foot with rocker-bottom deformity and fourth and fifth ray resection right Neuro Neuro Narrative: lack of normal epicritic sensation via light touch is consistent with neuropathy status Psych cooperative and affect normal Debridement Note Debridement Note Post-Debridement Measurements and Additional Note: Post-Debridement Measurements/Treatment WC - Nurse 1 - General Ulcer Assessment Start: 02/11/21 09:15 Freq: Status: Active Protocol: NIGEL Activity Type Activity Date Activity User E-Sign Co-Sign Detail Recorded Client Recorded Date Recorded By Document 02/11/21 09:15 MW [id number] 02/11/21 09:23 MW Document 02/18/21 11:32 MW [id number] 02/18/21 11:34 MW 02/11/21 02/18/21 09:15 11:32 WC - Today's Visit Information Type of service Follow-up Visit Follow-up Visit (Physician/ELECTROLYTIC DE SCALER (Physician/ELECTROLYTIC DE SCALER ) ) Arrival Mode Ambulatory, Ambulatory, Other Other Arrival Mode (Other) knee walker knee walker Transfer Assistance None None Accompanied by self self Patient Identification Verified (Name & Yes Yes ) Patient Requires Transmission-Based No No Precautions Safety Precautions NA Finger Stick Blood Sugar(mg/dl) (if 102 indicated): Blood Sugar Stated by Patient Height and Weight Body Mass Index (BMI) 47.7 47.7 BMI Classification Obese Obese Vital Signs Temperature (97.8 F-99.1 F) 97.8 F 97.3 F L Temperature Source Temporal Temporal Pulse Rate (60-100) 88 94 Pulse Location Monitor Monitor Respiratory Rate (12-18) 18 18 Respiratory rate source Observation Observation Oxygen Delivery Method Room Air Room Air Blood Pressure (90/60-120/80) 135/69 H 131/77 H Blood Pressure Mean (mm Hg) 91 95 Source Monitor Monitor Position Sitting Sitting Blood Pressure Location Left Arm Left Arm History Since Last Visit- (Skip if this is Patient's initial visit) Have you changed medications since your No No last visit? Any new allergies or adverse reactions No No Had a fall/change in ADL's that may No No increase risk of falls Signs or symptoms of abuse and/or No No neglect since last visit Have you been in the hospital since your No No last visit? Has dressing in place as prescribed No Yes Has compression in place as prescribed Yes Yes Has offloadiing in place as prescribed N/A N/A Experienced any changes in pain level or No No management Left Footwear Regular Shoe Regular Shoe Right Footwear Surgical Shoe Surgical Shoe with pressure with pressure relief insole relief insole Pain Scale: 0-10 Numeric Is Patient Pain Free? Yes Yes WC - Nurse 1 - General Ulcer Measurement Start: 02/11/21 09:15 Freq: Status: Active Protocol: Activity Type Activity Date Activity User E-Sign Co-Sign Detail Recorded Client Recorded Date Recorded By Document 02/11/21 09:15 MW [id number] 02/11/21 09:23 MW Edit Result 02/11/21 09:15 MW (1) [id number] 02/11/21 09:25 MW Document 02/18/21 11:34 MW [id number] 02/18/21 11:45 MW (1) #4 R PLANTAR POST OP - Tunneling No => Yes - Tunneling Position (O'clock) => 10 - Tunneling Distance (cm) => 1.8 02/11/21 02/18/21 09:15 11:34 Wound Center Nurse 1 #5 RIGHT LATERAL FOOT POST OP -Combined with other wound No No -Current Size (cm) - Length 0.7 0.2 -Current Size (cm) - Width 0.2 1.0 -Current Size (cm) - Depth 0.7 0.5 -Total Square Cm 0.14 0.20 -Photo Taken No No -Epithelialization Small 1-33% None Present -Tunneling No -Undermining/Tunneling No No -Circular Undermining No No -Exudate Amt Small Small -Exudate Type Serosanguineous Serosanguineous -Wound Margin Flat & Intact Thickened & Rolled Under -Granulation Amt Large (67-100%) Small (1-33%) -Granulation Quality [place] -Slough/Fibrin Yes Yes -Necrosis Amt Small (1-33%) Medium (34-66%) -Necrotic Tissue Type Adherent Slough Adherent Slough -Structure Exposed N/A N/A -Texture (Michelle-wound Skin Appearance) Assessed, Assessed, Scarring Localized Edema ,Scarring -Moisture (Michelle-wound Skin Appearance) No Abnormality, Assessed Assessed -Color (Michelle-wound Skin Appearance) Assessed, No Abnormality, Hemosiderin Assessed Staining -Temperature (Michelle-wound Skin No Abnormality No Abnormality Appearance) (Pt Warm) (Pt Warm) -Tenderness on Palpation (Michelle-wound Yes No Skin Appearance) -Ulcer Cleansing soap and water soap and water -Foul Odor after Cleansing No No -Anesthetic Used 4% Lidocaine 4% Lidocaine Solution Solution #4 R PLANTAR POST OP -Combined with other wound No No -Current Size (cm) - Length 2.8 2.3 -Current Size (cm) - Width 3.6 2.5 -Current Size (cm) - Depth 1.8 0.4 -Total Square Cm 10.08 5.75 -Photo Taken No No -Epithelialization None Present None Present -Tunneling Yes No -Tunneling Position (O'clock) 10 -Tunneling Distance (cm) 1.8 -Undermining/Tunneling No No -Circular Undermining No No -Exudate Amt Medium Medium -Exudate Type Purulent Serosanguineous -Wound Margin Thickened Flat & Intact -Granulation Amt Large (67-100%) Large (67-100%) -Granulation Quality [place] -Slough/Fibrin Yes Yes -Necrosis Amt Small (1-33%) Small (1-33%) -Necrotic Tissue Type Adherent Slough Adherent Slough -Structure Exposed N/A N/A -Texture (Michelle-wound Skin Appearance) Assessed,Callus Assessed,Callus ,Scarring ,Localized Edema,Scarring -Moisture (Michelle-wound Skin Appearance) Assessed,Dry/ Assessed, Scaly Maceration -Color (Michelle-wound Skin Appearance) Assessed, No Abnormality, Hemosiderin Assessed Staining -Temperature (Michelle-wound Skin No Abnormality No Abnormality Appearance) (Pt Warm) (Pt Warm) -Tenderness on Palpation (Michelle-wound Yes No Skin Appearance) -Ulcer Cleansing soap and water soap and water -Foul Odor after Cleansing No No -Anesthetic Used 4% Lidocaine 4% Lidocaine Solution Solution Lower Limb Edema Present No No WC - Nurse 2 - General Ulcer CM Notes Start: 02/11/21 09:15 Freq: Status: Active Protocol: Activity Type Activity Date Activity User E-Sign Co-Sign Detail Recorded Client Recorded Date Recorded By Document 02/11/21 09:40 JERSON [id number] 02/11/21 09:52 Document 02/18/21 12:14 [id number] 02/18/21 12:29 02/11/21 02/18/21 09:40 12:14 Wound Center Nurse 2 #5 RIGHT LATERAL FOOT POST OP -Time 09:42 12:14 -Correct Patient Yes Yes -Correct Side, Site, Position Yes Yes -Correct Procedure Yes Yes -Procedure Performed Yes Yes -Type of Procedure Debridement Debridement -Clinical Debridement Subcutaneous Subcutaneous -Tissue Removed Subcutaneous Subcutaneous -Post Debridement (cm) - Length 1.5 0.8 -Post Debridement (cm) - Width 0.4 0.3 -Post Debridement (cm) - Depth 0.6 0.5 -Total Square (Post) (cm) 0.60 0.24 -Area of Debridement (cm) - Length 1.5 0.8 -Area of Debridement (cm) - Width 0.4 0.3 -Total Square (Area) (cm) 0.60 0.24 -Tunneling No No -Undermining/Tunneling No -Circular Undermining No No -Wound/Ulcer Outcome Not Healed Not Healed -Ulcer Cleansing Rinsed/ Rinsed/ Irrigated with Irrigated with Saline Saline -Foul Odor after Cleansing No No -Bioengineered Tissue No No -Bleeding Controlled with Pressure -Offloading Yes -Type of Offloading Surgical Shoe -Treatment Response Procedure Tolerated Well -Debridement - Subq, 1st 20sq cm Yes Yes #4 R PLANTAR POST OP -Time 09:51 12:14 -Correct Patient Yes Yes -Correct Side, Site, Position Yes Yes -Correct Procedure Yes Yes -Procedure Performed Yes Yes -Type of Procedure Debridement Debridement -Clinical Debridement Muscle / Fascia Muscle / Fascia -Tissue Removed Muscle Muscle -Post Debridement (cm) - Length 3 2.7 -Post Debridement (cm) - Width 3.3 2.9 -Post Debridement (cm) - Depth 1.8 0.8 -Total Square (Post) (cm) 9.9 7.83 -Area of Debridement (cm) - Length 3 2.7 -Area of Debridement (cm) - Width 3.3 2.9 -Total Square (Area) (cm) 9.9 7.83 -Tunneling No No -Undermining/Tunneling No -Circular Undermining No No -Wound/Ulcer Outcome Not Healed Not Healed -Ulcer Cleansing Rinsed/ Rinsed/ Irrigated with Irrigated with Saline Saline -Foul Odor after Cleansing No No -Bioengineered Tissue No Yes -Type of Bioengineered Tissue Theraskin -Expiration Date 04/30/24 -Product Lot Number [id number] -Percent Used 100 -Lot number of Saline Used [id number] -Bleeding Controlled with Pressure Pressure -Offloading Yes Yes -Type of Offloading Surgical Shoe Surgical Shoe -Treatment Response Procedure Procedure Tolerated Well Tolerated Well -Debridement - Muscle / Fascia, 1st Yes No 20sq cm -Apply Skin Sub - 1st 25 sq cm - Feet 1 -Theraskin (per sq cm) 13 Pain Scale: 0-10 Numeric Is Patient Pain Free? Yes Yes - Nurse 3 - General Ulcer D/C NN Start: 02/11/21 09:15 Freq: Status: Active Protocol: Activity Type Activity Date Activity User E-Sign Co-Sign Detail Recorded Client Recorded Date Recorded By Document 02/11/21 10:08 MW [id number] 02/11/21 10:09 MW Document 02/18/21 12:30 [id number] 02/18/21 12:31 JERSON 02/11/21 02/18/21 10:08 12:30 Wound Care Nurse 3 #5 RIGHT LATERAL FOOT POST OP -Ulcer Cleansing Rinsed/ Rinsed/ Irrigated with Irrigated with Saline Saline -Foul Odor after Cleansing No -Negative Pressure Wound Therapy N/A Discontinue -Primary Dressing Applied Mepilex Border -Other Dressing betadine -Primary Dressing Covered/Secured with Dry Gauze & Roll Gauze, Secured with Tape -Other Covering abd pad -Mepilex Border 1 #4 R PLANTAR POST OP -Ulcer Cleansing Rinsed/ Rinsed/ Irrigated with Irrigated with Saline Saline -Foul Odor after Cleansing No No -Negative Pressure Wound Therapy N/A Continue -Setting (mmHg) 125 -Negative Pressure is Continuous -Other Dressing betadine -Primary Dressing Covered/Secured with Dry Gauze & Roll Gauze, Secured with Tape -Other Covering abd pad -NPWT Application Charge ($) NPWT </= 50 sq cm Right -Compression Wrap Jens Wrap Jens Wrap Treatment Response Procedure Tolerated Well Pain Scale: 0-10 Numeric Is Patient Pain Free? Yes Yes Teaching: Wound Center Dressing Your Wound -Person Taught Patient -Teaching Method Discussion, Demonstration -Response to teaching Verbalize understanding WC - Visit Discharge Discharge Condition Stable Stable Ambulatory Status Ambulatory, Ambulatory, Walker Walker Transportation Private Auto Accompanied by self Medication Reconcilliation completed & No Yes provided to patient/care provider Clinical Summary of Care Provided Yes Yes Wound debrided: Right lateral foot Laterality: Right Wound Grade/Stage: Sams 1 Type of Debridement: Excisional debridement Anesthesia Used: 4% Lidocaine Solution Depth: in the subcutaneous layer Percentage of wound debrided: 100 Instrument Used: 3mm curette Tissue Removed: includes fibrous, devitalized, biofilm, callus and slough tissue Severity: Fat Layer Exposed Amount of bleeding with debridement: Mild Bleeding Controlled with: Pressure Patient tolerated procedure: Patient tolerated procedure well Additional Wound Wound debrided: Plantar foot Laterality: Right Wound Grade/Stage: Sams 3 Type of Debridement: Excisional debridement Anesthesia Used: 4% Lidocaine Solution Depth: to bone (Debrided to muscle) Percentage of wound debrided: 100 Instrument Used: 3mm curette Tissue Removed: Includes fibrous, devitalized, biofilm, callus and slough tissue Severity: Necrosis of Bone Amount of bleeding with debridement: Mild Bleeding Controlled with: Pressure Patient tolerated procedure: Patient tolerated procedure well Assessment/Plan Assessment/Plan (1) Non-pressure chronic ulcer of other part of right foot with fat layer exposed: CODE(S): L97.512 - Non-pressure chronic ulcer of other part of right foot with fat layer exposed (2) 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: CODE(S): L97.414 - Non-pressure chronic ulcer of right heel and midfoot with necrosis of bone (3) Osteomyelitis: CODE(S): M86.9 - Osteomyelitis, unspecified QUALIFIERS: Laterality: right Osteomyelitis location: foot Osteomyelitis type: other acute Qualified Code(s): M86.171 - Other acute osteomyelitis, right ankle and foot (4) Type 2 diabetes mellitus with diabetic polyneuropathy: CODE(S): E11.42 - Type 2 diabetes mellitus with diabetic polyneuropathy QUALIFIERS: Diabetes mellitus top precipitator operator insulin use: unspecified top precipitator operator insulin use status Qualified Code(s): E11.42 - Type 2 diabetes mellitus with diabetic polyneuropathy (5) Obese: CODE(S): E66.9 - Obesity, unspecified QUALIFIERS: Body mass index: BMI 40.0-44.9 Obesity classification: adult class 3 (BMI >= 40) Obesity type: due to excess calories Serious obesity comorbidity presence: with serious comorbidity Qualified Code(s): E66.01 - Morbid (severe) obesity due to excess calories; Z68.41 - Body mass index [BMI]40.0-44.9, adult (6) History of amputation of foot: CODE(S): Z89.439 - Acquired absence of unspecified foot QUALIFIERS: Laterality: right Qualified Code(s): Z89.431 - Acquired absence of right foot (7) Charcot's joint, right ankle and foot: CODE(S): M14.671 - Charcot's joint, right ankle and foot (8) Bilateral lower extremity edema: CODE(S): R60.0 - Localized edema PLAN: Patient seen and examined. Wounds are noted to have more drainage since last seen with some maceration noted. I reviewed and discussed his case. It is noted that he is s/p debridement right foot on 01/15/[address] Otoole including bone. He was positive for osteomyelitis. He has since been treated with a wound VAC and offloading. Patient to remain nonweightbearing to the right lower extremity. Use wheelchair or knee walker. Patient is noted to also have gotten an electric scooter in order to offload his foot Reviewed culture results 01/15/2021. Wound cultures demonstrate group B streptococcus, MRSA, and corynebacterium from the foot wound. There is also noted to be strep agalactiae noted in his blood culture. OR cultures of the cuboid bone was positive for beta Streptococcus and corynebacterium. MRI was reviewed showing both Charcot changes and concern for osteomyelitis of the plantar cuboid area with ulcerations. Patient is noted to be taking doxycycline and Augmentin per infectious disease, Dr. Soto. Cultures are coming and 02/11/2021 demonstrated Streptococcus agalactiae, Propionibacterium acnes, anaerobic cocci. Patient to continue current antibiotic plan per infectious disease. He is at risk for further amputation of foot or leg. He has a SENECA-[place]YU[place] walker ready at [facility] [employer] [facility] once healed. If he feels he can get his foot in there with a minimal dressing he can begin wearing this for offloading. I recommend Glen for nutritional supplementation to optimize healing. All questions answered Patient was approved for TheraSkin wound graft applications. I recommend application of advanced wound healing product to the indicated ulceration. Prior authorization was confirmed. The indications, benefits, anticipated application and healing time management were reviewed in detail. Verbal consent was obtained in the procedure for today. Site was debrided and graft was applied according to standard protocol and was further secured with a nonadherent dressing and Steri-Strips. Patient instructed that they can change outer dressing but not to go beneath the Steri-Strips. Wound VAC was placed over top of skin graft application. Canister to be changed as needed. To follow-up in 1 week Note: Veniti speech recognition electrical engineering intern software was used to create portions of this document. Sound-alike and misspelled words, as well as other electrical engineering intern errors may be contained in the documentation.
[2021-02-25 09:14] VITALS: BP 131/75; PULSE 78; TEMP 36.1; BMI 47.7
--- NOTE | 2021-02-25 09:45 | PCM.WC.PN ---
History of Present Illness Date of Service: 02/25/21 Chief Complaint: Right foot plantar lateral ulceration status post fourth and fifth ray partial amputation-healed History of Wound: Patient is a 50-year-old male who presents to the wound care center for follow-up of hospital visit after surgical debridement with Dr. Otoole on 01-15-21 including bone. He has been wearing a wound VAC. Patient was discharged from the hospital on doxycycline and Augmentin per infectious disease. He denies redness. His pain has increased to moderate level. Patient is continue wound VAC therapy with assistance of home health care. Patient has obtained a knee scooter as well as an electric scooter to be able to offload his ulceration site Progress of Wound: Wound has improved with less size. Malodor present likely secondary to graft with wound VAC for 1 week duration Subjective Subjective Patient seen and examined resting comfortably. Patient denies any new pedal complaints. Patient denies any nausea, fever, chills, chest pain, shortness of breath, cough, streaking, purulence, vomiting. Objective Data Objective Data Vital Signs: Vital Signs Temp Pulse Resp BP 97.0 F L 78 18 131/75 H 02/25/21 09:14 02/25/21 09:14 02/18/21 11:32 02/25/21 09:14 Oxygen Delivery Method Room Air Body Mass Index (BMI) 47.7 Lab / Micro Data Micro: Microbiology 02/11/21 09:47 Wound - Heel, Left Gram Stain - Final 02/11/21 09:47 Wound - Heel, Left Wound Culture - Final Streptococcus agalactiae (B) Proprionibacterium acnes 02/11/21 09:47 Wound - Heel, Left Anaerobic Culture - Final Anaerobic cocci Physical Exam Narrative Const alert and oriented x3 General Appearance: cooperative HEENT normocephalic Extremity Extremity Narrative: No calf tenderness Diminished pulses Compartments remain soft to palpate right lower extremity General Extremity: edema and no tenderness to palpation of joints or extremities; Negative for cyanosis Skin Skin Narrative: Ulceration noted to plantar and lateral right foot with plantar foot wound probing to muscle and lateral wound to subcu. no purulence, no streaking, no erythema. Periwound maceration has improved to plantar foot. There is devitalized subcutaneous and plantar muscle/tendon tissue. No bogginess or fluctuance. Total lateral and plantar foot ulcerations no longer communicate. No signs of infection. Decreased serous drainage noted from plantar foot. There is malodor noted when removing the wound VAC and TheraSkin graft after being in place for 1 week. This seems to be just due to duration of dressing staying on versus actual infection. General Skin Exam: Negative for erythema MSK Muscle wasting noted Charcot foot with rocker-bottom deformity and fourth and fifth ray resection right Neuro Neuro Narrative: lack of normal epicritic sensation via light touch is consistent with neuropathy status Psych cooperative and affect normal Debridement Note Debridement Note Post-Debridement Measurements and Additional Note: Post-Debridement Measurements/Treatment - Nurse 1 - General Ulcer Assessment Start: 02/11/21 09:15 Freq: Status: Active Protocol: NIGEL Activity Type Activity Date Activity User E-Sign Co-Sign Detail Recorded Client Recorded Date Recorded By Document 02/11/21 09:15 MW [id number] 02/11/21 09:23 MW Document 02/18/21 11:32 MW [id number] 02/18/21 11:34 MW Document 02/25/21 09:14 KR [id number] 02/25/21 09:16 KR 02/11/21 02/18/21 02/25/21 09:15 11:32 09:14 - Today's Visit Information Type of service Follow-up Visit Follow-up Visit Follow-up Visit (Physician/PLANT CONTROL OPERATOR (Physician/PLANT CONTROL OPERATOR (Physician/PLANT CONTROL OPERATOR ) ) ) Arrival Mode Ambulatory, Ambulatory, Ambulatory Other Other Arrival Mode (Other) knee walker knee walker Transfer Assistance None None Accompanied by self self Patient Identification Verified (Name & Yes Yes Yes ) Patient Requires Transmission-Based No No Precautions Safety Precautions NA Finger Stick Blood Sugar(mg/dl) (if 102 indicated): Blood Sugar Stated by Patient Height and Weight Body Mass Index (BMI) 47.7 47.7 47.7 BMI Classification Obese Obese Obese Vital Signs Temperature (97.8 F-99.1 F) 97.8 F 97.3 F L 97.0 F L Temperature Source Temporal Temporal Temporal Pulse Rate (60-100) 88 94 78 Pulse Location Monitor Monitor Monitor Respiratory Rate (12-18) 18 18 Respiratory rate source Observation Observation Oxygen Delivery Method Room Air Room Air Blood Pressure (90/60-120/80) 135/69 H 131/77 H 131/75 H Blood Pressure Mean (mm Hg) 91 95 93 Source Monitor Monitor Monitor Position Sitting Sitting Semi-Fowlers Blood Pressure Location Left Arm Left Arm Right Arm History Since Last Visit- (Skip if this is Patient's initial visit) Have you changed medications since your No No No last visit? Any new allergies or adverse reactions No No No Had a fall/change in ADL's that may No No No increase risk of falls Signs or symptoms of abuse and/or No No No neglect since last visit Have you been in the hospital since your No No No last visit? Has dressing in place as prescribed No Yes Yes Has compression in place as prescribed Yes Yes N/A Has offloadiing in place as prescribed N/A N/A N/A Experienced any changes in pain level or No No No management Left Footwear Regular Shoe Regular Shoe Right Footwear Surgical Shoe Surgical Shoe with pressure with pressure relief insole relief insole Pain Scale: 0-10 Numeric Is Patient Pain Free? Yes Yes Yes WC - Nurse 1 - General Ulcer Measurement Start: 02/11/21 09:15 Freq: Status: Active Protocol: Activity Type Activity Date Activity User E-Sign Co-Sign Detail Recorded Client Recorded Date Recorded By Document 02/11/21 09:15 MW [id number] 02/11/21 09:23 MW Edit Result 02/11/21 09:15 MW (1) [id number] 02/11/21 09:25 MW Document 02/18/21 11:34 MW [id number] 02/18/21 11:45 MW Document 02/25/21 09:14 KR [id number] 02/25/21 09:16 KR (1) #4 R PLANTAR POST OP - Tunneling No => Yes - Tunneling Position (O'clock) => 10 - Tunneling Distance (cm) => 1.8 02/11/21 02/18/21 02/25/21 09:15 11:34 09:14 Wound Center Nurse 1 #5 RIGHT LATERAL FOOT POST OP -Combined with other wound No No -Current Size (cm) - Length 0.7 0.2 0.1 -Current Size (cm) - Width 0.2 1.0 0.1 -Current Size (cm) - Depth 0.7 0.5 0.1 -Total Square Cm 0.14 0.20 0.01 -Photo Taken No No -Epithelialization Small 1-33% None Present -Tunneling No -Undermining/Tunneling No No -Circular Undermining No No -Exudate Amt Small Small None Present -Exudate Type Serosanguineous Serosanguineous -Wound Margin Flat & Intact Thickened & Distinct, Rolled Under Outline Attached -Granulation Amt Large (67-100%) Small (1-33%) Small (1-33%) -Granulation Quality [place] -Slough/Fibrin Yes Yes -Necrosis Amt Small (1-33%) Medium (34-66%) None Present (0 %) -Necrotic Tissue Type Adherent Slough Adherent Slough -Structure Exposed N/A N/A -Texture (Michelle-wound Skin Appearance) Assessed, Assessed, Assessed, Scarring Localized Edema Scarring ,Scarring -Moisture (Michelle-wound Skin Appearance) No Abnormality, Assessed No Abnormality, Assessed Assessed -Color (Michelle-wound Skin Appearance) Assessed, No Abnormality, No Abnormality, Hemosiderin Assessed Assessed Staining -Temperature (Michelle-wound Skin No Abnormality No Abnormality No Abnormality Appearance) (Pt Warm) (Pt Warm) (Pt Warm) -Tenderness on Palpation (Michelle-wound Yes No No Skin Appearance) -Ulcer Cleansing soap and water soap and water SOAP AND WATER -Foul Odor after Cleansing No No No -Anesthetic Used 4% Lidocaine 4% Lidocaine 5% Lidocaine Solution Solution Gel #4 R PLANTAR POST OP -Combined with other wound No No -Current Size (cm) - Length 2.8 2.3 2.3 -Current Size (cm) - Width 3.6 2.5 2.1 -Current Size (cm) - Depth 1.8 0.4 0.3 -Total Square Cm 10.08 5.75 4.83 -Photo Taken No No -Epithelialization None Present None Present -Tunneling Yes No -Tunneling Position (O'clock) 10 -Tunneling Distance (cm) 1.8 -Undermining/Tunneling No No -Circular Undermining No No -Exudate Amt Medium Medium Large -Exudate Type Purulent Serosanguineous Serosanguineous -Wound Margin Thickened Flat & Intact Distinct, Outline Attached -Granulation Amt Large (67-100%) Large (67-100%) Medium (34-66%) -Granulation Quality Red [place] Red -Slough/Fibrin Yes Yes -Necrosis Amt Small (1-33%) Small (1-33%) Medium (34-66%) -Necrotic Tissue Type Adherent Slough Adherent Slough Adherent Slough -Structure Exposed N/A N/A -Texture (Michelle-wound Skin Appearance) Assessed,Callus Assessed,Callus Assessed, ,Scarring ,Localized Scarring Edema,Scarring -Moisture (Michelle-wound Skin Appearance) Assessed,Dry/ Assessed, No Abnormality, Scaly Maceration Assessed -Color (Michelle-wound Skin Appearance) Assessed, No Abnormality, No Abnormality, Hemosiderin Assessed Assessed Staining -Temperature (Michelle-wound Skin No Abnormality No Abnormality No Abnormality Appearance) (Pt Warm) (Pt Warm) (Pt Warm) -Tenderness on Palpation (Michelle-wound Yes No No Skin Appearance) -Ulcer Cleansing soap and water soap and water SOAP AND WATER -Foul Odor after Cleansing No No No -Anesthetic Used 4% Lidocaine 4% Lidocaine 4% Lidocaine Solution Solution Solution Lower Limb Edema Present No No WC - Nurse 2 - General Ulcer CM Notes Start: 02/11/21 09:15 Freq: Status: Active Protocol: Activity Type Activity Date Activity User E-Sign Co-Sign Detail Recorded Client Recorded Date Recorded By Document 02/11/21 09:40 [id number] 02/11/21 09:52 Document 02/18/21 12:14 [id number] 02/18/21 12:29 Document 02/25/21 09:25 [id number] 02/25/21 09:31 02/11/21 02/18/21 02/25/21 09:40 12:14 09:25 Wound Center Nurse 2 #5 RIGHT LATERAL FOOT POST OP -Time 09:42 12:14 09:30 -Correct Patient Yes Yes Yes -Correct Side, Site, Position Yes Yes Yes -Correct Procedure Yes Yes Yes -Procedure Performed Yes Yes Yes -Type of Procedure Debridement Debridement Debridement -Clinical Debridement Subcutaneous Subcutaneous Subcutaneous -Tissue Removed Subcutaneous Subcutaneous Subcutaneous -Post Debridement (cm) - Length 1.5 0.8 0.1 -Post Debridement (cm) - Width 0.4 0.3 0.1 -Post Debridement (cm) - Depth 0.6 0.5 0.1 -Total Square (Post) (cm) 0.60 0.24 0.01 -Area of Debridement (cm) - Length 1.5 0.8 0.1 -Area of Debridement (cm) - Width 0.4 0.3 0.1 -Total Square (Area) (cm) 0.60 0.24 0.01 -Tunneling No No No -Undermining/Tunneling No No -Circular Undermining No No No -Wound/Ulcer Outcome Not Healed Not Healed Not Healed -Ulcer Cleansing Rinsed/ Rinsed/ Rinsed/ Irrigated with Irrigated with Irrigated with Saline Saline Saline -Foul Odor after Cleansing No No No -Bioengineered Tissue No No No -Bleeding Controlled with Pressure Pressure -Offloading Yes Yes -Type of Offloading Surgical Shoe Surgical Shoe -Treatment Response Procedure Procedure Tolerated Well Tolerated Well -Debridement - Subq, 1st 20sq cm Yes Yes Yes #4 R PLANTAR POST OP -Time 09:51 12:14 09:25 -Correct Patient Yes Yes Yes -Correct Side, Site, Position Yes Yes Yes -Correct Procedure Yes Yes Yes -Procedure Performed Yes Yes Yes -Type of Procedure Debridement Debridement Debridement -Clinical Debridement Muscle / Fascia Muscle / Fascia Subcutaneous -Tissue Removed Muscle Muscle Subcutaneous -Post Debridement (cm) - Length 3 2.7 2.2 -Post Debridement (cm) - Width 3.3 2.9 2.2 -Post Debridement (cm) - Depth 1.8 0.8 0.5 -Total Square (Post) (cm) 9.9 7.83 4.84 -Area of Debridement (cm) - Length 3 2.7 2.2 -Area of Debridement (cm) - Width 3.3 2.9 2.2 -Total Square (Area) (cm) 9.9 7.83 4.84 -Tunneling No No No -Undermining/Tunneling No No -Circular Undermining No No No -Wound/Ulcer Outcome Not Healed Not Healed Not Healed -Ulcer Cleansing Rinsed/ Rinsed/ Rinsed/ Irrigated with Irrigated with Irrigated with Saline Saline Saline -Foul Odor after Cleansing No No No -Bioengineered Tissue No Yes Yes -Type of Bioengineered Tissue [employer] Therdulce mariain -Expiration Date 04/30/24 08/24/24 -Product Lot Number [id number] -Percent Used 100 100 -Lot number of Saline Used [id number] -Bleeding Controlled with Pressure Pressure Pressure -Offloading Yes Yes Yes -Type of Offloading Surgical Shoe Surgical Shoe Surgical Shoe -Treatment Response Procedure Procedure Procedure Tolerated Well Tolerated Well Tolerated Well -Debridement - Subq, 1st 20sq cm No -Debridement - Muscle / Fascia, 1st Yes No 20sq cm -Apply Skin Sub - 1st 25 sq cm - Feet 1 1 -[place]askin (per sq cm) 13 6 Pain Scale: 0-10 Numeric Is Patient Pain Free? Yes Yes Yes - Nurse 3 - General Ulcer D/C NN Start: 02/11/21 09:15 Freq: Status: Active Protocol: Activity Type Activity Date Activity User E-Sign Co-Sign Detail Recorded Client Recorded Date Recorded By Document 02/11/21 10:08 MW [id number] 02/11/21 10:09 MW Document 02/18/21 12:30 JF [id number] 02/18/21 12:31 JF Document 02/25/21 09:36 [id number] 02/25/21 09:37 02/11/21 02/18/21 02/25/21 10:08 12:30 09:36 Wound Care Nurse 3 #5 RIGHT LATERAL FOOT POST OP -Ulcer Cleansing Rinsed/ Rinsed/ Rinsed/ Irrigated with Irrigated with Irrigated with Saline Saline Saline -Foul Odor after Cleansing No No -Negative Pressure Wound Therapy N/A Discontinue -Primary Dressing Applied Mepilex Border -Other Dressing betadine -Primary Dressing Covered/Secured with Dry Gauze & Dry Gauze, Roll Gauze, Secured with Secured with Tape Tape -Other Covering abd pad -Mepilex Border 1 #4 R PLANTAR POST OP -Ulcer Cleansing Rinsed/ Rinsed/ Rinsed/ Irrigated with Irrigated with Irrigated with Saline Saline Saline -Foul Odor after Cleansing No No No -Negative Pressure Wound Therapy N/A Continue Continue -Setting (mmHg) 125 125 -Negative Pressure is Continuous Continuous -Other Dressing betadine -Primary Dressing Covered/Secured with Dry Gauze & Roll Gauze, Secured with Tape -Other Covering abd pad -NPWT Application Charge ($) NPWT </= 50 sq NPWT </= 50 sq cm cm Right -Compression Wrap Jens Wrap Jens Wrap Jens Wrap Treatment Response Procedure Tolerated Well Pain Scale: 0-10 Numeric Is Patient Pain Free? Yes Yes Yes Teaching: Wound Center Dressing Your Wound -Person Taught Patient -Teaching Method Discussion, Demonstration -Response to teaching Verbalize understanding WC - Visit Discharge Discharge Condition Stable Stable Stable Ambulatory Status Ambulatory, Ambulatory, Ambulatory, Walker Walker Walker Transportation Private Auto Private Auto Accompanied by self Medication Reconcilliation completed & No Yes Yes provided to patient/care provider Clinical Summary of Care Provided Yes Yes Yes Wound debrided: Plantar foot Laterality: Right Wound Grade/Stage: Sams 3 Type of Debridement: Excisional debridement Anesthesia Used: 4% Lidocaine Solution Depth: to muscle Percentage of wound debrided: 100 Instrument Used: 3mm curette Tissue Removed: includes fibrous, devitalized, biofilm, callus and slough tissue Severity: Necrosis of Muscle Amount of bleeding with debridement: Mild Bleeding Controlled with: Pressure Patient tolerated procedure: Patient tolerated procedure well Additional Wound Wound debrided: Bilateral foot Laterality: Right Wound Grade/Stage: Sams 1 Type of Debridement: Excisional debridement Anesthesia Used: 4% Lidocaine Solution Depth: in the subcutaneous layer Percentage of wound debrided: 100 Instrument Used: 3mm curette Tissue Removed: Includes fibrous, devitalized, biofilm, callus and slough tissue Severity: Fat Layer Exposed Amount of bleeding with debridement: Mild Bleeding Controlled with: Pressure Patient tolerated procedure: Patient tolerated procedure well Assessment/Plan Assessment/Plan (1) Non-pressure chronic ulcer of other part of right foot with fat layer exposed: CODE(S): L97.512 - Non-pressure chronic ulcer of other part of right foot with fat layer exposed (2) 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: CODE(S): L97.414 - Non-pressure chronic ulcer of right heel and midfoot with necrosis of bone (3) Osteomyelitis: CODE(S): M86.9 - Osteomyelitis, unspecified QUALIFIERS: Osteomyelitis type: other acute Osteomyelitis location: foot Laterality: right Qualified Code(s): M86.171 - Other acute osteomyelitis, right ankle and foot (4) Type 2 diabetes mellitus with diabetic polyneuropathy: CODE(S): E11.42 - Type 2 diabetes mellitus with diabetic polyneuropathy QUALIFIERS: Diabetes mellitus terminal supervisor insulin use: unspecified terminal supervisor insulin use status Qualified Code(s): E11.42 - Type 2 diabetes mellitus with diabetic polyneuropathy (5) Obese: CODE(S): E66.9 - Obesity, unspecified QUALIFIERS: Obesity type: due to excess calories Obesity classification: adult class 3 (BMI >= 40) Serious obesity comorbidity presence: with serious comorbidity Body mass index: BMI 40.0-44.9 Qualified Code(s): E66.01 - Morbid (severe) obesity due to excess calories; Z68.41 - Body mass index [BMI]40.0-44.9, adult (6) History of amputation of foot: CODE(S): Z89.439 - Acquired absence of unspecified foot QUALIFIERS: Laterality: right Qualified Code(s): Z89.431 - Acquired absence of right foot (7) Charcot's joint, right ankle and foot: CODE(S): M14.671 - Charcot's joint, right ankle and foot (8) Bilateral lower extremity edema: CODE(S): R60.0 - Localized edema PLAN: Patient seen and examined. Wound noted to have mild malodor but overall improvement and smaller size noted. Agree that this is from having the graft and wound VAC on in place for a full week rather than from any signs of infection. There is no other clinical signs of infection noted. I reviewed and discussed his case. It is noted that he is s/p debridement right foot on 01/15/[address] Otoole including bone. He was positive for osteomyelitis. He has since been treated with a wound VAC and offloading. Patient to remain nonweightbearing to the right lower extremity. Use wheelchair or knee walker. Patient is noted to also have gotten an electric scooter in order to offload his foot Reviewed culture results 01/15/2021. Wound cultures demonstrate group B streptococcus, MRSA, and corynebacterium from the foot wound. There is also noted to be strep agalactiae noted in his blood culture. OR cultures of the cuboid bone was positive for beta Streptococcus and corynebacterium. MRI was reviewed showing both Charcot changes and concern for osteomyelitis of the plantar cuboid area with ulcerations. Patient is noted to be taking doxycycline and Augmentin per infectious disease, Dr. Soto. Cultures are coming and 02/11/2021 demonstrated Streptococcus agalactiae, Propionibacterium acnes, anaerobic cocci. Patient to continue current antibiotic plan per infectious disease. He is at risk for further amputation of foot or leg. He has a SAMISH walker ready at [facility] once healed. If he feels he can get his foot in there with a minimal dressing he can begin wearing this for offloading. I recommend [place] for nutritional supplementation to optimize healing. All questions answered Patient was approved for TheraSkin wound graft applications. I recommend application of advanced wound healing product to the indicated ulceration. Prior authorization was confirmed. The indications, benefits, anticipated application and healing time management were reviewed in detail. Verbal consent was obtained in the procedure for today. Site was debrided and graft was applied according to standard protocol and was further secured with a nonadherent dressing and Steri-Strips. Patient instructed that they can change outer dressing but not to go beneath the Steri-Strips. Wound VAC was placed over top of skin graft application. Canister to be changed as needed. To follow-up in 1 week Note: [employer] speech recognition deburrer machine software was used to create portions of this document. Sound-alike and misspelled words, as well as other deburrer machine errors may be contained in the documentation.
[2021-03-04 09:52] VITALS: BP 143/75; PULSE 88; RESP 22; TEMP 36.9; BMI 47.7
--- NOTE | 2021-03-04 10:18 | PCM.WC.PN ---
History of Present Illness Date of Service: 03/04/21 Chief Complaint: Right foot plantar lateral ulceration status post fourth and fifth ray partial amputation-healed History of Wound: Patient is a 50-year-old male who presents to the wound care center for follow-up of hospital visit after surgical debridement with Dr. Otoole on 01-15-21 including bone. He has been wearing a wound VAC. Patient was discharged from the hospital on doxycycline and Augmentin per infectious disease. He denies redness. His pain has increased to moderate level. Patient is continue wound VAC therapy with assistance of home health care. Patient has obtained a knee scooter as well as an electric scooter to be able to offload his ulceration site Progress of Wound: Increased periwound maceration and odor noted Subjective Subjective Patient seen and examined resting comfortably. Patient denies any new pedal complaints. Patient denies any nausea, fever, chills, chest pain, shortness of breath, cough, streaking, purulence, vomiting. Objective Data Objective Data Vital Signs: Vital Signs Temp Pulse Resp BP 98.4 F 88 22 H 143/75 H 03/04/21 09:52 03/04/21 09:52 03/04/21 09:52 03/04/21 09:52 Oxygen Delivery Method Room Air Body Mass Index (BMI) 47.7 Lab / Micro Data Micro: Microbiology 02/11/21 09:47 Wound - Heel, Left Gram Stain - Final 02/11/21 09:47 Wound - Heel, Left Wound Culture - Final Streptococcus agalactiae (B) Proprionibacterium acnes 02/11/21 09:47 Wound - Heel, Left Anaerobic Culture - Final Anaerobic cocci Physical Exam Narrative Const alert and oriented x3 General Appearance: cooperative HEENT normocephalic Extremity Extremity Narrative: No calf tenderness Diminished pulses Compartments remain soft to palpate right lower extremity General Extremity: edema and no tenderness to palpation of joints or extremities; Negative for cyanosis Skin Skin Narrative: Ulceration noted to plantar and lateral right foot with plantar foot wound probing to bone and lateral foot wound healed no purulence, no streaking, no erythema. Periwound maceration has worsened to plantar foot. There is devitalized subcutaneous and plantar probes to bone. No bogginess or fluctuance. No signs of infection. Decreased serous drainage noted from plantar foot. There is malodor noted when removing the wound VAC and TheraSkin graft after being in place for 1 week. This seems to be just due to duration of dressing staying on versus actual infection. To continue to monitor General Skin Exam: Negative for erythema MSK Muscle wasting noted Charcot foot with rocker-bottom deformity and fourth and fifth ray resection right Neuro Neuro Narrative: lack of normal epicritic sensation via light touch is consistent with neuropathy status Psych cooperative and affect normal Debridement Note Debridement Note Post-Debridement Measurements and Additional Note: Post-Debridement Measurements/Treatment - Nurse 1 - General Ulcer Assessment Start: 02/11/21 09:15 Freq: Status: Active Protocol: SANDEEP.[email or web address] Activity Type Activity Date Activity User E-Sign Co-Sign Detail Recorded Client Recorded Date Recorded By Document 02/11/21 09:15 MW [id number] 02/11/21 09:23 MW Document 02/18/21 11:32 MW [id number] 02/18/21 11:34 MW Document 02/25/21 09:14 KR [id number] 02/25/21 09:16 KR Document 03/04/21 09:52 DL [id number] 03/04/21 10:00 DL 02/11/21 02/18/21 02/25/21 09:15 11:32 09:14 - Today's Visit Information Type of service Follow-up Visit Follow-up Visit Follow-up Visit (Physician/ORGANIC GARDENING TEACHER (Physician/ORGANIC GARDENING TEACHER (Physician/ORGANIC GARDENING TEACHER ) ) ) Arrival Mode Ambulatory, Ambulatory, Ambulatory Other Other Arrival Mode (Other) knee walker knee walker Transfer Assistance None None Accompanied by self self Patient Identification Verified (Name & Yes Yes Yes ) Patient Requires Transmission-Based No No Precautions Safety Precautions NA Finger Stick Blood Sugar(mg/dl) (if 102 indicated): Blood Sugar Stated by Patient Height and Weight Body Mass Index (BMI) 47.7 47.7 47.7 BMI Classification Obese Obese Obese Vital Signs Temperature (97.8 F-99.1 F) 97.8 F 97.3 F L 97.0 F L Temperature Source Temporal Temporal Temporal Pulse Rate (60-100) 88 94 78 Pulse Location Monitor Monitor Monitor Respiratory Rate (12-18) 18 18 Respiratory rate source Observation Observation Oxygen Delivery Method Room Air Room Air Blood Pressure (90/60-120/80) 135/69 H 131/77 H 131/75 H Blood Pressure Mean (mm Hg) 91 95 93 Source Monitor Monitor Monitor Position Sitting Sitting Semi-Fowlers Blood Pressure Location Left Arm Left Arm Right Arm History Since Last Visit- (Skip if this is Patient's initial visit) Have you changed medications since your No No No last visit? Any new allergies or adverse reactions No No No Had a fall/change in ADL's that may No No No increase risk of falls Signs or symptoms of abuse and/or No No No neglect since last visit Have you been in the hospital since your No No No last visit? Has dressing in place as prescribed No Yes Yes Has compression in place as prescribed Yes Yes N/A Has offloadiing in place as prescribed N/A N/A N/A Experienced any changes in pain level or No No No management Left Footwear Regular Shoe Regular Shoe Right Footwear Surgical Shoe Surgical Shoe with pressure with pressure relief insole relief insole Pain Scale: 0-10 Numeric Is Patient Pain Free? Yes Yes Yes 03/04/21 09:52 WC - Today's Visit Information Type of service Follow-up Visit (Physician/ORGANIC GARDENING TEACHER ) Arrival Mode Ambulatory, Walker Arrival Mode (Other) Transfer Assistance None Accompanied by Patient Identification Verified (Name & Yes ) Patient Requires Transmission-Based No Precautions Safety Precautions Finger Stick Blood Sugar(mg/dl) (if 128 indicated): Blood Sugar Stated by Patient Height and Weight Body Mass Index (BMI) 47.7 BMI Classification Obese Vital Signs Temperature (97.8 F-99.1 F) 98.4 F Temperature Source Temporal Pulse Rate (60-100) 88 Pulse Location Monitor Respiratory Rate (12-18) 22 H Respiratory rate source Observation Oxygen Delivery Method Blood Pressure (90/60-120/80) 143/75 H Blood Pressure Mean (mm Hg) 97 Source Monitor Position Blood Pressure Location History Since Last Visit- (Skip if this is Patient's initial visit) Have you changed medications since your No last visit? Any new allergies or adverse reactions No Had a fall/change in ADL's that may No increase risk of falls Signs or symptoms of abuse and/or No neglect since last visit Have you been in the hospital since your No last visit? Has dressing in place as prescribed Yes Has compression in place as prescribed Yes Has offloadiing in place as prescribed Yes Experienced any changes in pain level or No management Left Footwear Right Footwear Surgical Shoe with pressure relief insole Pain Scale: 0-10 Numeric Is Patient Pain Free? Yes WC - Nurse 1 - General Ulcer Measurement Start: 02/11/21 09:15 Freq: Status: Active Protocol: Activity Type Activity Date Activity User E-Sign Co-Sign Detail Recorded Client Recorded Date Recorded By Document 02/11/21 09:15 MW [id number] 02/11/21 09:23 MW Edit Result 02/11/21 09:15 MW (1) [id number] 02/11/21 09:25 MW Document 02/18/21 11:34 MW [id number] 02/18/21 11:45 MW Document 02/25/21 09:14 KR [id number] 02/25/21 09:16 KR Document 03/04/21 09:52 DL [id number] 03/04/21 10:00 DL (1) #4 R PLANTAR POST OP - Tunneling No => Yes - Tunneling Position (O'clock) => 10 - Tunneling Distance (cm) => 1.8 02/11/21 02/18/21 02/25/21 09:15 11:34 09:14 Wound Center Nurse 1 #5 RIGHT LATERAL FOOT POST OP -Combined with other wound No No -Current Size (cm) - Length 0.7 0.2 0.1 -Current Size (cm) - Width 0.2 1.0 0.1 -Current Size (cm) - Depth 0.7 0.5 0.1 -Total Square Cm 0.14 0.20 0.01 -Photo Taken No No -Epithelialization Small 1-33% None Present -Tunneling No -Undermining/Tunneling No No -Circular Undermining No No -Exudate Amt Small Small None Present -Exudate Type Serosanguineous Serosanguineous -Wound Margin Flat & Intact Thickened & Distinct, Rolled Under Outline Attached -Granulation Amt Large (67-100%) Small (1-33%) Small (1-33%) -Granulation Quality [place] -Slough/Fibrin Yes Yes -Necrosis Amt Small (1-33%) Medium (34-66%) None Present (0 %) -Necrotic Tissue Type Adherent Slough Adherent Slough -Structure Exposed N/A N/A -Texture (Michelle-wound Skin Appearance) Assessed, Assessed, Assessed, Scarring Localized Edema Scarring ,Scarring -Moisture (Michelle-wound Skin Appearance) No Abnormality, Assessed No Abnormality, Assessed Assessed -Color (Michelle-wound Skin Appearance) Assessed, No Abnormality, No Abnormality, Hemosiderin Assessed Assessed Staining -Temperature (Michelle-wound Skin No Abnormality No Abnormality No Abnormality Appearance) (Pt Warm) (Pt Warm) (Pt Warm) -Tenderness on Palpation (Michelle-wound Yes No No Skin Appearance) -Ulcer Cleansing soap and water soap and water SOAP AND WATER -Foul Odor after Cleansing No No No -Anesthetic Used 4% Lidocaine 4% Lidocaine 5% Lidocaine Solution Solution Gel #4 R PLANTAR POST OP -Combined with other wound No No -Current Size (cm) - Length 2.8 2.3 2.3 -Current Size (cm) - Width 3.6 2.5 2.1 -Current Size (cm) - Depth 1.8 0.4 0.3 -Total Square Cm 10.08 5.75 4.83 -Photo Taken No No -Epithelialization None Present None Present -Tunneling Yes No -Tunneling Position (O'clock) 10 -Tunneling Distance (cm) 1.8 -Undermining/Tunneling No No -Undermining/Tunneling Starts (O'clock ) -Undermining/Tunneling Ends (O'clock) -Maximum Distance (cm) -Circular Undermining No No -Exudate Amt Medium Medium Large -Exudate Type Purulent Serosanguineous Serosanguineous -Wound Margin Thickened Flat & Intact Distinct, Outline Attached -Granulation Amt Large (67-100%) Large (67-100%) Medium (34-66%) -Granulation Quality Red [place] Red -Slough/Fibrin Yes Yes -Necrosis Amt Small (1-33%) Small (1-33%) Medium (34-66%) -Necrotic Tissue Type Adherent Slough Adherent Slough Adherent Slough -Structure Exposed N/A N/A -Texture (Michelle-wound Skin Appearance) Assessed,Callus Assessed,Callus Assessed, ,Scarring ,Localized Scarring Edema,Scarring -Moisture (Michelle-wound Skin Appearance) Assessed,Dry/ Assessed, No Abnormality, Scaly Maceration Assessed -Color (Michelle-wound Skin Appearance) Assessed, No Abnormality, No Abnormality, Hemosiderin Assessed Assessed Staining -Temperature (Michelle-wound Skin No Abnormality No Abnormality No Abnormality Appearance) (Pt Warm) (Pt Warm) (Pt Warm) -Tenderness on Palpation (Michelle-wound Yes No No Skin Appearance) -Ulcer Cleansing soap and water soap and water SOAP AND WATER -Foul Odor after Cleansing No No No -Anesthetic Used 4% Lidocaine 4% Lidocaine 4% Lidocaine Solution Solution Solution Lower Limb Edema Present No No Right Calf (cm) Right Ankle (cm) 03/04/21 09:52 Wound Center Nurse 1 #5 RIGHT LATERAL FOOT POST OP -Combined with other wound -Current Size (cm) - Length 0 -Current Size (cm) - Width 0 -Current Size (cm) - Depth 0 -Total Square Cm 0 -Photo Taken Yes -Epithelialization -Tunneling -Undermining/Tunneling -Circular Undermining -Exudate Amt None Present -Exudate Type -Wound Margin Flat & Intact -Granulation Amt Large (67-100%) -Granulation Quality [place] -Slough/Fibrin -Necrosis Amt None Present (0 %) -Necrotic Tissue Type -Structure Exposed N/A -Texture (Michelle-wound Skin Appearance) Scarring -Moisture (Michelle-wound Skin Appearance) Dry/Scaly -Color (Michelle-wound Skin Appearance) Hemosiderin Staining -Temperature (Michelle-wound Skin No Abnormality Appearance) (Pt Warm) -Tenderness on Palpation (Michelle-wound No Skin Appearance) -Ulcer Cleansing Wound Cleanser -Foul Odor after Cleansing No -Anesthetic Used #4 R PLANTAR POST OP -Combined with other wound -Current Size (cm) - Length 1.8 -Current Size (cm) - Width 2.5 -Current Size (cm) - Depth 0.5 -Total Square Cm 4.50 -Photo Taken No -Epithelialization -Tunneling -Tunneling Position (O'clock) -Tunneling Distance (cm) -Undermining/Tunneling -Undermining/Tunneling Starts (O'clock 10 ) -Undermining/Tunneling Ends (O'clock) 12 -Maximum Distance (cm) 0.4 -Circular Undermining -Exudate Amt Large -Exudate Type Serosanguineous -Wound Margin Thickened -Granulation Amt Small (1-33%) -Granulation Quality [place] -Slough/Fibrin -Necrosis Amt Large (67-100%) -Necrotic Tissue Type Adherent Slough -Structure Exposed N/A -Texture (Michelle-wound Skin Appearance) Callus, Fluctuance -Moisture (Michelle-wound Skin Appearance) Dry/Scaly -Color (Michelle-wound Skin Appearance) Hemosiderin Staining -Temperature (Michelle-wound Skin No Abnormality Appearance) (Pt Warm) -Tenderness on Palpation (Michelle-wound No Skin Appearance) -Ulcer Cleansing Wound Cleanser -Foul Odor after Cleansing Yes, Due to Product Use -Anesthetic Used 4% Lidocaine Solution Lower Limb Edema Present Right Calf (cm) 48.2 Right Ankle (cm) 32 WC - Nurse 2 - General Ulcer CM Notes Start: 02/11/21 09:15 Freq: Status: Active Protocol: Activity Type Activity Date Activity User E-Sign Co-Sign Detail Recorded Client Recorded Date Recorded By Document 02/11/21 09:40 [id number] 02/11/21 09:52 Document 02/18/21 12:14 [id number] 02/18/21 12:29 Document 02/25/21 09:25 [id number] 02/25/21 09:31 02/11/21 02/18/21 02/25/21 09:40 12:14 09:25 Wound Center Nurse 2 #5 RIGHT LATERAL FOOT POST OP -Time 09:42 12:14 09:30 -Correct Patient Yes Yes Yes -Correct Side, Site, Position Yes Yes Yes -Correct Procedure Yes Yes Yes -Procedure Performed Yes Yes Yes -Type of Procedure Debridement Debridement Debridement -Clinical Debridement Subcutaneous Subcutaneous Subcutaneous -Tissue Removed Subcutaneous Subcutaneous Subcutaneous -Post Debridement (cm) - Length 1.5 0.8 0.1 -Post Debridement (cm) - Width 0.4 0.3 0.1 -Post Debridement (cm) - Depth 0.6 0.5 0.1 -Total Square (Post) (cm) 0.60 0.24 0.01 -Area of Debridement (cm) - Length 1.5 0.8 0.1 -Area of Debridement (cm) - Width 0.4 0.3 0.1 -Total Square (Area) (cm) 0.60 0.24 0.01 -Tunneling No No No -Undermining/Tunneling No No -Circular Undermining No No No -Wound/Ulcer Outcome Not Healed Not Healed Not Healed -Ulcer Cleansing Rinsed/ Rinsed/ Rinsed/ Irrigated with Irrigated with Irrigated with Saline Saline Saline -Foul Odor after Cleansing No No No -Bioengineered Tissue No No No -Bleeding Controlled with Pressure Pressure -Offloading Yes Yes -Type of Offloading Surgical Shoe Surgical Shoe -Treatment Response Procedure Procedure Tolerated Well Tolerated Well -Debridement - Subq, 1st 20sq cm Yes Yes Yes #4 R PLANTAR POST OP -Time 09:51 12:14 09:25 -Correct Patient Yes Yes Yes -Correct Side, Site, Position Yes Yes Yes -Correct Procedure Yes Yes Yes -Procedure Performed Yes Yes Yes -Type of Procedure Debridement Debridement Debridement -Clinical Debridement Muscle / Fascia Muscle / Fascia Subcutaneous -Tissue Removed Muscle Muscle Subcutaneous -Post Debridement (cm) - Length 3 2.7 2.2 -Post Debridement (cm) - Width 3.3 2.9 2.2 -Post Debridement (cm) - Depth 1.8 0.8 0.5 -Total Square (Post) (cm) 9.9 7.83 4.84 -Area of Debridement (cm) - Length 3 2.7 2.2 -Area of Debridement (cm) - Width 3.3 2.9 2.2 -Total Square (Area) (cm) 9.9 7.83 4.84 -Tunneling No No No -Undermining/Tunneling No No -Circular Undermining No No No -Wound/Ulcer Outcome Not Healed Not Healed Not Healed -Ulcer Cleansing Rinsed/ Rinsed/ Rinsed/ Irrigated with Irrigated with Irrigated with Saline Saline Saline -Foul Odor after Cleansing No No No -Bioengineered Tissue No Yes Yes -Type of Bioengineered Tissue [place] Ther[place]in -Expiration Date 04/30/24 08/24/24 -Product Lot Number [id number] -Percent Used 100 100 -Lot number of Saline Used [id number] -Bleeding Controlled with Pressure Pressure Pressure -Offloading Yes Yes Yes -Type of Offloading Surgical Shoe Surgical Shoe Surgical Shoe -Treatment Response Procedure Procedure Procedure Tolerated Well Tolerated Well Tolerated Well -Debridement - Subq, 1st 20sq cm No -Debridement - Muscle / Fascia, 1st Yes No 20sq cm -Apply Skin Sub - 1st 25 sq cm - Feet 1 1 -Theraskin (per sq cm) 13 6 Pain Scale: 0-10 Numeric Is Patient Pain Free? Yes Yes Yes WC - Nurse 3 - General Ulcer D/C NN Start: 02/11/21 09:15 Freq: Status: Active Protocol: Activity Type Activity Date Activity User E-Sign Co-Sign Detail Recorded Client Recorded Date Recorded By Document 02/11/21 10:08 [id number] 02/11/21 10:09 MW Document 02/18/21 12:30 [id number] 02/18/21 12:31 Document 02/25/21 09:36 [id number] 02/25/21 09:37 02/11/21 02/18/21 02/25/21 10:08 12:30 09:36 Wound Care Nurse 3 #5 RIGHT LATERAL FOOT POST OP -Ulcer Cleansing Rinsed/ Rinsed/ Rinsed/ Irrigated with Irrigated with Irrigated with Saline Saline Saline -Foul Odor after Cleansing No No -Negative Pressure Wound Therapy N/A Discontinue -Primary Dressing Applied Mepilex Border -Other Dressing betadine -Primary Dressing Covered/Secured with Dry Gauze & Dry Gauze, Roll Gauze, Secured with Secured with Tape Tape -Other Covering abd pad -Mepilex Border 1 #4 R PLANTAR POST OP -Ulcer Cleansing Rinsed/ Rinsed/ Rinsed/ Irrigated with Irrigated with Irrigated with Saline Saline Saline -Foul Odor after Cleansing No No No -Negative Pressure Wound Therapy N/A Continue Continue -Setting (mmHg) 125 125 -Negative Pressure is Continuous Continuous -Other Dressing betadine -Primary Dressing Covered/Secured with Dry Gauze & Roll Gauze, Secured with Tape -Other Covering abd pad -NPWT Application Charge ($) NPWT </= 50 sq NPWT </= 50 sq cm cm Right -Compression Wrap Jens Wrap Jens Wrap Jens Wrap Treatment Response Procedure Tolerated Well Pain Scale: 0-10 Numeric Is Patient Pain Free? Yes Yes Yes Teaching: Wound Center Dressing Your Wound -Person Taught Patient -Teaching Method Discussion, Demonstration -Response to teaching Verbalize understanding WC - Visit Discharge Discharge Condition Stable Stable Stable Ambulatory Status Ambulatory, Ambulatory, Ambulatory, Walker Walker Walker Transportation Private Auto Private Auto Accompanied by self Medication Reconcilliation completed & No Yes Yes provided to patient/care provider Clinical Summary of Care Provided Yes Yes Yes Wound debrided: Plantar foot Laterality: Right Wound Grade/Stage: Sams 3 Type of Debridement: Excisional debridement Anesthesia Used: 4% Lidocaine Solution Depth: to bone Percentage of wound debrided: 100 Instrument Used: 3mm curette Tissue Removed: includes fibrous, devitalized, biofilm, callus and slough tissue Severity: Necrosis of Bone Amount of bleeding with debridement: Mild Bleeding Controlled with: Pressure Patient tolerated procedure: Patient tolerated procedure well Assessment/Plan Assessment/Plan (1) Non-pressure chronic ulcer of other part of right foot with fat layer exposed: CODE(S): L97.512 - Non-pressure chronic ulcer of other part of right foot with fat layer exposed (2) 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: CODE(S): L97.414 - Non-pressure chronic ulcer of right heel and midfoot with necrosis of bone (3) Osteomyelitis: CODE(S): M86.9 - Osteomyelitis, unspecified QUALIFIERS: Osteomyelitis type: other acute Osteomyelitis location: foot Laterality: right Qualified Code(s): M86.171 - Other acute osteomyelitis, right ankle and foot (4) Type 2 diabetes mellitus with diabetic polyneuropathy: CODE(S): E11.42 - Type 2 diabetes mellitus with diabetic polyneuropathy QUALIFIERS: Diabetes mellitus server insulin use: unspecified server insulin use status Qualified Code(s): E11.42 - Type 2 diabetes mellitus with diabetic polyneuropathy (5) Obese: CODE(S): E66.9 - Obesity, unspecified QUALIFIERS: Obesity type: due to excess calories Obesity classification: adult class 3 (BMI >= 40) Serious obesity comorbidity presence: with serious comorbidity Body mass index: BMI 40.0-44.9 Qualified Code(s): E66.01 - Morbid (severe) obesity due to excess calories; Z68.41 - Body mass index [BMI]40.0-44.9, adult (6) History of amputation of foot: CODE(S): Z89.439 - Acquired absence of unspecified foot QUALIFIERS: Laterality: right Qualified Code(s): Z89.431 - Acquired absence of right foot (7) Charcot's joint, right ankle and foot: CODE(S): M14.671 - Charcot's joint, right ankle and foot (8) Bilateral lower extremity edema: CODE(S): R60.0 - Localized edema PLAN: Patient seen and examined. Wound noted to have mild malodor with worsening maceration. Wound probes to bone. I reviewed and discussed his case. It is noted that he is s/p debridement right foot on 01/15/[address] Otoole including bone. He was positive for osteomyelitis. He has since been treated with a wound VAC and offloading. Patient to remain nonweightbearing to the right lower extremity. Use wheelchair or knee walker. Patient is noted to also have gotten an electric scooter in order to offload his foot Reviewed culture results 01/15/2021. Wound cultures demonstrate group B streptococcus, MRSA, and corynebacterium from the foot wound. There is also noted to be strep agalactiae noted in his blood culture. OR cultures of the cuboid bone was positive for beta Streptococcus and corynebacterium. MRI was reviewed showing both Charcot changes and concern for osteomyelitis of the plantar cuboid area with ulcerations. Patient is noted to be taking doxycycline and Augmentin per infectious disease, Dr. Soto. Cultures are coming and 02/11/2021 demonstrated Streptococcus agalactiae, Propionibacterium acnes, anaerobic cocci. Patient relates that he finished his antibiotics a couple days ago and has a prescription that he has yet to filled. Encourage patient to fill prescription in order to complete complete antibiotic treatment course per infectious disease He is at risk for further amputation of foot or leg. He has a [facility] walker ready at [facility] once healed. If he feels he can get his foot in there with a minimal dressing he can begin wearing this for offloading. I recommend [place] for nutritional supplementation to optimize healing. All questions answered Patient was approved for TheraSkin wound graft applications. Discussed taking a break from grafting and wound VAC therapy in order to dry out the macerated wound bed. Recommended daily wet-to-dry Dakin's dressing changes at this time. We will put wound VAC on hold at this time. Will reassess next week. To follow-up in 1 week Note: [employer] speech recognition butadiene converter utility operator software was used to create portions of this document. Sound-alike and misspelled words, as well as other butadiene converter utility operator errors may be contained in the documentation.
[2021-03-11 10:09] VITALS: BP 149/76; PULSE 87; RESP 18; TEMP 36; BMI 47.7
--- NOTE | 2021-03-11 12:42 | PN.PCM_ITS ---
History of Present Illness Date of Service: 03/11/21 Chief Complaint: Right foot plantar lateral ulceration status post fourth and fifth ray partial amputation-healed History of Wound: Patient is a 50-year-old male who presents to the wound care center for follow-up of hospital visit after surgical debridement with Dr. Otoole on 01-15-21 including bone. He was using a wound VAC. Patient was discharged from the hospital on doxycycline and Augmentin per infectious disease. Patient has been approved for theraskin grafts for helaing. Patient has obtained a knee scooter as well as an electric scooter to be able to offload his ulceration site Progress of Wound: Improved Subjective Subjective Patient seen and examined resting comfortably. Patient denies any new pedal complaints. Patient denies any nausea, fever, chills, chest pain, shortness of breath, cough, streaking, purulence, vomiting. Relates he was unable to obtain the dakins solution Objective Data Objective Data Vital Signs: Vital Signs Temp Pulse Resp BP 96.8 F L 87 18 149/76 H 03/11/21 10:09 03/11/21 10:09 03/11/21 10:09 03/11/21 10:09 Oxygen Delivery Method Room Air Body Mass Index (BMI) 47.7 Lab / Micro Data Micro: Microbiology 02/11/21 09:47 Wound - Heel, Left Gram Stain - Final 02/11/21 09:47 Wound - Heel, Left Wound Culture - Final Streptococcus agalactiae (B) Proprionibacterium acnes 02/11/21 09:47 Wound - Heel, Left Anaerobic Culture - Final Anaerobic cocci Physical Exam Narrative Const alert and oriented x3 General Appearance: cooperative HEENT normocephalic Extremity Extremity Narrative: No calf tenderness Diminished pulses Compartments remain soft to palpate right lower extremity General Extremity: edema and no tenderness to palpation of joints or extremities; Negative for cyanosis Skin Skin Narrative: Ulceration noted to plantar and lateral right foot with plantar foot wound probing to bone and lateral foot remains healed no purulence, no streaking, no erythema. Periwound maceration has improved to plantar foot. There is devitalized subcutaneous and plantar probes to bone. No bogginess or fluctuance. No signs of infection. Decreased serous drainage noted from plantar foot. There is no malodor noted today General Skin Exam: Negative for erythema MSK Muscle wasting noted Charcot foot with rocker-bottom deformity and fourth and fifth ray resection right Neuro Neuro Narrative: lack of normal epicritic sensation via light touch is consistent with neuropathy status Psych cooperative and affect normal Debridement Note Debridement Note Post-Debridement Measurements and Additional Note: Post-Debridement Measurements/Treatment - Nurse 1 - General Ulcer Assessment Start: 02/11/21 09:15 Freq: Status: Active Protocol: SANDEEP.LOWEXT Activity Type Activity Date Activity User E-Sign Co-Sign Detail Recorded Client Recorded Date Recorded By Document 02/11/21 09:15 MW [id number] 02/11/21 09:23 MW Document 02/18/21 11:32 MW [id number] 02/18/21 11:34 MW Document 02/25/21 09:14 KR [id number] 02/25/21 09:16 KR Document 03/04/21 09:52 DL [id number] 03/04/21 10:00 DL Document 03/11/21 10:09 MW [id number] 03/11/21 10:19 MW 02/11/21 02/18/21 02/25/21 09:15 11:32 09:14 - Today's Visit Information Type of service Follow-up Visit Follow-up Visit Follow-up Visit (Physician/CHEMICAL LAB TECHNICIAN (Physician/CHEMICAL LAB TECHNICIAN (Physician/CHEMICAL LAB TECHNICIAN ) ) ) Arrival Mode Ambulatory, Ambulatory, Ambulatory Other Other Arrival Mode (Other) knee walker knee walker Transfer Assistance None None Accompanied by self self Patient Identification Verified (Name & Yes Yes Yes ) Patient Requires Transmission-Based No No Precautions Safety Precautions NA Finger Stick Blood Sugar(mg/dl) (if 102 indicated): Blood Sugar Stated by Patient Height and Weight Body Mass Index (BMI) 47.7 47.7 47.7 BMI Classification Obese Obese Obese Vital Signs Temperature (97.8 F-99.1 F) 97.8 F 97.3 F L 97.0 F L Temperature Source Temporal Temporal Temporal Pulse Rate (60-100) 88 94 78 Pulse Location Monitor Monitor Monitor Respiratory Rate (12-18) 18 18 Respiratory rate source Observation Observation Oxygen Delivery Method Room Air Room Air Blood Pressure (90/60-120/80) 135/69 H 131/77 H 131/75 H Blood Pressure Mean (mm Hg) 91 95 93 Source Monitor Monitor Monitor Position Sitting Sitting Semi-Fowlers Blood Pressure Location Left Arm Left Arm Right Arm History Since Last Visit- (Skip if this is Patient's initial visit) Have you changed medications since your No No No last visit? Any new allergies or adverse reactions No No No Had a fall/change in ADL's that may No No No increase risk of falls Signs or symptoms of abuse and/or No No No neglect since last visit Have you been in the hospital since your No No No last visit? Has dressing in place as prescribed No Yes Yes Has compression in place as prescribed Yes Yes N/A Has offloadiing in place as prescribed N/A N/A N/A Experienced any changes in pain level or No No No management Left Footwear Regular Shoe Regular Shoe Right Footwear Surgical Shoe Surgical Shoe with pressure with pressure relief insole relief insole Pain Scale: 0-10 Numeric Is Patient Pain Free? Yes Yes Yes 03/04/21 03/11/21 09:52 10:09 WC - Today's Visit Information Type of service Follow-up Visit Follow-up Visit (Physician/CHEMICAL LAB TECHNICIAN (Physician/CHEMICAL LAB TECHNICIAN ) ) Arrival Mode Ambulatory, Ambulatory, Walker Other Arrival Mode (Other) knee walker Transfer Assistance None None Accompanied by self Patient Identification Verified (Name & Yes Yes ) Patient Requires Transmission-Based No No Precautions Safety Precautions NA Finger Stick Blood Sugar(mg/dl) (if 128 128 indicated): Blood Sugar Stated by Stated by Patient Patient Height and Weight Body Mass Index (BMI) 47.7 47.7 BMI Classification Obese Obese Vital Signs Temperature (97.8 F-99.1 F) 98.4 F 96.8 F L Temperature Source Temporal Temporal Pulse Rate (60-100) 88 87 Pulse Location Monitor Monitor Respiratory Rate (12-18) 22 H 18 Respiratory rate source Observation Observation Oxygen Delivery Method Room Air Blood Pressure (90/60-120/80) 143/75 H 149/76 H Blood Pressure Mean (mm Hg) 97 100 Source Monitor Monitor Position Sitting Blood Pressure Location Left Arm History Since Last Visit- (Skip if this is Patient's initial visit) Have you changed medications since your No No last visit? Any new allergies or adverse reactions No No Had a fall/change in ADL's that may No No increase risk of falls Signs or symptoms of abuse and/or No No neglect since last visit Have you been in the hospital since your No No last visit? Has dressing in place as prescribed Yes Yes Has compression in place as prescribed Yes Yes Has offloadiing in place as prescribed Yes N/A Experienced any changes in pain level or No No management Left Footwear Regular Shoe Right Footwear Surgical Shoe Surgical Shoe with pressure with pressure relief insole relief insole Pain Scale: 0-10 Numeric Is Patient Pain Free? Yes Yes WC - Nurse 1 - General Ulcer Measurement Start: 02/11/21 09:15 Freq: Status: Active Protocol: Activity Type Activity Date Activity User E-Sign Co-Sign Detail Recorded Client Recorded Date Recorded By Document 02/11/21 09:15 MW [id number] 02/11/21 09:23 MW Edit Result 02/11/21 09:15 MW (1) [id number] 02/11/21 09:25 MW Document 02/18/21 11:34 MW [id number] 02/18/21 11:45 MW Document 02/25/21 09:14 KR [id number] 02/25/21 09:16 KR Document 03/04/21 09:52 DL [id number] 03/04/21 10:00 DL Document 03/11/21 10:09 MW [id number] 03/11/21 10:19 MW (1) #4 R PLANTAR POST OP - Tunneling No => Yes - Tunneling Position (O'clock) => 10 - Tunneling Distance (cm) => 1.8 02/11/21 02/18/21 02/25/21 09:15 11:34 09:14 Wound Center Nurse 1 #5 RIGHT LATERAL FOOT POST OP -Combined with other wound No No -Current Size (cm) - Length 0.7 0.2 0.1 -Current Size (cm) - Width 0.2 1.0 0.1 -Current Size (cm) - Depth 0.7 0.5 0.1 -Total Square Cm 0.14 0.20 0.01 -Photo Taken No No -Epithelialization Small 1-33% None Present -Tunneling No -Undermining/Tunneling No No -Circular Undermining No No -Exudate Amt Small Small None Present -Exudate Type Serosanguineous Serosanguineous -Wound Margin Flat & Intact Thickened & Distinct, Rolled Under Outline Attached -Granulation Amt Large (67-100%) Small (1-33%) Small (1-33%) -Granulation Quality [place] -Slough/Fibrin Yes Yes -Necrosis Amt Small (1-33%) Medium (34-66%) None Present (0 %) -Necrotic Tissue Type Adherent Slough Adherent Slough -Structure Exposed N/A N/A -Texture (Michelle-wound Skin Appearance) Assessed, Assessed, Assessed, Scarring Localized Edema Scarring ,Scarring -Moisture (Michelle-wound Skin Appearance) No Abnormality, Assessed No Abnormality, Assessed Assessed -Color (Michelle-wound Skin Appearance) Assessed, No Abnormality, No Abnormality, Hemosiderin Assessed Assessed Staining -Temperature (Michelle-wound Skin No Abnormality No Abnormality No Abnormality Appearance) (Pt Warm) (Pt Warm) (Pt Warm) -Tenderness on Palpation (Michelle-wound Yes No No Skin Appearance) -Ulcer Cleansing soap and water soap and water SOAP AND WATER -Foul Odor after Cleansing No No No -Anesthetic Used 4% Lidocaine 4% Lidocaine 5% Lidocaine Solution Solution Gel #4 R PLANTAR POST OP -Combined with other wound No No -Current Size (cm) - Length 2.8 2.3 2.3 -Current Size (cm) - Width 3.6 2.5 2.1 -Current Size (cm) - Depth 1.8 0.4 0.3 -Total Square Cm 10.08 5.75 4.83 -Photo Taken No No -Epithelialization None Present None Present -Tunneling Yes No -Tunneling Position (O'clock) 10 -Tunneling Distance (cm) 1.8 -Undermining/Tunneling No No -Undermining/Tunneling Starts (O'clock ) -Undermining/Tunneling Ends (O'clock) -Maximum Distance (cm) -Circular Undermining No No -Exudate Amt Medium Medium Large -Exudate Type Purulent Serosanguineous Serosanguineous -Wound Margin Thickened Flat & Intact Distinct, Outline Attached -Granulation Amt Large (67-100%) Large (67-100%) Medium (34-66%) -Granulation Quality Red [place] Red -Slough/Fibrin Yes Yes -Necrosis Amt Small (1-33%) Small (1-33%) Medium (34-66%) -Necrotic Tissue Type Adherent Slough Adherent Slough Adherent Slough -Structure Exposed N/A N/A -Texture (Michelle-wound Skin Appearance) Assessed,Callus Assessed,Callus Assessed, ,Scarring ,Localized Scarring Edema,Scarring -Moisture (Michelle-wound Skin Appearance) Assessed,Dry/ Assessed, No Abnormality, Scaly Maceration Assessed -Color (Michelle-wound Skin Appearance) Assessed, No Abnormality, No Abnormality, Hemosiderin Assessed Assessed Staining -Temperature (Michelle-wound Skin No Abnormality No Abnormality No Abnormality Appearance) (Pt Warm) (Pt Warm) (Pt Warm) -Tenderness on Palpation (Michelle-wound Yes No No Skin Appearance) -Ulcer Cleansing soap and water soap and water SOAP AND WATER -Foul Odor after Cleansing No No No -Anesthetic Used 4% Lidocaine 4% Lidocaine 4% Lidocaine Solution Solution Solution Lower Limb Edema Present No No Right Calf (cm) Right Ankle (cm) 03/04/21 03/11/21 09:52 10:09 Wound Center Nurse 1 #5 RIGHT LATERAL FOOT POST OP -Combined with other wound -Current Size (cm) - Length 0 -Current Size (cm) - Width 0 -Current Size (cm) - Depth 0 -Total Square Cm 0 -Photo Taken Yes -Epithelialization -Tunneling -Undermining/Tunneling -Circular Undermining -Exudate Amt None Present -Exudate Type -Wound Margin Flat & Intact -Granulation Amt Large (67-100%) -Granulation Quality [place] -Slough/Fibrin -Necrosis Amt None Present (0 %) -Necrotic Tissue Type -Structure Exposed N/A -Texture (Michelle-wound Skin Appearance) Scarring -Moisture (Michelle-wound Skin Appearance) Dry/Scaly -Color (Michelle-wound Skin Appearance) Hemosiderin Staining -Temperature (Michelle-wound Skin No Abnormality Appearance) (Pt Warm) -Tenderness on Palpation (Michelle-wound No Skin Appearance) -Ulcer Cleansing Wound Cleanser -Foul Odor after Cleansing No -Anesthetic Used #4 R PLANTAR POST OP -Combined with other wound No -Current Size (cm) - Length 1.8 1.2 -Current Size (cm) - Width 2.5 2.0 -Current Size (cm) - Depth 0.5 0.4 -Total Square Cm 4.50 2.40 -Photo Taken No No -Epithelialization None Present -Tunneling No -Tunneling Position (O'clock) -Tunneling Distance (cm) -Undermining/Tunneling No -Undermining/Tunneling Starts (O'clock 10 ) -Undermining/Tunneling Ends (O'clock) 12 -Maximum Distance (cm) 0.4 -Circular Undermining No -Exudate Amt Large Medium -Exudate Type Serosanguineous Serosanguineous -Wound Margin Thickened Thickened -Granulation Amt Small (1-33%) Medium (34-66%) -Granulation Quality [place] -Slough/Fibrin Yes -Necrosis Amt Large (67-100%) Medium (34-66%) -Necrotic Tissue Type Adherent Slough Adherent Slough -Structure Exposed N/A N/A -Texture (Michelle-wound Skin Appearance) Callus, Assessed, Fluctuance Scarring -Moisture (Michelle-wound Skin Appearance) Dry/Scaly Assessed, Maceration -Color (Michelle-wound Skin Appearance) Hemosiderin No Abnormality, Staining Assessed -Temperature (Michelle-wound Skin No Abnormality No Abnormality Appearance) (Pt Warm) (Pt Warm) -Tenderness on Palpation (Michelle-wound No No Skin Appearance) -Ulcer Cleansing Wound Cleanser Rinsed/ Irrigated with Saline -Foul Odor after Cleansing Yes, Due to No Product Use -Anesthetic Used 4% Lidocaine 4% Lidocaine Solution Solution Lower Limb Edema Present No Right Calf (cm) 48.2 Right Ankle (cm) 32 WC - Nurse 2 - General Ulcer CM Notes Start: 02/11/21 09:15 Freq: Status: Active Protocol: Activity Type Activity Date Activity User E-Sign Co-Sign Detail Recorded Client Recorded Date Recorded By Document 02/11/21 09:40 [id number] 02/11/21 09:52 JF Document 02/18/21 12:14 [id number] 02/18/21 12:29 JF Document 02/25/21 09:25 JF [id number] 02/25/21 09:31 JF Document 03/04/21 10:11 JF [id number] 03/04/21 10:20 Edit Result 03/04/21 10:11 JF (1) [id number] 03/05/21 06:59 PL Document 03/11/21 10:47 JF [id number] 03/11/21 10:56 JF (1) #5 RIGHT LATERAL FOOT POST OP - Debridement - Subq, 1st 20sq cm Yes => No 02/11/21 02/18/21 02/25/21 09:40 12:14 09:25 Wound Center Nurse 2 #5 RIGHT LATERAL FOOT POST OP -Time 09:42 12:14 09:30 -Correct Patient Yes Yes Yes -Correct Side, Site, Position Yes Yes Yes -Correct Procedure Yes Yes Yes -Procedure Performed Yes Yes Yes -Type of Procedure Debridement Debridement Debridement -Clinical Debridement Subcutaneous Subcutaneous Subcutaneous -Tissue Removed Subcutaneous Subcutaneous Subcutaneous -Post Debridement (cm) - Length 1.5 0.8 0.1 -Post Debridement (cm) - Width 0.4 0.3 0.1 -Post Debridement (cm) - Depth 0.6 0.5 0.1 -Total Square (Post) (cm) 0.60 0.24 0.01 -Area of Debridement (cm) - Length 1.5 0.8 0.1 -Area of Debridement (cm) - Width 0.4 0.3 0.1 -Total Square (Area) (cm) 0.60 0.24 0.01 -Tunneling No No No -Undermining/Tunneling No No -Circular Undermining No No No -Wound/Ulcer Outcome Not Healed Not Healed Not Healed -Ulcer Cleansing Rinsed/ Rinsed/ Rinsed/ Irrigated with Irrigated with Irrigated with Saline Saline Saline -Foul Odor after Cleansing No No No -Bioengineered Tissue No No No -Bleeding Controlled with Pressure Pressure -Offloading Yes Yes -Type of Offloading Surgical Shoe Surgical Shoe -Treatment Response Procedure Procedure Tolerated Well Tolerated Well -Debridement - Subq, 1st 20sq cm Yes Yes Yes #4 R PLANTAR POST OP -Time 09:51 12:14 09:25 -Correct Patient Yes Yes Yes -Correct Side, Site, Position Yes Yes Yes -Correct Procedure Yes Yes Yes -Procedure Performed Yes Yes Yes -Type of Procedure Debridement Debridement Debridement -Clinical Debridement Muscle / Fascia Muscle / Fascia Subcutaneous -Tissue Removed Muscle Muscle Subcutaneous -Post Debridement (cm) - Length 3 2.7 2.2 -Post Debridement (cm) - Width 3.3 2.9 2.2 -Post Debridement (cm) - Depth 1.8 0.8 0.5 -Total Square (Post) (cm) 9.9 7.83 4.84 -Area of Debridement (cm) - Length 3 2.7 2.2 -Area of Debridement (cm) - Width 3.3 2.9 2.2 -Total Square (Area) (cm) 9.9 7.83 4.84 -Tunneling No No No -Undermining/Tunneling No No -Circular Undermining No No No -Wound/Ulcer Outcome Not Healed Not Healed Not Healed -Ulcer Cleansing Rinsed/ Rinsed/ Rinsed/ Irrigated with Irrigated with Irrigated with Saline Saline Saline -Foul Odor after Cleansing No No No -Bioengineered Tissue No Yes Yes -Type of Bioengineered Tissue Theraskin Theraskin -Expiration Date 04/30/24 08/24/24 -Product Lot Number [id number] -Percent Used 100 100 -Lot number of Saline Used [id number] -Bleeding Controlled with Pressure Pressure Pressure -Offloading Yes Yes Yes -Type of Offloading Surgical Shoe Surgical Shoe Surgical Shoe -Treatment Response Procedure Procedure Procedure Tolerated Well Tolerated Well Tolerated Well -Debridement - Subq, 1st 20sq cm No -Debridement - Muscle / Fascia, 1st Yes No 20sq cm -Apply Skin Sub - 1st 25 sq cm - Feet 1 1 -Theraskin (per sq cm) 13 6 Pain Scale: 0-10 Numeric Is Patient Pain Free? Yes Yes Yes 03/04/21 03/11/21 10:11 10:47 Wound Center Nurse 2 #5 RIGHT LATERAL FOOT POST OP -Time 10:12 -Correct Patient No -Correct Side, Site, Position No -Correct Procedure No -Procedure Performed No -Type of Procedure -Clinical Debridement -Tissue Removed -Post Debridement (cm) - Length 0 -Post Debridement (cm) - Width 0 -Post Debridement (cm) - Depth 0 -Total Square (Post) (cm) 0 -Area of Debridement (cm) - Length 0 -Area of Debridement (cm) - Width 0 -Total Square (Area) (cm) 0 -Tunneling No -Undermining/Tunneling No -Circular Undermining No -Wound/Ulcer Outcome Healed- Epithelialized -Ulcer Cleansing Rinsed/ Irrigated with Saline -Foul Odor after Cleansing No -Bioengineered Tissue No -Bleeding Controlled with Pressure -Offloading No -Type of Offloading -Treatment Response Procedure Tolerated Well -Debridement - Subq, 1st 20sq cm No #4 R PLANTAR POST OP -Time 10:19 10:48 -Correct Patient Yes Yes -Correct Side, Site, Position Yes Yes -Correct Procedure Yes Yes -Procedure Performed Yes Yes -Type of Procedure Debridement Debridement -Clinical Debridement Subcutaneous Subcutaneous -Tissue Removed Subcutaneous Subcutaneous -Post Debridement (cm) - Length 1 1.3 -Post Debridement (cm) - Width 2.2 1.8 -Post Debridement (cm) - Depth 1.5 0.5 -Total Square (Post) (cm) 2.2 2.34 -Area of Debridement (cm) - Length 1 1.3 -Area of Debridement (cm) - Width 2.2 1.8 -Total Square (Area) (cm) 2.2 2.34 -Tunneling No No -Undermining/Tunneling No No -Circular Undermining No No -Wound/Ulcer Outcome Not Healed Not Healed -Ulcer Cleansing Rinsed/ Rinsed/ Irrigated with Irrigated with Saline Saline -Foul Odor after Cleansing No No -Bioengineered Tissue No Yes -Type of Bioengineered Tissue Theraskin -Expiration Date 08/10/24 -Product Lot Number [id number] -Percent Used 100 -Lot number of Saline Used [id number] -Bleeding Controlled with Pressure Pressure -Offloading Yes Yes -Type of Offloading Surgical Shoe Knee Walker -Treatment Response Procedure Procedure Tolerated Well Tolerated Well -Debridement - Subq, 1st 20sq cm Yes No -Debridement - Muscle / Fascia, 1st 20sq cm -Apply Skin Sub - 1st 25 sq cm - Feet 1 -Theraskin (per sq cm) 3 Pain Scale: 0-10 Numeric Is Patient Pain Free? Yes Yes WC - Nurse 3 - General Ulcer D/C NN Start: 02/11/21 09:15 Freq: Status: Active Protocol: Activity Type Activity Date Activity User E-Sign Co-Sign Detail Recorded Client Recorded Date Recorded By Document 02/11/21 10:08 MW [id number] 02/11/21 10:09 MW Document 02/18/21 12:30 JF [id number] 02/18/21 12:31 JF Document 02/25/21 09:36 JF [id number] 02/25/21 09:37 JF Document 03/04/21 10:38 DL [id number] 03/04/21 10:39 DL Document 03/11/21 11:06 MW [id number] 03/11/21 11:06 MW 02/11/21 02/18/21 02/25/21 10:08 12:30 09:36 Wound Care Nurse 3 #5 RIGHT LATERAL FOOT POST OP -Ulcer Cleansing Rinsed/ Rinsed/ Rinsed/ Irrigated with Irrigated with Irrigated with Saline Saline Saline -Foul Odor after Cleansing No No -Negative Pressure Wound Therapy N/A Discontinue -Primary Dressing Applied Mepilex Border -Other Dressing betadine -Primary Dressing Covered/Secured with Dry Gauze & Dry Gauze, Roll Gauze, Secured with Secured with Tape Tape -Other Covering abd pad -Mepilex Border 1 #4 R PLANTAR POST OP -Ulcer Cleansing Rinsed/ Rinsed/ Rinsed/ Irrigated with Irrigated with Irrigated with Saline Saline Saline -Foul Odor after Cleansing No No No -Negative Pressure Wound Therapy N/A Continue Continue -Setting (mmHg) 125 125 -Negative Pressure is Continuous Continuous -Other Dressing betadine -Primary Dressing Covered/Secured with Dry Gauze & Roll Gauze, Secured with Tape -Other Covering abd pad -NPWT Application Charge ($) NPWT </= 50 sq NPWT </= 50 sq cm cm Right -Lotion applied to leg before compression wrap -Compression Wrap Jens Wrap Jens Wrap Jens Wrap -Other Treatment Response Procedure Tolerated Well Pain Scale: 0-10 Numeric Is Patient Pain Free? Yes Yes Yes Teaching: Wound Center Compression Wraps & Stockings -Person Taught -Teaching Method -Response to teaching Dressing Your Wound -Person Taught Patient -Teaching Method Discussion, Demonstration -Response to teaching Verbalize understanding WC - Visit Discharge Discharge Condition Stable Stable Stable Ambulatory Status Ambulatory, Ambulatory, Ambulatory, Walker Walker Walker Transportation Private Auto Private Auto Accompanied by self Medication Reconcilliation completed & No Yes Yes provided to patient/care provider Clinical Summary of Care Provided Yes Yes Yes Notes: Facility Type Orders Sent 03/04/21 03/11/21 10:38 11:06 Wound Care Nurse 3 #5 RIGHT LATERAL FOOT POST OP -Ulcer Cleansing -Foul Odor after Cleansing -Negative Pressure Wound Therapy -Primary Dressing Applied -Other Dressing -Primary Dressing Covered/Secured with -Other Covering -Mepilex Border #4 R PLANTAR POST OP -Ulcer Cleansing Wound Cleanser Not Cleansed -Foul Odor after Cleansing No No -Negative Pressure Wound Therapy N/A -Setting (mmHg) -Negative Pressure is -Other Dressing betadine -Primary Dressing Covered/Secured with Dry Gauze & Dry Gauze & Roll Gauze, Roll Gauze, Secured with Secured with Tape Tape -Other Covering ABD PADS -NPWT Application Charge ($) Right -Lotion applied to leg before No compression wrap -Compression Wrap Jens Wrap -Other jens Treatment Response Procedure Procedure Tolerated Well Tolerated Well Pain Scale: 0-10 Numeric Is Patient Pain Free? Yes Yes Teaching: Wound Center Compression Wraps & Stockings -Person Taught Patient -Teaching Method Discussion, Demonstration -Response to teaching Verbalize understanding Dressing Your Wound -Person Taught Patient -Teaching Method Discussion, Demonstration -Response to teaching Verbalize understanding WC - Visit Discharge Discharge Condition Stable Stable Ambulatory Status Ambulatory Ambulatory, Walker Transportation Private Auto taxi Accompanied by Medication Reconcilliation completed & No provided to patient/care provider Clinical Summary of Care Provided Yes Notes: Pt to resume Dakins at home. Vac on hold. Facility Type Home Health Orders Sent Yes Wound debrided: plantar foot Laterality: Right Wound Grade/Stage: sanchez 3 Type of Debridement: Excisional debridement Anesthesia Used: 4% Lidocaine Solution Depth: to bone (debrided to sub q) Percentage of wound debrided: 100 Instrument Used: 3mm curette Tissue Removed: includes fibrous, devitalized, biofilm, callus and slough tissue Severity: Necrosis of Bone Amount of bleeding with debridement: Mild Bleeding Controlled with: Pressure Patient tolerated procedure: Patient tolerated procedure well Assessment/Plan Assessment/Plan (1) Non-pressure chronic ulcer of other part of right foot with fat layer exposed: CODE(S): L97.512 - Non-pressure chronic ulcer of other part of right foot with fat layer exposed (2) 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: CODE(S): L97.414 - Non-pressure chronic ulcer of right heel and midfoot with necrosis of bone (3) Osteomyelitis: CODE(S): M86.9 - Osteomyelitis, unspecified QUALIFIERS: Laterality: right Osteomyelitis location: foot Osteomyelitis type: other acute Qualified Code(s): M86.171 - Other acute osteomyelitis, right ankle and foot (4) Type 2 diabetes mellitus with diabetic polyneuropathy: CODE(S): E11.42 - Type 2 diabetes mellitus with diabetic polyneuropathy QUALIFIERS: 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 supervisor insulin use status Qualified Code(s): E11.42 - Type 2 diabetes mellitus with diabetic polyneuropathy (5) Obese: CODE(S): E66.9 - Obesity, unspecified QUALIFIERS: Body mass index: BMI 40.0-44.9 Obesity classification: adult class 3 (BMI >= 40) Obesity type: due to excess calories Serious obesity comorbidity presence: with serious comorbidity Qualified Code(s): E66.01 - Morbid (severe) obesity due to excess calories; Z68.41 - Body mass index [BMI]40.0-44.9, adult (6) History of amputation of foot: CODE(S): Z89.439 - Acquired absence of unspecified foot QUALIFIERS: Laterality: right Qualified Code(s): Z89.431 - Acquired absence of right foot (7) Charcot's joint, right ankle and foot: CODE(S): M14.671 - Charcot's joint, right ankle and foot (8) Bilateral lower extremity edema: CODE(S): R60.0 - Localized edema PLAN: Patient seen and examined with knee scooter. Wound noted to have improved with less maceration and resolution of odor. We will discontinue the wound vac at this time and just continue with graft therappy. Wound continues to probe to bone. Patient was unable to get dakins and has been doing betadine wet to dry instead. I reviewed and discussed his case. It is noted that he is s/p debridement right foot on 01/15/[address] Otoole including bone. He was positive for osteomyelitis. He has since been treated with a wound VAC and offloading. Patient to remain nonweightbearing to the right lower extremity. Use wheelchair or knee walker. Patient is noted to also have gotten an electric scooter in order to offload his foot Reviewed culture results 01/15/2021. Wound cultures demonstrate group B streptococcus, MRSA, and corynebacterium from the foot wound. There is also noted to be strep agalactiae noted in his blood culture. OR cultures of the cuboid bone was positive for beta Streptococcus and corynebacterium. MRI was reviewed showing both Charcot changes and concern for osteomyelitis of the plantar cuboid area with ulcerations. Patient is noted to be taking doxycycline and Augmentin per infectious disease, Dr. Soto. Cultures are coming and 02/11/2021 demonstrated Streptococcus agalactiae, Propionibacterium acnes, anaerobic cocci. Patient relates that he finished his antibiotics a couple days ago and has a prescription that he has yet to filled. Encourage patient to fill prescription in order to complete complete antibiotic treatment course per infectious disease He is at risk for further amputation of foot or leg. He has a [place] walker ready at [employer] once healed. If he feels he can get his foot in there with a minimal dressing he can begin wearing this for offloading. I recommend Glen for nutritional supplementation to optimize healing. All questions answered Patient was approved for TheraSkin wound graft applications. I recommend application of advanced wound healing product to the indicated ulceration. Prior authorization was confirmed. The indications, benefits, anticipated application and healing time management were reviewed in detail. Verbal consent was obtained in the procedure for today. Site was debrided and g raft was applied according to standard protocol and was further secured with a nonadherent dressing and Steri-Strips. Patient instructed that they can change outer dressing but not to go beneath the Steri-Strips. To follow-up in 2 weeks Note: [employer] speech recognition book critic software was used to create portions of this document. Sound-alike and misspelled words, as well as other book critic errors may be contained in the documentation.
== END 2021-03-11 23:59 ==
LOC: WC 10:00
PROVIDERS: PCP Internal Medicine; Visit Provider Podiatrist Foot & Ankle Surgery
DX: E11.621 Type 2 diabetes mellitus with foot ulcer (principal); L97.512 Non-pressure chronic ulcer of other part of right foot with fat layer exposed; L97.414 Non-pressure chronic ulcer of right heel and midfoot with necrosis of bone; M86.171 Other acute osteomyelitis, right ankle and foot; E11.42 Type 2 diabetes mellitus with diabetic polyneuropathy; E66.01 Morbid (severe) obesity due to excess calories; Z68.41 Body mass index [BMI] 40.0-44.9, adult; Z79.4 Long term (current) use of insulin; Z98.890 Other specified postprocedural states
CPT/HCPCS: 11042; 11043; 15275; 87070; 87075; 87077; 87186; 87205; 87640; 97605; Q4121

== ENCOUNTER 2021-04-08 09:45 | Outpatient (RCR) | payer MEDICAID, SELFPAY ==
[2021-03-12 00:40] VITALS: BP 149/76; PULSE 87; RESP 18; TEMP 36; BMI 47.7
--- NOTE | 2021-04-01 08:33 | PN.PCM_ITS ---
History of Present Illness Date of Service: 04/01/21 Chief Complaint: Right foot plantar lateral ulceration status post fourth and fifth ray partial amputation-healed History of Wound: Patient is a 50-year-old male who presents to the wound care center for follow-up of hospital visit after surgical debridement with Dr. Otoole on 01-15-21 including bone. He was using a wound VAC. Patient was discharged from the hospital on doxycycline and Augmentin per infectious disease. Patient has been approved for theraskin grafts for helaing. Patient has obtained a knee scooter as well as an electric scooter to be able to offload his ulceration site Progress of Wound: Stable Subjective Subjective Patient seen and examined resting comfortably. Patient denies any new pedal complaints. Patient denies any nausea, fever, chills, chest pain, shortness of breath, cough, streaking, purulence, vomiting. Objective Data Objective Data Vital Signs: Vital Signs Temp Pulse Resp BP 96.8 F L 87 18 149/76 H 03/12/21 00:40 03/12/21 00:40 03/12/21 00:40 03/12/21 00:40 Body Mass Index (BMI) 47.7 Physical Exam Narrative Const alert and oriented x3 General Appearance: cooperative HEENT normocephalic Extremity Extremity Narrative: No calf tenderness Diminished pulses Compartments remain soft to palpate right lower extremity General Extremity: edema and no tenderness to palpation of joints or extremities; Negative for cyanosis Skin Skin Narrative: Ulceration noted to plantar right foot with plantar foot wound probing to bone and lateral foot remains healed no purulence, no streaking, no erythema. Periwound maceration has improved to plantar foot. There is devitalized subcutaneous and plantar probes to bone. No bogginess or fluctuance. No signs of infection. Decreased serous drainage noted from plantar foot. There is no malodor noted today General Skin Exam: Negative for erythema MSK Muscle wasting noted Charcot foot with rocker-bottom deformity and fourth and fifth ray resection right Neuro Neuro Narrative: lack of normal epicritic sensation via light touch is consiste nt with neuropathy status Psych cooperative and affect normal Debridement Note Debridement Note Wound debrided: Plantar foot Laterality: Right Wound Grade/Stage: Sams 3 Type of Debridement: Excisional debridement Anesthesia Used: 4% Lidocaine Solution Depth: in the subcutaneous layer Percentage of wound debrided: 100 Instrument Used: 3mm curette Tissue Removed: includes fibrous, devitalized, biofilm, callus and slough tissue Severity: Fat Layer Exposed Amount of bleeding with debridement: Mild Bleeding Controlled with: Pressure Patient tolerated procedure: Patient tolerated procedure well Assessment/Plan Assessment/Plan (1) Non-pressure chronic ulcer of other part of right foot with fat layer exposed: CODE(S): L97.512 - Non-pressure chronic ulcer of other part of right foot with fat layer exposed (2) Charcot's joint, right ankle and foot: CODE(S): M14.671 - Charcot's joint, right ankle and foot (3) Type 2 diabetes mellitus with diabetic polyneuropathy: CODE(S): E11.42 - Type 2 diabetes mellitus with diabetic polyneuropathy QUALIFIERS: Diabetes mellitus joint terminal attack controller insulin use: unspecified joint terminal attack controller insulin use status Qualified Code(s): E11.42 - Type 2 diabetes mellitus with diabetic polyneuropathy (4) Osteomyelitis: CODE(S): M86.9 - Osteomyelitis, unspecified QUALIFIERS: Osteomyelitis type: other acute Osteomyelitis location: foot Laterality: right Qualified Code(s): M86.171 - Other acute osteomyelitis, right ankle and foot (5) Tobacco abuse: CODE(S): Z72.0 - Tobacco use (6) Venous insufficiency: CODE(S): I87.2 - Venous insufficiency (chronic) (peripheral) (7) Obese: CODE(S): E66.9 - Obesity, unspecified QUALIFIERS: Obesity type: due to excess calories Obesity classification: adult class 3 (BMI >= 40) Serious obesity comorbidity presence: with serious comorbidity Body mass index: BMI 40.0-44.9 Qualified Code(s): E66.01 - Morbid (severe) obesity due to excess calories; Z68.41 - Body mass index [BMI]40.0-44.9, adult (8) History of amputation of foot: CODE(S): Z89.439 - Acquired absence of unspecified foot QUALIFIERS: Laterality: right Qualified Code(s): Z89.431 - Acquired absence of right foot (9) Bilateral lower extremity edema: CODE(S): R60.0 - Localized edema PLAN: Patient seen and examined with knee scooter. Wound noted to have improved with less maceration and resolution of odor. We will discontinue the wound vac at this time and just continue with graft therapy. Wound continues to probe to bone. Patient was unable to get dakins and has been doing betadine wet to dry instead. I reviewed and discussed his case. It is noted that he is s/p debridement right foot on 01/15/[address] Otoole including bone. He was positive for osteomyelitis. He has since been treated with a wound VAC and offloading. Patient to remain nonweightbearing to the right lower extremity. Use wheelchair or knee walker. Patient is noted to also have gotten an electric scooter in order to offload his foot Reviewed culture results 01/15/2021. Wound cultures demonstrate group B streptococcus, MRSA, and corynebacterium from the foot wound. There is also noted to be strep agalactiae noted in his blood culture. OR cultures of the cuboid bone was positive for beta Streptococcus and corynebacterium. MRI was reviewed showing both Charcot changes and concern for osteomyelitis of the plantar cuboid area with ulcerations. Patient is noted to be taking doxycycline and Augmentin per infectious disease, Dr. Soto. Cultures are coming and 02/11/2021 demonstrated Streptococcus agalactiae, Propionibacterium acnes, anaerobic cocci. Patient relates that he finished his antibiotics a couple days ago and has a prescription that he has yet to filled. Encourage patient to fill prescription in order to complete complete antibiotic treatment course per infectious disease He is at risk for further amputation of foot or leg. He has a [place] walker ready at [employer] once healed. If he feels he can get his foot in there with a minimal dressing he can begin wearing this for offloading. I recommend Glen for nutritional supplementation to optimize healing. All questions answered Patient was approved for TherFinderlyin wound graft applications. I recommend application of advanced wound healing product to the indicated [facility] eration. Prior authorization was confirmed. The indications, benefits, anticipated application and healing time management were reviewed in detail. Verbal consent was obtained in the procedure for today. Site was debrided and graft was applied according to standard protocol and was further secured with a nonadherent dressing and Steri-Strips. Patient instructed that they can change outer dressing but not to go beneath the Steri-Strips. To follow-up in 2 weeks Note: [employer] speech recognition regulatory law specialist software was used to create portions of this document. Sound-alike and misspelled words, as well as other regulatory law specialist errors may be contained in the documentation.
--- NOTE | 2021-04-08 09:10 | PCM.WC.PN ---
History of Present Illness Date of Service: 04/08/21 Chief Complaint: Right foot plantar lateral ulceration status post fourth and fifth ray partial amputation-healed History of Wound: Patient is a 50-year-old male who presents to the wound care center for follow-up of hospital visit after surgical debridement with Dr. Otoole on 01-15-21 including bone. He was using a wound VAC. Patient was discharged from the hospital on doxycycline and Augmentin per infectious disease. Patient has been approved for theraskin grafts for healing. Patient has obtained a knee scooter as well as an electric scooter to be able to offload his ulceration site Patient has missed last several appointments. He has not given excuse for this. Progress of Wound: Worsening with new wound to lateral foot Subjective Subjective Patient seen and examined resting comfortably. Patient denies any new pedal complaints. Patient denies any nausea, fever, chills, chest pain, shortness of breath, cough, streaking, purulence, vomiting. Patient failed to give excuses as to why he had missed last several appointments. Objective Data Objective Data Vital Signs: Vital Signs Temp Pulse Resp BP 96.8 F L 87 18 149/76 H 03/12/21 00:40 03/12/21 00:40 03/12/21 00:40 03/12/21 00:40 Body Mass Index (BMI) 47.7 Physical Exam Narrative Const alert and oriented x3 General Appearance: cooperative HEENT normocephalic Extremity Extremity Narrative: No calf tenderness Diminished pulses Compartments remain soft to palpate right lower extremity General Extremity: edema especially to right lower extremity. No tenderness to palpation of joints or extremities; Negative for cyanosis Skin Skin Narrative: Ulceration noted to plantar and lateral right foot with plantar foot wound probing to bone and lateral foot has reopened significantly There is significant skin and callus buildup secondary to poor hygiene and lack of proper cleaning. A lot of this skin was removed there is underlying wounds noted to the lateral foot. Lateral right foot ulceration has no purulence, no streaking, no erythema. Plantar right foot ulceration has significant periwound maceration. There are some periwound erythema noted as well. There is devitalized subcutaneous and plantar probes to bone. There is a significant bone chip that was patient is way out of the wound that was easily removed. Wound probes to bone and probes multiple centimeters. No bogginess or fluctuance. Serosanguineous drainage noted from plantar foot. There is no malodor noted today General Skin Exam: Negative for erythema MSK Muscle wasting noted Charcot foot with rocker-bottom deformity and fourth and fifth ray resection right. Partial second toe amputation. Neuro Neuro Narrative: lack of normal epicritic sensation via light touch is consistent with neuropathy status Psych cooperative and affect normal Debridement Note Debridement Note Wound debrided: lateral foot Laterality: Right Wound Grade/Stage: Sams 1 Type of Debridement: Excisional debridement Anesthesia Used: 4% Lidocaine Solution Depth: in the subcutaneous layer Percentage of wound debrided: 100 Instrument Used: 3mm curette Tissue Removed: includes fibrous, devitalized, biofilm, callus and slough tissue Severity: Fat Layer Exposed Amount of bleeding with debridement: Mild Bleeding Controlled with: Pressure Patient tolerated procedure: Patient tolerated procedure well Post-Debridement Measurements and Additional Note: Wound Measurements and Assessment WC - Nurse 1 - General Ulcer Measurement Start: 04/08/21 09:20 Freq: Status: Active Protocol: Activity Type Activity Date Activity User E-Sign Co-Sign Detail Recorded Client Recorded Date Recorded By Document 04/08/21 09:20 DL [id number] 04/08/21 09:29 DL 04/08/21 09:20 Wound Center Nurse 1 [Ulcer Assessment] #4 R PLANTAR POST OP -Current Size (cm) - Length 0.5 -Current Size (cm) - Width 1.3 -Current Size (cm) - Depth 0.4 -Total Square Cm 0.65 -Photo Taken No -Undermining/Tunneling Starts (O' 11 clock) -Undermining/Tunneling Ends (O'clock) 1 -Maximum Distance (cm) 0.6 -Exudate Amt Medium -Exudate Type Serosanguineous -Wound Margin Thickened -Granulation Amt Large (67-100%) -Granulation Quality Pale,[place] -Necrosis Amt Small (1-33%) -Necrotic Tissue Type Adherent Slough -Structure Exposed N/A -Texture (Michelle-wound Skin Appearance) Callus,Scarring -Moisture (Michelle-wound Skin Appearance Maceration ) -Color (Michelle-wound Skin Appearance) Hemosiderin Staining -Temperature (Michelle-wound Skin No Abnormality Appearance) (Pt Warm) -Tenderness on Palpation (Michelle-wound No Skin Appearance) -Ulcer Cleansing Wound Cleanser -Anesthetic Used 4% Lidocaine Solution, Cetacaine [Edema Assessment] -Right Calf (cm) 52.2 -Right Ankle (cm) 32.5 WC - Nurse 2 - General Ulcer CM Notes Start: 04/08/21 09:20 Freq: Status: Active Protocol: Activity Type Activity Date Activity User E-Sign Co-Sign Detail Recorded Client Recorded Date Recorded By Document 04/08/21 10:04 JERSON [id number] 04/08/21 10:15 JERSON 04/08/21 10:04 Wound Center Nurse 2 [Procedure/Treatment] 6-right lateral foot -Time 10:14 -Correct Patient Yes -Correct Side, Site, Position Yes -Correct Procedure Yes -Procedure Performed Yes -Type of Procedure Debridement -Clinical Debridement Subcutaneous -Tissue Removed Subcutaneous -Post Debridement (cm) - Length 5.4 -Post Debridement (cm) - Width 1.6 -Post Debridement (cm) - Depth 0.2 -Total Square (Post) (cm) 8.64 -Area of Debridement (cm) - Length 5.4 -Area of Debridement (cm) - Width 1.6 -Total Square (Area) (cm) 8.64 -Tunneling No -Undermining/Tunneling No -Circular Undermining No -Wound/Ulcer Outcome Not Healed -Ulcer Cleansing Rinsed/ Irrigated with Saline -Foul Odor after Cleansing No -Bioengineered Tissue No -Bleeding Controlled with Pressure -Offloading Yes -Type of Offloading Knee Walker -Treatment Response Procedure Tolerated Well -Debridement - Open, 1st 20sq cm No -Debridement - Subq, 1st 20sq cm Yes #4 R PLANTAR POST OP -Time 10:05 -Correct Patient Yes -Correct Side, Site, Position Yes -Correct Procedure Yes -Procedure Performed Yes -Type of Procedure Debridement -Clinical Debridement Bone -Tissue Removed Fascia -Post Debridement (cm) - Length 1.1 -Post Debridement (cm) - Width 1.5 -Post Debridement (cm) - Depth 2.8 -Total Square (Post) (cm) 1.65 -Area of Debridement (cm) - Length 1.1 -Area of Debridement (cm) - Width 1.5 -Total Square (Area) (cm) 1.65 -Tunneling No -Undermining/Tunneling No -Circular Undermining No -Wound/Ulcer Outcome Not Healed -Ulcer Cleansing Rinsed/ Irrigated with Saline -Foul Odor after Cleansing No -Bioengineered Tissue No -Bleeding Controlled with Pressure -Type of Offloading Surgical Shoe -Treatment Response Procedure Tolerated Well -Debridement - Subq, 1st 20sq cm No -Debridement - Bone, 1st 20sq cm Yes [See Physician Procedure note for Specifics] Pain Scale: 0-10 Numeric [Pain] -Is Patient Pain Free? Yes - Nurse 3 - General Ulcer D/C NN Start: 04/08/21 09:20 Freq: Status: Active Protocol: Activity Type Activity Date Activity User E-Sign Co-Sign Detail Recorded Client Recorded Date Recorded By Document 04/08/21 10:24 [facility] [id number] 04/08/21 10:25 [facility] 04/08/21 10:24 Wound Care Nurse 3 [Wound Dressing] 6-right lateral foot -Ulcer Cleansing Soap and Water -Foul Odor after Cleansing No -Primary Dressing Applied Promogran Kesha Matter -Other Dressing drsg per mw rn -Primary Dressing Covered/Secured Dry Gauze & with Roll Gauze, Secured with Tape,Other -Other Covering abd -Promogran Kesha Matter 1 #4 R PLANTAR POST OP -Ulcer Cleansing Soap and Water -Foul Odor after Cleansing No -Primary Dressing Applied Nugauze, Iodoform -Other Dressing drsg per mw rn -Primary Dressing Covered/Secured Dry Gauze & with Roll Gauze, Secured with Tape,Other -Other Covering abd -Nugauze, Iodoform 1/4 1 [Compression Applied] -Compression Wrap Jens Wrap [Post Procedure Tolerated] -Treatment Response Procedure Tolerated Well Pain Scale: 0-10 Numeric [Pain] -Is Patient Pain Free? Yes - Visit Discharge [Visit Discharge Information] -Discharge Condition Stable -Ambulatory Status Ambulatory, Walker -Notes: knee walker [Facility Notification] -Facility Type Home Health Additional Wound Wound debrided: Plantar foot Laterality: Right Wound Grade/Stage: Sams 3 Type of Debridement: Excisional debridement Anesthesia Used: 4% Lidocaine Solution Depth: to bone Percentage of wound debrided: 100 Instrument Used: 3mm curette and - (Joe) Tissue Removed: Includes fibrous, devitalized, biofilm, callus and slough tissue Severity: Necrosis of Bone Amount of bleeding with debridement: Moderate Bleeding Controlled with: Pressure Patient tolerated procedure: Patient tolerated procedure well Assessment/Plan Assessment/Plan (1) Non-pressure chronic ulcer of other part of right foot with fat layer exposed: CODE(S): L97.512 - Non-pressure chronic ulcer of other part of right foot with fat layer exposed (2) Charcot's joint, right ankle and foot: CODE(S): M14.671 - Charcot's joint, right ankle and foot (3) Type 2 diabetes mellitus with diabetic polyneuropathy: CODE(S): E11.42 - Type 2 diabetes mellitus with diabetic polyneuropathy QUALIFIERS: Diabetes mellitus long wall mining machine helper insulin use: unspecified long wall mining machine helper insulin use status Qualified Code(s): E11.42 - Type 2 diabetes mellitus with diabetic polyneuropathy (4) Osteomyelitis: CODE(S): M86.9 - Osteomyelitis, unspecified QUALIFIERS: Laterality: right Osteomyelitis location: foot Osteomyelitis type: other acute Qualified Code(s): M86.171 - Other acute osteomyelitis, right ankle and foot (5) Tobacco abuse: CODE(S): Z72.0 - Tobacco use (6) Venous insufficiency: CODE(S): I87.2 - Venous insufficiency (chronic) (peripheral) (7) Obese: CODE(S): E66.9 - Obesity, unspecified QUALIFIERS: Body mass index: BMI 40.0-44.9 Obesity classification: adult class 3 (BMI >= 40) Obesity type: due to excess calories Serious obesity comorbidity presence: with serious comorbidity Qualified Code(s): E66.01 - Morbid (severe) obesity due to excess calories; Z68.41 - Body mass index [BMI]40.0-44.9, adult (8) History of amputation of foot: CODE(S): Z89.439 - Acquired absence of unspecified foot QUALIFIERS: Laterality: right Qualified Code(s): Z89.431 - Acquired absence of right foot (9) Bilateral lower extremity edema: CODE(S): R60.0 - Localized edema (10) Chronic ulcer of right foot with necrosis of bone: CODE(S): L97.514 - Non-pressure chronic ulcer of other part of right foot with necrosis of bone (11) Cellulitis of right foot: CODE(S): L03.115 - Cellulitis of right lower limb PLAN: Patient seen and examined with knee scooter. Patient noted to have missed last several appointments. Discussed with patient the importance of regular appointments in order to keep progress moving with ulceration. Patient is noted to have new ulceration opening up to his lateral foot at previous amputation site. This is extensive. Patient is also noted to have significant skin buildup due to poor hygiene. Discussed patient need for regular cleaning of his foot even if he has been soaking it he should still be scrubbing his foot. Today while the skin was removed and the foot was scrubbed well with the previous hygiene. Discussed that this buildup of callus he did tissue is probably why the lateral foot ulceration reopened. It is also noted that upon examination of the plantar foot wound that prominent bone was encountered. This was removed with a rongeur easily and was sent to lab for specimen. Patient was started on Augmentin which was sent to his pharmacy of choice. Patient also has significant maceration especially to plantar wound. This is also probing rather deep. There is concern for reactivation of his Charcot and osteomyelitis. Patient is noted to have finished his course of antibiotics per infectious disease. Patient was restarted on antibiotics and was sent told to follow-up with Dr. Soto infectious disease. Patient to remain nonweightbearing to his right foot. Prescription was also given for new foot x-ray. Patient to remain nonweightbearing to the right lower extremity. Use wheelchair or knee walker. Patient is noted to also have gotten an electric scooter in order to offload his foot Reviewed culture results 01/15/2021. Wound cultures demonstrate group B streptococcus, MRSA, and corynebacterium from the foot wound. There is also noted to be strep agalactiae noted in his blood culture. OR cultures of the cuboid bone was positive for beta Streptococcus and corynebacterium. MRI was reviewed showing both Charcot changes and concern for osteomyelitis of the plantar cuboid area with ulcerations. Patient is noted to be taking doxycycline and Augmentin per infectious disease, Dr. Soto. Cultures are coming and 02/11/2021 demonstrated Streptococcus agalactiae, Propionibacterium acnes, anaerobic cocci. He is at risk for further amputation of foot or leg. He has a [place] walker ready at [facility] once healed. If he feels he can get his foot in there with a minimal dressing he can begin wearing this for offloading. After verbal consent was obtained sharp excisional debridement was carried out to patient tolerance due to neuropathy. To start Betadine wet-to-dry quarter inch packing dressing changes to plantar wound and Kesha dressing changes to the lateral foot wound after foot is washed with soap and water. This to be changed every other day. This to be covered with dry sterile dressing. I recommend Glen for nutritional supplementation to optimize healing. All questions answered Patient was approved for TheraSkin wound graft applications. I recommend application of advanced wound healing product to the indicated ulceration. Prior authorization was confirmed. The indications, benefits, anticipated application and healing time management were reviewed in detail. Verbal consent was obtained in the procedure for today. Site was debrided and graft was applied according to standard protocol and was further secured with a nonadherent dressing and Steri-Strips. Patient instructed that they can change outer dressing but not to go beneath the Steri-Strips. To follow-up in 2 weeks Note: [employer] speech recognition branch office manager software was used to create portions of this document. Sound-alike and misspelled words, as well as other branch office manager errors may be contained in the documentation. The problems addressed require a low medical decision making level which includes two or more minor problems, a stable chronic illness, or an acute uncomplicated illness or injury.
[2021-04-08 09:20] VITALS: BP 150/66; PULSE 100; RESP 20; TEMP 36.4; BMI 47.7
== END 2021-04-10 23:59 ==
LOC: WC 09:45
PROVIDERS: PCP Internal Medicine; Visit Provider Podiatrist Foot & Ankle Surgery
DX: E11.621 Type 2 diabetes mellitus with foot ulcer (principal); L97.512 Non-pressure chronic ulcer of other part of right foot with fat layer exposed; M14.671 Charcot's joint, right ankle and foot; L97.514 Non-pressure chronic ulcer of other part of right foot with necrosis of bone; E66.01 Morbid (severe) obesity due to excess calories; E11.42 Type 2 diabetes mellitus with diabetic polyneuropathy; M86.171 Other acute osteomyelitis, right ankle and foot; I87.2 Venous insufficiency (chronic) (peripheral); Z68.41 Body mass index [BMI] 40.0-44.9, adult; Z89.431 Acquired absence of right foot; R60.0 Localized edema; L03.115 Cellulitis of right lower limb; E11.69 Type 2 diabetes mellitus with other specified complication; Z79.4 Long term (current) use of insulin
CPT/HCPCS: 11042; 11044; 87070; 87075; 87077; 87186; 87205

== ENCOUNTER → 2021-04-15 17:26 | Outpatient (CLI) | payer MEDICAID, SELFPAY | PROVIDERS: PCP Internal Medicine; Visit Provider Podiatrist Foot & Ankle Surgery | DX: L97.519 Non-pressure chronic ulcer of other part of right foot with unspecified severity (principal); A52.16 Charcot's arthropathy (tabetic); M86.9 Osteomyelitis, unspecified ==

== ENCOUNTER → 2021-04-25 08:01 | Outpatient (CLI) | payer MEDICAID, SELFPAY ==
[2021-04-25 09:26] LABS: Anion Gap 4 (5-15); BUN 15 mg/dL (7-18); Chloride 103 mmol/L (98-107); Creatinine, Serum 1.07 mg/dL (0.70-1.30); EST Glomerular Filtration Rate 78 mL/min (>60); Est Glom Filt Rate - Afr Amer 94 mL/min (>60); Glucose 200 mg/dL (74-106); Sodium Level 134 mmol/L (136-145)
== END ==
PROVIDERS: PCP Internal Medicine; Referring Provider Internal Medicine Infectious Disease; Visit Provider Internal Medicine Infectious Disease
DX: M86.071 Acute hematogenous osteomyelitis, right ankle and foot (principal)
CPT/HCPCS: 36415; 80048

== ENCOUNTER 2021-05-06 09:00 | Outpatient (RCR) | payer MEDICAID, SELFPAY ==
[2021-04-11 00:31] VITALS: BP 150/66; PULSE 100; RESP 20; TEMP 36.4; BMI 47.7
[2021-04-16 13:21] VITALS: BP 141/93; PULSE 107; RESP 16; TEMP 36.6; BMI 47.7
--- NOTE | 2021-04-16 14:10 | PCM.WC.PN ---
History of Present Illness Date of Service: 04/16/21 Chief Complaint: Right foot plantar and lateral ulcers History of Wound: Patient is a 50-year-old male who presents to the wound care center for follow-up complicated right foot ulcers with history of Charcot and osteomyelitis. It is noted that he had a prior surgical debridement with Dr. Otoole on 01-15-21 including bone. Also had bone debrided in clinic last week which was sent for microbiology assessment. He has recently been changing the dressing with Betadine and Kesha. He is not able to get Dakin's solution as recommended. He has been on oral Augmentin the past week. He has been trying to keep weight off of this however it is very difficult. He does have a knee roller. Progress of Wound: Stable and likely improved compared to chart review Objective Data Objective Data Vital Signs: Vital Signs Temp Pulse Resp BP 97.9 F 107 H 16 141/93 H 04/16/21 13:21 04/16/21 13:21 04/16/21 13:21 04/16/21 13:21 Body Mass Index (BMI) 47.7 Physical Exam Narrative Const alert and oriented x3 General Appearance: cooperative HEENT normocephalic Extremity Extremity Narrative: No calf tenderness Diminished pulses Compartments remain soft to palpate right lower extremity General Extremity: edema especially to right lower extremity. No tenderness to palpation of joints or extremities; Negative for cyanosis Skin Skin Narrative: Ulceration noted to plantar and lateral right foot with plantar foot wound probing to bone and deep tissue from both sites There is significant skin and callus buildup secondary to poor hygiene and lack of proper cleaning. Lateral right foot ulceration has no purulence, no streaking, no erythema. Plantar right foot ulceration has mild periwound maceration. no adjacent erythema or streaking. no odor. No bogginess or fluctuance. Serosanguineous drainage noted from plantar foot. There is no malodor noted today General Skin Exam: Negative for erythema MSK Muscle wasting noted Charcot foot with rocker-bottom deformity and fourth and fifth ray resection right. Partial second toe amputation. Neuro Neuro Narrative: lack of normal epicritic sensation via light touch is consistent with neuropathy status Psych cooperative and affect normal Debridement Note Debridement Note Wound debrided: plantar and latearl left foot Wound Grade/Stage: 3 Type of Debridement: Excisional debridement Anesthesia Used: 4% Lidocaine Solution Depth: in the subcutaneous layer Percentage of wound debrided: 100 Instrument Used: #15 blade Tissue Removed: fibrous, devitalized subcutaneous, biofilm, slough Severity: Fat Layer Exposed Amount of bleeding with debridement: Mild Bleeding Controlled with: Pressure Patient tolerated procedure: Patient tolerated procedure well Post-Debridement Measurements and Additional Note: Post-Debridement Measurements/Treatment WC - Nurse 1 - General Ulcer Assessment Start: 04/16/21 13:21 Freq: Status: Active Protocol: NIGEL Activity Type Activity Date Activity User E-Sign Co-Sign Detail Recorded Client Recorded Date Recorded By Document 04/16/21 13:21 ML [id number] 04/16/21 13:26 ML 04/16/21 13:21 WC - Today's Visit Information Type of service Follow-up Visit (Physician/REFUGE MANAGER ) Arrival Mode Other Arrival Mode (Other) knee scooter Transfer Assistance None Patient Identification Verified (Name & Yes ) Patient Requires Transmission-Based No Precautions Safety Precautions NA Finger Stick Blood Sugar(mg/dl) (if 130 indicated): Blood Sugar Stated by Patient Height and Weight Body Mass Index (BMI) 47.7 BMI Classification Obese Vital Signs Temperature (97.8 F-99.1 F) 97.9 F Temperature Source Temporal Pulse Rate (60-100) 107 H Pulse Location Monitor Respiratory Rate (12-18) 16 Blood Pressure (90/60-120/80) 141/93 H Blood Pressure Mean (mm Hg) 109 Source Monitor Position Sitting Blood Pressure Location Left Arm History Since Last Visit- (Skip if this is Patient's initial visit) Have you changed medications since your No last visit? Any new allergies or adverse reactions No Had a fall/change in ADL's that may No increase risk of falls Signs or symptoms of abuse and/or No neglect since last visit Have you been in the hospital since your No last visit? Has dressing in place as prescribed Yes Has compression in place as prescribed N/A Has offloadiing in place as prescribed N/A Experienced any changes in pain level or No management Left Footwear No Footwear Right Footwear Regular Shoe Pain Scale: 0-10 Numeric Is Patient Pain Free? Yes SANDEEP - Nurse 1 - General Ulcer Measurement Start: 04/16/21 13:21 Freq: Status: Active Protocol: Activity Type Activity Date Activity User E-Sign Co-Sign Detail Recorded Client Recorded Date Recorded By Document 04/16/21 13:21 ML [id number] 04/16/21 13:26 ML 04/16/21 13:21 Wound Center Nurse 1 6-right lateral foot -Current Size (cm) - Length 2 -Current Size (cm) - Width 0.8 -Current Size (cm) - Depth 1.6 -Total Square Cm 1.6 -Exudate Amt Medium -Exudate Type Serosanguineous -Wound Margin Distinct, Outline Attached -Granulation Amt Medium (34-66%) -Slough/Fibrin Yes -Necrosis Amt Medium (34-66%) -Texture (Michelle-wound Skin Appearance) Assessed -Moisture (Michelle-wound Skin Appearance) Maceration -Color (Michelle-wound Skin Appearance) Assessed -Temperature (Michelle-wound Skin No Abnormality Appearance) (Pt Warm) -Tenderness on Palpation (Michelle-wound No Skin Appearance) -Ulcer Cleansing Soap and Water -Foul Odor after Cleansing No -Anesthetic Used 4% Lidocaine Solution #4 R PLANTAR POST OP -Current Size (cm) - Length 0.7 -Current Size (cm) - Width 1 -Current Size (cm) - Depth 2.8 -Total Square Cm 0.7 -Maximum Distance #2 (cm) 3.1 -Circular Undermining Yes -Exudate Amt Large -Exudate Type Serosanguineous -Wound Margin Distinct, Outline Attached -Granulation Amt Medium (34-66%) -Slough/Fibrin Yes -Necrosis Amt Medium (34-66%) -Texture (Michelle-wound Skin Appearance) Assessed -Moisture (Michelle-wound Skin Appearance) Maceration -Color (Michelle-wound Skin Appearance) Assessed -Temperature (Michelle-wound Skin No Abnormality Appearance) (Pt Warm) -Ulcer Cleansing Soap and Water -Foul Odor after Cleansing No -Anesthetic Used 4% Lidocaine Solution WC - Nurse 2 - General Ulcer CM Notes Start: 04/16/21 13:21 Freq: Status: Active Protocol: Activity Type Activity Date Activity User E-Sign Co-Sign Detail Recorded Client Recorded Date Recorded By Document 04/16/21 14:00 JERSON [id number] 04/16/21 14:04 JF 04/16/21 14:00 Wound Center Nurse 2 6-right lateral foot -Time 14:00 -Correct Patient Yes -Correct Side, Site, Position Yes -Correct Procedure Yes -Procedure Performed Yes -Type of Procedure Debridement -Clinical Debridement Subcutaneous -Tissue Removed Subcutaneous -Post Debridement (cm) - Length 2 -Post Debridement (cm) - Width 0.9 -Post Debridement (cm) - Depth 1.6 -Total Square (Post) (cm) 1.8 -Area of Debridement (cm) - Length 2 -Area of Debridement (cm) - Width 0.9 -Total Square (Area) (cm) 1.8 -Tunneling No -Undermining/Tunneling No -Circular Undermining No -Wound/Ulcer Outcome Not Healed -Ulcer Cleansing Rinsed/ Irrigated with Saline -Foul Odor after Cleansing No -Bioengineered Tissue No -Bleeding Controlled with Pressure -Offloading Yes -Type of Offloading Surgical Shoe -Treatment Response Procedure Tolerated Well -Debridement - Subq, 1st 20sq cm Yes #4 R PLANTAR POST OP -Time 14:01 -Correct Patient Yes -Correct Side, Site, Position Yes -Correct Procedure Yes -Procedure Performed Yes -Type of Procedure Debridement -Clinical Debridement Subcutaneous -Tissue Removed Subcutaneous -Post Debridement (cm) - Length 0.8 -Post Debridement (cm) - Width 1.1 -Post Debridement (cm) - Depth 2.8 -Total Square (Post) (cm) 0.88 -Area of Debridement (cm) - Length 0.8 -Area of Debridement (cm) - Width 1.1 -Total Square (Area) (cm) 0.88 -Tunneling No -Circular Undermining No -Wound/Ulcer Outcome Not Healed -Ulcer Cleansing Rinsed/ Irrigated with Saline -Foul Odor after Cleansing No -Bioengineered Tissue No -Bleeding Controlled with Pressure -Offloading Yes -Type of Offloading Surgical Shoe -Treatment Response Procedure Tolerated Well -Debridement - Subq, 1st 20sq cm No Pain Scale: 0-10 Numeric Is Patient Pain Free? Yes Assessment/Plan Assessment/Plan (1) Non-pressure chronic ulcer of other part of right foot with fat layer exposed: CODE(S): L97.512 - Non-pressure chronic ulcer of other part of right foot with fat layer exposed (2) Charcot's joint, right ankle and foot: CODE(S): M14.671 - Charcot's joint, right ankle and foot (3) Type 2 diabetes mellitus with diabetic polyneuropathy: CODE(S): E11.42 - Type 2 diabetes mellitus with diabetic polyneuropathy QUALIFIERS: Diabetes mellitus [facility] insulin use: unspecified [facility] insulin use status Qualified Code(s): E11.42 - Type 2 diabetes mellitus with diabetic polyneuropathy (4) Osteomyelitis: CODE(S): M86.9 - Osteomyelitis, unspecified QUALIFIERS: Osteomyelitis type: other acute Osteomyelitis location: foot Laterality: right Qualified Code(s): M86.171 - Other acute osteomyelitis, right ankle and foot (5) Tobacco abuse: CODE(S): Z72.0 - Tobacco use (6) Venous insufficiency: CODE(S): I87.2 - Venous insufficiency (chronic) (peripheral) (7) Obese: CODE(S): E66.9 - Obesity, unspecified QUALIFIERS: Obesity type: due to excess calories Obesity classification: adult class 3 (BMI >= 40) Serious obesity comorbidity presence: with serious comorbidity Body mass index: BMI 40.0-44.9 Qualified Code(s): E66.01 - Morbid (severe) obesity due to excess calories; Z68.41 - Body mass index [BMI]40.0-44.9, adult (8) History of amputation of foot: CODE(S): Z89.439 - Acquired absence of unspecified foot QUALIFIERS: Laterality: right Qualified Code(s): Z89.431 - Acquired absence of right foot (9) Bilateral lower extremity edema: CODE(S): R60.0 - Localized edema (10) Chronic ulcer of right foot with necrosis of bone: CODE(S): L97.514 - Non-pressure chronic ulcer of other part of right foot with necrosis of bone (11) Cellulitis of right foot: CODE(S): L03.115 - Cellulitis of right lower limb PLAN: Patient seen and examined. Debridement was performed as noted in the clinical panel. It is also noted that upon examination of the plantar foot wound that prominent bone was encountered during his last visit with Dr. Otoole consent this to microbiology. Growth so far demonstrate MSSA, strep, and anaerobes which seems to be responding well to Augmentin. He also saw infectious disease today who will extend the course of 6 weeks. His labs will be updated including ESR, CBC, CMP. An order for a foot x-ray was provided previously and he did not get this done yet. This will be reviewed upon completion. There is concern for reactivation of his Charcot and osteomyelitis. Discussed with Dr. Soto. Patient to remain nonweightbearing to the right lower extremity. Use wheelchair or knee walker. Patient is noted to also have gotten an electric scooter in order to offload his foot He is at risk for further amputation of foot or leg. He has a [place] walker ready at [facility] once healed. If he feels he can get his foot in there with a minimal dressing he can begin wearing this for offloading. To continue Betadine wet-to-dry quarter inch packing dressing changes to plantar wound and Kesha dressing changes to the lateral foot wound after foot is washed with soap and water. This to be changed every other day. This to be covered with dry sterile dressing. I recommend [place] for nutritional supplementation to optimize healing. All questions answered. To follow-up next week with Dr. Otoole. Note: [employer] speech recognition roof cement and paint maker software was used to create portions of this document. Sound-alike and misspelled words, as well as other roof cement and paint maker errors may be contained in the documentation. The medical decision making level is limited based on data including the review of prior external notes, review of a prior test, or ordering a test. The medical decision making level is low. There is noted risk of morbidity after considering this treatment plan and diagnostic data.
--- NOTE | 2021-04-16 14:22 | PCM.PN.ID ---
Physical Exam Narrative Feeling better, on augmentin, foot improved, no fever, no n/v/d. Const alert and no apparent distress General Appearance: cooperative Resp normal air movement and clear to auscultation bilaterally Cardio regular rate and regular rhythm GI normal to inspection, nondistended, normoactive bowel sounds Extremity General Extremity: edema Skin Skin Narrative: R foot dressing in place ID ID: Route of nutrition/ use of supplements: [] Nutritional Intake: [] IV Site: [] [place] Catheter: [] Assessment & Plan Assessment/Plan (1) Osteomyelitis: QUALIFIERS: Osteomyelitis type: other acute Osteomyelitis location: foot Laterality: right Qualified Code(s): M86.171 - Other acute osteomyelitis, right ankle and foot PLAN: R foot osteo - piece of bone removed last week. Cx with mssa, strep, anaerobes. Agree with augmentin, seems to be responding well. Will extend course for ful 6 weeks, checking cbc, bmp, and esr now. Return to clinic as needed, d/w Dr. John
--- NOTE | 2021-04-21 09:54 | RAD_ITS ---
HISTORY: RT PLANTAR FOOT ULCER. TECHNIQUE: XR Foot Min 3 Views. Number of images including paperwork: 3. COMPARISON: 01/22/2021. FINDINGS: OSSEOUS STRUCTURES: Increased lucency and cortical erosion of the cuboid, third metatarsal base, and fourth metatarsal stump. Chronic partial amputation of the second toe, as well as fourth and fifth transmetatarsal amputation. JOINT SPACES: Persistent subluxations, erosions, and fragmentations of the midfoot. SOFT TISSUES: Severe soft tissue swelling. RAD/Foot min 3 Views IMPRESSION: Neuropathic arthropathy with increased erosions in the midfoot concerning for superimposed osteomyelitis with severe soft tissue swelling of the right foot. at 0837 Reported and signed by: Nohemi Haney MD Electronically Signed: Nohemi Haney MD at 8:36 EDT Tel , Service support ,
[2021-04-22 08:59] VITALS: BP 156/88; PULSE 91; RESP 24; TEMP 36; BMI 47.7
--- NOTE | 2021-04-22 12:27 | PN.PCM_ITS ---
History of Present Illness Date of Service: 04/25/21 Chief Complaint: Right foot plantar and lateral ulcers History of Wound: Patient is a 50-year-old male who presents to the wound care center for follow-up complicated right foot ulcers with history of Charcot and osteomyelitis. It is noted that he had a prior surgical debridement with Dr. Otoole on 01-15-21 including bone. Also had bone debrided in clinic last week which was sent for microbiology assessment. He has recently been changing the d ressing with Betadine and Kesha. He has not able to get Dakin's solution as recommended. He has been on oral Augmentin recently. He has been trying to keep weight off of this however it is very difficult. He does have a knee roller. Progress of Wound: Some improvement Subjective Subjective Patient seen and examined resting comfortably. Patient denies any new pedal complaints. Patient denies any nausea, fever, chills, chest pain, shortness of breath, cough, streaking, purulence, vomiting. Objective Data Objective Data Vital Signs: Vital Signs Temp Pulse Resp BP 96.8 F L 91 24 H 156/88 H 04/22/21 08:59 04/22/21 08:59 04/22/21 08:59 04/22/21 08:59 Body Mass Index (BMI) 47.7 Radiography Diagnostic Testing: Radiology Impression Foot X-Ray 04/21/21 09:54 IMPRESSION: Neuropathic arthropathy with increased erosions in the midfoot concerning for superimposed osteomyelitis with severe soft tissue swelling of the right foot. at 0837 Reported and signed by: Nohemi Haney MD Electronically Signed: Nohemi Haney MD at 8:36 EDT Tel , Service support , Physical Exam Narrative Const alert and oriented x3 General Appearance: cooperative HEENT normocephalic Extremity Extremity Narrative: No calf tenderness Diminished pulses Compartments remain soft to palpate right lower extremity General Extremity: edema especially to right lower extremity. No tenderness to palpation of joints or extremities; Negative for cyanosis Skin Skin Narrative: Ulceration noted to plantar and lateral right foot with plantar foot wound probing to bone and deep tissue from both sites There is significant peeling skin noted to periwound and plantar foot Lateral right foot ulceration has no purulence, no streaking, no erythema. Plantar right foot ulceration has mild periwound maceration. no adjacent erythema or streaking. Probes to bone. no odor. No bogginess or fluctuance. Serosanguineous drainage noted from plantar foot. There is no malodor noted today Avulsed 3rd nail right nail with dried blood noted. No open wound General Skin Exam: Negative for erythema MSK Muscle wasting noted Charcot foot with rocker-bottom deformity and fourth and fifth ray resection right. Partial second toe amputation. Neuro Neuro Narrative: lack of normal epicritic sensation via light touch is consistent with neuropathy status Psych cooperative and affect normal Debridement Note Debridement Note Wound debrided: Lateral foot Laterality: Left Wound Grade/Stage: Sams 1 Type of Debridement: Excisional debridement Anesthesia Used: 4% Lidocaine Solution Depth: in the subcutaneous layer Percentage of wound debrided: 100 Instrument Used: 3mm curette Tissue Removed: includes fibrous, devitalized, biofilm, callus and slough tissue Severity: Fat Layer Exposed Amount of bleeding with debridement: Mild Bleeding Controlled with: Pressure Patient tolerated procedure: Patient tolerated procedure well Post-Debridement Measurements and Additional Note: Post-Debridement Measurements/Treatment WC - Nurse 1 - General Ulcer Assessment Start: 04/16/21 13:21 Freq: Status: Active Protocol: SANDEEP.LOWEXT Activity Type Activity Date Activity User E-Sign Co-Sign Detail Recorded Client Recorded Date Recorded By Document 04/16/21 13:21 ML [id number] 04/16/21 13:26 ML Document 04/22/21 08:59 DL [id number] 04/22/21 09:04 DL 04/16/21 04/22/21 13:21 08:59 - Today's Visit Information Type of service Follow-up Visit Follow-up Visit (Physician/STUDENT DEVELOPMENT ADVISOR (Physician/STUDENT DEVELOPMENT ADVISOR ) ) Arrival Mode Other Ambulatory Arrival Mode (Other) knee scooter Transfer Assistance None None Patient Identification Verified (Name & Yes Yes ) Patient Requires Transmission-Based No No Precautions Safety Precautions NA Finger Stick Blood Sugar(mg/dl) (if 130 123 indicated): Blood Sugar Stated by Stated by Patient Patient Height and Weight Body Mass Index (BMI) 47.7 47.7 BMI Classification Obese Obese Vital Signs Temperature (97.8 F-99.1 F) 97.9 F 96.8 F L Temperature Source Temporal Temporal Pulse Rate (60-100) 107 H 91 Pulse Location Monitor Monitor Respiratory Rate (12-18) 16 24 H Respiratory rate source Observation Blood Pressure (90/60-120/80) 141/93 H 156/88 H Blood Pressure Mean (mm Hg) 109 110 Source Monitor Monitor Position Sitting Blood Pressure Location Left Arm History Since Last Visit- (Skip if this is Patient's initial visit) Have you changed medications since your No No last visit? Any new allergies or adverse reactions No No Had a fall/change in ADL's that may No No increase risk of falls Signs or symptoms of abuse and/or No No neglect since last visit Have you been in the hospital since your No No last visit? Has dressing in place as prescribed Yes Yes Has compression in place as prescribed N/A Yes Has offloadiing in place as prescribed N/A Yes Experienced any changes in pain level or No No management Left Footwear No Footwear Right Footwear Regular Shoe Pain Scale: 0-10 Numeric Is Patient Pain Free? Yes Yes WC - Nurse 1 - General Ulcer Measurement Start: 04/16/21 13:21 Freq: Status: Active Protocol: Activity Type Activity Date Activity User E-Sign Co-Sign Detail Recorded Client Recorded Date Recorded By Document 04/16/21 13:21 ML [id number] 04/16/21 13:26 ML Document 04/22/21 08:59 DL [id number] 04/22/21 09:04 DL 04/16/21 04/22/21 13:21 08:59 Wound Center Nurse 1 6-right lateral foot -Current Size (cm) - Length 2 1.5 -Current Size (cm) - Width 0.8 0.7 -Current Size (cm) - Depth 1.6 0.1 -Total Square Cm 1.6 1.05 -Photo Taken No -Exudate Amt Medium Small -Exudate Type Serosanguineous Serosanguineous -Wound Margin Distinct, Distinct, Outline Outline Attached Attached -Granulation Amt Medium (34-66%) Medium (34-66%) -Granulation Quality [place] -Slough/Fibrin Yes -Necrosis Amt Medium (34-66%) Medium (34-66%) -Necrotic Tissue Type Adherent Slough -Structure Exposed N/A -Texture (Michelle-wound Skin Appearance) Assessed Scarring -Moisture (Michelle-wound Skin Appearance) Maceration Maceration -Color (Michelle-wound Skin Appearance) Assessed Hemosiderin Staining -Temperature (Michelle-wound Skin No Abnormality No Abnormality Appearance) (Pt Warm) (Pt Warm) -Tenderness on Palpation (Michelle-wound No No Skin Appearance) -Ulcer Cleansing Soap and Water Wound Cleanser -Foul Odor after Cleansing No No -Anesthetic Used 4% Lidocaine 4% Lidocaine Solution Solution #4 R PLANTAR POST OP -Current Size (cm) - Length 0.7 1 -Current Size (cm) - Width 1 1.2 -Current Size (cm) - Depth 2.8 0.5 -Total Square Cm 0.7 1.2 -Photo Taken No -Maximum Distance #2 (cm) 3.1 -Circular Undermining Yes -Exudate Amt Large Medium -Exudate Type Serosanguineous Serosanguineous -Wound Margin Distinct, Distinct, Outline Outline Attached Attached -Granulation Amt Medium (34-66%) Medium (34-66%) -Granulation Quality [place],Red -Slough/Fibrin Yes -Necrosis Amt Medium (34-66%) Medium (34-66%) -Necrotic Tissue Type Adherent Slough -Structure Exposed N/A -Texture (Michelle-wound Skin Appearance) Assessed Scarring -Moisture (Michelle-wound Skin Appearance) Maceration Maceration -Color (Michelle-wound Skin Appearance) Assessed Hemosiderin Staining -Temperature (Michelle-wound Skin No Abnormality No Abnormality Appearance) (Pt Warm) (Pt Warm) -Tenderness on Palpation (Michelle-wound No Skin Appearance) -Ulcer Cleansing Soap and Water Soap and Water -Foul Odor after Cleansing No No -Anesthetic Used 4% Lidocaine 4% Lidocaine Solution Solution WC - Nurse 2 - General Ulcer CM Notes Start: 04/16/21 13:21 Freq: Status: Active Protocol: Activity Type Activity Date Activity User E-Sign Co-Sign Detail Recorded Client Recorded Date Recorded By Document 04/16/21 14:00 JF [id number] 04/16/21 14:04 JF Document 04/22/21 09:20 JF [id number] 04/22/21 09:25 JF 04/16/21 04/22/21 14:00 09:20 Wound Center Nurse 2 6-right lateral foot -Time 14:00 09:20 -Correct Patient Yes Yes -Correct Side, Site, Position Yes Yes -Correct Procedure Yes Yes -Procedure Performed Yes Yes -Type of Procedure Debridement Debridement -Clinical Debridement Subcutaneous Subcutaneous -Tissue Removed Subcutaneous Subcutaneous -Post Debridement (cm) - Length 2 0.6 -Post Debridement (cm) - Width 0.9 1.4 -Post Debridement (cm) - Depth 1.6 0.2 -Total Square (Post) (cm) 1.8 0.84 -Area of Debridement (cm) - Length 2 0.6 -Area of Debridement (cm) - Width 0.9 1.4 -Total Square (Area) (cm) 1.8 0.84 -Tunneling No No -Undermining/Tunneling No No -Circular Undermining No No -Wound/Ulcer Outcome Not Healed Not Healed -Ulcer Cleansing Rinsed/ Rinsed/ Irrigated with Irrigated with Saline Saline -Foul Odor after Cleansing No No -Bioengineered Tissue No No -Bleeding Controlled with Pressure Pressure -Offloading Yes Yes -Type of Offloading Surgical Shoe Knee Walker -Treatment Response Procedure Procedure Tolerated Well Tolerated Well -Debridement - Subq, 1st 20sq cm Yes Yes #4 R PLANTAR POST OP -Time 14:01 09:20 -Correct Patient Yes Yes -Correct Side, Site, Position Yes Yes -Correct Procedure Yes Yes -Procedure Performed Yes Yes -Type of Procedure Debridement Incision & Drainage -Clinical Debridement Subcutaneous Muscle / Fascia -Tissue Removed Subcutaneous Muscle -Post Debridement (cm) - Length 0.8 0.7 -Post Debridement (cm) - Width 1.1 1.4 -Post Debridement (cm) - Depth 2.8 2.8 -Total Square (Post) (cm) 0.88 0.98 -Area of Debridement (cm) - Length 0.8 0.7 -Area of Debridement (cm) - Width 1.1 1.4 -Total Square (Area) (cm) 0.88 0.98 -Tunneling No No -Undermining/Tunneling No -Circular Undermining No No -Wound/Ulcer Outcome Not Healed Not Healed -Ulcer Cleansing Rinsed/ Wound Cleanser Irrigated with Saline -Foul Odor after Cleansing No No -Bioengineered Tissue No -Bleeding Controlled with Pressure Pressure -Offloading Yes Yes -Type of Offloading Surgical Shoe Knee Walker -Treatment Response Procedure Procedure Tolerated Well Tolerated Well -Debridement - Subq, 1st 20sq cm No No -Debridement - Muscle / Fascia, 1st Yes 20sq cm Pain Scale: 0-10 Numeric Is Patient Pain Free? Yes Yes - Nurse 3 - General Ulcer D/C NN Start: 04/16/21 13:21 Freq: Status: Active Protocol: Activity Type Activity Date Activity User E-Sign Co-Sign Detail Recorded Client Recorded Date Recorded By Document 04/16/21 14:16 DL [id number] 04/16/21 14:18 DL Document 04/22/21 09:38 DL [id number] 04/22/21 09:40 DL 04/16/21 04/22/21 14:16 09:38 Wound Care Nurse 3 6-right lateral foot -Ulcer Cleansing Rinsed/ Wound Cleanser Irrigated with Saline -Foul Odor after Cleansing No No -Primary Dressing Applied Promogran Promogran Kesha Matter Kesha Matter -Primary Dressing Covered/Secured with Dry Gauze & Dry Gauze & Roll Gauze, Roll Gauze, Secured with Secured with Tape Tape -Promogran Kesha Matter 1 1 #4 R PLANTAR POST OP -Ulcer Cleansing Rinsed/ Rinsed/ Irrigated with Irrigated with Saline Saline -Foul Odor after Cleansing No No -Other Dressing Iodine Packing betadine -Primary Dressing Covered/Secured with Dry Gauze & Dry Gauze & Roll Gauze, Roll Gauze, Secured with Secured with Tape Tape Treatment Response Procedure Procedure Tolerated Well Tolerated Well Pain Scale: 0-10 Numeric Is Patient Pain Free? Yes Yes - Visit Discharge Discharge Condition Stable Stable Ambulatory Status Ambulatory Ambulatory, Walker Transportation Private Auto Private Auto Facility Type Home Health Home Health Orders Sent Yes Yes Additional Wound Wound debrided: Plantar foot Laterality: Left Wound Grade/Stage: Sams 3 Type of Debridement: Excisional debridement Anesthesia Used: 4% Lidocaine Solution Depth: to bone (Debrided to muscle) Percentage of wound debrided: 100 Instrument Used: 3mm curette Tissue Removed: Includes fibrous, devitalized, biofilm, callus and slough tissue Severity: Necrosis of Bone Amount of bleeding with debridement: Moderate Bleeding Controlled with: Pressure Patient tolerated procedure: Patient tolerated procedure well Assessment/Plan Assessment/Plan (1) Chronic ulcer of right foot with necrosis of bone: CODE(S): L97.514 - Non-pressure chronic ulcer of other part of right foot with necrosis of bone (2) Non-pressure chronic ulcer of other part of right foot with fat layer exposed: CODE(S): L97.512 - Non-pressure chronic ulcer of other part of right foot with fat layer exposed (3) Type 2 diabetes mellitus with diabetic polyneuropathy: CODE(S): E11.42 - Type 2 diabetes mellitus with diabetic polyneuropathy QUALIFIERS: Diabetes mellitus long term care administrator insulin use: unspecified long term care administrator insulin use status Qualified Code(s): E11.42 - Type 2 diabetes mellitus with diabetic polyneuropathy (4) Osteomyelitis: CODE(S): M86.9 - Osteomyelitis, unspecified QUALIFIERS: Laterality: right Osteomyelitis location: foot Osteomyelitis type: other acute Qualified Code(s): M86.171 - Other acute osteomyelitis, right ankle and foot (5) Tobacco abuse: CODE(S): Z72.0 - Tobacco use (6) Venous insufficiency: CODE(S): I87.2 - Venous insufficiency (chronic) (peripheral) (7) Obese: CODE(S): E66.9 - Obesity, unspecified QUALIFIERS: Body mass index: BMI 40.0-44.9 Obesity classification: adult class 3 (BMI >= 40) Obesity type: due to excess calories Serious obesity comorbidity presence: with serious comorbidity Qualified Code(s): E66.01 - Morbid (severe) obesity due to excess calories; Z68.41 - Body mass index [BMI]40.0-44.9, adult (8) History of amputation of foot: CODE(S): Z89.439 - Acquired absence of unspecified foot QUALIFIERS: Laterality: right Qualified Code(s): Z89.431 - Acquired absence of right foot (9) Bilateral lower extremity edema: CODE(S): R60.0 - Localized edema (10) Cellulitis of right foot: CODE(S): L03.115 - Cellulitis of right lower limb (11) Charcot's joint, right ankle and foot: CODE(S): M14.671 - Charcot's joint, right ankle and foot PLAN: Patient seen and examined. Patient noted to have stubbed his toe yesterday and ripped off his 3rd toenail. There is some dried blood, but no open wound noted. Hygiene is improved from my last visit with him. Lateral wound is better Debridement was performed as noted in the clinical panel. Bone culture was positive for OM. Patient saw Dr Soto, infectious disease, who agreed with continued course of augmentin for 6 weeks. Culture 04/08/21 demonstrate MSSA, strep, and anaerobic cocci. Recent lab work was reviewed. XR taken 04/21/21 were reviewed which show midfoot changes concerning for osteomyelitis and charcot. When compared to XR on 01/22/21 there is more consolidation noted. There is concern for reactivation of his Charcot and osteomyelitis Patient to remain nonweightbearing to the right lower extremity. Use wheelchair or knee walker. Patient is noted to also have gotten an electric scooter in order to offload his foot He is at risk for further amputation of foot or leg. He has a IONE walker ready at [facility] once healed. If he feels he can get his foot in there with a minimal dressing he can begin wearing this for offloading. To continue Betadine wet-to-dry quarter inch packing dressing changes to plantar wound and Kesha dressing changes to the lateral foot wound after foot is washed with soap and water. This to be changed every other day. This to be covered with dry sterile dressing. I recommend Glen for nutritional supplementation to optimize healing. All questions answered. To follow-up next week Note: [employer] speech recognition cost estimating clerk software was used to create portions of this document. Sound-alike and misspelled words, as well as other cost estimating clerk errors may be contained in the documentation.
[2021-04-29 09:00] VITALS: BP 165/90; PULSE 94; RESP 18; TEMP 36.1; BMI 47.7
--- NOTE | 2021-04-29 10:58 | PCM.WC.PN ---
History of Present Illness Date of Service: 04/29/21 Chief Complaint: Right foot plantar and lateral ulcers History of Wound: Patient is a 50-year-old male who presents to the wound care center for follow-up complicated right foot ulcers with history of Charcot and osteomyelitis. It is noted that he had a prior surgical debridement with Dr. Otoole on 01-15-21 including bone. Also had bone debrided in clinic last week which was sent for microbiology assessment. He has recently been changing the dressing with Betadine and Kesha. He has not able to get Dakin's solution as recommended. He has been on oral Augmentin recently. He has been trying to keep weight off of this however it is very difficult. He does have a knee roller. Progress of Wound: Some improvement Subjective Subjective Patient seen and examined resting comfortably. Patient denies any new pedal complaints. Patient denies any nausea, fever, chills, chest pain, shortness of breath, cough, streaking, purulence, vomiting. Patient relates the home health care has not been out to his house since last week Objective Data Objective Data Vital Signs: Vital Signs Temp Pulse Resp BP 96.9 F L 94 18 165/90 H 04/29/21 09:00 04/29/21 09:00 04/29/21 09:00 04/29/21 09:00 Oxygen Delivery Method Room Air Body Mass Index (BMI) 47.7 Physical Exam Narrative Const alert and oriented x3 General Appearance: cooperative HEENT normocephalic Extremity Extremity Narrative: No calf tenderness Diminished pulses Compartments remain soft to palpate right lower extremity General Extremity: edema especially to right lower extremity. No tenderness to palpation of joints or extremities; Negative for cyanosis Skin Skin Narrative: Ulceration noted to plantar and lateral right foot with plantar foot wound probing to bone and deep tissue from both sites Lateral right foot ulceration has no purulence, no streaking, no erythema. Plantar right foot ulceration has mild periwound maceration. no adjacent erythema or streaking. No longer probes to bone and said this probes to muscle. no odor. No bogginess or fluctuance. Serosanguineous drainage noted from plantar foot. There is no malodor noted today Avulsed 3rd nail. Skin especially to forefoot is very dry and has significant tissue buildup consistent with poor hygiene. General Skin Exam: Negative for erythema MSK Muscle wasting noted Charcot foot with rocker-bottom deformity and fourth and fifth ray resection right. Partial second toe amputation. Neuro Neuro Narrative: lack of normal epicritic sensation via light touch is consistent with neuropathy status Psych cooperative and affect normal Debridement Note Debridement Note Wound debrided: Lateral foot Laterality: Right Wound Grade/Stage: Sams 1 Type of Debridement: Excisional debridement Anesthesia Used: 4% Lidocaine Solution Depth: in the subcutaneous layer Percentage of wound debrided: 100 Instrument Used: 3mm curette Tissue Removed: includes fibrous, devitalized, biofilm, callus and slough tissue Severity: Fat Layer Exposed Amount of bleeding with debridement: Mild Bleeding Controlled with: Pressure Patient tolerated procedure: Patient tolerated procedure well Post-Debridement Measurements and Additional Note: Post-Debridement Measurements/Treatment - Nurse 1 - General Ulcer Assessment Start: 04/16/21 13:21 Freq: Status: Active Protocol: NIGEL Activity Type Activity Date Activity User E-Sign Co-Sign Detail Recorded Client Recorded Date Recorded By Document 04/16/21 13:21 ML [id number] 04/16/21 13:26 ML Document 04/22/21 08:59 DL [id number] 04/22/21 09:04 DL Document 04/29/21 09:00 BMF [id number] 04/29/21 09:11 BMF 04/16/21 04/22/21 04/29/21 13:21 08:59 09:00 - Today's Visit Information Type of service Follow-up Visit Follow-up Visit Follow-up Visit (Physician/MANAGER TECHNICAL TRAINING (Physician/MANAGER TECHNICAL TRAINING (Physician/MANAGER TECHNICAL TRAINING ) ) ) Arrival Mode Other Ambulatory Ambulatory Arrival Mode (Other) knee scooter Transfer Assistance None None None Patient Identification Verified (Name & Yes Yes ) Patient Requires Transmission-Based No No Precautions Safety Precautions NA Finger Stick Blood Sugar(mg/dl) (if 130 123 132 indicated): Blood Sugar Stated by Stated by Stated by Patient Patient Patient Height and Weight Body Mass Index (BMI) 47.7 47.7 47.7 BMI Classification Obese Obese Obese Vital Signs Temperature (97.8 F-99.1 F) 97.9 F 96.8 F L 96.9 F L Temperature Source Temporal Temporal Temporal Pulse Rate (60-100) 107 H 91 94 Pulse Location Monitor Monitor Monitor Respiratory Rate (12-18) 16 24 H 18 Respiratory rate source Observation Observation Oxygen Delivery Method Room Air Blood Pressure (90/60-120/80) 141/93 H 156/88 H 165/90 H Blood Pressure Mean (mm Hg) 109 110 115 Source Monitor Monitor Monitor Position Sitting Sitting Blood Pressure Location Left Arm Left Forearm History Since Last Visit- (Skip if this is Patient's initial visit) Have you changed medications since your No No No last visit? Any new allergies or adverse reactions No No No Had a fall/change in ADL's that may No No No increase risk of falls Signs or symptoms of abuse and/or No No No neglect since last visit Have you been in the hospital since your No No No last visit? Has dressing in place as prescribed Yes Yes Yes Has compression in place as prescribed N/A Yes Yes Has offloadiing in place as prescribed N/A Yes Yes Experienced any changes in pain level or No No No management Left Footwear No Footwear Regular Shoe Right Footwear Regular Shoe Surgical Shoe with pressure relief insole Pain Scale: 0-10 Numeric Is Patient Pain Free? Yes Yes Yes WC - Nurse 1 - General Ulcer Measurement Start: 04/16/21 13:21 Freq: Status: Active Protocol: Activity Type Activity Date Activity User E-Sign Co-Sign Detail Recorded Client Recorded Date Recorded By Document 04/16/21 13:21 ML [id number] 04/16/21 13:26 ML Document 04/22/21 08:59 DL [id number] 04/22/21 09:04 DL Document 04/29/21 09:00 [facility] [id number] 04/29/21 09:11 BMF 04/16/21 04/22/21 04/29/21 13:21 08:59 09:00 Wound Center Nurse 1 6-right lateral foot -Combined with other wound No -Current Size (cm) - Length 2 1.5 0.7 -Current Size (cm) - Width 0.8 0.7 0.5 -Current Size (cm) - Depth 1.6 0.1 0.4 -Total Square Cm 1.6 1.05 0.35 -Photo Taken No No -Epithelialization None Present -Tunneling No -Undermining/Tunneling No -Circular Undermining No -Exudate Amt Medium Small Medium -Exudate Type Serosanguineous Serosanguineous Sanguineous -Wound Margin Distinct, Distinct, Distinct, Outline Outline Outline Attached Attached Attached -Granulation Amt Medium (34-66%) Medium (34-66%) Medium (34-66%) -Granulation Quality [place] -Slough/Fibrin Yes Yes -Necrosis Amt Medium (34-66%) Medium (34-66%) Medium (34-66%) -Necrotic Tissue Type Adherent Slough Adherent Slough -Structure Exposed N/A -Texture (Michelle-wound Skin Appearance) Assessed Scarring Assessed, Scarring -Moisture (Michelle-wound Skin Appearance) Maceration Maceration Assessed,Dry/ Scaly -Color (Michelle-wound Skin Appearance) Assessed Hemosiderin Assessed Staining -Temperature (Michelle-wound Skin No Abnormality No Abnormality No Abnormality Appearance) (Pt Warm) (Pt Warm) (Pt Warm) -Tenderness on Palpation (Michelle-wound No No Skin Appearance) -Ulcer Cleansing Soap and Water Wound Cleanser Rinsed/ Irrigated with Saline -Foul Odor after Cleansing No No No -Anesthetic Used 4% Lidocaine 4% Lidocaine 5% Lidocaine Solution Solution Gel #4 R PLANTAR POST OP -Combined with other wound No -Current Size (cm) - Length 0.7 1 0.1 -Current Size (cm) - Width 1 1.2 0.3 -Current Size (cm) - Depth 2.8 0.5 0.7 -Total Square Cm 0.7 1.2 0.03 -Photo Taken No No -Epithelialization None Present -Tunneling No -Undermining/Tunneling No -Maximum Distance #2 (cm) 3.1 -Circular Undermining Yes No -Exudate Amt Large Medium Medium -Exudate Type Serosanguineous Serosanguineous Sanguineous -Wound Margin Distinct, Distinct, Distinct, Outline Outline Outline Attached Attached Attached -Granulation Amt Medium (34-66%) Medium (34-66%) Large (67-100%) -Granulation Quality [place] -Slough/Fibrin Yes No -Necrosis Amt Medium (34-66%) Medium (34-66%) None Present (0 %) -Necrotic Tissue Type Adherent Slough -Structure Exposed N/A -Texture (Michelle-wound Skin Appearance) Assessed Scarring Assessed,Callus ,Scarring -Moisture (Michelle-wound Skin Appearance) Maceration Maceration Assessed -Color (Michelle-wound Skin Appearance) Assessed Hemosiderin Assessed Staining -Temperature (Michelle-wound Skin No Abnormality No Abnormality No Abnormality Appearance) (Pt Warm) (Pt Warm) (Pt Warm) -Tenderness on Palpation (Mice[place]le-wound No No Skin Appearance) -Ulcer Cleansing Soap and Water Soap and Water Rinsed/ Irrigated with Saline -Foul Odor after Cleansing No No No -Anesthetic Used 4% Lidocaine 4% Lidocaine 5% Lidocaine Solution Solution Gel Lower Limb Edema Present Yes Right Calf (cm) 47.2 Right Ankle (cm) 25.5 WC - Nurse 2 - General Ulcer CM Notes Start: 04/16/21 13:21 Freq: Status: Active Protocol: Activity Type Activity Date Activity User E-Sign Co-Sign Detail Recorded Client Recorded Date Recorded By Document 04/16/21 14:00 JF [id number] 04/16/21 14:04 Document 04/22/21 09:20 JF [id number] 04/22/21 09:25 Document 04/29/21 09:43 [id number] 04/29/21 09:49 04/16/21 04/22/21 04/29/21 14:00 09:20 09:43 Wound Center Nurse 2 6-right lateral foot -Time 14:00 09:20 09:43 -Correct Patient Yes Yes Yes -Correct Side, Site, Position Yes Yes Yes -Correct Procedure Yes Yes Yes -Procedure Performed Yes Yes Yes -Type of Procedure Debridement Debridement Debridement -Clinical Debridement Subcutaneous Subcutaneous Subcutaneous -Tissue Removed Subcutaneous Subcutaneous Subcutaneous -Post Debridement (cm) - Length 2 0.6 1 -Post Debridement (cm) - Width 0.9 1.4 1.8 -Post Debridement (cm) - Depth 1.6 0.2 0.6 -Total Square (Post) (cm) 1.8 0.84 1.8 -Area of Debridement (cm) - Length 2 0.6 1 -Area of Debridement (cm) - Width 0.9 1.4 1.8 -Total Square (Area) (cm) 1.8 0.84 1.8 -Tunneling No No No -Undermining/Tunneling No No No -Circular Undermining No No No -Wound/Ulcer Outcome Not Healed Not Healed Not Healed -Ulcer Cleansing Rinsed/ Rinsed/ Rinsed/ Irrigated with Irrigated with Irrigated with Saline Saline Saline -Foul Odor after Cleansing No No No -Bioengineered Tissue No No No -Bleeding Controlled with Pressure Pressure Pressure -Offloading Yes Yes Yes -Type of Offloading Surgical Shoe Knee Walker Knee Walker -Treatment Response Procedure Procedure Procedure Tolerated Well Tolerated Well Tolerated Well -Debridement - Subq, 1st 20sq cm Yes Yes Yes #4 R PLANTAR POST OP -Time 14:01 09:20 09:43 -Correct Patient Yes Yes Yes -Correct Side, Site, Position Yes Yes Yes -Correct Procedure Yes Yes Yes -Procedure Performed Yes Yes Yes -Type of Procedure Debridement Incision & Debridement Drainage -Clinical Debridement Subcutaneous Muscle / Fascia Subcutaneous -Tissue Removed Subcutaneous Muscle Subcutaneous -Post Debridement (cm) - Length 0.8 0.7 0.4 -Post Debridement (cm) - Width 1.1 1.4 1.4 -Post Debridement (cm) - Depth 2.8 2.8 2.2 -Total Square (Post) (cm) 0.88 0.98 0.56 -Area of Debridement (cm) - Length 0.8 0.7 0.4 -Area of Debridement (cm) - Width 1.1 1.4 1.4 -Total Square (Area) (cm) 0.88 0.98 0.56 -Tunneling No No No -Undermining/Tunneling No No -Circular Undermining No No No -Wound/Ulcer Outcome Not Healed Not Healed -Ulcer Cleansing Rinsed/ Wound Cleanser Rinsed/ Irrigated with Irrigated with Saline Saline -Foul Odor after Cleansing No No No -Bioengineered Tissue No No -Bleeding Controlled with Pressure Pressure Pressure -Offloading Yes Yes Yes -Type of Offloading Surgical Shoe Knee Walker Knee Walker -Treatment Response Procedure Procedure Procedure Tolerated Well Tolerated Well Tolerated Well -Debridement - Subq, 1st 20sq cm No No No -Debridement - Muscle / Fascia, 1st Yes 20sq cm Pain Scale: 0-10 Numeric Is Patient Pain Free? Yes Yes Yes WC - Nurse 3 - General Ulcer D/C NN Start: 04/16/21 13:21 Freq: Status: Active Protocol: Activity Type Activity Date Activity User E-Sign Co-Sign Detail Recorded Client Recorded Date Recorded By Document 04/16/21 14:16 DL [id number] 04/16/21 14:18 DL Document 04/22/21 09:38 DL [id number] 04/22/21 09:40 DL Document 04/29/21 10:06 [facility] [id number] 04/29/21 10:07 [facility] 04/16/21 04/22/21 04/29/21 14:16 09:38 10:06 Wound Care Nurse 3 6-right lateral foot -Ulcer Cleansing Rinsed/ Wound Cleanser Rinsed/ Irrigated with Irrigated with Saline Saline -Foul Odor after Cleansing No No No -Primary Dressing Applied Promogran Promogran Promogran Kesha Matter Kesha Matter Kesha Matter -Primary Dressing Covered/Secured with Dry Gauze & Dry Gauze & Dry Gauze & Roll Gauze, Roll Gauze, Roll Gauze, Secured with Secured with Secured with Tape Tape Tape -Other Covering abd pad, drsg per mw rn -Promogran Kesha Matter 1 1 1 #4 R PLANTAR POST OP -Ulcer Cleansing Rinsed/ Rinsed/ Rinsed/ Irrigated with Irrigated with Irrigated with Saline Saline Saline -Foul Odor after Cleansing No No No -Primary Dressing Applied Other -Other Dressing Iodine Packing betadine iodine gauze, abd -Primary Dressing Covered/Secured with Dry Gauze & Dry Gauze & Dry Gauze & Roll Gauze, Roll Gauze, Roll Gauze, Secured with Secured with Secured with Tape Tape Tape -Other Covering drsg per mw rn Right -Compression Wrap Jens Wrap Treatment Response Procedure Procedure Procedure Tolerated Well Tolerated Well Tolerated Well Pain Scale: 0-10 Numeric Is Patient Pain Free? Yes Yes Yes WC - Visit Discharge Discharge Condition Stable Stable Stable Ambulatory Status Ambulatory Ambulatory, Ambulatory, Walker Walker Transportation Private Auto Private Auto Notes: knee walker Facility Type Home Health Home Health Home Health Orders Sent Yes Yes Additional Wound Wound debrided: Plantar foot Laterality: Right Type of Debridement: Excisional debridement Anesthesia Used: 4% Lidocaine Solution Depth: to muscle Percentage of wound debrided: 100 Instrument Used: 3mm curette Tissue Removed: Includes fibrous, devitalized, biofilm, callus and slough tissue Severity: Fat Layer Exposed Amount of bleeding with debridement: Mild Bleeding Controlled with: Pressure Patient tolerated procedure: Patient tolerated procedure well Assessment/Plan Assessment/Plan (1) Chronic ulcer of right foot with necrosis of bone: CODE(S): L97.514 - Non-pressure chronic ulcer of other part of right foot with necrosis of bone (2) Non-pressure chronic ulcer of other part of right foot with fat layer exposed: CODE(S): L97.512 - Non-pressure chronic ulcer of other part of right foot with fat layer exposed (3) Type 2 diabetes mellitus with diabetic polyneuropathy: CODE(S): E11.42 - Type 2 diabetes mellitus with diabetic polyneuropathy QUALIFIERS: Diabetes mellitus ferry terminal agent insulin use: unspecified senior care insulin use status Qualified Code(s): E11.42 - Type 2 diabetes mellitus with diabetic polyneuropathy (4) Osteomyelitis: CODE(S): M86.9 - Osteomyelitis, unspecified QUALIFIERS: Osteomyelitis type: other acute Osteomyelitis location: foot Laterality: right Qualified Code(s): M86.171 - Other acute osteomyelitis, right ankle and foot (5) Tobacco abuse: CODE(S): Z72.0 - Tobacco use (6) Venous insufficiency: CODE(S): I87.2 - Venous insufficiency (chronic) (peripheral) (7) Obese: CODE(S): E66.9 - Obesity, unspecified QUALIFIERS: Obesity type: due to excess calories Obesity classification: adult class 3 (BMI >= 40) Serious obesity comorbidity presence: with serious comorbidity Body mass index: BMI 40.0-44.9 Qualified Code(s): E66.01 - Morbid (severe) obesity due to excess calories; Z68.41 - Body mass index [BMI]40.0-44.9, adult (8) History of amputation of foot: CODE(S): Z89.439 - Acquired absence of unspecified foot QUALIFIERS: Laterality: right Qualified Code(s): Z89.431 - Acquired absence of right foot (9) Bilateral lower extremity edema: CODE(S): R60.0 - Localized edema (10) Cellulitis of right foot: CODE(S): L03.115 - Cellulitis of right lower limb (11) Charcot's joint, right ankle and foot: CODE(S): M14.671 - Charcot's joint, right ankle and foot PLAN: Patient seen and examined. Debridement was performed as noted in the clinical panel. There is less probing noted to plantar wound and skin island has formed on lateral foot wound. Bone culture was positive for OM 04/08/2021. Patient saw Dr Soto, infectious disease, who agreed with continued course of augmentin for 6 weeks. Culture 04/08/21 demonstrate MSSA, strep, and anaerobic cocci. Recent lab work was reviewed. XR taken 04/21/21 were reviewed which show midfoot changes concerning for osteomyelitis and charcot. When compared to XR on 01/22/21 there is more consolidation noted. There is concern for reactivation of his Charcot and osteomyelitis Patient to remain nonweightbearing to the right lower extremity. Use wheelchair or knee walker. Patient is noted to also have gotten an electric scooter in order to offload his foot He is at risk for further amputation of foot or leg. He has a AKUTAN walker ready at [employer] once healed. If he feels he can get his foot in there with a minimal dressing he can begin wearing this for offloading. To continue Betadine wet-to-dry quarter inch packing dressing changes to plantar wound and Kesha dressing changes to the lateral foot wound after foot is washed with soap and water. This to be changed every other day. This to be covered with dry sterile dressing. I recommend Glen for nutritional supplementation to optimize healing. All questions answered. To follow-up next week. Patient is aware that I am leaving the wound care center and that he will continue care with another practitioner. Patient is agreeable to this and understands. Patient is agreeable to see any practitioner at the wound care center. Discussed need to follow-up at the foot and ankle Center in 1 month for continued monitoring of his Charcot. Patient relates that he will call the office to set up this appointment. Note: [employer] speech recognition supervisor mold shop software was used to create portions of this document. Sound-alike and misspelled words, as well as other supervisor mold shop errors may be contained in the documentation.
[2021-05-06 08:08] VITALS: BP 142/76; PULSE 102; RESP 20; TEMP 36.2; BMI 47.7
--- NOTE | 2021-05-06 08:59 | PCM.WC.HP ---
History of Present Illness Date of Service: 05/06/21 Chief Complaint: Right foot plantar and lateral ulcers History of Wound: Patient is a 50-year-old male who presents to the wound care center for follow-up complicated right foot ulcers with history of Charcot and osteomyelitis. It is noted that he had a prior surgical debridement with Dr. Otoole on 01-15-21 including bone. Also had bone debrided in clinic last week which was sent for microbiology assessment. He has recently been changing the dressing with Betadine and Kesha. He has not able to get Dakin's solution as recommended. He has been on oral Augmentin recently. He has been trying to keep weight off of this however it is very difficult. He does have a knee roller. Progress of Wound: Some improvement [facility] Medical History (Updated 05/06/21 @ 09:[address] Steven Romano MD) Amputation of toe of left foot Cellulitis Charcot arthropathy of midfoot Chronic venous insufficiency DVT (deep venous thrombosis) History of esophageal disorder Hypertension KRYSTAL (obstructive sleep apnea) Osteoarthritis Tobacco abuse counseling Type 2 diabetes mellitus Venous insufficiency Home Medications metformin 1,000 mg PO BID 01/23/20 [History Last Taken 01/13/21] acetaminophen 650 mg PO Q6H PRN PRN tab 07/23/20 [Rx Last Taken Unknown] lisinopril 20 mg PO DAILY 10/29/20 [History Last Taken 01/13/21] sitagliptin 100 mg PO DAILY 10/29/20 [History Last Taken 01/13/21] apixaban 5 mg PO BID #60 tab.ds.pk 10/31/20 [Rx Last Taken 01/13/21 16:00] Handicap Placard #1 ea 12/05/20 [Rx Last Taken Unknown] Trulicity 3 mg SUBCUT TU 01/13/21 [History Last Taken 01/07/21] doxycycline monohydrate 100 mg PO BID #84 tab 01/21/21 [Rx Last Taken Unknown] oxycodone-acetaminophen 1 tab PO Q6H PRN PRN 3 Days #12 tablet 01/22/21 [Rx Last Taken Unknown] nicotine 21 mg/24 hr daily transdermal patch 1 patch TRANSDERMAL Q24H #28 ea 01/31/21 [Rx Last Taken Unknown] amoxicillin-pot clavulanate [Augmentin] 1 tab PO BID 14 Days #28 tab 04/08/21 [Rx Last Taken Unknown] Allergy/AdvReac Type Severity Reaction Status Date / Time ketorolac [From Toradol] AdvReac Upset Verified 01/31/21 11:07 Stomach NSAIDS (Non-Steroidal AdvReac Upset Verified 01/31/21 11:07 Anti-Inflamma Stomach Family History Mother Hypertension Diabetes Heart disease Sister Hypertension Diabetes Crohns disease Brother Diabetes Surgical History History of cholecystectomy History of esophageal surgery Status post amputation of right foot through metatarsal bone Social History Smoking Status: Current every day smoker tobacco type: cigarettes alcohol intake: never substance use type: does not use what type of physical activity do you participate in: walking frequency: daily Vital Signs Vital Signs Vital Signs: 05/06/21 08:08 Temperature 97.1 F L Temperature Source Temporal Pulse Rate 102 H Respiratory Rate 20 H Blood Pressure 142/76 H Blood Pressure Mean 98 Blood Pressure Source Monitor Weight Body Mass Index (BMI) 47.7 Physical Exam Const alert, oriented x3, no apparent distress and well nourished Constitutional Narrative: The patient is obese. General Appearance: cooperative, comfortable and well developed Orientation / Consciousness: awake, oriented to person, oriented to place and oriented to time HEENT normocephalic and head/scalp atraumatic Head and Scalp: normal to inspection, normocephalic and atraumatic External Ear: external ears normal Eyes PERRL and EOMs intact bilaterally General Eye: normal appearance of both eyes Resp normal respiratory effort, normal air movement, no retractions and no use of accessory muscles Effort and Inspection: able to speak in complete sentences Extremity no calf tenderness General Extremity: Negative for clubbing or cyanosis Skin Wound Narrative: There is moderate swelling and edema in the patient's right lower extremity. In addition, chronic hyperpigmentation is also noted in the gaiter area. The patient's right foot is extremely swollen and edematous. A Charcot foot deformity is noted. Only the first and third toes are present, the second fourth and fifth toes having been previously amputated. Ulcerations are noted on the plantar aspect and the lateral aspect of the right foot. The ulceration on the plantar portion of the foot is nearly healed, and quite small. Dimensions are documented elsewhere. There are paired ulcerations on the right lateral foot, the dimensions of which are also documented. There is no obvious sign of infection or cellulitis. There is a moderate amount of bioburden at each of the sites. Neuro oriented x3, CN's II-XII intact bilaterally and moves all extremities Sensorium / Orientation: awake, alert, oriented to person, oriented to place and oriented to time Psych Appearance: grossly normal and appropriate Attitude: calm Activity / Motor Behavior: appropriate eye contact Speech: normal speech Mood & Affect: euthymic mood Thought Process: normal thought process Thought Content: normal thought content Attention / Concentration: attention grossly intact Debridement Note Debridement Note Wound debrided: Right foot, plantar and lateral Laterality: Right Type of Debridement: Excisional debridement Anesthesia Used: 5% Lidocaine Gel Depth: Down to and including healthy tissue and in the subcutaneous layer Instrument Used: 3mm curette Tissue Removed: Bioburden Severity: Fat Layer Exposed Amount of bleeding with debridement: Mild Bleeding Controlled with: Compression and gauze Patient tolerated procedure: Patient tolerated procedure well Post-Debridement Measurements and Additional Note: Post-Debridement Measurements/Treatment - Nurse 1 - General Ulcer Assessment Start: 04/16/21 13:21 Freq: Status: Active Protocol: NIGEL Activity Type Activity Date Activity User E-Sign Co-Sign Detail Recorded Client Recorded Date Recorded By Document 04/16/21 13:21 ML [id number] 04/16/21 13:26 ML Document 04/22/21 08:59 DL [id number] 04/22/21 09:04 DL Document 04/29/21 09:00 [facility] [id number] 04/29/21 09:11 [facility] Document 05/06/21 08:08 DL [id number] 05/06/21 08:21 DL 04/16/21 04/22/21 04/29/21 13:21 08:59 09:00 - Today's Visit Information Type of service Follow-up Visit Follow-up Visit Follow-up Visit (Physician/PAPER PRODUCTION ENGINEER (Physician/PAPER PRODUCTION ENGINEER (Physician/PAPER PRODUCTION ENGINEER ) ) ) Arrival Mode Other Ambulatory Ambulatory Arrival Mode (Other) knee scooter Transfer Assistance None None None Patient Identification Verified (Name & Yes Yes ) Patient Requires Transmission-Based No No Precautions Safety Precautions NA Finger Stick Blood Sugar(mg/dl) (if 130 123 132 indicated): Blood Sugar Stated by Stated by Stated by Patient Patient Patient Height and Weight Body Mass Index (BMI) 47.7 47.7 47.7 BMI Classification Obese Obese Obese Vital Signs Temperature (97.8 F-99.1 F) 97.9 F 96.8 F L 96.9 F L Temperature Source Temporal Temporal Temporal Pulse Rate (60-100) 107 H 91 94 Pulse Location Monitor Monitor Monitor Respiratory Rate (12-18) 16 24 H 18 Respiratory rate source Observation Observation Oxygen Delivery Method Room Air Blood Pressure (90/60-120/80) 141/93 H 156/88 H 165/90 H Blood Pressure Mean 109 110 115 Source Monitor Monitor Monitor Position Sitting Sitting Blood Pressure Location Left Arm Left Forearm History Since Last Visit- (Skip if this is Patient's initial visit) Have you changed medications since your No No No last visit? Any new allergies or adverse reactions No No No Had a fall/change in ADL's that may No No No increase risk of falls Signs or symptoms of abuse and/or No No No neglect since last visit Have you been in the hospital since your No No No last visit? Has dressing in place as prescribed Yes Yes Yes Has compression in place as prescribed N/A Yes Yes Has offloadiing in place as prescribed N/A Yes Yes Experienced any changes in pain level or No No No management Left Footwear No Footwear Regular Shoe Right Footwear Regular Shoe Surgical Shoe with pressure relief insole Pain Scale: 0-10 Numeric Is Patient Pain Free? Yes Yes Yes 05/06/21 08:08 WC - Today's Visit Information Type of service Follow-up Visit (Physician/PAPER PRODUCTION ENGINEER ) Arrival Mode Ambulatory Arrival Mode (Other) Transfer Assistance None Patient Identification Verified (Name & Yes ) Patient Requires Transmission-Based No Precautions Safety Precautions Finger Stick Blood Sugar(mg/dl) (if 115 indicated): Blood Sugar Stated by Patient Height and Weight Body Mass Index (BMI) 47.7 BMI Classification Obese Vital Signs Temperature (97.8 F-99.1 F) 97.1 F L Temperature Source Temporal Pulse Rate (60-100) 102 H Pulse Location Monitor Respiratory Rate (12-18) 20 H Respiratory rate source Observation Oxygen Delivery Method Blood Pressure (90/60-120/80) 142/76 H Blood Pressure Mean 98 Source Monitor Position Blood Pressure Location History Since Last Visit- (Skip if this is Patient's initial visit) Have you changed medications since your No last visit? Any new allergies or adverse reactions No Had a fall/change in ADL's that may No increase risk of falls Signs or symptoms of abuse and/or No neglect since last visit Have you been in the hospital since your No last visit? Has dressing in place as prescribed Yes Has compression in place as prescribed N/A Has offloadiing in place as prescribed Yes Experienced any changes in pain level or No management Left Footwear Regular Shoe Right Footwear No Footwear Pain Scale: 0-10 Numeric Is Patient Pain Free? Yes WC - Nurse 1 - General Ulcer Measurement Start: 04/16/21 13:21 Freq: Status: Active Protocol: Activity Type Activity Date Activity User E-Sign Co-Sign Detail Recorded Client Recorded Date Recorded By Document 04/16/21 13:21 ML [id number] 04/16/21 13:26 ML Document 04/22/21 08:59 DL [id number] 04/22/21 09:04 DL Document 04/29/21 09:00 BMF [id number] 04/29/21 09:11 BMF Document 05/06/21 08:08 DL [id number] 05/06/21 08:21 DL 04/16/21 04/22/21 04/29/21 13:21 08:59 09:00 Wound Center Nurse 1 #7 R lat foot Inf -Current Size (cm) - Length -Current Size (cm) - Width -Current Size (cm) - Depth -Total Square Cm -Photo Taken -Exudate Amt -Exudate Type -Wound Margin -Granulation Amt -Granulation Quality -Necrosis Amt -Necrotic Tissue Type -Structure Exposed -Texture (Michelle-wound Skin Appearance) -Moisture (Michelle-wound Skin Appearance) -Color (Michelle-wound Skin Appearance) -Temperature (Michelle-wound Skin Appearance) -Ulcer Cleansing -Foul Odor after Cleansing -Anesthetic Used 6-right lateral foot -Combined with other wound No -Current Size (cm) - Length 2 1.5 0.7 -Current Size (cm) - Width 0.8 0.7 0.5 -Current Size (cm) - Depth 1.6 0.1 0.4 -Total Square Cm 1.6 1.05 0.35 -Photo Taken No No -Epithelialization None Present -Tunneling No -Undermining/Tunneling No -Circular Undermining No -Exudate Amt Medium Small Medium -Exudate Type Serosanguineous Serosanguineous Sanguineous -Wound Margin Distinct, Distinct, Distinct, Outline Outline Outline Attached Attached Attached -Granulation Amt Medium (34-66%) Medium (34-66%) Medium (34-66%) -Granulation Quality Shrub Oak Shrub Oak -Slough/Fibrin Yes Yes -Necrosis Amt Medium (34-66%) Medium (34-66%) Medium (34-66%) -Necrotic Tissue Type Adherent Slough Adherent Slough -Structure Exposed N/A -Texture (Michelle-wound Skin Appearance) Assessed Scarring Assessed, Scarring -Moisture (Michelle-wound Skin Appearance) Maceration Maceration Assessed,Dry/ Scaly -Color (Michelle-wound Skin Appearance) Assessed Hemosiderin Assessed Staining -Temperature (Michelle-wound Skin No Abnormality No Abnormality No Abnormality Appearance) (Pt Warm) (Pt Warm) (Pt Warm) -Tenderness on Palpation (Michelle-wound No No Skin Appearance) -Ulcer Cleansing Soap and Water Wound Cleanser Rinsed/ Irrigated with Saline -Foul Odor after Cleansing No No No -Anesthetic Used 4% Lidocaine 4% Lidocaine 5% Lidocaine Solution Solution Gel #4 R PLANTAR POST OP -Combined with other wound No -Current Size (cm) - Length 0.7 1 0.1 -Current Size (cm) - Width 1 1.2 0.3 -Current Size (cm) - Depth 2.8 0.5 0.7 -Total Square Cm 0.7 1.2 0.03 -Photo Taken No No -Epithelialization None Present -Tunneling No -Undermining/Tunneling No -Maximum Distance #2 (cm) 3.1 -Circular Undermining Yes No -Exudate Amt Large Medium Medium -Exudate Type Serosanguineous Serosanguineous Sanguineous -Wound Margin Distinct, Distinct, Distinct, Outline Outline Outline Attached Attached Attached -Granulation Amt Medium (34-66%) Medium (34-66%) Large (67-100%) -Granulation Quality Shrub Oak,Red Shrub Oak -Slough/Fibrin Yes No -Necrosis Amt Medium (34-66%) Medium (34-66%) None Present (0 %) -Necrotic Tissue Type Adherent Slough -Structure Exposed N/A -Texture (Michelle-wound Skin Appearance) Assessed Scarring Assessed,Callus ,Scarring -Moisture (Michelle-wound Skin Appearance) Maceration Maceration Assessed -Color (Michelle-wound Skin Appearance) Assessed Hemosiderin Assessed Staining -Temperature (Michelle-wound Skin No Abnormality No Abnormality No Abnormality Appearance) (Pt Warm) (Pt Warm) (Pt Warm) -Tenderness on Palpation (Michelle-wound No No Skin Appearance) -Ulcer Cleansing Soap and Water Soap and Water Rinsed/ Irrigated with Saline -Foul Odor after Cleansing No No No -Anesthetic Used 4% Lidocaine 4% Lidocaine 5% Lidocaine Solution Solution Gel Lower Limb Edema Present Yes Right Calf (cm) 47.2 Right Ankle (cm) 25.5 05/06/21 08:08 Wound Center Nurse 1 #7 R lat foot Inf -Current Size (cm) - Length 0.8 -Current Size (cm) - Width 0.7 -Current Size (cm) - Depth 0.1 -Total Square Cm 0.56 -Photo Taken Yes -Exudate Amt Small -Exudate Type Serosanguineous -Wound Margin Distinct, Outline Attached -Granulation Amt Small (1-33%) -Granulation Quality [place]rub [place] -Necrosis Amt Large (67-100%) -Necrotic Tissue Type Adherent Slough -Structure Exposed N/A -Texture (Michelle-wound Skin Appearance) Localized Edema ,Scarring -Moisture (Michelle-wound Skin Appearance) Not Assessed -Color (Michelle-wound Skin Appearance) Hemosiderin Staining -Temperature (Michelle-wound Skin No Abnormality Appearance) (Pt Warm) -Ulcer Cleansing Soap and Water -Foul Odor after Cleansing Yes, Due to Product Use -Anesthetic Used 4% Lidocaine Solution 6-right lateral foot -Combined with other wound -Current Size (cm) - Length 3.5 -Current Size (cm) - Width 2 -Current Size (cm) - Depth 0.1 -Total Square Cm 7.0 -Photo Taken No -Epithelialization -Tunneling -Undermining/Tunneling -Circular Undermining -Exudate Amt Medium -Exudate Type Serosanguineous -Wound Margin Thickened -Granulation Amt Small (1-33%) -Granulation Quality Red -Slough/Fibrin -Necrosis Amt Large (67-100%) -Necrotic Tissue Type Adherent Slough -Structure Exposed N/A -Texture (Michelle-wound Skin Appearance) Localized Edema ,Scarring -Moisture (Michelle-wound Skin Appearance) Maceration -Color (Michelle-wound Skin Appearance) Hemosiderin Staining -Temperature (Michelle-wound Skin No Abnormality Appearance) (Pt Warm) -Tenderness on Palpation (Michelle-wound No Skin Appearance) -Ulcer Cleansing Soap and Water -Foul Odor after Cleansing No -Anesthetic Used 4% Lidocaine Solution #4 R PLANTAR POST OP -Combined with other wound -Current Size (cm) - Length 0.1 -Current Size (cm) - Width 0.1 -Current Size (cm) - Depth 0.1 -Total Square Cm 0.01 -Photo Taken No -Epithelialization -Tunneling -Undermining/Tunneling -Maximum Distance #2 (cm) -Circular Undermining -Exudate Amt None Present -Exudate Type -Wound Margin Thickened -Granulation Amt None Present (0 %) -Granulation Quality -Slough/Fibrin -Necrosis Amt Large (67-100%) -Necrotic Tissue Type Eschar -Structure Exposed N/A -Texture (Michelle-wound Skin Appearance) Localized Edema ,Scarring -Moisture (Michelle-wound Skin Appearance) Dry/Scaly -Color (Michelle-wound Skin Appearance) Hemosiderin Staining -Temperature (Michelle-wound Skin No Abnormality Appearance) (Pt Warm) -Tenderness on Palpation (Michelle-wound Skin Appearance) -Ulcer Cleansing -Foul Odor after Cleansing -Anesthetic Used 4% Lidocaine Solution Lower Limb Edema Present Right Calf (cm) 48 Right Ankle (cm) 30.5 WC - Nurse 2 - General Ulcer CM Notes Start: 04/16/21 13:21 Freq: Status: Active Protocol: Activity Type Activity Date Activity User E-Sign Co-Sign Detail Recorded Client Recorded Date Recorded By Document 04/16/21 14:00 JF [id number] 04/16/21 14:04 JF Document 04/22/21 09:20 JF [id number] 04/22/21 09:25 JF Document 04/29/21 09:43 JF [id number] 04/29/21 09:49 JF 04/16/21 04/22/21 04/29/21 14:00 09:20 09:43 Wound Center Nurse 2 6-right lateral foot -Time 14:00 09:20 09:43 -Correct Patient Yes Yes Yes -Correct Side, Site, Position Yes Yes Yes -Correct Procedure Yes Yes Yes -Procedure Performed Yes Yes Yes -Type of Procedure Debridement Debridement Debridement -Clinical Debridement Subcutaneous Subcutaneous Subcutaneous -Tissue Removed Subcutaneous Subcutaneous Subcutaneous -Post Debridement (cm) - Length 2 0.6 1 -Post Debridement (cm) - Width 0.9 1.4 1.8 -Post Debridement (cm) - Depth 1.6 0.2 0.6 -Total Square (Post) (cm) 1.8 0.84 1.8 -Area of Debridement (cm) - Length 2 0.6 1 -Area of Debridement (cm) - Width 0.9 1.4 1.8 -Total Square (Area) (cm) 1.8 0.84 1.8 -Tunneling No No No -Undermining/Tunneling No No No -Circular Undermining No No No -Wound/Ulcer Outcome Not Healed Not Healed Not Healed -Ulcer Cleansing Rinsed/ Rinsed/ Rinsed/ Irrigated with Irrigated with Irrigated with Saline Saline Saline -Foul Odor after Cleansing No No No -Bioengineered Tissue No No No -Bleeding Controlled with Pressure Pressure Pressure -Offloading Yes Yes Yes -Type of Offloading Surgical Shoe Knee Walker Knee Walker -Treatment Response Procedure Procedure Procedure Tolerated Well Tolerated Well Tolerated Well -Debridement - Subq, 1st 20sq cm Yes Yes Yes #4 R PLANTAR POST OP -Time 14:01 09:20 09:43 -Correct Patient Yes Yes Yes -Correct Side, Site, Position Yes Yes Yes -Correct Procedure Yes Yes Yes -Procedure Performed Yes Yes Yes -Type of Procedure Debridement Incision & Debridement Drainage -Clinical Debridement Subcutaneous Muscle / Fascia Subcutaneous -Tissue Removed Subcutaneous Muscle Subcutaneous -Post Debridement (cm) - Length 0.8 0.7 0.4 -Post Debridement (cm) - Width 1.1 1.4 1.4 -Post Debridement (cm) - Depth 2.8 2.8 2.2 -Total Square (Post) (cm) 0.88 0.98 0.56 -Area of Debridement (cm) - Length 0.8 0.7 0.4 -Area of Debridement (cm) - Width 1.1 1.4 1.4 -Total Square (Area) (cm) 0.88 0.98 0.56 -Tunneling No No No -Undermining/Tunneling No No -Circular Undermining No No No -Wound/Ulcer Outcome Not Healed Not Healed -Ulcer Cleansing Rinsed/ Wound Cleanser Rinsed/ Irrigated with Irrigated with Saline Saline -Foul Odor after Cleansing No No No -Bioengineered Tissue No No -Bleeding Controlled with Pressure Pressure Pressure -Offloading Yes Yes Yes -Type of Offloading Surgical Shoe Knee Walker Knee Walker -Treatment Response Procedure Procedure Procedure Tolerated Well Tolerated Well Tolerated Well -Debridement - Subq, 1st 20sq cm No No No -Debridement - Muscle / Fascia, 1st Yes 20sq cm Pain Scale: 0-10 Numeric Is Patient Pain Free? Yes Yes Yes WC - Nurse 3 - General Ulcer D/C NN Start: 04/16/21 13:21 Freq: Status: Active Protocol: Activity Type Activity Date Activity User E-Sign Co-Sign Detail Recorded Client Recorded Date Recorded By Document 04/16/21 14:16 DL [id number] 04/16/21 14:18 DL Document 04/22/21 09:38 DL [id number] 04/22/21 09:40 DL Document 04/29/21 10:06 [facility] [id number] 04/29/21 10:07 BM 04/16/21 04/22/21 04/29/21 14:16 09:38 10:06 Wound Care Nurse 3 6-right lateral foot -Ulcer Cleansing Rinsed/ Wound Cleanser Rinsed/ Irrigated with Irrigated with Saline Saline -Foul Odor after Cleansing No No No -Primary Dressing Applied Promogran Promogran Promogran Kesha Matter Kesha Matter Kesha Matter -Primary Dressing Covered/Secured with Dry Gauze & Dry Gauze & Dry Gauze & Roll Gauze, Roll Gauze, Roll Gauze, Secured with Secured with Secured with Tape Tape Tape -Other Covering abd pad, drsg per mw rn -Promogran Kesha Matter 1 1 1 #4 R PLANTAR POST OP -Ulcer Cleansing Rinsed/ Rinsed/ Rinsed/ Irrigated with Irrigated with Irrigated with Saline Saline Saline -Foul Odor after Cleansing No No No -Primary Dressing Applied Other -Other Dressing Iodine Packing betadine iodine gauze, abd -Primary Dressing Covered/Secured with Dry Gauze & Dry Gauze & Dry Gauze & Roll Gauze, Roll Gauze, Roll Gauze, Secured with Secured with Secured with Tape Tape Tape -Other Covering drsg per mw rn Right -Compression Wrap Jens Wrap Treatment Response Procedure Procedure Procedure Tolerated Well Tolerated Well Tolerated Well Pain Scale: 0-10 Numeric Is Patient Pain Free? Yes Yes Yes WC - Visit Discharge Discharge Condition Stable Stable Stable Ambulatory Status Ambulatory Ambulatory, Ambulatory, Walker Walker Transportation Private Auto Private Auto Notes: knee walker Facility Type Home Health Home Health Home Health Orders Sent Yes Yes Assessment/Plan Assessment/Plan (1) Non-pressure chronic ulcer of other part of right foot with fat layer exposed: CODE(S): L97.512 - Non-pressure chronic ulcer of other part of right foot with fat layer exposed (2) Tobacco abuse counseling: CODE(S): Z71.6 - Tobacco abuse counseling (3) Charcot arthropathy of midfoot: CODE(S): M14.679 - Charcot's joint, unspecified ankle and foot (4) Type 2 diabetes mellitus with diabetic polyneuropathy: CODE(S): E11.42 - Type 2 diabetes mellitus with diabetic polyneuropathy QUALIFIERS: Diabetes mellitus termite exterminator helper insulin use: unspecified senior living insulin use status Qualified Code(s): E11.42 - Type 2 diabetes mellitus with diabetic polyneuropathy (5) Tobacco abuse: CODE(S): Z72.0 - Tobacco use (6) Cellulitis of right foot: CODE(S): L03.115 - Cellulitis of right lower limb (7) Charcot's joint, right ankle and foot: CODE(S): M14.671 - Charcot's joint, right ankle and foot (8) Osteomyelitis: CODE(S): M86.9 - Osteomyelitis, unspecified QUALIFIERS: Osteomyelitis type: other acute Osteomyelitis location: foot Laterality: right Qualified Code(s): M86.171 - Other acute osteomyelitis, right ankle and foot (9) Type 2 diabetes mellitus: CODE(S): E11.9 - Type 2 diabetes mellitus without complications QUALIFIERS: Diabetes mellitus termite exterminator helper insulin use: without termite exterminator helper use Diabetes mellitus complication status: with diabetic arthropathy Diabetes mellitus complication detail: with neuropathic arthropathy Qualified Code(s): E11.610 - Type 2 diabetes mellitus with diabetic neuropathic arthropathy (10) Venous insufficiency: CODE(S): I87.2 - Venous insufficiency (chronic) (peripheral) (11) Obese: CODE(S): E66.9 - Obesity, unspecified QUALIFIERS: Obesity type: due to excess calories Obesity classification: adult class 3 (BMI >= 40) Serious obesity comorbidity presence: with serious comorbidity Body mass index: BMI 40.0-44.9 Qualified Code(s): E66.01 - Morbid (severe) obesity due to excess calories; Z68.41 - Body mass index [BMI]40.0-44.9, adult (12) History of amputation of foot: CODE(S): Z89.439 - Acquired absence of unspecified foot QUALIFIERS: Laterality: right Qualified Code(s): Z89.431 - Acquired absence of right foot (13) Bilateral lower extremity edema: CODE(S): R60.0 - Localized edema (14) Hypertension: CODE(S): I10 - Essential (primary) hypertension (15) Chronic venous insufficiency: CODE(S): I87.2 - Venous insufficiency (chronic) (peripheral) PLAN: This is a 50-year-old obese, diabetic male with a Charcot right foot deformity. He has had several toe amputations on the right foot, with only the first and third digit remaining. A noninvasive lower extremity arterial study was performed in July of this year, revealing no evidence of significant arterial occlusive disease. The patient, who is a known diabetic, is under the care of a local physician, Dr. Raymundo, who oversees and monitors the patient's diabetes mellitus. The patient has swelling and edema in his lower extremities. He has been advised to elevate his lower extremities as much as possible. He claims to sleep on a flat mattress at night. Leg elevation, even during daytime hours, has been encouraged. Leg elevation is to be to heart level, or higher. The patient is noted to be a smoker. Smoking has been discouraged. Counseling has been provided. With respect to the ulcerations on the right foot, he is currently using a [employer] walker and a scooter, for offloading purposes. Offloading measures have been strongly encouraged. We are to continue the use of Kesha to the ulcerations on the right foot. Patient has home health nursing care 3 times weekly, which will be continued. The patient is to follow-up in 1 week. However, due to the complexity of his podiatric foot problems, it has been recommended that he associate with a local route cdl driver. We will attempt to transition his care to a podiatric specialist. Until that happens, he will continue with weekly appointments under my care. It is noted that he was formerly a patient of Dr. Otoole, a podiatric specialist, who has left the community to establish practice elsewhere. Optimization of the patient's nutrition has been recommended, with the use of nutritional supplements as necessary. Total time: 65 minutes.
== END 2021-05-11 23:59 ==
LOC: WC 09:00
PROVIDERS: PCP Internal Medicine; Referring Provider Podiatrist Foot & Ankle Surgery; Visit Provider Surgery
DX: E11.621 Type 2 diabetes mellitus with foot ulcer (principal); L97.514 Non-pressure chronic ulcer of other part of right foot with necrosis of bone; E11.42 Type 2 diabetes mellitus with diabetic polyneuropathy; M86.171 Other acute osteomyelitis, right ankle and foot; A49.01 Methicillin susceptible Staphylococcus aureus infection, unspecified site; E11.69 Type 2 diabetes mellitus with other specified complication; I87.2 Venous insufficiency (chronic) (peripheral); E66.01 Morbid (severe) obesity due to excess calories; Z68.41 Body mass index [BMI] 40.0-44.9, adult; R60.0 Localized edema; Z89.431 Acquired absence of right foot; L03.115 Cellulitis of right lower limb; M14.671 Charcot's joint, right ankle and foot; F17.210 Nicotine dependence, cigarettes, uncomplicated; G47.33 Obstructive sleep apnea (adult) (pediatric); I10 Essential (primary) hypertension; M19.90 Unspecified osteoarthritis, unspecified site; Z79.1 Long term (current) use of non-steroidal anti-inflammatories (NSAID); Z79.01 Long term (current) use of anticoagulants; Z79.4 Long term (current) use of insulin
CPT/HCPCS: 11042; 11043; 73630

== ENCOUNTER → 2021-05-28 11:50 | Outpatient (CLI) | payer MEDICAID, SELFPAY ==
--- NOTE | 2021-05-28 12:05 | RAD_ITS ---
STUDY: X-RAY - RIGHT FOOT CLINICAL: Male, 51 years old. Also. TECHNIQUE: 3 view(s) of the foot. COMPARISON: 04/21/2021. FINDINGS: Again seen is evidence for Charcot joints involving the tarsals and metatarsal phalangeal joints with destructive process or scarring in the lateral portion. There is partial destruction of the lateral navicular when compared to the prior study. The talus and calcaneus appear intact. There is evidence of pes planus deformity. Again seen is absence of the fourth and fifth metatarsals. The bases of the metatarsals seen on the previous study demonstrated marked erosive changes. Erosive changes are also seen at the bases of the second and third metatarsals with sclerotic changes in the proximal shafts. Normal metatarsophalangeal joint of the great toe. Normal tibial and fibular sesamoid bones. Normal interphalangeal joint of the great toe. Normal phalanges of the great toe. No change in the second or third metatarsal joints or phalanges. There is marked soft tissue swelling over the lateral foot. The large erosive change on the dorsum of the foot on the previous study is not appreciated. RAD/Foot min 3 Views IMPRESSION: Worsening destructive changes on the lateral midfoot suggesting osteomyelitis. Electronically Signed: Mac Kapoor DO at 16:30 EST Tel [phone], Service support ,
== END ==
PROVIDERS: PCP Internal Medicine; Referring Provider Podiatrist; Visit Provider Podiatrist
DX: I73.9 Peripheral vascular disease, unspecified (principal); L97.512 Non-pressure chronic ulcer of other part of right foot with fat layer exposed
CPT/HCPCS: 73630

== ENCOUNTER 2021-06-04 14:30 | Outpatient (RCR) | payer MEDICAID, SELFPAY ==
[2021-05-12 00:25] VITALS: BP 142/76; PULSE 102; RESP 20; TEMP 36.2; BMI 47.7
[2021-05-13 10:03] VITALS: BP 150/81; PULSE 95; RESP 22; TEMP 36.2; BMI 47.7
--- NOTE | 2021-05-13 10:37 | HP.PCM_ITS ---
History of Present Illness Date of Service: 05/13/21 Chief Complaint: Right foot plantar and lateral ulcers History of Wound: Patient is a 50-year-old male who presents to the wound care center for follow-up complicated right foot ulcers with history of Charcot and osteomyelitis. It is noted that he had a prior surgical debridement with Dr. Otoole on 01-15-21 including bone. Also had bone debrided in clinic last week which was sent for microbiology assessment. He has recently been changing the d ressing with Betadine and Kesha. He has not able to get Dakin's solution as recommended. He has been on oral Augmentin recently. He has been trying to keep weight off of this however it is very difficult. He does have a knee roller. [facility] Medical History (Updated 05/13/21 @ 10:[address] Steven Romano MD) Amputation of toe of left foot Cellulitis Charcot arthropathy of midfoot Chronic venous insufficiency DVT (deep venous thrombosis) History of esophageal disorder Hypertension KRYSTAL (obstructive sleep apnea) Osteoarthritis Tobacco abuse counseling Type 2 diabetes mellitus Venous insufficiency Home Medications metformin 1,000 mg PO BID 01/23/20 [History Last Taken 01/13/21] acetaminophen 650 mg PO Q6H PRN PRN tab 07/23/20 [Rx Last Taken Unknown] lisinopril 20 mg PO DAILY 10/29/20 [History Last Taken 01/13/21] sitagliptin 100 mg PO DAILY 10/29/20 [History Last Taken 01/13/21] apixaban 5 mg PO BID #60 tab.ds.pk 10/31/20 [Rx Last Taken 01/13/21 16:00] Handicap Placard #1 ea 12/05/20 [Rx Last Taken Unknown] Trulicity 3 mg SUBCUT TU 01/13/21 [History Last Taken 01/07/21] doxycycline monohydrate 100 mg PO BID #84 tab 01/21/21 [Rx Last Taken Unknown] oxycodone-acetaminophen 1 tab PO Q6H PRN PRN 3 Days #12 tablet 01/22/21 [Rx Last Taken Unknown] nicotine 21 mg/24 hr daily transdermal patch 1 patch TRANSDERMAL Q24H #28 ea 01/31/21 [Rx Last Taken Unknown] amoxicillin-pot clavulanate [Augmentin] 1 tab PO BID 14 Days #28 tab 04/08/21 [Rx Last Taken Unknown] Allergy/AdvReac Type Severity Reaction Status Date / Time ketorolac [From Toradol] AdvReac Upset Verified 01/31/21 11:07 Stomach NSAIDS (Non-Steroidal AdvReac Upset Verified 01/31/21 11:07 Anti-Inflamma Stomach Family History Mother Hypertension Diabetes Heart disease Sister Hypertension Diabetes Crohns disease Brother Diabetes Surgical History History of cholecystectomy History of esophageal surgery Status post amputation of right foot through metatarsal bone Social History Smoking Status: Current every day smoker tobacco type: cigarettes alcohol intake: never substance use type: does not use what type of physical activity do you participate in: walking frequency: daily Vital Signs Vital Signs Vital Signs: 05/13/21 10:03 Temperature 97.2 F L Temperature Source Temporal Pulse Rate 95 Respiratory Rate 22 H Blood Pressure 150/81 H Blood Pressure Mean 104 Blood Pressure Source Monitor Weight Body Mass Index (BMI) 47.7 Physical Exam Const alert, oriented x3, no apparent distress and well nourished Constitutional Narrative: The patient is obese. General Appearance: cooperative, comfortable and well developed Orientation / Consciousness: awake, oriented to person, oriented to place and oriented to time HEENT normocephalic and head/scalp atraumatic Head and Scalp: normal to inspection, normocephalic and atraumatic External Ear: external ears normal Eyes PERRL and EOMs intact bilaterally General Eye: normal appearance of both eyes Resp normal respiratory effort, normal air movement, no retractions and no use of accessory muscles Effort and Inspection: able to speak in complete sentences Extremity no calf tenderness Extremity Narrative: Several toes have been amputated from the right foot. A Charcot foot deformity is noted of the right foot. Hyperpigmentation is noted in the gaiter area of the right lower extremity. Mild swelling and edema is noted in the right distal lower extremity. General Extremity: Negative for clubbing or cyanosis Skin Wound Narrative: The ulceration on the plantar aspect of the right foot appears to be healed, with only callus and eschar remaining. A small ulceration persists on the right lateral foot and in the right lateral infra-malleolar area. These ulcerations are relatively small in size. Dimensions are documented elsewhere. There is a moderate amount of bioburden. There is no sign of infection or cellulitis. Neuro oriented x3 and CN's II-XII intact bilaterally Sensorium / Orientation: awake, alert, oriented to person, oriented to place and oriented to time Speech: speech normal Psych Appearance: grossly normal and appropriate Attitude: calm Activity / Motor Behavior: appropriate eye contact Speech: normal speech Mood & Affect: euthymic mood Thought Process: normal thought process Thought Content: normal thought content Attention / Concentration: attention grossly intact Debridement Note Debridement Note Wound debrided: Right lateral foot and right lateral infra-malleolar area Laterality: Right Wound Grade/Stage: Sams grade 1 Type of Debridement: Excisional debridement Anesthesia Used: 5% Lidocaine Gel Depth: Down to and including healthy tissue and in the subcutaneous layer Percentage of wound debrided: 100 Instrument Used: 3mm curette Tissue Removed: Bioburden Severity: Fat Layer Exposed Amount of bleeding with debridement: Mild Bleeding Controlled with: Compression and gauze Patient tolerated procedure: Patient tolerated procedure well Post-Debridement Measurements and Additional Note: Post-Debridement Measurements/Treatment SANDEEP - Nurse 1 - General Ulcer Assessment Start: 05/13/21 10:02 Freq: Status: Active Protocol: NIGEL Activity Type Activity Date Activity User E-Sign Co-Sign Detail Recorded Client Recorded Date Recorded By Document 05/13/21 10:03 DL [id number] 05/13/21 10:14 DL 05/13/21 10:03 - Today's Visit Information Type of service Follow-up Visit (Physician/CRITICAL CARE NURSE SPECIALIST ) Arrival Mode Ambulatory, Walker Transfer Assistance None Patient Requires Transmission-Based No Precautions Finger Stick Blood Sugar(mg/dl) (if 117 indicated): Blood Sugar Stated by Patient Height and Weight Body Mass Index (BMI) 47.7 BMI Classification Obese Vital Signs Temperature (97.8 F-99.1 F) 97.2 F L Temperature Source Temporal Pulse Rate (60-100) 95 Pulse Location Monitor Respiratory Rate (12-18) 22 H Respiratory rate source Observation Blood Pressure (90/60-120/80) 150/81 H Blood Pressure Mean 104 Source Monitor History Since Last Visit- (Skip if this is Patient's initial visit) Have you changed medications since your No last visit? Any new allergies or adverse reactions No Had a fall/change in ADL's that may No increase risk of falls Signs or symptoms of abuse and/or No neglect since last visit Have you been in the hospital since your No last visit? Has dressing in place as prescribed Yes Has compression in place as prescribed Yes Experienced any changes in pain level or No management Right Footwear No Footwear Pain Scale: 0-10 Numeric Is Patient Pain Free? Yes WC - Nurse 1 - General Ulcer Measurement Start: 05/13/21 10:02 Freq: Status: Active Protocol: Activity Type Activity Date Activity User E-Sign Co-Sign Detail Recorded Client Recorded Date Recorded By Document 05/13/21 10:03 DL [id number] 05/13/21 10:14 DL 05/13/21 10:03 Wound Center Nurse 1 #7 R lat foot Inf -Current Size (cm) - Length 0.3 -Current Size (cm) - Width 0.4 -Current Size (cm) - Depth 1.3 -Total Square Cm 0.12 -Photo Taken No -Tunneling Position (O'clock) 3 -Tunneling Distance (cm) 2 -Exudate Amt Medium -Exudate Type Serosanguineous -Wound Margin Distinct, Outline Attached -Granulation Amt Small (1-33%) -Granulation Quality Red -Necrosis Amt Small (1-33%) -Necrotic Tissue Type Adherent Slough -Structure Exposed N/A -Texture (Michelle-wound Skin Appearance) Localized Edema ,Scarring -Moisture (Michelle-wound Skin Appearance) No Abnormality -Color (Michelle-wound Skin Appearance) Hemosiderin Staining -Temperature (Michelle-wound Skin No Abnormality Appearance) (Pt Warm) -Tenderness on Palpation (Michelle-wound No Skin Appearance) -Ulcer Cleansing Soap and Water -Foul Odor after Cleansing No 6-right lateral foot -Current Size (cm) - Length 0.5 -Current Size (cm) - Width 0.3 -Current Size (cm) - Depth 0.5 -Total Square Cm 0.15 -Photo Taken No -Exudate Amt Medium -Exudate Type Serosanguineous -Wound Margin Distinct, Outline Attached -Granulation Amt Large (67-100%) -Granulation Quality Red -Necrosis Amt Small (1-33%) -Necrotic Tissue Type Adherent Slough -Structure Exposed N/A -Texture (Michelle-wound Skin Appearance) Scarring -Moisture (Michelle-wound Skin Appearance) Dry/Scaly -Color (Michelle-wound Skin Appearance) Hemosiderin Staining -Temperature (Michelle-wound Skin No Abnormality Appearance) (Pt Warm) -Tenderness on Palpation (Michelle-wound No Skin Appearance) -Ulcer Cleansing Soap and Water -Foul Odor after Cleansing No -Anesthetic Used 4% Lidocaine Solution #4 R PLANTAR POST OP -Current Size (cm) - Length 0.1 -Current Size (cm) - Width 0.1 -Current Size (cm) - Depth 0.1 -Total Square Cm 0.01 -Photo Taken No -Exudate Amt None Present -Wound Margin Thickened -Granulation Amt Large (67-100%) -Granulation Quality Pale -Necrosis Amt None Present (0 %) -Structure Exposed N/A -Texture (Michelle-wound Skin Appearance) Callus,Scarring -Moisture (Michelle-wound Skin Appearance) Dry/Scaly -Color (Michelle-wound Skin Appearance) Hemosiderin Staining -Temperature (Michelle-wound Skin No Abnormality Appearance) (Pt Warm) -Tenderness on Palpation (Michelle-wound No Skin Appearance) -Ulcer Cleansing Soap and Water -Foul Odor after Cleansing No -Anesthetic Used 4% Lidocaine Solution Right Calf (cm) 47 Right Ankle (cm) 29 Assessment/Plan Assessment/Plan (1) Non-pressure chronic ulcer of other part of right foot with fat layer exposed: CODE(S): L97.512 - Non-pressure chronic ulcer of other part of right foot with fat layer exposed (2) Charcot arthropathy of midfoot: CODE(S): M14.679 - Charcot's joint, unspecified ankle and foot (3) Charcot's joint, right ankle and foot: CODE(S): M14.671 - Charcot's joint, right ankle and foot (4) Bilateral lower extremity edema: CODE(S): R60.0 - Localized edema (5) Tobacco abuse: CODE(S): Z72.0 - Tobacco use (6) Tobacco abuse counseling: CODE(S): Z71.6 - Tobacco abuse counseling (7) Chronic venous insufficiency: CODE(S): I87.2 - Venous insufficiency (chronic) (peripheral) (8) Type 2 diabetes mellitus with diabetic polyneuropathy: CODE(S): E11.42 - Type 2 diabetes mellitus with diabetic polyneuropathy QUALIFIERS: Diabetes mellitus adjunct faculty for medical terminology insulin use: unspecified adjunct faculty for medical terminology insulin use status Qualified Code(s): E11.42 - Type 2 diabetes mellitus with diabetic polyneuropathy (9) Type 2 diabetes mellitus: CODE(S): E11.9 - Type 2 diabetes mellitus without complications QUALIFIERS: Diabetes mellitus detention insulin use: without adjunct faculty for medical terminology use Diabetes mellitus complication status: with diabetic arthropathy Diabetes mellitus complication detail: with neuropathic arthropathy Qualified Code(s): E11.610 - Type 2 diabetes mellitus with diabetic neuropathic arthropathy (10) Venous insufficiency: CODE(S): I87.2 - Venous insufficiency (chronic) (peripheral) (11) Obese: CODE(S): E66.9 - Obesity, unspecified QUALIFIERS: Obesity type: due to excess calories Obesity classification: adult class 3 (BMI >= 40) Serious obesity comorbidity presence: with serious comorbidity Body mass index: BMI 40.0-44.9 Qualified Code(s): E66.01 - Morbid (severe) obesity due to excess calories; Z68.41 - Body mass index [BMI]40.0-44.9, adult (12) History of amputation of foot: CODE(S): Z89.439 - Acquired absence of unspecified foot QUALIFIERS: Laterality: right Qualified Code(s): Z89.431 - Acquired absence of right foot (13) Hypertension: CODE(S): I10 - Essential (primary) hypertension PLAN: This is a 50-year-old obese, diabetic male with a Charcot right foot deformity. He has had several toe amputations on the right foot, with only the first and third digit remaining. A noninvasive lower extremity arterial study was performed in July of this year, revealing no evidence of significant arterial occlusive disease. The patient, who is a known diabetic, is under the care of a local physician, Dr. Raymundo, who oversees and monitors the patient's diabetes mellitus. The patient has swelling and edema in his lower extremities. He has been advised to elevate his lower extremities as much as possible. He claims to sleep on a flat mattress at night. Leg elevation, even during daytime hours, has been encouraged. Leg elevation is to be to heart level, or higher. The patient is noted to be a smoker. Smoking has been discouraged. Counseling has been provided. With respect to the ulcerations on the right foot, he is currently using a [employer] walker and a scooter, for offloading purposes. Offloading measures have been strongly encouraged. We are to continue the use of Kesha to the ulcerations on the right foot. The patient has home health nursing care 3 times weekly, which will be continued. The patient is to follow- up in 1 week. However, due to the complexity of his podiatric foot problems, it has been recommended that he associate with a local speech language therapist. We will attempt to transition his care to a podiatric specialist. Until that happens, he will continue with weekly appointments under my care. It is noted that he was formerly a patient of Dr. Otoole, a podiatric specialist, who has left the community to establish practice elsewhere. Optimization of the patient's nutrition has been recommended, with the use of nutritional supplements as necessary. Total time: 29 minutes.
[2021-05-21 13:17] VITALS: BP 190/99; PULSE 99; RESP 18; TEMP 36.6; BMI 47.7
--- NOTE | 2021-05-21 16:11 | PN.PCM_ITS ---
History of Present Illness Date of Service: 05/21/21 Chief Complaint: Right foot plantar and lateral ulcers History of Wound: Patient is a 50-year-old male who presents to the wound care center for follow-up complicated right foot ulcers with history of Charcot and osteomyelitis. It is noted that he had a prior surgical debridement with Dr. Otoole on 01-15-21 including bone. He has recently been changing the dressing with Betadine and Douglas. He has been trying to keep weight off of this however it is very difficult. He does have a knee roller. Progress of Wound: improving Objective Data Objective Data Vital Signs: Vital Signs Temp Pulse Resp BP 98 F 99 18 190/99 H 05/21/21 13:17 05/21/21 13:17 05/21/21 13:17 05/21/21 13:17 Body Mass Index (BMI) 47.7 Physical Exam Narrative Const alert and oriented x3 General Appearance: cooperative HEENT normocephalic Extremity Extremity Narrative: No calf tenderness Diminished pulses Compartments remain soft to palpate right lower extremity General Extremity: edema especially to right lower extremity. No tenderness to palpation of joints or extremities; Negative for cyanosis. No gross laxity crepitus or pain with attempted passive manipulation of the midfoot at his prior Charcot site. Skin Skin Narrative: Ulceration noted to lateral right foot with plantar foot wound now fully epithelialized (healed). callous noted Lateral right foot ulceration has no purulence, no streaking, no erythema. Serosanguineous drainage noted from plantar foot. There is no malodor noted today General Skin Exam: Negative for erythema MSK Muscle wasting noted Charcot foot with rocker-bottom deformity and fourth and fifth ray resection right. Partial second toe amputation. Neuro Neuro Narrative: lack of normal epicritic sensation via light touch is consistent with neuropathy status Psych cooperative and affect normal Debridement Note Debridement Note Wound debrided: right foot Wound Grade/Stage: 1 Type of Debridement: Excisional debridement Anesthesia Used: 4% Lidocaine Solution Depth: in the subcutaneous layer Percentage of wound debrided: 100 Instrument Used: #15 blade Tissue Removed: fibrous, devitalized subcutaneous, biofilm, slough Severity: Fat Layer Exposed Amount of bleeding with debridement: Mild Bleeding Controlled with: Pressure Patient tolerated procedure: Patient tolerated procedure well Post-Debridement Measurements and Additional Note: Post-Debridement Measurements/Treatment WC - Nurse 1 - General Ulcer Assessment Start: 05/13/21 10:02 Freq: Status: Active Protocol: NIGEL Activity Type Activity Date Activity User E-Sign Co-Sign Detail Recorded Client Recorded Date Recorded By Document 05/13/21 10:03 DL [id number] 05/13/21 10:14 DL Document 05/21/21 13:17 RB [id number] 05/21/21 13:24 RB 05/13/21 05/21/21 10:03 13:17 WC - Today's Visit Information Type of service Follow-up Visit Follow-up Visit (Physician/HOME AND FAMILY LIVING PROFESSOR (Physician/HOME AND FAMILY LIVING PROFESSOR ) ) Arrival Mode Ambulatory, Ambulatory Walker Transfer Assistance None None Patient Identification Verified (Name & Yes ) Patient Requires Transmission-Based No No Precautions Finger Stick Blood Sugar(mg/dl) (if 117 indicated): Blood Sugar Stated by Patient Height and Weight Body Mass Index (BMI) 47.7 47.7 BMI Classification Obese Obese Vital Signs Temperature (97.8 F-99.1 F) 97.2 F L 98 F Temperature Source Temporal Temporal Pulse Rate (60-100) 95 99 Pulse Location Monitor Monitor Respiratory Rate (12-18) 22 H 18 Respiratory rate source Observation Observation Blood Pressure (90/60-120/80) 150/81 H 190/99 H Blood Pressure Mean (mm Hg) 104 129 Source Monitor Monitor Position Sitting Blood Pressure Location Left Arm History Since Last Visit- (Skip if this is Patient's initial visit) Have you changed medications since your No No last visit? Any new allergies or adverse reactions No No Had a fall/change in ADL's that may No No increase risk of falls Signs or symptoms of abuse and/or No No neglect since last visit Have you been in the hospital since your No No last visit? Has dressing in place as prescribed Yes Yes Has compression in place as prescribed Yes Yes Has offloadiing in place as prescribed No Experienced any changes in pain level or No No management Right Footwear No Footwear Pain Scale: 0-10 Numeric Is Patient Pain Free? Yes Yes - Nurse 1 - General Ulcer Measurement Start: 05/13/21 10:02 Freq: Status: Active Protocol: Activity Type Activity Date Activity User E-Sign Co-Sign Detail Recorded Client Recorded Date Recorded By Document 05/13/21 10:03 DL [id number] 05/13/21 10:14 DL Document 05/21/21 13:17 RB [id number] 05/21/21 13:24 RB 05/13/21 05/21/21 10:03 13:17 Wound Center Nurse 1 #7 R lat foot Inf -Combined with other wound No -Current Size (cm) - Length 0.3 0.2 -Current Size (cm) - Width 0.4 0.2 -Current Size (cm) - Depth 1.3 0.1 -Total Square Cm 0.12 0.04 -Photo Taken No -Tunneling No -Tunneling Position (O'clock) 3 -Tunneling Distance (cm) 2 -Undermining/Tunneling No -Circular Undermining No -Exudate Amt Medium Medium -Exudate Type Serosanguineous Serosanguineous -Wound Margin Distinct, Distinct, Outline Outline Attached Attached -Granulation Amt Small (1-33%) Medium (34-66%) -Granulation Quality [place] -Slough/Fibrin Yes -Necrosis Amt Small (1-33%) Small (1-33%) -Necrotic Tissue Type Adherent Slough Adherent Slough -Structure Exposed N/A N/A -Texture (Michelle-wound Skin Appearance) Localized Edema Assessed ,Scarring -Moisture (Michelle-wound Skin Appearance) No Abnormality Maceration -Color (Michelle-wound Skin Appearance) Hemosiderin Assessed Staining -Temperature (Michelle-wound Skin No Abnormality No Abnormality Appearance) (Pt Warm) (Pt Warm) -Tenderness on Palpation (Michelle-wound No No Skin Appearance) -Ulcer Cleansing Soap and Water Wound Cleanser -Foul Odor after Cleansing No No -Anesthetic Used 4% Lidocaine Solution 6-right lateral foot -Combined with other wound No -Current Size (cm) - Length 0.5 0.4 -Current Size (cm) - Width 0.3 0.3 -Current Size (cm) - Depth 0.5 1.5 -Total Square Cm 0.15 0.12 -Photo Taken No -Tunneling No -Undermining/Tunneling No -Circular Undermining No -Exudate Amt Medium Large -Exudate Type Serosanguineous Serosanguineous -Wound Margin Distinct, Distinct, Outline Outline Attached Attached -Granulation Amt Large (67-100%) Medium (34-66%) -Granulation Quality [place] -Slough/Fibrin Yes -Necrosis Amt Small (1-33%) Small (1-33%) -Necrotic Tissue Type Adherent Slough Adherent Slough -Structure Exposed N/A N/A -Texture (Michelle-wound Skin Appearance) Scarring Assessed -Moisture (Michelle-wound Skin Appearance) Dry/Scaly Maceration -Color (Michelle-wound Skin Appearance) Hemosiderin Assessed Staining -Temperature (Michelle-wound Skin No Abnormality No Abnormality Appearance) (Pt Warm) (Pt Warm) -Tenderness on Palpation (Michelle-wound No No Skin Appearance) -Ulcer Cleansing Soap and Water Wound Cleanser -Foul Odor after Cleansing No No -Anesthetic Used 4% Lidocaine 4% Lidocaine Solution Solution #4 R PLANTAR POST OP -Current Size (cm) - Length 0.1 -Current Size (cm) - Width 0.1 -Current Size (cm) - Depth 0.1 -Total Square Cm 0.01 -Photo Taken No -Exudate Amt None Present -Wound Margin Thickened -Granulation Amt Large (67-100%) -Granulation Quality Pale -Necrosis Amt None Present (0 %) -Structure Exposed N/A -Texture (Michelle-wound Skin Appearance) Callus,Scarring -Moisture (Michelle-wound Skin Appearance) Dry/Scaly -Color (Michelle-wound Skin Appearance) Hemosiderin Staining -Temperature (Michelle-wound Skin No Abnormality Appearance) (Pt Warm) -Tenderness on Palpation (Michelle-wound No Skin Appearance) -Ulcer Cleansing Soap and Water -Foul Odor after Cleansing No -Anesthetic Used 4% Lidocaine Solution Right Calf (cm) 47 Right Ankle (cm) 29 WC - Nurse 2 - General Ulcer CM Notes Start: 05/13/21 10:02 Freq: Status: Active Protocol: Activity Type Activity Date Activity User E-Sign Co-Sign Detail Recorded Client Recorded Date Recorded By Document 05/13/21 10:41 PL [id number] 05/13/21 10:45 PL Document 05/21/21 13:51 JERSON [id number] 05/21/21 13:59 JERSON 05/13/21 05/21/21 10:41 13:51 Wound Center Nurse 2 #7 R lat foot Inf -Time 10:20 13:52 -Correct Patient Yes No -Correct Side, Site, Position Yes No -Correct Procedure Yes No -Procedure Performed Yes No -Type of Procedure Debridement -Clinical Debridement Subcutaneous -Tissue Removed Subcutaneous -Post Debridement (cm) - Length 0.3 0 -Post Debridement (cm) - Width 0.4 0 -Post Debridement (cm) - Depth 1.3 0 -Total Square (Post) (cm) 0.12 0 -Area of Debridement (cm) - Length 0.3 0 -Area of Debridement (cm) - Width 0.4 0 -Total Square (Area) (cm) 0.12 0 -Tunneling No No -Undermining/Tunneling No No -Circular Undermining No No -Wound/Ulcer Outcome Not Healed Healed- Epithelialized -Ulcer Cleansing Rinsed/ Rinsed/ Irrigated with Irrigated with Saline Saline -Foul Odor after Cleansing No No -Bioengineered Tissue No No -Bleeding Controlled with Pressure Pressure -Offloading Yes -Type of Offloading Knee Walker -Treatment Response Procedure Procedure Tolerated Well Tolerated Well -Debridement - Subq, 1st 20sq cm Yes Yes 6-right lateral foot -Time 10:20 13:58 -Correct Patient Yes Yes -Correct Side, Site, Position Yes Yes -Correct Procedure Yes Yes -Procedure Performed Yes Yes -Type of Procedure Debridement Debridement -Clinical Debridement Subcutaneous Subcutaneous -Tissue Removed Subcutaneous Subcutaneous -Post Debridement (cm) - Length 0.5 0.4 -Post Debridement (cm) - Width 0.3 0.6 -Post Debridement (cm) - Depth 0.5 0.2 -Total Square (Post) (cm) 0.15 0.24 -Area of Debridement (cm) - Length 0.5 0.4 -Area of Debridement (cm) - Width 0.3 0.6 -Total Square (Area) (cm) 0.15 0.24 -Tunneling No No -Undermining/Tunneling No No -Circular Undermining No No -Wound/Ulcer Outcome Not Healed Not Healed -Ulcer Cleansing Rinsed/ Rinsed/ Irrigated with Irrigated with Saline Saline -Foul Odor after Cleansing No No -Bioengineered Tissue No No -Bleeding Controlled with Pressure Pressure -Offloading Yes -Type of Offloading Knee Walker -Treatment Response Procedure Tolerated Well -Debridement - Subq, 1st 20sq cm No Yes #4 R PLANTAR POST OP -Procedure Performed No -Wound/Ulcer Outcome Healed- Epithelialized Pain Scale: 0-10 Numeric Is Patient Pain Free? Yes WC - Nurse 3 - General Ulcer D/C NN Start: 05/13/21 10:02 Freq: Status: Active Protocol: Activity Type Activity Date Activity User E-Sign Co-Sign Detail Recorded Client Recorded Date Recorded By Document 05/13/21 10:53 MW [id number] 05/13/21 10:54 MW Document 05/21/21 14:18 RB [id number] 05/21/21 14:19 RB 05/13/21 05/21/21 10:53 14:18 Wound Care Nurse 3 #7 R lat foot Inf -Ulcer Cleansing Rinsed/ Irrigated with Saline -Foul Odor after Cleansing No -Negative Pressure Wound Therapy N/A -Primary Dressing Applied Promogran Douglas Matter -Primary Dressing Covered/Secured with Dry Gauze & Roll Gauze, Secured with Tape -Other Covering abd pad -Promogran Douglas Matter 1 6-right lateral foot -Ulcer Cleansing Rinsed/ Rinsed/ Irrigated with Irrigated with Saline Saline -Foul Odor after Cleansing No -Negative Pressure Wound Therapy N/A -Primary Dressing Applied Promogran Douglas Matter -Other Dressing douglas -Primary Dressing Covered/Secured with Dry Gauze & Dry Gauze,Dry Roll Gauze, Gauze & Roll Secured with Gauze,Secured Tape with Tape -Other Covering abd pad -Promogran Douglas Matter 1 Right -Tubular Bandage Double Layer -Size of Tubigrip Used Size E -Size E ($) 2 -Other ismael on top tubigrip Treatment Response Procedure Procedure Tolerated Well Tolerated Well Pain Scale: 0-10 Numeric Is Patient Pain Free? Yes Yes Teaching: Wound Center Dressing Your Wound -Person Taught Patient -Teaching Method Discussion, Demonstration -Response to teaching Verbalize understanding WC - Visit Discharge Discharge Condition Stable Stable Ambulatory Status Walker Ambulatory Transportation Private Auto taxi Medication Reconcilliation completed & No No provided to patient/care provider Clinical Summary of Care Provided Yes Yes Notes: knee walker Assessment/Plan Assessment/Plan (1) Chronic ulcer of right foot with necrosis of bone: CODE(S): L97.514 - Non-pressure chronic ulcer of other part of right foot with necrosis of bone (2) Non-pressure chronic ulcer of other part of right foot with fat layer exposed: CODE(S): L97.512 - Non-pressure chronic ulcer of other part of right foot with fat layer exposed (3) Type 2 diabetes mellitus with diabetic polyneuropathy: CODE(S): E11.42 - Type 2 diabetes mellitus with diabetic polyneuropathy QUALIFIERS: Diabetes mellitus long term acute care registered nurse insulin use: unspecified long term acute care registered nurse insulin use status Qualified Code(s): E11.42 - Type 2 diabetes mellitus with diabetic polyneuropathy (4) Osteomyelitis: CODE(S): M86.9 - Osteomyelitis, unspecified QUALIFIERS: Laterality: right Osteomyelitis location: foot Osteomyelitis type: other acute Qualified Code(s): M86.171 - Other acute osteomyelitis, right ankle and foot (5) Tobacco abuse: CODE(S): Z72.0 - Tobacco use (6) Venous insufficiency: CODE(S): I87.2 - Venous insufficiency (chronic) (peripheral) (7) Obese: CODE(S): E66.9 - Obesity, unspecified QUALIFIERS: Body mass index: BMI 40.0-44.9 Obesity classification: adult class 3 (BMI >= 40) Obesity type: due to excess calories Serious obesity comorbidity presence: with serious comorbidity Qualified Code(s): E66.01 - Morbid (severe) obesity due to excess calories; Z68.41 - Body mass index [BMI]40.0-44.9, adult (8) History of amputation of foot: CODE(S): Z89.439 - Acquired absence of unspecified foot QUALIFIERS: Laterality: right Qualified Code(s): Z89.431 - Acquired absence of right foot (9) Bilateral lower extremity edema: CODE(S): R60.0 - Localized edema (10) Cellulitis of right foot: CODE(S): L03.115 - Cellulitis of right lower limb (11) Charcot's joint, right ankle and foot: CODE(S): M14.671 - Charcot's joint, right ankle and foot PLAN: Patient seen and examined. Debridement was performed as noted in the clinical panel. Plantar ulcer is fully healed. Improvement is noted to the lateral foot ulcer. Dressing update: Change daily with [employer] Wash: Antibacterial soap and water. Avoid soaking. Prior bone culture was positive for OM 04/08/2021. Patient saw Dr Soto, infectious disease, who agreed with continued course of augmentin for 6 weeks. Culture 04/08/21 demonstrate MSSA, strep, and anaerobic cocci. Recent lab work was reviewed. XR taken 04/21/21 were reviewed which show midfoot changes concerning for osteomyelitis and charcot. When compared to XR on 01/22/21 there is more consolidation noted. There is concern for reactivation of his Charcot and osteomyelitis Updated diagnostic data includes x-ray: 3 nonweightbearing foot x-rays on 05-21-21 with some progressive radiolucency at his Charcot and superimposed osteomyelitis midfoot site. No significant change in foot position and he still appears to have a plantigrade foot. No soft tissue emphysema or foreign body. Patient to remain nonweightbearing to the right lower extremity. Use wheelchair or knee walker. Patient is noted to also have gotten an electric scooter in order to offload his foot He is at risk for further amputation of foot or leg. He has a [employer] walker ready at [employer] once healed. If he feels he can get his foot in there with a minimal dressing he can begin wearing this for offloading. To continue Betadine wet-to-dry quarter inch packing dressing changes to plantar wound and Douglas dressing changes to the lateral foot wound after foot is washed with soap and water. This to be changed every other day. This to be covered with dry sterile dressing. I recommend [place] for nutritional supplementation to optimize healing. All questions answered. To follow-up next week. Note: [employer] speech recognition manager storage software was used to create portions of this document. Sound-alike and misspelled words, as well as other manager storage errors may be contained in the documentation. The medical decision making level is limited based on data including the review of prior external notes, review of a prior test, or ordering a test. 20 minutes was spent on this encounter. This included face to face and non face to face care including preparing for the visit, reviewing the history, performing the exam, counseling and providing education to the patient, family, or caregiver, o rdering medications/test/ procedures if indicated as documented, communicating with other healthcare providers, documenting information in the medical record, interpreting / sharing this information when indicated as documented, and care coordination.
[2021-06-04 13:46] VITALS: BP 188/97; PULSE 101; RESP 18; TEMP 35.8; BMI 47.7
--- NOTE | 2021-06-04 14:44 | PN.PCM_ITS ---
History of Present Illness Date of Service: 06/04/21 Chief Complaint: Right foot lateral ulcer History of Wound: Patient is a 51-year-old male who presents to the wound care center for follow-up complicated right foot ulcers with history of Charcot and osteomyelitis. It is noted that he had a prior surgical debridement with Dr. Otoole on 01-15-21 including bone. He has recently been changing the dressing with Betadine and Douglas. He has been trying to keep weight off of this however it is very difficult. He does have a knee roller. He had his foot x-ray updated would like to go over the results. He denies redness or odor,fever, chills, nausea or vomiting. Progress of Wound: improving Objective Data Objective Data Vital Signs: Vital Signs Temp Pulse Resp BP 96.4 F L 101 H 18 188/97 H 06/04/21 13:46 06/04/21 13:46 06/04/21 13:46 06/04/21 13:46 Body Mass Index (BMI) 47.7 Physical Exam Narrative Const alert and oriented x3 General Appearance: cooperative HEENT normocephalic Extremity Extremity Narrative: No calf tenderness Diminished pulses Compartments remain soft to palpate right lower extremity General Extremity: edema especially to right lower extremity. No tenderness to palpation of joints or extremities; Negative for cyanosis. No gross laxity crepitus or pain with attempted passive manipulation of the midfoot at his prior Charcot site. Skin Skin Narrative: Lateral right foot ulceration has no purulence, no streaking, no erythema. reduced size noted Serosanguineous drainage noted from plantar foot. There is no malodor noted today General Skin Exam: Negative for erythema MSK Muscle wasting noted Charcot foot with rocker-bottom deformity and fourth and fifth ray resection right. Partial second toe amputation. Neuro Neuro Narrative: lack of normal epicritic sensation via light touch is consistent with neuropathy status Psych cooperative and affect normal Debridement Note Debridement Note Wound debrided: lateral right foot Wound Grade/Stage: 3 Type of Debridement: Excisional debridement Anesthesia Used: 4% Lidocaine Solution Depth: in the subcutaneous layer Percentage of wound debrided: 100 Instrument Used: #15 blade Tissue Removed: fibrous, devitalized subcutaneous, biofilm, slough Severity: Fat Layer Exposed Amount of bleeding with debridement: Mild Bleeding Controlled with: Pressure Patient tolerated procedure: Patient tolerated procedure well Post-Debridement Measurements and Additional Note: Post-Debridement Measurements/Treatment WC - Nurse 1 - General Ulcer Assessment Start: 05/13/21 10:02 Freq: Status: Active Protocol: NIGEL Activity Type Activity Date Activity User E-Sign Co-Sign Detail Recorded Client Recorded Date Recorded By Document 05/13/21 10:03 DL [id number] 05/13/21 10:14 DL Document 05/21/21 13:17 RB [id number] 05/21/21 13:24 RB Document 06/04/21 13:46 RB [id number] 06/04/21 13:50 RB 05/13/21 05/21/21 06/04/21 10:03 13:17 13:46 WC - Today's Visit Information Type of service Follow-up Visit Follow-up Visit Follow-up Visit (Physician/DRAFTER STRUCTURAL (Physician/DRAFTER STRUCTURAL (Physician/DRAFTER STRUCTURAL ) ) ) Arrival Mode Ambulatory, Ambulatory Ambulatory Walker Transfer Assistance None None None Patient Identification Verified (Name & Yes Yes ) Patient Requires Transmission-Based No No No Precautions Finger Stick Blood Sugar(mg/dl) (if 117 131 indicated): Blood Sugar Stated by Stated by Patient Patient Height and Weight Body Mass Index (BMI) 47.7 47.7 47.7 BMI Classification Obese Obese Obese Vital Signs Temperature (97.8 F-99.1 F) 97.2 F L 98 F 96.4 F L Temperature Source Temporal Temporal Temporal Pulse Rate (60-100) 95 99 101 H Pulse Location Monitor Monitor Monitor Respiratory Rate (12-18) 22 H 18 18 Respiratory rate source Observation Observation Observation Blood Pressure (90/60-120/80) 150/81 H 190/99 H 188/97 H Blood Pressure Mean (mm Hg) 104 129 127 Source Monitor Monitor Monitor Position Sitting Semi-Fowlers Blood Pressure Location Left Arm Left Arm History Since Last Visit- (Skip if this is Patient's initial visit) Have you changed medications since your No No No last visit? Any new allergies or adverse reactions No No No Had a fall/change in ADL's that may No No No increase risk of falls Signs or symptoms of abuse and/or No No No neglect since last visit Have you been in the hospital since your No No No last visit? Has dressing in place as prescribed Yes Yes Yes Has compression in place as prescribed Yes Yes No Has offloadiing in place as prescribed No No Experienced any changes in pain level or No No No management Left Footwear Regular Shoe Right Footwear No Footwear Regular Shoe Pain Scale: 0-10 Numeric Is Patient Pain Free? Yes Yes Yes WC - Nurse 1 - General Ulcer Measurement Start: 05/13/21 10:02 Freq: Status: Active Protocol: Activity Type Activity Date Activity User E-Sign Co-Sign Detail Recorded Client Recorded Date Recorded By Document 05/13/21 10:03 DL [id number] 05/13/21 10:14 DL Document 05/21/21 13:17 RB [id number] 05/21/21 13:24 RB Document 06/04/21 13:46 RB [id number] 06/04/21 13:50 RB 05/13/21 05/21/21 06/04/21 10:03 13:17 13:46 Wound Center Nurse 1 #7 R lat foot Inf -Combined with other wound No -Current Size (cm) - Length 0.3 0.2 -Current Size (cm) - Width 0.4 0.2 -Current Size (cm) - Depth 1.3 0.1 -Total Square Cm 0.12 0.04 -Photo Taken No -Tunneling No -Tunneling Position (O'clock) 3 -Tunneling Distance (cm) 2 -Undermining/Tunneling No -Circular Undermining No -Exudate Amt Medium Medium -Exudate Type Serosanguineous Serosanguineous -Wound Margin Distinct, Distinct, Outline Outline Attached Attached -Granulation Amt Small (1-33%) Medium (34-66%) -Granulation Quality [place] -Slough/Fibrin Yes -Necrosis Amt Small (1-33%) Small (1-33%) -Necrotic Tissue Type Adherent Slough Adherent Slough -Structure Exposed N/A N/A -Texture (Michelle-wound Skin Appearance) Localized Edema Assessed ,Scarring -Moisture (Michelle-wound Skin Appearance) No Abnormality Maceration -Color (Michelle-wound Skin Appearance) Hemosiderin Assessed Staining -Temperature (Michelle-wound Skin No Abnormality No Abnormality Appearance) (Pt Warm) (Pt Warm) -Tenderness on Palpation (Michelle-wound No No Skin Appearance) -Ulcer Cleansing Soap and Water Wound Cleanser -Foul Odor after Cleansing No No -Anesthetic Used 4% Lidocaine Solution 6-right lateral foot -Combined with other wound No No -Current Size (cm) - Length 0.5 0.4 0.8 -Current Size (cm) - Width 0.3 0.3 0.5 -Current Size (cm) - Depth 0.5 1.5 0.1 -Total Square Cm 0.15 0.12 0.40 -Photo Taken No No -Tunneling No No -Undermining/Tunneling No No -Circular Undermining No No -Exudate Amt Medium Large Medium -Exudate Type Serosanguineous Serosanguineous Serosanguineous -Wound Margin Distinct, Distinct, Flat & Intact Outline Outline Attached Attached -Granulation Amt Large (67-100%) Medium (34-66%) Medium (34-66%) -Granulation Quality [place] -Slough/Fibrin Yes Yes -Necrosis Amt Small (1-33%) Small (1-33%) Small (1-33%) -Necrotic Tissue Type Adherent Slough Adherent Slough Adherent Slough -Structure Exposed N/A N/A N/A -Texture (Michelle-wound Skin Appearance) Scarring Assessed Assessed, Scarring -Moisture (Michelle-wound Skin Appearance) Dry/Scaly Maceration Maceration -Color (Michelle-wound Skin Appearance) Hemosiderin Assessed Assessed Staining -Temperature (Michelle-wound Skin No Abnormality No Abnormality No Abnormality Appearance) (Pt Warm) (Pt Warm) (Pt Warm) -Tenderness on Palpation (Michelle-wound No No No Skin Appearance) -Ulcer Cleansing Soap and Water Wound Cleanser Wound Cleanser -Foul Odor after Cleansing No No No -Anesthetic Used 4% Lidocaine 4% Lidocaine 5% Lidocaine Solution Solution Gel #4 R PLANTAR POST OP -Current Size (cm) - Length 0.1 -Current Size (cm) - Width 0.1 -Current Size (cm) - Depth 0.1 -Total Square Cm 0.01 -Photo Taken No -Exudate Amt None Present -Wound Margin Thickened -Granulation Amt Large (67-100%) -Granulation Quality Pale -Necrosis Amt None Present (0 %) -Structure Exposed N/A -Texture (Michelle-wound Skin Appearance) Callus,Scarring -Moisture (Michelle-wound Skin Appearance) Dry/Scaly -Color (Michelle-wound Skin Appearance) Hemosiderin Staining -Temperature (Michelle-wound Skin No Abnormality Appearance) (Pt Warm) -Tenderness on Palpation (Michelle-wound No Skin Appearance) -Ulcer Cleansing Soap and Water -Foul Odor after Cleansing No -Anesthetic Used 4% Lidocaine Solution Right Calf (cm) 47 48.5 Right Ankle (cm) 29 30 WC - Nurse 2 - General Ulcer CM Notes Start: 05/13/21 10:02 Freq: Status: Active Protocol: Activity Type Activity Date Activity User E-Sign Co-Sign Detail Recorded Client Recorded Date Recorded By Document 05/13/21 10:41 PL [id number] 05/13/21 10:45 PL Document 05/21/21 13:51 JF [id number] 05/21/21 13:59 JF Edit Result 05/21/21 13:51 JF (1) [id number] 05/22/21 06:27 PL Document 06/04/21 14:05 JF [id number] 06/04/21 14:11 JF (1) 6-right lateral foot - Debridement - Subq, 1st 20sq cm Yes => No 05/13/21 05/21/21 06/04/21 10:41 13:51 14:05 Wound Center Nurse 2 #7 R lat foot Inf -Time 10:20 13:52 -Correct Patient Yes No -Correct Side, Site, Position Yes No -Correct Procedure Yes No -Procedure Performed Yes No -Type of Procedure Debridement -Clinical Debridement Subcutaneous -Tissue Removed Subcutaneous -Post Debridement (cm) - Length 0.3 0 -Post Debridement (cm) - Width 0.4 0 -Post Debridement (cm) - Depth 1.3 0 -Total Square (Post) (cm) 0.12 0 -Area of Debridement (cm) - Length 0.3 0 -Area of Debridement (cm) - Width 0.4 0 -Total Square (Area) (cm) 0.12 0 -Tunneling No No -Undermining/Tunneling No No -Circular Undermining No No -Wound/Ulcer Outcome Not Healed Healed- Epithelialized -Ulcer Cleansing Rinsed/ Rinsed/ Irrigated with Irrigated with Saline Saline -Foul Odor after Cleansing No No -Bioengineered Tissue No No -Bleeding Controlled with Pressure Pressure -Offloading Yes -Type of Offloading Knee Walker -Treatment Response Procedure Procedure Tolerated Well Tolerated Well -Debridement - Subq, 1st 20sq cm Yes Yes 6-right lateral foot -Time 10:20 13:58 14:05 -Correct Patient Yes Yes Yes -Correct Side, Site, Position Yes Yes Yes -Correct Procedure Yes Yes Yes -Procedure Performed Yes Yes Yes -Type of Procedure Debridement Debridement Debridement -Clinical Debridement Subcutaneous Subcutaneous Subcutaneous -Tissue Removed Subcutaneous Subcutaneous Subcutaneous -Post Debridement (cm) - Length 0.5 0.4 0.3 -Post Debridement (cm) - Width 0.3 0.6 0.3 -Post Debridement (cm) - Depth 0.5 0.2 1.0 -Total Square (Post) (cm) 0.15 0.24 0.09 -Area of Debridement (cm) - Length 0.5 0.4 0.3 -Area of Debridement (cm) - Width 0.3 0.6 0.3 -Total Square (Area) (cm) 0.15 0.24 0.09 -Tunneling No No No -Undermining/Tunneling No No No -Circular Undermining No No No -Wound/Ulcer Outcome Not Healed Not Healed Not Healed -Ulcer Cleansing Rinsed/ Rinsed/ Rinsed/ Irrigated with Irrigated with Irrigated with Saline Saline Saline -Foul Odor after Cleansing No No No -Bioengineered Tissue No No No -Bleeding Controlled with Pressure Pressure Pressure -Offloading Yes Yes -Type of Offloading Knee Walker Surgical Shoe -Treatment Response Procedure Procedure Tolerated Well Tolerated Well -Debridement - Subq, 1st 20sq cm No No Yes #4 R PLANTAR POST OP -Procedure Performed No -Wound/Ulcer Outcome Healed- Epithelialized Pain Scale: 0-10 Numeric Is Patient Pain Free? Yes Yes WC - Nurse 3 - General Ulcer D/C NN Start: 05/13/21 10:02 Freq: Status: Active Protocol: Activity Type Activity Date Activity User E-Sign Co-Sign Detail Recorded Client Recorded Date Recorded By Document 05/13/21 10:53 MW [id number] 05/13/21 10:54 MW Document 05/21/21 14:18 RB [id number] 05/21/21 14:19 RB Document 06/04/21 14:25 KR [id number] 06/04/21 14:26 KR 05/13/21 05/21/21 06/04/21 10:53 14:18 14:25 Wound Care Nurse 3 #7 R lat foot Inf -Ulcer Cleansing Rinsed/ Irrigated with Saline -Foul Odor after Cleansing No -Negative Pressure Wound Therapy N/A -Primary Dressing Applied Promogran Douglas Matter -Primary Dressing Covered/Secured with Dry Gauze & Roll Gauze, Secured with Tape -Other Covering abd pad -Promogran Douglas Matter 1 6-right lateral foot -Ulcer Cleansing Rinsed/ Rinsed/ Irrigated with Irrigated with Saline Saline -Foul Odor after Cleansing No -Negative Pressure Wound Therapy N/A -Primary Dressing Applied Promogran Promogran Douglas Matter Douglas Matter -Other Dressing douglas -Primary Dressing Covered/Secured with Dry Gauze & Dry Gauze,Dry Dry Gauze, Roll Gauze, Gauze & Roll Secured with Secured with Gauze,Secured Tape Tape with Tape -Other Covering abd pad -Promogran Douglas Matter 1 1 Right -Compression Wrap Jens Wrap -Tubular Bandage Double Layer -Size of Tubigrip Used Size E -Size E ($) 2 -Other jens on top tubigrip Treatment Response Procedure Procedure Tolerated Well Tolerated Well Pain Scale: 0-10 Numeric Is Patient Pain Free? Yes Yes Yes Teaching: Wound Center Dressing Your Wound -Person Taught Patient -Teaching Method Discussion, Demonstration -Response to teaching Verbalize understanding WC - Visit Discharge Discharge Condition Stable Stable Stable Ambulatory Status Walker Ambulatory Walker Transportation Private Auto taxi Private Auto Medication Reconcilliation completed & No No provided to patient/care provider Clinical Summary of Care Provided Yes Yes Notes: knee walker Assessment/Plan Assessment/Plan (1) Chronic ulcer of right foot with necrosis of bone: CODE(S): L97.514 - Non-pressure chronic ulcer of other part of right foot with necrosis of bone (2) Non-pressure chronic ulcer of other part of right foot with fat layer exposed: CODE(S): L97.512 - Non-pressure chronic ulcer of other part of right foot with fat layer exposed (3) Type 2 diabetes mellitus with diabetic polyneuropathy: CODE(S): E11.42 - Type 2 diabetes mellitus with diabetic polyneuropathy QUALIFIERS: Diabetes mellitus group home insulin use: unspecified long filler cigar roller machine insulin use status Qualified Code(s): E11.42 - Type 2 diabetes mellitus with diabetic polyneuropathy (4) Osteomyelitis: CODE(S): M86.9 - Osteomyelitis, unspecified QUALIFIERS: Osteomyelitis type: other acute Osteomyelitis location: foot Laterality: right Qualified Code(s): M86.171 - Other acute osteomyelitis, right ankle and foot (5) Tobacco abuse: CODE(S): Z72.0 - Tobacco use (6) Venous insufficiency: CODE(S): I87.2 - Venous insufficiency (chronic) (peripheral) (7) Obese: CODE(S): E66.9 - Obesity, unspecified QUALIFIERS: Obesity type: due to excess calories Obesity classification: adult class 3 (BMI >= 40) Serious obesity comorbidity presence: with serious comorbidity Body mass index: BMI 40.0-44.9 Qualified Code(s): E66.01 - Morbid (severe) obesity due to excess calories; Z68.41 - Body mass index [BMI]40.0-44.9, adult (8) History of amputation of foot: CODE(S): Z89.439 - Acquired absence of unspecified foot QUALIFIERS: Laterality: right Qualified Code(s): Z89.431 - Acquired absence of right foot (9) Bilateral lower extremity edema: CODE(S): R60.0 - Localized edema (10) Cellulitis of right foot: CODE(S): L03.115 - Cellulitis of right lower limb (11) Charcot's joint, right ankle and foot: CODE(S): M14.671 - Charcot's joint, right ankle and foot PLAN: Patient seen and examined. Debridement was performed as noted in the clinical panel. Plantar ulcer is fully healed. Improvement is noted to the lateral foot ulcer. Dressing update: Change daily with Aquacel Ag Wash: Antibacterial soap and water. Avoid soaking. Prior bone culture was positive for OM 04/08/2021. Patient saw Dr Soto, infectious disease, who agreed with continued course of augmentin for 6 weeks. Culture 04/08/21 demonstrate MSSA, strep, and anaerobic cocci. Recent lab work was reviewed. XR taken 04/21/21 were reviewed which show midfoot changes concerning for osteomyelitis and charcot. When compared to XR on 01/22/21 there is more consolidation noted. There is concern for reactivation of his Charcot and osteomyelitis Updated diagnostic data includes x-ray: 3 nonweightbearing foot x-rays on 05-28-21 with some progressive radiolucency at his Charcot and superimposed osteomyelitis midfoot site. No significant change in foot position and he still appears to have a plantigrade foot. No soft tissue emphysema or foreign body. Patient to remain nonweightbearing to the right lower extremity. Use wheelchair or knee walker. Patient is noted to also have gotten an electric scooter in order to offload his foot He is at risk for further amputation of foot or leg. He has a RAMONA walker ready at [facility] once healed. If he feels he can get his foot in there with a minimal dressing he can begin wearing this for offloading. To continue Betadine wet-to-dry quarter inch packing dressing changes to plantar wound and Douglas dressing changes to the lateral foot wound after foot is washed with soap and water. This to be changed every other day. This to be covered with dry sterile dressing. I recommend Glen for nutritional supplementation to optimize healing. All questions answered. To follow-up next week. Note: [employer] speech recognition precision farming coordinator software was used to create portio ns of this document. Sound-alike and misspelled words, as well as other precision farming coordinator errors may be contained in the documentation. The medical decision making level is limited based on data including the review of prior external notes, review of a prior test, or ordering a test. 20 minutes was spent on this encounter. This included face to face and non face to face care including preparing for the visit, reviewing the history, performing the exam, counseling and providing education to the patient, family, or caregiver, ordering medications/test/ procedures if indicated as documented, communicating with other healthcare providers, documenting information in the medical record, interpreting / sharing this information when indicated as documented, and care coordination.
== END 2021-06-10 23:59 ==
LOC: WC 14:30
PROVIDERS: PCP Internal Medicine; Referring Provider Podiatrist Foot & Ankle Surgery; Visit Provider Surgery
DX: E11.621 Type 2 diabetes mellitus with foot ulcer (principal); L97.514 Non-pressure chronic ulcer of other part of right foot with necrosis of bone; L97.512 Non-pressure chronic ulcer of other part of right foot with fat layer exposed; E11.42 Type 2 diabetes mellitus with diabetic polyneuropathy; M86.171 Other acute osteomyelitis, right ankle and foot; I87.2 Venous insufficiency (chronic) (peripheral); E66.9 Obesity, unspecified; Z68.41 Body mass index [BMI] 40.0-44.9, adult; L03.115 Cellulitis of right lower limb; M14.671 Charcot's joint, right ankle and foot; R60.0 Localized edema; E66.01 Morbid (severe) obesity due to excess calories; G47.33 Obstructive sleep apnea (adult) (pediatric); E11.69 Type 2 diabetes mellitus with other specified complication; I10 Essential (primary) hypertension; M19.90 Unspecified osteoarthritis, unspecified site; F17.210 Nicotine dependence, cigarettes, uncomplicated; Z79.01 Long term (current) use of anticoagulants; Z79.1 Long term (current) use of non-steroidal anti-inflammatories (NSAID); Z79.4 Long term (current) use of insulin
CPT/HCPCS: 11042

== ENCOUNTER 2021-06-18 13:15 | Outpatient (RCR) | payer MEDICAID, SELFPAY ==
[2021-06-11 00:29] VITALS: BP 188/97; PULSE 101; RESP 18; TEMP 35.8; BMI 47.7
[2021-06-18 13:08] VITALS: BP 196/95; PULSE 95; RESP 18; TEMP 36.3; BMI 47.7
--- NOTE | 2021-06-18 13:35 | PN.PCM_ITS ---
History of Present Illness Date of Service: 06/18/21 Chief Complaint: Right foot lateral ulcer History of Wound: Patient is a 51-year-old male who presents to the wound care center for follow-up complicated right foot ulcers with history of Charcot and osteomyelitis. It is noted that he had a prior surgical debridement with Dr. Otoole on 01-15-21 including bone. He has recently been changing the dressing with Betadine and Kesha. He has been trying to keep weight off of this however it is very difficult. He does have a knee roller. He had his foot x-ray updated would like to go over the results. He denies redness or odor,fever, chills, nausea or vomiting. He has a new wound to the side of his foot and is not sure how it happened. He relates he was walking around without his protective shoe on. Progress of Wound: Stable New ulcer Objective Data Objective Data Vital Signs: Vital Signs Temp Pulse Resp BP 97.3 F L 95 18 196/95 H 06/18/21 13:08 06/18/21 13:08 06/18/21 13:08 06/18/21 13:08 Oxygen Delivery Method Room Air Body Mass Index (BMI) 47.7 Physical Exam Narrative Const alert and oriented x3 General Appearance: cooperative HEENT normocephalic Extremity Extremity Narrative: No calf tenderness Diminished pulses Compartments remain soft to palpate right lower extremity General Extremity: edema especially to right lower extremity. No tenderness to palpation of joints or extremities; Negative for cyanosis. No gross laxity crepitus or pain with attempted passive manipulation of the midfoot at his prior Charcot site. Skin Skin Narrative: Lateral right foot ulceration has no purulence, no streaking, no erythema. reduced size noted Serosanguineous drainage noted from plantar foot. There is no malodor noted today New skin discontinuity lateral hindfoot granular base with minimal fibrous tissue. No purulence or odor on expression General Skin Exam: Negative for erythema MSK Muscle wasting noted Charcot foot with rocker-bottom deformity and fourth and fifth ray resection right. Partial second toe amputation. Neuro Neuro Narrative: lack of normal epicritic sensation via light touch is consistent with neuropathy status Psych cooperative and affect normal Debridement Note Debridement Note Wound debrided: Dorsal lateral right foot, lateral right hindfoot Wound Grade/Stage: 3, 1 Type of Debridement: Excisional debridement Anesthesia Used: 4% Lidocaine Solution Depth: in the subcutaneous layer Percentage of wound debrided: 100 Instrument Used: #15 blade Tissue Removed: fibrous, devitalized subcutaneous, biofilm, slough Severity: Fat Layer Exposed Amount of bleeding with debridement: Mild Bleeding Controlled with: Pressure Patient tolerated procedure: Patient tolerated procedure well Post-Debridement Measurements and Additional Note: Post-Debridement Measurements/Treatment WC - Nurse 1 - General Ulcer Assessment Start: 06/18/21 13:07 Freq: Status: Active Protocol: NIGEL Activity Type Activity Date Activity User E-Sign Co-Sign Detail Recorded Client Recorded Date Recorded By Document 06/18/21 13:08 [facility] [id number] 06/18/21 13:18 [facility] 06/18/21 13:08 WC - Today's Visit Information Type of service Follow-up Visit (Physician/BRADDISHER ) Arrival Mode Ambulatory, Walker Arrival Mode (Other) knee walker Transfer Assistance None Patient Identification Verified (Name & Yes ) Patient Requires Transmission-Based No Precautions Height and Weight Body Mass Index (BMI) 47.7 BMI Classification Obese Vital Signs Temperature (97.8 F-99.1 F) 97.3 F L Temperature Source Temporal Pulse Rate (60-100) 95 Pulse Location Monitor Respiratory Rate (12-18) 18 Respiratory rate source Observation Oxygen Delivery Method Room Air Blood Pressure (90/60-120/80) 196/95 H Blood Pressure Mean (mm Hg) 128 Source Monitor Position Supine Blood Pressure Location Right Forearm History Since Last Visit- (Skip if this is Patient's initial visit) Have you changed medications since your No last visit? Any new allergies or adverse reactions No Had a fall/change in ADL's that may No increase risk of falls Signs or symptoms of abuse and/or No neglect since last visit Have you been in the hospital since your No last visit? Has dressing in place as prescribed Yes Has compression in place as prescribed Yes Has offloadiing in place as prescribed Yes Experienced any changes in pain level or No management Left Footwear Regular Shoe Right Footwear Other Footwear (Comment) Other Footwear ismael to r foot, no shoe Pain Scale: 0-10 Numeric Is Patient Pain Free? Yes - Nurse 1 - General Ulcer Measurement Start: 06/18/21 13:07 Freq: Status: Active Protocol: Activity Type Activity Date Activity User E-Sign Co-Sign Detail Recorded Client Recorded Date Recorded By Document 06/18/21 13:08 [facility] [id number] 06/18/21 13:18 [facility] 06/18/21 13:08 Wound Center Nurse 1 #8- R LAT FOOT PROXIMAL -Combined with other wound No -Current Size (cm) - Length 1.4 -Current Size (cm) - Width 1.1 -Current Size (cm) - Depth 0.1 -Total Square Cm 1.54 -Date of Last Picture (Recall this 06/18/21 field) -Photo Taken Yes -Epithelialization None Present -Tunneling No -Undermining/Tunneling No -Circular Undermining No -Exudate Amt Medium -Exudate Type Serosanguineous -Wound Margin Distinct, Outline Attached -Granulation Amt Medium (34-66%) -Granulation Quality Hyper- granulation,Red -Slough/Fibrin Yes -Necrosis Amt Medium (34-66%) -Necrotic Tissue Type Adherent Slough -Texture (Michelle-wound Skin Appearance) Assessed, Localized Edema -Moisture (Michelle-wound Skin Appearance) Assessed -Color (Michelle-wound Skin Appearance) Assessed, Erythema -Temperature (Michelle-wound Skin No Abnormality Appearance) (Pt Warm) -Tenderness on Palpation (Michelle-wound No Skin Appearance) -Ulcer Cleansing Soap and Water -Foul Odor after Cleansing No -Anesthetic Used 5% Lidocaine Gel 6-right lateral foot -Combined with other wound No -Current Size (cm) - Length 0.3 -Current Size (cm) - Width 0.5 -Current Size (cm) - Depth 0.3 -Total Square Cm 0.15 -Photo Taken No -Epithelialization None Present -Tunneling No -Undermining/Tunneling No -Circular Undermining No -Exudate Amt Small -Exudate Type Serosanguineous -Wound Margin Distinct, Outline Attached -Granulation Amt Medium (34-66%) -Granulation Quality Pale -Slough/Fibrin Yes -Necrosis Amt Medium (34-66%) -Necrotic Tissue Type Adherent Slough -Texture (Michelle-wound Skin Appearance) Assessed, Fluctuance -Moisture (Michelle-wound Skin Appearance) Assessed -Color (Michelle-wound Skin Appearance) Assessed -Temperature (Michelle-wound Skin No Abnormality Appearance) (Pt Warm) -Tenderness on Palpation (Michelle-wound No Skin Appearance) -Ulcer Cleansing Soap and Water -Foul Odor after Cleansing No -Anesthetic Used 5% Lidocaine Gel Right Calf (cm) 48.8 Right Ankle (cm) 30.9 WC - Nurse 2 - General Ulcer CM Notes Start: 06/18/21 13:07 Freq: Status: Active Protocol: Activity Type Activity Date Activity User E-Sign Co-Sign Detail Recorded Client Recorded Date Recorded By Document 06/18/21 13:25 [id number] 06/18/21 13:29 JERSON 06/18/21 13:25 Wound Center Nurse 2 #8- R LAT FOOT PROXIMAL -Time 13:26 -Correct Patient Yes -Correct Side, Site, Position Yes -Correct Procedure Yes -Procedure Performed Yes -Type of Procedure Debridement -Clinical Debridement Subcutaneous -Tissue Removed Subcutaneous -Post Debridement (cm) - Length 1.5 -Post Debridement (cm) - Width 1.2 -Post Debridement (cm) - Depth 0.9 -Total Square (Post) (cm) 1.80 -Area of Debridement (cm) - Length 1.5 -Area of Debridement (cm) - Width 1.2 -Total Square (Area) (cm) 1.80 -Tunneling No -Undermining/Tunneling No -Circular Undermining No -Wound/Ulcer Outcome Not Healed -Ulcer Cleansing Rinsed/ Irrigated with Saline -Foul Odor after Cleansing No -Bioengineered Tissue No -Bleeding Controlled with Pressure -Offloading Yes -Type of Offloading Knee Walker -Treatment Response Procedure Tolerated Well -Debridement - Subq, 1st 20sq cm No 6-right lateral foot -Time 13:28 -Correct Patient Yes -Correct Side, Site, Position Yes -Correct Procedure Yes -Procedure Performed Yes -Type of Procedure Debridement -Clinical Debridement Subcutaneous -Tissue Removed Subcutaneous -Post Debridement (cm) - Length 0.3 -Post Debridement (cm) - Width 0.6 -Post Debridement (cm) - Depth 1.7 -Total Square (Post) (cm) 0.18 -Area of Debridement (cm) - Length 0.3 -Area of Debridement (cm) - Width 0.6 -Total Square (Area) (cm) 0.18 -Tunneling No -Undermining/Tunneling No -Circular Undermining No -Wound/Ulcer Outcome Not Healed -Ulcer Cleansing Rinsed/ Irrigated with Saline -Foul Odor after Cleansing No -Bioengineered Tissue No -Bleeding Controlled with Pressure -Offloading Yes -Type of Offloading Knee Walker -Treatment Response Procedure Tolerated Well -Debridement - Subq, 1st 20sq cm Yes Pain Scale: 0-10 Numeric Is Patient Pain Free? Yes Assessment/Plan Assessment/Plan (1) Chronic ulcer of right foot with necrosis of bone: CODE(S): L97.514 - Non-pressure chronic ulcer of other part of right foot with necrosis of bone (2) Non-pressure chronic ulcer of other part of right foot with fat layer exposed: CODE(S): L97.512 - Non-pressure chronic ulcer of other part of right foot with fat layer exposed (3) Type 2 diabetes mellitus with diabetic polyneuropathy: CODE(S): E11.42 - Type 2 diabetes mellitus with diabetic polyneuropathy QUALIFIERS: Diabetes mellitus care home insulin use: unspecified care home insulin use status Qualified Code(s): E11.42 - Type 2 diabetes mellitus with diabetic polyneuropathy (4) Osteomyelitis: CODE(S): M86.9 - Osteomyelitis, unspecified QUALIFIERS: Laterality: right Osteomyelitis location: foot Osteomyelitis type: other acute Qualified Code(s): M86.171 - Other acute osteomyelitis, right ankle and foot (5) Tobacco abuse: CODE(S): Z72.0 - Tobacco use (6) Venous insufficiency: CODE(S): I87.2 - Venous insufficiency (chronic) (peripheral) (7) Obese: CODE(S): E66.9 - Obesity, unspecified QUALIFIERS: Body mass index: BMI 40.0-44.9 Obesity classification: adult class 3 (BMI >= 40) Obesity type: due to excess calories Serious obesity comorbidity presence: with serious comorbidity Qualified Code(s): E66.01 - Morbid (severe) obesity due to excess calories; Z68.41 - Body mass index [BMI]40.0-44.9, adult (8) History of amputation of foot: CODE(S): Z89.439 - Acquired absence of unspecified foot QUALIFIERS: Laterality: right Qualified Code(s): Z89.431 - Acquired absence of right foot (9) Bilateral lower extremity edema: CODE(S): R60.0 - Localized edema (10) Cellulitis of right foot: CODE(S): L03.115 - Cellulitis of right lower limb (11) Charcot's joint, right ankle and foot: CODE(S): M14.671 - Charcot's joint, right ankle and foot PLAN: Patient seen and examined. Debridement was performed as noted in the clinical panel. Plantar ulcer is fully healed. Improvement is noted to the lateral foot ulcer. There is a new ulcer noted. Dressing update: Change daily with Aquacel Ag Wash: Antibacterial soap and water. Avoid soaking. Prior bone culture was positive for OM 04/08/2021. Patient saw Dr oSto, infectious disease, who agreed with continued course of augmentin for 6 weeks. Culture 04/08/21 demonstrate MSSA, strep, and anaerobic cocci. Recent lab work was reviewed. XR taken 04/21/21 were reviewed which show midfoot changes concerning for osteomyelitis and charcot. When compared to XR on 01/22/21 there is more consolidation noted. There is concern for reactivation of his Charcot and osteomyelitis Updated diagnostic data includes x-ray: 3 nonweightbearing foot x-rays on 05-28-21 with some progressive radiolucency at his Charcot and superimposed osteomyelitis midfoot site. No significant change in foot position and he still appears to have a plantigrade foot. No soft tissue emphysema or foreign body. Patient to remain nonweightbearing to the right lower extremity. Use wheelchair or knee walker. Patient is noted to also have gotten an electric scooter in order to offload his foot He is at risk for further amputation of foot or leg. He has a [place] walker ready at [facility] once healed. If he feels he can get his foot in there with a minimal dressing he can begin wearing this for offloading. To continue Betadine wet-to-dry quarter inch packing dressing changes to plantar wound and Kesha dressing changes to the lateral foot wound after foot is washed with soap and water. This to be changed every other day. This to be covered with dry sterile dressing. I recommend Glen for nutritional supplementation to optimize healing. All questions answered. To follow-up next week. Note: PHRQL speech recognition human resource manager software was used to create portions of this document. Sound-alike and misspelled words, as well as other human resource manager errors may be contained in the documentation. The medical decision making level is limited based on data including the review of prior external notes, review of a prior test, or ordering a test. 21 minutes was spent on this encounter. This included face to face and non face to face care including preparing for the visit, reviewing the history, performing the exam, counseling and providing education to the patient, family, or caregiver, ordering medications/test/ procedures if indicated as documented, communicating with other healthcare providers, documenting information in the medical record, interpreting / sharing this information when indicated as documented, and care coordination.
== END 2021-07-11 23:59 ==
LOC: WC 13:15
PROVIDERS: PCP Internal Medicine; Referring Provider Podiatrist Foot & Ankle Surgery; Visit Provider Podiatrist
DX: E11.621 Type 2 diabetes mellitus with foot ulcer (principal); L97.514 Non-pressure chronic ulcer of other part of right foot with necrosis of bone; E11.42 Type 2 diabetes mellitus with diabetic polyneuropathy; E66.01 Morbid (severe) obesity due to excess calories; I87.2 Venous insufficiency (chronic) (peripheral); Z68.41 Body mass index [BMI] 40.0-44.9, adult; Z79.4 Long term (current) use of insulin; M86.171 Other acute osteomyelitis, right ankle and foot; L03.115 Cellulitis of right lower limb; R60.0 Localized edema; M14.671 Charcot's joint, right ankle and foot; Z72.0 Tobacco use
CPT/HCPCS: 11042

== ENCOUNTER 2021-07-14 13:26 | Outpatient (CLI) | payer MEDICAID, SELFPAY | END 2021-07-14 23:59 | disposition home or self-care (01) | LOC: LABSPEC 13:27 | PROVIDERS: PCP Internal Medicine; Referring Provider Physician Assistant; Visit Provider Physician Assistant | DX: Z11.52 Encounter for screening for COVID-19 (principal) | CPT/HCPCS: 87635; U0003; U0005 ==

== ENCOUNTER 2021-07-25 10:19 | Emergency (ER) | payer MEDICAID, SELFPAY ==
[2021-07-25 10:20] VITALS: BP 165/103; PULSE 106; RESP 16; TEMP 36.3; O2SAT 98; BMI 41.1
--- NOTE | 2021-07-25 11:16 | EDS_ITS ---
HPI History of Present Illness Chief Complaint: Lower Extremity Injury Narrative Narrative: 51-year-old male with right foot pain. He states he has had history of problems with this foot and has had amputations. He is nonweightbearing on it currently and uses a scooter. He states the other day he fell and injured his foot. He states it hurts to walk on but he is usually nonweightbearing on this foot. Patient has not noted any redness or edema. He has not noticed any drainage. He has no systemic signs or symptoms such as fever or chills. [facility], [facility] Medical History Amputation of toe of left foot Cellulitis Charcot arthropathy of midfoot Chronic venous insufficiency DVT (deep venous thrombosis) History of esophageal disorder Hypertension KRYSTAL (obstructive sleep apnea) Osteoarthritis Tobacco abuse counseling Type 2 diabetes mellitus Venous insufficiency Home Medications metformin 1,000 mg PO BID 01/23/20 [History Last Taken 01/13/21] acetaminophen 650 mg PO Q6H PRN PRN tab 07/23/20 [Rx Last Taken Unknown] lisinopril 20 mg PO DAILY 10/29/20 [History Last Taken 01/13/21] sitagliptin 100 mg PO DAILY 10/29/20 [History Last Taken 01/13/21] apixaban 5 mg PO BID #60 tab.ds.pk 10/31/20 [Rx Last Taken 01/13/21 16:00] Handicap Placard #1 ea 12/05/20 [Rx Last Taken Unknown] Trulicity 3 mg SUBCUT TU 01/13/21 [History Last Taken 01/07/21] doxycycline monohydrate 100 mg PO BID #84 tab 01/21/21 [Rx Last Taken Unknown] oxycodone-acetaminophen 1 tab PO Q6H PRN PRN 3 Days #12 tablet 01/22/21 [Rx Last Taken Unknown] nicotine 21 mg/24 hr daily transdermal patch 1 patch TRANSDERMAL Q24H #28 ea 01/31/21 [Rx Last Taken Unknown] amoxicillin-pot clavulanate [Augmentin] 1 tab PO BID 14 Days #28 tab 04/08/21 [Rx Last Taken Unknown] Allergy/AdvReac Type Severity Reaction Status Date / Time ketorolac [From Toradol] AdvReac Upset Verified 07/25/21 10:57 Stomach NSAIDS (Non-Steroidal AdvReac Upset Verified 07/25/21 10:57 Anti-Inflamma Stomach Family History Mother Hypertension Diabetes Heart disease Sister Hypertension Diabetes Crohns disease Brother Diabetes Surgical History History of cholecystectomy History of esophageal surgery Status post amputation of right foot through metatarsal bone Social History Smoking Status: Current every day smoker tobacco type: cigarettes alcohol intake: never substance use type: does not use what type of physical activity do you participate in: walking frequency: daily ROS ROS ED Constitutional Constitutional ED: Denies chills or fever(s) Eyes Eyes: Denies blurry vision or diplopia ENT ENT ED: Denies rhinorrhea or sore throat Cardiovascular Cardiovascular: Denies chest pain or palpitations Respiratory/Chest Respiratory/Chest: Denies cough, dyspnea or sputum Gastrointestinal Gastrointestinal: Denies abdominal pain or nausea Genitourinary Genitourinary ED: Denies dysuria or hematuria Musculoskeletal Musculoskeletal: Denies arthralgias or myalgias Integumentary Denies abscess or rash Neurologic Neurologic: Denies headache(s) or weakness EXAM Physical Exam Const Vital Signs: 07/25/21 10:20 Temperature 97.3 F L Temperature Source Temporal Pulse Rate 106 H Respiratory Rate 16 Blood Pressure 165/103 H Blood Pressure Mean 123 Pulse Ox 98 Oxygen Delivery Method Room Air Positive well nourished General Appearance ED: NAD HEENT normocephalic and atraumatic Eyes PERRL Resp normal respiratory effort and clear to auscultation bilaterally Cardio regular rate and regular rhythm Extremity Extremity Narrative: Right foot status post amputation without any drainage or cellulitic change. There is tenderness over the lateral aspect of the foot. The foot is deformed from previous surgery. Neuro oriented x3 Sensorium / Orientation: alert Psych mental status grossly normal Skin no wounds Rashes: no rashes MDM MDM MDM Narrative Medical decision making narrative: Patient presenting with right foot pain. I obtained an x-ray and the foot appears stable on my interpretation. There is no new acute findings. Patient does not have any external signs of inflammation or infection. Patient requested an oxycodone in the ER and this was given. He is to follow-up with Dr. Ramos on Wednesday. Impression: 1. Right foot continue Radiography Diagnostic Testing: Clinical Impression(s) from Imaging Studies Foot X-Ray 07/25/21 11:18 IMPRESSION: Stable examination demonstrating Charcot''s deformity with diffuse soft tissue swelling. Electronically Signed: Jeronimo Gomez MD at 11:39 EST , Service support , Discharge Plan Triage Chief Complaint: Lower Extremity Injury ED Provider: Joe Bernal Dx/Rx/DC Orders Instructions: ED Foot Contusion Prescriptions: No Action (DME) Handananth French See Rx Instructions .ROUTE .MEDSUPPLY Qty: 1 RF: 0 nicotine 21 mg/24 hr patch 24 hour 1 patch transdermal Q24H Qty: 28 RF: 1 metformin 1,000 MG tablet 1,000 mg PO BID RF: 0 acetaminophen 325 MG tablet 650 mg PO Q6H PRN PRN (Reason: Pain Score 1-10/Temp > 100.7 F) RF: 0 lisinopril 20 MG tablet 20 mg PO DAILY RF: 0 sitagliptin 100 MG tablet 100 mg PO DAILY RF: 0 apixaban 5 MG tablets,dose pack 5 mg PO BID Qty: 60 RF: 1 Trulicity 3 mg/0.5 mL pen injector 3 mg SUBCUT TU RF: 0 doxycycline monohydrate 100 mg tablet 100 mg PO BID Qty: 84 RF: 0 oxycodone-acetaminophen [oxycodone-acetaminophen] 1 TABLET tablet 1 tab PO Q6H PRN PRN (Reason: Pain) 3 Days Qty: 12 RF: 0 amoxicillin-pot clavulanate [Augmentin] 1 EACH tablet 1 tab PO BID 14 Days Qty: 28 RF: 0 Primary Care Provider: Gavin Raymundo Referrals: Gavin Raymundo MD [Primary Care Provider] - Jesus Ramos DPM [STAFF PHYSICIAN] - As Needed Disposition Disposition: Home, Self Care Discharge Date/Time: 07/25/21 13:22
--- NOTE | 2021-07-25 11:18 | RAD_ITS ---
STUDY: X-RAY - RIGHT FOOT CLINICAL: Male, 51 years old. Pain TECHNIQUE: 3 view(s) of the foot. COMPARISON: Comparison is made with prior study dated #2020. FINDINGS: Once again, there is evidence of Charcot joints involving the tarsal bones as well as the metatarsophalangeal joints. The patient is status post amputation of the fourth and fifth metatarsals and phalanges. Partial destruction of the lateral navicular bone. Diffuse soft tissue swelling. Status post amputation of the middle and distal phalanges of the second toe. RAD/Foot min 3 Views IMPRESSION: Stable examination demonstrating Charcot''s deformity with diffuse soft tissue swelling. Electronically Signed: Jeronimo Gomez MD at 11:39 EST , Service support ,
[2021-07-25] MEDS: oxyCODONE 5 MG Tablet PO (13:21)
== END 2021-07-25 13:22 | disposition home or self-care (01) ==
PROVIDERS: Emergency Provider Student in an Organized Health Care Education/Training Program; PCP Internal Medicine; Visit Provider Student in an Organized Health Care Education/Training Program
DX: M79.671 Pain in right foot (principal); G47.33 Obstructive sleep apnea (adult) (pediatric); F17.210 Nicotine dependence, cigarettes, uncomplicated; Z86.718 Personal history of other venous thrombosis and embolism
CPT/HCPCS: 73630; 99283

== ENCOUNTER 2021-08-06 13:15 | Outpatient (RCR) | payer MEDICAID, SELFPAY ==
[2021-07-12 00:28] VITALS: BP 196/95; PULSE 95; RESP 18; TEMP 36.3; BMI 47.7
[2021-07-30 13:09] VITALS: BP 170/91; PULSE 117; RESP 22; TEMP 36.8; BMI 47.7
--- NOTE | 2021-07-30 14:50 | PN.PCM_ITS ---
History of Present Illness Date of Service: 07/30/21 Chief Complaint: Right foot lateral ulcer New ulcer to the bottom of the foot History of Wound: Patient is a 51-year-old male who presents to the wound care center for follow-up complicated right foot ulcers with history of Charcot and osteomyelitis. It is noted that he had a prior surgical debridement with Dr. Otoole on 01-15-21 including bone. He has been trying to keep weight off of this however it is very difficult especially this past week when he was out sick. He had to miss his appointment last week. He denies redness or odor, fever, chills, nausea or vomiting today. He relates his ulcer site has stopped draining anything since healed. He does have a new ulcer to the bottom of his foot. He does admit he was walking on it more when he was sick. He was even seen in the emergency room. The onset of this ulcer was July 25, 2021 in which he presented to the ER and saw Dr. Bernal. A foot xray was obtained. He denies odor or redness. Progress of Wound: Healed lateral right foot ulcer New plantar right foot ulcer Objective Data Objective Data Vital Signs: Vital Signs Temp Pulse Resp BP 98.3 F 117 H 22 H 170/91 H 07/30/21 13:09 07/30/21 13:09 07/30/21 13:09 07/30/21 13:09 Body Mass Index (BMI) 47.7 Physical Exam Narrative Const alert and oriented x3 General Appearance: cooperative HEENT normocephalic Extremity Extremity Narrative: No calf tenderness Diminished pulses Compartments remain soft to palpate right lower extremity General Extremity: edema especially to right lower extremity. No tenderness to palpation of joints or extremities; Negative for cyanosis. No gross laxity crepitus or pain with attempted passive manipulation of the midfoot at his prior Charcot site. Skin Skin Narrative: Lateral right foot ulceration is healed with full epithelialization Serosanguineous drainage noted from plantar foot. There is no malodor noted today. This is returned and it probes deep approximately 3 cm. Tissue is granular with devitalized adipose tissue. No direct probe to bone however this is very deep and I suspect this is communicating with his Charcot versus potential overlying osteocyte. General Skin Exam: Negative for erythema MSK Muscle wasting noted Charcot foot with rocker-bottom deformity and fourth and fifth ray resection right. Partial second toe amputation. Neuro Neuro Narrative: lack of normal epicritic sensation via light touch is consistent with neuropathy status Psych cooperative and affect normal Debridement Note Debridement Note Wound debrided: plantar right foot Wound Grade/Stage: 1 Type of Debridement: Excisional debridement Anesthesia Used: 4% Lidocaine Solution Depth: in the subcutaneous layer Percentage of wound debrided: 100 Instrument Used: #15 blade and - (ronguer) Tissue Removed: fibrous, devitalized subcutaneous, biofilm, slough Severity: Fat Layer Exposed Amount of bleeding with debridement: Mild Bleeding Controlled with: Pressure Patient tolerated procedure: Patient tolerated procedure well Post-Debridement Measurements and Additional Note: Post-Debridement Measurements/Treatment - Nurse 1 - General Ulcer Assessment Start: 07/30/21 13:09 Freq: Status: Active Protocol: NIGEL Activity Type Activity Date Activity User E-Sign Co-Sign Detail Recorded Client Recorded Date Recorded By Document 07/30/21 13:09 DL [id number] 07/30/21 13:17 DL 07/30/21 13:09 - Today's Visit Information Type of service Follow-up Visit (Physician/WOUND CARE SPECIALIST ) Arrival Mode Ambulatory, Walker Transfer Assistance None Patient Identification Verified (Name & Yes ) Finger Stick Blood Sugar(mg/dl) (if 134 indicated): Blood Sugar Stated by Patient Height and Weight Body Mass Index (BMI) 47.7 BMI Classification Obese Vital Signs Temperature (97.8 F-99.1 F) 98.3 F Temperature Source Temporal Pulse Rate (60-100) 117 H Pulse Location Monitor Respiratory Rate (12-18) 22 H Respiratory rate source Observation Blood Pressure (90/60-120/80) 170/91 H Blood Pressure Mean (mm Hg) 117 Source Monitor History Since Last Visit- (Skip if this is Patient's initial visit) Have you changed medications since your No last visit? Any new allergies or adverse reactions No Had a fall/change in ADL's that may No increase risk of falls Signs or symptoms of abuse and/or No neglect since last visit Have you been in the hospital since your No last visit? Has dressing in place as prescribed Yes Has compression in place as prescribed No Has offloadiing in place as prescribed Yes Experienced any changes in pain level or No management Right Footwear No Footwear Pain Scale: 0-10 Numeric Is Patient Pain Free? Yes - Nurse 1 - General Ulcer Measurement Start: 07/30/21 13:09 Freq: Status: Active Protocol: Activity Type Activity Date Activity User E-Sign Co-Sign Detail Recorded Client Recorded Date Recorded By Document 07/30/21 13:09 DL [id number] 07/30/21 13:17 DL 07/30/21 13:09 Wound Center Nurse 1 #9 R Plantar -Current Size (cm) - Length 1.5 -Current Size (cm) - Width 2.3 -Current Size (cm) - Depth 1.4 -Total Square Cm 3.45 -Photo Taken Yes -Exudate Amt Medium -Exudate Type Serosanguineous -Wound Margin Thickened -Granulation Amt Large (67-100%) -Granulation Quality Red -Necrosis Amt Small (1-33%) -Necrotic Tissue Type Adherent Slough -Structure Exposed N/A -Texture (Michelle-wound Skin Appearance) Localized Edema ,Scarring -Moisture (Michelle-wound Skin Appearance) Maceration -Color (Michelle-wound Skin Appearance) Hemosiderin Staining -Temperature (Michelle-wound Skin No Abnormality Appearance) (Pt Warm) -Tenderness on Palpation (Michelle-wound No Skin Appearance) -Ulcer Cleansing Soap and Water -Foul Odor after Cleansing No -Anesthetic Used 4% Lidocaine Solution #8- R LAT FOOT PROXIMAL -Photo Taken No -Exudate Amt Medium -Exudate Type Serosanguineous -Wound Margin Distinct, Outline Attached -Granulation Amt Large (67-100%) -Granulation Quality Red -Necrosis Amt Small (1-33%) -Necrotic Tissue Type Adherent Slough -Structure Exposed N/A -Texture (Michelle-wound Skin Appearance) Localized Edema ,Scarring -Moisture (Michelle-wound Skin Appearance) Maceration -Color (Michelle-wound Skin Appearance) Hemosiderin Staining -Temperature (Michelle-wound Skin No Abnormality Appearance) (Pt Warm) -Tenderness on Palpation (Michelle-wound No Skin Appearance) -Ulcer Cleansing Soap and Water -Foul Odor after Cleansing No -Anesthetic Used 4% Lidocaine Solution SANDEEP - Nurse 2 - General Ulcer CM Notes Start: 07/30/21 13:09 Freq: Status: Active Protocol: Activity Type Activity Date Activity User E-Sign Co-Sign Detail Recorded Client Recorded Date Recorded By Document 07/30/21 13:26 [id number] 07/30/21 13:32 07/30/21 13:26 Wound Center Nurse 2 #9 R Plantar -Time 13:27 -Correct Patient Yes -Correct Side, Site, Position Yes -Correct Procedure Yes -Procedure Performed Yes -Type of Procedure Incision & Drainage -Clinical Debridement Subcutaneous -Tissue Removed Subcutaneous -Post Debridement (cm) - Length 1.4 -Post Debridement (cm) - Width 2.0 -Post Debridement (cm) - Depth 3.0 -Total Square (Post) (cm) 2.80 -Area of Debridement (cm) - Length 1.4 -Area of Debridement (cm) - Width 2.0 -Total Square (Area) (cm) 2.80 -Tunneling No -Undermining/Tunneling No -Circular Undermining No -Wound/Ulcer Outcome Not Healed -Ulcer Cleansing Rinsed/ Irrigated with Saline -Foul Odor after Cleansing No -Bioengineered Tissue No -Bleeding Controlled with Pressure -Offloading Yes -Type of Offloading Knee Walker -Treatment Response Procedure Not Tolerated Well -Debridement - Subq, 1st 20sq cm Yes Pain Scale: 0-10 Numeric Is Patient Pain Free? Yes - Nurse 3 - General Ulcer D/C NN Start: 07/30/21 13:09 Freq: Status: Active Protocol: Activity Type Activity Date Activity User E-Sign Co-Sign Detail Recorded Client Recorded Date Recorded By Document 07/30/21 13:40 DL [id number] 07/30/21 13:41 DL 07/30/21 13:40 Wound Care Nurse 3 #9 R Plantar -Ulcer Cleansing Soap and Water -Foul Odor after Cleansing No -Other Dressing Betadine -Primary Dressing Covered/Secured with Dry Gauze & Roll Gauze, Secured with Tape -Other Covering ABD Right -Compression Wrap Jens Wrap Treatment Response Procedure Tolerated Well Pain Scale: 0-10 Numeric Is Patient Pain Free? Yes - Visit Discharge Discharge Condition Stable Ambulatory Status Ambulatory, Walker Transportation Private Auto Facility Type Home Health Orders Sent Yes Assessment/Plan Assessment/Plan (1) Chronic ulcer of right foot with necrosis of bone: CODE(S): L97.514 - Non-pressure chronic ulcer of other part of right foot with necrosis of bone (2) Non-pressure chronic ulcer of other part of right foot with fat layer exposed: CODE(S): L97.512 - Non-pressure chronic ulcer of other part of right foot with fat layer exposed (3) Type 2 diabetes mellitus with diabetic polyneuropathy: CODE(S): E11.42 - Type 2 diabetes mellitus with diabetic polyneuropathy QUALIFIERS: Diabetes mellitus mcfp insulin use: unspecified 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 Qualified Code(s): E11.42 - Type 2 diabetes mellitus with diabetic polyneuropathy (4) Osteomyelitis: CODE(S): M86.9 - Osteomyelitis, unspecified QUALIFIERS: Osteomyelitis type: other acute Osteomyelitis location: foot Laterality: right Qualified Code(s): M86.171 - Other acute osteomyelitis, right ankle and foot (5) Tobacco abuse: CODE(S): Z72.0 - Tobacco use (6) Venous insufficiency: CODE(S): I87.2 - Venous insufficiency (chronic) (peripheral) (7) Obese: CODE(S): E66.9 - Obesity, unspecified QUALIFIERS: Obesity type: due to excess calories Obesity classification: adult class 3 (BMI >= 40) Serious obesity comorbidity presence: with serious comorbidity Body mass index: BMI 40.0-44.9 Qualified Code(s): E66.01 - Morbid (severe) obesity due to excess calories; Z68.41 - Body mass index [BMI]40.0-44.9, adult (8) History of amputation of foot: CODE(S): Z89.439 - Acquired absence of unspecified foot QUALIFIERS: Laterality: right Qualified Code(s): Z89.431 - Acquired absence of right foot (9) Bilateral lower extremity edema: CODE(S): R60.0 - Localized edema (10) Cellulitis of right foot: CODE(S): L03.115 - Cellulitis of right lower limb (11) Charcot's joint, right ankle and foot: CODE(S): M14.671 - Charcot's joint, right ankle and foot PLAN: Patient seen and examined. Debridement was performed as noted in the clinical panel. The dorsal lateral right foot ulcer is now fully healed. The plantar ulcer has returned with significant depth. Dressing update: Betadine wet-to-dry gauze packing Wash: Antibacterial soap and water. Avoid soaking. Prior bone culture was positive for OM 04/08/2021. Patient saw Dr Soto, infectious disease, who agreed with continued course of augmentin for 6 weeks. Culture 04/08/21 demonstrate MSSA, strep, and anaerobic cocci. Recent lab work was reviewed. XR taken 04/21/21 were reviewed which show midfoot changes concerning for osteomyelitis and charcot. When compared to XR on 01/22/21 there is more consolidation noted. There is concern for reactivation of his Charcot and osteomyelitis. Now there is a status change today with increased and returned right plantar foot ulcer site. After subcutaneous excisional debridement and saline irrigation was performed a deep wound culture was obtained for aerobic, anaerobic, acid-fast, fungal and MRSA PCR. His x-rays were reviewed from his recent emergency room visit on 07-25-2021 (saw Dr. Bernal) which demonstrated relatively unchanged Charcot of the midfoot without soft tissue emphysema foreign body or additional subluxation. I recommend updating his labs and these were ordered including CBC, CMP, ESR, C-reactive protein. I am certainly concerned of deep tissue involvement including acute on chronic osteomyelitis. There are no local signs of infection or systemic illness today. It is noted he was afebrile and his vital signs are stable while he was in the emergency room also. He may be candidate for antibiotics and I will follow his culture results closely to make this decision. He was advised to report to the emergency room if he develops purulence or local infection or systemic illness signs. Patient to remain nonweightbearing to the right lower extremity. Use wheelchair or knee walker. Patient is noted to also have gotten an electric scooter in order to offload his foot He is at risk for further amputation of foot or leg. He has a [employer] walker ready at [facility] [employer] once healed. If he feels he can get his foot in there with a minimal dressing he can begin wearing this for offloading. I recommend Glen for nutritional supplementation to optimize healing. All questions answered. To follow-up next week. Note: [employer] speech recognition customer management specialist software was used to create portions of this document. Sound-alike and misspelled words, as well as other customer management specialist errors may be contained in the documentation. The medical decision making level is moderate based on data including at least three of the following: review of prior external notes, review of a test, ordering a test, assessment requiring an independent historian. The medical decision making level is moderate. There is noted moderate risk of morbidity after considering this treatment plan and diagnostic data. Considerations were given to prescription management, decisions regarding surgical options, or social determinants of health. The problems addressed require a moderate decision making level which includes one or more chronic illnesses (w/ exacerbation, progression, or side effects), two or more stable chronic illnesses, one undiagnosed new problem w/ uncertain prognosis, one acute illness with systemic symptoms, or one acute complicated injury.
[2021-07-30 18:05] LABS: M R Staph aureus DNA By PCR POSITIVE (Negative); Probe Check PASS; Staph aureus DNA By PCR POSITIVE (Negative)
[2021-08-06 13:09] VITALS: BP 159/86; PULSE 100; RESP 16; TEMP 36.1; BMI 47.7
[2021-08-06 14:58] LABS: Absolute Lymphocyte Count 1.38 X10^3/uL (0.83-4.51); Absolute Neutrophil Count 5.2 X10^3/uL (2.0-7.7); Basophil# 0.05 X10^3/uL; Basophil% 0.7 % (0-1); Eosinophils% 2.6 % (0-5); Hematocrit 45.1 % (40-54); Hemoglobin 14.2 g/dL (13.0-16.5); Lymphocyte # 1.38 X10^3/ul (0.83-4.51); Lymphocyte % 18.1 % (19-41); Mean Corp Hgb Conc 31.5 g/dL (32-36); Mean Corpuscular Hgb 25.1 pg (27.0-32.0); Mean Corpuscular Volume 79.8 fL (80-94); Mean Platelet Vol. 12.8 fl (6.2-12.0); Monocyte# 0.71 X10^3/uL; Monocyte% 9.3 % (0-10); NRBC Flagged by Analyzer 0 % (0-5); Neutrophil # 5.24 X10^3/uL (2.7-7.7); Neutrophil % 68.6 % (47-70); POSITIVE COUNT YES; Platelet Count 95 K/mm3 (150-450); RBC Distribution Width CV 16.6 % (11.6-14.6); RBC Distribution Width SD 46.6 fl (35.1-43.9); Red Blood Count 5.65 M/mm3 (4.6-6.2); White Blood Count 7.6 K/mm3 (4.4-11.0)
[2021-08-06 15:04] LABS: Differential Indicated SCAN CRITERIA MET
[2021-08-06 15:18] LABS: Erythrocyte Sedimentation Rate 66 mm/hr (0-20)
[2021-08-06 15:23] LABS: Platelet Estimate MOD DEC (ADEQ)
--- NOTE | 2021-08-06 16:37 | PCM.WC.PN ---
History of Present Illness Date of Service: 08/06/21 Chief Complaint: right ulcer to the bottom of the foot History of Wound: Patient is a 51-year-old male who presents to the wound care center for follow-up complicated right foot ulcers with history of Charcot and osteomyelitis. It is noted that he had a prior surgical debridement with Dr. Otoole on 01-15-21 including bone. He has been trying to keep weight off of this however it is very difficult especially this past week when he was out sick. He had to miss his appointment last week. He denies redness or odor, fever, chills, nausea or vomiting today. He relates his ulcer site has stopped draining anything since healed. He does have a new ulcer to the bottom of his foot. He does admit he was walking on it more when he was sick. He was even seen in the emergency room. The onset of this ulcer was July 25, 2021 in which he presented to the ER and saw Dr. Bernal. A foot xray was obtained. He denies odor or redness. Progress of Wound: Healed lateral right foot ulcer New plantar right foot ulcer Objective Data Objective Data Vital Signs: Vital Signs Temp Pulse Resp BP 97 F L 100 16 159/86 H 08/06/21 13:09 08/06/21 13:09 08/06/21 13:09 08/06/21 13:09 Oxygen Delivery Method Room Air Body Mass Index (BMI) 47.7 Lab / Micro Data Result Diagrams: 08/06/21 13:52 08/06/21 13:52 Labs: Laboratory Results - last 24 hr 08/06/21 13:52: WBC 7.6, RBC 5.65, Hgb 14.2, Hct 45.1, MCV 79.8 L, MCH 25.1 L, MCHC 31.5 L, RDW Std Deviation 46.6 H, RDW Coeff of Maria Fernanda 16.6 H, Plt Count 95 L, MPV 12.8 H, Immature Gran % (Auto) 0.700, Neut % (Auto) 68.6, Lymph % (Auto) 18.1 L, [place] % (Auto) 9.3, Eos % (Auto) 2.6, Baso % (Auto) 0.7, Absolute Neuts (auto) 5.2, Absolute Lymphs (auto) 1.38, Nucleated RBC % 0, Platelet Estimate MOD DEC, ESR 66 H Micro: Microbiology 07/30/21 13:24 Tissue - Plantar Gram Stain - Final 07/30/21 13:24 Tissue - Plantar Wound Culture - Final Meth. resistant Staph. aureus 07/30/21 13:24 Tissue - Plantar Anaerobic Culture - Final No anaerobic bacteria isolated. Physical Exam Narrative Const alert and oriented x3 General Appearance: cooperative HEENT normocephalic Extremity Extremity Narrative: No calf tenderness Diminished pulses Compartments remain soft to palpate right lower extremity General Extremity: edema especially to right lower extremity. No tenderness to palpation of joints or extremities; Negative for cyanosis. No gross laxity crepitus or pain with attempted passive manipulation of the midfoot at his prior Charcot site. Skin Skin Narrative: Lateral right foot ulceration is healed with full epithelialization Serosanguineous drainage noted from plantar foot. There is no malodor noted today. This is returned and it probes deep approximately 2.9 cm. Tissue is granular with devitalized adipose tissue. No direct probe to bone however this is very deep and I suspect this is communicating with his Charcot versus potential overlying osteomyelitis General Skin Exam: Negative for erythema MSK Muscle wasting noted Charcot foot with rocker-bottom deformity and fourth and fifth ray resection right. Partial second toe amputation. Neuro Neuro Narrative: lack of normal epicritic sensation via light touch is consistent with neuropathy status Psych cooperative and affect normal Debridement Note Debridement Note Wound debrided: plantar right foot Wound Grade/Stage: 3 suspected Type of Debridement: Excisional debridement Anesthesia Used: 4% Lidocaine Solution Depth: in the subcutaneous layer Percentage of wound debrided: 100 Instrument Used: #15 blade Tissue Removed: fibrous, devitalized subcutaneous, biofilm, slough Severity: Fat Layer Exposed Amount of bleeding with debridement: Mild Bleeding Controlled with: Pressure Patient tolerated procedure: Patient tolerated procedure well Post-Debridement Measurements and Additional Note: Post-Debridement Measurements/Treatment WC - Nurse 1 - General Ulcer Assessment Start: 07/30/21 13:09 Freq: Status: Active Protocol: NIGEL Activity Type Activity Date Activity User E-Sign Co-Sign Detail Recorded Client Recorded Date Recorded By Document 07/30/21 13:09 DL [id number] 07/30/21 13:17 DL Document 08/06/21 13:09 BMF [id number] 08/06/21 13:14 [facility] 07/30/21 08/06/21 13:09 13:09 WC - Today's Visit Information Type of service Follow-up Visit Follow-up Visit (Physician/PADDED BOX SEWER (Physician/PADDED BOX SEWER ) ) Arrival Mode Ambulatory, Ambulatory, Walker Walker Arrival Mode (Other) knee walker Transfer Assistance None None Patient Identification Verified (Name & Yes No ) Finger Stick Blood Sugar(mg/dl) (if 134 143 indicated): Blood Sugar Stated by Stated by Patient Patient Height and Weight Body Mass Index (BMI) 47.7 47.7 BMI Classification Obese Obese Vital Signs Temperature (97.8 F-99.1 F) 98.3 F 97 F L Temperature Source Temporal Temporal Pulse Rate (60-100) 117 H 100 Pulse Location Monitor Monitor Respiratory Rate (12-18) 22 H 16 Respiratory rate source Observation Observation Oxygen Delivery Method Room Air Blood Pressure (90/60-120/80) 170/91 H 159/86 H Blood Pressure Mean (mm Hg) 117 110 Source Monitor Monitor Position Sitting Blood Pressure Location Right Arm Comment counseled pt on bp History Since Last Visit- (Skip if this is Patient's initial visit) Have you changed medications since your No No last visit? Any new allergies or adverse reactions No No Had a fall/change in ADL's that may No No increase risk of falls Signs or symptoms of abuse and/or No No neglect since last visit Have you been in the hospital since your No No last visit? Has dressing in place as prescribed Yes Yes Has compression in place as prescribed No No Has offloadiing in place as prescribed Yes Yes Experienced any changes in pain level or No No management Left Footwear Regular Shoe Right Footwear No Footwear Other Footwear (Comment) Other Footwear sock to rle Pain Scale: 0-10 Numeric Is Patient Pain Free? Yes Yes - Nurse 1 - General Ulcer Measurement Start: 07/30/21 13:09 Freq: Status: Active Protocol: Activity Type Activity Date Activity User E-Sign Co-Sign Detail Recorded Client Recorded Date Recorded By Document 07/30/21 13:09 DL [id number] 07/30/21 13:17 DL Document 08/06/21 13:09 [facility] [id number] 08/06/21 13:14 [facility] 07/30/21 08/06/21 13:09 13:09 Wound Center Nurse 1 #9 R Plantar -Combined with other wound No -Current Size (cm) - Length 1.5 0.7 -Current Size (cm) - Width 2.3 1.5 -Current Size (cm) - Depth 1.4 3 -Total Square Cm 3.45 1.05 -Photo Taken Yes No -Epithelialization None Present -Tunneling No -Undermining/Tunneling Yes -Undermining/Tunneling Starts (O'clock 9 ) -Undermining/Tunneling Ends (O'clock) 10 -Maximum Distance (cm) 3 -Exudate Amt Medium Medium -Exudate Type Serosanguineous Serosanguineous -Wound Margin Thickened Distinct, Outline Attached -Granulation Amt Large (67-100%) Large (67-100%) -Granulation Quality Red Red -Slough/Fibrin Yes -Necrosis Amt Small (1-33%) Small (1-33%) -Necrotic Tissue Type Adherent Slough Adherent Slough -Structure Exposed N/A -Texture (Michelle-wound Skin Appearance) Localized Edema Assessed, ,Scarring Scarring -Moisture (Michelle-wound Skin Appearance) Maceration Assessed,Dry/ Scaly -Color (Michelle-wound Skin Appearance) Hemosiderin Assessed Staining -Temperature (Michelle-wound Skin No Abnormality No Abnormality Appearance) (Pt Warm) (Pt Warm) -Tenderness on Palpation (Michelle-wound No No Skin Appearance) -Ulcer Cleansing Soap and Water Soap and Water -Foul Odor after Cleansing No No -Anesthetic Used 4% Lidocaine 5% Lidocaine Solution Gel #8- R LAT FOOT PROXIMAL -Photo Taken No -Exudate Amt Medium -Exudate Type Serosanguineous -Wound Margin Distinct, Outline Attached -Granulation Amt Large (67-100%) -Granulation Quality Red -Necrosis Amt Small (1-33%) -Necrotic Tissue Type Adherent Slough -Structure Exposed N/A -Texture (Michelle-wound Skin Appearance) Localized Edema ,Scarring -Moisture (Michelle-wound Skin Appearance) Maceration -Color (Michelle-wound Skin Appearance) Hemosiderin Staining -Temperature (Michelle-wound Skin No Abnormality Appearance) (Pt Warm) -Tenderness on Palpation (Michelle-wound No Skin Appearance) -Ulcer Cleansing Soap and Water -Foul Odor after Cleansing No -Anesthetic Used 4% Lidocaine Solution Lower Limb Edema Present Yes Right Calf (cm) 45.5 Right Ankle (cm) 31.4 WC - Nurse 2 - General Ulcer CM Notes Start: 07/30/21 13:09 Freq: Status: Active Protocol: Activity Type Activity Date Activity User E-Sign Co-Sign Detail Recorded Client Recorded Date Recorded By Document 07/30/21 13:26 [id number] 07/30/21 13:32 JF Document 08/06/21 13:46 [id number] 08/06/21 13:47 07/30/21 08/06/21 13:26 13:46 Wound Center Nurse 2 #9 R Plantar -Time 13:27 13:46 -Correct Patient Yes Yes -Correct Side, Site, Position Yes Yes -Correct Procedure Yes Yes -Procedure Performed Yes Yes -Type of Procedure Incision & Debridement Drainage -Clinical Debridement Subcutaneous Subcutaneous -Tissue Removed Subcutaneous Subcutaneous -Post Debridement (cm) - Length 1.4 0.8 -Post Debridement (cm) - Width 2.0 1.5 -Post Debridement (cm) - Depth 3.0 2.9 -Total Square (Post) (cm) 2.80 1.20 -Area of Debridement (cm) - Length 1.4 0.8 -Area of Debridement (cm) - Width 2.0 1.5 -Total Square (Area) (cm) 2.80 1.20 -Tunneling No No -Undermining/Tunneling No No -Circular Undermining No No -Wound/Ulcer Outcome Not Healed Not Healed -Ulcer Cleansing Rinsed/ Rinsed/ Irrigated with Irrigated with Saline Saline -Foul Odor after Cleansing No No -Bioengineered Tissue No No -Bleeding Controlled with Pressure Pressure -Offloading Yes -Type of Offloading Knee Walker Total Contact Cast (TCC) - Left ($) -Treatment Response Procedure Not Procedure Tolerated Well Tolerated Well -Debridement - Subq, 1st 20sq cm Yes Yes Pain Scale: 0-10 Numeric Is Patient Pain Free? Yes Yes WC - Nurse 3 - General Ulcer D/C NN Start: 07/30/21 13:09 Freq: Status: Active Protocol: Activity Type Activity Date Activity User E-Sign Co-Sign Detail Recorded Client Recorded Date Recorded By Document 07/30/21 13:40 DL [id number] 07/30/21 13:41 DL Document 08/06/21 13:47 [id number] 08/06/21 13:47 07/30/21 08/06/21 13:40 13:47 Wound Care Nurse 3 #9 R Plantar -Ulcer Cleansing Soap and Water Rinsed/ Irrigated with Saline -Foul Odor after Cleansing No No -Other Dressing Betadine betadine -Primary Dressing Covered/Secured with Dry Gauze & Dry Gauze, Roll Gauze, Secured with Secured with Tape Tape -Other Covering ABD Right -Compression Wrap Jens Wrap Jens Wrap Treatment Response Procedure Tolerated Well Pain Scale: 0-10 Numeric Is Patient Pain Free? Yes Yes WC - Visit Discharge Discharge Condition Stable Stable Ambulatory Status Ambulatory, Walker Walker Transportation Private Auto Private Auto Medication Reconcilliation completed & Yes provided to patient/care provider Clinical Summary of Care Provided Yes Facility Type Home Health Orders Sent Yes Assessment/Plan Assessment/Plan (1) Chronic ulcer of right foot with necrosis of bone: CODE(S): L97.514 - Non-pressure chronic ulcer of other part of right foot with necrosis of bone (2) Non-pressure chronic ulcer of other part of right foot with fat layer exposed: CODE(S): L97.512 - Non-pressure chronic ulcer of other part of right foot with fat layer exposed (3) Type 2 diabetes mellitus with diabetic polyneuropathy: CODE(S): E11.42 - Type 2 diabetes mellitus with diabetic polyneuropathy QUALIFIERS: Diabetes mellitus long term care pharmacist insulin use: unspecified long term care pharmacist insulin use status Qualified Code(s): E11.42 - Type 2 diabetes mellitus with diabetic polyneuropathy (4) Osteomyelitis: CODE(S): M86.9 - Osteomyelitis, unspecified QUALIFIERS: Osteomyelitis type: other acute Osteomyelitis location: foot Laterality: right Qualified Code(s): M86.171 - Other acute osteomyelitis, right ankle and foot (5) Tobacco abuse: CODE(S): Z72.0 - Tobacco use (6) Venous insufficiency: CODE(S): I87.2 - Venous insufficiency (chronic) (peripheral) (7) Obese: CODE(S): E66.9 - Obesity, unspecified QUALIFIERS: Obesity type: due to excess calories Obesity classification: adult class 3 (BMI >= 40) Serious obesity comorbidity presence: with serious comorbidity Body mass index: BMI 40.0-44.9 Qualified Code(s): E66.01 - Morbid (severe) obesity due to excess calories; Z68.41 - Body mass index [BMI]40.0-44.9, adult (8) History of amputation of foot: CODE(S): Z89.439 - Acquired absence of unspecified foot QUALIFIERS: Laterality: right Qualified Code(s): Z89.431 - Acquired absence of right foot (9) Bilateral lower extremity edema: CODE(S): R60.0 - Localized edema (10) Cellulitis of right foot: CODE(S): L03.115 - Cellulitis of right lower limb (11) Charcot's joint, right ankle and foot: CODE(S): M14.671 - Charcot's joint, right ankle and foot PLAN: Patient seen and examined. Debridement was performed as noted in the clinical panel. Dressing update: Betadine wet-to-dry gauze packing Wash: Antibacterial soap and water. Avoid soaking. Prior bone culture was positive for OM 04/08/2021. Patient saw Dr Soto, infectious disease, who agreed with continued course of augmentin for 6 weeks. Culture 04/08/21 demonstrate MSSA, strep, and anaerobic cocci. Recent lab work was reviewed. XR taken 04/21/21 were reviewed which show midfoot changes concerning for osteomyelitis and charcot. When compared to XR on 01/22/21 there is more consolidation noted. There is concern for reactivation of his Charcot and osteomyelitis. Now there is a status change today with increased and returned right plantar foot ulcer site. After subcutaneous excisional debridement and saline irrigation was performed a deep wound culture was obtained for aerobic, anaerobic, acid-fast, fungal and MRSA PCR. His x-rays were reviewed from his recent emergency room visit on 07-25-2021 (saw Dr. Bernal) which demonstrated relatively unchanged Charcot of the midfoot without soft tissue emphysema foreign body or additional subluxation. I recommend updating his labs and these were ordered including CBC, CMP, ESR, C-reactive protein. He did not get these when advised and went later today (08-06-21). His white blood cell count 7.6 and ESR 66. The CBC and CRP results are still pending. I am certainly concerned of deep tissue involvement including acute on chronic osteomyelitis. There are no local signs of infection or systemic illness today. He was placed on doxycycline due to positive MRSA findings from his cultures last week. I recommend infectious disease follow-up as well and he is scheduled for later this week. Input and recommendations are appreciated. Patient to remain nonweightbearing to the right lower extremity. Use wheelchair or knee walker. Patient is noted to also have gotten an electric scooter in order to offload his foot He is at risk for further amputation of foot or leg. He has a KLAWOCK walker ready at [employer] once healed. I recommend [facility] for nutritional supplementation to optimize healing. All questions answered. To follow-up next week. Note: [employer] speech recognition food consultant software was used to create portions of this document. Sound-alike and misspelled words, as well as other food consultant errors may be contained in the documentation. The medical decision making level is moderate based on data including at least three of the following: review of prior external notes, review of a test, ordering a test, assessment requiring an independent historian. The medical decision making level is moderate. There is noted moderate risk of morbidity after considering this treatment plan and diagnostic data. Considerations were given to prescription management, decisions regarding surgical options, or social determinants of health.
[2021-08-06 18:11] LABS: ALB/GLOB Ratio 0.5 RATIO (0.9-2.4); AST(SGOT) 18 U/L (15-37); Alanine Aminotransfer ALT/SGPT 18 U/L (16-61); Albumin, Serum 2.9 g/dL (3.2-5.0); Alkaline Phosphatase 68 U/L (45-117); Anion Gap 8 (5-15); BUN 18 mg/dL (7-18); BUN/Creat Ratio 16.8 RATIO (10-20); Calcium,Total 8.8 mg/dL (8.5-10.1); Chloride 100 mmol/L (98-107); Creatinine, Serum 1.07 mg/dL (0.70-1.30); EST Glomerular Filtration Rate 77 mL/min (>60); Est Glom Filt Rate - Afr Amer 94 mL/min (>60); Glucose 138 mg/dL (74-106); Potassium 4.1 mmol/L (3.5-5.1); Protein, Total 8.9 g/dL (6.4-8.2); Sodium Level 135 mmol/L (136-145)
== END 2021-08-11 23:59 ==
LOC: WC 13:15
PROVIDERS: PCP Internal Medicine; Referring Provider Podiatrist Foot & Ankle Surgery; Visit Provider Podiatrist
DX: E11.621 Type 2 diabetes mellitus with foot ulcer (principal); L97.514 Non-pressure chronic ulcer of other part of right foot with necrosis of bone; L97.512 Non-pressure chronic ulcer of other part of right foot with fat layer exposed; M86.171 Other acute osteomyelitis, right ankle and foot; E11.42 Type 2 diabetes mellitus with diabetic polyneuropathy; E11.59 Type 2 diabetes mellitus with other circulatory complications; E11.610 Type 2 diabetes mellitus with diabetic neuropathic arthropathy; E66.01 Morbid (severe) obesity due to excess calories; Z68.41 Body mass index [BMI] 40.0-44.9, adult; Z79.4 Long term (current) use of insulin; L03.115 Cellulitis of right lower limb; R60.0 Localized edema; I87.2 Venous insufficiency (chronic) (peripheral); Z72.0 Tobacco use; M14.671 Charcot's joint, right ankle and foot
CPT/HCPCS: 29445; 11042; 36415; 80053; 85025; 85652; 86140; 87015; 87070; 87075; 87077; 87101; 87116; 87176; 87186; 87205; 87206; 87640

== ENCOUNTER 2021-09-03 13:30 | Outpatient (RCR) | payer MEDICAID, SELFPAY ==
[2021-08-12 00:35] VITALS: BP 159/86; PULSE 100; RESP 16; TEMP 36.1; BMI 47.7
[2021-08-13 13:27] VITALS: BP 161/89; PULSE 109; TEMP 36.2; BMI 47.7
--- NOTE | 2021-08-13 14:53 | PN.PCM_ITS ---
History of Present Illness Date of Service: 08/13/21 Chief Complaint: right ulcer to the bottom of the foot History of Wound: Patient is a 51-year-old male who presents to the wound care center for follow-up complicated right foot ulcers with history of Charcot and osteomyelitis history. He denies redness or odor, fever, chills, nausea or vomiting today. The onset of this recent plantar foot ulcer was July 25, 2021. He denies odor or redness. He is taking doxycycline as advised this past week without any known side effects. He did also have a phone follow-up with infectious disease specialist last week. Progress of Wound: stable Objective Data Objective Data Vital Signs: Vital Signs Temp Pulse Resp BP 97.2 F L 109 H 16 161/89 H 08/13/21 13:27 08/13/21 13:27 08/12/21 00:35 08/13/21 13:27 Body Mass Index (BMI) 47.7 Physical Exam Narrative Const alert and oriented x3 General Appearance: cooperative HEENT normocephalic Extremity Extremity Narrative: No calf tenderness Diminished pulses Compartments remain soft to palpate right lower extremity General Extremity: edema especially to right lower extremity. No tenderness to palpation of joints or extremities; Negative for cyanosis. No gross laxity crepitus or pain with attempted passive manipulation of the midfoot at his prior Charcot site. Skin Skin Narrative: Lateral right foot ulceration is healed with full epithelialization Serosanguineous drainage noted from plantar foot. There is no malodor noted today. This is returned and it probes deep approximately 3.9 cm. Tissue is granular with devitalized adipose tissue. No direct probe to bone however this is very deep and I suspect this is communicating with his Charcot versus potential overlying osteomyelitis General Skin Exam: Negative for erythema MSK Muscle wasting noted Charcot foot with rocker-bottom deformity and fourth and fifth ray resection right. Partial second toe amputation. Neuro Neuro Narrative: lack of normal epicritic sensation via light touch is consistent with neuropathy status Psych cooperative and affect normal Debridement Note Debridement Note Wound debrided: plantar right foot Wound Grade/Stage: 2 Type of Debridement: Excisional debridement Anesthesia Used: 4% Lidocaine Solution Depth: in the subcutaneous layer Percentage of wound debrided: 100 Instrument Used: #15 blade Tissue Removed: fibrous, devitalized subcutaneous, biofilm, slough Severity: Fat Layer Exposed Amount of bleeding with debridement: Mild Bleeding Controlled with: Pressure Patient tolerated procedure: Patient tolerated procedure well Post-Debridement Measurements and Additional Note: Post-Debridement Measurements/Treatment - Nurse 1 - General Ulcer Assessment Start: 08/13/21 13:27 Freq: Status: Active Protocol: NIGEL Activity Type Activity Date Activity User E-Sign Co-Sign Detail Recorded Client Recorded Date Recorded By Document 08/13/21 13:27 CT [id number] 08/13/21 13:33 CT 08/13/21 13:27 - Today's Visit Information Type of service Follow-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 Any new allergies or adverse reactions No Has dressing in place as prescribed Yes Has compression in place as prescribed Yes Has offloadiing in place as prescribed N/A Right Footwear Regular Shoe Pain Scale: 0-10 Numeric Is Patient Pain Free? Yes - Nurse 1 - General Ulcer Measurement Start: 08/13/21 13:27 Freq: Status: Active Protocol: Activity Type Activity Date Activity User E-Sign Co-Sign Detail Recorded Client Recorded Date Recorded By Document 08/13/21 13:27 CT [id number] 08/13/21 13:33 CT 08/13/21 13:27 Wound Center Nurse 1 #9 R Plantar -Combined with other wound No -Current Size (cm) - Length 0.6 -Current Size (cm) - Width 1.1 -Current Size (cm) - Depth 0.6 -Total Square Cm 0.66 -Date of Last Picture (Recall this 08/13/21 field) -Photo Taken Yes -Epithelialization None Present -Tunneling No -Undermining/Tunneling No -Circular Undermining No -Exudate Amt Medium -Exudate Type Serosanguineous -Wound Margin Distinct, Outline Attached -Granulation Amt Medium (34-66%) -Necrosis Amt Medium (34-66%) -Necrotic Tissue Type Adherent Slough -Structure Exposed N/A -Texture (Michelle-wound Skin Appearance) Assessed,Callus -Moisture (Michelle-wound Skin Appearance) No Abnormality, Assessed -Color (Michelle-wound Skin Appearance) No Abnormality, Assessed -Tenderness on Palpation (Michelle-wound No Skin Appearance) -Foul Odor after Cleansing No -Anesthetic Used 5% Lidocaine Gel WC - Nurse 2 - General Ulcer CM Notes Start: 08/13/21 13:27 Freq: Status: Active Protocol: Activity Type Activity Date Activity User E-Sign Co-Sign Detail Recorded Client Recorded Date Recorded By Document 08/13/21 13:40 JERSON [id number] 08/13/21 13:44 JERSON 08/13/21 13:40 Wound Center Nurse 2 -Time 13:41 -Correct Patient Yes -Correct Side, Site, Position Yes -Correct Procedure Yes -Procedure Performed Yes -Type of Procedure Debridement -Clinical Debridement Subcutaneous -Tissue Removed Subcutaneous -Post Debridement (cm) - Length 0.6 -Post Debridement (cm) - Width 1.2 -Post Debridement (cm) - Depth 3.9 -Total Square (Post) (cm) 0.72 -Area of Debridement (cm) - Length 0.6 -Area of Debridement (cm) - Width 1.2 -Total Square (Area) (cm) 0.72 -Tunneling No -Circular Undermining No -Wound/Ulcer Outcome Not Healed -Ulcer Cleansing Rinsed/ Irrigated with Saline -Foul Odor after Cleansing No -Bioengineered Tissue No -Bleeding Controlled with Pressure -Offloading Yes -Type of Offloading Knee Walker -Treatment Response Procedure Tolerated Well -Debridement - Subq, 1st 20sq cm Yes Pain Scale: 0-10 Numeric Is Patient Pain Free? Yes - Nurse 3 - General Ulcer D/C NN Start: 08/13/21 13:27 Freq: Status: Active Protocol: Activity Type Activity Date Activity User E-Sign Co-Sign Detail Recorded Client Recorded Date Recorded By Document 08/13/21 14:12 GULSHAN [id number] 08/13/21 14:15 DL 08/13/21 14:12 Wound Care Nurse 3 #9 R Plantar -Ulcer Cleansing Soap and Water -Foul Odor after Cleansing No -Other Dressing Betadine -Primary Dressing Covered/Secured with Dry Gauze & Roll Gauze, Secured with Tape -Other Covering ADIN Treatment Response Procedure Tolerated Well Pain Scale: 0-10 Numeric Is Patient Pain Free? Yes WC - Visit Discharge Discharge Condition Stable Ambulatory Status Walker Transportation Private Auto Facility Type Home Health Orders Sent Yes Assessment/Plan Assessment/Plan (1) Chronic ulcer of right foot with necrosis of bone: CODE(S): L97.514 - Non-pressure chronic ulcer of other part of right foot with necrosis of bone (2) Non-pressure chronic ulcer of other part of right foot with fat layer exposed: CODE(S): L97.512 - Non-pressure chronic ulcer of other part of right foot with fat layer exposed (3) Type 2 diabetes mellitus with diabetic polyneuropathy: CODE(S): E11.42 - Type 2 diabetes mellitus with diabetic polyneuropathy QUALIFIERS: Diabetes mellitus snf insulin use: unspecified technician terminal and repeater insulin use status Qualified Code(s): E11.42 - Type 2 diabetes mellitus with diabetic polyneuropathy (4) Osteomyelitis: CODE(S): M86.9 - Osteomyelitis, unspecified QUALIFIERS: Osteomyelitis type: other acute Osteomyelitis location: foot Laterality: right Qualified Code(s): M86.171 - Other acute oste omyelitis, right ankle and foot (5) Tobacco abuse: CODE(S): Z72.0 - Tobacco use (6) Venous insufficiency: CODE(S): I87.2 - Venous insufficiency (chronic) (peripheral) (7) Obese: CODE(S): E66.9 - Obesity, unspecified QUALIFIERS: Obesity type: due to excess calories Obesity classification: adult class 3 (BMI >= 40) Serious obesity comorbidity presence: with serious comorbidity Body mass index: BMI 40.0-44.9 Qualified Code(s): E66.01 - Morbid (severe) obesity due to excess calories; Z68.41 - Body mass index [BMI]40.0-44.9, adult (8) History of amputation of foot: CODE(S): Z89.439 - Acquired absence of unspecified foot QUALIFIERS: Laterality: right Qualified Code(s): Z89.431 - Acquired absence of right foot (9) Bilateral lower extremity edema: CODE(S): R60.0 - Localized edema (10) Cellulitis of right foot: CODE(S): L03.115 - Cellulitis of right lower limb (11) Charcot's joint, right ankle and foot: CODE(S): M14.671 - Charcot's joint, right ankle and foot PLAN: Patient seen and examined. Debridement was performed as noted in the clinical panel. Dressing update: Betadine wet-to-dry gauze packing Wash: Antibacterial soap and water. Avoid soaking. Prior bone culture was positive for OM 04/08/2021. Patient saw Dr Soto, infectious disease, who agreed with continued course of augmentin for 6 weeks. Culture 04/08/21 demonstrate MSSA, strep, and anaerobic cocci. Recent lab work was reviewed. XR taken 04/21/21 were reviewed which show midfoot changes concerning for osteomyelitis and charcot. When compared to XR on 01/22/21 there is more consolidation noted. There is concern for reactivation of his Charcot and osteomyelitis. Now there is a status change today with increased and returned right plantar foot ulcer site. After subcutaneous excisional liberty ridement and saline irrigation was performed a deep wound culture was obtained for aerobic, anaerobic, acid-fast, fungal and MRSA PCR. His x-rays were reviewed from his recent emergency room visit on 07-25-2021 (saw Dr. Bernal) which demonstrated relatively unchanged Charcot of the midfoot without soft tissue emphysema foreign body or additional subluxation. I recommend updating his labs and these were ordered including CBC, CMP, ESR, C-reactive protein. He did not get these when advised and went later today (08-06-21). His white blood cell count 7.6 and ESR 66. The CRP was 20.8. I am certainly concerned of the progression of deep tissue involvement including acute on chronic osteomyelitis. There are no local signs of infection or systemic illness today. He was placed on doxycycline due to positive MRSA findings from his resent cultures. The case was reviewed verbally with Dr. Soto, infectious disease specialist again today. We will proceed forward with a short-term soft tissue coverage course of the doxycycline and will adjust if he does not respond appropriately. Patient to remain nonweightbearing to the right lower extremity. Use wheelchair or knee walker / roller. Patient is noted to also have gotten an electric scooter in order to offload his foot He is at risk for further amputation of foot or leg. He has a GULKANA walker ready at [facility] once healed. I recommend [facility] for nutritional supplementation to optimize healing. All questions answered. To follow-up next week. Note: [employer] speech recognition injection molding supervisor software was used to create portions of this document. Sound-alike and misspelled words, as well as other injection molding supervisor errors may be contained in the documentation. The medical decision making level is limited based on data including the review of prior external notes, review of a prior test, or ordering a test. The medical decision making level is low. There is noted low risk of morbidity after considering this treatment plan and diagnostic data.
[2021-08-22 14:10] VITALS: BP 138/89; PULSE 100; RESP 18; TEMP 36.6; BMI 47.7
--- NOTE | 2021-08-22 16:31 | PN.PCM_ITS ---
History of Present Illness Date of Service: 08/22/21 Chief Complaint: right ulcer to the bottom of the foot History of Wound: Patient is a 51-year-old male who presents to the wound care center for follow-up complicated right foot ulcers with history of Charcot and osteomyelitis history. He denies redness or odor, fever, chills, nausea or vomiting today. The onset of this recent plantar foot ulcer was July 25, 2021. He denies odor or redness. He is taking doxycycline as advised this past week without any known side effects; has four days of medication left. He denies side effects or diarrhea. He did also have a phone follow-up with infectious disease specialist last week. Progress of Wound: stable Objective Data Objective Data Vital Signs: Vital Signs Temp Pulse Resp BP 97.8 F 100 18 138/89 H 08/22/21 14:10 08/22/21 14:10 08/22/21 14:10 08/22/21 14:10 Body Mass Index (BMI) 47.7 Physical Exam Narrative Const alert and oriented x3 General Appearance: cooperative HEENT normocephalic Extremity Extremity Narrative: No calf tenderness Diminished pulses Compartments remain soft to palpate right lower extremity General Extremity: edema especially to right lower extremity. No tenderness to palpation of joints or extremities; Negative for cyanosis. No gross laxity crepitus or pain with attempted passive manipulation of the midfoot at his prior Charcot site. Skin Skin Narrative: Lateral right foot ulceration is healed with full epithelialization Serosanguineous drainage noted from plantar foot. There is no malodor noted today. deep tissue probing noted General Skin Exam: Negative for erythema MSK Muscle wasting noted Charcot foot with rocker-bottom deformity and fourth and fifth ray resection right. Partial second toe amputation. Neuro Neuro Narrative: lack of normal epicritic sensation via light touch is consistent with neuropathy status Psych cooperative and affect normal Debridement Note Debridement Note Wound debrided: plantar right foot Wound Grade/Stage: 2 Type of Debridement: Excisional debridement Anesthesia Used: 4% Lidocaine Solution Depth: in the subcutaneous layer Percentage of wound debrided: 100 Instrument Used: #15 blade Tissue Removed: fibrous, devitalized subcutaneous, biofilm, slough Severity: Fat Layer Exposed Amount of bleeding with debridement: Mild Bleeding Controlled with: Pressure Patient tolerated procedure: Patient tolerated procedure well Post-Debridement Measurements and Additional Note: Post-Debridement Measurements/Treatment WC - Nurse 1 - General Ulcer Assessment Start: 08/13/21 13:27 Freq: Status: Active Protocol: NIGEL Activity Type Activity Date Activity User E-Sign Co-Sign Detail Recorded Client Recorded Date Recorded By Document 08/13/21 13:27 WI [id number] 08/13/21 13:33 AK Document 08/22/21 14:10 RB [id number] 08/22/21 14:12 RB 08/13/21 08/22/21 13:27 14:10 - Today's Visit Information Type of service Follow-up Visit Follow-up Visit (Physician/CLINICAL STATISTICAL PROGRAMMER (Physician/CLINICAL STATISTICAL PROGRAMMER ) ) Arrival Mode Ambulatory, Ambulatory, Other Other Arrival Mode (Other) knee walker Transfer Assistance Manual Patient Identification Verified (Name & Yes Yes ) Patient Requires Transmission-Based No Precautions Height and Weight Body Mass Index (BMI) 47.7 47.7 BMI Classification Obese Obese Vital Signs Temperature (97.8 F-99.1 F) 97.2 F L 97.8 F Temperature Source Temporal Temporal Pulse Rate (60-100) 109 H 100 Pulse Location Monitor Monitor Respiratory Rate (12-18) 18 Respiratory rate source Observation Blood Pressure (90/60-120/80) 161/89 H 138/89 H Blood Pressure Mean (mm Hg) 113 105 Source Monitor Monitor Position Semi-Fowlers Blood Pressure Location Right Forearm History Since Last Visit- (Skip if this is Patient's initial visit) Have you changed medications since your No No last visit? Any new allergies or adverse reactions No No Had a fall/change in ADL's that may No increase risk of falls Signs or symptoms of abuse and/or No neglect since last visit Have you been in the hospital since your No last visit? Has dressing in place as prescribed Yes Yes Has compression in place as prescribed Yes Yes Has offloadiing in place as prescribed N/A No Experienced any changes in pain level or No management Right Footwear Regular Shoe Pain Scale: 0-10 Numeric Is Patient Pain Free? Yes Yes - Nurse 1 - General Ulcer Measurement Start: 08/13/21 13:27 Freq: Status: Active Protocol: Activity Type Activity Date Activity User E-Sign Co-Sign Detail Recorded Client Recorded Date Recorded By Document 08/13/21 13:27 WI [id number] 08/13/21 13:33 [place] Document 08/22/21 14:10 RB [id number] 08/22/21 14:12 RB 08/13/21 08/22/21 13:27 14:10 Wound Center Nurse 1 #9 R Plantar -Combined with other wound No No -Current Size (cm) - Length 0.6 0.3 -Current Size (cm) - Width 1.1 0.4 -Current Size (cm) - Depth 0.6 0.6 -Total Square Cm 0.66 0.12 -Date of Last Picture (Recall this 08/13/21 field) -Photo Taken Yes -Epithelialization None Present -Tunneling No No -Undermining/Tunneling No No -Circular Undermining No No -Exudate Amt Medium Medium -Exudate Type Serosanguineous Serosanguineous -Wound Margin Distinct, Thickened Outline Attached -Granulation Amt Medium (34-66%) Medium (34-66%) -Granulation Quality [place] -Slough/Fibrin Yes -Necrosis Amt Medium (34-66%) Small (1-33%) -Necrotic Tissue Type Adherent Slough Adherent Slough -Structure Exposed N/A Fat Layer Exposed -Texture (Michelle-wound Skin Appearance) Assessed,Callus Callus -Moisture (Michelle-wound Skin Appearance) No Abnormality, Assessed Assessed -Color (Michelle-wound Skin Appearance) No Abnormality, Assessed Assessed -Temperature (Michelle-wound Skin No Abnormality Appearance) (Pt Warm) -Tenderness on Palpation (Michelle-wound No No Skin Appearance) -Ulcer Cleansing Wound Cleanser -Foul Odor after Cleansing No No -Anesthetic Used 5% Lidocaine 5% Lidocaine Gel Gel WC - Nurse 2 - General Ulcer CM Notes Start: 08/13/21 13:27 Freq: Status: Active Protocol: Activity Type Activity Date Activity User E-Sign Co-Sign Detail Recorded Client Recorded Date Recorded By Document 08/13/21 13:40 JERSON [id number] 08/13/21 13:44 JERSON 08/13/21 13:40 Wound Center Nurse 2 -Time 13:41 -Correct Patient Yes -Correct Side, Site, Position Yes -Correct Procedure Yes -Procedure Performed Yes -Type of Procedure Debridement -Clinical Debridement Subcutaneous -Tissue Removed Subcutaneous -Post Debridement (cm) - Length 0.6 -Post Debridement (cm) - Width 1.2 -Post Debridement (cm) - Depth 3.9 -Total Square (Post) (cm) 0.72 -Area of Debridement (cm) - Length 0.6 -Area of Debridement (cm) - Width 1.2 -Total Square (Area) (cm) 0.72 -Tunneling No -Circular Undermining No -Wound/Ulcer Outcome Not Healed -Ulcer Cleansing Rinsed/ Irrigated with Saline -Foul Odor after Cleansing No -Bioengineered Tissue No -Bleeding Controlled with Pressure -Offloading Yes -Type of Offloading Knee Walker -Treatment Response Procedure Tolerated Well -Debridement - Subq, 1st 20sq cm Yes Pain Scale: 0-10 Numeric Is Patient Pain Free? Yes - Nurse 3 - General Ulcer D/C NN Start: 08/13/21 13:27 Freq: Status: Active Protocol: Activity Type Activity Date Activity User E-Sign Co-Sign Detail Recorded Client Recorded Date Recorded By Document 08/13/21 14:12 DL [id number] 08/13/21 14:15 DL Document 08/22/21 14:43 [facility] [id number] 08/22/21 14:43 [facility] 08/13/21 08/22/21 14:12 14:43 Wound Care Nurse 3 #9 R Plantar -Ulcer Cleansing Soap and Water Rinsed/ Irrigated with Saline -Foul Odor after Cleansing No No -Primary Dressing Applied Other -Other Dressing Betadine BETADINE MOISTENED GAUZE -Primary Dressing Covered/Secured with Dry Gauze & Dry Gauze & Roll Gauze, Roll Gauze, Secured with Secured with Tape Tape,Other -Other Covering JENS ABD Right -Compression Wrap Jens Wrap Treatment Response Procedure Procedure Tolerated Well Tolerated Well Pain Scale: 0-10 Numeric Is Patient Pain Free? Yes Yes - Visit Discharge Discharge Condition Stable Stable Ambulatory Status Walker Ambulatory, Walker Transportation Private Auto Private Auto Notes: [facility] Facility Type Home Health Orders Sent Yes Assessment/Plan Assessment/Plan (1) Chronic ulcer of right foot with necrosis of bone: CODE(S): L97.514 - Non-pressure chronic ulcer of other part of right foot with necrosis of bone (2) Non-pressure chronic ulcer of other part of right foot with fat layer exposed: CODE(S): L97.512 - Non-pressure chronic ulcer of other part of right foot with fat layer exposed (3) Type 2 diabetes mellitus with diabetic polyneuropathy: CODE(S): E11.42 - Type 2 diabetes mellitus with diabetic polyneuropathy QUALIFIERS: 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 use: unspecified usp insulin use status Qualified Code(s): E11.42 - Type 2 diabetes mellitus with diabetic polyneuropathy (4) Osteomyelitis: CODE(S): M86.9 - Osteomyelitis, unspecified QUALIFIERS: Osteomyelitis type: other acute Osteomyelitis location: foot Laterality: right Qualified Code(s): M86.171 - Other acute osteomyelitis, right ankle and foot (5) Tobacco abuse: CODE(S): Z72.0 - Tobacco use (6) Venous insufficiency: CODE(S): I87.2 - Venous insufficiency (chronic) (peripheral) (7) Obese: CODE(S): E66.9 - Obesity, unspecified QUALIFIERS: Obesity type: due to excess calories Obesity classification: adult class 3 (BMI >= 40) Serious obesity comorbidity presence: with serious comorbidity Body mass index: BMI 40.0-44.9 Qualified Code(s): E66.01 - Morbid (severe) obesity due to excess calories; Z68.41 - Body mass index [BMI]40.0-44.9, adult (8) History of amputation of foot: CODE(S): Z89.439 - Acquired absence of unspecified foot QUALIFIERS: Laterality: right Qualified Code(s): Z89.431 - Acquired absence of right foot (9) Bilateral lower extremity edema: CODE(S): R60.0 - Localized edema (10) Cellulitis of right foot: CODE(S): L03.115 - Cellulitis of right lower limb (11) Charcot's joint, right ankle and foot: CODE(S): M14.671 - Charcot's joint, right ankle and foot PLAN: Patient seen and examined. Debridement was performed as noted in the clinical panel. Dressing update: Betadine wet-to-dry gauze packing Wash: Antibacterial soap and water. Avoid soaking. Prior bone culture was positive for OM 04/08/2021. Patient saw Dr Soto, infectious disease, who agreed with continued course of augmentin for 6 weeks. Culture 04/08/21 demonstrate MSSA, strep, and anaerobic cocci. Recent lab work was reviewed. XR taken 10/11/21 were reviewed which show midfoot changes concerning for osteomyelitis and charcot. When compared to XR on 01/22/21 there is more consolidation noted. There is concern for reactivation of his Charcot and osteomyelitis. Now there is a status change today with increased and returned right plantar foot ulcer site. After subcutaneous excisional debridement and saline irrigation was performed a deep wound culture was obtained for aerobic, anaerobic, acid-fast, fungal and MRSA PCR. His x-rays were reviewed from his recent emergency room visit on 07-25-2021 (saw Dr. Bernal) which demonstrated relatively unchanged Charcot of the midfoot without soft tissue emphysema foreign body or additional subluxation. I recommend updating his labs and these were ordered including CBC, CMP, ESR, C-reactive protein. He did not get these when advised and went later today (08-06-21). His white blood cell count 7.6 and ESR 66. The CRP was 20.8. I am certainly concerned of the progression of deep tissue involvement including acute on chronic osteomyelitis. There are no local signs of infection or systemic illness today. He was placed on doxycycline due to positive MRSA findings from his resent cultures. The case was reviewed verbally with Dr. Soto, infectious disease specialist again today. We will proceed forward with a short-term soft tissue coverage course of the doxycycline and will adjust if he does not respond appropriately. He looks improved so far. Patient to remain nonweightbearing to the right lower extremity. Use wheelchair or knee walker / roller. Patient is noted to also have gotten an electric scooter in order to offload his foot He is at risk for further amputation of foot or leg. He has a KIANA walker ready at [facility] once healed. I recommend [place] for nutritional supplementation to optimize healing. All questions answered. To follow-up next week. Note: [employer] speech recognition communication clerk software was used to create portions of this document. Sound-alike and misspelled words, as well as other communication clerk errors may be contained in the documentation. The medical decision making level is low. There is noted low risk of morbidity after considering this treatment plan and diagnostic data. The problems addressed require a low medical decision making level which includes two or more minor problems, a stable chronic illness, or an acute uncomplicated illness or injury. The medical decision making level is limited based on data including the review of prior external notes, review of a prior test, or ordering a test.
[2021-08-27 13:24] VITALS: BP 137/89; PULSE 82; RESP 18; TEMP 36.4; BMI 47.7
--- NOTE | 2021-08-27 16:19 | PN.PCM_ITS ---
History of Present Illness Date of Service: 08/27/21 Chief Complaint: right ulcer to the bottom of the foot History of Wound: Patient is a 51-year-old male who presents to the wound care center for follow-up complicated right foot ulcers with history of Charcot and osteomyelitis history. He denies redness or odor, fever, chills, nausea or vomiting today. The onset of this recent plantar foot ulcer was July 25, 2021. He denies odor or redness. He completed a course of doxycycline. Progress of Wound: Improving Objective Data Objective Data Vital Signs: Vital Signs Temp Pulse Resp BP 97.5 F L 82 18 137/89 H 08/27/21 13:24 08/27/21 13:24 08/27/21 13:24 08/27/21 13:24 Body Mass Index (BMI) 47.7 Physical Exam Narrative Const alert and oriented x3 General Appearance: cooperative HEENT normocephalic Extremity Extremity Narrative: No calf tenderness Diminished pulses Compartments remain soft to palpate right lower extremity General Extremity: edema especially to right lower extremity. No tenderness to palpation of joints or extremities; Negative for cyanosis. No gross laxity crepitus or pain with attempted passive manipulation of the midfoot at his prior Charcot site. Skin Skin Narrative: Lateral right foot ulceration is healed with full epithelialization Serosanguineous drainage noted from plantar foot. There is no malodor noted today. deep tissue probing noted General Skin Exam: Negative for erythema MSK Muscle wasting noted Charcot foot with rocker-bottom deformity and fourth and fifth ray resection right. Partial second toe amputation. Neuro Neuro Narrative: lack of normal epicritic sensation via light touch is consistent with neuropathy status Psych cooperative and affect normal Debridement Note Debridement Note Wound debrided: left foot Wound Grade/Stage: 2 Type of Debridement: Excisional debridement Anesthesia Used: 4% Lidocaine Solution Depth: in the subcutaneous layer Percentage of wound debrided: 100 Instrument Used: #15 blade Tissue Removed: fibrous, devitalized subcutaneous, biofilm, slough Severity: Fat Layer Exposed Amount of bleeding with debridement: Mild Bleeding Controlled with: Pressure Patient tolerated procedure: Patient tolerated procedure well Post-Debridement Measurements and Additional Note: Post-Debridement Measurements/Treatment SANDEEP - Nurse 1 - General Ulcer Assessment Start: 08/13/21 13:27 Freq: Status: Active Protocol: NIGEL Activity Type Activity Date Activity User E-Sign Co-Sign Detail Recorded Client Recorded Date Recorded By Document 08/13/21 13:27 AK [id number] 08/13/21 13:33 AK Document 08/22/21 14:10 RB [id number] 08/22/21 14:12 RB Document 08/27/21 13:24 RB [id number] 08/27/21 13:31 RB 08/13/21 08/22/21 08/27/21 13:27 14:10 13:24 - Today's Visit Information Type of service Follow-up Visit Follow-up Visit Follow-up Visit (Physician/CONSTRUCTION IRONWORKER (Physician/CONSTRUCTION IRONWORKER (Physician/CONSTRUCTION IRONWORKER ) ) ) Arrival Mode Ambulatory, Ambulatory, Ambulatory, Other Other Other Arrival Mode (Other) knee walker Transfer Assistance Manual None Patient Identification Verified (Name & Yes Yes Yes ) Patient Requires Transmission-Based No No Precautions Height and Weight Body Mass Index (BMI) 47.7 47.7 47.7 BMI Classification Obese Obese Obese Vital Signs Temperature (97.8 F-99.1 F) 97.2 F L 97.8 F 97.5 F L Temperature Source Temporal Temporal Temporal Pulse Rate (60-100) 109 H 100 82 Pulse Location Monitor Monitor Monitor Respiratory Rate (12-18) 18 18 Respiratory rate source Observation Observation Blood Pressure (90/60-120/80) 161/89 H 138/89 H 137/89 H Blood Pressure Mean (mm Hg) 113 105 105 Source Monitor Monitor Monitor Position Semi-Fowlers Semi-Fowlers Blood Pressure Location Right Forearm Left Arm History Since Last Visit- (Skip if this is Patient's initial visit) Have you changed medications since your No No No last visit? Any new allergies or adverse reactions No No No Had a fall/change in ADL's that may No No increase risk of falls Signs or symptoms of abuse and/or No No neglect since last visit Have you been in the hospital since your No No last visit? Has dressing in place as prescribed Yes Yes Yes Has compression in place as prescribed Yes Yes Yes Has offloadiing in place as prescribed N/A No Yes Experienced any changes in pain level or No No management Right Footwear Regular Shoe Pain Scale: 0-10 Numeric Is Patient Pain Free? Yes Yes Yes - Nurse 1 - General Ulcer Measurement Start: 08/13/21 13:27 Freq: Status: Active Protocol: Activity Type Activity Date Activity User E-Sign Co-Sign Detail Recorded Client Recorded Date Recorded By Document 08/13/21 13:27 AK [id number] 08/13/21 13:33 AK Document 08/22/21 14:10 RB [id number] 08/22/21 14:12 RB Document 08/27/21 13:24 RB [id number] 08/27/21 13:31 RB 08/13/21 08/22/21 08/27/21 13:27 14:10 13:24 Wound Center Nurse 1 #9 R Plantar -Combined with other wound No No No -Current Size (cm) - Length 0.6 0.3 0.4 -Current Size (cm) - Width 1.1 0.4 0.5 -Current Size (cm) - Depth 0.6 0.6 0.8 -Total Square Cm 0.66 0.12 0.20 -Date of Last Picture (Recall this 08/13/21 field) -Photo Taken Yes -Epithelialization None Present -Tunneling No No No -Undermining/Tunneling No No No -Circular Undermining No No No -Exudate Amt Medium Medium Medium -Exudate Type Serosanguineous Serosanguineous Serosanguineous -Wound Margin Distinct, Thickened Thickened & Outline Rolled Under Attached -Granulation Amt Medium (34-66%) Medium (34-66%) Medium (34-66%) -Granulation Quality [place] -Slough/Fibrin Yes Yes -Necrosis Amt Medium (34-66%) Small (1-33%) Medium (34-66%) -Necrotic Tissue Type Adherent Slough Adherent Slough Adherent Slough -Structure Exposed N/A Fat Layer N/A Exposed -Texture (Michelle-wound Skin Appearance) Assessed,Callus Callus Callus -Moisture (Michelle-wound Skin Appearance) No Abnormality, Assessed Assessed Assessed -Color (Michelle-wound Skin Appearance) No Abnormality, Assessed Assessed Assessed -Temperature (Michelle-wound Skin No Abnormality No Abnormality Appearance) (Pt Warm) (Pt Warm) -Tenderness on Palpation (Michelle-wound No No No Skin Appearance) -Ulcer Cleansing Wound Cleanser Wound Cleanser -Foul Odor after Cleansing No No No -Anesthetic Used 5% Lidocaine 5% Lidocaine 5% Lidocaine Gel Gel Gel - Nurse 2 - General Ulcer CM Notes Start: 08/13/21 13:27 Freq: Status: Active Protocol: Activity Type Activity Date Activity User E-Sign Co-Sign Detail Recorded Client Recorded Date Recorded By Document 08/13/21 13:40 [id number] 08/13/21 13:44 JF Document 08/22/21 15:17 PL [id number] 08/23/21 15:18 PL Document 08/27/21 13:52 [id number] 08/27/21 13:54 08/13/21 08/22/21 08/27/21 13:40 15:17 13:52 Wound Center Nurse 2 #9 R Plantar -Time 13:41 14:20 13:53 -Correct Patient Yes Yes Yes -Correct Side, Site, Position Yes Yes Yes -Correct Procedure Yes Yes Yes -Procedure Performed Yes Yes Yes -Type of Procedure Debridement Debridement Debridement -Clinical Debridement Subcutaneous Subcutaneous Subcutaneous -Tissue Removed Subcutaneous Subcutaneous Subcutaneous -Post Debridement (cm) - Length 0.6 0.3 0.3 -Post Debridement (cm) - Width 1.2 0.4 0.4 -Post Debridement (cm) - Depth 3.9 0.6 0.4 -Total Square (Post) (cm) 0.72 0.12 0.12 -Area of Debridement (cm) - Length 0.6 0.3 0.3 -Area of Debridement (cm) - Width 1.2 0.4 0.4 -Total Square (Area) (cm) 0.72 0.12 0.12 -Tunneling No No No -Undermining/Tunneling No No -Circular Undermining No No No -Wound/Ulcer Outcome Not Healed Not Healed Not Healed -Ulcer Cleansing Rinsed/ Rinsed/ Rinsed/ Irrigated with Irrigated with Irrigated with Saline Saline Saline -Foul Odor after Cleansing No No No -Bioengineered Tissue No No No -Bleeding Controlled with Pressure Pressure Pressure -Offloading Yes Yes -Type of Offloading Knee Walker Surgical Shoe -Treatment Response Procedure Procedure Procedure Tolerated Well Tolerated Well Tolerated Well -Debridement - Subq, 1st 20sq cm Yes Yes Yes Pain Scale: 0-10 Numeric Is Patient Pain Free? Yes Yes Yes - Nurse 3 - General Ulcer D/C NN Start: 02/02/22 13:27 Freq: Status: Active Protocol: Activity Type Activity Date Activity User E-Sign Co-Sign Detail Recorded Client Recorded Date Recorded By Document 08/13/21 14:12 DL [id number] 08/13/21 14:15 DL Document 08/22/21 14:43 [facility] [id number] 08/22/21 14:43 [facility] Document 08/27/21 14:01 [facility] [id number] 08/27/21 14:01 [facility] 08/13/21 08/22/21 08/27/21 14:12 14:43 14:01 Wound Care Nurse 3 #9 R Plantar -Ulcer Cleansing Soap and Water Rinsed/ Rinsed/ Irrigated with Irrigated with Saline Saline -Foul Odor after Cleansing No No No -Primary Dressing Applied Other C Hydrogel ($) -Other Dressing Betadine BETADINE MOISTENED GAUZE -Primary Dressing Covered/Secured with Dry Gauze & Dry Gauze & Dry Gauze & Roll Gauze, Roll Gauze, Roll Gauze, Secured with Secured with Secured with Tape Tape,Other Tape,Other -Other Covering JENS ABD ABD Right -Compression Wrap Jens Wrap Jens Wrap -Other JENS TO SECURE DRSG Treatment Response Procedure Procedure Procedure Tolerated Well Tolerated Well Tolerated Well Pain Scale: 0-10 Numeric Is Patient Pain Free? Yes Yes Yes WC - Visit Discharge Discharge Condition Stable Stable Stable Ambulatory Status Walker Ambulatory, Ambulatory, Walker Walker Transportation Private Auto Private Auto Notes: KNEE WALKER Facility Type Home Health Home Health Orders Sent Yes Assessment/Plan Assessment/Plan (1) Chronic ulcer of right foot with necrosis of bone: CODE(S): L97.514 - Non-pressure chronic ulcer of other part of right foot with necrosis of bone (2) Non-pressure chronic ulcer of other part of right foot with fat layer exposed: CODE(S): L97.512 - Non-pressure chronic ulcer of other part of right foot with fat layer exposed (3) Type 2 diabetes mellitus with diabetic polyneuropathy: CODE(S): E11.42 - Type 2 diabetes mellitus with diabetic polyneuropathy QUALIFIERS: Diabetes mellitus long-term insulin use: unspecified long-term insulin use status Qualified Code(s): E11.42 - Type 2 diabetes mellitus with diabetic polyneuropathy (4) Osteomyelitis: CODE(S): M86.9 - Osteomyelitis, unspecified QUALIFIERS: Laterality: right Osteomyelitis location: foot Osteomyelitis type: other acute Qualified Code(s): M86.171 - Other acute osteomyelitis, right ankle and foot (5) Tobacco abuse: CODE(S): Z72.0 - Tobacco use (6) Venous insufficiency: CODE(S): I87.2 - Venous insufficiency (chronic) (peripheral) (7) Obese: CODE(S): E66.9 - Obesity, unspecified QUALIFIERS: Body mass index: BMI 40.0-44.9 Obesity classification: adult class 3 (BMI >= 40) Obesity type: due to excess calories Serious obesity comorbidity presence: with serious comorbidity Qualified Code(s): E66.01 - Morbid (severe) obesity due to excess calories; Z68.41 - Body mass index [BMI]40.0-44.9, adult (8) History of amputation of foot: CODE(S): Z89.439 - Acquired absence of unspecified foot QUALIFIERS: Laterality: right Qualified Code(s): Z89.431 - Acquired absence of right foot (9) Bilateral lower extremity edema: CODE(S): R60.0 - Localized edema (10) Cellulitis of right foot: CODE(S): L03.115 - Cellulitis of right lower limb (11) Charcot's joint, right ankle and foot: CODE(S): M14.671 - Charcot's joint, right ankle and foot PLAN: Patient seen and examined. Debridement was performed as noted in the clinical panel. Dressing update: Aquacel Ag and gauze. Reduced depth noted Wash: Antibacterial soap and water. Avoid soaking. Prior bone culture was positive for OM 04/08/2021. Patient saw Dr Soto, infectious disease, who agreed with continued course of augmentin for 6 weeks. Culture 04/08/21 demonstrate MSSA, strep, and anaerobic cocci. Recent lab work was reviewed. XR taken 04/21/21 were reviewed which show midfoot changes concerning for osteomyelitis and charcot. When compared to XR on 01/22/21 there is more consolidation noted. There is concern for reactivation of his Charcot and osteomyelitis. Now there is a status change today with increased and returned right plantar foot ulcer site. After subcutaneous excisional debridement and saline irrigation was performed a deep wound culture was obtained for aerobic, anaerobic, acid-fast, fungal and MRSA PCR. His x-rays were reviewed from his recent emergency room visit on 07-25-2021 (saw Dr. Bernal) which demonstrated relatively unchanged Charcot of the midfoot without soft tissue emphysema foreign body or additional subluxation. I recommend updating his labs and these were ordered including CBC, CMP, ESR, C-reactive protein. He did not get these when advised and went later today (08-06-21). His white blood cell count 7.6 and ESR 66. The CRP was 20.8. I am certainly concerned of the progression of deep tissue involvement including acute on chronic osteomyelitis. There are no local signs of infection or systemic illness today. He was placed on doxycycline due to positive MRSA findings from his resent cultures. The case was reviewed verbally with Dr. Soto, infectious disease specialist again today. He already completed the recommended course of doxycycline and he appears to be doing well. I do not recommend additional antibiotics today. Patient to remain nonweightbearing to the right lower extremity. Use wheelchair or knee walker / roller. Patient is noted to also have gotten an electric scooter in order to offload his foot He is at risk for further amputation of foot or leg. He has a HYDABURG walker ready at [email or web address] once healed. I recommend [place] for nutritional supplementation to optimize healing. All questions answered. To follow-up next week. Note: [employer] speech recognition nip wrapper software was used to create portions of this document. Sound-alike and misspelled words, as well as other nip wrapper errors may be contained in the documentation.
[2021-09-03 13:22] VITALS: BP 157/81; PULSE 92; RESP 22; TEMP 36.1; BMI 47.7
--- NOTE | 2021-09-03 14:29 | PCM.WC.PN ---
History of Present Illness Date of Service: 09/03/21 Chief Complaint: right ulcer to the bottom of the foot History of Wound: Patient is a 51-year-old male who presents to the wound care center for follow-up complicated right foot ulcers with history of Charcot and osteomyelitis history. He denies redness or odor, fever, chills, nausea or vomiting today. The onset of this recent plantar foot ulcer was July 25, 2021. He denies odor or redness. He does not think the ulcer has been draining. Progress of Wound: Improving Objective Data Objective Data Vital Signs: Vital Signs Temp Pulse Resp BP 96.9 F L 92 22 H 157/81 H 09/03/21 13:22 09/03/21 13:22 09/03/21 13:22 09/03/21 13:22 Body Mass Index (BMI) 47.7 Physical Exam Narrative Const alert and oriented x3 General Appearance: cooperative HEENT normocephalic Extremity Extremity Narrative: No calf tenderness Diminished pulses Compartments remain soft to palpate right lower extremity General Extremity: edema especially to right lower extremity. No tenderness to palpation of joints or extremities; Negative for cyanosis. No gross laxity crepitus or pain with attempted passive manipulation of the midfoot at his prior Charcot site. Skin Skin Narrative: Lateral right foot ulceration is healed with full epithelialization Serosanguineous drainage noted from plantar foot. There is no malodor noted today. deep tissue probing noted General Skin Exam: Negative for erythema MSK Muscle wasting noted Charcot foot with rocker-bottom deformity and fourth and fifth ray resection right. Partial second toe amputation. Neuro Neuro Narrative: lack of normal epicritic sensation via light touch is consistent with neuropathy status Psych cooperative and affect normal Debridement Note Debridement Note Wound debrided: plantar right foot Wound Grade/Stage: 2 Type of Debridement: Excisional debridement Anesthesia Used: 4% Lidocaine Solution Depth: in the subcutaneous layer Percentage of wound debrided: 100 Instrument Used: #15 blade Tissue Removed: fibrous, devitalized subcutaneous, biofilm, slough Severity: Fat Layer Exposed Amount of bleeding with debridement: Mild Bleeding Controlled with: Pressure Patient tolerated procedure: Patient tolerated procedure well Post-Debridement Measurements and Additional Note: Post-Debridement Measurements/Treatment SANDEEP - Nurse 1 - General Ulcer Assessment Start: 08/13/21 13:27 Freq: Status: Active Protocol: WC.LOWEXT Activity Type Activity Date Activity User E-Sign Co-Sign Detail Recorded Client Recorded Date Recorded By Document 08/13/21 13:27 AK [id number] 08/13/21 13:33 AK Document 08/22/21 14:10 RB [id number] 08/22/21 14:12 RB Document 08/27/21 13:24 RB [id number] 08/27/21 13:31 RB Document 09/03/21 13:22 DL [id number] 09/03/21 13:30 DL 08/13/21 08/22/21 08/27/21 13:27 14:10 13:24 WC - Today's Visit Information Type of service Follow-up Visit Follow-up Visit Follow-up Visit (Physician/BACK TENDER [employer]ING (Physician/BACK TENDER [employer]OTH [employer]ING (Physician/BACK TENDER [employer] ) ) ) Arrival Mode Ambulatory, Ambulatory, Ambulatory, Other Other Other Arrival Mode (Other) knee walker Transfer Assistance Manual None Patient Identification Verified (Name & Yes Yes Yes ) Patient Requires Transmission-Based No No Precautions Height and Weight Body Mass Index (BMI) 47.7 47.7 47.7 BMI Classification Obese Obese Obese Vital Signs Temperature (97.8 F-99.1 F) 97.2 F L 97.8 F 97.5 F L Temperature Source Temporal Temporal Temporal Pulse Rate (60-100) 109 H 100 82 Pulse Location Monitor Monitor Monitor Respiratory Rate (12-18) 18 18 Respiratory rate source Observation Observation Blood Pressure (90/60-120/80) 161/89 H 138/89 H 137/89 H Blood Pressure Mean (mm Hg) 113 105 105 Source Monitor Monitor Monitor Position Semi-Fowlers Semi-Fowlers Blood Pressure Location Right Forearm Left Arm History Since Last Visit- (Skip if this is Patient's initial visit) Have you changed medications since your No No No last visit? Any new allergies or adverse reactions No No No Had a fall/change in ADL's that may No No increase risk of falls Signs or symptoms of abuse and/or No No neglect since last visit Have you been in the hospital since your No No last visit? Has dressing in place as prescribed Yes Yes Yes Has compression in place as prescribed Yes Yes Yes Has offloadiing in place as prescribed N/A No Yes Experienced any changes in pain level or No No management Right Footwear Regular Shoe Pain Scale: 0-10 Numeric Is Patient Pain Free? Yes Yes Yes 09/03/21 13:22 WC - Today's Visit Information Type of service Follow-up Visit (Physician/BACK TENDER [employer] ) Arrival Mode Ambulatory, Walker Arrival Mode (Other) Knee walker Transfer Assistance None Patient Identification Verified (Name & ) Patient Requires Transmission-Based Precautions Height and Weight Body Mass Index (BMI) 47.7 BMI Classification Obese Vital Signs Temperature (97.8 F-99.1 F) 96.9 F L Temperature Source Temporal Pulse Rate (60-100) 92 Pulse Location Monitor Respiratory Rate (12-18) 22 H Respiratory rate source Observation Blood Pressure (90/60-120/80) 157/81 H Blood Pressure Mean (mm Hg) 106 Source Monitor Position Blood Pressure Location History Since Last Visit- (Skip if this is Patient's initial visit) Have you changed medications since your No last visit? Any new allergies or adverse reactions No Had a fall/change in ADL's that may No increase risk of falls Signs or symptoms of abuse and/or No neglect since last visit Have you been in the hospital since your No last visit? Has dressing in place as prescribed Yes Has compression in place as prescribed Yes Has offloadiing in place as prescribed Experienced any changes in pain level or No management Right Footwear No Footwear Pain Scale: 0-10 Numeric Is Patient Pain Free? Yes WC - Nurse 1 - General Ulcer Measurement Start: 08/13/21 13:27 Freq: Status: Active Protocol: Activity Type Activity Date Activity User E-Sign Co-Sign Detail Recorded Client Recorded Date Recorded By Document 08/13/21 13:27 AK [id number] 08/13/21 13:33 AK Document 08/22/21 14:10 RB [id number] 08/22/21 14:12 RB Document 08/27/21 13:24 RB [id number] 08/27/21 13:31 RB Document 09/03/21 13:22 DL [id number] 09/03/21 13:30 DL 08/13/21 08/22/21 08/27/21 13:27 14:10 13:24 Wound Center Nurse 1 #9 R Plantar -Combined with other wound No No No -Current Size (cm) - Length 0.6 0.3 0.4 -Current Size (cm) - Width 1.1 0.4 0.5 -Current Size (cm) - Depth 0.6 0.6 0.8 -Total Square Cm 0.66 0.12 0.20 -Date of Last Picture (Recall this 08/13/21 field) -Photo Taken Yes -Epithelialization None Present -Tunneling No No No -Undermining/Tunneling No No No -Circular Undermining No No No -Exudate Amt Medium Medium Medium -Exudate Type Serosanguineous Serosanguineous Serosanguineous -Wound Margin Distinct, Thickened Thickened & Outline Rolled Under Attached -Granulation Amt Medium (34-66%) Medium (34-66%) Medium (34-66%) -Granulation Quality [place] -Slough/Fibrin Yes Yes -Necrosis Amt Medium (34-66%) Small (1-33%) Medium (34-66%) -Necrotic Tissue Type Adherent Slough Adherent Slough Adherent Slough -Structure Exposed N/A Fat Layer N/A Exposed -Texture (Michelle-wound Skin Appearance) Assessed,Callus Callus Callus -Moisture (Michelle-wound Skin Appearance) No Abnormality, Assessed Assessed Assessed -Color (Michelle-wound Skin Appearance) No Abnormality, Assessed Assessed Assessed -Temperature (Michelle-wound Skin No Abnormality No Abnormality Appearance) (Pt Warm) (Pt Warm) -Tenderness on Palpation (Michelle-wound No No No Skin Appearance) -Ulcer Cleansing Wound Cleanser Wound Cleanser -Foul Odor after Cleansing No No No -Anesthetic Used 5% Lidocaine 5% Lidocaine 5% Lidocaine Gel Gel Gel Right Calf (cm) Right Ankle (cm) 09/03/21 13:22 Wound Center Nurse 1 #9 R Plantar -Combined with other wound -Current Size (cm) - Length 0.1 -Current Size (cm) - Width 0.1 -Current Size (cm) - Depth 0.1 -Total Square Cm 0.01 -Date of Last Picture (Recall this field) -Photo Taken No -Epithelialization -Tunneling -Undermining/Tunneling -Circular Undermining -Exudate Amt None Present -Exudate Type -Wound Margin Thickened -Granulation Amt Large (67-100%) -Granulation Quality Pale -Slough/Fibrin -Necrosis Amt None Present (0 %) -Necrotic Tissue Type -Structure Exposed N/A -Texture (Michelle-wound Skin Appearance) Scarring -Moisture (Michelle-wound Skin Appearance) No Abnormality -Color (Michelle-wound Skin Appearance) Hemosiderin Staining -Temperature (Michelle-wound Skin No Abnormality Appearance) (Pt Warm) -Tenderness on Palpation (Michelle-wound No Skin Appearance) -Ulcer Cleansing Soap and Water -Foul Odor after Cleansing -Anesthetic Used 5% Lidocaine Gel Right Calf (cm) 50 Right Ankle (cm) 32.3 WC - Nurse 2 - General Ulcer CM Notes Start: 08/13/21 13:27 Freq: Status: Active Protocol: Activity Type Activity Date Activity User E-Sign Co-Sign Detail Recorded Client Recorded Date Recorded By Document 08/13/21 13:40 [id number] 08/13/21 13:44 Document 08/22/21 15:17 PL [id number] 08/23/21 15:18 PL Document 08/27/21 13:52 [id number] 08/27/21 13:54 Document 09/03/21 13:45 [id number] 09/03/21 13:46 08/13/21 08/22/21 08/27/21 13:40 15:17 13:52 Wound Center Nurse 2 #9 R Plantar -Time 13:41 14:20 13:53 -Correct Patient Yes Yes Yes -Correct Side, Site, Position Yes Yes Yes -Correct Procedure Yes Yes Yes -Procedure Performed Yes Yes Yes -Type of Procedure Debridement Debridement Debridement -Clinical Debridement Subcutaneous Subcutaneous Subcutaneous -Tissue Removed Subcutaneous Subcutaneous Subcutaneous -Post Debridement (cm) - Length 0.6 0.3 0.3 -Post Debridement (cm) - Width 1.2 0.4 0.4 -Post Debridement (cm) - Depth 3.9 0.6 0.4 -Total Square (Post) (cm) 0.72 0.12 0.12 -Area of Debridement (cm) - Length 0.6 0.3 0.3 -Area of Debridement (cm) - Width 1.2 0.4 0.4 -Total Square (Area) (cm) 0.72 0.12 0.12 -Tunneling No No No -Undermining/Tunneling No No -Circular Undermining No No No -Wound/Ulcer Outcome Not Healed Not Healed Not Healed -Ulcer Cleansing Rinsed/ Rinsed/ Rinsed/ Irrigated with Irrigated with Irrigated with Saline Saline Saline -Foul Odor after Cleansing No No No -Bioengineered Tissue No No No -Bleeding Controlled with Pressure Pressure Pressure -Offloading Yes Yes -Type of Offloading Knee Walker Surgical Shoe -Treatment Response Procedure Procedure Procedure Tolerated Well Tolerated Well Tolerated Well -Debridement - Subq, 1st 20sq cm Yes Yes Yes Pain Scale: 0-10 Numeric Is Patient Pain Free? Yes Yes Yes 09/03/21 13:45 Wound Center Nurse 2 #9 R Plantar -Time 13:45 -Correct Patient Yes -Correct Side, Site, Position Yes -Correct Procedure Yes -Procedure Performed Yes -Type of Procedure Debridement -Clinical Debridement Subcutaneous -Tissue Removed Subcutaneous -Post Debridement (cm) - Length 0.5 -Post Debridement (cm) - Width 0.2 -Post Debridement (cm) - Depth 0.2 -Total Square (Post) (cm) 0.10 -Area of Debridement (cm) - Length 0.5 -Area of Debridement (cm) - Width 0.2 -Total Square (Area) (cm) 0.10 -Tunneling No -Undermining/Tunneling No -Circular Undermining No -Wound/Ulcer Outcome Not Healed -Ulcer Cleansing Rinsed/ Irrigated with Saline -Foul Odor after Cleansing No -Bioengineered Tissue No -Bleeding Controlled with Pressure -Offloading Yes -Type of Offloading Camwalker -Treatment Response Procedure Tolerated Well -Debridement - Subq, 1st 20sq cm Yes Pain Scale: 0-10 Numeric Is Patient Pain Free? Yes WC - Nurse 3 - General Ulcer D/C NN Start: 08/13/21 13:27 Freq: Status: Active Protocol: Activity Type Activity Date Activity User E-Sign Co-Sign Detail Recorded Client Recorded Date Recorded By Document 08/13/21 14:12 DL [id number] 08/13/21 14:15 DL Document 08/22/21 14:43 [facility] [id number] 08/22/21 14:43 BM Document 08/27/21 14:01 [facility] [id number] 08/27/21 14:01 [facility] Document 09/03/21 13:54 DL [id number] 09/03/21 13:55 DL 08/13/21 08/22/21 08/27/21 14:12 14:43 14:01 Wound Care Nurse 3 #9 R Plantar -Ulcer Cleansing Soap and Water Rinsed/ Rinsed/ Irrigated with Irrigated with Saline Saline -Foul Odor after Cleansing No No No -Primary Dressing Applied Other C Hydrogel ($) -Other Dressing Betadine BETADINE MOISTENED GAUZE -Primary Dressing Covered/Secured with Dry Gauze & Dry Gauze & Dry Gauze & Roll Gauze, Roll Gauze, Roll Gauze, Secured with Secured with Secured with Tape Tape,Other Tape,Other -Other Covering JENS ABD ABD Right -Compression Wrap Jens Wrap Jens Wrap -Other JENS TO SECURE DRSG Treatment Response Procedure Procedure Procedure Tolerated Well Tolerated Well Tolerated Well Pain Scale: 0-10 Numeric Is Patient Pain Free? Yes Yes Yes WC - Visit Discharge Discharge Condition Stable Stable Stable Ambulatory Status Walker Ambulatory, Ambulatory, Walker Walker Transportation Private Auto Private Auto Notes: KNEE WALKER Facility Type Home Health Home Health Orders Sent Yes 09/03/21 13:54 Wound Care Nurse 3 #9 R Plantar -Ulcer Cleansing Rinsed/ Irrigated with Saline -Foul Odor after Cleansing No -Primary Dressing Applied C Hydrogel ($) -Other Dressing hydrogel -Primary Dressing Covered/Secured with Dry Gauze & Roll Gauze, Secured with Tape -Other Covering Right -Compression Wrap -Other Treatment Response Procedure Tolerated Well Pain Scale: 0-10 Numeric Is Patient Pain Free? Yes WC - Visit Discharge Discharge Condition Stable Ambulatory Status Ambulatory, Walker Transportation Notes: Facility Type Home Health Orders Sent Yes Assessment/Plan Assessment/Plan (1) Non-pressure chronic ulcer of other part of right foot with fat layer exposed: CODE(S): L97.512 - Non-pressure chronic ulcer of other part of right foot with fat layer exposed (2) Type 2 diabetes mellitus with diabetic polyneuropathy: CODE(S): E11.42 - Type 2 diabetes mellitus with diabetic polyneuropathy QUALIFIERS: Diabetes mellitus long term care phlebotomist insulin use: unspecified long term care phlebotomist insulin use status Qualified Code(s): E11.42 - Type 2 diabetes mellitus with diabetic polyneuropathy (3) Osteomyelitis: CODE(S): M86.9 - Osteomyelitis, unspecified QUALIFIERS: Laterality: right Osteomyelitis location: foot Osteomyelitis type: other acute Qualified Code(s): M86.171 - Other acute osteomyelitis, right ankle and foot (4) Tobacco abuse: CODE(S): Z72.0 - Tobacco use (5) Venous insufficiency: CODE(S): I87.2 - Venous insufficiency (chronic) (peripheral) (6) Bilateral lower extremity edema: CODE(S): R60.0 - Localized edema (7) Charcot's joint, right ankle and foot: CODE(S): M14.671 - Charcot's joint, right ankle and foot PLAN: Patient seen and examined. Debridement was performed as noted in the clinical panel. Dressing update: Aquacel Ag and gauze. Reduced depth noted Wash: Antibacterial soap and water. Avoid soaking. Prior bone culture was positive for OM 04/08/2021. Patient saw Dr Soto, infectious disease, who agreed with continued course of augmentin for 6 weeks. Culture 04/08/21 demonstrate MSSA, strep, and anaerobic cocci. Recent lab work was reviewed. XR taken 04/21/21 were reviewed which show midfoot changes concerning for osteomyelitis and charcot. When compared to XR on 01/22/21 there is more consolidation noted. There is concern for reactivation of his Charcot and osteomyelitis. Now there is a status change today with increased and returned right plantar foot ulcer site. After subcutaneous excisional debridement and saline irrigation was performed a deep wound culture was obtained for aerobic, anaerobic, acid-fast, fungal and MRSA PCR. His x-rays were reviewed from his recent emergency room visit on 07-25-2021 (saw Dr. Bernal) which demonstrated relatively unchanged Charcot of the midfoot without soft tissue emphysema foreign body or additional subluxation. I recommend updating his labs and these were ordered including CBC, CMP, ESR, C-reactive protein. He did not get these when advised and went later today (08-06-21). His white blood cell count 7.6 and ESR 66. The CRP was 20.8. I am certainly concerned of the progression of deep tissue involvement including acute on chronic osteomyelitis. There are no local signs of infection or systemic illness today. He was placed on doxycycline due to positive MRSA findings from his resent cultures. The case was reviewed verbally with Dr. Soto, infectious disease specialist again today. He already completed the recommended course of doxycycline and he appears to be doing well. I do not recommend additional antibiotics today. Patient to remain nonweightbearing to the right lower extremity. Use wheelchair or knee walker / roller. Patient is noted to also have gotten an electric scooter in order to offload his foot He is at risk for further amputation of foot or leg. He has a [employer] walker ready at [facility] once healed. I recommend [facility] for nutritional supplementation to optimize healing. All questions answered. To follow-up next week. Note: Trendrating speech recognition motorcycle mechanic software was used to create portions of this document. Sound-alike and misspelled words, as well as other motorcycle mechanic errors may be contained in the documentation.
== END 2021-09-08 23:59 | disposition home or self-care (01) ==
LOC: WC 13:30
PROVIDERS: PCP Internal Medicine; Referring Provider Podiatrist Foot & Ankle Surgery; Visit Provider Podiatrist
DX: L03.115 Cellulitis of right lower limb (principal); E11.621 Type 2 diabetes mellitus with foot ulcer; Z89.431 Acquired absence of right foot; L97.514 Non-pressure chronic ulcer of other part of right foot with necrosis of bone; L97.512 Non-pressure chronic ulcer of other part of right foot with fat layer exposed; M86.171 Other acute osteomyelitis, right ankle and foot; E11.59 Type 2 diabetes mellitus with other circulatory complications; E11.610 Type 2 diabetes mellitus with diabetic neuropathic arthropathy; E11.42 Type 2 diabetes mellitus with diabetic polyneuropathy; E66.01 Morbid (severe) obesity due to excess calories; Z68.41 Body mass index [BMI] 40.0-44.9, adult; Z79.4 Long term (current) use of insulin; Z72.0 Tobacco use; R60.0 Localized edema; I87.2 Venous insufficiency (chronic) (peripheral)
CPT/HCPCS: 11042

== ENCOUNTER 2021-10-08 15:15 | Outpatient (RCR) | payer MEDICAID, SELFPAY ==
[2021-09-09 00:29] VITALS: BP 157/81; PULSE 92; RESP 22; TEMP 36.1; BMI 47.7
[2021-09-10 13:47] VITALS: BP 149/86; PULSE 113; RESP 20; TEMP 36.2; BMI 47.7
--- NOTE | 2021-09-10 14:29 | PCM.WC.PN ---
History of Present Illness Date of Service: 09/10/21 Chief Complaint: right ulcer to the bottom of the foot History of Wound: Patient is a 51-year-old male who presents to the wound care center for follow-up complicated right foot ulcers with history of Charcot and osteomyelitis history. He denies redness or odor, fever, chills, nausea or vomiting today. The onset of this recent plantar foot ulcer was July 25, 2021. He denies odor or redness. He does not think the ulcer has been draining. He reports his home health nurse said this site is boggy. He has been consistent with offloading with a knee roller. Progress of Wound: Improving Objective Data Objective Data Vital Signs: Vital Signs Temp Pulse Resp BP 97.2 F L 113 H 20 H 149/86 H 09/10/21 13:47 09/10/21 13:47 09/10/21 13:47 09/10/21 13:47 Body Mass Index (BMI) 47.7 Physical Exam Narrative Const alert and oriented x3 General Appearance: cooperative HEENT normocephalic Extremity Extremity Narrative: No calf tenderness Diminished pulses Compartments remain soft to palpate right lower extremity General Extremity: edema especially to right lower extremity. No tenderness to palpation of joints or extremities; Negative for cyanosis. No gross laxity crepitus or pain with attempted passive manipulation of the midfoot at his prior Charcot site. Skin Skin Narrative: Serosanguineous scant drainage noted from plantar foot. There is no malodor noted today. deep tissue probing noted. This is only subhemorrhagic tissue noted with very minimal peripheral callus. No bogginess or fluctuance on palpation. General Skin Exam: Negative for erythema MSK Muscle wasting noted Charcot foot with rocker-bottom deformity and fourth and fifth ray resection right. Partial second toe amputation. No new laxity of the midfoot noted Neuro Neuro Narrative: lack of normal epicritic sensation via light touch is consistent with neuropathy status Psych cooperative and affect normal Debridement Note Debridement Note Wound debrided: right plantar foot Wound Grade/Stage: 1 Type of Debridement: Selective debridement Anesthesia Used: 4% Lidocaine Solution Depth: Down to and including healthy tissue Percentage of wound debrided: 100 Instrument Used: #15 blade Tissue Removed: fibrous, devitalized subcutaneous, biofilm, slough Severity: Fat Layer Exposed Amount of bleeding with debridement: Mild Bleeding Controlled with: Pressure Patient tolerated procedure: Patient tolerated procedure well Post-Debridement Measurements and Additional Note: Post-Debridement Measurements/Treatment WC - Nurse 1 - General Ulcer Assessment Start: 09/10/21 13:44 Freq: Status: Active Protocol: NIGEL Activity Type Activity Date Activity User E-Sign Co-Sign Detail Recorded Client Recorded Date Recorded By Document 09/10/21 13:47 DL [id number] 09/10/21 13:54 DL 09/10/21 13:47 WC - Today's Visit Information Type of service Follow-up Visit (Physician/AIRCRAFT RESTORER ) Arrival Mode Ambulatory, Walker Transfer Assistance None Patient Identification Verified (Name & Yes ) Finger Stick Blood Sugar(mg/dl) (if 134 indicated): Blood Sugar Stated by Patient Height and Weight Body Mass Index (BMI) 47.7 BMI Classification Obese Vital Signs Temperature (97.8 F-99.1 F) 97.2 F L Temperature Source Temporal Pulse Rate (60-100) 113 H Pulse Location Monitor Respiratory Rate (12-18) 20 H Respiratory rate source Observation Blood Pressure (90/60-120/80) 149/86 H Blood Pressure Mean (mm Hg) 107 Source Monitor History Since Last Visit- (Skip if this is Patient's initial visit) Have you changed medications since your No last visit? Any new allergies or adverse reactions No Had a fall/change in ADL's that may No increase risk of falls Signs or symptoms of abuse and/or No neglect since last visit Have you been in the hospital since your No last visit? Has dressing in place as prescribed Yes Has compression in place as prescribed Yes Has offloadiing in place as prescribed Yes Experienced any changes in pain level or No management Left Footwear Regular Shoe Right Footwear No Footwear Pain Scale: 0-10 Numeric Is Patient Pain Free? Yes - Nurse 1 - General Ulcer Measurement Start: 09/10/21 13:44 Freq: Status: Active Protocol: Activity Type Activity Date Activity User E-Sign Co-Sign Detail Recorded Client Recorded Date Recorded By Document 09/10/21 13:47 DL [id number] 09/10/21 13:54 DL 09/10/21 13:47 Wound Center Nurse 1 #9 R Plantar -Current Size (cm) - Length 0.1 -Current Size (cm) - Width 0.1 -Current Size (cm) - Depth 0.1 -Total Square Cm 0.01 -Photo Taken No -Exudate Amt None Present -Wound Margin Thickened -Granulation Amt Large (67-100%) -Granulation Quality Pale -Necrosis Amt Large (67-100%) -Necrotic Tissue Type Adherent Slough -Structure Exposed N/A -Texture (Michelle-wound Skin Appearance) Callus,Scarring -Moisture (Michelle-wound Skin Appearance) Dry/Scaly -Color (Michelle-wound Skin Appearance) No Abnormality -Temperature (Michelle-wound Skin No Abnormality Appearance) (Pt Warm) -Tenderness on Palpation (Michelle-wound No Skin Appearance) -Ulcer Cleansing Rinsed/ Irrigated with Saline -Foul Odor after Cleansing No -Anesthetic Used 4% Lidocaine Solution Right Calf (cm) 48.5 Right Ankle (cm) 29.5 - Nurse 2 - General Ulcer CM Notes Start: 09/10/21 13:44 Freq: Status: Active Protocol: Activity Type Activity Date Activity User E-Sign Co-Sign Detail Recorded Client Recorded Date Recorded By Document 09/10/21 14:22 [id number] 09/10/21 14:24 09/10/21 14:22 Wound Center Nurse 2 #9 R Plantar -Time 14:23 -Correct Patient Yes -Correct Side, Site, Position Yes -Correct Procedure Yes -Procedure Performed Yes -Type of Procedure Debridement -Clinical Debridement Epidermis / Dermis -Tissue Removed Epidermis -Post Debridement (cm) - Length 0.1 -Post Debridement (cm) - Width 0.1 -Post Debridement (cm) - Depth 0.1 -Total Square (Post) (cm) 0.01 -Area of Debridement (cm) - Length 0.1 -Area of Debridement (cm) - Width 0.1 -Total Square (Area) (cm) 0.01 -Tunneling No -Undermining/Tunneling No -Circular Undermining No -Wound/Ulcer Outcome Not Healed -Ulcer Cleansing Rinsed/ Irrigated with Saline -Foul Odor after Cleansing No -Bioengineered Tissue No -Bleeding Controlled with Pressure -Offloading Yes -Type of Offloading Surgical Shoe -Treatment Response Procedure Tolerated Well -Debridement - Open, 1st 20sq cm Yes Pain Scale: 0-10 Numeric Is Patient Pain Free? Yes - Nurse 3 - General Ulcer D/C NN Start: 09/10/21 13:44 Freq: Status: Active Protocol: Activity Type Activity Date Activity User E-Sign Co-Sign Detail Recorded Client Recorded Date Recorded By Document 09/10/21 14:[address] [facility] [id number] 09/10/21 14:[address] [facility] 09/10/21 14:27 Wound Care Nurse 3 #9 R Plantar -Ulcer Cleansing Rinsed/ Irrigated with Saline -Foul Odor after Cleansing No -Primary Dressing Applied Other -Other Dressing HYDROGEL -Primary Dressing Covered/Secured with Dry Gauze, Secured with Tape -Other Covering DRSG PER RB RN Right -Compression Wrap Jens Wrap Treatment Response Procedure Tolerated Well Pain Scale: 0-10 Numeric Is Patient Pain Free? Yes WC - Visit Discharge Discharge Condition Stable Ambulatory Status Ambulatory, Walker Transportation TAXI Facility Type Home Health Assessment/Plan Assessment/Plan (1) Non-pressure chronic ulcer of other part of right foot with fat layer exposed: CODE(S): L97.512 - Non-pressure chronic ulcer of other part of right foot with fat layer exposed (2) Type 2 diabetes mellitus with diabetic polyneuropathy: CODE(S): E11.42 - Type 2 diabetes mellitus with diabetic polyneuropathy QUALIFIERS: Diabetes mellitus [place] [facility] insulin use: unspecified termite inspector insulin use status Qualified Code(s): E11.42 - Type 2 diabetes mellitus with diabetic polyneuropathy (3) Osteomyelitis: CODE(S): M86.9 - Osteomyelitis, unspecified QUALIFIERS: Laterality: right Osteomyelitis location: foot Osteomyelitis type: other acute Qualified Code(s): M86.171 - Other acute osteomyelitis, right ankle and foot (4) Tobacco abuse: CODE(S): Z72.0 - Tobacco use (5) Venous insufficiency: CODE(S): I87.2 - Venous insufficiency (chronic) (peripheral) (6) Bilateral lower extremity edema: CODE(S): R60.0 - Localized edema (7) Charcot's joint, right ankle and foot: CODE(S): M14.671 - Charcot's joint, right ankle and foot PLAN: Patient seen and examined. Debridement was performed as noted in the clinical panel. Dressing update: Aquacel Ag and gauze. Reduced depth noted Wash: Antibacterial soap and water. Avoid soaking. Prior bone culture was positive for OM 04/08/2021. Patient saw Dr Soto, infectious disease, who agreed with continued course of augmentin for 6 weeks. Culture 04/08/21 demonstrate MSSA, strep, and anaerobic cocci. Recent lab work was reviewed. XR taken 04/21/21 were reviewed which show midfoot changes concerning for osteomyelitis and charcot. When compared to XR on 01/22/21 there is more consolidation noted. There is concern for reactivation of his Charcot and osteomyelitis. Now there is a status change today with increased and returned right plantar foot ulcer site. After subcutaneous excisional debridement and saline irrigation was performed a deep wound culture was obtained for aerobic, anaerobic, acid-fast, fungal and MRSA PCR. His x-rays were reviewed from his recent emergency room visit on 07-25-2021 (saw Dr. Bernal) which demonstrated relatively unchanged Charcot of the midfoot without soft tissue emphysema foreign body or additional subluxation. I recommend updating his labs and these were ordered including CBC, CMP, ESR, C-reactive protein. He did not get these when advised and went later today (08-06-21). His white blood cell count 7.6 and ESR 66. The CRP was 20.8. I am certainly concerned of the progression of deep tissue involvement including acute on chronic osteomyelitis. There are no local signs of infection or systemic illness today. He was placed on doxycycline due to positive MRSA findings from his resent cultures. The case was reviewed verbally with Dr. Soto, infectious disease specialist again today. He already completed the recommended course of doxycycline and he appears to be doing well. I do not recommend additional antibiotics today. Patient to remain nonweightbearing to the right lower extremity. Use wheelchair or knee walker / roller. Patient is noted to also have gotten an electric scooter in order to offload his foot He is at risk for further amputation of foot or leg. He has a WRANGELL walker ready at [facility] once healed. He relates this is no longer known at this time so I gave him a new prescription. I recommend Glen for nutritional supplementation to optimize healing. All questions answered. To follow-up next week. Note: [employer] speech recognition corridor redevelopment manager software was used to create portions of this document. Sound-alike and misspelled words, as well as other corridor redevelopment manager errors may be contained in the documentation. The medical decision making level is moderate. There is noted moderate risk of morbidity after considering this treatment plan and diagnostic data. Considerations were given to prescription management, decisions regarding surgical options, or social determinants of health. The problems addressed require a moderate decision making level which includes one or more chronic illnesses (w/ exacerbation, progression, or side effects), two or more stable chronic illnesses, one undiagnosed new problem w/ uncertain prognosis, one acute illness with systemic symptoms, or one acute complicated injury.
[2021-09-17 08:37] VITALS: BP 161/84; PULSE 90; RESP 18; TEMP 36.5; BMI 47.7
--- NOTE | 2021-09-17 10:27 | PN.PCM_ITS ---
History of Present Illness Date of Service: 09/17/21 Chief Complaint: right ulcer to the bottom of the foot History of Wound: Patient is a 51-year-old male who presents to the wound care center for follow-up complicated right foot ulcers with history of Charcot and osteomyelitis history. He denies redness or odor, fever, chills, nausea or vomiting today. The onset of this recent plantar foot ulcer was July 25, 2021. He denies odor or redness. He reports very mild ulcer drainage. He has been consistent with offloading with a knee roller. Progress of Wound: Improving Objective Data Objective Data Vital Signs: Vital Signs Temp Pulse Resp BP 97.7 F L 90 18 161/84 H 09/17/21 08:37 09/17/21 08:37 09/17/21 08:37 09/17/21 08:37 Body Mass Index (BMI) 47.7 Physical Exam Narrative Const alert and oriented x3 General Appearance: cooperative HEENT normocephalic Extremity Extremity Narrative: No calf tenderness Diminished pulses Compartments remain soft to palpate right lower extremity General Extremity: edema especially to right lower extremity. No tenderness to palpation of joints or extremities; Negative for cyanosis. No gross laxity crepitus or pain with attempted passive manipulation of the midfoot at his prior Charcot site. Skin Skin Narrative: Serosanguineous scant drainage noted from plantar foot. There is no malodor noted today. deep tissue probing noted. This is only subhemorrhagic tissue noted with very minimal peripheral callus. No bogginess or fluctuance on palpation. No deep probing General Skin Exam: Negative for erythema MSK Muscle wasting noted Charcot foot with rocker-bottom deformity and fourth and fifth ray resection right. Partial second toe amputation. No new laxity of the midfoot noted Neuro Neuro Narrative: lack of normal epicritic sensation via light touch is consistent with neuropathy status Psych cooperative and affect normal Debridement Note Debridement Note Wound debrided: right foot Wound Grade/Stage: 1 Type of Debridement: Excisional debridement Anesthesia Used: 4% Lidocaine Solution Depth: in the subcutaneous layer Percentage of wound debrided: 100 Instrument Used: #15 blade Tissue Removed: fibrous, devitalized subcutaneous, biofilm, slough Severity: Fat Layer Exposed Amount of bleeding with debridement: Mild Bleeding Controlled with: Pressure Patient tolerated procedure: Patient tolerated procedure well Post-Debridement Measurements and Additional Note: Post-Debridement Measurements/Treatment - Nurse 1 - General Ulcer Assessment Start: 09/10/21 13:44 Freq: Status: Active Protocol: NIGEL Activity Type Activity Date Activity User E-Sign Co-Sign Detail Recorded Client Recorded Date Recorded By Document 09/10/21 13:47 DL [id number] 09/10/21 13:54 DL Document 09/17/21 08:37 RB [id number] 09/17/21 08:39 RB 09/10/21 09/17/21 13:47 08:37 - Today's Visit Information Type of service Follow-up Visit Follow-up Visit (Physician/HOB MILL OPERATOR (Physician/HOB MILL OPERATOR ) ) Arrival Mode Ambulatory, Ambulatory Walker Transfer Assistance None None Patient Identification Verified (Name & Yes Yes ) Patient Requires Transmission-Based No Precautions Finger Stick Blood Sugar(mg/dl) (if 134 indicated): Blood Sugar Stated by Patient Height and Weight Body Mass Index (BMI) 47.7 47.7 BMI Classification Obese Obese Vital Signs Temperature (97.8 F-99.1 F) 97.2 F L 97.7 F L Temperature Source Temporal Temporal Pulse Rate (60-100) 113 H 90 Pulse Location Monitor Monitor Respiratory Rate (12-18) 20 H 18 Respiratory rate source Observation Observation Blood Pressure (90/60-120/80) 149/86 H 161/84 H Blood Pressure Mean (mm Hg) 107 109 Source Monitor Monitor Position Semi-Fowlers Blood Pressure Location Left Arm History Since Last Visit- (Skip if this is Patient's initial visit) Have you changed medications since your No No last visit? Any new allergies or adverse reactions No No Had a fall/change in ADL's that may No No increase risk of falls Signs or symptoms of abuse and/or No No neglect since last visit Have you been in the hospital since your No No last visit? Has dressing in place as prescribed Yes Yes Has compression in place as prescribed Yes Yes Has offloadiing in place as prescribed Yes No Experienced any changes in pain level or No No management Left Footwear Regular Shoe Regular Shoe Right Footwear No Footwear Regular Shoe Pain Scale: 0-10 Numeric Is Patient Pain Free? Yes Yes - Nurse 1 - General Ulcer Measurement Start: 09/10/21 13:44 Freq: Status: Active Protocol: Activity Type Activity Date Activity User E-Sign Co-Sign Detail Recorded Client Recorded Date Recorded By Document 09/10/21 13:47 DL [id number] 09/10/21 13:54 DL Document 09/17/21 08:37 RB [id number] 09/17/21 08:39 RB 09/10/21 09/17/21 13:47 08:37 Wound Center Nurse 1 #9 R Plantar -Combined with other wound No -Current Size (cm) - Length 0.1 0.1 -Current Size (cm) - Width 0.1 0.1 -Current Size (cm) - Depth 0.1 0.1 -Total Square Cm 0.01 0.01 -Photo Taken No -Tunneling No -Undermining/Tunneling No -Circular Undermining No -Exudate Amt None Present None Present -Wound Margin Thickened Distinct, Outline Attached -Granulation Amt Large (67-100%) Large (67-100%) -Granulation Quality Pale [place] -Slough/Fibrin Yes -Necrosis Amt Large (67-100%) None Present (0 %) -Necrotic Tissue Type Adherent Slough Adherent Slough -Structure Exposed N/A N/A -Texture (Michelle-wound Skin Appearance) Callus,Scarring Assessed,Callus -Moisture (Michelle-wound Skin Appearance) Dry/Scaly Assessed -Color (Michelle-wound Skin Appearance) No Abnormality Assessed -Temperature (Michelle-wound Skin No Abnormality No Abnormality Appearance) (Pt Warm) (Pt Warm) -Tenderness on Palpation (Michelle-wound No No Skin Appearance) -Ulcer Cleansing Rinsed/ Rinsed/ Irrigated with Irrigated with Saline Saline -Foul Odor after Cleansing No No -Anesthetic Used 4% Lidocaine 5% Lidocaine Solution Gel Right Calf (cm) 48.5 Right Ankle (cm) 29.5 WC - Nurse 2 - General Ulcer CM Notes Start: 09/10/21 13:44 Freq: Status: Active Protocol: Activity Type Activity Date Activity User E-Sign Co-Sign Detail Recorded Client Recorded Date Recorded By Document 09/10/21 14:22 [id number] 09/10/21 14:24 Document 09/17/21 08:56 [id number] 09/17/21 08:57 09/10/21 09/17/21 14:22 08:56 Wound Center Nurse 2 #9 R Plantar -Time 14:23 08:56 -Correct Patient Yes Yes -Correct Side, Site, Position Yes Yes -Correct Procedure Yes Yes -Procedure Performed Yes Yes -Type of Procedure Debridement Debridement -Clinical Debridement Epidermis / Subcutaneous Dermis -Tissue Removed Epidermis Subcutaneous -Post Debridement (cm) - Length 0.1 0.4 -Post Debridement (cm) - Width 0.1 0.5 -Post Debridement (cm) - Depth 0.1 0.2 -Total Square (Post) (cm) 0.01 0.20 -Area of Debridement (cm) - Length 0.1 0.4 -Area of Debridement (cm) - Width 0.1 0.5 -Total Square (Area) (cm) 0.01 0.20 -Tunneling No No -Undermining/Tunneling No No -Circular Undermining No No -Wound/Ulcer Outcome Not Healed Not Healed -Ulcer Cleansing Rinsed/ Rinsed/ Irrigated with Irrigated with Saline Saline -Foul Odor after Cleansing No No -Bioengineered Tissue No No -Bleeding Controlled with Pressure Pressure -Offloading Yes Yes -Type of Offloading Surgical Shoe Knee Walker -Treatment Response Procedure Procedure Tolerated Well Tolerated Well -Debridement - Open, 1st 20sq cm Yes -Debridement - Subq, 1st 20sq cm Yes Pain Scale: 0-10 Numeric Is Patient Pain Free? Yes Yes - Nurse 3 - General Ulcer D/C NN Start: 09/10/21 13:44 Freq: Status: Active Protocol: Activity Type Activity Date Activity User E-Sign Co-Sign Detail Recorded Client Recorded Date Recorded By Document 09/10/21 14:27 [facility] [id number] 09/10/21 14:28 [facility] Document 09/17/21 09:01 [id number] 09/17/21 09:02 09/10/21 09/17/21 14:27 09:01 Wound Care Nurse 3 #9 R Plantar -Ulcer Cleansing Rinsed/ Rinsed/ Irrigated with Irrigated with Saline Saline -Foul Odor after Cleansing No No -Primary Dressing Applied Other C Hydrogel ($) -Other Dressing HYDROGEL -Primary Dressing Covered/Secured with Dry Gauze, Dry Gauze, Secured with Secured with Tape Tape -Other Covering DRSG PER RB RN Right -Compression Wrap Jens Wrap Jens Wrap Treatment Response Procedure Tolerated Well Pain Scale: 0-10 Numeric Is Patient Pain Free? Yes Yes WC - Visit Discharge Discharge Condition Stable Stable Ambulatory Status Ambulatory, Walker Walker Transportation TAXI Private Auto Medication Reconcilliation completed & Yes provided to patient/care provider Clinical Summary of Care Provided Yes Facility Type Home Health Assessment/Plan Assessment/Plan (1) Non-pressure chronic ulcer of other part of right foot with fat layer exposed: CODE(S): L97.512 - Non-pressure chronic ulcer of other part of right foot with fat layer exposed (2) Type 2 diabetes mellitus with diabetic polyneuropathy: CODE(S): E11.42 - Type 2 diabetes mellitus with diabetic polyneuropathy QUALIFIERS: Diabetes mellitus [facility] insulin use: unspecified investigator internal affairs insulin use status Qualified Code(s): E11.42 - Type 2 diabetes mellitus with diabetic polyneuropathy (3) Osteomyelitis: CODE(S): M86.9 - Osteomyelitis, unspecified QUALIFIERS: Osteomyelitis type: other acute Osteomyelitis location: foot Laterality: right Qualified Code(s): M86.171 - Other acute osteomyelitis, right ankle and foot (4) Tobacco abuse: CODE(S): Z72.0 - Tobacco use (5) Venous insufficiency: CODE(S): I87.2 - Venous insufficiency (chronic) (peripheral) (6) Bilateral lower extremity edema: CODE(S): R60.0 - Localized edema (7) Charcot's joint, right ankle and foot: CODE(S): M14.671 - Charcot's joint, right ankle and foot PLAN: Patient seen and examined. Debridement was performed as noted in the clinical panel. Dressing update: Aquacel Ag and gauze. Reduced depth noted Wash: Antibacterial soap and water. Avoid soaking. Prior bone culture was positive for OM 04/08/2021. Patient saw Dr Soto, infectious disease, who agreed with continued course of Augmentin for 6 weeks. Culture 04/08/21 demonstrate MSSA, strep, and anaerobic cocci. Recent lab work was reviewed. XR taken 04/21/21 were reviewed which show midfoot changes concerning for osteomyelitis and charcot. When compared to XR on 01/22/21 there is more consolidation noted. There is concern for reactivation of his Charcot and osteomyelitis. Now there is a status change today with increased and returned right plantar foot ulcer site. After subcutaneous excisional debridement and saline irrigation was performed a deep wound culture was obtained for aerobic, anaerobic, acid-fast, fungal and MRSA PCR. His x-rays were reviewed from his recent emergency room visit on 07-25-2021 (saw Dr. Bernal) which demonstrated relatively unchanged Charcot of the midfoot without soft tissue emphysema foreign body or additional subluxation. I recommend updating his labs and these were ordered including CBC, CMP, ESR, C-reactive protein. He did not get these when advised and went later today (08-06-21). His white blood cell count 7.6 and ESR 66. The CRP was 20.8. I am certainly concerned of the progression of deep tissue involvement including acute on chronic osteomyelitis. There are no local signs of infection or systemic illness today. He was placed on doxycycline due to positive MRSA findings from his resent cultures. The case was reviewed verbally with Dr. Soto, infectious disease specialist again today. He already completed the recommended course of doxycycline and he appears to be doing well. I do not recommend additional antibiotics today. Patient to remain nonweightbearing to the right lower extremity. Use wheelchair or knee walker / roller. Patient is noted to also have gotten an electric scooter in order to offload his foot He is at risk for further amputation of foot or leg. He has a [employer] walker ready at [facility] once healed. He relates this is no longer known at this time so I gave him a new prescription. I recommend Glen for nutritional supplementation to optimize healing. All questions answered. To follow-up 2 weeks. Note: [employer] speech recognition program professional software was used to create portions of this document. Sound-alike and misspelled words, as well as other program professional errors may be contained in the documentation.
--- NOTE | 2021-09-29 14:02 | WC ---
Patient called in last Wednesday complaining of a soft boggy area close to exciting foot. At that time, patient was encouraged to go to the ER since there has been a change in his ulcer. Received a call from Mary Kate PATEL nurse who saw patient this am and entered his apartment with blood to foot and on floor. The area that was boggy had popped according to Mary Kate and infection was noted. No warmth or redness noted and VSS. Mary Kate said the lat time patient had an infection, his wound and drainage now is mirroring the same symptoms. Called patient at home and left a voicemail with Dr John. Told patient we are concerned with a change in wound status like his, that attention to area needs performed. Patient does not have a ride at the moment but possibly will have one this evening and refuses to call an ambulance. Called Mary Kate who states she will call him this evening to follow-up on this conversation.
[2021-10-01 14:26] VITALS: BP 175/94; PULSE 100; RESP 18; TEMP 36.6; BMI 47.7
--- NOTE | 2021-10-01 14:51 | PN.PCM_ITS ---
History of Present Illness Date of Service: 10/01/21 Chief Complaint: right ulcer to the bottom of the foot History of Wound: Patient is a 51-year-old male who presents to the wound care center for follow-up complicated right foot ulcers with history of Charcot and osteomyelitis history. He denies redness or odor, fever, chills, nausea or vomiting today. The onset of this recent plantar foot ulcer was July 25, 2021. He denies odor or redness. He reports increased drainage. He has been consistent with offloading with a knee roller. He developed a blister last Wednesday and refused coming to the emergency room for evaluation. He was not sure if it was infected and was requesting antibiotics. He waited to come into clinic today for evaluation. He denies redness or streaking to the leg. He does not recall a trauma or increased activity. He has increased drainage to the bottom of the foot. He relates his glucose levels have been between 120 to 130 mg/dL each morning. Progress of Wound: worse Objective Data Objective Data Vital Signs: Vital Signs Temp Pulse Resp BP 97.9 F 100 18 175/94 H 10/01/21 14:26 10/01/21 14:26 10/01/21 14:26 10/01/21 14:26 Oxygen Delivery Method Room Air Body Mass Index (BMI) 47.7 Physical Exam Narrative Const alert and oriented x3 General Appearance: cooperative HEENT normocephalic Extremity Extremity Narrative: No calf tenderness Diminished pulses Compartments remain soft to palpate right lower extremity General Extremity: edema especially to right lower extremity. No tenderness to palpation of joints or extremities; Negative for cyanosis. No gross laxity crepitus or pain with attempted passive manipulation of the midfoot at his prior Charcot site. Skin Skin Narrative: Serosanguineous scant drainage noted from plantar foot. There is no malodor noted today. deep tissue probing noted and increased. This is granulation t issue noted upon debridement of the bulla with deep tunneling to the midfoot and not directly to bone. This probes nearly 3 cm in depth and increase in size with work status. There is no purulence or maceration. No bogginess or fluctuance on palpation. No deep probing General Skin Exam: Negative for erythema MSK Muscle wasting noted Charcot foot with rocker-bottom deformity and fourth and fifth ray resection right. Partial second toe amputation. No new laxity of the midfoot noted Neuro Neuro Narrative: lack of normal epicritic sensation via light touch is consistent with neuropathy status Psych cooperative and affect normal Debridement Note Debridement Note Wound debrided: Plantar right foot Wound Grade/Stage: 1 Type of Debridement: Excisional debridement Anesthesia Used: 4% Lidocaine Solution Depth: in the subcutaneous layer Percentage of wound debrided: 100 Instrument Used: #15 blade Tissue Removed: fibrous, devitalized subcutaneous, biofilm, slough Severity: Fat Layer Exposed Amount of bleeding with debridement: Mild Bleeding Controlled with: Pressure Patient tolerated procedure: Patient tolerated procedure well Post-Debridement Measurements and Additional Note: Post-Debridement Measurements/Treatment - Nurse 1 - General Ulcer Assessment Start: 09/10/21 13:44 Freq: Status: Active Protocol: NIGEL Activity Type Activity Date Activity User E-Sign Co-Sign Detail Recorded Client Recorded Date Recorded By Document 09/10/21 13:47 DL [id number] 09/10/21 13:54 DL Document 09/17/21 08:37 RB [id number] 09/17/21 08:39 RB Document 10/01/21 14:26 [facility] [id number] 10/01/21 14:36 BMF 09/10/21 09/17/21 10/01/21 13:47 08:37 14:26 - Today's Visit Information Type of service Follow-up Visit Follow-up Visit Follow-up Visit (Physician/CLINICAL DATA ASSOCIATE (Physician/CLINICAL DATA ASSOCIATE (Physician/CLINICAL DATA ASSOCIATE ) ) ) Arrival Mode Ambulatory, Ambulatory Ambulatory, Walker Walker Arrival Mode (Other) KNEE WALKER Transfer Assistance None None None Patient Identification Verified (Name & Yes Yes Yes ) Patient Requires Transmission-Based No Precautions Finger Stick Blood Sugar(mg/dl) (if 134 127 indicated): Blood Sugar Stated by Stated by Patient Patient Height and Weight Body Mass Index (BMI) 47.7 47.7 47.7 BMI Classification Obese Obese Obese Vital Signs Temperature (97.8 F-99.1 F) 97.2 F L 97.7 F L 97.9 F Temperature Source Temporal Temporal Temporal Pulse Rate (60-100) 113 H 90 100 Pulse Location Monitor Monitor Monitor Respiratory Rate (12-18) 20 H 18 18 Respiratory rate source Observation Observation Observation Oxygen Delivery Method Room Air Blood Pressure (90/60-120/80) 149/86 H 161/84 H 175/94 H Blood Pressure Mean (mm Hg) 107 109 121 Source Monitor Monitor Monitor Position Semi-Fowlers Sitting Blood Pressure Location Left Arm Right Forearm History Since Last Visit- (Skip if this is Patient's initial visit) Have you changed medications since your No No No last visit? Any new allergies or adverse reactions No No No Had a fall/change in ADL's that may No No No increase risk of falls Signs or symptoms of abuse and/or No No No neglect since last visit Have you been in the hospital since your No No No last visit? Has dressing in place as prescribed Yes Yes Yes Has compression in place as prescribed Yes Yes Yes Has offloadiing in place as prescribed Yes No Yes Experienced any changes in pain level or No No No management Left Footwear Regular Shoe Regular Shoe Regular Shoe Right Footwear No Footwear Regular Shoe Other Footwear (Comment) Other Footwear JENS ONLY TO RT FOOT Pain Scale: 0-10 Numeric Is Patient Pain Free? Yes Yes Yes WC - Nurse 1 - General Ulcer Measurement Start: 09/10/21 13:44 Freq: Status: Active Protocol: Activity Type Activity Date Activity User E-Sign Co-Sign Detail Recorded Client Recorded Date Recorded By Document 09/10/21 13:47 DL [id number] 09/10/21 13:54 DL Document 09/17/21 08:37 RB [id number] 09/17/21 08:39 RB Document 10/01/21 14:26 [facility] [id number] 10/01/21 14:36 [facility] 09/10/21 09/17/21 10/01/21 13:47 08:37 14:26 Wound Center Nurse 1 #9 R Plantar -Combined with other wound No No -Current Size (cm) - Length 0.1 0.1 0.1 -Current Size (cm) - Width 0.1 0.1 0.1 -Current Size (cm) - Depth 0.1 0.1 0.1 -Total Square Cm 0.01 0.01 0.01 -Date of Last Picture (Recall this 10/01/21 field) -Photo Taken No Yes -Epithelialization None Present -Tunneling No No -Undermining/Tunneling No No -Circular Undermining No No -Exudate Amt None Present None Present Large -Exudate Type Sanguineous -Wound Margin Thickened Distinct, Distinct, Outline Outline Attached Attached -Granulation Amt Large (67-100%) Large (67-100%) -Granulation Quality Pale [place] -Slough/Fibrin Yes -Necrosis Amt Large (67-100%) None Present (0 %) -Necrotic Tissue Type Adherent Slough Adherent Slough -Structure Exposed N/A N/A -Texture (Michelle-wound Skin Appearance) Callus,Scarring Assessed,Callus Assessed, Scarring -Moisture (Michelle-wound Skin Appearance) Dry/Scaly Assessed Assessed, Maceration -Color (Michelle-wound Skin Appearance) No Abnormality Assessed Assessed,Palor -Temperature (Michelle-wound Skin No Abnormality No Abnormality No Abnormality Appearance) (Pt Warm) (Pt Warm) (Pt Warm) -Tenderness on Palpation (Michelle-wound No No No Skin Appearance) -Ulcer Cleansing Rinsed/ Rinsed/ Soap and Water Irrigated with Irrigated with Saline Saline -Foul Odor after Cleansing No No No -Anesthetic Used 4% Lidocaine 5% Lidocaine 5% Lidocaine Solution Gel Gel -Wound Comment(s) LOOKS LIKE A BLISTER THAT'S DRAINED Right Calf (cm) 48.5 Right Ankle (cm) 29.5 WC - Nurse 2 - General Ulcer CM Notes Start: 09/10/21 13:44 Freq: Status: Active Protocol: Activity Type Activity Date Activity User E-Sign Co-Sign Detail Recorded Client Recorded Date Recorded By Document 09/10/21 14:22 [id number] 09/10/21 14:24 Document 09/17/21 08:56 [id number] 09/17/21 08:57 Document 10/01/21 14:43 [id number] 10/01/21 14:48 09/10/21 09/17/21 10/01/21 14:22 08:56 14:43 Wound Center Nurse 2 #9 R Plantar -Time 14:23 08:56 14:47 -Correct Patient Yes Yes Yes -Correct Side, Site, Position Yes Yes Yes -Correct Procedure Yes Yes Yes -Procedure Performed Yes Yes Yes -Type of Procedure Debridement Debridement Debridement -Clinical Debridement Epidermis / Subcutaneous Subcutaneous Dermis -Tissue Removed Epidermis Subcutaneous Subcutaneous -Post Debridement (cm) - Length 0.1 0.4 1.5 -Post Debridement (cm) - Width 0.1 0.5 2.3 -Post Debridement (cm) - Depth 0.1 0.2 2.7 -Total Square (Post) (cm) 0.01 0.20 3.45 -Area of Debridement (cm) - Length 0.1 0.4 1.5 -Area of Debridement (cm) - Width 0.1 0.5 2.3 -Total Square (Area) (cm) 0.01 0.20 3.45 -Tunneling No No No -Undermining/Tunneling No No No -Circular Undermining No No No -Wound/Ulcer Outcome Not Healed Not Healed Not Healed -Ulcer Cleansing Rinsed/ Rinsed/ Rinsed/ Irrigated with Irrigated with Irrigated with Saline Saline Saline -Foul Odor after Cleansing No No No -Bioengineered Tissue No No No -Bleeding Controlled with Pressure Pressure Pressure -Treatment Response Procedure Procedure Procedure Tolerated Well Tolerated Well Tolerated Well -Offloading Yes Yes Yes -Type of Offloading Surgical Shoe Knee Walker Darco Shoe - Left -Debridement - Open, 1st 20sq cm Yes -Debridement - Subq, 1st 20sq cm Yes Yes Pain Scale: 0-10 Numeric Is Patient Pain Free? Yes Yes Yes - Nurse 3 - General Ulcer D/C NN Start: 09/10/21 13:44 Freq: Status: Active Protocol: Activity Type Activity Date Activity User E-Sign Co-Sign Detail Recorded Client Recorded Date Recorded By Document 09/10/21 14:27 [facility] [id number] 09/10/21 14:28 [facility] Document 09/17/21 09:01 [id number] 09/17/21 09:02 09/10/21 09/17/21 14:27 09:01 Wound Care Nurse 3 #9 R Plantar -Ulcer Cleansing Rinsed/ Rinsed/ Irrigated with Irrigated with Saline Saline -Foul Odor after Cleansing No No -Primary Dressing Applied Other C Hydrogel ($) -Other Dressing HYDROGEL -Primary Dressing Covered/Secured with Dry Gauze, Dry Gauze, Secured with Secured with Tape Tape -Other Covering DRSG PER RB RN Right -Compression Wrap Jens Wrap Jens Wrap Treatment Response Procedure Tolerated Well Pain Scale: 0-10 Numeric Is Patient Pain Free? Yes Yes - Visit Discharge Discharge Condition Stable Stable Ambulatory Status Ambulatory, Walker Walker Transportation [employer] Medication Reconcilliation completed & Yes provided to patient/care provider Clinical Summary of Care Provided Yes Facility Type Home Health Assessment/Plan Assessment/Plan (1) Non-pressure chronic ulcer of other part of right foot with fat layer exposed: CODE(S): L97.512 - Non-pressure chronic ulcer of other part of right foot with fat layer exposed (2) Type 2 diabetes mellitus with diabetic polyneuropathy: CODE(S): E11.42 - Type 2 diabetes mellitus with diabetic polyneuropathy QUALIFIERS: Diabetes mellitus lead oxide mill tender insulin use: unspecified lead oxide mill tender insulin use status Qualified Code(s): E11.42 - Type 2 diabetes mellitus with diabetic polyneuropathy (3) Osteomyelitis: CODE(S): M86.9 - Osteomyelitis, unspecified QUALIFIERS: Laterality: right Osteomyelitis location: foot Osteomyelitis type: other acute Qualified Code(s): M86.171 - Other acute osteomyelitis, right ankle and foot (4) Tobacco abuse: CODE(S): Z72.0 - Tobacco use (5) Venous insufficiency: CODE(S): I87.2 - Venous insufficiency (chronic) (peripheral) (6) Bilateral lower extremity edema: CODE(S): R60.0 - Localized edema (7) Charcot's joint, right ankle and foot: CODE(S): M14.671 - Charcot's joint, right ankle and foot PLAN: Patient seen and examined. His status change is noted and worsened now with increased ulcer size and depth Debridement was performed as noted in the clinical panel. Dressing update: Iodoform gauze packing or Betadine wet-to-dry gauze. To change daily Wash: Antibacterial soap and water. Avoid soaking. Infection: He does have a history of recurrent ulcers with infections and even osteomyelitis. He was previously seen by infectious disease. There are no local or systemic signs of illness today however his worsening status is a concern. To monitor for development of these signs and to call immediately if these are noted. Diagnostic data: I recommend updating his labs including CBC, CMP, ESR, C- reactive protein. Also recommend updating a foot x-ray and order was provided today. Patient to remain nonweightbearing to the right lower extremity. Use wheelchair or knee walker / roller. Patient is noted to also have gotten an electric scooter in order to offload his foot He is at risk for further amputation of foot or leg. He has a [place] walker ready at [employer] once healed. He relates this is no longer known at this time so I gave him a new prescription. I recommend [place] for nutritional supplementation to optimize healing. All questions answered. To follow-up 1 week. Note: [employer]or[employer] speech recognition dinner cook software was used to create portions of this document. Sound-alike and misspelled words, as well as other dinner cook errors may be contained in the documentation. The medical decision making level is moderate based on data including at least three of the following: review of prior external notes, review of a test, ordering a test, assessment requiring an independent historian. The medical decision making level is moderate. There is noted moderate risk of morbidity after considering this treatment plan and diagnostic data. Considera tions were given to prescription management, decisions regarding surgical options, or social determinants of health.
--- NOTE | 2021-10-06 10:24 | RAD_ITS ---
STUDY: X-RAY - RIGHT FOOT CLINICAL: Male, 51 years old. Foot ulcer. TECHNIQUE: 3 view(s) of the foot. COMPARISON: 07/25/2021. FINDINGS: Stable osteopenia. 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 Superior and inferior calcaneal spurs. Marked Charcot changes of the midfoot with flat foot deformity. Lisfranc fracture dislocation with lateral displacement of the second metatarsal. Stable partial resections of the fourth and fifth digits. Resection of the distal aspect of the proximal phalanx and the distal phalanx of the second toe, unchanged. Marked diffuse soft tissue swelling unchanged. RAD/Foot min 3 Views IMPRESSION: Stable foot with no new finding. See discussion above. Electronically Signed: Stephen Sepulveda MD at 11:18 EDT ,
[2021-10-06 10:49] LABS: Absolute Lymphocyte Count 1.28 X10^3/uL (0.83-4.51); Absolute Neutrophil Count 6.2 X10^3/uL (2.0-7.7); Basophil# 0.05 X10^3/uL; Basophil% 0.6 % (0-1); Eosinophil# 0.28 X10^3/uL; Eosinophils% 3.3 % (0-5); Hematocrit 42.1 % (40-54); Hemoglobin 13.9 g/dL (13.0-16.5); Lymphocyte # 1.28 X10^3/ul (0.83-4.51); Lymphocyte % 15.2 % (19-41); Mean Corpuscular Volume 81.9 fL (80-94); Mean Platelet Vol. 13.6 fl (6.2-12.0); Monocyte# 0.53 X10^3/uL; Monocyte% 6.3 % (0-10); NRBC Flagged by Analyzer 0 % (0-5); Neutrophil # 6.22 X10^3/uL (2.7-7.7); Neutrophil % 73.7 % (47-70); POSITIVE COUNT YES; Platelet Count 85 K/mm3 (150-450); RBC Distribution Width CV 15.6 % (11.6-14.6); RBC Distribution Width SD 46.5 fl (35.1-43.9); Red Blood Count 5.14 M/mm3 (4.6-6.2); White Blood Count 8.4 K/mm3 (4.4-11.0)
[2021-10-06 10:58] LABS: Differential Indicated SCAN CRITERIA MET
[2021-10-06 11:24] LABS: ALB/GLOB Ratio 0.6 RATIO (0.9-2.4); AST(SGOT) 18 U/L (15-37); Alanine Aminotransfer ALT/SGPT 20 U/L (16-61); Alkaline Phosphatase 74 U/L (45-117); Anion Gap 5 (5-15); BUN 11 mg/dL (7-18); BUN/Creat Ratio 12.5 RATIO (10-20); Calcium,Total 8.5 mg/dL (8.5-10.1); Chloride 101 mmol/L (98-107); Creatinine, Serum 0.88 mg/dL (0.70-1.30); EST Glomerular Filtration Rate 97 mL/min (>60); Est Glom Filt Rate - Afr Amer 118 mL/min (>60); Globulin 4.8 g/dL (2.2-4.2); Glucose 185 mg/dL (74-106); Protein, Total 7.8 g/dL (6.4-8.2); Sodium Level 136 mmol/L (136-145)
[2021-10-06 11:40] LABS: Erythrocyte Sedimentation Rate 66 mm/hr (0-20)
[2021-10-06 12:05] LABS: Platelet Estimate MOD DEC (ADEQ); Red Cell Morphology NORM C+C NORMAL (NORM C&C)
[2021-10-08 15:02] VITALS: BP 162/88; PULSE 99; RESP 18; BMI 47.7
--- NOTE | 2021-10-08 16:00 | PN.PCM_ITS ---
History of Present Illness Date of Service: 10/08/21 Chief Complaint: right ulcer to the bottom of the foot History of Wound: Patient is a 51-year-old male who presents to the wound care center for follow-up complicated right foot ulcers with history of Charcot and osteomyelitis history. He denies redness or odor, fever, chills, nausea or vomiting today. The onset of this recent plantar foot ulcer was July 25, 2021. He denies odor or redness. He reports increased drainage. He has been consistent with offloading with a knee roller. He denies redness or streaking to the leg. He denies odors and his drainage has decreased. He had labs and xrays completed and would like to review the results today. Progress of Wound: stabilized and improving Objective Data Objective Data Vital Signs: Vital Signs Temp Pulse Resp BP 97.9 F 99 18 162/88 H 10/01/21 14:26 10/08/21 15:02 10/08/21 15:02 10/08/21 15:02 Oxygen Delivery Method Room Air Body Mass Index (BMI) 47.7 Lab / Micro Data Result Diagrams: 10/06/21 09:53 10/06/21 09:53 Physical Exam Narrative Const alert and oriented x3 General Appearance: cooperative HEENT normocephalic Extremity Extremity Narrative: No calf tenderness Diminished pulses Compartments remain soft to palpate right lower extremity General Extremity: edema especially to right lower extremity. No tenderness to palpation of joints or extremities; Negative for cyanosis. No gross laxity crepitus or pain with attempted passive manipulation of the midfoot at his prior Charcot site. Skin Skin Narrative: Serosanguineous mild/decreased drainage noted from plantar foot. There is no malodor noted today. deep tissue probing noted and increased. This is granulation tissue noted upon debridement with reduced depth of the deep tunnel to the midfoot and not directly to bone. There is no purulence or maceration. No bogginess or fluctuance on palpation. No deep probing or odor noted General Skin Exam: Negative for erythema MSK Muscle wasting noted Charcot foot with rocker-bottom deformity and fourth and fifth ray resection right. Partial second toe amputation. No new laxity of the midfoot noted Neuro Neuro Narrative: lack of normal epicritic sensation via light touch is consistent with neuropathy status Psych cooperative and affect normal Debridement Note Debridement Note Wound debrided: plantar right foot Wound Grade/Stage: 1 Type of Debridement: Excisional debridement Anesthesia Used: 4% Lidocaine Solution Depth: in the subcutaneous layer Percentage of wound debrided: 100 Instrument Used: #15 blade Tissue Removed: fibrous, devitalized subcutaneous, biofilm, slough Severity: Fat Layer Exposed Amount of bleeding with debridement: Mild Bleeding Controlled with: Pressure Patient tolerated procedure: Patient tolerated procedure well Post-Debridement Measurements and Additional Note: Post-Debridement Measurements/Treatment - Nurse 1 - General Ulcer Assessment Start: 09/10/21 13:44 Freq: Status: Active Protocol: [employer] Activity Type Activity Date Activity User E-Sign Co-Sign Detail Recorded Client Recorded Date Recorded By Document 09/10/21 13:47 DL [id number] 09/10/21 13:54 DL Document 09/17/21 08:37 RB [id number] 09/17/21 08:39 RB Document 10/01/21 14:26 [facility] [id number] 10/01/21 14:36 [facility] Document 10/08/21 15:02 [facility] [id number] 10/08/21 15:08 F 09/10/21 09/17/21 10/01/21 13:47 08:37 14:26 - Today's Visit Information Type of service Follow-up Visit Follow-up Visit Follow-up Visit (Physician/CENTER DIRECTOR (Physician/CENTER DIRECTOR (Physician/CENTER DIRECTOR ) ) ) Arrival Mode Ambulatory, Ambulatory Ambulatory, Walker Walker Arrival Mode (Other) KNEE WALKER Transfer Assistance None None None Patient Identification Verified (Name & Yes Yes Yes ) Patient Requires Transmission-Based No Precautions Finger Stick Blood Sugar(mg/dl) (if 134 127 indicated): Blood Sugar Stated by Stated by Patient Patient Height and Weight Body Mass Index (BMI) 47.7 47.7 47.7 BMI Classification Obese Obese Obese Vital Signs Temperature (97.8 F-99.1 F) 97.2 F L 97.7 F L 97.9 F Temperature Source Temporal Temporal Temporal Pulse Rate (60-100) 113 H 90 100 Pulse Location Monitor Monitor Monitor Respiratory Rate (12-18) 20 H 18 18 Respiratory rate source Observation Observation Observation Oxygen Delivery Method Room Air Blood Pressure (90/60-120/80) 149/86 H 161/84 H 175/94 H Blood Pressure Mean (mm Hg) 107 109 121 Source Monitor Monitor Monitor Position Semi-Fowlers Sitting Blood Pressure Location Left Arm Right Forearm History Since Last Visit- (Skip if this is Patient's initial visit) Have you changed medications since your No No No last visit? Any new allergies or adverse reactions No No No Had a fall/change in ADL's that may No No No increase risk of falls Signs or symptoms of abuse and/or No No No neglect since last visit Have you been in the hospital since your No No No last visit? Has dressing in place as prescribed Yes Yes Yes Has compression in place as prescribed Yes Yes Yes Has offloadiing in place as prescribed Yes No Yes Experienced any changes in pain level or No No No management Left Footwear Regular Shoe Regular Shoe Regular Shoe Right Footwear No Footwear Regular Shoe Other Footwear (Comment) Other Footwear JENS ONLY TO RT FOOT Pain Scale: 0-10 Numeric Is Patient Pain Free? Yes Yes Yes 10/08/21 15:02 WC - Today's Visit Information Type of service Follow-up Visit (Physician/CENTER DIRECTOR ) Arrival Mode Ambulatory, Walker Arrival Mode (Other) Transfer Assistance None Patient Identification Verified (Name & Yes ) Patient Requires Transmission-Based No Precautions Finger Stick Blood Sugar(mg/dl) (if indicated): Blood Sugar Height and Weight Body Mass Index (BMI) 47.7 BMI Classification Obese Vital Signs Temperature (97.8 F-99.1 F) Temperature Source Pulse Rate (60-100) 99 Pulse Location Monitor Respiratory Rate (12-18) 18 Respiratory rate source Observation Oxygen Delivery Method Room Air Blood Pressure (90/60-120/80) 162/88 H Blood Pressure Mean (mm Hg) 112 Source Monitor Position Sitting Blood Pressure Location Right Forearm History Since Last Visit- (Skip if this is Patient's initial visit) Have you changed medications since your No last visit? Any new allergies or adverse reactions No Had a fall/change in ADL's that may No increase risk of falls Signs or symptoms of abuse and/or No neglect since last visit Have you been in the hospital since your No last visit? Has dressing in place as prescribed Yes Has compression in place as prescribed Yes Has offloadiing in place as prescribed Yes Experienced any changes in pain level or No management Left Footwear Regular Shoe Right Footwear Other Footwear (Comment) Other Footwear R JENS WRAP Pain Scale: 0-10 Numeric Is Patient Pain Free? Yes WC - Nurse 1 - General Ulcer Measurement Start: 09/10/21 13:44 Freq: Status: Active Protocol: Activity Type Activity Date Activity User E-Sign Co-Sign Detail Recorded Client Recorded Date Recorded By Document 09/10/21 13:47 DL [id number] 09/10/21 13:54 DL Document 09/17/21 08:37 RB [id number] 09/17/21 08:39 RB Document 10/01/21 14:26 BMF [id number] 10/01/21 14:36 BMF Document 10/08/21 15:02 BMF [id number] 10/08/21 15:08 BMF 09/10/21 09/17/21 10/01/21 13:47 08:37 14:26 Wound Center Nurse 1 #9 R Plantar -Combined with other wound No No -Current Size (cm) - Length 0.1 0.1 0.1 -Current Size (cm) - Width 0.1 0.1 0.1 -Current Size (cm) - Depth 0.1 0.1 0.1 -Total Square Cm 0.01 0.01 0.01 -Date of Last Picture (Recall this 10/01/21 field) -Photo Taken No Yes -Epithelialization None Present -Tunneling No No -Undermining/Tunneling No No -Circular Undermining No No -Exudate Amt None Present None Present Large -Exudate Type Sanguineous -Wound Margin Thickened Distinct, Distinct, Outline Outline Attached Attached -Granulation Amt Large (67-100%) Large (67-100%) -Granulation Quality Pale [place] -Slough/Fibrin Yes -Necrosis Amt Large (67-100%) None Present (0 %) -Necrotic Tissue Type Adherent Slough Adherent Slough -Structure Exposed N/A N/A -Texture (Michelle-wound Skin Appearance) Callus,Scarring Assessed,Callus Assessed, Scarring -Moisture (Michelle-wound Skin Appearance) Dry/Scaly Assessed Assessed, Maceration -Color (Michelle-wound Skin Appearance) No Abnormality Assessed Assessed,Palor -Temperature (Michelle-wound Skin No Abnormality No Abnormality No Abnormality Appearance) (Pt Warm) (Pt Warm) (Pt Warm) -Tenderness on Palpation (Michelle-wound No No No Skin Appearance) -Ulcer Cleansing Rinsed/ Rinsed/ Soap and Water Irrigated with Irrigated with Saline Saline -Foul Odor after Cleansing No No No -Anesthetic Used 4% Lidocaine 5% Lidocaine 5% Lidocaine Solution Gel Gel -Wound Comment(s) LOOKS LIKE A BLISTER THAT'S DRAINED Right Calf (cm) 48.5 Right Ankle (cm) 29.5 10/08/21 15:02 Wound Center Nurse 1 #9 R Plantar -Combined with other wound No -Current Size (cm) - Length 1.1 -Current Size (cm) - Width 1.7 -Current Size (cm) - Depth 0.9 -Total Square Cm 1.87 -Date of Last Picture (Recall this 10/08/21 field) -Photo Taken Yes -Epithelialization Small 1-33% -Tunneling No -Undermining/Tunneling No -Circular Undermining No -Exudate Amt Large -Exudate Type Serosanguineous -Wound Margin Distinct, Outline Attached -Granulation Amt Medium (34-66%) -Granulation Quality Red -Slough/Fibrin Yes -Necrosis Amt Medium (34-66%) -Necrotic Tissue Type Adherent Slough -Structure Exposed -Texture (Michelle-wound Skin Appearance) Assessed, Scarring -Moisture (Michelle-wound Skin Appearance) Assessed, Maceration -Color (Michelle-wound Skin Appearance) Assessed,Palor -Temperature (Michelle-wound Skin No Abnormality Appearance) (Pt Warm) -Tenderness on Palpation (Michelle-wound No Skin Appearance) -Ulcer Cleansing Soap and Water -Foul Odor after Cleansing No -Anesthetic Used 5% Lidocaine Gel -Wound Comment(s) Right Calf (cm) Right Ankle (cm) WC - Nurse 2 - General Ulcer CM Notes Start: 09/10/21 13:44 Freq: Status: Active Protocol: Activity Type Activity Date Activity User E-Sign Co-Sign Detail Recorded Client Recorded Date Recorded By Document 09/10/21 14:22 JERSON [id number] 09/10/21 14:24 Document 09/17/21 08:56 JERSON [id number] 09/17/21 08:57 Document 10/01/21 14:43 [id number] 10/01/21 14:48 JF Document 10/08/21 15:16 [id number] 10/08/21 15:19 09/10/21 09/17/21 10/01/21 14:22 08:56 14:43 Wound Center Nurse 2 #9 R Plantar -Time 14:23 08:56 14:47 -Correct Patient Yes Yes Yes -Correct Side, Site, Position Yes Yes Yes -Correct Procedure Yes Yes Yes -Procedure Performed Yes Yes Yes -Type of Procedure Debridement Debridement Debridement -Clinical Debridement Epidermis / Subcutaneous Subcutaneous Dermis -Tissue Removed Epidermis Subcutaneous Subcutaneous -Post Debridement (cm) - Length 0.1 0.4 1.5 -Post Debridement (cm) - Width 0.1 0.5 2.3 -Post Debridement (cm) - Depth 0.1 0.2 2.7 -Total Square (Post) (cm) 0.01 0.20 3.45 -Area of Debridement (cm) - Length 0.1 0.4 1.5 -Area of Debridement (cm) - Width 0.1 0.5 2.3 -Total Square (Area) (cm) 0.01 0.20 3.45 -Tunneling No No No -Undermining/Tunneling No No No -Circular Undermining No No No -Wound/Ulcer Outcome Not Healed Not Healed Not Healed -Ulcer Cleansing Rinsed/ Rinsed/ Rinsed/ Irrigated with Irrigated with Irrigated with Saline Saline Saline -Foul Odor after Cleansing No No No -Bioengineered Tissue No No No -Bleeding Controlled with Pressure Pressure Pressure -Treatment Response Procedure Procedure Procedure Tolerated Well Tolerated Well Tolerated Well -Offloading Yes Yes Yes -Type of Offloading Surgical Shoe Knee Walker Darco Shoe - Left -Debridement - Open, 1st 20sq cm Yes -Debridement - Subq, 1st 20sq cm Yes Yes Pain Scale: 0-10 Numeric Is Patient Pain Free? Yes Yes Yes 10/08/21 15:16 Wound Center Nurse 2 #9 R Plantar -Time 15:17 -Correct Patient Yes -Correct Side, Site, Position Yes -Correct Procedure Yes -Procedure Performed Yes -Type of Procedure Debridement -Clinical Debridement Subcutaneous -Tissue Removed Subcutaneous -Post Debridement (cm) - Length 1.2 -Post Debridement (cm) - Width 1.7 -Post Debridement (cm) - Depth 2.9 -Total Square (Post) (cm) 2.04 -Area of Debridement (cm) - Length 1.2 -Area of Debridement (cm) - Width 1.7 -Total Square (Area) (cm) 2.04 -Tunneling No -Undermining/Tunneling No -Circular Undermining No -Wound/Ulcer Outcome Not Healed -Ulcer Cleansing Rinsed/ Irrigated with Saline -Foul Odor after Cleansing No -Bioengineered Tissue No -Bleeding Controlled with Pressure -Treatment Response Procedure Tolerated Well -Offloading Yes -Type of Offloading Knee Walker -Debridement - Open, 1st 20sq cm -Debridement - Subq, 1st 20sq cm Yes Pain Scale: 0-10 Numeric Is Patient Pain Free? Yes - Nurse 3 - General Ulcer D/C NN Start: 09/10/21 13:44 Freq: Status: Active Protocol: Activity Type Activity Date Activity User E-Sign Co-Sign Detail Recorded Client Recorded Date Recorded By Document 09/10/21 14:27 [facility] [id number] 09/10/21 14:28 [facility] Document 09/17/21 09:01 [id number] 09/17/21 09:02 Document 10/01/21 14:55 [facility] [id number] 10/01/21 14:56 [facility] Document 10/08/21 15:25 [facility] [id number] 10/08/21 15:26 [facility] 09/10/21 09/17/21 10/01/21 14:27 09:01 14:55 Wound Care Nurse 3 #9 R Plantar -Ulcer Cleansing Rinsed/ Rinsed/ Rinsed/ Irrigated with Irrigated with Irrigated with Saline Saline Saline -Foul Odor after Cleansing No No No -Primary Dressing Applied Other C Hydrogel ($) Nugauze, Iodoform -Other Dressing HYDROGEL DRSG PER RB RN -Primary Dressing Covered/Secured with Dry Gauze, Dry Gauze, Dry Gauze & Secured with Secured with Roll Gauze, Tape Tape Secured with Tape,Other -Other Covering DRSG PER RB RN ABD -Nugauze, Iodoform 07/15 1 Right -Compression Wrap Jens Wrap Jens Wrap Jens Wrap -Other Treatment Response Procedure Procedure Tolerated Well Tolerated Well Pain Scale: 0-10 Numeric Is Patient Pain Free? Yes Yes Yes WC - Visit Discharge Discharge Condition Stable Stable Stable Ambulatory Status Ambulatory, Walker Ambulatory, Walker Walker Transportation [employer] [facility] Accompanied by Medication Reconcilliation completed & Yes provided to patient/care provider Clinical Summary of Care Provided Yes Notes: KNEE WALKER Facility Type [facility] 10/08/21 15:25 Wound Care Nurse 3 #9 R Plantar -Ulcer Cleansing Rinsed/ Irrigated with Saline -Foul Odor after Cleansing No -Primary Dressing Applied Nugauze, Iodoform -Other Dressing -Primary Dressing Covered/Secured with Dry Gauze & Roll Gauze, Secured with Tape -Other Covering ABD -Nugauze, Iodoform / 1 Right -Compression Wrap Jens Wrap -Other JENS TO SECURE DSG Treatment Response Procedure Tolerated Well Pain Scale: 0-10 Numeric Is Patient Pain Free? Yes WC - Visit Discharge Discharge Condition Stable Ambulatory Status Ambulatory, Walker Transportation Accompanied by KNEE WALKER Medication Reconcilliation completed & provided to patient/care provider Clinical Summary of Care Provided Notes: Facility Type Assessment/Plan Assessment/Plan (1) Non-pressure chronic ulcer of other part of right foot with fat layer exposed: CODE(S): L97.512 - Non-pressure chronic ulcer of other part of right foot with fat layer exposed (2) Type 2 diabetes mellitus with diabetic polyneuropathy: CODE(S): E11.42 - Type 2 diabetes mellitus with diabetic polyneuropathy QUALIFIERS: Diabetes mellitus adjunct faculty for medical terminology insulin use: unspecified adjunct faculty for medical terminology insulin use status Qualified Code(s): E11.42 - Type 2 diabetes mellitus with diabetic polyneuropathy (3) Osteomyelitis: CODE(S): M86.9 - Osteomyelitis, unspecified QUALIFIERS: Laterality: right Osteomyelitis location: foot Osteomyelitis type: other acute Qualified Code(s): M86.171 - Other acute osteomyelitis, right ankle and foot (4) Tobacco abuse: CODE(S): Z72.0 - Tobacco use (5) Venous insufficiency: CODE(S): I87.2 - Venous insufficiency (chronic) (peripheral) (6) Bilateral lower extremity edema: CODE(S): R60.0 - Localized edema (7) Charcot's joint, right ankle and foot: CODE(S): M14.671 - Charcot's joint, right ankle and foot PLAN: Patient seen and examined. His status has stabilized. Debridement was performed as noted in the clinical panel. Dressings: Iodoform gauze packing or Betadine wet-to-dry gauze. To change daily Wash: Antibacterial soap and water. Avoid soaking. Infection: He does have a history of recurrent ulcers with infections and even osteomyelitis. He was previously seen by infectious disease. There are no local or systemic signs of illness today however his worsening status is a concern. To monitor for development of these signs and to call immediately if these are noted. Diagnostic data: I recommend updating his labs including CBC, CMP, ESR, C- reactive protein. Also recommend updating a foot x-ray. He obtained three foot xrays on 10/06/21 which was stable without acute findings. No soft tissue emphysema, foreign body, fractures noted. there is charcot midfoot with dislocations and coalesced fragmentation. Labs from 10/06/21 with wbc 8.4, esr 66, crp, 31.60, est gfr 97. Patient to remain nonweightbearing to the right lower extremity. Use wheelchair or knee walker / roller. Patient is noted to also have gotten an electric scooter in order to offload his foot He is at risk for further amputation of foot or leg. He has a STEBBINS walker ready at [facility] once healed. He relates this is no longer known at this time so I gave him a new prescription. I recommend [place] for nutritional supplementation to optimize healing. All questions answered. To follow-up 1 week. Note: [employer] speech recognition blasting worker software was used to create portions of this document. Sound-alike and misspelled words, as well as other blasting worker errors may be contained in the documentation. 21 minutes was spent on this encounter. This included face to face and non face to face care including preparing for the visit, reviewing the history, performing the exam, counseling and providing education to the patient, family, or caregiver, ordering medications/test/ procedures if indicated as documented, communicating with other healthcare providers, documenting information in the medical record, interpreting / sharing this information when indicated as documented, and care coordination
== END 2021-10-09 23:59 | disposition home or self-care (01) ==
LOC: WC 15:15
PROVIDERS: PCP Internal Medicine; Referring Provider Podiatrist Foot & Ankle Surgery; Visit Provider Podiatrist
DX: E11.621 Type 2 diabetes mellitus with foot ulcer (principal); L97.512 Non-pressure chronic ulcer of other part of right foot with fat layer exposed; M86.171 Other acute osteomyelitis, right ankle and foot; E11.59 Type 2 diabetes mellitus with other circulatory complications; E11.610 Type 2 diabetes mellitus with diabetic neuropathic arthropathy; E11.42 Type 2 diabetes mellitus with diabetic polyneuropathy; Z79.4 Long term (current) use of insulin; Z72.0 Tobacco use; I87.2 Venous insufficiency (chronic) (peripheral); Z60.9 Problem related to social environment, unspecified; R60.0 Localized edema; M14.671 Charcot's joint, right ankle and foot
CPT/HCPCS: 11042; 36415; 73630; 80053; 85025; 85652; 86140; 97597

== ENCOUNTER 2021-11-05 14:30 | Outpatient (RCR) | payer MEDICAID, SELFPAY ==
[2021-10-10 00:31] VITALS: BP 162/88; PULSE 99; RESP 18; TEMP 36.6; BMI 47.7
[2021-10-15 14:23] VITALS: BP 174/92; PULSE 103; RESP 16; TEMP 36.3; BMI 47.7
--- NOTE | 2021-10-15 15:55 | PCM.WC.PN ---
History of Present Illness Date of Service: 10/15/21 Chief Complaint: right ulcer to the bottom of the foot History of Wound: Patient is a 51-year-old male who presents to the wound care center for follow-up complicated right foot ulcers with history of Charcot and osteomyelitis history. He denies redness or odor, fever, chills, nausea or vomiting today. The onset of this recent plantar foot ulcer was July 25, 2021. He denies odor or redness. He reports increased drainage. He has been consistent with offloading with a knee roller. He denies redness or streaking to the leg. He denies odors and his drainage has decreased. Progress of Wound: improving Objective Data Objective Data Vital Signs: Vital Signs Temp Pulse Resp BP 97.4 F L 103 H 16 174/92 H 10/15/21 14:23 10/15/21 14:23 10/15/21 14:23 10/15/21 14:23 Oxygen Delivery Method Room Air Body Mass Index (BMI) 47.7 Physical Exam Narrative Const alert and oriented x3 General Appearance: cooperative HEENT normocephalic Extremity Extremity Narrative: No calf tenderness Diminished pulses Compartments remain soft to palpate right lower extremity General Extremity: edema especially to right lower extremity. No tenderness to palpation of joints or extremities; Negative for cyanosis. No gross laxity crepitus or pain with attempted passive manipulation of the midfoot at his prior Charcot site. Skin Skin Narrative: Serosanguineous mild/decreased drainage noted from plantar foot. There is no malodor noted today. deep tissue probing noted and increased. This is granulation tissue noted upon debridement with reduced depth of the deep tunnel to the midfoot and not directly to bone. There is no purulence or maceration. No bogginess or fluctuance on palpation. No deep probing or odor noted Full epithelialization at hallux. General Skin Exam: Negative for erythema MSK Muscle wasting noted Charcot foot with rocker-bottom deformity and fourth and fifth ray resection right. Partial second toe amputation. No new laxity of the midfoot noted Neuro Neuro Narrative: lack of normal epicritic sensation via light touch is consistent with neuropathy status Psych cooperative and affect normal Debridement Note Debridement Note Wound debrided: Plantar right foot Wound Grade/Stage: 1 Type of Debridement: Excisional debridement Anesthesia Used: 4% Lidocaine Solution Depth: in the subcutaneous layer Percentage of wound debrided: 100 Instrument Used: #15 blade Tissue Removed: fibrous, devitalized subcutaneous, biofilm, slough Severity: Fat Layer Exposed Amount of bleeding with debridement: Mild Bleeding Controlled with: Pressure Patient tolerated procedure: Patient tolerated procedure well Post-Debridement Measurements and Additional Note: Post-Debridement Measurements/Treatment WC - Nurse 1 - General Ulcer Assessment Start: 10/15/21 14:23 Freq: Status: Active Protocol: NIGEL Activity Type Activity Date Activity User E-Sign Co-Sign Detail Recorded Client Recorded Date Recorded By Document 10/15/21 14:23 [id number] 10/15/21 14:27 MW 10/15/21 14:23 WC - Today's Visit Information Type of service Follow-up Visit (Physician/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 GENERAL 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 ) Arrival Mode Ambulatory, Walker Transfer Assistance None Accompanied by SELF Patient Identification Verified (Name & Yes ) Patient Requires Transmission-Based No Precautions Safety Precautions Fall Prevention Finger Stick Blood Sugar(mg/dl) (if 134 indicated): Blood Sugar Stated by Patient Height and Weight Body Mass Index (BMI) 47.7 BMI Classification Obese Vital Signs Temperature (97.8 F-99.1 F) 97.4 F L Temperature Source Temporal Pulse Rate (60-100) 103 H Pulse Location Monitor Respiratory Rate (12-18) 16 Respiratory rate source Observation Oxygen Delivery Method Room Air Blood Pressure (90/60-120/80) 174/92 H Blood Pressure Mean (mm Hg) 119 Source Monitor Position Sitting Blood Pressure Location Right Forearm History Since Last Visit- (Skip if this is Patient's initial visit) Have you changed medications since your No last visit? Any new allergies or adverse reactions No Had a fall/change in ADL's that may No increase risk of falls Signs or symptoms of abuse and/or No neglect since last visit Have you been in the hospital since your No last visit? Has dressing in place as prescribed Yes Has compression in place as prescribed Yes Has offloadiing in place as prescribed N/A Experienced any changes in pain level or No management Left Footwear Regular Shoe Right Footwear Other Footwear (Comment) Other Footwear ADIN WRAP Pain Scale: 0-10 Numeric Is Patient Pain Free? Yes SANDEEP - Nurse 1 - General Ulcer Measurement Start: 10/15/21 14:23 Freq: Status: Active Protocol: Activity Type Activity Date Activity User E-Sign Co-Sign Detail Recorded Client Recorded Date Recorded By Document 10/15/21 14:23 MW [id number] 10/15/21 14:27 MW 10/15/21 14:23 Wound Center Nurse 1 #9 R Plantar -Combined with other wound No -Current Size (cm) - Length 0.8 -Current Size (cm) - Width 1.1 -Current Size (cm) - Depth 3.1 -Total Square Cm 0.88 -Photo Taken No -Epithelialization None Present -Tunneling No -Undermining/Tunneling No -Circular Undermining No -Exudate Amt Medium -Exudate Type Serosanguineous -Wound Margin Distinct, Outline Attached -Granulation Amt Large (67-100%) -Granulation Quality Red -Slough/Fibrin Yes -Necrosis Amt Small (1-33%) -Necrotic Tissue Type Adherent Slough -Structure Exposed N/A -Texture (Michelle-wound Skin Appearance) No Abnormality, Assessed -Moisture (Michelle-wound Skin Appearance) Assessed, Maceration -Color (Michelle-wound Skin Appearance) No Abnormality, Assessed -Temperature (Michelle-wound Skin No Abnormality Appearance) (Pt Warm) -Tenderness on Palpation (Michelle-wound Yes Skin Appearance) -Ulcer Cleansing Soap and Water -Foul Odor after Cleansing No -Anesthetic Used 5% Lidocaine Gel Lower Limb Edema Present No WC - Nurse 2 - General Ulcer CM Notes Start: 10/15/21 14:23 Freq: Status: Active Protocol: Activity Type Activity Date Activity User E-Sign Co-Sign Detail Recorded Client Recorded Date Recorded By Document 10/15/21 14:35 [id number] 10/15/21 14:40 10/15/21 14:35 Wound Center Nurse 2 #9 R Plantar -Time 14:39 -Correct Patient Yes -Correct Side, Site, Position Yes -Correct Procedure Yes -Procedure Performed Yes -Type of Procedure Debridement -Clinical Debridement Subcutaneous -Tissue Removed Subcutaneous -Post Debridement (cm) - Length 1.1 -Post Debridement (cm) - Width 1.3 -Post Debridement (cm) - Depth 2.5 -Total Square (Post) (cm) 1.43 -Area of Debridement (cm) - Length 1.1 -Area of Debridement (cm) - Width 1.3 -Total Square (Area) (cm) 1.43 -Tunneling No -Undermining/Tunneling No -Circular Undermining No -Wound/Ulcer Outcome Not Healed -Ulcer Cleansing Rinsed/ Irrigated with Saline -Foul Odor after Cleansing No -Bioengineered Tissue No -Bleeding Controlled with Pressure -Treatment Response Procedure Tolerated Well -Offloading Yes -Type of Offloading Total Contact Cast (TCC) - Right ($) -Debridement - Subq, 1st 20sq cm Yes Pain Scale: 0-10 Numeric Is Patient Pain Free? Yes - Nurse 3 - General Ulcer D/C NN Start: 10/15/21 14:23 Freq: Status: Active Protocol: Activity Type Activity Date Activity User E-Sign Co-Sign Detail Recorded Client Recorded Date Recorded By Document 10/15/21 14:49 [facility] [id number] 10/15/21 14:50 [facility] 10/15/21 14:49 Wound Care Nurse 3 #9 R Plantar -Ulcer Cleansing Rinsed/ Irrigated with Saline -Foul Odor after Cleansing No -Primary Dressing Applied Aquacel AG 2x2 -Other Dressing XTRASORB; TCC UNDERCAST AND DRSG PER DL CENTRAL SERVICE TECHNICIAN -Aquacel AG 2x2 1 Treatment Response Procedure Tolerated Well Pain Scale: 0-10 Numeric Is Patient Pain Free? Yes - Visit Discharge Discharge Condition Stable Ambulatory Status Ambulatory, Walker Transportation [facility] TRANSP[facility] Facility Type Home Health Assessment/Plan Assessment/Plan (1) Non-pressure chronic ulcer of other part of right foot with fat layer exposed: CODE(S): L97.512 - Non-pressure chronic ulcer of other part of right foot with fat layer exposed (2) Type 2 diabetes mellitus with diabetic polyneuropathy: CODE(S): E11.42 - Type 2 diabetes mellitus with diabetic polyneuropathy QUALIFIERS: Diabetes mellitus jail insulin use: unspecified jail insulin use status Qualified Code(s): E11.42 - Type 2 diabetes mellitus with diabetic polyneuropathy (3) Osteomyelitis: CODE(S): M86.9 - Osteomyelitis, unspecified QUALIFIERS: Osteomyelitis type: other acute Osteomyelitis location: foot Laterality: right Qualified Code(s): M86.171 - Other acute osteomyelitis, right ankle and foot (4) Tobacco abuse: CODE(S): Z72.0 - Tobacco use (5) Venous insufficiency: CODE(S): I87.2 - Venous insufficiency (chronic) (peripheral) (6) Bilateral lower extremity edema: CODE(S): R60.0 - Localized edema (7) Charcot's joint, right ankle and foot: CODE(S): M14.671 - Charcot's joint, right ankle and foot PLAN: Patient seen and examined. His status has stabilized. Debridement was performed as noted in the clinical panel. Dressings: Aquacel Ag and secondary gauze dressing was applied prior to total contact cast application Infection: He does have a history of recurrent ulcers with infections and even osteomyelitis. He was previously seen by infectious disease. There are no local or systemic signs of illness today however his worsening status is a concern. To monitor for development of these signs and to call immediately if these are noted. Diagnostic data: I recommend updating his labs including CBC, CMP, ESR, C-reactive protein. Also recommend updating a foot x-ray. He obtained three foot xrays on 10/06/21 which was stable without acute findings. No soft tissue emphysema, foreign body, fractures noted. there is charcot midfoot with dislocations and coalesced fragmentation. Labs from 10/06/21 with wbc 8.4, esr 66, crp, 31.60, est gfr 97. Patient to remain nonweightbearing to the right lower extremity. Use wheelchair or knee walker / roller. Patient is noted to also have gotten an electric scooter in order to offload his foot He is at risk for further amputation of foot or leg. He has a [employer] walker ready at [employer] once healed. He relates this is no longer known at this time so I gave him a new prescription previously. The benefits and indications and anticipated management of application of a total contact cast was reviewed in detail. I recommend this. He is amendable. Verbal consent was obtained. This was applied according standard protocol in a well-padded manner with the limb in a rectus position. He tolerated this well. I recommend Glen for nutritional supplementation to optimize healing. All questions answered. To follow-up 1 week. Note: [employer] speech recognition knitting supervisor software was used to create portions of this document. Sound-alike and misspelled words, as well as other knitting supervisor errors may be contained in the documentation.
[2021-10-21 13:26] VITALS: BP 171/91; PULSE 101; TEMP 36.2; BMI 47.7
--- NOTE | 2021-10-21 13:41 | PCM.WC.PN ---
History of Present Illness Date of Service: 10/21/21 Chief Complaint: right ulcer to the bottom of the foot History of Wound: Patient is a 51-year-old male who presents to the wound care center for follow-up complicated right foot ulcers with history of Charcot and osteomyelitis history. He denies redness or odor, fever, chills, nausea or vomiting today. The onset of this recent plantar foot ulcer was July 25, 2021. He denies odor or redness. He reports increased drainage. He has been consistent with offloading with a knee roller. He denies redness or streaking to the leg. He denies odors. He tolerated the total contact cast well. His leg swelling has decreased. Progress of Wound: improving Objective Data Objective Data Vital Signs: Vital Signs Temp Pulse Resp BP 97.2 F L 101 H 16 171/91 H 10/21/21 13:26 10/21/21 13:26 10/15/21 14:23 10/21/21 13:26 Oxygen Delivery Method Room Air Body Mass Index (BMI) 47.7 Physical Exam Narrative Const alert and oriented x3 General Appearance: cooperative HEENT normocephalic Extremity Extremity Narrative: No calf tenderness Diminished pulses Compartments remain soft to palpate right lower extremity General Extremity: edema especially to right lower extremity. No tenderness to palpation of joints or extremities; Negative for cyanosis. No gross laxity crepitus or pain with attempted passive manipulation of the midfoot at his prior Charcot site. Skin Skin Narrative: Serosanguineous mild/decreased drainage noted from plantar foot. There is no malodor noted today. deep tissue probing noted and increased. This is granulation tissue noted upon debridement with continued depth of the deep tunnel to the midfoot and not directly to bone. There is no purulence or maceration. No bogginess or fluctuance on palpation. No deep probing or odor noted Full epithelialization at hallux. General Skin Exam: Negative for erythema MSK Muscle wasting noted Charcot foot with rocker-bottom deformity and fourth and fifth ray resection right. Partial second toe amputation. No new laxity of the midfoot noted Neuro Neuro Narrative: lack of normal epicritic sensation via light touch is consistent with neuropathy status Psych cooperative and affect normal Debridement Note Debridement Note Wound debrided: right Wound Grade/Stage: 1 Type of Debridement: Excisional debridement Anesthesia Used: 4% Lidocaine Solution Depth: in the subcutaneous layer Percentage of wound debrided: 100 Instrument Used: 3mm curette, #15 blade and - (2[employer] ultrasound debrider setting 7) Tissue Removed: fibrous, devitalized subcutaneous, biofilm, slough Severity: Fat Layer Exposed Amount of bleeding with debridement: Mild Bleeding Controlled with: Pressure Patient tolerated procedure: Patient tolerated procedure well Post-Debridement Measurements and Additional Note: Post-Debridement Measurements/Treatment WC - Nurse 1 - General Ulcer Assessment Start: 10/15/21 14:23 Freq: Status: Active Protocol: NIGEL Activity Type Activity Date Activity User E-Sign Co-Sign Detail Recorded Client Recorded Date Recorded By Document 10/15/21 14:23 MW [id number] 10/15/21 14:27 MW Document 10/21/21 13:26 [place] [id number] 10/21/21 13:28 [place] 10/15/21 10/21/21 14:23 13:26 - Today's Visit Information Type of service Follow-up Visit Follow-up Visit (Physician/NAPHTHALENE STILL OPERATOR (Physician/NAPHTHALENE STILL OPERATOR ) ) Arrival Mode Ambulatory, Walker Walker Arrival Mode (Other) knee Transfer Assistance None Accompanied by SELF Patient Identification Verified (Name & Yes Yes ) Patient Requires Transmission-Based No No Precautions Safety Precautions Fall Prevention Finger Stick Blood Sugar(mg/dl) (if 134 indicated): Blood Sugar Stated by Patient Height and Weight Body Mass Index (BMI) 47.7 47.7 BMI Classification Obese Obese Vital Signs Temperature (97.8 F-99.1 F) 97.4 F L 97.2 F L Temperature Source Temporal Temporal Pulse Rate (60-100) 103 H 101 H Pulse Location Monitor Monitor Respiratory Rate (12-18) 16 Respiratory rate source Observation Oxygen Delivery Method Room Air Blood Pressure (90/60-120/80) 174/92 H 171/91 H Blood Pressure Mean (mm Hg) 119 117 Source Monitor Monitor Position Sitting Blood Pressure Location Right Forearm History Since Last Visit- (Skip if this is Patient's initial visit) Have you changed medications since your No No last visit? Any new allergies or adverse reactions No No Had a fall/change in ADL's that may No No increase risk of falls Signs or symptoms of abuse and/or No No neglect since last visit Have you been in the hospital since your No No last visit? Has dressing in place as prescribed Yes Yes Has compression in place as prescribed Yes Yes Has offloadiing in place as prescribed N/A Yes Experienced any changes in pain level or No No management Left Footwear Regular Shoe Regular Shoe Right Footwear Other Footwear Removable Cast (Comment) Walker/Walking Boot Other Footwear ADIN WRAP Pain Scale: 0-10 Numeric Is Patient Pain Free? Yes No WC - Nurse 1 - General Ulcer Measurement Start: 10/15/21 14:23 Freq: Status: Active Protocol: Activity Type Activity Date Activity User E-Sign Co-Sign Detail Recorded Client Recorded Date Recorded By Document 10/15/21 14:23 MW [id number] 10/15/21 14:27 MW Document 10/21/21 13:26 [place] [id number] 10/21/21 13:28 [place] 10/15/21 10/21/21 14:23 13:26 Wound Center Nurse 1 #9 R Plantar -Combined with other wound No No -Current Size (cm) - Length 0.8 0.8 -Current Size (cm) - Width 1.1 1.3 -Current Size (cm) - Depth 3.1 0.8 -Total Square Cm 0.88 1.04 -Photo Taken No No -Epithelialization None Present -Tunneling No No -Undermining/Tunneling No No -Circular Undermining No Yes -Change in Wound Grade/Stage No -Exudate Amt Medium Medium -Exudate Type Serosanguineous Serosanguineous -Wound Margin Distinct, Distinct, Outline Outline Attached Attached -Granulation Amt Large (67-100%) Medium (34-66%) -Granulation Quality Red [place],Red -Slough/Fibrin Yes Yes -Necrosis Amt Small (1-33%) Medium (34-66%) -Necrotic Tissue Type Adherent Slough Adherent Slough -Structure Exposed N/A N/A -Texture (Michelle-wound Skin Appearance) No Abnormality, Assessed,Callus Assessed -Moisture (Michelle-wound Skin Appearance) Assessed, Assessed, Maceration Maceration -Color (Michelle-wound Skin Appearance) No Abnormality, No Abnormality, Assessed Assessed -Temperature (Michelle-wound Skin No Abnormality No Abnormality Appearance) (Pt Warm) (Pt Warm) -Tenderness on Palpation (Michelle-wound Yes No Skin Appearance) -Ulcer Cleansing Soap and Water Soap and Water -Foul Odor after Cleansing No No -Anesthetic Used 5% Lidocaine 5% Lidocaine Gel Gel Lower Limb Edema Present No No Right Calf (cm) 50.5 Right Ankle (cm) 33.4 - Nurse 2 - General Ulcer CM Notes Start: 10/15/21 14:23 Freq: Status: Active Protocol: Activity Type Activity Date Activity User E-Sign Co-Sign Detail Recorded Client Recorded Date Recorded By Document 10/15/21 14:35 [id number] 10/15/21 14:40 Document 10/21/21 13:34 [id number] 10/21/21 13:37 10/15/21 10/21/21 14:35 13:34 Wound Center Nurse 2 #9 R Plantar -Time 14:39 13:34 -Correct Patient Yes Yes -Correct Side, Site, Position Yes Yes -Correct Procedure Yes Yes -Procedure Performed Yes Yes -Type of Procedure Debridement Debridement -Clinical Debridement Subcutaneous Subcutaneous -Tissue Removed Subcutaneous Subcutaneous -Post Debridement (cm) - Length 1.1 1.0 -Post Debridement (cm) - Width 1.3 1.5 -Post Debridement (cm) - Depth 2.5 2.9 -Total Square (Post) (cm) 1.43 1.50 -Area of Debridement (cm) - Length 1.1 1.0 -Area of Debridement (cm) - Width 1.3 1.5 -Total Square (Area) (cm) 1.43 1.50 -Tunneling No No -Undermining/Tunneling No No -Circular Undermining No No -Wound/Ulcer Outcome Not Healed Not Healed -Ulcer Cleansing Rinsed/ Rinsed/ Irrigated with Irrigated with Saline Saline -Foul Odor after Cleansing No No -Bioengineered Tissue No No -Bleeding Controlled with Pressure Pressure -Treatment Response Procedure Procedure Tolerated Well Tolerated Well -Offloading Yes Yes -Type of Offloading Total Contact Total Contact Cast (TCC) - Cast (TCC) - Right ($) Left ($) -Debridement - Subq, 1st 20sq cm Yes Yes Pain Scale: 0-10 Numeric Is Patient Pain Free? Yes Yes SANDEEP - Nurse 3 - General Ulcer D/C NN Start: 10/15/21 14:23 Freq: Status: Active Protocol: Activity Type Activity Date Activity User E-Sign Co-Sign Detail Recorded Client Recorded Date Recorded By Document 10/15/21 14:[address] [facility] [id number] 10/15/21 14:[address] [facility] 10/15/21 14:49 Wound Care Nurse 3 #9 R Plantar -Ulcer Cleansing Rinsed/ Irrigated with Saline -Foul Odor after Cleansing No -Primary Dressing Applied Aquacel AG 2x2 -Other Dressing XTRASORB; TCC UNDERCAST AND DRSG PER DL SHIP CEILER -Aquacel AG 2x2 1 Treatment Response Procedure Tolerated Well Pain Scale: 0-10 Numeric Is Patient Pain Free? Yes WC - Visit Discharge Discharge Condition Stable Ambulatory Status Ambulatory, Walker Transportation [facility] Facility Type Home Health Assessment/Plan Assessment/Plan (1) Non-pressure chronic ulcer of other part of right foot with fat layer exposed: CODE(S): L97.512 - Non-pressure chronic ulcer of other part of right foot with fat layer exposed (2) Type 2 diabetes mellitus with diabetic polyneuropathy: CODE(S): E11.42 - Type 2 diabetes mellitus with diabetic polyneuropathy QUALIFIERS: Diabetes mellitus prison insulin use: unspecified prison insulin use status Qualified Code(s): E11.42 - Type 2 diabetes mellitus with diabetic polyneuropathy (3) Osteomyelitis: CODE(S): M86.9 - Osteomyelitis, unspecified QUALIFIERS: Laterality: right Osteomyelitis location: foot Osteomyelitis type: other acute Qualified Code(s): M86.171 - Other acute osteomyelitis, right ankle and foot (4) Tobacco abuse: CODE(S): Z72.0 - Tobacco use (5) Venous insufficiency: CODE(S): I87.2 - Venous insufficiency (chronic) (peripheral) (6) Bilateral lower extremity edema: CODE(S): R60.0 - Localized edema (7) Charcot's joint, right ankle and foot: CODE(S): M14.671 - Charcot's joint, right ankle and foot PLAN: Patient seen and examined. His status has stabilized. Debridement was performed as noted in the clinical panel. Dressings: Aquacel Ag and secondary gauze dressing was applied prior to total contact cast application Infection: He does have a history of recurrent ulcers with infections and even osteomyelitis. He was previously seen by infectious disease. There are no local or systemic signs of illness today however his worsening status is a concern. To monitor for development of these signs and to call immediately if these are noted. Diagnostic data: I recommend updating his labs including CBC, CMP, ESR, C-reactive protein. Also recommend updating a foot x-ray. He obtained three foot xrays on 10/06/21 which was stable without acute findings. No soft tissue emphysema, foreign body, fractures noted. there is charcot midfoot with dislocations and coalesced fragmentation. Labs from 10/06/21 with wbc 8.4, esr 66, crp, 31.60, est gfr 97. Offloading: Patient to remain nonweightbearing to the right lower extremity. Use wheelchair or knee walker / roller. Patient is noted to also have gotten an electric scooter in order to offload his foot. Verbal consent was obtained to apply total contact cast to right lower extremity. This was applied according standard protocol in a neutral position and well-padded manner. He was advised to keep this clean, dry, and intact until follow-up next week. He tolerated this well. He is at risk for further amputation of foot or leg. He has a U[employer] walker ready at [facility] once healed. He relates this is no longer known at this time so I gave him a new prescription previously. The benefits and indications and anticipated management of application of a total contact cast was reviewed in detail. I recommend this. He is amendable. Verbal consent was obtained. This was applied according standard protocol in a well-padded manner with the limb in a rectus position. He tolerated this well. I recommend Glen for nutritional supplementation to optimize healing. All questions answered. To follow-up 1 week. Note: [employer] speech recognition automatic outsole cutter software was used to create portions of this document. Sound-alike and misspelled words, as well as other automatic outsole cutter errors may be contained in the documentation.
[2021-10-30 14:53] VITALS: BMI 47.7
--- NOTE | 2021-10-30 23:56 | PCM.WC.PN ---
History of Present Illness Date of Service: 10/30/21 Chief Complaint: right ulcer to the bottom of the foot History of Wound: Patient is a 51-year-old male who presents to the wound care center for follow-up complicated right foot ulcers with history of Charcot and osteomyelitis history. He denies redness or odor, fever, chills, nausea or vomiting today. The onset of this recent plantar foot ulcer was July 25, 2021. He denies odor or redness. He reports increased drainage. He has been consistent with offloading with a knee roller. He denies redness or streaking to the leg. He denies odors. He tolerated the total contact cast well. His leg swelling has decreased. Progress of Wound: Courtesy visit for Dr. John-patient states that he did not tolerate the TCC and refuses further TCC application, his wound depth has worsened in size when compared to prior visit, otherwise no new concerns Objective Data Objective Data Vital Signs: Vital Signs Temp Pulse Resp BP 97.2 F L 101 H 16 171/91 H 10/21/21 13:26 10/21/21 13:26 10/15/21 14:23 10/21/21 13:26 Oxygen Delivery Method Room Air Body Mass Index (BMI) 47.7 Charges/Coding Procedures Integumentary 111xxx-113xx: 66034 Aleyda subq tissue 20 sq cm/< Physical Exam Narrative Const alert and oriented x3 General Appearance: cooperative HEENT normocephalic Extremity Extremity Narrative: No calf tenderness Diminished pulses Compartments remain soft to palpate right lower extremity General Extremity: edema especially to right lower extremity. No tenderness to palpation of joints or extremities; Negative for cyanosis. No gross laxity crepitus or pain with attempted passive manipulation of the midfoot at his prior Charcot site. Skin Skin Narrative: Serosanguineous mild/decreased drainage noted from plantar foot. There is no malodor noted today. deep tissue probing noted and increased. This is granulation tissue noted upon debridement with continued depth of the deep tunnel to the midfoot and not directly to bone. There is no purulence, however there was a large amount of maceration this week. No bogginess or fluctuance on palpation. General Skin Exam: Negative for erythema MSK Muscle wasting noted Charcot foot with rocker-bottom deformity and fourth and fifth ray resection right. Partial second toe amputation. No new laxity of the midfoot noted Neuro Neuro Narrative: lack of normal epicritic sensation via light touch is consistent with neuropathy status Psych cooperative and affect normal Debridement Note Debridement Note Wound debrided: Diabetic ulcer right foot Laterality: Right Type of Debridement: Excisional debridement Anesthesia Used: 5% Lidocaine Gel Depth: in the subcutaneous layer Percentage of wound debrided: 100 Instrument Used: 5mm curette and 7mm curette Tissue Removed: Slough and devitalized tissue Severity: Fat Layer Exposed Amount of bleeding with debridement: Mild Bleeding Controlled with: Pressure Patient tolerated procedure: Patient tolerated procedure well Post-Debridement Measurements and Additional Note: Post-Debridement Measurements/Treatment - Nurse 1 - General Ulcer Assessment Start: 10/15/21 14:23 Freq: Status: Active Protocol: NIGEL Activity Type Activity Date Activity User E-Sign Co-Sign Detail Recorded Client Recorded Date Recorded By Document 10/15/21 14:23 MW [id number] 10/15/21 14:27 MW Document 10/21/21 13:26 AK [id number] 10/21/21 13:28 AK Document 10/30/21 14:53 CA [id number] 10/30/21 14:55 AK 10/15/21 10/21/21 10/30/21 14:23 13:26 14:53 - Today's Visit Information Type of service Follow-up Visit Follow-up Visit Follow-up Visit (Physician/CLAMSHELL OPERATOR (Physician/CLAMSHELL OPERATOR (Physician/CLAMSHELL OPERATOR ) ) ) Arrival Mode Ambulatory, Walker Walker Arrival Mode (Other) knee knee walker Transfer Assistance None Accompanied by SELF Patient Identification Verified (Name & Yes Yes Yes ) Patient Requires Transmission-Based No No No Precautions Safety Precautions Fall Prevention NA Finger Stick Blood Sugar(mg/dl) (if 134 indicated): Blood Sugar Stated by Patient Height and Weight Body Mass Index (BMI) 47.7 47.7 47.7 BMI Classification Obese Obese Obese Vital Signs Temperature (97.8 F-99.1 F) 97.4 F L 97.2 F L Temperature Source Temporal Temporal Pulse Rate (60-100) 103 H 101 H Pulse Location Monitor Monitor Respiratory Rate (12-18) 16 Respiratory rate source Observation Oxygen Delivery Method Room Air Blood Pressure (90/60-120/80) 174/92 H 171/91 H Blood Pressure Mean (mm Hg) 119 117 Source Monitor Monitor Position Sitting Blood Pressure Location Right Forearm History Since Last Visit- (Skip if this is Patient's initial visit) Have you changed medications since your No No No last visit? Any new allergies or adverse reactions No No No Had a fall/change in ADL's that may No No No increase risk of falls Signs or symptoms of abuse and/or No No No neglect since last visit Have you been in the hospital since your No No No last visit? Has dressing in place as prescribed Yes Yes Yes Has compression in place as prescribed Yes Yes Yes Has offloadiing in place as prescribed N/A Yes Yes Experienced any changes in pain level or No No No management Left Footwear Regular Shoe Regular Shoe Removable Cast Walker/Walking Boot Right Footwear Other Footwear Removable Cast Regular Shoe (Comment) Walker/Walking Boot Other Footwear JENS WRAP Pain Scale: 0-10 Numeric Is Patient Pain Free? Yes No Yes WC - Nurse 1 - General Ulcer Measurement Start: 10/15/21 14:23 Freq: Status: Active Protocol: Activity Type Activity Date Activity User E-Sign Co-Sign Detail Recorded Client Recorded Date Recorded By Document 10/15/21 14:23 [id number] 10/15/21 14:27 MW Document 10/21/21 13:26 AK [id number] 10/21/21 13:28 AK Document 10/30/21 14:53 CA [id number] 10/30/21 14:55 AK 10/15/21 10/21/21 10/30/21 14:23 13:26 14:53 Wound Center Nurse 1 #9 R Plantar -Combined with other wound No No No -Current Size (cm) - Length 0.8 0.8 0.3 -Current Size (cm) - Width 1.1 1.3 1 -Current Size (cm) - Depth 3.1 0.8 0.2 -Total Square Cm 0.88 1.04 0.3 -Photo Taken No No No -Epithelialization None Present -Tunneling No No No -Undermining/Tunneling No No No -Circular Undermining No Yes No -Change in Wound Grade/Stage No No -Exudate Amt Medium Medium Large -Exudate Type Serosanguineous Serosanguineous Yellow/Green -Wound Margin Distinct, Distinct, Distinct, Outline Outline Outline Attached Attached Attached -Granulation Amt Large (67-100%) Medium (34-66%) Small (1-33%) -Granulation Quality [place] -Slough/Fibrin Yes Yes Yes -Necrosis Amt Small (1-33%) Medium (34-66%) Medium (34-66%) -Necrotic Tissue Type Adherent Slough Adherent Slough Adherent Slough -Structure Exposed N/A N/A -Texture (Michelle-wound Skin Appearance) No Abnormality, Assessed,Callus Assessed,Callus Assessed -Moisture (Michelle-wound Skin Appearance) Assessed, Assessed, Assessed, Maceration Maceration Maceration -Color (Michelle-wound Skin Appearance) No Abnormality, No Abnormality, No Abnormality, Assessed Assessed Assessed -Temperature (Michelle-wound Skin No Abnormality No Abnormality No Abnormality Appearance) (Pt Warm) (Pt Warm) (Pt Warm) -Tenderness on Palpation (Michelle-wound Yes No No Skin Appearance) -Ulcer Cleansing Soap and Water Soap and Water Soap and Water -Foul Odor after Cleansing No No No -Anesthetic Used 5% Lidocaine 5% Lidocaine 4% Lidocaine Gel Gel Solution Lower Limb Edema Present No No Right Calf (cm) 50.5 51 Right Ankle (cm) 33.4 34.5 WC - Nurse 2 - General Ulcer CM Notes Start: 10/15/21 14:23 Freq: Status: Active Protocol: Activity Type Activity Date Activity User E-Sign Co-Sign Detail Recorded Client Recorded Date Recorded By Document 10/15/21 14:35 [id number] 10/15/21 14:40 Document 10/21/21 13:34 [id number] 10/21/21 13:37 Document 10/30/21 15:45 [id number] 10/30/21 15:51 MW 10/15/21 10/21/21 10/30/21 14:35 13:34 15:45 Wound Center Nurse 2 #9 R Plantar -Time 14:39 13:34 15:46 -Correct Patient Yes Yes Yes -Correct Side, Site, Position Yes Yes Yes -Correct Procedure Yes Yes Yes -Procedure Performed Yes Yes Yes -Type of Procedure Debridement Debridement Debridement -Clinical Debridement Subcutaneous Subcutaneous Subcutaneous -Tissue Removed Subcutaneous Subcutaneous Subcutaneous -Post Debridement (cm) - Length 1.1 1.0 2.0 -Post Debridement (cm) - Width 1.3 1.5 0.8 -Post Debridement (cm) - Depth 2.5 2.9 5.0 -Total Square (Post) (cm) 1.43 1.50 1.60 -Area of Debridement (cm) - Length 1.1 1.0 2.0 -Area of Debridement (cm) - Width 1.3 1.5 0.8 -Total Square (Area) (cm) 1.43 1.50 1.60 -Tunneling No No No -Undermining/Tunneling No No No -Circular Undermining No No No -Wound/Ulcer Outcome Not Healed Not Healed Not Healed -Ulcer Cleansing Rinsed/ Rinsed/ Rinsed/ Irrigated with Irrigated with Irrigated with Saline Saline Saline -Foul Odor after Cleansing No No No -Bioengineered Tissue No No No -Bleeding Controlled with Pressure Pressure Pressure -Treatment Response Procedure Procedure Procedure Tolerated Well Tolerated Well Tolerated Well -Offloading Yes Yes No -Type of Offloading Total Contact Total Contact Cast (TCC) - Cast (TCC) - Right ($) Left ($) -Debridement - Subq, 1st 20sq cm Yes Yes Yes Pain Scale: 0-10 Numeric Is Patient Pain Free? Yes Yes Yes - Nurse 3 - General Ulcer D/C NN Start: 10/15/21 14:23 Freq: Status: Active Protocol: Activity Type Activity Date Activity User E-Sign Co-Sign Detail Recorded Client Recorded Date Recorded By Document 10/15/21 14:49 [facility] [id number] 10/15/21 14:50 [facility] Document 10/30/21 15:51 MW [id number] 10/30/21 15:52 MW 10/15/21 10/30/21 14:49 15:51 Wound Care Nurse 3 #9 R Plantar -Ulcer Cleansing Rinsed/ Rinsed/ Irrigated with Irrigated with Saline Saline -Foul Odor after Cleansing No No -Negative Pressure Wound Therapy N/A -Primary Dressing Applied Aquacel AG 2x2 Aquacel Rope, Optilok 6.5x10 -Other Dressing XTRASORB; TCC UNDERCAST AND DRSG PER DL ACCOUNTS OFFICER -Primary Dressing Covered/Secured with Dry Gauze & Roll Gauze, Secured with Tape -Other Covering ABD -Aquacel AG 2x2 1 -Aquacel Rope 1 -Optilok 6.5x10 1 Right -Lotion applied to leg before No compression wrap -Compression Wrap Jens Wrap Treatment Response Procedure Procedure Tolerated Well Tolerated Well Pain Scale: 0-10 Numeric Is Patient Pain Free? Yes Yes WC - Visit Discharge Discharge Condition Stable Stable Ambulatory Status Ambulatory, Ambulatory, Walker Walker Transportation [facility] Private Auto Accompanied by FRIEND Medication Reconcilliation completed & No provided to patient/care provider Clinical Summary of Care Provided Yes Facility Type Home Health Assessment/Plan Assessment/Plan (1) Non-pressure chronic ulcer of other part of right foot with fat layer exposed: CODE(S): L97.512 - Non-pressure chronic ulcer of other part of right foot with fat layer exposed (2) Type 2 diabetes mellitus with diabetic polyneuropathy: CODE(S): E11.42 - Type 2 diabetes mellitus with diabetic polyneuropathy QUALIFIERS: Diabetes mellitus manager beauty insulin use: unspecified manager beauty insulin use status Qualified Code(s): E11.42 - Type 2 diabetes mellitus with diabetic polyneuropathy (3) Osteomyelitis: CODE(S): M86.9 - Osteomyelitis, unspecified QUALIFIERS: Osteomyelitis type: other acute Osteomyelitis location: foot Laterality: right Qualified Code(s): M86.171 - Other acute osteomyelitis, right ankle and foot (4) Tobacco abuse: CODE(S): Z72.0 - Tobacco use (5) Venous insufficiency: CODE(S): I87.2 - Venous insufficiency (chronic) (peripheral) (6) Bilateral lower extremity edema: CODE(S): R60.0 - Localized edema (7) Charcot's joint, right ankle and foot: CODE(S): M14.671 - Charcot's joint, right ankle and foot PLAN: Courtesy visit for Dr. John Patient seen and examined. His status has stabilized. Debridement was performed as noted in the clinical panel. Dressings: Aquacel Ag rope and secondary gauze dressing was applied, patient refused TCC application, Jens wraps for compression today Infection: He does have a history of recurrent ulcers with infections and even osteomyelitis. He was previously seen by infectious disease. There are no local or systemic signs of illness today however his worsening status is a concern. To monitor for development of these signs and to call immediately if these are noted. Diagnostic data: I recommend updating his labs including CBC, CMP, ESR, C-reactive protein. Also recommend updating a foot x-ray. He obtained three foot xrays on 10/06/21 which was stable without acute findings. No soft tissue emphysema, foreign body, fractures noted. there is charcot midfoot with dislocations and coalesced fragmentation. Labs from 10/06/21 with wbc 8.4, esr 66, crp, 31.60, est gfr 97. Offloading: Patient to remain nonweightbearing to the right lower extremity. Use wheelchair or knee walker / roller. Patient is noted to also have gotten an electric scooter in order to offload his foot. This was applied according standard protocol in a neutral position and well-padded manner. He was advised to keep this clean, dry, and intact until follow-up next week. He tolerated this well. He is at risk for further amputation of foot or leg. He has a [place] walker ready at [employer] once healed. He relates this is no longer known at this time so I gave him a new prescription previously. The benefits and indications and anticipated management of application of a total contact cast was reviewed in detail. I recommend this. He is amendable. Verbal consent was obtained. This was applied according standard protocol in a well-padded manner with the limb in a rectus position. He tolerated this well. I recommend Glen for nutritional supplementation to optimize healing. All questions answered. To follow-up 1 week. Note: [employer] speech recognition english as a second language instructor software was used to create portions of this document. Sound-alike and misspelled words, as well as other english as a second language instructor errors may be contained in the documentation.
[2021-11-05 14:59] VITALS: BP 181/92; PULSE 99; RESP 18; TEMP 36.1; BMI 47.7
--- NOTE | 2021-11-05 15:19 | PN.PCM_ITS ---
History of Present Illness Date of Service: 11/05/21 Chief Complaint: right ulcer to the bottom of the foot History of Wound: Patient is a 51-year-old male who presents to the wound care center for follow-up complicated right foot ulcers with history of Charcot and osteomyelitis history. He denies redness or odor, fever, chills, nausea or vomiting today. The onset of this recent plantar foot ulcer was July 25, 2021. He denies odor or redness. He reports continued drainage. He has been consistent with offloading with a knee roller. He denies redness or streaking to the leg. He denies odors. He has continued leg and foot swelling he had a total contact cast last time he had an office visit with me and was unable to follow-up due to transportation issue. Therefore, he is apprehensive about proceeding with another cast visit was difficult to get it removed and it drained so much. Progress of Wound: Stable Objective Data Objective Data Vital Signs: Vital Signs Temp Pulse Resp BP 97.0 F L 99 18 181/92 H 11/05/21 14:59 11/05/21 14:59 11/05/21 14:59 11/05/21 14:59 Oxygen Delivery Method Room Air Body Mass Index (BMI) 47.7 Physical Exam Narrative Const alert and oriented x3 General Appearance: cooperative HEENT normocephalic Extremity Extremity Narrative: No calf tenderness Diminished pulses Compartments remain soft to palpate right lower extremity General Extremity: edema especially to right lower extremity. No tenderness to palpation of joints or extremities; Negative for cyanosis. No gross laxity crepitus or pain with attempted passive manipulation of the midfoot at his prior Charcot site. Skin Skin Narrative: Serosanguineous mild/decreased drainage noted from plantar foot. There is no malodor noted today. deep tissue probing noted and increased. This is granulation tissue noted upon debridement with continued depth of the deep tunnel to the midfoot and not directly to bone. Resolved maceration. No bogginess or fluctuance on palpation. General Skin Exam: Negative for erythema MSK Muscle wasting noted Charcot foot with rocker-bottom deformity and fourth and fifth ray resection right. Partial second toe amputation. No new laxity of the midfoot noted Neuro Neuro Narrative: lack of normal epicritic sensation via light touch is consistent with neuropathy status Psych cooperative and affect normal Debridement Note Debridement Note Wound debrided: plantar right foot Wound Grade/Stage: 1 Type of Debridement: Excisional debridement Anesthesia Used: 4% Lidocaine Solution Depth: in the subcutaneous layer Percentage of wound debrided: 100 Instrument Used: #15 blade Tissue Removed: fibrous, devitalized subcutaneous, biofilm, slough Severity: Fat Layer Exposed Amount of bleeding with debridement: Mild Bleeding Controlled with: Pressure Patient tolerated procedure: Patient tolerated procedure well Post-Debridement Measurements and Additional Note: Post-Debridement Measurements/Treatment - Nurse 1 - General Ulcer Assessment Start: 10/15/21 14:23 Freq: Status: Active Protocol: MiArch Activity Type Activity Date Activity User E-Sign Co-Sign Detail Recorded Client Recorded Date Recorded By Document 10/15/21 14:23 MW [id number] 10/15/21 14:27 MW Document 10/21/21 13:26 AK [id number] 10/21/21 13:28 AK Document 10/30/21 14:53 AK [id number] 10/30/21 14:55 AK Document 11/05/21 14:59 MW [id number] 11/05/21 15:08 MW 10/15/21 10/21/21 10/30/21 14:23 13:26 14:53 - Today's Visit Information Type of service Follow-up Visit Follow-up Visit Follow-up Visit (Physician/SPRAY PAINTER HELPER (Physician/SPRAY PAINTER HELPER (Physician/SPRAY PAINTER HELPER ) ) ) Arrival Mode Ambulatory, Walker Walker Arrival Mode (Other) knee knee walker Transfer Assistance None Accompanied by SELF Patient Identification Verified (Name & Yes Yes Yes ) Patient Requires Transmission-Based No No No Precautions Safety Precautions Fall Prevention NA Finger Stick Blood Sugar(mg/dl) (if 134 indicated): Blood Sugar Stated by Patient Height and Weight Body Mass Index (BMI) 47.7 47.7 47.7 BMI Classification Obese Obese Obese Vital Signs Temperature (97.8 F-99.1 F) 97.4 F L 97.2 F L Temperature Source Temporal Temporal Pulse Rate (60-100) 103 H 101 H Pulse Location Monitor Monitor Respiratory Rate (12-18) 16 Respiratory rate source Observation Oxygen Delivery Method Room Air Blood Pressure (90/60-120/80) 174/92 H 171/91 H Blood Pressure Mean (mm Hg) 119 117 Source Monitor Monitor Position Sitting Blood Pressure Location Right Forearm History Since Last Visit- (Skip if this is Patient's initial visit) Have you changed medications since your No No No last visit? Any new allergies or adverse reactions No No No Had a fall/change in ADL's that may No No No increase risk of falls Signs or symptoms of abuse and/or No No No neglect since last visit Have you been in the hospital since your No No No last visit? Has dressing in place as prescribed Yes Yes Yes Has compression in place as prescribed Yes Yes Yes Has offloadiing in place as prescribed N/A Yes Yes Experienced any changes in pain level or No No No management Left Footwear Regular Shoe Regular Shoe Removable Cast Walker/Walking Boot Right Footwear Other Footwear Removable Cast Regular Shoe (Comment) Walker/Walking Boot Other Footwear JENS WRAP Pain Scale: 0-10 Numeric Is Patient Pain Free? Yes No Yes 11/05/21 14:59 WC - Today's Visit Information Type of service Follow-up Visit (Physician/SPRAY PAINTER HELPER ) Arrival Mode Ambulatory, Walker Arrival Mode (Other) Transfer Assistance None Accompanied by self Patient Identification Verified (Name & Yes ) Patient Requires Transmission-Based No Precautions Safety Precautions Finger Stick Blood Sugar(mg/dl) (if 142 indicated): Blood Sugar Stated by Patient Height and Weight Body Mass Index (BMI) 47.7 BMI Classification Obese Vital Signs Temperature (97.8 F-99.1 F) 97.0 F L Temperature Source Temporal Pulse Rate (60-100) 99 Pulse Location Monitor Respiratory Rate (12-18) 18 Respiratory rate source Observation Oxygen Delivery Method Room Air Blood Pressure (90/60-120/80) 181/92 H Blood Pressure Mean (mm Hg) 121 Source Monitor Position Sitting Blood Pressure Location Left Forearm History Since Last Visit- (Skip if this is Patient's initial visit) Have you changed medications since your No last visit? Any new allergies or adverse reactions No Had a fall/change in ADL's that may No increase risk of falls Signs or symptoms of abuse and/or No neglect since last visit Have you been in the hospital since your No last visit? Has dressing in place as prescribed Yes Has compression in place as prescribed Yes Has offloadiing in place as prescribed Yes Experienced any changes in pain level or No management Left Footwear Regular Shoe Right Footwear No Footwear Other Footwear Pain Scale: 0-10 Numeric Is Patient Pain Free? Yes WC - Nurse 1 - General Ulcer Measurement Start: 10/15/21 14:23 Freq: Status: Active Protocol: Activity Type Activity Date Activity User E-Sign Co-Sign Detail Recorded Client Recorded Date Recorded By Document 10/15/21 14:23 MW [id number] 10/15/21 14:27 MW Document 10/21/21 13:26 AK [id number] 10/21/21 13:28 AK Document 10/30/21 14:53 AK [id number] 10/30/21 14:55 AK Document 11/05/21 14:59 MW [id number] 11/05/21 15:08 MW 10/15/21 10/21/21 10/30/21 14:23 13:26 14:53 Wound Center Nurse 1 #9 R Plantar -Combined with other wound No No No -Current Size (cm) - Length 0.8 0.8 0.3 -Current Size (cm) - Width 1.1 1.3 1 -Current Size (cm) - Depth 3.1 0.8 0.2 -Total Square Cm 0.88 1.04 0.3 -Photo Taken No No No -Epithelialization None Present -Tunneling No No No -Undermining/Tunneling No No No -Circular Undermining No Yes No -Change in Wound Grade/Stage No No -Exudate Amt Medium Medium Large -Exudate Type Serosanguineous Serosanguineous Yellow/Green -Wound Margin Distinct, Distinct, Distinct, Outline Outline Outline Attached Attached Attached -Granulation Amt Large (67-100%) Medium (34-66%) Small (1-33%) -Granulation Quality Red [place],Red [place] -Slough/Fibrin Yes Yes Yes -Necrosis Amt Small (1-33%) Medium (34-66%) Medium (34-66%) -Necrotic Tissue Type Adherent Slough Adherent Slough Adherent Slough -Structure Exposed N/A N/A -Texture (Michelle-wound Skin Appearance) No Abnormality, Assessed,Callus Assessed,Callus Assessed -Moisture (Michelle-wound Skin Appearance) Assessed, Assessed, Assessed, Maceration Maceration Maceration -Color (Michelle-wound Skin Appearance) No Abnormality, No Abnormality, No Abnormality, Assessed Assessed Assessed -Temperature (Michelle-wound Skin No Abnormality No Abnormality No Abnormality Appearance) (Pt Warm) (Pt Warm) (Pt Warm) -Tenderness on Palpation (Michelle-wound Yes No No Skin Appearance) -Ulcer Cleansing Soap and Water Soap and Water Soap and Water -Foul Odor after Cleansing No No No -Anesthetic Used 5% Lidocaine 5% Lidocaine 4% Lidocaine Gel Gel Solution Lower Limb Edema Present No No Right Calf (cm) 50.5 51 Right Ankle (cm) 33.4 34.5 11/05/21 14:59 Wound Center Nurse 1 #9 R Plantar -Combined with other wound No -Current Size (cm) - Length 1.0 -Current Size (cm) - Width 1.5 -Current Size (cm) - Depth 3.4 -Total Square Cm 1.50 -Photo Taken No -Epithelialization None Present -Tunneling No -Undermining/Tunneling No -Circular Undermining No -Change in Wound Grade/Stage -Exudate Amt Large -Exudate Type Serosanguineous -Wound Margin Distinct, Outline Attached -Granulation Amt Medium (34-66%) -Granulation Quality [place] -Slough/Fibrin Yes -Necrosis Amt Medium (34-66%) -Necrotic Tissue Type Adherent Slough -Structure Exposed N/A -Texture (Michelle-wound Skin Appearance) Assessed, Localized Edema -Moisture (Michelle-wound Skin Appearance) Assessed, Maceration -Color (Michelle-wound Skin Appearance) Assessed, Hemosiderin Staining -Temperature (Michelle-wound Skin No Abnormality Appearance) (Pt Warm) -Tenderness on Palpation (Michelle-wound No Skin Appearance) -Ulcer Cleansing Soap and Water -Foul Odor after Cleansing No -Anesthetic Used 5% Lidocaine Gel Lower Limb Edema Present Yes Right Calf (cm) 52.5 Right Ankle (cm) 32.0 WC - Nurse 2 - General Ulcer CM Notes Start: 10/15/21 14:23 Freq: Status: Active Protocol: Activity Type Activity Date Activity User E-Sign Co-Sign Detail Recorded Client Recorded Date Recorded By Document 10/15/21 14:35 JERSON [id number] 10/15/21 14:40 Document 10/21/21 13:34 [id number] 10/21/21 13:37 Document 10/30/21 15:45 [id number] 10/30/21 15:51 Document 11/05/21 15:14 [id number] 11/05/21 15:15 10/15/21 10/21/21 10/30/21 14:35 13:34 15:45 Wound Center Nurse 2 #9 R Plantar -Time 14:39 13:34 15:46 -Correct Patient Yes Yes Yes -Correct Side, Site, Position Yes Yes Yes -Correct Procedure Yes Yes Yes -Procedure Performed Yes Yes Yes -Type of Procedure Debridement Debridement Debridement -Clinical Debridement Subcutaneous Subcutaneous Subcutaneous -Tissue Removed Subcutaneous Subcutaneous Subcutaneous -Post Debridement (cm) - Length 1.1 1.0 2.0 -Post Debridement (cm) - Width 1.3 1.5 0.8 -Post Debridement (cm) - Depth 2.5 2.9 5.0 -Total Square (Post) (cm) 1.43 1.50 1.60 -Area of Debridement (cm) - Length 1.1 1.0 2.0 -Area of Debridement (cm) - Width 1.3 1.5 0.8 -Total Square (Area) (cm) 1.43 1.50 1.60 -Tunneling No No No -Undermining/Tunneling No No No -Circular Undermining No No No -Wound/Ulcer Outcome Not Healed Not Healed Not Healed -Ulcer Cleansing Rinsed/ Rinsed/ Rinsed/ Irrigated with Irrigated with Irrigated with Saline Saline Saline -Foul Odor after Cleansing No No No -Bioengineered Tissue No No No -Bleeding Controlled with Pressure Pressure Pressure -Treatment Response Procedure Procedure Procedure Tolerated Well Tolerated Well Tolerated Well -Offloading Yes Yes No -Type of Offloading Total Contact Total Contact Cast (TCC) - Cast (TCC) - Right ($) Left ($) -Debridement - Subq, 1st 20sq cm Yes Yes Yes Pain Scale: 0-10 Numeric Is Patient Pain Free? Yes Yes Yes 11/05/21 15:14 Wound Center Nurse 2 #9 R Plantar -Time 15:14 -Correct Patient Yes -Correct Side, Site, Position Yes -Correct Procedure Yes -Procedure Performed Yes -Type of Procedure Debridement -Clinical Debridement Subcutaneous -Tissue Removed Subcutaneous -Post Debridement (cm) - Length 1.1 -Post Debridement (cm) - Width 1.5 -Post Debridement (cm) - Depth 5.5 -Total Square (Post) (cm) 1.65 -Area of Debridement (cm) - Length 1.1 -Area of Debridement (cm) - Width 1.5 -Total Square (Area) (cm) 1.65 -Tunneling No -Undermining/Tunneling No -Circular Undermining No -Wound/Ulcer Outcome Not Healed -Ulcer Cleansing Rinsed/ Irrigated with Saline -Foul Odor after Cleansing No -Bioengineered Tissue No -Bleeding Controlled with Pressure -Treatment Response Procedure Tolerated Well -Offloading Yes -Type of Offloading Knee Walker -Debridement - Subq, 1st 20sq cm Yes Pain Scale: 0-10 Numeric Is Patient Pain Free? Yes - Nurse 3 - General Ulcer D/C NN Start: 10/15/21 14:23 Freq: Status: Active Protocol: Activity Type Activity Date Activity User E-Sign Co-Sign Detail Recorded Client Recorded Date Recorded By Document 10/15/21 14:49 [facility] [id number] 10/15/21 14:50 BM Document 10/30/21 15:51 MW [id number] 10/30/21 15:52 MW 10/15/21 10/30/21 14:49 15:51 Wound Care Nurse 3 #9 R Plantar -Ulcer Cleansing Rinsed/ Rinsed/ Irrigated with Irrigated with Saline Saline -Foul Odor after Cleansing No No -Negative Pressure Wound Therapy N/A -Primary Dressing Applied Aquacel AG 2x2 Aquacel Rope, Optilok 6.5x10 -Other Dressing XTRASORB; TCC UNDERCAST AND DRSG PER DL SPECIAL DELIVERY MAIL CARRIER -Primary Dressing Covered/Secured with Dry Gauze & Roll Gauze, Secured with Tape -Other Covering ABD -Aquacel AG 2x2 1 -Aquacel Rope 1 -Optilok 6.5x10 1 Right -Lotion applied to leg before No compression wrap -Compression Wrap Jens Wrap Treatment Response Procedure Procedure Tolerated Well Tolerated Well Pain Scale: 0-10 Numeric Is Patient Pain Free? Yes Yes - Visit Discharge Discharge Condition Stable Stable Ambulatory Status Ambulatory, Ambulatory, Walker Walker Transportation [facility] Private Auto Accompanied by FRIEND Medication Reconcilliation completed & No provided to patient/care provider Clinical Summary of Care Provided Yes Facility Type Home Health Assessment/Plan Assessment/Plan (1) Non-pressure chronic ulcer of other part of right foot with fat layer exposed: CODE(S): L97.512 - Non-pressure chronic ulcer of other part of right foot with fat layer exposed (2) Type 2 diabetes mellitus with diabetic polyneuropathy: CODE(S): E11.42 - Type 2 diabetes mellitus with diabetic polyneuropathy QUALIFIERS: Diabetes mellitus intermediate designer insulin use: unspecified intermediate designer insulin use status Qualified Code(s): E11.42 - Type 2 diabetes mellitus with diabetic polyneuropathy (3) Osteomyelitis: CODE(S): M86.9 - Osteomyelitis, unspecified QUALIFIERS: Laterality: right Osteomyelitis location: foot Osteomyelitis type: other acute Qualified Code(s): M86.171 - Other acute osteomyelitis, right ankle and foot (4) Tobacco abuse: CODE(S): Z72.0 - Tobacco use (5) Venous insufficiency: CODE(S): I87.2 - Venous insufficiency (chronic) (peripheral) (6) Bilateral lower extremity edema: CODE(S): R60.0 - Localized edema (7) Charcot's joint, right ankle and foot: CODE(S): M14.671 - Charcot's joint, right ankle and foot PLAN: Patient seen and examined. His status has stabilized. Debridement was performed as noted in the clinical panel. Dressings: Aquacel Ag rope and secondary gauze dressing. Defers total contact cast due to concern of adequate transportation to remove this on time. Infection: He does have a history of recurrent ulcers with infections and even osteomyelitis. He was previously seen by infectious disease. There are no local or systemic signs of illness today however his worsening status is a concern. To monitor for development of these signs and to call immediately if these are noted. Diagnostic data: I recommend updating his labs including CBC, CMP, ESR, C- reactive protein. Also recommend updating a foot x-ray. He obtained three foot xrays on 10/06/21 which was stable without acute findings. No soft tissue emphysema, foreign body, fractures noted. there is charcot midfoot with dislocations and coalesced fragmentation. Labs from 10/06/21 with wbc 8.4, esr 66, crp, 31.60, est gfr 97. Offloading: Patient to remain nonweightbearing to the right lower extremity. Use wheelchair or knee walker / roller. Patient is noted to also have gotten an electric scooter in order to offload his foot. He is at risk for further amputation of foot or leg. He has a [employer] walker ready at [facility] once healed. He relates this is no longer known at this time so I gave him a new prescription previously. The benefits and indications and anticipated management of application of a total contact cast was reviewed in detail. I recommend this. He is amendable. Verbal consent was obtained. This was applied according standard protocol in a well-padded manner with the limb in a rectus position. He tolerated this well. I recommend Glen for nutritional supplementation to optimize healing. All questions answered. To follow-up 1 week. Note: [employer] speech recognition sign wirer software was used to create portions of this document. Sound-alike and misspelled words, as well as other sign wirer errors may be contained in the documentation.
== END 2021-11-08 23:59 | disposition home or self-care (01) ==
LOC: WC 14:30
PROVIDERS: PCP Internal Medicine; Referring Provider Podiatrist Foot & Ankle Surgery; Visit Provider Podiatrist
DX: E11.621 Type 2 diabetes mellitus with foot ulcer (principal); L97.512 Non-pressure chronic ulcer of other part of right foot with fat layer exposed; M86.171 Other acute osteomyelitis, right ankle and foot; E11.610 Type 2 diabetes mellitus with diabetic neuropathic arthropathy; E11.42 Type 2 diabetes mellitus with diabetic polyneuropathy; E11.59 Type 2 diabetes mellitus with other circulatory complications; Z79.4 Long term (current) use of insulin; I87.2 Venous insufficiency (chronic) (peripheral); Z72.0 Tobacco use; R60.0 Localized edema; M14.671 Charcot's joint, right ankle and foot
CPT/HCPCS: 11042; 29445

== ENCOUNTER 2021-12-03 15:00 | Outpatient (RCR) | payer MEDICAID, SELFPAY ==
[2021-11-09 00:29] VITALS: BP 181/92; PULSE 99; RESP 18; TEMP 36.1; BMI 47.7
[2021-11-12 14:13] VITALS: TEMP 35.5; BMI 47.7
--- NOTE | 2021-11-12 15:57 | PN.PCM_ITS ---
History of Present Illness Date of Service: 11/12/21 Chief Complaint: right ulcer to the bottom of the foot History of Wound: Patient is a 51-year-old male who presents to the wound care center for follow-up complicated right foot ulcers with history of Charcot and osteomyelitis history. He denies redness or odor, fever, chills, nausea or vomiting today. The onset of this recent plantar foot ulcer was July 25, 2021. He denies odor or redness. He reports continued drainage. He has been consistent with offloading with a knee roller. He denies redness or streaking to the leg. He denies odors. He has continued leg and foot swelling he had a total contact cast last time he had an office visit with me and was unable to follow-up due to transportation issue. Therefore, he is apprehensive about proceeding with another cast visit was difficult to get it removed and it drained so much. He also has lower extremity edema. Progress of Wound: Stable Objective Data Objective Data Vital Signs: Vital Signs Temp Pulse Resp BP 95.9 F L 99 18 181/92 H 11/12/21 14:13 11/09/21 00:29 11/09/21 00:29 11/09/21 00:29 Body Mass Index (BMI) 47.7 Physical Exam Narrative Const alert and oriented x3 General Appearance: cooperative HEENT normocephalic Extremity Extremity Narrative: No calf tenderness, no calor, negative Tammie and Andrade sign Diminished pulses Compartments remain soft to palpate right lower extremity General Extremity: edema especially to right lower extremity. No tenderness to palpation of joints or extremities; Negative for cyanosis. No gross laxity crepitus or pain with attempted passive manipulation of the midfoot at his prior Charcot site. Skin Skin Narrative: Serosanguineous mild/decreased drainage noted from plantar foot. There is no malodor noted today. deep tissue probing noted and increased. This is granulation tissue noted upon debridement with continued depth of the deep tunnel to the midfoot and not directly to bone. Resolved maceration. No bogginess or fluctuance on palpation. General Skin Exam: Negative for erythema MSK Muscle wasting noted Charcot foot with rocker-bottom deformity and fourth and fifth ray resection right. Partial second toe amputation. No new laxity of the midfoot noted Neuro Neuro Narrative: lack of normal epicritic sensation via light touch is consistent with neuropathy status Psych cooperative and affect normal Debridement Note Debridement Note Wound debrided: Plantar right foot Wound Grade/Stage: 1 Type of Debridement: Excisional debridement Anesthesia Used: 4% Lidocaine Solution Depth: in the subcutaneous layer Percentage of wound debrided: 100 Instrument Used: #15 blade Tissue Removed: fibrous, devitalized subcutaneous, biofilm, slough Severity: Fat Layer Exposed Amount of bleeding with debridement: Mild Bleeding Controlled with: Pressure Patient tolerated procedure: Patient tolerated procedure well Post-Debridement Measurements and Additional Note: Post-Debridement Measurements/Treatment - Nurse 1 - General Ulcer Assessment Start: 11/12/21 14:12 Freq: Status: Active Protocol: NIGEL Activity Type Activity Date Activity User E-Sign Co-Sign Detail Recorded Client Recorded Date Recorded By Document 11/12/21 14:13 MA [id number] 11/12/21 14:21 MA 11/12/21 14:13 WC - Today's Visit Information Type of service Follow-up Visit (Physician/PSYCHODRAMATIST ) Arrival Mode Ambulatory Arrival Mode (Other) knee walker Patient Identification Verified (Name & Yes ) Patient Requires Transmission-Based No Precautions Safety Precautions NA Height and Weight Body Mass Index (BMI) 47.7 BMI Classification Obese Vital Signs Temperature (97.8 F-99.1 F) 95.9 F L Temperature Source Temporal History Since Last Visit- (Skip if this is Patient's initial visit) Have you changed medications since your No last visit? Any new allergies or adverse reactions No Had a fall/change in ADL's that may No increase risk of falls Signs or symptoms of abuse and/or No neglect since last visit Have you been in the hospital since your No last visit? Has dressing in place as prescribed Yes Has compression in place as prescribed Yes Has offloadiing in place as prescribed N/A Experienced any changes in pain level or No management Left Footwear Regular Shoe Right Footwear Regular Shoe Pain Scale: 0-10 Numeric Is Patient Pain Free? Yes [facility] Nurse 1 - General Ulcer Measurement Start: 11/12/21 14:12 Freq: Status: Active Protocol: Activity Type Activity Date Activity User E-Sign Co-Sign Detail Recorded Client Recorded Date Recorded By Document 11/12/21 14:13 MA [id number] 11/12/21 14:21 MA 11/12/21 14:13 Wound Center Nurse 1 #9 R Plantar -Combined with other wound No -Current Size (cm) - Length 0.8 -Current Size (cm) - Width 1.5 -Current Size (cm) - Depth 2.6 -Total Square Cm 1.20 -Photo Taken No -Tunneling No -Undermining/Tunneling No -Circular Undermining No -Change in Wound Grade/Stage No -Exudate Amt Large -Exudate Type Yellow/Green -Wound Margin Distinct, Outline Attached -Granulation Amt None Present (0 %) -Granulation Quality N/A -Slough/Fibrin Yes -Necrosis Amt Large (67-100%) -Necrotic Tissue Type Adherent Slough -Structure Exposed N/A -Texture (Michelle-wound Skin Appearance) Assessed,Callus -Moisture (Michelle-wound Skin Appearance) Assessed, Maceration -Color (Michelle-wound Skin Appearance) No Abnormality, Assessed -Temperature (Michelle-wound Skin No Abnormality Appearance) (Pt Warm) -Tenderness on Palpation (Michelle-wound Yes Skin Appearance) -Ulcer Cleansing Rinsed/ Irrigated with Saline -Foul Odor after Cleansing No -Anesthetic Used 4% Lidocaine Solution Right Calf (cm) 54 Right Ankle (cm) 32 WC - Nurse 2 - General Ulcer CM Notes Start: 11/12/21 14:12 Freq: Status: Active Protocol: Activity Type Activity Date Activity User E-Sign Co-Sign Detail Recorded Client Recorded Date Recorded By Document 11/12/21 15:07 JERSON [id number] 11/12/21 15:12 JERSON 11/12/21 15:07 Wound Center Nurse 2 #9 R Plantar -Time 15:11 -Correct Patient Yes -Correct Side, Site, Position Yes -Correct Procedure Yes -Procedure Performed Yes -Type of Procedure Debridement -Clinical Debridement Subcutaneous -Tissue Removed Subcutaneous -Post Debridement (cm) - Length 0.8 -Post Debridement (cm) - Width 1.6 -Post Debridement (cm) - Depth 5.2 -Total Square (Post) (cm) 1.28 -Area of Debridement (cm) - Length 0.8 -Area of Debridement (cm) - Width 1.6 -Total Square (Area) (cm) 1.28 -Undermining/Tunneling No -Circular Undermining No -Wound/Ulcer Outcome Not Healed -Ulcer Cleansing Rinsed/ Irrigated with Saline -Foul Odor after Cleansing No -Bioengineered Tissue No -Bleeding Controlled with Pressure -Treatment Response Procedure Tolerated Well -Offloading Yes -Type of Offloading Knee Walker -Debridement - Subq, 1st 20sq cm Yes Pain Scale: 0-10 Numeric Is Patient Pain Free? Yes - Nurse 3 - General Ulcer D/C NN Start: 11/12/21 14:12 Freq: Status: Active Protocol: Activity Type Activity Date Activity User E-Sign Co-Sign Detail Recorded Client Recorded Date Recorded By Document 11/12/21 15:14 MA [id number] 11/12/21 15:16 MA 11/12/21 15:14 Wound Care Nurse 3 #9 R Plantar -Ulcer Cleansing Rinsed/ Irrigated with Saline -Foul Odor after Cleansing No -Negative Pressure Wound Therapy N/A -Primary Dressing Applied Aquacel AG 4x4, Optilok 6.5x10 -Other Dressing ABD -Primary Dressing Covered/Secured with Dry Gauze, Secured with Tape -Aquacel AG 4x4 1 -Optilok 6.5x10 1 Right -Lotion applied to leg before No compression wrap -Tubular Bandage Single Layer -Size of Tubigrip Used Size F -Size F ($) 1 Pain Scale: 0-10 Numeric Is Patient Pain Free? Yes WC - Visit Discharge Discharge Condition Stable Ambulatory Status Ambulatory, Walker Transportation Private Auto Medication Reconcilliation completed & Yes provided to patient/care provider Clinical Summary of Care Provided Yes Assessment/Plan Assessment/Plan (1) Non-pressure chronic ulcer of other part of right foot with fat layer exposed: CODE(S): L97.512 - Non-pressure chronic ulcer of other part of right foot with fat layer exposed (2) Type 2 diabetes mellitus with diabetic polyneuropathy: CODE(S): E11.42 - Type 2 diabetes mellitus with diabetic polyneuropathy QUALIFIERS: Diabetes mellitus population health manager insulin use: unspecified population health manager insulin use status Qualified Code(s): E11.42 - Type 2 diabetes me llitus with diabetic polyneuropathy (3) Osteomyelitis: CODE(S): M86.9 - Osteomyelitis, unspecified QUALIFIERS: Osteomyelitis type: other acute Osteomyelitis location: foot Laterality: right Qualified Code(s): M86.171 - Other acute osteomyelitis, right ankle and foot (4) Tobacco abuse: CODE(S): Z72.0 - Tobacco use (5) Venous insufficiency: CODE(S): I87.2 - Venous insufficiency (chronic) (peripheral) (6) Bilateral lower extremity edema: CODE(S): R60.0 - Localized edema (7) Charcot's joint, right ankle and foot: CODE(S): M14.671 - Charcot's joint, right ankle and foot PLAN: Patient seen and examined. His status has stabilized. Debridement was performed as noted in the clinical panel. Dressings: Aquacel Ag rope and secondary gauze dressing. Defers total contact cast due to concern of adequate transportation to remove this on time. Infection: He does have a history of recurrent ulcers with infections and even osteomyelitis. He was previously seen by infectious disease. There are no local or systemic signs of illness today however his worsening status is a concern. To monitor for development of these signs and to call immediately if these are noted. Diagnostic data: I recommend updating his labs including CBC, CMP, ESR, C- reactive protein. Also recommend updating a foot x-ray. He obtained three foot xrays on 10/06/21 which was stable without acute findings. No soft tissue emphysema, foreign body, fractures noted. there is charcot midfoot with dislocations and coalesced fragmentation. Labs from 10/06/21 with wbc 8.4, esr 66, crp, 31.60, est gfr 97. Offloading: Patient to remain nonweightbearing to the right lower extremity. Use wheelchair or knee walker / roller. Patient is noted to also have gotten an electric scooter in order to offload his foot. He is at risk for further amputation of foot or leg. He has a [place] walker ready at [facility] once healed. He relates this is no longer known at this time so I gave him a new prescription previously. Edema: To elevate limb at rest, reduce salt in diet, and perform muscular routine contraction of the lower extremity. I also recommend Tubigrip application. I would like to see him in a graduated edema management compression garment such as a Farrow wrap. He has an open wound to lower extremity and is at risk for limb loss continued infection and surgical intervention. I recommend Glen for nutritional supplementation to optimize healing. All questions answered. To follow-up 1 week. Note: [employer] speech recognition mechanical integrity engineer software was used to create portions of this document. Sound-alike and misspelled words, as well as other mechanical integrity engineer errors may be contained in the documentation.
[2021-11-19 14:41] VITALS: BP 136/81; PULSE 96; RESP 20; TEMP 35.8; BMI 47.7
--- NOTE | 2021-11-19 21:44 | PN.PCM_ITS ---
History of Present Illness Date of Service: 11/19/21 Chief Complaint: right ulcer to the bottom of the foot History of Wound: Patient is a 51-year-old male who presents to the wound care center for follow-up complicated right foot ulcers with history of Charcot and osteomyelitis history. He denies redness or odor, fever, chills, nausea or vomiting today. The onset of this recent plantar foot ulcer was July 25, 2021. He denies odor or redness. He reports continued drainage. He has been consistent with offloading with a knee roller. He denies redness or streaking to the leg. He denies odors. He also has lower extremity edema. Progress of Wound: Stable Objective Data Objective Data Vital Signs: Vital Signs Temp Pulse Resp BP 96.5 F L 96 20 H 136/81 H 11/19/21 14:41 11/19/21 14:41 11/19/21 14:41 11/19/21 14:41 Body Mass Index (BMI) 47.7 Physical Exam Narrative Const alert and oriented x3 General Appearance: cooperative HEENT normocephalic Extremity Extremity Narrative: No calf tenderness, no calor, negative Tammie and Andrade sign Diminished pulses Compartments remain soft to palpate right lower extremity General Extremity: edema especially to right lower extremity. No tenderness to palpation of joints or extremities; Negative for cyanosis. No gross laxity crepitus or pain with attempted passive manipulation of the midfoot at his prior Charcot site. Skin Skin Narrative: Serosanguineous moderate drainage noted from plantar foot. There is no malodor noted today. deep tissue probing noted and increased. This is granulation tissue noted upon debridement with continued depth of the deep tunnel to the midfoot and not directly to bone. Resolved maceration. No bogginess or fluctuance on palpation. General Skin Exam: Negative for erythema MSK Muscle wasting noted Charcot foot with rocker-bottom deformity and fourth and fifth ray resection right. Partial second toe amputation. No new laxity of the midfoot noted Neuro Neuro Narrative: lack of normal epicritic sensation via light touch is consistent with neuropathy status Psych cooperative and affect normal Debridement Note Debridement Note Wound debrided: plantar right foot Wound Grade/Stage: 1 Type of Debridement: Excisional debridement Anesthesia Used: 4% Lidocaine Solution Depth: in the subcutaneous layer Percentage of wound debrided: 100 Instrument Used: #15 blade Tissue Removed: fibrous, devitalized subcutaneous, biofilm, slough Severity: Fat Layer Exposed Amount of bleeding with debridement: Mild Bleeding Controlled with: Pressure Patient tolerated procedure: Patient tolerated procedure well Post-Debridement Measurements and Additional Note: Post-Debridement Measurements/Treatment - Nurse 1 - General Ulcer Assessment Start: 11/12/21 14:12 Freq: Status: Active Protocol: SANDEEP.LOWEXT Activity Type Activity Date Activity User E-Sign Co-Sign Detail Recorded Client Recorded Date Recorded By Document 11/12/21 14:13 AK [id number] 11/12/21 14:21 AK Document 11/19/21 14:41 DL [id number] 11/19/21 14:50 DL 11/12/21 11/19/21 14:13 14:41 WC - Today's Visit Information Type of service Follow-up Visit Follow-up Visit (Physician/TAVERN KEEPER (Physician/TAVERN KEEPER ) ) Arrival Mode Ambulatory Walker Arrival Mode (Other) knee walker Knee Walker Transfer Assistance None Patient Identification Verified (Name & Yes Yes ) Patient Requires Transmission-Based No No Precautions Safety Precautions NA Finger Stick Blood Sugar(mg/dl) (if 134 indicated): Height and Weight Body Mass Index (BMI) 47.7 47.7 BMI Classification Obese Obese Vital Signs Temperature (97.8 F-99.1 F) 95.9 F L 96.5 F L Temperature Source Temporal Temporal Pulse Rate (60-100) 96 Pulse Location Monitor Respiratory Rate (12-18) 20 H Respiratory rate source Observation Blood Pressure (90/60-120/80) 136/81 H Blood Pressure Mean (mm Hg) 99 History Since Last Visit- (Skip if this is Patient's initial visit) Have you changed medications since your No No last visit? Any new allergies or adverse reactions No No Had a fall/change in ADL's that may No No increase risk of falls Signs or symptoms of abuse and/or No No neglect since last visit Have you been in the hospital since your No last visit? Has dressing in place as prescribed Yes Yes Has compression in place as prescribed Yes Yes Has offloadiing in place as prescribed N/A Yes Experienced any changes in pain level or No No management Left Footwear Regular Shoe Right Footwear Regular Shoe Pain Scale: 0-10 Numeric Is Patient Pain Free? Yes Yes - Nurse 1 - General Ulcer Measurement Start: 11/12/21 14:12 Freq: Status: Active Protocol: Activity Type Activity Date Activity User E-Sign Co-Sign Detail Recorded Client Recorded Date Recorded By Document 11/12/21 14:13 AK [id number] 11/12/21 14:21 AK Document 11/19/21 14:41 DL [id number] 11/19/21 14:50 DL 11/12/21 11/19/21 14:13 14:41 Wound Center Nurse 1 #9 R Plantar -Combined with other wound No -Current Size (cm) - Length 0.8 0.7 -Current Size (cm) - Width 1.5 1.2 -Current Size (cm) - Depth 2.6 3.5 -Total Square Cm 1.20 0.84 -Photo Taken No No -Tunneling No -Undermining/Tunneling No -Circular Undermining No -Change in Wound Grade/Stage No -Exudate Amt Large Large -Exudate Type Yellow/Green Yellow/Green -Wound Margin Distinct, Distinct, Outline Outline Attached Attached -Granulation Amt None Present (0 Large (67-100%) %) -Granulation Quality N/A -Slough/Fibrin Yes -Necrosis Amt Large (67-100%) Small (1-33%) -Necrotic Tissue Type Adherent Slough Adherent Slough -Structure Exposed N/A N/A -Texture (Michelle-wound Skin Appearance) Assessed,Callus Localized Edema ,Scarring -Moisture (Michelle-wound Skin Appearance) Assessed, Dry/Scaly Maceration -Color (Michelle-wound Skin Appearance) No Abnormality, Erythema, Assessed Hemosiderin Staining -Temperature (Michelle-wound Skin No Abnormality No Abnormality Appearance) (Pt Warm) (Pt Warm) -Tenderness on Palpation (Michelle-wound Yes No Skin Appearance) -Ulcer Cleansing Rinsed/ Soap and Water Irrigated with Saline -Foul Odor after Cleansing No No -Anesthetic Used 4% Lidocaine 4% Lidocaine Solution Solution Right Calf (cm) 54 51 Right Ankle (cm) 32 35 WC - Nurse 2 - General Ulcer CM Notes Start: 11/12/21 14:12 Freq: Status: Active Protocol: Activity Type Activity Date Activity User E-Sign Co-Sign Detail Recorded Client Recorded Date Recorded By Document 11/12/21 15:07 JERSON [id number] 11/12/21 15:12 Document 11/19/21 15:11 [id number] 11/19/21 15:14 11/12/21 11/19/21 15:07 15:11 Wound Center Nurse 2 #9 R Plantar -Time 15:11 15:12 -Correct Patient Yes Yes -Correct Side, Site, Position Yes Yes -Correct Procedure Yes Yes -Procedure Performed Yes Yes -Type of Procedure Debridement Debridement -Clinical Debridement Subcutaneous Subcutaneous -Tissue Removed Subcutaneous Subcutaneous -Post Debridement (cm) - Length 0.8 0.9 -Post Debridement (cm) - Width 1.6 1.5 -Post Debridement (cm) - Depth 5.2 4.3 -Total Square (Post) (cm) 1.28 1.35 -Area of Debridement (cm) - Length 0.8 0.9 -Area of Debridement (cm) - Width 1.6 1.5 -Total Square (Area) (cm) 1.28 1.35 -Tunneling No -Undermining/Tunneling No No -Circular Undermining No No -Wound/Ulcer Outcome Not Healed Not Healed -Ulcer Cleansing Rinsed/ Irrigated with Saline -Foul Odor after Cleansing No No -Bioengineered Tissue No No -Bleeding Controlled with Pressure Pressure -Treatment Response Procedure Procedure Tolerated Well Tolerated Well -Offloading Yes No -Type of Offloading Knee Walker -Debridement - Subq, 1st 20sq cm Yes Yes Pain Scale: 0-10 Numeric Is Patient Pain Free? Yes Yes WC - Nurse 3 - General Ulcer D/C NN Start: 11/12/21 14:12 Freq: Status: Active Protocol: Activity Type Activity Date Activity User E-Sign Co-Sign Detail Recorded Client Recorded Date Recorded By Document 11/12/21 15:14 SC [id number] 11/12/21 15:16 SC Document 11/19/21 15:32 SC [id number] 11/19/21 15:33 AK 11/12/21 11/19/21 15:14 15:32 Wound Care Nurse 3 #9 R Plantar -Ulcer Cleansing Rinsed/ Rinsed/ Irrigated with Irrigated with Saline Saline -Foul Odor after Cleansing No No -Negative Pressure Wound Therapy N/A N/A -Primary Dressing Applied Aquacel AG 4x4, Aquacel AG 2x2 Optilok 6.5x10 -Other Dressing ABD ABD -Primary Dressing Covered/Secured with Dry Gauze, Secured with Tape -Aquacel AG 4x4 1 -Aquacel AG 2x2 1 -Optilok 6.5x10 1 Right -Lotion applied to leg before No No compression wrap -Multi-Layered Wrap Application Multi-Layer Comp - Right ($ ) -Tubular Bandage Single Layer -Size of Tubigrip Used Size F -Size F ($) 1 Pain Scale: 0-10 Numeric Is Patient Pain Free? Yes Yes WC - Visit Discharge Discharge Condition Stable Stable Ambulatory Status Ambulatory, Walker Walker Transportation Private Auto Private Auto Medication Reconcilliation completed & Yes Yes provided to patient/care provider Clinical Summary of Care Provided Yes Yes Assessment/Plan Assessment/Plan (1) Non-pressure chronic ulcer of other part of right foot with fat layer exposed: CODE(S): L97.512 - Non-pressure chronic ulcer of other part of right foot with fat layer exposed (2) Type 2 diabetes mellitus with diabetic polyneuropathy: CODE(S): E11.42 - Type 2 diabetes mellitus with diabetic polyneuropathy QUALIFIERS: Diabetes mellitus senior living insulin use: unspecified senior living insulin use status Qualified Code(s): E11.42 - Type 2 diabetes mellitus with diabetic polyneuropathy (3) Osteomyelitis: CODE(S): M86.9 - Osteomyelitis, unspecified QUALIFIERS: Laterality: right Osteomyelitis location: foot Osteomyelitis type: other acute Qualified Code(s): M86.171 - Other acute osteomyelitis, right ankle and foot (4) Tobacco abuse: CODE(S): Z72.0 - Tobacco use (5) Venous insufficiency: CODE(S): I87.2 - Venous insufficiency (chronic) (peripheral) (6) Bilateral lower extremity edema: CODE(S): R60.0 - Localized edema (7) Charcot's joint, right ankle and foot: CODE(S): M14.671 - Charcot's joint, right ankle and foot PLAN: Patient seen and examined. His status has stabilized. Debridement was performed as noted in the clinical panel. Dressings: Aquacel Ag rope and secondary gauze dressing. Defers total contact cast due to concern of adequate transportation to remove this on time. Infection: He does have a history of recurrent ulcers with infections and even osteomyelitis. He was previously seen by infectious disease. There are no local or systemic signs of illness today however his worsening status is a concern. To monitor for development of these signs and to call immediately if these are noted. Diagnostic data: I recommend updating his labs including CBC, CMP, ESR, C- reactive protein. Also recommend updating a foot x-ray. He obtained three foot xrays on 10/06/21 which was stable without acute findings. No soft tissue e mphysema, foreign body, fractures noted. there is charcot midfoot with dislocations and coalesced fragmentation. Labs from 10/06/21 with wbc 8.4, esr 66, crp, 31.60, est gfr 97. Offloading: Patient to remain nonweightbearing to the right lower extremity. Use wheelchair or knee walker / roller. Patient is noted to also have gotten an electric scooter in order to offload his foot. He is at risk for further amputation of foot or leg. He has a [employer] walker ready at [facility] once healed. He relates this is no longer known at this time so I gave him a new prescription previously. Edema: To elevate limb at rest, reduce salt in diet, and perform muscular routine contraction of the lower extremity. I also recommend Tubigrip application. I would like to see him in a graduated edema management compression garment such as a Farrow wrap. He has an open wound to lower extremity and is at risk for limb loss continued infection and surgical intervention. I recommend [facility] for nutritional supplementation to optimize healing. All questions answered. To follow-up 1 week. Note: [employer] speech recognition blind stitch machine operator software was used to create portions of this document. Sound-alike and misspelled words, as well as other blind stitch machine operator errors may be contained in the documentation.
[2021-11-26 14:29] VITALS: BP 159/92; PULSE 96; TEMP 36.4; BMI 47.7
--- NOTE | 2021-11-26 15:42 | PCM.WC.PN ---
History of Present Illness Date of Service: 11/26/21 Chief Complaint: right ulcer to the bottom of the foot History of Wound: Patient is a 51-year-old male who presents to the wound care center for follow-up complicated right foot ulcers with history of Charcot and osteomyelitis history. He denies redness or odor, fever, chills, nausea or vomiting today. The onset of this recent plantar foot ulcer was July 25, 2021. He denies odor or redness. He reports continued drainage. He has been consistent with offloading with a knee roller. He denies redness or streaking to the leg. He denies odors. He also has lower extremity edema. Progress of Wound: improving Objective Data Objective Data Vital Signs: Vital Signs Temp Pulse Resp BP 97.6 F L 96 20 H 159/92 H 11/26/21 14:29 11/26/21 14:29 11/19/21 14:41 11/26/21 14:29 Body Mass Index (BMI) 47.7 Debridement Note Debridement Note Wound debrided: right plantar foot Wound Grade/Stage: 1 Type of Debridement: Excisional debridement Anesthesia Used: 4% Lidocaine Solution Depth: in the subcutaneous layer Percentage of wound debrided: 100 Instrument Used: #15 blade Tissue Removed: fibrous, devitalized subcutaneous, biofilm, slough Severity: Fat Layer Exposed Amount of bleeding with debridement: Mild Bleeding Controlled with: Pressure Patient tolerated procedure: Patient tolerated procedure well Post-Debridement Measurements and Additional Note: Post-Debridement Measurements/Treatment - Nurse 1 - General Ulcer Assessment Start: 11/12/21 14:12 Freq: Status: Active Protocol: NIGEL Activity Type Activity Date Activity User E-Sign Co-Sign Detail Recorded Client Recorded Date Recorded By Document 11/12/21 14:13 AK [id number] 11/12/21 14:21 AK Document 11/19/21 14:41 DL [id number] 11/19/21 14:50 DL Document 11/26/21 14:29 KR [id number] 11/26/21 14:36 KR 11/12/21 11/19/21 11/26/21 14:13 14:41 14:29 - Today's Visit Information Type of service Follow-up Visit Follow-up Visit Follow-up Visit (Physician/MEMBER OF TECHNICAL STAFF (Physician/MEMBER OF TECHNICAL STAFF (Physician/MEMBER OF TECHNICAL STAFF ) ) ) Arrival Mode Ambulatory Walker Ambulatory, Walker Arrival Mode (Other) knee walker Knee Walker Transfer Assistance None Patient Identification Verified (Name & Yes Yes Yes ) Patient Requires Transmission-Based No No Precautions Safety Precautions NA Finger Stick Blood Sugar(mg/dl) (if 134 indicated): Height and Weight Body Mass Index (BMI) 47.7 47.7 47.7 BMI Classification Obese Obese Obese Vital Signs Temperature (97.8 F-99.1 F) 95.9 F L 96.5 F L 97.6 F L Temperature Source Temporal Temporal Temporal Pulse Rate (60-100) 96 96 Pulse Location Monitor Monitor Respiratory Rate (12-18) 20 H Respiratory rate source Observation Blood Pressure (90/60-120/80) 136/81 H 159/92 H Blood Pressure Mean (mm Hg) 99 114 Source Monitor Position Sitting Blood Pressure Location Left Arm History Since Last Visit- (Skip if this is Patient's initial visit) Have you changed medications since your No No No last visit? Any new allergies or adverse reactions No No No Had a fall/change in ADL's that may No No No increase risk of falls Signs or symptoms of abuse and/or No No No neglect since last visit Have you been in the hospital since your No No last visit? Has dressing in place as prescribed Yes Yes Yes Has compression in place as prescribed Yes Yes Yes Has offloadiing in place as prescribed N/A Yes N/A Experienced any changes in pain level or No No management Left Footwear Regular Shoe Regular Shoe Right Footwear Regular Shoe No Footwear Pain Scale: 0-10 Numeric Is Patient Pain Free? Yes Yes Yes WC - Nurse 1 - General Ulcer Measurement Start: 11/12/21 14:12 Freq: Status: Active Protocol: Activity Type Activity Date Activity User E-Sign Co-Sign Detail Recorded Client Recorded Date Recorded By Document 11/12/21 14:13 AK [id number] 11/12/21 14:21 AK Document 11/19/21 14:41 DL [id number] 11/19/21 14:50 DL Document 11/26/21 14:29 KR [id number] 11/26/21 14:36 KR 11/12/21 11/19/21 11/26/21 14:13 14:41 14:29 Wound Center Nurse 1 #9 R Plantar -Combined with other wound No -Current Size (cm) - Length 0.8 0.7 1.3 -Current Size (cm) - Width 1.5 1.2 4.7 -Current Size (cm) - Depth 2.6 3.5 3.7 -Total Square Cm 1.20 0.84 6.11 -Photo Taken No No -Tunneling No -Undermining/Tunneling No -Circular Undermining No -Change in Wound Grade/Stage No -Exudate Amt Large Large Large -Exudate Type Yellow/Green Yellow/Green Serosanguineous -Wound Margin Distinct, Distinct, Distinct, Outline Outline Outline Attached Attached Attached -Granulation Amt None Present (0 Large (67-100%) Medium (34-66%) %) -Granulation Quality N/A [place] -Slough/Fibrin Yes -Necrosis Amt Large (67-100%) Small (1-33%) Small (1-33%) -Necrotic Tissue Type Adherent Slough Adherent Slough Adherent Slough -Structure Exposed N/A N/A -Texture (Michelle-wound Skin Appearance) Assessed,Callus Localized Edema Assessed, ,Scarring Scarring -Moisture (Michelle-wound Skin Appearance) Assessed, Dry/Scaly No Abnormality, Maceration Assessed -Color (Michelle-wound Skin Appearance) No Abnormality, Erythema, No Abnormality, Assessed Hemosiderin Assessed Staining -Temperature (Michelle-wound Skin No Abnormality No Abnormality No Abnormality Appearance) (Pt Warm) (Pt Warm) (Pt Warm) -Tenderness on Palpation (Michelle-wound Yes No No Skin Appearance) -Ulcer Cleansing Rinsed/ Soap and Water Soap and Water Irrigated with Saline -Foul Odor after Cleansing No No -Anesthetic Used 4% Lidocaine 4% Lidocaine 5% Lidocaine Solution Solution Gel Right Calf (cm) 54 51 Right Ankle (cm) 32 35 - Nurse 2 - General Ulcer CM Notes Start: 11/12/21 14:12 Freq: Status: Active Protocol: Activity Type Activity Date Activity User E-Sign Co-Sign Detail Recorded Client Recorded Date Recorded By Document 11/12/21 15:07 JERSON [id number] 11/12/21 15:12 Document 11/19/21 15:11 JERSON [id number] 11/19/21 15:14 Document 11/26/21 15:02 [id number] 11/26/21 15:07 11/12/21 11/19/21 11/26/21 15:07 15:11 15:02 Wound Center Nurse 2 #9 R Plantar -Time 15:11 15:12 15:04 -Correct Patient Yes Yes Yes -Correct Side, Site, Position Yes Yes Yes -Correct Procedure Yes Yes Yes -Procedure Performed Yes Yes Yes -Type of Procedure Debridement Debridement Debridement -Clinical Debridement Subcutaneous Subcutaneous Subcutaneous -Tissue Removed Subcutaneous Subcutaneous Subcutaneous -Post Debridement (cm) - Length 0.8 0.9 0.5 -Post Debridement (cm) - Width 1.6 1.5 0.8 -Post Debridement (cm) - Depth 5.2 4.3 3.0 -Total Square (Post) (cm) 1.28 1.35 0.40 -Area of Debridement (cm) - Length 0.8 0.9 0.5 -Area of Debridement (cm) - Width 1.6 1.5 0.8 -Total Square (Area) (cm) 1.28 1.35 0.40 -Tunneling No No -Undermining/Tunneling No No No -Circular Undermining No No No -Wound/Ulcer Outcome Not Healed Not Healed Not Healed -Ulcer Cleansing Rinsed/ Rinsed/ Irrigated with Irrigated with Saline Saline -Foul Odor after Cleansing No No No -Bioengineered Tissue No No No -Bleeding Controlled with Pressure Pressure Pressure -Treatment Response Procedure Procedure Procedure Tolerated Well Tolerated Well Tolerated Well -Offloading Yes No Yes -Type of Offloading Knee Walker Knee Walker -Debridement - Subq, 1st 20sq cm Yes Yes Yes Pain Scale: 0-10 Numeric Is Patient Pain Free? Yes Yes Yes - Nurse 3 - General Ulcer D/C NN Start: 11/12/21 14:12 Freq: Status: Active Protocol: Activity Type Activity Date Activity User E-Sign Co-Sign Detail Recorded Client Recorded Date Recorded By Document 11/12/21 15:14 AK [id number] 11/12/21 15:16 AK Document 11/19/21 15:32 AK [id number] 11/19/21 15:33 AK Document 11/26/21 15:17 AK [id number] 11/26/21 15:18 AK 11/12/21 11/19/21 11/26/21 15:14 15:32 15:17 Wound Care Nurse 3 #9 R Plantar -Ulcer Cleansing Rinsed/ Rinsed/ Rinsed/ Irrigated with Irrigated with Irrigated with Saline Saline Saline -Foul Odor after Cleansing No No No -Negative Pressure Wound Therapy N/A N/A N/A -Primary Dressing Applied Aquacel AG 4x4, Aquacel AG 2x2 Aquacel AG 2x2 Optilok 6.5x10 -Other Dressing ABD ABD -Primary Dressing Covered/Secured with Dry Gauze, Secured with Tape -Other Covering 2 ABD pads -Aquacel AG 4x4 1 -Aquacel AG 2x2 1 1 -Optilok 6.5x10 1 Right -Lotion applied to leg before No No compression wrap -Multi-Layered Wrap Application Multi-Layer Comp - Right ($ ) -Tubular Bandage Single Layer -Size of Tubigrip Used Size F -Size F ($) 1 Pain Scale: 0-10 Numeric Is Patient Pain Free? Yes Yes Yes WC - Visit Discharge Discharge Condition Stable Stable Stable Ambulatory Status Ambulatory, Walker Walker Walker Transportation Private Auto Private Auto Private Auto Medication Reconcilliation completed & Yes Yes Yes provided to patient/care provider Clinical Summary of Care Provided Yes Yes Yes Assessment/Plan Assessment/Plan (1) Non-pressure chronic ulcer of other part of right foot with fat layer exposed: CODE(S): L97.512 - Non-pressure chronic ulcer of other part of right foot with fat layer exposed (2) Type 2 diabetes mellitus with diabetic polyneuropathy: CODE(S): E11.42 - Type 2 diabetes mellitus with diabetic polyneuropathy QUALIFIERS: Diabetes mellitus terminal supervisor insulin use: unspecified terminal supervisor insulin use status Qualified Code(s): E11.42 - Type 2 diabetes mellitus with diabetic polyneuropathy (3) Osteomyelitis: CODE(S): M86.9 - Osteomyelitis, unspecified QUALIFIERS: Osteomyelitis type: other acute Osteomyelitis location: foot Laterality: right Qualified Code(s): M86.171 - Other acute osteomyelitis, right ankle and foot (4) Tobacco abuse: CODE(S): Z72.0 - Tobacco use (5) Venous insufficiency: CODE(S): I87.2 - Venous insufficiency (chronic) (peripheral) (6) Bilateral lower extremity edema: CODE(S): R60.0 - Localized edema (7) Charcot's joint, right ankle and foot: CODE(S): M14.671 - Charcot's joint, right ankle and foot PLAN: Patient seen and examined. His status has stabilized. Debridement was performed as noted in the clinical panel. Dressings: Aquacel Ag rope and secondary gauze dressing. Defers total contact cast due to concern of adequate transportation to remove this on time. Infection: He does have a history of recurrent ulcers with infections and even osteomyelitis. He was previously seen by infectious disease. There are no local or systemic signs of illness today however his worsening status is a concern. To monitor for development of these signs and to call immediately if these are noted. Diagnostic data: I recommend updating his labs including CBC, CMP, ESR, C-reactive protein. Also recommend updating a foot x-ray. He obtained three foot xrays on 10/06/21 which was stable without acute findings. No soft tissue emphysema, foreign body, fractures noted. there is charcot midfoot with dislocations and coalesced fragmentation. Labs from 10/06/21 with wbc 8.4, esr 66, crp, 31.60, est gfr 97. Offloading: Patient to remain nonweightbearing to the right lower extremity. Use wheelchair or knee walker / roller. Patient is noted to also have gotten an electric scooter in order to offload his foot. He is at risk for further amputation of foot or leg. He has a [place] walker ready at [facility] once healed. He relates this is no longer known at this time so I gave him a new prescription previously. Edema: To elevate limb at rest, reduce salt in diet, and perform muscular routine contraction of the lower extremity. I also recommend 3M2L dressing application. I would like to see him in a graduated edema management compression garment such as a [place] wrap. He has an open wound to lower extremity and is at risk for limb loss continued infection and surgical intervention. I recommend [place] for nutritional supplementation to optimize healing. All questions answered. To follow-up 1 week. Note: [email or web address] speech recognition dialysis biomed technician software was used to create portions of this document. Sound-alike and misspelled words, as well as other dialysis biomed technician errors may be contained in the documentation.
[2021-12-03 14:56] VITALS: BP 191/88; PULSE 107; RESP 20; TEMP 36.4; BMI 47.7
--- NOTE | 2021-12-03 16:43 | PN.PCM_ITS ---
History of Present Illness Date of Service: 12/03/21 Chief Complaint: right ulcer to the bottom of the foot History of Wound: Patient is a 51-year-old male who presents to the wound care center for follow-up complicated right foot ulcers with history of Charcot and osteomyelitis history. He denies redness or odor, fever, chills, nausea or vomiting today. The onset of this recent plantar foot ulcer was July 25, 2021. He denies odor or redness. He reports continued drainage. He has been consistent with offloading with a knee roller. He denies redness or streaking to the leg. He denies odors. He also has lower extremity edema. He has been compliant. Progress of Wound: improving Objective Data Objective Data Vital Signs: Vital Signs Temp Pulse Resp BP 97.5 F L 107 H 20 H 191/88 H 12/03/21 14:56 12/03/21 14:56 12/03/21 14:56 12/03/21 14:56 Body Mass Index (BMI) 47.7 Physical Exam Narrative Const alert and oriented x3 General Appearance: cooperative HEENT normocephalic Extremity Extremity Narrative: No calf tenderness, no calor, negative Tammie and Andrade sign Diminished pulses Compartments remain soft to palpate right lower extremity General Extremity: edema especially to right lower extremity. No tenderness to palpation of joints or extremities; Negative for cyanosis. No gross laxity crepitus or pain with attempted passive manipulation of the midfoot at his prior Charcot site. Skin Skin Narrative: Serosanguineous moderate to mild drainage noted from plantar foot. There is no malodor noted today. deep tissue probing noted and increased. This is granulation tissue noted upon debridement with continued depth of the deep tunnel to the midfoot and not directly to bone. No maceration. No bogginess or fluctuance on palpation. General Skin Exam: Negative for erythema MSK Muscle wasting noted Charcot foot with rocker-bottom deformity and fourth and fifth ray resection right. Partial second toe amputation. No new laxity of the midfoot noted Neuro Neuro Narrative: lack of normal epicritic sensation via light touch is consistent with neuropathy status Psych cooperative and affect normal Debridement Note Debridement Note Wound debrided: plantar right foot Wound Grade/Stage: 1 Type of Debridement: Excisional debridement Anesthesia Used: 4% Lidocaine Solution Depth: in the subcutaneous layer Percentage of wound debrided: 100 Instrument Used: #15 blade Tissue Removed: fibrous, devitalized subcutaneous, biofilm, slough Severity: Fat Layer Exposed Amount of bleeding with debridement: Mild Bleeding Controlled with: Pressure Patient tolerated procedure: Patient tolerated procedure well Post-Debridement Measurements and Additional Note: Post-Debridement Measurements/Treatment - Nurse 1 - General Ulcer Assessment Start: 11/12/21 14:12 Freq: Status: Active Protocol: SANDEEP.LOWEXT Activity Type Activity Date Activity User E-Sign Co-Sign Detail Recorded Client Recorded Date Recorded By Document 11/12/21 14:13 AK [id number] 11/12/21 14:21 AK Document 11/19/21 14:41 DL [id number] 11/19/21 14:50 DL Document 11/26/21 14:29 KR [id number] 11/26/21 14:36 KR Document 12/03/21 14:56 DL [id number] 12/03/21 15:05 DL 11/12/21 11/19/21 11/26/21 14:13 14:41 14:29 - Today's Visit Information Type of service Follow-up Visit Follow-up Visit Follow-up Visit (Physician/HASHER OPERATOR (Physician/HASHER OPERATOR (Physician/HASHER OPERATOR ) ) ) Arrival Mode Ambulatory Walker Ambulatory, Walker Arrival Mode (Other) knee walker Knee Walker Transfer Assistance None Patient Identification Verified (Name & Yes Yes Yes ) Patient Requires Transmission-Based No No Precautions Safety Precautions NA Finger Stick Blood Sugar(mg/dl) (if 134 indicated): Blood Sugar Height and Weight Body Mass Index (BMI) 47.7 47.7 47.7 BMI Classification Obese Obese Obese Vital Signs Temperature (97.8 F-99.1 F) 95.9 F L 96.5 F L 97.6 F L Temperature Source Temporal Temporal Temporal Pulse Rate (60-100) 96 96 Pulse Location Monitor Monitor Respiratory Rate (12-18) 20 H Respiratory rate source Observation Blood Pressure (90/60-120/80) 136/81 H 159/92 H Blood Pressure Mean (mm Hg) 99 114 Source Monitor Position Sitting Blood Pressure Location Left Arm History Since Last Visit- (Skip if this is Patient's initial visit) Have you changed medications since your No No No last visit? Any new allergies or adverse reactions No No No Had a fall/change in ADL's that may No No No increase risk of falls Signs or symptoms of abuse and/or No No No neglect since last visit Have you been in the hospital since your No No last visit? Has dressing in place as prescribed Yes Yes Yes Has compression in place as prescribed Yes Yes Yes Has offloadiing in place as prescribed N/A Yes N/A Experienced any changes in pain level or No No management Left Footwear Regular Shoe Regular Shoe Right Footwear Regular Shoe No Footwear Pain Scale: 0-10 Numeric Is Patient Pain Free? Yes Yes Yes 12/03/21 14:56 - Today's Visit Information Type of service Follow-up Visit (Physician/HASHER OPERATOR ) Arrival Mode Ambulatory, Walker Arrival Mode (Other) knee walker Transfer Assistance None Patient Identification Verified (Name & Yes ) Patient Requires Transmission-Based No Precautions Safety Precautions Finger Stick Blood Sugar(mg/dl) (if 128 indicated): Blood Sugar Stated by Patient Height and Weight Body Mass Index (BMI) 47.7 BMI Classification Obese Vital Signs Temperature (97.8 F-99.1 F) 97.5 F L Temperature Source Temporal Pulse Rate (60-100) 107 H Pulse Location Monitor Respiratory Rate (12-18) 20 H Respiratory rate source Observation Blood Pressure (90/60-120/80) 191/88 H Blood Pressure Mean (mm Hg) 122 Source Monitor Position Blood Pressure Location History Since Last Visit- (Skip if this is Patient's initial visit) Have you changed medications since your No last visit? Any new allergies or adverse reactions No Had a fall/change in ADL's that may No increase risk of falls Signs or symptoms of abuse and/or No neglect since last visit Have you been in the hospital since your No last visit? Has dressing in place as prescribed Yes Has compression in place as prescribed Yes Has offloadiing in place as prescribed Yes Experienced any changes in pain level or No management Left Footwear Right Footwear Pain Scale: 0-10 Numeric Is Patient Pain Free? Yes - Nurse 1 - General Ulcer Measurement Start: 11/12/21 14:12 Freq: Status: Active Protocol: Activity Type Activity Date Activity User E-Sign Co-Sign Detail Recorded Client Recorded Date Recorded By Document 11/12/21 14:13 CHERI [id number] 11/12/21 14:21 AK Document 11/19/21 14:41 DL [id number] 11/19/21 14:50 DL Document 11/26/21 14:29 KR [id number] 11/26/21 14:36 KR Document 12/03/21 14:56 DL [id number] 12/03/21 15:05 DL 11/12/21 11/19/21 11/26/21 14:13 14:41 14:29 Wound Center Nurse 1 #9 R Plantar -Combined with other wound No -Current Size (cm) - Length 0.8 0.7 1.3 -Current Size (cm) - Width 1.5 1.2 4.7 -Current Size (cm) - Depth 2.6 3.5 3.7 -Total Square Cm 1.20 0.84 6.11 -Photo Taken No No -Tunneling No -Tunneling Position (O'clock) -Tunneling Distance (cm) -Undermining/Tunneling No -Circular Undermining No -Change in Wound Grade/Stage No -Exudate Amt Large Large Large -Exudate Type Yellow/Green Yellow/Green Serosanguineous -Wound Margin Distinct, Distinct, Distinct, Outline Outline Outline Attached Attached Attached -Granulation Amt None Present (0 Large (67-100%) Medium (34-66%) %) -Granulation Quality N/A [place] -Slough/Fibrin Yes -Necrosis Amt Large (67-100%) Small (1-33%) Small (1-33%) -Necrotic Tissue Type Adherent Slough Adherent Slough Adherent Slough -Structure Exposed N/A N/A -Texture (Michelle-wound Skin Appearance) Assessed,Callus Localized Edema Assessed, ,Scarring Scarring -Moisture (Michelle-wound Skin Appearance) Assessed, Dry/Scaly No Abnormality, Maceration Assessed -Color (Michelle-wound Skin Appearance) No Abnormality, Erythema, No Abnormality, Assessed Hemosiderin Assessed Staining -Temperature (Michelle-wound Skin No Abnormality No Abnormality No Abnormality Appearance) (Pt Warm) (Pt Warm) (Pt Warm) -Tenderness on Palpation (Michelle-wound Yes No No Skin Appearance) -Ulcer Cleansing Rinsed/ Soap and Water Soap and Water Irrigated with Saline -Foul Odor after Cleansing No No -Anesthetic Used 4% Lidocaine 4% Lidocaine 5% Lidocaine Solution Solution Gel Right Calf (cm) 54 51 Right Ankle (cm) 32 35 12/03/21 14:56 Wound Center Nurse 1 #9 R Plantar -Combined with other wound -Current Size (cm) - Length 1.5 -Current Size (cm) - Width 1.6 -Current Size (cm) - Depth 0.4 -Total Square Cm 2.40 -Photo Taken Yes -Tunneling -Tunneling Position (O'clock) 5 -Tunneling Distance (cm) 3.1 -Undermining/Tunneling -Circular Undermining -Change in Wound Grade/Stage -Exudate Amt Medium -Exudate Type Serosanguineous -Wound Margin Distinct, Outline Attached -Granulation Amt None Present (0 %) -Granulation Quality -Slough/Fibrin -Necrosis Amt Large (67-100%) -Necrotic Tissue Type Adherent Slough -Structure Exposed N/A -Texture (Michelle-wound Skin Appearance) Localized Edema ,Scarring -Moisture (Michelle-wound Skin Appearance) Maceration -Color (Michelle-wound Skin Appearance) Hemosiderin Staining -Temperature (Michelle-wound Skin No Abnormality Appearance) (Pt Warm) -Tenderness on Palpation (Michelle-wound No Skin Appearance) -Ulcer Cleansing Soap and Water -Foul Odor after Cleansing No -Anesthetic Used 5% Lidocaine Gel Right Calf (cm) 51.9 Right Ankle (cm) 31.8 WC - Nurse 2 - General Ulcer CM Notes Start: 11/12/21 14:12 Freq: Status: Active Protocol: Activity Type Activity Date Activity User E-Sign Co-Sign Detail Recorded Client Recorded Date Recorded By Document 11/12/21 15:07 [id number] 11/12/21 15:12 Document 11/19/21 15:11 [id number] 11/19/21 15:14 Document 11/26/21 15:02 [id number] 11/26/21 15:07 Document 12/03/21 15:26 [id number] 12/03/21 15:27 11/12/21 11/19/21 11/26/21 15:07 15:11 15:02 Wound Center Nurse 2 #9 R Plantar -Time 15:11 15:12 15:04 -Correct Patient Yes Yes Yes -Correct Side, Site, Position Yes Yes Yes -Correct Procedure Yes Yes Yes -Procedure Performed Yes Yes Yes -Type of Procedure Debridement Debridement Debridement -Clinical Debridement Subcutaneous Subcutaneous Subcutaneous -Tissue Removed Subcutaneous Subcutaneous Subcutaneous -Post Debridement (cm) - Length 0.8 0.9 0.5 -Post Debridement (cm) - Width 1.6 1.5 0.8 -Post Debridement (cm) - Depth 5.2 4.3 3.0 -Total Square (Post) (cm) 1.28 1.35 0.40 -Area of Debridement (cm) - Length 0.8 0.9 0.5 -Area of Debridement (cm) - Width 1.6 1.5 0.8 -Total Square (Area) (cm) 1.28 1.35 0.40 -Tunneling No No -Undermining/Tunneling No No No -Circular Undermining No No No -Wound/Ulcer Outcome Not Healed Not Healed Not Healed -Ulcer Cleansing Rinsed/ Rinsed/ Irrigated with Irrigated with Saline Saline -Foul Odor after Cleansing No No No -Bioengineered Tissue No No No -Bleeding Controlled with Pressure Pressure Pressure -Treatment Response Procedure Procedure Procedure Tolerated Well Tolerated Well Tolerated Well -Offloading Yes No Yes -Type of Offloading Knee Walker Knee Walker -Debridement - Subq, 1st 20sq cm Yes Yes Yes Pain Scale: 0-10 Numeric Is Patient Pain Free? Yes Yes Yes 12/03/21 15:26 Wound Center Nurse 2 #9 R Plantar -Time 15:26 -Correct Patient Yes -Correct Side, Site, Position Yes -Correct Procedure Yes -Procedure Performed Yes -Type of Procedure Debridement -Clinical Debridement Subcutaneous -Tissue Removed Subcutaneous -Post Debridement (cm) - Length 1.6 -Post Debridement (cm) - Width 1.6 -Post Debridement (cm) - Depth 2.5 -Total Square (Post) (cm) 2.56 -Area of Debridement (cm) - Length 1.6 -Area of Debridement (cm) - Width 1.6 -Total Square (Area) (cm) 2.56 -Tunneling No -Undermining/Tunneling No -Circular Undermining No -Wound/Ulcer Outcome Not Healed -Ulcer Cleansing Rinsed/ Irrigated with Saline -Foul Odor after Cleansing No -Bioengineered Tissue No -Bleeding Controlled with Pressure -Treatment Response Procedure Tolerated Well -Offloading Yes -Type of Offloading Knee Walker -Debridement - Subq, 1st 20sq cm Yes Pain Scale: 0-10 Numeric Is Patient Pain Free? Yes - Nurse 3 - General Ulcer D/C NN Start: 11/12/21 14:12 Freq: Status: Active Protocol: Activity Type Activity Date Activity User E-Sign Co-Sign Detail Recorded Client Recorded Date Recorded By Document 11/12/21 15:14 OK [id number] 11/12/21 15:16 OK Document 11/19/21 15:32 OK [id number] 11/19/21 15:33 AK Document 11/26/21 15:17 OK [id number] 11/26/21 15:18 AK Document 12/03/21 15:35 OK [id number] 12/03/21 15:36 AK 11/12/21 11/19/21 11/26/21 15:14 15:32 15:17 Wound Care Nurse 3 #9 R Plantar -Ulcer Cleansing Rinsed/ Rinsed/ Rinsed/ Irrigated with Irrigated with Irrigated with Saline Saline Saline -Foul Odor after Cleansing No No No -Negative Pressure Wound Therapy N/A N/A N/A -Primary Dressing Applied Aquacel AG 4x4, Aquacel AG 2x2 Aquacel AG 2x2 Optilok 6.5x10 -Other Dressing ABD ABD -Primary Dressing Covered/Secured with Dry Gauze, Secured with Tape -Other Covering 2 ABD pads -Aquacel AG 4x4 1 -Aquacel AG 2x2 1 1 -Optilok 6.5x10 1 Right -Lotion applied to leg before No No compression wrap -Multi-Layered Wrap Application Multi-Layer Comp - Right ($ ) -Tubular Bandage Single Layer -Size of Tubigrip Used Size F -Size F ($) 1 Pain Scale: 0-10 Numeric Is Patient Pain Free? Yes Yes Yes WC - Visit Discharge Discharge Condition Stable Stable Stable Ambulatory Status Ambulatory, Walker Walker Walker Transportation Private Auto Private Auto Private Auto Medication Reconcilliation completed & Yes Yes Yes provided to patient/care provider Clinical Summary of Care Provided Yes Yes Yes 12/03/21 15:35 Wound Care Nurse 3 #9 R Plantar -Ulcer Cleansing Rinsed/ Irrigated with Saline -Foul Odor after Cleansing -Negative Pressure Wound Therapy -Primary Dressing Applied Aquacel AG 4x4 -Other Dressing ABD -Primary Dressing Covered/Secured with Dry Gauze -Other Covering -Aquacel AG 4x4 1 -Aquacel AG 2x2 -Optilok 6.5x10 Right -Lotion applied to leg before compression wrap -Multi-Layered Wrap Application Multi-Layer Comp - Right ($ ) -Tubular Bandage -Size of Tubigrip Used -Size F ($) Pain Scale: 0-10 Numeric Is Patient Pain Free? Yes WC - Visit Discharge Discharge Condition Stable Ambulatory Status Walker Transportation Private [facility] Medication Reconcilliation completed & Yes provided to patient/care provider Clinical Summary of Care Provided Yes Assessment/Plan Assessment/Plan (1) Non-pressure chronic ulcer of other part of right foot with fat layer exposed: CODE(S): L97.512 - Non-pressure chronic ulcer of other part of right foot with fat layer exposed (2) Type 2 diabetes mellitus with diabetic polyneuropathy: CODE(S): E11.42 - Type 2 diabetes mellitus with diabetic polyneuropathy QUALIFIERS: Diabetes mellitus medical terminologist insulin use: unspecified chcf insulin use status Qualified Code(s): E11.42 - Type 2 diabetes mellitus with diabetic polyneuropathy (3) Osteomyelitis: CODE(S): M86.9 - Osteomyelitis, unspecified QUALIFIERS: Laterality: right Osteomyelitis location: foot Osteomyelitis type: other acute Qualified Code(s): M86.171 - Other acute osteomyelitis, right ankle and foot (4) Tobacco abuse: CODE(S): Z72.0 - Tobacco use (5) Venous insufficiency: CODE(S): I87.2 - Venous insufficiency (chronic) (peripheral) (6) Bilateral lower extremity edema: CODE(S): R60.0 - Localized edema (7) Charcot's joint, right ankle and foot: CODE(S): M14.671 - Charcot's joint, right ankle and foot PLAN: Patient seen and examined. His status has stabilized. Debridement was performed as noted in the clinical panel. Dressings: Aquacel Ag rope and secondary gauze dressing. Defers total contact cast due to concern of adequate transportation to remove this on time. Infection: He does have a history of recurrent ulcers with infections and even osteomyelitis. He was previously seen by infectious disease. There are no local or systemic signs of illness today however his worsening status is a concern. To monitor for development of these signs and to call immediately if these are noted. Diagnostic data: I recommend updating his labs including CBC, CMP, ESR, C- reactive protein. Also recommend updating a foot x-ray. He obtained three foot xrays on 10/06/21 which was stable without acute findings. No soft tissue emphysema, foreign body, fractures noted. there is charcot midfoot with dislocations and coalesced fragmentation. Labs from 10/06/21 with wbc 8.4, esr 66, crp, 31.60, est gfr 97. Offloading: Patient to remain nonweightbearing to the right lower extremity. Use wheelchair or knee walker / roller. Patient is noted to also have gotten an electric scooter in order to offload his foot. He is at risk for further amputation of foot or leg. He has a [place] walker ready at [employer] once healed. He relates this is no longer known at this time so I gave him a new prescription previously. Edema: To elevate limb at rest, reduce salt in diet, and perform muscular routine contraction of the lower extremity. I also recommend 3M2L dressing application. I would like to see him in a graduated edema management compression garment such as a [place] wrap. He has an open wound to lower extremity and is at risk for limb loss continued infection and surgical intervention. I recommend Glen for nutritional supplementation to optimize healing. All questions answered. To follow-up 1 week. Note: [email or web address] speech recognition pressurised container filler software was used to create portions of this document. Sound-alike and misspelled words, as well as other pressurised container filler errors may be contained in the documentation.
== END 2021-12-09 23:59 | disposition home or self-care (01) ==
LOC: WC 15:00
PROVIDERS: PCP Internal Medicine; Referring Provider Podiatrist Foot & Ankle Surgery; Visit Provider Podiatrist
DX: L97.512 Non-pressure chronic ulcer of other part of right foot with fat layer exposed (principal); E11.621 Type 2 diabetes mellitus with foot ulcer; M86.171 Other acute osteomyelitis, right ankle and foot; E11.59 Type 2 diabetes mellitus with other circulatory complications; E11.610 Type 2 diabetes mellitus with diabetic neuropathic arthropathy; E11.42 Type 2 diabetes mellitus with diabetic polyneuropathy; Z79.4 Long term (current) use of insulin; I87.2 Venous insufficiency (chronic) (peripheral); Z72.0 Tobacco use; R60.0 Localized edema; M14.671 Charcot's joint, right ankle and foot
CPT/HCPCS: 11042; 29581

== ENCOUNTER 2021-12-31 15:00 | Outpatient (RCR) | payer MEDICAID, SELFPAY ==
[2021-12-10 00:47] VITALS: BP 191/88; PULSE 107; RESP 20; TEMP 36.4; BMI 47.7
[2021-12-10 09:45] VITALS: BP 162/90; PULSE 89; RESP 22; TEMP 36.3; BMI 47.7
--- NOTE | 2021-12-10 10:37 | PCM.WC.PN ---
History of Present Illness Date of Service: 12/10/21 Chief Complaint: right ulcer to the bottom of the foot History of Wound: Patient is a 51-year-old male who presents to the wound care center for follow-up complicated right foot ulcers with history of Charcot and osteomyelitis history. He denies redness or odor, fever, chills, nausea or vomiting today. The onset of this recent plantar foot ulcer was July 25, 2021. He denies odor or redness. He reports continued drainage. He has been consistent with offloading with a knee roller. He denies redness or streaking to the leg. He denies odors. He also has lower extremity edema. His knee roller cracked and broke suddenly and he had to walk back. He is in the process of trying to get the driver education instructor to replace this. Progress of Wound: Worse status with increased depth Objective Data Objective Data Vital Signs: Vital Signs Temp Pulse Resp BP 97.4 F L 89 22 H 162/90 H 12/10/21 09:45 12/10/21 09:45 12/10/21 09:45 12/10/21 09:45 Body Mass Index (BMI) 47.7 Physical Exam Narrative Const alert and oriented x3 General Appearance: cooperative HEENT normocephalic Extremity Extremity Narrative: No calf tenderness, no calor, negative Tammie and Andrade sign Diminished pulses Compartments remain soft to palpate right lower extremity General Extremity: edema especially to right lower extremity. No tenderness to palpation of joints or extremities; Negative for cyanosis. No gross laxity crepitus or pain with attempted passive manipulation of the midfoot at his prior Charcot site. Skin Skin Narrative: Serosanguineous moderate to mild drainage noted from plantar foot. There is no malodor noted today. deep tissue probing noted and increased to 5 cm. This is granulation tissue noted upon debridement with continued depth of the deep tunnel to the midfoot and not directly to bone. No maceration. No bogginess or fluctuance on palpation. increased hematogenous / serosanguineous drainage noted General Skin Exam: Negative for erythema MSK Muscle wasting noted Charcot foot with rocker-bottom deformity and fourth and fifth ray resection right. Partial second toe amputation. No new laxity of the midfoot noted Neuro Neuro Narrative: lack of normal epicritic sensation via light touch is consistent with neuropathy status Psych cooperative and affect normal Debridement Note Debridement Note Wound debrided: right foot Wound Grade/Stage: 2 Type of Debridement: Excisional debridement Anesthesia Used: 4% Lidocaine Solution Depth: in the subcutaneous layer Percentage of wound debrided: 100 Instrument Used: #15 blade Tissue Removed: fibrous, devitalized subcutaneous, biofilm, slough Severity: Fat Layer Exposed Amount of bleeding with debridement: Mild Bleeding Controlled with: Pressure Patient tolerated procedure: Patient tolerated procedure well Post-Debridement Measurements and Additional Note: Post-Debridement Measurements/Treatment - Nurse 1 - General Ulcer Assessment Start: 12/10/21 09:45 Freq: Status: Active Protocol: NIGEL Activity Type Activity Date Activity User E-Sign Co-Sign Detail Recorded Client Recorded Date Recorded By Document 12/10/21 09:45 DL [id number] 12/10/21 09:51 DL Edit Result 12/10/21 09:45 DL (1) [id number] 12/10/21 09:53 DL (1) Blood Pressure (90/60-120/80) 187/106 H => 162/90 H Blood Pressure Mean (mm Hg) 133 => 114 12/10/21 09:45 - Today's Visit Information Type of service Follow-up Visit (Physician/DIGITAL CARTOGRAPHER ) Arrival Mode Ambulatory, Walker Transfer Assistance None Patient Identification Verified (Name & Yes ) Patient Requires Transmission-Based No Precautions Finger Stick Blood Sugar(mg/dl) (if 140 indicated): Blood Sugar Stated by Patient Height and Weight Body Mass Index (BMI) 47.7 BMI Classification Obese Vital Signs Temperature (97.8 F-99.1 F) 97.4 F L Temperature Source Temporal Pulse Rate (60-100) 89 Pulse Location Monitor Respiratory Rate (12-18) 22 H Respiratory rate source Observation Blood Pressure (90/60-120/80) 162/90 H Blood Pressure Mean (mm Hg) 114 Source Monitor History Since Last Visit- (Skip if this is Patient's initial visit) Have you changed medications since your No last visit? Any new allergies or adverse reactions No Had a fall/change in ADL's that may No increase risk of falls Signs or symptoms of abuse and/or No neglect since last visit Have you been in the hospital since your No last visit? Has dressing in place as prescribed Yes Has compression in place as prescribed No Has offloadiing in place as prescribed Yes Experienced any changes in pain level or No management Right Footwear No Footwear Pain Scale: 0-10 Numeric Is Patient Pain Free? Yes - Nurse 1 - General Ulcer Measurement Start: 12/10/21 09:45 Freq: Status: Active Protocol: Activity Type Activity Date Activity User E-Sign Co-Sign Detail Recorded Client Recorded Date Recorded By Document 12/10/21 09:45 DL [id number] 12/10/21 09:51 DL 12/10/21 09:45 Wound Center Nurse 1 #9 R Plantar -Current Size (cm) - Length 0.3 -Current Size (cm) - Width 0.6 -Current Size (cm) - Depth 2.8 -Total Square Cm 0.18 -Photo Taken Yes -Exudate Amt Medium -Exudate Type Yellow/Green -Wound Margin Distinct, Outline Attached -Granulation Amt Small (1-33%) -Granulation Quality [place] -Necrosis Amt Small (1-33%) -Necrotic Tissue Type Adherent Slough -Structure Exposed N/A -Texture (Michelle-wound Skin Appearance) Localized Edema ,Scarring -Moisture (Michelle-wound Skin Appearance) Maceration -Color (Michelle-wound Skin Appearance) Hemosiderin Staining -Temperature (Michelle-wound Skin No Abnormality Appearance) (Pt Warm) -Tenderness on Palpation (Michelle-wound No Skin Appearance) -Ulcer Cleansing Soap and Water -Foul Odor after Cleansing No -Anesthetic Used 5% Lidocaine Gel Right Calf (cm) 49.3 Right Ankle (cm) 31.2 - Nurse 2 - General Ulcer CM Notes Start: 12/10/21 09:45 Freq: Status: Active Protocol: Activity Type Activity Date Activity User E-Sign Co-Sign Detail Recorded Client Recorded Date Recorded By Document 12/10/21 10:11 [id number] 12/10/21 10:15 JERSON 12/10/21 10:11 Wound Center Nurse 2 #9 R Plantar -Time 10:11 -Correct Patient Yes -Correct Side, Site, Position Yes -Correct Procedure Yes -Procedure Performed Yes -Type of Procedure Debridement -Clinical Debridement Subcutaneous -Tissue Removed Subcutaneous -Post Debridement (cm) - Length 0.5 -Post Debridement (cm) - Width 0.6 -Post Debridement (cm) - Depth 5.0 -Total Square (Post) (cm) 0.30 -Area of Debridement (cm) - Length 0.5 -Area of Debridement (cm) - Width 0.6 -Total Square (Area) (cm) 0.30 -Tunneling No -Undermining/Tunneling No -Circular Undermining No -Wound/Ulcer Outcome Not Healed -Ulcer Cleansing Rinsed/ Irrigated with Saline -Foul Odor after Cleansing No -Bioengineered Tissue No -Bleeding Controlled with Pressure -Treatment Response Procedure Tolerated Well -Offloading Yes -Type of Offloading Knee Walker -Debridement - Subq, 1st 20sq cm Yes Pain Scale: 0-10 Numeric Is Patient Pain Free? Yes - Nurse 3 - General Ulcer D/C NN Start: 12/10/21 09:45 Freq: Status: Active Protocol: Activity Type Activity Date Activity User E-Sign Co-Sign Detail Recorded Client Recorded Date Recorded By Document 12/10/21 10:20 [id number] 12/10/21 10:22 12/10/21 10:20 Wound Care Nurse 3 #9 R Plantar -Primary Dressing Applied Nugauze, Plain Iodoform -Other Dressing nugauze soaked in betadine -Primary Dressing Covered/Secured with Dry Gauze,Dry Gauze & Roll Gauze,Secured with Tape -Other Covering abd -Nugauze, Plain Iodoform 1/4 1 Right -Multi-Layered Wrap Application Multi-Layer Comp - Right ($ ) Treatment Response Procedure Tolerated Well Pain Scale: 0-10 Numeric Is Patient Pain Free? Yes - Visit Discharge Discharge Condition Stable Ambulatory Status Ambulatory Transportation Private Auto Medication Reconcilliation completed & No provided to patient/care provider Clinical Summary of Care Provided Yes Notes: kneewalker Assessment/Plan Assessment/Plan (1) Non-pressure chronic ulcer of other part of right foot with fat layer exposed: CODE(S): L97.512 - Non-pressure chronic ulcer of other part of right foot with fat layer exposed (2) Type 2 diabetes mellitus with diabetic polyneuropathy: CODE(S): E11.42 - Type 2 diabetes mellitus with diabetic polyneuropathy QUALIFIERS: Diabetes mellitus security assistant insulin use: unspecified security assistant insulin use status Qualified Code(s): E11.42 - Type 2 diabetes mellitus with diabetic polyneuropathy (3) Osteomyelitis: CODE(S): M86.9 - Osteomyelitis, unspecified QUALIFIERS: Osteomyelitis type: other acute Osteomyelitis location: foot Laterality: right Qualified Code(s): M86.171 - Other acute osteomyelitis, right ankle and foot (4) Tobacco abuse: CODE(S): Z72.0 - Tobacco use (5) Venous insufficiency: CODE(S): I87.2 - Venous insufficiency (chronic) (peripheral) (6) Bilateral lower extremity edema: CODE(S): R60.0 - Localized edema (7) Charcot's joint, right ankle and foot: CODE(S): M14.671 - Charcot's joint, right ankle and foot (8) Non-pressure chronic ulcer of other part of right foot with necrosis of muscle: CODE(S): L97.513 - Non-pressure chronic ulcer of other part of right foot with necrosis of muscle PLAN: Patient seen and examined. His status has worsened with increased depth and now exposed joint. Debridement was performed as noted in the clinical panel. Dressings: New gauze with Betadine or Dakin solution. Defers total contact cast due to concern of adequate transportation to remove this on time. Infection: He does have a history of recurrent ulcers with infections and even osteomyelitis. He was previously seen by infectious disease. There are no local or systemic signs of illness today however his worsening status is a concern. To monitor for development of these signs and to call immediately if these are noted. Diagnostic data: I recommend updating his labs including CBC, CMP, ESR, C-reactive protein. Also recommend updating a foot x-ray. He obtained three foot xrays on 10/06/21 which was stable without acute findings. No soft tissue emphysema, foreign body, fractures noted. there is charcot midfoot with dislocations and coalesced fragmentation. Labs from 10/06/21 with wbc 8.4, esr 66, crp, 31.60, est gfr 97. Offloading: Patient to remain nonweightbearing to the right lower extremity. Use wheelchair or knee walker / roller. Patient is noted to also have gotten an electric scooter in order to offload his foot. He is at risk for further amputation of foot or leg. He has a [place] walker ready at [facility] once healed. He relates this is no longer known at this time so I gave him a new prescription previously. Edema: To elevate limb at rest, reduce salt in diet, and perform muscular routine contraction of the lower extremity. I also recommend 3M2L dressing application. I would like to see him in a graduated edema management compression garment such as a [place] wrap. He has an open wound to lower extremity and is at risk for limb loss continued infection and surgical intervention. I recommend [place] for nutritional supplementation to optimize healing. All questions answered. To follow-up 1 week. Note: [employer] speech recognition director private music therapy agency software was used to create portions of this document. Sound-alike and misspelled words, as well as other director private music therapy agency errors may be contained in the documentation. 13 minutes was spent on this encounter. This included face to face and non face to face care including preparing for the visit, reviewing the history, performing the exam, counseling and providing education to the patient, family, or caregiver, ordering medications/test/ procedures if indicated as documented, communicating with other healthcare providers, documenting information in the medical record, interpreting / sharing this information when indicated as documented, and care coordination.
[2021-12-17 13:45] VITALS: BP 173/80; PULSE 92; RESP 20; TEMP 36.4; BMI 47.7
--- NOTE | 2021-12-17 14:52 | PCM.WC.PN ---
History of Present Illness Date of Service: 12/17/21 Chief Complaint: right ulcer to the bottom of the foot History of Wound: Patient is a 51-year-old male who presents to the wound care center for follow-up complicated right foot ulcers with history of Charcot and osteomyelitis history. He denies redness or odor, fever, chills, nausea or vomiting today. The onset of this recent plantar foot ulcer was July 25, 2021. He denies odor or redness. He reports continued drainage. He has been consistent with offloading with a knee roller. He denies redness or streaking to the leg. He denies odors. He also has lower extremity edema. His knee roller cracked and he did obtain a new one. He asks for help with dry skin; he has been applying lotion. Progress of Wound: improving Objective Data Objective Data Vital Signs: Vital Signs Temp Pulse Resp BP 97.5 F L 92 20 H 173/80 H 12/17/21 13:45 12/17/21 13:45 12/17/21 13:45 12/17/21 13:45 Body Mass Index (BMI) 47.7 Physical Exam Narrative Const alert and oriented x3 General Appearance: cooperative HEENT normocephalic Extremity Extremity Narrative: No calf tenderness, no calor, negative Tammie and Andrade sign Diminished pulses Compartments remain soft to palpate right lower extremity General Extremity: edema especially to right lower extremity. No tenderness to palpation of joints or extremities; Negative for cyanosis. No gross laxity crepitus or pain with attempted passive manipulation of the midfoot at his prior Charcot site. Skin Skin Narrative: Serosanguineous moderate to mild drainage noted from plantar foot. There is no malodor noted today. deep tissue probing noted but reduced. This is granulation tissue noted upon debridement with continued depth of the deep tunnel to the midfoot and not directly to bone. No maceration. No bogginess or fluctuance on palpation. increased hematogenous / serosanguineous drainage noted General Skin Exam: Negative for erythema MSK Muscle wasting noted Charcot foot with rocker-bottom deformity and fourth and fifth ray resection right. Partial second toe amputation. No new laxity of the midfoot noted Neuro Neuro Narrative: lack of normal epicritic sensation via light touch is consistent with neuropathy status Psych cooperative and affect normal Debridement Note Debridement Note Wound debrided: right plantar foot Wound Grade/Stage: 2 Type of Debridement: Excisional debridement Anesthesia Used: 4% Lidocaine Solution Depth: in the subcutaneous layer Percentage of wound debrided: 100 Instrument Used: #15 blade Tissue Removed: fibrous, devitalized subcutaneous, biofilm, slough Severity: Fat Layer Exposed Amount of bleeding with debridement: Mild Bleeding Controlled with: Pressure Patient tolerated procedure: Patient tolerated procedure well Post-Debridement Measurements and Additional Note: Post-Debridement Measurements/Treatment - Nurse 1 - General Ulcer Assessment Start: 12/10/21 09:45 Freq: Status: Active Protocol: EyesBotAMINAH Activity Type Activity Date Activity User E-Sign Co-Sign Detail Recorded Client Recorded Date Recorded By Document 12/10/21 09:45 DL [id number] 12/10/21 09:51 DL Edit Result 12/10/21 09:45 DL (1) [id number] 12/10/21 09:53 DL Document 12/17/21 13:45 DL [id number] 12/17/21 13:55 DL (1) Blood Pressure (90/60-120/80) 187/106 H => 162/90 H Blood Pressure Mean (mm Hg) 133 => 114 12/10/21 12/17/21 09:45 13:45 - Today's Visit Information Type of service Follow-up Visit Follow-up Visit (Physician/BUSINESS PERFORMANCE SPECIALIST (Physician/BUSINESS PERFORMANCE SPECIALIST ) ) Arrival Mode Ambulatory, Ambulatory, Walker Walker Transfer Assistance None None Patient Identification Verified (Name & Yes Yes ) Patient Requires Transmission-Based No No Precautions Finger Stick Blood Sugar(mg/dl) (if 140 96 indicated): Blood Sugar Stated by Stated by Patient Patient Height and Weight Body Mass Index (BMI) 47.7 47.7 BMI Classification Obese Obese Vital Signs Temperature (97.8 F-99.1 F) 97.4 F L 97.5 F L Temperature Source Temporal Temporal Pulse Rate (60-100) 89 92 Pulse Location Monitor Monitor Respiratory Rate (12-18) 22 H 20 H Respiratory rate source Observation Observation Blood Pressure (90/60-120/80) 162/90 H 173/80 H Blood Pressure Mean (mm Hg) 114 111 Source Monitor Monitor History Since Last Visit- (Skip if this is Patient's initial visit) Have you changed medications since your No No last visit? Any new allergies or adverse reactions No No Had a fall/change in ADL's that may No No increase risk of falls Signs or symptoms of abuse and/or No No neglect since last visit Have you been in the hospital since your No No last visit? Has dressing in place as prescribed Yes Yes Has compression in place as prescribed No Yes Has offloadiing in place as prescribed Yes Yes Experienced any changes in pain level or No No management Right Footwear No Footwear No Footwear Pain Scale: 0-10 Numeric Is Patient Pain Free? Yes Yes WC - Nurse 1 - General Ulcer Measurement Start: 12/10/21 09:45 Freq: Status: Active Protocol: Activity Type Activity Date Activity User E-Sign Co-Sign Detail Recorded Client Recorded Date Recorded By Document 12/10/21 09:45 DL [id number] 12/10/21 09:51 DL Document 12/17/21 13:45 DL [id number] 12/17/21 13:55 DL 12/10/21 12/17/21 09:45 13:45 Wound Center Nurse 1 #9 R Plantar -Current Size (cm) - Length 0.3 0.4 -Current Size (cm) - Width 0.6 0.7 -Current Size (cm) - Depth 2.8 3 -Total Square Cm 0.18 0.28 -Photo Taken Yes No -Exudate Amt Medium Medium -Exudate Type Yellow/Green Serosanguineous -Wound Margin Distinct, Thickened Outline Attached -Granulation Amt Small (1-33%) Large (67-100%) -Granulation Quality [place] Red -Necrosis Amt Small (1-33%) None Present (0 %) -Necrotic Tissue Type Adherent Slough -Structure Exposed N/A N/A -Texture (Michelle-wound Skin Appearance) Localized Edema Scarring ,Scarring -Moisture (Michelle-wound Skin Appearance) Maceration Maceration -Color (Michelle-wound Skin Appearance) Hemosiderin Hemosiderin Staining Staining -Temperature (Michelle-wound Skin No Abnormality No Abnormality Appearance) (Pt Warm) (Pt Warm) -Tenderness on Palpation (Michelle-wound No No Skin Appearance) -Ulcer Cleansing Soap and Water Soap and Water -Foul Odor after Cleansing No No -Anesthetic Used 5% Lidocaine 5% Lidocaine Gel Gel Right Calf (cm) 49.3 46.5 Right Ankle (cm) 31.2 31.2 - Nurse 2 - General Ulcer CM Notes Start: 12/10/21 09:45 Freq: Status: Active Protocol: Activity Type Activity Date Activity User E-Sign Co-Sign Detail Recorded Client Recorded Date Recorded By Document 12/10/21 10:11 [id number] 12/10/21 10:15 Document 12/17/21 14:13 [id number] 12/17/21 14:16 12/10/21 12/17/21 10:11 14:13 Wound Center Nurse 2 #9 R Plantar -Time 10:11 14:14 -Correct Patient Yes Yes -Correct Side, Site, Position Yes Yes -Correct Procedure Yes Yes -Procedure Performed Yes Yes -Type of Procedure Debridement Debridement -Clinical Debridement Subcutaneous Subcutaneous -Tissue Removed Subcutaneous Subcutaneous -Post Debridement (cm) - Length 0.5 0.4 -Post Debridement (cm) - Width 0.6 0.8 -Post Debridement (cm) - Depth 5.0 3.7 -Total Square (Post) (cm) 0.30 0.32 -Area of Debridement (cm) - Length 0.5 0.4 -Area of Debridement (cm) - Width 0.6 0.8 -Total Square (Area) (cm) 0.30 0.32 -Tunneling No No -Undermining/Tunneling No No -Circular Undermining No No -Wound/Ulcer Outcome Not Healed Not Healed -Ulcer Cleansing Rinsed/ Rinsed/ Irrigated with Irrigated with Saline Saline -Foul Odor after Cleansing No No -Bioengineered Tissue No No -Bleeding Controlled with Pressure Pressure -Treatment Response Procedure Procedure Tolerated Well Tolerated Well -Offloading Yes Yes -Type of Offloading Knee Walker Knee Walker -Debridement - Subq, 1st 20sq cm Yes Yes Pain Scale: 0-10 Numeric Is Patient Pain Free? Yes Yes - Nurse 3 - General Ulcer D/C NN Start: 12/10/21 09:45 Freq: Status: Active Protocol: Activity Type Activity Date Activity User E-Sign Co-Sign Detail Recorded Client Recorded Date Recorded By Document 12/10/21 10:20 RB [id number] 12/10/21 10:22 RB 12/10/21 10:20 Wound Care Nurse 3 #9 R Plantar -Primary Dressing Applied Nugauze, Plain Iodoform -Other Dressing nugauze soaked in betadine -Primary Dressing Covered/Secured with Dry Gauze,Dry Gauze & Roll Gauze,Secured with Tape -Other Covering abd -Nugauze, Plain Iodoform 1/ 1 Right -Multi-Layered Wrap Application Multi-Layer Comp - Right ($ ) Treatment Response Procedure Tolerated Well Pain Scale: 0-10 Numeric Is Patient Pain Free? Yes WC - Visit Discharge Discharge Condition Stable Ambulatory Status Ambulatory Transportation Private Auto Medication Reconcilliation completed & No provided to patient/care provider Clinical Summary of Care Provided Yes Notes: kneemerced Assessment/Plan Assessment/Plan (1) Non-pressure chronic ulcer of other part of right foot with fat layer exposed: CODE(S): L97.512 - Non-pressure chronic ulcer of other part of right foot with fat layer exposed (2) Type 2 diabetes mellitus with diabetic polyneuropathy: CODE(S): E11.42 - Type 2 diabetes mellitus with diabetic polyneuropathy QUALIFIERS: Diabetes mellitus alf insulin use: unspecified alf insulin use status Qualified Code(s): E11.42 - Type 2 diabetes mellitus with diabetic polyneuropathy (3) Osteomyelitis: CODE(S): M86.9 - Osteomyelitis, unspecified QUALIFIERS: Laterality: right Osteomyelitis location: foot Osteomyelitis type: other acute Qualified Code(s): M86.171 - Other acute osteomyelitis, right ankle and foot (4) Tobacco abuse: CODE(S): Z72.0 - Tobacco use (5) Venous insufficiency: CODE(S): I87.2 - Venous insufficiency (chronic) (peripheral) (6) Bilateral lower extremity edema: CODE(S): R60.0 - Localized edema (7) Charcot's joint, right ankle and foot: CODE(S): M14.671 - Charcot's joint, right ankle and foot (8) Non-pressure chronic ulcer of other part of right foot with necrosis of muscle: CODE(S): L97.513 - Non-pressure chronic ulcer of other part of right foot with necrosis of muscle PLAN: Patient seen and examined. Debridement was performed as noted in the clinical panel. Dressings: New gauze with Betadine or Dakin solution. Defers total contact cast due to concern of adequate transportation to remove this on time. Infection: He does have a history of recurrent ulcers with infections and even osteomyelitis. He was previously seen by infectious disease. There are no local or systemic signs of illness today however his worsening status is a concern. To monitor for development of these signs and to call immediately if these are noted. Diagnostic data: I recommend updating his labs including CBC, CMP, ESR, C-reactive protein. Also recommend updating a foot x-ray. He obtained three foot xrays on 10/06/21 which was stable without acute findings. No soft tissue emphysema, foreign body, fractures noted. there is charcot midfoot with dislocations and coalesced fragmentation. Labs from 10/06/21 with wbc 8.4, esr 66, crp, 31.60, est gfr 97. Offloading: Patient to remain nonweightbearing to the right lower extremity. Use wheelchair or knee walker / roller. Patient is noted to also have gotten an electric scooter in order to offload his foot. He is at risk for further amputation of foot or leg. He has a LA JOLLA walker ready at [facility] [employer] once healed. He relates this is no longer known at this time so I gave him a new prescription previously. Edema: To elevate limb at rest, reduce salt in diet, and perform muscular routine contraction of the lower extremity. I also recommend 3M2L dressing application. I would like to see him in a graduated edema management compression garment such as a [place] wrap. He has an open wound to lower extremity and is at risk for limb loss continued infection and surgical intervention. Dry skin was manually peeled/debrided today. To continue lotion application. I recommend [place] for nutritional supplementation to optimize healing. All questions answered. To follow-up 1 week. Note: [employer] speech recognition stationary engineer supervisor software was used to create portions of this document. Sound-alike and misspelled words, as well as other stationary engineer supervisor errors may be contained in the documentation.
[2021-12-31 15:03] VITALS: BP 170/88; PULSE 989; RESP 22; TEMP 36.7; BMI 47.7
--- NOTE | 2021-12-31 15:33 | PN.PCM_ITS ---
History of Present Illness Date of Service: 12/31/21 Chief Complaint: right ulcer to the bottom of the foot History of Wound: Patient is a 51-year-old male who presents to the wound care center for follow-up complicated right foot ulcers with history of Charcot and osteomyelitis history. He denies redness or odor, fever, chills, nausea or vomiting today. The onset of this recent plantar foot ulcer was July 25, 2021. He denies odor or redness. He reports continued drainage. He has been consistent with offloading with a knee roller. He denies redness or streaking to the leg. He denies odors. He also has lower extremity edema. His knee roller cracked and he did obtain a new one. His skin has improved with lotion application. Progress of Wound: improving Objective Data Objective Data Vital Signs: Vital Signs Temp Pulse Resp BP 98.1 F 989 H 22 H 170/88 H 12/31/21 15:03 12/31/21 15:03 12/31/21 15:03 12/31/21 15:03 Body Mass Index (BMI) 47.7 Physical Exam Narrative Const alert and oriented x3 General Appearance: cooperative HEENT normocephalic Extremity Extremity Narrative: No calf tenderness, no calor, negative Tammie and Andrade sign Diminished pulses Compartments remain soft to palpate right lower extremity General Extremity: edema especially to right lower extremity. No tenderness to palpation of joints or extremities; Negative for cyanosis. No gross laxity crepitus or pain with attempted passive manipulation of the mi dfoot at his prior Charcot site. Skin Skin Narrative: Serosanguineous moderate to mild drainage noted from plantar foot. There is no malodor noted today. deep tissue probing noted but reduced. This is granulation tissue noted upon debridement with continued depth of the deep tunnel to the midfoot and not directly to bone. No maceration. No bogginess or fluctuance on palpation. increased hematogenous / serosanguineous drainage noted General Skin Exam: Negative for erythema MSK Muscle wasting noted Charcot foot with rocker-bottom deformity and fourth and fifth ray resection right. Partial second toe amputation. No new laxity of the midfoot noted Neuro Neuro Narrative: lack of normal epicritic sensation via light touch is consistent with neuropathy status Psych cooperative and affect normal Debridement Note Debridement Note Wound debrided: right plantar foot Wound Grade/Stage: 2 Type of Debridement: Excisional debridement Anesthesia Used: 4% Lidocaine Solution Depth: in the subcutaneous layer Percentage of wound debrided: 100 Instrument Used: #15 blade Tissue Removed: fibrous, devitalized subcutaneous, biofilm, slough Severity: Fat Layer Exposed Amount of bleeding with debridement: Mild Bleeding Controlled with: Pressure Patient tolerated procedure: Patient tolerated procedure well Post-Debridement Measurements and Additional Note: Post-Debridement Measurements/Treatment - Nurse 1 - General Ulcer Assessment Start: 12/10/21 09:45 Freq: Status: Active Protocol: [facility] Activity Type Activity Date Activity User E-sign Co-sign Detail Recorded Client Recorded Date Recorded By Document 12/10/21 09:45 DL [id number] 12/10/21 09:51 DL Edit Result 12/10/21 09:45 DL (1) [id number] 12/10/21 09:53 DL Document 12/17/21 13:45 DL [id number] 12/17/21 13:55 DL Document 12/31/21 15:03 DL [id number] 12/31/21 15:12 DL (1) Blood Pressure (90/60-120/80) 187/106 H => 162/90 H Blood Pressure Mean (mm Hg) 133 => 114 12/10/21 12/17/21 12/31/21 09:45 13:45 15:03 - Today's Visit Information Type of service Follow-up Visit Follow-up Visit Follow-up Visit (Physician/BARGE WORKER (Physician/BARGE WORKER (Physician/BARGE WORKER ) ) ) Arrival Mode Ambulatory, Ambulatory, Ambulatory, Walker Walker Walker Transfer Assistance None None None Patient Identification Verified (Name & Yes Yes ) Patient Requires Transmission-Based No No No Precautions Finger Stick Blood Sugar(mg/dl) (if 140 96 129 indicated): Blood Sugar Stated by Stated by Patient Patient Height and Weight Body Mass Index (BMI) 47.7 47.7 47.7 BMI Classification Obese Obese Obese Vital Signs Temperature (97.8 F-99.1 F) 97.4 F L 97.5 F L 98.1 F Temperature Source Temporal Temporal Temporal Pulse Rate (60-100) 89 92 989 H Pulse Location Monitor Monitor Respiratory Rate (12-18) 22 H 20 H 22 H Respiratory rate source Observation Observation Observation Blood Pressure (90/60-120/80) 162/90 H 173/80 H 170/88 H Blood Pressure Mean (mm Hg) 114 111 115 Source Monitor Monitor Monitor History Since Last Visit- (Skip if this is Patient's initial visit) Have you changed medications since your No No No last visit? Any new allergies or adverse reactions No No No Had a fall/change in ADL's that may No No No increase risk of falls Signs or symptoms of abuse and/or No No No neglect since last visit Have you been in the hospital since your No No No last visit? Has dressing in place as prescribed Yes Yes Yes Has compression in place as prescribed No Yes Yes Has offloadiing in place as prescribed Yes Yes Yes Experienced any changes in pain level or No No No management Right Footwear No Footwear No Footwear Pain Scale: 0-10 Numeric Is Patient Pain Free? Yes Yes Yes WC - Nurse 1 - General Ulcer Measurement Start: 12/10/21 09:45 Freq: Status: Active Protocol: Activity Type Activity Date Activity User E-sign Co-sign Detail Recorded Client Recorded Date Recorded By Document 12/10/21 09:45 DL [id number] 12/10/21 09:51 DL Document 12/17/21 13:45 DL [id number] 12/17/21 13:55 DL Document 12/31/21 15:03 DL [id number] 12/31/21 15:12 DL 12/10/21 12/17/21 12/31/21 09:45 13:45 15:03 Wound Center Nurse 1 #9 R Plantar -Current Size (cm) - Length 0.3 0.4 0.7 -Current Size (cm) - Width 0.6 0.7 0.3 -Current Size (cm) - Depth 2.8 3 3 -Total Square Cm 0.18 0.28 0.21 -Photo Taken Yes No No -Exudate Amt Medium Medium Medium -Exudate Type Yellow/Green Serosanguineous Serosanguineous -Wound Margin Distinct, Thickened Distinct, Outline Outline Attached Attached -Granulation Amt Small (1-33%) Large (67-100%) Large (67-100%) -Granulation Quality Waka Red Red -Necrosis Amt Small (1-33%) None Present (0 None Present (0 %) %) -Necrotic Tissue Type Adherent Slough -Structure Exposed N/A N/A N/A -Texture (Michelle-wound Skin Appearance) Localized Edema Scarring Scarring ,Scarring -Moisture (Michelle-wound Skin Appearance) Maceration Maceration Maceration -Color (Michelle-wound Skin Appearance) Hemosiderin Hemosiderin Hemosiderin Staining Staining Staining -Temperature (Michelle-wound Skin No Abnormality No Abnormality Appearance) (Pt Warm) (Pt Warm) -Tenderness on Palpation (Michelle-wound No No No Skin Appearance) -Ulcer Cleansing Soap and Water Soap and Water Soap and Water -Foul Odor after Cleansing No No No -Anesthetic Used 5% Lidocaine 5% Lidocaine 5% Lidocaine Gel Gel Gel Right Calf (cm) 49.3 46.5 Right Ankle (cm) 31.2 31.2 WC - Nurse 2 - General Ulcer CM Notes Start: 12/10/21 09:45 Freq: Status: Active Protocol: Activity Type Activity Date Activity User E-sign Co-sign Detail Recorded Client Recorded Date Recorded By Document 12/10/21 10:11 [id number] 12/10/21 10:15 Document 12/17/21 14:13 [id number] 12/17/21 14:16 Document 12/31/21 15:30 [id number] 12/31/21 15:31 12/10/21 12/17/21 12/31/21 10:11 14:13 15:30 Wound Center Nurse 2 #9 R Plantar -Time 10:11 14:14 15:30 -Correct Patient Yes Yes Yes -Correct Side, Site, Position Yes Yes Yes -Correct Procedure Yes Yes Yes -Procedure Performed Yes Yes Yes -Type of Procedure Debridement Debridement Incision & Drainage -Clinical Debridement Subcutaneous Subcutaneous Subcutaneous -Tissue Removed Subcutaneous Subcutaneous Subcutaneous -Post Debridement (cm) - Length 0.5 0.4 0.7 -Post Debridement (cm) - Width 0.6 0.8 0.4 -Post Debridement (cm) - Depth 5.0 3.7 3.0 -Total Square (Post) (cm) 0.30 0.32 0.28 -Area of Debridement (cm) - Length 0.5 0.4 0.7 -Area of Debridement (cm) - Width 0.6 0.8 0.4 -Total Square (Area) (cm) 0.30 0.32 0.28 -Tunneling No No No -Undermining/Tunneling No No No -Circular Undermining No No No -Wound/Ulcer Outcome Not Healed Not Healed Not Healed -Ulcer Cleansing Rinsed/ Rinsed/ Rinsed/ Irrigated with Irrigated with Irrigated with Saline Saline Saline -Foul Odor after Cleansing No No No -Bioengineered Tissue No No No -Bleeding Controlled with Pressure Pressure Pressure -Treatment Response Procedure Procedure Procedure Tolerated Well Tolerated Well Tolerated Well -Offloading Yes Yes Yes -Type of Offloading Knee Walker Knee Walker Knee Walker -Debridement - Subq, 1st 20sq cm Yes Yes Yes Pain Scale: 0-10 Numeric Is Patient Pain Free? Yes Yes Yes - Nurse 3 - General Ulcer D/C NN Start: 12/10/21 09:45 Freq: Status: Active Protocol: Activity Type Activity Date Activity User E-sign Co-sign Detail Recorded Client Recorded Date Recorded By Document 12/10/21 10:20 [id number] 12/10/21 10:22 RB Document 12/17/21 14:53 KR [id number] 12/17/21 14:54 KR 12/10/21 12/17/21 10:20 14:53 Wound Care Nurse 3 #9 R Plantar -Ulcer Cleansing Rinsed/ Irrigated with Saline -Primary Dressing Applied Nugauze, Plain Aquacel AG 2x2 Iodoform -Other Dressing nugauze soaked ABD pad in betadine -Primary Dressing Covered/Secured with Dry Gauze,Dry Dry Gauze, Gauze & Roll Secured with Gauze,Secured Tape with Tape -Other Covering abd -Aquacel AG 2x2 1 -Nugauze, Plain Iodoform 1/4 1 Right -Multi-Layered Wrap Application Multi-Layer Multi-Layer Comp - Right ($ Comp - Right ($ ) ) Treatment Response Procedure Tolerated Well Pain Scale: 0-10 Numeric Is Patient Pain Free? Yes Yes - Visit Discharge Discharge Condition Stable Stable Ambulatory Status Ambulatory Ambulatory, Walker Transportation Private Auto Private Auto Medication Reconcilliation completed & No provided to patient/care provider Clinical Summary of Care Provided Yes Notes: kneewalker Assessment/Plan Assessment/Plan (1) Non-pressure chronic ulcer of other part of right foot with fat layer exposed: CODE(S): L97.512 - Non-pressure chronic ulcer of other part of right foot with fat layer exposed (2) Type 2 diabetes mellitus with diabetic polyneuropathy: CODE(S): E11.42 - Type 2 diabetes mellitus with diabetic polyneuropathy QUALIFIERS: Diabetes mellitus usp insulin use: unspecified usp insulin use status Qualified Code(s): E11.42 - Type 2 diabetes mellitus with diabetic polyneuropathy (3) Osteomyelitis: CODE(S): M86.9 - Osteomyelitis, unspecified QUALIFIERS: Laterality: right Osteomyelitis location: foot Oste omyelitis type: other acute Qualified Code(s): M86.171 - Other acute osteomyelitis, right ankle and foot (4) Tobacco abuse: CODE(S): Z72.0 - Tobacco use (5) Venous insufficiency: CODE(S): I87.2 - Venous insufficiency (chronic) (peripheral) (6) Bilateral lower extremity edema: CODE(S): R60.0 - Localized edema (7) Charcot's joint, right ankle and foot: CODE(S): M14.671 - Charcot's joint, right ankle and foot (8) Non-pressure chronic ulcer of other part of right foot with necrosis of muscle: CODE(S): L97.513 - Non-pressure chronic ulcer of other part of right foot with necrosis of muscle PLAN: Plan Patient seen and examined. Debridement was performed as noted in the clinical panel. Dressings: New gauze with Betadine or Dakin solution. Defers total contact cast due to concern of adequate transportation to remove this on time. Infection: He does have a history of recurrent ulcers with infections and even osteomyelitis. He was previously seen by infectious disease. There are no local or systemic signs of illness today however his worsening status is a concern. To monitor for development of these signs and to call immediately if these are noted. Diagnostic data: I recommend updating his labs including CBC, CMP, ESR, C- reactive protein. Also recommend updating a foot x-ray. He obtained three foot xrays on 10/06/21 which was stable without acute findings. No soft tissue emphysema, foreign body, fractures noted. there is charcot midfoot with dislocations and coalesced fragmentation. Labs from 10/06/21 with wbc 8.4, esr 66, crp, 31.60, est gfr 97. Offloading: Patient to remain nonweightbearing to the right lower extremity. Use wheelchair or knee walker / roller. Patient is noted to also have gotten an electric scooter in order to offload his foot. He is at risk for further amputation of foot or leg. He has a [employer] walker ready at [facility] once healed. He relates this is no longer known at this time so I gave him a new prescription previously. Edema: To elevate limb at rest, reduce salt in diet, and perform muscular routine contraction of the lower extremity. I also recommend 3M2L dressing application. I would like to see him in a graduated edema management compression garment such as a Farrow wrap. He has an open wound to lower extremity and is at risk for limb loss continued infection and surgical intervention. Dry skin was manually peeled/debrided today. To continue lotion application. I recommend Glen for nutritional supplementation to optimize healing. All questions answered. To follow-up 1 week. Note: [employer] speech recognition healthcare manager software was used to create portions of this document. Sound-alike and misspelled words, as well as other healthcare manager errors may be contained in the documentation.
== END 2022-01-08 23:59 | disposition home or self-care (01) ==
LOC: WC 15:00
PROVIDERS: PCP Internal Medicine; Referring Provider Podiatrist Foot & Ankle Surgery; Visit Provider Podiatrist
DX: E11.621 Type 2 diabetes mellitus with foot ulcer (principal); L97.512 Non-pressure chronic ulcer of other part of right foot with fat layer exposed; L97.513 Non-pressure chronic ulcer of other part of right foot with necrosis of muscle; M86.171 Other acute osteomyelitis, right ankle and foot; E11.42 Type 2 diabetes mellitus with diabetic polyneuropathy; E11.59 Type 2 diabetes mellitus with other circulatory complications; E11.610 Type 2 diabetes mellitus with diabetic neuropathic arthropathy; Z79.4 Long term (current) use of insulin; R60.0 Localized edema; Z72.0 Tobacco use; I87.2 Venous insufficiency (chronic) (peripheral); R26.2 Difficulty in walking, not elsewhere classified; M14.671 Charcot's joint, right ankle and foot
CPT/HCPCS: 11042; 29581

== ENCOUNTER 2022-01-21 13:00 | Outpatient (RCR) | payer MEDICAID, SELFPAY ==
[2022-01-09 00:28] VITALS: BP 170/88; PULSE 989; RESP 22; TEMP 36.7; BMI 47.7
[2022-01-14 13:19] VITALS: BP 167/89; PULSE 99; RESP 18; BMI 47.7
--- NOTE | 2022-01-14 13:44 | PCM.WC.PN ---
History of Present Illness Date of Service: 01/14/22 Chief Complaint: right ulcer to the bottom of the foot History of Wound: Patient is a 51-year-old male who presents to the wound care center for follow-up complicated right foot ulcers with history of Charcot and osteomyelitis history. He denies redness or odor, fever, chills, nausea or vomiting today. The onset of this recent plantar foot ulcer was July 25, 2021. He denies odor or redness. He reports continued drainage. He has been consistent with offloading with a knee roller. He reports significant reduction in overall activity this past week. He denies redness or streaking to the leg. He denies odors. He also has lower extremity edema. He continues to wash and moisturize his limb each time he has a dressing change. Objective Data Objective Data Vital Signs: Vital Signs Temp Pulse Resp BP O2 Del Method 98.1 F 99 18 167/89 H Room Air 01/09/22 00:28 01/14/22 13:19 01/14/22 13:19 01/14/22 13:19 01/14/22 13:19 Oxygen Delivery Method Room Air Body Mass Index (BMI) 47.7 Physical Exam Narrative Const alert and oriented x3 General Appearance: cooperative HEENT normocephalic Extremity Extremity Narrative: No calf tenderness, no calor, negative Tammie and Andrade sign Diminished pulses Compartments remain soft to palpate right lower extremity General Extremity: edema especially to right lower extremity. No tenderness to palpation of joints or extremities; Negative for cyanosis. No gross laxity crepitus or pain with attempted passive manipulation of the midfoot at his prior Charcot site. Skin Skin Narrative: Serosanguineous mild drainage noted from plantar foot. There is no malodor noted today. Significant reduction in ulcer depth noted. This is granulation tissue noted upon debridement. No maceration. No bogginess or fluctuance on palpation. General Skin Exam: Negative for erythema MSK Muscle wasting noted Charcot foot with rocker-bottom deformity and fourth and fifth ray resection right. Partial second toe amputation. No new laxity of the midfoot noted Neuro Neuro Narrative: lack of normal epicritic sensation via light touch is consistent with neuropathy status Psych cooperative and affect normal Debridement Note Debridement Note Wound debrided: right plantar foot Wound Grade/Stage: 2 Type of Debridement: Excisional debridement Anesthesia Used: 4% Lidocaine Solution Depth: in the subcutaneous layer Percentage of wound debrided: 100 Instrument Used: #15 blade Tissue Removed: fibrous, devitalized subcutaneous, biofilm, slough Severity: Fat Layer Exposed Amount of bleeding with debridement: Mild Bleeding Controlled with: Pressure Patient tolerated procedure: Patient tolerated procedure well Post-Debridement Measurements and Additional Note: Post-Debridement Measurements/Treatment - Nurse 1 - General Ulcer Assessment Start: 01/14/22 13:16 Freq: Status: Active Protocol: NIGEL Activity Type Activity Date Activity User E-sign Co-sign Detail Recorded Client Recorded Date Recorded By Document 01/14/22 13:19 [facility] [id number] 01/14/22 13:25 [facility] 01/14/22 13:19 - Today's Visit Information Type of service Follow-up Visit (Physician/DRAGLINE MECHANIC ) Arrival Mode Ambulatory, Walker Arrival Mode (Other) KNEE WALKER Transfer Assistance None Patient Identification Verified (Name & Yes ) Patient Requires Transmission-Based No Precautions Finger Stick Blood Sugar(mg/dl) (if 132 indicated): Blood Sugar Stated by Patient Height and Weight Body Mass Index (BMI) 47.7 BMI Classification Obese Vital Signs Pulse Rate (60-100) 99 Pulse Location Monitor Respiratory Rate (12-18) 18 Respiratory rate source Ventilator Oxygen Delivery Method Room Air Blood Pressure (90/60-120/80) 167/89 H Blood Pressure Mean (mm Hg) 115 Source Monitor Position Sitting Blood Pressure Location Left Forearm History Since Last Visit- (Skip if this is Patient's initial visit) Have you changed medications since your No last visit? Any new allergies or adverse reactions No Had a fall/change in ADL's that may No increase risk of falls Signs or symptoms of abuse and/or No neglect since last visit Have you been in the hospital since your No last visit? Has dressing in place as prescribed Yes Has compression in place as prescribed Yes Has offloadiing in place as prescribed Yes Experienced any changes in pain level or No management Left Footwear Regular Shoe Right Footwear No Footwear Other Footwear 3M TO RIGHT Pain Scale: 0-10 Numeric Is Patient Pain Free? Yes [facility] Nurse 1 - General Ulcer Measurement Start: 01/14/22 13:16 Freq: Status: Active Protocol: Activity Type Activity Date Activity User E-sign Co-sign Detail Recorded Client Recorded Date Recorded By Document 01/14/22 13:19 [facility] [id number] 01/14/22 13:25 [facility] 01/14/22 13:19 Wound Center Nurse 1 #9 R Plantar -Combined with other wound No -Current Size (cm) - Length 0.1 -Current Size (cm) - Width 0.5 -Current Size (cm) - Depth 0.6 -Total Square Cm 0.05 -Date of Last Picture (Recall this 01/14/22 field) -Photo Taken Yes -Epithelialization Medium 34-66% -Tunneling No -Undermining/Tunneling No -Circular Undermining No -Exudate Amt Small -Exudate Type Serosanguineous -Wound Margin Distinct, Outline Attached -Granulation Amt Large (67-100%) -Granulation Quality [place] -Slough/Fibrin No -Necrosis Amt None Present (0 %) -Texture (Michelle-wound Skin Appearance) Assessed -Moisture (Michelle-wound Skin Appearance) Assessed, Maceration -Color (Michelle-wound Skin Appearance) Assessed -Temperature (Michelle-wound Skin No Abnormality Appearance) (Pt Warm) -Tenderness on Palpation (Michelle-wound No Skin Appearance) -Ulcer Cleansing Soap and Water -Foul Odor after Cleansing No -Anesthetic Used 5% Lidocaine Gel Lower Limb Edema Present Yes Right Calf (cm) 45.1 Right Ankle (cm) 30.7 WC - Nurse 2 - General Ulcer CM Notes Start: 01/14/22 13:16 Freq: Status: Active Protocol: Activity Type Activity Date Activity User E-sign Co-sign Detail Recorded Client Recorded Date Recorded By Document 01/14/22 13:42 PL [id number] 01/14/22 13:43 PL 01/14/22 13:42 Wound Center Nurse 2 #9 R Plantar -Time 13:33 -Correct Patient Yes -Correct Side, Site, Position Yes -Correct Procedure Yes -Procedure Performed Yes -Type of Procedure Debridement -Clinical Debridement Subcutaneous -Tissue Removed Subcutaneous -Post Debridement (cm) - Length 0.6 -Post Debridement (cm) - Width 0.5 -Post Debridement (cm) - Depth 0.9 -Total Square (Post) (cm) 0.30 -Area of Debridement (cm) - Length 0.6 -Area of Debridement (cm) - Width 0.5 -Total Square (Area) (cm) 0.30 -Tunneling No -Undermining/Tunneling No -Circular Undermining No -Wound/Ulcer Outcome Not Healed -Ulcer Cleansing Rinsed/ Irrigated with Saline -Foul Odor after Cleansing No -Bioengineered Tissue No -Bleeding Controlled with Pressure -Treatment Response Procedure Tolerated Well -Debridement - Subq, 1st 20sq cm Yes Pain Scale: 0-10 Numeric Is Patient Pain Free? Yes WC - Nurse 3 - General Ulcer D/C NN Start: 01/14/22 13:16 Freq: Status: Active Protocol: Activity Type Activity Date Activity User E-sign Co-sign Detail Recorded Client Recorded Date Recorded By Document 01/14/22 13:40 [facility] [id number] 01/14/22 13:41 [facility] 01/14/22 13:40 Wound Care Nurse 3 #9 R Plantar -Ulcer Cleansing Rinsed/ Irrigated with Saline -Foul Odor after Cleansing No -Primary Dressing Applied Nugauze, Iodoform -Other Dressing ABD -Other Covering DRSG; 3M PER RB RN -Nugauze, Iodoform 1/4 1 Right -Multi-Layered Wrap Application Multi-Layer Comp - Right ($ ) Treatment Response Procedure Tolerated Well Pain Scale: 0-10 Numeric Is Patient Pain Free? Yes WC - Visit Discharge Discharge Condition Stable Ambulatory Status Ambulatory, Walker Facility Type Home Health Assessment/Plan Assessment/Plan (1) Non-pressure chronic ulcer of other part of right foot with fat layer exposed: CODE(S): L97.512 - Non-pressure chronic ulcer of other part of right foot with fat layer exposed (2) Type 2 diabetes mellitus with diabetic polyneuropathy: CODE(S): E11.42 - Type 2 diabetes mellitus with diabetic polyneuropathy QUALIFIERS: Diabetes mellitus mcfp insulin use: unspecified mcfp insulin use status Qualified Code(s): E11.42 - Type 2 diabetes mellitus with diabetic polyneuropathy (3) Osteomyelitis: CODE(S): M86.9 - Osteomyelitis, unspecified QUALIFIERS: Osteomyelitis type: other acute Osteomyelitis location: foot Laterality: right Qualified Code(s): M86.171 - Other acute osteomyelitis, right ankle and foot (4) Tobacco abuse: CODE(S): Z72.0 - Tobacco use (5) Venous insufficiency: CODE(S): I87.2 - Venous insufficiency (chronic) (peripheral) (6) Bilateral lower extremity edema: CODE(S): R60.0 - Localized edema (7) Charcot's joint, right ankle and foot: CODE(S): M14.671 - Charcot's joint, right ankle and foot (8) Non-pressure chronic ulcer of other part of right foot with necrosis of muscle: CODE(S): L97.513 - Non-pressure chronic ulcer of other part of right foot with necrosis of muscle PLAN: Plan Patient seen and examined. Debridement was performed as noted in the clinical panel. Dressings: Iodoform gauze packing and gauze every 1 to 2 days with help of home health. Defers total contact cast due to concern of adequate transportation to remove this on time. Infection: He does have a history of recurrent ulcers with infections and even osteomyelitis. He was previously seen by infectious disease. There are no local or systemic signs of illness today however his worsening status is a concern. To monitor for development of these signs and to call immediately if these are noted. Diagnostic data: I recommend updating his labs including CBC, CMP, ESR, C-reactive protein. Also recommend updating a foot x-ray. He obtained three foot xrays on 10/06/21 which was stable without acute findings. No soft tissue emphysema, foreign body, fractures noted. there is charcot midfoot with dislocations and coalesced fragmentation. Labs from 10/06/21 with wbc 8.4, esr 66, crp, 31.60, est gfr 97. Offloading: Patient to remain nonweightbearing to the right lower extremity. Use wheelchair or knee walker / roller. Patient is noted to also have gotten an electric scooter in order to offload his foot. He is at risk for further amputation of foot or leg. He has a [place] walker ready at [employer] once healed. He relates this is no longer known at this time so I gave him a new prescription previously. Edema: To elevate limb at rest, reduce salt in diet, and perform muscular routine contraction of the lower extremity. I also recommend 3M2L dressing application. I would like to see him in a graduated edema management compression garment such as a Farrow wrap. He has an open wound to lower extremity and is at risk for limb loss continued infection and surgical intervention. To continue lotion application. I recommend Glen for nutritional supplementation to optimize healing. All questions answered. To follow-up 1 week. Note: [employer] speech recognition machine clipper software was used to create portions of this document. Sound-alike and misspelled words, as well as other machine clipper errors may be contained in the documentation.
[2022-01-21 13:12] VITALS: BP 161/87; PULSE 95; TEMP 35.5; BMI 47.7
--- NOTE | 2022-01-21 19:42 | PN.PCM_ITS ---
History of Present Illness Date of Service: 01/21/22 Chief Complaint: right ulcer to the bottom of the foot History of Wound: Patient is a 51-year-old male who presents to the wound care center for follow-up complicated right foot ulcers with history of Charcot and osteomyelitis history. He denies redness or odor, fever, chills, nausea or vomiting today. The onset of this recent plantar foot ulcer was July 25, 2021. He denies odor or redness. He reports continued drainage. He has been consistent with offloading with a knee roller. He reports significant reduction in overall activity this past week. He denies redness or streaking to the leg. He denies odors. He also has lower extremity edema. He continues to wash and moisturize his limb each time he has a dressing change. Progress of Wound: improving Objective Data Objective Data Vital Signs: Vital Signs Temp Pulse Resp BP O2 Del Method 96 F L 95 18 161/87 H Room Air 01/21/22 13:12 01/21/22 13:12 01/14/22 13:19 01/21/22 13:12 01/14/22 13:19 Oxygen Delivery Method Room Air Body Mass Index (BMI) 47.7 Physical Exam Narrative Const alert and oriented x3 General Appearance: cooperative HEENT normocephalic Extremity Extremity Narrative: No calf tenderness, no calor, negative Tammie and Andrade sign Diminished pulses Compartments remain soft to palpate right lower extremity General Extremity: edema especially to right lower extremity. No tenderness to palpation of joints or extremities; Negative for cyanosis. No gross laxity crepitus or pain with attempted passive manipulation of the midfoot at his prior Charcot site. Skin Skin Narrative: Serosanguineous mild drainage noted from plantar foot. There is no malodor noted today. Significant reduction in ulcer depth noted. This is granulation tissue noted upon debridement. No maceration. No bogginess or fluctuance on palpation. General Skin Exam: Negative for erythema MSK Muscle wasting noted Charcot foot with rocker-bottom deformity and fourth and fifth ray resection right. Partial second toe amputation. No new laxity of the midfoot noted Neuro Neuro Narrative: lack of normal epicritic sensation via light touch is consistent with neuropathy status Psych cooperative and affect normal Debridement Note Debridement Note Wound debrided: right plantar foot Wound Grade/Stage: 2 Type of Debridement: Excisional debridement Anesthesia Used: 4% Lidocaine Solution Depth: in the subcutaneous layer Percentage of wound debrided: 100 Instrument Used: #15 blade Tissue Removed: fibrous, devitalized subcutaneous, biofilm, slough Severity: Fat Layer Exposed Amount of bleeding with debridement: Mild Bleeding Controlled with: Pressure Patient tolerated procedure: Patient tolerated procedure well Post-Debridement Measurements and Additional Note: Post-Debridement Measurements/Treatment SANDEEP - Nurse 1 - General Ulcer Assessment Start: 01/14/22 13:16 Freq: Status: Active Protocol: NIGEL Activity Type Activity Date Activity User E-sign Co-sign Detail Recorded Client Recorded Date Recorded By Document 01/14/22 13:19 [facility] [id number] 01/14/22 13:25 [facility] Document 01/21/22 13:12 [place] [id number] 01/21/22 13:13 [place] 01/14/22 01/21/22 13:19 13:12 - Today's Visit Information Type of service Follow-up Visit Follow-up Visit (Physician/WATERMASTER (Physician/WATERMASTER ) ) Arrival Mode Ambulatory, Ambulatory, Walker Walker Arrival Mode (Other) KNEE WALKER Transfer Assistance None Patient Identification Verified (Name & Yes Yes ) Patient Requires Transmission-Based No Yes Precautions Safety Precautions NA Finger Stick Blood Sugar(mg/dl) (if 132 indicated): Blood Sugar Stated by Patient Height and Weight Body Mass Index (BMI) 47.7 47.7 BMI Classification Obese Obese Vital Signs Temperature (97.8 F-99.1 F) 96 F L Temperature Source Temporal Pulse Rate (60-100) 99 95 Pulse Location Monitor Monitor Respiratory Rate (12-18) 18 Respiratory rate source Ventilator Oxygen Delivery Method Room Air Blood Pressure (90/60-120/80) 167/89 H 161/87 H Blood Pressure Mean (mm Hg) 115 111 Source Monitor Monitor Position Sitting Blood Pressure Location Left Forearm History Since Last Visit- (Skip if this is Patient's initial visit) Have you changed medications since your No No last visit? Any new allergies or adverse reactions No No Had a fall/change in ADL's that may No No increase risk of falls Signs or symptoms of abuse and/or No No neglect since last visit Have you been in the hospital since your No No last visit? Has dressing in place as prescribed Yes Yes Has compression in place as prescribed Yes Yes Has offloadiing in place as prescribed Yes Yes Experienced any changes in pain level or No No management Left Footwear Regular Shoe Right Footwear No Footwear Regular Shoe Other Footwear 3M TO RIGHT Pain Scale: 0-10 Numeric Is Patient Pain Free? Yes Yes WC - Nurse 1 - General Ulcer Measurement Start: 01/14/22 13:16 Freq: Status: Active Protocol: Activity Type Activity Date Activity User E-sign Co-sign Detail Recorded Client Recorded Date Recorded By Document 01/14/22 13:19 [facility] [id number] 01/14/22 13:25 [facility] Document 01/21/22 13:12 [place] [id number] 01/21/22 13:13 [place] 01/14/22 01/21/22 13:19 13:12 Wound Center Nurse 1 #9 R Plantar -Combined with other wound No No -Current Size (cm) - Length 0.1 0.2 -Current Size (cm) - Width 0.5 0.3 -Current Size (cm) - Depth 0.6 0.2 -Total Square Cm 0.05 0.06 -Date of Last Picture (Recall this 01/14/22 field) -Photo Taken Yes No -Epithelialization Medium 34-66% -Tunneling No No -Undermining/Tunneling No No -Circular Undermining No No -Change in Wound Grade/Stage No -Exudate Amt Small Medium -Exudate Type Serosanguineous Serosanguineous -Wound Margin Distinct, Distinct, Outline Outline Attached Attached -Granulation Amt Large (67-100%) Medium (34-66%) -Granulation Quality [place] -Slough/Fibrin No Yes -Necrosis Amt None Present (0 Small (1-33%) %) -Necrotic Tissue Type Adherent Slough -Structure Exposed N/A -Texture (Michelle-wound Skin Appearance) Assessed No Abnormality, Assessed -Moisture (Michelle-wound Skin Appearance) Assessed, No Abnormality, Maceration Assessed -Color (Michelle-wound Skin Appearance) Assessed No Abnormality, Assessed -Temperature (Michelle-wound Skin No Abnormality No Abnormality Appearance) (Pt Warm) (Pt Warm) -Tenderness on Palpation (Michelle-wound No No Skin Appearance) -Ulcer Cleansing Soap and Water Soap and Water -Foul Odor after Cleansing No No -Anesthetic Used 5% Lidocaine Gel Lower Limb Edema Present Yes Right Calf (cm) 45.1 Right Ankle (cm) 30.7 WC - Nurse 2 - General Ulcer CM Notes Start: 01/14/22 13:16 Freq: Status: Active Protocol: Activity Type Activity Date Activity User E-sign Co-sign Detail Recorded Client Recorded Date Recorded By Document 01/14/22 13:42 PL [id number] 01/14/22 13:43 PL Document 01/21/22 13:19 JF [id number] 01/21/22 13:20 JF 01/14/22 01/21/22 13:42 13:19 Wound Center Nurse 2 #9 R Plantar -Time 13:33 13:20 -Correct Patient Yes Yes -Correct Side, Site, Position Yes Yes -Correct Procedure Yes Yes -Procedure Performed Yes Yes -Type of Procedure Debridement Debridement -Clinical Debridement Subcutaneous Subcutaneous -Tissue Removed Subcutaneous Subcutaneous -Post Debridement (cm) - Length 0.6 0.3 -Post Debridement (cm) - Width 0.5 0.2 -Post Debridement (cm) - Depth 0.9 0.4 -Total Square (Post) (cm) 0.30 0.06 -Area of Debridement (cm) - Length 0.6 0.3 -Area of Debridement (cm) - Width 0.5 0.2 -Total Square (Area) (cm) 0.30 0.06 -Tunneling No No -Undermining/Tunneling No No -Circular Undermining No No -Wound/Ulcer Outcome Not Healed Not Healed -Ulcer Cleansing Rinsed/ Rinsed/ Irrigated with Irrigated with Saline Saline -Foul Odor after Cleansing No No -Bioengineered Tissue No No -Bleeding Controlled with Pressure Pressure -Treatment Response Procedure Procedure Tolerated Well Tolerated Well -Offloading No -Debridement - Subq, 1st 20sq cm Yes Yes Pain Scale: 0-10 Numeric Is Patient Pain Free? Yes Yes - Nurse 3 - General Ulcer D/C NN Start: 01/14/22 13:16 Freq: Status: Active Protocol: Activity Type Activity Date Activity User E-sign Co-sign Detail Recorded Client Recorded Date Recorded By Document 01/14/22 13:40 BMF [id number] 01/14/22 13:41 BMF Document 01/21/22 13:38 DL [id number] 01/21/22 13:39 DL 01/14/22 01/21/22 13:40 13:38 Wound Care Nurse 3 #9 R Plantar -Ulcer Cleansing Rinsed/ Soap and Water Irrigated with Saline -Foul Odor after Cleansing No No -Primary Dressing Applied Nugauze, Iodoform -Other Dressing ABD aquacel AG today in clinic -Primary Dressing Covered/Secured with Dry Gauze, Secured with Tape -Other Covering DRSG; 3M PER RB RN -Nugauze, Iodoform 07/15 1 Right -Multi-Layered Wrap Application Multi-Layer Multi-Layer Comp - Right ($ Comp - Right ($ ) ) Treatment Response Procedure Tolerated Well Pain Scale: 0-10 Numeric Is Patient Pain Free? Yes Yes WC - Visit Discharge Discharge Condition Stable Stable Ambulatory Status Ambulatory, Ambulatory, Walker Walker Transportation Private Auto Notes: Resume Iodoform with next dressing change per Facility [facility] Orders Sent Yes Assessment/Plan Assessment/Plan (1) Non-pressure chronic ulcer of other part of right foot with fat layer exposed: CODE(S): L97.512 - Non-pressure chronic ulcer of other part of right foot with fat layer exposed (2) Type 2 diabetes mellitus with diabetic polyneuropathy: CODE(S): E11.42 - Type 2 diabetes mellitus with diabetic polyneuropathy QUALIFIERS: Diabetes mellitus intermediate card tender insulin use: unspecified care home insulin use status Qualified Code(s): E11.42 - Type 2 diabetes mellitus with diabetic polyneuropathy (3) Osteomyelitis: CODE(S): M86.9 - Osteomyelitis, unspecified QUALIFIERS: Osteomyelitis type: other acute Osteomyelitis locat ion: foot Laterality: right Qualified Code(s): M86.171 - Other acute osteomyelitis, right ankle and foot (4) Tobacco abuse: CODE(S): Z72.0 - Tobacco use (5) Venous insufficiency: CODE(S): I87.2 - Venous insufficiency (chronic) (peripheral) (6) Bilateral lower extremity edema: CODE(S): R60.0 - Localized edema (7) Charcot's joint, right ankle and foot: CODE(S): M14.671 - Charcot's joint, right ankle and foot (8) Non-pressure chronic ulcer of other part of right foot with necrosis of muscle: CODE(S): L97.513 - Non-pressure chronic ulcer of other part of right foot with necrosis of muscle PLAN: Plan Patient seen and examined. Debridement was performed as noted in the clinical panel. Dressings: Iodoform gauze packing and gauze every 1 to 2 days with help of home health. Defers total contact cast due to concern of adequate transportation to remove this on time. Infection: He does have a history of recurrent ulcers with infections and even osteomyelitis. He was previously seen by infectious disease. There are no local or systemic signs of illness today however his worsening status is a concern. To monitor for development of these signs and to call immediately if these are noted. Diagnostic data: I recommend updating his labs including CBC, CMP, ESR, C- reactive protein. Also recommend updating a foot x-ray. He obtained three foot xrays on 10/06/21 which was stable without acute findings. No soft tissue emphysema, foreign body, fractures noted. there is charcot midfoot with dislocations and coalesced fragmentation. Labs from 10/06/21 with wbc 8.4, esr 66, crp, 31.60, est gfr 97. Offloading: Patient to remain nonweightbearing to the right lower extremity. Use wheelchair or knee walker / roller. Patient is noted to also have gotten an electric scooter in order to offload his foot. He is at risk for further amputation of foot or leg. He has a WIY[place] walker ready at [employer] once healed. He relates this is no longer known at this time so I gave him a new prescription previously. Edema: To elevate limb at rest, reduce salt in diet, and perform muscular routine contraction of the lower extremity. I also recommend 3M2L dressing application. I would like to see him in a graduated edema management compression garment such as a Farrow wrap. He has an open wound to lower extremity and is at risk for limb loss continued infection and surgical intervention. To continue lotion application. I recommend Glen for nutritional supplementation to optimize healing. All questions answered. To follow-up 1 week. Note: [facility] speech recognition acid crane operator software was used to create portions of this document. Sound-alike and misspelled words, as well as other acid crane operator errors may be contained in the documentation.
== END 2022-02-08 23:59 | disposition home or self-care (01) ==
LOC: WC 13:00
PROVIDERS: PCP Internal Medicine; Referring Provider Podiatrist Foot & Ankle Surgery; Visit Provider Podiatrist
DX: E11.621 Type 2 diabetes mellitus with foot ulcer (principal); L97.512 Non-pressure chronic ulcer of other part of right foot with fat layer exposed; L97.513 Non-pressure chronic ulcer of other part of right foot with necrosis of muscle; M86.171 Other acute osteomyelitis, right ankle and foot; E11.59 Type 2 diabetes mellitus with other circulatory complications; E11.42 Type 2 diabetes mellitus with diabetic polyneuropathy; E11.610 Type 2 diabetes mellitus with diabetic neuropathic arthropathy; Z79.4 Long term (current) use of insulin; R60.0 Localized edema; I87.2 Venous insufficiency (chronic) (peripheral); Z72.0 Tobacco use
CPT/HCPCS: 11042; 29581

== ENCOUNTER 2022-02-11 13:37 | Outpatient (RCR) | payer MEDICAID, SELFPAY ==
[2022-02-09 00:24] VITALS: BP 161/87; PULSE 95; RESP 18; TEMP 35.5; BMI 47.7
[2022-02-11 13:42] VITALS: BP 163/89; PULSE 99; RESP 22; TEMP 37; BMI 47.7
--- NOTE | 2022-02-11 15:44 | PN.PCM_ITS ---
History of Present Illness Date of Service: 02/11/22 Chief Complaint: right ulcer to the bottom of the foot History of Wound: Patient is a 51-year-old male who presents to the wound care center for follow-up complicated right foot ulcers with history of Charcot and osteomyelitis history. He denies redness or odor, fever, chills, nausea or vomiting today. The onset of this recent plantar foot ulcer was July 25, 2021. He denies odor or redness. He reports continued drainage. He has been consistent with offloading with a knee roller. He reports significant reduction in overall activity this past week and missed a recent appointment. He denies redness or streaking to the leg. He denies odors. He also has lower extremity edema. He continues to wash and moisturize his limb each time he has a dressing change. Progress of Wound: increased depth recently Objective Data Objective Data Vital Signs: Vital Signs Temp Pulse Resp BP O2 Del Method 98.6 F 99 22 H 163/89 H Room Air 02/11/22 13:42 02/11/22 13:42 02/11/22 13:42 02/11/22 13:42 02/11/22 13:42 Oxygen Delivery Method Room Air Body Mass Index (BMI) 47.7 Physical Exam Narrative Const alert and oriented x3 General Appearance: cooperative HEENT normocephalic Extremity Extremity Narrative: No calf tenderness, no calor, negative Tammie and Andrade sign Diminished pulses Compartments remain soft to palpate right lower extremity General Extremity: edema especially to right lower extremity. No tenderness to palpation of joints or extremities; Negative for cyanosis. No gross laxity crepitus or pain with attempted passive manipulation of the midfoot at his prior Charcot site. Skin Skin Narrative: Serosanguineous mild drainage noted from plantar foot. There is no malodor noted today. return of increased ulcer depth noted. This is granulation tissue noted upon debridement. No maceration. No bogginess or fluctuance on palpation. General Skin Exam: Negative for erythema MSK Muscle wasting noted Charcot foot with rocker-bottom deformity and fourth and fifth ray resection right. Partial second toe amputation. No new laxity of the midfoot noted Neuro Neuro Narrative: lack of normal epicritic sensation via light touch is consistent with neuropathy status Psych cooperative and affect normal Debridement Note Debridement Note Wound debrided: right plantar foot Wound Grade/Stage: 2 Type of Debridement: Excisional debridement Anesthesia Used: 4% Lidocaine Solution Depth: in the subcutaneous layer Percentage of wound debrided: 100 Instrument Used: #15 blade Tissue Removed: fibrous, devitalized subcutaneous, biofilm, slough Severity: Fat Layer Exposed Amount of bleeding with debridement: Mild Bleeding Controlled with: Pressure Patient tolerated procedure: Patient tolerated procedure well Post-Debridement Measurements and Additional Note: Post-Debridement Measurements/Treatment SANDEEP - Nurse 1 - General Ulcer Assessment Start: 02/11/22 13:42 Freq: Status: Active Protocol: NIGEL Activity Type Activity Date Activity User E-sign Co-sign Detail Recorded Client Recorded Date Recorded By Document 02/11/22 13:42 DL [id number] 02/11/22 13:50 DL 02/11/22 13:42 WC - Today's Visit Information Type of service Follow-up Visit (Physician/ASSEMBLER BILLIARD TABLE ) Arrival Mode Ambulatory, Walker Transfer Assistance None Patient Identification Verified (Name & Yes ) Patient Requires Transmission-Based No Precautions Finger Stick Blood Sugar(mg/dl) (if 148 indicated): Height and Weight Body Mass Index (BMI) 47.7 BMI Classification Obese Vital Signs Temperature (97.8 F-99.1 F) 98.6 F Temperature Source Temporal Pulse Rate (60-100) 99 Pulse Location Monitor Respiratory Rate (12-18) 22 H Respiratory rate source Observation Oxygen Delivery Method Room Air Blood Pressure (90/60-120/80) 163/89 H Blood Pressure Mean (mm Hg) 113 History Since Last Visit- (Skip if this is Patient's initial visit) Have you changed medications since your No last visit? Any new allergies or adverse reactions No Had a fall/change in ADL's that may No increase risk of falls Signs or symptoms of abuse and/or No neglect since last visit Have you been in the hospital since your No last visit? Has dressing in place as prescribed Yes Has compression in place as prescribed Yes Has offloadiing in place as prescribed N/A Experienced any changes in pain level or No management Pain Scale: 0-10 Numeric Is Patient Pain Free? Yes SANDEEP Murray Nurse 1 - General Ulcer Measurement Start: 02/11/22 13:42 Freq: Status: Active Protocol: Activity Type Activity Date Activity User E-sign Co-sign Detail Recorded Client Recorded Date Recorded By Document 02/11/22 13:42 DL [id number] 02/11/22 13:50 DL 02/11/22 13:42 Wound Center Nurse 1 #9 R Plantar -Combined with other wound No -Current Size (cm) - Length 0.4 -Current Size (cm) - Width 0.4 -Current Size (cm) - Depth 0.3 -Total Square Cm 0.16 -Date of Last Picture (Recall this 02/11/22 field) -Photo Taken Yes -Epithelialization None Present -Tunneling No -Undermining/Tunneling No -Circular Undermining No -Exudate Amt Large -Exudate Type Purulent -Wound Margin Distinct, Outline Attached -Granulation Amt Large (67-100%) -Granulation Quality Red -Slough/Fibrin No -Necrosis Amt None Present (0 %) -Texture (Michelle-wound Skin Appearance) Assessed, Scarring -Moisture (Michelle-wound Skin Appearance) Assessed -Color (Michelle-wound Skin Appearance) Assessed -Temperature (Michelle-wound Skin No Abnormality Appearance) (Pt Warm) -Tenderness on Palpation (Michelle-wound No Skin Appearance) -Ulcer Cleansing Soap and Water -Foul Odor after Cleansing No -Anesthetic Used 5% Lidocaine Gel Lower Limb Edema Present Yes Right Calf (cm) 44.8 Right Ankle (cm) 30 WC - Nurse 2 - General Ulcer CM Notes Start: 02/11/22 13:42 Freq: Status: Active Protocol: Activity Type Activity Date Activity User E-sign Co-sign Detail Recorded Client Recorded Date Recorded By Document 02/11/22 14:01 [id number] 02/11/22 14:03 02/11/22 14:01 Wound Center Nurse 2 #9 R Plantar -Time 14:02 -Correct Patient Yes -Correct Side, Site, Position Yes -Correct Procedure Yes -Procedure Performed Yes -Type of Procedure Debridement -Clinical Debridement Subcutaneous -Tissue Removed Subcutaneous -Post Debridement (cm) - Length 0.5 -Post Debridement (cm) - Width 0.4 -Post Debridement (cm) - Depth 3.0 -Total Square (Post) (cm) 0.20 -Area of Debridement (cm) - Length 0.5 -Area of Debridement (cm) - Width 0.4 -Total Square (Area) (cm) 0.20 -Tunneling No -Undermining/Tunneling No -Circular Undermining No -Wound/Ulcer Outcome Not Healed -Ulcer Cleansing Rinsed/ Irrigated with Saline -Foul Odor after Cleansing No -Bioengineered Tissue No -Bleeding Controlled with Pressure -Treatment Response Procedure Tolerated Well -Offloading Yes -Type of Offloading Knee Walker -Debridement - Subq, 1st 20sq cm Yes Pain Scale: 0-10 Numeric Is Patient Pain Free? Yes - Nurse 3 - General Ulcer D/C NN Start: 02/11/22 13:42 Freq: Status: Active Protocol: Activity Type Activity Date Activity User E-sign Co-sign Detail Recorded Client Recorded Date Recorded By Document 02/11/22 14:17 [facility] [id number] 02/11/22 14:18 [facility] 02/11/22 14:17 Wound Care Nurse 3 #9 R Plantar -Ulcer Cleansing Rinsed/ Irrigated with Saline -Foul Odor after Cleansing No -Primary Dressing Applied Nugauze, Iodoform -Other Dressing ABD -Nugauze, Iodoform 1/ 1 Right -Multi-Layered Wrap Application Multi-Layer Comp - Right ($ ) Treatment Response Procedure Tolerated Well Pain Scale: 0-10 Numeric Is Patient Pain Free? Yes WC - Visit Discharge Discharge Condition Stable Ambulatory Status Ambulatory, Walker Notes: [facility] Facility Type Home Health Assessment/Plan Assessment/Plan (1) Non-pressure chronic ulcer of other part of right foot with fat layer exposed: CODE(S): L97.512 - Non-pressure chronic ulcer of other part of right foot with fat layer exposed (2) Type 2 diabetes mellitus with diabetic polyneuropathy: CODE(S): E11.42 - Type 2 diabetes mellitus with diabetic polyneuropathy QUALIFIERS: Diabetes mellitus fci insulin use: unspecified extermination inspector insulin use status Qualified Code(s): E11.42 - Type 2 diabetes mellitus with diabetic polyneuropathy (3) Osteomyelitis: CODE(S): M86.9 - Osteomyelitis, unspecified QUALIFIERS: Laterality: right Osteomyelitis location: foot Osteomyelitis type: other acute Qualified Code(s): M86.171 - Other acute osteomyelitis, right ankle and foot (4) Tobacco abuse: CODE(S): Z72.0 - Tobacco use (5) Venous insufficiency: CODE(S): I87.2 - Venous insufficiency (chronic) (peripheral) (6) Bilateral lower extremity edema: CODE(S): R60.0 - Localized edema (7) Charcot's joint, right ankle and foot: CODE(S): M14.671 - Charcot's joint, right ankle and foot (8) Non-pressure chronic ulcer of other part of right foot with necrosis of muscle: CODE(S): L97.513 - Non-pressure chronic ulcer of other part of right foot with necrosis of muscle PLAN: Plan Patient seen and examined. Debridement was performed as noted in the clinical panel. Dressings: Iodoform gauze packing and gauze every 1 to 2 days with help of home health. Defers total contact cast due to concern of adequate transportation to remove this on time. Infection: He does have a history of recurrent ulcers with infections and even osteomyelitis. He was previously seen by infectious disease. There are no local or systemic signs of illness today however his worsening status is a concern. To monitor for development of these signs and to call immediately if these are noted. Diagnostic data: I recommend updating his labs including CBC, CMP, ESR, C- reactive protein. Also recommend updating a foot x-ray. He obtained three foot xrays on 10/06/21 which was stable without acute findings. No soft tissue emphysema, foreign body, fractures noted. there is charcot midfoot with dislocations and coalesced fragmentation. Labs from 10/06/21 with wbc 8.4, esr 66, crp, 31.60, est gfr 97. Offloading: Patient to remain nonweightbearing to the right lower extremity. Use wheelchair or knee walker / roller. Patient is noted to also have gotten an electric scooter in order to offload his foot. He is at risk for further amputation of foot or leg. [facility] [employer] [facility]. He relates this is no longer known at this time so I gave him a new prescription previously. Edema: To elevate limb at rest, reduce salt in diet, and perform muscular routine contraction of the lower extremity. I also recommend 3M2L dressing application. I would like to see him in a graduated edema management compression garment such as a Farrow wrap. He has an open wound to lower extremity and is at risk for limb loss continued infection and surgical intervention. To continue lotion application. I recommend Glen for nutritional supplementation to optimize healing. He has overal lack of healing with reoccurence of ulcer depth to midfoot joint due to chronic infections and charcot. We discussed more aggressive options at length today including continued wound care vs ulcer tract excision with rotational closure vs charcot reconstruction vs below knee amputation. He does not want to proceed with a procedure at this time. Benefits and risks of each option were reviewed today. All questions answered. To follow-up 1 week. Note: [employer] speech recognition coil connector repairer software was used to create portions of this document. Sound-alike and misspelled words, as well as other coil connector repairer errors may be contained in the documentation. The medical decision making level is moderate. There is noted moderate risk of morbidity after considering this treatment plan and diagnostic data. Considerations were given to prescription management, decisions regarding moreno rgical options, or social determinants of health. The problems addressed require a moderate decision making level which includes one or more chronic illnesses (w/ exacerbation, progression, or side effects), two or more stable chronic illnesses, one undiagnosed new problem w/ uncertain prognosis, one acute illness with systemic symptoms, or one acute complicated injury.
== END 2022-03-11 23:59 | disposition home or self-care (01) ==
LOC: WC 13:37
PROVIDERS: PCP Internal Medicine; Referring Provider Podiatrist Foot & Ankle Surgery; Visit Provider Podiatrist
DX: E11.621 Type 2 diabetes mellitus with foot ulcer (principal); L97.512 Non-pressure chronic ulcer of other part of right foot with fat layer exposed; L97.513 Non-pressure chronic ulcer of other part of right foot with necrosis of muscle; M86.171 Other acute osteomyelitis, right ankle and foot; E11.59 Type 2 diabetes mellitus with other circulatory complications; E11.42 Type 2 diabetes mellitus with diabetic polyneuropathy; E11.610 Type 2 diabetes mellitus with diabetic neuropathic arthropathy; Z79.4 Long term (current) use of insulin; I87.2 Venous insufficiency (chronic) (peripheral); Z72.0 Tobacco use; Z60.9 Problem related to social environment, unspecified; R60.0 Localized edema; M14.671 Charcot's joint, right ankle and foot
CPT/HCPCS: 11042; 29581

== ENCOUNTER → 2022-04-28 | Outpatient (CLI) | payer MEDICAID, SELFPAY ==
[2022-04-28 12:32] LABS: Absolute Neutrophil Count 5.1 X10^3/uL (2.0-7.7); Basophil# 0.07 X10^3/uL; Basophil% 0.9 % (0-1); Eosinophil# 0.24 X10^3/uL; Eosinophils% 3.1 % (0-5); Hematocrit 47.1 % (40-54); Hemoglobin 15.2 g/dL (13.0-16.5); Mean Corp Hgb Conc 32.3 g/dL (32-36); Mean Corpuscular Hgb 26.9 pg (27.0-32.0); Mean Corpuscular Volume 83.4 fL (80-94); Mean Platelet Vol. 12.9 fl (6.2-12.0); Monocyte# 0.54 X10^3/uL; NRBC Flagged by Analyzer 0 % (0-5); Neutrophil # 5.12 X10^3/uL (2.7-7.7); Neutrophil % 66.1 % (47-70); Platelet Count 101 K/mm3 (150-450); RBC Distribution Width CV 15.9 % (11.6-14.6); RBC Distribution Width SD 48.7 fl (35.1-43.9); Red Blood Count 5.65 M/mm3 (4.6-6.2); White Blood Count 7.7 K/mm3 (4.4-11.0)
[2022-04-28 12:52] LABS: ALB/GLOB Ratio 0.6 RATIO (0.9-2.4); AST(SGOT) 15 U/L (15-37); Alanine Aminotransfer ALT/SGPT 18 U/L (16-61); Albumin, Serum 3.3 g/dL (3.2-5.0); Alkaline Phosphatase 81 U/L (45-117); Anion Gap 6 (5-15); BUN 9 mg/dL (7-18); BUN/Creat Ratio 8.1 RATIO (10-20); Calcium,Total 8.9 mg/dL (8.5-10.1); Chloride 99 mmol/L (98-107); Cholesterol 166 mg/dL (200); Creatinine, Serum 1.11 mg/dL (0.70-1.30); EST Glomerular Filtration Rate 74 mL/min (>60); Est Glom Filt Rate - Afr Amer 90 mL/min (>60); Globulin 5.2 g/dL (2.2-4.2); Glucose 241 mg/dL (74-106); High Density Lipoprotein 44 mg/dL; Potassium 4.5 mmol/L (3.5-5.1); Protein, Total 8.5 g/dL (6.4-8.2); Sodium Level 135 mmol/L (136-145); Thyroid Stim Hormone (TSH) 2.77 uIU/mL (0.358-3.74); Triglycerides 125 mg/dL; Very Low Density Lipoprotein 25 mg/dL (5-40)
[2022-05-06 00:07] LABS: Testosterone, Free 7.64 ng/dL (5.00-21.00)
[2022-05-06 09:51] LABS: Testosterone, % Free 2.68 % (1.50-4.20); Testosterone, Total 285 ng/dL (264-916)
== END | disposition home or self-care (01) ==
LOC: BIMLAB 08:40
PROVIDERS: PCP Internal Medicine; Referring Provider Physician Assistant; Visit Provider Physician Assistant
DX: Z00.00 Encounter for general adult medical examination without abnormal findings (principal); E11.9 Type 2 diabetes mellitus without complications; I10 Essential (primary) hypertension; N52.9 Male erectile dysfunction, unspecified
CPT/HCPCS: 36415; 80053; 80061; 84402; 84403; 84443; 85025

== ENCOUNTER 2022-04-30 10:00 | Outpatient (RCR) | payer MEDICAID, SELFPAY ==
[2022-03-12 00:27] VITALS: BP 163/89; PULSE 99; RESP 22; TEMP 37; BMI 47.7
[2022-04-16 10:47] VITALS: BP 128/79; PULSE 68; TEMP 36.4; BMI 47.7
--- NOTE | 2022-04-16 12:37 | PN.PCM_ITS ---
History of Present Illness Date of Service: 04/16/22 Chief Complaint: right ulcer to the bottom of the foot History of Wound: Patient is a 51-year-old male who presents to the wound care center for follow-up complicated right foot ulcers with history of Charcot and osteomyelitis history. He denies redness or odor, fever, chills, nausea or vomiting today. The onset of this recent plantar foot ulcer was July 25, 2021. He denies odor or redness. He reports continued drainage. He has been consistent with offloading with a knee roller. He reports significant reduction in overall activity this past week and missed a recent appointment. He denies redness or streaking to the leg. He denies odors. He also has lower extremity edema. He continues to wash and moisturize his limb each time he has a dressing change. Subjective Subjective Patient is a 51-year-old male with history of Charcot foot deformity of the right foot with plantar foot ulceration. He was previously seen by Dr. Jonh in the wound center but has not returned since February 2022 due to unwillingness to accept her medical recommendations. He has been continuing to have visiting nursing pack his wound site with iodoform twice a week. He is remaining no nweightbearing to the right lower extremity with use of a knee scooter. He denies any constitutional symptoms today. He has no further complaints today. Objective Data Objective Data Vital Signs: Vital Signs Temp Pulse Resp BP 97.6 F L 68 22 H 128/79 H 04/16/22 10:47 04/16/22 10:47 03/12/22 00:27 04/16/22 10:47 Body Mass Index (BMI) 47.7 Physical Exam Const alert, oriented x3, no apparent distress and well nourished General Appearance: cooperative HEENT normocephalic Eyes General Eye: normal appearance of both eyes Neck General: normal visual inspection Lymph Lymphatic: no lymphadenopathy noted and no lymphedema noted Resp normal respiratory effort Cardio regular rate and regular rhythm Extremity normal capillary refill, no joint enlargement, no calf tenderness and no pedal edema Extremity Narrative: No calf tenderness, no calor, negative Tammie and Andrade sign Diminished pulses Compartments remain soft to palpate right lower extremity Edema especially to right lower extremity.? No tenderness to palpation of joints or extremities; Negative for cyanosis. No gross laxity crepitus or pain with attempted passive manipulation of the midf oot at his prior Charcot site. Musculoskeletal: Muscle wasting noted Charcot foot with rocker-bottom deformity and fourth and fifth ray resection right.?Partial second toe amputation.?No new laxity of the midfoot noted Skin no rashes or lesions noted, skin turgor normal and no jaundice General Skin Exam: Negative for erythema Wound Narrative: Serosanguineous mild drainage noted from plantar foot. There is no malodor noted today. Ulceration does not probe to bone.?There is granulation tissue noted upon debridement.?No maceration.? No bogginess or fluctuance on palpation.? Neuro moves all extremities Neuro Narrative: Lack of normal epicritic sensation via light touch is consistent with neuropathy status Debridement Note Debridement Note Wound debrided: Plantar midfoot ulceration Laterality: Right Wound Grade/Stage: Sams stage II Type of Debridement: Excisional debridement Anesthesia Used: 5% Lidocaine Gel Depth: Down to and including healthy tissue and in the subcutaneous layer Percentage of wound debrided: 100 Instrument Used: 3mm curette Tissue Removed: Fibrous, devitalized subcutaneous, biofilm, slough Severity: Fat Layer Exposed Amount of bleeding with debridement: Mild Bleeding Controlled with: Compression and gauze Patient tolerated procedure: Patient tolerated procedure well Post-Debridement Measurements and Additional Note: Post-Debridement Measurements/Treatment - Nurse 1 - General Ulcer Assessment Start: 04/16/22 10:47 Freq: Status: Active Protocol: .LOWEXT Activity Type Activity Date Activity User E-sign Co-sign Detail Recorded Client Recorded Date Recorded By Document 04/16/22 10:47 TOÑA [id number] 04/16/22 10:49 TOÑA 04/16/22 10:47 - Today's Visit Information Type of service Follow-up Visit (Physician/SHOW DESIGN SUPERVISOR ) Arrival Mode Ambulatory, Walker Patient Identification Verified (Name & Yes ) Height and Weight Body Mass Index (BMI) 47.7 BMI Classification Obese Vital Signs Temperature (97.8 F-99.1 F) 97.6 F L Temperature Source Temporal Pulse Rate (60-100) 68 Pulse Location Monitor Blood Pressure (90/60-120/80) 128/79 H Blood Pressure Mean (mm Hg) 95 Source Monitor Position Semi-Fowlers Blood Pressure Location Left Arm History Since Last Visit- (Skip if this is Patient's initial visit) Have you changed medications since your No last visit? Any new allergies or adverse reactions No Had a fall/change in ADL's that may No increase risk of falls Signs or symptoms of abuse and/or No neglect since last visit Have you been in the hospital since your No last visit? Has dressing in place as prescribed Yes Has compression in place as prescribed Yes Has offloadiing in place as prescribed N/A Experienced any changes in pain level or No management Left Footwear Regular Shoe Right Footwear Regular Shoe Pain Scale: 0-10 Numeric Is Patient Pain Free? Yes - Nurse 1 - General Ulcer Measurement Start: 04/16/22 10:47 Freq: Status: Active Protocol: Activity Type Activity Date Activity User E-sign Co-sign Detail Recorded Client Recorded Date Recorded By Document 04/16/22 10:47 KR [id number] 04/16/22 10:49 KR 04/16/22 10:47 Wound Center Nurse 1 #9 R Plantar -Current Size (cm) - Length 0.3 -Current Size (cm) - Width 0.4 -Current Size (cm) - Depth 0.1 -Total Square Cm 0.12 -Exudate Amt Small -Exudate Type Serosanguineous -Wound Margin Distinct, Outline Attached -Granulation Amt Small (1-33%) -Granulation Quality [place] -Necrosis Amt None Present (0 %) -Texture (Michelle-wound Skin Appearance) Assessed, Scarring -Moisture (Michelle-wound Skin Appearance) No Abnormality, Assessed -Color (Michelle-wound Skin Appearance) No Abnormality, Assessed -Temperature (Michelle-wound Skin No Abnormality Appearance) (Pt Warm) -Tenderness on Palpation (Michelle-wound No Skin Appearance) -Ulcer Cleansing Soap and Water -Foul Odor after Cleansing No -Anesthetic Used 5% Lidocaine Gel Right Calf (cm) 45 Right Ankle (cm) 28 - Nurse 3 - General Ulcer D/C NN Start: 04/16/22 10:47 Freq: Status: Active Protocol: Activity Type Activity Date Activity User E-sign Co-sign Detail Recorded Client Recorded Date Recorded By Document 04/16/22 12:00 KR [id number] 04/16/22 12:01 KR 04/16/22 12:00 Wound Care Nurse 3 #9 R Plantar -Ulcer Cleansing Rinsed/ Irrigated with Saline -Primary Dressing Applied Nugauze, Iodoform -Primary Dressing Covered/Secured with Dry Gauze, Secured with Tape -Nugauze, Iodoform / 1 Right -Multi-Layered Wrap Application Multi-Layer Comp - Right ($ ) Pain Scale: 0-10 Numeric Is Patient Pain Free? Yes WC - Visit Discharge Discharge Condition Stable Ambulatory Status Ambulatory Transportation Private Auto Assessment/Plan Assessment/Plan (1) Non-pressure chronic ulcer of other part of right foot with necrosis of muscle: CODE(S): L97.513 - Non-pressure chronic ulcer of other part of right foot with necrosis of muscle (2) Chronic venous insufficiency: CODE(S): I87.2 - Venous insufficiency (chronic) (peripheral) (3) Charcot's joint, right ankle and foot: CODE(S): M14.671 - Charcot's joint, right ankle and foot (4) Type 2 diabetes mellitus with diabetic polyneuropathy: CODE(S): E11.42 - Type 2 diabetes mellitus with diabetic polyneuropathy QUALIFIERS: Diabetes mellitus long-term insulin use: unspecified long-term insulin use status Qualified Code(s): E11.42 - Type 2 diabetes mellitus with diabetic polyneuropathy (5) Bilateral lower extremity edema: CODE(S): R60.0 - Localized edema (6) Ulcer of right foot with necrosis of muscle: CODE(S): L97.513 - Non-pressure chronic ulcer of other part of right foot with necrosis of muscle PLAN: Plan Patient seen and examined. Debridement was performed as noted in the clinical panel. Ulceration measures 0.4 cm x 0.5 cm x 0.2 cm. Ulceration does not probe to bone. No signs of infection. Dressings: Iodoform gauze packing and gauze every 1 to 2 days with help of home health. Continues to defer total contact cast due to concern of adequate transportation to remove this on time. Infection: He does have a history of recurrent ulcers with infections and even osteomyelitis.? He was previously seen by infectious disease.? There are no local or systemic signs of illness today.? He is to monitor for development of signs of infection and to call immediately if these are noted or report to the ED. Diagnostic data: I recommend updating his labs including CBC, CMP, ESR, C- reactive protein. Labs from 10/06/21 with wbc 8.4, esr 66, crp, 31.60, est gfr 97.?Will update a foot x-ray, orders placed today and will review. He obtained three foot xrays on 10/06/21 which was stable without acute findings. No soft tissue emphysema, foreign body, fractures noted. There is charcot midfoot with dislocations and coalesced fragmentation. Offloading:? Patient to remain nonweightbearing to the right lower extremity. Use wheelchair or knee walker / roller.? He currently utilizes knee scooter for offloading. Patient is noted to also have gotten an electric scooter in order to offload his foot.? ? I discussed with him today that he is at risk for further amputation of foot or leg. He has a [place] walker ready at [employer] once healed. I discussed calling [employer] to picker feeder his [employer] walker so it is ready for him to use once his ulceration has healed. Edema: To elevate limb at rest, reduce salt in diet, and perform muscular routine contraction of the lower extremity.?Recommend 3M2L dressing application. I agree with previous recommendations by Dr. John to see him in a graduated edema management compression garment such as a Farrow wrap.? He currently has an open wound to lower extremity and is at risk for limb loss continued infection and surgical intervention. To continue lotion application, avoiding the uclerative site. I recommend continued Glen for nutritional supplementation to optimize healing. He has overall lack of healing with reoccurrence of ulcer depth to midfoot joint due to chronic infections and charcot. I have discussed with him today that I am in agreement with previous medical recommendations by Dr. John in that more aggressive options may be reqiured to aid in healing or prevent continued infection including continued wound care vs ulcer tract excision with rotational closure vs charcot reconstruction vs below knee amputation.? He still does not want to proceed with any procedure at this time. Benefits and risks of each option were reviewed today. All questions answered. ? To follow-up 1 week. Note: [employer] speech recognition microbiology soil scientist software was used to create portions of this document. Sound-alike and misspelled words, as well as other microbiology soil scientist errors may be contained in the documentation. The problems addressed require a moderate decision making level which? includes one or more chronic illnesses (w/ exacerbation, progression, or side effects), two or more stable chronic illnesses, one undiagnosed new problem w/ uncertain prognosis, one acute illness with systemic symptoms, or one acute complicated injury.
--- NOTE | 2022-04-24 11:43 | RAD_ITS ---
STUDY: X-RAY - RIGHT FOOT CLINICAL: Male, 51 years old. NON HEALING WOUND TECHNIQUE: 3 view(s) of the foot. COMPARISON: None. FINDINGS: There is absence of the distal aspect of the second proximal phalanx as well as the second middle and distal phalanges. There is amputation at the bases of the fourth and fifth metatarsals. There is extensive bony erosion of the tarsal bones more pronounced laterally. Findings are consistent with Charcot joint. There is reversal of the arch of the foot. There is severe soft tissue edema. RAD/Foot min 3 Views IMPRESSION: Findings consistent with Charcot joint/osteomyelitis of the mid foot. This involves the tarsal bones more so laterally with bony osteopenia is seen in this region. Amputation extending from the bases of the fourth and fifth metatarsals as well as amputation of the middle and distal phalanges of the second toe. Extensive soft tissue swelling. Electronically Signed: Soto Hanson MD, JORGE ALBERTO at 17:02 EDT ,
--- NOTE | 2022-04-30 10:01 | PN.PCM_ITS ---
History of Present Illness Date of Service: 04/30/22 Chief Complaint: right ulcer to the bottom of the foot History of Wound: Patient is a 51-year-old male who presents to the wound care center for follow-up complicated right foot ulcers with history of Charcot and osteomyelitis history. He denies redness or odor, fever, chills, nausea or vomiting today. The onset of this recent plantar foot ulcer was July 25, 2021. He denies odor or redness. He reports continued drainage. He has been consistent with offloading with a knee roller. He reports significant reduction in overall activity this past week and missed a recent appointment. He denies redness or streaking to the leg. He denies odors. He also has lower extremity edema. He continues to wash and moisturize his limb each time he has a dressing change. Subjective Subjective Patient is a 51-year-old male with history of Charcot foot deformity of the right foot returns to the wound care center for f/u of plantar midfoot ulceration of the Right foot.? He was previously seen by Dr. John in the wound center but has not returned since February 2022 due to unwillingness to accept her medical recommendations.? He has been continuing to have visiting nursing pack his wound site with iodoform twice a week.? He is remaining nonweightbearing to the right lower extremity with use of a knee scooter.? He denies any constitutional symptoms today.? He has no further complaints today. Objective Data Objective Data Vital Signs: Vital Signs Temp Pulse Resp BP 97.6 F L 68 22 H 128/79 H 04/16/22 10:47 04/16/22 10:47 03/12/22 00:27 04/16/22 10:47 Body Mass Index (BMI) 47.7 Physical Exam Const alert, oriented x3, no apparent distress and well nourished General Appearance: cooperative HEENT normocephalic Eyes General Eye: normal appearance of both eyes Neck General: normal visual inspection Lymph Lymphatic: no lymphadenopathy noted and no lymphedema noted Resp normal respiratory effort Cardio regular rate and regular rhythm Extremity normal capillary refill, no joint enlargement, no calf tenderness and no pedal edema Extremity Narrative: No calf tenderness, no calor, negative Tammie and Andrade sign Diminished pulses Compartments remain soft to palpate right lower extremity Edema especially to right lower extremity.? No tenderness to palpation of joints or extremities; Negative for cyanosis. No gross laxity crepitus or pain with attempted passive manipulation of the midfoot at his prior Charcot site. Musculoskeletal: Muscle wasting noted Charcot foot with rocker-bottom deformity and partial fourth and fifth ray resection right.?Partial second toe amputation.?No new laxity of the midfoot noted Skin no rashes or lesions noted, skin turgor normal and no jaundice General Skin Exam: Negative for erythema Wound Narrative: Serosanguineous mild drainage noted from plantar foot. There is no malodor noted today. Ulceration does not probe to bone.?There is granulation tissue noted upon debridement.?No maceration.? No bogginess or fluctuance on palpation.? Neuro moves all extremities Neuro Narrative: Lack of normal epicritic sensation via light touch is consistent with neuropathy status Debridement Note Debridement Note Wound debrided: Plantar midfoot Laterality: Right Wound Grade/Stage: Sams stage II Type of Debridement: Excisional debridement Anesthesia Used: 5% Lidocaine Gel Depth: Down to and including healthy tissue and in the subcutaneous layer Percentage of wound debrided: 100 Instrument Used: 3mm curette Tissue Removed: Fibrous, devitalized subcutaneous, biofilm, slough Severity: Fat Layer Exposed Amount of bleeding with debridement: Mild Bleeding Controlled with: Compression and gauze Patient tolerated procedure: Patient tolerated procedure well Post-Debridement Measurements and Additional Note: Post-Debridement Measurements/Treatment - Nurse 1 - General Ulcer Assessment Start: 04/16/22 10:47 Freq: Status: Active Protocol: [email or web address].[email or web address] Activity Type Activity Date Activity User E-sign Co-sign Detail Recorded Client Recorded Date Recorded By Document 04/16/22 10:47 [id number] 04/16/22 10:49 TOÑA 04/16/22 10:47 - Today's Visit Information Type of service Follow-up Visit (Physician/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 Any new allergies or adverse reactions No Had a fall/change in ADL's that may No increase risk of falls Signs or symptoms of abuse and/or No neglect since last visit Have you been in the hospital since your No last visit? Has dressing in place as prescribed Yes Has compression in place as prescribed Yes Has offloadiing in place as prescribed N/A Experienced any changes in pain level or No management Left Footwear Regular Shoe Right Footwear Regular Shoe Pain Scale: 0-10 Numeric Is Patient Pain Free? Yes - Nurse 1 - General Ulcer Measurement Start: 04/16/22 10:47 Freq: Status: Active Protocol: Activity Type Activity Date Activity User E-sign Co-sign Detail Recorded Client Recorded Date Recorded By Document 04/16/22 10:47 KR [id number] 04/16/22 10:49 KR 04/16/22 10:47 Wound Center Nurse 1 #9 R Plantar -Current Size (cm) - Length 0.3 -Current Size (cm) - Width 0.4 -Current Size (cm) - Depth 0.1 -Total Square Cm 0.12 -Exudate Amt Small -Exudate Type Serosanguineous -Wound Margin Distinct, Outline Attached -Granulation Amt Small (1-33%) -Granulation Quality [place] -Necrosis Amt None Present (0 %) -Texture (Michelle-wound Skin Appearance) Assessed, Scarring -Moisture (Michelle-wound Skin Appearance) No Abnormality, Assessed -Color (Michelle-wound Skin Appearance) No Abnormality, Assessed -Temperature (Michelle-wound Skin No Abnormality Appearance) (Pt Warm) -Tenderness on Palpation (Michelle-wound No Skin Appearance) -Ulcer Cleansing Soap and Water -Foul Odor after Cleansing No -Anesthetic Used 5% Lidocaine Gel Right Calf (cm) 45 Right Ankle (cm) 28 - Nurse 2 - General Ulcer CM Notes Start: 04/16/22 10:47 Freq: Status: Active Protocol: Activity Type Activity Date Activity User E-sign Co-sign Detail Recorded Client Recorded Date Recorded By Document 04/16/22 12:46 PL [id number] 04/16/22 12:47 PL 04/16/22 12:46 Wound Center Nurse 2 #9 R Plantar -Time 11:48 -Correct Patient Yes -Correct Side, Site, Position Yes -Correct Procedure Yes -Procedure Performed Yes -Type of Procedure Debridement -Clinical Debridement Subcutaneous -Tissue Removed Subcutaneous -Post Debridement (cm) - Length 0.4 -Post Debridement (cm) - Width 0.5 -Post Debridement (cm) - Depth 0.2 -Total Square (Post) (cm) 0.20 -Area of Debridement (cm) - Length 0.4 -Area of Debridement (cm) - Width 0.5 -Total Square (Area) (cm) 0.20 -Tunneling No -Undermining/Tunneling No -Circular Undermining No -Wound/Ulcer Outcome Not Healed -Ulcer Cleansing Rinsed/ Irrigated with Saline -Foul Odor after Cleansing No -Bioengineered Tissue No -Bleeding Controlled with Pressure -Treatment Response Procedure Tolerated Well -Debridement - Subq, 1st 20sq cm Yes Pain Scale: 0-10 Numeric Is Patient Pain Free? Yes - Nurse 3 - General Ulcer D/C NN Start: 04/16/22 10:47 Freq: Status: Active Protocol: Activity Type Activity Date Activity User E-sign Co-sign Detail Recorded Client Recorded Date Recorded By Document 04/16/22 12:00 TOÑA [id number] 04/16/22 12:01 TOÑA 04/16/22 12:00 Wound Care Nurse 3 #9 R Plantar -Ulcer Cleansing Rinsed/ Irrigated with Saline -Primary Dressing Applied Nugauze, Iodoform -Primary Dressing Covered/Secured with Dry Gauze, Secured with Tape -Nugauze, Iodoform 1/4 1 Right -Multi-Layered Wrap Application Multi-Layer Comp - Right ($ ) Pain Scale: 0-10 Numeric Is Patient Pain Free? Yes - Visit Discharge Discharge Condition Stable Ambulatory Status Ambulatory Transportation Private Auto Assessment/Plan Assessment/Plan (1) Non-pressure chronic ulcer of other part of right foot with necrosis of muscle: CODE(S): L97.513 - Non-pressure chronic ulcer of other part of right foot with necrosis of muscle (2) Chronic venous insufficiency: CODE(S): I87.2 - Venous insufficiency (chronic) (peripheral) (3) Charcot's joint, right ankle and foot: CODE(S): M14.671 - Charcot's joint, right ankle and foot (4) Type 2 diabetes mellitus with diabetic polyneuropathy: CODE(S): E11.42 - Type 2 diabetes mellitus with diabetic polyneuropathy QUALIFIERS: Diabetes mellitus mcfp insulin use: unspecified mcfp insulin use status Qualified Code(s): E11.42 - Type 2 diabetes mellitus with diabetic polyneuropathy (5) Bilateral lower extremity edema: CODE(S): R60.0 - Localized edema (6) Ulcer of right foot with necrosis of muscle: CODE(S): L97.513 - Non-pressure chronic ulcer of other part of right foot with necrosis of muscle PLAN: Plan Patient seen and examined. Debridement was performed as noted in the clinical panel. Ulceration measures 0.8 cm x 0.6 cm x 0.2 cm post-debridement. Ulceration does not probe to bone. No signs of infection. Dressings: Iodoform gauze packing and gauze every 1 to 2 days with help of home health. Continues to defer total contact cast due to concern of adequate transportation to remove this on time. Infection: He does have a history of recurrent ulcers with infections and even osteomyelitis.? He was previously seen by infectious disease.? There are no local or systemic signs of illness today.? He is to monitor for development of signs of infection and to call immediately if these are noted or report to the ED. Diagnostic data: I recommend updating his labs including CBC, CMP, ESR, C- reactive protein. Labs from 10/06/21 with wbc 8.4, esr 66, crp, 31.60, est gfr 97.?He obtained three foot xrays on 10/06/21 which was stable without acute findi ngs. No soft tissue emphysema, foreign body, fractures noted. There is charcot midfoot with dislocations and coalesced fragmentation. Updated Radiographs performed 04/24/2022 and demonstrate findings consistent with a Charcot joint of the midfoot involving the tarsal bones more so laterally with bony osteopenia seen in the region. No soft tissue emphysema, foreign body, or fractures noted. Charcot midfoot with dislocations and coalesced fragmentation remained stable. Offloading:? Patient to remain nonweightbearing to the right lower extremity. Use wheelchair or knee walker / roller.? He currently utilizes knee scooter for offloading. Patient is noted to also have gotten an electric scooter in order to offload his foot.? ? I again discussed with him today that he is at risk for further amputation of foot or leg. He has a [employer] walker ready at [facility] once healed. He states he has tried to call [facility] to brain picker his [place] walker so it is ready for him to use once his ulceration has healed, however he has not been able to speak with anyone there. Edema: To elevate limb at rest, reduce salt in diet, and perform muscular routine contraction of the lower extremity.?Recommend 3M2L dressing application. I agree with previous recommendations by Dr. John to see him in a graduated edema management compression garment such as a [place] wrap.? He currently has an open wound to lower extremity and is at risk for limb loss continued infection and surgical intervention. To continue lotion application, avoiding the uclerative site. I recommend continued [place] for nutritional supplementation to optimize healing. He has overall lack of healing with reoccurrence of ulcer depth to midfoot joint due to chronic infections and charcot. I have discussed with him today that I am in agreement with previous medical recommendations by Dr. John in that more aggressive options may be reqiured to aid in healing or prevent continued infection including continued wound care vs ulcer tract excision with rotational closure vs charcot reconstruction vs below knee amputation.?Benefits and risks of each option were reviewed today. He still does not want to proceed with any procedure at this time. All questions answered. ? To follow-up 2 weeks. Note: [email or web address] speech recognition safety relief valve technician software was used to create portions of this document. Sound-alike and misspelled words, as well as other safety relief valve technician errors may be contained in the documentation. The problems addressed require a moderate decision making level which? includes one or more chronic illnesses (w/ exacerbation, progression, or side effects), two or more stable chronic illnesses, one undiagnosed new problem w/ uncertain prognosis, one acute illness with systemic symptoms, or one acute complicated injury.
[2022-04-30 12:15] VITALS: BP 153/59; PULSE 88; TEMP 35.7; BMI 47.7
== END 2022-05-11 23:59 | disposition home or self-care (01) ==
LOC: WC 10:00
PROVIDERS: PCP Internal Medicine; Referring Provider Podiatrist Foot & Ankle Surgery; Visit Provider Student in an Organized Health Care Education/Training Program
DX: E11.621 Type 2 diabetes mellitus with foot ulcer (principal); L97.513 Non-pressure chronic ulcer of other part of right foot with necrosis of muscle; E11.59 Type 2 diabetes mellitus with other circulatory complications; E11.610 Type 2 diabetes mellitus with diabetic neuropathic arthropathy; E11.42 Type 2 diabetes mellitus with diabetic polyneuropathy; Z79.4 Long term (current) use of insulin; I87.2 Venous insufficiency (chronic) (peripheral); R60.0 Localized edema
CPT/HCPCS: 11042; 29581; 73630; 99213; G0463

== ENCOUNTER 2022-05-21 10:39 | Outpatient (RCR) | payer MEDICAID, SELFPAY ==
[2022-05-12 00:07] VITALS: BP 153/59; PULSE 88; RESP 22; TEMP 35.7; BMI 47.7
[2022-05-21 11:13] VITALS: BP 165/104; PULSE 101; TEMP 37; BMI 47.7
--- NOTE | 2022-05-21 12:18 | PN.PCM_ITS ---
History of Present Illness Date of Service: 05/21/22 Chief Complaint: right ulcer to the bottom of the foot History of Wound: Patient is a 51-year-old male who presents to the wound care center for follow-up complicated right foot ulcers with history of Charcot and osteomyelitis history. He denies redness or odor, fever, chills, nausea or vomiting today. The onset of this recent plantar foot ulcer was July 25, 2021. He denies odor or redness. He reports continued drainage. He has been consistent with offloading with a knee roller. He reports significant reduction in overall activity this past week and missed a recent appointment. He denies redness or streaking to the leg. He denies odors. He also has lower extremity edema. He continues to wash and moisturize his limb each time he has a dressing change. Subjective Subjective Patient is a 51-year-old male with history of Charcot foot deformity of the right foot returns to the wound care center for f/u of plantar midfoot ulceration of the Right foot.?He has been continuing to have visiting nursing pack his wound site with iodoform twice a week.? He is remaining nonweightbearing to the right lower extremity with use of a knee scooter.? He denies any constitutional symptoms today.? He has no further complaints today. Objective Data Objective Data Vital Signs: Vital Signs Temp Pulse Resp BP 98.6 F 101 H 22 H 165/104 H 05/21/22 11:13 05/21/22 11:13 05/12/22 00:07 05/21/22 11:13 Body Mass Index (BMI) 47.7 Physical Exam Const alert, oriented x3 and no apparent distress General Appearance: cooperative HEENT normocephalic Eyes General Eye: normal appearance of both eyes Neck General: normal visual inspection Lymph Lymphatic: no lymphadenopathy noted and no lymphedema noted Resp normal respiratory effort Cardio regular rate and regular rhythm Extremity normal capillary refill, no joint enlargement, no calf tenderness and no pedal edema Extremity Narrative: No calf tenderness, no calor, negative Tammie and Andrade sign Diminished pulses Compartments remain soft to palpate right lower extremity Edema especially to right lower extremity.? No tenderness to palpation of joints or extremities; Negative for cyanosis. No gross laxity crepitus or pain with attempted passive manipulation of the midfoot at his prior Charcot site. Musculoskeletal: Muscle wasting noted Charcot foot with rocker-bottom deformity and partial fourth and fifth ray resection right.?Partial second toe amputation.?No new laxity of the midfoot noted Skin no rashes or lesions noted, skin turgor normal and no jaundice General Skin Exam: Negative for erythema Wound Narrative: Serosanguineous mild drainage noted from plantar foot. There is no malodor noted today. Ulceration does not probe to bone.?There is granulation tissue noted upon debridement.?No maceration.? No bogginess or fluctuance on palpation.? Neuro moves all extremities Neuro Narrative: Lack of normal epicritic sensation via light touch is consistent with neuropathy status Debridement Note Debridement Note Wound debrided: Plantar midfoot Laterality: Right Wound Grade/Stage: Sams stage II Type of Debridement: Excisional debridement Anesthesia Used: 5% Lidocaine Gel Depth: Down to and including healthy tissue and in the subcutaneous layer Percentage of wound debrided: 100 Instrument Used: 3mm curette Tissue Removed: Fibrous, devitalized subcutaneous, biofilm, slough Severity: Fat Layer Exposed Amount of bleeding with debridement: Mild Bleeding Controlled with: Compression and gauze Patient tolerated procedure: Patient tolerated procedure well Post-Debridement Measurements and Additional Note: Post-Debridement Measurements/Treatment WC - Nurse 1 - General Ulcer Assessment Start: 05/21/22 11:13 Freq: Status: Active Protocol: NIGEL Activity Type Activity Date Activity User E-sign Co-sign Detail Recorded Client Recorded Date Recorded By Document 05/21/22 11:13 TOÑA [id number] 05/21/22 11:17 TOÑA 05/21/22 11:13 - Today's Visit Information Type of service Follow-up Visit (Physician/EXCELLENCE CONSULTANT ) Arrival Mode Ambulatory Patient Identification Verified (Name & Yes ) Height and Weight Body Mass Index (BMI) 47.7 BMI Classification Obese Vital Signs Temperature (97.8 F-99.1 F) 98.6 F Temperature Source Temporal Pulse Rate (60-100) 101 H Pulse Location Monitor Blood Pressure (90/60-120/80) 165/104 H Blood Pressure Mean (mm Hg) 124 Source Monitor Position Sitting Blood Pressure Location Left Arm History Since Last Visit- (Skip if this is Patient's initial visit) Have you changed medications since your No last visit? Any new allergies or adverse reactions No Had a fall/change in ADL's that may No increase risk of falls Signs or symptoms of abuse and/or No neglect since last visit Have you been in the hospital since your No last visit? Has dressing in place as prescribed Yes Has compression in place as prescribed Yes Has offloadiing in place as prescribed N/A Experienced any changes in pain level or No management Left Footwear Regular Shoe Right Footwear Regular Shoe Pain Scale: 0-10 Numeric Is Patient Pain Free? Yes WC - Nurse 1 - General Ulcer Measurement Start: 05/21/22 11:13 Freq: Status: Active Protocol: Activity Type Activity Date Activity User E-sign Co-sign Detail Recorded Client Recorded Date Recorded By Document 05/21/22 11:13 TOÑA [id number] 05/21/22 11:17 TOÑA 05/21/22 11:13 Wound Center Nurse 1 #9 R Plantar -Current Size (cm) - Length 0.8 -Current Size (cm) - Width 0.5 -Current Size (cm) - Depth 0.5 -Total Square Cm 0.40 -Exudate Amt Medium -Exudate Type Serosanguineous -Wound Margin Distinct, Outline Attached -Granulation Amt Medium (34-66%) -Granulation Quality [place] -Necrosis Amt Small (1-33%) -Necrotic Tissue Type Adherent Slough -Texture (Michelle-wound Skin Appearance) Assessed, Scarring -Moisture (Michelle-wound Skin Appearance) No Abnormality, Assessed -Color (Michelle-wound Skin Appearance) No Abnormality, Assessed -Temperature (Michelle-wound Skin No Abnormality Appearance) (Pt Warm) -Tenderness on Palpation (Michelle-wound No Skin Appearance) -Ulcer Cleansing Rinsed/ Irrigated with Saline -Foul Odor after Cleansing No -Anesthetic Used 5% Lidocaine Gel Assessment/Plan Assessment/Plan (1) Non-pressure chronic ulcer of other part of right foot with necrosis of muscle: CODE(S): L97.513 - Non-pressure chronic ulcer of other part of right foot with necrosis of muscle (2) Chronic venous insufficiency: CODE(S): I87.2 - Venous insufficiency (chronic) (peripheral) (3) Charcot's joint, right ankle and foot: CODE(S): M14.671 - Charcot's joint, right ankle and foot (4) Type 2 diabetes mellitus with diabetic polyneuropathy: CODE(S): E11.42 - Type 2 diabetes mellitus with diabetic polyneuropathy QUALIFIERS: Diabetes mellitus chcf insulin use: unspecified termite exterminator insulin use status Qualified Code(s): E11.42 - Type 2 diabetes mellitus with diabetic polyneuropathy (5) Bilateral lower extremity edema: CODE(S): R60.0 - Localized edema PLAN: Plan Patient seen and examined. Debridement was performed as noted in the clinical panel.? Ulceration measures 0.5 cm x 0.6 cm x 0.2 cm post-debridement.? Ulceration does not probe to bone.? No signs of infection. Dressings: Iodoform gauze packing and gauze every 1 to 2 days with help of home health.?Continues to defer total contact cast due to concern of adequate transportation to remove this on time. Infection: He does have a history of recurrent ulcers with infections and even osteomyelitis.? He was previously seen by infectious disease.? There are no local or systemic signs of illness today.? He is to monitor for development of signs of infection and to call immediately if these are noted or report to the ED. Diagnostic data: I recommend updating his labs including CBC, CMP, ESR, C- reactive protein. Labs from 10/06/21 with wbc 8.4, esr 66, crp, 31.60, est gfr 97.?He obtained three foot xrays on 10/06/21 which was stable without acute findings. No soft tissue emphysema, foreign body, fractures noted. There is charcot midfoot with dislocations and coalesced fragmentation. Updated Radiographs performed 04/24/2022 and demonstrate findings consistent with a Charcot joint of the midfoot involving the tarsal bones more so laterally with bony osteopenia seen in the region.? No soft tissue emphysema, foreign body, or fractures noted.? Charcot midfoot with dislocations and coalesced fragmentation remained stable. Offloading:? Patient to remain nonweightbearing to the right lower extremity. To use wheelchair or knee walker / roller.? He currently utilizes knee scooter for offloading. Patient is noted to also have gotten an electric scooter in order to offload his foot.? ? I again discussed with him today that he is at risk for further amputation of foot or leg. He has a [place] walker ready at [facility] once healed. He states he has called [facility] to product picker his [place] walker however they have informed him they have no [place] walker ready or prescription on file. I will plan to write new prescription so he may be fitted for [place] walker to aid in offloading of his Right lower extremity. Edema: To elevate limb at rest, reduce salt in diet, and perform muscular routine contraction of the lower extremity.?Recommend 3M2L dressing application. I agree with previous recommendations by Dr. John to see him in a graduated edema management compression garment such as a Farrow wrap.? He currently has an open wound to lower extremity and is at risk for limb loss continued infection and surgical intervention. To continue lotion application, avoiding the ulcerative site. I recommend continued Glen for nutritional supplementation to optimize healing. He has overall lack of healing with reoccurrence of ulcer depth to midfoot joint due to chronic infections and Charcot. I have discussed with him today that I am in agreement with previous medical recommendations by Dr. John in that more aggressive options may be required to aid in healing or prevent continued infection including continued wound care vs ulcer tract excision with rotational closure vs Charcot reconstruction vs below knee amputation.?Benefits and risks of each option were reviewed today. He still does not want to proceed with any procedure at this time. All questions answered. ? To follow-up 3 weeks. Home health to see him 3 days a week. Note: [employer] speech recognition marine insulator software was used to create portions of this document. Sound-alike and misspelled words, as well as other marine insulator errors may be contained in the documentation.
== END 2022-06-10 23:59 | disposition home or self-care (01) ==
LOC: WC 10:39
PROVIDERS: PCP Internal Medicine; Referring Provider Podiatrist Foot & Ankle Surgery; Visit Provider Student in an Organized Health Care Education/Training Program
DX: E11.621 Type 2 diabetes mellitus with foot ulcer (principal); L97.513 Non-pressure chronic ulcer of other part of right foot with necrosis of muscle; E11.610 Type 2 diabetes mellitus with diabetic neuropathic arthropathy; E11.59 Type 2 diabetes mellitus with other circulatory complications; E11.42 Type 2 diabetes mellitus with diabetic polyneuropathy; Z79.4 Long term (current) use of insulin; I87.2 Venous insufficiency (chronic) (peripheral); R60.0 Localized edema
CPT/HCPCS: 11042; 29581

== ENCOUNTER 2022-06-18 10:52 | Outpatient (RCR) | payer MEDICAID, SELFPAY ==
[2022-06-11 00:10] VITALS: BP 165/104; PULSE 101; RESP 22; TEMP 37; BMI 47.7
[2022-06-18 10:59] VITALS: BP 163/95; PULSE 104; RESP 16; TEMP 35.8; BMI 47.7
--- NOTE | 2022-06-18 11:07 | PCM.WC.PN ---
History of Present Illness Date of Service: 06/18/22 Chief Complaint: right ulcer to the bottom of the foot History of Wound: Patient is a 51-year-old male who presents to the wound care center for follow-up complicated right foot ulcers with history of Charcot and osteomyelitis history. He denies redness or odor, fever, chills, nausea or vomiting today. The onset of this recent plantar foot ulcer was July 25, 2021. He denies odor or redness. He reports continued drainage. He has been consistent with offloading with a knee roller. He reports significant reduction in overall activity this past week and missed a recent appointment. He denies redness or streaking to the leg. He denies odors. He also has lower extremity edema. He continues to wash and moisturize his limb each time he has a dressing change. Subjective Subjective Patient is a 52-year-old male with history of Charcot foot deformity of the right foot returns to the wound care center for f/u of plantar midfoot ulceration of the Right foot.?He has been continuing to have visiting nursing pack his wound site with iodoform twice a week.? He does state that it has continued to drain with strikethrough to the dressing. He is remaining nonweightbearing to the right lower extremity with use of a knee scooter.? He denies any constitutional symptoms today.? He has no further complaints today. Objective Data Objective Data Vital Signs: Vital Signs Temp Pulse Resp BP O2 Del Method 96.5 F L 104 H 16 163/95 H Room Air 06/18/22 10:59 06/18/22 10:59 06/18/22 10:59 06/18/22 10:59 06/18/22 10:59 Oxygen Delivery Method Room Air Body Mass Index (BMI) 47.7 Physical Exam Const alert, oriented x3, no apparent distress and well nourished General Appearance: cooperative HEENT normocephalic Eyes General Eye: normal appearance of both eyes Neck General: normal visual inspection Lymph Lymphatic: no lymphadenopathy noted and no lymphedema noted Resp normal respiratory effort Cardio regular rate and regular rhythm Extremity normal capillary refill, no joint enlargement, no calf tenderness and no pedal edema Extremity Narrative: No calf tenderness, no calor, negative Tammie and Andrade sign Diminished pulses Compartments remain soft to palpate right lower extremity Edema especially to right lower extremity.? No tenderness to palpation of joints or extremities; Negative for cyanosis. No gross laxity crepitus or pain with attempted passive manipulation of the midfoot at his prior Charcot site. Musculoskeletal: Muscle wasting noted Charcot foot with rocker-bottom deformity and partial fourth and fifth ray resection right.?Partial second toe amputation.?No new laxity of the midfoot noted Skin no rashes or lesions noted, skin turgor normal and no jaundice General Skin Exam: Negative for erythema Wound Narrative: Serosanguineous mild drainage noted from plantar foot. There is no malodor noted today. Ulceration does not probe to bone.?There is granulation tissue noted upon debridement.? There is maceration about the wound margin.? No bogginess or fluctuance on palpation.? Neuro moves all extremities Neuro Narrative: Lack of normal epicritic sensation via light touch is consistent with neuropathy status Debridement Note Debridement Note Wound debrided: Plantar midfoot Laterality: Right Wound Grade/Stage: Sams stage II Type of Debridement: Excisional debridement Anesthesia Used: 5% Lidocaine Gel Depth: Down to and including healthy tissue and in the subcutaneous layer Percentage of wound debrided: 100 Instrument Used: #15 blade Tissue Removed: Fibrous, devitalized subcutaneous, biofilm, slough Severity: Fat Layer Exposed Amount of bleeding with debridement: Mild Bleeding Controlled with: Compression and gauze Patient tolerated procedure: Patient tolerated procedure well Post-Debridement Measurements and Additional Note: Post-Debridement Measurements/Treatment - Nurse 1 - General Ulcer Assessment Start: 06/18/22 10:57 Freq: Status: Active Protocol: .VOLODYMYR Activity Type Activity Date Activity User E-sign Co-sign Detail Recorded Client Recorded Date Recorded By Document 06/18/22 10:59 [facility] [id number] 06/18/22 11:06 [facility] 06/18/22 10:59 - Today's Visit Information Type of service Follow-up Visit (Physician/WINDOW/DISTRIBUTION CLERK ) Arrival Mode Ambulatory, Walker Arrival Mode (Other) KNEE WALKER Transfer Assistance None Patient Identification Verified (Name & Yes ) Patient Requires Transmission-Based No Precautions Height and Weight Body Mass Index (BMI) 47.7 BMI Classification Obese Vital Signs Temperature (97.8 F-99.1 F) 96.5 F L Temperature Source Temporal Pulse Rate (60-100) 104 H Pulse Location Monitor Respiratory Rate (12-18) 16 Respiratory rate source Observation Oxygen Delivery Method Room Air Blood Pressure (90/60-120/80) 163/95 H Blood Pressure Mean (mm Hg) 117 Source Monitor Position Sitting Blood Pressure Location Right Forearm History Since Last Visit- (Skip if this is Patient's initial visit) Have you changed medications since your No last visit? Any new allergies or adverse reactions No Had a fall/change in ADL's that may No increase risk of falls Signs or symptoms of abuse and/or No neglect since last visit Have you been in the hospital since your No last visit? Has dressing in place as prescribed Yes Has compression in place as prescribed Yes Has offloadiing in place as prescribed Yes Experienced any changes in pain level or No management Left Footwear Diabetic Shoe Other Footwear NO SHOE TO L FOOT, 3M WRAP AND STOCKING ONLY Pain Scale: 0-10 Numeric Is Patient Pain Free? Yes WC - Nurse 1 - General Ulcer Measurement Start: 06/18/22 10:57 Freq: Status: Active Protocol: Activity Type Activity Date Activity User E-sign Co-sign Detail Recorded Client Recorded Date Recorded By Document 06/18/22 10:59 [facility] [id number] 06/18/22 11:06 [facility] 06/18/22 10:59 Wound Center Nurse 1 #9 R Plantar -Combined with other wound No -Current Size (cm) - Length 0.1 -Current Size (cm) - Width 0.1 -Current Size (cm) - Depth 0.3 -Total Square Cm 0.01 -Date of Last Picture (Recall this 06/18/22 field) -Photo Taken Yes -Epithelialization None Present -Tunneling No -Undermining/Tunneling No -Circular Undermining No -Exudate Amt Medium -Exudate Type Serosanguineous -Wound Margin Distinct, Outline Attached -Granulation Amt Small (1-33%) -Granulation Quality [place] -Slough/Fibrin No -Necrosis Amt None Present (0 %) -Texture (Michelle-wound Skin Appearance) Callus -Moisture (Michelle-wound Skin Appearance) Assessed, Maceration -Color (Michelle-wound Skin Appearance) Assessed,Palor -Temperature (Michelle-wound Skin No Abnormality Appearance) (Pt Warm) -Tenderness on Palpation (Michelle-wound No Skin Appearance) -Ulcer Cleansing Soap and Water -Foul Odor after Cleansing No -Anesthetic Used 5% Lidocaine Gel Lower Limb Edema Present Yes Right Calf (cm) 45 Right Ankle (cm) 28.7 Assessment/Plan Assessment/Plan (1) Non-pressure chronic ulcer of other part of right foot with necrosis of muscle: CODE(S): L97.513 - Non-pressure chronic ulcer of other part of right foot with necrosis of muscle (2) Chronic venous insufficiency: CODE(S): I87.2 - Venous insufficiency (chronic) (peripheral) (3) Charcot's joint, right ankle and foot: CODE(S): M14.671 - Charcot's joint, right ankle and foot (4) Type 2 diabetes mellitus with diabetic polyneuropathy: CODE(S): E11.42 - Type 2 diabetes mellitus with diabetic polyneuropathy QUALIFIERS: Diabetes mellitus intermediate insulin use: unspecified intermediate insulin use status Qualified Code(s): E11.42 - Type 2 diabetes mellitus with diabetic polyneuropathy (5) Bilateral lower extremity edema: CODE(S): R60.0 - Localized edema PLAN: Plan Patient seen and examined. Debridement was performed as noted in the clinical panel.? Ulceration measures 0.5 cm x 0.5 cm x 0.1 cm post-debridement.? Ulceration does not probe to bone.? No signs of infection. Dressings: Kesha, Aquacel Ag and gauze every 1 to 2 days with help of home health.?Continues to defer total contact cast due to concern of adequate transportation to remove this on time. Infection: He does have a history of recurrent ulcers with infections and even osteomyelitis.? He was previously seen by infectious disease.? There are no local or systemic signs of illness today.? He is to monitor for development of signs of infection and to call immediately if these are noted or report to the ED. Diagnostic data: I recommend updating his labs including CBC, CMP, ESR, C-reactive protein. Labs from 10/06/21 with wbc 8.4, esr 66, crp, 31.60, est gfr 97.?He obtained three foot xrays on 10/06/21 which was stable without acute findings. No soft tissue emphysema, foreign body, fractures noted. There is charcot midfoot with dislocations and coalesced fragmentation. Updated Radiographs performed 04/24/2022 and demonstrate findings consistent with a Charcot joint of the midfoot involving the tarsal bones more so laterally with bony osteopenia seen in the region.? No soft tissue emphysema, foreign body, or fractures noted.? Charcot midfoot with dislocations and coalesced fragmentation remained stable. Offloading:? Patient to remain nonweightbearing to the right lower extremity. To use wheelchair or knee walker / roller.? He currently utilizes knee scooter for offloading. Patient is noted to also have gotten an electric scooter in order to offload his foot.? Rx for [place] walker dispensed today for [facility]. Patient will take this to [facility] to be fitted for a [place] boot to offload his Charcot midfoot. ? I again discussed with him today that he is at risk for further amputation of foot or leg. [place] walker to be fitted at [facility] once healed. Edema: To elevate limb at rest, reduce salt in diet, and perform muscular routine contraction of the lower extremity.?Recommend Suprasorb dressing application. I agree with previous recommendations by Dr. John to see him in a graduated edema management compression garment such as a Farrow wrap.? He currently has an open wound to lower extremity and is at risk for limb loss continued infection and surgical intervention. To continue lotion application, avoiding the ulcerative site. I recommend continued Glen for nutritional supplementation to optimize healing. He has overall lack of healing with reoccurrence of ulcer depth to midfoot joint due to chronic infections and Charcot. I have discussed with him that I am in agreement with previous medical recommendations by Dr. John in that more aggressive options may be required to aid in healing or prevent continued infection including continued wound care vs ulcer tract excision with rotational closure vs Charcot reconstruction vs below knee amputation.?Benefits and risks of each option were reviewed today. He still does not want to proceed with any procedure at this time. All questions answered. ? To follow-up 3 weeks. Home health to see him 3 days a week. Note: [employer] speech recognition tank assembler software was used to create portions of this document. Sound-alike and misspelled words, as well as other tank assembler errors may be contained in the documentation.
== END 2022-07-11 23:59 | disposition home or self-care (01) ==
LOC: WC 10:52
PROVIDERS: PCP Internal Medicine; Referring Provider Podiatrist Foot & Ankle Surgery; Visit Provider Student in an Organized Health Care Education/Training Program
DX: E11.621 Type 2 diabetes mellitus with foot ulcer (principal); L97.513 Non-pressure chronic ulcer of other part of right foot with necrosis of muscle; E11.610 Type 2 diabetes mellitus with diabetic neuropathic arthropathy; E11.42 Type 2 diabetes mellitus with diabetic polyneuropathy; E11.59 Type 2 diabetes mellitus with other circulatory complications; Z79.4 Long term (current) use of insulin; I87.2 Venous insufficiency (chronic) (peripheral); R60.0 Localized edema
CPT/HCPCS: 11042; 29581

== ENCOUNTER 2022-07-16 10:30 | Outpatient (RCR) | payer MEDICAID, SELFPAY ==
[2022-07-12 00:11] VITALS: BP 163/95; PULSE 104; RESP 16; TEMP 35.8; BMI 47.7
--- NOTE | 2022-07-16 10:34 | PN.PCM_ITS ---
History of Present Illness Date of Service: 07/16/22 Chief Complaint: right ulcer to the bottom of the foot History of Wound: Patient is a 51-year-old male who presents to the wound care center for follow-up complicated right foot ulcers with history of Charcot and osteomyelitis history. He denies redness or odor, fever, chills, nausea or vomiting today. The onset of this recent plantar foot ulcer was July 25, 2021. He denies odor or redness. He reports continued drainage. He has been consistent with offloading with a knee roller. He reports significant reduction in overall activity this past week and missed a recent appointment. He denies redness or streaking to the leg. He denies odors. He also has lower extremity edema. He continues to wash and moisturize his limb each time he has a dressing change. Subjective Subjective Patient is a 52-year-old male with history of Charcot foot deformity of the right foot returns to the wound care center for f/u of plantar midfoot ulceration of the Right foot.?He has been continuing to have visiting nursing pack his wound site with iodoform twice a week.?He does state that it has continued to drain with strikethrough to the dressing.? He is remaining nonweightbearing to the right lower extremity with use of a knee scooter.? He denies any constitutional symptoms today.? He has no further complaints today. Objective Data Objective Data Vital Signs: Vital Signs Temp Pulse Resp BP 96.5 F L 104 H 16 163/95 H 07/12/22 00:11 07/12/22 00:11 07/12/22 00:11 07/12/22 00:11 Body Mass Index (BMI) 47.7 Physical Exam Const alert, oriented x3, no apparent distress and well nourished General Appearance: cooperative HEENT normocephalic Eyes General Eye: normal appearance of both eyes Neck General: normal visual inspection Lymph Lymphatic: no lymphadenopathy noted and no lymphedema noted Resp normal respiratory effort Cardio regular rate and regular rhythm Extremity normal capillary refill, no joint enlargement, no calf tenderness and no pedal edema Extremity Narrative: No calf tenderness, no calor, negative Tammie and Andrade sign Diminished pulses Compartments remain soft to palpate right lower extremity Edema especially to right lower extremity.? No tenderness to palpation of joints or extremities; Negative for cyanosis. No gross laxity crepitus or pain with attempted passive manipulation of the midfoot at his prior Charcot site. Musculoskeletal: Muscle wasting noted Charcot foot with rocker-bottom deformity and partial fourth and fifth ray resection right.?Partial second toe amputation.?No new laxity of the midfoot noted Skin no rashes or lesions noted, skin turgor normal and no jaundice General Skin Exam: Negative for erythema Wound Narrative: Serosanguineous mild drainage noted from plantar foot. There is no malodor noted today. Ulceration does not probe to bone.?There is granulation tissue noted upon debridement.? There is maceration about the wound margin.? No bogginess or fluctuance on palpation.? Neuro moves all extremities Neuro Narrative: Lack of normal epicritic sensation via light touch is consistent with neuropathy status Debridement Note Debridement Note Wound debrided: Plantar right foot Laterality: Right Wound Grade/Stage: Sams stage II Type of Debridement: Excisional debridement Anesthesia Used: 5% Lidocaine Gel Depth: Down to and including healthy tissue and in the subcutaneous layer Percentage of wound debrided: 100 Instrument Used: 3mm curette Tissue Removed: Fibrous, devitalized subcutaneous, biofilm, slough Severity: Fat Layer Exposed Amount of bleeding with debridement: Mild Bleeding Controlled with: Compression and gauze Patient tolerated procedure: Patient tolerated procedure well Assessment/Plan Assessment/Plan (1) Non-pressure chronic ulcer of other part of right foot with necrosis of muscle: CODE(S): L97.513 - Non-pressure chronic ulcer of other part of right foot with necrosis of muscle (2) Chronic venous insufficiency: CODE(S): I87.2 - Venous insufficiency (chronic) (peripheral) (3) Charcot's joint, right ankle and foot: CODE(S): M14.671 - Charcot's joint, right ankle and foot (4) Type 2 diabetes mellitus with diabetic polyneuropathy: CODE(S): E11.42 - Type 2 diabetes mellitus with diabetic polyneuropathy QUALIFIERS: Diabetes mellitus rat exterminator insulin use: unspecified shelter insulin use status Qualified Code(s): E11.42 - Type 2 diabetes mellitus with diabetic polyneuropathy (5) Bilateral lower extremity edema: CODE(S): R60.0 - Localized edema (6) Ulcer of right foot with necrosis of muscle: CODE(S): L97.513 - Non-pressure chronic ulcer of other part of right foot with necrosis of muscle (7) Tobacco abuse counseling: CODE(S): Z71.6 - Tobacco abuse counseling PLAN: Plan Patient seen and examined. Debridement was performed as noted in the clinical panel.? Ulceration measures 0.4 cm x 0.3 cm x 3.0 cm post-debridement.? Ulceration does not probe to bone.? No signs of infection. Dressings: Kesha, Aquacel Ag and gauze every 1 to 2 days with help of home health.?Continues to defer total contact cast due to concern of adequate transportation to remove this on time. Infection: He does have a history of recurrent ulcers with infections and even osteomyelitis.? He was previously seen by infectious disease.? There are no local or systemic signs of illness today.? He is to monitor for development of signs of infection and to call immediately if these are noted or report to the ED. Diagnostic data: I again recommend updating his labs including CBC, CMP, ESR, C- reactive protein. Labs from 10/06/21 with wbc 8.4, esr 66, crp, 31.60, est gfr 97.?He obtained three foot xrays on 10/06/21 which was stable without acute findings. No soft tissue emphysema, foreign body, fractures noted. There is charcot midfoot with dislocations and coalesced fragmentation. Updated Radiographs performed 04/24/2022 and demonstrate findings consistent with a Charcot joint of the midfoot involving the tarsal bones more so laterally with bony osteopenia seen in the region.? No soft tissue emphysema, foreign body, or fractures noted.? Charcot midfoot with dislocations and coalesced fragmentation remained stable. Offloading:? Patient to remain nonweightbearing to the right lower extremity. To use wheelchair or knee walker / roller.? He currently utilizes knee scooter for offloading. Patient is noted to also have gotten an electric scooter in order to offload his foot.?Patient will go to [facility] to be fitted for a [place] boot to offload his Charcot midfoot next week. ? I again discussed with him today that he is at risk for further amputation of foot or leg. [place] walker to be fitted [facility] and once ready he will begin wearing. Edema: To elevate limb at rest, reduce salt in diet, and perform muscular routine contraction of the lower extremity.?Recommend Suprasorb dressing application. I agree with previous recommendations by Dr. John to see him in a graduated edema management compression garment such as a [place] wrap.? He currently has an open wound to lower extremity and is at risk for limb loss continued infection and surgical intervention. To continue lotion application, avoiding the ulcerative site. I recommend continued [place] for nutritional supplementation to optimize healing. He has overall lack of healing with reoccurrence of ulcer depth to midfoot joint due to chronic infections and Charcot. I have discussed with him that I am in agreement with previous medical recommendations by Dr. John in that more aggressive options may be required to aid in healing or prevent continued infection including continued wound care vs ulcer tract excision with rotational closure vs Charcot reconstruction vs below knee amputation.?Benefits and risks of each option were reviewed today. He still does not want to proceed with any procedure at this time. All questions answered. ? To follow-up 3 weeks. Home health to see him 3 days a week. Note: Dattch speech recognition sound technician software was used to create portions of this document. Sound-alike and misspelled words, as well as other sound technician errors may be contained in the documentation.
[2022-07-16 10:38] VITALS: BP 150/90; PULSE 115; TEMP 36.6; BMI 47.7
== END 2022-08-11 23:59 | disposition home or self-care (01) ==
LOC: WC 10:30
PROVIDERS: PCP Internal Medicine; Referring Provider Podiatrist Foot & Ankle Surgery; Visit Provider Student in an Organized Health Care Education/Training Program
DX: E11.621 Type 2 diabetes mellitus with foot ulcer (principal); L97.513 Non-pressure chronic ulcer of other part of right foot with necrosis of muscle; E11.42 Type 2 diabetes mellitus with diabetic polyneuropathy; E11.610 Type 2 diabetes mellitus with diabetic neuropathic arthropathy; E11.59 Type 2 diabetes mellitus with other circulatory complications; Z79.4 Long term (current) use of insulin; R60.0 Localized edema; I87.2 Venous insufficiency (chronic) (peripheral); Z71.6 Tobacco abuse counseling
CPT/HCPCS: 11042; 29581

== ENCOUNTER 2022-07-20 12:53 | Inpatient (IN) | payer MEDICAID, SELFPAY ==
[2022-07-20] VITALS (10 sets, daily range): BP systolic 92–160; BP diastolic 52–111; PULSE 108–137; RESP 26–52; TEMP 36.4–37.1; O2SAT 90–100; BMI 49.6; BMI 53.7
--- NOTE | 2022-07-20 13:34 | EDS_ITS ---
HPI History of Present Illness Chief Complaint: Shortness of Breath Narrative Narrative: 52-year-old male here for shortness of breath patient has 2 days of increased shortness of breath. The patient denies recent surgery in the last 4 weeks or immobilization in the last 3 days, denies previous diagnosis of DVT (DVT listed in chart however patient vehemently denies having DVT) or PE, hemoptysis, unilateral leg swelling or malignancy with treatment the last 6 months. No estrogen use noted. [facility] Medical History Amputation of toe of left foot Cellulitis Charcot arthropathy of midfoot Chronic venous insufficiency DVT (deep venous thrombosis) History of esophageal disorder Hypertension KRYSTAL (obstructive sleep apnea) Osteoarthritis Tobacco abuse counseling Type 2 diabetes mellitus Venous insufficiency Home Medications acetaminophen 325 mg tablet 650 mg PO Q6H PRN PRN Pain Score 1-10/Temp > 100.7 F 07/23/20 [Rx Last Taken Unknown] Handicap Placard #1 ea 12/05/20 [Rx Last Taken Unknown] albuterol sulfate 90 mcg/actuation aerosol inhaler 1 - 2 puff inhalation Q6H PRN shortness of breath or wheezing #8.5 grams 04/28/22 [Rx Last Taken Unknown] blood sugar diagnostic (Blood Glucose Test strips) #100 ea 04/28/22 [Rx Last Taken Unknown] blood-glucose meter #1 ea 04/28/22 [Rx Last Taken Unknown] dulaglutide 3 mg/0.5 mL subcutaneous pen injector (Trulicity) 3 mg (0.5 mL) subcut TU diabetes #6 mL 04/28/22 [Rx Last Taken Unknown] lancets 32 gauge #100 ea 04/28/22 [Rx Last Taken Unknown] lisinopril 20 mg tablet 20 mg PO DAILY BP #90 tabs 04/28/22 [Rx Last Taken Unknown] metformin 1,000 mg tablet 1,000 mg PO BID diabetes #180 tabs 04/28/22 [Rx Last Taken Unknown] miscellaneous medical supply (Blood Pressure Cuff) #1 ea 04/28/22 [Rx Last Taken Unknown] sitagliptin phosphate 100 mg tablet 100 mg PO DAILY diabetes #90 tabs 04/28/22 [Rx Last Taken Unknown] tadalafil 5 mg tablet 5 mg PO ONCE PRN sexual activity #14 tabs 05/06/22 [Rx Last Taken Unknown] Allergy/AdvReac Type Severity Reaction Status Date / Time ketorolac [From Toradol] AdvReac Upset Verified 04/28/22 08:07 Stomach NSAIDS (Non-Steroidal AdvReac Upset Verified 04/28/22 08:07 Anti-Inflamma Stomach Family History Mother Hypertension Diabetes Heart disease Sister Hypertension Diabetes Crohns disease Brother Diabetes Surgical History History of cholecystectomy History of esophageal surgery Status post amputation of right foot through metatarsal bone Social History (Updated 04/28/22 @ 08:31 by JEFF Roth) Smoking Status: Current every day smoker tobacco type: cigarettes alcohol intake: never substance use type: does not use what type of physical activity do you participate in: walking frequency: daily ROS ROS ED ROS Narrative Constitutional: Denies fever HEENT: Denies sore throat Neck: Denies neck pain Cardiovascular: Denies chest pain, syncope Respiratory: Endorses shortness of breath GI: Denies nausea vomiting or abdominal pain : Denies changes in urinary habits Musculoskeletal: Denies muscle or joint pain Neurologic: Denies numbness weakness or loss of sensation Skin denies rash EXAM Physical Exam Narrative Exam Narrative: Nursing triage notes reviewed, Vital signs reviewed Constitutional: please see mdm HENT: MMM Eyes: Pupils equal round and reactive to light, Extraocular muscles intact Neck: No stridor, no JVD, full neck ROM Lungs: Difficult assess secondary to body habitus but no obvious consolidation, mild increased work of breathing, no obvious rales Heart: Regular rate and rhythm, No murmurs, No rubs and No gallops, 2+ distal pulses (radial, femoral, posterior tibial) in all extremities Abdomen: Soft, there is no tenderness, rigidity, rebound or guarding, no obvious peritoneal signs, no palpable pulsatile abdominal masses, no auscultated abdominal bruit : No CVAT Extremities: Bilateral 2+ pitting edema (chronic per patient), no obvious calf tenderness on my exam. Neuro: No focal neurological deficits, cranial nerves II through XII intact, 5/5 strength in all extremities. Intact sensation to light touch in all extremities, 2+ reflexes bilateral patella dens. Normal gait. No ataxia. Skin: No rash or lesions noted Const Vital Signs: 07/20/22 12:54 07/20/22 13:51 07/20/22 13:51 Temperature 97.5 F L 97.5 F L Temperature Source Temporal Temporal Pulse Rate 137 H 137 H 137 H Respiratory Rate 28 H 28 H 28 H Respiratory Effort Respiratory Depth Respiratory Pattern Blood Pressure 124/75 H 124/75 H 124/75 H Blood Pressure Mean 91 91 91 Pulse Ox 94 94 94 Oxygen Delivery Method Room Air Room Air Room Air Oxygen Flow Rate (L/min) 07/20/22 13:51 07/20/22 14:00 07/20/22 15:00 Temperature 98.7 F 98.8 F Temperature Source Temporal Temporal Pulse Rate 108 H 130 H Respiratory Rate 26 H 34 H Respiratory Effort Short of Breath Labored Respiratory Depth Normal Respiratory Pattern Tachypnea Blood Pressure 160/111 H 128/67 H Blood Pressure Mean 127 87 Pulse Ox 90 96 Oxygen Delivery Method Nasal Cannula Oxygen Flow Rate (L/min) 2 MDM MDM MDM Narrative Medical decision making narrative: Chief Complaint: Shortness of breath External records reviewed: Recent echocardiograms noted in the chart I considered: ACS, arrhythmia, pneumonia, COVID, anemia, PE, CHF exacerbation Patient was in mild respiratory distress. He had no obvious wheezing. He had mild increased work of breathing. No conversational dyspnea. No obvious focal consolidation on lung exam of this is limited by body habitus. He had bilateral lower extremity edema which is chronic per the patient. I obtained a broad lab and imaging work-up to further elucidate the etiology the patient complaints. Specifically concerned about COVID-19, flu, CHF, arrhythmia, anemia, ACS, PE. EKG without evidence of arrhythmia or acute STEMI. Patient no significant anemia on his initial lab evaluation. He did have an elevated heart rate and elevated white blood cell count for prompted lactate and blood cultures given concern for sepsis. Also added a D-dimer to further work-up if the patient has signs of VTE including PE given tachycardia clear lungs and no better explanation for the patient's respiratory symptoms and hypoxia. D-dimer, lactate blood cultures are pending at this time to give 1 L normal saline to begin resuscitation to improve the patient's tachycardia. Placed the patient into use of oxygen which improved his oxygenation from 88% to 90%. We will continue to monitor. Factors affecting care: Diabetes, venous insufficiency, history of osteomyelitis, hypertension Social determinants of health: Poor medical knowledge Shared decision making: I will have a discussion with the patient and or visitors regarding risk/benefits of further testing or admission. They will be made aware of of the risk/benefits inherent in this decision they will be given the opportunity to voice understanding. Consults: none at this time Lab Data Attestation: I reviewed the patient's lab results. Lab results narrative: CBC with leukocytosis suggestive of systemic inflammation, no severe anemia, no thrombocytopenia BMP with hyponatremia, hypokalemia, no sniffing and acute kidney injury Troponin is negative, no evidence of myocardial ischemia was unremarkable for myocardial ischemia BNP mildly elevated suggestive of volume overload however not particular consistent with new onset hypoxia Labs: Laboratory Results - last 24 hr 07/20/22 07/20/22 07/20/22 13:30 13:30 13:30 WBC 13.7 H RBC 5.08 Hgb 13.2 Hct 41.5 MCV 81.7 MCH 26.0 L MCHC 31.8 L RDW Std Deviation 43.2 RDW Coeff of Maria Fernanda 14.6 Plt Count 175 MPV 11.7 Immature Gran % (Auto) 1.500 H Neut % (Auto) 90.4 H Lymph % (Auto) 2.9 L [place] % (Auto) 5.0 Eos % (Auto) 0.0 Baso % (Auto) 0.2 Absolute Neuts (auto) 12.4 H Absolute Lymphs (auto) 0.40 L Nucleated RBC % 0 Differential Comment SCANNED Sodium 127 L Potassium 3.3 L Chloride 89 L Carbon Dioxide 26.0 Anion Gap 12 BUN 11 Creatinine 1.29 Estim Creat Clear Calc 71.34 Est GFR (MDRD) Af Amer 75 Est GFR (MDRD) Non-Af 62 BUN/Creatinine Ratio 8.5 L Glucose 342 H Calcium 8.0 L Troponin I High Sens 42 B-Natriuretic Peptide 274.6 H Radiography Diagnostic Testing: Clinical Impression(s) from Imaging Studies Chest X-Ray 07/20/22 14:05 IMPRESSION: No acute pulmonary process Electronically Signed: Dustin Mendenhall MD at 14:20 EST , Chest x-ray read interpreted by myself. No evidence of obvious pulmonary edema or pneumonia or pneumothorax explain the patient's symptoms Treatment and Re-Evaluation Narrative: Signed out to p.m. physician with final disposition (likely admission given hypoxia) will be determined by oncoming physician pending labs and images. Discharge Plan Triage Chief Complaint: Shortness of Breath ED Provider: Jack Tinajero Dx/Rx/DC Orders Clinical Impression: Hypoxia, Tachycardia, Acute hypokalemia, Acute dyspnea Prescriptions: No Action (DME) Handicap Placard See Rx Instructions .ROUTE .MEDSUPPLY Qty: 1 0RF Rx Instructions: As directed, length of time 3 years Trulicity 3 mg/0.5 mL pen injector 3 mg SUBCUT TU Qty: 6 1RF metformin 1,000 mg tablet 1,000 mg PO BID Qty: 180 1RF (DME) Blood Glucose Test Strip See Rx Instructions .ROUTE .MEDSUPPLY Qty: 100 11RF Rx Instructions: use as directed twice daily to monitor blood glucose for type 2 DM (DME) blood-glucose meter Misc See Rx Instructions .ROUTE .MEDSUPPLY Qty: 1 0RF Rx Instructions: use as directed twice daily to monitor blood glucose for type 2 DM (DME) lancets 32 gauge misc See Rx Instructions .Route Qty: 100 11RF Rx Instructions: use as directed twice daily to monitor blood glucose for type 2 DM (DME) Blood Pressure Cuff Misc See Rx Instructions .Route Qty: 1 0RF Rx Instructions: Check blood pressure daily lisinopril 20 mg tablet 20 mg PO DAILY Qty: 90 0RF sitagliptin phosphate 100 mg tablet 100 mg PO DAILY Qty: 90 0RF albuterol sulfate 90 mcg/actuation HFA aerosol inhaler 1 - 2 puff inhalation Q6H PRN (Reason: shortness of breath or wheezing) Qty: 8.5 0RF tadalafil 5 mg tablet 5 mg PO ONCE PRN (Reason: sexual activity) Qty: 14 1RF Rx Instructions: administer approximately 30min before sexual activity; do not use more than 1 dose per 24hrs acetaminophen 325 MG tablet 650 mg PO Q6H PRN PRN (Reason: Pain Score 1-10/Temp > 100.7 F) 0RF Primary Care Provider: Gavin Raymundo Referrals: Gavin Raymundo MD [Primary Care Provider] -
--- NOTE | 2022-07-20 13:49 | EKG12_ITS ---
Test Reason : SOB Blood Pressure : / mmHG Vent. Rate : 145 BPM Atrial Rate : 145 BPM P-R Int : 130 ms QRS Dur : 082 ms QT Int : 324 ms P-R-T Axes : 022 064 050 degrees QTc Int : 503 ms Sinus tachycardia with frequent and consecutive Premature ventricular complexes Abnormal ECG Confirmed by DIANDRA STAFFORD, MIKE ([id number]), senior technical editor YESENIA GONZALEZ ([id number]) on 07/22/2022 10:38:06 AM Referred By: Confirmed By:MIKE JIM MD
--- NOTE | 2022-07-20 14:05 | RAD_ITS ---
STUDY: X-RAY CHEST REASON FOR EXAM: Male, 52 years old. Shortness of breath and cough TECHNIQUE: PA and lateral views of the chest. COMPARISON: None. FINDINGS: EKG leads overlie the chest The lungs are clear and expanded. There is no demonstrated pleural abnormality. Normal size heart. Normal mediastinum and nigel. Normal visualized pulmonary arteries. Normal visualized aortic arch and descending thoracic aorta. There are diffuse degenerative changes of the visualized thoracic spine. Normal visualized ribs, clavicles, and shoulders. There is no demonstrated abnormality of the visualized soft tissue structures of the upper abdomen. RAD/Chest PA and Lateral IMPRESSION: No acute pulmonary process Electronically Signed: Dustin Mendenhall MD at 14:20 EST ,
[2022-07-20 14:12] LABS: Absolute Neutrophil Count 12.4 X10^3/uL (2.0-7.7); Basophil# 0.03 X10^3/uL; Basophil% 0.2 % (0-1); Hematocrit 41.5 % (40-54); Hemoglobin 13.2 g/dL (13.0-16.5); Lymphocyte % 2.9 % (19-41); Mean Corp Hgb Conc 31.8 g/dL (32-36); Mean Corpuscular Volume 81.7 fL (80-94); Mean Platelet Vol. 11.7 fl (6.2-12.0); Monocyte# 0.69 X10^3/uL; NRBC Flagged by Analyzer 0 % (0-5); Neutrophil # 12.39 X10^3/uL (2.7-7.7); Neutrophil % 90.4 % (47-70); POSITIVE DIFFERENTIAL YES; Platelet Count 175 K/mm3 (150-450); RBC Distribution Width CV 14.6 % (11.6-14.6); RBC Distribution Width SD 43.2 fl (35.1-43.9); Red Blood Count 5.08 M/mm3 (4.6-6.2); White Blood Count 13.7 K/mm3 (4.4-11.0)
[2022-07-20 14:28] LABS: Differential Indicated SCAN CRITERIA MET
[2022-07-20 14:31] LABS: Anion Gap 12 (5-15); BUN 11 mg/dL (7-18); BUN/Creat Ratio 8.5 RATIO (10-20); Chloride 89 mmol/L (98-107); Creatinine, Serum 1.29 mg/dL (0.70-1.30); EST Glomerular Filtration Rate 62 mL/min (>60); Est Glom Filt Rate - Afr Amer 75 mL/min (>60); Estimated Creatinine Clearance 71.34 ml/min; Glucose 342 mg/dL (74-106); Potassium 3.3 mmol/L (3.5-5.1); Sodium Level 127 mmol/L (136-145); Troponin-I HS 42 pg/mL (3.0-78.0)
[2022-07-20 14:48] LABS: Differential Comment SCANNED
[2022-07-20 15:05] LABS: BNP,B-Type NATRIURETIC PEPTIDE 274.6 pg/mL (0-100)
[2022-07-20 15:39] LABS: D-Dimer Quantitative (DVT/PE) 2.83 FEU/ug/m (0.27-0.49)
--- NOTE | 2022-07-20 15:44 | CT_ITS ---
INDICATION: sob EXAMINATION: CTA Chest WO/W Contrast Injection TECHNIQUE: Helically acquired images were obtained of the chest following administration of IV contrast. A radiation dose optimization technique was used for this scan. 3D postprocessing images including MIPS were reviewed. IV Contrast dosage and agent: IV 100mL [id number] COMPARISON: None. FINDINGS: Lungs: Interval development of few small cavitary lesions throughout the lungs with surrounding groundglass opacities, for example a 2 x 0.8 cm lesion in the left lung apex. Mediastinum: The cardiomediastinal silhouette is not enlarged. No mediastinal, hilar or axillary adenopathy. The thoracic aorta is unremarkable. No coronary artery calcified dislocations. No obvious filling defect seen within the visualized pulmonary arteries. Pleura: Unremarkable Bones/Soft tissues: Mild scattered degenerative changes of the visualized spine. Upper abdomen: The spleen is moderately enlarged. CT/CTA Chest W/WO Contrast IMPRESSION: No evidence of acute pulmonary emboli to the segmental level. Few scattered small cavitary lesions throughout the lungs with surrounding groundglass opacities. Differential includes atypical infection, metastatic disease and other less likely etiologies. Moderate splenomegaly. Electronically Signed: Julio C Santiago MD at 17:52 EST ,
[2022-07-20 15:55] LABS: Lactic Acid 2.9 mmol/L (0.4-1.9)
[2022-07-20] MEDS: 0.9% Normal Saline 1,000 ML 999 ML IV ×2 (16:10→23:02)
[2022-07-20 18:18] LABS: Mucous, Urine 0 SEEN /hpf (<or=2+); Squamous Epithelial Cells - UA 0 SEEN /hpf (0-5)
[2022-07-20 18:31] LABS: Color, Urine Yellow (Yellow); Glucose, Dipstick Normal (Normal); Ketone-Dipstick Negative (Negative); Leukocyte Esterase-Dipstick 500 /ul (Negative); Nitrite-Dipstick Negative (Negative); Occult Blood-Urine 25 /ul (Negative); Protein-Dipstick 100 mg/dl (Negative); Specific Gravity, Urine 1.005 (1.002-1.030); Urine Bilirubin Dipstick Negative (Negative); Urine Clarity Clear (Clear); Urine Urobilinogen Normal (Normal)
[2022-07-20 18:43] LABS: Magnesium 1.4 mg/dL (1.6-2.6)
[2022-07-20 18:47] LABS: Bacteria 2+ /hpf (None Seen); Red Blood Cells-Urine 0-5 SEEN /hpf (0-5); White Blood Cells 10-25 SEEN /hpf (0-5)
[2022-07-20 18:59] LABS: Reflex Lactate? Y
--- NOTE | 2022-07-20 19:44 | PCM.HP.STD ---
HPI - General General Date of Admission: 07/20/22 Date of Service: 07/20/22 Chief Complaint: Dyspnea, cough. HPI Narrative The patient is a 52 y/o M w/ PMHx: Hx VTE (DVT), HTN, HLD, KRYSTAL, COPD, Tobacco use, Diabetes mellitus type II, Chronic venous stasis disease, GERD, Hx Charcot arthropathy w/ Hx osteomyelitis, Hx nonpressure chronic ulcer right midfoot s/p prior amputation intervention following w/ Dr. Acevedo outpatient with most [facility] with debridement performed at that time who presents to the [facility] ED on 07/20/22 with history of approximately 2 days of increasing dyspnea, worse with any exertion attempts with history of surgical intervention approximately 4 weeks prior with increased ambulation, not improving prompting eventual ED evaluation. Patient denies any recent associated fevers or chills. Denies any recent nausea, emesis or diarrhea. He denies any ill contacts. Chart reports history of DVT however patient adamantly denies this history. Work-up in the ED included T97.5, heart rate 137, BP 124/75, respiratory rate 28, 94% on room air eventually desaturating with administration 2 L nasal cannula improving to 96%, noted desaturation 87-88%, CBC with WC 13.7, hemoglobin 13.2, platelet 175 with left shift and lymphopenia, D-dimer 2.83, BMP with sodium 127, potassium 3.3, chloride 89, glucose 342, lactic acid 2.9, troponin 42, BNP 274.6, chest x-ray with no acute cardiopulmonary findings, blood culture x2 pending per ED, rapid SARS COVID and influenza antigen negative, CTPA with no evidence of acute pulmonary emboli to the segmental level, few scattered small cavitary lesions throughout the lungs with surrounding groundglass opacities possibly secondary to atypical infection, metastatic disease, moderate splenomegaly, EKG with sinus tachycardia with occasional PVC. Given CTPA findings discussed presentation with ED physician and patient will be administered IV Zosyn and vancomycin. [facility] Medical History Amputation of toe of left foot Cellulitis Charcot arthropathy of midfoot Chronic venous insufficiency DVT (deep venous thrombosis) History of esophageal disorder Hypertension KRYSTAL (obstructive sleep apnea) Osteoarthritis Tobacco abuse counseling Type 2 diabetes mellitus Venous insufficiency Home Medications Handicap Placard #1 ea 12/05/20 [Rx Last Taken Unknown] albuterol sulfate 90 mcg/actuation aerosol inhaler 1 - 2 puff inhalation Q6H PRN shortness of breath or wheezing #8.5 grams 04/28/22 [Rx Last Taken 07/18/22] blood sugar diagnostic (Blood Glucose Test strips) #100 ea 04/28/22 [Rx Last Taken Unknown] blood-glucose meter #1 ea 04/28/22 [Rx Last Taken Unknown] dulaglutide 3 mg/0.5 mL subcutaneous pen injector (Trulicity) 3 mg (0.5 mL) subcut TU diabetes #6 mL 04/28/22 [Rx Last Taken 07/14/22] lancets 32 gauge #100 ea 04/28/22 [Rx Last Taken Unknown] metformin 1,000 mg tablet 1,000 mg PO BID diabetes #180 tabs 04/28/22 [Rx Last Taken Unknown] miscellaneous medical supply (Blood Pressure Cuff) #1 ea 04/28/22 [Rx Last Taken Unknown] sitagliptin phosphate 100 mg tablet 100 mg PO DAILY diabetes #90 tabs 04/28/22 [Rx Last Taken Unknown] tadalafil 5 mg tablet 5 mg PO ONCE PRN sexual activity #14 tabs 05/06/22 [Rx Last Taken Unknown] lisinopril 20 mg tablet 20 mg PO DAILY BLOOD PRESSURE 07/20/22 [History Last Taken Unknown] Allergy/AdvReac Type Severity Reaction Status Date / Time ketorolac [From Toradol] AdvReac Upset Verified 04/28/22 08:07 Stomach NSAIDS (Non-Steroidal AdvReac Upset Verified 04/28/22 08:07 Anti-Inflamma Stomach Family History Mother Hypertension Diabetes Heart disease Sister Hypertension Diabetes Crohns disease Brother Diabetes Family History other other (Patient does not know his paternal family history.) Surgical History History of cholecystectomy History of esophageal surgery Status post amputation of right foot through metatarsal bone Social History (Updated 07/20/22 @ 18:[address] Missy Singh MD) household members: none Smoking Status: Current every day smoker tobacco type: cigarettes Smoking packs per day: 0.5 Smoking cigarettes per day: 10.0 Years smoked: 36 Smoking pack-years: 18.00 alcohol intake: never substance use type: does not use what type of physical activity do you participate in: walking frequency: daily ROS ROS Narrative Admission Review of Systems: CONSTITUTIONAL: No weight loss, fever, chills, + weakness or fatigue. HEENT: Eyes: No visual loss, blurred vision, double vision or yellow sclerae. Ears, Nose, Throat: No hearing loss, sneezing, congestion, runny nose or sore throat. SKIN: + Chronic RLE foot wounds. CARDIOVASCULAR: No chest pain, chest pressure or chest discomfort, palpitations, edema, orthopnea, syncopal events. RESPIRATORY: + shortness of breath, cough with occasional sputum, No wheezing, hemoptysis. GASTROINTESTINAL: No anorexia, nausea, vomiting or diarrhea, abdominal pain, melena, BRBPR. GENITOURINARY: No dysuria, frequency, urgency or retention. NEUROLOGICAL: No headache, dizziness, syncope, paralysis, ataxia, numbness or tingling in the extremities, focal weakness, change in bowel or bladder control, seizure. MUSCULOSKELETAL: + muscle, back pain, joint pain or stiffness. HEMATOLOGIC: No anemia, bleeding or bruising. LYMPHATICS: No enlarged nodes. No history of splenectomy. PSYCHIATRIC: No history of depression or anxiety. ENDOCRINOLOGIC: No reports of sweating, cold or heat intolerance. No polyuria or polydipsia. ALLERGIES: No history of asthma, hives, eczema or rhinitis. Vital Signs Vital Signs Vital Signs: 07/20/22 12:54 07/20/22 13:51 07/20/22 13:51 Temperature 97.5 F L 97.5 F L Temperature Source Temporal Temporal Pulse Rate 137 H 137 H 137 H Respiratory Rate 28 H 28 H 28 H Respiratory Effort Respiratory Depth Respiratory Pattern Blood Pressure 124/75 H 124/75 H 124/75 H Blood Pressure Mean 91 91 91 Pulse Ox 94 94 94 Oxygen Delivery Method Room Air Room Air Room Air Oxygen Flow Rate (L/min) 07/20/22 13:51 07/20/22 14:00 07/20/22 15:00 Temperature 98.7 F 98.8 F Temperature Source Temporal Temporal Pulse Rate 108 H 130 H Respiratory Rate 26 H 34 H Respiratory Effort Short of Breath Labored Respiratory Depth Normal Respiratory Pattern Tachypnea Blood Pressure 160/111 H 128/67 H Blood Pressure Mean 127 87 Pulse Ox 90 96 Oxygen Delivery Method Nasal Cannula Oxygen Flow Rate (L/min) 2 07/20/22 16:00 Temperature 98.2 F Temperature Source Temporal Pulse Rate 129 H Respiratory Rate 26 H Respiratory Effort Respiratory Depth Respiratory Pattern Blood Pressure 128/52 H Blood Pressure Mean 77 Pulse Ox 96 Oxygen Delivery Method Nasal Cannula Oxygen Flow Rate (L/min) 2 Weight Weight: 356 lb Body Mass Index (BMI) 49.6 Physical Exam Narrative Physical Examination: General: Awake, alert, oriented x 3 and cooperative, seated upright in the ED bed, fatigued appearing, no acute distress Skin: Normal color, normal turgor, no icterus, no cyanosis except intertrigo as well as Charcot foot, right with rocker-bottom deformity status post partial fourth and fifth ray, second partial amp, mild serosanguineous drainage plantar foot. HEENT: AT/NC, EOMI, PERRLA, dry MM, no carotid bruits or JVD noted; however, thickened neck makes evaluation difficult. Lungs: Severely diminished diffusely, mildly increased respiratory rate but no distress, no obvious rales, ronchi or wheezing. Heart: Tachycardic with regular rhythm; no gallop, rub audible. Abdomen: Soft, morbidly obese, NTTP, difficult assess distention given habitus, does normal BS, unable to ascertain HSM given habitus. Extremities: No cyanosis, no clubbing, see skin, chronic bilateral lower extremity lymphedema, significant pedal to proximal knee 2-3+ pitting edema which she reports is chronic Neurological: Patient awake, alert, oriented as noted, cognitive function intact; pupils equally reactive to light and accommodation, cranial nerves II-XII grossly normal, moving all 4 extremities, no focal deficits, strength moderately global decreased secondary to acute presentation and complicated by underlying comorbidities Psychiatric: Affect appears fatigued, ill-appearing, no acute evidence of depressive or anxiety feelings. Results Lab / Micro Data Result Diagrams: 07/20/22 13:30 07/20/22 13:30 Labs: Laboratory Results - last 24 hr 07/20/22 13:30: WBC 13.7 H, RBC 5.08, Hgb 13.2, Hct 41.5, MCV 81.7, MCH 26.0 L, MCHC 31.8 L, RDW Std Deviation 43.2, RDW Coeff of Maria Fernanda 14.6, Plt Count 175, MPV 11.7, Immature Gran % (Auto) 1.500 H, Neut % (Auto) 90.4 H, Lymph % (Auto) 2.9 L, Gordon % (Auto) 5.0, Eos % (Auto) 0.0, Baso % (Auto) 0.2, Absolute Neuts (auto) 12.4 H, Absolute Lymphs (auto) 0.40 L, Nucleated RBC % 0, Differential Comment SCANNED 07/20/22 13:30: Sodium 127 L, Potassium 3.3 L, Chloride 89 L, Carbon Dioxide 26.0, Anion Gap 12, BUN 11, Creatinine 1.29, Estim Creat Clear Calc 71.34, Est GFR (MDRD) Af Amer 75, Est GFR (MDRD) Non-Af 62, BUN/Creatinine Ratio 8.5 L, Glucose 342 H, Calcium 8.0 L, Troponin I High Sens 42 07/20/22 13:30: B-Natriuretic Peptide 274.6 H 07/20/22 13:30: D-Dimer Quant (PE/DVT) 2.83 H* 07/20/22 14:45: Lactic Acid 2.9 H* Micro: Microbiology 07/20/22 13:55 Nasal Secretion SARS-CoV-2 & FLU Antigen (Rapid) - Final Radiology Impression Chest X-Ray 07/20/22 14:05 IMPRESSION: No acute pulmonary process Electronically Signed: Dustin Mendenhall MD at 14:20 EST , Chest CTA 07/20/22 15:44 IMPRESSION: No evidence of acute pulmonary emboli to the segmental level. Few scattered small cavitary lesions throughout the lungs with surrounding groundglass opacities. Differential includes atypical infection, metastatic disease and other less likely etiologies. Moderate splenomegaly. Electronically Signed: Julio C Santiago MD at 17:52 EST , Assessment & Plan Assessment/Plan (1) Hypoxia: PLAN: Plan The patient is a 52 y/o M w/ PMHx: Hx VTE (DVT), HTN, HLD, KRYSTAL, COPD, Tobacco use, Diabetes mellitus type II, Chronic venous stasis disease, GERD, Hx Charcot arthropathy w/ Hx osteomyelitis, Hx nonpressure chronic ulcer right midfoot s/p prior amputation intervention following w/ Dr. Acevedo outpatient with most [facility] with debridement performed at that time who presents to the [facility] ED on 07/20/22 with history of approximately 2 days of increasing dyspnea, worse with any exertion attempts with history of surgical intervention approximately 4 weeks prior with increased ambulation, not improving prompting eventual ED evaluation. #1. Acute Hypoxia, Dyspnea, secondary to Bilateral Possible Atypical Infection versus Metastatic Disease: Will admit to [facility], maintain on oxygen with wean as tolerated to room air, continue ATC budesonide given significant tachycardia, PRN albuterol, maintained on IV Zosyn and Vancomycin w/ pending MRSA screen with de-escalation as able (Hx + MRSA wounds), will request Pulmonary and ID consultations given notable presentation, HOB, IS parameters w/ pending sputum cultures and urine antigens. Bld cx x 2 obtained in the ED. #2. Lactic acidosis: Admission lactic acid 2.9, potentially related to hypoxemia, continue judicious IV fluids as noted, trend lactic acid per facility protocol continue treatments and interventions as noted #1. #3. Hyponatremia, mild: Admission sodium 127, prior baselines appear in the normal range primarily, chloride also decreased to 89, potentially hypovolemic, will continue judicious hydration and repeat CMP in AM. #4. Hypokalemia: Admission K+ 3.3, magnesium level request, supplementation given, repeat level in AM. #5. Hx Charcot arthropathy w/ Hx osteomyelitis, Hx nonpressure chronic ulcer right midfoot: s/p prior amputation intervention following faith/ Dr. Acevedo outpatient with most recent evaluation [facility], per most recent recommendations had debridement at his office visit, will continue nonweightbearing to the right lower extremity with usage of wheelchair or knee walker/Rollator, planned Kenaitze boot to offload the Charcot midfoot outpatient, encourage elevation, low-salt diet, encouraged continued muscular routine contraction of the lower extremity, continue Suprasorb dressing application, wound RN consulted, pending. #6. Chronic COPD: Will maintain on oxygen with wean as tolerated to room air, given symptoms will maintain on ATC budesonide given notable tachycardia, PRN albuterol, HOB, IS parameters. #7. Hypertension: Continue home regimen including lisinopril with further adjustments as needed pending blood pressure trend, PRN hydralazine. #8. Hyperlipidemia: Not on statin therapy per current list, encourage continued outpatient follow-up. #9. Diabetes mellitus type II: Hold oral home regimen, ADA diet, accu checks w/ ISS. #10. Morbid Obesity: Weight loss and lifestyle changes encouraged. #11. Tobacco Abuse: Encouraged cessation, inpatient consultation per RT, NR if desired. #12. Bilateral lower extremity chronic venous stasis disease: We will maintain on low-dose aspirin, encourage continued hypertensive, hyperlipidemic and DM control. #13. Possible history DVT: Patient denies history but his chart reported, continue treatments as noted. #14. GERD: We will have as needed Mylanta regimen available. #15. KRYSTAL: CPAP nightly. #16. DVT prophylaxis: SCDs, Lovenox while awaiting pulmonary and ID assessment, may need to hold for possible intervention. #17. CODE status: Patient is does not have healthcare power of corporate associate attorney nor living will in place. Discussed CODE status at length including difference between FULL code, DNR-CCA and DNR-CC status. Following discussions about the differences in these status, requested Full Code status. Advanced Care Planning Face to Face Time: 17 minutes. Admission Evaluation Time spent evaluating chart, patient history, patient evaluation, care planning and discussion with specialists: 77 minutes. Charges/Coding Visit Charges Inpatient E&M: 21796 Init Hosp L3 Procedures Hospitalists Procedures: 27757 Advncd Care Plan 30 Min
[2022-07-20 20:36] LABS: Lactic Acid 2.4 mmol/L (0.4-1.9)
[2022-07-20 22:50] LABS: Bedside Glucose 275 mg/dL (74-106)
[2022-07-20] MEDS: Menthol/Lanolin/Calamine/Znox 113 GM Tube 1 APPLIC TOPICAL (22:50)
[2022-07-20] MEDS: Enoxaparin 40 MG/0.4 ML Syringe SC (22:52)
[2022-07-20] MEDS: 0.9% Saline Lock 10 ML Syringe IV (22:52)
[2022-07-20] MEDS: Potassium Chloride Oral Tablet 20 MEQ 40 MEQ PO (22:56)
[2022-07-20] MEDS: Insulin Lispro 100 UNIT/ML INSULN.PEN SC (22:58)
--- NOTE | 2022-07-20 23:30 | PCM.RX.CS ---
Consult Pharmacy has been consulted to manage selected antiobiotic: Vancomycin Type of Consult: New start Prior Doses of Antibiotics Received/Current Regimen: Medications Vancomycin HCl 1,500 mg/ (Sodium Chloride) 530 mls @ 250 mls/hr IV Q8H BLAIR Discontinued Medications Vancomycin HCl 2,000 mg/ (Sodium Chloride) 540 mls @ 250 mls/hr IV X1 ONE Stop: 07/20/22 20:17 Last Admin: 07/20/22 19:50 Dose: 250 mls/hr Labs: Sodium 127 mmol/L (136-145) L 07/20/22 13:30 Potassium 3.3 mmol/L (3.5-5.1) L 07/20/22 13:30 Chloride 89 mmol/L (98-107) L 07/20/22 13:30 Carbon Dioxide 26.0 mmol/L (21.0-32.0) 07/20/22 13:30 Anion Gap 12 (5-15) 07/20/22 13:30 BUN 11 mg/dL (7-18) 07/20/22 13:30 Creatinine 1.29 mg/dL (0.70-1.30) 07/20/22 13:30 Est GFR (MDRD) Af Amer 75 mL/min (>60) 07/20/22 13:30 Est GFR (MDRD) Non-Af 62 mL/min (>60) 07/20/22 13:30 BUN/Creatinine Ratio 8.5 RATIO (10-20) L 07/20/22 13:30 Glucose 342 mg/dL (74-106) H 07/20/22 13:30 Microbiology: Microbiology 07/20/22 19:47 Mucosa - Nasopharyngeal Respiratory Panel (PCR) - Final 07/20/22 18:10 Urine, Random Legionella Antigen - Final 07/20/22 18:10 Urine, Random Streptococcus pneumoniae Antigen (M - Final 07/20/22 13:55 Nasal Secretion SARS-CoV-2 & FLU Antigen (Rapid) - Final Weight used for dosin.9 kg Estimated Creatinine Clearance: 109 Goal Trough: 15-20 mcg/mL Pharmacy Plan for Drug Dosing: Pharmacy Service will continue to monitor and adjust dosing as required. Follow-Up Labs: Trough Vancomycin Labs to be done on [date and time ordered]: 07/21/22 @1930
[2022-07-21] VITALS (14 sets, daily range): BP systolic 85–130; BP diastolic 60–75; PULSE 95–120; RESP 18–38; TEMP 35.8–37.6; O2SAT 93–99
[2022-07-21] MEDS: 0.9% Normal Saline 1,000 ML 125 ML IV (00:10)
--- NOTE | 2022-07-21 01:15 | CPS ---
Pt refuses CPAP at this time
[2022-07-21] MEDS: Menthol/Lanolin/Calamine/Znox 113 GM Tube 1 APPLIC TOPICAL ×4 (03:17→21:36)
--- NOTE | 2022-07-21 03:41 | NURSING ---
complete soap and water bath given. right underarm red and excoriated, nystatin powder applied. groin mildly red, nystatin applied. smear bm noted, coccyx with dry skin, cleft red but intact. calmoseptine applied to cleft. primo fit intact, no urine output since patient arrived on unit soaked in urine. following bath, patient tachypnic, RR 32 but then will be in the low 20's when awake. HR remains sinus tach 103. pt oriented x3.
[2022-07-21 03:46] LABS: Absolute Lymphocyte Count 0.51 X10^3/uL (0.83-4.51); Absolute Neutrophil Count 15.3 X10^3/uL (2.0-7.7); Basophil# 0.04 X10^3/uL; Basophil% 0.2 % (0-1); Hematocrit 36.4 % (40-54); Hemoglobin 11.6 g/dL (13.0-16.5); Lymphocyte # 0.51 X10^3/ul (0.83-4.51); Mean Corp Hgb Conc 31.9 g/dL (32-36); Mean Corpuscular Hgb 26.3 pg (27.0-32.0); Mean Corpuscular Volume 82.5 fL (80-94); Mean Platelet Vol. 10.8 fl (6.2-12.0); Monocyte# 1.07 X10^3/uL; Monocyte% 6.2 % (0-10); NRBC Flagged by Analyzer 0 % (0-5); Neutrophil # 15.29 X10^3/uL (2.7-7.7); Neutrophil % 89.1 % (47-70); POSITIVE DIFFERENTIAL YES; Platelet Count 116 K/mm3 (150-450); RBC Distribution Width CV 14.7 % (11.6-14.6); RBC Distribution Width SD 43.9 fl (35.1-43.9); Red Blood Count 4.41 M/mm3 (4.6-6.2); White Blood Count 17.2 K/mm3 (4.4-11.0)
[2022-07-21 03:48] LABS: Differential Indicated SCAN CRITERIA MET
[2022-07-21 04:07] LABS: ALB/GLOB Ratio 0.4 RATIO (0.9-2.4); AST(SGOT) 30 U/L (15-37); Alanine Aminotransfer ALT/SGPT 18 U/L (16-61); Albumin, Serum 1.7 g/dL (3.2-5.0); Alkaline Phosphatase 59 U/L (45-117); Anion Gap 9 (5-15); BUN 15 mg/dL (7-18); BUN/Creat Ratio 13.2 RATIO (10-20); Calcium,Total 7.5 mg/dL (8.5-10.1); Chloride 95 mmol/L (98-107); Creatinine, Serum 1.14 mg/dL (0.70-1.30); EST Glomerular Filtration Rate 72 mL/min (>60); Est Glom Filt Rate - Afr Amer 87 mL/min (>60); Estimated Creatinine Clearance 80.73 ml/min; Globulin 4.7 g/dL (2.2-4.2); Glucose 293 mg/dL (74-106); Magnesium 1.7 mg/dL (1.6-2.6); Potassium 3.6 mmol/L (3.5-5.1); Protein, Total 6.4 g/dL (6.4-8.2); Sodium Level 132 mmol/L (136-145)
[2022-07-21 04:08] LABS: Differential Comment SCANNED
[2022-07-21 05:30] LABS: M R Staph aureus DNA By PCR Negative (Negative); Probe Check PASS; Specimen Processing Control PASS
[2022-07-21] MEDS: Albuterol 2.5 MG/3 ML VIAL.NEB. INHALATION ×2 (06:58→22:15)
[2022-07-21] MEDS: Budesonide Respules 0.5 MG/2 ML AMPUL.NEB. INHALATION (06:58)
--- NOTE | 2022-07-21 07:05 | CON.PCM.CC_ITS ---
Assessment & Plan Assessment/Plan (1) Sepsis: PLAN: Plan RECOMMENDATIONS: 1. Antimicrobials per infectious diseases. 2. Obtain podiatry and wound care consultations. 3. Obtain echocardiogram. 4. Stop continuous IV fluids. 5. Stop budesonide aerosols. 6. Continue appropriate DVT prophylaxis. 7. Wean supplemental oxygen to maintain saturations at or above 90%. 8. Encourage incentive spirometer use and mobilize patient as tolerated. IMPRESSIONS: 1. Sepsis The patient presented to the hospital with sepsis due to probable osteomyelitis with secondary MRSA bacteremia and acute sepsis related organ dysfunction as evidenced by lactic acidemia. The patient did receive supplemental IV fluid hydration and has remained hemodynamically stable. The patient remains on appropriate antimicrobials. Recommend podiatry and wound care consultations. Echocardiogram will also be obtained. I do suspect that the findings noted on his CT chest may likely represent hematogenous spread of his underlying infection. Regardless, I would recommend a follow-up chest CT in 6 to 8 weeks to document resolution. No additional intervention is required at this particular time. 2. Chronic tobacco dependency without diagnosis of COPD Although the patient has a longstanding tobacco abuse history, he denies ever having been diagnosed with COPD. It is reasonable to continue as needed bronchodilator therapy. Scheduled budesonide aerosols can be discontinued. Recommend weaning supplemental oxygen as tolerated for saturations greater than 90%. Nicotine replacement therapy can be offered to the patient while admitted to the hospital. 3. History of osteomyelitis with Charcot arthropathy/h ypertension/hyperlipidemia/morbid obesity/diabetes mellitus Complicates care, management, recovery and prognosis. Continue home medications as indicated. This note was generated with [employer] dictation software. It may contain incorrect words, spelling, and punctuation that were not noted in checking the note before signing. HPI Consult Data Date of Consult: 07/21/22 HPI Narrative Reason for Consultation: Sepsis HPI Narrative: The patient is a 52-year-old male, with a history as outlined below, who presented to the emergency department on July 20 with progressive shortness of breath. The patient has a history of chronic ulceration of the right foot along with history of osteomyelitis, venous stasis dermatitis, sleep apnea and tobacco dependency. The patient denied to me that he has ever been diagnosed previously with COPD. However, he does report that he occasionally utilizes an albuterol rescue inhaler. He does not have a baseline supplemental oxygen requirement. The patient is an active smoker of 0.5 packs of cigarettes per day. On presentation to the emergency department, the patient was noted to be afebrile but was notably tachycardic and tachypneic. Initial laboratory evaluation revealed a white blood cell count of 14,000. D-dimer was elevated at 2.83. Chemistry profile was notable for a sodium of 127, potassium of 3.3, chloride of 89 and creatinine of 1.29. Lactate was elevated at 2.9. Urine analysis was positive for leukocyte Estrace and 2+ urine bacteria. CTA chest sh owed no obvious pulmonary embolism, but did demonstrate bilateral small cavitary lesions with surrounding groundglass opacities. The patient received supplemental IV fluid hydration and was started on broad-spectrum antimicrobials. He was subsequently admitted to the hospital for further management. [facility] Medical History Amputation of toe of left foot Cellulitis Charcot arthropathy of midfoot Chronic venous insufficiency DVT (deep venous thrombosis) History of esophageal disorder Hypertension KRYSTAL (obstructive sleep apnea) Osteoarthritis Tobacco abuse counseling Type 2 diabetes mellitus Venous insufficiency Home Medications Handicap Placard #1 ea 12/05/20 [Rx Last Taken Unknown] albuterol sulfate 90 mcg/actuation aerosol inhaler 1 - 2 puff inhalation Q6H PRN shortness of breath or wheezing #8.5 grams 04/28/22 [Rx Last Taken 07/18/22] blood sugar diagnostic (Blood Glucose Test strips) #100 ea 04/28/22 [Rx Last Taken Unknown] blood-glucose meter #1 ea 04/28/22 [Rx Last Taken Unknown] dulaglutide 3 mg/0.5 mL subcutaneous pen injector (Trulicity) 3 mg (0.5 mL) subcut TU diabetes #6 mL 04/28/22 [Rx Last Taken 07/14/22] lancets 32 gauge #100 ea 04/28/22 [Rx Last Taken Unknown] metformin 1,000 mg tablet 1,000 mg PO BID diabetes #180 tabs 04/28/22 [Rx Last Taken Unknown] miscellaneous medical supply (Blood Pressure Cuff) #1 ea 04/28/22 [Rx Last Taken Unknown] sitagliptin phosphate 100 mg tablet 100 mg PO DAILY diabetes #90 tabs 04/28/22 [Rx Last Taken Unknown] tadalafil 5 mg tablet 5 mg PO ONCE PRN sexual activity #14 tabs 05/06/22 [Rx Last Taken Unknown] lisinopril 20 mg tablet 20 mg PO DAILY BLOOD PRESSURE 07/20/22 [History Last Taken Unknown] Allergy/AdvReac Type Severity Reaction Status Date / Time ketorolac [From Toradol] AdvReac Upset Verified 04/28/22 08:07 Stomach NSAIDS (Non-Steroidal AdvReac Upset Verified 04/28/22 08:07 Anti-Inflamma Stomach Family History Mother Hypertension Diabetes Heart disease Sister Hypertension Diabetes Crohns disease Brother Diabetes Family History other Surgical History History of cholecystectomy History of esophageal surgery Status post amputation of right foot through metatarsal bone Social History household members: none Smoking Status: Current every day smoker tobacco type: cigarettes alcohol intake: never substance use type: does not use what type of physical activity do you participate in: walking frequency: daily ROS ROS Narrative 10 systems reviewed with pertinent positives as noted in the HPI above. Physical Exam Const alert and no apparent distress Constitutional Narrative: Super morbidly obese. Sitting in bedside recliner. General Appearance: cooperative HEENT normocephalic, head/scalp atraumatic and moist oral mucous membranes Eyes PERRL, EOMs intact bilaterally and conjunctivae normal Neck supple General: trachea midline Chest inspection of chest normal Resp Auscultation: wheezes and diminished lung sounds Cardio regular rate and regular rhythm GI normal to inspection, nondistended, normoactive bowel sounds Extremity Extremity Narrative: Wrapped right foot. General Extremity: Negative for clubbing Skin General Skin Exam: venous stasis and dermatitis Neuro oriented x3, CN's II-XII intact bilaterally, moves all extremities and no focal motor deficits Psych cooperative and affect normal Lab / Micro Data Result Diagrams: 07/21/22 03:35 07/21/22 03:35 Labs: Laboratory Results - last 24 hr 07/20/22 13:30: WBC 13.7 H, RBC 5.08, Hgb 13.2, Hct 41.5, MCV 81.7, MCH 26.0 L, MCHC 31.8 L, RDW Std Deviation 43.2, RDW Coeff of Maria Fernanda 14.6, Plt Count 175, MPV 11.7, Immature Gran % (Auto) 1.500 H, Neut % (Auto) 90.4 H, Lymph % (Auto) 2.9 L , [place] % (Auto) 5.0, Eos % (Auto) 0.0, Baso % (Auto) 0.2, Absolute Neuts (auto) 12.4 H, Absolute Lymphs (auto) 0.40 L, Nucleated RBC % 0, Differential Comment SCANNED 07/20/22 13:30: Sodium 127 L, Potassium 3.3 L, Chloride 89 L, Carbon Dioxide 26.0, Anion Gap 12, BUN 11, Creatinine 1.29, Estim Creat Clear Calc 71.34, Est GFR (MDRD) Af Amer 75, Est GFR (MDRD) Non-Af 62, BUN/Creatinine Ratio 8.5 L, Glucose 342 H, Calcium 8.0 L, Troponin I High Sens 42 07/20/22 13:30: B-Natriuretic Peptide 274.6 H 07/20/22 13:30: D-Dimer Quant (PE/DVT) 2.83 H* 07/20/22 13:30: Magnesium 1.4 L 07/20/22 14:45: Lactic Acid 2.9 H* 07/20/22 18:10: Urine Color Yellow, Urine Clarity Clear, Urine pH 7.0, Ur Specific Reynolds 1.005, Urine Protein 100 H, Urine Glucose (UA) Normal, Urine Ketones Negative, Urine Occult Blood 25 H, Urine Nitrite Negative, Urine Bilirubin Negative, Urine Urobilinogen Normal, Ur Leukocyte Esterase 500 H, Urine RBC 0-5 SEEN, Urine WBC 10-25 SEEN, Ur Squamous Epith Cells 0 SEEN, Urine Bacteria 2+, Urine Mucus 0 SEEN 07/20/22 19:50: Lactic Acid 2.4 H* 07/20/22 22:18: POC Glucose 275 H 07/20/22 23:30: MRSA (PCR) Negative 07/21/22 03:35: Sodium 132 L, Potassium 3.6, Chloride 95 L, Carbon Dioxide 28.0, Anion Gap 9, BUN 15, Creatinine 1.14, Estim Creat Clear Calc 80.73, Est GFR (MDRD) Af Amer 87, Est GFR (MDRD) Non-Af 72, BUN/Creatinine Ratio 13.2, Glucose 293 H, Calcium 7.5 L, Magnesium 1.7, Total Bilirubin 0.90, AST 30, ALT 18, Alkaline Phosphatase 59, Total Protein 6.4, Albumin 1.7 L, Globulin 4.7 H, Albumin/Globulin Ratio 0.4 L 07/21/22 03:35: WBC 17.2 H, RBC 4.41 L, Hgb 11.6 L, Hct 36.4 L, MCV 82.5, MCH 26.3 L, MCHC 31.9 L, RDW Std Deviation 43.9, RDW Coeff of Maria Fernanda 14.7 H, Plt Count 116 L, MPV 10.8, Immature Gran % (Auto) 1.500 H, Neut % (Auto) 89.1 H, Lymph % (Auto) 3.0 L, [place] % (Auto) 6.2, Eos % (Auto) 0.0, Baso % (Auto) 0.2, Absolute Neuts (auto) 15.3 H, Absolute Lymphs (auto) 0.51 L, Nucleated RBC % 0, Differential Comment SCANNED Micro: Microbiology 07/20/22 14:55 Blood Culture (Wb) - Anticubital Right Bacteria Detection (PCR) - Preliminary Staphylococcus aureus 07/20/22 14:55 Blood Culture (Wb) - Anticubital Right Blood Culture - Preliminary 07/20/22 14:45 Blood Culture (Wb) - Left Hand Blood Culture - Preliminary 07/20/22 19:47 Mucosa - Nasopharyngeal Respiratory Panel (PCR) - Final 07/20/22 18:10 Urine, Random Legionella Antigen - Final 07/20/22 18:10 Urine, Random Streptococcus pneumoniae Antigen (M - Final 07/20/22 13:55 Nasal Secretion SARS-CoV-2 & FLU Antigen (Rapid) - Final Radiology Impression Chest X-Ray 07/20/22 14:05 IMPRESSION: No acute pulmonary process Electronically Signed: Dustin Mendenhall MD at 14:20 EST , Chest CTA 07/20/22 15:44 IMPRESSION: No evidence of acute pulmonary emboli to the segmental level. Few scattered small cavitary lesions throughout the lungs with surrounding groundglass opacities. Differential includes atypical infection, metastatic disease and other less likely etiologies. Moderate splenomegaly. Electronically Signed: Julio C Santiago MD at 17:52 EST , Charges/Coding Visit Charges Inpatient E&M: 86722 Init Hosp L3
[2022-07-21] MEDS: Insulin Lispro 100 UNIT/ML INSULN.PEN SC ×4 (07:36→21:42)
[2022-07-21] MEDS: Enoxaparin 40 MG/0.4 ML Syringe SC ×2 (07:37→21:35)
[2022-07-21] MEDS: Glucerna Shake 120 ML LIQUID PO (07:38)
[2022-07-21] MEDS: Lisinopril 20 MG Tablet PO (08:08)
[2022-07-21 08:20] LABS: Bedside Glucose 269 mg/dL (74-106)
--- NOTE | 2022-07-21 09:17 | ECHOCS_ITS ---
Reason For Study: MURMUR Procedure This was a 2D Doppler, Color Flow transthoracic echocardiogram. The study was technically difficult. Contrast injection was performed. Exam performed portable in ICU/CCU. Left Ventricle Based upon the 2D echocardiographic and contrast enhanced images obtained there appears to be grossly normal left ventricular size, wall motion, and systolic function. The estimated ejection fraction is 55 %. Diastolic function is indeterminate. Right Ventricle Based upon the 2D echocardiographic images obtained there appears to be grossly normal right ventricular size and systolic function. Atria Normal left atrium. The right atrium is not well visualized. No doppler evidence for ASD. Mitral Valve There is no mitral annular calcification. Normal mitral valve. Tricuspid Valve The tricuspid valve is not well visualized. Aortic Valve The aortic valve is not well visualized. Pulmonic Valve The pulmonic valve is not well visualized. Great Vessels The aortic root is not well visualized. Pericardium/Pleural No pericardial effusion. Medication Diluted definity 4ml given slow IV push to enhance endocardial definition. Time Measurements MV dec time: 0.14 sec Doppler Measurements & Calculations MV E max everett: 68.5 cm/sec Lat Peak E' Everett: 9.6 cm/sec Med Peak E' Everett: 9.3 cm/sec MV A max everett: 96.4 cm/sec E/E' lat: 7.1 E/E' med: 7.4 MV E/A: 0.71 MV V2 max: 86.1 cm/sec Ao V2 max: 110.8 cm/sec MV max P.0 mmHg MV dec slope: 665.6 cm/sec2 Ao max P.9 mmHg MV V2 mean: 58.8 cm/sec Ao V2 mean: 73.8 cm/sec MV mean P.5 mmHg Ao mean P.5 mmHg MV V2 VTI: 19.8 cm Ao V2 VTI: 19.1 cm AV (velocity ratio): 0.88 LV V1 max: 89.7 cm/sec LV V1 max P.2 mmHg LV V1 mean P.3 mmHg LV V1 mean: 53.4 cm/sec LV V1 VTI: 16.9 cm ECHO/Echo Complete W/ Contrast Interpretation Summary The study was technically difficult. Contrast injection was performed. Based upon the 2D echocardiographic and contrast enhanced images obtained there appears to be grossly normal left ventricular size, wall motion, and systolic function. The estimated ejection fraction is 55 %. Diastolic function is indeterminate. Ordering Physician: Stoney Soto Referring Physician: Gavin Raymundo Performed By: Laura Garibay RCS
--- NOTE | 2022-07-21 09:47 | PCM.CONS.GEN ---
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 Consult podiatry. Bone being sent for culture. Will order echo, repeat bcx tomorrow. No splinter hemorrhages on exam. Will follow, thank you, d/w nursing and wound care (4) MRSA bacteremia: HPI Consult Data Date of Consult: 07/21/22 HPI Narrative Reason for Consultation: bacteremia HPI Narrative: EUSEBIA HECTOR, is a 52 M with DM neuropathy, recurrent foot osteo, presented with 2-3 days not feeling well, dyspnea, fatgiue. No fever or chills. Follows at wound center for R foot ulcer. No cough, no n/v/d. Admitted with sepsis to ICU, started on vanc/zosyn. L foot this AM with chunks of bone extracted by wound care. Full ROS performed and neg except as noted above. [facility] Medical History Amputation of toe of left foot Cellulitis Charcot arthropathy of midfoot Chronic venous insufficiency DVT (deep venous thrombosis) History of esophageal disorder Hypertension KRYSTAL (obstructive sleep apnea) Osteoarthritis Tobacco abuse counseling Type 2 diabetes mellitus Venous insufficiency Home Medications Handicap Placard #1 ea 12/05/20 [Rx Last Taken Unknown] albuterol sulfate 90 mcg/actuation aerosol inhaler 1 - 2 puff inhalation Q6H PRN shortness of breath or wheezing #8.5 grams 04/28/22 [Rx Last Taken 07/18/22] blood sugar diagnostic (Blood Glucose Test strips) #100 ea 04/28/22 [Rx Last Taken Unknown] blood-glucose meter #1 ea 04/28/22 [Rx Last Taken Unknown] dulaglutide 3 mg/0.5 mL subcutaneous pen injector (Trulicity) 3 mg (0.5 mL) subcut TU diabetes #6 mL 04/28/22 [Rx Last Taken 07/14/22] lancets 32 gauge #100 ea 04/28/22 [Rx Last Taken Unknown] metformin 1,000 mg tablet 1,000 mg PO BID diabetes #180 tabs 04/28/22 [Rx Last Taken Unknown] miscellaneous medical supply (Blood Pressure Cuff) #1 ea 04/28/22 [Rx Last Taken Unknown] sitagliptin phosphate 100 mg tablet 100 mg PO DAILY diabetes #90 tabs 04/28/22 [Rx Last Taken Unknown] tadalafil 5 mg tablet 5 mg PO ONCE PRN sexual activity #14 tabs 05/06/22 [Rx Last Taken Unknown] lisinopril 20 mg tablet 20 mg PO DAILY BLOOD PRESSURE 07/20/22 [History Last Taken Unknown] Allergy/AdvReac Type Severity Reaction Status Date / Time ketorolac [From Toradol] AdvReac Upset Verified 04/28/22 08:07 Stomach NSAIDS (Non-Steroidal AdvReac Upset Verified 04/28/22 08:07 Anti-Inflamma Stomach Family History Mother Hypertension Diabetes Heart disease Sister Hypertension Diabetes Crohns disease Brother Diabetes Family History other Surgical History History of cholecystectomy History of esophageal surgery Status post amputation of right foot through metatarsal bone Social History (Updated 07/20/22 @ 18:[address] Missy Singh MD) household members: none Smoking Status: Current every day smoker tobacco type: cigarettes alcohol intake: never substance use type: does not use what type of physical activity do you participate in: walking frequency: daily Physical Exam Const alert, oriented x3 and no apparent distress HEENT normocephalic and head/scalp atraumatic Eyes PERRL and EOMs intact bilaterally Neck supple and No nodes Resp normal air movement and clear to auscultation bilaterally Cardio regular rate and regular rhythm GI soft to palpation, non-tender and non-distended Extremity Extremity Narrative: no spine or major joint pain/swelling/warmth General Extremity: edema Skin Skin Narrative: Feet wrapped, will review photos Neuro CN's II-XII intact bilaterally Lab / Micro Data Attestation: I reviewed the patient's lab results. Result Diagrams: 07/21/22 03:35 07/21/22 03:35 Labs: Laboratory Results - last 24 hr 07/20/22 13:30: WBC 13.7 H, RBC 5.08, Hgb 13.2, Hct 41.5, MCV 81.7, MCH 26.0 L, MCHC 31.8 L, RDW Std Deviation 43.2, RDW Coeff of Maria Fernanda 14.6, Plt Count 175, MPV 11.7, Immature Gran % (Auto) 1.500 H, Neut % (Auto) 90.4 H, Lymph % (Auto) 2.9 L, [place] % (Auto) 5.0, Eos % (Auto) 0.0, Baso % (Auto) 0.2, Absolute Neuts (auto) 12.4 H, Absolute Lymphs (auto) 0.40 L, Nucleated RBC % 0, Differential Comment SCANNED 07/20/22 13:30: Sodium 127 L, Potassium 3.3 L, Chloride 89 L, Carbon Dioxide 26.0, Anion Gap 12, BUN 11, Creatinine 1.29, Estim Creat Clear Calc 71.34, Est GFR (MDRD) Af Amer 75, Est GFR (MDRD) Non-Af 62, BUN/Creatinine Ratio 8.5 L, Glucose 342 H, Calcium 8.0 L, Troponin I High Sens 42 07/20/22 13:30: B-Natriuretic Peptide 274.6 H 07/20/22 13:30: D-Dimer Quant (PE/DVT) 2.83 H* 07/20/22 13:30: Magnesium 1.4 L 07/20/22 14:45: Lactic Acid 2.9 H* 07/20/22 18:10: Urine Color Yellow, Urine Clarity Clear, Urine pH 7.0, Ur Specific [place] 1.005, Urine Protein 100 H, Urine Glucose (UA) Normal, Urine Ketones Negative, Urine Occult Blood 25 H, Urine Nitrite Negative, Urine Bilirubin Negative, Urine Urobilinogen Normal, Ur Leukocyte Esterase 500 H, Urine RBC 0-5 SEEN, Urine WBC 10-25 SEEN, Ur Squamous Epith Cells 0 SEEN, Urine Bacteria 2+, Urine Mucus 0 SEEN 07/20/22 19:50: Lactic Acid 2.4 H* 07/20/22 22:18: POC Glucose 275 H 07/20/22 23:30: MRSA (PCR) Negative 07/21/22 03:35: Sodium 132 L, Potassium 3.6, Chloride 95 L, Carbon Dioxide 28.0, Anion Gap 9, BUN 15, Creatinine 1.14, Estim Creat Clear Calc 80.73, Est GFR (MDRD) Af Amer 87, Est GFR (MDRD) Non-Af 72, BUN/Creatinine Ratio 13.2, Glucose 293 H, Calcium 7.5 L, Magnesium 1.7, Total Bilirubin 0.90, AST 30, ALT 18, Alkaline Phosphatase 59, Total Protein 6.4, Albumin 1.7 L, Globulin 4.7 H, Albumin/Globulin Ratio 0.4 L 07/21/22 03:35: WBC 17.2 H, RBC 4.41 L, Hgb 11.6 L, Hct 36.4 L, MCV 82.5, MCH 26.3 L, MCHC 31.9 L, RDW Std Deviation 43.9, RDW Coeff of Maria Fernanda 14.7 H, Plt Count 116 L, MPV 10.8, Immature Gran % (Auto) 1.500 H, Neut % (Auto) 89.1 H, Lymph % (Auto) 3.0 L, [place] % (Auto) 6.2, Eos % (Auto) 0.0, Baso % (Auto) 0.2, Absolute Neuts (auto) 15.3 H, Absolute Lymphs (auto) 0.51 L, Nucleated RBC % 0, Differential Comment SCANNED 07/21/22 07:35: POC Glucose 269 H Micro: Microbiology 07/20/22 14:45 Blood Culture (Wb) - Left Hand Blood Culture - Preliminary 07/20/22 14:55 Blood Culture (Wb) - Anticubital Right Bacteria Detection (PCR) - Final Meth. resistant Staph. aureus 07/20/22 14:55 Blood Culture (Wb) - Anticubital Right Blood Culture - Preliminary 07/20/22 19:47 Mucosa - Nasopharyngeal Respiratory Panel (PCR) - Final 07/20/22 18:10 Urine, Random Legionella Antigen - Final 07/20/22 18:10 Urine, Random Streptococcus pneumoniae Antigen (M - Final 07/20/22 13:55 Nasal Secretion SARS-CoV-2 & FLU Antigen (Rapid) - Final Radiology Impression Chest X-Ray 07/20/22 14:05 IMPRESSION: No acute pulmonary process Electronically Signed: Dustin Mendenhall MD at 14:20 EST , Chest CTA 07/20/22 15:44 IMPRESSION: No evidence of acute pulmonary emboli to the segmental level. Few scattered small cavitary lesions throughout the lungs with surrounding groundglass opacities. Differential includes atypical infection, metastatic disease and other less likely etiologies. Moderate splenomegaly. Electronically Signed: Julio C Santiago MD at 17:52 EST ,
--- NOTE | 2022-07-21 10:00 | ART_ITS ---
Reason For Study: Ulcer Procedure A bilateral lower extremity continuous wave Doppler with analog waveform analysis,segmental pressures,and ankle brachial indexes without exercise. Left Segmental Pressures Left posterior tibial artery = 126mmHg. Left dorsalis pedis artery = 120mmHg. Left digit = 140 mmHg. The left dorsalis pedis waveforms are triphasic. The left posterior tibial artery waveforms are triphasic. Right Segmental Pressures Right brachial= 110mmHg. Right posterior tibial artery = 115mmHg. Right dorsalis pedis artery = 110mmHg. Right digit = 134 mmHg. The right dorsalis pedis waveforms are triphasic. The right posterior tibial artery waveforms are triphasic. Indices The right ankle brachial index by the dorsalis pedis is 1.00. The right ankle brachial index by the posterior tibial artery is 1.05. The right digital-brachial index is 1.22. The left ankle brachial index by the dorsalis pedis is 1.09. The left ankle brachial index by the posterior tibial artery is 1.15. The left digital-brachial index is 1.27. VL/Lower Ext Art Exam w/o Exercis Interpretation Summary Right KRIS 1.05, normal. TBI and Doppler/PVR waveforms of the right leg normal a t rest. Left KRIS 1.15, normal. TBI and Doppler/PVR waveforms of the left leg normal at rest. Ordering Physician: Eagle Babin Referring Physician: Gavin Raymundo Performed By: Bella Evans RVT
--- NOTE | 2022-07-21 11:10 | RAD_ITS ---
STUDY: X-RAY - RIGHT FOOT CLINICAL: Male, 52 years old. Infection TECHNIQUE: 3 view(s) of the foot. COMPARISON: 04/24/2022 FINDINGS: There is a stable Charcot deformity of the right foot. There is no acute fracture or dislocation. There is diffuse soft tissue swelling noted. There are no definite radiographic findings of osteomyelitis. There are no radiodense foreign bodies. RAD/Foot min 3 Views IMPRESSION: Stable cortical discontinuity of the right foot. No acute fracture or dislocation. Diffuse soft tissue swelling. Electronically Signed: Maciel Valencia MD at 9:45 EST ,
--- NOTE | 2022-07-21 11:20 | WOUNDNOTE ---
wound photo: left plantar foot
--- NOTE | 2022-07-21 11:20 | WOUNDNOTE ---
wound photo: right plantar foot
[2022-07-21 11:55] LABS: Bedside Glucose 316 mg/dL (74-106)
--- NOTE | 2022-07-21 12:00 | RAD_ITS ---
STUDY: X-RAY - LEFT FOOT CLINICAL: Male, 52 years old. Wound/infection TECHNIQUE: 3 view(s) of the foot. COMPARISON: 07/16/2020 FINDINGS: There has been previous amputation of the distal half of the fifth metatarsal as well as the phalanges. There is an old ununited fracture at the base of the fifth metatarsal. There is also been surgical amputation of the second third and fourth metatarsal heads. There is diffuse soft tissue swelling and subcutaneous emphysema is noted volar to the proximal phalanges of the second and third toes. There is irregularity in the proximal aspects of both second and third proximal phalanges suggesting osteomyelitis. No demonstrated acute fracture, degenerative arthrosis noted at all visualized joint spaces. Calcaneal heel spurs. Intratarsal joint space is fairly well-maintained. RAD/Foot min 3 Views IMPRESSION: Abnormal soft tissue swelling particularly over the metatarsals and phalanges with subcutaneous emphysema noted volar to the proximal phalanges of the second and third toes. There is irregularity in the proximal phalanges of the second and third toes suggesting osteomyelitis. No acute fracture, old ununited fracture in the proximal fifth metatarsal shaft. Previous amputation of the distal half of the fifth metatarsal and the phalanges Degenerative arthrosis Calcaneal spurs Electronically Signed: Dustin Mendenhall MD at 8:36 EST ,
--- NOTE | 2022-07-21 12:08 | CHAPLAIN ---
Type of Pastoral Visit _x__ Initial Visit ___ Follow-up Visit ___ On-call Visit ___ General Patient Visit ___ Spiritual Assessment ___ Family Conference ___ Bereavement ___ Rapid Response ___ Code Blue ___ Other (describe below) Pastoral Care Referral From _x__ Patient ___ Family ___ Nurse ___ Physician ___ Information Security Specialist ___ Plywood Factory Worker ___ Other (describe below) Sacrament/Intervention _x__ Active listening ___ Anointing ___ Taoism ___ Bereavement ___ Communion ___ Cami exploration ___ ___ Life review _x__ Prayer ___ Reconciliation ___ Sacrament of Sick ___ Supportive presence ___ Wedding ___ Other (describe below) Pastoral Comments patient has been seen before in previous admissions; pt gives report of why he came to ED and that I couldn't get my breathe; pt states that he just wants to get well again and he is willing to stay as long as necessary until that happens; pt talked about his interests of football and racing which are the activities that he focuses on these days; pt welcomes the support of prayer and presence
--- NOTE | 2022-07-21 12:31 | MRI_ITS ---
EXAM: MR LEFT LOWER EXTREMITY WITHOUT INTRAVENOUS CONTRAST, FOOT CLINICAL INDICATION: foot infection -- new left forefoot wound, plantar area of distal 2nd MT TECHNIQUE: Multiplanar and multisequence MR images of the left foot without intravenous contrast. This report was created using [employer] report generation technology. COMPARISON: 07/21/2022) FINDINGS: Varying degrees of low T1 signal involving the second and third metatarsals. Probably reactive marrow changes involving the fourth metatarsals. No other bone marrow signal alterations. Remote surgical absence of the distal portion of the second and fifth metatarsals. Bones/joint loss involving the second and third metatarsophalangeal joints is better seen radiographically. Extensor tendon tenosynovitis involving the fourth digit. No other tendon pathology. Diffuse subcutaneous edema. Relatively large fluid collection along the plantar aspect of the fourth digit on the transaxial images; this measures approximately 2.3 x 1.3 cm. No other masses or fluid collections. Large soft tissue defect along the plantar aspect of the medial forefoot. MRI/Lower Ext/No Jt/w/o IMPRESSION: 1. Second and third metatarsal osteomyelitis. 2. Relatively large fluid collection along the plantar aspect of the fourth digit on the transaxial images; this measures approximately 2.3 x 1.3 cm. This may be postsurgical, traumatic or potentially infectious also. Electronically Signed: Price Lopes MD at 1:40 EST ,
--- NOTE | 2022-07-21 13:01 | CON.PCM_ITS ---
Assessment & Plan Assessment/Plan (1) Non-pressure chronic ulcer of other part of right foot with fat layer exposed: PLAN: Exam performed. Radiographs ordered and reviewed. Right foot appears to be acutely infected left foot appears to demonstrate chronic ulceration probes down to level of bone. Due to a leukocytosis of 17 and some vital instability I have ordered MRIs of bilateral feet to rule out deep abscess or osteomyelitis. Patient had positive MRSA cultures ID is on board patient receiving Vanco Zosyn. We will plan for OR debridement pending MRI results tomorrow on 07/22/2022. Patient should remain nonweightbearing to bilateral lower extremities. Dressings were changed today redressed with Betadine paint DSD compression. Arterial studies were ordered demonstrated normal normal blood flow to bilateral lower extremity. Will continue to follow closely. (2) Non-pressure chronic ulcer of other part of left foot with necrosis of bone: (3) Osteomyelitis of right foot: (4) Charcot's joint of right foot: (5) Type 2 diabetes mellitus with diabetic polyneuropathy: HPI Consult Data Date of Consult: 07/21/22 HPI Narrative HPI Narrative: EUSEBIA HECTOR, is a 52 M who presents with a chronic wound to his right foot secondary to diabetic neuropathy and Charcot foot with a history of osteomyelitis to the site and a newly diagnosed noticed left diabetic foot ulceration. Patient has history of left fifth digit amputation and multiple I&D's on that site as well. Patient's been following up with Dr. Acevedo in the wound care center but noticed some difficulty breathing over the past 3 days present to the emergency room. Noted to have some tachypnea, leukocytosis at that time and was admitted for further work-up. Current patient denies any constitutional symptoms or pain to either ulceration sites. Patient maintains a nonweightbearing status to his right foot assisted by knee scooter has been ambulating fully on his left foot as he did not know he had a wound to that site. No other complaints. [facility]LY [facility] Medical History Amputation of toe of left foot Cellulitis Charcot arthropathy of midfoot Chronic venous insufficiency DVT (deep venous thrombosis) History of esophageal disorder Hypertension KRYSTAL (obstructive sleep apnea) Osteoarthritis Tobacco abuse counseling Type 2 diabetes mellitus Venous insufficiency Home Medications Handicap Manolo #1 ea 12/05/20 [Rx Last Taken Unknown] albuterol sulfate 90 mcg/actuation aerosol inhaler 1 - 2 puff inhalation Q6H PRN shortness of breath or wheezing #8.5 grams 04/28/22 [Rx Last Taken 07/18/22] blood sugar diagnostic (Blood Glucose Test strips) #100 ea 04/28/22 [Rx Last Taken Unknown] blood-glucose meter #1 ea 04/28/22 [Rx Last Taken Unknown] dulaglutide 3 mg/0.5 mL subcutaneous pen injector (Trulicity) 3 mg (0.5 mL) subcut TU diabetes #6 mL 04/28/22 [Rx Last Taken 07/14/22] lancets 32 gauge #100 ea 04/28/22 [Rx Last Taken Unknown] metformin 1,000 mg tablet 1,000 mg PO BID diabetes #180 tabs 04/28/22 [Rx Last Taken Unknown] miscellaneous medical supply (Blood Pressure Cuff) #1 ea 04/28/22 [Rx Last Taken Unknown] sitagliptin phosphate 100 mg tablet 100 mg PO DAILY diabetes #90 tabs 04/28/22 [Rx Last Taken Unknown] tadalafil 5 mg tablet 5 mg PO ONCE PRN sexual activity #14 tabs 05/06/22 [Rx Last Taken Unknown] lisinopril 20 mg tablet 20 mg PO DAILY BLOOD PRESSURE 07/20/22 [History Last Taken Unknown] Allergy/AdvReac Type Severity Reaction Status Date / Time ketorolac [From Toradol] AdvReac Upset Verified 04/28/22 08:07 Stomach NSAIDS (Non-Steroidal AdvReac Upset Verified 04/28/22 08:07 Anti-Inflamma Stomach Family History Mother Hypertension Diabetes Heart disease Sister Hypertension Diabetes Crohns disease Brother Diabetes Family History other Surgical History History of cholecystectomy History of esophageal surgery Status post amputation of right foot through metatarsal bone Social History household members: none Smoking Status: Current every day smoker tobacco type: cigarettes alcohol intake: never substance use type: does not use what type of physical activity do you participate in: walking frequency: daily ROS Constitutional Constitutional: Reports lethargy; Denies daytime sleepiness or malaise Eyes Eyes: Denies blind spots, decreased night vision or excessive blinking ENT HEENT: Denies mouth pain, odynophagia or tongue swelling Cardiovascular Cardiovascular: Reports dyspnea on exertion; Denies abdominal pain or claudication Respiratory/Chest Respiratory/Chest: Reports dyspnea and dyspnea on exertion; Denies nail bed cyanosis Gastrointestinal Gastrointestinal: Denies change in bowel habits, diarrhea or dry heaves Musculoskeletal Musculoskeletal: Denies back pain, loss of height or stiffness Physical Exam Narrative Patient AOx3. Vascular: Dorsalis pedis posterior tibial pulses palpable 2 out of 4 to bilateral lower extremity. There is diffuse lymphedema noted to bilateral lower extremity. Dermatologic: Full-thickness wound noted to the plantar left second metatarsop halangeal joint probes down to level of bone. Some edema to the periwound area no increase in warmth. Right plantar midfoot wound noted at the apex of Charcot deformity creating a plantar convexity. This wound is superficial in nature and very small but there is significant edema and erythema to the periwound area along with warmth. No deep probing to the side. No evidence of fluctuance or crepitus on exam. No other gross signs of infection. Neurologic: Light touch protective sensation absent to bilateral feet. Musculoskeletal: Charcot foot creating a plantar midfoot convexity to right lower extremity. Absent left fifth digit. Muscular strength full to bilateral lower extremity compartments. No signs of DVT Lab / Micro Data Result Diagrams: 07/21/22 03:35 07/21/22 03:35 Labs: Laboratory Results - last 24 hr 07/20/22 13:30: WBC 13.7 H, RBC 5.08, Hgb 13.2, Hct 41.5, MCV 81.7, MCH 26.0 L, MCHC 31.8 L, RDW Std Deviation 43.2, RDW Coeff of Maria Fernanda 14.6, Plt Count 175, MPV 11.7, Immature Gran % (Auto) 1.500 H, Neut % (Auto) 90.4 H, Lymph % (Auto) 2.9 L , [place] % (Auto) 5.0, Eos % (Auto) 0.0, Baso % (Auto) 0.2, Absolute Neuts (auto) 12.4 H, Absolute Lymphs (auto) 0.40 L, Nucleated RBC % 0, Differential Comment SCANNED 07/20/22 13:30: Sodium 127 L, Potassium 3.3 L, Chloride 89 L, Carbon Dioxide 26.0, Anion Gap 12, BUN 11, Creatinine 1.29, Estim Creat Clear Calc 71.34, Est GFR (MDRD) Af Amer 75, Est GFR (MDRD) Non-Af 62, BUN/Creatinine Ratio 8.5 L, Glucose 342 H, Calcium 8.0 L, Troponin I High Sens 42 07/20/22 13:30: B-Natriuretic Peptide 274.6 H 07/20/22 13:30: D-Dimer Quant (PE/DVT) 2.83 H* 07/20/22 13:30: Magnesium 1.4 L 07/20/22 14:45: Lactic Acid 2.9 H* 07/20/22 18:10: Urine Color Yellow, Urine Clarity Clear, Urine pH 7.0, Ur Specific [place] 1.005, Urine Protein 100 H, Urine Glucose (UA) Normal, Urine Ketones Negative, Urine Occult Blood 25 H, Urine Nitrite Negative, Urine Bilirubin Negative, Urine Urobilinogen Normal, Ur Leukocyte Esterase 500 H, Urine RBC 0-5 SEEN, Urine WBC 10-25 SEEN, Ur Squamous Epith Cells 0 SEEN, Urine Bacteria 2+, Urine Mucus 0 SEEN 07/20/22 19:50: Lactic Acid 2.4 H* 07/20/22 22:18: POC Glucose 275 H 07/20/22 23:30: MRSA (PCR) Negative 07/21/22 03:35: Sodium 132 L, Potassium 3.6, Chloride 95 L, Carbon Dioxide 28.0, Anion Gap 9, BUN 15, Creatinine 1.14, Estim Creat Clear Calc 80.73, Est GFR (MDRD) Af Amer 87, Est GFR (MDRD) Non-Af 72, BUN/Creatinine Ratio 13.2, Glucose 293 H, Calcium 7.5 L, Magnesium 1.7, Total Bilirubin 0.90, AST 30, ALT 18, Alkaline Phosphatase 59, Total Protein 6.4, Albumin 1.7 L, Globulin 4.7 H, Albumin/Globulin Ratio 0.4 L 07/21/22 03:35: WBC 17.2 H, RBC 4.41 L, Hgb 11.6 L, Hct 36.4 L, MCV 82.5, MCH 26.3 L, MCHC 31.9 L, RDW Std Deviation 43.9, RDW Coeff of Maria Fernanda 14.7 H, Plt Count 116 L, MPV 10.8, Immature Gran % (Auto) 1.500 H, Neut % (Auto) 89.1 H, Lymph % (Auto) 3.0 L, [place] % (Auto) 6.2, Eos % (Auto) 0.0, Baso % (Auto) 0.2, Absolute Neuts (auto) 15.3 H, Absolute Lymphs (auto) 0.51 L, Nucleated RBC % 0, Differential Comment SCANNED 07/21/22 07:35: POC Glucose 269 H 07/21/22 11:34: POC Glucose 316 H Micro: Microbiology 07/20/22 18:10 Urine, Catheterized Urine Culture - Preliminary GNR lactose element winding machine tender 07/20/22 14:45 Blood Culture (Wb) - Left Hand Blood Culture - Preliminary 07/20/22 14:55 Blood Culture (Wb) - Anticubital Right Bacteria Detection (PCR) - Final Meth. resistant Staph. aureus 07/20/22 14:55 Blood Culture (Wb) - Anticubital Right Blood Culture - Preliminary 07/20/22 19:47 Mucosa - Nasopharyngeal Respiratory Panel (PCR) - Final 07/20/22 18:10 Urine, Random Legionella Antigen - Final 07/20/22 18:10 Urine, Random Streptococcus pneumoniae Antigen (M - Final 07/20/22 13:55 Nasal Secretion SARS-CoV-2 & FLU Antigen (Rapid) - Final Radiology Impression Chest X-Ray 07/20/22 14:05 IMPRESSION: No acute pulmonary process Electronically Signed: Dustin Mendenhall MD at 14:20 EST , Chest CTA 07/20/22 15:44 IMPRESSION: No evidence of acute pulmonary emboli to the segmental level. Few scattered small cavitary lesions throughout the lungs with surrounding groundglass opacities. Differential includes atypical infection, metastatic disease and other less likely etiologies. Moderate splenomegaly. Electronically Signed: Julio C Santiago MD at 17:52 EST ,
--- NOTE | 2022-07-21 14:23 | PCM.PN.HOSP ---
Subjective Subjective Follow-up for the patient presented with sepsis Probably from osteomyelitis with history of osteomyelitis and shortness of breath. Objective Data Objective Data Vital Signs: Vital Signs Temp Pulse Resp BP Pulse Ox O2 Del Method O2 Flow Rate 97.6 F L 99 25 H 103/60 94 Nasal Cannula 2 07/21/22 13:00 07/21/22 13:00 07/21/22 13:00 07/21/22 13:00 07/21/22 13:00 07/21/22 13:22 07/21/22 13:22 Oxygen Flow Rate (L/min) 2 Oxygen Delivery Method Nasal Cannula Weight: 390 lb 10.546 oz Body Mass Index (BMI) 53.7 Intake & Output: Intake and Output for Last 24 Hours 07/19/22 07/20/22 07/21/22 23:59 23:59 23:59 Intake Total 1744 / 1774 3396.25 / 3396.25 Output Total 2150 / 2150 Balance 1744 / 1774 1246.25 / 1246.25 Lab / Micro Data Result Diagrams: 07/21/22 03:35 07/21/22 03:35 Labs: Laboratory Results - last 24 hr 07/20/22 13:30: WBC 13.7 H, RBC 5.08, Hgb 13.2, Hct 41.5, MCV 81.7, MCH 26.0 L, MCHC 31.8 L, RDW Std Deviation 43.2, RDW Coeff of Maria Fernanda 14.6, Plt Count 175, MPV 11.7, Immature Gran % (Auto) 1.500 H, Neut % (Auto) 90.4 H, Lymph % (Auto) 2.9 L, [place] % (Auto) 5.0, Eos % (Auto) 0.0, Baso % (Auto) 0.2, Absolute Neuts (auto) 12.4 H, Absolute Lymphs (auto) 0.40 L, Nucleated RBC % 0, Differential Comment SCANNED 07/20/22 13:30: Sodium 127 L, Potassium 3.3 L, Chloride 89 L, Carbon Dioxide 26.0, Anion Gap 12, BUN 11, Creatinine 1.29, Estim Creat Clear Calc 71.34, Est GFR (MDRD) Af Amer 75, Est GFR (MDRD) Non-Af 62, BUN/Creatinine Ratio 8.5 L, Glucose 342 H, Calcium 8.0 L, Troponin I High Sens 42 07/20/22 13:30: B-Natriuretic Peptide 274.6 H 07/20/22 13:30: D-Dimer Quant (PE/DVT) 2.83 H* 07/20/22 13:30: Magnesium 1.4 L 07/20/22 14:45: Lactic Acid 2.9 H* 07/20/22 18:10: Urine Color Yellow, Urine Clarity Clear, Urine pH 7.0, Ur Specific [place] 1.005, Urine Protein 100 H, Urine Glucose (UA) Normal, Urine Ketones Negative, Urine Occult Blood 25 H, Urine Nitrite Negative, Urine Bilirubin Negative, Urine Urobilinogen Normal, Ur Leukocyte Esterase 500 H, Urine RBC 0-5 SEEN, Urine WBC 10-25 SEEN, Ur Squamous Epith Cells 0 SEEN, Urine Bacteria 2+, Urine Mucus 0 SEEN 07/20/22 19:50: Lactic Acid 2.4 H* 07/20/22 22:18: POC Glucose 275 H 07/20/22 23:30: MRSA (PCR) Negative 07/21/22 03:35: Sodium 132 L, Potassium 3.6, Chloride 95 L, Carbon Dioxide 28.0, Anion Gap 9, BUN 15, Creatinine 1.14, Estim Creat Clear Calc 80.73, Est GFR (MDRD) Af Amer 87, Est GFR (MDRD) Non-Af 72, BUN/Creatinine Ratio 13.2, Glucose 293 H, Calcium 7.5 L, Magnesium 1.7, Total Bilirubin 0.90, AST 30, ALT 18, Alkaline Phosphatase 59, Total Protein 6.4, Albumin 1.7 L, Globulin 4.7 H, Albumin/Globulin Ratio 0.4 L 07/21/22 03:35: WBC 17.2 H, RBC 4.41 L, Hgb 11.6 L, Hct 36.4 L, MCV 82.5, MCH 26.3 L, MCHC 31.9 L, RDW Std Deviation 43.9, RDW Coeff of Maria Fernanda 14.7 H, Plt Count 116 L, MPV 10.8, Immature Gran % (Auto) 1.500 H, Neut % (Auto) 89.1 H, Lymph % (Auto) 3.0 L, [place] % (Auto) 6.2, Eos % (Auto) 0.0, Baso % (Auto) 0.2, Absolute Neuts (auto) 15.3 H, Absolute Lymphs (auto) 0.51 L, Nucleated RBC % 0, Differential Comment SCANNED 07/21/22 07:35: POC Glucose 269 H 07/21/22 11:34: POC Glucose 316 H Micro: Microbiology 07/20/22 18:10 Urine, Catheterized Urine Culture - Preliminary GNR lactose asset protection officer 07/20/22 14:45 Blood Culture (Wb) - Left Hand Blood Culture - Preliminary 07/20/22 14:55 Blood Culture (Wb) - Anticubital Right Bacteria Detection (PCR) - Final Meth. resistant Staph. aureus 07/20/22 14:55 Blood Culture (Wb) - Anticubital Right Blood Culture - Preliminary 07/20/22 19:47 Mucosa - Nasopharyngeal Respiratory Panel (PCR) - Final 07/20/22 18:10 Urine, Random Legionella Antigen - Final 07/20/22 18:10 Urine, Random Streptococcus pneumoniae Antigen (M - Final 07/20/22 13:55 Nasal Secretion SARS-CoV-2 & FLU Antigen (Rapid) - Final Radiography Diagnostic Testing: Radiology Impression Chest CTA 07/20/22 15:44 IMPRESSION: No evidence of acute pulmonary emboli to the segmental level. Few scattered small cavitary lesions throughout the lungs with surrounding groundglass opacities. Differential includes atypical infection, metastatic disease and other less likely etiologies. Moderate splenomegaly. Electronically Signed: Julio C Santiago MD at 17:52 EST , Echocardiogram 07/21/22 09:17 Interpretation Summary The study was technically difficult. Contrast injection was performed. Based upon the 2D echocardiographic and contrast enhanced images obtained there appears to be grossly normal left ventricular size, wall motion, and systolic function. The estimated ejection fraction is 55 %. Diastolic function is indeterminate. Ordering Physician: Stoney Soto Referring Physician: Gavin Raymundo Performed By: Larua Garibay RCS Physical Exam Narrative Physical exam General: Alert, Oriented x3, Cooperative, BMI 54.5 kg/m?. Patient looks sick HEENT: Atraumatic, PERRLA, EOMI, Normocephalic Oral: Deep oropharyngeal structures could not be seen. No Gingival or Mucosal Lesions/ Ulcerations Neck: Supple, No JVD, Negative Carotid Bruits Chest wall/lungs: Mild dyspnea at rest. No chest wall tenderness. Air entry diminished in bilateral lung bases. Bilateral expiratory rhonchi and wheezing Cardiovascular: Regular rate, Regular Rhythm, Normal S1, Normal S2, No murmurs Abdomen: Bowel Sounds Present, Soft, Non Tender, Non-Distended : No renal angle tenderness. No suprapubic tenderness. Extremities: Bilateral below-knee pitting and nonpitting edema. Capillary Refill Less than 3 Seconds Skin:Ulcer over both feet. Necrotic bone was extruded from the left foot brown color. Right foot chronic ulcer. Venous dermatitis changes. Musculoskeletal: Right, forefoot metatarsal amputation. ROM restricted at hip knee and ankle level. Muscle strength 4/5. Neurological: Cranial nerves II-XII grossly intact, DTR 2+/4, bilateral lower legs neuropathy Psych/Mental Status: Flat affect. Assessment & Plan Assessment/Plan (1) Hypoxia: PLAN: Plan The patient is a 52 y/o male was admitted in ICU through ED for 2 days of increasing dyspnea, worse with any exertion attempt. #1. Sepsis with secondary MRSA bacteremia most likely due to osteomyelitis: Patient is being admitted in ICU. The patient presented with sepsis, most likely due to osteomyelitis with acute sepsis-related organ dysfunctevidenced by lactic acidosis. Patient had IV fluid rehydration. Patient maintained blood pressure. Podiatry and ID consulted. CT chest reviewed and shows multiple small cavitary lesions throughout lungs suggestive of septic emboli. The patient is being comanaged with sales secretary and ID. Electrical Maintenance Man recommended repeat chest CT in 6 to 8 weeks or follow-up for reevaluation. 2D echo shows EF 55. Grossly normal LV size, wall motion and systolic function although study was technically difficult. 2. History of chronic smoking/tobacco, nicotine dependency without diagnosis of COPD: Patient has prolonged history of smoking and still continues. Does not have documented diagnosis of COPD. Patient does not use oxygen at home. Bronchodilator as needed. Electrical Maintenance Man recommended discontinuation of his scheduled vaginal cytosol. On nicotine patch. #3. Hypovolemic hypotonic hyponatremia, mild: Admission sodium 127, prior baselines appear in the normal range primarily, chloride also decreased to 89, repeat sodium shows improvement 132.. #4. Hypokalemia: Admission K+ 3.3, repeat potassium 3.6. Serum magnesium 1.7. #5. Hx Charcot arthropathy with Hx osteomyelitis, Hx nonpressure chronic ulcer right midfoot: Patient had right foot transmetatarsal amputation. Patient follows Dr. Acevedo as an outpatient wound center with last visit on 07/16/2022 and had office local debridement and was advised nonweightbearing with use of wheelchair and orthotics. Fabrication Machine Operator and wound care nurses consulted. 6 hypertension: Continue home regimen including lisinopril with further adjustments as needed pending blood pressure trend, PRN hydralazine. 7. Hyperlipidemia: Not on statin therapy per current list, encourage continued outpatient follow-up. 8. Diabetes mellitus type II: Hold oral home regimen, ADA diet, accu checks w/ ISS. 9.. Morbid Obesity: Weight loss and lifestyle changes encouraged. 10. Bilateral lower extremity chronic venous stasis disease: We will maintain on low-dose aspirin, encourage continued hypertensive, hyperlipidemic and DM control. #11. GERD: On Protonix #12 KRYSTAL: CPAP nightly. #13 DVT prophylaxis: SCDs, Lovenox while awaiting pulmonary and ID assessment, may need to hold for possible intervention. CODE status: Patient is does not have healthcare power of staffing operations manager nor living will in place. Discussed CODE status at length including difference between FULL code, DNR-CCA and DNR-CC status. Following discussions about the differences in these status, requested Full Code status. Total time of the visit including total time spent in counseling or coordination of care, (more than 50% of the total time, spent in obtaining medical information from nurses and other ancillary care providers,explaining to the patient about labs, imaging, diagnosis and management of active complex medical conditions), , review of labs and imaging is 60 minutes Charges/Coding Visit Charges Inpatient E&M: 79135 Subs Hosp L3
--- NOTE | 2022-07-21 15:21 | MRI_ITS ---
EXAM: MR RIGHT LOWER EXTREMITY WITHOUT INTRAVENOUS CONTRAST, FOOT CLINICAL INDICATION: RIGHT MIDFOOT WOUND TECHNIQUE: Multiplanar and multisequence MR images of the right foot without intravenous contrast. This report was created using [employer] report generation technology. COMPARISON: 07/21/2022 FINDINGS: ARTIFACTS: Significant motion artifact limits assessment. LIGAMENTS: Unremarkable. TENDONS: Unremarkable. FLUID: Unremarkable. No masses, free fluid or fluid collection. PLANTAR FASCIA: Visualized portions are intact. BONES/JOINTS: Remote surgical absence of the second metatarsal and phalanges at the majority of the fifth metatarsal and phalanges. Extensive bone marrow signal alteration involving the-midfoot. This could be degenerative or infectious. Normal forefoot alignment. No fracture. No joint effusion. No concerning marrow signal alterations on T1-weighted imaging. OTHER SOFT TISSUES: Plantar aponeurosis and tendons are unremarkable. Large and deep chronic appearing soft tissue defect along the plantar aspect of the midfoot/hindfoot. MRI/Lower Ext/No Jt/w/o IMPRESSION: 1. No drainable fluid collections. 2. 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 A Electronically Signed: Price Lopes MD at 1:49 EST ,
[2022-07-21] MEDS: Juven (unflavored) Packet 1 PACKET PO (16:46)
[2022-07-21 17:10] LABS: Bedside Glucose 290 mg/dL (74-106)
--- NOTE | 2022-07-21 17:23 | CASEMGMT ---
ASHLEY PAZ DC Planning Assessment: Face to Face with patient for initial transition planning/care coordination assessment. Pt alert and oriented x4, sitting up in bed and agreeable to participating in assessment. ASHLEY PAZ introduced self and role at [facility], pt voices understanding. Care providers, pharmacy, and demographics verified. Admitting Dx: Sepsis d/t osteomyelitis with MRSA bacteremia and pneumonic spread PCP: Zackary Specialists: Curtis (podiatry), also is seen at [facility] every 3 weeks or as needed Preferred Pharmacy: [facility] Insurance: Visible Measures Prescription Benefit: Yes Living Will/HPOA: No/No LNOK: Darrell Boyer, brother; Shanae Hinton, sister Living Arrangements: Pt lives alone in a single story apartment with no steps to enter. Pt is independent with ADLs and is requesting assistance with household tasks. Transportation: Pt does not drive. [facility] to transport him to appointments. DME: shower chair, raised toilet seat, grab bars, hand held shower, walker, and knee scooter. Pt states he was to have a Cpap/Bipap but states it was delivered to his old address approximately four years ago and he was not able to retrieve it. Pt has a kotlik boot on order through [employer] that he was to pickers material handlers today. Pt does not have a glucometer. States he came up missing when he moved and he is not interested in obtaining a new one. SNF: No previous stays HHC: Currently receiving SN visits 3x/week from [facility] to check his feet. States he would like to receive PACKAGING MACHINE OPERATOR services for household task assistance. Plan: TBD Pt is scheduled for OR tomorrow 07/22/22 pending MRI results and is to be non-weight bearing on bilat lower extremities at this time. Pt denied having a wheelchair at home and does live alone. Pt states he has administered IV antibiotics before to his brother and is familiar with these if needed at discharge. When discussing previous SNF stays, pt states he would consider going to the [facility] but not to [facility] or [facility]. Will continue to follow and assist with discharge planning needs following OR. Francisco Javier Carrero RN CM
[2022-07-21] MEDS: 0.9% Saline Lock 10 ML Syringe IV (21:44)
[2022-07-21 21:55] LABS: Bedside Glucose 247 mg/dL (74-106)
[2022-07-21 21:57] LABS: Vancomycin, Trough Level 17.4 ug/mL (5.0-15.0)
--- NOTE | 2022-07-21 23:59 | PHA.PHARE_ITS ---
Consult Pharmacy has been consulted to manage selected antiobiotic: Vancomycin Type of Consult: Follow-up Prior Doses of Antibiotics Received/Current Regimen: Medications Vancomycin HCl 1,500 mg/ (Sodium Chloride) 530 mls @ 250 mls/hr IV Q8H BLAIR Last Admin: 07/21/22 22:27 Dose: 250 mls/hr Labs: Sodium 132 mmol/L (136-145) L 07/21/22 03:35 Potassium 3.6 mmol/L (3.5-5.1) 07/21/22 03:35 Chloride 95 mmol/L (98-107) L 07/21/22 03:35 Carbon Dioxide 28.0 mmol/L (21.0-32.0) 07/21/22 03:35 Anion Gap 9 (5-15) 07/21/22 03:35 BUN 15 mg/dL (7-18) 07/21/22 03:35 Creatinine 1.14 mg/dL (0.70-1.30) 07/21/22 03:35 Est GFR (MDRD) Af Amer 87 mL/min (>60) 07/21/22 03:35 Est GFR (MDRD) Non-Af 72 mL/min (>60) 07/21/22 03:35 BUN/Creatinine Ratio 13.2 RATIO (10-20) 07/21/22 03:35 Glucose 293 mg/dL (74-106) H 07/21/22 03:35 Vancomycin Trough 17.4 ug/mL (5.0-15.0) H 07/21/22 21:30 Microbiology: Microbiology 07/20/22 18:10 Urine, Catheterized Urine Culture - Preliminary GNR lactose branch retail executive 07/20/22 14:45 Blood Culture (Wb) - Left Hand Blood Culture - Preliminary 07/20/22 14:55 Blood Culture (Wb) - Anticubital Right Bacteria Detection (PCR) - Final Meth. resistant Staph. aureus 07/20/22 14:55 Blood Culture (Wb) - Anticubital Right Blood Culture - Preliminary 07/20/22 19:47 Mucosa - Nasopharyngeal Respiratory Panel (PCR) - Final 07/20/22 18:10 Urine, Random Legionella Antigen - Final 07/20/22 18:10 Urine, Random Streptococcus pneumoniae Antigen (M - Final 07/20/22 13:55 Nasal Secretion SARS-CoV-2 & FLU Antigen (Rapid) - Final Weight used for dosin.2 kg Estimated Creatinine Clearance: >120 Goal Trough: 15-20 mcg/mL Pharmacy Plan for Drug Dosing: Vancomycin trough level of 17.4 was within the target range of 15-20. Will continue dosing at 1500mg q8h, and draw another trough level in two days. Pharmacy Service will continue to monitor and adjust dosing as required. Follow-Up Labs: Trough Vancomycin Labs to be done on [date and time ordered]: 07/23/22 @4838
[2022-07-22] VITALS (11 sets, daily range): BP systolic 88–128; BP diastolic 38–74; PULSE 91–106; RESP 16–22; TEMP 36.1–37; O2SAT 92–97; BMI 55.0
--- NOTE | 2022-07-22 | BON_PTH ---
PATIENT: EUSEBIA HECTOR LOC: ICU U#:[id number] AGE/SX: 52/M ROOM: [place] [address] RE07/20/[address]: Dr. Sweetie Rutledge MD : 1970 BED: 1 DIS: 08/01/2022 SPEC #: [id number] RECD: 07/23/22 09:03 STATUS: CHRISSY REQ #: [id number] VALENTINA: 07/22/22 00:[address]: Eagle Babin DEPT: SURGICAL PATHOLOGY RECD BY: Dannie Dean ENTERED: 07/23/22 12:31 SP TYPE: Bone OTHR DR: MD Dr. Joseph Sadler DO Dr. Daniel Bullard, DPM MD Dr. Karen Gaffney MD Dr. Prakash Chand, MD Dr. Robert Leininger, MD Tissues: A - Bone of foot, NOS B - Bone of foot, NOS Procedures: Decalcification bone/plaque Surgery Specimen Level V Comments: @ Ordering doctor for DEC edited from to @ by LYNN at 07/23/22 1525 @ Ordering doctor for SUIII edited from to @ by LYNN at 07/23/22 1525 @ Submitting doctor edited from to DR.DBULLA Cora BAILEY at 07/23/22 1525 HEADER OPERATION: Foot wound debridement PRE-OP DIAGNOSIS: Sepsis with secondary MRSA bacteremia most likely due to osteomyelitis TISSUE SUBMITTED: A ? Left foot bone, B ? Right foot bone MICROSCOPIC DIAGNOSIS A. Bone of left foot, bone biopsy: Consistent with acute osteomyelitis. B. Right foot bone, bone biopsy: Chronic reparative and reactive change. AM:marely 07/29/2022 MICROSCOPIC DESCRIPTION Slides are reviewed. GROSS DESCRIPTION A - Received in fixative is one container labeled with the patient's name and designated left foot bone. The specimen consists of a single irregular fragment of calderon bone measuring 0.6 x 0.5 x 0.2 cm. The specimen is totally submitted in one cassette after decalcification. B - Received in fixative is one container labeled with the patient's name and designated right foot bone. The specimen consists of a single irregular fragment of calderon bone measuring 0.5 x 0.3 x 0.2 cm. The specimen is totally submitted in one cassette after decalcification. / AM:marely 07/23/2022 TC:2 CPT: 38541 x2, 58108 x2
[2022-07-22] MEDS: Morphine 2 MG/ML Syringe IV (02:12)
[2022-07-22] MEDS: 0.9% Saline Lock 10 ML Syringe IV ×2 (02:13→21:24)
[2022-07-22 03:12] LABS: Absolute Lymphocyte Count 0.52 X10^3/uL (0.83-4.51); Absolute Neutrophil Count 13.9 X10^3/uL (2.0-7.7); Basophil# 0.03 X10^3/uL; Basophil% 0.2 % (0-1); Eosinophil# 0.02 X10^3/uL; Eosinophils% 0.1 % (0-5); Hematocrit 36.7 % (40-54); Hemoglobin 11.5 g/dL (13.0-16.5); Lymphocyte # 0.52 X10^3/ul (0.83-4.51); Lymphocyte % 3.3 % (19-41); Mean Corp Hgb Conc 31.3 g/dL (32-36); Mean Platelet Vol. 11.9 fl (6.2-12.0); Monocyte# 0.85 X10^3/uL; Monocyte% 5.5 % (0-10); NRBC Flagged by Analyzer 0 % (0-5); Neutrophil # 13.92 X10^3/uL (2.7-7.7); Neutrophil % 89.5 % (47-70); POSITIVE DIFFERENTIAL YES; Platelet Count 101 K/mm3 (150-450); RBC Distribution Width CV 15.1 % (11.6-14.6); RBC Distribution Width SD 45.5 fl (35.1-43.9); Red Blood Count 4.42 M/mm3 (4.6-6.2); White Blood Count 15.6 K/mm3 (4.4-11.0)
[2022-07-22 03:15] LABS: Differential Indicated SCAN CRITERIA MET
[2022-07-22 03:35] LABS: Anisocytosis 1+; Platelet Estimate SLT DEC (ADEQ)
[2022-07-22 04:02] LABS: Anion Gap 7 (5-15); BUN 34 mg/dL (7-18); BUN/Creat Ratio 20.1 RATIO (10-20); Calcium,Total 7.6 mg/dL (8.5-10.1); Chloride 98 mmol/L (98-107); Creatinine, Serum 1.69 mg/dL (0.70-1.30); EST Glomerular Filtration Rate 46 mL/min (>60); Est Glom Filt Rate - Afr Amer 55 mL/min (>60); Estimated Creatinine Clearance 54.46 ml/min; Glucose 235 mg/dL (74-106); Potassium 3.5 mmol/L (3.5-5.1); Sodium Level 134 mmol/L (136-145)
--- NOTE | 2022-07-22 06:57 | PN.CC_ITS ---
Assessment & Plan Assessment/Plan (1) Sepsis: PLAN: Plan RECOMMENDATIONS: 1. Antimicrobials per infectious diseases. 2. Surgical intervention per podiatry. 3. Continue local wound care. 4. Continue appropriate DVT prophylaxis. 5. Wean supplemental oxygen to maintain saturations at or above 90%. 6. Encourage incentive spirometer use and mobilize patient as tolerated. IMPRESSIONS: 1. Sepsis The patient presented to the hospital with sepsis due to osteomyelitis with secondary MRSA bacteremia and acute sepsis related organ dysfunction as evidenced by lactic acidemia. The patient did receive supplemental IV fluid hydration and has remained hemodynamically stable. The patient remains on appropriate antimicrobials. Podiatry and wound care are following. Echocardiogram did not reveal any evidence of valvular vegetations. I do suspect that the findings noted on his CT chest likely represent hematogenous spread of his underlying infection. Regardless, I would recommend a follow-up chest CT in 6 to 8 weeks to document resolution. No additional intervention is required at this particular time. 2. Acute kidney injury Most likely prerenal in etiology in the setting of #1. The patient remains hemodynamically stable. Continue to monitor urine output for now and avoid nephrotoxic medications. No current indication for renal replacement therapy. 3. Chronic tobacco dependency without diagnosis of COPD Although the patient has a longstanding tobacco abuse history, he denied ever having been diagnosed with COPD. It is reasonable to continue as needed bro nchodilator therapy. Recommend weaning supplemental oxygen as tolerated for saturations greater than 90%. Nicotine replacement therapy can be offered to the patient while admitted to the hospital. 4. History of osteomyelitis with Charcot arthropathy/hypertension/hyperlipidemia/morbid obesity/diabetes mellitus Complicates care, management, recovery and prognosis. Continue home medications as indicated. This note was generated with [employer] dictation software. It may contain incorrect words, spelling, and punctuation that were not noted in checking the note before signing. Subjective Subjective The patient was seen and examined at the bedside this morning. Events from the last 24 hours have been reviewed. The patient is currently afebrile, hemodynamically stable and maintaining appropriate oxygen saturations on 2 L/min via nasal cannula. There are tentative plans for the patient to undergo surgical debridement of his foot today. The patient is documented to be overall net +3.5 L for the hospitalization. White count is elevated at 15,000 with a platelet count of 101,000. Creatinine has increased to 1.69. The patient has no specific complaints this morning. Objective Data Objective Data The patient's most recent lab work, culture data and imaging studies have all been personally reviewed. MRI of the left foot demonstrated evidence of second and third metatarsal osteomyelitis. No valvular vegetations were noted on echocardiogram. Blood culture dated July 20 was positive for MRSA. Urine culture dated July 20 was positive for gram-negative carlos, lactose housekeeping associate. Vital Signs: Vital Signs Temp Pulse Resp BP Pulse Ox O2 Del Method O2 Flow Rate 98 F 98 22 H 92/50 L 97 Nasal Cannula 2 07/22/22 06:00 07/22/22 06:00 07/22/22 06:00 07/22/22 06:00 07/22/22 06:00 07/22/22 06:00 07/22/22 06:00 Oxygen Flow Rate (L/min) 2 Oxygen Delivery Method Nasal Cannula Weight: 393 lb 11.929 oz Body Mass Index (BMI) 55.0 Intake & Output: Intake and Output for Last 24 Hours 07/20/22 07/21/22 07/22/22 23:59 23:59 23:59 Intake Total 1744 / 1774 3566.25 / 3566.25 1110 / 1110 Output Total 2550 / 2550 375 / 375 Balance 1744 / 1774 1016.25 / 1016.25 735 / 735 Lab / Micro Data Attestation: I reviewed the patient's lab results. Result Diagrams: 07/22/22 02:20 07/22/22 02:20 Labs: Laboratory Results - last 24 hr 07/21/22 07:35: POC Glucose 269 H 07/21/22 11:34: POC Glucose 316 H 07/21/22 16:46: POC Glucose 290 H 07/21/22 21:30: Vancomycin Trough 17.4 H 07/21/22 21:34: POC Glucose 247 H 07/22/22 02:20: WBC 15.6 H, RBC 4.42 L, Hgb 11.5 L, Hct 36.7 L, MCV 83.0, MCH 26.0 L, MCHC 31.3 L, RDW Std Deviation 45.5 H, RDW Coeff of Maria Fernanda 15.1 H, Plt Count 101 L, MPV 11.9, Immature Gran % (Auto) 1.400 H, Neut % (Auto) 89.5 H, Lymph % (Auto) 3.3 L, [place] % (Auto) 5.5, Eos % (Auto) 0.1, Baso % (Auto) 0.2, Absolute Neuts (auto) 13.9 H, Absolute Lymphs (auto) 0.52 L, Nucleated RBC % 0, Platelet Estimate SLT DEC, Anisocytosis 1+ 07/22/22 02:20: Sodium 134 L, Potassium 3.5, Chloride 98, Carbon Dioxide 29.0, Anion Gap 7, BUN 34 H, Creatinine 1.69 H, Estim Creat Clear Calc 54.46, Est GFR (MDRD) Af Amer 55 L, Est GFR (MDRD) Non-Af 46 L, BUN/Creatinine Ratio 20.1 H, Glucose 235 H, Calcium 7.6 L, Magnesium 2.0 Micro: Microbiology 07/20/22 18:10 Urine, Catheterized Urine Culture - Preliminary GNR lactose housekeeping associate 07/20/22 14:45 Blood Culture (Wb) - Left Hand Blood Culture - Preliminary 07/20/22 14:55 Blood Culture (Wb) - Anticubital Right Bacteria Detection (PCR) - Final Meth. resistant Staph. aureus 07/20/22 14:55 Blood Culture (Wb) - Anticubital Right Blood Culture - Preliminary 07/20/22 19:47 Mucosa - Nasopharyngeal Respiratory Panel (PCR) - Final 07/20/22 18:10 Urine, Random Legionella Antigen - Final 07/20/22 18:10 Urine, Random Streptococcus pneumoniae Antigen (M - Final 07/20/22 13:55 Nasal Secretion SARS-CoV-2 & FLU Antigen (Rapid) - Final Radiography Diagnostic Testing: Radiology Impression Echocardiogram 07/21/22 09:17 Interpretation Summary The study was technically difficult. Contrast injection was performed. Based upon the 2D echocardiographic and contrast enhanced images obtained there appears to be grossly normal left ventricular size, wall motion, and systolic function. The estimated ejection fraction is 55 %. Diastolic function is indeterminate. Ordering Physician: Stoney Soto Referring Physician: Gavin Raymundo Performed By: Laura Garibay RCS Extremity Arterial Study 07/21/22 10:00 Interpretation Summary Right KRIS 1.05, normal. TBI and Doppler/PVR waveforms of the right leg normal at rest. Left KRIS 1.15, normal. TBI and Doppler/PVR waveforms of the left leg normal at rest. Ordering Physician: Eagle Babin Referring Physician: Gavin Raymundo Performed By: Bella Evans RVT Lower Extremity MRI 07/21/22 12:31 IMPRESSION: 1. Second and third metatarsal osteomyelitis. 2. Relatively large fluid collection along the plantar aspect of the fourth digit on the transaxial images; this measures approximately 2.3 x 1.3 cm. This may be postsurgical, traumatic or potentially infectious also. Electronically Signed: Price Lopes MD at 1:40 EST , Lower Extremity MRI 07/21/22 15:21 IMPRESSION: 1. No drainable fluid collections. 2. 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 A Electronically Signed: Price Lopes MD at 1:49 EST , Physical Exam Const alert and no apparent distress Constitutional Narrative: Super morbidly obese. General Appearance: cooperative HEENT normocephalic, head/scalp atraumatic and moist oral mucous membranes Eyes PERRL, EOMs intact bilaterally and conjunctivae normal Neck supple General: trachea midline Chest inspection of chest normal Resp Auscultation: diminished lung sounds; Negative for rales, rhonchi or wheezes Cardio regular rate and regular rhythm GI normal to inspection, nondistended, normoactive bowel sounds Extremity Extremity Narrative: Bilateral wrapped lower extremities. General Extremity: Negative for clubbing Skin General Skin Exam: venous stasis and dermatitis Neuro oriented x3, CN's II-XII intact bilaterally, moves all extremities and no focal motor deficits Psych cooperative and affect normal Charges/Coding Visit Charges Inpatient E&M: 38264 Subs Hosp L3
--- NOTE | 2022-07-22 08:18 | PN.HOSP_ITS ---
Subjective Subjective Follow-up for sepsis. Patient going for surgery today bilateral feet debridement Shortness of breath is improved. Objective Data Objective Data Vital Signs: Vital Signs Temp Pulse Resp BP Pulse Ox O2 Del Method O2 Flow Rate 98 F 98 22 H 92/50 L 97 Nasal Cannula 2 07/22/22 06:00 07/22/22 06:00 07/22/22 06:00 07/22/22 06:00 07/22/22 06:00 07/22/22 06:00 07/22/22 06:00 Oxygen Flow Rate (L/min) 2 Oxygen Delivery Method Nasal Cannula Weight: 393 lb 11.929 oz Body Mass Index (BMI) 55.0 Intake & Output: Intake and Output for Last 24 Hours 07/20/22 07/21/22 07/22/22 23:59 23:59 23:59 Intake Total 1744 / 1774 3566.25 / 3566.25 1110 / 1110 Output Total 2550 / 2550 375 / 375 Balance 1744 / 1774 1016.25 / 1016.25 735 / 735 Lab / Micro Data Result Diagrams: 07/22/22 02:20 07/22/22 02:20 Labs: Laboratory Results - last 24 hr 07/21/22 07:35: POC Glucose 269 H 07/21/22 11:34: POC Glucose 316 H 07/21/22 16:46: POC Glucose 290 H 07/21/22 21:30: Vancomycin Trough 17.4 H 07/21/22 21:34: POC Glucose 247 H 07/22/22 02:20: WBC 15.6 H, RBC 4.42 L, Hgb 11.5 L, Hct 36.7 L, MCV 83.0, MCH 26.0 L, MCHC 31.3 L, RDW Std Deviation 45.5 H, RDW Coeff of Maria Fernanda 15.1 H, Plt Count 101 L, MPV 11.9, Immature Gran % (Auto) 1.400 H, Neut % (Auto) 89.5 H, Lymph % (Auto) 3.3 L, [place] % (Auto) 5.5, Eos % (Auto) 0.1, Baso % (Auto) 0.2, Absolute Neuts (auto) 13.9 H, Absolute Lymphs (auto) 0.52 L, Nucleated RBC % 0, Platelet Estimate SLT DEC, Anisocytosis 1+ 07/22/22 02:20: Sodium 134 L, Potassium 3.5, Chloride 98, Carbon Dioxide 29.0, Anion Gap 7, BUN 34 H, Creatinine 1.69 H, Estim Creat Clear Calc 54.46, Est GFR (MDRD) Af Amer 55 L, Est GFR (MDRD) Non-Af 46 L, BUN/Creatinine Ratio 20.1 H, Glucose 235 H, Calcium 7.6 L, Magnesium 2.0 Micro: Microbiology 07/20/22 14:55 Blood Culture (Wb) - Anticubital Right Bacteria Detection (PCR) - Final Meth. resistant Staph. aureus 07/20/22 14:55 Blood Culture (Wb) - Anticubital Right Blood Culture - Preliminary Staphylococcus aureus 07/20/22 14:45 Blood Culture (Wb) - Left Hand Blood Culture - Final Staphylococcus aureus 07/20/22 18:10 Urine, Catheterized Urine Culture - Final Citrobacter freundii 07/20/22 19:47 Mucosa - Nasopharyngeal Respiratory Panel (PCR) - Final 07/20/22 18:10 Urine, Random Legionella Antigen - Final 07/20/22 18:10 Urine, Random Streptococcus pneumoniae Antigen (M - Final 07/20/22 13:55 Nasal Secretion SARS-CoV-2 & FLU Antigen (Rapid) - Final Radiography Diagnostic Testing: Radiology Impression Echocardiogram 07/21/22 09:17 Interpretation Summary The study was technically difficult. Contrast injection was performed. Based upon the 2D echocardiographic and contrast enhanced images obtained there appears to be grossly normal left ventricular size, wall motion, and systolic function. The estimated ejection fraction is 55 %. Diastolic function is indeterminate. Extremity Arterial Study 07/21/22 10:00 Interpretation Summary Right KRIS 1.05, normal. TBI and Doppler/PVR waveforms of the right leg normal at rest. Left KRIS 1.15, normal. TBI and Doppler/PVR waveforms of the left leg normal at rest. Lower Extremity MRI 07/21/22 12:31 IMPRESSION: 1. Second and third metatarsal osteomyelitis. 2. Relatively large fluid collection along the plantar aspect of the fourth digit on the transaxial images; this measures approximately 2.3 x 1.3 cm. This may be postsurgical, traumatic or potentially infectious also. Electronically Signed: Price Lopes MD at 1:40 EST , Lower Extremity MRI 07/21/22 15:21 IMPRESSION: 1. No drainable fluid collections. 2. 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 A Electronically Signed: Price Lopes MD at 1:49 EST , Physical Exam Narrative Physical exam General: Alert, Oriented x3, Cooperative, BMI 54.5 kg/m?. Overall feels better. HEENT: Atraumatic, PERRLA, EOMI, Normocephalic Oral: Deep oropharyngeal structures could not be seen. No Gingival or Mucosal Lesions/ Ulcerations Neck: Supple, No JVD, Negative Carotid Bruits Chest wall/lungs: No dyspnea. No chest wall tenderness. Air entry diminished in bilateral lung bases. Mild bilateral expiratory rhonchi and wheezing Cardiovascular: Regular rate, Regular Rhythm, Normal S1, Normal S2, No murmurs Abdomen: Bowel Sounds Present, Soft, Non Tender, Non-Distended : No renal angle tenderness. No suprapubic tenderness. Extremities: Bilateral below-knee pitting and nonpitting edema. Capillary Refill Less than 3 Seconds Skin:Ulcer over both feet. Necrotic bone was extruded from the left foot brown color. Right foot chronic ulcer. Venous dermatitis changes. Musculoskeletal: Right, forefoot metatarsal amputation. ROM restricted at hip knee and ankle level. Muscle strength 4/5. Neurological: Cranial nerves II-XII grossly intact, DTR 2+/4, bilateral lower legs neuropathy Psych/Mental Status: Flat affect. Assessment & Plan Assessment/Plan (1) Hypoxia: PLAN: Plan The patient is a 52 y/o male was admitted in ICU through ED for 2 days of increasing dyspnea, worse with any exertion attempt. #1. Sepsis with secondary MRSA bacteremia most likely due to osteomyelitis: Patient is being admitted in ICU. The patient presented with sepsis, most likely due to osteomyelitis with acute sepsis-related organ dysfunctevidenced by lactic acidosis. Patient had IV fluid rehydration. Patient maintained blood pressure. Podiatry and ID consulted. CT chest reviewed and shows multiple small cavitary lesions throughout lungs suggestive of septic emboli. The patient is being comanaged with environmental engineering aide and ID. Court Specialist recommended repeat chest CT in 6 to 8 weeks or follow-up for reevaluation. 2D echo shows EF 55. Grossly normal LV size, wall motion and systolic function although study was technically difficult. 07/22: Multiple blood culture shows MRSA. Urine culture Citrobacter freundii [id number] colonies resistant to Levaquin and Cipro. Prelim wound culture growing gram-negative carlos, gram-positive rods and rare GPC. Continue broad-spectrum antibiotic. Lower extremity arterial study shows right and left normal KRIS with normal Doppler waveform at rest. 2D echo EF 55% with grossly normal LV size wall motion and systolic function. MRI right foot shows multiple midfoot neuropathic osteoarthropathy along with bone marrow signal alteration concerning for osteomyelitis. MRI left foot second and third metatarsal osteomyelitis #2 large collection 2.3 x 1.3 cm plantar aspect. Patient is going for OR today. 2. History of chronic smoking/tobacco, nicotine dependency without diagnosis of COPD: Patient has prolonged history of smoking and still continues. Does not have documented diagnosis of COPD. Patient does not use oxygen at home. Bronchodilator as needed. Court Specialist recommended discontinuation of his scheduled vaginal cytosol. On nicotine patch. #3. Hypovolemic hypotonic hyponatremia, mild: Admission sodium 127, prior baselines appear in the normal range primarily, chloride also decreased to 89, repeat sodium shows improvement 132.. #4. Hypokalemia: Admission K+ 3.3, repeat potassium 3.6. Serum magnesium 1.7. 07/22: K3.5. Magnesium 2.0. #5. Hx Charcot arthropathy with Hx osteomyelitis, Hx nonpressure chronic ulcer right midfoot: Patient had right foot transmetatarsal amputation. Patient follows Dr. Acevedo as an outpatient wound center with last visit on 07/16/2022 and had office local debridement and was advised nonweightbearing with use of wheelchair and orthotics. Search Engine Optimization Manager and wound care nurses consulted. 07/22: Findings of MRI described above and shows neuroarthropathy and Charcot's joint along with osteomyelitis. 6 hypertension: Continue home regimen including lisinopril with further adjustments as needed pending blood pressure trend, PRN hydralazine. 7. Hyperlipidemia: Not on statin therapy per current list, encourage continued outpatient follow-up. 8. Diabetes mellitus type II: Hold oral home regimen, ADA diet, accu checks w/ ISS. 9.. Morbid Obesity: Weight loss and lifestyle changes encouraged. 10. Bilateral lower extremity chronic venous stasis disease: We will maintain on low-dose aspirin, encourage continued hypertensive, hyperlipidemic and DM control. #11. GERD: On Protonix #12 KRYSTAL: CPAP nightly. #13 DVT prophylaxis: SCDs, Lovenox while awaiting pulmonary and ID assessment, may need to hold for possible intervention. CODE status: Patient is does not have healthcare power of lip cutter nor living will in place. Discussed CODE status at length including difference between FULL code, DNR-CCA and DNR-CC status. Following discussions about the differences in these status, requested Full Code status. Total time of the visit including total time spent in counseling or coordination of care, (more than 50% of the total time, spent in obtaining medical information from nurses and other ancillary care providers,explaining to the patient about labs, imaging, diagnosis and management of active complex medical conditions), , review of labs and imaging is 45 minutes Charges/Coding Visit Charges Inpatient E&M: 80257 Subs Hosp L3
[2022-07-22] MEDS: Lisinopril 20 MG Tablet PO (09:17)
[2022-07-22] MEDS: Juven (unflavored) Packet 1 PACKET PO (09:17)
[2022-07-22] MEDS: Menthol/Lanolin/Calamine/Znox 113 GM Tube 1 APPLIC TOPICAL ×3 (09:17→21:19)
--- NOTE | 2022-07-22 09:45 | WOUNDNOTE ---
Pt scheduled for surgery this afternoon per Dr Babin. ADIN wraps and dressings are D&I. will leave dressings in place since patient is going for surgery. pt denies further needs.
[2022-07-22] MEDS: Insulin Lispro 100 UNIT/ML INSULN.PEN SC ×2 (11:10→21:20)
[2022-07-22 11:36] LABS: Bedside Glucose 206 mg/dL (74-106)
--- NOTE | 2022-07-22 12:25 | PCM.RX.CS ---
Consult Pharmacy has been consulted to manage selected antiobiotic: Vancomycin Type of Consult: Follow-up Suspected Infection: Sepsis, Osteomyelitis Prior Doses of Antibiotics Received/Current Regimen: current dose is vanc 1500mg IV q8h Labs: Sodium 134 mmol/L (136-145) L 07/22/22 02:20 Potassium 3.5 mmol/L (3.5-5.1) 07/22/22 02:20 Chloride 98 mmol/L (98-107) 07/22/22 02:20 Carbon Dioxide 29.0 mmol/L (21.0-32.0) 07/22/22 02:20 Anion Gap 7 (5-15) 07/22/22 02:20 BUN 34 mg/dL (7-18) H 07/22/22 02:20 Creatinine 1.69 mg/dL (0.70-1.30) H 07/22/22 02:20 Est GFR (MDRD) Af Amer 55 mL/min (>60) L 07/22/22 02:20 Est GFR (MDRD) Non-Af 46 mL/min (>60) L 07/22/22 02:20 BUN/Creatinine Ratio 20.1 RATIO (10-20) H 07/22/22 02:20 Glucose 235 mg/dL (74-106) H 07/22/22 02:20 Vancomycin Trough 17.4 ug/mL (5.0-15.0) H 07/21/22 21:30 Microbiology: Microbiology 07/21/22 11:00 Wound - Left Foot Gram Stain - Final 07/21/22 11:00 Wound - Left Foot Wound Culture - Preliminary Gram negative carlos 07/21/22 09:30 Bone - Left Foot Gram Stain - Final 07/21/22 09:30 Bone - Left Foot Wound Culture - Preliminary GNR non revenue field auditor 07/20/22 14:55 Blood Culture (Wb) - Anticubital Right Bacteria Detection (PCR) - Final Meth. resistant Staph. aureus 07/20/22 14:55 Blood Culture (Wb) - Anticubital Right Blood Culture - Preliminary Staphylococcus aureus 07/20/22 14:45 Blood Culture (Wb) - Left Hand Blood Culture - Final Staphylococcus aureus 07/20/22 18:10 Urine, Catheterized Urine Culture - Final Citrobacter freundii 07/20/22 19:47 Mucosa - Nasopharyngeal Respiratory Panel (PCR) - Final 07/20/22 18:10 Urine, Random Legionella Antigen - Final 07/20/22 18:10 Urine, Random Streptococcus pneumoniae Antigen (M - Final 07/20/22 13:55 Nasal Secretion SARS-CoV-2 & FLU Antigen (Rapid) - Final Weight used for dosin.6 kg Estimated Creatinine Clearance: 84ml/min Goal Trough: 15-20 mcg/mL Pharmacy Plan for Drug Dosing: The patient had an acute increase in SCr today (increased to 1.69 today from 1.14 yesterday) so per protocol will order a trough to be drawn before the next dose this evening. Hold further dosing until that trough is back. Will need to continue to monitor renal function as well. The patient's CrCl of 84 ml/min was calculated using an adjusted body weight. Pharmacy Service will continue to monitor and adjust dosing as required. Follow-Up Labs: Trough Vancomycin Labs to be done on [date and time ordered]: 07/22/22 19:30
--- NOTE | 2022-07-22 13:15 | NURSING ---
patient transferred off floor for surgery via surgery staff
[2022-07-22] MEDS: Lidocaine 1% (30 ml sdv) 30 ML Vial (16:35)
--- NOTE | 2022-07-22 16:56 | PCM.OPRPT ---
Problems Associated Problem List Diagnoses (1) Non-pressure chronic ulcer of other part of right foot with necrosis of bone: (2) Non-pressure chronic ulcer of other part of left foot with necrosis of muscle: (3) Osteomyelitis of left foot: (4) Onychomycosis: Report of Operation Date of Procedure: 07/22/22 Pre-Operative Diagnosis: 1. Right foot wound down to level of bone at the site of the midfoot secondary to diabetic neuropathy with Charcot deformity 2. Left foot wound down to level of muscle where plantar forefoot 3. Deep abscess down to level of bone left foot separate site from aforementioned wound 4. Onychomycosis toes 1 and 3 right side and 1 through 5 left side Post-Operative Diagnosis: Same Surgery/Procedure Performed:: 1. Right foot wound excisional debridement down to and including the level of bone 2. Left foot wound debridement down to and including the level of muscle 3. Incision and drainage deep abscess down to level of bone with incision of bone cortex and biopsy/culture 4. Debridement of toenails greater than 6 Description of Surgical Findings:: Intraoperatively there were no acute signs of infection to the right side there is significant Charcot deformity creating a plantar convexity with a chronic midfoot wound that had deep cavitation and probing down to the level of the midfoot bones bone cultures and pathology were taken no evidence of additional tissue breakdown or purulent drainage. On the left side there is a chronic full-thickness wound to the forefoot at the level of the plantar second metatarsal phalangeal joint. This wound appears to be healthy at this time with granular base but does extend down to the level of muscle. This wound was debrided. Additionally on the left side there is a wound that extended down to the level of bone with a deep abscess formation of approximately 7 cc of purulent drainage cultures were taken of this using swab cultures as well as deep bone culture and pathology of the fourth metatarsal. Nails x6 were debrided in length and thickness without incident prior to prepping the incisional sites Surgeon: Eagle Babin public housing interviewer: None (pavan MCKEON) Type of Anesthesia: Local MAC Special Medications: 20cc 2.0% lidocaine plain Specimen's removed: Right midfoot bone pathology and culture Left 4th metatarsal bone pathology and culture bilateral foot wound swab cultures Drains: none Estimated Blood Loss (mL): 30cc Description of Procedure: Patient has been seen for a chronic right plantar midfoot ulceration the wound care center has been offloading the site with a knee scooter was unaware of a left foot wound. Was admitted over the weekend due to worsening ability to breathe. Clinically patient was hypotensive upon admission but this resolved with fluid resuscitation and introduction of IV antibiotics. Patient had chest x-ray which and chest CT which confirmed septic emboli to the lungs likely contributing to his dyspnea. Patient had positive blood cultures for MRSA. MRIs of bilateral feet were taken there is concerning changes for Charcot versus osteomyelitis to the right foot as well as an abscess to the deep interspace of the fourth metatarsal head. Decision was made for infection control via surgical debridement discussed with patient proceed with today. Patient was brought back the operating placed comfortably in the supine position on the operating room table. All osseous prominences were offloaded prevent any compression neuropraxia's. Bilateral feet toenails were debrided in length and thickness without incident using sterile bone cutting forceps. The sites were then cleansed and bilateral feet were scrubbed prepped and draped using typical aseptic fashion. Incision was taken to the level of the right plantar midfoot where a full-thickness incision was made through the plantar foot wound dissection was taken down to level of the midfoot bones there is no evidence of deep abscess to the site bone culture and pathology were taken with bone rongeurs. Swab cultures were taken of the right midfoot wound incisional site. Incisions were flushed with copious amounts of normal sterile saline using low-pressure pulse lavage. Next, attention was taken to the left plantar second metatarsal head where full-thickness wound was excisionally debrided down to including level of muscle this wound was noted to be 3 x 3 x 2.5 cm predebridement postdebridement the wound was noted to be 3.5 x 3.5 x 3 cm. Wound demonstrate clean granular base no evidence of deep infection. Attention was taken to the plantar left fourth metatarsal head where wound was debrided and 7 cc of purulence was drainage swab cultures were taken of the site. After all the purulent drainage and nonviable tissue was excisionally debrided and removed down to the level of bone bone pathology and cultures were taken using bone rongeurs. Left foot wounds were flushed with copious amounts normal sterile saline using low-pressure pulse lavage. Bilateral foot wounds were packed with Betadine wet-to-dry dressings and Jens bandage for compression. Patient was transferred to PACU vital signs stable and vascular status intact all digits for further monitoring prior to discharge patient tolerated procedure and anesthesia well in apparent satisfactory condition. Patient will be monitored closely while in house likely benefit from going to a nursing facility due to requirements for prolonged nonweightbearing with possible long-term IV antibiotic use per infectious disease discretion. Complications none Admit VTE Documentation VTE Present on Admission: Yes VTE Mechan Device Prophylaxis: SCD's VTE Pharm Prophylaxis ordered?: Yes
[2022-07-22 17:50] LABS: Bedside Glucose 178 mg/dL (74-106)
[2022-07-22] MEDS: Enoxaparin 40 MG/0.4 ML Syringe SC (21:20)
[2022-07-22 21:45] LABS: Bedside Glucose 194 mg/dL (74-106)
[2022-07-22 22:28] LABS: Vancomycin, Trough Level 37.1 ug/mL (5.0-15.0)
[2022-07-23] VITALS (16 sets, daily range): BP systolic 86–135; BP diastolic 52–96; PULSE 75–93; RESP 22–36; TEMP 35.7–37.1; O2SAT 90–98
[2022-07-23 02:26] LABS: Bedside Glucose 189 mg/dL (74-106)
[2022-07-23 05:30] LABS: Absolute Lymphocyte Count 0.73 X10^3/uL (0.83-4.51); Absolute Neutrophil Count 15.6 X10^3/uL (2.0-7.7); Basophil# 0.06 X10^3/uL; Basophil% 0.3 % (0-1); Eosinophil# 0.04 X10^3/uL; Eosinophils% 0.2 % (0-5); Hemoglobin 11.3 g/dL (13.0-16.5); Lymphocyte # 0.73 X10^3/ul (0.83-4.51); Lymphocyte % 4.1 % (19-41); Mean Corp Hgb Conc 30.5 g/dL (32-36); Mean Corpuscular Hgb 26.4 pg (27.0-32.0); Mean Corpuscular Volume 86.4 fL (80-94); Mean Platelet Vol. 12.9 fl (6.2-12.0); Monocyte# 0.92 X10^3/uL; Monocyte% 5.2 % (0-10); NRBC Flagged by Analyzer 0 % (0-5); Neutrophil # 15.61 X10^3/uL (2.7-7.7); Neutrophil % 88.3 % (47-70); POSITIVE COUNT YES; Platelet Count 95 K/mm3 (150-450); RBC Distribution Width CV 15.8 % (11.6-14.6); RBC Distribution Width SD 49.1 fl (35.1-43.9); Red Blood Count 4.28 M/mm3 (4.6-6.2); White Blood Count 17.7 K/mm3 (4.4-11.0)
--- NOTE | 2022-07-23 05:35 | PHA.PHARE_ITS ---
Consult Pharmacy has been consulted to manage selected antiobiotic: Vancomycin Type of Consult: Follow-up Labs: Vancomycin Trough 37.1 ug/mL (5.0-15.0) H 07/22/22 21:15 Microbiology: Microbiology 07/22/22 09:50 Blood Culture (Wb) - Right Hand Blood Culture - Preliminary 07/21/22 11:00 Wound - Left Foot Gram Stain - Final 07/21/22 11:00 Wound - Left Foot Wound Culture - Preliminary Gram negative carlos 07/21/22 09:30 Bone - Left Foot Gram Stain - Final 07/21/22 09:30 Bone - Left Foot Wound Culture - Preliminary GNR non insulator cutter and former 07/20/22 14:55 Blood Culture (Wb) - Anticubital Right Bacteria Detection (PCR) - Final Meth. resistant Staph. aureus 07/20/22 14:55 Blood Culture (Wb) - Anticubital Right Blood Culture - Preliminary Staphylococcus aureus 07/20/22 14:45 Blood Culture (Wb) - Left Hand Blood Culture - Final Staphylococcus aureus 07/20/22 18:10 Urine, Catheterized Urine Culture - Final Citrobacter freundii 07/20/22 19:47 Mucosa - Nasopharyngeal Respiratory Panel (PCR) - Final 07/20/22 18:10 Urine, Random Legionella Antigen - Final 07/20/22 18:10 Urine, Random Streptococcus pneumoniae Antigen (M - Final 07/20/22 13:55 Nasal Secretion SARS-CoV-2 & FLU Antigen (Rapid) - Final Goal Trough: 15-20 mcg/mL Pharmacy Plan for Drug Dosing: Pharmacy Service will continue to monitor and adjust dosing as required. TROUGH 37.1. HOLD CURRENT DOSE, DRAW RANDOM LEVEL IN 24 HOURS Follow-Up Labs: Trough Vancomycin Labs to be done on [date and time ordered]: 07/23 @ 1930 RANDOM
[2022-07-23 05:45] LABS: Differential Indicated SCAN CRITERIA MET
[2022-07-23 05:50] LABS: Anion Gap 6 (5-15); BUN 52 mg/dL (7-18); BUN/Creat Ratio 13.2 RATIO (10-20); Calcium,Total 7.5 mg/dL (8.5-10.1); Chloride 99 mmol/L (98-107); Creatinine, Serum 3.94 mg/dL (0.70-1.30); EST Glomerular Filtration Rate 17 mL/min (>60); Est Glom Filt Rate - Afr Amer 21 mL/min (>60); Estimated Creatinine Clearance 22.65 ml/min; Glucose 171 mg/dL (74-106); Magnesium 2.4 mg/dL (1.6-2.6); Potassium 4.1 mmol/L (3.5-5.1); Sodium Level 134 mmol/L (136-145)
[2022-07-23 06:02] LABS: Anisocytosis 1+; Platelet Estimate MOD DEC (ADEQ)
--- NOTE | 2022-07-23 06:40 | PN.CC_ITS ---
Assessment & Plan Assessment/Plan (1) Sepsis: PLAN: Plan RECOMMENDATIONS: 1. Antimicrobials per infectious diseases. 2. Continue local wound care. 3. Obtain nephrology consultation. 4. Obtain renal ultrasound. 5. Continue appropriate DVT prophylaxis. 6. Wean supplemental oxygen to maintain saturations at or above 90%. 7. Encourage incentive spirometer use and mobilize patient as tolerated. IMPRESSIONS: 1. Sepsis The patient presented to the hospital with sepsis due to osteomyelitis with secondary MRSA bacteremia and acute sepsis related organ dysfunction as evidenced by lactic acidemia. The patient did receive supplemental IV fluid hydration and has remained hemodynamically stable. The patient remains on appropriate antimicrobials. The patient did ultimately undergo surgical debridement under the discretion of podiatry on July 22. Echocardiogram did not reveal any evidence of valvular vegetations. I do suspect that the findings noted on his CT chest likely represent hematogenous spread of his underlying infection. Regardless, I would recommend a follow-up chest CT in 6 to 8 weeks to document resolution. No additional intervention is required at this particular time. 2. Acute kidney injury Most likely prerenal in etiology in the setting of #1. The patient remains hemo dynamically stable. Given interval increase in creatinine, will obtain renal ultrasound and obtain nephrology consultation. 3. Chronic tobacco dependency without diagnosis of COPD Although the patient has a longstanding tobacco abuse history, he denied ever having been diagnosed with COPD. It is reasonable to continue as needed bronchodilator therapy. Recommend weaning supplemental oxygen as tolerated for saturations greater than 90%. Nicotine replacement therapy can be offered to the patient while admitted to the hospital. 4. History of osteomyelitis with Charcot arthropathy/hypertension/hyperlipidemia/morbid obesity/diabetes mellitus Complicates care, management, recovery and prognosis. Continue home medications as indicated. This note was generated with [employer] dictation software. It may contain incorrect words, spelling, and punctuation that were not noted in checking the note before signing. Subjective Subjective The patient was seen and examined at the bedside this morning. Events from the last 24 hours have been reviewed. The patient is currently afebrile, hemodynamically stable and maintaining appropriate oxygen saturations on 3 L/min via nasal cannula. The patient is overall net +4 L for the hospitalization. Creatinine has increased to 3.94. The patient did undergo successful excisional debridement of his right and left foot. Objective Data Objective Data The patient's most recent lab work, culture data and imaging studies have all been personally reviewed. MRI of the left foot demonstrated evidence of second and third metatarsal osteomyelitis. No valvular vegetations were noted on echocardiogram. Blood culture dated July 20 was positive for MRSA. Wound culture dated July 21 was positive for Proteus mirabilis. Vital Signs: Vital Signs Temp Pulse Resp BP Pulse Ox O2 Del Method O2 Flow Rate 98 F 93 26 H 100/52 L 96 Nasal Cannula 4 07/23/22 06:00 07/23/22 06:00 07/23/22 06:00 07/23/22 06:00 07/23/22 06:00 07/23/22 06:00 07/23/22 06:00 Oxygen Flow Rate (L/min) 4 Oxygen Delivery Method Nasal Cannula Weight: 393 lb 4.874 oz Body Mass Index (BMI) 55.0 Intake & Output: Intake and Output for Last 24 Hours 07/21/22 07/22/22 07/23/22 23:59 23:59 23:59 Intake Total 3566.25 / 3566.25 1780 / 1780 50 / 50 Output Total 2550 / 2550 550 / 550 Balance 1016.25 / 1016.25 1230 / 1230 50 / 50 Lab / Micro Data Attestation: I reviewed the patient's lab results. Result Diagrams: 07/23/22 03:25 07/23/22 03:25 Labs: Laboratory Results - last 24 hr 07/22/22 06:17: POC Glucose 189 H 07/22/22 11:10: POC Glucose 206 H 07/22/22 17:28: POC Glucose 178 H 07/22/22 21:10: POC Glucose 194 H 07/22/22 21:15: Vancomycin Trough 37.1 H 07/23/22 03:25: WBC 17.7 H, RBC 4.28 L, Hgb 11.3 L, Hct 37.0 L, MCV 86.4, MCH 26.4 L, MCHC 30.5 L, RDW Std Deviation 49.1 H, RDW Coeff of Maria Fernanda 15.8 H, Plt Count 95 L, MPV 12.9 H, Immature Gran % (Auto) 1.900 H, Neut % (Auto) 88.3 H, Lymph % (Auto) 4.1 L, [place] % (Auto) 5.2, Eos % (Auto) 0.2, Baso % (Auto) 0.3, Absolute Neuts (auto) 15.6 H, Absolute Lymphs (auto) 0.73 L, Nucleated RBC % 0, Platelet Estimate MOD DEC, Anisocytosis 1+ 07/23/22 03:25: Sodium 134 L, Potassium 4.1, Chloride 99, Carbon Dioxide 29.0, Anion Gap 6, BUN 52 H, Creatinine 3.94 H, Estim Creat Clear Calc 22.65, Est GFR (MDRD) Af Amer 21 L, Est GFR (MDRD) Non-Af 17 L, BUN/Creatinine Ratio 13.2, Glucose 171 H, Calcium 7.5 L, Magnesium 2.4 Micro: Microbiology 07/21/22 11:00 Wound - Left Foot Gram Stain - Final 07/21/22 11:00 Wound - Left Foot Wound Culture - Preliminary Proteus mirabilis 07/21/22 09:30 Bone - Left Foot Gram Stain - Final 07/21/22 09:30 Bone - Left Foot Wound Culture - Preliminary Proteus mirabilis 07/22/22 09:50 Blood Culture (Wb) - Right Hand Blood Culture - Preliminary 07/20/22 14:55 Blood Culture (Wb) - Anticubital Right Bacteria Detection (PCR) - Final Meth. resistant Staph. aureus 07/20/22 14:55 Blood Culture (Wb) - Anticubital Right Blood Culture - Preliminary Staphylococcus aureus 07/20/22 14:45 Blood Culture (Wb) - Left Hand Blood Culture - Final Staphylococcus aureus 07/20/22 18:10 Urine, Catheterized Urine Culture - Final Citrobacter freundii 07/20/22 19:47 Mucosa - Nasopharyngeal Respiratory Panel (PCR) - Final 07/20/22 18:10 Urine, Random Legionella Antigen - Final 07/20/22 18:10 Urine, Random Streptococcus pneumoniae Antigen (M - Final 07/20/22 13:55 Nasal Secretion SARS-CoV-2 & FLU Antigen (Rapid) - Final Radiography Diagnostic Testing: Radiology Impression Foot X-Ray 07/21/22 11:10 IMPRESSION: Stable cortical discontinuity of the right foot. No acute fracture or dislocation. Diffuse soft tissue swelling. Electronically Signed: Maciel Valencia MD at 9:45 EST , Foot X-Ray 07/21/22 12:00 IMPRESSION: Abnormal soft tissue swelling particularly over the metatarsals and phalanges with subcutaneous emphysema noted volar to the proximal phalanges of the second and third toes. There is irregularity in the proximal phalanges of the second and third toes suggesting osteomyelitis. No acute fracture, old ununited fracture in the proximal fifth metatarsal shaft. 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 General Appearance: cooperative HEENT normocephalic, head/scalp atraumatic and moist oral mucous membranes Eyes PERRL, EOMs intact bilaterally and conjunctivae normal Neck supple General: trachea midline Chest inspection of chest normal Resp Auscultation: diminished lung sounds; Negative for rales, rhonchi or wheezes Cardio regular rate and regular rhythm GI normal to inspection, nondistended, normoactive bowel sounds Extremity Extremity Narrative: Wrapped lower extremities. General Extremity: Negative for clubbing Skin General Skin Exam: venous stasis and dermatitis Neuro oriented x3, CN's II-XII intact bilaterally, moves all extremities and no focal motor deficits Psych cooperative and affect normal Charges/Coding Visit Charges Inpatient E&M: 82966 Subs Hosp L2
--- NOTE | 2022-07-23 06:41 | US_ITS ---
STUDY: RENAL ULTRASOUND - COMPLETE REASON FOR EXAM: Male, 52 years old. ZACARIAS TECHNIQUE: Ultrasound evaluation of the kidneys was performed with real-time and static mcintyre-scale imaging. Limited evaluation due to patient''s body habitus. COMPARISON: None. FINDINGS: RIGHT KIDNEY: Normal location of the right kidney, which is normal in size. The right kidney measures 14.6 cm x 6.7 cm x 7.5 cm. There is a normal cortex of the right kidney. The renal cortex measures 2.0 cm. There is no right renal mass or cyst. There are no right renal calculi. There is no right hydronephrosis. DISTAL RIGHT URETER: There is non-visualization of the distal right ureter. There is no demonstrated right ureterovesical junction calculus. There is a visualized right ureteral jet. LEFT KIDNEY: Normal location of the left kidney, which is normal in size. The left kidney measures 14.3 cm x 7.1 cm x 8.2 cm. There is a normal cortex of the left kidney. The renal cortex measures 2.0 cm. There is no left renal mass or cyst. There are no left renal calculi. There is no left hydronephrosis. DISTAL LEFT URETER: There is non-visualization of the distal left ureter. There is no demonstrated left ureterovesical junction calculus. There is a visualized left ureteral jet. BLADDER: A CERNA catheter is seen within the empty urinary bladder. US/Kidney and Bladder IMPRESSION: Normal ultrasound of the kidneys. Electronically Signed: Jeronimo Gomez MD at 15:04 EST ,
--- NOTE | 2022-07-23 08:04 | PN.HOSP_ITS ---
Subjective Subjective Follow-up for sepsis and osteomyelitis of bilateral feet. Patient underwent excisional debridement of both feet on 07/22/2022. Objective Data Objective Data Vital Signs: Vital Signs Temp Pulse Resp BP Pulse Ox O2 Del Method O2 Flow Rate 97.6 F L 93 22 H 108/59 L 97 Nasal Cannula 4 07/23/22 07:00 07/23/22 07:00 07/23/22 07:00 07/23/22 07:00 07/23/22 07:00 07/23/22 07:00 07/23/22 07:00 Oxygen Flow Rate (L/min) 4 Oxygen Delivery Method Nasal Cannula Weight: 393 lb 4.874 oz Body Mass Index (BMI) 55.0 Intake & Output: Intake and Output for Last 24 Hours 07/21/22 07/22/22 07/23/22 23:59 23:59 23:59 Intake Total 3566.25 / 3566.25 1780 / 1780 50 / 50 Output Total 2550 / 2550 550 / 550 Balance 1016.25 / 1016.25 1230 / 1230 50 / 50 Lab / Micro Data Result Diagrams: 07/23/22 03:25 07/23/22 03:25 Labs: Laboratory Results - last 24 hr 07/22/22 06:17: POC Glucose 189 H 07/22/22 11:10: POC Glucose 206 H 07/22/22 17:28: POC Glucose 178 H 07/22/22 21:10: POC Glucose 194 H 07/22/22 21:15: Vancomycin Trough 37.1 H 07/23/22 03:25: WBC 17.7 H, RBC 4.28 L, Hgb 11.3 L, Hct 37.0 L, MCV 86.4, MCH 26.4 L, MCHC 30.5 L, RDW Std Deviation 49.1 H, RDW Coeff of Maria Fernanda 15.8 H, Plt Count 95 L, MPV 12.9 H, Immature Gran % (Auto) 1.900 H, Neut % (Auto) 88.3 H, Lymph % (Auto) 4.1 L, [place] % (Auto) 5.2, Eos % (Auto) 0.2, Baso % (Auto) 0.3, Absolute Neuts (auto) 15.6 H, Absolute Lymphs (auto) 0.73 L, Nucleated RBC % 0, Platelet Estimate MOD DEC, Anisocytosis 1+ 07/23/22 03:25: Sodium 134 L, Potassium 4.1, Chloride 99, Carbon Dioxide 29.0, Anion Gap 6, BUN 52 H, Creatinine 3.94 H, Estim Creat Clear Calc 22.65, Est GFR (MDRD) Af Amer 21 L, Est GFR (MDRD) Non-Af 17 L, BUN/Creatinine Ratio 13.2, Glucose 171 H, Calcium 7.5 L, Magnesium 2.4 Micro: Microbiology 07/21/22 11:00 Wound - Left Foot Gram Stain - Final 07/21/22 11:00 Wound - Left Foot Wound Culture - Preliminary Proteus mirabilis 07/21/22 09:30 Bone - Left Foot Gram Stain - Final 07/21/22 09:30 Bone - Left Foot Wound Culture - Preliminary Proteus mirabilis 07/22/22 09:50 Blood Culture (Wb) - Right Hand Blood Culture - Preliminary 07/20/22 14:55 Blood Culture (Wb) - Anticubital Right Bacteria Detection (PCR) - Final Meth. resistant Staph. aureus 07/20/22 14:55 Blood Culture (Wb) - Anticubital Right Blood Culture - Preliminary Staphylococcus aureus 07/20/22 14:45 Blood Culture (Wb) - Left Hand Blood Culture - Final Staphylococcus aureus 07/20/22 18:10 Urine, Catheterized Urine Culture - Final Citrobacter freundii 07/20/22 19:47 Mucosa - Nasopharyngeal Respiratory Panel (PCR) - Final 07/20/22 18:10 Urine, Random Legionella Antigen - Final 07/20/22 18:10 Urine, Random Streptococcus pneumoniae Antigen (M - Final 07/20/22 13:55 Nasal Secretion SARS-CoV-2 & FLU Antigen (Rapid) - Final Radiography Diagnostic Testing: Radiology Impression Foot X-Ray 07/21/22 11:10 IMPRESSION: Stable cortical discontinuity of the right foot. No acute fracture or dislocation. Diffuse soft tissue swelling. Electronically Signed: Maciel Valencia MD at 9:45 EST , Foot X-Ray 07/21/22 12:00 IMPRESSION: Abnormal soft tissue swelling particularly over the metatarsals and phalanges with subcutaneous emphysema noted volar to the proximal phalanges of the second and third toes. There is irregularity in the proximal phalanges of the second and third toes suggesting osteomyelitis. No acute fracture, old ununited fracture in the proximal fifth metatarsal shaft. Previous amputation of the distal half of the fifth metatarsal and the phalanges Degenerative arthrosis Calcaneal spurs Electronically Signed: Dustin Mendenhall MD at 8:36 EST , Physical Exam Narrative Physical exam General: Alert, Oriented x3, Cooperative, BMI 54.5 kg/m?. Overall feels better. HEENT: Atraumatic, PERRLA, EOMI, Normocephalic Oral: Deep oropharyngeal structures could not be seen. No Gingival or Mucosal Lesions/ Ulcerations Neck: Supple, No JVD, Negative Carotid Bruits Chest wall/lungs: No dyspnea. No chest wall tenderness. Air entry diminished in bilateral lung bases. Mild bilateral expiratory rhonchi and wheezing Cardiovascular: Regular rate, Regular Rhythm, Normal S1, Normal S2, No murmurs Abdomen: Bowel Sounds Present, Soft, Non Tender, Non-Distended : No renal angle tenderness. No suprapubic tenderness. Extremities: Bilateral below-knee pitting and nonpitting edema. Capillary Refill Less than 3 Seconds Skin:Ulcer over both feet. Status post excisional debridement and Jens wrap bandage. Musculoskeletal: Right, forefoot metatarsal amputation. ROM restricted at hip knee and ankle level. Muscle strength 4/5. Neurological: Cranial nerves II-XII grossly intact, DTR 2+/4, bilateral lower legs neuropathy Psych/Mental Status: Flat affect. Assessment & Plan Assessment/Plan (1) Hypoxia: PLAN: Plan The patient is a 52 y/o male was admitted in ICU through ED for 2 days of increasing dyspnea, worse with any exertion attempt. #1. Sepsis with secondary MRSA bacteremia most likely due to osteomyelitis: Patient is being admitted in ICU. The patient presented with sepsis, most likely due to osteomyelitis with acute sepsis-related organ dysfunctevidenced by lactic acidosis. Patient had IV fluid rehydration. Patient maintained blood pressure. Podiatry and ID consulted. CT chest reviewed and shows multiple small cavitary lesions throughout lungs suggestive of septic emboli. The patient is being comanaged with test preparer and ID. Enterprise Architect recommended repeat chest CT in 6 to 8 weeks or follow-up for reevaluation. 2D echo shows EF 55. Grossly normal LV size, wall motion and systolic function although study was technically difficult. 07/22: Multiple blood culture shows MRSA. Urine culture Citrobacter freundii [id number] colonies resistant to Levaquin and Cipro. Prelim wound culture growing gram-negative carlos, gram-positive rods and rare GPC. Continue broad- spectrum antibiotic. Lower extremity arterial study shows right and left normal KRIS with normal Doppler waveform at rest. 2D echo EF 55% with grossly normal LV size wall motion and systolic function. MRI right foot shows multiple midfoot neuropathic osteoarthropathy along with bone marrow signal alteration concerning for osteomyelitis. MRI left foot second and third metatarsal osteomyelitis large collection 2.3 x 1.3 cm plantar aspect. Patient is going for OR today. 07/23: Patient had excisional debridement of left foot up to the level of muscle and right foot excisional debridement to the level of bone. Wound culture is growing preliminary Proteus mirabilis. Prelim blood culture shows gram-positive cocci in clusters from 07/22 and earlier blood culture is growing MRSA 2. History of chronic smoking/tobacco, nicotine dependency without diagnosis of COPD: Patient has prolonged history of smoking and still continues. Does not have documented diagnosis of COPD. Patient does not use oxygen at home. Bronchodilator as needed. Enterprise Architect recommended discontinuation of his scheduled vaginal cytosol. On nicotine patch. #3. Hypovolemic hypotonic hyponatremia, mild: Admission sodium 127, prior baselines appear in the normal range primarily, chloride also decreased to 89, repeat sodium shows improvement 132. #4. Hypokalemia: Admission K+ 3.3, repeat potassium 3.6. Serum magnesium 1.7. 07/22: K3.5. Magnesium 2.0. 07/23: K4.1. #5. Hx Charcot arthropathy with Hx osteomyelitis, Hx nonpressure chronic ulcer right midfoot: Patient had right foot transmetatarsal amputation. Patient follows Dr. Acevedo as an outpatient wound center with last visit on 07/16/2022 and had office local debridement and was advised nonweightbearing with use of wheelchair and orthotics. [employer] and wound care nurses consulted. 07/22: Findings of MRI described above and shows neuroarthropathy and Charcot's joint along with osteomyelitis. 6 hypertension: Continue home regimen including lisinopril with further adjustments as needed pending blood pressure trend, PRN hydralazine. 7. Hyperlipidemia: Not on statin therapy per current list, encourage continued outpatient follow-up. 8. Diabetes mellitus type II: Hold oral home regimen, ADA diet, accu checks w/ ISS. 9.. Morbid Obesity: Weight loss and lifestyle changes encouraged. 10. Bilateral lower extremity chronic venous stasis disease: We will maintain on low-dose aspirin, encourage continued hypertensive, hyperlipidemic and DM control. #11. GERD: On Protonix #12 KRYSTAL: CPAP nightly. #13 DVT prophylaxis: SCDs, Lovenox while awaiting pulmonary and ID assessment, may need to hold for possible intervention. CODE status: Patient is does not have healthcare power of corporate associate attorney nor living will in place. Discussed CODE status at length including difference between FULL code, DNR-CCA and DNR-CC status. Following discussions about the differences in these status, requested Full Code status. Total time of the visit including total time spent in counseling or coordination of care, (more than 50% of the total time, spent in obtaining medical information from nurses and other ancillary care providers,explaining to the patient about labs, imaging, diagnosis and management of active complex medical conditions), , review of labs and imaging is 45 minutes Charges/Coding Visit Charges Inpatient E&M: 67035 Subs Hosp L3
[2022-07-23] MEDS: Juven (unflavored) Packet 1 PACKET PO ×2 (08:32→16:51)
[2022-07-23] MEDS: Insulin Lispro 100 UNIT/ML INSULN.PEN SC ×4 (08:34→21:54)
[2022-07-23 09:00] LABS: Bedside Glucose 171 mg/dL (74-106)
--- NOTE | 2022-07-23 09:18 | CON.PCM.RE_ITS ---
Assessment & Plan Assessment/Plan (1) ZACARIAS (acute kidney injury): (2) Hyponatremia: (3) Sepsis: PLAN: Plan Impression/Plan: The patient is a 52-year-old man with past history of 52-year-old man with past history of type 2 diabetes mellitus, hypertension, COPD, VTE not on home OAC, KRYSTAL, chronic venous stasis, Charcot's arthropathy, status post mid right foot amputation secondary to nonhealing ulcer/osteomyelitis, and GERD. The patient is being treated for MRSA bacteremia with septic emboli to the lungs along with UTI. Nephrology is asked to see the patient because of ZACARIAS. Acute kidney injury. Baseline serum creatinine appears to be around 1.10 mg/dL. ZACARIAS is likely due to hemodynamic changes causing prerenal azotemia which could also have evolved to ischemic ATN. This could be related to severe sepsis and recent fluctuation in BP in the patient with chronic hypertension. This could be exacerbated by ongoing use of ADIN inhibitor as well. Another possible cause of ZACARIAS would be nephrotoxic ATN due to IV vancomycin. The chance of nephrotoxic ATN from vancomycin increases when it is combined with piperacillin/tazobactam. Although infection related acute glomerulonephritis is possible, it is less likely as urinalysis did not show significant RBCs. Nevertheless, I will check complements. Low suspicion for other causes of ZACARIAS at this time, but I will check ultrasound of the kidney to be complete. I will check urine indices including fractional excretion of sodium and urea. I will check complement levels (C3 and C4). I will check ultrasound of the kidneys. Would stop lisinopril altogether for now to avoid confusion. Will check random vancomycin level. If vancomycin level is supratherapeutic, I would hold off on reducing the patient and discussed with ID regarding alternative antimicrobial for MRSA. Keep MAP above 65 mmHg. There is no urgent need for kidney replacement therapy today. Current medications are reviewed. Hyponatremia. The patient has mild hyponatremia which has improved. Serum sodium was 127 mmol/L on 07/20/2022. Will continue to monitor serum sodium. Severe sepsis secondary to MRSA bloodstream infection with septic emboli to the lungs and Citrobacter freundii UTI. Will discuss holding vancomycin with ID. HPI Consult Data Date of Consult: 07/24/22 HPI Narrative HPI Narrative: EUSEBIA HECTOR, is a 52-year-old man with past history of type 2 diabetes mellitus, hypertension, COPD, VTE not on home OAC, chronic venous stasis, Charcot's arthropathy, status post mid right foot amputation secondary to nonhealing ulcer/osteomyelitis, and GERD. The patient presented to the hospital on 07/20/2022 with 2 days history of dyspnea worse with exertion. He was also found to have MRSA bloodstream infection, UTI with Citrobacter freundii, and lactic acidosis on admission. The patient was admitted to the ICU for treatment of severe sepsis and acute hypoxic respiratory failure secondary to pneumonia/septic emboli and COPD. Nephrology is asked to see the patient because of ZACARIAS. Baseline serum creatinine has been around 1.10 mg/dL prior to this admission. On presentation to the hospital on 07/20/2022, serum creatinine was 1.29 mg/dL. Creatinine increased to 1.69 mg/dL on 07/22/2022 and 3.94 mg/dL today. There has been pe riods of hypotension on 07/21/2022 and 07/22/2022 on review of record. The patient is on lisinopril. However, I do not see any recent administration of IV contrast or NSAIDs. The patient is being treated for infection with piperacillin/tazobactam, and he has been on IV vancomycin as well. He denies current CP, nausea. There has been no vomiting or diarrhea. Appetite has been OK. He deies LUTS prior to admission. [facility] Medical History Amputation of toe of left foot Cellulitis Charcot arthropathy of midfoot Chronic venous insufficiency DVT (deep venous thrombosis) History of esophageal disorder Hypertension KRYSTAL (obstructive sleep apnea) Osteoarthritis Tobacco abuse counseling Type 2 diabetes mellitus Venous insufficiency Home Medications Handicap [place] #1 ea 12/05/20 [Rx Last Taken Unknown] albuterol sulfate 90 mcg/actuation aerosol inhaler 1 - 2 puff inhalation Q6H PRN shortness of breath or wheezing #8.5 grams 04/28/22 [Rx Last Taken 07/18/22] blood sugar diagnostic (Blood Glucose Test strips) #100 ea 04/28/22 [Rx Last Ta mikel Unknown] blood-glucose meter #1 ea 04/28/22 [Rx Last Taken Unknown] dulaglutide 3 mg/0.5 mL subcutaneous pen injector (Fadiulicity) 3 mg (0.5 mL) subcut TU diabetes #6 mL 04/28/22 [Rx Last Taken 07/14/22] lancets 32 gauge #100 ea 04/28/22 [Rx Last Taken Unknown] metformin 1,000 mg tablet 1,000 mg PO BID diabetes #180 tabs 04/28/22 [Rx Last Taken Unknown] miscellaneous medical supply (Blood Pressure Cuff) #1 ea 04/28/22 [Rx Last Taken Unknown] sitagliptin phosphate 100 mg tablet 100 mg PO DAILY diabetes #90 tabs 04/28/22 [Rx Last Taken Unknown] tadalafil 5 mg tablet 5 mg PO ONCE PRN sexual activity #14 tabs 05/06/22 [Rx Last Taken Unknown] lisinopril 20 mg tablet 20 mg PO DAILY BLOOD PRESSURE 07/20/22 [History Last Taken Unknown] Allergy/AdvReac Type Severity Reaction Status Date / Time ketorolac [From Toradol] AdvReac Upset Verified 04/28/22 08:07 Stomach NSAIDS (Non-Steroidal AdvReac Upset Verified 04/28/22 08:07 Anti-Inflamma Stomach Family History Mother Hypertension Diabetes Heart disease Sister Hypertension Diabetes Crohns disease Brother Diabetes Family History other Surgical History History of cholecystectomy History of esophageal surgery Status post amputation of right foot through metatarsal bone Social History household members: none Smoking Status: Current every day smoker tobacco type: cigarettes alcohol intake: never substance use type: does not use what type of physical activity do you participate in: walking frequency: daily ROS ROS Narrative 04/20 ROS was done. It is otherwise noncontributory other than what is docu mented in HPI. Physical Exam Narrative General: Alert and no apparent distress HEENT: Normocephalic, head/scalp atraumatic and moist oral mucous membranes, PERRLA, EOMI, hearing is intact. Neck: Supple, no JVD Heart: Normal S1, S2. No R/M/G. Lungs: Diminished lung sounds; Negative for rales, rhonchi or wheezes Abdomen: Normal bowel sound, soft, nontender, nondistended, normoactive bowel sounds Extremity: No edema. No clubbing or cyanosis. Skin: Warm+dry. No rash. General Skin Exam: venous stasis and dermatitis Neurologic: Alert and oriented x3, CN's II-XII intact bilaterally, moves all extremities and no focal motor deficits Psychiatric: Normal mood and affect. Lab / Micro Data Result Diagrams: 07/24/22 01:30 07/24/22 01:30 Labs: Laboratory Results - last 24 hr 07/22/22 06:17: POC Glucose 189 H 07/22/22 11:10: POC Glucose 206 H 07/22/22 17:28: POC Glucose 178 H 07/22/22 21:10: POC Glucose 194 H 07/22/22 21:15: Vancomycin Trough 37.1 H 07/23/22 03:25: WBC 17.7 H, RBC 4.28 L, Hgb 11.3 L, Hct 37.0 L, MCV 86.4, MCH 26.4 L, MCHC 30.5 L, RDW Std Deviation 49.1 H, RDW Coeff of Maria Fernanda 15.8 H, Plt Count 95 L, MPV 12.9 H, Immature Gran % (Auto) 1.900 H, Neut % (Auto) 88.3 H, Lymph % (Auto) 4.1 L, [place] % (Auto) 5.2, Eos % (Auto) 0.2, Baso % (Auto) 0.3, Absolute Neuts (auto) 15.6 H, Absolute Lymphs (auto) 0.73 L, Nucleated RBC % 0, Platelet Estimate MOD DEC, Anisocytosis 1+ 07/23/22 03:25: Sodium 134 L, Potassium 4.1, Chloride 99, Carbon Dioxide 29.0, Anion Gap 6, BUN 52 H, Creatinine 3.94 H, Estim Creat Clear Calc 22.65, Est GFR (MDRD) Af Amer 21 L, Est GFR (MDRD) Non-Af 17 L, BUN/Creatinine Ratio 13.2, Glucose 171 H, Calcium 7.5 L, Magnesium 2.4 07/23/22 08:33: POC Glucose 171 H Micro: Microbiology 07/21/22 09:30 Bone - Left Foot Gram Stain - Final 07/21/22 09:30 Bone - Left Foot Wound Culture - Preliminary Proteus mirabilis Coag Negative Staph 07/21/22 11:00 Wound - Left Foot Gram Stain - Final 07/21/22 11:00 Wound - Left Foot Wound Culture - Preliminary Proteus mirabilis Coag Negative Staph Alpha hemolytic organism 07/22/22 09:50 Blood Culture (Wb) - Right Hand Blood Culture - Preliminary 07/20/22 14:55 Blood Culture (Wb) - Anticubital Right Bacteria Detection (P CR) - Final Meth. resistant Staph. aureus 07/20/22 14:55 Blood Culture (Wb) - Anticubital Right Blood Culture - Preliminary Staphylococcus aureus 07/20/22 14:45 Blood Culture (Wb) - Left Hand Blood Culture - Final Staphylococcus aureus 07/20/22 18:10 Urine, Catheterized Urine Culture - Final Citrobacter freundii Radiology Impression Foot X-Ray 07/21/22 11:10 IMPRESSION: Stable cortical discontinuity of the right foot. No acute fracture or dislocation. Diffuse soft tissue swelling. Electronically Signed: Maciel Valencia MD at 9:45 EST ,
--- NOTE | 2022-07-23 09:40 | PCM.PN.ID ---
Physical Exam Narrative Feeling ok today, no fever, denies abd pain, no dyspnea, no nausea Const alert Resp normal air movement and clear to auscultation bilaterally Cardio regular rate and regular rhythm GI soft to palpation, non-tender and non-distended Extremity General Extremity: edema Skin Skin Narrative: Feet wrapped ID ID: Route of nutrition/ use of supplements: [] Nutritional Intake: [] IV Site: [] [place] Catheter: [] Assessment & Plan Assessment/Plan (1) Osteomyelitis: QUALIFIERS: Osteomyelitis type: other acute Osteomyelitis location: foot Laterality: right Qualified Code(s): M86.171 - Other acute osteomyelitis, right ankle and foot (2) Type 2 diabetes mellitus with diabetic polyneuropathy: QUALIFIERS: Diabetes mellitus termite exterminator helper insulin use: unspecified termite exterminator helper insulin use status Qualified Code(s): E11.42 - Type 2 diabetes mellitus with diabetic polyneuropathy (3) Sepsis: PLAN: sepsis due to MRSA bacteremia from L foot osteo with h/o DM neuropathy - cont vanc/zosyn. Followed by podiatry. Taken to OR 07/22/[address] Babin for bilat feet I&D. Surg cx with proteus, CoNS, strep-like. Now with ZACARIAS, neph consulted, renal u/s pending, and will adjust zosyn to q12h. Will follow (4) MRSA bacteremia:
[2022-07-23] MEDS: Menthol/Lanolin/Calamine/Znox 113 GM Tube 1 APPLIC TOPICAL ×4 (10:00→21:56)
--- NOTE | 2022-07-23 10:26 | CASEMGMT ---
Social Work SW met with pt and introduced self and role of SW. SW discussed discharge plan with pt and recommendations for SNF as pt is now bilateral LE non weightbearing and pt will likely need buttermaker helper IVATB. Pt confirms he does not have anyone to help him at home. A list of SNF providers including quality and resource use data and consistent with the patient?s preferred geographic region, medical needs, and insurance network were provided from the [facility] [facility]. Pt preferred provider is [facility]. [facility] Performance Consultant updated. Plan: Kevin, pending acceptance and precert GURMEET Sahni
--- NOTE | 2022-07-23 12:20 | PCM.PROGNOTE ---
Subjective Subjective Patient 1 day postop denies constitutional symptoms. Pain is well controlled. No new complaints overnight. Objective Data Objective Data Vital Signs: Vital Signs Temp Pulse Resp BP Pulse Ox O2 Del Method O2 Flow Rate 96.3 F L 92 31 H 107/66 94 Nasal Cannula 4 07/23/22 08:00 07/23/22 08:00 07/23/22 08:00 07/23/22 08:00 07/23/22 08:00 07/23/22 08:00 07/23/22 08:00 Oxygen Flow Rate (L/min) 4 Oxygen Delivery Method Nasal Cannula Weight: 178.4 kg Body Mass Index (BMI) 55.0 Intake & Output: Intake and Output for Last 24 Hours 07/21/22 07/22/22 07/23/22 23:59 23:59 23:59 Intake Total 3566.25 / 3566.25 1780 / 1780 100 / 100 Output Total 2550 / 2550 550 / 550 Balance 1016.25 / 1016.25 1230 / 1230 100 / 100 Lab / Micro Data Result Diagrams: 07/23/22 03:25 07/23/22 03:25 Labs: Laboratory Results - last 24 hr 07/22/22 06:17: POC Glucose 189 H 07/22/22 17:28: POC Glucose 178 H 07/22/22 21:10: POC Glucose 194 H 07/22/22 21:15: Vancomycin Trough 37.1 H 07/23/22 03:25: WBC 17.7 H, RBC 4.28 L, Hgb 11.3 L, Hct 37.0 L, MCV 86.4, MCH 26.4 L, MCHC 30.5 L, RDW Std Deviation 49.1 H, RDW Coeff of Maria Fernanda 15.8 H, Plt Count 95 L, MPV 12.9 H, Immature Gran % (Auto) 1.900 H, Neut % (Auto) 88.3 H, Lymph % (Auto) 4.1 L, [place] % (Auto) 5.2, Eos % (Auto) 0.2, Baso % (Auto) 0.3, Absolute Neuts (auto) 15.6 H, Absolute Lymphs (auto) 0.73 L, Nucleated RBC % 0, Platelet Estimate MOD DEC, Anisocytosis 1+ 07/23/22 03:25: Sodium 134 L, Potassium 4.1, Chloride 99, Carbon Dioxide 29.0, Anion Gap 6, BUN 52 H, Creatinine 3.94 H, Estim Creat Clear Calc 22.65, Est GFR (MDRD) Af Amer 21 L, Est GFR (MDRD) Non-Af 17 L, BUN/Creatinine Ratio 13.2, Glucose 171 H, Calcium 7.5 L, Magnesium 2.4 07/23/22 08:33: POC Glucose 171 H Micro: Microbiology 07/20/22 14:45 Blood Culture (Wb) - Left Hand Blood Culture - Final Staphylococcus aureus 07/20/22 14:55 Blood Culture (Wb) - Anticubital Right Bacteria Detection (PCR) - Final Meth. resistant Staph. aureus 07/20/22 14:55 Blood Culture (Wb) - Anticubital Right Blood Culture - Final Meth. resistant Staph. aureus 07/21/22 09:30 Bone - Left Foot Gram Stain - Final 07/21/22 09:30 Bone - Left Foot Wound Culture - Preliminary Proteus mirabilis Coag Negative Staph 07/21/22 11:00 Wound - Left Foot Gram Stain - Final 07/21/22 11:00 Wound - Left Foot Wound Culture - Preliminary Proteus mirabilis Coag Negative Staph Alpha hemolytic organism 07/22/22 09:50 Blood Culture (Wb) - Right Hand Blood Culture - Preliminary 07/20/22 18:10 Urine, Catheterized Urine Culture - Final Citrobacter freundii 07/20/22 19:47 Mucosa - Nasopharyngeal Respiratory Panel (PCR) - Final 07/20/22 18:10 Urine, Random Legionella Antigen - Final 07/20/22 18:10 Urine, Random Streptococcus pneumoniae Antigen (M - Final 07/20/22 13:55 Nasal Secretion SARS-CoV-2 & FLU Antigen (Rapid) - Final Physical Exam Narrative Patient AOx3. Neurovascular status unchanged from previous evaluation. Full-thickness wound noted to the plantar midfoot probes down to level of midfoot bones appear stable at this time with no gross signs of infection. Full-thickness wounds to the plantar left forefoot first wound is plantar second metatarsal phalangeal joint is a deep wound extends down the level of the second metatarsal demonstrates a granular base with no acute signs of infection. Second wound is plantar the fourth metatarsal phalangeal joint is demonstrated significant abscess that was decompressed today there is no residual purulent drainage or gross signs of infection. No signs of DVT upon examination. Assessment & Plan Assessment/Plan (1) Non-pressure chronic ulcer of other part of right foot with fat layer exposed: PLAN: Exam performed. Right foot upon debridement was negative for any acute infectious signs. In the operating room setting an abscess was decompressed from the plantar fourth metatarsal phalangeal joint demonstrated significant purulence. This was likely source for the patient's infection. Today the wounds appear stable but due to significant deformity and chronic wound to the right foot as well as new wounds to the left foot patient will require prolonged nonweightbearing to assist wound healing along with frequent dressing changes and possible long-term antibiotics per infectious disease discretion. For this reason I recommend discharge to SNF. Patient agreeable today. Wounds dressed today with packing dry sterile dressing and Jens bandage for compression. Due to elevated D-dimer and chronic lower extremity swelling due to be complete ordered bilateral duplex ultrasounds to rule out DVT. Jens bandage can be removed to perform these tests we will reevaluate the patient tomorrow and reapply dressings. Intraoperative cultures are pending. Based on intraoperative findings I believe the causative agent will likely be MRSA due to positive blood cultures upon admission. Leukocytosis at 17 noted today we will continue to observe this and ensure downward trend. Will follow closely. (2) Non-pressure chronic ulcer of other part of left foot with necrosis of bone: (3) Osteomyelitis of right foot: (4) Charcot's joint of right foot: (5) Type 2 diabetes mellitus with diabetic polyneuropathy:
--- NOTE | 2022-07-23 12:22 | VDLE_ITS ---
Reason For Study: Elevated D-Dimer RIGHT LEFT GSV is normal. GSV is normal. CFV is compressible, spontaneous, phasic, CFV is compressible, spontaneous, phasic, competent and demonstrates normal competent, and demonstrates normal augmentation. augmentation. FV is compressible, spontaneous, phasic, FV is compressible, spontaneous, phasic, competent and demonstrates normal competent and demonstrates normal augmentation. augmentation. RT POP V is dilated and non compressible with POP V is compressible, spontaneous, phasic, mixed intraluminal echoes. competent and demonstrates normal RT T/P Trunk is dilated and non compressible augmentation. with mixed intraluminal echoes. T/P Trunk is compressible. RT Gastrocnemius V is dilated and non PTV is compressible. compressible with mixed intraluminal echoes. LT PerV is compressible. PTV is compressible. RT PerV is compressible. Procedure This is a venous duplex using B-mode, color flow and spectral Doppler. Exam performed portable in ICU/CCU. The exam was diagnostic. Technically difficult exam due to body habitus. A preliminary report was called and/or faxed to CVICU non food receiving clerk. VL/Venous Duplex US - [place] Extrem Interpretation Summary Subacute deep venous thrombosis identified in the right popliteal, tibio-perone al trunk, and gastrocnemius veins Left lower extremity negative for deep venous thrombosis Ordering Physician: Eagle Babin Referring Physician: Gavin Raymundo Performed By: Dieter Aquino, RVT
--- NOTE | 2022-07-23 13:29 | WOUNDNOTE ---
wound photo: left foot
--- NOTE | 2022-07-23 13:30 | WOUNDNOTE ---
wound photo: right foot
[2022-07-23 16:40] LABS: Bedside Glucose 236 mg/dL (74-106)
[2022-07-23 18:31] LABS: International Normalized Ratio 1.2; Prothrombin Time (Protime)PT. 14.4 SECONDS (11.7-14.9)
[2022-07-23 18:32] LABS: Partial Thromboplast Time 27.2 Seconds (24.1-36.2)
[2022-07-23] MEDS: HEPARIN/D5w 25,000 UNITS 25,000 UNITS/250 ML IV.SOLN. 21 UNITS CONT INF (18:55)
[2022-07-23 19:21] LABS: Bedside Glucose 230 mg/dL (74-106)
[2022-07-23 19:46] LABS: Vancomycin, Random Level 35.3 ug/mL (0.0-15.0)
--- NOTE | 2022-07-23 19:52 | PCM.RX.CS ---
Consult Pharmacy has been consulted to manage selected antiobiotic: Vancomycin Type of Consult: Follow-up Prior Doses of Antibiotics Received/Current Regimen: Medications Discontinued Medications Vancomycin HCl 1,500 mg/ (Sodium Chloride) 530 mls @ 250 mls/hr IV Q8H BLAIR Last Admin: 07/22/22 13:31 Dose: Infused Labs: Sodium 134 mmol/L (136-145) L 07/23/22 03:25 Potassium 4.1 mmol/L (3.5-5.1) 07/23/22 03:25 Chloride 99 mmol/L (98-107) 07/23/22 03:25 Carbon Dioxide 29.0 mmol/L (21.0-32.0) 07/23/22 03:25 Anion Gap 6 (5-15) 07/23/22 03:25 BUN 52 mg/dL (7-18) H 07/23/22 03:25 Creatinine 3.94 mg/dL (0.70-1.30) H 07/23/22 03:25 Est GFR (MDRD) Af Amer 21 mL/min (>60) L 07/23/22 03:25 Est GFR (MDRD) Non-Af 17 mL/min (>60) L 07/23/22 03:25 BUN/Creatinine Ratio 13.2 RATIO (10-20) 07/23/22 03:25 Glucose 171 mg/dL (74-106) H 07/23/22 03:25 Vancomycin Trough 37.1 ug/mL (5.0-15.0) H 07/22/22 21:15 Random Vancomycin 35.3 ug/mL (0.0-15.0) H 07/23/22 18:50 Microbiology: Microbiology 07/22/22 16:39 Bone - Right Foot Gram Stain - Final 07/22/22 16:37 Wound Abcess - Right Foot Gram Stain - Final 07/22/22 16:37 Wound Abcess - Right Foot Wound Culture - Preliminary Staphylococcus species 07/22/22 16:35 Bone - Left Foot Gram Stain - Final 07/22/22 16:32 Wound Abcess - Left Foot Gram Stain - Final 07/22/22 16:32 Wound Abcess - Left Foot Wound Culture - Preliminary Staphylococcus species 07/20/22 14:55 Blood Culture (Wb) - Anticubital Right Bacteria Detection (PCR) - Final Meth. resistant Staph. aureus 07/20/22 14:55 Blood Culture (Wb) - Anticubital Right Blood Culture - Final Meth. resistant Staph. aureus 07/21/22 09:30 Bone - Left Foot Gram Stain - Final 07/21/22 09:30 Bone - Left Foot Wound Culture - Preliminary Proteus mirabilis Coag Negative Staph 07/21/22 09:30 Bone - Left Foot Anaerobic Culture - Preliminary 07/20/22 14:45 Blood Culture (Wb) - Left Hand Blood Culture - Final Staphylococcus aureus 07/21/22 11:00 Wound - Left Foot Gram Stain - Final 07/21/22 11:00 Wound - Left Foot Wound Culture - Preliminary Proteus mirabilis Coag Negative Staph Alpha hemolytic organism 07/22/22 09:50 Blood Culture (Wb) - Right Hand Blood Culture - Preliminary 07/20/22 18:10 Urine, Catheterized Urine Culture - Final Citrobacter freundii 07/20/22 19:47 Mucosa - Nasopharyngeal Respiratory Panel (PCR) - Final 07/20/22 18:10 Urine, Random Legionella Antigen - Final 07/20/22 18:10 Urine, Random Streptococcus pneumoniae Antigen (M - Final 07/20/22 13:55 Nasal Secretion SARS-CoV-2 & FLU Antigen (Rapid) - Final Pharmacy Plan for Drug Dosing: Random level still elevated, very little reduction. Recommend to re-check with labs on the . Pharmacy Service will continue to monitor and adjust dosing as required. Follow-Up Labs: Trough Vancomycin - 07/25 @ 0600 Random
[2022-07-23 19:59] LABS: Urine Sodium 20 mmol/L (Not Establ.)
[2022-07-23 20:10] LABS: Urea Nitrogen, Urine 370 mg/dL (NO RANGE EST.)
[2022-07-23 20:28] LABS: Osmolality, Urine 316 mOsm/KG
[2022-07-24] VITALS (13 sets, daily range): BP systolic 93–142; BP diastolic 52–85; PULSE 74–86; RESP 16–32; TEMP 36.4–37.1; O2SAT 90–98
[2022-07-24 00:30] LABS: Bedside Glucose 228 mg/dL (74-106)
[2022-07-24 01:46] LABS: Partial Thromboplast Time 31.8 Seconds (24.1-36.2)
[2022-07-24] MEDS: Heparin Injection (Vial) 5,000 UNIT/ML VIAL IV ×2 (01:52→09:21)
[2022-07-24 01:56] LABS: Absolute Lymphocyte Count 0.78 X10^3/uL (0.83-4.51); Absolute Neutrophil Count 13.7 X10^3/uL (2.0-7.7); Basophil# 0.06 X10^3/uL; Basophil% 0.4 % (0-1); Eosinophil# 0.07 X10^3/uL; Eosinophils% 0.4 % (0-5); Hematocrit 36.7 % (40-54); Lymphocyte # 0.78 X10^3/ul (0.83-4.51); Mean Corpuscular Hgb 26.1 pg (27.0-32.0); Mean Platelet Vol. 12.7 fl (6.2-12.0); Monocyte# 0.79 X10^3/uL; NRBC Flagged by Analyzer 0 % (0-5); Neutrophil # 13.67 X10^3/uL (2.7-7.7); POSITIVE COUNT YES; Platelet Count 91 K/mm3 (150-450); RBC Distribution Width CV 15.9 % (11.6-14.6); RBC Distribution Width SD 50.5 fl (35.1-43.9); Red Blood Count 4.22 M/mm3 (4.6-6.2); White Blood Count 15.7 K/mm3 (4.4-11.0)
[2022-07-24 02:09] LABS: Anion Gap 7 (5-15); BUN 70 mg/dL (7-18); BUN/Creat Ratio 11.3 RATIO (10-20); Calcium,Total 7.5 mg/dL (8.5-10.1); Chloride 99 mmol/L (98-107); Creatinine, Serum 6.21 mg/dL (0.70-1.30); EST Glomerular Filtration Rate 10 mL/min (>60); Est Glom Filt Rate - Afr Amer 12 mL/min (>60); Estimated Creatinine Clearance 14.37 ml/min; Glucose 210 mg/dL (74-106); Potassium 4.1 mmol/L (3.5-5.1); Sodium Level 134 mmol/L (136-145)
[2022-07-24] MEDS: HEPARIN/D5w 25,000 UNITS 25,000 UNITS/250 ML IV.SOLN. 23 UNITS CONT INF (05:53)
--- NOTE | 2022-07-24 06:43 | PN.CC_ITS ---
Assessment & Plan Assessment/Plan (1) Sepsis: PLAN: Plan RECOMMENDATIONS: 1. Antimicrobials per infectious diseases. 2. Continue local wound care. 3. Continue appropriate DVT prophylaxis. 4. Wean supplemental oxygen to maintain saturations at or above 90%. 5. Encourage incentive spirometer use and mobilize patient as tolerated. IMPRESSIONS: 1. Sepsis The patient presented to the hospital with sepsis due to osteomyelitis with secondary MRSA bacteremia and acute sepsis related organ dysfunction as evidenced by lactic acidemia. The patient did receive supplemental IV fluid hydration and has remained hemodynamically stable. The patient remains on appropriate antimicrobials. The patient did ultimately undergo surgical debridement under the discretion of podiatry on July 22. Echocardiogram did not reveal any evidence of valvular vegetations. I do suspect that the findings noted on his CT chest likely represent hematogenous spread of his underlying infection. Regardless, I would recommend a follow-up chest CT in 6 to 8 weeks to document resolution. No additional intervention is required at this particular time. 2. Acute kidney injury Most likely prerenal in etiology in the setting of #1. The patient remains hemodynamically stable. Nephrology is following to assist with medical management. Renal ultrasound was unremarkable. 3. Chronic tobacco dependency without diagnosis of COPD Although the patient has a longstanding tobacco abuse history, he denied ever having been diagnosed with COPD. It is reasonable to continue as needed bronchodilator therapy. Recommend weaning supplemental oxygen as tolerated for saturations greater than 90%. Nicotine replacement therapy can be offered to the patient while admitted to the hospital. 4. History of osteomyelitis with Charcot arthropathy/hypertension/hyperlipidemia/morbid obesity/diabetes mellitus Complicates care, management, recovery and prognosis. Continue home medications as indicated. This note was generated with [employer] dictation software. It may contain incorrect words, spelling, and punctuation that were not noted in checking the note before signing. Subjective Subjective The patient was seen and examined at the bedside this morning. Events from the last 24 hours have been reviewed. The patient is currently afebrile, hemodynamically stable and maintaining appropriate oxygen saturations on 4 L/min via nasal cannula. The patient is documented to be overall net +4.3 L for the hospitalization. Creatinine has increased to 6.21. BUN is elevated at 70. Objective Data Objective Data The patient's most recent lab work, culture data and imaging studies have all been personally reviewed. MRI of the left foot demonstrated evidence of second and third metatarsal osteomyelitis. No valvular vegetations were noted on echocardiogram. Blood culture dated July 20 was positive for MRSA. Wound culture dated July 21 was positive for Proteus mirabilis. Vital Signs: Vital Signs Temp Pulse Resp BP Pulse Ox O2 Del Method O2 Flow Rate 98.2 F 79 30 H 102/56 L 97 Nasal Cannula 4 07/24/22 05:00 07/24/22 05:00 07/24/22 05:00 07/24/22 05:00 07/24/22 05:00 07/24/22 05:00 07/24/22 05:00 Oxygen Flow Rate (L/min) 4 Oxygen Delivery Method Nasal Cannula Weight: 393 lb 1.347 oz Body Mass Index (BMI) 55.0 Intake & Output: Intake and Output for Last 24 Hours 07/22/22 07/23/22 07/24/22 23:59 23:59 23:59 Intake Total 1780 / 1780 100 / 180 368.37 / 368.37 Output Total 550 / 550 100 / 100 Balance 1230 / 1230 100 / 180 268.37 / 268.37 Lab / Micro Data Attestation: I reviewed the patient's lab results. Result Diagrams: 07/24/22 01:30 07/24/22 01:30 Labs: Laboratory Results - last 24 hr 07/23/22 08:33: POC Glucose 171 H 07/23/22 12:06: POC Glucose 236 H 07/23/22 16:49: POC Glucose 230 H 07/23/22 18:10: PT 14.4, INR 1.2, APTT 27.2 07/23/22 18:50: Random Vancomycin 35.3 H 07/23/22 18:50: Ur Random Sodium 20 07/23/22 18:50: Urine Urea Nitrogen 370 07/23/22 18:50: Urine Osmolality 316, Urine Creatinine 189.00 07/23/22 21:54: POC Glucose 228 H 07/24/22 01:30: APTT 31.8 07/24/22 01:30: WBC 15.7 H, RBC 4.22 L, Hgb 11.0 L, Hct 36.7 L, MCV 87.0, MCH 26.1 L, MCHC 30.0 L, RDW Std Deviation 50.5 H, RDW Coeff of Maria Fernanda 15.9 H, Plt Count 91 L, MPV 12.7 H, Immature Gran % (Auto) 2.200 H, Neut % (Auto) 87.0 H, Lymph % (Auto) 5.0 L, [place] % (Auto) 5.0, Eos % (Auto) 0.4, Baso % (Auto) 0.4, Absolute Neuts (auto) 13.7 H, Absolute Lymphs (auto) 0.78 L, Nucleated RBC % 0 07/24/22 01:30: Sodium 134 L, Potassium 4.1, Chloride 99, Carbon Dioxide 28.0, Anion Gap 7, BUN 70 H, Creatinine 6.21 H, Estim Creat Clear Calc 14.37, Est GFR (MDRD) Af Amer 12 L, Est GFR (MDRD) Non-Af 10 L, BUN/Creatinine Ratio 11.3, Glucose 210 H, Calcium 7.5 L Micro: Microbiology 07/23/22 10:50 Blood Culture (Wb) - Right Hand Blood Culture - Preliminary 07/22/22 16:39 Bone - Right Foot Gram Stain - Final 07/22/22 16:37 Wound Abcess - Right Foot Gram Stain - Final 07/22/22 16:37 Wound Abcess - Right Foot Wound Culture - Preliminary Staphylococcus species 07/22/22 16:35 Bone - Left Foot Gram Stain - Final 07/22/22 16:32 Wound Abcess - Left Foot Gram Stain - Final 07/22/22 16:32 Wound Abcess - Left Foot Wound Culture - Preliminary Staphylococcus species 07/20/22 14:55 Blood Culture (Wb) - Anticubital Right Bacteria Detection (PCR) - Final Meth. resistant Staph. aureus 07/20/22 14:55 Blood Culture (Wb) - Anticubital Right Blood Culture - Final Meth. resistant Staph. aureus 07/21/22 09:30 Bone - Left Foot Gram Stain - Final 07/21/22 09:30 Bone - Left Foot Wound Culture - Preliminary Proteus mirabilis Coag Negative Staph 07/21/22 09:30 Bone - Left Foot Anaerobic Culture - Preliminary 07/20/22 14:45 Blood Culture (Wb) - Left Hand Blood Culture - Final Staphylococcus aureus 07/21/22 11:00 Wound - Left Foot Gram Stain - Final 07/21/22 11:00 Wound - Left Foot Wound Culture - Preliminary Proteus mirabilis Coag Negative Staph Alpha hemolytic organism 07/22/22 09:50 Blood Culture (Wb) - Right Hand Blood Culture - Preliminary 07/20/22 18:10 Urine, Catheterized Urine Culture - Final Citrobacter freundii 07/20/22 19:47 Mucosa - Nasopharyngeal Respiratory Panel (PCR) - Final 07/20/22 18:10 Urine, Random Legionella Antigen - Final 07/20/22 18:10 Urine, Random Streptococcus pneumoniae Antigen (M - Final 07/20/22 13:55 Nasal Secretion SARS-CoV-2 & FLU Antigen (Rapid) - Final Radiography Diagnostic Testing: Radiology Impression Renal Ultrasound 07/23/22 06:41 IMPRESSION: Normal ultrasound of the kidneys. Electronically Signed: Jeronimo Gomez MD at 15:04 EST , Physical Exam Const alert and no apparent distress Constitutional Narrative: Super morbidly obese. General Appearance: cooperative HEENT normocephalic, head/scalp atraumatic and moist oral mucous membranes Eyes PERRL, EOMs intact bilaterally and conjunctivae normal Neck supple General: trachea midline Chest inspection of chest normal Resp Auscultation: diminished lung sounds; Negative for rales, rhonchi or wheezes Cardio regular rate and regular rhythm GI normal to inspection, nondistended, normoactive bowel sounds Extremity Extremity Narrative: Wrapped lower extremities. General Extremity: Negative for clubbing Skin General Skin Exam: venous stasis and dermatitis Neuro oriented x3, CN's II-XII intact bilaterally, moves all extremities and no focal motor deficits Psych cooperative and affect normal Charges/Coding Visit Charges Inpatient E&M: 27437 Subs Hosp L2
[2022-07-24 07:22] LABS: CPK Total, Creatine Kinase 27 U/L (39-308)
[2022-07-24 08:56] LABS: Partial Thromboplast Time 36.6 Seconds (24.1-36.2)
[2022-07-24] MEDS: Insulin Lispro 100 UNIT/ML INSULN.PEN SC ×4 (09:21→21:08)
[2022-07-24] MEDS: Menthol/Lanolin/Calamine/Znox 113 GM Tube 1 APPLIC TOPICAL ×4 (09:27→21:09)
[2022-07-24] MEDS: Juven (unflavored) Packet 1 PACKET PO (09:31)
--- NOTE | 2022-07-24 10:25 | PCM.PN.HOSP ---
Subjective Subjective Follow-up for ZACARIAS. Worsening of kidney function. Patient is confused and disoriented. Objective Data Objective Data Vital Signs: Vital Signs Temp Pulse Resp BP Pulse Ox O2 Del Method O2 Flow Rate 98.2 F 79 30 H 102/56 L 90 Room Air 4 07/24/22 05:00 07/24/22 05:00 07/24/22 05:00 07/24/22 05:00 07/24/22 09:49 07/24/22 09:49 07/24/22 05:00 Oxygen Flow Rate (L/min) 4 Oxygen Delivery Method Room Air Weight: 393 lb 1.347 oz Body Mass Index (BMI) 55.0 Intake & Output: Intake and Output for Last 24 Hours 07/22/22 07/23/22 07/24/22 23:59 23:59 23:59 Intake Total 1780 / 1780 100 / 180 368.37 / 368.37 Output Total 550 / 550 100 / 100 Balance 1230 / 1230 100 / 180 268.37 / 268.37 Lab / Micro Data Result Diagrams: 07/24/22 01:30 07/24/22 13:30 Labs: Laboratory Results - last 24 hr 07/23/22 12:06: POC Glucose 236 H 07/23/22 16:49: POC Glucose 230 H 07/23/22 18:10: PT 14.4, INR 1.2, APTT 27.2 07/23/22 18:50: Random Vancomycin 35.3 H 07/23/22 18:50: Ur Random Sodium 20 07/23/22 18:50: Urine Urea Nitrogen 370 07/23/22 18:50: Urine Osmolality 316, Urine Creatinine 189.00 07/23/22 21:54: POC Glucose 228 H 07/24/22 01:30: APTT 31.8 07/24/22 01:30: WBC 15.7 H, RBC 4.22 L, Hgb 11.0 L, Hct 36.7 L, MCV 87.0, MCH 26.1 L, MCHC 30.0 L, RDW Std Deviation 50.5 H, RDW Coeff of Maria Fernanda 15.9 H, Plt Count 91 L, MPV 12.7 H, Immature Gran % (Auto) 2.200 H, Neut % (Auto) 87.0 H, Lymph % (Auto) 5.0 L, [place] % (Auto) 5.0, Eos % (Auto) 0.4, Baso % (Auto) 0.4, Absolute Neuts (auto) 13.7 H, Absolute Lymphs (auto) 0.78 L, Nucleated RBC % 0 07/24/22 01:30: Sodium 134 L, Potassium 4.1, Chloride 99, Carbon Dioxide 28.0, Anion Gap 7, BUN 70 H, Creatinine 6.21 H, Estim Creat Clear Calc 14.37, Est GFR (MDRD) Af Amer 12 L, Est GFR (MDRD) Non-Af 10 L, BUN/Creatinine Ratio 11.3, Glucose 210 H, Calcium 7.5 L 07/24/22 01:30: Total Creatine Kinase 27 L 07/24/22 08:25: APTT 36.6 H Micro: Microbiology 07/22/22 16:32 Wound Abcess - Left Foot Gram Stain - Final 07/22/22 16:32 Wound Abcess - Left Foot Wound Culture - Preliminary Staphylococcus aureus 07/22/22 16:39 Bone - Right Foot Gram Stain - Final 07/22/22 16:39 Bone - Right Foot Wound Culture - Final No growth aerobically. 07/22/22 16:37 Wound Abcess - Right Foot Gram Stain - Final 07/22/22 16:37 Wound Abcess - Right Foot Wound Culture - Final Meth. resistant Staph. aureus 07/22/22 16:35 Bone - Left Foot Gram Stain - Final 07/22/22 16:35 Bone - Left Foot Wound Culture - Final Meth. resistant Staph. aureus 07/21/22 11:00 Wound - Left Foot Gram Stain - Final 07/21/22 11:00 Wound - Left Foot Wound Culture - Final Proteus mirabilis Kocuria kristinae 07/21/22 09:30 Bone - Left Foot Gram Stain - Final 07/21/22 09:30 Bone - Left Foot Wound Culture - Final Proteus mirabilis Kocuria kristinae 07/23/22 10:50 Blood Culture (Wb) - Right Hand Blood Culture - Preliminary 07/22/22 09:50 Blood Culture (Wb) - Right Hand Blood Culture - Final Staphylococcus aureus 07/20/22 14:55 Blood Culture (Wb) - Anticubital Right Bacteria Detection (PCR) - Final Meth. resistant Staph. aureus 07/20/22 14:55 Blood Culture (Wb) - Anticubital Right Blood Culture - Final Meth. resistant Staph. aureus 07/20/22 14:45 Blood Culture (Wb) - Left Hand Blood Culture - Final Staphylococcus aureus 07/20/22 18:10 Urine, Catheterized Urine Culture - Final Citrobacter freundii 07/20/22 19:47 Mucosa - Nasopharyngeal Respiratory Panel (PCR) - Final 07/20/22 18:10 Urine, Random Legionella Antigen - Final 07/20/22 18:10 Urine, Random Streptococcus pneumoniae Antigen (M - Final 07/20/22 13:55 Nasal Secretion SARS-CoV-2 & FLU Antigen (Rapid) - Final Radiography Diagnostic Testing: Radiology Impression Renal Ultrasound 07/23/22 06:41 IMPRESSION: Normal ultrasound of the kidneys. Electronically Signed: Jeronimo Gomez MD at 15:04 EST , Physical Exam Narrative Confused and disoriented. Patient asking for discharge. Kidney function is worsening. Physical exam General: Confused, disoriented, irritable BMI 54.5 kg/m?. HEENT: Atraumatic, PERRLA, EOMI, Normocephalic Oral: Deep oropharyngeal structures could not be seen. No Gingival or Mucosal Lesions/ Ulcerations Neck: Supple, No JVD, Negative Carotid Bruits Chest wall/lungs: No dyspnea. No chest wall tenderness. Air entry diminished in bilateral lung bases. Mild bilateral expiratory rhonchi and wheezing Cardiovascular: Regular rate, Regular Rhythm, Normal S1, Normal S2, No murmurs Abdomen: Bowel Sounds Present, Soft, Non Tender, Non-Distended : No renal angle tenderness. No suprapubic tenderness. Extremities: Bilateral below-knee pitting and nonpitting edema. Capillary Refill Less than 3 Seconds Skin:Ulcer over both feet. Status post excisional debridement and Jens wrap bandage. Musculoskeletal: Right, forefoot metatarsal amputation. ROM restricted at hip knee and ankle level. Muscle strength 4/5. Neurological: Cranial nerves II-XII grossly intact, DTR 2+/4, bilateral lower legs neuropathy Psych/Mental Status: Flat affect. Assessment & Plan Assessment/Plan (1) Hypoxia: PLAN: Plan The patient is a 52 y/o male was admitted in ICU through ED for 2 days of increasing dyspnea, worse with any exertion attempt. #1. Sepsis with secondary MRSA bacteremia most likely due to osteomyelitis: Patient is being admitted in ICU. The patient presented with sepsis, most likely due to osteomyelitis with acute sepsis-related organ dysfunctevidenced by lactic acidosis. Patient had IV fluid rehydration. Patient maintained blood pressure. Podiatry and ID consulted. CT chest reviewed and shows multiple small cavitary lesions throughout lungs suggestive of septic emboli. The patient is being comanaged with prototype machinist and ID. Viticulturist recommended repeat chest CT in 6 to 8 weeks or follow-up for reevaluation. 2D echo shows EF 55. Grossly normal LV size, wall motion and systolic function although study was technically difficult. 07/22: Multiple blood culture shows MRSA. Urine culture Citrobacter freundii [id number] colonies resistant to Levaquin and Cipro. Prelim wound culture growing gram-negative carlos, gram-positive rods and rare GPC. Continue broad-spectrum antibiotic. Lower extremity arterial study shows right and left normal KRIS with normal Doppler waveform at rest. 2D echo EF 55% with grossly normal LV size wall motion and systolic function. MRI right foot shows multiple midfoot neuropathic osteoarthropathy along with bone marrow signal alteration concerning for osteomyelitis. MRI left foot second and third metatarsal osteomyelitis large collection 2.3 x 1.3 cm plantar aspect. Patient is going for OR today. 07/23: Patient had excisional debridement of left foot up to the level of muscle and right foot excisional debridement to the level of bone. Wound culture is growing preliminary Proteus mirabilis. Prelim blood culture shows gram-positive cocci in clusters from 07/22 and earlier blood culture is growing MRSA 07/24: Continue broad-spectrum antibiotic. Antibiotic vancomycin changed to daptomycin. Continue Zosyn 2. Acute kidney injury most likely prerenal azotemia/hemodynamic fluid shift.? This may be related with sepsis.? Coin Counter And Wrapper was consulted.? Labs for Jana and complement and ultrasound ordered.? Lisinopril started.? Patient also had drop in her platelet count from about 175,000-90,000 therefore Lovenox dose decreased to 30 mg SQ twice daily after discussion with the warehousing technician in [place] with decreased creatinine clearance and morbid obesity. 07/24: Further worsening of creatinine. Creatinine 7.11. Patient is well for confused and disoriented. BUN 83. Discussed with the warehousing technician. Dialysis catheter was inserted. Plan for dialysis probably tomorrow. History of chronic smoking/tobacco, nicotine dependency without diagnosis of COPD: Patient has prolonged history of smoking and still continues. Does not have documented diagnosis of COPD. Patient does not use oxygen at home. Bronchodilator as needed. Viticulturist recommended discontinuation of his scheduled vaginal cytosol. On nicotine patch. #3. Hypovolemic hypotonic hyponatremia, mild: Admission sodium 127, prior baselines appear in the normal range primarily, chloride also decreased to 89, repeat sodium shows improvement 132. #4. Hypokalemia: Admission K+ 3.3, repeat potassium 3.6. Serum magnesium 1.7. 07/22: K3.5. Magnesium 2.0. 07/23: K4.1. #5. Hx Charcot arthropathy with Hx osteomyelitis, Hx nonpressure chronic ulcer right midfoot: Patient had right foot transmetatarsal amputation. Patient follows Dr. Acevedo as an outpatient wound center with last visit on 07/16/2022 and had office local debridement and was advised nonweightbearing with use of wheelchair and orthotics. Builder Beam and wound care nurses consulted. 07/22: Findings of MRI described above and shows neuroarthropathy and Charcot's joint along with osteomyelitis. 6 hypertension: Continue home regimen including lisinopril with further adjustments as needed pending blood pressure trend, PRN hydralazine. 7. Hyperlipidemia: Not on statin therapy per current list, encourage continued outpatient follow-up. 8. Diabetes mellitus type II: Hold oral home regimen, ADA diet, accu checks w/ ISS. 9.. Morbid Obesity: Weight loss and lifestyle changes encouraged. 10. Bilateral lower extremity chronic venous stasis disease: We will maintain on low-dose aspirin, encourage continued hypertensive, hyperlipidemic and DM control. #11. GERD: On Protonix #12 KRYSTAL: CPAP nightly. 13 chronic DVT: Venous duplex reported right popliteal, tibioperoneal trunk consistent with chronic DVT. Compressible right GSV. No apparent change from previous exam of July 2020. Patient on IV heparin drip. CODE status: Patient is does not have healthcare power of manager of financial reporting nor living will in place. Discussed CODE status at length including difference between FULL code, DNR-CCA and DNR-CC status. Following discussions about the differences in these status, requested Full Code status. Total time of the visit including total time spent in counseling or coordination of care, (more than 50% of the total time, spent in obtaining medical information from nurses and other ancillary care providers,explaining to the patient about labs, imaging, diagnosis and management of active complex medical conditions), , review of labs and imaging is 45 minutes Charges/Coding Visit Charges Inpatient E&M: [id number] [facility] L3
--- NOTE | 2022-07-24 10:28 | PCM.PN.ID ---
Physical Exam Narrative Feeling better, no fever, no dyspnea, no n/v/d. Const alert and no apparent distress Resp normal air movement and clear to auscultation bilaterally Cardio regular rate and regular rhythm GI soft to palpation, non-tender and non-distended Extremity General Extremity: edema Skin Skin Narrative: feet wrapped ID ID: Route of nutrition/ use of supplements: [] Nutritional Intake: [] IV Site: [] Faulkner Catheter: [] Assessment & Plan Assessment/Plan (1) Osteomyelitis: QUALIFIERS: Osteomyelitis type: other acute Osteomyelitis location: foot Laterality: right Qualified Code(s): M86.171 - Other acute osteomyelitis, right ankle and foot (2) Type 2 diabetes mellitus with diabetic polyneuropathy: QUALIFIERS: Diabetes mellitus penitentiary insulin use: unspecified intermission coordinator insulin use status Qualified Code(s): E11.42 - Type 2 diabetes mellitus with diabetic polyneuropathy (3) Sepsis: PLAN: sepsis due to MRSA bacteremia from L foot osteo with h/o DM neuropathy - on vanc/zosyn. Followed by podiatry. Taken to OR 07/22/[address] Babin for bilat feet I&D. Surg cx with proteus, CoNS, strep. With worsening ZACARIAS, will stop vanc, change to dapto. Repeat bcx today and tomorrow. Will follow (4) MRSA bacteremia:
--- NOTE | 2022-07-24 11:13 | PCM.PN.REN ---
Subjective Subjective following for ZACARIAS Resting quietly in bed. Alert to name, confused to time and place. No overnight events Objective Data Objective Data Vital Signs: Vital Signs Temp Pulse Resp BP Pulse Ox O2 Del Method O2 Flow Rate 98.2 F 79 30 H 102/56 L 90 Room Air 4 07/24/22 05:00 07/24/22 05:00 07/24/22 05:00 07/24/22 05:00 07/24/22 09:49 07/24/22 09:49 07/24/22 05:00 Oxygen Flow Rate (L/min) 4 Oxygen Delivery Method Room Air Weight: 178.3 kg Body Mass Index (BMI) 55.0 Intake & Output: Intake and Output for Last 24 Hours 07/22/22 07/23/22 07/24/22 23:59 23:59 23:59 Intake Total 1780 / 1780 100 / 180 368.37 / 368.37 Output Total 550 / 550 100 / 100 Balance 1230 / 1230 100 / 180 268.37 / 268.37 Lab / Micro Data Result Diagrams: 07/24/22 01:30 07/24/22 13:30 Labs: Laboratory Results - last 24 hr 07/23/22 12:06: POC Glucose 236 H 07/23/22 16:49: POC Glucose 230 H 07/23/22 18:10: PT 14.4, INR 1.2, APTT 27.2 07/23/22 18:50: Random Vancomycin 35.3 H 07/23/22 18:50: Ur Random Sodium 20 07/23/22 18:50: Urine Urea Nitrogen 370 07/23/22 18:50: Urine Osmolality 316, Urine Creatinine 189.00 07/23/22 21:54: POC Glucose 228 H 07/24/22 01:30: APTT 31.8 07/24/22 01:30: WBC 15.7 H, RBC 4.22 L, Hgb 11.0 L, Hct 36.7 L, MCV 87.0, MCH 26.1 L, MCHC 30.0 L, RDW Std Deviation 50.5 H, RDW Coeff of Maria Fernanda 15.9 H, Plt Count 91 L, MPV 12.7 H, Immature Gran % (Auto) 2.200 H, Neut % (Auto) 87.0 H, Lymph % (Auto) 5.0 L, Larue % (Auto) 5.0, Eos % (Auto) 0.4, Baso % (Auto) 0.4, Absolute Neuts (auto) 13.7 H, Absolute Lymphs (auto) 0.78 L, Nucleated RBC % 0 07/24/22 01:30: Sodium 134 L, Potassium 4.1, Chloride 99, Carbon Dioxide 28.0, Anion Gap 7, BUN 70 H, Creatinine 6.21 H, Estim Creat Clear Calc 14.37, Est GFR (MDRD) Af Amer 12 L, Est GFR (MDRD) Non-Af 10 L, BUN/Creatinine Ratio 11.3, Glucose 210 H, Calcium 7.5 L 07/24/22 01:30: Total Creatine Kinase 27 L 07/24/22 08:25: APTT 36.6 H Micro: Microbiology 07/22/22 16:32 Wound Abcess - Left Foot Gram Stain - Final 07/22/22 16:32 Wound Abcess - Left Foot Wound Culture - Preliminary Staphylococcus aureus 07/22/22 16:39 Bone - Right Foot Gram Stain - Final 07/22/22 16:39 Bone - Right Foot Wound Culture - Final No growth aerobically. 07/22/22 16:37 Wound Abcess - Right Foot Gram Stain - Final 07/22/22 16:37 Wound Abcess - Right Foot Wound Culture - Final Meth. resistant Staph. aureus 07/22/22 16:35 Bone - Left Foot Gram Stain - Final 07/22/22 16:35 Bone - Left Foot Wound Culture - Final Meth. resistant Staph. aureus 07/21/22 11:00 Wound - Left Foot Gram Stain - Final 07/21/22 11:00 Wound - Left Foot Wound Culture - Final Proteus mirabilis Kocuria kristinae 07/21/22 09:30 Bone - Left Foot Gram Stain - Final 07/21/22 09:30 Bone - Left Foot Wound Culture - Final Proteus mirabilis Kocuria kristinae 07/23/22 10:50 Blood Culture (Wb) - Right Hand Blood Culture - Preliminary 07/22/22 09:50 Blood Culture (Wb) - Right Hand Blood Culture - Final Staphylococcus aureus 07/20/22 14:55 Blood Culture (Wb) - Anticubital Right Bacteria Detection (PCR) - Final Meth. resistant Staph. aureus 07/20/22 14:55 Blood Culture (Wb) - Anticubital Right Blood Culture - Final Meth. resistant Staph. aureus 07/20/22 14:45 Blood Culture (Wb) - Left Hand Blood Culture - Final Staphylococcus aureus 07/20/22 18:10 Urine, Catheterized Urine Culture - Final Citrobacter freundii 07/20/22 19:47 Mucosa - Nasopharyngeal Respiratory Panel (PCR) - Final 07/20/22 18:10 Urine, Random Legionella Antigen - Final 07/20/22 18:10 Urine, Random Streptococcus pneumoniae Antigen (M - Final 07/20/22 13:55 Nasal Secretion SARS-CoV-2 & FLU Antigen (Rapid) - Final Radiography Diagnostic Testing: Radiology Impression Renal Ultrasound 07/23/22 06:41 IMPRESSION: Normal ultrasound of the kidneys. Electronically Signed: Jeronimo Gomez MD at 15:04 EST , Physical Exam Narrative General: Alert and no apparent distress HEENT: Normocephalic Heart: Normal S1, S2. No R/M/G. Lungs: Diminished lung sounds; Negative for rales, rhonchi or wheezes Abdomen: Normal bowel sounds Extremity: No edema. Faulkner with scant yellow urine in bag Assessment & Plan Assessment/Plan (1) ZACARIAS (acute kidney injury): (2) Hyponatremia: (3) Sepsis: PLAN: Plan Initially nonoliguric acute kidney injury likely prerenal from sepsis now evolved to ATN. Another possible cause of ZACARIAS could be from nephrotoxic ATN from vancomycin. Vanco trough and random levels elevated at 37 and 35. Off lisinopril. Serum creatinine was 1.29 mg/dL on admission (07/20). Labs this morning serum creatinine is up to 6.21 mg/dL, potassium 4.1. At this time there is no acute indication for ITINERANT TEACHER ASSISTANT as patient is not hyperkalemic, acid-base acceptable and no significant overt fluid overload however patient may be heading towards needing ITINERANT TEACHER ASSISTANT. We will recheck labs this afternoon and if renal function continues worsening then we will likely move forward with placing non-tunneled temporary HD catheter and starting ITINERANT TEACHER ASSISTANT. Renal ultrasound did not show any hydronephrosis. Baseline serum creatinine appears to be around 1.10 mg/dL. C3, C4 pending Blood pressures acceptable, not on any antihypertensives MRSA bacteremia/osteomyelitis of left foot/chronic ulcers bilateral feet s/p bilateral feet I&D: on antibiotics, daptomycin and Zosyn. ID following I spoke to patient's sister Shanae and updated on above. [phone]. Shanae in agreement with ITINERANT TEACHER ASSISTANT if needed. Patient is not , does not have children. Discussed with Dr. Al
--- NOTE | 2022-07-24 11:34 | PCM.PROGNOTE ---
Subjective Subjective PAtient confused today, did not recognize me. Denies constitutionals. No shortness of breath today. No other complaints. Objective Data Objective Data Vital Signs: Vital Signs Temp Pulse Resp BP Pulse Ox O2 Del Method O2 Flow Rate 98.2 F 79 30 H 102/56 L 90 Room Air 4 07/24/22 05:00 07/24/22 05:00 07/24/22 05:00 07/24/22 05:00 07/24/22 09:49 07/24/22 09:49 07/24/22 05:00 Oxygen Flow Rate (L/min) 4 Oxygen Delivery Method Room Air Weight: 178.3 kg Body Mass Index (BMI) 55.0 Intake & Output: Intake and Output for Last 24 Hours 07/22/22 07/23/22 07/24/22 23:59 23:59 23:59 Intake Total 1780 / 1780 100 / 180 368.37 / 368.37 Output Total 550 / 550 100 / 100 Balance 1230 / 1230 100 / 180 268.37 / 268.37 Lab / Micro Data Result Diagrams: 07/24/22 01:30 07/24/22 01:30 Labs: Laboratory Results - last 24 hr 07/23/22 12:06: POC Glucose 236 H 07/23/22 16:49: POC Glucose 230 H 07/23/22 18:10: PT 14.4, INR 1.2, APTT 27.2 07/23/22 18:50: Random Vancomycin 35.3 H 07/23/22 18:50: Ur Random Sodium 20 07/23/22 18:50: Urine Urea Nitrogen 370 07/23/22 18:50: Urine Osmolality 316, Urine Creatinine 189.00 07/23/22 21:54: POC Glucose 228 H 07/24/22 01:30: APTT 31.8 07/24/22 01:30: WBC 15.7 H, RBC 4.22 L, Hgb 11.0 L, Hct 36.7 L, MCV 87.0, MCH 26.1 L, MCHC 30.0 L, RDW Std Deviation 50.5 H, RDW Coeff of Maria Fernanda 15.9 H, Plt Count 91 L, MPV 12.7 H, Immature Gran % (Auto) 2.200 H, Neut % (Auto) 87.0 H, Lymph % (Auto) 5.0 L, [place] % (Auto) 5.0, Eos % (Auto) 0.4, Baso % (Auto) 0.4, Absolute Neuts (auto) 13.7 H, Absolute Lymphs (auto) 0.78 L, Nucleated RBC % 0 07/24/22 01:30: Sodium 134 L, Potassium 4.1, Chloride 99, Carbon Dioxide 28.0, Anion Gap 7, BUN 70 H, Creatinine 6.21 H, Estim Creat Clear Calc 14.37, Est GFR (MDRD) Af Amer 12 L, Est GFR (MDRD) Non-Af 10 L, BUN/Creatinine Ratio 11.3, Glucose 210 H, Calcium 7.5 L 07/24/22 01:30: Total Creatine Kinase 27 L 07/24/22 08:25: APTT 36.6 H Micro: Microbiology 07/22/22 16:32 Wound Abcess - Left Foot Gram Stain - Final 07/22/22 16:32 Wound Abcess - Left Foot Wound Culture - Preliminary Staphylococcus aureus 07/22/22 16:39 Bone - Right Foot Gram Stain - Final 07/22/22 16:39 Bone - Right Foot Wound Culture - Final No growth aerobically. 07/22/22 16:37 Wound Abcess - Right Foot Gram Stain - Final 07/22/22 16:37 Wound Abcess - Right Foot Wound Culture - Final Meth. resistant Staph. aureus 07/22/22 16:35 Bone - Left Foot Gram Stain - Final 07/22/22 16:35 Bone - Left Foot Wound Culture - Final Meth. resistant Staph. aureus 07/21/22 11:00 Wound - Left Foot Gram Stain - Final 07/21/22 11:00 Wound - Left Foot Wound Culture - Final Proteus mirabilis Kocuria kristinae 07/21/22 09:30 Bone - Left Foot Gram Stain - Final 07/21/22 09:30 Bone - Left Foot Wound Culture - Final Proteus mirabilis Kocuria kristinae 07/23/22 10:50 Blood Culture (Wb) - Right Hand Blood Culture - Preliminary 07/22/22 09:50 Blood Culture (Wb) - Right Hand Blood Culture - Final Staphylococcus aureus 07/20/22 14:55 Blood Culture (Wb) - Anticubital Right Bacteria Detection (PCR) - Final Meth. resistant Staph. aureus 07/20/22 14:55 Blood Culture (Wb) - Anticubital Right Blood Culture - Final Meth. resistant Staph. aureus 07/20/22 14:45 Blood Culture (Wb) - Left Hand Blood Culture - Final Staphylococcus aureus 07/20/22 18:10 Urine, Catheterized Urine Culture - Final Citrobacter freundii 07/20/22 19:47 Mucosa - Nasopharyngeal Respiratory Panel (PCR) - Final 07/20/22 18:10 Urine, Random Legionella Antigen - Final 07/20/22 18:10 Urine, Random Streptococcus pneumoniae Antigen (M - Final 07/20/22 13:55 Nasal Secretion SARS-CoV-2 & FLU Antigen (Rapid) - Final Radiography Diagnostic Testing: Radiology Impression Renal Ultrasound 07/23/22 06:41 IMPRESSION: Normal ultrasound of the kidneys. Electronically Signed: Jeronimo Gomez MD at 15:04 EST , Physical Exam Narrative Patient AOx3. Neurovascular status unchanged from previous evaluation. Full-thickness wound noted to the plantar midfoot probes down to level of midfoot bones appear stable at this time with no gross signs of infection. Full-thickness wounds to the plantar left forefoot first wound is plantar second metatarsal phalangeal joint is a deep wound extends down the level of the second metatarsal demonstrates a granular base with no acute signs of infection. Second wound is plantar the fourth metatarsal phalangeal joint is demonstrated significant abscess that was decompressed today there is no residual purulent drainage or gross signs of infection. RLE edematous more so than the right. Assessment & Plan Assessment/Plan (1) Non-pressure chronic ulcer of other part of right foot with fat layer exposed: PLAN: Exam performed. Patient had abscess with osteomyelitis in left foot (acute) which was decompressed intraoperatively 07/22/22. Intra operative bone and swab cultures positive for MRSA which correlate with +MRSA blood cultures Duplex positive for DVT RLE - receiving heparin drip Vital signs stable at current. O2 sat 90 - room air. Some residual leukocytosis today at 15. Patient receiving IV vanc/zosyn. There are positive bone cultures and concern for some residual osteomyelitis, will await ID recommendations. Patient will require prolonged NWB on discharge. Recommend SNF. Will consider definitive amputation in coming weeks, but will wait until patient is more stable. He will likely require TMA on the left. Patient has historically refused reconstruction of his charcot deformity on the right and may require BKA in the future. Will continue to follow closely, follow up on Wednesday. (2) Non-pressure chronic ulcer of other part of left foot with necrosis of bone: (3) Osteomyelitis of right foot: (4) Charcot's joint of right foot: (5) Type 2 diabetes mellitus with diabetic polyneuropathy:
--- NOTE | 2022-07-24 11:58 | CASEMGMT ---
Addendum entered by Pepper Petit 07/24/22 16:49: Social Work [facility] is able to accept pt. Precert will need obtained prior to admission to [facility]. Pt updated of acceptance and agreeable to discharge plan. Plan: [facility], pending precert. GURMEET Sahni Original Note: Social Work [facility] is unable to accept pt. SW met with pt and informed of this. Pt confirms understanding for need for SNF and SW reviewed list of options with him. Pt choosing [facility] at this time. Pt states he does not care where he goes as long as it is as close to home as possible. Referral made to [facility] via [facility]. SW will await determination of acceptance. Precert will be needed prior to admission. Plan: [facility], pending acceptance and precert GURMEET Sahni
[2022-07-24 12:31] LABS: Bedside Glucose 188 mg/dL (74-106)
[2022-07-24 13:10] LABS: Bedside Glucose 285 mg/dL (74-106)
[2022-07-24 14:06] LABS: Albumin, Serum 1.6 g/dL (3.2-5.0); BUN 83 mg/dL (7-18); BUN/Creat Ratio 11.7 RATIO (10-20); Calcium,Total 7.4 mg/dL (8.5-10.1); Chloride 96 mmol/L (98-107); Creatinine, Serum 7.11 mg/dL (0.70-1.30); EST Glomerular Filtration Rate 9 mL/min (>60); Est Glom Filt Rate - Afr Amer 11 mL/min (>60); Estimated Creatinine Clearance 12.55 ml/min; Glucose 281 mg/dL (74-106); Phosphorus 4.8 mg/dL (2.5-4.9); Potassium 4.3 mmol/L (3.5-5.1); Sodium Level 132 mmol/L (136-145)
[2022-07-24 16:11] LABS: Complement C3 146 mg/dL (82-167)
--- NOTE | 2022-07-24 16:16 | PCM.OP.PRO ---
Procedure Report Date of Procedure: 07/24/22 Placement of right internal jugular vein temporary dialysis catheter Description of the procedure: After informed consent was obtained from the patient's sister due to the patient's encephalopathy, the right internal jugular vein was interrogated with ultrasound. Right intrajugular vein was demonstrated to be patent and collapsible. The skin overlying the right internal jugular vein was then cleaned with ChloraPrep. The patient was then draped in the usual fashion. Under direct ultrasound guidance, the right internal jugular vein was cannulated with 18-gauge needle. A 0.035 inch wire was then inserted through the needle which was then removed. The venotomy site was dilated using tissue dilator. A 16 cm, 12 [place] temporary dialysis catheter was then inserted over the guidewire. The guidewire was then removed. Good blood flow was demonstrated from each port of the catheter. The catheter was flushed with saline and locked with 1:1000 heparin in both ports. The patient tolerated the procedure well. Impression: Successful placement of right internal jugular vein temporary dialysis catheter.
[2022-07-24 16:39] LABS: Partial Thromboplast Time 84.9 Seconds (24.1-36.2)
[2022-07-24] MEDS: HEPARIN/D5w 25,000 UNITS 25,000 UNITS/250 ML IV.SOLN. 25 UNITS CONT INF (17:04)
[2022-07-24] MEDS: Heparin 10,000 UNITS/10 ML Vial IV (17:08)
--- NOTE | 2022-07-24 17:12 | RAD_ITS ---
INDICATION: RIJ dialysis cath placement EXAMINATION/TECHNIQUE: X-RAY - XR Chest 1 View COMPARISON: July 20, 2022 FINDINGS: LINES/DEVICES: Right-sided jugular line noted with tip 3 vena cava. LUNGS: There is discoid atelectasis seen in the right lower lobe. Pleural effusion.. No pneumothorax. MEDIASTINUM AND CARDIOVASCULAR STRUCTURES: Cardiac silhouette not enlarged. Central airways and mediastinal contour are unremarkable. BONES AND SOFT TISSUES: Unremarkable. Right lower lobe atelectasis is new finding since prior study RAD/CXR for Line Placement IMPRESSION: Discoid atelectasis in the right lower lobe. Electronically Signed: Jesus Figueroa MD at 17:23 EST Reading Location ID and State: [facility] / [place] , Service support ,
[2022-07-24] MEDS: oxyCODONE 5 MG Tablet PO (17:28)
[2022-07-24 19:26] LABS: Bedside Glucose 287 mg/dL (74-106)
--- NOTE | 2022-07-24 20:30 | NURSING ---
Spoke with pt's brother Ed. Update given on pt, informed Ed that pt was still being uncooperative and was in restraints for trying to pull at things. Ed was understanding and agreeable to current plan of care. Ed also expressed interest in speaking with care management about POA paperwork for the pt. Will pass this information along to the next shift.
[2022-07-24] MEDS: Morphine 2 MG/ML Syringe IV (21:09)
[2022-07-24] MEDS: guaiFENesin 10 ML UDC (200MG/10ML) 20 ML PO (21:10)
[2022-07-24] MEDS: Acetaminophen 325 MG Tablet 650 MG PO (21:10)
[2022-07-24] MEDS: MELATONIN 3 MG TABLET PO (21:10)
[2022-07-24] MEDS: 0.9% Saline Lock 10 ML Syringe IV (21:10)
[2022-07-24 23:33] LABS: Partial Thromboplast Time 42.8 Seconds (24.1-36.2)
--- NOTE | 2022-07-24 23:55 | NURSING ---
Pt is constantly slipping his hands out of his restraints and pulling his nasal cannula and telemetry leads off, he is also peeling back his dialysis catheter dressing. Several attempts to re-orient pt have been unsuccessful. Dr. Moy notified. One-time dose of seroquel ordered.
[2022-07-25] VITALS (58 sets, daily range): BP systolic 62–181; BP diastolic 26–92; PULSE 65–89; RESP 12–34; TEMP 35.5–37.1; O2SAT 89–100
[2022-07-25] MEDS: Heparin Injection (Vial) 5,000 UNIT/ML VIAL IV ×2 (00:14→06:34)
[2022-07-25] MEDS: QUEtiapine 25 MG Tablet PO (00:16)
[2022-07-25] MEDS: HEPARIN/D5w 25,000 UNITS 25,000 UNITS/250 ML IV.SOLN. 26 UNITS CONT INF (03:34)
[2022-07-25 05:16] LABS: Bedside Glucose 263 mg/dL (74-106)
[2022-07-25 05:56] LABS: Partial Thromboplast Time 52.3 Seconds (24.1-36.2)
--- NOTE | 2022-07-25 06:04 | PCM.PN.INT ---
Assessment & Plan Assessment/Plan (1) Sepsis: PLAN: Plan RECOMMENDATIONS: 1. Antimicrobials per infectious diseases. 2. Continue local wound care. 3. Dialysis support per nephrology recommendations. 4. Avoid sedating medications, including morphine. 5. Obtain arterial blood gas. 6. The patient should be made n.p.o. for now, pending improvement in mentation. 7. Wean supplemental oxygen to maintain saturations at or above 90%. IMPRESSIONS: 1. Sepsis The patient presented to the hospital with sepsis due to osteomyelitis with secondary MRSA bacteremia and acute sepsis related organ dysfunction as evidenced by lactic acidemia. The patient did receive supplemental IV fluid hydration. The patient remains on appropriate antimicrobials. The patient did ultimately undergo surgical debridement under the discretion of podiatry on July 22. Echocardiogram did not reveal any evidence of valvular vegetations. I do suspect that the findings noted on his CT chest likely represent hematogenous spread of his underlying infection. Regardless, I would recommend a follow-up chest CT in 6 to 8 weeks to document resolution. No additional intervention is required at this particular time. 2. Acute kidney injury Most likely prerenal in etiology in the setting of #1, with gradual evolution to ATN. Nephrology is following to assist with medical management. Renal ultrasound was unremarkable. Tentative plans for dialysis today. 3. Encephalopathy Most likely metabolic in etiology and related to underlying renal dysfunction. Plan to obtain arterial blood gas this morning to ensure a component of hypercapnia is not contributing. I would strongly advise against the use of morphine in a patient with underlying renal dysfunction. 4. Chronic tobacco dependency without diagnosis of COPD Although the patient has a longstanding tobacco abuse history, he denied ever having been diagnosed with COPD. It is reasonable to continue as needed bronchodilator therapy. Recommend weaning supplemental oxygen as tolerated for saturations greater than 90%. Nicotine replacement therapy can be offered to the patient while admitted to the hospital. 5. History of osteomyelitis with Charcot arthropathy/hypertension/hyperlipidemia/morbid obesity/diabetes mellitus Complicates care, management, recovery and prognosis. Continue home medications as indicated. This note was generated with [employer]com[employer] software. It may contain incorrect words, spelling, and punctuation that were not noted in checking the note before signing. Subjective Subjective The patient was seen and examined at the bedside this morning. Events from the last 24 hours have been reviewed. The patient is currently afebrile, hemodynamically stable and maintaining appropriate oxygen saturations on 4 L/min via nasal cannula. In light of further decline in his renal function, the patient underwent temporary HD line placement. There were tentative plans for the patient to receive dialysis yesterday. However, there was apparently no dialysis nurse available. Therefore, the patient is still awaiting his first session of dialysis. Chemistry profile from this morning demonstrated a creatinine of 8.58 and BUN of 92. The patient became altered and agitated overnight and was medically managed with a one-time dose of Seroquel. He also appears to have received 2 mg of IV morphine last evening as well. The patient remains quite lethargic this morning. Objective Data Objective Data The patient's most recent lab work, culture data and imaging studies have all been personally reviewed. MRI of the left foot demonstrated evidence of second and third metatarsal osteomyelitis. No valvular vegetations were noted on echocardiogram. Blood culture dated July 20 was positive for MRSA. Wound culture dated July 21 was positive for Proteus mirabilis. Vital Signs: Vital Signs Temp Pulse Resp BP Pulse Ox O2 Del Method O2 Flow Rate 96.7 F L 70 27 H 119/53 L 97 Nasal Cannula 4 07/25/22 04:00 07/25/22 04:00 07/25/22 04:00 07/25/22 04:00 07/25/22 04:00 07/25/22 04:00 07/25/22 04:00 Oxygen Flow Rate (L/min) 4 Oxygen Delivery Method Nasal Cannula Weight: 393 lb 1.347 oz Body Mass Index (BMI) 55.0 Intake & Output: Intake and Output for Last 24 Hours 07/23/22 07/24/22 07/25/22 23:59 23:59 23:59 Intake Total 100 / 180 1205.40 / 1378.73 300.00 / 300.00 Output Total 210 / 210 0 / 0 Balance 100 / 180 995.40 / 1168.73 300.00 / 300.00 Lab / Micro Data Attestation: I reviewed the patient's lab results. Result Diagrams: 07/24/22 01:30 07/25/22 05:35 Labs: Laboratory Results - last 24 hr 07/23/22 10:50: Complement C3 146, Complement C4 11 L 07/24/22 01:30: Total Creatine Kinase 27 L 07/24/22 08:25: APTT 36.6 H 07/24/22 09:20: POC Glucose 188 H 07/24/22 12:44: POC Glucose 285 H 07/24/22 13:30: Sodium 132 L, Potassium 4.3, Chloride 96 L, Carbon Dioxide 24.0, BUN 83 H, Creatinine 7.11 H, Estim Creat Clear Calc 12.55, Est GFR (MDRD) Af Amer 11 L, Est GFR (MDRD) Non-Af 9 L, BUN/Creatinine Ratio 11.7, Glucose 281 H, Calcium 7.4 L, Phosphorus 4.8, Albumin 1.6 L 07/24/22 16:10: APTT 84.9 H 07/24/22 17:01: POC Glucose 287 H 07/24/22 21:07: POC Glucose 263 H 07/24/22 23:10: APTT 42.8 H 07/25/22 05:35: APTT 52.3 H Micro: Microbiology 07/22/22 16:32 Wound Abcess - Left Foot Gram Stain - Final 07/22/22 16:32 Wound Abcess - Left Foot Wound Culture - Preliminary Staphylococcus aureus 07/22/22 16:39 Bone - Right Foot Gram Stain - Final 07/22/22 16:39 Bone - Right Foot Wound Culture - Final No growth aerobically. 07/22/22 16:37 Wound Abcess - Right Foot Gram Stain - Final 07/22/22 16:37 Wound Abcess - Right Foot Wound Culture - Final Meth. resistant Staph. aureus 07/22/22 16:35 Bone - Left Foot Gram Stain - Final 07/22/22 16:35 Bone - Left Foot Wound Culture - Final Meth. resistant Staph. aureus 07/21/22 11:00 Wound - Left Foot Gram Stain - Final 07/21/22 11:00 Wound - Left Foot Wound Culture - Final Proteus mirabilis Kocuria kristinae 07/21/22 09:30 Bone - Left Foot Gram Stain - Final 07/21/22 09:30 Bone - Left Foot Wound Culture - Final Proteus mirabilis Kocuria kristinae 07/23/22 10:50 Blood Culture (Wb) - Right Hand Blood Culture - Preliminary 07/22/22 09:50 Blood Culture (Wb) - Right Hand Blood Culture - Final Staphylococcus aureus 07/20/22 14:55 Blood Culture (Wb) - Anticubital Right Bacteria Detection (PCR) - Final Meth. resistant Staph. aureus 07/20/22 14:55 Blood Culture (Wb) - Anticubital Right Blood Culture - Final Meth. resistant Staph. aureus 07/20/22 14:45 Blood Culture (Wb) - Left Hand Blood Culture - Final Staphylococcus aureus 07/20/22 18:10 Urine, Catheterized Urine Culture - Final Citrobacter freundii 07/20/22 19:47 Mucosa - Nasopharyngeal Respiratory Panel (PCR) - Final 07/20/22 18:10 Urine, Random Legionella Antigen - Final 07/20/22 18:10 Urine, Random Streptococcus pneumoniae Antigen (M - Final 07/20/22 13:55 Nasal Secretion SARS-CoV-2 & FLU Antigen (Rapid) - Final Radiography Diagnostic Testing: Radiology Impression Venous Doppler Study 07/23/22 12:22 Interpretation Summary Subacute deep venous thrombosis identified in the right popliteal, tibio-peroneal trunk, and gastrocnemius veins Left lower extremity negative for deep venous thrombosis Ordering Physician: Eagle Babin Referring Physician: Gavin Raymundo Performed By: Dieter Aquino RVT Chest X-Ray 07/24/22 17:12 IMPRESSION: Discoid atelectasis in the right lower lobe. Electronically Signed: Jesus Figueroa MD at 17:23 EST , Physical Exam Const General Appearance: lethargic Orientation / Consciousness: confused Nutritional Appearance: morbidly obese HEENT normocephalic, head/scalp atraumatic and moist oral mucous membranes Eyes PERRL, EOMs intact bilaterally and conjunctivae normal Neck supple General: trachea midline Chest inspection of chest normal Resp Auscultation: diminished lung sounds; Negative for rales, rhonchi or wheezes Cardio regular rate and regular rhythm GI normal to inspection, nondistended, normoactive bowel sounds Extremity Extremity Narrative: Wrapped lower extremities. General Extremity: Negative for clubbing Skin General Skin Exam: venous stasis and dermatitis Neuro Neuro Narrative: The patient arouses to verbal stimulation but is far more lethargic than yesterday. Psych Mood & Affect: flat affect Charges/Coding Visit Charges Inpatient E&M: 04149 Subs Hosp L3
[2022-07-25 06:16] LABS: Albumin, Serum 1.6 g/dL (3.2-5.0); BUN 92 mg/dL (7-18); BUN/Creat Ratio 10.7 RATIO (10-20); CPK Total, Creatine Kinase 21 U/L (39-308); Calcium,Total 7.5 mg/dL (8.5-10.1); Chloride 98 mmol/L (98-107); Creatinine, Serum 8.58 mg/dL (0.70-1.30); EST Glomerular Filtration Rate 7 mL/min (>60); Est Glom Filt Rate - Afr Amer 8 mL/min (>60); Glucose 211 mg/dL (74-106); Phosphorus 7.1 mg/dL (2.5-4.9); Potassium 4.6 mmol/L (3.5-5.1); Sodium Level 134 mmol/L (136-145)
[2022-07-25 07:06] LABS: Allen Test Positive; Base Excess -3 mmol/L (-2 to +2); Bicarbonate 24.3 mmol/L (22-26); Blood Gas Specimen Type ART; O2 Delivery Device Cannula; PO2 182 mmHG (75-100); SO2 99 % (95-99); Total Carbon Dioxide 26 mmol/L; pCO2 53.5 mmHg (35-45); pH 7.27 (7.35-7.45)
[2022-07-25] MEDS: 0.9% Normal Saline 1,000 ML 999 ML IV (07:30)
--- NOTE | 2022-07-25 10:30 | DIALYSIS ---
first hemodialysis tx completed x 2 hrs. Access via right neck temporary HD cath. no fluid removed. pt seema well. See HD flowsheet on chart.
[2022-07-25 10:42] LABS: Hepatitis B Surface Antigen Non-Reactive (Nonreactive)
[2022-07-25] MEDS: Menthol/Lanolin/Calamine/Znox 113 GM Tube 1 APPLIC TOPICAL ×4 (11:35→21:45)
[2022-07-25] MEDS: 0.9% Saline Lock 10 ML Syringe IV ×2 (13:17→21:48)
[2022-07-25] MEDS: HEPARIN/D5w 25,000 UNITS 25,000 UNITS/250 ML IV.SOLN. 27 UNITS CONT INF (13:17)
--- NOTE | 2022-07-25 13:57 | PN.HOSP_ITS ---
Subjective Subjective Follow-up for ZACARIAS, sepsis and osteomyelitis. Patient had right-sided IJ dialysis catheter. For sedation dialysis started in the morning. As per dialysis nurse, no plan for fluid removal. Patient hypotensive on Levophed drip. Objective Data Objective Data Vital Signs: Vital Signs Temp Pulse Resp BP Pulse Ox O2 Del Method O2 Flow Rate 96.8 F L 71 24 H 118/49 L 97 Nasal Cannula 2 07/25/22 12:00 07/25/22 13:00 07/25/22 13:00 07/25/22 13:00 07/25/22 13:00 07/25/22 13:00 07/25/22 13:00 FiO2 40 07/25/22 11:00 Oxygen Flow Rate (L/min) 2 Oxygen Delivery Method Nasal Cannula Weight: 399 lb 0.587 oz Body Mass Index (BMI) 55.0 Intake & Output: Intake and Output for Last 24 Hours 07/23/22 07/24/22 07/25/22 23:59 23:59 23:59 Intake Total 100 / 180 1205.40 / 1378.73 1606.09 / 1606.09 Output Total 210 / 210 10 / 10 Balance 100 / 180 995.40 / 1168.73 1596.09 / 1596.09 Lab / Micro Data Result Diagrams: 07/24/22 01:30 07/25/22 05:35 Labs: Laboratory Results - last 24 hr 07/23/22 10:50: Complement C3 146, Complement C4 11 L 07/24/22 13:30: Sodium 132 L, Potassium 4.3, Chloride 96 L, Carbon Dioxide 24.0, BUN 83 H, Creatinine 7.11 H, Estim Creat Clear Calc 12.55, Est GFR (MDRD) Af Amer 11 L, Est GFR (MDRD) Non-Af 9 L, BUN/Creatinine Ratio 11.7, Glucose 281 H, Calcium 7.4 L, Phosphorus 4.8, Albumin 1.6 L 07/24/22 16:10: APTT 84.9 H 07/24/22 17:01: POC Glucose 287 H 07/24/22 21:07: POC Glucose 263 H 07/24/22 23:10: APTT 42.8 H 07/25/22 05:35: Sodium 134 L, Potassium 4.6, Chloride 98, Carbon Dioxide 25.0, BUN 92 H, Creatinine 8.58 H*, Estim Creat Clear Calc 10.40, Est GFR (MDRD) Af Amer 8 L, Est GFR (MDRD) Non-Af 7 L, BUN/Creatinine Ratio 10.7, Glucose 211 H, Calcium 7.5 L, Phosphorus 7.1 H, Total Creatine Kinase 21 L, Albumin 1.6 L 07/25/22 05:35: APTT 52.3 H 07/25/22 09:40: Hep Bs Antigen Non-Reactive Micro: Microbiology 07/24/22 10:40 Blood Culture (Wb) - Anticubital Right Blood Culture - Preliminary 07/22/22 16:32 Wound Abcess - Left Foot Gram Stain - Final 07/22/22 16:32 Wound Abcess - Left Foot Wound Culture - Final Meth. resistant Staph. aureus 07/23/22 10:50 Blood Culture (Wb) - Right Hand Blood Culture - Preliminary Staphylococcus aureus 07/22/22 16:39 Bone - Right Foot Gram Stain - Final 07/22/22 16:39 Bone - Right Foot Wound Culture - Final No growth aerobically. 07/22/22 16:37 Wound Abcess - Right Foot Gram Stain - Final 07/22/22 16:37 Wound Abcess - Right Foot Wound Culture - Final Meth. resistant Staph. aureus 07/22/22 16:35 Bone - Left Foot Gram Stain - Final 07/22/22 16:35 Bone - Left Foot Wound Culture - Final Meth. resistant Staph. aureus 07/21/22 11:00 Wound - Left Foot Gram Stain - Final 07/21/22 11:00 Wound - Left Foot Wound Culture - Final Proteus mirabilis Kocuria kristinae 07/21/22 09:30 Bone - Left Foot Gram Stain - Final 07/21/22 09:30 Bone - Left Foot Wound Culture - Final Proteus mirabilis Kocuria kristinae 07/22/22 09:50 Blood Culture (Wb) - Right Hand Blood Culture - Final Staphylococcus aureus 07/20/22 14:55 Blood Culture (Wb) - Anticubital Right Bacteria Detection (PCR) - Final Meth. resistant Staph. aureus 07/20/22 14:55 Blood Culture (Wb) - Anticubital Right Blood Culture - Final Meth. resistant Staph. aureus 07/20/22 14:45 Blood Culture (Wb) - Left Hand Blood Culture - Final Staphylococcus aureus 07/20/22 18:10 Urine, Catheterized Urine Culture - Final Citrobacter freundii 07/20/22 19:47 Mucosa - Nasopharyngeal Respiratory Panel (PCR) - Final 07/20/22 18:10 Urine, Random Legionella Antigen - Final 07/20/22 18:10 Urine, Random Streptococcus pneumoniae Antigen (M - Final 07/20/22 13:55 Nasal Secretion SARS-CoV-2 & FLU Antigen (Rapid) - Final ABG Data ABG results: ABG 07/25/22 07:01 Specimen Type ART pH 7.27 L Bicarbonate Actual 24.3 Total CO2 26 Base Excess -3 L O2 Saturation 99 ABG pCO2 53.5 H ABG pO2 182 H Jv Test Positive O2 Delivery Device Cannula Liter Flow 4.0 Radiography Diagnostic Testing: Radiology Impression Venous Doppler Study 07/23/22 12:22 Interpretation Summary Subacute deep venous thrombosis identified in the right popliteal, tibio- peroneal trunk, and gastrocnemius veins Left lower extremity negative for deep venous thrombosis Ordering Physician: Eagle Babin Referring Physician: Gavin Raymundo Performed By: Dieter Aquino Janett Chest X-Ray 07/24/22 17:12 IMPRESSION: Discoid atelectasis in the right lower lobe. Electronically Signed: Jesus Figueroa MD at 17:23 EST , Physical Exam Narrative Confused and disoriented. Patient asking for discharge. Kidney function is worsening. Physical exam General: Confused, disoriented, irritable BMI 54.5 kg/m?. Thrashing about his arms. HEENT: Atraumatic, PERRLA, EOMI, Normocephalic Oral: Deep oropharyngeal structures could not be seen. No Gingival or Mucosal Lesions/ Ulcerations Neck: Supple, No JVD, Negative Carotid Bruits Chest wall/lungs: On BiPAP Sheri air entry diminished in bilateral lung bases. Mild bilateral expiratory rhonchi and wheezing Cardiovascular: Regular rate, Regular Rhythm, Normal S1, Normal S2, No murmurs Abdomen: Bowel Sounds Present, Soft, Non Tender, Non-Distended : No renal angle tenderness. No suprapubic tenderness. Extremities: Bilateral below-knee pitting and nonpitting edema. Capillary Refill Less than 3 Seconds Skin:Ulcer over both feet. Status post excisional debridement and Jens wrap bandage. Musculoskeletal: Right, forefoot metatarsal amputation. ROM restricted at hip knee and ankle level. Muscle strength 4/5. Neurological: Cranial nerves II-XII grossly intact, DTR 2+/4, bilateral lower legs neuropathy Psych/Mental Status: Flat affect. Assessment & Plan Assessment/Plan (1) Hypoxia: PLAN: Plan The patient is a 52 y/o male was admitted in ICU through ED for 2 days of increasing dyspnea, worse with any exertion attempt. #1. Sepsis with secondary MRSA bacteremia most likely due to osteomyelitis: Patient is being admitted in ICU. The patient presented with sepsis, most likely due to osteomyelitis with acute sepsis-related organ dysfunctevidenced by lactic acidosis. Patient had IV fluid rehydration. Patient maintained blood pressure. Podiatry and ID consulted. CT chest reviewed and shows multiple small cavitary lesions throughout lungs suggestive of septic emboli. The patient is being comanaged with data technician and ID. Curriculum Coordinator recommended repeat chest CT in 6 to 8 weeks or follow-up for reevaluation. 2D echo shows EF 55. Grossly normal LV size, wall motion and systolic function although study was technically difficult. 07/22: Multiple blood culture shows MRSA. Urine culture Citrobacter freundii [id number] colonies resistant to Levaquin and Cipro. Prelim wound culture growing gram-negative carlos, gram-positive rods and rare GPC. Continue broad- spectrum antibiotic. Lower extremity arterial study shows right and left normal KRIS with normal Doppler waveform at rest. 2D echo EF 55% with grossly normal LV size wall motion and systolic function. MRI right foot shows multiple midfoot neuropathic osteoarthropathy along with bone marrow signal alteration concerning for osteomyelitis. MRI left foot second and third metatarsal osteomyelitis large collection 2.3 x 1.3 cm plantar aspect. Patient is going for OR today. 07/23: Patient had excisional debridement of left foot up to the level of muscle and right foot excisional debridement to the level of bone. Wound culture is growing preliminary Proteus mirabilis. Prelim blood culture shows gram-positive cocci in clusters from 07/22 and earlier blood culture is growing MRSA 07/24: Continue broad-spectrum antibiotic. Antibiotic vancomycin changed to daptomycin. Continue Zosyn 07/25: Patient on norepinephrine drip. On IV daptomycin. Patient did not had fever. Hypotension seems mainly due to hemodynamic fluid shift 2. Acute combined respiratory failure: Patient was put on on BiPAP. ABG was done, 7.27/53.5/182 on 4 L of oxygen through nasal cannula. Moderate respiratory distress. Laboratory Results 07/23/22 10:50: Complement C3 146, Complement C4 11 L 07/24/22 13:30: Sodium 132 L, Potassium 4.3, Chloride 96 L, Carbon Dioxide 24.0, BUN 83 H, Creatinine 7.11 H, Estim Creat Clear Calc 12.55, Est GFR (MDRD) Af Am er 11 L, Est GFR (MDRD) Non-Af 9 L, BUN/Creatinine Ratio 11.7, Glucose 281 H, Calcium 7.4 L, Phosphorus 4.8, Albumin 1.6 L 07/24/22 16:10: APTT 84.9 H 07/24/22 17:01: POC Glucose 287 H 07/24/22 21:07: POC Glucose 263 H 07/24/22 23:10: APTT 42.8 H 07/25/22 05:35: Sodium 134 L, Potassium 4.6, Chloride 98, Carbon Dioxide 25.0, BUN 92 H, Creatinine 8.58 H*, Estim Creat Clear Calc 10.40, Est GFR (MDRD) Af Amer 8 L, Est GFR (MDRD) Non-Af 7 L, BUN/Creatinine Ratio 10.7, Glucose 211 H, Calcium 7.5 L, Phosphorus 7.1 H, Total Creatine Kinase 21 L, Albumin 1.6 L 07/25/22 05:35: APTT 52.3 H 07/25/22 07:01: Specimen Type ART, pH 7.27 L, Bicarbonate Actual 24.3, Total CO2 26, Base Excess -3 L, O2 Saturation 99, ABG pCO2 53.5 H, ABG pO2 182 H, Jv Test Positive, O2 Delivery Device Cannula, Liter Flow 4.0 07/25/22 09:40: Hep Bs Antigen Non-Reactive 07/25/22 13:20: APTT 63.4 H 2. Acute kidney injury most likely prerenal azotemia/hemodynamic fluid shift.? This may be related with sepsis.? Street Worker was consulted.? Labs for Jana and complement and ultrasound ordered.? Lisinopril started.? Patient also had drop in her platelet count from about 175,000-90,000 therefore Lovenox dose decreased to 30 mg SQ twice daily after discussion with the traffic reporter in [place] with decreased creatinine clearance and morbid obesity. 07/24: Further worsening of creatinine. Creatinine 7.11. Patient is well for confused and disoriented. BUN 83. Discussed with the traffic reporter. Dialysis catheter was inserted. Plan for dialysis probably tomorrow. 07/25: Patient had right IJ dialysis catheter. Started on dialysis today. No plan for fluid removal as patient is already on Levophed drip. BUN/creatinine went up very high in the last few days, 93/8.58. Patient is oliguric, 210 mL in last 24 hours. 10 mL since midnight, progressing to anuria. History of chronic smoking/tobacco, nicotine dependency without diagnosis of COPD: Patient has prolonged history of smoking and still continues. Does not have documented diagnosis of COPD. Patient does not use oxygen at home. Bronchodilator as needed. Curriculum Coordinator recommended discontinuation of his scheduled vaginal cytosol. On nicotine patch. #3. Hypovolemic hypotonic hyponatremia, mild: Admission sodium 127, prior baselines appear in the normal range primarily, chloride also decreased to 89, repeat sodium shows improvement 132. #4. Hypokalemia: Admission K+ 3.3, repeat potassium 3.6. Serum magnesium 1.7. 07/22: K3.5. Magnesium 2.0. 07/23: K4.1. 07/25: Electrolytes are in acceptable limit. #5. Hx Charcot arthropathy with Hx osteomyelitis, Hx nonpressure chronic ulcer right midfoot: Patient had right foot transmetatarsal amputation. Patient follows Dr. Acevedo as an outpatient wound center with last visit on 07/16/2022 and had office local debridement and was advised nonweightbearing with use of wheelchair and orthotics. Sports Physician and wound care nurses consulted. 07/22: Findings of MRI described above and shows neuroarthropathy and Charcot's joint along with osteomyelitis. 6 hypertension: Continue home regimen including lisinopril with further adjustments as needed pending blood pressure trend, PRN hydralazine. 7. Hyperlipidemia: Not on statin therapy per current list, encourage continued outpatient follow-up. 8. Diabetes mellitus type II: Hold oral home regimen, ADA diet, accu checks w/ ISS. 9.. Morbid Obesity: Weight loss and lifestyle changes encouraged. 10. Bilateral lower extremity chronic venous stasis disease: We will maintain on low-dose aspirin, encourage continued hypertensive, hyperlipidemic and DM control. #11. GERD: On Protonix #12 KRYSTAL: CPAP nightly. 13 chronic DVT: Venous duplex reported right popliteal, tibioperoneal trunk consistent with chronic DVT. Compressible right GSV. No apparent change from previous exam of July 2020. Patient on IV heparin drip. CODE status: Patient is does not have healthcare power of sports attorney nor living will in place. Discussed CODE status at length including difference between FULL code, DNR-CCA and DNR-CC status. Following discussions about the differences in these status, requested Full Code status. Total time of the visit including total time spent in counseling or coordination of care, (more than 50% of the total time, spent in obtaining medical information from nurses and other ancillary care providers,explaining to the patient about labs, imaging, diagnosis and management of active complex medical conditions), discussion with consultants, complexity of medical problems,, review of labs and imaging is 55 minutes. Charges/Coding Visit Charges Inpatient E&M: 09581 Subs Hosp L3
[2022-07-25 13:59] LABS: Partial Thromboplast Time 63.4 Seconds (24.1-36.2)
[2022-07-25] MEDS: Insulin Lispro 100 UNIT/ML INSULN.PEN SC ×2 (16:36→21:48)
[2022-07-25 17:15] LABS: Bedside Glucose 194 mg/dL (74-106)
[2022-07-25] MEDS: Haloperidol Lactate 5 MG/ML Vial IV (18:13)
[2022-07-25 20:53] LABS: Partial Thromboplast Time 163.6 Seconds (24.1-36.2)
[2022-07-25 22:10] LABS: Bedside Glucose 249 mg/dL (74-106)
[2022-07-26] VITALS (45 sets, daily range): BP systolic 89–160; BP diastolic 29–85; PULSE 60–100; RESP 12–100; TEMP 36.5–38.3; O2SAT 92–100
[2022-07-26] MEDS: HEPARIN/D5w 25,000 UNITS 25,000 UNITS/250 ML IV.SOLN. 24 UNITS CONT INF (00:55)
[2022-07-26] MEDS: Haloperidol Lactate 5 MG/ML Vial 1 MG IM ×2 (01:55→06:03)
--- NOTE | 2022-07-26 06:17 | PN.CC_ITS ---
Assessment & Plan Assessment/Plan (1) Sepsis: PLAN: Plan RECOMMENDATIONS: 1. Antimicrobials per infectious diseases. 2. Continue local wound care. 3. Continue Levophed to maintain a mean arterial pressure at or above 65 mmHg. 4. Dialysis support per nephrology recommendations. 5. The patient should be n.p.o., pending improvement in mentation. 6. Wean supplemental oxygen to maintain saturations at or above 90%. IMPRESSIONS: 1. Septic shock The patient presented to the hospital with sepsis due to osteomyelitis with secondary MRSA bacteremia and acute sepsis related organ dysfunction as evidenced by lactic acidemia and hemodynamic instability requiring vasopressor support. The patient remains on antimicrobials under the discretion of infectious diseases, but continues to have persistently positive blood cultures. The patient did ultimately undergo surgical debridement under the discretion of podiatry on July 22. Echocardiogram did not reveal any evidence of valvular vegetations. I do suspect that the findings noted on his CT chest likely represent hematogenous spread of his underlying infection. Regardless, I would recommend a follow-up chest CT in 6 to 8 weeks to document resolution. For now, the patient will be maintained on Levophed to maintain mean arterial pressure at or above 65 mmHg. 2. Acute kidney injury Most likely prerenal in etiology in the setting of #1, with gradual evolution to ATN. Nephrology is following to assist with medical management. Renal ultraso und was unremarkable. Continue dialysis support per nephrology recommendations. 3. Encephalopathy Most likely metabolic in etiology and related to underlying infection and renal dysfunction. The patient does have a tendency to retain CO2. Therefore, BiPAP therapy will be appropriate with naps and sleep. I would strongly advise against the use of morphine in a patient with underlying renal dysfunction. 4. Chronic tobacco dependency without diagnosis of COPD Although the patient has a longstanding tobacco abuse history, he denied ever blanchard ving been diagnosed with COPD. It is reasonable to continue as needed bronchodilator therapy. Recommend weaning supplemental oxygen as tolerated for saturations greater than 90%. Nicotine replacement therapy can be offered to the patient while admitted to the hospital. 5. History of osteomyelitis with Charcot arthropathy/hypertension/hyperlipidemia/morbid obesity/diabetes mellitus Complicates care, management, recovery and prognosis. Continue sliding scale insulin coverage. TIME: 32 minutes of critical care time, independent of procedures, was spent addressing the patient's septic shock, acute kidney injury, encephalopathy, review of all data and collaboration with the care team. Subjective Subjective The patient was seen and examined at the bedside this morning. Events from the last 24 hours have been reviewed. The patient is currently afebrile and jessica ntaining appropriate oxygen saturations on room air. The patient ultimately had to be placed on vasopressor support yesterday to maintain hemodynamic stability. He is currently documented to be overall net +7.3 L for the hospitalization. The patient tolerated dialysis yesterday without any net volume fluid removal. White count remains elevated at 17,000. The patient remains confused and impul sive, nearly pulling out his temporary hemodialysis catheter this morning. Objective Data Objective Data The patient's most recent lab work, culture data and imaging studies have all been personally reviewed. MRI of the left foot demonstrated evidence of second and third metatarsal osteomyelitis. No valvular vegetations were noted on echocardiogram. Blood culture dated July 20 was positive for MRSA. Wound culture dated July 21 was positive for Proteus mirabilis. Repeat blood cultures dated July 23 and remain persistently positive for staph aureus. Vital Signs: Vital Signs Temp Pulse Resp BP Pulse Ox O2 Del Method O2 Flow Rate 98.8 F 85 22 H 90/52 L 94 Room Air 2 07/26/22 02:00 07/26/22 05:00 07/26/22 05:00 07/26/22 05:00 07/26/22 05:00 07/26/22 05:00 07/25/22 13:00 FiO2 40 07/26/22 02:00 Oxygen Flow Rate (L/min) 2 Oxygen Delivery Method Room Air Weight: 397 lb 4.368 oz Body Mass Index (BMI) 55.0 Intake & Output: Intake and Output for Last 24 Hours 07/24/22 07/25/22 07/26/22 23:59 23:59 23:59 Intake Total 1205.40 / 1378.73 2153.19 / 2155.54 167.30 / 167.30 Output Total 210 / 210 Balance 995.40 / 1168.73 2138.19 / 2140.54 157.30 / 157.30 Lab / Micro Data Attestation: I reviewed the patient's lab results. Result Diagrams: 07/26/22 06:00 07/26/22 06:00 Labs: Laboratory Results - last 24 hr 07/25/22 09:40: Hep Bs Antigen Non-Reactive 07/25/22 13:20: APTT 63.4 H 07/25/22 15:54: POC Glucose 194 H 07/25/22 20:10: APTT 163.6 H* 07/25/22 21:48: POC Glucose 249 H Micro: Microbiology 07/21/22 09:30 Bone - Left Foot Gram Stain - Final 07/21/22 09:30 Bone - Left Foot Wound Culture - Final Proteus mirabilis Kocuria kristinae 07/21/22 09:30 Bone - Left Foot Anaerobic Culture - Preliminary Gram negative carlos Anaerobic cocci 07/21/22 11:00 Wound - Left Foot Gram Stain - Final 07/21/22 11:00 Wound - Left Foot Wound Culture - Final Proteus mirabilis Kocuria kristinae 07/21/22 11:00 Wound - Left Foot Anaerobic Culture - Preliminary Gram negative carlos 07/22/22 16:32 Wound Abcess - Left Foot Gram Stain - Final 07/22/22 16:32 Wound Abcess - Left Foot Wound Culture - Final Meth. resistant Staph. aureus 07/22/22 16:32 Wound Abcess - Left Foot Anaerobic Culture - Preliminary 07/22/22 16:37 Wound Abcess - Right Foot Gram Stain - Final 07/22/22 16:37 Wound Abcess - Right Foot Wound Culture - Final Meth. resistant Staph. aureus 07/22/22 16:37 Wound Abcess - Right Foot Anaerobic Culture - Preliminary 07/22/22 16:35 Bone - Left Foot Gram Stain - Final 07/22/22 16:35 Bone - Left Foot Wound Culture - Final Meth. resistant Staph. aureus 07/22/22 16:35 Bone - Left Foot Anaerobic Culture - Preliminary 07/22/22 16:39 Bone - Right Foot Gram Stain - Final 07/22/22 16:39 Bone - Right Foot Wound Culture - Final No growth aerobically. 07/22/22 16:39 Bone - Right Foot Anaerobic Culture - Preliminary 07/24/22 10:40 Blood Culture (Wb) - Anticubital Right Blood Culture - Preliminary 07/23/22 10:50 Blood Culture (Wb) - Right Hand Blood Culture - Preliminary Staphylococcus aureus 07/22/22 09:50 Blood Culture (Wb) - Right Hand Blood Culture - Final Staphylococcus aureus 07/20/22 14:55 Blood Culture (Wb) - Anticubital Right Bacteria Detection (PCR) - Final Meth. resistant Staph. aureus 07/20/22 14:55 Blood Culture (Wb) - Anticubital Right Blood Culture - Final Meth. resistant Staph. aureus 07/20/22 14:45 Blood Culture (Wb) - Left Hand Blood Culture - Final Staphylococcus aureus 07/20/22 18:10 Urine, Catheterized Urine Culture - Final Citrobacter freundii 07/20/22 19:47 Mucosa - Nasopharyngeal Respiratory Panel (PCR) - Final 07/20/22 18:10 Urine, Random Legionella Antigen - Final 07/20/22 18:10 Urine, Random Streptococcus pneumoniae Antigen (M - Final 07/20/22 13:55 Nasal Secretion SARS-CoV-2 & FLU Antigen (Rapid) - Final ABG Data ABG results: ABG 07/25/22 07:01 Specimen Type ART pH 7.27 L Bicarbonate Actual 24.3 Total CO2 26 Base Excess -3 L O2 Saturation 99 ABG pCO2 53.5 H ABG pO2 182 H Jv Test Positive O2 Delivery Device Cannula Liter Flow 4.0 Radiography Diagnostic Testing: Radiology Impression Venous Doppler Study 07/23/22 12:22 Interpretation Summary Subacute deep venous thrombosis identified in the right popliteal, tibio- peroneal trunk, and gastrocnemius veins Left lower extremity negative for deep venous thrombosis Ordering Physician: Eagle Babin Referring Physician: Gavin Raymundo Performed By: Dieter Aquino RVT Chest X-Ray 07/24/22 17:12 IMPRESSION: Discoid atelectasis in the right lower lobe. Electronically Signed: Jesus Figueroa MD at 17:23 EST Reading Location ID and State: [facility] / [place] , Service support , Physical Exam Const Constitutional Narrative: The patient is impulsive. Orientation / Consciousness: confused Nutritional Appearance: morbidly obese HEENT normocephalic, head/scalp atraumatic and moist oral mucous membranes Eyes PERRL, EOMs intact bilaterally and conjunctivae normal Neck supple General: trachea midline and CVC in place Chest inspection of chest normal Resp Auscultation: diminished lung sounds; Negative for rales, rhonchi or wheezes Cardio regular rate and regular rhythm GI normal to inspection, nondistended, normoactive bowel sounds Extremity Extremity Narrative: Wrapped lower extremities. General Extremity: Negative for clubbing Skin General Skin Exam: venous stasis and dermatitis Neuro moves all extremities and no focal motor deficits Psych Activity / Motor Behavior: restless Charges/Coding Procedures Hospitalists Procedures: 07129 Critial Care 1st Hr
[2022-07-26 06:28] LABS: Hematocrit 36.1 % (40-54); Hemoglobin 11.1 g/dL (13.0-16.5); Mean Corp Hgb Conc 30.7 g/dL (32-36); Mean Corpuscular Hgb 25.9 pg (27.0-32.0); Mean Corpuscular Volume 84.3 fL (80-94); Mean Platelet Vol. 12.9 fl (6.2-12.0); POSITIVE COUNT YES; POSITIVE MORPHOLOGY YES; Platelet Count 108 K/mm3 (150-450); RBC Distribution Width CV 15.6 % (11.6-14.6); RBC Distribution Width SD 47.8 fl (35.1-43.9); Red Blood Count 4.28 M/mm3 (4.6-6.2); White Blood Count 17.6 K/mm3 (4.4-11.0)
[2022-07-26 06:31] LABS: Differential Indicated MANUAL DIFF
[2022-07-26 06:41] LABS: Partial Thromboplast Time 44.1 Seconds (24.1-36.2)
[2022-07-26 06:42] LABS: ALB/GLOB Ratio 0.3 RATIO (0.9-2.4); AST(SGOT) 25 U/L (15-37); Alanine Aminotransfer ALT/SGPT 17 U/L (16-61); Albumin, Serum 1.6 g/dL (3.2-5.0); Alkaline Phosphatase 71 U/L (45-117); Anion Gap 16 (5-15); BUN 84 mg/dL (7-18); BUN/Creat Ratio 9.6 RATIO (10-20); Calcium,Total 7.1 mg/dL (8.5-10.1); Chloride 98 mmol/L (98-107); Creatinine, Serum 8.72 mg/dL (0.70-1.30); EST Glomerular Filtration Rate 7 mL/min (>60); Est Glom Filt Rate - Afr Amer 8 mL/min (>60); Estimated Creatinine Clearance 10.23 ml/min; Globulin 4.8 g/dL (2.2-4.2); Glucose 266 mg/dL (74-106); Potassium 4.1 mmol/L (3.5-5.1); Protein, Total 6.4 g/dL (6.4-8.2); Sodium Level 135 mmol/L (136-145)
[2022-07-26] MEDS: Heparin Injection (Vial) 5,000 UNIT/ML VIAL IV (06:53)
[2022-07-26 07:11] LABS: Anisocytosis 1+; Platelet Estimate SLT DEC (ADEQ)
[2022-07-26 07:12] LABS: Red Cell Morphology NORM C+C NORMAL (NORM C&C)
[2022-07-26 07:16] LABS: Absolute Neutrophil Count 13.2 X10^3/uL (2.0-7.7)
[2022-07-26 07:17] LABS: Absolute Lymphocyte Count 2.11 X10^3/uL (0.83-4.51)
[2022-07-26 07:18] LABS: Lymphocyte 12 % (19-41); Monocyte 4 % (0-10); Myelocyte 8 % (0-0); Neutrophil-Band 3 % (0-5); Neutrophil-Segmented 72 % (47-70); Promyelocyte 1 % (0-0); Total Cells Counted 100 (MANUAL DIFF)
--- NOTE | 2022-07-26 09:19 | PN.HOSP_ITS ---
Subjective Subjective Follow-up for multiple issues including ZACARIAS, sepsis and bilateral feet ulcers/osteomyelitis. Objective Data Objective Data Vital Signs: Vital Signs Temp Pulse Resp BP Pulse Ox O2 Del Method O2 Flow Rate 97.9 F 84 28 H 140/47 H 99 Bi-pap 2 07/26/22 08:00 07/26/22 08:00 07/26/22 08:00 07/26/22 08:00 07/26/22 08:00 07/26/22 08:00 07/25/22 13:00 FiO2 40 07/26/22 08:00 Oxygen Flow Rate (L/min) 2 Oxygen Delivery Method Bi-pap Weight: 397 lb 4.368 oz Body Mass Index (BMI) 55.0 Intake & Output: Intake and Output for Last 24 Hours 07/24/22 07/25/22 07/26/22 23:59 23:59 23:59 Intake Total 1205.40 / 1378.73 2153.19 / 2155.54 365.70 / 365.70 Output Total 210 / 210 10 10 Balance 995.40 / 1168.73 2138.19 / 2140.54 355.70 / 355.70 Lab / Micro Data Result Diagrams: 07/26/22 06:00 07/26/22 06:00 Labs: Laboratory Results - last 24 hr 07/25/22 09:40: Hep Bs Antigen Non-Reactive 07/25/22 13:20: APTT 63.4 H 07/25/22 15:54: POC Glucose 194 H 07/25/22 20:10: APTT 163.6 H* 07/25/22 21:48: POC Glucose 249 H 07/26/22 04:55: APTT 44.1 H 07/26/22 06:00: WBC 17.6 H, RBC 4.28 L, Hgb 11.1 L, Hct 36.1 L, MCV 84.3, MCH 25.9 L, MCHC 30.7 L, RDW Std Deviation 47.8 H, RDW Coeff of Maria Fernanda 15.6 H, Plt Count 108 L, MPV 12.9 H, Neut % (Auto) Not Reportable, Absolute Neuts (auto) 13.2 H, Absolute Lymphs (auto) 2.11, Total Counted 100, Neutrophils % (Manual) 72 H, Band Neutrophils % 3, Lymphocytes % (Manual) 12 L, Monocytes % (Manual) 4, Myelocytes % 8 H, Promyelocytes % 1 H, Diff Path Review May foll, Platelet Estimate SLT DEC, RBC Morphology NORM C+C, Anisocytosis 1+ 07/26/22 06:00: Sodium 135 L, Potassium 4.1, Chloride 98, Carbon Dioxide 21.0, Anion Gap 16 H, BUN 84 H, Creatinine 8.72 H*, Estim Creat Clear Calc 10.23, Est GFR (MDRD) Af Amer 8 L, Est GFR (MDRD) Non-Af 7 L, BUN/Creatinine Ratio 9.6 L, Glucose 266 H, Calcium 7.1 L, Total Bilirubin 0.70, AST 25, ALT 17, Alkaline Phosphatase 71, Total Protein 6.4, Albumin 1.6 L, Globulin 4.8 H, Albumin/Globulin Ratio 0.3 L Micro: Microbiology 07/21/22 11:00 Wound - Left Foot Gram Stain - Final 07/21/22 11:00 Wound - Left Foot Wound Culture - Final Proteus mirabilis Kocuria kristinae 07/21/22 11:00 Wound - Left Foot Anaerobic Culture - Final Bacteroides thetaiotaomicron 07/21/22 09:30 Bone - Left Foot Gram Stain - Final 07/21/22 09:30 Bone - Left Foot Wound Culture - Final Proteus mirabilis Kocuria kristinae 07/21/22 09:30 Bone - Left Foot Anaerobic Culture - Final Bacteroides thetaiotaomicron Anaerobic cocci 07/23/22 10:50 Blood Culture (Wb) - Right Hand Blood Culture - Final Meth. resistant Staph. aureus 07/22/22 16:32 Wound Abcess - Left Foot Gram Stain - Final 07/22/22 16:32 Wound Abcess - Left Foot Wound Culture - Final Meth. resistant Staph. aureus 07/22/22 16:32 Wound Abcess - Left Foot Anaerobic Culture - Preliminary 07/22/22 16:37 Wound Abcess - Right Foot Gram Stain - Final 07/22/22 16:37 Wound Abcess - Right Foot Wound Culture - Final Meth. resistant Staph. aureus 07/22/22 16:37 Wound Abcess - Right Foot Anaerobic Culture - Preliminary 07/22/22 16:35 Bone - Left Foot Gram Stain - Final 07/22/22 16:35 Bone - Left Foot Wound Culture - Final Meth. resistant Staph. aureus 07/22/22 16:35 Bone - Left Foot Anaerobic Culture - Preliminary 07/22/22 16:39 Bone - Right Foot Gram Stain - Final 07/22/22 16:39 Bone - Right Foot Wound Culture - Final No growth aerobically. 07/22/22 16:39 Bone - Right Foot Anaerobic Culture - Preliminary 07/24/22 10:40 Blood Culture (Wb) - Anticubital Right Blood Culture - Preli minary 07/22/22 09:50 Blood Culture (Wb) - Right Hand Blood Culture - Final Staphylococcus aureus 07/20/22 14:55 Blood Culture (Wb) - Anticubital Right Bacteria Detection (PCR) - Final Meth. resistant Staph. aureus 07/20/22 14:55 Blood Culture (Wb) - Anticubital Right Blood Culture - Final Meth. resistant Staph. aureus 07/20/22 14:45 Blood Culture (Wb) - Left Hand Blood Culture - Final Staphylococcus aureus 07/20/22 18:10 Urine, Catheterized Urine Culture - Final Citrobacter freundii 07/20/22 19:47 Mucosa - Nasopharyngeal Respiratory Panel (PCR) - Final 07/20/22 18:10 Urine, Random Legionella Antigen - Final 07/20/22 18:10 Urine, Random Streptococcus pneumoniae Antigen (M - Final 07/20/22 13:55 Nasal Secretion SARS-CoV-2 & FLU Antigen (Rapid) - Final Physical Exam Narrative Confused and disoriented. Patient asking for discharge. Kidney function is worsening. Physical exam General: Confused, disoriented, irritable BMI 54.5 kg/m?. HEENT: Atraumatic, PERRLA, EOMI, Normocephalic Oral: On BiPAP. Neck: Supple, No JVD, Negative Carotid Bruits Chest wall/lungs: On BiPAP. Air entry diminished in bilateral lung bases. Mild bilateral expiratory rhonchi and wheezing Cardiovascular: Regular rate, Regular Rhythm, Normal S1, Normal S2, No murmurs Abdomen: Bowel Sounds sluggish, Soft, Non Tender, Non-Distended : Faulkner catheter. Anuria. no renal angle tenderness. No suprapubic tenderness. Extremities: Bilateral below-knee pitting and nonpitting edema. Capillary Refill Less than 3 Seconds Skin:Ulcer over both feet. Status post excisional debridement and Jens wrap bandage. Musculoskeletal: Right, forefoot metatarsal amputation. ROM restricted at hip knee and ankle level. Muscle strength 4/5. Neurological: Cranial nerves II-XII grossly intact, DTR 2+/4, bilateral lower legs neuropathy Psych/Mental Status: Flat affect. Assessment & Plan Assessment/Plan (1) Hypoxia: PLAN: Plan The patient is a 52 y/o male was admitted in ICU through ED for 2 days of increasing dyspnea, worse with any exertion attempt. #1. Sepsis with secondary MRSA bacteremia most likely due to osteomyelitis polymicrobial infection, MRSA, Proteus: Patient is being admitted in ICU. The patient presented with sepsis, most likely due to osteomyelitis with acute sepsis-related organ dysfunctevidenced by lactic acidosis. Patient had IV fluid rehydration. Patient maintained blood pressure. Podiatry and ID consulted. CT chest reviewed and shows multiple small cavitary lesions throughout lungs suggestive of septic emboli. The patient is being comanaged with public events facilities rental manager and ID. Metal And Plastic Heater recommended repeat chest CT in 6 to 8 weeks or follow-up for reevaluation. 2D echo shows EF 55. Grossly normal LV size, wall motion and systolic function although study was technically difficult. 07/22: Multiple blood culture shows MRSA. Urine culture Citrobacter freundii [id number] colonies resistant to Levaquin and Cipro. Prelim wound culture growing gram-negative carlos, gram-positive rods and rare GPC. Continue broad- spectrum antibiotic. Lower extremity arterial study shows right and left normal KRIS with normal Doppler waveform at rest. 2D echo EF 55% with grossly normal LV size wall motion and systolic function. MRI right foot shows multiple midfoot neuropathic osteoarthropathy along with bone marrow signal alteration concerning for osteomyelitis. MRI left foot second and third metatarsal osteomyelitis large collection 2.3 x 1.3 cm plantar aspect. Patient is going for OR today. 07/23: Patient had excisional debridement of left foot up to the level of muscle and right foot excisional debridement to the level of bone. Wound culture is growing preliminary Proteus mirabilis. Prelim blood culture shows gram-positive cocci in clusters from 07/22 and earlier blood culture is growing MRSA 07/24: Continue broad-spectrum antibiotic. Antibiotic vancomycin changed to daptomycin. Continue Zosyn 07/25: Patient on norepinephrine drip. On IV daptomycin. Patient did not had fever. Hypotension seems mainly due to hemodynamic fluid shift 07/26: Tissue culture growing Proteus mirabilis and Kochura. Blood culture growing MRSA from 07/23. Continue IV antibiotic 2. Acute combined respiratory failure: Patient was put on on BiPAP. ABG was done, 7.27/53.5/182 on 4 L of oxygen through nasal cannula. Moderate respiratory distress. 07/26: Patient remains on BiPAP Laboratory Results 07/25/22 09:40: Hep Bs Antigen Non-Reactive 07/25/22 13:20: APTT 63.4 H 07/25/22 15:54: POC Glucose 194 H 07/25/22 20:10: APTT 163.6 H* 07/25/22 21:48: POC Glucose 249 H 07/26/22 04:55: APTT 44.1 H 07/26/22 06:00: WBC 17.6 H, RBC 4.28 L, Hgb 11.1 L, Hct 36.1 L, MCV 84.3, MCH 25.9 L, MCHC 30.7 L, RDW Std Deviation 47.8 H, RDW Coeff of Maria Fernanda 15.6 H, Plt Count 108 L, MPV 12.9 H, Neut % (Auto) Not Reportable, Absolute Neuts (auto) 13.2 H, Absolute Lymphs (auto) 2.11, Total Counted 100, Neutrophils % (Manual) 72 H, Band Neutrophils % 3, Lymphocytes % (Manual) 12 L, Monocytes % (Manual) 4, Myelocytes % 8 H, Promyelocytes % 1 H, Diff Path Review November, Platelet Estimate SLT DEC, RBC Morphology NORM C+C, Anisocytosis 1+ 07/26/22 06:00: Sodium 135 L, Potassium 4.1, Chloride 98, Carbon Dioxide 21.0, Anion Gap 16 H, BUN 84 H, Creatinine 8.72 H*, Estim Creat Clear Calc 10.23, Est GFR (MDRD) Af Amer 8 L, Est GFR (MDRD) Non-Af 7 L, BUN/Creatinine Ratio 9.6 L, Glucose 266 H, Calcium 7.1 L, Total Bilirubin 0.70, AST 25, ALT 17, Alkaline Phosphatase 71, Total Protein 6.4, Albumin 1.6 L, Globulin 4.8 H, Albumin/Globulin Ratio 0.3 L 2. Acute kidney injury most likely prerenal azotemia/hemodynamic fluid shift.? This may be related with sepsis.? Universal Grinder Set Up Operator was consulted.? Labs for Jana and complement and ultrasound ordered.? Lisinopril started.? Patient also had drop in her platelet count from about 175,000-90,000 therefore Lovenox dose decreased to 30 mg SQ twice daily after discussion with the instructional materials director in alliance with decreased creatinine clearance and morbid obesity. 07/24: Further worsening of creatinine. Creatinine 7.11. Patient is well for confused and disoriented. BUN 83. Discussed with the instructional materials director. Dialysis catheter was inserted. 07/25: Patient had right IJ dialysis catheter. Started on dialysis today. No plan for fluid removal as patient is already on Levophed drip. BUN/creatinine went up very high in the last few days, 93/8.58. Patient is oliguric, 210 mL in last 24 hours. 10 mL since midnight, progressing to anuria. 07/26: Patient is anuric. On hemodialysis. Only 15 mL last 24 hours. History of chronic smoking/tobacco, nicotine dependency without diagnosis of COPD: Patient has prolonged history of smoking and still continues. Does not have documented diagnosis of COPD. Patient does not use oxygen at home. Bronchodilator as needed. Metal And Plastic Heater recommended discontinuation of his scheduled vaginal cytosol. On nicotine patch. #3. Hypovolemic hypotonic hyponatremia, mild: Admission sodium 127, prior baselines appear in the normal range primarily, chloride also decreased to 89, repeat sodium shows improvement 132. #4. Hypokalemia: Admission K+ 3.3, repeat potassium 3.6. Serum magnesium 1.7. 07/22: K3.5. Magnesium 2.0. 07/23: K4.1. 07/25: Electrolytes are in acceptable limit. #5. Hx Charcot arthropathy with Hx osteomyelitis, Hx nonpressure chronic ulcer right midfoot: Patient had right foot transmetatarsal amputation. Patient follows Dr. Acevedo as an outpatient wound center with last visit on 07/16/2022 and had office local debridement and was advised nonweightbearing with use of wheelchair and orthotics. Tire Servicer and wound care nurses consulted. 07/22: Findings of MRI described above and shows neuroarthropathy and Charcot's joint along with osteomyelitis. 6 hypertension: Continue home regimen including lisinopril with further adjustments as needed pending blood pressure trend, PRN hydralazine. 7. Hyperlipidemia: Not on statin therapy per current list, encourage continued outpatient follow-up. 8. Diabetes mellitus type II: Hold oral home regimen, ADA diet, accu checks w/ ISS. 07/26 glucose 249 9.. Morbid Obesity: Weight loss and lifestyle changes encouraged. 10. Bilateral lower extremity chronic venous stasis disease: We will maintain on low-dose aspirin, encourage continued hypertensive, hyperlipidemic and DM control. #11. GERD: On Protonix #12 KRYSTAL: CPAP nightly. 13 chronic DVT: Venous duplex reported right popliteal, tibioperoneal trunk consistent with chronic DVT. Compressible right GSV. No apparent change from previous exam of July 2020. Patient on IV heparin drip. CODE status: Patient is does not have healthcare power of guard sergeant nor living will in place. Discussed CODE status at length including difference between FULL code, DNR-CCA and DNR-CC status. Following discussions about the differences in these status, requested Full Code status. Total time of the visit including total time spent in counseling or coordination of care, (more than 50% of the total time, spent in obtaining medical information from nurses and other ancillary care providers,explaining to the patient about labs, imaging, diagnosis and management of active complex medical conditions), discussion with consultants, complexity of medical problems,, review of labs and imaging is 55 minutes. Charges/Coding Visit Charges Inpatient E&M: 62334 Subs Hosp L3
[2022-07-26] MEDS: Dexmedetomidine 1,000 mcg in 0.9% NS 240 mL 22.5 MCG CONT INF (09:34)
[2022-07-26] MEDS: Menthol/Lanolin/Calamine/Znox 113 GM Tube 1 APPLIC TOPICAL ×4 (09:37→20:51)
[2022-07-26] MEDS: Insulin Lispro 100 UNIT/ML INSULN.PEN SC ×4 (09:38→21:00)
--- NOTE | 2022-07-26 11:07 | PCM.PROGNOTE ---
Subjective Subjective Patient sedated today, responsive to painful stimuli. Patient restarted on vasopressors, continued confusion and renal failure. Objective Data Objective Data Vital Signs: Vital Signs Temp Pulse Resp BP Pulse Ox O2 Del Method O2 Flow Rate 97.7 F L 85 21 H 122/48 H 93 Room Air 2 07/26/22 09:00 07/26/22 09:00 07/26/22 09:00 07/26/22 10:45 07/26/22 09:00 07/26/22 09:00 07/25/22 13:00 FiO2 40 07/26/22 08:00 Oxygen Flow Rate (L/min) 2 Oxygen Delivery Method Room Air Weight: 180.2 kg Body Mass Index (BMI) 55.0 Intake & Output: Intake and Output for Last 24 Hours 07/24/22 07/25/22 07/26/22 23:59 23:59 23:59 Intake Total 1205.40 / 1378.73 2153.19 / 2155.54 488.93 / 488.93 Output Total 210 / 210 10 / 10 Balance 995.40 / 1168.73 2138.19 / 2140.54 478.93 / 478.93 Lab / Micro Data Result Diagrams: 07/26/22 06:00 07/26/22 06:00 Labs: Laboratory Results - last 24 hr 07/25/22 13:20: APTT 63.4 H 07/25/22 15:54: POC Glucose 194 H 07/25/22 20:10: APTT 163.6 H* 07/25/22 21:48: POC Glucose 249 H 07/26/22 04:55: APTT 44.1 H 07/26/22 06:00: WBC 17.6 H, RBC 4.28 L, Hgb 11.1 L, Hct 36.1 L, MCV 84.3, MCH 25.9 L, MCHC 30.7 L, RDW Std Deviation 47.8 H, RDW Coeff of Maria Fernanda 15.6 H, Plt Count 108 L, MPV 12.9 H, Neut % (Auto) Not Reportable, Absolute Neuts (auto) 13.2 H, Absolute Lymphs (auto) 2.11, Total Counted 100, Neutrophils % (Manual) 72 H, Band Neutrophils % 3, Lymphocytes % (Manual) 12 L, Monocytes % (Manual) 4, Myelocytes % 8 H, Promyelocytes % 1 H, Diff Path Review May foll, Platelet Estimate SLT DEC, RBC Morphology NORM C+C, Anisocytosis 1+ 07/26/22 06:00: Sodium 135 L, Potassium 4.1, Chloride 98, Carbon Dioxide 21.0, Anion Gap 16 H, BUN 84 H, Creatinine 8.72 H*, Estim Creat Clear Calc 10.23, Est GFR (MDRD) Af Amer 8 L, Est GFR (MDRD) Non-Af 7 L, BUN/Creatinine Ratio 9.6 L, Glucose 266 H, Calcium 7.1 L, Total Bilirubin 0.70, AST 25, ALT 17, Alkaline Phosphatase 71, Total Protein 6.4, Albumin 1.6 L, Globulin 4.8 H, Albumin/Globulin Ratio 0.3 L Micro: Microbiology 07/21/22 11:00 Wound - Left Foot Gram Stain - Final 07/21/22 11:00 Wound - Left Foot Wound Culture - Final Proteus mirabilis Kocuria kristinae 07/21/22 11:00 Wound - Left Foot Anaerobic Culture - Final Bacteroides thetaiotaomicron 07/21/22 09:30 Bone - Left Foot Gram Stain - Final 07/21/22 09:30 Bone - Left Foot Wound Culture - Final Proteus mirabilis Kocuria kristinae 07/21/22 09:30 Bone - Left Foot Anaerobic Culture - Final Bacteroides thetaiotaomicron Anaerobic cocci 07/23/22 10:50 Blood Culture (Wb) - Right Hand Blood Culture - Final Meth. resistant Staph. aureus 07/22/22 16:32 Wound Abcess - Left Foot Gram Stain - Final 07/22/22 16:32 Wound Abcess - Left Foot Wound Culture - Final Meth. resistant Staph. aureus 07/22/22 16:32 Wound Abcess - Left Foot Anaerobic Culture - Preliminary 07/22/22 16:37 Wound Abcess - Right Foot Gram Stain - Final 07/22/22 16:37 Wound Abcess - Right Foot Wound Culture - Final Meth. resistant Staph. aureus 07/22/22 16:37 Wound Abcess - Right Foot Anaerobic Culture - Preliminary 07/22/22 16:35 Bone - Left Foot Gram Stain - Final 07/22/22 16:35 Bone - Left Foot Wound Culture - Final Meth. resistant Staph. aureus 07/22/22 16:35 Bone - Left Foot Anaerobic Culture - Preliminary 07/22/22 16:39 Bone - Right Foot Gram Stain - Final 07/22/22 16:39 Bone - Right Foot Wound Culture - Final No growth aerobically. 07/22/22 16:39 Bone - Right Foot Anaerobic Culture - Preliminary 07/24/22 10:40 Blood Culture (Wb) - Anticubital Right Blood Culture - Preliminary 07/22/22 09:50 Blood Culture (Wb) - Right Hand Blood Culture - Final Staphylococcus aureus 07/20/22 14:55 Blood Culture (Wb) - Anticubital Right Bacteria Detection (PCR) - Final Meth. resistant Staph. aureus 07/20/22 14:55 Blood Culture (Wb) - Anticubital Right Blood Culture - Final Meth. resistant Staph. aureus 07/20/22 14:45 Blood Culture (Wb) - Left Hand Blood Culture - Final Staphylococcus aureus 07/20/22 18:10 Urine, Catheterized Urine Culture - Final Citrobacter freundii 07/20/22 19:47 Mucosa - Nasopharyngeal Respiratory Panel (PCR) - Final 07/20/22 18:10 Urine, Random Legionella Antigen - Final 07/20/22 18:10 Urine, Random Streptococcus pneumoniae Antigen (M - Final 07/20/22 13:55 Nasal Secretion SARS-CoV-2 & FLU Antigen (Rapid) - Final Physical Exam Narrative Patient responsive to painful stimuli today. NV status unchanged, improved edema on right. Derm: Full thickness wound to plantar midfoot, probes to bone, no acute signs of infection. Full thickness wound to plantar left forefoot x2. Plantar 2nd and 4th metatarsal heads, both probe to bone, some edema to 2nd digit. No residual purulence or other signs of acute infection. Assessment & Plan Assessment/Plan (1) Non-pressure chronic ulcer of other part of right foot with fat layer exposed: PLAN: Exam performed. Persistent leukocytosis, patient now on vasopressors to assist BP managment, hospitalist suggest from hemodynamic shift. Patient with significant ZACARIAS w/ ATN, Cr>8 2/2 to sepsis vs vancomycin. Likely planning for dialysis. Duplex +DVT RLE - heparin Wounds clinically today demonstrate healthy bases with minimal signs of acute infection. Bone cultures to right side were negative, bone cultures on left side grew MRSA. Left foot appears to be source of infection. MRI did confirm osteomyelitis on left to 2nd digit, 2nd metatarsal and 3rd metatarsal with a large plantar abscess. Initially, I was hoping that decompression of the abscess with bone biopsy/culture in combination with IV antibiotics would significant improve infection status. Due to continued issues and confirmed osteomyelitis to multiple site in left foot, I would recommend transmetatarsal amputation on the left for definitive infection clearance - will discuss with hospitalist. Will likely await dialysis to see if improvement in mentation to discuss with patient. Vital signs stable at current. Patient on bipap and levophed. persistent leukocytosis noted at 17. Patient receiving IV vanc/zosyn. Patient will require prolonged NWB to bilateral feet on discharge. Recommend SNF once stable. Will continue to follow closely. (2) Non-pressure chronic ulcer of other part of left foot with necrosis of bone: (3) Osteomyelitis of right foot: (4) Charcot's joint of right foot: (5) Type 2 diabetes mellitus with diabetic polyneuropathy:
[2022-07-26 11:45] LABS: Bedside Glucose 228 mg/dL (74-106)
[2022-07-26] MEDS: HEPARIN/D5w 25,000 UNITS 25,000 UNITS/250 ML IV.SOLN. 25 UNITS CONT INF (12:01)
[2022-07-26 13:33] LABS: Partial Thromboplast Time > 200.0 Seconds (24.1-36.2)
[2022-07-26] MEDS: Dexmedetomidine 1,000 mcg in 0.9% NS 240 mL 49.6 MCG CONT INF (14:17)
--- NOTE | 2022-07-26 17:11 | PCM.PN.REN ---
Subjective Subjective no new events. Objective Data Objective Data Vital Signs: Vital Signs Temp Pulse Resp BP Pulse Ox O2 Del Method O2 Flow Rate 100.0 F H 63 17 134/54 H 100 Bi-pap 2 07/26/22 15:00 07/26/22 16:00 07/26/22 16:00 07/26/22 16:00 07/26/22 16:00 07/26/22 16:00 07/25/22 13:00 FiO2 40 07/26/22 16:00 Oxygen Flow Rate (L/min) 2 Oxygen Delivery Method Bi-pap Weight: 180.2 kg Body Mass Index (BMI) 55.0 Intake & Output: Intake and Output for Last 24 Hours 07/24/22 07/25/22 07/26/22 23:59 23:59 23:59 Intake Total 1205.40 / 1378.73 2153.19 / 2155.54 892.96 / 892.96 Output Total 210 / 210 35 / 35 Balance 995.40 / 1168.73 2138.19 / 2140.54 857.96 / 857.96 Lab / Micro Data Result Diagrams: 07/26/22 06:00 07/26/22 06:00 Labs: Laboratory Results - last 24 hr 07/25/22 15:54: POC Glucose 194 H 07/25/22 20:10: APTT 163.6 H* 07/25/22 21:48: POC Glucose 249 H 07/26/22 04:55: APTT 44.1 H 07/26/22 06:00: WBC 17.6 H, RBC 4.28 L, Hgb 11.1 L, Hct 36.1 L, MCV 84.3, MCH 25.9 L, MCHC 30.7 L, RDW Std Deviation 47.8 H, RDW Coeff of Maria Fernanda 15.6 H, Plt Count 108 L, MPV 12.9 H, Neut % (Auto) Not Reportable, Absolute Neuts (auto) 13.2 H, Absolute Lymphs (auto) 2.11, Total Counted 100, Neutrophils % (Manual) 72 H, Band Neutrophils % 3, Lymphocytes % (Manual) 12 L, Monocytes % (Manual) 4, Myelocytes % 8 H, Promyelocytes % 1 H, Diff Path Review May foll, Platelet Estimate SLT DEC, RBC Morphology NORM C+C, Anisocytosis 1+ 07/26/22 06:00: Sodium 135 L, Potassium 4.1, Chloride 98, Carbon Dioxide 21.0, Anion Gap 16 H, BUN 84 H, Creatinine 8.72 H*, Estim Creat Clear Calc 10.23, Est GFR (MDRD) Af Amer 8 L, Est GFR (MDRD) Non-Af 7 L, BUN/Creatinine Ratio 9.6 L, Glucose 266 H, Calcium 7.1 L, Total Bilirubin 0.70, AST 25, ALT 17, Alkaline Phosphatase 71, Total Protein 6.4, Albumin 1.6 L, Globulin 4.8 H, Albumin/Globulin Ratio 0.3 L 07/26/22 11:12: POC Glucose 228 H 07/26/22 12:55: APTT > 200.0 H* Micro: Microbiology 07/25/22 09:50 Blood Culture (Wb) - Anticubital Right Blood Culture - Preliminary 07/24/22 10:40 Blood Culture (Wb) - Anticubital Right Blood Culture - Final Staphylococcus aureus 07/21/22 11:00 Wound - Left Foot Gram Stain - Final 07/21/22 11:00 Wound - Left Foot Wound Culture - Final Proteus mirabilis Kocuria kristinae 07/21/22 11:00 Wound - Left Foot Anaerobic Culture - Final Bacteroides thetaiotaomicron 07/21/22 09:30 Bone - Left Foot Gram Stain - Final 07/21/22 09:30 Bone - Left Foot Wound Culture - Final Proteus mirabilis Kocuria kristinae 07/21/22 09:30 Bone - Left Foot Anaerobic Culture - Final Bacteroides thetaiotaomicron Anaerobic cocci 07/23/22 10:50 Blood Culture (Wb) - Right Hand Blood Culture - Final Meth. resistant Staph. aureus 07/22/22 16:32 Wound Abcess - Left Foot Gram Stain - Final 07/22/22 16:32 Wound Abcess - Left Foot Wound Culture - Final Meth. resistant Staph. aureus 07/22/22 16:32 Wound Abcess - Left Foot Anaerobic Culture - Preliminary 07/22/22 16:37 Wound Abcess - Right Foot Gram Stain - Final 07/22/22 16:37 Wound Abcess - Right Foot Wound Culture - Final Meth. resistant Staph. aureus 07/22/22 16:37 Wound Abcess - Right Foot Anaerobic Culture - Preliminary 07/22/22 16:35 Bone - Left Foot Gram Stain - Final 07/22/22 16:35 Bone - Left Foot Wound Culture - Final Meth. resistant Staph. aureus 07/22/22 16:35 Bone - Left Foot Anaerobic Culture - Preliminary 07/22/22 16:39 Bone - Right Foot Gram Stain - Final 07/22/22 16:39 Bone - Right Foot Wound Culture - Final No growth aerobically. 07/22/22 16:39 Bone - Right Foot Anaerobic Culture - Preliminary 07/22/22 09:50 Blood Culture (Wb) - Right Hand Blood Culture - Final Staphylococcus aureus 07/20/22 14:55 Blood Culture (Wb) - Anticubital Right Bacteria Detection (PCR) - Final Meth. resistant Staph. aureus 07/20/22 14:55 Blood Culture (Wb) - Anticubital Right Blood Culture - Final Meth. resistant Staph. aureus 07/20/22 14:45 Blood Culture (Wb) - Left Hand Blood Culture - Final Staphylococcus aureus 07/20/22 18:10 Urine, Catheterized Urine Culture - Final Citrobacter freundii 07/20/22 19:47 Mucosa - Nasopharyngeal Respiratory Panel (PCR) - Final 07/20/22 18:10 Urine, Random Legionella Antigen - Final 07/20/22 18:10 Urine, Random Streptococcus pneumoniae Antigen (M - Final 07/20/22 13:55 Nasal Secretion SARS-CoV-2 & FLU Antigen (Rapid) - Final Physical Exam Narrative General: Alert and no apparent distress HEENT: Normocephalic Heart: Normal S1, S2. No R/M/G. Lungs: Diminished lung sounds; Negative for rales, rhonchi or wheezes Abdomen: Normal bowel sounds Extremity: No edema. Faulkner with scant yellow urine in bag Assessment & Plan Assessment/Plan (1) ZACARIAS (acute kidney injury): (2) Hyponatremia: (3) Sepsis: PLAN: Plan Initially nonoliguric acute kidney injury likely prerenal from sepsis now evolved to ATN. Another possible cause of ZACARIAS could be from nephrotoxic ATN from vancomycin. Vanco trough and random levels elevated at 37 and 35. Off lisinopril. Serum creatinine was 1.29 mg/dL on admission (07/20). started on HD 07/25/21. last HD 07/25/21 no acute indications today next HD tomorrow electrolytes are ok complements are ok
[2022-07-26] MEDS: 0.9% Saline Lock 10 ML Syringe IV ×2 (17:14→20:52)
[2022-07-26 17:46] LABS: Bedside Glucose 235 mg/dL (74-106)
[2022-07-26] MEDS: Dexmedetomidine 1,000 mcg in 0.9% NS 240 mL 36 MCG CONT INF (20:50)
[2022-07-26 21:14] LABS: Partial Thromboplast Time 64.8 Seconds (24.1-36.2)
[2022-07-26 21:21] LABS: Bedside Glucose 245 mg/dL (74-106)
[2022-07-27] VITALS (30 sets, daily range): BP systolic 96–133; BP diastolic 40–85; PULSE 56–71; RESP 12–34; TEMP 36.8–38.8; O2SAT 91–100
[2022-07-27] MEDS: HEPARIN/D5w 25,000 UNITS 25,000 UNITS/250 ML IV.SOLN. 22 UNITS CONT INF ×2 (00:58→13:25)
--- NOTE | 2022-07-27 01:52 | CPS ---
Patient placed on AVAPS per LINE INSPECTOR due to low Tidal Volumes when sleeping
[2022-07-27 03:26] LABS: Hematocrit 38.8 % (40-54); Hemoglobin 12.3 g/dL (13.0-16.5); Mean Corp Hgb Conc 31.7 g/dL (32-36); Mean Corpuscular Hgb 25.7 pg (27.0-32.0); Mean Platelet Vol. 14.2 fl (6.2-12.0); POSITIVE COUNT YES; POSITIVE MORPHOLOGY YES; Platelet Count 110 K/mm3 (150-450); RBC Distribution Width CV 15.9 % (11.6-14.6); RBC Distribution Width SD 46.2 fl (35.1-43.9); Red Blood Count 4.79 M/mm3 (4.6-6.2); White Blood Count 12.1 K/mm3 (4.4-11.0)
[2022-07-27 04:01] LABS: Partial Thromboplast Time 56.6 Seconds (24.1-36.2)
[2022-07-27 04:28] LABS: AST(SGOT) 4203 U/L (15-37); Alanine Aminotransfer ALT/SGPT 1074 U/L (16-61); Albumin, Serum 1.6 g/dL (3.2-5.0); Alkaline Phosphatase 71 U/L (45-117); Anion Gap 15 (5-15); BUN 107 mg/dL (7-18); Bilirubin, Direct 0.43 mg/dL (0.00-0.30); Calcium,Total 7.3 mg/dL (8.5-10.1); Chloride 102 mmol/L (98-107); EST Glomerular Filtration Rate 5 mL/min (>60); Est Glom Filt Rate - Afr Amer 7 mL/min (>60); Estimated Creatinine Clearance 8.34 ml/min; Globulin 5.1 g/dL (2.2-4.2); Glucose 224 mg/dL (74-106); Potassium 5.1 mmol/L (3.5-5.1); Protein, Total 6.7 g/dL (6.4-8.2); Sodium Level 137 mmol/L (136-145)
[2022-07-27 04:29] LABS: Differential Indicated MANUAL DIFF
[2022-07-27] MEDS: Dexmedetomidine 1,000 mcg in 0.9% NS 240 mL 31.5 MCG CONT INF (04:38)
[2022-07-27 05:16] LABS: Anisocytosis 1+; Platelet Estimate SLT DEC (ADEQ)
[2022-07-27 05:19] LABS: Atypical Lymphocyte 1+ %; Lymphocyte 19 % (19-41); Monocyte 5 % (0-10); Myelocyte 10 % (0-0); Neutrophil-Segmented 66 % (47-70); Red Cell Morphology NORM C+C NORMAL (NORM C&C); Total Cells Counted 100 (MANUAL DIFF)
--- NOTE | 2022-07-27 06:58 | PN.CC_ITS ---
Assessment & Plan Assessment/Plan (1) Sepsis: PLAN: Plan RECOMMENDATIONS: 1. Antimicrobials per infectious diseases. 2. Continue local wound care. Podiatry to determine possible amputation 3. Continue Levophed on MAR for now until able to tolerate hemodialysis 4. Dialysis support per nephrology recommendations. 5. The patient should be n.p.o., pending improvement in mentation. 6. Wean supplemental oxygen to maintain saturations at or above 90%. IMPRESSIONS: 1. Septic shock The patient presented to the hospital with sepsis due to osteomyelitis with secondary MRSA, among others, bacteremia and acute sepsis related organ dysfunction as evidenced by lactic acidemia and hemodynamic instability requiring vasopressor support. The patient remains on antimicrobials under the discretion of infectious diseases, but continues to have persistently positive blood cultures. The patient did ultimately undergo surgical debridement under the discretion of podiatry on July 22. Echocardiogram did not reveal any ev idence of valvular vegetations. Clinical suspicion for embolic spread to the lungs. Patient is currently off of pressors, but will keep on the MAR as patient will require hemodialysis today. 2. Acute kidney injury Most likely prerenal in etiology in the setting of #1, with gradual evolution to ATN. Nephrology is following to assist with medical management. Renal ultrasound was unremarkable. Continue dialysis support per nephrology recommendations. 3. Encephalopathy Most likely metabolic in etiology and related to underlying infection and renal dysfunction. The patient does have a tendency to retain CO2. Therefore, BiPAP therapy will be appropriate with naps and sleep. I would strongly advise against the use of morphine in a patient with underlying renal dysfunction. Out of bed as tolerated to possible 4. Chronic tobacco dependency without diagnosis of COPD Although the patient has a longstanding tobacco abuse history, he denied ever having been diagnosed with COPD. It is reasonable to continue as needed bronchodilator therapy. Recommend weaning supplemental oxygen as tolerated for s aturations greater than 90%. Nicotine replacement therapy can be offered to the patient while admitted to the hospital. 5. History of osteomyelitis with Charcot arthropathy/hypertens ion/hyperlipidemia/morbid obesity/diabetes mellitus Complicates care, management, recovery and prognosis. Continue sliding scale insulin coverage. Subjective Subjective Patient did okay overnight from a hemodynamic standpoint. Patient did require BiPAP with sleep. Patient has been receiving Precedex and heparin by drip, but is off of Levophed. Patient did spike a fever overnight. Patient did not recei ve hemodialysis yesterday, but reportedly is scheduled for today. Objective Data Objective Data Vital Signs: Vital Signs Temp Pulse Resp BP Pulse Ox O2 Del Method O2 Flow Rate 38.6 C H 67 29 H 98/85 H 96 Bi-pap 2 07/27/22 06:00 07/27/22 06:00 07/27/22 06:00 07/27/22 06:00 07/27/22 06:00 07/27/22 06:00 07/25/22 13:00 FiO2 30 07/27/22 06:00 Oxygen Flow Rate (L/min) 2 Oxygen Delivery Method Bi-pap Weight: 180.5 kg Body Mass Index (BMI) 55.0 Intake & Output: Intake and Output for Last 24 Hours 07/25/22 07/26/22 07/27/22 23:59 23:59 23:59 Intake Total 2153.19 / 2155.54 1317.66 / 1353.66 346.72 / 346.72 Output Total 35 / 95 60 / 60 Balance 2138.19 / 2140.54 1282.66 / 1258.66 286.72 / 286.72 Lab / Micro Data Attestation: I reviewed the patient's lab results. Result Diagrams: 07/27/22 03:10 07/27/22 03:10 Labs: Laboratory Results - last 24 hr 07/26/22 06:00: Absolute Neuts (auto) 13.2 H, Absolute Lymphs (auto) 2.11, Total Counted 100, Neutrophils % (Manual) 72 H, Band Neutrophils % 3, Lymphocytes % (Manual) 12 L, Monocytes % (Manual) 4, Myelocytes % 8 H, Promyelocytes % 1 H, Diff Path Review May ron, Platelet Estimate SLT DEC, RBC Morphology NORM C+C, Anisocytosis 1+ 07/26/22 11:12: POC Glucose 228 H 07/26/22 12:55: APTT > 200.0 H* 07/26/22 17:04: POC Glucose 235 H 07/26/22 20:55: APTT 64.8 H 07/26/22 21:00: POC Glucose 245 H 07/27/22 03:10: WBC 12.1 H, RBC 4.79, Hgb 12.3 L, Hct 38.8 L, MCV 81.0, MCH 25.7 L, MCHC 31.7 L, RDW Std Deviation 46.2 H, RDW Coeff of Maria Fernanda 15.9 H, Plt Count 110 L, MPV 14.2 H, Neut % (Auto) Not Reportable, Absolute Neuts (auto) 8.0 H, Absolute Lymphs (auto) 2.30, Total Counted 100, Neutrophils % (Manual) 66, Lymphocytes % (Manual) 19, Monocytes % (Manual) 5, Myelocytes % 10 H, Diff Path Review May foll, Atypical Lymphocytes 1+, Platelet Estimate SLT DEC, RBC Morphology NORM C+C, Anisocytosis 1+ 07/27/22 03:10: Sodium 137, Potassium 5.1, Chloride 102, Carbon Dioxide 20.0 L, Anion Gap 15, BUN 107 H*, Creatinine 10.70 H*, Estim Creat Clear Calc 8.34, Est GFR (MDRD) Af Amer 7 L, Est GFR (MDRD) Non-Af 5 L, BUN/Creatinine Ratio 10.0, Glucose 224 H, Calcium 7.3 L, Total Bilirubin 0.70, Direct Bilirubin 0.43 H, AST 4203 H, ALT 1074 H, Alkaline Phosphatase 71, Total Protein 6.7, Albumin 1.6 L, Globulin 5.1 H 07/27/22 03:10: APTT 56.6 H Micro: Microbiology 07/25/22 09:50 Blood Culture (Wb) - Anticubital Right Blood Culture - Preliminary 07/24/22 10:40 Blood Culture (Wb) - Anticubital Right Blood Culture - Final Staphylococcus aureus 07/21/22 11:00 Wound - Left Foot Gram Stain - Final 07/21/22 11:00 Wound - Left Foot Wound Culture - Final Proteus mirabilis Kocuria kristinae 07/21/22 11:00 Wound - Left Foot Anaerobic Culture - Final Bacteroides thetaiotaomicron 07/21/22 09:30 Bone - Left Foot Gram Stain - Final 07/21/22 09:30 Bone - Left Foot Wound Culture - Final Proteus mirabilis Kocuria kristinae 07/21/22 09:30 Bone - Left Foot Anaerobic Culture - Final Bacteroides thetaiotaomicron Anaerobic cocci 07/23/22 10:50 Blood Culture (Wb) - Right Hand Blood Culture - Final Meth. resistant Staph. aureus 07/22/22 16:32 Wound Abcess - Left Foot Gram Stain - Final 07/22/22 16:32 Wound Abcess - Left Foot Wound Culture - Final Meth. resistant Staph. aureus 07/22/22 16:32 Wound Abcess - Left Foot Anaerobic Culture - Preliminary 07/22/22 16:37 Wound Abcess - Right Foot Gram Stain - Final 07/22/22 16:37 Wound Abcess - Right Foot Wound Culture - Final Meth. resistant Staph. aureus 07/22/22 16:37 Wound Abcess - Right Foot Anaerobic Culture - Preliminary 07/22/22 16:35 Bone - Left Foot Gram Stain - Final 07/22/22 16:35 Bone - Left Foot Wound Culture - Final Meth. resistant Staph. aureus 07/22/22 16:35 Bone - Left Foot Anaerobic Culture - Preliminary 07/22/22 16:39 Bone - Right Foot Gram Stain - Final 07/22/22 16:39 Bone - Right Foot Wound Culture - Final No growth aerobically. 07/22/22 16:39 Bone - Right Foot Anaerobic Culture - Preliminary 07/22/22 09:50 Blood Culture (Wb) - Right Hand Blood Culture - Final Staphylococcus aureus 07/20/22 14:55 Blood Culture (Wb) - Anticubital Right Bacteria Detection (PCR) - Final Meth. resistant Staph. aureus 07/20/22 14:55 Blood Culture (Wb) - Anticubital Right Blood Culture - Final Meth. resistant Staph. aureus 07/20/22 14:45 Blood Culture (Wb) - Left Hand Blood Culture - Final Staphylococcus aureus 07/20/22 18:10 Urine, Catheterized Urine Culture - Final Citrobacter freundii 07/20/22 19:47 Mucosa - Nasopharyngeal Respiratory Panel (PCR) - Final 07/20/22 18:10 Urine, Random Legionella Antigen - Final 07/20/22 18:10 Urine, Random Streptococcus pneumoniae Antigen (M - Final 07/20/22 13:55 Nasal Secretion SARS-CoV-2 & FLU Antigen (Rapid) - Final Physical Exam Const alert and no apparent distress Constitutional Narrative: The patient is impulsive. Orientation / Consciousness: confused Nutritional Appearance: morbidly obese HEENT normocephalic, head/scalp atraumatic and moist oral mucous membranes Eyes PERRL, EOMs intact bilaterally and conjunctivae normal Neck supple General: trachea midline and CVC in place Chest inspection of chest normal Resp Auscultation: diminished lung sounds; Negative for rales, rhonchi or wheezes Cardio regular rate, regular rhythm, S1 normal heart sound, S2 normal heart sound, no murmurs, no rub and no gallops GI normal to inspection, nondistended, normoactive bowel sounds Extremity Extremity Narrative: Wrapped lower extremities. General Extremity: edema; Negative for clubbing Skin General Skin Exam: venous stasis and dermatitis Neuro CN's II-XII intact bilaterally, moves all extremities and no focal motor deficits Psych Activity / Motor Behavior: restless Mood & Affect: flat affect Charges/Coding Visit Charges Inpatient E&M: 70301 Subs Hosp L3
--- NOTE | 2022-07-27 07:15 | PCM.PN.HOSP ---
Subjective Subjective Follow-up for septic shock/MRSA bacteremia/ZACARIAS/osteomyelitis; Patient was seen and examined. He was seen on BiPAP. He is on Precedex drip for agitation, currently, sedated. Off Levophed drip. No other acute events overnight. Objective Data Objective Data Vital Signs: Vital Signs Temp Pulse Resp BP Pulse Ox O2 Del Method O2 Flow Rate 101.5 F H 67 29 H 98/85 H 96 Bi-pap 2 07/27/22 06:00 07/27/22 06:00 07/27/22 06:00 07/27/22 06:00 07/27/22 06:00 07/27/22 06:00 07/25/22 13:00 FiO2 30 07/27/22 06:00 Oxygen Flow Rate (L/min) 2 Oxygen Delivery Method Bi-pap Weight: 180.5 kg Body Mass Index (BMI) 55.0 Intake & Output: Intake and Output for Last 24 Hours 07/25/22 07/26/22 07/27/22 23:59 23:59 23:59 Intake Total 2153.19 / 2155.54 1317.66 / 1353.66 346.72 / 346.72 Output Total 35 / 95 60 / 60 Balance 2138.19 / 2140.54 1282.66 / 1258.66 286.72 / 286.72 Lab / Micro Data Result Diagrams: 07/27/22 03:10 07/27/22 03:10 Labs: Laboratory Results - last 24 hr 07/26/22 06:00: Absolute Neuts (auto) 13.2 H, Absolute Lymphs (auto) 2.11, Total Counted 100, Neutrophils % (Manual) 72 H, Band Neutrophils % 3, Lymphocytes % (Manual) 12 L, Monocytes % (Manual) 4, Myelocytes % 8 H, Promyelocytes % 1 H, Diff Path Review May foll, Platelet Estimate SLT DEC, RBC Morphology NORM C+C, Anisocytosis 1+ 07/26/22 11:12: POC Glucose 228 H 07/26/22 12:55: APTT > 200.0 H* 07/26/22 17:04: POC Glucose 235 H 07/26/22 20:55: APTT 64.8 H 07/26/22 21:00: POC Glucose 245 H 07/27/22 03:10: WBC 12.1 H, RBC 4.79, Hgb 12.3 L, Hct 38.8 L, MCV 81.0, MCH 25.7 L, MCHC 31.7 L, RDW Std Deviation 46.2 H, RDW Coeff of Maria Fernanda 15.9 H, Plt Count 110 L, MPV 14.2 H, Neut % (Auto) Not Reportable, Absolute Neuts (auto) 8.0 H, Absolute Lymphs (auto) 2.30, Total Counted 100, Neutrophils % (Manual) 66, Lymphocytes % (Manual) 19, Monocytes % (Manual) 5, Myelocytes % 10 H, Diff Path Review May foll, Atypical Lymphocytes 1+, Platelet Estimate SLT DEC, RBC Morphology NORM C+C, Anisocytosis 1+ 07/27/22 03:10: Sodium 137, Potassium 5.1, Chloride 102, Carbon Dioxide 20.0 L, Anion Gap 15, BUN 107 H*, Creatinine 10.70 H*, Estim Creat Clear Calc 8.34, Est GFR (MDRD) Af Amer 7 L, Est GFR (MDRD) Non-Af 5 L, BUN/Creatinine Ratio 10.0, Glucose 224 H, Calcium 7.3 L, Total Bilirubin 0.70, Direct Bilirubin 0.43 H, AST 4203 H, ALT 1074 H, Alkaline Phosphatase 71, Total Protein 6.7, Albumin 1.6 L, Globulin 5.1 H 07/27/22 03:10: APTT 56.6 H Micro: Microbiology 07/25/22 09:50 Blood Culture (Wb) - Anticubital Right Blood Culture - Preliminary 07/24/22 10:40 Blood Culture (Wb) - Anticubital Right Blood Culture - Final Staphylococcus aureus 07/21/22 11:00 Wound - Left Foot Gram Stain - Final 07/21/22 11:00 Wound - Left Foot Wound Culture - Final Proteus mirabilis Kocuria kristinae 07/21/22 11:00 Wound - Left Foot Anaerobic Culture - Final Bacteroides thetaiotaomicron 07/21/22 09:30 Bone - Left Foot Gram Stain - Final 07/21/22 09:30 Bone - Left Foot Wound Culture - Final Proteus mirabilis Kocuria kristinae 07/21/22 09:30 Bone - Left Foot Anaerobic Culture - Final Bacteroides thetaiotaomicron Anaerobic cocci 07/23/22 10:50 Blood Culture (Wb) - Right Hand Blood Culture - Final Meth. resistant Staph. aureus 07/22/22 16:32 Wound Abcess - Left Foot Gram Stain - Final 07/22/22 16:32 Wound Abcess - Left Foot Wound Culture - Final Meth. resistant Staph. aureus 07/22/22 16:32 Wound Abcess - Left Foot Anaerobic Culture - Preliminary 07/22/22 16:37 Wound Abcess - Right Foot Gram Stain - Final 07/22/22 16:37 Wound Abcess - Right Foot Wound Culture - Final Meth. resistant Staph. aureus 07/22/22 16:37 Wound Abcess - Right Foot Anaerobic Culture - Preliminary 07/22/22 16:35 Bone - Left Foot Gram Stain - Final 07/22/22 16:35 Bone - Left Foot Wound Culture - Final Meth. resistant Staph. aureus 07/22/22 16:35 Bone - Left Foot Anaerobic Culture - Preliminary 07/22/22 16:39 Bone - Right Foot Gram Stain - Final 07/22/22 16:39 Bone - Right Foot Wound Culture - Final No growth aerobically. 07/22/22 16:39 Bone - Right Foot Anaerobic Culture - Preliminary 07/22/22 09:50 Blood Culture (Wb) - Right Hand Blood Culture - Final Staphylococcus aureus 07/20/22 14:55 Blood Culture (Wb) - Anticubital Right Bacteria Detection (PCR) - Final Meth. resistant Staph. aureus 07/20/22 14:55 Blood Culture (Wb) - Anticubital Right Blood Culture - Final Meth. resistant Staph. aureus 07/20/22 14:45 Blood Culture (Wb) - Left Hand Blood Culture - Final Staphylococcus aureus 07/20/22 18:10 Urine, Catheterized Urine Culture - Final Citrobacter freundii 07/20/22 19:47 Mucosa - Nasopharyngeal Respiratory Panel (PCR) - Final 07/20/22 18:10 Urine, Random Legionella Antigen - Final 07/20/22 18:10 Urine, Random Streptococcus pneumoniae Antigen (M - Final 07/20/22 13:55 Nasal Secretion SARS-CoV-2 & FLU Antigen (Rapid) - Final Physical Exam Narrative Physical exam: General: Alert, sedated, Cooperative, morbidly obese, on BiPAP HEENT: Atraumatic Oral: Moist Mucosa Neck: Supple Lungs: Diminished to auscultation Cardiovascular: HS I+II, regular, no murmurs Abdomen: Bowel Sounds Present, Soft, Non Tender Extremities: Jens wraps to both lower extremities, duskiness of toes Skin: No rashes, No breakdown Neurological: Grossly intact Psych/Mental Status: Appropriate Assessment & Plan Assessment/Plan (1) ZACARIAS (acute kidney injury): (2) Osteomyelitis of left foot: PLAN: Plan 1. 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 Acute combined respiratory failure, likely secondary to septic emboli, patient remains on BiPAP Continue with antibiotics, breathing treatments Clinical Unit Coordinator following 3. Acute right popliteal, tibioperoneal trunk and gastrocnemius vein DVT, continue heparin drip 4. Acute kidney injury likely secondary to ATN from above Creatinine currently is 10.70, it was 1.29 on admission Started on hemodialysis on 07/12/2021 Nephrology following, probable hemodialysis today Trend lab 5. Acute metabolic encephalopathy secondary to above #1 and 4 6. Hypertension, now hypotensive, not on any medications, continue to monitor blood pressures 7. Type II DM, blood sugars are fairly uncontrolled, will switch to medium to high dose insulin sliding scale Check HgbA1c 8. Rest of chronic medical conditions including GERD/KRYSTAL, complicates care 9. DVT PPx- On heparin drip Charges/Coding Visit Charges Inpatient E&M: 60860 Subs Hosp L3
[2022-07-27] MEDS: Insulin Lispro 100 UNIT/ML INSULN.PEN SC ×4 (08:06→21:49)
[2022-07-27] MEDS: Menthol/Lanolin/Calamine/Znox 113 GM Tube 1 APPLIC TOPICAL ×4 (08:07→21:44)
[2022-07-27 09:25] LABS: Hemoglobin A1c 11.2 % (3.8-5.6)
--- NOTE | 2022-07-27 09:29 | CASEMGMT ---
Social Work Pt with medical changes over the weekend. Clinical updates sent to [facility]. Precert has not been started at this time due to medical issues. will continue to follow for discharge planning when pt is more medically stable. Plan: [facility], precert will need to be started. GURMEET Sahni
[2022-07-27] MEDS: Dexmedetomidine 1,000 mcg in 0.9% NS 240 mL 36 MCG CONT INF (11:09)
--- NOTE | 2022-07-27 12:59 | PN.RENAL_ITS ---
Subjective Subjective Following for dialysis dependent ZACARIAS. The patient is somnolent and is on NIV during my visit. He has been more confused since last week per my discussion with RN. The patient was seen during hemodialysis treatment. Objective Data Objective Data Vital Signs: Vital Signs Temp Pulse Resp BP Pulse Ox O2 Del Method O2 Flow Rate 100.6 F H 67 30 H 132/60 H 100 Bi-pap 2 07/27/22 11:00 07/27/22 11:00 07/27/22 11:00 07/27/22 11:00 07/27/22 11:00 07/27/22 10:00 07/25/22 13:00 FiO2 30 07/27/22 10:00 Oxygen Flow Rate (L/min) 2 Oxygen Delivery Method Bi-pap Weight: 180.5 kg Body Mass Index (BMI) 55.0 Intake & Output: Intake and Output for Last 24 Hours 07/25/22 07/26/22 07/27/22 23:59 23:59 23:59 Intake Total 2153.19 / 2155.54 1317.66 / 1353.66 549.17 / 549.17 Output Total 35 / 95 60 / 60 Balance 2138.19 / 2140.54 1282.66 / 1258.66 489.17 / 489.17 Lab / Micro Data Result Diagrams: 07/27/22 03:10 07/27/22 03:10 Labs: Laboratory Results - last 24 hr 07/26/22 12:55: APTT > 200.0 H* 07/26/22 17:04: POC Glucose 235 H 07/26/22 20:55: APTT 64.8 H 07/26/22 21:00: POC Glucose 245 H 07/27/22 03:10: WBC 12.1 H, RBC 4.79, Hgb 12.3 L, Hct 38.8 L, MCV 81.0, MCH 25.7 L, MCHC 31.7 L, RDW Std Deviation 46.2 H, RDW Coeff of Maria Fernanda 15.9 H, Plt Count 110 L, MPV 14.2 H, Neut % (Auto) Not Reportable, Absolute Neuts (auto) 8.0 H, Absolute Lymphs (auto) 2.30, Total Counted 100, Neutrophils % (Manual) 66, Lymphocytes % (Manual) 19, Monocytes % (Manual) 5, Myelocytes % 10 H, Diff Path Review May foll, Atypical Lymphocytes 1+, Platelet Estimate SLT DEC, RBC Morphology NORM C+C, Anisocytosis 1+ 07/27/22 03:10: Sodium 137, Potassium 5.1, Chloride 102, Carbon Dioxide 20.0 L, Anion Gap 15, BUN 107 H*, Creatinine 10.70 H*, Estim Creat Clear Calc 8.34, Est GFR (MDRD) Af Amer 7 L, Est GFR (MDRD) Non-Af 5 L, BUN/Creatinine Ratio 10.0, Glucose 224 H, Calcium 7.3 L, Total Bilirubin 0.70, Direct Bilirubin 0.43 H, AST 4203 H, ALT 1074 H, Alkaline Phosphatase 71, Total Protein 6.7, Albumin 1.6 L, Globulin 5.1 H 07/27/22 03:10: APTT 56.6 H 07/27/22 03:10: Hemoglobin A1c 11.2 H Micro: Microbiology 07/22/22 16:39 Bone - Right Foot Gram Stain - Final 07/22/22 16:39 Bone - Right Foot Wound Culture - Final No growth aerobically. 07/22/22 16:39 Bone - Right Foot Anaerobic Culture - Final Anaerobic cocci 07/22/22 16:37 Wound Abcess - Right Foot Gram Stain - Final 07/22/22 16:37 Wound Abcess - Right Foot Wound Culture - Final Meth. resistant Staph. aureus 07/22/22 16:37 Wound Abcess - Right Foot Anaerobic Culture - Final Anaerobic cocci 07/22/22 16:35 Bone - Left Foot Gram Stain - Final 07/22/22 16:35 Bone - Left Foot Wound Culture - Final Meth. resistant Staph. aureus 07/22/22 16:35 Bone - Left Foot Anaerobic Culture - Final No anaerobic bacteria isolated. 07/22/22 16:32 Wound Abcess - Left Foot Gram Stain - Final 07/22/22 16:32 Wound Abcess - Left Foot Wound Culture - Final Meth. resistant Staph. aureus 07/22/22 16:32 Wound Abcess - Left Foot Anaerobic Culture - Final No anaerobic bacteria isolated. 07/25/22 09:50 Blood Culture (Wb) - Anticubital Right Blood Culture - Preliminary Staphylococcus aureus 07/24/22 10:40 Blood Culture (Wb) - Anticubital Right Blood Culture - Final Staphylococcus aureus 07/21/22 11:00 Wound - Left Foot Gram Stain - Final 07/21/22 11:00 Wound - Left Foot Wound Culture - Final Proteus mirabilis Kocuria tyraistinae 07/21/22 11:00 Wound - Left Foot Anaerobic Culture - Final Bacteroides thetaiotaomicron 07/21/22 09:30 Bone - Left Foot Gram Stain - Final 07/21/22 09:30 Bone - Left Foot Wound Culture - Final Proteus mirabilis Kocuria kristinae 07/21/22 09:30 Bone - Left Foot Anaerobic Culture - Final Bacteroides thetaiotaomicron Anaerobic cocci 07/23/22 10:50 Blood Culture (Wb) - Right Hand Blood Culture - Final Meth. resistant Staph. aureus 07/22/22 09:50 Blood Culture (Wb) - Right Hand Blood Culture - Final Staphylococcus aureus 07/20/22 14:55 Blood Culture (Wb) - Anticubital Right Bacteria Detection (PCR) - Final Meth. resistant Staph. aureus 07/20/22 14:55 Blood Culture (Wb) - Anticubital Right Blood Culture - Final Meth. resistant Staph. aureus 07/20/22 14:45 Blood Culture (Wb) - Left Hand Blood Culture - Final Staphylococcus aureus 07/20/22 18:10 Urine, Catheterized Urine Culture - Final Citrobacter freundii 07/20/22 19:47 Mucosa - Nasopharyngeal Respiratory Panel (PCR) - Final 07/20/22 18:10 Urine, Random Legionella Antigen - Final 07/20/22 18:10 Urine, Random Streptococcus pneumoniae Antigen (M - Final 07/20/22 13:55 Nasal Secretion SARS-CoV-2 & FLU Antigen (Rapid) - Final Physical Exam Narrative General: Ill-appearing man on BiPAP HEENT: Normocephalic Heart: Normal S1, S2. No R/M/G. Lungs: Diminished lung sounds; Negative for rales, rhonchi or wheezes Abdomen: Normal bowel sounds Extremity: 1+ lower extremity edema. 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 The patient is being treated for MRSA bacteremia with septic emboli to the lungs along with UTI.? Nephrology is asked to see the patient because of ZACARIAS. Acute kidney injury. Baseline serum creatinine appears to be around 1.10 mg/dL. ZACARIAS is likely due to hemodynamic changes causing prerenal azotemia has likely evolved to ischemic ATN.? This is related to severe sepsis and recent fluctuation in BP in the patient with chronic hypertension.? The patient required IV vasopressor for around 24 hours on 07/25/2022 as well. Another possible cause of ZACARIAS would be nephrotoxic ATN due to IV vancomycin.? The chance of nephrotoxic ATN from vancomycin increases when it is combined with piperacillin/tazobactam. Although infection related acute glomerulonephritis is possible, it is less l ikely as urinalysis did not show significant RBCs.? Low suspicion for other causes of ZACARIAS at this time, but I will check ultrasound of the kidney to be complete. Renal ultrasound did not show any obstruction. I have stopped lisinopril altogether for now to avoid confusion. Vancomycin has been stopped and he is now on daptomycin instead. Restarted dialysis on 07/25/2022 because of worsening azotemia and confusion. We will continue to keep patient on MWF dialysis schedule. I supervised the dialysis treatment today: F160 dialyzer is used, blood flow 400 mL/min, dialysate flow 600 mL/min. 2K dialysate is used. We will try to remove 1.5 L of fluid with hemodialysis. Keep MAP above 65 mmHg. Current medications are reviewed. Hyponatremia. The patient has mild hyponatremia which has improved.? Serum sodium was 127 mmol/L on 07/20/2022. Serum sodium has improved to 137 mmol/L today. Will continue to monitor serum sodium. Severe sepsis?secondary to MRSA bloodstream infection with septic emboli to the lungs and Citrobacter freundii UTI. Will discuss holding vancomycin with ID.
--- NOTE | 2022-07-27 13:16 | PN.ID_ITS ---
Physical Exam Narrative No fever, sleeping today. Const no apparent distress Resp normal air movement and clear to auscultation bilaterally Cardio regular rate and regular rhythm GI soft to palpation, non-tender and non-distended Extremity General Extremity: edema Skin Skin Narrative: feet wrapped ID ID: Route of nutrition/ use of supplements: [] Nutritional Intake: [] IV Site: [] Faulkner Catheter: [] Assessment & Plan Assessment/Plan (1) Osteomyelitis: QUALIFIERS: Osteomyelitis type: other acute Osteomyelitis location: foot Laterality: right Qualified Code(s): M86.171 - Other acute osteomyelitis, right ankle and foot (2) Type 2 diabetes mellitus with diabetic polyneuropathy: QUALIFIERS: Diabetes mellitus ferry terminal agent insulin use: unspecified nursing home insulin use status Qualified Code(s): E11.42 - Type 2 diabetes mellitus with diabetic polyneuropathy (3) Sepsis: PLAN: sepsis due to MRSA bacteremia from L foot osteo with h/o DM neuropathy - on dapto/zosyn. Followed by podiatry. Taken to OR 07/22/[address] Babin for bilat feet I&D. Surg cx with MRSA, proteus, kocuria, anaerobes. Repeat bcx today and tomorrow. Will follow (4) MRSA bacteremia:
[2022-07-27 13:21] LABS: Bedside Glucose 215 mg/dL (74-106)
[2022-07-27 13:38] LABS: Pathologist Review Reviewed
--- NOTE | 2022-07-27 14:58 | WOUNDNOTE ---
wound photo: right plantar foot
--- NOTE | 2022-07-27 15:07 | WOUNDNOTE ---
wound photo: left plantar foot
[2022-07-27] MEDS: Dexmedetomidine 1,000 mcg in 0.9% NS 240 mL 45.1 MCG CONT INF (17:22)
[2022-07-27 17:50] LABS: Bedside Glucose 175 mg/dL (74-106)
--- NOTE | 2022-07-27 18:46 | PN_ITS ---
Subjective Subjective Patient was seen in bed with BiPAP. Nursing communicates that he has been confused and is very tired today. He did undergo dialysis this morning. Nursing reports no new events overnight. Objective Data Objective Data Vital Signs: Vital Signs Temp Pulse Resp BP Pulse Ox O2 Del Method O2 Flow Rate 99.1 F 57 L 27 H 108/57 L 99 Bi-pap 2 07/27/22 18:00 07/27/22 18:00 07/27/22 18:00 07/27/22 18:00 07/27/22 18:00 07/27/22 18:00 07/25/22 13:00 FiO2 30 07/27/22 18:00 Oxygen Flow Rate (L/min) 2 Oxygen Delivery Method Bi-pap Weight: 180.5 kg Body Mass Index (BMI) 55.0 Intake & Output: Intake and Output for Last 24 Hours 07/25/22 07/26/22 07/27/22 23:59 23:59 23:59 Intake Total 2153.19 / 2155.54 1317.66 / 1353.66 1200.00 / 1200.00 Output Total 35 / 95 60 / 60 Balance 2138.19 / 2140.54 1282.66 / 1258.66 1140.00 / 1140.00 Lab / Micro Data Result Diagrams: 07/27/22 03:10 07/27/22 03:10 Labs: Laboratory Results - last 24 hr 07/26/22 20:55: APTT 64.8 H 07/26/22 21:00: POC Glucose 245 H 07/27/22 03:10: WBC 12.1 H, RBC 4.79, Hgb 12.3 L, Hct 38.8 L, MCV 81.0, MCH 25.7 L, MCHC 31.7 L, RDW Std Deviation 46.2 H, RDW Coeff of Maria Fernanda 15.9 H, Plt Count 110 L, MPV 14.2 H, Neut % (Auto) Not Reportable, Absolute Neuts (auto) 8.0 H, Abs olute Lymphs (auto) 2.30, Total Counted 100, Neutrophils % (Manual) 66, Lymphocytes % (Manual) 19, Monocytes % (Manual) 5, Myelocytes % 10 H, Diff Path Review Reviewed, Atypical Lymphocytes 1+, Platelet Estimate SLT DEC, RBC Morphology NORM C+C, Anisocytosis 1+ 07/27/22 03:10: Sodium 137, Potassium 5.1, Chloride 102, Carbon Dioxide 20.0 L, Anion Gap 15, BUN 107 H*, Creatinine 10.70 H*, Estim Creat Clear Calc 8.34, Est GFR (MDRD) Af Amer 7 L, Est GFR (MDRD) Non-Af 5 L, BUN/Creatinine Ratio 10.0, Glucose 224 H, Calcium 7.3 L, Total Bilirubin 0.70, Direct Bilirubin 0.43 H, AST 4203 H, ALT 1074 H, Alkaline Phosphatase 71, Total Protein 6.7, Albumin 1.6 L, Globulin 5.1 H 07/27/22 03:10: APTT 56.6 H 07/27/22 03:10: Hemoglobin A1c 11.2 H 07/27/22 12:54: POC Glucose 215 H 07/27/22 17:19: POC Glucose 175 H Micro: Microbiology 07/22/22 16:39 Bone - Right Foot Gram Stain - Final 07/22/22 16:39 Bone - Right Foot Wound Culture - Final No growth aerobically. 07/22/22 16:39 Bone - Right Foot Anaerobic Culture - Final Anaerobic cocci 07/22/22 16:37 Wound Abcess - Right Foot Gram Stain - Final 07/22/22 16:37 Wound Abcess - Right Foot Wound Culture - Final Meth. resistant Staph. aureus 07/22/22 16:37 Wound Abcess - Right Foot Anaerobic Culture - Final Anaerobic cocci 07/22/22 16:35 Bone - Left Foot Gram Stain - Final 07/22/22 16:35 Bone - Left Foot Wound Culture - Final Meth. resistant Staph. aureus 07/22/22 16:35 Bone - Left Foot Anaerobic Culture - Final No anaerobic bacteria isolated. 07/22/22 16:32 Wound Abcess - Left Foot Gram Stain - Final 07/22/22 16:32 Wound Abcess - Left Foot Wound Culture - Final Meth. resistant Staph. aureus 07/22/22 16:32 Wound Abcess - Left Foot Anaerobic Culture - Final No anaerobic bacteria isolated. 07/25/22 09:50 Blood Culture (Wb) - Anticubital Right Blood Culture - Preliminary Staphylococcus aureus 07/24/22 10:40 Blood Culture (Wb) - Anticubital Right Blood Culture - Final Staphylococcus aureus 07/21/22 11:00 Wound - Left Foot Gram Stain - Final 07/21/22 11:00 Wound - Left Foot Wound Culture - Final Proteus mirabilis Kocuria tyraistinae 07/21/22 11:00 Wound - Left Foot Anaerobic Culture - Final Bacteroides thetaiotaomicron 07/21/22 09:30 Bone - Left Foot Gram Stain - Final 07/21/22 09:30 Bone - Left Foot Wound Culture - Final Proteus mirabilis Kocuria kristinae 07/21/22 09:30 Bone - Left Foot Anaerobic Culture - Final Bacteroides thetaiotaomicron Anaerobic cocci 07/23/22 10:50 Blood Culture (Wb) - Right Hand Blood Culture - Final Meth. resistant Staph. aureus 07/22/22 09:50 Blood Culture (Wb) - Right Hand Blood Culture - Final Staphylococcus aureus 07/20/22 14:55 Blood Culture (Wb) - Anticubital Right Bacteria Detection (PCR) - Final Meth. resistant Staph. aureus 07/20/22 14:55 Blood Culture (Wb) - Anticubital Right Blood Culture - Final Meth. resistant Staph. aureus 07/20/22 14:45 Blood Culture (Wb) - Left Hand Blood Culture - Final Staphylococcus aureus 07/20/22 18:10 Urine, Catheterized Urine Culture - Final Citrobacter freundii 07/20/22 19:47 Mucosa - Nasopharyngeal Respiratory Panel (PCR) - Final 07/20/22 18:10 Urine, Random Legionella Antigen - Final 07/20/22 18:10 Urine, Random Streptococcus pneumoniae Antigen (M - Final 07/20/22 13:55 Nasal Secretion SARS-CoV-2 & FLU Antigen (Rapid) - Final Physical Exam Narrative Patient responsive to painful stimuli today. NV status unchanged, improved edema on right. Derm: Full thickness wound to plantar midfoot, probes to bone, no acute signs of infection. Full thickness wound to plantar left forefoot x2. Plantar 2nd and 4th metatarsal heads, both probe to bone, some edema to 2nd digit. No residual purulence or other signs of acute infection. Const well nourished HEENT normocephalic Assessment & Plan Assessment/Plan (1) Non-pressure chronic ulcer of other part of right foot with fat layer exposed: PLAN: Exam performed. Persistent leukocytosis, patient now on vasopressors to assist BP managment, hospitalist suggest from hemodynamic shift. Patient with significant ZACARIAS w/ ATN, Cr>8 2/2 to sepsis vs vancomycin. Likely p rodrigo for dialysis. Duplex +DVT RLE - heparin Wounds clinically today demonstrate healthy bases with minimal signs of acute infection. Bone cultures to right side were negative, bone cultures on left side grew MRSA. Left foot appears to be source of infection. MRI did confirm osteomyelitis on left to 2nd digit, 2nd metatarsal and 3rd metatarsal with a large plantar abscess. Initially, Dr. Babin was hoping that decompression of the abscess with bone biopsy/culture in combination with IV antibiotics would significant improve infection status. Due to continued issues and confirmed osteomyelitis to multiple site in left foot, Dr. Babin and I would recommend transmetatarsal amputation on the left for definitive infection clearance - will discuss with hospitalist. Will likely await dialysis to see if improvement in mentation to discuss with patient. Vital signs stable at current. Patient on bipap and levophed. persistent leukocytosis noted at 12.1. Infectious diseases following. Patient receiving IV daptomycin/zosyn. Patient will require prolonged NWB to bilateral feet on discharge. Recommend SNF once stable. Will continue to follow closely. Please do not hesitate to call for any questions or concerns Rell Acevedo Jr. D.P.M. [facility] [phone] Note: [employer] speech recognition dumb waiter operator software was used to create portions of this document. Sound-alike and misspelled words, as well as other dumb waiter operator errors may be contained in the documentation. (2) Non-pressure chronic ulcer of other part of left foot with necrosis of bone: (3) Charcot's joint of right foot: (4) Type 2 diabetes mellitus with diabetic polyneuropathy: (5) Osteomyelitis of left foot:
[2022-07-27 22:25] LABS: Bedside Glucose 171 mg/dL (74-106)
[2022-07-27] MEDS: Dexmedetomidine 1,000 mcg in 0.9% NS 240 mL 54.1 MCG CONT INF (22:39)
[2022-07-28] VITALS (30 sets, daily range): BP systolic 91–122; BP diastolic 41–64; PULSE 56–69; RESP 12–35; TEMP 36.7–38.2; O2SAT 93–100
[2022-07-28] MEDS: HEPARIN/D5w 25,000 UNITS 25,000 UNITS/250 ML IV.SOLN. 22 UNITS CONT INF (00:35)
[2022-07-28] MEDS: Dexmedetomidine 1,000 mcg in 0.9% NS 240 mL 54.1 MCG CONT INF ×2 (03:32→08:07)
[2022-07-28 04:14] LABS: Hematocrit 37.3 % (40-54); Hemoglobin 11.9 g/dL (13.0-16.5); Mean Corp Hgb Conc 31.9 g/dL (32-36); Mean Corpuscular Volume 81.4 fL (80-94); Mean Platelet Vol. 12.9 fl (6.2-12.0); POSITIVE COUNT YES; POSITIVE MORPHOLOGY YES; Platelet Count 179 K/mm3 (150-450); RBC Distribution Width SD 46.5 fl (35.1-43.9); Red Blood Count 4.58 M/mm3 (4.6-6.2); White Blood Count 20.4 K/mm3 (4.4-11.0)
[2022-07-28 04:15] LABS: Differential Indicated MANUAL DIFF
[2022-07-28 04:23] LABS: Partial Thromboplast Time 48.1 Seconds (24.1-36.2)
[2022-07-28 04:38] LABS: ALB/GLOB Ratio 0.3 RATIO (0.9-2.4); AST(SGOT) 880 U/L (15-37); Alanine Aminotransfer ALT/SGPT 909 U/L (16-61); Albumin, Serum 1.6 g/dL (3.2-5.0); Alkaline Phosphatase 69 U/L (45-117); Anion Gap 15 (5-15); BUN 91 mg/dL (7-18); BUN/Creat Ratio 9.7 RATIO (10-20); Calcium,Total 6.9 mg/dL (8.5-10.1); Chloride 100 mmol/L (98-107); Creatinine, Serum 9.34 mg/dL (0.70-1.30); EST Glomerular Filtration Rate 6 mL/min (>60); Est Glom Filt Rate - Afr Amer 8 mL/min (>60); Estimated Creatinine Clearance 9.55 ml/min; Globulin 4.7 g/dL (2.2-4.2); Glucose 210 mg/dL (74-106); Phosphorus 7.2 mg/dL (2.5-4.9); Potassium 4.8 mmol/L (3.5-5.1); Protein, Total 6.3 g/dL (6.4-8.2); Sodium Level 137 mmol/L (136-145)
[2022-07-28 04:42] LABS: Basophil 1 % (0-1); Lymphocyte 16 % (19-41); Metamyelocyte 2 % (0-1); Monocyte 3 % (0-10); Myelocyte 9 % (0-0); Neutrophil-Band 4 % (0-5); Neutrophil-Segmented 64 % (47-70); Platelet Estimate ADEQUATE (ADEQ); Promyelocyte 1 % (0-0); Reactive Lymphocyte 1+; Total Cells Counted 100 (MANUAL DIFF)
[2022-07-28 04:43] LABS: Absolute Neutrophil Count 13.9 X10^3/uL (2.0-7.7); Neutrophil # 13.89 X10^3/uL (2.7-7.7); Red Cell Morphology NORM C+C NORMAL (NORM C&C)
[2022-07-28 04:44] LABS: Absolute Lymphocyte Count 3.27 X10^3/uL (0.83-4.51); Lymphocyte # 3.27 X10^3/ul (0.83-4.51)
[2022-07-28] MEDS: Heparin Injection (Vial) 5,000 UNIT/ML VIAL IV ×2 (05:16→11:39)
[2022-07-28] MEDS: Insulin Lispro 100 UNIT/ML INSULN.PEN SC ×4 (06:48→20:33)
--- NOTE | 2022-07-28 07:01 | PN.HOSP_ITS ---
Subjective Subjective Follow-up for septic shock/MRSA bacteremia/ZACARIAS/osteomyelitis: Patient was seen and examined.? He was agitated overnight. He is maxed out on Precedex. He ripped out his Faulkner catheter out this morning. Objective Data Objective Data Vital Signs: Vital Signs Temp Pulse Resp BP Pulse Ox O2 Del Method O2 Flow Rate 100.7 F H 61 31 H 113/45 L 98 Bi-pap 2 07/28/22 04:00 07/28/22 04:25 07/28/22 04:25 07/28/22 04:00 07/28/22 04:25 07/28/22 04:00 07/25/22 13:00 FiO2 30 07/28/22 04:25 Oxygen Flow Rate (L/min) 2 Oxygen Delivery Method Bi-pap Weight: 180.7 kg Body Mass Index (BMI) 55.0 Intake & Output: Intake and Output for Last 24 Hours 07/26/22 07/27/22 07/28/22 23:59 23:59 23:59 Intake Total 1317.66 / 1353.66 1468.94 / 1523.04 602.41 / 602.41 Output Total 35 / 95 65 / 75 10 / 10 Balance 1282.66 / 1258.66 1403.94 / 1448.04 592.41 / 592.41 Lab / Micro Data Result Diagrams: 07/28/22 04:06 07/28/22 04:06 Labs: Laboratory Results - last 24 hr 07/27/22 03:10: Diff Path Review Reviewed 07/27/22 03:10: Hemoglobin A1c 11.2 H 07/27/22 12:54: POC Glucose 215 H 07/27/22 17:19: POC Glucose 175 H 07/27/22 21:48: POC Glucose 171 H 07/28/22 04:06: WBC 20.4 H, RBC 4.58 L, Hgb 11.9 L, Hct 37.3 L, MCV 81.4, MCH 26.0 L, MCHC 31.9 L, RDW Std Deviation 46.5 H, RDW Coeff of Maria Fernanda 16.0 H, Plt Count 179, MPV 12.9 H, Neut % (Auto) Not Reportable, Absolute Neuts (auto) 13.9 H, Absolute Lymphs (auto) 3.27, Total Counted 100, Neutrophils % (Manual) 64, Band Neutrophils % 4, Lymphocytes % (Manual) 16 L, Monocytes % (Manual) 3, Basophils % (Manual) 1, Metamyelocytes % 2 H, Myelocytes % 9 H, Promyelocytes % 1 H, Diff Path Review May foll, Reactive Lymphocytes 1+, Platelet Estimate ADEQUATE, RBC Morphology NORM C+C 07/28/22 04:06: Sodium 137, Potassium 4.8, Chloride 100, Carbon Dioxide 22.0, Anion Gap 15, BUN 91 H, Creatinine 9.34 H*, Estim Creat Clear Calc 9.55, Est GFR (MDRD) Af Amer 8 L, Est GFR (MDRD) Non-Af 6 L, BUN/Creatinine Ratio 9.7 L, Glucose 210 H, Calcium 6.9 L, Phosphorus 7.2 H, Total Bilirubin 0.80, AST 880 H, ALT 909 H, Alkaline Phosphatase 69, Total Protein 6.3 L, Albumin 1.6 L, Globulin 4.7 H, Albumin/Globulin Ratio 0.3 L 07/28/22 04:06: APTT 48.1 H Micro: Microbiology 07/22/22 16:39 Bone - Right Foot Gram Stain - Final 07/22/22 16:39 Bone - Right Foot Wound Culture - Final No growth aerobically. 07/22/22 16:39 Bone - Right Foot Anaerobic Culture - Final Anaerobic cocci 07/22/22 16:37 Wound Abcess - Right Foot Gram Stain - Final 07/22/22 16:37 Wound Abcess - Right Foot Wound Culture - Final Meth. resistant Staph. aureus 07/22/22 16:37 Wound Abcess - Right Foot Anaerobic Culture - Final Anaerobic cocci 07/22/22 16:35 Bone - Left Foot Gram Stain - Final 07/22/22 16:35 Bone - Left Foot Wound Culture - Final Meth. resistant Staph. aureus 07/22/22 16:35 Bone - Left Foot Anaerobic Culture - Final No anaerobic bacteria isolated. 07/22/22 16:32 Wound Abcess - Left Foot Gram Stain - Final 07/22/22 16:32 Wound Abcess - Left Foot Wound Culture - Final Meth. resistant Staph. aureus 07/22/22 16:32 Wound Abcess - Left Foot Anaerobic Culture - Final No anaerobic bacteria isolated. 07/25/22 09:50 Blood Culture (Wb) - Anticubital Right Blood Culture - Preliminary Staphylococcus aureus 07/24/22 10:40 Blood Culture (Wb) - Anticubital Right Blood Culture - Final Staphylococcus aureus 07/21/22 11:00 Wound - Left Foot Gram Stain - Final 07/21/22 11:00 Wound - Left Foot Wound Culture - Final Proteus mirabilis Kocuria kristinae 07/21/22 11:00 Wound - Left Foot Anaerobic Culture - Final Bacteroides thetaiotaomicron 07/21/22 09:30 Bone - Left Foot Gram Stain - Final 07/21/22 09:30 Bone - Left Foot Wound Culture - Final Proteus mirabilis Kocuria kristinae 07/21/22 09:30 Bone - Left Foot Anaerobic Culture - Final Bacteroides thetaiotaomicron Anaerobic cocci 07/23/22 10:50 Blood Culture (Wb) - Right Hand Blood Culture - Final Meth. resistant Staph. aureus 07/22/22 09:50 Blood Culture (Wb) - Right Hand Blood Culture - Final Staphylococcus aureus 07/20/22 14:55 Blood Culture (Wb) - Anticubital Right Bacteria Detection (PCR) - Final Meth. resistant Staph. aureus 07/20/22 14:55 Blood Culture (Wb) - Anticubital Right Blood Culture - Final Meth. resistant Staph. aureus 07/20/22 14:45 Blood Culture (Wb) - Left Hand Blood Culture - Final Staphylococcus aureus 07/20/22 18:10 Urine, Catheterized Urine Culture - Final Citrobacter freundii 07/20/22 19:47 Mucosa - Nasopharyngeal Respiratory Panel (PCR) - Final 07/20/22 18:10 Urine, Random Legionella Antigen - Final 07/20/22 18:10 Urine, Random Streptococcus pneumoniae Antigen (M - Final 07/20/22 13:55 Nasal Secretion SARS-CoV-2 & FLU Antigen (Rapid) - Final Physical Exam Narrative Physical exam: General: Alert, sedated, Cooperative, morbidly obese, on room air HEENT: Atraumatic Oral: Moist Mucosa Neck: Supple Lungs: Diminished to auscultation Cardiovascular: HS I+II, regular, no murmurs Abdomen: Bowel Sounds Present, Soft, Non Tender Extremities: Jens wraps to both lower extremities, duskiness of toes Skin: No rashes, No breakdown Neurological: Grossly intact Psych/Mental Status: Appropriate Assessment & Plan Assessment/Plan (1) ZACARIAS (acute kidney injury): (2) Osteomyelitis of left foot: PLAN: Plan 1. Septic shock/MRSA bacteremia/acute on chronic infected MRSA ulcer osteomyelitis of the left foot (1st and 2nd digit, plantar second and fourth met atarsal heads)/large plantar abscess s/p I &D, Off pressors; still remains significantly sick He remains febrile, though WBC count is 20.4 Wound and blood cultures growing MRSA Off Levophed, continue on IV Zosyn and daptomycin Patient with underlying Charcot's arthropathy and chronic right foot ulcer status post TMA Podiatry, ID and lap polisher following; podiatry recommending transmetatarsal am putation of left foot 2. Acute combined respiratory failure, likely secondary to septic emboli, res olved Currently on room air Continue with antibiotics, breathing treatments Monument Erector following 3. Acute right popliteal, tibioperoneal trunk and gastrocnemius vein DVT, continue heparin drip 4. Acute kidney injury likely secondary to ATN from above Admitting creatinine was 1.29 Started on hemodialysis on 07/25/2021; dialyzed yesterday Nephrology following Trend labs 5. Acute metabolic encephalopathy secondary to above #1 and 4, persistent Maxed out on Precedex, check EKG Probable start of Seroquel 6. Hypertension, remains relatively hypotensive, not on any medications, continue to monitor blood pressures 7. Type II DM, HbA1c is 11.2, blood sugars are fairly controlled, Start Lantus 5 units BID, cntinue with medium to high dose insulin sliding scale with blood glucose checks 8. Rest of chronic medical conditions including GERD/KRYSTAL, complicates care Start famotidine IV 20mg daily 9. DVT PPx- On heparin drip Charges/Coding Visit Charges Inpatient E&M: 82556 Subs Hosp L3
[2022-07-28 07:10] LABS: Bedside Glucose 179 mg/dL (74-106)
--- NOTE | 2022-07-28 07:10 | PN.CC_ITS ---
Assessment & Plan Assessment/Plan (1) Sepsis: PLAN: Plan RECOMMENDATIONS: 1. Antimicrobials per infectious diseases. 2. Continue local wound care. Podiatry considering possible amputation 3. Discontinue Levophed 4. Dialysis support per nephrology recommendations. Volume removal if possible 5. Patient may require NG for nutrition 6. Attempt weaning of Precedex. IMPRESSIONS: 1. Septic shock Resolved. The patient presented to the hospital with sepsis due to osteomyelitis with secondary MRSA, among others, bacteremia and acute sepsis related organ dysfunction as evidenced by lactic acidemia and hemodynamic i nstability requiring vasopressor support. The patient remains on antimicrobials under the discretion of infectious diseases, but continues to have persistently positive blood cultures. The patient did ultimately undergo surgical debridement under the discretion of podiatry on July 22, but podiatry is suggesting that an amputation may be necessary. Echocardiogram did not reveal any evidence of valvular vegetations. Clinical suspicion for embolic spread to the lungs. 2. Acute kidney injury Most likely prerenal in etiology in the setting of #1, with gradual ev olution to ATN. Nephrology is following to assist with medical management. Renal ultrasound was unremarkable. Continue dialysis support per nephrology recommendations. Patient would benefit from volume removal. 3. Encephalopathy Most likely metabolic in etiology and related to underlying infection and renal dysfunction. The patient does have a tendency to retain CO2. Therefore, BiPAP therapy will be appropriate with naps and sleep. I would strongly advise against the use of morphine in a patient with underlying renal dysfunction. Out of bed as tolerated to possible. Attempt discontinuation of Precedex. 4. Chronic tobacco dependency without diagnosis of COPD Although the patient has a longstanding tobacco abuse history, he denied ever having been diagnosed with COPD. It is reasonable to continue as needed bronchodilator therapy. Recommend weaning supplemental oxygen as tolerated for saturations greater than 90%. Nicotine replacement therapy can be offered to the patient while admitted to the hospital. 5. History of osteomyelitis with Charcot arthropathy/hypertension/hyperlipidemia/morbid obesity/diabetes mellitus Complicates care, management, recovery and prognosis. Continue sliding scale insulin coverage. Addendum 2:04 PM: Patient with significant agitation through the day. Hemodialysis had to be cut short secondary to patient moving with decreased flows. Patient did have some bleeding noted from the hemodialysis site, but no movement of the catheter was noted. Patient also had removed his Faulkner traumatically leading to hematuri a. Patient was not tolerating BiPAP, but an ABG did not indicate the patient required intubation at this time. Patient was given some IV Haldol in addition to Precedex therapy. Subjective Subjective Patient did okay overnight. Patient has not required any Levophed despite hemodialysis with 1400 cc removed. Patient does remain on Precedex secondary to impulsivity and did have fever overnight. Patient remains stable on room air unless sleeping, but then is requiring only BiPAP for suspected sleep apnea. Objective Data Objective Data Vital Signs: Vital Signs Temp Pulse Resp BP Pulse Ox O2 Del Method O2 Flow Rate 38.2 C H 61 31 H 113/45 L 98 Bi-pap 2 07/28/22 04:00 07/28/22 04:25 07/28/22 04:25 07/28/22 04:00 07/28/22 04:25 07/28/22 04:00 07/25/22 13:00 FiO2 30 07/28/22 04:25 Oxygen Flow Rate (L/min) 2 Oxygen Delivery Method Bi-pap Weight: 180.7 kg Body Mass Index (BMI) 55.0 Intake & Output: Intake and Output for Last 24 Hours 07/26/22 07/27/22 07/28/22 23:59 23:59 23:59 Intake Total 1317.66 / 1353.66 1468.94 / 1523.04 710.61 / 710.61 Output Total 35 / 95 65 / 75 10 / 10 Balance 1282.66 / 1258.66 1403.94 / 1448.04 700.61 / 700.61 Lab / Micro Data Attestation: I reviewed the patient's lab results. Result Diagrams: 07/28/22 04:06 07/28/22 04:06 Labs: Laboratory Results - last 24 hr 07/27/22 03:10: Diff Path Review Reviewed 07/27/22 03:10: Hemoglobin A1c 11.2 H 07/27/22 12:54: POC Glucose 215 H 07/27/22 17:19: POC Glucose 175 H 07/27/22 21:48: POC Glucose 171 H 07/28/22 04:06: WBC 20.4 H, RBC 4.58 L, Hgb 11.9 L, Hct 37.3 L, MCV 81.4, MCH 26.0 L, MCHC 31.9 L, RDW Std Deviation 46.5 H, RDW Coeff of Maria Fernanda 16.0 H, Plt Count 179, MPV 12.9 H, Neut % (Auto) Not Reportable, Absolute Neuts (auto) 13.9 H, Absolute Lymphs (auto) 3.27, Total Counted 100, Neutrophils % (Manual) 64, Band Neutrophils % 4, Lymphocytes % (Manual) 16 L, Monocytes % (Manual) 3, Basophils % (Manual) 1, Metamyelocytes % 2 H, Myelocytes % 9 H, Promyelocytes % 1 H, Diff Path Review May foll, Reactive Lymphocytes 1+, Platelet Estimate ADEQUATE, RBC Morphology NORM C+C 07/28/22 04:06: Sodium 137, Potassium 4.8, Chloride 100, Carbon Dioxide 22.0, Anion Gap 15, BUN 91 H, Creatinine 9.34 H*, Estim Creat Clear Calc 9.55, Est GFR (MDRD) Af Amer 8 L, Est GFR (MDRD) Non-Af 6 L, BUN/Creatinine Ratio 9.7 L, Glucose 210 H, Calcium 6.9 L, Phosphorus 7.2 H, Total Bilirubin 0.80, AST 880 H, ALT 909 H, Alkaline Phosphatase 69, Total Protein 6.3 L, Albumin 1.6 L, Globulin 4.7 H, Albumin/Globulin Ratio 0.3 L 07/28/22 04:06: APTT 48.1 H Micro: Microbiology 07/22/22 16:39 Bone - Right Foot Gram Stain - Final 07/22/22 16:39 Bone - Right Foot Wound Culture - Final No growth aerobically. 07/22/22 16:39 Bone - Right Foot Anaerobic Culture - Final Anaerobic cocci 07/22/22 16:37 Wound Abcess - Right Foot Gram Stain - Final 07/22/22 16:37 Wound Abcess - Right Foot Wound Culture - Final Meth. resistant Staph. aureus 07/22/22 16:37 Wound Abcess - Right Foot Anaerobic Culture - Final Anaerobic cocci 07/22/22 16:35 Bone - Left Foot Gram Stain - Final 07/22/22 16:35 Bone - Left Foot Wound Culture - Final Meth. resistant Staph. aureus 07/22/22 16:35 Bone - Left Foot Anaerobic Culture - Final No anaerobic bacteria isolated. 07/22/22 16:32 Wound Abcess - Left Foot Gram Stain - Final 07/22/22 16:32 Wound Abcess - Left Foot Wound Culture - Final Meth. resistant Staph. aureus 07/22/22 16:32 Wound Abcess - Left Foot Anaerobic Culture - Final No anaerobic bacteria isolated. 07/25/22 09:50 Blood Culture (Wb) - Anticubital Right Blood Culture - Preliminary Staphylococcus aureus 07/24/22 10:40 Blood Culture (Wb) - Anticubital Right Blood Culture - Final Staphylococcus aureus 07/21/22 11:00 Wound - Left Foot Gram Stain - Final 07/21/22 11:00 Wound - Left Foot Wound Culture - Final Proteus mirabilis Kocuria kristinae 07/21/22 11:00 Wound - Left Foot Anaerobic Culture - Final Bacteroides thetaiotaomicron 07/21/22 09:30 Bone - Left Foot Gram Stain - Final 07/21/22 09:30 Bone - Left Foot Wound Culture - Final Proteus mirabilis Kocuria kristinae 07/21/22 09:30 Bone - Left Foot Anaerobic Culture - Final Bacteroides thetaiotaomicron Anaerobic cocci 07/23/22 10:50 Blood Culture (Wb) - Right Hand Blood Culture - Final Meth. resistant Staph. aureus 07/22/22 09:50 Blood Culture (Wb) - Right Hand Blood Culture - Final Staphylococcus aureus 07/20/22 14:55 Blood Culture (Wb) - Anticubital Right Bacteria Detection (PCR) - Final Meth. resistant Staph. aureus 07/20/22 14:55 Blood Culture (Wb) - Anticubital Right Blood Culture - Final Meth. resistant Staph. aureus 07/20/22 14:45 Blood Culture (Wb) - Left Hand Blood Culture - Final Staphylococcus aureus 07/20/22 18:10 Urine, Catheterized Urine Culture - Final Citrobacter freundii 07/20/22 19:47 Mucosa - Nasopharyngeal Respiratory Panel (PCR) - Final 07/20/22 18:10 Urine, Random Legionella Antigen - Final 07/20/22 18:10 Urine, Random Streptococcus pneumoniae Antigen (M - Final 07/20/22 13:55 Nasal Secretion SARS-CoV-2 & FLU Antigen (Rapid) - Final Physical Exam Const alert and no apparent distress Constitutional Narrative: The patient is impulsive. Patient does respond to painful stimuli. Orientation / Consciousness: confused Nutritional Appearance: morbidly obese HEENT normocephalic, head/scalp atraumatic and moist oral mucous membranes Eyes PERRL, EOMs intact bilaterally and conjunctivae normal Neck supple General: trachea midline and CVC in place Chest inspection of chest normal Resp Auscultation: diminished lung sounds; Negative for rales, rhonchi or wheezes Cardio regular rate, regular rhythm, S1 normal heart sound, S2 normal heart sound, no murmurs, no rub and no gallops GI normal to inspection, nondistended, normoactive bowel sounds Extremity Extremity Narrative: Wrapped lower extremities. General Extremity: edema; Negative for clubbing Skin General Skin Exam: venous stasis and dermatitis Neuro CN's II-XII intact bilaterally, moves all extremities and no focal motor de ficits Psych Activity / Motor Behavior: restless Mood & Affect: flat affect Charges/Coding Visit Charges Inpatient E&M: 98156 Subs Hosp L3
--- NOTE | 2022-07-28 09:09 | EKG12_ITS ---
Test Reason : QT CHANGE Blood Pressure : / mmHG Vent. Rate : 065 BPM Atrial Rate : 065 BPM P-R Int : 154 ms QRS Dur : 094 ms QT Int : 458 ms P-R-T Axes : 053 060 022 degrees QTc Int : 476 ms Normal sinus rhythm Normal ECG When compared with ECG of 20-JUL-2022 14:15, Premature ventricular complexes are no longer Present Vent. rate has decreased BY 80 BPM Confirmed by VALERIA STAFFORD, JOHN ([id number]), makeup editor YESENIA GONZALEZ ([id number]) on 07/30/2022 8:29:41 AM Referred By: BRITNEY Confirmed By:JOHN SHAW MD
--- NOTE | 2022-07-28 09:23 | CASEMGMT ---
ASHLEY PAZ received call from Tyson at [facility]. Per Tyson patient is active with them. ASHLEY PAZ updated Tyson regarding discharge plans for SNF. JACKSON will keep [facility] updated on patient's disposition at discharge.
[2022-07-28 09:27] LABS: Pathologist Review Reviewed
[2022-07-28] MEDS: Insulin Glargine-YFGN 100 UNIT/ML Pen SC ×2 (09:49→20:33)
[2022-07-28] MEDS: Famotidine 200 MG/20 ML MDV 20 MG in 0.9% Normal Saline (Pres. free 8 ML 300 MG IV (09:49)
--- NOTE | 2022-07-28 10:04 | PN.ID_ITS ---
Physical Exam Narrative Fever a little better overnight. Sleeping this AM on HD. Const no apparent distress Resp Auscultation: diminished lung sounds Cardio regular rate and regular rhythm GI soft to palpation, non-tender and non-distended Extremity General Extremity: edema Skin Skin Narrative: Feet wrapped, revieweed photos ID ID: Route of nutrition/ use of supplements: [] Nutritional Intake: [] IV Site: [] Faulkner Catheter: [] Assessment & Plan Assessment/Plan (1) Osteomyelitis: QUALIFIERS: Osteomyelitis type: other acute Osteomyelitis location: foot Laterality: right Qualified Code(s): M86.171 - Other acute osteomyelitis, right ankle and foot (2) Type 2 diabetes mellitus with diabetic polyneuropathy: QUALIFIERS: Diabetes mellitus termite inspector insulin use: unspecified [place] [facility] insulin use status Qualified Code(s): E11.42 - Type 2 diabetes mellitus with diabetic polyneuropathy (3) Sepsis: PLAN: sepsis due to MRSA bacteremia from L foot osteo with h/o DM neuropathy - on dapto/zosyn. Followed by podiatry. Taken to OR 07/22/[address] Babin for bilat feet I&D. Surg cx with MRSA, proteus, kocuria, anaerobes. Repeat bcx today and tomorrow. L TMA planned. Fever improved overnight. Will follow (4) MRSA bacteremia:
[2022-07-28 10:06] LABS: Bedside Glucose 211 mg/dL (74-106)
[2022-07-28 11:18] LABS: Partial Thromboplast Time 43.6 Seconds (24.1-36.2)
--- NOTE | 2022-07-28 11:29 | NURSING ---
diagrammer stopped dialysis at this time due to restlessness and agitation at this time. Site is also bleeding at this time. RN notified Dr Baca and at this time Dr Baca ordered a blood gas on the patient and IV Haldol for agitation.
[2022-07-28] MEDS: HEPARIN/D5w 25,000 UNITS 25,000 UNITS/250 ML IV.SOLN. 24 UNITS CONT INF (11:39)
[2022-07-28] MEDS: Haloperidol Lactate 5 MG/ML Vial IV (11:39)
[2022-07-28] MEDS: Dexmedetomidine 1,000 mcg in 0.9% NS 240 mL 67.6 MCG CONT INF ×2 (11:40→15:25)
[2022-07-28] MEDS: Menthol/Lanolin/Calamine/Znox 113 GM Tube 1 APPLIC TOPICAL ×3 (11:41→20:25)
[2022-07-28 11:45] LABS: Allen Test Positive; Base Excess -6 mmol/L (-2 to +2); Bicarbonate 18.6 mmol/L (22-26); Blood Gas Specimen Type ART; FI02 30; O2 Delivery Device Cannula; PEEP 12; PO2 112 mmHG (75-100); RR 12; SITE L Radial; SO2 98 % (95-99); Total Carbon Dioxide 20 mmol/L; Vt 500; pH 7.39 (7.35-7.45)
--- NOTE | 2022-07-28 12:01 | CASEMGMT ---
ASHLEY PAZ NOTE: Pt to have new OP HD set up for ZACARIAS. Per Dr Baca, he does not anticipate pt will be medically ready for discharge until Wednesday08/03/22 @ the very earliest. TC to pt's brother, Ed. Discussed OP HD choices in [facility] and [facility]. Ed states he does not have a preference and states is okay w/[facility]. New referral for OP HD set-up sent to [facility] via on-line portal @ this time. Per Ed, pt has 3 siblings--himself, sister-Shanae, and sister-Mallorie. Ed states he does not think pt has completed HCPOA papers, but that pt spoke w/Shanae last week and told Shanae that his wishes were for Shanae and Ed to be his decision makers. Adriano MTZ RN CM
[2022-07-28 12:45] LABS: Bedside Glucose 173 mg/dL (74-106)
--- NOTE | 2022-07-28 13:00 | DIALYSIS ---
Initiated HD treatment at 10:00 today, patient restless but manageable, on Precedex gtt and BiPAP support. Patient had repeated episodes of agitation (with attempts to site up in bed, thrashing head [id number]) interfering with HD treatment due to high AP or SURGICAL DENTAL ASSISTANT (RIGHT *IJ HD catheter susceptible to patient movements). Behaviors escalated to combative, with increase and steady bleeding from RIGHT IJ catheter insertion site. Returned blood to patient, stopped HD treatment. Care team notified [facility] folding rules printing machine operator. [facility] team and Planner Intern notified. Total 1.5 hours treatment time this morning (BV processed 21.1 Liters).
--- NOTE | 2022-07-28 14:26 | PCM.PN.REN ---
Subjective Subjective Following for dialysis dependent ZACARIAS. The patient is more confused today. I cannot obtain ROS because of confusion. The patient was pulling at dialysis catheter while he was on dialysis. Therefore, dialysis treatment was stopped early after 1-1/2-hour. Objective Data Objective Data Vital Signs: Vital Signs Temp Pulse Resp BP Pulse Ox O2 Del Method O2 Flow Rate 100.4 F H 63 28 H 119/49 L 96 Nasal Cannula 2 07/28/22 12:00 07/28/22 13:00 07/28/22 13:00 07/28/22 13:00 07/28/22 13:20 07/28/22 13:20 07/28/22 13:20 FiO2 30 07/28/22 12:00 Oxygen Flow Rate (L/min) 2 Oxygen Delivery Method Nasal Cannula Weight: 180.7 kg Body Mass Index (BMI) 55.0 Intake & Output: Intake and Output for Last 24 Hours 07/26/22 07/27/22 07/28/22 23:59 23:59 23:59 Intake Total 1317.66 / 1353.66 1468.94 / 1523.04 1554.72 / 1554.72 Output Total 35 / 95 65 / 75 10 / 10 Balance 1282.66 / 1258.66 1403.94 / 1448.04 1544.72 / 1544.72 Lab / Micro Data Result Diagrams: 07/28/22 04:06 07/28/22 04:06 Labs: Laboratory Results - last 24 hr 07/26/22 06:00: Diff Path Review Reviewed 07/27/22 17:19: POC Glucose 175 H 07/27/22 21:48: POC Glucose 171 H 07/28/22 04:06: WBC 20.4 H, RBC 4.58 L, Hgb 11.9 L, Hct 37.3 L, MCV 81.4, MCH 26.0 L, MCHC 31.9 L, RDW Std Deviation 46.5 H, RDW Coeff of Maria Fernanda 16.0 H, Plt Count 179, MPV 12.9 H, Neut % (Auto) Not Reportable, Absolute Neuts (auto) 13.9 H, Absolute Lymphs (auto) 3.27, Total Counted 100, Neutrophils % (Manual) 64, Band Neutrophils % 4, Lymphocytes % (Manual) 16 L, Monocytes % (Manual) 3, Basophils % (Manual) 1, Metamyelocytes % 2 H, Myelocytes % 9 H, Promyelocytes % 1 H, Diff Path Review May foll, Reactive Lymphocytes 1+, Platelet Estimate ADEQUATE, RBC Morphology NORM C+C 07/28/22 04:06: Sodium 137, Potassium 4.8, Chloride 100, Carbon Dioxide 22.0, Anion Gap 15, BUN 91 H, Creatinine 9.34 H*, Estim Creat Clear Calc 9.55, Est GFR (MDRD) Af Amer 8 L, Est GFR (MDRD) Non-Af 6 L, BUN/Creatinine Ratio 9.7 L, Glucose 210 H, Calcium 6.9 L, Phosphorus 7.2 H, Total Bilirubin 0.80, AST 880 H, ALT 909 H, Alkaline Phosphatase 69, Total Protein 6.3 L, Albumin 1.6 L, Globulin 4.7 H, Albumin/Globulin Ratio 0.3 L 07/28/22 04:06: APTT 48.1 H 07/28/22 06:47: POC Glucose 179 H 07/28/22 09:44: POC Glucose 211 H 07/28/22 10:52: APTT 43.6 H 07/28/22 12:22: POC Glucose 173 H Micro: Microbiology 07/22/22 16:39 Bone - Right Foot Gram Stain - Final 07/22/22 16:39 Bone - Right Foot Wound Culture - Final No growth aerobically. 07/22/22 16:39 Bone - Right Foot Anaerobic Culture - Final Anaerobic cocci 07/22/22 16:37 Wound Abcess - Right Foot Gram Stain - Final 07/22/22 16:37 Wound Abcess - Right Foot Wound Culture - Final Meth. resistant Staph. aureus 07/22/22 16:37 Wound Abcess - Right Foot Anaerobic Culture - Final Anaerobic cocci 07/22/22 16:35 Bone - Left Foot Gram Stain - Final 07/22/22 16:35 Bone - Left Foot Wound Culture - Final Meth. resistant Staph. aureus 07/22/22 16:35 Bone - Left Foot Anaerobic Culture - Final No anaerobic bacteria isolated. 07/22/22 16:32 Wound Abcess - Left Foot Gram Stain - Final 07/22/22 16:32 Wound Abcess - Left Foot Wound Culture - Final Meth. resistant Staph. aureus 07/22/22 16:32 Wound Abcess - Left Foot Anaerobic Culture - Final No anaerobic bacteria isolated. 07/25/22 09:50 Blood Culture (Wb) - Anticubital Right Blood Culture - Preliminary Staphylococcus aureus 07/24/22 10:40 Blood Culture (Wb) - Anticubital Right Blood Culture - Final Staphylococcus aureus 07/21/22 11:00 Wound - Left Foot Gram Stain - Final 07/21/22 11:00 Wound - Left Foot Wound Culture - Final Proteus mirabilis Kocuria kristinae 07/21/22 11:00 Wound - Left Foot Anaerobic Culture - Final Bacteroides thetaiotaomicron 07/21/22 09:30 Bone - Left Foot Gram Stain - Final 07/21/22 09:30 Bone - Left Foot Wound Culture - Final Proteus mirabilis Kocuria kristinae 07/21/22 09:30 Bone - Left Foot Anaerobic Culture - Final Bacteroides thetaiotaomicron Anaerobic cocci 07/23/22 10:50 Blood Culture (Wb) - Right Hand Blood Culture - Final Meth. resistant Staph. aureus 07/22/22 09:50 Blood Culture (Wb) - Right Hand Blood Culture - Final Staphylococcus aureus 07/20/22 14:55 Blood Culture (Wb) - Anticubital Right Bacteria Detection (PCR) - Final Meth. resistant Staph. aureus 07/20/22 14:55 Blood Culture (Wb) - Anticubital Right Blood Culture - Final Meth. resistant Staph. aureus 07/20/22 14:45 Blood Culture (Wb) - Left Hand Blood Culture - Final Staphylococcus aureus 07/20/22 18:10 Urine, Catheterized Urine Culture - Final Citrobacter freundii 07/20/22 19:47 Mucosa - Nasopharyngeal Respiratory Panel (PCR) - Final 07/20/22 18:10 Urine, Random Legionella Antigen - Final 07/20/22 18:10 Urine, Random Streptococcus pneumoniae Antigen (M - Final 07/20/22 13:55 Nasal Secretion SARS-CoV-2 & FLU Antigen (Rapid) - Final ABG Data ABG results: ABG 07/28/22 11:39 Specimen Type ART Sample Site L Radial pH 7.39 Bicarbonate Actual 18.6 L Total CO2 20 Base Excess -6 L O2 Saturation 98 O2 % 30 ABG pCO2 31.0 L ABG pO2 112 H Jv Test Positive Respiration Rate 12 O2 Delivery Device Cannula Tidal Volume 500 POC PEEP 12 Physical Exam Narrative General: Agitated, confused and not following command. HEENT: Normocephalic. Heart: Normal S1, S2. No R/M/G. Lungs: Diminished lung sounds; Negative for rales, rhonchi or wheezes. Abdomen: Normal bowel sounds, soft, nontender. Extremity: 1+ lower extremity edema. 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 The patient is being treated for MRSA bacteremia with septic emboli to the lungs along with UTI.? Nephrology is asked to see the patient because of ZACARIAS. Acute kidney injury. Baseline serum creatinine appears to be around 1.10 mg/dL. ZACARIAS is likely due to hemodynamic changes causing prerenal azotemia has likely evolved to ischemic ATN.? This is related to severe sepsis and recent fluctuation in BP in the patient with chronic hypertension.? The patient required IV vasopressor for around 24 hours on 07/25/2022 as well. Another possible cause of ZACARIAS would be nephrotoxic ATN due to IV vancomycin.? The chance of nephrotoxic ATN from vancomycin increases when it is combined with piperacillin/tazobactam. Although infection related acute glomerulonephritis is possible, it is less likely as urinalysis did not show significant RBCs.? Renal ultrasound did not show any obstruction. I have stopped lisinopril altogether for now to avoid confusion. Vancomycin has been stopped and he is now on daptomycin instead. The patient was started on dialysis on 07/25/2022 because of worsening azotemia and confusion. Attempted to dialyze the patient today because of confusion to exclude uremia as the cause. However, the patient was too agitated to continue dialysis today. We will try dialyzing the patient again tomorrow. The patient is not hyperkalemic and acidosis has improved. Therefore, there is no urgency to complete dialysis today. Current medications are reviewed. Hyponatremia. The patient has mild hyponatremia which has improved.? Serum sodium was 127 mmol/L on 07/20/2022. Serum sodium has improved to 137 mmol/L today. Will continue to monitor serum sodium. Severe sepsis?secondary to MRSA bloodstream infection with septic emboli to the lungs and Citrobacter freundii UTI. Antimicrobial treatment as per infectious disease service.
[2022-07-28] MEDS: Heparin 10,000 UNITS/10 ML Vial 2600 UNITS IV (14:46)
[2022-07-28 16:50] LABS: Bedside Glucose 195 mg/dL (74-106)
[2022-07-28] MEDS: QUEtiapine 25 MG Tablet 50 MG PO ×2 (18:24→23:21)
[2022-07-28] MEDS: Dexmedetomidine 1,000 mcg in 0.9% NS 240 mL 63.1 MCG CONT INF (19:30)
[2022-07-28 21:01] LABS: Bedside Glucose 177 mg/dL (74-106)
[2022-07-29] VITALS (38 sets, daily range): BP systolic 58–127; BP diastolic 30–98; PULSE 56–101; RESP 13–31; TEMP 35.8–37.7; O2SAT 93–100
[2022-07-29] MEDS: Dexmedetomidine 1,000 mcg in 0.9% NS 240 mL 36 MCG CONT INF (01:00)
--- NOTE | 2022-07-29 04:30 | NURSING ---
Precedex stopped due to low BP. MD notified. Diaphoresis noted. 500ml saline bolus ordered and given. Difficult to assess blood pressure due to pt uncooperative and anatomy. Will continue to monitor.
[2022-07-29 04:58] LABS: Hematocrit 33.3 % (40-54); Hemoglobin 10.4 g/dL (13.0-16.5); Mean Corp Hgb Conc 31.2 g/dL (32-36); Mean Corpuscular Volume 83.3 fL (80-94); POSITIVE COUNT YES; POSITIVE MORPHOLOGY YES; Platelet Count 168 K/mm3 (150-450); RBC Distribution Width CV 16.3 % (11.6-14.6); RBC Distribution Width SD 48.6 fl (35.1-43.9); White Blood Count 23.7 K/mm3 (4.4-11.0)
[2022-07-29 05:08] LABS: Differential Indicated MANUAL DIFF
[2022-07-29 05:19] LABS: Lymphocyte 4 % (19-41); Metamyelocyte 7 % (0-1); Monocyte 1 % (0-10); Myelocyte 7 % (0-0); Neutrophil-Segmented 81 % (47-70); Platelet Estimate ADEQUATE (ADEQ); Total Cells Counted 100 (MANUAL DIFF)
[2022-07-29 05:20] LABS: Absolute Lymphocyte Count 0.95 X10^3/uL (0.83-4.51); Absolute Neutrophil Count 19.2 X10^3/uL (2.0-7.7); Lymphocyte # 0.95 X10^3/ul (0.83-4.51); Neutrophil # 19.16 X10^3/uL (2.7-7.7); Red Cell Morphology NORM C+C NORMAL (NORM C&C)
[2022-07-29 05:32] LABS: ALB/GLOB Ratio 0.4 RATIO (0.9-2.4); AST(SGOT) 290 U/L (15-37); Alanine Aminotransfer ALT/SGPT 521 U/L (16-61); Albumin, Serum 1.4 g/dL (3.2-5.0); Alkaline Phosphatase 65 U/L (45-117); Anion Gap 16 (5-15); BUN 93 mg/dL (7-18); BUN/Creat Ratio 10.3 RATIO (10-20); Calcium,Total 5.8 mg/dL (8.5-10.1); Chloride 106 mmol/L (98-107); Creatinine, Serum 9.03 mg/dL (0.70-1.30); EST Glomerular Filtration Rate 7 mL/min (>60); Est Glom Filt Rate - Afr Amer 8 mL/min (>60); Estimated Creatinine Clearance 9.88 ml/min; Globulin 3.8 g/dL (2.2-4.2); Glucose 210 mg/dL (74-106); Phosphorus 8.2 mg/dL (2.5-4.9); Potassium 4.5 mmol/L (3.5-5.1); Protein, Total 5.2 g/dL (6.4-8.2); Sodium Level 141 mmol/L (136-145)
--- NOTE | 2022-07-29 05:55 | EKG12_ITS ---
Test Reason : AM EKG Blood Pressure : / mmHG Vent. Rate : 063 BPM Atrial Rate : 063 BPM P-R Int : 150 ms QRS Dur : 096 ms QT Int : 500 ms P-R-T Axes : 048 065 -02 degrees QTc Int : 511 ms Normal sinus rhythm ST & T wave abnormality, consider anterior ischemia Prolonged QT Abnormal ECG When compared with ECG of 28-JUL-2022 09:22, MANUAL COMPARISON REQUIRED, DATA IS UNCONFIRMED Confirmed by VALERIA STAFFORD, JOHN ([id number]), assistant editor YESENIA GONZALEZ ([id number]) on 07/30/2022 8:28:58 AM Referred By: BRITNEY Confirmed By:JOHN SHAW MD
[2022-07-29] MEDS: Insulin Lispro 100 UNIT/ML INSULN.PEN SC ×4 (06:45→20:59)
--- NOTE | 2022-07-29 07:03 | PN.CC_ITS ---
Assessment & Plan Assessment/Plan (1) Sepsis: PLAN: Plan RECOMMENDATIONS: 1. Antimicrobials per infectious diseases. 2. Continue local wound care. Podiatry considering possible amputation 3. Reinitiate Levophed. Obtain limited echocardiogram 4. Dialysis support per nephrology recommendations. Volume removal if possible 5. Patient may require NG for nutrition 6. Attempt weaning off Precedex. IMPRESSIONS: 1. Septic shock The patient presented to the hospital with sepsis due to osteomyelitis with secondary MRSA, among others, bacteremia and acute sepsis related organ dysfunction as evidenced by lactic acidemia and hemodynamic instability requiring vasopressor support. The patient remains on antimicrobials under the discretion of infectious diseases, but continues to have persistently positive blood cultures. The patient did ultimately undergo surgical debridement under the discretion of podiatry on July 22, but podiatry is suggesting that an amputation may be necessary. Echocardiogram did not reveal any valvular vegetations initially, but given decrease in blood pressure, persistent positive blood cultures and new murmur there is concern that this may have developed. Clinical suspicion for embolic spread to the lungs. 2. Acute kidney injury Most likely prerenal in etiology in the setting of #1, with gradual evolution to ATN. Nephrology is following to assist with medical management. Renal ultrasound was unremarkable. Continue dialysis support per nephrology recommendations. Patient would benefit from volume removal. 3. Encephalopathy Most likely metabolic in etiology and related to underlying infection and renal dysfunction. The patient does have a tendency to retain CO2. Therefore, BiPAP therapy will be appropriate with naps and sleep. I would strongly advise against the use of morphine in a patient with underlying renal dysfunction. Out of bed as tolerated to possible. Attempt discontinuation of Precedex. 4. Chronic tobacco dependency without diagnosis of COPD Although the patient has a longstanding tobacco abuse history, he denied ever having been diagnosed with COPD. It is reasonable to continue as needed bronchodilator therapy. Recommend weaning supplemental oxygen as tolerated for saturations greater than 90%. Nicotine replacement therapy can be offered to th e patient while admitted to the hospital. 5. History of osteomyelitis with Charcot arthropathy/hypertension/hyperlipidemia/morbid obesity/diabetes mellitus Complicates care, management, recovery and prognosis. Continue sliding scale insulin coverage. TIME: 32 minutes of critical care time spent addressing patient's hypotension, sepsis, acute kidney injury, review of all data and collaboration with care team Subjective Subjective Patient did okay overnight. Patient continues to have periods of yelling out and impulsivity. Around midnight, patient started to develop hypotension. Patient was given a 500 cc bolus without improvement. Patient ultimately had to be started on Levophed this morning. Patient is not reporting any pain at this time. Patient reportedly had a period of lucidity at approximately 6 PM last night and admitted to active methamphetamine and alcohol abuse as an outpatient. Objective Data Objective Data Vital Signs: Vital Signs Temp Pulse Resp BP Pulse Ox O2 Del Method O2 Flow Rate 36.2 C L 63 14 73/37 L 97 Nasal Cannula 2 07/29/22 04:00 07/29/22 06:30 07/29/22 06:30 07/29/22 06:30 07/29/22 06:30 07/29/22 06:30 07/29/22 06:30 FiO2 2 07/29/22 06:00 Oxygen Flow Rate (L/min) 2 Oxygen Delivery Method Nasal Cannula Weight: 182.7 kg Body Mass Index (BMI) 55.0 Intake & Output: Intake and Output for Last 24 Hours 07/27/22 07/28/22 07/29/22 23:59 23:59 23:59 Intake Total 1468.94 / 1523.04 2416.15 / 2425.15 699.44 / 699.44 Output Total 65 / 75 10 / 10 0 / 0 Balance 1403.94 / 1448.04 2406.15 / 2415.15 699.44 / 699.44 Lab / Micro Data Attestation: I reviewed the patient's lab results. Result Diagrams: 07/29/22 04:40 07/29/22 04:40 Labs: Laboratory Results - last 24 hr 07/26/22 06:00: Diff Path Review Reviewed 07/28/22 04:06: Sodium 137, Potassium 4.8, Chloride 100, Carbon Dioxide 22.0, Anion Gap 15, BUN 91 H, Creatinine 9.34 H*, Estim Creat Clear Calc 9.55, Est GFR (MDRD) Af Amer 8 L, Est GFR (MDRD) Non-Af 6 L, BUN/Creatinine Ratio 9.7 L, Glucose 210 H, Calcium 6.9 L, Phosphorus 7.2 H, Total Bilirubin 0.80, AST 880 H, ALT 909 H, Alkaline Phosphatase 69, Total Protein 6.3 L, Albumin 1.6 L, Globulin 4.7 H, Albumin/Globulin Ratio 0.3 L 07/28/22 06:47: POC Glucose 179 H 07/28/22 09:44: POC Glucose 211 H 07/28/22 10:52: APTT 43.6 H 07/28/22 12:22: POC Glucose 173 H 07/28/22 16:31: POC Glucose 195 H 07/28/22 20:30: POC Glucose 177 H 07/29/22 04:40: WBC 23.7 H, RBC 4.00 L, Hgb 10.4 L, Hct 33.3 L, MCV 83.3, MCH 26.0 L, MCHC 31.2 L, RDW Std Deviation 48.6 H, RDW Coeff of Maria Fernanda 16.3 H, Plt Count 168, MPV 13.0 H, Neut % (Auto) Not Reportable, Absolute Neuts (auto) 19.2 H, Absolute Lymphs (auto) 0.95, Total Counted 100, Neutrophils % (Manual) 81 H, Lymphocytes % (Manual) 4 L, Monocytes % (Manual) 1, Metamyelocytes % 7 H, Myelocytes % 7 H, Diff Path Review November, Platelet Estimate ADEQUATE, RBC Morphology NORM C+C 07/29/22 04:40: Sodium 141, Potassium 4.5, Chloride 106, Carbon Dioxide 19.0 L, Anion Gap 16 H, BUN 93 H, Creatinine 9.03 H*, Estim Creat Clear Calc 9.88, Est GFR (MDRD) Af Amer 8 L, Est GFR (MDRD) Non-Af 7 L, BUN/Creatinine Ratio 10.3, Glucose 210 H, Calcium 5.8 L*, Phosphorus 8.2 H, Total Bilirubin 0.80, AST 290 H , ALT 521 H, Alkaline Phosphatase 65, Total Protein 5.2 L, Albumin 1.4 L, Globulin 3.8, Albumin/Globulin Ratio 0.4 L Micro: Microbiology 07/28/22 10:50 Blood Culture (Wb) - Pic Blood Culture - Preliminary 07/22/22 16:39 Bone - Right Foot Gram Stain - Final 07/22/22 16:39 Bone - Right Foot Wound Culture - Final No growth aerobically. 07/22/22 16:39 Bone - Right Foot Anaerobic Culture - Final Anaerobic cocci 07/22/22 16:37 Wound Abcess - Right Foot Gram Stain - Final 07/22/22 16:37 Wound Abcess - Right Foot Wound Culture - Final Meth. resistant Staph. aureus 07/22/22 16:37 Wound Abcess - Right Foot Anaerobic Culture - Final Anaerobic cocci 07/22/22 16:35 Bone - Left Foot Gram Stain - Final 07/22/22 16:35 Bone - Left Foot Wound Culture - Final Meth. resistant Staph. aureus 07/22/22 16:35 Bone - Left Foot Anaerobic Culture - Final No anaerobic bacteria isolated. 07/22/22 16:32 Wound Abcess - Left Foot Gram Stain - Final 07/22/22 16:32 Wound Abcess - Left Foot Wound Culture - Final Meth. resistant Staph. aureus 07/22/22 16:32 Wound Abcess - Left Foot Anaerobic Culture - Final No anaerobic bacteria isolated. 07/25/22 09:50 Blood Culture (Wb) - Anticubital Right Blood Culture - Preliminary Staphylococcus aureus 07/24/22 10:40 Blood Culture (Wb) - Anticubital Right Blood Culture - Final Staphylococcus aureus 07/21/22 11:00 Wound - Left Foot Gram Stain - Final 07/21/22 11:00 Wound - Left Foot Wound Culture - Final Proteus mirabilis Kocuria kristinae 07/21/22 11:00 Wound - Left Foot Anaerobic Culture - Final Bacteroides thetaiotaomicron 07/21/22 09:30 Bone - Left Foot Gram Stain - Final 07/21/22 09:30 Bone - Left Foot Wound Culture - Final Proteus mirabilis Kocuria kristinae 07/21/22 09:30 Bone - Left Foot Anaerobic Culture - Final Bacteroides thetaiotaomicron Anaerobic cocci 07/23/22 10:50 Blood Culture (Wb) - Right Hand Blood Culture - Final Meth. resistant Staph. aureus 07/22/22 09:50 Blood Culture (Wb) - Right Hand Blood Culture - Final Staphylococcus aureus 07/20/22 14:55 Blood Culture (Wb) - Anticubital Right Bacteria Detection (PCR) - Final Meth. resistant Staph. aureus 07/20/22 14:55 Blood Culture (Wb) - Anticubital Right Blood Culture - Final Meth. resistant Staph. aureus 07/20/22 14:45 Blood Culture (Wb) - Left Hand Blood Culture - Final Staphylococcus aureus 07/20/22 18:10 Urine, Catheterized Urine Culture - Final Citrobacter freundii 07/20/22 19:47 Mucosa - Nasopharyngeal Respiratory Panel (PCR) - Final 07/20/22 18:10 Urine, Random Legionella Antigen - Final 07/20/22 18:10 Urine, Random Streptococcus pneumoniae Antigen (M - Final 07/20/22 13:55 Nasal Secretion SARS-CoV-2 & FLU Antigen (Rapid) - Final ABG Data ABG results: ABG 07/28/22 11:39 Specimen Type ART Sample Site L Radial pH 7.39 Bicarbonate Actual 18.6 L Total CO2 20 Base Excess -6 L O2 Saturation 98 O2 % 30 ABG pCO2 31.0 L ABG pO2 112 H Jv Test Positive Respiration Rate 12 O2 Delivery Device Cannula Tidal Volume 500 POC PEEP 12 Physical Exam Const alert and no apparent distress Constitutional Narrative: The patient is impulsive. Interacts intermittently to follow commands Orientation / Consciousness: confused Nutritional Appearance: morbidly obese HEENT normocephalic, head/scalp atraumatic and moist oral mucous membranes Eyes PERRL, EOMs intact bilaterally and conjunctivae normal Neck supple General: trachea midline and CVC in place Chest inspection of chest normal Resp Auscultation: diminished lung sounds; Negative for rales, rhonchi or wheezes Cardio regular rate, regular rhythm, S1 normal heart sound, S2 normal heart sound, no rub and no gallops Heart Sounds: murmur systolic II/ soft early left sternal border GI normal to inspection, nondistended, normoactive bowel sounds Extremity Extremity Narrative: Wrapped lower extremities. General Extremity: edema; Negative for clubbing Skin General Skin Exam: venous stasis and dermatitis Neuro CN's II-XII intact bilaterally, moves all extremities and no focal motor deficits Psych Activity / Motor Behavior: restless Mood & Affect: flat affect Charges/Coding Procedures Hospitalists Procedures: 13856 Critial Care 1st Hr
--- NOTE | 2022-07-29 07:18 | PCM.PN.HOSP ---
Subjective Subjective Follow-up for septic shock/MRSA bacteremia/ZACARIAS/osteomyelitis: Patient was seen and examined.? Patient was hypotensive yesterday. He remains agitated. 2D-ECHO showed aortic valve vegetation. Objective Data Objective Data Vital Signs: Vital Signs Temp Pulse Resp BP Pulse Ox O2 Del Method O2 Flow Rate 97.2 F L 63 14 73/37 L 97 Nasal Cannula 2 07/29/22 04:00 07/29/22 06:30 07/29/22 06:30 07/29/22 06:30 07/29/22 06:30 07/29/22 06:30 07/29/22 06:30 FiO2 2 07/29/22 06:00 Oxygen Flow Rate (L/min) 2 Oxygen Delivery Method Nasal Cannula Weight: 182.7 kg Body Mass Index (BMI) 55.0 Intake & Output: Intake and Output for Last 24 Hours 07/27/22 07/28/22 07/29/22 23:59 23:59 23:59 Intake Total 1468.94 / 1523.04 2416.15 / 2425.15 699.44 / 699.44 Output Total 65 / 75 10 / 10 0 / 0 Balance 1403.94 / 1448.04 2406.15 / 2415.15 699.44 / 699.44 Lab / Micro Data Result Diagrams: 07/29/22 04:40 07/29/22 04:40 Labs: Laboratory Results - last 24 hr 07/26/22 06:00: Diff Path Review Reviewed 07/28/22 04:06: Sodium 137, Potassium 4.8, Chloride 100, Carbon Dioxide 22.0, Anion Gap 15, BUN 91 H, Creatinine 9.34 H*, Estim Creat Clear Calc 9.55, Est GFR (MDRD) Af Amer 8 L, Est GFR (MDRD) Non-Af 6 L, BUN/Creatinine Ratio 9.7 L, Glucose 210 H, Calcium 6.9 L, Phosphorus 7.2 H, Total Bilirubin 0.80, AST 880 H, ALT 909 H, Alkaline Phosphatase 69, Total Protein 6.3 L, Albumin 1.6 L, Globulin 4.7 H, Albumin/Globulin Ratio 0.3 L 07/28/22 09:44: POC Glucose 211 H 07/28/22 10:52: APTT 43.6 H 07/28/22 12:22: POC Glucose 173 H 07/28/22 16:31: POC Glucose 195 H 07/28/22 20:30: POC Glucose 177 H 07/29/22 04:40: WBC 23.7 H, RBC 4.00 L, Hgb 10.4 L, Hct 33.3 L, MCV 83.3, MCH 26.0 L, MCHC 31.2 L, RDW Std Deviation 48.6 H, RDW Coeff of Maria Fernanda 16.3 H, Plt Count 168, MPV 13.0 H, Neut % (Auto) Not Reportable, Absolute Neuts (auto) 19.2 H, Absolute Lymphs (auto) 0.95, Total Counted 100, Neutrophils % (Manual) 81 H, Lymphocytes % (Manual) 4 L, Monocytes % (Manual) 1, Metamyelocytes % 7 H, Myelocytes % 7 H, Diff Path Review November, Platelet Estimate ADEQUATE, RBC Morphology NORM C+C 07/29/22 04:40: Sodium 141, Potassium 4.5, Chloride 106, Carbon Dioxide 19.0 L, Anion Gap 16 H, BUN 93 H, Creatinine 9.03 H*, Estim Creat Clear Calc 9.88, Est GFR (MDRD) Af Amer 8 L, Est GFR (MDRD) Non-Af 7 L, BUN/Creatinine Ratio 10.3, Glucose 210 H, Calcium 5.8 L*, Phosphorus 8.2 H, Total Bilirubin 0.80, AST 290 H, ALT 521 H, Alkaline Phosphatase 65, Total Protein 5.2 L, Albumin 1.4 L, Globulin 3.8, Albumin/Globulin Ratio 0.4 L Micro: Microbiology 07/28/22 10:50 Blood Culture (Wb) - Pic Blood Culture - Preliminary 07/22/22 16:39 Bone - Right Foot Gram Stain - Final 07/22/22 16:39 Bone - Right Foot Wound Culture - Final No growth aerobically. 07/22/22 16:39 Bone - Right Foot Anaerobic Culture - Final Anaerobic cocci 07/22/22 16:37 Wound Abcess - Right Foot Gram Stain - Final 07/22/22 16:37 Wound Abcess - Right Foot Wound Culture - Final Meth. resistant Staph. aureus 07/22/22 16:37 Wound Abcess - Right Foot Anaerobic Culture - Final Anaerobic cocci 07/22/22 16:35 Bone - Left Foot Gram Stain - Final 07/22/22 16:35 Bone - Left Foot Wound Culture - Final Meth. resistant Staph. aureus 07/22/22 16:35 Bone - Left Foot Anaerobic Culture - Final No anaerobic bacteria isolated. 07/22/22 16:32 Wound Abcess - Left Foot Gram Stain - Final 07/22/22 16:32 Wound Abcess - Left Foot Wound Culture - Final Meth. resistant Staph. aureus 07/22/22 16:32 Wound Abcess - Left Foot Anaerobic Culture - Final No anaerobic bacteria isolated. 07/25/22 09:50 Blood Culture (Wb) - Anticubital Right Blood Culture - Preliminary Staphylococcus aureus 07/24/22 10:40 Blood Culture (Wb) - Anticubital Right Blood Culture - Final Staphylococcus aureus 07/21/22 11:00 Wound - Left Foot Gram Stain - Final 07/21/22 11:00 Wound - Left Foot Wound Culture - Final Proteus mirabilis Kocuria kristinae 07/21/22 11:00 Wound - Left Foot Anaerobic Culture - Final Bacteroides thetaiotaomicron 07/21/22 09:30 Bone - Left Foot Gram Stain - Final 07/21/22 09:30 Bone - Left Foot Wound Culture - Final Proteus mirabilis Kocuria kristinae 07/21/22 09:30 Bone - Left Foot Anaerobic Culture - Final Bacteroides thetaiotaomicron Anaerobic cocci 07/23/22 10:50 Blood Culture (Wb) - Right Hand Blood Culture - Final Meth. resistant Staph. aureus 07/22/22 09:50 Blood Culture (Wb) - Right Hand Blood Culture - Final Staphylococcus aureus 07/20/22 14:55 Blood Culture (Wb) - Anticubital Right Bacteria Detection (PCR) - Final Meth. resistant Staph. aureus 07/20/22 14:55 Blood Culture (Wb) - Anticubital Right Blood Culture - Final Meth. resistant Staph. aureus 07/20/22 14:45 Blood Culture (Wb) - Left Hand Blood Culture - Final Staphylococcus aureus 07/20/22 18:10 Urine, Catheterized Urine Culture - Final Citrobacter freundii 07/20/22 19:47 Mucosa - Nasopharyngeal Respiratory Panel (PCR) - Final 07/20/22 18:10 Urine, Random Legionella Antigen - Final 07/20/22 18:10 Urine, Random Streptococcus pneumoniae Antigen (M - Final 07/20/22 13:55 Nasal Secretion SARS-CoV-2 & FLU Antigen (Rapid) - Final ABG Data ABG results: ABG 07/28/22 11:39 Specimen Type ART Sample Site L Radial pH 7.39 Bicarbonate Actual 18.6 L Total CO2 20 Base Excess -6 L O2 Saturation 98 O2 % 30 ABG pCO2 31.0 L ABG pO2 112 H Jv Test Positive Respiration Rate 12 O2 Delivery Device Cannula Tidal Volume 500 POC PEEP 12 Physical Exam Narrative Physical exam: General: Alert, sedated, Cooperative, morbidly obese, on 2L oxygen HEENT: Atraumatic Oral: Moist Mucosa Neck: Supple Lungs: Diminished to auscultation Cardiovascular: HS I+II, regular, no murmurs Abdomen: Bowel Sounds Present, Soft, Non Tender Extremities: Jens wraps to both lower extremities, duskiness of toes Skin: No rashes, No breakdown Neurological: Grossly intact Psych/Mental Status: Appropriate Assessment & Plan Assessment/Plan (1) ZACARIAS (acute kidney injury): (2) Osteomyelitis of left foot: PLAN: Plan 1. 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 2D echo now showing aortic valve vegetation WBC count worsened to 23.7 Wound and blood cultures growing MRSA Continue on IV Zosyn and daptomycin Patient with underlying Charcot's arthropathy and chronic right foot ulcer status post TMA Podiatry, ID and air brakes inspector following; podiatry recommending transmetatarsal amputation of left foot Probable transfer to tertiary facility 2. Acute combined respiratory failure, likely secondary to septic emboli, resolved On 2L oxygen Continue with antibiotics, breathing treatments Upper Leather Cutter following 3. Acute right popliteal, tibioperoneal trunk and gastrocnemius vein DVT, continue heparin drip 4. Acute kidney injury likely secondary to ATN from above Admitting creatinine was 1.29 Started on hemodialysis on 07/25/2021; dialyzed yesterday Nephrology following Trend labs 5. Acute metabolic encephalopathy secondary to above #1 and 4, persistent Continue on Seroquel 6. Hypertension, now in septic shock, management as an #1 7. Type II DM, HbA1c is 11.2, blood sugars are fairly controlled, Continue Lantus 5 units BID, Continue with medium to high dose insulin sliding scale with blood glucose checks 8. Rest of chronic medical conditions including GERD/KRYSTAL, complicates care Continue famotidine IV 20mg daily 9. DVT PPx- On heparin drip Charges/Coding Visit Charges Inpatient E&M: 74232 [facility] L[facility]
[2022-07-29 09:39] LABS: Pathologist Review Reviewed
[2022-07-29] MEDS: Famotidine 200 MG/20 ML MDV 20 MG in 0.9% Normal Saline (Pres. free 8 ML 300 MG IV (09:51)
[2022-07-29] MEDS: Insulin Glargine-YFGN 100 UNIT/ML Pen SC ×2 (09:52→20:38)
[2022-07-29] MEDS: Menthol/Lanolin/Calamine/Znox 113 GM Tube 1 APPLIC TOPICAL ×4 (09:53→20:38)
[2022-07-29] MEDS: QUEtiapine 100 MG Tablet PO ×2 (09:54→20:39)
[2022-07-29 10:06] LABS: Pathologist Review Reviewed
--- NOTE | 2022-07-29 11:53 | PN.RENAL_ITS ---
Subjective Subjective Following for dialysis dependent ZACARIAS. The patient was agitated and confused throughout yesterday and early this morn ing. He appears to be more calm today although is intermittently agitated and confused. He denies chest pain, shortness of breath, or nausea. Objective Data Objective Data Vital Signs: Vital Signs Temp Pulse Resp BP Pulse Ox O2 Del Method O2 Flow Rate 97.9 F 75 28 H 123/98 H 97 Nasal Cannula 2 07/29/22 09:31 07/29/22 09:31 07/29/22 09:31 07/29/22 09:31 07/29/22 09:31 07/29/22 09:31 07/29/22 10:25 FiO2 2 07/29/22 06:00 Oxygen Flow Rate (L/min) 2 Oxygen Delivery Method Nasal Cannula Weight: 182.7 kg Body Mass Index (BMI) 55.0 Intake & Output: Intake and Output for Last 24 Hours 07/27/22 07/28/22 07/29/22 23:59 23:59 23:59 Intake Total 1468.94 / 1523.04 2416.15 / 2425.15 704.14 / 704.14 Output Total 65 / 75 10 / 10 0 / 0 Balance 1403.94 / 1448.04 2406.15 / 2415.15 704.14 / 704.14 Lab / Micro Data Result Diagrams: 07/29/22 04:40 07/29/22 04:40 Labs: Laboratory Results - last 24 hr 07/28/22 04:06: Diff Path Review Reviewed 07/28/22 04:06: Sodium 137, Potassium 4.8, Chloride 100, Carbon Dioxide 22.0, Anion Gap 15, BUN 91 H, Creatinine 9.34 H*, Estim Creat Clear Calc 9.55, Est GFR (MDRD) Af Amer 8 L, Est GFR (MDRD) Non-Af 6 L, BUN/Creatinine Ratio 9.7 L, Glucose 210 H, Calcium 6.9 L, Phosphorus 7.2 H, Total Bilirubin 0.80, AST 880 H, ALT 909 H, Alkaline Phosphatase 69, Total Protein 6.3 L, Albumin 1.6 L, Globulin 4.7 H, Albumin/Globulin Ratio 0.3 L 07/28/22 12:22: POC Glucose 173 H 07/28/22 16:31: POC Glucose 195 H 07/28/22 20:30: POC Glucose 177 H 07/29/22 04:40: WBC 23.7 H, RBC 4.00 L, Hgb 10.4 L, Hct 33.3 L, MCV 83.3, MCH 26.0 L, MCHC 31.2 L, RDW Std Deviation 48.6 H, RDW Coeff of Maria Fernanda 16.3 H, Plt Count 168, MPV 13.0 H, Neut % (Auto) Not Reportable, Absolute Neuts (auto) 19.2 H, Absolute Lymphs (auto) 0.95, Total Counted 100, Neutrophils % (Manual) 81 H, Lymphocytes % (Manual) 4 L, Monocytes % (Manual) 1, Metamyelocytes % 7 H, Myelocytes % 7 H, Diff Path Review Reviewed, Platelet Estimate ADEQUATE, RBC Morphology NORM C+C 07/29/22 04:40: Sodium 141, Potassium 4.5, Chloride 106, Carbon Dioxide 19.0 L, Anion Gap 16 H, BUN 93 H, Creatinine 9.03 H*, Estim Creat Clear Calc 9.88, Est GFR (MDRD) Af Amer 8 L, Est GFR (MDRD) Non-Af 7 L, BUN/Creatinine Ratio 10.3, Glucose 210 H, Calcium 5.8 L*, Phosphorus 8.2 H, Total Bilirubin 0.80, AST 290 H , ALT 521 H, Alkaline Phosphatase 65, Total Protein 5.2 L, Albumin 1.4 L, Globulin 3.8, Albumin/Globulin Ratio 0.4 L Micro: Microbiology 07/25/22 09:50 Blood Culture (Wb) - Anticubital Right Blood Culture - Final No growth in 5 days. 07/24/22 10:40 Blood Culture (Wb) - Anticubital Right Blood Culture - Final No growth in 5 days. 07/28/22 10:50 Blood Culture (Wb) - Pic Blood Culture - Preliminary 07/22/22 16:39 Bone - Right Foot Gram Stain - Final 07/22/22 16:39 Bone - Right Foot Wound Culture - Final No growth aerobically. 07/22/22 16:39 Bone - Right Foot Anaerobic Culture - Final Anaerobic cocci 07/22/22 16:37 Wound Abcess - Right Foot Gram Stain - Final 07/22/22 16:37 Wound Abcess - Right Foot Wound Culture - Final Meth. resistant Staph. aureus 07/22/22 16:37 Wound Abcess - Right Foot Anaerobic Culture - Final Anaerobic cocci 07/22/22 16:35 Bone - Left Foot Gram Stain - Final 07/22/22 16:35 Bone - Left Foot Wound Culture - Final Meth. resistant Staph. aureus 07/22/22 16:35 Bone - Left Foot Anaerobic Culture - Final No anaerobic bacteria isolated. 07/22/22 16:32 Wound Abcess - Left Foot Gram Stain - Final 07/22/22 16:32 Wound Abcess - Left Foot Wound Culture - Final Meth. resistant Staph. aureus 07/22/22 16:32 Wound Abcess - Left Foot Anaerobic Culture - Final No anaerobic bacteria isolated. 07/21/22 11:00 Wound - Left Foot Gram Stain - Final 07/21/22 11:00 Wound - Left Foot Wound Culture - Final Proteus mirabilis Kocuria kristinae 07/21/22 11:00 Wound - Left Foot Anaerobic Culture - Final Bacteroides thetaiotaomicron 07/21/22 09:30 Bone - Left Foot Gram Stain - Final 07/21/22 09:30 Bone - Left Foot Wound Culture - Final Proteus mirabilis Kocuria kristinae 07/21/22 09:30 Bone - Left Foot Anaerobic Culture - Final Bacteroides thetaiotaomicron Anaerobic cocci 07/23/22 10:50 Blood Culture (Wb) - Right Hand Blood Culture - Final Meth. resistant Staph. aureus 07/22/22 09:50 Blood Culture (Wb) - Right Hand Blood Culture - Final Staphylococcus aureus 07/20/22 14:55 Blood Culture (Wb) - Anticubital Right Bacteria Detection (PCR) - Final Meth. resistant Staph. aureus 07/20/22 14:55 Blood Culture (Wb) - Anticubital Right Blood Culture - Final Meth. resistant Staph. aureus 07/20/22 14:45 Blood Culture (Wb) - Left Hand Blood Culture - Final Staphylococcus aureus 07/20/22 18:10 Urine, Catheterized Urine Culture - Final Citrobacter freundii 07/20/22 19:47 Mucosa - Nasopharyngeal Respiratory Panel (PCR) - Final 07/20/22 18:10 Urine, Random Legionella Antigen - Final 07/20/22 18:10 Urine, Random Streptococcus pneumoniae Antigen (M - Final 07/20/22 13:55 Nasal Secretion SARS-CoV-2 & FLU Antigen (Rapid) - Final Physical Exam Narrative General: Less agitated, confused and not following command. HEENT: Normocephalic. Heart: Normal S1, S2. No R/M/G. Lungs: Diminished lung sounds; Negative for rales, rhonchi or wheezes. Abdomen: Normal bowel sounds, soft, nontender. Extremity: 1+ lower extremity edema. 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 The patient is being treated for MRSA bacteremia with septic emboli to the lungs along with UTI.? Nephrology is asked to see the patient because of ZACARIAS. Acute kidney injury. Baseline serum creatinine appears to be around 1.10 mg/dL. ZACARIAS is likely due to hemodynamic changes causing prerenal azotemia has likely evolved to ischemic ATN.? This is related to severe sepsis and recent fluctuation in BP in the patient with chronic hypertension.? The patient required IV vasopressor for around 24 hours on 07/25/2022 as well. Another possible cause of ZACARIAS would be nephrotoxic ATN due to IV vancomycin.? The chance of nephrotoxic ATN from vancomycin increases when it is combined with piperacillin/tazobactam. Although infection related acute glomerulonephritis is possible, it is less likely as urinalysis did not show significant RBCs.? Renal ultrasound did not show any obstruction. I have stopped lisinopril altogether for now to avoid confusion. Vancomycin has been stopped and he is now on daptomycin instead. The patient was started on dialysis on 07/25/2022 because of worsening azotemia and confusion. Attempted to dialyze the patient yesterday because of confusion to exclude uremia as the cause. However, the patient was too agitated to continue dialysis after 1-1/2-hour. Will retry dialysis again today now that the patient is less agitated. We will probably not be able to take a lot of fluid off since he is still hypotensive on vasopressor. Current medications are reviewed. Hyponatremia. Resolved. The patient has mild hyponatremia which has improved.? Serum sodium was 127 mmol/L on 07/20/2022. Serum sodium has improved to 141 mmol/L today. Will continue to monitor serum sodium. Septic shock secondary to MRSA bloodstream infection with septic emboli to the lungs and Citrobacter freundii UTI. Antimicrobial treatment as per infectious disease service. The patient may be need to be transferred to a tertiary care center because of vegetation on valve as well. Nephrology plan will be discussed with Dr. Baca, payroll and benefits coordinator, and Dr. Rutledge, hospitalist.
--- NOTE | 2022-07-29 13:02 | CHAPLAIN ---
Type of Pastoral Visit ___ Initial Visit _x__ Follow-up Visit ___ On-call Visit ___ General Patient Visit ___ Spiritual Assessment ___ Family Conference ___ Bereavement ___ Rapid Response ___ Code Blue ___ Other (describe below) Pastoral Care Referral From _x__ Patient ___ Family ___ Nurse ___ Physician ___ Firearms Sales Associate ___ Supervisor Estimator And Drafter ___ Other (describe below) Sacrament/Intervention _x__ Active listening ___ Anointing ___ Advent ___ Bereavement ___ Communion ___ Cami exploration ___ ___ Life review _x__ Prayer ___ Reconciliation ___ Sacrament of Sick _x__ Supportive presence ___ Wedding ___ Other (describe below) Pastoral Comments patient admits to some boredom and impatience; pt speaks of going home as his goal anna; pt talks about football playoffs; pt welcomes the time given and a prayer
[2022-07-29 13:25] LABS: Bedside Glucose 213 mg/dL (74-106)
--- NOTE | 2022-07-29 15:09 | PN.ID_ITS ---
Physical Exam Narrative Feeling ok, no fever overnight, no n/v Const alert and no apparent distress Resp normal air movement and clear to auscultation bilaterally Cardio regular rate and regular rhythm GI soft to palpation, non-tender and non-distended Extremity General Extremity: edema Skin Skin Narrative: feet wrapped ID ID: Route of nutrition/ use of supplements: [] Nutritional Intake: [] IV Site: [] Faulkner Catheter: [] Assessment & Plan Assessment/Plan (1) Osteomyelitis: QUALIFIERS: Osteomyelitis type: other acute Osteomyelitis location: foot Laterality: right Qualified Code(s): M86.171 - Other acute osteomyelitis, right ankle and foot (2) Type 2 diabetes mellitus with diabetic polyneuropathy: 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 Followed by podiatry. Taken to OR 07/22/[address] Babin for bilat feet I&D. Surg cx with MRSA, proteus, kocuria, anaerobes. Repeat bcx have cleared since 07/24 but TTE now with aortic valve veg. L TMA planned. Fever improved. Will follow (4) MRSA bacteremia: (5) Endocarditis:
[2022-07-29 17:40] LABS: Bedside Glucose 156 mg/dL (74-106)
--- NOTE | 2022-07-29 17:56 | DIALYSIS ---
Addendum entered by Nas Blandon 07/29/22 18:12: Report given to primary RN, Dannie Medina Original Note: Hemodialysis stopped after 3 hours. Actual HD tx 2 hours.. Patient very confused and restless through HD tx. Right IJ catheter very positional. Patient's constant moving caused continual arterial pressure alarms. HD tx discontinued when BFR max at 150 ml/min. Dr. Dorado called and voicemail left. Right IJ CVC: Site has some bleeding dressing reinforced. Lumen flushed with NS, filled to volume with Heparin, clamped and capped. Report given to primary RNJayesh.
--- NOTE | 2022-07-29 18:43 | PCM.PROGNOTE ---
Subjective Subjective Patient was seen in bed resting sitting up with feet dangling over the side of the bed. He is s/p I&D and debridement of the left and right foot ulcerations. He still does demonstrate confusion and had trouble recalling who I was today. He states that I am really sick and have the runs. He denies any pain in his feet. He denies any further complaints. Objective Data Objective Data Vital Signs: Vital Signs Temp Pulse Resp BP Pulse Ox O2 Del Method O2 Flow Rate 96.9 F L 85 21 H 94/43 L 96 Room Air 2 07/29/22 17:45 07/29/22 17:45 07/29/22 17:45 07/29/22 17:45 07/29/22 16:00 07/29/22 17:45 07/29/22 16:00 FiO2 95 07/29/22 17:45 Oxygen Flow Rate (L/min) 2 Oxygen Delivery Method Room Air Weight: 182.7 kg Body Mass Index (BMI) 55.0 Intake & Output: Intake and Output for Last 24 Hours 07/27/22 07/28/22 07/29/22 23:59 23:59 23:59 Intake Total 1468.94 / 1523.04 2416.15 / 2425.15 921.59 / 921.59 Output Total 65 / 75 10 / 10 0 / 0 Balance 1403.94 / 1448.04 2406.15 / 2415.15 921.59 / 921.59 Lab / Micro Data Result Diagrams: 07/29/22 04:40 07/29/22 04:40 Labs: Laboratory Results - last 24 hr 07/28/22 04:06: Diff Path Review Reviewed 07/28/22 04:06: Sodium 137, Potassium 4.8, Chloride 100, Carbon Dioxide 22.0, Anion Gap 15, BUN 91 H, Creatinine 9.34 H*, Estim Creat Clear Calc 9.55, Est GFR (MDRD) Af Amer 8 L, Est GFR (MDRD) Non-Af 6 L, BUN/Creatinine Ratio 9.7 L, Glucose 210 H, Calcium 6.9 L, Phosphorus 7.2 H, Total Bilirubin 0.80, AST 880 H, ALT 909 H, Alkaline Phosphatase 69, Total Protein 6.3 L, Albumin 1.6 L, Globulin 4.7 H, Albumin/Globulin Ratio 0.3 L 07/28/22 20:30: POC Glucose 177 H 07/29/22 04:40: WBC 23.7 H, RBC 4.00 L, Hgb 10.4 L, Hct 33.3 L, MCV 83.3, MCH 26.0 L, MCHC 31.2 L, RDW Std Deviation 48.6 H, RDW Coeff of Maria Fernanda 16.3 H, Plt Count 168, MPV 13.0 H, Neut % (Auto) Not Reportable, Absolute Neuts (auto) 19.2 H, Absolute Lymphs (auto) 0.95, Total Counted 100, Neutrophils % (Manual) 81 H, Lymphocytes % (Manual) 4 L, Monocytes % (Manual) 1, Metamyelocytes % 7 H, Myelocytes % 7 H, Diff Path Review Reviewed, Platelet Estimate ADEQUATE, RBC Morphology NORM C+C 07/29/22 04:40: Sodium 141, Potassium 4.5, Chloride 106, Carbon Dioxide 19.0 L, Anion Gap 16 H, BUN 93 H, Creatinine 9.03 H*, Estim Creat Clear Calc 9.88, Est GFR (MDRD) Af Amer 8 L, Est GFR (MDRD) Non-Af 7 L, BUN/Creatinine Ratio 10.3, Glucose 210 H, Calcium 5.8 L*, Phosphorus 8.2 H, Total Bilirubin 0.80, AST 290 H, ALT 521 H, Alkaline Phosphatase 65, Total Protein 5.2 L, Albumin 1.4 L, Globulin 3.8, Albumin/Globulin Ratio 0.4 L 07/29/22 12:39: POC Glucose 213 H 07/29/22 17:17: POC Glucose 156 H Micro: Microbiology 07/28/22 10:50 Blood Culture (Wb) - Pic Blood Culture - Preliminary 07/25/22 09:50 Blood Culture (Wb) - Anticubital Right Blood Culture - Final No growth in 5 days. 07/24/22 10:40 Blood Culture (Wb) - Anticubital Right Blood Culture - Final No growth in 5 days. 07/22/22 16:39 Bone - Right Foot Gram Stain - Final 07/22/22 16:39 Bone - Right Foot Wound Culture - Final No growth aerobically. 07/22/22 16:39 Bone - Right Foot Anaerobic Culture - Final Anaerobic cocci 07/22/22 16:37 Wound Abcess - Right Foot Gram Stain - Final 07/22/22 16:37 Wound Abcess - Right Foot Wound Culture - Final Meth. resistant Staph. aureus 07/22/22 16:37 Wound Abcess - Right Foot Anaerobic Culture - Final Anaerobic cocci 07/22/22 16:35 Bone - Left Foot Gram Stain - Final 07/22/22 16:35 Bone - Left Foot Wound Culture - Final Meth. resistant Staph. aureus 07/22/22 16:35 Bone - Left Foot Anaerobic Culture - Final No anaerobic bacteria isolated. 07/22/22 16:32 Wound Abcess - Left Foot Gram Stain - Final 07/22/22 16:32 Wound Abcess - Left Foot Wound Culture - Final Meth. resistant Staph. aureus 07/22/22 16:32 Wound Abcess - Left Foot Anaerobic Culture - Final No anaerobic bacteria isolated. 07/21/22 11:00 Wound - Left Foot Gram Stain - Final 07/21/22 11:00 Wound - Left Foot Wound Culture - Final Proteus mirabilis Kocuria kristinae 07/21/22 11:00 Wound - Left Foot Anaerobic Culture - Final Bacteroides thetaiotaomicron 07/21/22 09:30 Bone - Left Foot Gram Stain - Final 07/21/22 09:30 Bone - Left Foot Wound Culture - Final Proteus mirabilis Kocuria kristinae 07/21/22 09:30 Bone - Left Foot Anaerobic Culture - Final Bacteroides thetaiotaomicron Anaerobic cocci 07/23/22 10:50 Blood Culture (Wb) - Right Hand Blood Culture - Final Meth. resistant Staph. aureus 07/22/22 09:50 Blood Culture (Wb) - Right Hand Blood Culture - Final Staphylococcus aureus 07/20/22 14:55 Blood Culture (Wb) - Anticubital Right Bacteria Detection (PCR) - Final Meth. resistant Staph. aureus 07/20/22 14:55 Blood Culture (Wb) - Anticubital Right Blood Culture - Final Meth. resistant Staph. aureus 07/20/22 14:45 Blood Culture (Wb) - Left Hand Blood Culture - Final Staphylococcus aureus 07/20/22 18:10 Urine, Catheterized Urine Culture - Final Citrobacter freundii 07/20/22 19:47 Mucosa - Nasopharyngeal Respiratory Panel (PCR) - Final 07/20/22 18:10 Urine, Random Legionella Antigen - Final 07/20/22 18:10 Urine, Random Streptococcus pneumoniae Antigen (M - Final 07/20/22 13:55 Nasal Secretion SARS-CoV-2 & FLU Antigen (Rapid) - Final Physical Exam Narrative Patient responsive to painful stimuli today. NV status unchanged, improved edema on right. Derm: Full thickness wound to plantar midfoot, probes to bone, no acute signs of infection. Full thickness wound to plantar left forefoot x2. Plantar 2nd and 4th metatarsal heads, both probe to bone, some edema to 2nd digit. No residual purulence or other signs of acute infection. Const well nourished HEENT normocephalic Assessment & Plan Assessment/Plan (1) Non-pressure chronic ulcer of other part of right foot with fat layer exposed: PLAN: Exam performed. Persistent leukocytosis worsening to 23.7, patient on vasopressors to assist BP managment, hospitalist suggest from hemodynamic shift. Patient with significant ZACARIAS w/ ATN, Cr>8 2/2 to sepsis vs vancomycin. He is undergoing dialysis. Duplex +DVT RLE - heparin Wounds clinically today demonstrate healthy bases with minimal signs of acute infection. Bone cultures to right side were negative, bone cultures on left side grew MRSA. Left foot appears to be source of infection. MRI did confirm osteomyelitis on left to 2nd digit, 2nd metatarsal and 3rd metatarsal with a large plantar abscess. Initially, Dr. Babin was hoping that decompression of the abscess with bone biopsy/culture in combination with IV antibiotics would significant improve infection status. Due to continued issues and confirmed osteomyelitis to multiple site in left foot, Dr. Babin and I would recommend transmetatarsal amputation on the left for definitive infection clearance. Historically he has refused any previous surgical intervention involving amputation. Will likely await dialysis to see if improvement in mentation to discuss with patient. I attempted to discuss transmetatarsal amputation of the left foot with the patient today and at times he seemed confused and stated I understand I may have to lose part of the foot and I want this to be done, but then would also state I do not want to lose part of my foot and I do not want it done. I will again attempt to discuss with him further as his confusion improves. Vital signs stable at current. Patient on bipap and levophed. persistent leukocytosis noted at 23.7. Patient had 2D echo demonstrating vegetations on the aortic valve. Nursing informs me they are looking to transfer patient to tertiary facility to undergo treatment with a surgeon. Given his need for transfer and treatment the left foot TMA may need to be performed in outpatient setting. Infectious diseases following. Patient receiving IV daptomycin/zosyn. Patient will require prolonged NWB to bilateral feet on discharge. Recommend SNF once stable. Will continue to follow closely. Please do not hesitate to call for any questions or concerns Jr. Khang Rain.[facility] [phone] Note: [employer] speech recognition right of way supervisor software was used to create portions of this document. Sound-alike and misspelled words, as well as other right of way supervisor errors may be contained in the documentation. (2) Non-pressure chronic ulcer of other part of left foot with necrosis of bone: (3) Charcot's joint of right foot: (4) Type 2 diabetes mellitus with diabetic polyneuropathy: (5) Osteomyelitis of left foot:
[2022-07-29 21:20] LABS: Bedside Glucose 193 mg/dL (74-106)
--- NOTE | 2022-07-29 22:30 | CPS ---
Pt refused AVAPS at this time
[2022-07-30] VITALS (25 sets, daily range): BP systolic 90–145; BP diastolic 36–78; PULSE 81–99; RESP 20–31; TEMP 36.4–36.7; O2SAT 92–100
[2022-07-30 03:29] LABS: Hemoglobin 10.6 g/dL (13.0-16.5); Mean Corp Hgb Conc 31.2 g/dL (32-36); Mean Corpuscular Hgb 26.3 pg (27.0-32.0); Mean Corpuscular Volume 84.4 fL (80-94); Mean Platelet Vol. 11.6 fl (6.2-12.0); POSITIVE COUNT YES; POSITIVE DIFFERENTIAL YES; POSITIVE MORPHOLOGY YES; Platelet Count 147 K/mm3 (150-450); RBC Distribution Width CV 16.4 % (11.6-14.6); RBC Distribution Width SD 49.8 fl (35.1-43.9); Red Blood Count 4.03 M/mm3 (4.6-6.2)
[2022-07-30 03:54] LABS: Differential Indicated MANUAL DIFF
[2022-07-30 03:55] LABS: White Blood Count 31.8 K/mm3 (4.4-11.0)
[2022-07-30 03:56] LABS: ALB/GLOB Ratio 0.4 RATIO (0.9-2.4); AST(SGOT) 156 U/L (15-37); Alanine Aminotransfer ALT/SGPT 396 U/L (16-61); Albumin, Serum 1.7 g/dL (3.2-5.0); Alkaline Phosphatase 79 U/L (45-117); Anion Gap 23 (5-15); BUN 81 mg/dL (7-18); BUN/Creat Ratio 9.1 RATIO (10-20); Calcium,Total 6.6 mg/dL (8.5-10.1); Chloride 101 mmol/L (98-107); EST Glomerular Filtration Rate 7 mL/min (>60); Est Glom Filt Rate - Afr Amer 8 mL/min (>60); Estimated Creatinine Clearance 10.02 ml/min; Globulin 4.6 g/dL (2.2-4.2); Glucose 184 mg/dL (74-106); Phosphorus 8.1 mg/dL (2.5-4.9); Potassium 3.9 mmol/L (3.5-5.1); Protein, Total 6.3 g/dL (6.4-8.2); Sodium Level 140 mmol/L (136-145)
[2022-07-30 04:01] LABS: Total Cells Counted 100 (MANUAL DIFF)
[2022-07-30 04:02] LABS: Lymphocyte 4 % (19-41); Metamyelocyte 1 % (0-1); Monocyte 2 % (0-10); Myelocyte 2 % (0-0); Neutrophil-Band 4 % (0-5); Neutrophil-Segmented 86 % (47-70); Platelet Estimate ADEQUATE (ADEQ); Promyelocyte 1 % (0-0)
[2022-07-30 04:03] LABS: Macrocytosis RARE; Polychromasia RARE
[2022-07-30 05:55] LABS: Absolute Neutrophil Count 28.6 X10^3/uL (2.0-7.7); Neutrophil # 28.62 X10^3/uL (2.7-7.7)
[2022-07-30 05:56] LABS: Absolute Lymphocyte Count 1.27 X10^3/uL (0.83-4.51); Lymphocyte # 1.27 X10^3/ul (0.83-4.51)
--- NOTE | 2022-07-30 07:13 | PCM.PN.INT ---
Assessment & Plan Assessment/Plan (1) Sepsis: PLAN: Plan RECOMMENDATIONS: 1. Antimicrobials per infectious diseases. 2. Continue local wound care. Podiatry considering possible amputation 3. Reinitiate Levophed if needed. 4. Dialysis support per nephrology recommendations. Volume removal if possible 5. Speech therapy to evaluate swallow 6. Transfer to a tertiary center for aortic valve evaluation IMPRESSIONS: 1. Septic shock with aortic valve vegetation The patient presented to the hospital with sepsis due to osteomyelitis with secondary MRSA, among others, bacteremia and acute sepsis related organ dysfunction as evidenced by lactic acidemia and hemodynamic instability requiring vasopressor support. The patient remains on antimicrobials under the discretion of infectious diseases, but continues to have persistently positive blood cultures. The patient did ultimately undergo surgical debridement under the discretion of podiatry on July 22, but podiatry is suggesting that an amputation may be necessary. Echocardiogram did not reveal any valvular vegetations initially, but repeat echo shows an aortic valve vegetation. This would explain the widened pulse pressure leading to pressor initiation yesterday. Clinical suspicion for embolic spread to the lungs. 2. Acute kidney injury Most likely prerenal in etiology in the setting of #1, with gradual evolution to ATN. Nephrology is following to assist with medical management. Renal ultrasound was unremarkable. Continue dialysis support per nephrology recommendations. Patient would benefit from volume removal if possible. Patient may require some bicarbonate, but defer to nephrology 3. Encephalopathy Improving. Most likely metabolic in etiology and related to underlying infection and renal dysfunction. The patient does have a tendency to retain CO2. Therefore, BiPAP therapy will be appropriate with naps and sleep. I would strongly advise against the use of morphine in a patient with underlying renal dysfunction. Out of bed as tolerated to possible. Attempt discontinuation of Precedex. 4. Chronic tobacco dependency without diagnosis of COPD Although the patient has a longstanding tobacco abuse history, he denied ever having been diagnosed with COPD. It is reasonable to continue as needed bronchodilator therapy. Recommend weaning supplemental oxygen as tolerated for saturations greater than 90%. Nicotine replacement therapy can be offered to the patient while admitted to the hospital. 5. History of osteomyelitis with Charcot arthropathy/hypertension/hyperlipidemia/morbid obesity/diabetes mellitus Complicates care, management, recovery and prognosis. Continue sliding scale insulin coverage. Subjective Subjective Patient did okay overnight. Attempts to transfer to a tertiary center been unsuccessful thus far. Patient was able to be taken off of Levophed and Precedex. Patient could not have any fluid removed with hemodialysis secondary to blood pressure issues. Patient continues to have a wide pulse pressure, but denies any chest pain. Patient does get short of breath with attempts to move around the bed. Objective Data Objective Data Vital Signs: Vital Signs Temp Pulse Resp BP Pulse Ox O2 Del Method O2 Flow Rate 36.6 C 85 24 H 104/39 L 92 Room Air 2 07/30/22 04:00 07/30/22 07:00 07/30/22 07:00 07/30/22 07:00 07/30/22 07:00 07/30/22 07:00 07/29/22 16:00 FiO2 95 07/29/22 17:45 Oxygen Flow Rate (L/min) 2 Oxygen Delivery Method Room Air Weight: 183.4 kg Body Mass Index (BMI) 55.0 Intake & Output: Intake and Output for Last 24 Hours 07/28/22 07/29/22 07/30/22 23:59 23:59 23:59 Intake Total 2416.15 / 2425.15 1068.44 / 1070.79 61.75 / 61.75 Output Total 0 / 0 0 / 0 Balance 2406.15 / 2415.15 1068.44 / 1070.79 61.75 / 61.75 Lab / Micro Data Attestation: I reviewed the patient's lab results. Result Diagrams: 07/30/22 03:20 07/30/22 03:20 Labs: Laboratory Results - last 24 hr 07/28/22 04:06: Diff Path Review Reviewed 07/29/22 04:40: Diff Path Review Reviewed 07/29/22 12:39: POC Glucose 213 H 07/29/22 17:17: POC Glucose 156 H 07/29/22 20:59: POC Glucose 193 H 07/30/22 03:20: WBC 31.8 H*, RBC 4.03 L, Hgb 10.6 L, Hct 34.0 L, MCV 84.4, MCH 26.3 L, MCHC 31.2 L, RDW Std Deviation 49.8 H, RDW Coeff of Maria Fernanda 16.4 H, Plt Count 147 L, MPV 11.6, Neut % (Auto) Not Reportable, Absolute Neuts (auto) 28.6 H, Absolute Lymphs (auto) 1.27, Total Counted 100, Neutrophils % (Manual) 86 H, Band Neutrophils % 4, Lymphocytes % (Manual) 4 L, Monocytes % (Manual) 2, Metamyelocytes % 1, Myelocytes % 2 H, Promyelocytes % 1 H, Diff Path Review May foll, Platelet Estimate ADEQUATE, Polychromasia RARE, Macrocytosis RARE 07/30/22 03:20: Sodium 140, Potassium 3.9, Chloride 101, Carbon Dioxide 16.0 L, Anion Gap 23 H, BUN 81 H, Creatinine 8.90 H*, Estim Creat Clear Calc 10.02, Est GFR (MDRD) Af Amer 8 L, Est GFR (MDRD) Non-Af 7 L, BUN/Creatinine Ratio 9.1 L, Glucose 184 H, Calcium 6.6 L, Phosphorus 8.1 H, Total Bilirubin 0.80, AST 156 H, ALT 396 H, Alkaline Phosphatase 79, Total Protein 6.3 L, Albumin 1.7 L, Globulin 4.6 H, Albumin/Globulin Ratio 0.4 L Micro: Microbiology 07/29/22 16:00 Stool C. difficile DNA Amplification - Final 07/28/22 10:50 Blood Culture (Wb) - Pic Blood Culture - Preliminary 07/25/22 09:50 Blood Culture (Wb) - Anticubital Right Blood Culture - Final No growth in 5 days. 07/24/22 10:40 Blood Culture (Wb) - Anticubital Right Blood Culture - Final No growth in 5 days. 07/22/22 16:39 Bone - Right Foot Gram Stain - Final 07/22/22 16:39 Bone - Right Foot Wound Culture - Final No growth aerobically. 07/22/22 16:39 Bone - Right Foot Anaerobic Culture - Final Anaerobic cocci 07/22/22 16:37 Wound Abcess - Right Foot Gram Stain - Final 07/22/22 16:37 Wound Abcess - Right Foot Wound Culture - Final Meth. resistant Staph. aureus 07/22/22 16:37 Wound Abcess - Right Foot Anaerobic Culture - Final Anaerobic cocci 07/22/22 16:35 Bone - Left Foot Gram Stain - Final 07/22/22 16:35 Bone - Left Foot Wound Culture - Final Meth. resistant Staph. aureus 07/22/22 16:35 Bone - Left Foot Anaerobic Culture - Final No anaerobic bacteria isolated. 07/22/22 16:32 Wound Abcess - Left Foot Gram Stain - Final 07/22/22 16:32 Wound Abcess - Left Foot Wound Culture - Final Meth. resistant Staph. aureus 07/22/22 16:32 Wound Abcess - Left Foot Anaerobic Culture - Final No anaerobic bacteria isolated. 07/21/22 11:00 Wound - Left Foot Gram Stain - Final 07/21/22 11:00 Wound - Left Foot Wound Culture - Final Proteus mirabilis Kocuria kristinae 07/21/22 11:00 Wound - Left Foot Anaerobic Culture - Final Bacteroides thetaiotaomicron 07/21/22 09:30 Bone - Left Foot Gram Stain - Final 07/21/22 09:30 Bone - Left Foot Wound Culture - Final Proteus mirabilis Kocuria kristinae 07/21/22 09:30 Bone - Left Foot Anaerobic Culture - Final Bacteroides thetaiotaomicron Anaerobic cocci 07/23/22 10:50 Blood Culture (Wb) - Right Hand Blood Culture - Final Meth. resistant Staph. aureus 07/22/22 09:50 Blood Culture (Wb) - Right Hand Blood Culture - Final Staphylococcus aureus 07/20/22 14:55 Blood Culture (Wb) - Anticubital Right Bacteria Detection (PCR) - Final Meth. resistant Staph. aureus 07/20/22 14:55 Blood Culture (Wb) - Anticubital Right Blood Culture - Final Meth. resistant Staph. aureus 07/20/22 14:45 Blood Culture (Wb) - Left Hand Blood Culture - Final Staphylococcus aureus 07/20/22 18:10 Urine, Catheterized Urine Culture - Final Citrobacter freundii 07/20/22 19:47 Mucosa - Nasopharyngeal Respiratory Panel (PCR) - Final 07/20/22 18:10 Urine, Random Legionella Antigen - Final 07/20/22 18:10 Urine, Random Streptococcus pneumoniae Antigen (M - Final 07/20/22 13:55 Nasal Secretion SARS-CoV-2 & FLU Antigen (Rapid) - Final Physical Exam Const alert and no apparent distress Constitutional Narrative: The patient is impulsive. Interacts intermittently to follow commands. Able to hold a conversation slightly longer and more appropriate today Orientation / Consciousness: confused Nutritional Appearance: morbidly obese HEENT normocephalic, head/scalp atraumatic and moist oral mucous membranes Eyes PERRL, EOMs intact bilaterally and conjunctivae normal Neck supple General: trachea midline and CVC in place Chest inspection of chest normal Resp Auscultation: diminished lung sounds; Negative for rales, rhonchi or wheezes Cardio regular rate, regular rhythm, S1 normal heart sound, S2 normal heart sound, no rub and no gallops Heart Sounds: murmur systolic II/ soft early left sternal border GI normal to inspection, nondistended, normoactive bowel sounds Extremity Extremity Narrative: Wrapped lower extremities. General Extremity: edema; Negative for clubbing Skin General Skin Exam: venous stasis and dermatitis Neuro CN's II-XII intact bilaterally, moves all extremities and no focal motor deficits Psych Psych Narrative: Patient directable when in the room, but intermittently impulsive when left alone Activity / Motor Behavior: restless Charges/Coding Visit Charges Inpatient E&M: 17242 Subs Hosp L3
--- NOTE | 2022-07-30 07:56 | PN.HOSP_ITS ---
Subjective Subjective Follow-up for septic shock/MRSA bacteremia/ZACARIAS/osteomyelitis: Patient was seen and examined.? Patient overnight is off Levophed. He is less confused today. His blood cultures growing yeast. Objective Data Objective Data Vital Signs: Vital Signs Temp Pulse Resp BP Pulse Ox O2 Del Method O2 Flow Rate 97.9 F 85 24 H 104/39 L 92 Room Air 2 07/30/22 04:00 07/30/22 07:00 07/30/22 07:00 07/30/22 07:00 07/30/22 07:00 07/30/22 07:00 07/29/22 16:00 FiO2 95 07/29/22 17:45 Oxygen Flow Rate (L/min) 2 Oxygen Delivery Method Room Air Weight: 183.4 kg Body Mass Index (BMI) 55.0 Intake & Output: Intake and Output for Last 24 Hours 07/28/22 07/29/22 07/30/22 23:59 23:59 23:59 Intake Total 2416.15 / 2425.15 1068.44 / 1070.79 61.75 / 61.75 Output Total 10 / 10 0 / 0 0 / 0 Balance 2406.15 / 2415.15 1068.44 / 1070.79 61.75 / 61.75 Lab / Micro Data Result Diagrams: 07/30/22 03:20 07/30/22 03:20 Labs: Laboratory Results - last 24 hr 07/28/22 04:06: Diff Path Review Reviewed 07/29/22 04:40: Diff Path Review Reviewed 07/29/22 12:39: POC Glucose 213 H 07/29/22 17:17: POC Glucose 156 H 07/29/22 20:59: POC Glucose 193 H 07/30/22 03:20: WBC 31.8 H*, RBC 4.03 L, Hgb 10.6 L, Hct 34.0 L, MCV 84.4, MCH 26.3 L, MCHC 31.2 L, RDW Std Deviation 49.8 H, RDW Coeff of Maria Fernanda 16.4 H, Plt Count 147 L, MPV 11.6, Neut % (Auto) Not Reportable, Absolute Neuts (auto) 28.6 H, Absolute Lymphs (auto) 1.27, Total Counted 100, Neutrophils % (Manual) 86 H, Band Neutrophils % 4, Lymphocytes % (Manual) 4 L, Monocytes % (Manual) 2, Metamyelocytes % 1, Myelocytes % 2 H, Promyelocytes % 1 H, Diff Path Review May foll, Platelet Estimate ADEQUATE, Polychromasia RARE, Macrocytosis RARE 07/30/22 03:20: Sodium 140, Potassium 3.9, Chloride 101, Carbon Dioxide 16.0 L, Anion Gap 23 H, BUN 81 H, Creatinine 8.90 H*, Estim Creat Clear Calc 10.02, Est GFR (MDRD) Af Amer 8 L, Est GFR (MDRD) Non-Af 7 L, BUN/Creatinine Ratio 9.1 L, Glucose 184 H, Calcium 6.6 L, Phosphorus 8.1 H, Total Bilirubin 0.80, AST 156 H, ALT 396 H, Alkaline Phosphatase 79, Total Protein 6.3 L, Albumin 1.7 L, Globulin 4.6 H, Albumin/Globulin Ratio 0.4 L Micro: Microbiology 07/29/22 16:00 Stool C. difficile DNA Amplification - Final 07/28/22 10:50 Blood Culture (Wb) - Pic Blood Culture - Preliminary 07/25/22 09:50 Blood Culture (Wb) - Anticubital Right Blood Culture - Final No growth in 5 days. 07/24/22 10:40 Blood Culture (Wb) - Anticubital Right Blood Culture - Final No growth in 5 days. 07/22/22 16:39 Bone - Right Foot Gram Stain - Final 07/22/22 16:39 Bone - Right Foot Wound Culture - Final No growth aerobically. 07/22/22 16:39 Bone - Right Foot Anaerobic Culture - Final Anaerobic cocci 07/22/22 16:37 Wound Abcess - Right Foot Gram Stain - Final 07/22/22 16:37 Wound Abcess - Right Foot Wound Culture - Final Meth. resistant Staph. aureus 07/22/22 16:37 Wound Abcess - Right Foot Anaerobic Culture - Final Anaerobic cocci 07/22/22 16:35 Bone - Left Foot Gram Stain - Final 07/22/22 16:35 Bone - Left Foot Wound Culture - Final Meth. resistant Staph. aureus 07/22/22 16:35 Bone - Left Foot Anaerobic Culture - Final No anaerobic bacteria isolated. 07/22/22 16:32 Wound Abcess - Left Foot Gram Stain - Final 07/22/22 16:32 Wound Abcess - Left Foot Wound Culture - Final Meth. resistant Staph. aureus 07/22/22 16:32 Wound Abcess - Left Foot Anaerobic Culture - Final No anaerobic bacteria isolated. 07/21/22 11:00 Wound - Left Foot Gram Stain - Final 07/21/22 11:00 Wound - Left Foot Wound Culture - Final Proteus mirabilis Kocuria kristinae 07/21/22 11:00 Wound - Left Foot Anaerobic Culture - Final Bacteroides thetaiotaomicron 07/21/22 09:30 Bone - Left Foot Gram Stain - Final 07/21/22 09:30 Bone - Left Foot Wound Culture - Final Proteus mirabilis Kocuria kristinae 07/21/22 09:30 Bone - Left Foot Anaerobic Culture - Final Bacteroides thetaiotaomicron Anaerobic cocci 07/23/22 10:50 Blood Culture (Wb) - Right Hand Blood Culture - Final Meth. resistant Staph. aureus 07/22/22 09:50 Blood Culture (Wb) - Right Hand Blood Culture - Final Staphylococcus aureus 07/20/22 14:55 Blood Culture (Wb) - Anticubital Right Bacteria Detection (PCR) - Final Meth. resistant Staph. aureus 07/20/22 14:55 Blood Culture (Wb) - Anticubital Right Blood Culture - Final Meth. resistant Staph. aureus 07/20/22 14:45 Blood Culture (Wb) - Left Hand Blood Culture - Final Staphylococcus aureus 07/20/22 18:10 Urine, Catheterized Urine Culture - Final Citrobacter freundii 07/20/22 19:47 Mucosa - Nasopharyngeal Respiratory Panel (PCR) - Final 07/20/22 18:10 Urine, Random Legionella Antigen - Final 07/20/22 18:10 Urine, Random Streptococcus pneumoniae Antigen (M - Final 07/20/22 13:55 Nasal Secretion SARS-CoV-2 & FLU Antigen (Rapid) - Final Physical Exam Narrative Physical exam: General: Alert, sedated, Cooperative, morbidly obese, off oxygen HEENT: Atraumatic Oral: Moist Mucosa Neck: Supple Lungs: Diminished to auscultation Cardiovascular: HS I+II, regular, no murmurs Abdomen: Bowel Sounds Present, Soft, Non Tender Extremities: Jens wraps to both lower extremities, duskiness of toes Skin: No rashes, No breakdown Neurological: Grossly intact Psych/Mental Status: Appropriate Assessment & Plan Assessment/Plan (1) ZACARIAS (acute kidney injury): (2) Osteomyelitis of left foot: PLAN: Plan 1. 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 foot (1st and 2nd digit, plantar second and fourth metatarsal heads)/large plantar abscess s/p I &D Patient now with new low diastolic pressures Blood cultures growing yeast; started on micafungin 2D echo(07/29/22) showing aortic valve vegetation WBC count worsened to 31.8 Wound and blood cultures growing MRSA/yeast Continue on IV Zosyn, daptomycin and micafugin Patient with underlying Charcot's arthropathy and chronic right foot ulcer status post TMA Podiatry, ID and sales promotion coordinator following; podiatry recommending transmetatarsal amputation of left foot Probable transfer to tertiary facility 2. 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 Acute right popliteal, tibioperoneal trunk and gastrocnemius vein DVT, continue heparin drip 4. Acute kidney injury likely secondary to ATN from above Admitting creatinine was 1.29 Started on hemodialysis on 07/25/2021; Nephrology following Trend labs 5. Acute metabolic encephalopathy secondary to above #1 and 4, persistent Continue on Seroquel 6. Hypertension, now in septic shock, management as an #1 7. Type II DM, HbA1c is 11.2, blood sugars remain fairly controlled, Continue Lantus 5 units BID, Continue with medium to high dose insulin sliding scale with blood glucose checks 8. Rest of chronic medical conditions including GERD/KRYSTAL, complicates care Continue famotidine IV 20mg daily 9. DVT PPx- On heparin drip Charges/Coding Addendum Addendum: Total time spent: 90 minutes of which more > 50% was spent in reviewing patient's chart, laboratory investigations, imaging, talking to cardiology, sales promotion coordinator and multiple tertiary center transfer line including sales promotion coordinator and cardiologists as well as cardiothoracic surgeons Visit Charges Inpatient E&M: [address] [facility] Hosp L3
--- NOTE | 2022-07-30 08:13 | PCM.PN.REN ---
Subjective Subjective Following for ZACARIAS, dialysis dependent Awake, resting in bed. No acute distress. No overnight events. Patient is alert to name, confused to time and recent events. Objective Data Objective Data Vital Signs: Vital Signs Temp Pulse Resp BP Pulse Ox O2 Del Method O2 Flow Rate 98.0 F 90 24 H 120/41 L 93 Room Air 2 07/30/22 08:00 07/30/22 08:00 07/30/22 08:00 07/30/22 08:00 07/30/22 08:00 07/30/22 08:00 07/29/22 16:00 FiO2 95 07/29/22 17:45 Oxygen Flow Rate (L/min) 2 Oxygen Delivery Method Room Air Weight: 183.4 kg Body Mass Index (BMI) 55.0 Intake & Output: Intake and Output for Last 24 Hours 07/28/22 07/29/22 07/30/22 23:59 23:59 23:59 Intake Total 2416.15 / 2425.15 1068.44 / 1070.79 61.75 / 61.75 Output Total 0 / 0 0 / 0 Balance 2406.15 / 2415.15 1068.44 / 1070.79 61.75 / 61.75 Lab / Micro Data Result Diagrams: 07/30/22 03:20 07/30/22 03:20 Labs: Laboratory Results - last 24 hr 07/28/22 04:06: Diff Path Review Reviewed 07/29/22 04:40: Diff Path Review Reviewed 07/29/22 12:39: POC Glucose 213 H 07/29/22 17:17: POC Glucose 156 H 07/29/22 20:59: POC Glucose 193 H 07/30/22 03:20: WBC 31.8 H*, RBC 4.03 L, Hgb 10.6 L, Hct 34.0 L, MCV 84.4, MCH 26.3 L, MCHC 31.2 L, RDW Std Deviation 49.8 H, RDW Coeff of Maria Fernanda 16.4 H, Plt Count 147 L, MPV 11.6, Neut % (Auto) Not Reportable, Absolute Neuts (auto) 28.6 H, Absolute Lymphs (auto) 1.27, Total Counted 100, Neutrophils % (Manual) 86 H, Band Neutrophils % 4, Lymphocytes % (Manual) 4 L, Monocytes % (Manual) 2, Metamyelocytes % 1, Myelocytes % 2 H, Promyelocytes % 1 H, Diff Path Review May foll, Platelet Estimate ADEQUATE, Polychromasia RARE, Macrocytosis RARE 07/30/22 03:20: Sodium 140, Potassium 3.9, Chloride 101, Carbon Dioxide 16.0 L, Anion Gap 23 H, BUN 81 H, Creatinine 8.90 H*, Estim Creat Clear Calc 10.02, Est GFR (MDRD) Af Amer 8 L, Est GFR (MDRD) Non-Af 7 L, BUN/Creatinine Ratio 9.1 L, Glucose 184 H, Calcium 6.6 L, Phosphorus 8.1 H, Total Bilirubin 0.80, AST 156 H, ALT 396 H, Alkaline Phosphatase 79, Total Protein 6.3 L, Albumin 1.7 L, Globulin 4.6 H, Albumin/Globulin Ratio 0.4 L Micro: Microbiology 07/28/22 10:50 Blood Culture (Wb) - Pic Blood Culture - Preliminary Staphylococcus aureus Yeast 07/29/22 16:00 Stool C. difficile DNA Amplification - Final 07/25/22 09:50 Blood Culture (Wb) - Anticubital Right Blood Culture - Final No growth in 5 days. 07/24/22 10:40 Blood Culture (Wb) - Anticubital Right Blood Culture - Final No growth in 5 days. 07/22/22 16:39 Bone - Right Foot Gram Stain - Final 07/22/22 16:39 Bone - Right Foot Wound Culture - Final No growth aerobically. 07/22/22 16:39 Bone - Right Foot Anaerobic Culture - Final Anaerobic cocci 07/22/22 16:37 Wound Abcess - Right Foot Gram Stain - Final 07/22/22 16:37 Wound Abcess - Right Foot Wound Culture - Final Meth. resistant Staph. aureus 07/22/22 16:37 Wound Abcess - Right Foot Anaerobic Culture - Final Anaerobic cocci 07/22/22 16:35 Bone - Left Foot Gram Stain - Final 07/22/22 16:35 Bone - Left Foot Wound Culture - Final Meth. resistant Staph. aureus 07/22/22 16:35 Bone - Left Foot Anaerobic Culture - Final No anaerobic bacteria isolated. 07/22/22 16:32 Wound Abcess - Left Foot Gram Stain - Final 07/22/22 16:32 Wound Abcess - Left Foot Wound Culture - Final Meth. resistant Staph. aureus 07/22/22 16:32 Wound Abcess - Left Foot Anaerobic Culture - Final No anaerobic bacteria isolated. 07/21/22 11:00 Wound - Left Foot Gram Stain - Final 07/21/22 11:00 Wound - Left Foot Wound Culture - Final Proteus mirabilis Kocuria kristinae 07/21/22 11:00 Wound - Left Foot Anaerobic Culture - Final Bacteroides thetaiotaomicron 07/21/22 09:30 Bone - Left Foot Gram Stain - Final 07/21/22 09:30 Bone - Left Foot Wound Culture - Final Proteus mirabilis Kocuria kristinae 07/21/22 09:30 Bone - Left Foot Anaerobic Culture - Final Bacteroides thetaiotaomicron Anaerobic cocci 07/23/22 10:50 Blood Culture (Wb) - Right Hand Blood Culture - Final Meth. resistant Staph. aureus 07/22/22 09:50 Blood Culture (Wb) - Right Hand Blood Culture - Final Staphylococcus aureus 07/20/22 14:55 Blood Culture (Wb) - Anticubital Right Bacteria Detection (PCR) - Final Meth. resistant Staph. aureus 07/20/22 14:55 Blood Culture (Wb) - Anticubital Right Blood Culture - Final Meth. resistant Staph. aureus 07/20/22 14:45 Blood Culture (Wb) - Left Hand Blood Culture - Final Staphylococcus aureus 07/20/22 18:10 Urine, Catheterized Urine Culture - Final Citrobacter freundii 07/20/22 19:47 Mucosa - Nasopharyngeal Respiratory Panel (PCR) - Final 07/20/22 18:10 Urine, Random Legionella Antigen - Final 07/20/22 18:10 Urine, Random Streptococcus pneumoniae Antigen (M - Final 07/20/22 13:55 Nasal Secretion SARS-CoV-2 & FLU Antigen (Rapid) - Final Physical Exam Narrative General: Less agitated, confused. Alert to name. No apparent distress HEENT: Normocephalic. Heart: Normal S1, S2. Lungs: Diminished lung sounds; Negative for rales, rhonchi or wheezes. On room air Abdomen: Normal bowel sounds, soft, nontender. Extremity: 1+ lower extremity edema. Non-tunneled temporary right IJ dialysis catheter dressing clean, dry and intact Assessment & Plan Assessment/Plan (1) ZACARIAS (acute kidney injury): (2) Hyponatremia: (3) Sepsis: PLAN: Plan - Initially nonoliguric acute kidney injury likely prerenal from sepsis now evolved to ATN.?Another possible cause of ZACARIAS could be from nephrotoxic ATN from vancomycin (elevated vanco levels).? Off lisinopril.? Serum creatinine was 1.29 mg/dL on admission (07/20).? Patient is now essentially anuric. Patient has been having difficult time tolerating dialysis due to agitation. He did dialyze yesterday with no UF due to hypotension. 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 We will plan for dialysis tomorrow with fluid removal as patient/blood pressure tolerates. -First HD 07/24 (serum creatinine 7.11 mg/dL). Temporary HD catheter placed 07/24. - metabolic acidosis from ZACARIAS and should improve with adequate dialysis. No need for IV bicarb replacement at this time - Baseline serum creatinine appears to be around 1.10 mg/dL. C3 normal, C4 slightly low at 11. Renal ultrasound did not show any hydronephrosis. - bps improved and patient is off Levophed as of 2 AM this morning. - Septic shock secondary to MRSA bloodstream infection with septic emboli to the lungs and Citrobacter freundii UTI. Antimicrobial treatment as per infectious disease service. - echo showed aortic valve vegetation. Possibly transferring to [facility] Main campus.
[2022-07-30] MEDS: Insulin Lispro 100 UNIT/ML INSULN.PEN SC ×4 (08:40→20:43)
[2022-07-30] MEDS: Insulin Glargine-YFGN 100 UNIT/ML Pen SC ×2 (08:41→20:43)
[2022-07-30] MEDS: Menthol/Lanolin/Calamine/Znox 113 GM Tube 1 APPLIC TOPICAL ×4 (08:41→20:42)
[2022-07-30] MEDS: QUEtiapine 100 MG Tablet PO ×2 (08:42→20:42)
[2022-07-30] MEDS: Famotidine 200 MG/20 ML MDV 20 MG in 0.9% Normal Saline (Pres. free 8 ML 300 MG IV (08:42)
[2022-07-30 09:15] LABS: Bedside Glucose 158 mg/dL (74-106)
--- NOTE | 2022-07-30 09:24 | ST.MBS ---
Modified Barium Swallow - Patient Information Study Date: 07/30/22 Study Time: 10:00 Direct Billable Minutes: 120 Total Minutes procedure & reportin Diagnosis: Hypoxia (R09.02) Referring Physician: Sweetie Rutledge Reason for Referral: Objectively assess swallow function, assess risk for aspiration, and determine recommendations for least restrictive diet textures and compensatory strategies to improve safety of swallow. Medical History: The patient is a 52-year-old M w/ PMHx: Hx VTE (DVT), HTN, HLD, KRYSTAL, COPD, Tobacco use, Diabetes mellitus type II, Chronic venous stasis disease, GERD, Hx Charcot arthropathy w/ Hx osteomyelitis, Hx nonpressure chronic ulcer right midfoot s/p prior amputation intervention [facility] with debridement performed at that time. He presented to [facility] ED on 07/20/22 with history of approximately 2 days of increasing dyspnea, worse with any exertion attempts. Admitting Chest x-ray with no acute cardiopulmonary findings. CTPA with no evidence of acute pulmonary emboli to the segmental level, few scattered small cavitary lesions throughout the lungs with surrounding groundglass opacities possibly secondary to atypical infection. He was admitted to hospital for management of hypoxia and sepsis amongst other comorbidities. During stay, he has also been managed for ZACARIAS, has been undergoing dialysis. He also has been managed for osteomyelitis of L foot, encephalopathy, and agitation. Pt was recommended NPO with plan for ST consult 07/29/2022 prior to diet advancement. Pt was recommended to remain NPO with plan for MBSS 07/30/2022 prior to diet advancement. Current Diet Ordered: NPO Dentition: Missing Teeth Mental Status: WNL Respiratory Status: Oxygenating on Room Air - Penetration-Aspiration Scale Penetration-Aspiration Scale: OBJECTIVE ASSESSMENT OF SWALLOW FUNCTION (QUANTITATIVE ? PER TRIAL): PENETRATION / ASPIRATION SCALE (VALDIVIA): 1 = does not enter airway 2 = enters airway/above vocal folds/ejected 3 = enters airway/above vocal folds/not ejected 4 = enters airway/contacts vocal folds/ejected 5 = enters airway/contacts vocal folds/not ejected 6 = enters airway/below vocal folds/ejected 7 = enters airway/below vocal folds/not ejected despite effort 8 = enters airway/below vocal folds/no effort VIDEOFLOROSCOPIC SCALE SCORE (VALDIVIA): Grade I = aspiration of material that has penetrated into the laryngeal vestibule, intact cough reflex Grade II = aspiration < 10 % of the bolus, intact cough reflex Grade III = aspiration of < 10 % of the bolus, reduced cough reflex or aspiration of > 10 % of the bolus, intact cough reflex Grade IV = aspiration of > 10 % of the bolus, reduced cough reflex - Penetration-Aspiration Scale Score Thin Liquid via teaspoon Result: 1= does not enter airway Thin Liquid via teaspoon Trial 2 Result: 1= does not enter airway Comment: post prandial penetration of trace residues Thin Liquid via small single sip from cup Result: 1= does not enter airway Comment: post prandial penetration of trace residues Thin Liquid via sequential sips from cup Result: 3= enters airways/above vocal folds/not ejected Pudding via teaspoon Result: 1= does not enter airway 1/2 Cookie Result: 1= does not enter airway Thin Liquid via sequential sips from straw Result: 1= does not enter airway [place] Thick Liquid via small single sip from cup Result: 1= does not enter airway - Oral Phase Labial Seal: Escape progressing to mid-chin - COIL WINDING SUPERVISOR feeding pudding - decreased lip seal accepting bite Tongue Control During Bolus Hold: Posterior escape of less than half of bolus Bolus Preparation/Mastication: Disorganized chewing/mashing with solid pieces of bolus unchewed Bolus Transport/Lingual Motion: Delayed initiation of tongue motion Oral Residue: Residue collection on oral structures - Pharyngeal Phase Initiation of Pharyngeal Swallow: Bolus head at posterior laryngeal surgace of epiglottis - sequential thin Soft Palate Elevation: No bolus between soft palate and pharyngeal wall Laryngeal Elevation: Partial superior movement thyroid cart/partial apprx aryt-epig petiole Anterior Hyoid Excursion: Partial anterior movement Epiglottic Movement: Complete inversion Laryngeal Vestibule Closure at Height of Swallow: Incomplete; narrow column of air/contrast in laryngeal vestibule Pharyngeal Stripping Wave: Present - complete Pharyngoesophageal Segment Opening: Parital distension and partial duration; parital obstruction of flow Tongue Base Retraction: Trace column of contrast between tongue base & post. pharyngeal wall Pharyngeal Residue: Trace residue within or on pharyngeal structures - Diagnosis/Impression Diagnosis: Mild-moderate oropharyngeal phase dysphagia (R13.12) Impression: Study completed with C-arm due to patient's body habitus. Additionally, COIL WINDING SUPERVISOR unable to definitively rule out aspiration for all the above mentioned trials due to patient's body habitus - the vocal folds and trachea were in view during the swallow, but not before or after the swallow for many of the trials. The oral phase is primarily marked by... -Decreased bolus control with <1/2 of the bolus spilling posteriorly to the posterior surface of the epiglottis prior to swallow onset observed only with sequential thin liquids by cup. -Delayed tongue motion observed only with sequential thin liquids by cup. -Decreased mastication abilities observed with cookie with portion of cookie appearing unchewed during the swallow. The pharyngeal phase is primarily marked by... -Mildly decreased airway closure during the swallow due to mildly decreased anterior hyoid excursion and mildly decreased laryngeal elevation. -No aspiration observed during the study. Laryngeal penetration with large, sequential sips of thin liquids via cup that did not reliably eject from the laryngeal vestibule after the swallow. Decreased bolus size was most effective in decreasing laryngeal penetration. - Recommendations Diet: Mechanical Soft Textures - Minced and Moist Textures (IDDSI Level 5), Thin Liquids Compensatory Strategies: Small Bites, Small Sips, Slow Rate, Sitting upright, Remain sitting upright for 30 minutes after PO intake, Assist with verbal cues to use recommended strategies Supervision: 1:1 Close Supervision Recommend Repeat Modified Barium Swallow: TBD Need for Skilled Speech Therapy Services: Yes Comment: Will recommend the patient for continued dysphagia therapy to address mild-moderate deficits in oropharyngeal swallow function. Will recommend the patient for oropharyngeal strengthening to improve laryngeal elevation, hyoid excursion, and duration of UES opening (CTAR, Michael). Will recommend trials of soft solids with COIL WINDING SUPERVISOR in upcoming sessions as deemed clinically appropriate by treating COIL WINDING SUPERVISOR to determine appropriateness for diet advancement of solids at bedside. The patient would benefit from thorough education regarding diet recommendations and recommended compensatory strategies. Education Completed: 1. Described result of evaluation. - Status Active ST Patient: Active - Contact Information [facility] Speech Therapy:: Kat Márquez M.A. [facility]-COIL WINDING SUPERVISOR Speech-Language Pathologist [facility] [address] [place] [address] [email or web address] [phone] 07/30/22 12:17
--- NOTE | 2022-07-30 09:56 | PCM.PN.ID ---
Physical Exam Narrative Feeling ok, no fever, denies vision changes. Const no apparent distress General Appearance: cooperative Resp Auscultation: rhonchi Cardio regular rate and regular rhythm GI soft to palpation, non-tender and non-distended Extremity General Extremity: edema Skin Skin Narrative: feet wrapped. 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 Followed by podiatry. Taken to OR 07/22/[address] Babin for bilat feet I&D. Surg cx with MRSA, proteus, kocuria, anaerobes. TTE now with aortic valve veg. L TMA planned. Fever resolved. Now with repeat bcx from picc with staph aureus and yeast. Recommend line holiday if possible. Will start micafungin stat, check repeat bcx today and tomorrow. Will follow, d/w Dr. Baca (4) MRSA bacteremia: (5) Endocarditis: (6) Candidemia:
[2022-07-30 11:30] LABS: Bedside Glucose 178 mg/dL (74-106)
--- NOTE | 2022-07-30 16:35 | PCA ---
Called [facility] pt still on the list for a bed. Still no beds at this time.
[2022-07-30 18:00] LABS: Bedside Glucose 182 mg/dL (74-106)
[2022-07-30 21:06] LABS: Bedside Glucose 164 mg/dL (74-106)
[2022-07-31] VITALS (25 sets, daily range): BP systolic 114–152; BP diastolic 38–63; PULSE 79–94; RESP 17–27; TEMP 36.6–37.2; O2SAT 90–100
--- NOTE | 2022-07-31 00:57 | CPS ---
Patient refuses PAP at this time
[2022-07-31 03:50] LABS: Differential Indicated MANUAL DIFF; Hematocrit 33.5 % (40-54); Hemoglobin 10.5 g/dL (13.0-16.5); Mean Corp Hgb Conc 31.3 g/dL (32-36); Mean Corpuscular Hgb 26.5 pg (27.0-32.0); Mean Corpuscular Volume 84.6 fL (80-94); Mean Platelet Vol. 11.7 fl (6.2-12.0); POSITIVE COUNT YES; POSITIVE MORPHOLOGY YES; Platelet Count 117 K/mm3 (150-450); RBC Distribution Width CV 16.8 % (11.6-14.6); RBC Distribution Width SD 50.4 fl (35.1-43.9); Red Blood Count 3.96 M/mm3 (4.6-6.2); White Blood Count 23.8 K/mm3 (4.4-11.0)
[2022-07-31 04:05] LABS: Total Cells Counted 100 (MANUAL DIFF)
[2022-07-31 04:06] LABS: Lymphocyte 4 % (19-41); Metamyelocyte 2 % (0-1); Monocyte 2 % (0-10); Myelocyte 7 % (0-0); Neutrophil-Band 3 % (0-5); Neutrophil-Segmented 82 % (47-70)
[2022-07-31 04:07] LABS: Platelet Estimate SLT DEC (ADEQ)
[2022-07-31 04:08] LABS: Absolute Neutrophil Count 20.2 X10^3/uL (2.0-7.7); Hypochromasia 1+; Neutrophil # 20.23 X10^3/uL (2.7-7.7); Red Cell Morphology N CYTIC NORMAL (NORM C&C)
[2022-07-31 04:09] LABS: Absolute Lymphocyte Count 0.95 X10^3/uL (0.83-4.51); Lymphocyte # 0.95 X10^3/ul (0.83-4.51)
[2022-07-31 05:03] LABS: ALB/GLOB Ratio 0.4 RATIO (0.9-2.4); AST(SGOT) 97 U/L (15-37); Alanine Aminotransfer ALT/SGPT 298 U/L (16-61); Albumin, Serum 1.7 g/dL (3.2-5.0); Alkaline Phosphatase 78 U/L (45-117); Anion Gap 18 (5-15); BUN 89 mg/dL (7-18); BUN/Creat Ratio 8.2 RATIO (10-20); Calcium,Total 6.4 mg/dL (8.5-10.1); Chloride 103 mmol/L (98-107); EST Glomerular Filtration Rate 5 mL/min (>60); Est Glom Filt Rate - Afr Amer 7 mL/min (>60); Estimated Creatinine Clearance 8.26 ml/min; Globulin 4.7 g/dL (2.2-4.2); Glucose 188 mg/dL (74-106); Phosphorus 9.4 mg/dL (2.5-4.9); Potassium 3.9 mmol/L (3.5-5.1); Protein, Total 6.4 g/dL (6.4-8.2); Sodium Level 140 mmol/L (136-145)
--- NOTE | 2022-07-31 07:51 | PCM.PN.INT ---
Assessment & Plan Assessment/Plan (1) Sepsis: PLAN: Plan RECOMMENDATIONS: 1. Antimicrobials per infectious diseases. 2. Continue local wound care. Podiatry considering possible amputation 3. Reinitiate Levophed if needed. Monitored through dialysis 4. Dialysis support per nephrology recommendations. Volume removal if possible 5. Speech therapy to evaluate swallow 6. Await transfer to a tertiary center for aortic valve evaluation 7. Potential transfer from the intensive care unit if able to tolerate dialysis without pressors IMPRESSIONS: 1. Septic shock with aortic valve vegetation The patient presented to the hospital with sepsis due to osteomyelitis with secondary MRSA, among others, bacteremia and acute sepsis related organ dysfunction as evidenced by lactic acidemia and hemodynamic instability requiring vasopressor support. The patient remains on antimicrobials under the discretion of infectious diseases, but continues to have persistently positive blood cultures. The patient did ultimately undergo surgical debridement under the discretion of podiatry on July 22, but podiatry is suggesting that an amputation may be necessary. Echocardiogram did not reveal any valvular vegetations initially, but repeat echo shows an aortic valve vegetation. Patient is currently awaiting a bed at [facility] for definitive evaluation. We will monitor patient in the intensive care unit until after dialysis 2. Acute kidney injury Most likely prerenal in etiology in the setting of #1, with gradual evolution to ATN. Nephrology is following to assist with medical management. Renal ultrasound was unremarkable. Continue dialysis support per nephrology recommendations. Patient would benefit from volume removal if possible. Patient may require some bicarbonate, but defer to nephrology 3. Encephalopathy Improving. Most likely metabolic in etiology and related to underlying infection and renal dysfunction. The patient does have a tendency to retain CO2. Therefore, BiPAP therapy will be appropriate with naps and sleep. I would strongly advise against the use of morphine in a patient with underlying renal dysfunction. Out of bed as tolerated to possible. Off Precedex. 4. Chronic tobacco dependency without diagnosis of COPD Although the patient has a longstanding tobacco abuse history, he denied ever having been diagnosed with COPD. It is reasonable to continue as needed bronchodilator therapy. Recommend weaning supplemental oxygen as tolerated for saturations greater than 90%. Nicotine replacement therapy can be offered to the patient while admitted to the hospital. 5. History of osteomyelitis with Charcot arthropathy/hypertension/hyperlipidemia/morbid obesity/diabetes mellitus Complicates care, management, recovery and prognosis. Continue sliding scale insulin coverage. Subjective Subjective Patient did well overnight. No acute issues were reported. Patient has been more directable. Patient did not receive hemodialysis yesterday. Patient did have bowel movements overnight. Patient continues to await a bed at [facility] for evaluation of aortic valve. Objective Data Objective Data Vital Signs: Vital Signs Temp Pulse Resp BP Pulse Ox O2 Del Method O2 Flow Rate 36.6 C 79 18 132/49 H 99 Room Air 2 07/31/22 00:00 07/31/22 07:00 07/31/22 07:00 07/31/22 07:00 07/31/22 07:00 07/31/22 07:00 07/29/22 16:00 FiO2 95 07/29/22 17:45 Oxygen Flow Rate (L/min) 2 Oxygen Delivery Method Room Air Weight: 183.5 kg Body Mass Index (BMI) 55.0 Intake & Output: Intake and Output for Last 24 Hours 07/29/22 07/30/22 07/31/22 23:59 23:59 23:59 Intake Total 1068.44 / 1070.79 296.75 / 296.75 300 / 300 Output Total 0 / 0 0 / 0 0 / 0 Balance 1068.44 / 1070.79 296.75 / 296.75 300 / 300 Lab / Micro Data Attestation: I reviewed the patient's lab results. Result Diagrams: 07/31/22 03:40 07/31/22 03:40 Labs: Laboratory Results - last 24 hr 07/30/22 08:23: POC Glucose 158 H 07/30/22 11:06: POC Glucose 178 H 07/30/22 16:08: POC Glucose 182 H 07/30/22 20:42: POC Glucose 164 H 07/31/22 03:40: WBC 23.8 H, RBC 3.96 L, Hgb 10.5 L, Hct 33.5 L, MCV 84.6, MCH 26.5 L, MCHC 31.3 L, RDW Std Deviation 50.4 H, RDW Coeff of Maria Fernanda 16.8 H, Plt Count 117 L, MPV 11.7, Neut % (Auto) Not Reportable, Absolute Neuts (auto) 20.2 H, Absolute Lymphs (auto) 0.95, Total Counted 100, Neutrophils % (Manual) 82 H, Band Neutrophils % 3, Lymphocytes % (Manual) 4 L, Monocytes % (Manual) 2, Metamyelocytes % 2 H, Myelocytes % 7 H, Diff Path Review May foll, Platelet Estimate SLT DEC, RBC Morphology N CYTIC, Hypochromasia 1+ 07/31/22 03:40: Sodium 140, Potassium 3.9, Chloride 103, Carbon Dioxide 19.0 L, Anion Gap 18 H, BUN 89 H, Creatinine 10.80 H*, Estim Creat Clear Calc 8.26, Est GFR (MDRD) Af Amer 7 L, Est GFR (MDRD) Non-Af 5 L, BUN/Creatinine Ratio 8.2 L, Glucose 188 H, Calcium 6.4 L*, Phosphorus 9.4 H*, Total Bilirubin 0.60, AST 97 H, ALT 298 H, Alkaline Phosphatase 78, Total Protein 6.4, Albumin 1.7 L, Globulin 4.7 H, Albumin/Globulin Ratio 0.4 L Micro: Microbiology 07/28/22 10:50 Blood Culture (Wb) - Pic Blood Culture - Preliminary Meth. resistant Staph. aureus Yeast 07/29/22 13:03 Blood Culture (Wb) - Right Forearm Blood Culture - Preliminary Staphylococcus aureus 07/25/22 09:50 Blood Culture (Wb) - Anticubital Right Blood Culture - Final Staphylococcus aureus 07/27/22 13:05 Blood Culture (Wb) - Right Forearm Blood Culture - Preliminary No growth in 48 hours. 07/29/22 16:00 Stool C. difficile DNA Amplification - Final 07/24/22 10:40 Blood Culture (Wb) - Anticubital Right Blood Culture - Final No growth in 5 days. 07/22/22 16:39 Bone - Right Foot Gram Stain - Final 07/22/22 16:39 Bone - Right Foot Wound Culture - Final No growth aerobically. 07/22/22 16:39 Bone - Right Foot Anaerobic Culture - Final Anaerobic cocci 07/22/22 16:37 Wound Abcess - Right Foot Gram Stain - Final 07/22/22 16:37 Wound Abcess - Right Foot Wound Culture - Final Meth. resistant Staph. aureus 07/22/22 16:37 Wound Abcess - Right Foot Anaerobic Culture - Final Anaerobic cocci 07/22/22 16:35 Bone - Left Foot Gram Stain - Final 07/22/22 16:35 Bone - Left Foot Wound Culture - Final Meth. resistant Staph. aureus 07/22/22 16:35 Bone - Left Foot Anaerobic Culture - Final No anaerobic bacteria isolated. 07/22/22 16:32 Wound Abcess - Left Foot Gram Stain - Final 07/22/22 16:32 Wound Abcess - Left Foot Wound Culture - Final Meth. resistant Staph. aureus 07/22/22 16:32 Wound Abcess - Left Foot Anaerobic Culture - Final No anaerobic bacteria isolated. 07/21/22 11:00 Wound - Left Foot Gram Stain - Final 07/21/22 11:00 Wound - Left Foot Wound Culture - Final Proteus mirabilis Kocuria kristinae 07/21/22 11:00 Wound - Left Foot Anaerobic Culture - Final Bacteroides thetaiotaomicron 07/21/22 09:30 Bone - Left Foot Gram Stain - Final 07/21/22 09:30 Bone - Left Foot Wound Culture - Final Proteus mirabilis Kocuria kristinae 07/21/22 09:30 Bone - Left Foot Anaerobic Culture - Final Bacteroides thetaiotaomicron Anaerobic cocci 07/23/22 10:50 Blood Culture (Wb) - Right Hand Blood Culture - Final Meth. resistant Staph. aureus 07/22/22 09:50 Blood Culture (Wb) - Right Hand Blood Culture - Final Staphylococcus aureus 07/20/22 14:55 Blood Culture (Wb) - Anticubital Right Bacteria Detection (PCR) - Final Meth. resistant Staph. aureus 07/20/22 14:55 Blood Culture (Wb) - Anticubital Right Blood Culture - Final Meth. resistant Staph. aureus 07/20/22 14:45 Blood Culture (Wb) - Left Hand Blood Culture - Final Staphylococcus aureus 07/20/22 18:10 Urine, Catheterized Urine Culture - Final Citrobacter freundii 07/20/22 19:47 Mucosa - Nasopharyngeal Respiratory Panel (PCR) - Final 07/20/22 18:10 Urine, Random Legionella Antigen - Final 07/20/22 18:10 Urine, Random Streptococcus pneumoniae Antigen (M - Final 07/20/22 13:55 Nasal Secretion SARS-CoV-2 & FLU Antigen (Rapid) - Final Physical Exam Const alert and no apparent distress Constitutional Narrative: The patient is impulsive. Interacts intermittently to follow commands. Able to hold a conversation slightly longer and more appropriate today General Appearance: cooperative Nutritional Appearance: morbidly obese HEENT normocephalic, head/scalp atraumatic and moist oral mucous membranes Eyes PERRL, EOMs intact bilaterally and conjunctivae normal Neck supple General: trachea midline and CVC in place Chest inspection of chest normal Resp Auscultation: diminished lung sounds; Negative for rales, rhonchi or wheezes Cardio regular rate, regular rhythm, S1 normal heart sound, S2 normal heart sound, no rub and no gallops Heart Sounds: murmur systolic II/ soft early left sternal border GI normal to inspection, nondistended, normoactive bowel sounds Extremity Extremity Narrative: Wrapped lower extremities. General Extremity: edema; Negative for clubbing Skin General Skin Exam: venous stasis and dermatitis Neuro CN's II-XII intact bilaterally, moves all extremities and no focal motor deficits Psych Psych Narrative: Patient directable when in the room, but intermittently impulsive when left alone Activity / Motor Behavior: restless Charges/Coding Visit Charges Inpatient E&M: [id number] [facility] Hosp L3
[2022-07-31] MEDS: Insulin Lispro 100 UNIT/ML INSULN.PEN SC ×3 (08:21→22:20)
--- NOTE | 2022-07-31 08:29 | PCM.PN.REN ---
Subjective Subjective Following for dialysis requiring ZACARIAS Patient resting quietly in bed. No overnight events. Alert to name. Objective Data Objective Data Vital Signs: Vital Signs Temp Pulse Resp BP Pulse Ox O2 Del Method O2 Flow Rate 97.8 F 79 18 132/49 H 99 Room Air 2 07/31/22 00:00 07/31/22 07:00 07/31/22 07:00 07/31/22 07:00 07/31/22 07:00 07/31/22 07:00 07/29/22 16:00 FiO2 95 07/29/22 17:45 Oxygen Flow Rate (L/min) 2 Oxygen Delivery Method Room Air Weight: 183.5 kg Body Mass Index (BMI) 55.0 Intake & Output: Intake and Output for Last 24 Hours 07/29/22 07/30/22 07/31/22 23:59 23:59 23:59 Intake Total 1068.44 / 1070.79 296.75 / 296.75 300 / 300 Output Total 0 / 0 0 / 0 0 / 0 Balance 1068.44 / 1070.79 296.75 / 296.75 300 / 300 Lab / Micro Data Result Diagrams: 07/31/22 03:40 07/31/22 03:40 Labs: Laboratory Results - last 24 hr 07/30/22 08:23: POC Glucose 158 H 07/30/22 11:06: POC Glucose 178 H 07/30/22 16:08: POC Glucose 182 H 07/30/22 20:42: POC Glucose 164 H 07/31/22 03:40: WBC 23.8 H, RBC 3.96 L, Hgb 10.5 L, Hct 33.5 L, MCV 84.6, MCH 26.5 L, MCHC 31.3 L, RDW Std Deviation 50.4 H, RDW Coeff of Maria Fernanda 16.8 H, Plt Count 117 L, MPV 11.7, Neut % (Auto) Not Reportable, Absolute Neuts (auto) 20.2 H, Absolute Lymphs (auto) 0.95, Total Counted 100, Neutrophils % (Manual) 82 H, Band Neutrophils % 3, Lymphocytes % (Manual) 4 L, Monocytes % (Manual) 2, Metamyelocytes % 2 H, Myelocytes % 7 H, Diff Path Review May foll, Platelet Estimate SLT DEC, RBC Morphology N CYTIC, Hypochromasia 1+ 07/31/22 03:40: Sodium 140, Potassium 3.9, Chloride 103, Carbon Dioxide 19.0 L, Anion Gap 18 H, BUN 89 H, Creatinine 10.80 H*, Estim Creat Clear Calc 8.26, Est GFR (MDRD) Af Amer 7 L, Est GFR (MDRD) Non-Af 5 L, BUN/Creatinine Ratio 8.2 L, Glucose 188 H, Calcium 6.4 L*, Phosphorus 9.4 H*, Total Bilirubin 0.60, AST 97 H, ALT 298 H, Alkaline Phosphatase 78, Total Protein 6.4, Albumin 1.7 L, Globulin 4.7 H, Albumin/Globulin Ratio 0.4 L Micro: Microbiology 07/29/22 13:03 Blood Culture (Wb) - Right Forearm Blood Culture - Preliminary Staphylococcus aureus 07/28/22 10:50 Blood Culture (Wb) - Pic Blood Culture - Preliminary Meth. resistant Staph. aureus Yeast 07/25/22 09:50 Blood Culture (Wb) - Anticubital Right Blood Culture - Final Staphylococcus aureus 07/27/22 13:05 Blood Culture (Wb) - Right Forearm Blood Culture - Preliminary No growth in 48 hours. 07/29/22 16:00 Stool C. difficile DNA Amplification - Final 07/24/22 10:40 Blood Culture (Wb) - Anticubital Right Blood Culture - Final No growth in 5 days. 07/22/22 16:39 Bone - Right Foot Gram Stain - Final 07/22/22 16:39 Bone - Right Foot Wound Culture - Final No growth aerobically. 07/22/22 16:39 Bone - Right Foot Anaerobic Culture - Final Anaerobic cocci 07/22/22 16:37 Wound Abcess - Right Foot Gram Stain - Final 07/22/22 16:37 Wound Abcess - Right Foot Wound Culture - Final Meth. resistant Staph. aureus 07/22/22 16:37 Wound Abcess - Right Foot Anaerobic Culture - Final Anaerobic cocci 07/22/22 16:35 Bone - Left Foot Gram Stain - Final 07/22/22 16:35 Bone - Left Foot Wound Culture - Final Meth. resistant Staph. aureus 07/22/22 16:35 Bone - Left Foot Anaerobic Culture - Final No anaerobic bacteria isolated. 07/22/22 16:32 Wound Abcess - Left Foot Gram Stain - Final 07/22/22 16:32 Wound Abcess - Left Foot Wound Culture - Final Meth. resistant Staph. aureus 07/22/22 16:32 Wound Abcess - Left Foot Anaerobic Culture - Final No anaerobic bacteria isolated. 07/21/22 11:00 Wound - Left Foot Gram Stain - Final 07/21/22 11:00 Wound - Left Foot Wound Culture - Final Proteus mirabilis Kocuria kristinae 07/21/22 11:00 Wound - Left Foot Anaerobic Culture - Final Bacteroides thetaiotaomicron 07/21/22 09:30 Bone - Left Foot Gram Stain - Final 07/21/22 09:30 Bone - Left Foot Wound Culture - Final Proteus mirabilis Kocuria kristinae 07/21/22 09:30 Bone - Left Foot Anaerobic Culture - Final Bacteroides thetaiotaomicron Anaerobic cocci 07/23/22 10:50 Blood Culture (Wb) - Right Hand Blood Culture - Final Meth. resistant Staph. aureus 07/22/22 09:50 Blood Culture (Wb) - Right Hand Blood Culture - Final Staphylococcus aureus 07/20/22 14:55 Blood Culture (Wb) - Anticubital Right Bacteria Detection (PCR) - Final Meth. resistant Staph. aureus 07/20/22 14:55 Blood Culture (Wb) - Anticubital Right Blood Culture - Final Meth. resistant Staph. aureus 07/20/22 14:45 Blood Culture (Wb) - Left Hand Blood Culture - Final Staphylococcus aureus 07/20/22 18:10 Urine, Catheterized Urine Culture - Final Citrobacter freundii 07/20/22 19:47 Mucosa - Nasopharyngeal Respiratory Panel (PCR) - Final 07/20/22 18:10 Urine, Random Legionella Antigen - Final 07/20/22 18:10 Urine, Random Streptococcus pneumoniae Antigen (M - Final 07/20/22 13:55 Nasal Secretion SARS-CoV-2 & FLU Antigen (Rapid) - Final Physical Exam Narrative General: Less agitated, confused. Alert to name. No apparent distress HEENT: Normocephalic. Heart: Normal S1, S2. Lungs: Diminished lung sounds; Negative for rales, rhonchi or wheezes. On room air Abdomen: Normal bowel sounds, soft, nontender. Extremity: 1+ lower extremity edema. Non-tunneled temporary right IJ dialysis catheter dressing clean, dry and intact Assessment & Plan Assessment/Plan (1) ZACARIAS (acute kidney injury): (2) Hyponatremia: (3) Sepsis: PLAN: Plan - Initially nonoliguric acute kidney injury likely prerenal from sepsis now evolved to ATN.?Another possible cause of ZACARIAS could be from nephrotoxic ATN from vancomycin (elevated vanco levels).? Off lisinopril.? Serum creatinine was 1.29 mg/dL on admission (07/20).? Patient is now essentially anuric. Patient had been having difficult time tolerating dialysis due to agitation. Last dialysis 07/29 with no UF due to hypotension, but treatment cut short due to agitation. - Pre-HD serum creatinine 10.80 mg/dL today, no urine output documented last 12 hours, will plan for dialysis today over 4 hours on 3K bath and attempt 1 to 2 L fluid removal as blood pressure will tolerate. Since blood pressure seems to be improving we should be able to remove more fluid with dialysis. -First HD 07/24 (serum creatinine 7.11 mg/dL). Temporary HD catheter placed 07/24. - metabolic acidosis from ZACARIAS and should improve with adequate dialysis. No need for IV bicarb replacement at this time - Baseline serum creatinine appears to be around 1.10 mg/dL. C3 normal, C4 slightly low at 11. Renal ultrasound did not show any hydronephrosis. - bps improved and patient has been off pressors for over 24 hours - Septic shock secondary to MRSA. Underwent bilateral feet I&D, surgical culture MRSA, Proteus. On daptomycin and Zosyn per ID. Repeat blood cultures from PICC with staph aureus and yeast. Started micafungin. Antimicrobial treatment as per infectious disease service. - echo aortic valve vegetation. Awaiting bed at [facility].
[2022-07-31 08:45] LABS: Bedside Glucose 191 mg/dL (74-106)
--- NOTE | 2022-07-31 09:42 | CASEMGMT ---
ASHLEY PAZ NOTE: Still awaiting bed @ [facility] Main campus for transfer. TC to Rosa @ [facility] to notify her of cancellation of referral for OP HD. [facility] and she was also notified of same. Adriano MTZ RN CM
--- NOTE | 2022-07-31 09:54 | PCM.PN.HOSP ---
Subjective Subjective Follow-up for septic shock/MRSA bacteremia/ZACARIAS/osteomyelitis: Patient was seen and examined.? Patient's confusion appears to be slightly better. He is currently on dialysis today. Awaiting transfer to the [facility]. Objective Data Objective Data Vital Signs: Vital Signs Temp Pulse Resp BP Pulse Ox O2 Del Method O2 Flow Rate 97.8 F 79 18 132/49 H 99 Room Air 2 07/31/22 00:00 07/31/22 07:00 07/31/22 07:00 07/31/22 07:00 07/31/22 07:00 07/31/22 08:00 07/29/22 16:00 FiO2 95 07/29/22 17:45 Oxygen Flow Rate (L/min) 2 Oxygen Delivery Method Room Air Weight: 183.5 kg Body Mass Index (BMI) 55.0 Intake & Output: Intake and Output for Last 24 Hours 07/29/22 07/30/22 07/31/22 23:59 23:59 23:59 Intake Total 1068.44 / 1070.79 296.75 / 296.75 300 / 300 Output Total 0 / 0 0 / 0 0 / 0 Balance 1068.44 / 1070.79 296.75 / 296.75 300 / 300 Lab / Micro Data Result Diagrams: 07/31/22 03:40 07/31/22 03:40 Labs: Laboratory Results - last 24 hr 07/30/22 11:06: POC Glucose 178 H 07/30/22 16:08: POC Glucose 182 H 07/30/22 20:42: POC Glucose 164 H 07/31/22 03:40: WBC 23.8 H, RBC 3.96 L, Hgb 10.5 L, Hct 33.5 L, MCV 84.6, MCH 26.5 L, MCHC 31.3 L, RDW Std Deviation 50.4 H, RDW Coeff of Maria Fernanda 16.8 H, Plt Count 117 L, MPV 11.7, Neut % (Auto) Not Reportable, Absolute Neuts (auto) 20.2 H, Absolute Lymphs (auto) 0.95, Total Counted 100, Neutrophils % (Manual) 82 H, Band Neutrophils % 3, Lymphocytes % (Manual) 4 L, Monocytes % (Manual) 2, Metamyelocytes % 2 H, Myelocytes % 7 H, Diff Path Review May foll, Platelet Estimate SLT DEC, RBC Morphology N CYTIC, Hypochromasia 1+ 07/31/22 03:40: Sodium 140, Potassium 3.9, Chloride 103, Carbon Dioxide 19.0 L, Anion Gap 18 H, BUN 89 H, Creatinine 10.80 H*, Estim Creat Clear Calc 8.26, Est GFR (MDRD) Af Amer 7 L, Est GFR (MDRD) Non-Af 5 L, BUN/Creatinine Ratio 8.2 L, Glucose 188 H, Calcium 6.4 L*, Phosphorus 9.4 H*, Total Bilirubin 0.60, AST 97 H, ALT 298 H, Alkaline Phosphatase 78, Total Protein 6.4, Albumin 1.7 L, Globulin 4.7 H, Albumin/Globulin Ratio 0.4 L 07/31/22 08:18: POC Glucose 191 H Micro: Microbiology 07/29/22 13:03 Blood Culture (Wb) - Right Forearm Blood Culture - Preliminary Staphylococcus aureus 07/28/22 10:50 Blood Culture (Wb) - Pic Blood Culture - Preliminary Meth. resistant Staph. aureus Yeast 07/25/22 09:50 Blood Culture (Wb) - Anticubital Right Blood Culture - Final Staphylococcus aureus 07/27/22 13:05 Blood Culture (Wb) - Right Forearm Blood Culture - Preliminary No growth in 48 hours. 07/29/22 16:00 Stool C. difficile DNA Amplification - Final 07/24/22 10:40 Blood Culture (Wb) - Anticubital Right Blood Culture - Final No growth in 5 days. 07/22/22 16:39 Bone - Right Foot Gram Stain - Final 07/22/22 16:39 Bone - Right Foot Wound Culture - Final No growth aerobically. 07/22/22 16:39 Bone - Right Foot Anaerobic Culture - Final Anaerobic cocci 07/22/22 16:37 Wound Abcess - Right Foot Gram Stain - Final 07/22/22 16:37 Wound Abcess - Right Foot Wound Culture - Final Meth. resistant Staph. aureus 07/22/22 16:37 Wound Abcess - Right Foot Anaerobic Culture - Final Anaerobic cocci 07/22/22 16:35 Bone - Left Foot Gram Stain - Final 07/22/22 16:35 Bone - Left Foot Wound Culture - Final Meth. resistant Staph. aureus 07/22/22 16:35 Bone - Left Foot Anaerobic Culture - Final No anaerobic bacteria isolated. 07/22/22 16:32 Wound Abcess - Left Foot Gram Stain - Final 07/22/22 16:32 Wound Abcess - Left Foot Wound Culture - Final Meth. resistant Staph. aureus 07/22/22 16:32 Wound Abcess - Left Foot Anaerobic Culture - Final No anaerobic bacteria isolated. 07/21/22 11:00 Wound - Left Foot Gram Stain - Final 07/21/22 11:00 Wound - Left Foot Wound Culture - Final Proteus mirabilis Kocuria kristinae 07/21/22 11:00 Wound - Left Foot Anaerobic Culture - Final Bacteroides thetaiotaomicron 07/21/22 09:30 Bone - Left Foot Gram Stain - Final 07/21/22 09:30 Bone - Left Foot Wound Culture - Final Proteus mirabilis Kocuria kristinae 07/21/22 09:30 Bone - Left Foot Anaerobic Culture - Final Bacteroides thetaiotaomicron Anaerobic cocci 07/23/22 10:50 Blood Culture (Wb) - Right Hand Blood Culture - Final Meth. resistant Staph. aureus 07/22/22 09:50 Blood Culture (Wb) - Right Hand Blood Culture - Final Staphylococcus aureus 07/20/22 14:55 Blood Culture (Wb) - Anticubital Right Bacteria Detection (PCR) - Final Meth. resistant Staph. aureus 07/20/22 14:55 Blood Culture (Wb) - Anticubital Right Blood Culture - Final Meth. resistant Staph. aureus 07/20/22 14:45 Blood Culture (Wb) - Left Hand Blood Culture - Final Staphylococcus aureus 07/20/22 18:10 Urine, Catheterized Urine Culture - Final Citrobacter freundii 07/20/22 19:47 Mucosa - Nasopharyngeal Respiratory Panel (PCR) - Final 07/20/22 18:10 Urine, Random Legionella Antigen - Final 07/20/22 18:10 Urine, Random Streptococcus pneumoniae Antigen (M - Final 07/20/22 13:55 Nasal Secretion SARS-CoV-2 & FLU Antigen (Rapid) - Final Physical Exam Narrative Physical exam: General: Alert, sedated, Cooperative, morbidly obese, off oxygen HEENT: Atraumatic Oral: Moist Mucosa Neck: Supple Lungs: Diminished to auscultation Cardiovascular: HS I+II, regular, no murmurs Abdomen: Bowel Sounds Present, Soft, Non Tender Extremities: Jens wraps to both lower extremities, duskiness of toes Skin: No rashes, No breakdown Neurological: Grossly intact Psych/Mental Status: Appropriate Assessment & Plan Assessment/Plan (1) ZACARIAS (acute kidney injury): (2) Osteomyelitis of left foot: PLAN: Plan 1. 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 Acute combined respiratory failure, likely secondary to septic emboli, resolved, off oxygen Continue with antibiotics, breathing treatments Gas Shovel Operator following 3. Acute right popliteal, tibioperoneal trunk and gastrocnemius vein DVT, continue heparin drip 4. Acute kidney injury likely secondary to ATN from above Admitting creatinine was 1.29 Started on hemodialysis on 07/25/2021; Nephrology following Trend labs 5. Acute metabolic encephalopathy secondary to above #1 and 4, persistent Continue on Seroquel 6. Hypertension, now in septic shock, management as an #1 7. Type II DM, HbA1c is 11.2, blood sugars remain fairly controlled, Continue Lantus 5 units BID, Continue with medium to high dose insulin sliding scale with blood glucose checks 8. Rest of chronic medical conditions including GERD/KRYSTAL, complicates care Continue famotidine IV 20mg daily 9. DVT PPx- On heparin drip Charges/Coding Visit Charges Inpatient E&M: 19632 Subs Hosp L3
[2022-07-31] MEDS: Menthol/Lanolin/Calamine/Znox 113 GM Tube 1 APPLIC TOPICAL ×4 (10:00→22:21)
[2022-07-31] MEDS: Acetaminophen 325 MG Tablet 650 MG PO (10:03)
[2022-07-31 10:08] LABS: Pathologist Review Reviewed
[2022-07-31] MEDS: Haloperidol Lactate 5 MG/ML Vial 3 MG IM (10:28)
[2022-07-31] MEDS: QUEtiapine 100 MG Tablet PO ×2 (10:29→22:19)
--- NOTE | 2022-07-31 11:55 | DIALYSIS ---
Dialysis tx ended after 3 hours 15 minutes of 4 hour tx. Unable to complete tx as pt agitated and restless throughout tx despite getting multiple doses of haldol. CVC extremely sensitive to position and pt movement that ultimately caused stoppage of tx as BFR was less than 150. Would recommend change of access before attempting next dialysis session. Nephrology aware.
--- NOTE | 2022-07-31 12:43 | PCM.PN.ID ---
Physical Exam Narrative Feeling ok, no fever, no abd pain Const alert and no apparent distress Resp normal air movement and clear to auscultation bilaterally Cardio regular rate and regular rhythm GI soft to palpation, non-tender and non-distended Extremity General Extremity: edema Skin Skin Narrative: feet wrapped ID ID: Route of nutrition/ use of supplements: [] Nutritional Intake: [] IV Site: [] [place] Catheter: [] Assessment & Plan Assessment/Plan (1) Osteomyelitis: QUALIFIERS: Osteomyelitis type: other acute Osteomyelitis location: foot Laterality: right Qualified Code(s): M86.171 - Other acute osteomyelitis, right ankle and foot (2) Type 2 diabetes mellitus with diabetic polyneuropathy: QUALIFIERS: Diabetes mellitus predatory animal exterminator insulin use: unspecified predatory animal exterminator insulin use status Qualified Code(s): E11.42 - Type 2 diabetes mellitus with diabetic polyneuropathy (3) Sepsis: PLAN: sepsis due to MRSA bacteremia from L foot osteo with h/o DM neuropathy - on dapto/zosyn. Followed by podiatry. Taken to OR 07/22/[address] Babin for bilat feet I&D. Surg cx with MRSA, proteus, kocuria, anaerobes. TTE now with aortic valve veg. L TMA planned. Fever resolved. Now with repeat bcx from picc with staph aureus and yeast. Recommend line holiday if possible. 07/30 added micafungin, adding ceftaroline. Will follow, d/w Dr. Baac (4) MRSA bacteremia: (5) Endocarditis: (6) Candidemia:
[2022-07-31] MEDS: Insulin Glargine-YFGN 100 UNIT/ML Pen SC ×2 (12:51→22:19)
[2022-07-31] MEDS: 0.9% Saline Lock 10 ML Syringe IV (13:59)
[2022-07-31] MEDS: Famotidine 20 MG Tablet PO (13:59)
--- NOTE | 2022-07-31 14:26 | PN_ITS ---
Subjective Subjective Patient seen today in bed snoring. Patient did not want to be woken. Stated he wanted to sleep. Stated he just feels unwell. Objective Data Objective Data Vital Signs: Vital Signs Temp Pulse Resp BP Pulse Ox O2 Del Method O2 Flow Rate 97.8 F 79 18 132/49 H 99 Room Air 2 07/31/22 00:00 07/31/22 07:00 07/31/22 07:00 07/31/22 07:00 07/31/22 07:00 07/31/22 08:00 07/29/22 16:00 FiO2 95 07/29/22 17:45 Oxygen Flow Rate (L/min) 2 Oxygen Delivery Method Room Air Weight: 183.5 kg Body Mass Index (BMI) 55.0 Intake & Output: Intake and Output for Last 24 Hours 07/29/22 07/30/22 07/31/22 23:59 23:59 23:59 Intake Total 1068.44 / 1070.79 296.75 / 296.75 300 / 300 Output Total 0 / 0 0 / 0 0 / 0 Balance 1068.44 / 1070.79 296.75 / 296.75 300 / 300 Lab / Micro Data Result Diagrams: 07/31/22 03:40 07/31/22 03:40 Labs: Laboratory Results - last 24 hr 07/30/22 03:20: Diff Path Review Reviewed 07/30/22 16:08: POC Glucose 182 H 07/30/22 20:42: POC Glucose 164 H 07/31/22 03:40: WBC 23.8 H, RBC 3.96 L, Hgb 10.5 L, Hct 33.5 L, MCV 84.6, MCH 26.5 L, MCHC 31.3 L, RDW Std Deviation 50.4 H, RDW Coeff of Maria Fernanda 16.8 H, Plt Count 117 L, MPV 11.7, Neut % (Auto) Not Reportable, Absolute Neuts (auto) 20.2 H, Absolute Lymphs (auto) 0.95, Total Counted 100, Neutrophils % (Manual) 82 H, Band Neutrophils % 3, Lymphocytes % (Manual) 4 L, Monocytes % (Manual) 2, Metamyelocytes % 2 H, Myelocytes % 7 H, Diff Path Review May foll, Platelet Estimate SLT DEC, RBC Morphology N CYTIC, Hypochromasia 1+ 07/31/22 03:40: Sodium 140, Potassium 3.9, Chloride 103, Carbon Dioxide 19.0 L, Anion Gap 18 H, BUN 89 H, Creatinine 10.80 H*, Estim Creat Clear Calc 8.26, Est GFR (MDRD) Af Amer 7 L, Est GFR (MDRD) Non-Af 5 L, BUN/Creatinine Ratio 8.2 L, Glucose 188 H, Calcium 6.4 L*, Phosphorus 9.4 H*, Total Bilirubin 0.60, AST 97 H , ALT 298 H, Alkaline Phosphatase 78, Total Protein 6.4, Albumin 1.7 L, Globulin 4.7 H, Albumin/Globulin Ratio 0.4 L 07/31/22 08:18: POC Glucose 191 H Micro: Microbiology 07/29/22 13:03 Blood Culture (Wb) - Right Forearm Blood Culture - P reliminary Staphylococcus aureus 07/28/22 10:50 Blood Culture (Wb) - Pic Blood Culture - Preliminary Meth. resistant Staph. aureus Yeast 07/25/22 09:50 Blood Culture (Wb) - Anticubital Right Blood Culture - Final Staphylococcus aureus 07/27/22 13:05 Blood Culture (Wb) - Right Forearm Blood Culture - Preliminary No growth in 48 hours. 07/29/22 16:00 Stool C. difficile DNA Amplification - Final 07/24/22 10:40 Blood Culture (Wb) - Anticubital Right Blood Culture - Final No growth in 5 days. 07/22/22 16:39 Bone - Right Foot Gram Stain - Final 07/22/22 16:39 Bone - Right Foot Wound Culture - Final No growth aerobically. 07/22/22 16:39 Bone - Right Foot Anaerobic Culture - Final Anaerobic cocci 07/22/22 16:37 Wound Abcess - Right Foot Gram Stain - Final 07/22/22 16:37 Wound Abcess - Right Foot Wound Culture - Final Meth. resistant Staph. aureus 07/22/22 16:37 Wound Abcess - Right Foot Anaerobic Culture - Final Anaerobic cocci 07/22/22 16:35 Bone - Left Foot Gram Stain - Final 07/22/22 16:35 Bone - Left Foot Wound Culture - Final Meth. resistant Staph. aureus 07/22/22 16:35 Bone - Left Foot Anaerobic Culture - Final No anaerobic bacteria isolated. 07/22/22 16:32 Wound Abcess - Left Foot Gram Stain - Final 07/22/22 16:32 Wound Abcess - Left Foot Wound Culture - Final Meth. resistant Staph. aureus 07/22/22 16:32 Wound Abcess - Left Foot Anaerobic Culture - Final No anaerobic bacteria isolated. 07/21/22 11:00 Wound - Left Foot Gram Stain - Final 07/21/22 11:00 Wound - Left Foot Wound Culture - Final Proteus mirabilis Kocuria kristinae 07/21/22 11:00 Wound - Left Foot Anaerobic Culture - Final Bacteroides thetaiotaomicron 07/21/22 09:30 Bone - Left Foot Gram Stain - Final 07/21/22 09:30 Bone - Left Foot Wound Culture - Final Proteus mirabilis Kocuria kristinae 07/21/22 09:30 Bone - Left Foot Anaerobic Culture - Final Bacteroides thetaiotaomicron Anaerobic cocci 07/23/22 10:50 Blood Culture (Wb) - Right Hand Blood Culture - Final Meth. resistant Staph. aureus 07/22/22 09:50 Blood Culture (Wb) - Right Hand Blood Culture - Final Staphylococcus aureus 07/20/22 14:55 Blood Culture (Wb) - Anticubital Right Bacteria Detection (PCR) - Final Meth. resistant Staph. aureus 07/20/22 14:55 Blood Culture (Wb) - Anticubital Right Blood Culture - Final Meth. resistant Staph. aureus 07/20/22 14:45 Blood Culture (Wb) - Left Hand Blood Culture - Final Staphylococcus aureus 07/20/22 18:10 Urine, Catheterized Urine Culture - Final Citrobacter freundii 07/20/22 19:47 Mucosa - Nasopharyngeal Respiratory Panel (PCR) - Final 07/20/22 18:10 Urine, Random Legionella Antigen - Final 07/20/22 18:10 Urine, Random Streptococcus pneumoniae Antigen (M - Final 07/20/22 13:55 Nasal Secretion SARS-CoV-2 & FLU Antigen (Rapid) - Final Physical Exam Narrative Patient responsive to painful stimuli today. NV status unchanged, improved edema on right. Derm: Full thickness wound to plantar midfoot, probes to bone, no acute signs of infection. Full thickness wound to plantar left forefoot x2. Plantar 2nd and 4th metatarsal heads, both probe to bone, some edema to 2nd digit. No residual purulence or other signs of acute infection. Const well nourished HEENT normocephalic Assessment & Plan Assessment/Plan (1) Non-pressure chronic ulcer of other part of right foot with fat layer exposed: PLAN: Exam performed. Persistent leukocytosis worsening to 31.8, patient on vasopressors to assist BP managment, hospitalist suggest from hemodynamic shift. Patient with significant ZACARIAS w/ ATN, Cr>8 2/2 to sepsis vs vancomycin. He is undergoing dialysis. Duplex +DVT RLE - heparin Wounds clinically today demonstrate healthy bases with minimal signs of acute infection. Bone cultures to right side were negative, bone cultures on left side grew MRSA. Left foot appears to be source of infection. MRI did confirm osteomyelitis on left to 2nd digit, 2nd metatarsal and 3rd metatarsal with a large plantar abscess. Initially, Dr. Babin was hoping that decompression of the abscess with bone biopsy/culture in combination with IV antibiotics would significant improve infection status. Due to continued issues and confirmed osteomyelitis to multiple site in left foot, Dr. Babin and I would recommend transmetatarsal amputation on the left for definitive infection clearance. Historically he has refused any previous surgical intervention involving amputation. Will likely await dialysis to see if improvement in mentation to discuss with patient. I attempted to discuss transmetatarsal amputation of the left foot with the patient today and at times he seemed confused and stated I understand I may have to lose part of the foot and I want this to be done, but then would also state I do not want to lose part of my foot and I do not want it done. I will again attempt to discuss with him further as his confusion improves. Vital signs stable at current. Patient on bipap and levophed. persistent leukocytosis noted at 31.8. Patient had 2D echo (07/29/2022) demonstrating vegetations on the aortic valve. Nursing informs me they are looking to transfer patient to tertiary facility to undergo treatment with a surgeon. Currently awaiting bed at [facility] for definitive evaluation. Given his need for transfer and treatment the left foot TMA may need to be p erformed in outpatient setting. Infectious diseases following. Blood cultures growing yeast/MRSA. ID considering line holiday. Patient receiving IV daptomycin/zosyn and micafugin. Patient will require prolonged NWB to bilateral feet on transfer and discharge. Right foot Charcot arthropathy involving midfoot with plantar ulceration and left foot plantar ulceration Host factors: DM type II A1c 11.2%, Charcot arthropathy right midfoot, acute kidney injury likely secondary to ATN, obesity, hypertension/hyperlipidemia- complicates healing Recommend SNF once stable. Will continue to follow closely. Please do not hesitate to call for any questions or concerns Rell Acevedo Jr. D.P.M[facility] [phone] Note: [employer] speech recognition recreation center director software was used to create portions of this document. Sound-alike and misspelled words, as well as other recreation center director errors may be contained in the documentation. (2) Non-pressure chronic ulcer of other part of left foot with necrosis of bone: (3) Charcot's joint of right foot: (4) Type 2 diabetes mellitus with diabetic polyneuropathy: (5) Osteomyelitis of left foot:
[2022-07-31 15:38] LABS: Pathologist Review Reviewed
[2022-07-31 17:05] LABS: Bedside Glucose 193 mg/dL (74-106)
--- NOTE | 2022-07-31 21:47 | ED.RN ---
brother monique updated on pt condition and advised that pt will be transported tonight.
[2022-07-31 22:20] LABS: Bedside Glucose 143 mg/dL (74-106)
[2022-07-31 22:45] LABS: Bedside Glucose 210 mg/dL (74-106)
[2022-08-01] VITALS (8 sets, daily range): BP systolic 110–156; BP diastolic 44–93; PULSE 83–94; RESP 12–27; TEMP 36.6; O2SAT 93–97
[2022-08-01 04:04] LABS: Absolute Lymphocyte Count 0.84 X10^3/uL (0.83-4.51); Absolute Neutrophil Count 21.9 X10^3/uL (2.0-7.7); Basophil# 0.07 X10^3/uL; Basophil% 0.3 % (0-1); Hematocrit 35.1 % (40-54); Hemoglobin 11.2 g/dL (13.0-16.5); Lymphocyte # 0.84 X10^3/ul (0.83-4.51); Lymphocyte % 3.4 % (19-41); Mean Corp Hgb Conc 31.9 g/dL (32-36); Mean Corpuscular Hgb 26.6 pg (27.0-32.0); Mean Corpuscular Volume 83.4 fL (80-94); Mean Platelet Vol. 11.9 fl (6.2-12.0); Monocyte# 0.74 X10^3/uL; NRBC Flagged by Analyzer 0 % (0-5); Neutrophil # 21.94 X10^3/uL (2.7-7.7); Neutrophil % 89.7 % (47-70); POSITIVE DIFFERENTIAL YES; Platelet Count 100 K/mm3 (150-450); RBC Distribution Width CV 17.8 % (11.6-14.6); RBC Distribution Width SD 49.1 fl (35.1-43.9); Red Blood Count 4.21 M/mm3 (4.6-6.2); White Blood Count 24.5 K/mm3 (4.4-11.0)
[2022-08-01 04:07] LABS: Differential Indicated SCAN CRITERIA MET
[2022-08-01 04:53] LABS: ALB/GLOB Ratio 0.3 RATIO (0.9-2.4); AST(SGOT) 79 U/L (15-37); Alanine Aminotransfer ALT/SGPT 210 U/L (16-61); Albumin, Serum 1.6 g/dL (3.2-5.0); Alkaline Phosphatase 84 U/L (45-117); Anion Gap 18 (5-15); BUN 67 mg/dL (7-18); Calcium,Total 6.4 mg/dL (8.5-10.1); Chloride 102 mmol/L (98-107); Creatinine, Serum 9.52 mg/dL (0.70-1.30); EST Glomerular Filtration Rate 6 mL/min (>60); Est Glom Filt Rate - Afr Amer 8 mL/min (>60); Estimated Creatinine Clearance 9.37 ml/min; Globulin 4.8 g/dL (2.2-4.2); Glucose 218 mg/dL (74-106); Potassium 3.9 mmol/L (3.5-5.1); Protein, Total 6.4 g/dL (6.4-8.2); Sodium Level 139 mmol/L (136-145)
[2022-08-01 05:38] LABS: Differential Comment SCANNED
--- NOTE | 2022-08-01 06:25 | PCM.PN.INT ---
Assessment & Plan Assessment/Plan (1) Sepsis: PLAN: Plan RECOMMENDATIONS: 1. Antimicrobials per infectious diseases. 2. Continue local wound care. Podiatry considering possible amputation when more stable 3. Okay to discontinue Levophed 4. Plan was for dialysis today with line holiday. Defer to [facility] 5. Continue with modified p.o. 6. Await transfer to a tertiary center for aortic valve evaluation 7. Transfer to [facility] later today IMPRESSIONS: 1. Septic shock with aortic valve vegetation/fungemia The patient presented to the hospital with sepsis due to osteomyelitis with secondary MRSA, among others, bacteremia and acute sepsis related organ dysfunction as evidenced by lactic acidemia and hemodynamic instability requiring vasopressor support. The patient remains on antimicrobials under the discretion of infectious diseases, but continues to have persistently positive blood cultures. The patient did ultimately undergo surgical debridement under the discretion of podiatry on July 22, but podiatry is suggesting that an amputation may be necessary. Echocardiogram did not reveal any valvular vegetations initially, but repeat echo shows an aortic valve vegetation. Patient to go to [facility] later today. Patient with fungemia and will require a line holiday. Initial plan was to do dialysis today with line holiday on Wednesday. We will have to defer to [facility]. 2. Acute kidney injury Most likely prerenal in etiology in the setting of #1, with gradual evolution to ATN. Nephrology is following to assist with medical management. Renal ultrasound was unremarkable. Continue dialysis support per nephrology recommendations. Patient would benefit from volume removal if possible. Patient may require some bicarbonate, but defer to nephrology. Patient to have hemodialysis line removed for line holiday. Will likely need a tunneled hemodialysis line as patient has not had significant improvement in renal function. 3. Encephalopathy Appears close to baseline. Most likely metabolic in etiology and related to underlying infection and renal dysfunction. The patient does have a tendency to retain CO2. Therefore, BiPAP therapy will be appropriate with naps and sleep. I would strongly advise against the use of morphine in a patient with underlying renal dysfunction. Out of bed as tolerated to possible. Off Precedex. 4. Chronic tobacco dependency without diagnosis of COPD Although the patient has a longstanding tobacco abuse history, he denied ever having been diagnosed with COPD. It is reasonable to continue as needed bronchodilator therapy. Recommend weaning supplemental oxygen as tolerated for saturations greater than 90%. Nicotine replacement therapy can be offered to the patient while admitted to the hospital. 5. History of osteomyelitis with Charcot arthropathy/hypertension/hyperlipidemia/morbid obesity/diabetes mellitus Complicates care, management, recovery and prognosis. Continue sliding scale insulin coverage. Subjective Subjective Patient did well overnight from a hemodynamic standpoint. Patient did have hemodialysis yesterday and tolerated well without need for pressors. Patient has been doing well on room air. Objective Data Objective Data Vital Signs: Vital Signs Temp Pulse Resp BP Pulse Ox O2 Del Method O2 Flow Rate 36.6 C 84 23 H 135/45 H 93 Room Air 2 08/01/22 04:00 08/01/22 05:00 08/01/22 05:00 08/01/22 05:00 08/01/22 05:00 08/01/22 05:00 07/29/22 16:00 FiO2 35 08/01/22 01:00 Oxygen Flow Rate (L/min) 2 Oxygen Delivery Method Room Air Weight: 180.5 kg Body Mass Index (BMI) 55.0 Intake & Output: Intake and Output for Last 24 Hours 07/30/22 07/31/22 08/01/22 23:59 23:59 23:59 Intake Total 296.75 / 296.75 668.3334 / 668.3334 50 / 50 Output Total 0 / 0 0 / 0 0 / 0 Balance 296.75 / 296.75 668.3334 / 668.3334 50 / 50 Lab / Micro Data Attestation: I reviewed the patient's lab results. Result Diagrams: 08/01/22 03:35 08/01/22 03:35 Labs: Laboratory Results - last 24 hr 07/30/22 03:20: Diff Path Review Reviewed 07/31/22 03:40: Diff Path Review Reviewed 07/31/22 08:18: POC Glucose 191 H 07/31/22 11:29: POC Glucose 143 H 07/31/22 16:39: POC Glucose 193 H 07/31/22 22:13: POC Glucose 210 H 08/01/22 03:35: WBC 24.5 H, RBC 4.21 L, Hgb 11.2 L, Hct 35.1 L, MCV 83.4, MCH 26.6 L, MCHC 31.9 L, RDW Std Deviation 49.1 H, RDW Coeff of Maria Fernanda 17.8 H, Plt Count 100 L, MPV 11.9, Immature Gran % (Auto) 3.600 H, Neut % (Auto) 89.7 H, Lymph % (Auto) 3.4 L, [place] % (Auto) 3.0, Eos % (Auto) 0.0, Baso % (Auto) 0.3, Absolute Neuts (auto) 21.9 H, Absolute Lymphs (auto) 0.84, Nucleated RBC % 0, Differential Comment SCANNED 08/01/22 03:35: Sodium 139, Potassium 3.9, Chloride 102, Carbon Dioxide 19.0 L, Anion Gap 18 H, BUN 67 H, Creatinine 9.52 H*, Estim Creat Clear Calc 9.37, Est GFR (MDRD) Af Amer 8 L, Est GFR (MDRD) Non-Af 6 L, BUN/Creatinine Ratio 7.0 L, Glucose 218 H, Calcium 6.4 L*, Phosphorus 8.0 H, Total Bilirubin 0.80, AST 79 H, ALT 210 H, Alkaline Phosphatase 84, Total Protein 6.4, Albumin 1.6 L, Globulin 4.8 H, Albumin/Globulin Ratio 0.3 L Micro: Microbiology 07/30/22 11:10 Blood Culture (Wb) - Pic Bacteria Detection (PCR) - Preliminary Staphylococcus aureus 07/30/22 11:10 Blood Culture (Wb) - Pic Blood Culture - Preliminary 07/29/22 13:03 Blood Culture (Wb) - Right Forearm Blood Culture - Preliminary Staphylococcus aureus 07/28/22 10:50 Blood Culture (Wb) - Pic Blood Culture - Preliminary Meth. resistant Staph. aureus Yeast 07/25/22 09:50 Blood Culture (Wb) - Anticubital Right Blood Culture - Final Staphylococcus aureus 07/27/22 13:05 Blood Culture (Wb) - Right Forearm Blood Culture - Preliminary No growth in 48 hours. 07/29/22 16:00 Stool C. difficile DNA Amplification - Final 07/24/22 10:40 Blood Culture (Wb) - Anticubital Right Blood Culture - Final No growth in 5 days. 07/22/22 16:39 Bone - Right Foot Gram Stain - Final 07/22/22 16:39 Bone - Right Foot Wound Culture - Final No growth aerobically. 07/22/22 16:39 Bone - Right Foot Anaerobic Culture - Final Anaerobic cocci 07/22/22 16:37 Wound Abcess - Right Foot Gram Stain - Final 07/22/22 16:37 Wound Abcess - Right Foot Wound Culture - Final Meth. resistant Staph. aureus 07/22/22 16:37 Wound Abcess - Right Foot Anaerobic Culture - Final Anaerobic cocci 07/22/22 16:35 Bone - Left Foot Gram Stain - Final 07/22/22 16:35 Bone - Left Foot Wound Culture - Final Meth. resistant Staph. aureus 07/22/22 16:35 Bone - Left Foot Anaerobic Culture - Final No anaerobic bacteria isolated. 07/22/22 16:32 Wound Abcess - Left Foot Gram Stain - Final 07/22/22 16:32 Wound Abcess - Left Foot Wound Culture - Final Meth. resistant Staph. aureus 07/22/22 16:32 Wound Abcess - Left Foot Anaerobic Culture - Final No anaerobic bacteria isolated. 07/21/22 11:00 Wound - Left Foot Gram Stain - Final 07/21/22 11:00 Wound - Left Foot Wound Culture - Final Proteus mirabilis Kocuria kristinae 07/21/22 11:00 Wound - Left Foot Anaerobic Culture - Final Bacteroides thetaiotaomicron 07/21/22 09:30 Bone - Left Foot Gram Stain - Final 07/21/22 09:30 Bone - Left Foot Wound Culture - Final Proteus mirabilis Kocuria kristinae 07/21/22 09:30 Bone - Left Foot Anaerobic Culture - Final Bacteroides thetaiotaomicron Anaerobic cocci 07/23/22 10:50 Blood Culture (Wb) - Right Hand Blood Culture - Final Meth. resistant Staph. aureus 07/22/22 09:50 Blood Culture (Wb) - Right Hand Blood Culture - Final Staphylococcus aureus 07/20/22 14:55 Blood Culture (Wb) - Anticubital Right Bacteria Detection (PCR) - Final Meth. resistant Staph. aureus 07/20/22 14:55 Blood Culture (Wb) - Anticubital Right Blood Culture - Final Meth. resistant Staph. aureus 07/20/22 14:45 Blood Culture (Wb) - Left Hand Blood Culture - Final Staphylococcus aureus 07/20/22 18:10 Urine, Catheterized Urine Culture - Final Citrobacter freundii 07/20/22 19:47 Mucosa - Nasopharyngeal Respiratory Panel (PCR) - Final 07/20/22 18:10 Urine, Random Legionella Antigen - Final 07/20/22 18:10 Urine, Random Streptococcus pneumoniae Antigen (M - Final 07/20/22 13:55 Nasal Secretion SARS-CoV-2 & FLU Antigen (Rapid) - Final Physical Exam Const alert and no apparent distress General Appearance: cooperative Nutritional Appearance: morbidly obese HEENT normocephalic, head/scalp atraumatic and moist oral mucous membranes Eyes PERRL, EOMs intact bilaterally and conjunctivae normal Neck supple General: trachea midline and CVC in place Chest inspection of chest normal Resp Auscultation: diminished lung sounds; Negative for rales, rhonchi or wheezes Cardio regular rate, regular rhythm, S1 normal heart sound, S2 normal heart sound, no rub and no gallops Heart Sounds: murmur systolic II/ soft early left sternal border GI normal to inspection, nondistended, normoactive bowel sounds Extremity Extremity Narrative: Wrapped lower extremities. General Extremity: edema; Negative for clubbing Skin General Skin Exam: venous stasis and dermatitis Neuro CN's II-XII intact bilaterally, moves all extremities and no focal motor deficits Psych Psych Narrative: Patient directable when in the room, but intermittently impulsive when left alone Activity / Motor Behavior: restless Charges/Coding Visit Charges Inpatient E&M: 26399 Subs Hosp L2
--- NOTE | 2022-08-01 08:10 | CASEMGMT ---
Addendum entered by Sherin Jenkins 08/01/22 08:16: Social Work Correction to note below: ALLISON notified [facility] by voicemail, not through [employer]. WENCESLAO Allen Original Note: Social Work Pt was transferred to [facility]. SW notified [facility] via [employer]. WENCESLAO Allen
--- NOTE | 2022-08-01 09:55 | DS.PCM_ITS ---
Providers Date of Admission: 07/20/22 Date of Discharge: 08/01/22 Primary Care Physician: Dr. Gavin Raymundo MD Consultations 07/20/22 21:32 Consult: Infectious Disease Routine Consulting Provider: Stoney Soto Reason for Consult: Pneumonia versus met disease, BL caviatary lung lesions EMERGENT Consult: No MD Notified: Yes Date Notified: 07/21/22 Time Notified: 09:29 Method of Notification: Answering Service Consult: Wire Rigger / Pulmonary Medicine Routine Consulting Provider: Joseph Hernandez Reason for Consult: Hypoxia, PNA versus met disease, BL cavitary lung lesions. EMERGENT Consult: No MD Notified: Yes Date Notified: 07/20/22 Time Notified: 18:14 Method of Notification: Text Consult: Onc/Wound/plant anatomist Routine Comment: Reason for Consult:: R foot wound 07/21/22 09:38 Consult: Podiatry Routine Consulting Provider: Eagle Babin Reason for Consult: deep wounds EMERGENT Consult: No MD Notified: Yes Date Notified: 07/21/22 Time Notified: 09:38 Method of Notification: Verbal 07/23/22 06:41 Consult: Nephrology Routine Consulting Provider: Karen Arriola Reason for Consult: ZACARIAS EMERGENT Consult: No MD Notified: Yes Date Notified: 07/23/22 Time Notified: 07:55 Method of Notification: Answering Service Reason For Visit: HYPOXIA, PNA/CAVITARY LESIONS Diagnosis Discharge Diagnosis (1) Sepsis: Status: Acute Code(s): A41.9 - Sepsis, unspecified organism Plan 1. 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 Acute combined respiratory failure, likely secondary to septic emboli, resolved Wire Rigger following 3. Acute right popliteal, tibioperoneal trunk and gastrocnemius vein DVT 4. Acute kidney injury likely secondary to ATN from above 5. Acute metabolic encephalopathy secondary to above #1 and 4 6. Hypertension 7. Type II DM 8. GERD 9. KRYSTAL Medications at Discharge Home Medications Handicap Placard #1 ea 12/05/20 albuterol sulfate 90 mcg/actuation aerosol inhaler 1 - 2 puff inhalation Q6H PRN shortness of breath or wheezing #8.5 grams 04/28/22 blood sugar diagnostic (Blood Glucose Test strips) #100 ea 04/28/22 blood-glucose meter #1 ea 04/28/22 dulaglutide 3 mg/0.5 mL subcutaneous pen injector (Trulicity) 3 mg (0.5 mL) subcut TU diabetes #6 mL 04/28/22 lancets 32 gauge #100 ea 04/28/22 metformin 1,000 mg tablet 1,000 mg PO BID diabetes #180 tabs 04/28/22 miscellaneous medical supply (Blood Pressure Cuff) #1 ea 04/28/22 sitagliptin phosphate 100 mg tablet 100 mg PO DAILY diabetes #90 tabs 04/28/22 tadalafil 5 mg tablet 5 mg PO ONCE PRN sexual activity #14 tabs 05/06/22 lisinopril 20 mg tablet 20 mg PO DAILY BLOOD PRESSURE 07/20/22 Hospital Course Operations None Procedures 2-D Echocardiogram Summary of Care Provided Minutes Spent on Discharge: 50 Hospital Course: 30-year-old male with multiple co-morbidities including morbid obesity, type 2 diabetes, hypertension, KRYSTAL, history of sarcoid arthroplasty, chronic bilateral foot ulcers, status post TMA, follows in the wound clinic with podiatry. Patient came in with cough and shortness of breath and was found to have atypical pneumonia suggestive of probable septic emboli. Patient patient has had a long and protracted hospital course. His management was as follows: 1. 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 Acute combined respiratory failure, likely secondary to septic emboli, resolved, off oxygen Continue with antibiotics, breathing treatments Wire Rigger following 3. Acute right popliteal, tibioperoneal trunk and gastrocnemius vein DVT, managed on heparin drip 4. Acute kidney injury likely secondary to ATN from above Admitting creatinine was 1.29. Started on hemodialysis on 07/25/2021 5. Acute metabolic encephalopathy secondary to above #1 and 4, waxes and wanes Continued on Seroquel 6. Type II DM, HbA1c is 11.2, blood sugars remain fairly controlled, Continue Lantus 5 units BID, continued on medium to high dose insulin sliding scale with blood glucose checks 8. Rest of chronic medical conditions including GERD/KRYSTAL, complicates care Managed on famotidine IV 20mg daily Physical Exam Narrative Physical exam: General: Alert, sedated, Cooperative, morbidly obese, off oxygen HEENT: Atraumatic Oral: Moist Mucosa Neck: Supple Lungs: Diminished to auscultation Cardiovascular: HS I+II, regular, no murmurs Abdomen: Bowel Sounds Present, Soft, Non Tender Extremities: Jens wraps to both lower extremities, duskiness of toes Skin: No rashes, No breakdown Neurological: Grossly intact Psych/Mental Status: Appropriate Weight / BMI Weight Weight: 180.5 kg Body Mass Index (BMI) 55.0 ABG / Lab / Microbiology Data Result Diagrams: 08/01/22 03:35 08/01/22 03:35 Laboratory: Laboratory Results - last 24 hr 07/30/22 03:20: Diff Path Review Reviewed 07/31/22 03:40: Diff Path Review Reviewed 07/31/22 11:29: POC Glucose 143 H 07/31/22 16:39: POC Glucose 193 H 07/31/22 22:13: POC Glucose 210 H 08/01/22 03:35: WBC 24.5 H, RBC 4.21 L, Hgb 11.2 L, Hct 35.1 L, MCV 83.4, MCH 26.6 L, MCHC 31.9 L, RDW Std Deviation 49.1 H, RDW Coeff of Maria Fernanda 17.8 H, Plt Count 100 L, MPV 11.9, Immature Gran % (Auto) 3.600 H, Neut % (Auto) 89.7 H, Lymph % (Auto) 3.4 L, Harney % (Auto) 3.0, Eos % (Auto) 0.0, Baso % (Auto) 0.3, Absolute Neuts (auto) 21.9 H, Absolute Lymphs (auto) 0.84, Nucleated RBC % 0, Differential Comment SCANNED 08/01/22 03:35: Sodium 139, Potassium 3.9, Chloride 102, Carbon Dioxide 19.0 L, Anion Gap 18 H, BUN 67 H, Creatinine 9.52 H*, Estim Creat Clear Calc 9.37, Est GFR (MDRD) Af Amer 8 L, Est GFR (MDRD) Non-Af 6 L, BUN/Creatinine Ratio 7.0 L, Glucose 218 H, Calcium 6.4 L*, Phosphorus 8.0 H, Total Bilirubin 0.80, AST 79 H, ALT 210 H, Alkaline Phosphatase 84, Total Protein 6.4, Albumin 1.6 L, Globulin 4.8 H, Albumin/Globulin Ratio 0.3 L Microbiology: Microbiology 07/30/22 11:10 Blood Culture (Wb) - Pic Bacteria Detection (PCR) - Final Staphylococcus aureus mecA Resistance Marker 07/30/22 11:10 Blood Culture (Wb) - Pic Blood Culture - Preliminary Meth. resistant Staph. aureus 07/29/22 13:03 Blood Culture (Wb) - Right Forearm Blood Culture - Preliminary Staphylococcus aureus 07/28/22 10:50 Blood Culture (Wb) - Pic Blood Culture - Preliminary Meth. resistant Staph. aureus Yeast 07/25/22 09:50 Blood Culture (Wb) - Anticubital Right Blood Culture - Final Staphylococcus aureus 07/27/22 13:05 Blood Culture (Wb) - Right Forearm Blood Culture - Preliminary No growth in 48 hours. 07/29/22 16:00 Stool C. difficile DNA Amplification - Final 07/24/22 10:40 Blood Culture (Wb) - Anticubital Right Blood Culture - Final No growth in 5 days. 07/22/22 16:39 Bone - Right Foot Gram Stain - Final 07/22/22 16:39 Bone - Right Foot Wound Culture - Final No growth aerobically. 07/22/22 16:39 Bone - Right Foot Anaerobic Culture - Final Anaerobic cocci 07/22/22 16:37 Wound Abcess - Right Foot Gram Stain - Final 07/22/22 16:37 Wound Abcess - Right Foot Wound Culture - Final Meth. resistant Staph. aureus 07/22/22 16:37 Wound Abcess - Right Foot Anaerobic Culture - Final Anaerobic cocci 07/22/22 16:35 Bone - Left Foot Gram Stain - Final 07/22/22 16:35 Bone - Left Foot Wound Culture - Final Meth. resistant Staph. aureus 07/22/22 16:35 Bone - Left Foot Anaerobic Culture - Final No anaerobic bacteria isolated. 07/22/22 16:32 Wound Abcess - Left Foot Gram Stain - Final 07/22/22 16:32 Wound Abcess - Left Foot Wound Culture - Final Meth. resistant Staph. aureus 07/22/22 16:32 Wound Abcess - Left Foot Anaerobic Culture - Final No anaerobic bacteria isolated. 07/21/22 11:00 Wound - Left Foot Gram Stain - Final 07/21/22 11:00 Wound - Left Foot Wound Culture - Final Proteus mirabilis Kocuria kristinae 07/21/22 11:00 Wound - Left Foot Anaerobic Culture - Final Bacteroides thetaiotaomicron 07/21/22 09:30 Bone - Left Foot Gram Stain - Final 07/21/22 09:30 Bone - Left Foot Wound Culture - Final Proteus mirabilis Kocuria kristinae 07/21/22 09:30 Bone - Left Foot Anaerobic Culture - Final Bacteroides thetaiotaomicron Anaerobic cocci 07/23/22 10:50 Blood Culture (Wb) - Right Hand Blood Culture - Final Meth. resistant Staph. aureus 07/22/22 09:50 Blood Culture (Wb) - Right Hand Blood Culture - Final Staphylococcus aureus 07/20/22 14:55 Blood Culture (Wb) - Anticubital Right Bacteria Detection (PCR) - Final Meth. resistant Staph. aureus 07/20/22 14:55 Blood Culture (Wb) - Anticubital Right Blood Culture - Final Meth. resistant Staph. aureus 07/20/22 14:45 Blood Culture (Wb) - Left Hand Blood Culture - Final Staphylococcus aureus 07/20/22 18:10 Urine, Catheterized Urine Culture - Final Citrobacter freundii 07/20/22 19:47 Mucosa - Nasopharyngeal Respiratory Panel (PCR) - Final 07/20/22 18:10 Urine, Random Legionella Antigen - Final 07/20/22 18:10 Urine, Random Streptococcus pneumoniae Antigen (M - Final 07/20/22 13:55 Nasal Secretion SARS-CoV-2 & FLU Antigen (Rapid) - Final D/C Instructions Discharge Diet: 1800 Calorie Control Diet and Renal Diet Meaningful Use Info Meaningful Use Diagnoses (Choose all that apply): None applicable Discharge Plan Admission Admit Date/Time: 07/20/22 18:12 Attending Provider: Sweetie Rutledge Primary Care Provider: Gavin Raymundo Consulting Providers: Missy Singh ; Stoney Soto ; Joseph Hernandez ; Eagle Babin ; Karen Arriola ; Justin Al Discharge Orders/Prescriptions Prescriptions: No Action (DME) Handicap Manolo See Rx Instructions .ROUTE .MEDSUPPLY Qty: 1 0RF Rx Instructions: As directed, length of time 3 years Trulicity 3 mg/0.5 mL pen injector 3 mg SUBCUT TU Qty: 6 1RF metformin 1,000 mg tablet 1,000 mg PO BID Qty: 180 1RF (DME) Blood Glucose Test Strip See Rx Instructions .ROUTE .MEDSUPPLY Qty: 100 11RF Rx Instructions: use as directed twice daily to monitor blood glucose for type 2 DM (DME) blood-glucose meter Misc See Rx Instructions .ROUTE .MEDSUPPLY Qty: 1 0RF Rx Instructions: use as directed twice daily to monitor blood glucose for type 2 DM (DME) lancets 32 gauge misc See Rx Instructions .Route Qty: 100 11RF Rx Instructions: use as directed twice daily to monitor blood glucose for type 2 DM (DME) Blood Pressure Cuff Misc See Rx Instructions .Route Qty: 1 0RF Rx Instructions: Check blood pressure daily sitagliptin phosphate 100 mg tablet 100 mg PO DAILY Qty: 90 0RF albuterol sulfate 90 mcg/actuation HFA aerosol inhaler 1 - 2 puff inhalation Q6H PRN (Reason: shortness of breath or wheezing) Qty: 8.5 0RF tadalafil 5 mg tablet 5 mg PO ONCE PRN (Reason: sexual activity) Qty: 14 1RF Rx Instructions: administer approximately 30min before sexual activity; do not use more than 1 dose per 24hrs lisinopril 20 mg tablet 20 mg PO DAILY Referrals / Follow Up: Gavin Raymundo MD [Primary Care Provider] - Disposition Disposition (needs filled in before D/C Order can be placed): Acute Care Hosp ital Charges/Coding Visit Charges Inpatient E&M: 40726 Disch Hosp >30min
== END 2022-08-01 07:10 | disposition short-term general hospital (02) | DRG 710 ==
LOC: ED 18:44 → ICU 19:08
PROVIDERS: Emergency Medicine; Internal Medicine; Internal Medicine Critical Care Medicine; Internal Medicine Infectious Disease; Internal Medicine Nephrology; Podiatrist; Student in an Organized Health Care Education/Training Program; Admitting Provider Family Medicine; Emergency Provider Student in an Organized Health Care Education/Training Program; PCP Internal Medicine; Visit Provider Internal Medicine
PROC: 0KBW0ZZ Excision of Left Foot Muscle, Open Approach (ICD-10-PCS; principal; 2022-07-22 14:30)
DX: A41.02 Sepsis due to Methicillin resistant Staphylococcus aureus (principal); N17.0 Acute kidney failure with tubular necrosis; J96.01 Acute respiratory failure with hypoxia; R65.21 Severe sepsis with septic shock; I33.0 Acute and subacute infective endocarditis; E87.1 Hypo-osmolality and hyponatremia; J18.9 Pneumonia, unspecified organism; J96.02 Acute respiratory failure with hypercapnia; E11.610 Type 2 diabetes mellitus with diabetic neuropathic arthropathy; E11.42 Type 2 diabetes mellitus with diabetic polyneuropathy; E11.59 Type 2 diabetes mellitus with other circulatory complications; E66.01 Morbid (severe) obesity due to excess calories; Z68.43 Body mass index [BMI] 50.0-59.9, adult; Z79.4 Long term (current) use of insulin; E11.621 Type 2 diabetes mellitus with foot ulcer; L97.524 Non-pressure chronic ulcer of other part of left foot with necrosis of bone; L97.514 Non-pressure chronic ulcer of other part of right foot with necrosis of bone; J44.0 Chronic obstructive pulmonary disease with (acute) lower respiratory infection; Z99.2 Dependence on renal dialysis; I82.461 Acute embolism and thrombosis of right calf muscular vein; I82.452 Acute embolism and thrombosis of left peroneal vein; I82.432 Acute embolism and thrombosis of left popliteal vein; M86.171 Other acute osteomyelitis, right ankle and foot; G93.41 Metabolic encephalopathy; E87.6 Hypokalemia; E78.5 Hyperlipidemia, unspecified; K21.9 Gastro-esophageal reflux disease without esophagitis; I87.8 Other specified disorders of veins; I10 Essential (primary) hypertension; G47.33 Obstructive sleep apnea (adult) (pediatric); F17.210 Nicotine dependence, cigarettes, uncomplicated; I35.8 Other nonrheumatic aortic valve disorders; L02.612 Cutaneous abscess of left foot; Z79.1 Long term (current) use of non-steroidal anti-inflammatories (NSAID); N39.0 Urinary tract infection, site not specified; E87.29 Other acidosis; R31.9 Hematuria, unspecified
CPT/HCPCS: 36415; 36569; 36600; 71045; 71046; 71275; 73630; 73718; 74230; 76770; 80048; 80053; 80069; 80076; 80202; 81001; 82550; 82570; 82803; 82962; 83036; 83605; 83735; 83880; 83935; 84100; 84300; 84484; 84540; 85025; 85379; 85610; 85730; 86160; 87040; 87070; 87075; 87077; 87086; 87088; 87149; 87176; 87186; 87205; 87340; 87428; 87449; 87493; 87633; 87641; 88304; 88307; 88311; 90937; 92610; 92611; 93005; 93306; 93308; 93923; 93970; 94002; 94003; 94640; 94762; 97110; 97162; 97166; 97530; 97535; 97802; 99252; 99285; 99406; J0878; J7030; J7040; J7050; Q9957; Q9967; A4216; C8929; G0257; G0463; J0712; J2405; J3490